=== PATIENT | male | born 1950 | race Caucasian/White ===

== ENCOUNTER 2016-06-26 09:12 | Inpatient (IN) | payer MEDICARE ==
[2016-06-26 09:48] LABS: Basophils % (A) 0 %; CH 29.3; CHCM 34.2; Eosinophils # (A) 0.1 k/uL (0-0.7); Eosinophils % (A) 2 %; HCT 36.6 % (39.0-53.0); HDW 2.64; HGB 12.4 gm/dL (13.0-17.5); Luc # (Auto) 0.25; Luc % (Auto) 3; Lymphocytes # (A) 2.1 k/uL (1.0-4.8); Lymphocytes % (A) 29 %; MCHC 33.8 g/dL (31.0-37.0); MCV 85.9 fL (80.0-100.0); Mean Platelet Volume 6.2; Monocytes # (A) 0.8 k/uL (0-1.0); Monocytes % (A) 11 %; Neutrophils # (A) 3.9 k/uL (1.3-7.7); Neutrophils % (A) 54 %; RBC 4.26 m/uL (4.30-5.90); WBC 7.2 k/uL (3.8-10.6); WBC (Perox) 7.52
[2016-06-26 09:52] LABS: Partial Thromboplastin Time 26.2 sec (22.0-30.0); Prothrombin Time 10.2 sec (9.0-12.0)
--- NOTE | 2016-06-26 09:56 | XR ---
EXAMINATION TYPE: XR chest 2V DATE OF EXAM: 06/26/2016 9:47 AM COMPARISON: 02/21/2016 INDICATION: TECHNIQUE: 2 view chest FINDINGS: The heart size is normal. The pulmonary vasculature is normal. The lungs are clear. IMPRESSION: 1. No acute pulmonary process.
[2016-06-26 10:00] LABS: ALT 17 U/L (21-72); AST 15 U/L (17-59); Alkaline Phosphatase 65 U/L (38-126); Anion Gap 12 mmol/L; Blood Urea Nitrogen 6 mg/dL (9-20); Calcium 9.2 mg/dL (8.4-10.2); Carbon Dioxide 20 mmol/L (22-30); Chloride 90 mmol/L (98-107); Glucose 126 mg/dL (74-99); Magnesium 1.7 mg/dL (1.6-2.3); Non-African American GFR(MDRD) >60 (>60 ml/min/1.73 sqM); Sodium 122 mmol/L (137-145); Total Bilirubin 0.5 mg/dL (0.2-1.3); Total Protein 7.1 g/dL (6.3-8.2)
--- NOTE | 2016-06-26 10:06 | ED ---
General Adult HPI - General Chief complaint: Chest Pain Stated complaint: Chest Pain Time Seen by Provider: 06/26/16 09:15 Source: patient, RN notes reviewed, old records reviewed Mode of arrival: wheelchair Limitations: no limitations - History of Present Illness Initial comments: This is a 65-year-old male here for evaluation. Patient presents here for evaluation of not feeling well. Weakness, nausea vomiting diarrhea. Occasional fevers. Chest pain and abdominal pain. Nausea. Patient states he has history of hiatal hernia and history of heart attack. Patient states he has not been feeling well for about a week and getting progressively worse. Patient at this time denies specific chest pain or shortness of breath. He states he may or may not have on and off fever at home. No modifying factors for symptoms - Related Data Home Medications Medication Instructions Recorded Confirmed ALPRAZolam [Xanax] 0.25 mg PO TID PRN 07/12/13 06/26/16 Carisoprodol [Soma] 350 mg PO TID PRN 07/12/13 06/26/16 Metoprolol Tartrate [Lopressor] 25 mg PO BID 07/12/13 06/26/16 Simvastatin [Zocor] 40 mg PO HS 07/12/13 06/26/16 Temazepam [Restoril] 30 mg PO HS PRN 07/12/13 06/26/16 Amitriptyline HCl 10 mg PO HS 01/26/16 06/26/16 Nitroglycerin Sl Tabs [Nitrostat] 0.4 mg SUBLINGUAL Q5M PRN 01/28/16 06/26/16 Brimonidine Tartrate [Alphagan P 1 drops BOTH EYES BID 02/20/16 06/26/16 0.2% Ophth Soln] Buta/APAP/Caf/Cod [id number] 1 cap PO Q8H PRN 02/20/16 06/26/16 [Fioricet w/Cod 87-069-90-30MG] Latanoprost [Xalatan 0.005%] 1 drop BOTH EYES HS 02/20/16 06/26/16 Aspirin [Adult Low Dose Aspirin EC] 81 mg PO BID 06/26/16 06/26/16 Losartan Potassium [Cozaar] 50 mg PO DAILY 06/26/16 06/26/16 Pantoprazole Sodium 40 mg PO BID 06/26/16 06/26/16 Sucralfate [Carafate] 1 gm PO BID 06/26/16 06/26/16 Previous Rx's Medication Instructions Recorded Ondansetron Odt [Zofran ODT] 4 mg PO Q8HR PRN #5 tab 02/21/16 Allergies Allergy/AdvReac Type Severity Reaction Status Date / Time No Known Allergies Allergy Verified 06/26/16 09:38 Review of Systems ROS Statement: Those systems with pertinent positive or pertinent negative responses have been documented in the HPI. ROS Other: All systems not noted in ROS Statement are negative. Past Medical History Past Medical History: Coronary Artery Disease (CAD), Chest Pain / Angina, Eye Disorder, GERD/Reflux, Hyperlipidemia, Hypertension, Myocardial Infarction ([place]) Additional Past Medical History / Comment(s): SVT with ablation, gastric ulcers , bilateral glaucoma, sinusitis, migraines, anemia, hiatal hernia chronic back pain, past fx ribs/sternum Last Myocardial Infarction Date:: 1999 History of Any Multi-Drug Resistant Organisms: None Reported Past Surgical History: Cardiac Ablation, Heart Catheterization With Stent Additional Past Surgical History / Comment(s): sinus surgery, cataracts bilaterally with lens implants, EGDs/colonoscopies, sinus surgery due to accident. Past Anesthesia/Blood Transfusion Reactions: No Reported Reaction Additional Past Anesthesia/Blood Transfusion Reaction / Comment(s): Pt has had past multiple transfusions without reaction. Date of Last Stent Placement:: 1999 Past Psychological History: No Psychological Hx Reported Additional Psychological History / Comment(s): Pt resides with his spouse. 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 He is independent. Smoking Status: Former smoker Past Alcohol Use History: None Reported Additional Past Alcohol Use History / Comment(s): Pt states he started smoking in 1993 and quit in 1999 Past Drug Use History: None Reported - Past Family History Father Additional Family Medical History / Comment(s): Father at the age of 68yrs from a ruptured aortic aneurysm. Mother Family Medical History: Hyperlipidemia, Hypertension Additional Family Medical History / Comment(s): Mother lived into her 80's. General Exam Limitations: no limitations General appearance: alert, in no apparent distress Head exam: Present: atraumatic, normocephalic, normal inspection Eye exam: Present: normal appearance, PERRL, EOMI. Absent: scleral icterus, conjunctival injection, periorbital swelling ENT exam: Present: normal exam, mucous membranes moist Neck exam: Present: normal inspection. Absent: tenderness, meningismus, lymphadenopathy Respiratory exam: Present: normal lung sounds bilaterally. Absent: respiratory distress, wheezes, rales, rhonchi, stridor Cardiovascular Exam: Present: regular rate, normal rhythm, normal heart sounds. Absent: systolic murmur, diastolic murmur, rubs, gallop, clicks GI/Abdominal exam: Present: soft, normal bowel sounds. Absent: distended, tenderness, guarding, rebound, rigid Extremities exam: Present: normal inspection, full ROM, normal capillary refill. Absent: tenderness, pedal edema, joint swelling, calf tenderness Back exam: Present: normal inspection Neurological exam: Present: alert, oriented X3, CN II-XII intact Psychiatric exam: Present: normal affect, normal mood Skin exam: Present: warm, dry, intact, normal color. Absent: rash Course Vital Signs 06/26/16 06/26/16 09:21 10:14 Temperature 97.8 F Pulse Rate 69 63 Respiratory 16 16 Rate Blood Pressure 168/83 150/79 O2 Sat by Pulse 99 97 Oximetry - Reevaluation(s) Reevaluation #1: 06/26/16 10:41 patient still weak, fatigued, lethargic EKG Findings - EKG Comments: EKG Findings:: EKG shows normal sinus rhythm rate of 66, MN 184, QRS 86, QTC 417 Medical Decision Making - Medical Decision Making 65 male to the ED for weakness, intractable NV, and dehydration, patient has hyponatemia and will keep for IV resuscitation - Lab Data Result diagrams: 06/26/16 09:25 06/26/16 09:25 Lab Results 06/26/16 06/26/16 06/26/16 Range/Units 09:25 09:25 09:25 WBC 7.2 (3.8-10.6) k/uL RBC 4.26 L (4.30-5.90) m/uL Hgb 12.4 L (13.0-17.5) gm/dL Hct 36.6 L (39.0-53.0) % MCV 85.9 (80.0-100.0) fL MCH 29.0 (25.0-35.0) pg MCHC 33.8 (31.0-37.0) g/dL RDW 14.0 (11.5-15.5) % Plt Count 437 (150-450) k/uL Neutrophils % 54 % Lymphocytes % 29 % Monocytes % 11 % Eosinophils % 2 % Basophils % 0 % Neutrophils # 3.9 (1.3-7.7) k/uL Lymphocytes # 2.1 (1.0-4.8) k/uL Monocytes # 0.8 (0-1.0) k/uL Eosinophils # 0.1 (0-0.7) k/uL Basophils # 0.0 (0-0.2) k/uL PT (9.0-12.0) sec INR (<1.1) APTT (22.0-30.0) sec Sodium 122 L (137-145) mmol/L Potassium 4.0 (3.5-5.1) mmol/L Chloride 90 L (98-107) mmol/L Carbon Dioxide 20 L (22-30) mmol/L Anion Gap 12 mmol/L BUN 6 L (9-20) mg/dL Creatinine 0.55 L (0.66-1.25) mg/dL Est GFR (MDRD) Af Amer >60 (>60 ml/min/1.73 sqM) Est GFR (MDRD) Non-Af >60 (>60 ml/min/1.73 sqM) Glucose 126 H (74-99) mg/dL Calcium 9.2 (8.4-10.2) mg/dL Magnesium 1.7 (1.6-2.3) mg/dL Total Bilirubin 0.5 (0.2-1.3) mg/dL AST 15 L (17-59) U/L ALT 17 L (21-72) U/L Alkaline Phosphatase 65 (38-126) U/L NT-Pro-B Natriuret Pep 74 pg/mL Total Protein 7.1 (6.3-8.2) g/dL Albumin 4.3 (3.5-5.0) g/dL Lipase 137 (23-300) U/L 06/26/16 Range/Units 09:25 WBC (3.8-10.6) k/uL RBC (4.30-5.90) m/uL Hgb (13.0-17.5) gm/dL Hct (39.0-53.0) % MCV (80.0-100.0) fL MCH (25.0-35.0) pg MCHC (31.0-37.0) g/dL RDW (11.5-15.5) % Plt Count (150-450) k/uL Neutrophils % % Lymphocytes % % Monocytes % % Eosinophils % % Basophils % % Neutrophils # (1.3-7.7) k/uL Lymphocytes # (1.0-4.8) k/uL Monocytes # (0-1.0) k/uL Eosinophils # (0-0.7) k/uL Basophils # (0-0.2) k/uL PT 10.2 (9.0-12.0) sec INR 1.0 (<1.1) APTT 26.2 (22.0-30.0) sec Sodium (137-145) mmol/L Potassium (3.5-5.1) mmol/L Chloride (98-107) mmol/L Carbon Dioxide (22-30) mmol/L Anion Gap mmol/L BUN (9-20) mg/dL Creatinine (0.66-1.25) mg/dL Est GFR (MDRD) Af Amer (>60 ml/min/1.73 sqM) Est GFR (MDRD) Non-Af (>60 ml/min/1.73 sqM) Glucose (74-99) mg/dL Calcium (8.4-10.2) mg/dL Magnesium (1.6-2.3) mg/dL Total Bilirubin (0.2-1.3) mg/dL AST (17-59) U/L ALT (21-72) U/L Alkaline Phosphatase (38-126) U/L NT-Pro-B Natriuret Pep pg/mL Total Protein (6.3-8.2) g/dL Albumin (3.5-5.0) g/dL Lipase (23-300) U/L - Radiology Data Radiology results: report reviewed (CXR is negative for acute disease), image reviewed Disposition Clinical Impression: Abdominal pain, Hyponatremia, Dehydration, Atypical chest pain, Intractable nausea and vomiting Disposition: ADMITTED IP TO THIS [facility] Condition: Fair Referrals: Garrison Yuen MD [Primary Care Provider] - 1-2 days
[2016-06-26 10:30] LABS: Creatine Kinase 54 U/L (55-170)
[2016-06-26] MEDS ORDERED: ONDANSETRON 4 MG/2 ML VIAL IVP STA (10:38)
[2016-06-26] MEDS ORDERED: SODIUM CHLORIDE 0.9% 1,000 ML IV STA ×2 (10:38)
[2016-06-26] MEDS ORDERED: PANTOPRAZOLE 40 MG/10 ML VIAL IVP STA (10:38)
[2016-06-26] MEDS ORDERED: MORPHINE SULFATE 4 MG/ML SYRINGE IVP STA (10:38)
[2016-06-26] MEDS ORDERED: SODIUM CHLORIDE 0.9% 500 ML IV STA (10:38)
[2016-06-26 10:42] LABS: Creatine Kinase MB 1.2 ng/mL (0.0-2.4); Troponin I <0.012 ng/mL (0.000-0.034)
[2016-06-26] MEDS ORDERED: NITROGLYCERIN SL TABS 0.4 MG TAB SUBLINGUAL PRN (14:43)
[2016-06-26] MEDS ORDERED: BUTA/APAP/CAF/COD 50-325-40-30 CAP PO PRN (14:43)
[2016-06-26] MEDS ORDERED: CARISOPRODOL 350 MG TAB PO PRN (14:43)
[2016-06-26 14:48] VITALS: BMI 24.4
[2016-06-26] MEDS: MORPHINE SULFATE 4 MG/ML SYRINGE IVP PRN ×3 (15:12→23:28)
[2016-06-26] MEDS: ONDANSETRON 4 MG/2 ML VIAL IVP PRN (17:57)
[2016-06-26] MEDS: METOPROLOL TARTRATE 25 MG TAB PO SCH (20:18)
[2016-06-26] MEDS: ASPIRIN 81 MG CHEW PO SCH (20:18)
[2016-06-26] MEDS: ALPRAZolam 0.25 MG TAB PO PRN (20:23)
[2016-06-26] MEDS ORDERED: LATANOPROST 0.005% OPHTH DROPS 2.5 ML BTL BOTH EYES SCH (21:00)
[2016-06-26] MEDS ORDERED: AMITRIPTYLINE HCL 10 MG TAB PO SCH (21:00)
[2016-06-26] MEDS ORDERED: ATORVASTATIN 20 MG TAB PO SCH (21:00)
[2016-06-26] MEDS: BRIMONIDINE TARTRATE 0.2% DROPS 5 ML BTL BOTH EYES SCH (22:26)
[2016-06-27] MEDS: ONDANSETRON 4 MG/2 ML VIAL IVP PRN ×3 (00:49→12:33)
[2016-06-27 01:44] VITALS: RESP 16
[2016-06-27] MEDS: SODIUM CHLORIDE TAB 1 GM TAB PO SCH ×2 (04:03→07:48)
[2016-06-27] MEDS: MORPHINE SULFATE 4 MG/ML SYRINGE IVP PRN ×3 (04:05→12:28)
[2016-06-27] MEDS: METOPROLOL TARTRATE 25 MG TAB PO SCH (07:48)
[2016-06-27] MEDS: BRIMONIDINE TARTRATE 0.2% DROPS 5 ML BTL BOTH EYES SCH (07:49)
[2016-06-27] MEDS: ASPIRIN 81 MG CHEW PO SCH (07:49)
[2016-06-27] MEDS: ALPRAZolam 0.25 MG TAB PO PRN ×2 (08:03→16:24)
[2016-06-27] MEDS ORDERED: LOSARTAN 50 MG TAB PO SCH (09:00)
[2016-06-27] MEDS ORDERED: PANTOPRAZOLE 40 MG/10 ML VIAL IVP SCH (09:00)
--- NOTE | 2016-06-27 10:36 | HP ---
DATE OF ADMISSION: 06/26/2016 PRESENTING COMPLAINT: Epigastric pain. HISTORY OF PRESENTING COMPLAINT: This is a pleasant 65-year-old patient known to me from a prior visit. Patient follows with Dr. Yuen. Patient's chronic stable medical conditions include coronary artery disease with stent, GERD, hypercholesterolemia, hypertension, hiatal hernia. Patient in January had an EGD with Dr. Francia Subramanian, was found to have a duodenal stricture, likely from prior peptic ulcer disease. The patient has been following with Dr. Subramanian, was considering dilatation, but a few months have elapsed. Patient noted that he was having increasing abdominal pain, especially after eating. He said he is afraid to eat and has to wait for quite some time, localized to the epigastrium. REVIEW OF SYSTEMS: CONSTITUTIONAL: Tired. HEENT: None. RESPIRATORY: None. CARDIOVASCULAR: None. GASTROINTESTINAL: As above. GENITOURINARY: None. MUSCULOSKELETAL: None. DERMATOLOGICAL: Some chronic white patches. HEMATOLOGICAL: None. LYMPHATICS: None. PSYCHIATRY: None. NEUROLOGICAL: None. Past medical history of coronary artery disease with stent, GERD, hypercholesterolemia, hypertension, SVT ablation, gastric ulcer, duodenal stricture, hiatal hernia, chronic low back pain. PAST SURGICAL HISTORY: Cardiac ablation. Cardiac cath with stent, cataracts bilaterally, EGD, colonoscopy. 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 Smoked for about 6 years. Family history of hyperlipidemia. Father had ruptured aortic aneurysm. ALLERGIES: None. HOME MEDICATIONS: 1. Restoril 30 mg p.o. q.h.s. p.r.n. 2. Carafate 1 g p.o. b.i.d. 3. Zocor 40 mg p.o. q.h.s. 4. Protonix 40 mg p.o. b.i.d. 5. Zofran 4 mg p.o. q.8 p.r.n. 6. Nitrostat 0.4 sublingual q.5 p.r.n. 7. Lopressor 25 p.o. b.i.d. 8. Cozaar 50 mg p.o. daily. 9. Xalatan 0.5% 1 drop to both eyes at bedtime. 10. Soma 300 mg p.o. t.i.d. p.r.n. 11. Fioricet 1 capsule p.o. q.8 p.r.n. 12. Alphagan 0.2% 1 drop to both eyes b.i.d. 13. Aspirin 81 mg p.o. b.i.d. 14. Amitriptyline 10 mg p.o. q.h.s. 15. Xanax 0.25 p.o. t.i.d. p.r.n. On examination, temperature 97.3, pulse 83, respirations 17, blood pressure 156/93, pulse ox 98% on room air. GENERAL APPEARANCE: Elderly male, lying in bed, not in distress. EYES: pupils equal. Conjunctivae normal. HEENT: Oral cavity normal. NECK: JVD not raised. Mass not palpable. RESPIRATORY: Effort normal. Lungs are clear. CARDIOVASCULAR: First and second sounds normal. No edema. ABDOMEN: Soft, nontender. Liver and spleen not palpable. Mild epigastric tenderness. LYMPHATIC: No lymph node palpable in neck or axillae. PSYCHIATRY: Alert and oriented x3. Mood and affect normal. NEUROLOGICAL: Pupils equal. Cranial nerves grossly intact. Power and sensation grossly intact. INVESTIGATIONS: White count 7.2, hemoglobin 12.4. Sodium 122. Potassium 4. BUN 6, creatinine 0.55. ASSESSMENT: 1. Severe hyponatremia, likely hypoosmolar from poor solid intake and excessive fluid intake. 2. Coronary artery disease with prior history of coronary stent. 3. Gastroesophageal reflux disease, chronic. 4. Chronic hypercholesterolemia. 5. Essential hypertension. 6. Duodenal stricture, probably causing gastric outlet obstruction, causing one more pain. 7. Chronic low back pain, probably from osteoarthritis. PLAN: At this point, will start the patient on salt tablets, restrict the patient's fluid, check the patient's serum osmolality. We will consult GI with a view to possible dilatation. Care was discussed with the patient. Follow electrolytes closely.
[2016-06-27 12:17] LABS: ALT 22 U/L (21-72); AST 12 U/L (17-59); Alkaline Phosphatase 64 U/L (38-126); Anion Gap 6 mmol/L; Blood Urea Nitrogen 6 mg/dL (9-20); Carbon Dioxide 24 mmol/L (22-30); Chloride 102 mmol/L (98-107); Glucose 92 mg/dL (74-99); Non-African American GFR(MDRD) >60 (>60 ml/min/1.73 sqM); Potassium 4.7 mmol/L (3.5-5.1); Sodium 132 mmol/L (137-145); Total Bilirubin 0.3 mg/dL (0.2-1.3)
[2016-06-27 15:00] VITALS: BP 155/87; PULSE 75; TEMP 98.7
--- NOTE | 2016-06-29 09:43 | DS ---
DATE OF ADMISSION: 06/26/2016 DATE OF DISCHARGE: 06/27/2016 FINAL DIAGNOSIS(ES): 1. Severe hyponatremia, likely hypoosmolar from poor salt intake and aggressive fluid intake. 2. Coronary artery disease with prior history of coronary stent. 3. Gastroesophageal reflux disease chronic. 4. Chronic hypercholesterolemia. 5. Essential hypertension. 6. Duodenal stricture, probably causing some amount of gastric outlet obstruction causing increased pain and low back pain, probably from osteoarthritis. HOSPITAL COURSE: This is a patient who has known duodenal stricture, being followed by Dr. Subramanian as an outpatient. Any surgical intervention is being delayed as he was relatively doing okay. Patient presented with increasing epigastric pain. Coming on gradually when he eats, eventually settled down. Found to have severe found to have significant hyponatremia. Sodium was down to 122. With strict fluid restriction and salt tablets, patient did come up to 132. A detailed discussion was held with the patient and . This will have to see Dr. Subramanian as an outpatient and dilatation can be done. In the meantime, patient was told to stay on a full liquid diet. Abdominal pain is actually better. Patient's serum osmolality was low at 251. The patient was told about the balancing fluid and salt. Patient is doing better at the time of discharge. On examination: No epigastric tenderness. LUNGS: Slightly decreased breath sounds. PSYCH: Alert and oriented x3. Discharge planning more than 35 minutes. DISCHARGE MEDICATIONS: 1. Xanax 0.25 p.o. t.i.d. 2. Soma 350 mg p.o. t.i.d. p.r.n. 3. Lopressor 25 mg p.o. b.i.d. 4. Zocor 40 mg q.h.s. 5. Restoril 30 mg p.o. q.h.s. 6. Amitriptyline 10 mg q.h.s. 7. Nitrostat 0.4 sublingual q.5 p.r.n. 8. Alphagan 0.2% one drop to both eyes b.i.d. 9. Fioricet with codeine 1 capsule p.o. q.8 p.r.n. 10. Xalatan 0.005% one drop to both eyes at bedtime. 11. Zofran 4 mg p.o. q.8 p.r.n. 12. Aspirin 81 mg p.o. b.i.d. 13. Cozaar 50 mg p.o. daily. 14. Protonix 40 mg p.o. b.i.d. 15. Carafate 1 gram p.o. b.i.d. Follow up with Dr. Yuen on 07/11/2016. Follow up with Dr. Francia Subramanian in one week. DIET: Pureed. DC planning more than 35 minutes.
== END 2016-06-27 17:12 | disposition home or self-care (01) | DRG 641 ==
LOC: EC 09:12 → 3SUR 11:22
PROVIDERS: ADMIT Hospitalist; ATTEND Hospitalist
DX: E87.1 Hypo-osmolality and hyponatremia (principal); E86.0 Dehydration; K31.1 Adult hypertrophic pyloric stenosis; K31.5 Obstruction of duodenum; I10 Essential (primary) hypertension; I25.10 Atherosclerotic heart disease of native coronary artery without angina pectoris; E78.00 Pure hypercholesterolemia, unspecified; K21.9 Gastro-esophageal reflux disease without esophagitis; G89.29 Other chronic pain; K44.9 Diaphragmatic hernia without obstruction or gangrene; R19.7 Diarrhea, unspecified; R50.9 Fever, unspecified; D64.9 Anemia, unspecified; R11.2 Nausea with vomiting, unspecified; R53.1 Weakness; M47.816 Spondylosis without myelopathy or radiculopathy, lumbar region; I25.2 Old myocardial infarction; H40.9 Unspecified glaucoma; G43.909 Migraine, unspecified, not intractable, without status migrainosus; E78.5 Hyperlipidemia, unspecified; Z87.11 Personal history of peptic ulcer disease; Z79.82 Long term (current) use of aspirin; Z82.49 Family history of ischemic heart disease and other diseases of the circulatory system; Z96.1 Presence of intraocular lens; Z79.899 Other long term (current) drug therapy; Z95.5 Presence of coronary angioplasty implant and graft; Z79.891 Long term (current) use of opiate analgesic; Z71.3 Dietary counseling and surveillance; Z98.42 Cataract extraction status, left eye; Z98.41 Cataract extraction status, right eye; Z87.891 Personal history of nicotine dependence; Z86.79 Personal history of other diseases of the circulatory system; Z87.828 Personal history of other (healed) physical injury and trauma; Z87.81 Personal history of (healed) traumatic fracture; Z86.19 Personal history of other infectious and parasitic diseases
CPT/HCPCS: 36415; 43239; 71020; 74000; 74160; 78226; 80048; 80053; 81003; 82150; 82550; 82553; 82570; 83690; 83735; 83880; 83930; 83935; 84300; 84443; 84484; 85025; 85610; 85730; 88305; 93005; 96361; 96374; 96375; 96376; 99285

== ENCOUNTER 2016-07-01 09:23 | Inpatient (IN) | payer MEDICARE ==
[2016-07-01] MEDS ORDERED: MORPHINE SULFATE 4 MG/ML SYRINGE IVP STA (09:46)
[2016-07-01] MEDS ORDERED: ONDANSETRON 4 MG/2 ML VIAL IVP STA (09:46)
[2016-07-01] MEDS ORDERED: SODIUM CHLORIDE 0.9% 1,000 ML IV ONE (09:47)
--- NOTE | 2016-07-01 10:04 | ED ---
Abdominal Pain HPI - General Source: patient, RN notes reviewed Mode of arrival: wheelchair Limitations: no limitations <Neville Roldan - Last Filed: 07/01/16 11:07> <Ziyad Gatica - Last Filed: 07/01/16 11:41> - General Chief Complaint: Abdominal Pain Stated Complaint: Abdominal pain vomiting Time Seen by Provider: 07/01/16 09:42 - History of Present Illness Initial Comments: 65-year-old male presents emergency Department chief complaint nausea vomiting diarrhea. Patient states he was discharged last Thursday and he has been sick ever since. Patient states that he cannot keep anything down having increased abdominal pain. Patient has chronic abdominal issues including gastritis, ulcers. Patient had multiple scopes performed of the past. Patient takes 3 medications for his stomach currently. Patient's GI doctor is Dr. Hickman. Patient called for a follow-up appointment but could not get in until and I told him come emergency department because he was getting worse. Patient had hyponatremia on his last ER admission. (Neville Roldan) - Related Data Home Medications Medication Instructions Recorded Confirmed ALPRAZolam [Xanax] 0.25 mg PO TID PRN 07/12/13 07/01/16 Carisoprodol [Soma] 350 mg PO TID PRN 07/12/13 07/01/16 Metoprolol Tartrate [Lopressor] 25 mg PO BID 07/12/13 07/01/16 Simvastatin [Zocor] 40 mg PO HS 07/12/13 07/01/16 Temazepam [Restoril] 30 mg PO HS PRN 07/12/13 07/01/16 Amitriptyline HCl 10 mg PO HS 01/26/16 07/01/16 Nitroglycerin Sl Tabs [Nitrostat] 0.4 mg SUBLINGUAL Q5M PRN 01/28/16 07/01/16 Brimonidine Tartrate [Alphagan P 1 drops BOTH EYES BID 02/20/16 07/01/16 0.2% Ophth Soln] Buta/APAP/Caf/Cod [id number] 1 cap PO Q8H PRN 02/20/16 07/01/16 [Fioricet w/Cod 31-393-45-30MG] Latanoprost [Xalatan 0.005%] 1 drop BOTH EYES HS 02/20/16 07/01/16 Aspirin [Adult Low Dose Aspirin EC] 81 mg PO BID 06/26/16 07/01/16 Losartan Potassium [Cozaar] 50 mg PO DAILY 06/26/16 07/01/16 Pantoprazole Sodium 40 mg PO BID 06/26/16 07/01/16 Sucralfate [Carafate] 1 gm PO BID 06/26/16 07/01/16 Previous Rx's Medication Instructions Recorded Ondansetron Odt [Zofran ODT] 4 mg PO Q8HR PRN #5 tab 02/21/16 Allergies Allergy/AdvReac Type Severity Reaction Status Date / Time No Known Allergies Allergy Verified 07/01/16 09:48 Review of Systems ROS Other: All systems not noted in ROS Statement are negative. <Neville Roldan - Last Filed: 07/01/16 11:07> ROS Other: All systems not noted in ROS Statement are negative. <Ziyad Gatica - Last Filed: 07/01/16 11:41> ROS Statement: Those systems with pertinent positive or pertinent negative responses have been documented in the HPI. Past Medical History Past Medical History: Coronary Artery Disease (CAD), Chest Pain / Angina, Eye Disorder, GERD/Reflux, Hyperlipidemia, Hypertension, Myocardial Infarction ([place]) , Osteoarthritis ([place]) Additional Past Medical History / Comment(s): SVT with ablation, gastric ulcers , chronic duodenal stricture, bilateral glaucoma, sinusitis, migraines, anemia, hiatal hernia, chronic back pain, past fx ribs/sternum Last Myocardial Infarction Date:: 1999 History of Any Multi-Drug Resistant Organisms: None Reported Past Surgical History: Cardiac Ablation, Heart Catheterization With Stent Additional Past Surgical History / Comment(s): sinus surgery, cataracts bilaterally with lens implants, EGDs/colonoscopies, sinus surgery due to accident. Past Anesthesia/Blood Transfusion Reactions: No Reported Reaction Additional Past Anesthesia/Blood Transfusion Reaction / Comment(s): Pt has had past multiple transfusions without reaction. Date of Last Stent Placement:: 1999 Past Psychological History: No Psychological Hx Reported Additional Psychological History / Comment(s): Pt resides with his spouse. 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 He is independent. Smoking Status: Former smoker Past Alcohol Use History: None Reported Additional Past Alcohol Use History / Comment(s): Pt states he started smoking in 1993 and quit in 1999 Past Drug Use History: None Reported - Past Family History Father Additional Family Medical History / Comment(s): Father at the age of 68yrs from a ruptured aortic aneurysm. Mother Family Medical History: Hyperlipidemia, Hypertension Additional Family Medical History / Comment(s): Mother lived into her 80's. <Neville Roldan - Last Filed: 07/01/16 11:07> General Exam Limitations: no limitations General appearance: alert, in no apparent distress Head exam: Present: atraumatic, normocephalic, normal inspection Neck exam: Present: normal inspection, full ROM. Absent: tenderness, meningismus, lymphadenopathy Respiratory exam: Present: normal lung sounds bilaterally. Absent: respiratory distress, wheezes, rales, rhonchi, stridor Cardiovascular Exam: Present: regular rate, normal rhythm, normal heart sounds. Absent: systolic murmur, diastolic murmur, rubs, gallop, clicks GI/Abdominal exam: Present: soft, tenderness (Moderate epigastric tenderness with mild diffuse tenderness), normal bowel sounds. Absent: distended, guarding , rebound, rigid Back exam: Absent: CVA tenderness (R), CVA tenderness (L) Neurological exam: Present: alert, oriented X3, CN II-XII intact Skin exam: Present: warm, dry, intact, normal color. Absent: rash <Neville Roldan - Last Filed: 07/01/16 11:07> Medical Decision Making - Lab Data Result diagrams: 07/01/16 10:02 07/01/16 10:02 <Neville Roldan - Last Filed: 07/01/16 11:07> - Lab Data Result diagrams: 07/01/16 10:02 07/01/16 10:02 <Ziyad Gatica - Last Filed: 07/01/16 11:41> - Medical Decision Making Patient reevaluated by myself, Dr. Gatica. Patient resting comfortably in bed. Abdomen is soft with mild tenderness in the epigastric region. Patient was seen by GI who does recommend admission and scope tomorrow. IV fluids have been provided for hyponatremia. Patient and family were updated on results and plan. Case was discussed in detail with Dr. Tijerina, who will admit for Dr. muro, who admits for Dr. brizuela (Ziyad Gatica) - Lab Data Lab Results 07/01/16 07/01/16 07/01/16 Range/Units 10:02 10:02 10:20 WBC 8.2 (3.8-10.6) k/uL RBC 4.45 (4.30-5.90) m/uL Hgb 12.7 L (13.0-17.5) gm/dL Hct 36.7 L (39.0-53.0) % MCV 82.5 (80.0-100.0) fL MCH 28.6 (25.0-35.0) pg MCHC 34.6 (31.0-37.0) g/dL RDW 13.7 (11.5-15.5) % Plt Count 491 H (150-450) k/uL Neutrophils % 56 % Lymphocytes % 26 % Monocytes % 11 % Eosinophils % 4 % Basophils % 0 % Neutrophils # 4.6 (1.3-7.7) k/uL Lymphocytes # 2.1 (1.0-4.8) k/uL Monocytes # 0.9 (0-1.0) k/uL Eosinophils # 0.3 (0-0.7) k/uL Basophils # 0.0 (0-0.2) k/uL Sodium 115 L* (137-145) mmol/L Potassium 3.8 (3.5-5.1) mmol/L Chloride 82 L (98-107) mmol/L Carbon Dioxide 20 L (22-30) mmol/L Anion Gap 13 mmol/L BUN 5 L (9-20) mg/dL Creatinine 0.52 L (0.66-1.25) mg/dL Est GFR (MDRD) Af Amer >60 (>60 ml/min/1.73 sqM) Est GFR (MDRD) Non-Af >60 (>60 ml/min/1.73 sqM) Glucose 115 H (74-99) mg/dL Calcium 9.2 (8.4-10.2) mg/dL Total Bilirubin 0.6 (0.2-1.3) mg/dL AST 16 L (17-59) U/L ALT 22 (21-72) U/L Alkaline Phosphatase 86 (38-126) U/L Total Protein 7.9 (6.3-8.2) g/dL Albumin 4.8 (3.5-5.0) g/dL Amylase 56 (30-110) U/L Lipase 162 (23-300) U/L Urine Color Yellow Urine Appearance Clear (Clear) Urine pH 6.0 (5.0-8.0) Ur Specific [place] 1.016 (1.001-1.035) Urine Protein Negative (Negative) Urine Glucose (UA) Negative (Negative) Urine Ketones Negative (Negative) Urine Blood Negative (Negative) Urine Nitrite Negative (Negative) Urine Bilirubin Negative (Negative) Urine Urobilinogen <2.0 (<2.0) mg/dL Ur Leukocyte Esterase Negative (Negative) Disposition <Neville Roldan - Last Filed: 07/01/16 11:07> <Ziyad Gatica - Last Filed: 07/01/16 11:41> Clinical Impression: Intractable nausea and vomiting, Hyponatremia, Epigastric pain, Dehydration Disposition: ADMITTED IP TO THIS [facility] Condition: Fair Referrals: Garrison Brizuela MD [Primary Care Provider] - 1-2 days
[2016-07-01 10:18] LABS: Basophils % (A) 0 %; CH 29.5; CHCM 35.8; Eosinophils # (A) 0.3 k/uL (0-0.7); Eosinophils % (A) 4 %; HCT 36.7 % (39.0-53.0); HDW 2.78; HGB 12.7 gm/dL (13.0-17.5); Luc # (Auto) 0.25; Luc % (Auto) 3; Lymphocytes # (A) 2.1 k/uL (1.0-4.8); Lymphocytes % (A) 26 %; MCH 28.6 pg (25.0-35.0); MCHC 34.6 g/dL (31.0-37.0); MCV 82.5 fL (80.0-100.0); Mean Platelet Volume 5.7; Monocytes # (A) 0.9 k/uL (0-1.0); Monocytes % (A) 11 %; Neutrophils # (A) 4.6 k/uL (1.3-7.7); Neutrophils % (A) 56 %; RBC 4.45 m/uL (4.30-5.90); RDW 13.7 % (11.5-15.5); WBC 8.2 k/uL (3.8-10.6); WBC (Perox) 7.72
[2016-07-01 10:28] LABS: ALT 22 U/L (21-72); AST 16 U/L (17-59); Alkaline Phosphatase 86 U/L (38-126); Amylase 56 U/L (30-110); Anion Gap 13 mmol/L; Blood Urea Nitrogen 5 mg/dL (9-20); Calcium 9.2 mg/dL (8.4-10.2); Carbon Dioxide 20 mmol/L (22-30); Chloride 82 mmol/L (98-107); Glucose 115 mg/dL (74-99); Non-African American GFR(MDRD) >60 (>60 ml/min/1.73 sqM); Potassium 3.8 mmol/L (3.5-5.1); Total Bilirubin 0.6 mg/dL (0.2-1.3); Total Protein 7.9 g/dL (6.3-8.2)
[2016-07-01 10:32] LABS: Sodium 115 mmol/L (137-145)
[2016-07-01 10:37] LABS: Appearance,Urine Clear (Clear); Bilirubin,Urine Negative (Negative); Glucose,Urine (UA) Negative (Negative); Ketones,Urine Negative (Negative); Leukocyte Esterase,Urine Negative (Negative); Nitrite,Urine Negative (Negative); Protein,Urine Negative (Negative); Specific Gravity,Urine 1.016 (1.001-1.035); UA Billing (MACRO vs. MICRO) CHEM; Urobilinogen,Urine <2.0 mg/dL (<2.0)
--- NOTE | 2016-07-01 11:00 | XR ---
EXAMINATION TYPE: XR KUB DATE OF EXAM: 07/01/2016 10:38 AM CLINICAL HISTORY: Abdominal pain with nausea and vomiting today. TECHNIQUE: 2 supine KUB images of the abdomen are obtained. COMPARISON: CT abdomen and pelvis as well as abdominal x-ray February 21, 2016. FINDINGS: Scattered gas is seen in non-distended small bowel loops. Gas and fecal material is seen in non-distended colon. There is disc space narrowing with sclerosis and spurring right L4-L5 level r edemonstrated. Visualized lung bases are clear. Moderate joint space loss in both hips is redemonstra tiff. IMPRESSION: Overall nonobstructive bowel gas pattern.
[2016-07-01] MEDS ORDERED: NALOXONE 0.4 MG/ML 1 ML VIAL IV PRN (11:08)
[2016-07-01] MEDS ORDERED: ONDANSETRON 4 MG/2 ML VIAL IVP PRN (11:08)
--- NOTE | 2016-07-01 12:35 | P.CONS ---
History of Present Illness - Reason for Consult Consult date: 07/01/16 nausea abdominal pain unable to meet nutritional need Requesting physician: Simone Walters - History of Present Illness 65 year old male with history of peptic ulcer disease, CAD, IL, arrhythmia, reticulosis, chronic back pain, GERD, chronic epigastric pain more than 3 years with exacerbation over the last several months, persistent nausea and intermittent nonbloody emesis. He underwent EGD evaluation January 2016 with findings of mild narrowing of the duodenal sweep suggestive of early duodenal stricture with advancement of scope easily into the second portion of the duodenum which appeared normal. No ulcers were seen. Previous EGD exam in [address] Marcus reported evidence of nonbleeding duodenal and pyloric channel ulcer. Presents with persistent chronic midepigastric pain with nausea times emesis unable to meet nutritional needs. Denies fever chills hematemesis, hematochezia, or melena. Recently discharged secondary to profound hyponatremia. Current sodium 115. Upon review of medical records weight has fluctuated 2-3 kg without significant loss. Hemoglobin 12.7. WBC 8.2. Review of Systems Constitutional: Denies fever, chills, sweats, weight gain, or loss. HEENT: History of migraines, blurred vision or loss, earaches, drainage, tinnitus, oral mucosal lesions, dysphagia, or odynophagia. Cardiac: CAD. Hyperlipidemia. IL. Hypertension. Arrhythmia. Negative for chest pain, arrhythmias, or palpitation. Respiratory: Negative for shortness of breath, hemoptysis, cough, or sputum production. Gastrointestinal: See HPI for pertinent findings. Genitourinary: Negative for hematuria, urgency, frequency, polyuria, dysuria, or penile discharge. Musculoskeletal: Chronic back pain.. Neurologic: Negative for stroke or TIA. Endocrine: Negative for thyroid problems. Skin: Negative for rash or itching. Psychiatric: Negative history for depression and anxiety All systems: negative (see HPI) Past Medical History Past Medical History: Coronary Artery Disease (CAD), Chest Pain / Angina, Eye Disorder, GERD/Reflux, Hyperlipidemia, Hypertension, Myocardial Infarction (IL) , Osteoarthritis (OA) Additional Past Medical History / Comment(s): SVT with ablation, gastric ulcers , chronic duodenal stricture, bilateral glaucoma, sinusitis, migraines, anemia, hiatal hernia, chronic back pain, past fx ribs/sternum Last Myocardial Infarction Date:: 1999 History of Any Multi-Drug Resistant Organisms: None Reported Past Surgical History: Cardiac Ablation, Heart Catheterization With Stent Additional Past Surgical History / Comment(s): sinus surgery, cataracts bilaterally with lens implants, EGDs/colonoscopies, sinus surgery due to accident. Past Anesthesia/Blood Transfusion Reactions: No Reported Reaction Additional Past Anesthesia/Blood Transfusion Reaction / Comm: Pt has had past multiple transfusions without reaction. Date of Last Stent Placement:: 1999 Past Psychological History: No Psychological Hx Reported Additional Psychological History / Comment(s): Pt resides with his spouse. 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 He is independent. Smoking Status: Former smoker Past Alcohol Use History: None Reported Additional Past Alcohol Use History / Comment(s): Pt states he started smoking in 1993 and quit in 1999 Past Drug Use History: None Reported - Past Family History Father Additional Family Medical History / Comment(s): Father at the age of 68yrs from a ruptured aortic aneurysm. Mother Family Medical History: Hyperlipidemia, Hypertension Additional Family Medical History / Comment(s): Mother lived into her 80's. Medications and Allergies Home Medications Medication Instructions Recorded Confirmed Type ALPRAZolam [Xanax] 0.25 mg PO TID PRN 07/12/13 07/01/16 History Carisoprodol [Soma] 350 mg PO TID PRN 07/12/13 07/01/16 History Metoprolol Tartrate [Lopressor] 25 mg PO BID 07/12/13 07/01/16 History Simvastatin [Zocor] 40 mg PO HS 07/12/13 07/01/16 History Temazepam [Restoril] 30 mg PO HS PRN 07/12/13 07/01/16 History Amitriptyline HCl 10 mg PO HS 01/26/16 07/01/16 History Nitroglycerin Sl Tabs [Nitrostat] 0.4 mg SUBLINGUAL Q5M PRN 01/28/16 07/01/16 History Brimonidine Tartrate [Alphagan P 1 drops BOTH EYES BID 02/20/16 07/01/16 History 0.2% Ophth Soln] Buta/APAP/Caf/Cod 56-321-40-30 1 cap PO Q8H PRN 02/20/16 07/01/16 History [Fioricet w/Cod 38-048-84-30MG] Latanoprost [Xalatan 0.005%] 1 drop BOTH EYES HS 02/20/16 07/01/16 History Aspirin [Adult Low Dose Aspirin EC] 81 mg PO BID 06/26/16 07/01/16 History Losartan Potassium [Cozaar] 50 mg PO DAILY 06/26/16 07/01/16 History Pantoprazole Sodium 40 mg PO BID 06/26/16 07/01/16 History Sucralfate [Carafate] 1 gm PO BID 06/26/16 07/01/16 History Allergies Allergy/AdvReac Type Severity Reaction Status Date / Time atorvastatin [From Lipitor] AdvReac Unknown Verified 07/02/16 00:52 Physical Exam - Constitutional General appearance: no acute distress - EENT Eyes: normal appearance - Respiratory Respiratory: bilateral: CTA - Cardiovascular Rhythm: regular Heart sounds: normal: S1, S2 - Gastrointestinal midepigastric tenderness without rebound or guarding General gastrointestinal: soft Results CBC & Chem 7: 07/01/16 10:02 07/02/16 05:58 Abdominal x-ray: report reviewed (reviewed by Dr. Subramanian) Assessment and Plan (1) Epigastric pain Status: Acute (2) Duodenal stricture Status: Acute (3) Hyponatremia Status: Acute Plan: 1. Protonix [address] abd/pelvis with IV/oral contrast rule out bowel/ pancreatic pathology. 2. Tentative EGD tomorrow with serum sodium improvement. Thank you for this consultation . Consultation discussed and directed by Dr. Subramanian.
[2016-07-01] MEDS ORDERED: RX INFO: IV CONTRAST WAS GIVEN 1 EACH MISC MISCELLANE PRN (12:46)
[2016-07-01] MEDS ORDERED: IOHEXOL 350 MG/ML 25 ML BOTTLE (ORAL USE) PO PRN (12:46)
[2016-07-01] MEDS: MORPHINE SULFATE 4 MG/ML SYRINGE IV PRN ×3 (13:54→22:16)
[2016-07-01] MEDS: SODIUM CHLORIDE 0.9% 1,000 ML IV SCH ×2 (13:56→18:06)
--- NOTE | 2016-07-01 14:10 | CT ---
EXAMINATION TYPE: CT abdomen w con DATE OF EXAM: 07/01/2016 1:56 PM COMPARISON: CT abdomen January HISTORY: Epigastric pain and duodenal stricture CT DLP: 894.1 mGycm Automated exposure control for dose reduction was used. TECHNIQUE: Helical acquisition of images was performed from the lung bases through the top of iliac crest to include entire abdomen. CONTRAST: Performed with Oral Contrast and with IV Contrast, patient injected with 100 mL of Omnipaque 300. FINDINGS: LUNG BASES: Calcified granuloma is stable of the right lower lobe medially in the subpleural location , no pleural or pericardial effusion, small hiatal hernia may be present. LIVER/GB: The liver shows low attenuation. Gallbladder shows no evident stone. PANCREAS: No significant abnormality is seen. SPLEEN: No significant abnormality is seen. ADRENALS: No significant abnormality is seen. KIDNEYS: Cystic foci are stable. There is no hydronephrosis. No evident ureteral calculus. BOWEL: The appearance of the gastroduodenal junction and proximal duodenum is stable, there may be a diverticulum or possibly ulcer, findings may be due to patient's known stricture at the gastric antr um or gastroduodenal junction. Appendix is normal in its visualized portion. LYMPH NODES: No significant abnormality is appreciated. OSSEOUS STRUCTURES: Degenerative disc changes, spinal curvature again noted. FREE AIR: No Free Air visible ASCITES: None visible. RETROPERITONEAL ADENOPATHY: No Retroperitoneal Adenopathy visible. OTHER: No significant abnormality evident IMPRESSION: THERE IS SIMILAR FINDINGS TO PRIOR EXAM. DISTORTION AT THE GASTRODUODENAL JUNCTION, PROXIMAL DUODENUM IS AGAIN NOTED DESCRIBED. CONSIDER ENDOSCOPIC EVALUATION. THERE MAY BE UNDERLYING HEPATOCELLULAR DISEASE, FATTY INFILTRATION OF THE LIVER. POSSIBLE GRANULOMATOUS DISEASE. ADDITIONAL FINDINGS ABOVE.
[2016-07-01] MEDS ORDERED: CARISOPRODOL 350 MG TAB PO PRN (15:33)
[2016-07-01] MEDS ORDERED: NITROGLYCERIN SL TABS 0.4 MG TAB SUBLINGUAL PRN (15:33)
[2016-07-01] MEDS ORDERED: BUTA/APAP/CAF/COD 50-325-40-30 CAP PO PRN (15:33)
[2016-07-01 17:54] LABS: Creatinine,Urine Random 13.9 mg/dL
[2016-07-01] MEDS: ONDANSETRON ODT 4 MG TAB PO PRN (18:02)
[2016-07-01] MEDS: PANTOPRAZOLE 40 MG TABLET PO SCH (20:15)
[2016-07-01] MEDS: ALPRAZolam 0.25 MG TAB PO PRN (20:16)
[2016-07-01] MEDS: ASPIRIN 81 MG CHEW PO SCH (20:16)
[2016-07-01] MEDS: METOPROLOL TARTRATE 25 MG TAB PO SCH (20:16)
[2016-07-01] MEDS: BRIMONIDINE TARTRATE 0.2% DROPS 5 ML BTL BOTH EYES SCH (20:43)
[2016-07-01] MEDS: LATANOPROST 0.005% OPHTH DROPS 2.5 ML BTL BOTH EYES SCH (20:44)
[2016-07-01] MEDS: SUCRALFATE 1 GM TAB PO SCH (20:45)
[2016-07-01] MEDS: AMITRIPTYLINE HCL 10 MG TAB PO SCH (20:45)
[2016-07-01 20:58] VITALS: RESP 16
[2016-07-01] MEDS ORDERED: ATORVASTATIN 20 MG TAB PO SCH (21:00)
[2016-07-02] MEDS: MORPHINE SULFATE 4 MG/ML SYRINGE IV PRN ×5 (02:15→21:34)
[2016-07-02] MEDS: ONDANSETRON ODT 4 MG TAB PO PRN ×2 (02:47→21:27)
[2016-07-02] MEDS: SODIUM CHLORIDE 0.9% 1,000 ML IV SCH ×3 (04:28→22:18)
[2016-07-02] MEDS: ALPRAZolam 0.25 MG TAB PO PRN ×3 (05:15→21:34)
[2016-07-02] MEDS: SUCRALFATE 1 GM TAB PO SCH ×2 (06:24→16:16)
[2016-07-02] MEDS: PANTOPRAZOLE 40 MG TABLET PO SCH ×2 (06:25→16:16)
[2016-07-02 07:15] LABS: Anion Gap 9 mmol/L; Blood Urea Nitrogen 4 mg/dL (9-20); Carbon Dioxide 23 mmol/L (22-30); Chloride 95 mmol/L (98-107); Glucose 95 mg/dL (74-99); Non-African American GFR(MDRD) >60 (>60 ml/min/1.73 sqM); Potassium 4.7 mmol/L (3.5-5.1); Sodium 127 mmol/L (137-145)
--- NOTE | 2016-07-02 08:15 | HP ---
DATE OF ADMISSION: 07/01/2016 The patient is a 65 -year-old came in with chronic epigastric abdominal pain and a stricture ( ) duodenal stricture possibly from his peptic ulcer disease came in with complaints of severe nausea and vomiting. The patient was recently discharged from the hospital. The patient unable to maintain nutritional needs. Patient denied any fever or chills. The patient denied any diarrhea. Patient has multiple episodes of nonbloody diarrhea. Denied any hematemesis, ( ) patient found to have profound hypernatremia with sodium of 150. Patient was started on IV fluids. Patient is admitted. Patient probably will need upper GI endoscopy with dilatation of the stricture. The patient had a CT scan of the abdomen which showed a suspicious lesion in that area. REVIEW OF SYSTEMS: CONSTITUTIONAL: No fever, no malaise, no fatigue. HEENT: No recent visual problems or hearing problems. Denied any sore throat. CARDIOVASCULAR: No chest pain, orthopnea, PND, no palpitations, no syncope. PULMONARY: No shortness of breath, no cough, no hemoptysis. GASTROINTESTINAL: As described in history of present illness. NEUROLOGICAL: No headaches, no weakness, no numbness. HEMATOLOGICAL: Denies any bleeding or petechiae. GENITOURINARY: Denies any burning micturition, frequency, or urgency. MUSCULOSKELETAL/RHEUMATOLOGICAL: Denies any joint pain, swelling, or any muscle pain. ENDOCRINE: Denies any polyuria or polydipsia. The rest of the 14 point review of systems is negative. PAST MEDICAL HISTORY: Coronary artery disease, gastroesophageal reflux disease, hyperlipidemia, hypertension, myocardial infarction, ( ) osteoarthritis, ( ) with ablation, peptic ulcer disease leading to duodenal stricture, migraines, anemia, hiatal hernia and chronic low back pain. PAST MEDICAL HISTORY: Cardiac ablation surgery, cardiac catheterization and stent placement in the past. SOCIAL HISTORY: Former smoker. Quit smoking years ago. Denies any alcohol abuse or drug abuse. Quit in 1999. Quit smoking in 1999. FAMILY HISTORY: Father at age 68 of rupture ( ), mother had hyperlipidemia, hypertension. Home medications: 1. ( ). 2. ( ). 3. Simvastatin. 4. Metoprolol. 5. Temazepam. 6. Amitriptyline. 7. Nitroglycerine. 8. Brimonidine. 9. Fioricet. 10. Latanoprost. 11. Aspirin. 12. Losartan. 13. Pantoprazole. 14. Sucralfate. PHYSICAL EXAMINATION: VITAL SIGNS: Temperature 98.0, pulse 71. Respiratory rate 18. Blood pressure is 162/83, saturating at 96% on room air. GENERAL: The patient is alert and oriented x3, not in any acute distress. Well developed, well nourished. HEENT: Pupils are round and equally reacting to light. EOMI. No scleral icterus. No conjunctival pallor. Normocephalic, atraumatic. No pharyngeal erythema. No thyromegaly. CARDIOVASCULAR: S1 and S2 present. No murmurs, rubs, or gallops. PULMONARY: Chest is clear to auscultation, no wheezing or crackles. ABDOMEN: Soft, nontender, nondistended, normoactive bowel sounds. No palpable organomegaly. MUSCULOSKELETAL: No joint swelling or deformity. EXTREMITIES: No cyanosis, clubbing, or pedal edema. NEUROLOGICAL: Gross neurological examination did not reveal any focal deficits. SKIN: No rashes. LABORATORY DATA: CBC, CMP are abnormal for mildly low hemoglobin 12.7 and a sodium of 115, chloride of 82, anion gap of 13 and I do not have any lactic acid but I am pretty sure patient has lactic acidosis secondary to profound dehydration. Urinary sodium is 96 though but this is probably after IV fluid resuscitation because of which this is unreliable lab. Urinary creatinine is 13.9, urine serum osmolarity 238. ASSESSMENT AND PLAN: 1. Hyponatremia in spite of urinary sodium being 96. I still believe it is severely hypovolemic hyponatremia because of persistent nausea and vomiting from stricture. The patient will be aggressively hydrated ( ) normal saline. Repeat electrolytes tomorrow. Patient probably will need upper endoscopy tomorrow and dilatation of the stricture. 2. Nausea, vomiting, secondary to suspicious lesion. 3. Severe peptic ulcer disease, the patient is on proton pump inhibitors as well as Simethicone. 4. Coronary artery disease. 5. Hyperlipidemia. 6. Hypertension. 7. Osteoarthritis. 8. Supraventricular tachycardia in the past status post ablation. For the above mentioned chronic medical problems, I will go ahead and continue his home medications. Patient is being continued on aspirin, but patient is on two acid reducers as mentioned earlier. Lopressor will be continued, I will hold off on losartan because of concerns of intravascular volume depletion in spite of elevated blood pressure.
[2016-07-02] MEDS: ASPIRIN 81 MG CHEW PO SCH ×2 (08:54→21:24)
[2016-07-02] MEDS: BRIMONIDINE TARTRATE 0.2% DROPS 5 ML BTL BOTH EYES SCH ×2 (08:54→21:26)
[2016-07-02] MEDS: METOPROLOL TARTRATE 25 MG TAB PO SCH ×2 (08:54→21:26)
[2016-07-02] MEDS ORDERED: PANTOPRAZOLE 40 MG/10 ML VIAL IV SCH (09:00)
[2016-07-02 11:45] VITALS: BMI 23.3
[2016-07-02] MEDS ORDERED: LACTATED RINGERS 1,000 ML IV ONE (14:24)
[2016-07-02] MEDS ORDERED: PROPOFOL 10 MG/ML 20 ML VIAL IV ONE (15:05)
--- NOTE | 2016-07-02 15:16 | P.PCN ---
Date of Procedure: 07/02/16 Procedure(s) Performed: BRIEF HISTORY: Patient is a 65-year-old, pleasant, white male, scheduled for an upper endoscopy as a part of evaluation of epigastric pain as well as intermittent nausea vomiting for the last several months duration. His last upper endoscopy was in January 2016 and he was noted to have benign the duodenal stricture. In view of was in symptoms he scheduled for an upper endoscopy with possible dilation today. PROCEDURE PERFORMED: Esophagogastroduodenoscopy and biopsy. PREOPERATIVE DIAGNOSIS: Intermittent nausea vomiting and weight loss. IV sedation per anesthesia. PROCEDURE: After informed consent was obtained, the patient was brought into the endoscopy unit. IV sedation was administered by Anesthesia under continuous monitoring. Initially the Olympus GIF-140 video endoscope was inserted into the mouth. Esophagus intubated without any difficulty. It was gradually advanced into the stomach and duodenum and carefully examined. Along the duodenal sweep there was a benign-appearing duodenal stricture identified but the scope could be advanced to this area without any difficulty. second part of the duodenum appeared normal. The scope at this time was withdrawn to the stomach, adequately insufflated with air, and upon careful examination, mucosa of the antrum, body, cardia and the fundus appeared normal. The scope was then withdrawn into the esophagus. Small hiatal hernia noted. The GE junction was located at 39 cm from the incisors. There were linear erosions noted in the distal esophagus consistent with LA grade B reflux esophagitis. The rest of the esophagus appeared normal and the patient tolerated the procedure well. IMPRESSION: 1. Benign-appearing duodenal stricture along the duodenal sweep with no impedance to the passage of the scope. 2. Linear erosions in the distal esophagus consistent with LA grade B reflux esophagitis. 3. No esophageal stricture.. RECOMMENDATIONS: The findings of this examination were discussed with the patient well as his family. At this time he will be continued on Protonix 40 mg twice daily and diet will be advanced as tolerated..
--- NOTE | 2016-07-02 16:05 | P.PN ---
Subjective Date of service 07/02/2016. Progress note being dictated for Dr. Tijerina. Interval history: This is a 65-year-old gentleman admitted with severe hypovolemic hyponatremia, nausea ,vomiting, abdominal pain in a patient with history of peptic ulcer disease, stricture and multiple other medical issues. Maintained on aggressive IV fluid hydration with normal saline, PPI. NPO, Scheduled for EGD today. Continues to have mid epigastric pain, nausea with no vomiting. Sodium improving, 127. Denies chest pain, palpitations or increasing shortness of breath. Objective - Vital Signs Vital signs: Vital Signs Temp 97.2 F L 07/02/16 08:00 Pulse 78 07/02/16 10:46 Resp 16 07/02/16 10:46 BP 117/71 07/02/16 10:46 Pulse Ox 96 07/02/16 10:46 Intake & Output 07/01/16 07/02/16 07/02/16 18:59 06:59 18:59 Intake Total 1125 Output Total 2900 Balance -1775 Weight 78.2 kg Intake: IV 1125 Sodium Chloride 0.9% 1, 1125 000 ml @ 125 mls/hr IV . Q8H DANIEL Rx#:[id number] Output: Urine 2900 Other: Voiding Method Urinal # Voids 2 - Exam PHYSICAL EXAM: VITAL SIGNS: As above GENERAL: [Sitting up in bed, no acute distress] HEENT: [Pupils equal conjunctiva normal.] NECK: [Supple, no JVD] RESPIRATORY EFFORT:[Normal] LUNGS: clear to auscultation, no wheezes rhonchi or crackles CARDIOVASCULAR[ regular S1 and S2, no murmurs rubs or gallops, no edema] GI: [Abdomen soft, nondistended, mid epigastric tenderness, positive bowel sounds. No guarding, no rigidity] PSYCH: [Alert and oriented -3, mood and affect normal.] NEURO: No focal deficits - Labs CBC & Chem 7: 07/01/16 10:02 07/02/16 05:58 Labs: Abnormal Lab Results - Last 24 Hours (Table) 07/01/16 07/02/16 Range/Units 17:30 05:58 Sodium 127 L (137-145) mmol/L Chloride 95 L (98-107) mmol/L BUN 4 L (9-20) mg/dL Creatinine 0.64 L (0.66-1.25) mg/dL Ur Random Sodium 96 H (30-90) mmol/L Assessment and Plan Plan: 1. Severe hypovolemic hyponatremia secondary to persistent nausea vomiting from structure,in spite of a urinary sodium of 96, 2. nausea, vomiting secondary to suspicious lesion] 3. acute abdominal pain in a patient with history of severe peptic ulcer disease ]. 4. [ CAD]. 5. [ hyperlipidemia]. 6. [ osteoarthritis]. 7. [ history of SVT with ablation Plan: continue on current medication regime ,monitoring and symptomatic treatment. Maintain aggressive IV fluid hydration, PPI. Cozaar remains on hold secondary to intravascular volume depletion]. awaiting EGD. Patient may be transferred to [facility] unit. The impression and plan of care has been dictated as directed. : I performed a H&P examination of this patient and discussed the same with the dictator. I agree with the dictator's note. Any additional findings/opinions/ etc. will be noted.
[2016-07-02] MEDS: AMITRIPTYLINE HCL 10 MG TAB PO SCH (21:24)
[2016-07-02] MEDS: LATANOPROST 0.005% OPHTH DROPS 2.5 ML BTL BOTH EYES SCH (21:26)
[2016-07-03] MEDS: MORPHINE SULFATE 4 MG/ML SYRINGE IV PRN ×3 (02:39→14:35)
[2016-07-03] MEDS: SODIUM CHLORIDE 0.9% 1,000 ML IV SCH ×2 (03:56→10:48)
[2016-07-03 07:30] VITALS: PULSE 75; TEMP 97.4
[2016-07-03] MEDS: METOPROLOL TARTRATE 25 MG TAB PO SCH (08:03)
[2016-07-03] MEDS: PANTOPRAZOLE 40 MG TABLET PO SCH (08:03)
[2016-07-03] MEDS: SUCRALFATE 1 GM TAB PO SCH (08:03)
[2016-07-03] MEDS: ASPIRIN 81 MG CHEW PO SCH (08:03)
[2016-07-03] MEDS: BRIMONIDINE TARTRATE 0.2% DROPS 5 ML BTL BOTH EYES SCH (08:04)
[2016-07-03 09:01] LABS: Basophils % (A) 1 %; CHCM 34.2; Eosinophils # (A) 0.3 k/uL (0-0.7); Eosinophils % (A) 4 %; HCT 37.4 % (39.0-53.0); HDW 2.76; HGB 12.7 gm/dL (13.0-17.5); Luc # (Auto) 0.22; Luc % (Auto) 3; Lymphocytes # (A) 1.7 k/uL (1.0-4.8); Lymphocytes % (A) 24 %; MCH 28.9 pg (25.0-35.0); MCV 84.9 fL (80.0-100.0); Mean Platelet Volume 5.7; Monocytes # (A) 0.9 k/uL (0-1.0); Monocytes % (A) 12 %; Neutrophils # (A) 4.1 k/uL (1.3-7.7); Neutrophils % (A) 58 %; RDW 13.8 % (11.5-15.5); WBC 7.1 k/uL (3.8-10.6); WBC (Perox) 7.17
[2016-07-03 09:16] LABS: Anion Gap 11 mmol/L; Blood Urea Nitrogen 6 mg/dL (9-20); Calcium 9.4 mg/dL (8.4-10.2); Carbon Dioxide 24 mmol/L (22-30); Chloride 101 mmol/L (98-107); Glucose 113 mg/dL (74-99); Non-African American GFR(MDRD) >60 (>60 ml/min/1.73 sqM); Potassium 4.3 mmol/L (3.5-5.1); Sodium 136 mmol/L (137-145)
[2016-07-03] MEDS: ONDANSETRON ODT 4 MG TAB PO PRN (10:51)
--- NOTE | 2016-07-03 11:41 | P.PN ---
Subjective Principal diagnosis: Acute on chronic epigastric pain nausea vomiting 75-year-old gentleman well-known to the GI service with chronic epigastric pain nausea vomiting. EGD 6 months ago reported a mild duodenal sweep stricture without impedance. Repeat EGD yesterday reported no changes in stricture from previous exam ,LA grade B reflux esophagitis; biopsies performed. Still reports discomfort with meals. Objective - Vital Signs Vital signs: Vital Signs Temp 97.4 F L 07/03/16 07:00 Pulse 75 07/03/16 07:00 Resp 16 07/03/16 07:00 BP 143/70 07/03/16 07:00 Pulse Ox 100 07/03/16 07:00 Intake & Output 07/02/16 07/03/16 07/03/16 18:59 06:59 18:59 Intake Total 300 Output Total 350 650 Balance -50 -650 Weight 78.2 kg Intake: IV 300 Output: Urine 350 650 Other: Voiding Method Urinal # Voids 2 1 - Exam OGeneral appearance: The patient is alert, oriented, in no acute distress. HET: Head is normocephalic and atraumatic. Pupils are equal and reactive. Oropharynx is clear without lesions. Neck: Supple without lymphadenopathy. Trachea midline. Heart: S1 S2. Regular rate and rhythm. Lungs: No crackles or wheezes are heard. Abdomen: Soft, mild midepigastric tenderness, nondistended with bowel sounds. No peritoneal signs. No palpable organomegaly or masses. Extremities: Normal skin color and turgor. No cyanosis, rash, ulceration, clubbing, or edema. Radial and pedal pulses are 2/4 bilaterally. Neurological: No focal deficits. Strength and sensation are grossly intact. - Labs CBC & Chem 7: 07/03/16 08:26 07/03/16 08:26 Labs: Abnormal Lab Results - Last 24 Hours (Table) 07/03/16 07/03/16 Range/Units 08:26 08:26 Hgb 12.7 L (13.0-17.5) gm/dL Hct 37.4 L (39.0-53.0) % Plt Count 487 H (150-450) k/uL Sodium 136 L (137-145) mmol/L BUN 6 L (9-20) mg/dL Creatinine 0.61 L (0.66-1.25) mg/dL Glucose 113 H (74-99) mg/dL Assessment and Plan (1) Epigastric pain Narrative/Plan: Post EGD with findings of mild smooth duodenal sweep stricture no evidence of mechanical obstruction. LA grade B reflux esophagitis biopsies taken. Status: Acute (2) Duodenal stricture Status: Acute (3) Hyponatremia Status: Acute Plan: 1. Continue PPI therapy twice daily. 2. HIDA scan with CCK to evaluate for biliary dyskinesia. 3. We'll continue to follow with you. 4. If HIDA scan is abnormal patient is requesting Dr. Marcus general surgeon for evaluation. Assessment and plan a care discussed with Dr. Subramanian.
--- NOTE | 2016-07-03 14:24 | NM ---
EXAMINATION TYPE: NM hepatobiliary w EF DATE OF EXAM: 07/03/2016 2:14 PM COMPARISON: CT abdomen second of June 2016 HISTORY: Pain, epigastric pain TECHNIQUE: After the intravenous administration of 5.5 mCi Tc 99m Mebrofenin hepatobiliary scintigrap hy is performed. Immediate images post injection. FINDINGS: There is satisfactory initial accumulation of tracer by the liver. The gallbladder is visualized wit hin 8 minutes. The small bowel activity is noted within 34 minutes. At one hour 8 ounces of oral en sure plus is given to mimic CCK and gallbladder ejection fraction is calculated at 82 %. Therefore t here is no scintigraphic evidence of cystic or common bile duct obstruction to suggest acute cholecys titis or gallbladder dyskinesia. IMPRESSION: Gallbladder ejection fraction is 82%
[2016-07-03 15:19] VITALS: BP 147/73
--- NOTE | 2016-07-03 17:13 | P.DS ---
Providers Date of admission: 07/01/16 12:05 Expected date of discharge: 07/03/16 Attending physician: Gustavo Tijerina Consults: Dr. Leyla Subramanian, GI Primary care physician: [facility] [place] Hospital Course: Final Diagnoses: 1. Severe acute hypovolemic hyponatremia secondary to persistent nausea vomiting from structure,in spite of a urinary sodium of 96, resolved. 2. nausea, vomiting secondary to suspicious lesion. Status post EGD reporting mild smooth duodenal sweep stricture, without impedance,LA grade B reflux esophagitis. Biopsies pending. 3. acute abdominal pain in a patient with history of severe peptic ulcer disease ]. 4. [ CAD]. 5. [ hyperlipidemia]. 6. [ osteoarthritis]. 7. [ history of SVT with ablation Hospital course:This is a 65-year-old gentleman admitted with severe hypovolemic hyponatremia, nausea ,vomiting, abdominal pain in a patient with history of peptic ulcer disease, stricture and multiple other medical issues. Maintained on aggressive IV fluid hydration with normal saline, PPI. Underwent EGD reporting mild smooth duodenal sweep stricture, no evidence of mechanical obstruction,LA grade B reflux esophagitis. Biopsies pending. Continued to have mid epigastric pain, nausea with meals. HIDA scan performed, verbal report negative. Cleared by GI for discharge .Sodium normalized. Patient is being discharged home in a stable condition with guarded prognosis. The impression and plan of care has been dictated as directed. : I performed a H&P examination of this patient and discussed the same with the dictator. I agree with the dictator's note. Any additional findings/opinions/ etc. will be noted. Patient Condition at Discharge: Stable Plan - Discharge Summary Discharge Medication List ALPRAZolam [Xanax] 0.25 mg PO TID PRN 07/12/13 [History] Carisoprodol [Soma] 350 mg PO TID PRN 07/12/13 [History] Metoprolol Tartrate [Lopressor] 25 mg PO BID 07/12/13 [History] Simvastatin [Zocor] 40 mg PO HS 07/12/13 [History] Temazepam [Restoril] 30 mg PO HS PRN 07/12/13 [History] Amitriptyline HCl 10 mg PO HS 01/26/16 [History] Nitroglycerin Sl Tabs [Nitrostat] 0.4 mg SUBLINGUAL Q5M PRN 01/28/16 [History] Brimonidine Tartrate [Alphagan P 0.2% Ophth Soln] 1 drops BOTH EYES BID [History] Buta/APAP/Caf/Cod 91-096-38-30 [Fioricet w/Cod 32-504-13-30MG] 1 cap PO Q8H PRN 02/20/16 [History] Latanoprost [Xalatan 0.005%] 1 drop BOTH EYES HS 02/20/16 [History] Ondansetron Odt [Zofran ODT] 4 mg PO Q8HR PRN #5 tab 02/21/16 [Rx] Aspirin [Adult Low Dose Aspirin EC] 81 mg PO BID 06/26/16 [History] Pantoprazole Sodium 40 mg PO BID 06/26/16 [History] Sucralfate [Carafate] 1 gm PO BID 06/26/16 [History] Follow up Appointment(s)/Referral(s): Garrison Yuen MD [Primary Care Provider] - 3 Days Leyla Subramanian MD [STAFF PHYSICIAN] - 2 Weeks Ambulatory/Diagnostic Orders: Complete Blood Count w/diff [LAB.AMB] Time Frame: 3 Days, Location: Determined By Patient Activity/Diet/Wound Care/Special Instructions: Latosha piña ensure between meals and hs snack
== END 2016-07-03 17:40 | disposition home or self-care (01) | DRG 381 ==
LOC: EC 09:23 → 6SEL 12:05 → 4MS4W 07-02 19:17
PROVIDERS: ADMIT Hospitalist; ATTEND Hospitalist
PROC: 0DB98ZX Excision of Duodenum, Via Natural or Artificial Opening Endoscopic, Diagnostic (ICD-10-PCS; principal; 2016-07-02 13:00)
DX: K31.5 Obstruction of duodenum (principal); E87.1 Hypo-osmolality and hyponatremia; K25.9 Gastric ulcer, unspecified as acute or chronic, without hemorrhage or perforation; E86.1 Hypovolemia; K27.9 Peptic ulcer, site unspecified, unspecified as acute or chronic, without hemorrhage or perforation; I25.10 Atherosclerotic heart disease of native coronary artery without angina pectoris; E78.5 Hyperlipidemia, unspecified; I10 Essential (primary) hypertension; M19.91 Primary osteoarthritis, unspecified site; K21.0 Gastro-esophageal reflux disease with esophagitis; I25.2 Old myocardial infarction; G43.909 Migraine, unspecified, not intractable, without status migrainosus; G89.29 Other chronic pain; M54.9 Dorsalgia, unspecified; D64.9 Anemia, unspecified; H40.9 Unspecified glaucoma; K44.9 Diaphragmatic hernia without obstruction or gangrene; Z98.42 Cataract extraction status, left eye; Z95.5 Presence of coronary angioplasty implant and graft; Z98.41 Cataract extraction status, right eye; Z96.1 Presence of intraocular lens; Z87.891 Personal history of nicotine dependence; Z79.82 Long term (current) use of aspirin; Z79.899 Other long term (current) drug therapy
CPT/HCPCS: 36415; 43239; 74000; 74160; 78226; 80048; 80053; 81003; 82150; 82570; 83690; 83930; 83935; 84300; 84443; 85025; 88305; 96361; 96374; 96375; 96376; 99285

== ENCOUNTER 2016-07-23 06:57 | Inpatient (IN) | payer MEDICARE ==
[2016-07-23] MEDS ORDERED: MORPHINE SULFATE 4 MG/ML SYRINGE IV STA (07:50)
[2016-07-23] MEDS ORDERED: RX INFO: IV CONTRAST WAS GIVEN 1 EACH MISC MISCELLANE PRN (07:50)
[2016-07-23] MEDS ORDERED: ONDANSETRON 4 MG/2 ML VIAL IVP STA ×2 (07:50→11:05)
[2016-07-23] MEDS ORDERED: SODIUM CHLORIDE 0.9% 1,000 ML IV STA ×2 (07:50)
[2016-07-23 08:14] LABS: Basophils % (A) 1 %; CHCM 34.6; Eosinophils # (A) 0.3 k/uL (0-0.7); Eosinophils % (A) 3 %; HCT 38.5 % (39.0-53.0); HDW 2.74; HGB 13.2 gm/dL (13.0-17.5); Luc # (Auto) 0.17; Luc % (Auto) 2; Lymphocytes # (A) 1.6 k/uL (1.0-4.8); Lymphocytes % (A) 19 %; MCH 28.8 pg (25.0-35.0); MCHC 34.3 g/dL (31.0-37.0); Mean Platelet Volume 7.6; Monocytes # (A) 0.9 k/uL (0-1.0); Monocytes % (A) 11 %; Neutrophils # (A) 5.5 k/uL (1.3-7.7); Neutrophils % (A) 65 %; RBC 4.58 m/uL (4.30-5.90); RDW 13.5 % (11.5-15.5); WBC 8.4 k/uL (3.8-10.6); WBC (Perox) 8.65
[2016-07-23 08:37] LABS: ALT 19 U/L (21-72); AST 20 U/L (17-59); Alkaline Phosphatase 77 U/L (38-126); Amylase 80 U/L (30-110); Anion Gap 14 mmol/L; Blood Urea Nitrogen 5 mg/dL (9-20); Carbon Dioxide 19 mmol/L (22-30); Chloride 89 mmol/L (98-107); Glucose 114 mg/dL (74-99); Non-African American GFR(MDRD) >60 (>60 ml/min/1.73 sqM); Sodium 122 mmol/L (137-145); Total Bilirubin 0.7 mg/dL (0.2-1.3)
[2016-07-23 08:42] LABS: Potassium 3.5 mmol/L (3.5-5.1)
[2016-07-23 08:45] LABS: INR 1.1 (<1.1); Prothrombin Time 10.6 sec (9.0-12.0)
[2016-07-23 08:53] LABS: Partial Thromboplastin Time 20.2 sec (22.0-30.0)
--- NOTE | 2016-07-23 09:10 | ED ---
Abdominal Pain HPI - General Chief Complaint: Abdominal Pain Stated Complaint: Vomiting Time Seen by Provider: 07/23/16 07:15 Source: patient, family, RN notes reviewed Mode of arrival: wheelchair Limitations: no limitations - History of Present Illness Initial Comments: This is a 65-year-old male who presents with complaints of lower abdominal pain this started yesterday. He points to the right lower quadrant area he states the pain is sharp and sometimes dull he had nausea and vomiting with it was 8/ 10 in severity no dysuria no hematuria no radiation he did has some intermittent sweats with it. He's had no prior abdominal surgeries. No history kidney stones. He states that the pain does occasionally radiate down toward his groin. MD Complaint: abdominal pain - Related Data Home Medications Medication Instructions Recorded Confirmed ALPRAZolam [Xanax] 0.25 mg PO TID PRN 07/12/13 07/23/16 Carisoprodol [Soma] 350 mg PO TID PRN 07/12/13 07/23/16 Metoprolol Tartrate [Lopressor] 25 mg PO BID 07/12/13 07/23/16 Simvastatin [Zocor] 40 mg PO HS 07/12/13 07/23/16 Temazepam [Restoril] 30 mg PO HS PRN 07/12/13 07/23/16 Amitriptyline HCl 10 mg PO HS 01/26/16 07/23/16 Nitroglycerin Sl Tabs [Nitrostat] 0.4 mg SUBLINGUAL Q5M PRN 01/28/16 07/23/16 Brimonidine Tartrate [Alphagan P 1 drops BOTH EYES BID 02/20/16 07/23/16 0.2% Ophth Soln] Buta/APAP/Caf/Cod 73-267-73-30 1 cap PO Q8H PRN 02/20/16 07/23/16 [Fioricet w/Cod 43-703-92-30MG] Latanoprost [Xalatan 0.005%] 1 drop BOTH EYES HS 02/20/16 07/23/16 Aspirin [Adult Low Dose Aspirin EC] 81 mg PO BID 06/26/16 07/23/16 Pantoprazole Sodium 40 mg PO BID 06/26/16 07/23/16 Sucralfate [Carafate] 1 gm PO BID 06/26/16 07/23/16 Previous Rx's Medication Instructions Recorded Ondansetron Odt [Zofran ODT] 4 mg PO Q8HR PRN #5 tab 02/21/16 Allergies Allergy/AdvReac Type Severity Reaction Status Date / Time atorvastatin [From Lipitor] AdvReac Unknown Verified 07/23/16 07:56 Review of Systems ROS Statement: Those systems with pertinent positive or pertinent negative responses have been documented in the HPI. ROS Other: All systems not noted in ROS Statement are negative. Past Medical History Past Medical History: Coronary Artery Disease (CAD), Chest Pain / Angina, Eye Disorder, GERD/Reflux, Hyperlipidemia, Hypertension, Myocardial Infarction (SD) , Osteoarthritis (OA) Additional Past Medical History / Comment(s): SVT with ablation, gastric ulcers , chronic duodenal stricture, bilateral glaucoma, sinusitis, migraines, anemia, hiatal hernia, chronic back pain, past fx ribs/sternum Last Myocardial Infarction Date:: 1999 History of Any Multi-Drug Resistant Organisms: None Reported Past Surgical History: Cardiac Ablation, Heart Catheterization With Stent Additional Past Surgical History / Comment(s): sinus surgery, cataracts bilaterally with lens implants, EGDs/colonoscopies, sinus surgery due to accident. Past Anesthesia/Blood Transfusion Reactions: No Reported Reaction Additional Past Anesthesia/Blood Transfusion Reaction / Comment(s): Pt has had past multiple transfusions without reaction. Date of Last Stent Placement:: 1999 Past Psychological History: No Psychological Hx Reported Additional Psychological History / Comment(s): Pt resides with his spouse. 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 He is independent. Smoking Status: Former smoker Past Alcohol Use History: None Reported Additional Past Alcohol Use History / Comment(s): Pt states he started smoking in 1993 and quit in 1999 Past Drug Use History: None Reported - Past Family History Father Additional Family Medical History / Comment(s): Father at the age of 68yrs from a ruptured aortic aneurysm. Mother Family Medical History: Hyperlipidemia, Hypertension Additional Family Medical History / Comment(s): Mother lived into her 80's. General Exam - General Exam Comments Initial Comments: This is a well-developed well-nourished awake alert male Limitations: no limitations General appearance: alert, anxious, in distress Head exam: Present: atraumatic, normocephalic, normal inspection Eye exam: Present: normal appearance, PERRL, EOMI. Absent: scleral icterus, conjunctival injection, periorbital swelling ENT exam: Present: normal exam, mucous membranes moist Neck exam: Present: normal inspection. Absent: tenderness, meningismus, lymphadenopathy Respiratory exam: Present: normal lung sounds bilaterally. Absent: respiratory distress, wheezes, rales, rhonchi, stridor Cardiovascular Exam: Present: regular rate, normal rhythm, normal heart sounds. Absent: systolic murmur, diastolic murmur, rubs, gallop, clicks GI/Abdominal exam: Present: soft, tenderness (Right lower quadrant tenderness palpation no definite guarding or rebound), normal bowel sounds. Absent: distended, guarding, rebound, rigid, pulsatile mass, hernia Rectal exam: Present: deferred exam: Present: other (No tenderness palpation) Extremities exam: Present: normal inspection, full ROM, normal capillary refill. Absent: tenderness, pedal edema, joint swelling, calf tenderness Back exam: Present: normal inspection Neurological exam: Present: alert, oriented X3, CN II-XII intact Psychiatric exam: Present: normal affect, normal mood Skin exam: Present: warm, dry, intact, normal color. Absent: rash Course Vital Signs 07/23/16 07/23/16 07:10 09:15 Temperature 98.1 F Pulse Rate 83 62 Respiratory 18 18 Rate Blood Pressure 161/84 166/85 O2 Sat by Pulse 99 99 Oximetry - Reevaluation(s) Reevaluation #1: 07/23/16 10:59 I did discuss lab findings the patient has patient does not drink alcohol he apparently Megan get liquids and however. Patient will be admitted Medical Decision Making - Medical Decision Making I did discuss findings with the patient has patient be admitted for evaluation by GI. - Lab Data Result diagrams: 07/23/16 08:00 07/23/16 08:00 Lab Results 07/23/16 07/23/16 07/23/16 Range/Units 08:00 08:00 08:00 WBC 8.4 (3.8-10.6) k/uL RBC 4.58 (4.30-5.90) m/uL Hgb 13.2 (13.0-17.5) gm/dL Hct 38.5 L (39.0-53.0) % MCV 84.0 (80.0-100.0) fL MCH 28.8 (25.0-35.0) pg MCHC 34.3 (31.0-37.0) g/dL RDW 13.5 (11.5-15.5) % Plt Count 395 (150-450) k/uL Neutrophils % 65 % Lymphocytes % 19 % Monocytes % 11 % Eosinophils % 3 % Basophils % 1 % Neutrophils # 5.5 (1.3-7.7) k/uL Lymphocytes # 1.6 (1.0-4.8) k/uL Monocytes # 0.9 (0-1.0) k/uL Eosinophils # 0.3 (0-0.7) k/uL Basophils # 0.0 (0-0.2) k/uL PT 10.6 (9.0-12.0) sec INR 1.1 (<1.1) APTT 20.2 L (22.0-30.0) sec Sodium 122 L (137-145) mmol/L Potassium 3.5 (3.5-5.1) mmol/L Chloride 89 L (98-107) mmol/L Carbon Dioxide 19 L (22-30) mmol/L Anion Gap 14 mmol/L BUN 5 L (9-20) mg/dL Creatinine 0.53 L (0.66-1.25) mg/dL Est GFR (MDRD) Af Amer >60 (>60 ml/min/1.73 sqM) Est GFR (MDRD) Non-Af >60 (>60 ml/min/1.73 sqM) Glucose 114 H (74-99) mg/dL Plasma Lactic Acid Ney (0.7-2.0) mmol/L Calcium 9.0 (8.4-10.2) mg/dL Total Bilirubin 0.7 (0.2-1.3) mg/dL AST 20 (17-59) U/L ALT 19 L (21-72) U/L Alkaline Phosphatase 77 (38-126) U/L Total Protein 8.0 (6.3-8.2) g/dL Albumin 4.8 (3.5-5.0) g/dL Amylase 80 (30-110) U/L Lipase 160 (23-300) U/L Urine Color Urine Appearance (Clear) Urine pH (5.0-8.0) Ur Specific [place] (1.001-1.035) Urine Protein (Negative) Urine Glucose (UA) (Negative) Urine Ketones (Negative) Urine Blood (Negative) Urine Nitrite (Negative) Urine Bilirubin (Negative) Urine Urobilinogen (<2.0) mg/dL Ur Leukocyte Esterase (Negative) 07/23/16 07/23/16 Range/Units 08:00 09:05 WBC (3.8-10.6) k/uL RBC (4.30-5.90) m/uL Hgb (13.0-17.5) gm/dL Hct (39.0-53.0) % MCV (80.0-100.0) fL MCH (25.0-35.0) pg MCHC (31.0-37.0) g/dL RDW (11.5-15.5) % Plt Count (150-450) k/uL Neutrophils % % Lymphocytes % % Monocytes % % Eosinophils % % Basophils % % Neutrophils # (1.3-7.7) k/uL Lymphocytes # (1.0-4.8) k/uL Monocytes # (0-1.0) k/uL Eosinophils # (0-0.7) k/uL Basophils # (0-0.2) k/uL PT (9.0-12.0) sec INR (<1.1) APTT (22.0-30.0) sec Sodium (137-145) mmol/L Potassium (3.5-5.1) mmol/L Chloride (98-107) mmol/L Carbon Dioxide (22-30) mmol/L Anion Gap mmol/L BUN (9-20) mg/dL Creatinine (0.66-1.25) mg/dL Est GFR (MDRD) Af Amer (>60 ml/min/1.73 sqM) Est GFR (MDRD) Non-Af (>60 ml/min/1.73 sqM) Glucose (74-99) mg/dL Plasma Lactic Acid Ney 1.4 (0.7-2.0) mmol/L Calcium (8.4-10.2) mg/dL Total Bilirubin (0.2-1.3) mg/dL AST (17-59) U/L ALT (21-72) U/L Alkaline Phosphatase (38-126) U/L Total Protein (6.3-8.2) g/dL Albumin (3.5-5.0) g/dL Amylase (30-110) U/L Lipase (23-300) U/L Urine Color Yellow Urine Appearance Clear (Clear) Urine pH 7.0 (5.0-8.0) Ur Specific [place] 1.018 (1.001-1.035) Urine Protein Negative (Negative) Urine Glucose (UA) Negative (Negative) Urine Ketones Negative (Negative) Urine Blood Negative (Negative) Urine Nitrite Negative (Negative) Urine Bilirubin Negative (Negative) Urine Urobilinogen <2.0 (<2.0) mg/dL Ur Leukocyte Esterase Negative (Negative) - Radiology Data Radiology results: report reviewed (I did review the imaging and reports there is evidence of inflammatory changes within the bowel. The appendix is unremarkable ulcer as not ruled out please see the complete report), image reviewed Disposition Clinical Impression: Duodenal stricture, Dehydration, Abdominal pain, Hyponatremia, Enteritis Disposition: ADMITTED IP TO THIS [facility] Condition: Stable Referrals: Garrison Yuen MD [Primary Care Provider] - 1-2 days Decision Time: 10:00
[2016-07-23] MEDS ORDERED: MORPHINE SULFATE 4 MG/ML SYRINGE IVP STA (09:11)
[2016-07-23 09:37] LABS: Appearance,Urine Clear (Clear); Bilirubin,Urine Negative (Negative); Glucose,Urine (UA) Negative (Negative); Ketones,Urine Negative (Negative); Leukocyte Esterase,Urine Negative (Negative); Nitrite,Urine Negative (Negative); Protein,Urine Negative (Negative); Specific Gravity,Urine 1.018 (1.001-1.035); UA Billing (MACRO vs. MICRO) CHEM; Urobilinogen,Urine <2.0 mg/dL (<2.0)
--- NOTE | 2016-07-23 10:13 | CT ---
EXAMINATION TYPE: CT abdomen pelvis w con DATE OF EXAM: 07/23/2016 9:57 AM COMPARISON: Prior CT abdomen second of June 2016, CT abdomen pelvis January HISTORY: Patient complains of RUQ pain, nausea, and vomiting. CT DLP: 1473 mGycm Automated exposure control for dose reduction was used. TECHNIQUE: Helical acquisition of images from the lung bases through the pelvis have been completed. CONTRAST: Performed without Oral Contrast and with IV Contrast, patient injected with 100 mL of Omnipaque 300. FINDINGS: Heart size may be borderline increased. There is a small hiatal hernia. LUNG BASES: Minimal dependent atelectatic changes. Calcified nodule of the right lung base is stable. AORTA: No significant abnormality is appreciated. LIVER/GB: Stable PANCREAS: No significant abnormality is seen. SPLEEN: No significant abnormality is seen. ADRENALS: No significant abnormality is seen. KIDNEYS: Stable compared to prior, bilateral cortical cysts are present. REPRODUCTIVE ORGANS: The prostate is enlarged. BOWEL: Proximal duodenum again shows an unusual configuration, difficult to exclude an ulcer near th e gastroduodenal junction, previous report suggests known stricture, consider follow-up endoscopic ev aluation. Question small bowel wall thickening, possible enteritis. The appendix is normal. There is no bowel obstruction. Scattered diverticula present in the sigmoid colon. Question some colonic wall thickening. Consider colitis. FREE AIR: No Free Air visible. ASCITES: None visible. PELVIC ADENOPATHY: None visualized. RETROPERITONEAL ADENOPATHY: No Retroperitoneal Adenopathy visible. URINARY BLADDER: No significant abnormality is seen. OSSEOUS STRUCTURES: Stable, degenerative disc changes are present in the visualized spine, there is a spinal curvature. Posterior thoracic change suspected within the hips. IMPRESSION: CORRELATE FOR ENTERITIS, COLITIS, FINDINGS AT THE GASTRODUODENAL JUNCTION DESCRIBED, DIFFICULT TO EXCLUDE PEPTIC ULCER DISEASE. DIVERTICULOSIS. HIATAL HERNIA. PROSTATIC ENLARGEMENT.
[2016-07-23] MEDS ORDERED: NALOXONE 0.4 MG/ML 1 ML VIAL IV PRN (11:01)
[2016-07-23] MEDS ORDERED: NITROGLYCERIN SL TABS 0.4 MG TAB SUBLINGUAL PRN (11:05)
[2016-07-23] MEDS ORDERED: BUTA/APAP/CAF/COD 50-325-40-30 CAP PO PRN (11:05)
[2016-07-23] MEDS ORDERED: CARISOPRODOL 350 MG TAB PO PRN (11:05)
[2016-07-23] MEDS: MORPHINE SULFATE 4 MG/ML SYRINGE IV PRN ×3 (12:36→21:18)
[2016-07-23] MEDS: ALPRAZolam 0.25 MG TAB PO PRN ×2 (12:37→21:53)
[2016-07-23] MEDS: SODIUM CHLORIDE 0.9% 1,000 ML IV SCH ×2 (12:40→23:58)
[2016-07-23] MEDS: PANTOPRAZOLE 40 MG TABLET PO SCH (16:59)
[2016-07-23] MEDS: ONDANSETRON 4 MG/2 ML VIAL IVP PRN (19:58)
[2016-07-23] MEDS ORDERED: NON-FORMULARY DRUG (Simvastatin 40 MG) PO SCH (21:00)
[2016-07-23] MEDS: METOPROLOL TARTRATE 25 MG TAB PO SCH (21:43)
[2016-07-23] MEDS: SUCRALFATE 1 GM TAB PO SCH (21:43)
[2016-07-23] MEDS: AMITRIPTYLINE HCL 10 MG TAB PO SCH (21:43)
[2016-07-23] MEDS: BRIMONIDINE TARTRATE 0.2% DROPS 5 ML BTL BOTH EYES SCH (21:44)
[2016-07-23] MEDS: LATANOPROST 0.005% OPHTH DROPS 2.5 ML BTL BOTH EYES SCH (21:44)
[2016-07-23] MEDS: SIMVASTATIN 40 MG PO SCH (22:33)
[2016-07-24] MEDS: MORPHINE SULFATE 4 MG/ML SYRINGE IV PRN ×6 (01:25→22:12)
[2016-07-24] MEDS: ONDANSETRON 4 MG/2 ML VIAL IVP PRN (03:12)
[2016-07-24] MEDS: SUCRALFATE 1 GM TAB PO SCH (09:26)
[2016-07-24] MEDS: BRIMONIDINE TARTRATE 0.2% DROPS 5 ML BTL BOTH EYES SCH ×2 (09:26→20:02)
[2016-07-24] MEDS: METOPROLOL TARTRATE 25 MG TAB PO SCH ×2 (09:27→20:03)
[2016-07-24] MEDS: PANTOPRAZOLE 40 MG TABLET PO SCH ×2 (09:27→17:45)
[2016-07-24 10:22] VITALS: BMI 24.4
[2016-07-24 10:26] LABS: Basophils % (A) 0 %; CH 29.2; CHCM 34.5; Eosinophils # (A) 0.3 k/uL (0-0.7); Eosinophils % (A) 3 %; HCT 33.8 % (39.0-53.0); HDW 2.74; HGB 11.9 gm/dL (13.0-17.5); Luc # (Auto) 0.19; Luc % (Auto) 2; Lymphocytes # (A) 1.1 k/uL (1.0-4.8); Lymphocytes % (A) 13 %; MCHC 35.3 g/dL (31.0-37.0); MCV 84.9 fL (80.0-100.0); Mean Platelet Volume 6.1; Monocytes # (A) 0.8 k/uL (0-1.0); Monocytes % (A) 10 %; Neutrophils # (A) 6.1 k/uL (1.3-7.7); Neutrophils % (A) 71 %; RBC 3.98 m/uL (4.30-5.90); RDW 13.6 % (11.5-15.5); WBC 8.5 k/uL (3.8-10.6); WBC (Perox) 8.76
[2016-07-24 10:32] LABS: Anion Gap 10 mmol/L; Blood Urea Nitrogen 5 mg/dL (9-20); Calcium 8.3 mg/dL (8.4-10.2); Carbon Dioxide 20 mmol/L (22-30); Chloride 89 mmol/L (98-107); Glucose 107 mg/dL (74-99); Non-African American GFR(MDRD) >60 (>60 ml/min/1.73 sqM); Potassium 3.9 mmol/L (3.5-5.1)
[2016-07-24 10:45] LABS: Sodium 119 mmol/L (137-145)
[2016-07-24] MEDS: SCOPOLAMINE 1.5MG/72HR PATCH TRANSDERM SCH (10:47)
[2016-07-24] MEDS: METOCLOPRAMIDE 5 MG/ML 2 ML VIAL IVP SCH ×3 (10:47→23:19)
--- NOTE | 2016-07-24 11:25 | P.CONS ---
History of Present Illness - Reason for Consult Consult date: 07/24/16 abdominal pain Requesting physician: Simone Walters - History of Present Illness 65-year-old gentleman with a past medical history of hyponatremia, peptic ulcer disease/duodenal stricture, CAD, [place], arrhythmia, diverticulosis, chronic back pain, GERD and chronic epigastric pain more than 3 years with exacerbation of the last several months with persistent nausea vomiting and right-sided abdominal pain as well as hyponatremia. He underwent EGD evaluation in January 2016 and earlier this month 07/03/2016 with findings of a benign- appearing duodenal stricture along the sweep with no impedance of passage of scope, linear erosions in the distal esophagus consistent with LA grade B reflux esophagitis without stricture. Biopsies negative for malignancy. CT abdomen and pelvis reported no evidence of obstruction. HIDA scan 07/03/16 was advised secondary to symptoms of right upper quadrant pain nausea vomiting reports of an ejection fraction 82%. He presents with the same symptoms not improved over the last 3 weeks. Denies hematemesis hematochezia or melena. Pain is almost instant upon drinking or consuming foods. Weight has fluctuated between 2 and 3 kg over the last several months. He feels that his nutritional intake is not adequate despite protein shake supplementation. Admission sodium 122 currently 119. Potassium 3.5. BUN 5. Crit 0.5. Lactic acid 1.4. LFTs within normal limits. Lipase 160. Repeat computed tomography scan with IV contrast only reported changes in the duodenum consistent with recent EGD findings of a benign smooth nonobstructive duodenal stricture. Possible enteritis with questionable small bowel wall thickening. Appendix normal. Uncomplicated sigmoid diverticular disease. Patient denies diarrhea or constipation. No fevers. Patient is requesting a surgical opinion. Review of Systems Constitutional: Denies fever, chills, sweats, weight gain, or loss. HEENT: History of migraines, blurred vision or loss, earaches, drainage, tinnitus, oral mucosal lesions, dysphagia, or odynophagia. Cardiac: CAD. Hyperlipidemia. [place]. Hypertension. Arrhythmia. Negative for chest pain, arrhythmias, or palpitation. Respiratory: Negative for shortness of breath, hemoptysis, cough, or sputum production. Gastrointestinal: See HPI for pertinent findings. Genitourinary: Negative for hematuria, urgency, frequency, polyuria, dysuria, or penile discharge. Musculoskeletal: Chronic back pain.. Neurologic: Negative for stroke or TIA. Endocrine: Negative for thyroid problems. Skin: Negative for rash or itching. Psychiatric: Negative history for depression and anxiety All systems: negative (See HPI) Past Medical History Past Medical History: Coronary Artery Disease (CAD), Chest Pain / Angina, Eye Disorder, GERD/Reflux, Hyperlipidemia, Hypertension, Myocardial Infarction (KS) , Osteoarthritis (OA) Additional Past Medical History / Comment(s): SVT with ablation, gastric ulcers , chronic duodenal stricture, bilateral glaucoma, sinusitis, migraines, anemia, esophagitis,hiatal hernia, chronic back pain, past fx ribs/sternum Last Myocardial Infarction Date:: 1999 History of Any Multi-Drug Resistant Organisms: None Reported Past Surgical History: Cardiac Ablation, Heart Catheterization With Stent Additional Past Surgical History / Comment(s): sinus surgery, cataracts bilaterally with lens implants, EGDs/colonoscopies, sinus surgery due to accident. Past Anesthesia/Blood Transfusion Reactions: No Reported Reaction Additional Past Anesthesia/Blood Transfusion Reaction / Comm: Pt has had past multiple transfusions without reaction. Date of Last Stent Placement:: 1999 Past Psychological History: No Psychological Hx Reported Additional Psychological History / Comment(s): Pt resides with his spouse. 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 He is independent. Smoking Status: Former smoker Past Alcohol Use History: None Reported Additional Past Alcohol Use History / Comment(s): Pt states he started smoking in 1993 and quit in 1999 Past Drug Use History: None Reported - Past Family History Father Additional Family Medical History / Comment(s): Father at the age of 68yrs from a ruptured aortic aneurysm. Mother Family Medical History: Hyperlipidemia, Hypertension Additional Family Medical History / Comment(s): Mother lived into her 80's. Medications and Allergies Home Medications Medication Instructions Recorded Confirmed Type ALPRAZolam [Xanax] 0.25 mg PO TID PRN 07/12/13 07/23/16 History Carisoprodol [Soma] 350 mg PO TID PRN 07/12/13 07/23/16 History Metoprolol Tartrate [Lopressor] 25 mg PO BID 07/12/13 07/23/16 History Simvastatin [Zocor] 40 mg PO HS 07/12/13 07/23/16 History Temazepam [Restoril] 30 mg PO HS PRN 07/12/13 07/23/16 History Amitriptyline HCl 10 mg PO HS 01/26/16 07/23/16 History Nitroglycerin Sl Tabs [Nitrostat] 0.4 mg SUBLINGUAL Q5M PRN 01/28/16 07/23/16 History Brimonidine Tartrate [Alphagan P 1 drops BOTH EYES BID 02/20/16 07/23/16 History 0.2% Ophth Soln] Buta/APAP/Caf/Cod 55-325-12-30 1 cap PO Q8H PRN 02/20/16 07/23/16 History [Fioricet w/Cod 27-400-03-30MG] Latanoprost [Xalatan 0.005%] 1 drop BOTH EYES HS 02/20/16 07/23/16 History Aspirin [Adult Low Dose Aspirin EC] 81 mg PO BID 06/26/16 07/23/16 History Pantoprazole Sodium 40 mg PO BID 06/26/16 07/23/16 History Sucralfate [Carafate] 1 gm PO BID 06/26/16 07/23/16 History Allergies Allergy/AdvReac Type Severity Reaction Status Date / Time atorvastatin [From Lipitor] AdvReac Unknown Verified 07/23/16 07:56 Physical Exam Vitals: Vital Signs Temp Pulse Pulse Resp BP BP Pulse Ox 07/24/16 07:00 98.0 F 69 16 157/86 98 07/23/16 23:00 98.3 F 65 18 144/90 97 07/23/16 16:00 16 07/23/16 15:00 97.8 F 75 16 152/88 98 07/23/16 11:51 98.1 F 67 16 153/82 100 07/23/16 11:11 97.7 F 62 16 164/87 99 Intake and Output 07/23/16 07/24/16 07/24/16 22:59 06:59 14:59 Intake Total 850 100 Output Total 1200 600 500 Balance -350 -500 -500 Intake: Oral 850 100 Output: Urine 1200 500 500 Emesis 100 Other: Voiding Method Urinal # Voids 2 2 # Emeses 1 Weight 81.647 kg Patient Weight 07/25/16 06:59 Weight 81.647 kg General appearance: The patient is alert, oriented, in no acute distress. HET: Head is normocephalic and atraumatic. Pupils are equal and reactive. Oropharynx is clear without lesions. Neck: Supple without lymphadenopathy. Trachea midline. Heart: S1 S2. Regular rate and rhythm. Lungs: No crackles or wheezes are heard. Abdomen: Soft, mild tenderness to the mid abdomen/RUQ/RMQ, nondistended with bowel sounds. No peritoneal signs. No palpable organomegaly or masses. Extremities: Normal skin color and turgor. No cyanosis, rash, ulceration, clubbing, or edema. Radial and pedal pulses are 2/4 bilaterally. Neurological: No focal deficits. Strength and sensation are grossly intact. Results CBC & Chem 7: 07/24/16 09:50 07/24/16 09:50 Labs: Abnormal Lab Results - Last 24 Hours (Table) 07/24/16 07/24/16 Range/Units 09:50 09:50 RBC 3.98 L (4.30-5.90) m/uL Hgb 11.9 L (13.0-17.5) gm/dL Hct 33.8 L (39.0-53.0) % Sodium 119 L* (137-145) mmol/L Chloride 89 L (98-107) mmol/L Carbon Dioxide 20 L (22-30) mmol/L BUN 5 L (9-20) mg/dL Creatinine 0.52 L (0.66-1.25) mg/dL Glucose 107 H (74-99) mg/dL Calcium 8.3 L (8.4-10.2) mg/dL CT scan - abdomen: report reviewed (Reviewed by Dr. Connolly) Assessment and Plan (1) Abdominal pain Narrative/Plan: Unclear etiology recent HIDA scan reported ejection fraction 82% unsure if patient's GI symptoms are gallbladder related. Status post EGD earlier this month with findings of a consistent nonobstructive smooth duodenal stricture with negative biopsies unchanged from previous exam in January 2016. Doubt enteritis findings GI complaints are consistent with previous hospitalizations CT Limited performed without oral contrast no reports of fever or diarrhea. Status: Acute (2) Duodenal stricture Status: Acute (3) Hyponatremia Status: Acute Plan: 1. Recommend surgical consult for evaluation of abdominal pain and recent HIDA scan results. May consider outpatient gastric emptying study if surgical intervention is not planned at this time. 2. Continue with antinausea medications and supportive measures. Will provide Reglan and scopolamine patch for nausea. 3. Repeat EGD is not planned at this time. Obtain prealbumin. 4. Will follow with you. Thank you for this kind referral and the opportunity to participate in the care of your patient. This consultation was discussed with Dr. Subramanian. The impression and plan of care have been directed as dictated.
[2016-07-24] MEDS: ALPRAZolam 0.25 MG TAB PO PRN ×2 (11:51→20:02)
[2016-07-24] MEDS: SODIUM CHLORIDE 0.9% 1,000 ML IV SCH (12:09)
--- NOTE | 2016-07-24 15:53 | CDI ---
In responding to this query, please exercise your independent professional judgment. The [facility] Coding Staff and Clinical Documentation Specialists appreciate your assistance in clarifying documentation, maintaining compliance with coding guidelines, accurately documenting patients condition and capturing severity of illness. The fact that a question is asked does not imply that any particular answer is desired or expected. Communication forms are a method of clarifying documentation and are not made part of the Legal Health Record. Thank you in advance for your clarification. Last Revision, December 2014 Quynh Reynolds [address] [address] Documentation Clarification Form Date: 07/24/2016 3:37:00 PM From: Alexandria Macedo RN, CDS Admit Date: 07/23/2016 11:01:00 AM Patient Name: Clyde Pascual Visit Number: [id number] Jyotsna Theodore CNP and Dr. Simone Walters, 65 y/o patient admitted for Nausea/vomiting with Duodenal Stricture, poor appetite, 2.45 KG unintentional weight loss, Treated with Dietitian consult, Ensure Clear TID while on Clear liquids History/Risk Factors: Duodenal stricture, Clinical Indicators: Weight Loss: 2.45 KG lost unintentional, consuming 0-25% meals/clear liquids, Current BMI: 24.4, Treatment: Dietitian consult, Ensure Clear TID while on Clear liquids, will advance to Ensure Enlive when taking po food In your professional opinion, can you please clarify if these findings signify one of the following conditions? Mild Protein-Calorie Malnutrition Moderate Protein Malnutrition Moderate Protein-Calorie Malnutrition Other condition, please specify Unable to determine Please document in your progress notes and discharge summary in order to capture severity of illness and risk of mortality. Include clinical findings that support your diagnosis. FYI: Press F11 to launch patient chart. Place X here if this finding has no clinical significance, is not applicable or if you are not able to provide any additional documentation. MTDD
--- NOTE | 2016-07-24 15:59 | P.GSCN ---
History of Present Illness Consult date: 07/24/16 Reason for Consult: Abdominal pain History of present illness: Patient hospitalized with abdominal pain. He points to the right mid abdomen. He had a CAT scan performed showing no definite abnormalities in that location to explain his pain. Some residual inflammatory changes around the gastroduodenal junction are appreciated. He has a history of a known stricture there. He has had intermittent episodes of vomiting. He had one of those episodes recently was bilious in nature. He says he was vomiting up to 10 times a day. He had a recent HIDA scan was normal. Gallbladder appears normal on the recent CAT scan. No change in bowel habits. Review of Systems The patient denies any acute changes in his vision or hearing, no dysphagia or odynophagia, no chest pain or shortness of breath, no dysuria or hematuria, no headache, no runny nose, no rectal bleeding or melena, no unexplained weight loss Past Medical History Past Medical History: Coronary Artery Disease (CAD), Chest Pain / Angina, Eye Disorder, GERD/Reflux, Hyperlipidemia, Hypertension, Myocardial Infarction ([place]) , Osteoarthritis (OA) Additional Past Medical History / Comment(s): SVT with ablation, gastric ulcers , chronic duodenal stricture, bilateral glaucoma, sinusitis, migraines, anemia, esophagitis,hiatal hernia, chronic back pain, past fx ribs/sternum Last Myocardial Infarction Date:: 1999 History of Any Multi-Drug Resistant Organisms: None Reported Past Surgical History: Cardiac Ablation, Heart Catheterization With Stent Additional Past Surgical History / Comment(s): sinus surgery, cataracts bilaterally with lens implants, EGDs/colonoscopies, sinus surgery due to accident. Past Anesthesia/Blood Transfusion Reactions: No Reported Reaction Additional Past Anesthesia/Blood Transfusion Reaction / Comm: Pt has had past multiple transfusions without reaction. Date of Last Stent Placement:: 1999 Past Psychological History: No Psychological Hx Reported Additional Psychological History / Comment(s): Pt resides with his spouse. 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 He is independent. Smoking Status: Former smoker Past Alcohol Use History: None Reported Additional Past Alcohol Use History / Comment(s): Pt states he started smoking in 1993 and quit in 1999 Past Drug Use History: None Reported - Past Family History Father Additional Family Medical History / Comment(s): Father at the age of 68yrs from a ruptured aortic aneurysm. Mother Family Medical History: Hyperlipidemia, Hypertension Additional Family Medical History / Comment(s): Mother lived into her 80's. Medications and Allergies Home Medications Medication Instructions Recorded Confirmed Type ALPRAZolam [Xanax] 0.25 mg PO TID PRN 07/12/13 07/23/16 History Carisoprodol [Soma] 350 mg PO TID PRN 07/12/13 07/23/16 History Metoprolol Tartrate [Lopressor] 25 mg PO BID 07/12/13 07/23/16 History Simvastatin [Zocor] 40 mg PO HS 07/12/13 07/23/16 History Temazepam [Restoril] 30 mg PO HS PRN 07/12/13 07/23/16 History Amitriptyline HCl 10 mg PO HS 01/26/16 07/23/16 History Nitroglycerin Sl Tabs [Nitrostat] 0.4 mg SUBLINGUAL Q5M PRN 01/28/16 07/23/16 History Brimonidine Tartrate [Alphagan P 1 drops BOTH EYES BID 02/20/16 07/23/16 History 0.2% Ophth Soln] Buta/APAP/Caf/Cod 24-510-08-30 1 cap PO Q8H PRN 02/20/16 07/23/16 History [Fioricet w/Cod 08-715-78-30MG] Latanoprost [Xalatan 0.005%] 1 drop BOTH EYES HS 02/20/16 07/23/16 History Aspirin [Adult Low Dose Aspirin EC] 81 mg PO BID 06/26/16 07/23/16 History Pantoprazole Sodium 40 mg PO BID 06/26/16 07/23/16 History Sucralfate [Carafate] 1 gm PO BID 06/26/16 07/23/16 History Allergies Allergy/AdvReac Type Severity Reaction Status Date / Time atorvastatin [From Lipitor] AdvReac Unknown Verified 07/23/16 07:56 Surgical - Exam Vital Signs Temp Pulse Resp BP Pulse Ox 98.1 F 83 18 161/84 99 07/23/16 07:10 07/23/16 07:10 07/23/16 07:10 07/23/16 07:10 07/23/16 07:10 Physical exam: General: Well-developed, well-nourished HEENT: Normocephalic, sclerae nonicteric Abdomen: Mild right mid abdominal tenderness, nondistended Extremities: No edema Neuro: Alert and oriented Results - Labs 07/24/16 09:50 07/24/16 09:50 Abnormal Lab Results - Last 24 Hours (Table) 07/24/16 07/24/16 Range/Units 09:50 09:50 RBC 3.98 L (4.30-5.90) m/uL Hgb 11.9 L (13.0-17.5) gm/dL Hct 33.8 L (39.0-53.0) % Sodium 119 L* (137-145) mmol/L Chloride 89 L (98-107) mmol/L Carbon Dioxide 20 L (22-30) mmol/L BUN 5 L (9-20) mg/dL Creatinine 0.52 L (0.66-1.25) mg/dL Glucose 107 H (74-99) mg/dL Calcium 8.3 L (8.4-10.2) mg/dL Diabetes panel 07/24/16 Range/Units 09:50 Sodium 119 L* (137-145) mmol/L Potassium 3.9 (3.5-5.1) mmol/L Chloride 89 L (98-107) mmol/L Carbon Dioxide 20 L (22-30) mmol/L BUN 5 L (9-20) mg/dL Creatinine 0.52 L (0.66-1.25) mg/dL Glucose 107 H (74-99) mg/dL Calcium 8.3 L (8.4-10.2) mg/dL Calcium panel 07/24/16 Range/Units 09:50 Calcium 8.3 L (8.4-10.2) mg/dL Pituitary panel 07/24/16 Range/Units 09:50 Sodium 119 L* (137-145) mmol/L Potassium 3.9 (3.5-5.1) mmol/L Chloride 89 L (98-107) mmol/L Carbon Dioxide 20 L (22-30) mmol/L BUN 5 L (9-20) mg/dL Creatinine 0.52 L (0.66-1.25) mg/dL Glucose 107 H (74-99) mg/dL Calcium 8.3 L (8.4-10.2) mg/dL Adrenal panel 05/25/17 Range/Units 09:50 Sodium 119 L* (137-145) mmol/L Potassium 3.9 (3.5-5.1) mmol/L Chloride 89 L (98-107) mmol/L Carbon Dioxide 20 L (22-30) mmol/L BUN 5 L (9-20) mg/dL Creatinine 0.52 L (0.66-1.25) mg/dL Glucose 107 H (74-99) mg/dL Calcium 8.3 L (8.4-10.2) mg/dL Assessment and Plan (1) Abdominal pain Narrative/Plan: Continue antiacid therapy. No plans for cholecystectomy at this time. Continue GI workup of the patient's pain which may include gastric emptying study as mentioned and their consult. Status: Acute
[2016-07-24] MEDS: SODIUM CHLORIDE TAB 1 GM TAB PO SCH ×3 (17:46→21:45)
[2016-07-24] MEDS: AMITRIPTYLINE HCL 10 MG TAB PO SCH (20:02)
[2016-07-24] MEDS: LATANOPROST 0.005% OPHTH DROPS 2.5 ML BTL BOTH EYES SCH (20:02)
[2016-07-24] MEDS: SIMVASTATIN 40 MG PO SCH (20:03)
--- NOTE | 2016-07-24 22:00 | HP ---
DATE OF ADMISSION: 07/23/2016 PRESENTING COMPLAINT: Abdominal pain, nausea, vomiting. HISTORY OF PRESENTING COMPLAINT: This is a pleasant 65-year-old patient well known to me from multiple prior admissions. The patient follows with Dr. Yuen. Patient's chronic stable medical conditions include coronary artery disease with stent, gastroesophageal reflux disease, hypercholesterolemia, hypertension, hiatal hernia. The patient has a known duodenal stricture per EGD in January 31 per Francia Subramanian. The possibly dilatation being there. Patient presents with 2 days increasing abdominal pain, nausea, vomiting, no fever and presented here. No diarrhea. Tired, rundown. REVIEW OF SYSTEMS: CONSTITUTIONAL: Tired. HEENT: None. RESPIRATORY: None. CARDIOVASCULAR: None. GASTROINTESTINAL: As above. GENITOURINARY: None. MUSCULOSKELETAL: None. DERMATOLOGICAL: Chronic white patches. HEMATOLOGICAL: None. LYMPHATIC: None. PSYCHIATRY: None. NEUROLOGICAL: None. Past medical history of coronary artery disease with stent, GERD, hypercholesterolemia, hypertension, SVT ablation, gastric ulcer, duodenal stricture, hiatal hernia, chronic low back pain. PAST SURGICAL HISTORY: Cardiac ablation, cardiac cath with stent, ( ) bilaterally, EGD, colonoscopy. 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 Stopped smoking in 2005, smoked about 60 years. Family history of hyperlipidemia. Father had ruptured aortic aneurysm. ALLERGIES: None. HOME MEDICATIONS: 1. Restoril 30 mg q.h.s. p.r.n. 2. Carafate 1 gram p.o. b.i.d. 3. Zocor 40 mg q.h.s. 4. Protonix 40 mg b.i.d. 5. Zofran 4 mg q.8 p.r.n. 6. Nitrostat 0.4 sublingual q.5 p.r.n. 7. Lopressor 25 mg p.o. b.i.d. 8. Dilantin 0.005% one drop to both eyes at bedtime. 9. Soma 350 mg p.o. t.i.d. p.r.n. 10. Fioricet 1 capsule p.o. q.8 p.r.n. 11. Alphagan 0.2% one drop to both eyes b.i.d. 12. Aspirin 81 mg p.o. b.i.d. 13. Amitriptyline 10 mg q.h.s. 14. Xanax 0.25 p.o. t.i.d. p.r.n. ALLERGIES: LIPITOR. PHYSICAL EXAMINATION: Vital signs on presentation: Temperature 97.7, pulse 82, respirations 16, blood pressure 164/87, pulse ox 99% on room air. GENERAL APPEARANCE: Average build, lying in bed, tired appearing. EYES: Pupils equal. Conjunctivae normal. HEENT: External appearance of nose and ears normal. Oral cavity normal. NECK: JVD not raised. Mass not palpable. RESPIRATORY: Effort normal. Lungs are clear. CARDIOVASCULAR: First and second sounds normal. No edema. ABDOMEN: Soft, diffuse tenderness mostly on the right side. Mostly in the right lower quadrant and some in the mid to upper abdomen. No guarding or rigidity. LYMPHATIC: No lymph node palpable in neck or axillae. PSYCHIATRY: Alert and oriented x3. Mood slightly anxious -appearing. NEUROLOGICAL: Pupils equal. Cranial nerves grossly intact. Power and sensation grossly intact. INVESTIGATIONS: White count 8.5, hemoglobin 11.9, sodium 122, potassium 3.5. BUN 5, creatinine 0.53. UA negative. CT scan of the abdomen and pelvis shows possible enteritis/colitis. Findings at the gastric junction as described, some prostate enlargement. ASSESSMENT: 1. This is a patient who presented with diffuse abdominal pain mostly in the right mid to lower abdomen. No obvious Pedraza's sign. No fever. This well could be underlying enteritis. 2. Hyponatremia, probably hypoosmolar from poor oral intake. 3. Coronary artery disease with prior history of stent. 4. Gastroesophageal reflux disease. 5. Chronic hypercholesterolemia. 6. Essential hypertension. 7. Duodenal stricture, chronic. 8. Chronic low back pain from osteoarthritis. PLAN: GI Dr. Connolly consulted. Patient was reviewed by Patti, nurse practitioner, who thought this could be a surgical abdomen based on the CT scan findings. I did talk to Dr. Marcus. At this point, does not appear to be anything surgical. Will let them make a final determination. Will check the patient's serum osmolality. Patient will be put on a sodium restriction. Will get the patient salt tablets. DVT prophylaxis.
[2016-07-25] MEDS: SODIUM CHLORIDE 0.9% 1,000 ML IV SCH ×2 (01:03→11:44)
[2016-07-25] MEDS: MORPHINE SULFATE 4 MG/ML SYRINGE IV PRN ×4 (02:14→21:02)
[2016-07-25] MEDS: ALPRAZolam 0.25 MG TAB PO PRN ×3 (04:18→21:16)
[2016-07-25] MEDS: METOCLOPRAMIDE 5 MG/ML 2 ML VIAL IVP SCH ×4 (05:36→17:06)
[2016-07-25 07:46] VITALS: RESP 16
[2016-07-25] MEDS: SODIUM CHLORIDE TAB 1 GM TAB PO SCH ×4 (08:13→21:05)
[2016-07-25] MEDS: BRIMONIDINE TARTRATE 0.2% DROPS 5 ML BTL BOTH EYES SCH ×2 (08:14→21:04)
[2016-07-25] MEDS: METOPROLOL TARTRATE 25 MG TAB PO SCH ×2 (08:14→21:05)
[2016-07-25] MEDS: PANTOPRAZOLE 40 MG TABLET PO SCH ×2 (08:14→16:43)
[2016-07-25 08:39] LABS: ALT 23 U/L (21-72); AST 14 U/L (17-59); Alkaline Phosphatase 79 U/L (38-126); Anion Gap 12 mmol/L; Blood Urea Nitrogen 5 mg/dL (9-20); Calcium 8.7 mg/dL (8.4-10.2); Carbon Dioxide 21 mmol/L (22-30); Chloride 97 mmol/L (98-107); Glucose 107 mg/dL (74-99); Non-African American GFR(MDRD) >60 (>60 ml/min/1.73 sqM); Potassium 3.9 mmol/L (3.5-5.1); Sodium 130 mmol/L (137-145); Total Bilirubin 0.6 mg/dL (0.2-1.3); Total Protein 6.6 g/dL (6.3-8.2)
--- NOTE | 2016-07-25 10:55 | P.PN ---
Subjective Principal diagnosis: Abdominal pain 65-year-old male with a history of nonobstructing smooth duodenal stricture status post EGD 3 weeks ago. Presents with acute on chronic abdominal pain nausea vomiting mostly toward the right side abdomen. Evaluated by general surgery yesterday in regards to HIDA scan greater than 80% no surgical intervention planned at this time. Patient feels better today but still has some mild abdominal discomfort. No emesis. Afebrile. Objective - Vital Signs Vital signs: Vital Signs Temp 96.8 F L 07/25/16 07:00 Pulse 90 07/25/16 08:00 Resp 16 07/25/16 08:00 BP 132/66 07/25/16 07:00 Pulse Ox 97 07/25/16 07:00 Intake & Output 07/24/16 07/25/16 07/25/16 18:59 06:59 18:59 Intake Total 300 200 Output Total 900 1100 1000 Balance -600 -900 -1000 Weight 81.647 kg Intake: Oral 300 200 Output: Urine 900 1100 1000 Other: Voiding Method Urinal Urinal Urinal # Voids 1 2 - Exam General appearance: The patient is alert, oriented, in no acute distress. HET: Head is normocephalic and atraumatic. Pupils are equal and reactive. Oropharynx is clear without lesions. Neck: Supple without lymphadenopathy. Trachea midline. Heart: S1 S2. Regular rate and rhythm. Lungs: No crackles or wheezes are heard. Abdomen: Soft, very mild mid to right lower quadrant abdominal discomfort, nondistended with bowel sounds. No peritoneal signs. No palpable organomegaly or masses. Extremities: Normal skin color and turgor. No cyanosis, rash, ulceration, clubbing, or edema. Radial and pedal pulses are 2/4 bilaterally. Neurological: No focal deficits. Strength and sensation are grossly intact. - Labs CBC & Chem 7: 07/24/16 09:50 07/25/16 07:32 Labs: Abnormal Lab Results - Last 24 Hours (Table) 07/24/16 07/25/16 Range/Units 09:35 07:32 Sodium 130 L (137-145) mmol/L Chloride 97 L (98-107) mmol/L Carbon Dioxide 21 L (22-30) mmol/L BUN 5 L (9-20) mg/dL Creatinine 0.56 L (0.66-1.25) mg/dL Glucose 107 H (74-99) mg/dL Osmolality 241 L* (280-301) mosm/kg AST 14 L (17-59) U/L Assessment and Plan (1) Abdominal pain Narrative/Plan: Acute on chronic abdominal pain right mid to lower lower quadrant with nausea vomiting unclear etiology. EGD earlier this month with findings of a consistent nonobstructive smooth duodenal stricture with negative biopsies unchanged from previous exam in January 2016. Status: Acute (2) Duodenal stricture Status: Acute (3) Hyponatremia Status: Acute Plan: 1. General surgery evaluation recommendations appreciated. 2. We'll proceed with a small bowel follow-through today evaluate right-sided abdominal pain. 3. Outpatient gastric emptying study was discussed at this time hold for now await SBFT report. 4. Bentyl 10 mg 3 times a day for abdominal discomfort spasms. 5. Continue supportive measures GI prophylaxis. Assessment and plan a care discussed with Dr. Subramanian.
--- NOTE | 2016-07-25 13:58 | FL ---
Small bowel follow-through HISTORY: Abdominal pain Correlation CT abdomen pelvis 23 Jul 2016 Patient was given 16 ounces of Visipaque orally. Sequential films were obtained over the abdomen. Spo t films obtained of the right lower quadrant. Hydraulics Teacher film shows some scoliosis, degenerative disc change present at the lower lumbar spine. Lung bas es are clear. There is no bowel obstruction or pneumoperitoneum. Small bowel fold pattern is normal. There is no fixation of bowel, fistula formation or extravasation. At the level of the gastroduodenal junction there is a focal outpouching as correlated on prior CT. Terminal ileum not well seen due to superimposition of bowel loops. IMPRESSION: Focal dilation at the gastroesophageal junction is possibly related to patient's prior pr ocedure. Otherwise unremarkable small bowel follow-through.
[2016-07-25] MEDS: DICYCLOMINE 10 MG CAP PO SCH ×2 (16:43→21:05)
[2016-07-25] MEDS: SIMVASTATIN 40 MG PO SCH (21:03)
[2016-07-25] MEDS: LATANOPROST 0.005% OPHTH DROPS 2.5 ML BTL BOTH EYES SCH (21:04)
[2016-07-25] MEDS: AMITRIPTYLINE HCL 10 MG TAB PO SCH (21:05)
--- NOTE | 2016-07-25 22:05 | PN ---
DATE OF SERVICE: 07/25/2016 PRESENTING COMPLAINT: Abdominal pain, nausea, vomiting. INTERVAL HISTORY: This is a patient who presented with diffuse abdominal pain. Today the patient continues to complain of right lower quadrant pain closer to the midline. Patient has been advanced to a clear liquid diet and says he is able to tolerate that well. Patient has been up and around, using the bathroom and walking around in the room. Review of systems was done for constitutional, cardiovascular, pulmonary, with relevant findings as above. CURRENT MEDICATIONS: 1. Fioricet with codeine 1 tablet p.o. q.8 hours. 2. Xanax 0.25 mg p.o. t.i.d. 3. Elavil 10 mg p.o. at bedtime. 4. Bentyl 10 mg p.o. t.i.d. 5. Reglan 5 mg IV push q.6 hours. 6. Lopressor 25 mg p.o. b.i.d. 7. Protonix 40 mg p.o. before meals b.i.d. 8. Scopolamine 1 patch q.72 hours. PHYSICAL EXAMINATION: VITAL SIGNS: Temperature 96.8, pulse 90, respiratory rate 16, blood pressure 132/66, oxygen saturation 97% on room air. GENERAL APPEARANCE: Patient is lying in bed. No acute distress noted or voiced. Patient does not appear to be having any acute pain. EYES: Pupils equal. Conjunctivae normal. NECK: JVD not raised. Mass not palpable. LUNGS: Sounds diminished bilaterally. RESPIRATORY: Effort normal. CARDIOVASCULAR: First and second sounds normal. Trace edema. ABDOMEN: Soft, nontender. Liver and spleen not palpable. PSYCHIATRY: Alert and oriented x3. Mood and affect are normal. INVESTIGATIONS: Hemoglobin 11.9, platelet count 347. Sodium 130, potassium 3.9. BUN 5, creatinine 0.56. Small-bowel follow-through showed focal dilatation at the gastroesophageal junction, possibly related to patient's prior procedures; otherwise unremarkable. ASSESSMENT: 1. Diffuse abdominal pain; could likely be enteritis. 2. Hyponatremia, likely hyperosmolar from poor oral intake. 3. Coronary artery disease with prior history of stents. 4. Gastroesophageal reflux disease. 5. Chronic hypercholesterolemia. 6. Essential hypertension. 7. Duodenal stricture, chronic. 8. Chronic low back pain from osteoarthritis. PLAN: Small-bowel follow-through was completed per GI's recommendations in addition to adding Bentyl 10 mg 3 times daily for abdominal discomfort and spasms. Will continue to follow closely. Patient was seen and examined by nurse practitioner, Jyotsna Theodore, and all elements of the case were discussed with attending, Dr. Walters.
[2016-07-26] MEDS: METOCLOPRAMIDE 5 MG/ML 2 ML VIAL IVP SCH ×5 (00:29→23:25)
[2016-07-26] MEDS: SODIUM CHLORIDE 0.9% 1,000 ML IV SCH ×2 (00:33→10:41)
[2016-07-26] MEDS: TEMAZEPAM 30 MG CAP PO PRN (00:36)
[2016-07-26] MEDS: MORPHINE SULFATE 4 MG/ML SYRINGE IV PRN ×5 (03:13→20:40)
[2016-07-26] MEDS: BRIMONIDINE TARTRATE 0.2% DROPS 5 ML BTL BOTH EYES SCH ×2 (08:10→20:41)
[2016-07-26] MEDS: PANTOPRAZOLE 40 MG TABLET PO SCH ×2 (08:10→16:48)
[2016-07-26] MEDS: METOPROLOL TARTRATE 25 MG TAB PO SCH ×2 (08:11→20:41)
[2016-07-26] MEDS: DICYCLOMINE 10 MG CAP PO SCH ×3 (08:11→20:42)
[2016-07-26] MEDS: SODIUM CHLORIDE TAB 1 GM TAB PO SCH ×4 (08:11→20:42)
[2016-07-26] MEDS: ALPRAZolam 0.25 MG TAB PO PRN ×2 (08:20→20:50)
[2016-07-26 10:12] LABS: ALT 23 U/L (21-72); AST 13 U/L (17-59); Alkaline Phosphatase 59 U/L (38-126); Anion Gap 8 mmol/L; Blood Urea Nitrogen 4 mg/dL (9-20); Calcium 8.4 mg/dL (8.4-10.2); Carbon Dioxide 20 mmol/L (22-30); Chloride 106 mmol/L (98-107); Glucose 141 mg/dL (74-99); Non-African American GFR(MDRD) >60 (>60 ml/min/1.73 sqM); Potassium 3.3 mmol/L (3.5-5.1); Sodium 134 mmol/L (137-145); Total Bilirubin 0.4 mg/dL (0.2-1.3); Total Protein 5.7 g/dL (6.3-8.2)
[2016-07-26] MEDS ORDERED: Potassium Replacement Protocol 1 EACH MISC MISCELLANE PRN (10:45)
[2016-07-26] MEDS: POTASSIUM CHLORIDE 10 MEQ, LIDOCAINE 2% INJ 10 MG in SODIUM CHLORIDE 0.9% 100 ML IV SCH ×2 (12:13→14:26)
--- NOTE | 2016-07-26 12:18 | PN ---
DATE OF SERVICE: 07/25/2016 ATTENDING NOTE: This patient was seen and examined by me. I reviewed the note of my nurse practitioner, Ms. Theodore and discussed and agreed with the same. This a patient admitted with acute abdominal pain, felt to be more of enteritis. I discussed with Dr. Marcus, did not feel this to be cholecystitis. The patient also has got a duodenal stricture, that is being followed by Dr. Subramanian as an outpatient. Patient's nausea, vomiting is better, tolerating some liquids, more restful in bed. On examination, decreased abdominal tenderness. Bowel sounds are present. Patient more comfortable. CARDIOVASCULAR: First and second sounds normal. INVESTIGATIONS: Sodium 130, potassium 3.9. ASSESSMENT: 1. Acute abdominal pain, likely enteritis with clinical improvement. 2. Severe hypoosmolar hyponatremia with clinical improvement. 3. Chronic duodenal stricture. PLAN: Some Bentyl was added for abdominal spasm. This could be used on a p.r.n. basis. Diet will be advanced. Patient also put on fluid restriction, salt tablet because of the sodium, which seems to be coming up. Patient is encouraged to be out of bed.
--- NOTE | 2016-07-26 13:02 | PN ---
DATE OF SERVICE: 07/26/2016 The patient is a 65-year-old pleasant white male admitted to the hospital 3 days ago with abdominal pain, nausea, vomiting. He did have CT of the abdomen and pelvis that was unremarkable. He had recent hospitalizations about a month ago for similar reasons, had an upper endoscopy done that showed duodenal narrowing, but no obstruction. Colonoscopy by Dr. Marcus 2 years ago was unremarkable. During this hospitalization, he did have a small bowel series yesterday that was unremarkable. In the meantime, the patient says that the pain is more in the right lower quadrant area. Denies any significant change in his bowel habits. Still has some nausea, but no emesis. Presently on a clear liquid diet, tolerating well. On physical examination, appears comfortable in no apparent distress. Vital signs are stable. Blood pressure is 164/77, pulse rate 90, temperature afebrile. HEENT EXAMINATION: Unremarkable. Conjunctivae pink. Sclerae anicteric. Oral cavity, no lesions. NECK: No JVD or lymph node enlargement. HEART: Regular rate and rhythm. ABDOMEN: Soft. Bowel sounds are positive. No organomegaly. There is mild tenderness in the right lower quadrant area. EXTREMITIES: No pedal edema. SKIN: No rashes. NEURO: Alert and oriented x3. No focal deficits. Labs done from yesterday CBC with differential count is within normal limits. Sodium is 130, potassium is 3.9, BUN and creatinine are within normal limits. IMPRESSION: This is patient is a chronic intermittent abdominal pain associated with nausea, vomiting, some change in bowel habits who underwent extensive investigations over the last few months as mentioned above. Small bowel series done yesterday was also unremarkable. Most likely his symptoms could be related to irritable bowel syndrome. He was evaluated by Dr. Marcus who does not think it is gallbladder related wither. RECOMMENDATIONS: 1. Trial of Bentyl 10 mg 3 times daily as needed. 2. High fiber diet. 3. Advance diet as tolerated and if he is able to tolerate food he can be discharged home with outpatient followup in 2 weeks.
[2016-07-26] MEDS: LATANOPROST 0.005% OPHTH DROPS 2.5 ML BTL BOTH EYES SCH (20:41)
[2016-07-26] MEDS: AMITRIPTYLINE HCL 10 MG TAB PO SCH (20:41)
[2016-07-26] MEDS: SIMVASTATIN 40 MG PO SCH (20:41)
[2016-07-27] MEDS: MORPHINE SULFATE 4 MG/ML SYRINGE IV PRN ×3 (01:19→09:48)
[2016-07-27] MEDS: TEMAZEPAM 30 MG CAP PO PRN (01:31)
[2016-07-27] MEDS: METOCLOPRAMIDE 5 MG/ML 2 ML VIAL IVP SCH ×2 (05:26→12:27)
[2016-07-27 08:19] VITALS: BP 138/77; PULSE 73; TEMP 98.1
[2016-07-27 08:22] LABS: Basophils # (A) 0.1 k/uL (0-0.2); Basophils % (A) 1 %; CH 28.9; CHCM 33.2; Eosinophils # (A) 0.2 k/uL (0-0.7); Eosinophils % (A) 4 %; HGB 11.2 gm/dL (13.0-17.5); Luc # (Auto) 0.19; Luc % (Auto) 3; Lymphocytes # (A) 1.5 k/uL (1.0-4.8); Lymphocytes % (A) 26 %; MCV 87.5 fL (80.0-100.0); Mean Platelet Volume 6.1; Monocytes # (A) 0.5 k/uL (0-1.0); Monocytes % (A) 8 %; Neutrophils # (A) 3.4 k/uL (1.3-7.7); Neutrophils % (A) 58 %; RDW 14.3 % (11.5-15.5); WBC 5.8 k/uL (3.8-10.6); WBC (Perox) 5.81
[2016-07-27 08:41] LABS: ALT 25 U/L (21-72); AST 18 U/L (17-59); Alkaline Phosphatase 66 U/L (38-126); Anion Gap 9 mmol/L; Blood Urea Nitrogen 3 mg/dL (9-20); Calcium 9.1 mg/dL (8.4-10.2); Carbon Dioxide 24 mmol/L (22-30); Chloride 104 mmol/L (98-107); Glucose 108 mg/dL (74-99); Non-African American GFR(MDRD) >60 (>60 ml/min/1.73 sqM); Potassium 3.5 mmol/L (3.5-5.1); Sodium 137 mmol/L (137-145); Total Bilirubin 0.6 mg/dL (0.2-1.3); Total Protein 6.5 g/dL (6.3-8.2)
[2016-07-27] MEDS: SODIUM CHLORIDE TAB 1 GM TAB PO SCH ×2 (09:47→12:27)
[2016-07-27] MEDS: BRIMONIDINE TARTRATE 0.2% DROPS 5 ML BTL BOTH EYES SCH (09:47)
[2016-07-27] MEDS: DICYCLOMINE 10 MG CAP PO SCH (09:47)
[2016-07-27] MEDS: METOPROLOL TARTRATE 25 MG TAB PO SCH (09:47)
[2016-07-27] MEDS: ALPRAZolam 0.25 MG TAB PO PRN (09:55)
--- NOTE | 2016-07-27 09:57 | PN ---
DATE OF SERVICE: 07/26/2016 This 65-year-old gentleman who was admitted with abdominal pain, nausea, vomiting, is being closely monitored. The patient had possible enteritis. The patient also had hyponatremia, possibly hypoosmolar from diminished p.o. intake also. The patient being closely monitored at this time. Gastroenterology is following the patient as well. Dr. Subramanian has seen the patient and recommended Bentyl and high fiber diet as well. PAST MEDICAL HISTORY: Reviewed. REVIEW OF SYSTEMS: CARDIOVASCULAR SYSTEM: No angina or palpitations. RESPIRATORY: As mentioned earlier. GI: As mentioned earlier. : No dysuria. Nervous system: No numbness or weakness. Current medications are: 1. Fioricet codeine. 2. Xanax 0.25 t.i.d. 3. Elavil 10 mg q.h.s. 6. Xalatan. 7. Reglan. 8. Lopressor. 9. Narcan. 10. Nitrostat. 11. Simvastatin. 12. Zofran. 13. Protonix. 14. Scopolamine patch. 15. Restoril. PHYSICAL EXAMINATION: Patient is alert and oriented times three. Pulse 80. Blood pressure 151/73. Respiratory rate 16. Temperature 97.7, pulse ox 100% on room air. HEENT: Conjunctivae normal. NECK: No jugular venous distention. CARDIOVASCULAR: S1, S2 muffled. RESPIRATORY: Breath sounds diminished at the bases. A few scattered rhonchi, no crackles. ABDOMEN: Soft. Mild diffuse discomfort. LEGS: No edema. No swelling. CENTRAL NERVOUS SYSTEM: No focal deficits. LABS: Sodium 132, potassium 3.3. Otherwise, albumin 3.2. ASSESSMENT: 1. Diffuse abdominal pain, possible enteritis. 2. Hyponatremia possibly hypoosmolar from poor p.o. intake. 3. Hypokalemia. 4. Coronary artery disease history of stents. 5. Gastroesophageal reflux disease. 6. Chronic hypercholesterolemia. 7. Essential hypertension. 8. Duodenal stricture, chronic. 9. Chronic back pain from degenerative joint disease. RECOMMENDATIONS AND DISCUSSION: Recommend to continue current medications. Continue with monitoring. Symptomatic treatment. See orders for further details. Repeat labs will be ordered. Guarded prognosis because of the multiple complex medical issues. Further recommendations to follow. Continue with the potassium replacement protocol. See orders for further details. Increase ambulation. Further recommendations to follow. MTDD
[2016-07-27] MEDS: PANTOPRAZOLE 40 MG TABLET PO SCH (09:58)
[2016-07-27] MEDS: SCOPOLAMINE 1.5MG/72HR PATCH TRANSDERM SCH (11:15)
--- NOTE | 2016-07-27 15:08 | PN ---
DATE OF SERVICE: 07/27/2016 BRIEF HISTORY: Patient is a 65-year-old pleasant white male admitted to the hospital with abdominal pain, nausea, vomiting, diarrhea. He is doing much better. Still has some pain in the right lower quadrant area, but overall feeling much better. He was started on Bentyl 2 days ago and he feels the abdominal pain is gradually improving. He was started on Reglan for the nausea also. On physical examination, he appears comfortable in no apparent distress. Vitals as are stable. Blood pressure 144/89, pulse is 75, temperature 98.3. HEENT: Unremarkable. Conjunctivae are pink. Sclerae anicteric. Oral cavity, no lesions. NECK: No JVD or lymph node enlargement. Chest was clear to auscultation. HEART: Regular rate and rhythm. ABDOMEN: Soft. Bowel sounds are positive. No organomegaly. Mild pain in the right lower quadrant area. EXTREMITIES: No pedal edema. SKIN: No rashes. NEURO: Alert and oriented x3. No focal deficits. LABS: CBC showed a hemoglobin of 11.2 and otherwise it was normal. Basic metabolic panel is normal. Sodium is 137. IMPRESSION: 1. Chronic intermittent abdominal pain with nausea, vomiting, diarrhea for the last several months' duration. Most likely we are dealing with irritable bowel syndrome, on Bentyl 10 mg 3 times daily and gradually improving. 2. Hyponatremia, resolved. 3. Nausea, vomiting, improving. RECOMMENDATIONS: 1. Continue with Bentyl 10 mg 3 times daily as needed. 2. Continue with antiemetics as needed. 3. He can be discharged home with outpatient follow up in 2 weeks.
--- NOTE | 2016-07-28 15:09 | DS ---
DATE OF ADMISSION: 07/23/2016 DATE OF DISCHARGE: 07/27/2016 FINAL DIAGNOSES: 1. Diffuse abdominal pain, possible enteritis. 2. Hyponatremia possibly hypoosmolar from poor p.o. intake. 3. Hypokalemia. 4. History of coronary artery disease. 5. Gastroesophageal reflux disease. 6. Chronic hypercholesterolemia. 7. Essential hypertension. 8. Duodenal stricture, chronic. 9. Chronic low back pain from degenerative joint disease. DISCHARGE DISPOSITION: The patient will be discharged in a stable condition with guarded prognosis. This 65-year-old gentleman with a past medical history of multiple medical problems admitted with features of enteritis and abdominal and as well as hyponatremia treated symptomatically. Sodium improved to 137. On exam, vitals are stable. CARDIOVASCULAR SYSTEM: S1, S2 muffled. ABDOMEN: Soft. Nervous system: No focal deficits. Dr. Subramanian saw the patient and recommended outpatient follow-up. Also recommend outpatient evaluation for continued recurrent hyponatremia as well. DISCHARGE INSTRUCTIONS: 1. Diet is cardiac, soft, bland. 2. Activity limited until follow-up. 3. Follow-up with Dr. Yuen in 1 to 2 days. Medications are: 1. Xanax 0.25 t.i.d. p.r.n. 2. Amitriptyline 10 mg q.h.s. 3. Ecotrin 81 mg p.o. b.i.d. 4. Alphagan 0.2 1 drop both eyes. 5. Fioricet one p.o. 8 p.r.n. 6. Soma 350 mg p.o. t.i.d. 7. Bentyl 10 mg p.o. t.i.d. p.r.n. 8. [place] 5 mg q.6 p.r.n. 9. Xalatan 0.012 drops both eyes daily. 10. Lopressor 20 mg p.o. b.i.d. 11. Nitrostat 0.4 sublingual p.r.n. 12. Zofran 4 mg q.i.d. p.r.n. 13. Protonix 40 mg p.o. b.i.d. 14. Scopolamine patch 1.5 mg q.72h. 15. Zocor 40 mg q6h p.r.n. 16. Carafate 1 gram p.o. b.i.d. 17. Restoril 30 mg at bedtime p.r.n. Once again, the patient will be discharged in a stable condition with guarded prognosis. MTDD
== END 2016-07-27 13:37 | disposition home or self-care (01) | DRG 392 ==
LOC: EC 06:57 → 4MS4W 11:01
PROVIDERS: ADMIT Hospitalist; ATTEND Hospitalist
DX: K52.9 Noninfective gastroenteritis and colitis, unspecified (principal); K31.5 Obstruction of duodenum; I10 Essential (primary) hypertension; E87.1 Hypo-osmolality and hyponatremia; E78.00 Pure hypercholesterolemia, unspecified; E78.5 Hyperlipidemia, unspecified; E87.6 Hypokalemia; G89.29 Other chronic pain; H40.9 Unspecified glaucoma; I25.10 Atherosclerotic heart disease of native coronary artery without angina pectoris; I25.2 Old myocardial infarction; K21.9 Gastro-esophageal reflux disease without esophagitis; K44.9 Diaphragmatic hernia without obstruction or gangrene; K57.90 Diverticulosis of intestine, part unspecified, without perforation or abscess without bleeding; K58.9 Irritable bowel syndrome, unspecified; M47.9 Spondylosis, unspecified; Z79.82 Long term (current) use of aspirin; Z79.899 Other long term (current) drug therapy; Z82.49 Family history of ischemic heart disease and other diseases of the circulatory system; Z87.11 Personal history of peptic ulcer disease; Z87.891 Personal history of nicotine dependence; Z95.5 Presence of coronary angioplasty implant and graft; Z96.1 Presence of intraocular lens; M54.5 Low back pain
CPT/HCPCS: 36415; 74177; 74250; 80048; 80053; 81003; 82150; 83605; 83690; 83735; 83930; 84134; 85025; 85610; 85730; 93005; 96361; 96374; 96375; 96376; 99285

== ENCOUNTER 2016-08-23 22:06 | Inpatient (IN) | payer MEDICARE ==
[2016-08-23] MEDS ORDERED: SODIUM CHLORIDE 0.9% 1,000 ML IV STA ×2 (22:30)
[2016-08-23] MEDS ORDERED: ONDANSETRON 4 MG/2 ML VIAL IVP STA (22:30)
[2016-08-23] MEDS ORDERED: HYDROmorphone 1 MG/ML 1 ML SYRINGE IVP STA (22:38)
--- NOTE | 2016-08-23 22:45 | ED ---
Nausea/Vomiting/Diarrhea HPI <Ziyad Gatica - Last Filed: 08/24/16 00:56> - General Source: patient, RN notes reviewed, old records reviewed Mode of arrival: wheelchair Limitations: no limitations <FazalRachna - Last Filed: 08/24/16 01:35> - General Chief complaint: Nausea/Vomiting/Diarrhea Stated complaint: abdominal pain/vomiting/diarrhea Time Seen by Provider: 08/23/16 22:27 - History of Present Illness Initial comments: This is a 65-year-old male presenting to emergency Department chief complaint of right lower quadrant pain for the past 3 days, multiple episodes of vomiting and now diarrhea. Patient reports he has been seen and evaluated multiple times , he reports that he sees Dr. Hickman. Patient states that he's had no blood in his vomit or stools. Patient reports that the pain is off and on in the right lower quadrant. Patient reports that he was started on medication and was doing well for 3 weeks however on Thursday started to recur. Patient reports he normally has constipation but he's had this severe diarrhea over the past day.Patient denies any recent fever, chills, shortness of breath, chest pain, back pain, numbness or tingling, dysuria or hematuria, headaches or visual changes, or any other current symptoms (Rachna Diehl) - Related Data Home Medications Medication Instructions Recorded Confirmed ALPRAZolam [Xanax] 0.25 mg PO TID PRN 07/12/13 07/23/16 Carisoprodol [Soma] 350 mg PO TID PRN 07/12/13 07/23/16 Metoprolol Tartrate [Lopressor] 25 mg PO BID 07/12/13 07/23/16 Simvastatin [Zocor] 40 mg PO HS 07/12/13 07/23/16 Temazepam [Restoril] 30 mg PO HS PRN 07/12/13 07/23/16 Amitriptyline HCl 10 mg PO HS 01/26/16 07/23/16 Nitroglycerin Sl Tabs [Nitrostat] 0.4 mg SUBLINGUAL Q5M PRN 01/28/16 07/23/16 Brimonidine Tartrate [Alphagan P 1 drops BOTH EYES BID 02/20/16 07/23/16 0.2% Ophth Soln] Buta/APAP/Caf/Cod 25-889-40-30 1 cap PO Q8H PRN 02/20/16 07/23/16 [Fioricet w/Cod 13-998-32-30MG] Latanoprost [Xalatan 0.005%] 1 drop BOTH EYES HS 02/20/16 07/23/16 Aspirin [Adult Low Dose Aspirin EC] 81 mg PO BID 06/26/16 07/23/16 Pantoprazole Sodium 40 mg PO BID 06/26/16 07/23/16 Sucralfate [Carafate] 1 gm PO BID 06/26/16 07/23/16 Previous Rx's Medication Instructions Recorded Ondansetron Odt [Zofran ODT] 4 mg PO Q8HR PRN #5 tab 02/21/16 Dicyclomine [Bentyl] 10 mg PO TID #90 cap 07/27/16 HYDROcodone/APAP 5-325MG [[place] 5] 1 each PO Q6HR PRN #15 tab 07/27/16 Scopolamine 1.5MG/72Hr Patch 1 patch TRANSDERM Q72H #3 patch 07/27/16 [TransDerm [place]] Allergies Allergy/AdvReac Type Severity Reaction Status Date / Time atorvastatin [From Lipitor] AdvReac Unknown Verified 08/23/16 22:20 Review of Systems ROS Other: All systems not noted in ROS Statement are negative. <Ziyad Gatica - Last Filed: 08/24/16 00:56> ROS Other: All systems not noted in ROS Statement are negative. <Rachna Diehl - Last Filed: 08/24/16 01:35> ROS Statement: Those systems with pertinent positive or pertinent negative responses have been documented in the HPI. Past Medical History Past Medical History: Coronary Artery Disease (CAD), Chest Pain / Angina, Eye Disorder, GERD/Reflux, Hyperlipidemia, Hypertension, Myocardial Infarction ([place]) , Osteoarthritis (OA) Additional Past Medical History / Comment(s): SVT with ablation, gastric ulcers , chronic duodenal stricture, bilateral glaucoma, sinusitis, migraines, anemia, esophagitis,hiatal hernia, chronic back pain, past fx ribs/sternum Last Myocardial Infarction Date:: 1999 History of Any Multi-Drug Resistant Organisms: None Reported Past Surgical History: Cardiac Ablation, Heart Catheterization With Stent Additional Past Surgical History / Comment(s): sinus surgery, cataracts bilaterally with lens implants, EGDs/colonoscopies, sinus surgery due to accident. Past Anesthesia/Blood Transfusion Reactions: No Reported Reaction Additional Past Anesthesia/Blood Transfusion Reaction / Comment(s): Pt has had past multiple transfusions without reaction. Date of Last Stent Placement:: 1999 Past Psychological History: No Psychological Hx Reported Smoking Status: Former smoker Past Alcohol Use History: None Reported Past Drug Use History: None Reported - Past Family History Father Additional Family Medical History / Comment(s): Father at the age of 68yrs from a ruptured aortic aneurysm. Mother Family Medical History: Hyperlipidemia, Hypertension Additional Family Medical History / Comment(s): Mother lived into her 80's. <Rachna Diehl - Last Filed: 08/24/16 01:35> General Exam <Ziyad Gatica - Last Filed: 08/24/16 00:56> Limitations: no limitations General appearance: alert, in no apparent distress Head exam: Present: atraumatic, normocephalic, normal inspection Eye exam: Present: normal appearance, PERRL, EOMI. Absent: scleral icterus, conjunctival injection, periorbital swelling ENT exam: Present: normal exam, mucous membranes moist Neck exam: Present: normal inspection. Absent: tenderness, meningismus, lymphadenopathy Respiratory exam: Present: normal lung sounds bilaterally. Absent: respiratory distress, wheezes, rales, rhonchi, stridor Cardiovascular Exam: Present: regular rate, normal rhythm, normal heart sounds. Absent: systolic murmur, diastolic murmur, rubs, gallop, clicks GI/Abdominal exam: Present: soft, tenderness (Right lower quadrant tenderness near her umbilicus.), normal bowel sounds. Absent: distended, guarding, rebound , rigid Extremities exam: Present: normal inspection, full ROM, normal capillary refill. Absent: tenderness, pedal edema, joint swelling, calf tenderness Back exam: Present: normal inspection Neurological exam: Present: alert, oriented X3, CN II-XII intact Psychiatric exam: Present: normal affect, normal mood Skin exam: Present: warm, dry, intact, normal color. Absent: rash <Rachna Diehl - Last Filed: 08/24/16 01:35> - General Exam Comments Initial Comments: Physical 65-year-old male. Patient does not appear to be in any acute distress. (Rachna Diehl) Medical Decision Making - Lab Data Result diagrams: 08/23/16 22:55 08/23/16 22:55 <Ziyad Gatica - Last Filed: 08/24/16 00:56> - Lab Data Result diagrams: 08/23/16 22:55 08/23/16 22:55 - Radiology Data Radiology results: report reviewed <Rachna Diehl - Last Filed: 08/24/16 01:35> - Medical Decision Making Patient reexamined and resting comfortably in bed. Abdomen soft and nontender. Patient and family updated on results and plan. Case discussed with practitioner Kim, who will admit for Dr. Dey, covering for Dr. muro, who admits for Dr. Weems. (Ziyad Gatica) This is a 65-year-old male presenting to emergency Department chief complaint of right lower quadrant pain for the past 3 days, multiple episodes of vomiting and now diarrhea. Patient's temperature was rechecked and was 99.2. Patient reports he has been seen and evaluated multiple times, he reports that he sees Dr. Hickman. Patient states that he's had no blood in his vomit or stools. Patient reports that the pain is off and on in the right lower quadrant. Patient reports that he was started on medication and was doing well for 3 weeks however on Thursday started to recur. Patient has had no episodes of vomiting or diarrhea while in the [facility]. Patient's labwork was reviewed. Patient does have severe hyponatremia with a sodium of 123. Patient also will be given Potassium replacement. Patient was reevaluated and is nontender. Discussed with recent CAT scan with Dr. Gatica. Patient is nontender at this time, no signs of acute peritonitis. Patient will be admitted for dehydration and intractable nausea and vomiting. Patient will be given gentle IV hydration. Patient will also be managed with nausea medication, and pain management. (Rachna Diehl) - Lab Data Lab Results 08/23/16 08/23/16 08/23/16 Range/Units 22:55 22:55 23:43 WBC 7.7 (3.8-10.6) k/uL RBC 4.04 L (4.30-5.90) m/uL Hgb 12.1 L (13.0-17.5) gm/dL Hct 33.8 L (39.0-53.0) % MCV 83.6 (80.0-100.0) fL MCH 30.0 (25.0-35.0) pg MCHC 35.8 (31.0-37.0) g/dL RDW 13.3 (11.5-15.5) % Plt Count 392 (150-450) k/uL Neutrophils % 64 % Lymphocytes % 18 % Monocytes % 11 % Eosinophils % 4 % Basophils % 1 % Neutrophils # 4.9 (1.3-7.7) k/uL Lymphocytes # 1.4 (1.0-4.8) k/uL Monocytes # 0.8 (0-1.0) k/uL Eosinophils # 0.3 (0-0.7) k/uL Basophils # 0.0 (0-0.2) k/uL Sodium 123 L (137-145) mmol/L Potassium 3.3 L (3.5-5.1) mmol/L Chloride 91 L (98-107) mmol/L Carbon Dioxide 20 L (22-30) mmol/L Anion Gap 12 mmol/L BUN 5 L (9-20) mg/dL Creatinine 0.50 L (0.66-1.25) mg/dL Est GFR (MDRD) Af Amer >60 (>60 ml/min/1.73 sqM) Est GFR (MDRD) Non-Af >60 (>60 ml/min/1.73 sqM) Glucose 124 H (74-99) mg/dL Calcium 8.6 (8.4-10.2) mg/dL Total Bilirubin 0.3 (0.2-1.3) mg/dL AST 15 L (17-59) U/L ALT 29 (21-72) U/L Alkaline Phosphatase 72 (38-126) U/L Total Protein 6.4 (6.3-8.2) g/dL Albumin 3.9 (3.5-5.0) g/dL Amylase 32 (30-110) U/L Lipase 119 (23-300) U/L Urine Color Yellow Urine Appearance Clear (Clear) Urine pH 6.5 (5.0-8.0) Ur Specific [place] 1.007 (1.001-1.035) Urine Protein Negative (Negative) Urine Glucose (UA) Negative (Negative) Urine Ketones Negative (Negative) Urine Blood Negative (Negative) Urine Nitrite Negative (Negative) Urine Bilirubin Negative (Negative) Urine Urobilinogen <2.0 (<2.0) mg/dL Ur Leukocyte Esterase Negative (Negative) Urine Mucus Rare H (None) /hpf - Radiology Data Patient's chest x-ray and abdominal x-ray negative for any acute process. ( Rachna Diehl) Disposition <Ziyad Gatica - Last Filed: 08/24/16 00:56> Time of Disposition: 01:11 <Rachna Diehl - Last Filed: 08/24/16 01:35> Clinical Impression: Hyponatremia, Dehydration, Abdominal pain, Intractable nausea and vomiting Disposition: ADMITTED IP TO THIS [facility] Condition: Good Referrals: Garrison Yuen MD [Primary Care Provider] - 1-2 days
[2016-08-23 23:13] LABS: Basophils % (A) 1 %; CH 29.6; CHCM 35.5; Eosinophils # (A) 0.3 k/uL (0-0.7); Eosinophils % (A) 4 %; HCT 33.8 % (39.0-53.0); HDW 2.83; HGB 12.1 gm/dL (13.0-17.5); Luc # (Auto) 0.27; Luc % (Auto) 4; Lymphocytes # (A) 1.4 k/uL (1.0-4.8); Lymphocytes % (A) 18 %; MCHC 35.8 g/dL (31.0-37.0); MCV 83.6 fL (80.0-100.0); Mean Platelet Volume 5.9; Monocytes # (A) 0.8 k/uL (0-1.0); Monocytes % (A) 11 %; Neutrophils # (A) 4.9 k/uL (1.3-7.7); Neutrophils % (A) 64 %; RBC 4.04 m/uL (4.30-5.90); RDW 13.3 % (11.5-15.5); WBC 7.7 k/uL (3.8-10.6); WBC (Perox) 7.83
[2016-08-23 23:25] LABS: ALT 29 U/L (21-72); AST 15 U/L (17-59); Alkaline Phosphatase 72 U/L (38-126); Amylase 32 U/L (30-110); Anion Gap 12 mmol/L; Blood Urea Nitrogen 5 mg/dL (9-20); Calcium 8.6 mg/dL (8.4-10.2); Carbon Dioxide 20 mmol/L (22-30); Chloride 91 mmol/L (98-107); Glucose 124 mg/dL (74-99); Non-African American GFR(MDRD) >60 (>60 ml/min/1.73 sqM); Potassium 3.3 mmol/L (3.5-5.1); Sodium 123 mmol/L (137-145); Total Bilirubin 0.3 mg/dL (0.2-1.3); Total Protein 6.4 g/dL (6.3-8.2)
--- NOTE | 2016-08-24 | XR ---
Exam: XR CXR 2 VIEWS History: Pain. Comparison: 06/26/16. Findings: No focal consolidation or significant effusion. Cardiomediastinal silhouette is unremarkable. Questionable subtle contour irregularity of the lateral right eighth and ninth ribs, unchanged. Could be due to remote injury. Impression: No focal consolidation.
--- NOTE | 2016-08-24 | XR ---
Exam: XR KUB History: Pain. Comparison: 07/01/16. Technique: 2 views. Findings: No dilated loops of bowel to suggest obstruction. Moderate amount of stool and gas in the proximal colon. Redemonstration of degenerative changes of the lumbar spine. Impression Nonobstructive bowel gas pattern.
[2016-08-24 00:14] LABS: Appearance,Urine Clear (Clear); Bilirubin,Urine Negative (Negative); Glucose,Urine (UA) Negative (Negative); Ketones,Urine Negative (Negative); Leukocyte Esterase,Urine Negative (Negative); Mucus,Urine Rare /hpf; Nitrite,Urine Negative (Negative); PH, Urine 6.5 (5.0-8.0); Particle Count 739; Protein,Urine Negative (Negative); Specific Gravity,Urine 1.007 (1.001-1.035); UA Billing (MACRO vs. MICRO) CHEM; Urobilinogen,Urine <2.0 mg/dL (<2.0)
[2016-08-24] MEDS ORDERED: NALOXONE 0.4 MG/ML 1 ML VIAL IV PRN (01:12)
[2016-08-24] MEDS ORDERED: diphenhydrAMINE 50 MG/ML 1 ML VIAL IVP STA (01:16)
[2016-08-24] MEDS ORDERED: METOCLOPRAMIDE 5 MG/ML 2 ML VIAL IVP STA (01:16)
[2016-08-24] MEDS: HYDROmorphone 1 MG/ML 1 ML SYRINGE IV PRN ×6 (01:30→23:37)
[2016-08-24] MEDS: SODIUM CHLORIDE 0.9% 1,000 ML IV SCH ×2 (01:30→18:04)
[2016-08-24] MEDS ORDERED: NITROGLYCERIN SL TABS 0.4 MG TAB SUBLINGUAL PRN (01:38)
[2016-08-24 02:20] VITALS: BMI 25.1
[2016-08-24] MEDS: ACETAMINOPHEN TAB 325 MG TAB PO PRN (02:32)
[2016-08-24] MEDS: ALPRAZolam 0.25 MG TAB PO PRN ×3 (02:33→23:37)
[2016-08-24] MEDS: POTASSIUM CHLORIDE 10 MEQ, LIDOCAINE 2% INJ 10 MG in SODIUM CHLORIDE 0.9% 100 ML IVPB SCH ×2 (04:38→08:35)
[2016-08-24] MEDS: BRIMONIDINE TARTRATE 0.2% DROPS 5 ML BTL BOTH EYES SCH ×2 (08:36→20:28)
[2016-08-24] MEDS: METOPROLOL TARTRATE 25 MG TAB PO SCH ×2 (08:36→20:28)
[2016-08-24] MEDS: DICYCLOMINE 10 MG CAP PO SCH ×3 (08:36→18:05)
[2016-08-24] MEDS: SUCRALFATE 1 GM TAB PO SCH ×2 (08:36→20:29)
[2016-08-24] MEDS ORDERED: ASPIRIN 81 MG CHEW PO SCH (09:00)
[2016-08-24] MEDS ORDERED: PANTOPRAZOLE 40 MG/10 ML VIAL IV SCH (09:00)
[2016-08-24] MEDS: ONDANSETRON 4 MG/2 ML VIAL IVP PRN ×2 (15:45→23:32)
[2016-08-24] MEDS: HEPARIN SODIUM,PORCINE 5,000 UNIT/ML 1 ML VIAL SQ SCH (20:27)
[2016-08-24] MEDS: PANTOPRAZOLE 40 MG/10 ML VIAL IV SCH (20:28)
[2016-08-24] MEDS: LATANOPROST 0.005% OPHTH DROPS 2.5 ML BTL BOTH EYES SCH (20:28)
[2016-08-24] MEDS: AMITRIPTYLINE HCL 10 MG TAB PO SCH (20:28)
[2016-08-24] MEDS: CARISOPRODOL 350 MG TAB PO PRN (21:40)
[2016-08-24] MEDS: BUTA/APAP/CAF/COD 50-325-40-30 CAP PO PRN (21:40)
[2016-08-25] MEDS: HYDROmorphone 1 MG/ML 1 ML SYRINGE IV PRN ×7 (03:09→23:46)
[2016-08-25] MEDS: SODIUM CHLORIDE 0.9% 1,000 ML IV SCH ×3 (05:31→21:24)
--- NOTE | 2016-08-25 06:22 | HP ---
DATE OF ADMISSION: DATE OF SERVICE: 08/24/2016 CHIEF COMPLAINT: Abdominal pain, nausea and vomiting. HISTORY OF PRESENT ILLNESS: This 65-year-old gentleman with the past medical history of multiple medical problems, CAD, history of chest pain, angina, history of previous enteritis and as well as hyponatremia being followed Dr. Yuen in the outpatient setting, also had history of GERD, hypertension, myocardial infarction, SVT with ablation, gastric ulcer and CAD and stent. The patient is admitted currently with the complaints of abdominal pain, nausea. The patient complains of weak and dehydrated. The patient came to [facility] and admitted further evaluation. The patient was noted to have sodium 123, creatinine was 0.50 and hemoglobin was 12.1. There is no history of fever, rigors. No history of headache, loss of consciousness or seizures. The patient had a chest x-ray after admission which showed no focal consolidation. EKG is not available. No history of any fever, rigors or chills. No history of headache, loss of consciousness or seizures at this time. The abdominal pain is situated in the right upper quadrant with some radiation and sometimes the patient is also complaining of pain in the lower quadrants also. The patient has seen Dr. Marcus and Dr. Subramanian for that. PAST MEDICAL HISTORY: History of CAD, history of GERD, hypertension, hyperlipidemia, hyponatremia, history of SVT, history of diffuse abdominal pain pain, history of DJD, CAD and stent. Medications prior to admission include home medications are: 1. Restoril 30 mg q.h.s. p.r.n. 2. Carafate 1 gram b.i.d. 3. Zocor 40 mg q.h.s. 4. Accupril 10 mg b.i.d. 5. Protonix 40 mg b.i.d. 6. Zofran 4 mg q.8. 7. Nitrostat 0.4 sublingual. 8. Lopressor 25 mg b.i.d. 9. Reglan 5 mg q.6 p.r.n. 10. Xalatan 0.05 one drop both eyes q.h.s. 11. Bentyl 10 mg t.i.d. 12. Soma 350 mg p.o. t.i.d. p.r.n. 13. Fioricet 1 cap q.8 p.r.n. 14. Alphagan 0.2 one drop both eyes b.i.d. 15. Ecotrin 81 mg p.o. b.i.d. 16. Amitriptyline 10 mg p.o. q.h.s. 17. Xanax 0.25 t.i.d. p.r.n. ALLERGIES: LIPITOR. FAMILY HISTORY: History of hyperlipidemia, hypertension. Father at age 68 from ruptured aortic aneurysm. SOCIAL HISTORY: Previous history of smoking. No history of current smoking or alcohol intake. REVIEW OF SYSTEMS: ENT: No diminishing hearing. No diminished vision. CARDIOVASCULAR: No angina. RESPIRATORY: As mentioned earlier. GI: As mentioned earlier. : No dysuria. NERVOUS SYSTEM: No numbness or weakness. ALLERGY/IMMUNOLOGY: No history of asthma or hayfever. MUSCULOSKELETAL: As mentioned earlier. HEMATOLOGY/ONCOLOGY: No history of anemia. ENDOCRINE: No history of diabetes mellitus or hypothyroidism. CONSTITUTIONAL: as mentioned earlier. DERMATOLOGY: Negative. RHEUMATOLOGY: As mentioned earlier. PSYCHIATRY: As mentioned earlier. PHYSICAL EXAMINATION: The patient is alert and oriented x3. Pulse 73, blood pressure 154/83, respirations 16, temperature 98.1, pulse xo 99% on room air. HEENT: Conjunctivae normal. Oral mucosa moist. NECK: No jugular venous distention. No carotid bruit. No lymph node enlargement. CARDIOVASCULAR: S1 and S2, muffled. No S3, no S4. RESPIRATORY: Breath sounds diminished at the bases. A few rhonchi, no crackles. ABDOMEN: Soft. Mild diffuse discomfort on palpation,, otherwise, no guarding or rigidity. No mass palpable. LEGS: No edema, no swelling. NERVOUS SYSTEM: Higher function as mentioned earlier. Moves all 4 limbs. No focal deficits. LYMPHATICS: No lymphadenopathy of neck, axillae or groin. SKIN: No ulcer, rash or bleeding. LABS: WBC 7.7, hemoglobin 12.1. Sodium 123, potassium 3.3. ASSESSMENT: 1. Upper abdominal pain, nausea, vomiting, rule out acute cholelithiasis or cholecystitis. 2. Possible acute gastritis. 3. Hyponatremia. 4. Dehydration with weakness. 5. Hypokalemia. 6. Secondary from vomiting. 7. Anemia, normocytic anemia of chronic disease. 8. History of coronary artery disease and stent. 9. History of gastroesophageal reflux disease. 10. Hypertension. 11. Hyperlipidemia. 12. History of myocardial infarction. 13. History of supraventricular tachycardia with ablation. 14. History of gastric ulcer. 15. Chronic duodenal stricture. 16. Bilateral glaucoma. 17. History of migraines. 18. History esophagitis. 19. History of hiatal hernia. 20. Chronic back pain. 21. History of hyponatremia. 22. History of cardiac ablation. 23. History of sinus surgery. 24. Remote history of nicotine dependence. RECOMMENDATIONS AND DISCUSSION: Recommend to continue current medications, continue with monitoring and symptomatic treatment. Otherwise, at this time i recommend consult with Dr. Marcus for surgical evaluation. Otherwise, continue the current medications. Monitor sodium closely. IV hydration. Guarded prognosis because of multiple complex medical issues. Further recommendations to follow. MTDD
[2016-08-25 06:57] LABS: Aty Lym Flag Slight; CH 29.1; CHCM 34.1; HCT 34.6 % (39.0-53.0); HGB 12.2 gm/dL (13.0-17.5); MCH 30.3 pg (25.0-35.0); MCHC 35.4 g/dL (31.0-37.0); MCV 85.7 fL (80.0-100.0); Mean Platelet Volume 5.9; RBC 4.03 m/uL (4.30-5.90); RDW 13.7 % (11.5-15.5); WBC 5.9 k/uL (3.8-10.6); WBC (Perox) 6.08
[2016-08-25] MEDS: PANTOPRAZOLE 40 MG/10 ML VIAL IV SCH ×2 (07:09→21:30)
[2016-08-25 07:10] LABS: Anion Gap 9 mmol/L; Blood Urea Nitrogen 4 mg/dL (9-20); Calcium 9.1 mg/dL (8.4-10.2); Carbon Dioxide 22 mmol/L (22-30); Chloride 106 mmol/L (98-107); Glucose 99 mg/dL (74-99); Non-African American GFR(MDRD) >60 (>60 ml/min/1.73 sqM); Potassium 4.2 mmol/L (3.5-5.1); Sodium 137 mmol/L (137-145)
[2016-08-25] MEDS: SUCRALFATE 1 GM TAB PO SCH ×2 (07:11→21:29)
[2016-08-25] MEDS: DICYCLOMINE 10 MG CAP PO SCH ×3 (07:12→21:23)
[2016-08-25] MEDS: HEPARIN SODIUM,PORCINE 5,000 UNIT/ML 1 ML VIAL SQ SCH ×2 (07:12→21:30)
[2016-08-25] MEDS: METOPROLOL TARTRATE 25 MG TAB PO SCH ×2 (07:12→21:31)
[2016-08-25] MEDS: BRIMONIDINE TARTRATE 0.2% DROPS 5 ML BTL BOTH EYES SCH ×2 (07:13→21:30)
[2016-08-25 11:05] LABS: Add Differential Manual Differential
[2016-08-25 11:09] LABS: Nucleated Red Blood Cells 0 /100 WBC (0-0); Total Cells Counted 100
[2016-08-25] MEDS: ALPRAZolam 0.25 MG TAB PO PRN ×2 (11:15→22:00)
[2016-08-25] MEDS ORDERED: LISINOPRIL 10 MG TAB PO SCH (14:00)
--- NOTE | 2016-08-25 15:08 | US ---
EXAMINATION TYPE: US gallbladder DATE OF EXAM: 08/25/2016 COMPARISON: Prior CT abdomen pelvis 07/23/2016, prior ultrasound 01/26/2016 CLINICAL HISTORY: cholecystitis. EXAM MEASUREMENTS: Liver Length: 14.3 cm Gallbladder Wall: 0.7 cm CBD: 0.3 cm Right Kidney:10.3 x 5.3 x 4.7 Extensive midline bowel gas Pancreas: Obscured by bowel gas Liver: slightly heterogeneous, there may be fatty infiltration of the liver Gallbladder: Suggestion of some possible wall thickening. No definite stones. Difficult to exclude a small amount of tumefactive sludge. Evidence for sonographic Pedraza's sign: No CBD: wnl Right Kidney: probable cyst measuring 1.1 x 1.1 x 0.8cm cm, inferior pole obscured by bowel gas. Ther e is no hydronephrosis or pathologic calcification, cortical medullary differentiation are maintained . There is no ascites. IMPRESSION: Suggestion of some gallbladder wall thickening, correlate for possible cholecystitis. Pos sible fatty infiltration of the liver. Exam is limited. Probable cortical cyst lower pole right kidne y.
[2016-08-25] MEDS: METOCLOPRAMIDE 5 MG TAB PO SCH ×3 (18:15→21:29)
[2016-08-25] MEDS ORDERED: QUINAPRIL 10 MG PO SCH (18:26)
--- NOTE | 2016-08-25 19:02 | PN ---
DATE OF SERVICE: 08/25/2016 This 65-year-old gentleman admitted with abdominal pain, nausea, has been closely monitored. The patient had hyponatremia, improving at this time. No chest pain, no palpitations. No fever. Ultrasound of the gallbladder has been ordered. Surgical evaluation is in progress. On exam, alert and oriented x3. Pulse is 86, blood pressure 179/85, respirations 16, temperature 98.4, pulse ox 97% on room air. HEENT: Conjunctivae normal. NECK: No jugular venous distention. CARDIOVASCULAR: S1 and S2. RESPIRATORY: Breath sounds diminished at the bases. No rhonchi, no crackles. ABDOMEN: Soft, Mild diffuse discomfort in epigastrium and right upper quadrant. NERVOUS SYSTEM: No focal deficits. LABS: WBC 5, hemoglobin 12, sodium 130, potassium 4.2. UA noted. ASSESSMENT: 1. Upper abdominal pain, nausea, vomiting, possible acute cholelithiasis, cholecystitis and possible acute gastritis. 2. Hyponatremia. 3. Hypertension, essential. 4. Dehydration with weakness. 5. Hypokalemia from vomiting. 6. Anemia, normocytic anemia of chronic disease. 7. History of coronary artery disease and stent. 8. History of gastroesophageal reflux disease. 9. Hypertension, essential. 10. Hyperlipidemia. 11. History of myocardial infarction. 12. Supraventricular tachycardia with ablation. 13. History of gastric ulcer. 14. History of chronic duodenal stricture. 15. Bilateral glaucoma. 16. History of migraine. 17. History esophagitis. 18. History of hiatal hernia. 19. Chronic back pain. 20. History of hyponatremia. 21. History of cardiac ablation. 22. History of anxiety. 23. Remote history of nicotine dependence. RECOMMENDATIONS AND DISCUSSION: I recommend to continue the current medications, continue monitoring and symptomatic treatment. Otherwise at this time, I recommend ultrasound of the abdomen. Closely follow with Dr. Marcus. Guarded prognosis. Further recommendations to follow. I will also recommend a upper GI series also if ultrasound is negative. CHRIS
[2016-08-25] MEDS: BUTA/APAP/CAF/COD 50-325-40-30 CAP PO PRN (21:21)
[2016-08-25] MEDS: CARISOPRODOL 350 MG TAB PO PRN (21:21)
[2016-08-25] MEDS: AMITRIPTYLINE HCL 10 MG TAB PO SCH (21:29)
[2016-08-25] MEDS: LATANOPROST 0.005% OPHTH DROPS 2.5 ML BTL BOTH EYES SCH (21:30)
[2016-08-25] MEDS: SIMVASTIN PO SCH (22:01)
[2016-08-25] MEDS: QUINAPRIL 10 MG PO SCH (22:01)
--- NOTE | 2016-08-25 22:56 | P.GSCN ---
History of Present Illness Consult date: 08/25/16 Reason for Consult: Abdominal pain History of present illness: Patient is well-known to our service. The patient is a history of previous ulcer disease and chronic duodenal stricture formation. He was recently hospitalized in June. He has been having some pain more recently localized to the right upper quadrant. He had a HIDA scan and a CAT scan performed last months that was reportedly normal. He comes back to the hospital with complaints of nausea and vomiting that started last Thursday. Initially there was no pain but now over the last few days he has had right upper quadrant pain once again. An ultrasound showed possible sludge in possibly a thickened wall. Liver enzymes are normal. Denies any change in the color of his skin urine or stool. Review of Systems The patient denies any acute changes in his vision or hearing, no dysphagia or odynophagia, no chest pain or shortness of breath, no dysuria or hematuria, no headache, no runny nose, no rectal bleeding or melena, no unexplained weight loss Past Medical History Past Medical History: Coronary Artery Disease (CAD), Chest Pain / Angina, Eye Disorder, GERD/Reflux, Hyperlipidemia, Hypertension, Myocardial Infarction ([place]) , Osteoarthritis (OA) Additional Past Medical History / Comment(s): SVT with ablation, gastric ulcers , chronic duodenal stricture, bilateral glaucoma, sinusitis, migraines, anemia, esophagitis,hiatal hernia, chronic back pain, past fx ribs/sternum Last Myocardial Infarction Date:: 1999 History of Any Multi-Drug Resistant Organisms: None Reported Past Surgical History: Cardiac Ablation, Heart Catheterization With Stent Additional Past Surgical History / Comment(s): sinus surgery, cataracts bilaterally with lens implants, EGDs/colonoscopies, sinus surgery due to accident. Past Anesthesia/Blood Transfusion Reactions: No Reported Reaction Additional Past Anesthesia/Blood Transfusion Reaction / Comm: Pt has had past multiple transfusions without reaction. Date of Last Stent Placement:: 1999 Past Psychological History: No Psychological Hx Reported Additional Psychological History / Comment(s): Pt resides with his spouse. 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 He is independent. Smoking Status: Former smoker - Past Family History Father Additional Family Medical History / Comment(s): Father at the age of 68yrs from a ruptured aortic aneurysm. Mother Family Medical History: Hyperlipidemia, Hypertension Additional Family Medical History / Comment(s): Mother lived into her 80's. Medications and Allergies Home Medications Medication Instructions Recorded Confirmed Type ALPRAZolam [Xanax] 0.25 mg PO TID PRN 07/12/13 08/24/16 History Carisoprodol [Soma] 350 mg PO TID PRN 07/12/13 08/24/16 History Metoprolol Tartrate [Lopressor] 25 mg PO BID 07/12/13 08/24/16 History Simvastatin [Zocor] 40 mg PO HS 07/12/13 08/24/16 History Temazepam [Restoril] 30 mg PO HS PRN 07/12/13 08/24/16 History Amitriptyline HCl 10 mg PO HS 01/26/16 08/24/16 History Nitroglycerin Sl Tabs [Nitrostat] 0.4 mg SUBLINGUAL Q5M PRN 01/28/16 08/24/16 History Brimonidine Tartrate [Alphagan P 1 drops BOTH EYES BID 02/20/16 08/24/16 History 0.2% Ophth Soln] Buta/APAP/Caf/Cod 84-708-73-30 1 cap PO Q8H PRN 02/20/16 08/24/16 History [Fioricet w/Cod 05-665-51-30MG] Latanoprost [Xalatan 0.005%] 1 drop BOTH EYES HS 02/20/16 08/24/16 History Aspirin [Adult Low Dose Aspirin EC] 81 mg PO BID 06/26/16 08/24/16 History Pantoprazole Sodium 40 mg PO BID 06/26/16 08/24/16 History Sucralfate [Carafate] 1 gm PO BID 06/26/16 08/24/16 History Metoclopramide [Reglan] 5 mg PO Q6H PRN 08/24/16 08/24/16 History Quinapril HCl [Accupril] 10 mg PO BID 08/24/16 08/24/16 History Allergies Allergy/AdvReac Type Severity Reaction Status Date / Time atorvastatin [From Lipitor] AdvReac Unknown Verified 08/24/16 10:02 Surgical - Exam Vital Signs Temp Pulse Resp BP Pulse Ox 100.1 F H 85 20 136/74 98 08/23/16 22:17 08/23/16 22:17 08/23/16 22:17 08/23/16 22:17 08/23/16 22:17 Physical exam: General: Well-developed, well-nourished HEENT: Normocephalic, sclerae nonicteric Abdomen: Mild right upperQuadrant tenderness, nondistended Extremities: No edema Neuro: Alert and oriented Results - Labs 08/25/16 06:28 08/25/16 06:28 Abnormal Lab Results - Last 24 Hours (Table) 08/25/16 08/25/16 Range/Units 06:28 06:28 RBC 4.03 L (4.30-5.90) m/uL Hgb 12.2 L (13.0-17.5) gm/dL Hct 34.6 L (39.0-53.0) % BUN 4 L (9-20) mg/dL Creatinine 0.62 L (0.66-1.25) mg/dL Diabetes panel 08/25/16 Range/Units 06:28 Sodium 137 (137-145) mmol/L Potassium 4.2 (3.5-5.1) mmol/L Chloride 106 (98-107) mmol/L Carbon Dioxide 22 (22-30) mmol/L BUN 4 L (9-20) mg/dL Creatinine 0.62 L (0.66-1.25) mg/dL Glucose 99 (74-99) mg/dL Calcium 9.1 (8.4-10.2) mg/dL Calcium panel 08/25/16 Range/Units 06:28 Calcium 9.1 (8.4-10.2) mg/dL Pituitary panel 08/25/16 Range/Units 06:28 Sodium 137 (137-145) mmol/L Potassium 4.2 (3.5-5.1) mmol/L Chloride 106 (98-107) mmol/L Carbon Dioxide 22 (22-30) mmol/L BUN 4 L (9-20) mg/dL Creatinine 0.62 L (0.66-1.25) mg/dL Glucose 99 (74-99) mg/dL Calcium 9.1 (8.4-10.2) mg/dL Adrenal panel 08/25/16 Range/Units 06:28 Sodium 137 (137-145) mmol/L Potassium 4.2 (3.5-5.1) mmol/L Chloride 106 (98-107) mmol/L Carbon Dioxide 22 (22-30) mmol/L BUN 4 L (9-20) mg/dL Creatinine 0.62 L (0.66-1.25) mg/dL Glucose 99 (74-99) mg/dL Calcium 9.1 (8.4-10.2) mg/dL Assessment and Plan (1) Abdominal pain Narrative/Plan: We'll review the patient's abdominal ultrasound report. Consider GI evaluation. Given the patient's recurrent complaints of Right upper quadrant pain will consider cholecystectomy although I suspect the patient's symptoms are primarily related to his underlying duodenal stricture and ulcer disease. Status: Acute
[2016-08-25] MEDS: TEMAZEPAM 30 MG CAP PO PRN (23:46)
[2016-08-26] MEDS: HYDROmorphone 1 MG/ML 1 ML SYRINGE IV PRN ×7 (02:52→23:04)
[2016-08-26] MEDS: SIMVASTIN PO SCH ×2 (06:15→21:21)
[2016-08-26 07:28] LABS: Basophils % (A) 1 %; CH 29.3; CHCM 33.7; Eosinophils # (A) 0.2 k/uL (0-0.7); Eosinophils % (A) 4 %; HCT 33.2 % (39.0-53.0); HDW 2.63; Luc # (Auto) 0.26; Luc % (Auto) 4; Lymphocytes # (A) 1.5 k/uL (1.0-4.8); Lymphocytes % (A) 25 %; MCH 28.9 pg (25.0-35.0); MCHC 33.1 g/dL (31.0-37.0); MCV 87.3 fL (80.0-100.0); Mean Platelet Volume 6.1; Monocytes # (A) 0.8 k/uL (0-1.0); Monocytes % (A) 12 %; Neutrophils # (A) 3.2 k/uL (1.3-7.7); Neutrophils % (A) 54 %; RBC 3.81 m/uL (4.30-5.90); RDW 13.8 % (11.5-15.5); WBC (Perox) 6.28
[2016-08-26 07:50] LABS: Anion Gap 10 mmol/L; Blood Urea Nitrogen 4 mg/dL (9-20); Calcium 8.6 mg/dL (8.4-10.2); Carbon Dioxide 23 mmol/L (22-30); Chloride 104 mmol/L (98-107); Glucose 102 mg/dL (74-99); Non-African American GFR(MDRD) >60 (>60 ml/min/1.73 sqM); Potassium 3.6 mmol/L (3.5-5.1); Sodium 137 mmol/L (137-145)
[2016-08-26] MEDS: SODIUM CHLORIDE 0.9% 1,000 ML IV SCH ×2 (08:09→13:36)
[2016-08-26] MEDS: DICYCLOMINE 10 MG CAP PO SCH ×3 (08:13→17:54)
[2016-08-26] MEDS: SUCRALFATE 1 GM TAB PO SCH ×2 (08:13→21:22)
[2016-08-26] MEDS: HEPARIN SODIUM,PORCINE 5,000 UNIT/ML 1 ML VIAL SQ SCH ×2 (08:14→21:22)
[2016-08-26] MEDS: METOPROLOL TARTRATE 25 MG TAB PO SCH ×2 (08:14→21:22)
[2016-08-26] MEDS: METOCLOPRAMIDE 5 MG TAB PO SCH ×4 (08:14→21:22)
[2016-08-26] MEDS: PANTOPRAZOLE 40 MG/10 ML VIAL IV SCH ×2 (08:14→21:21)
[2016-08-26] MEDS: BRIMONIDINE TARTRATE 0.2% DROPS 5 ML BTL BOTH EYES SCH ×2 (08:14→21:21)
[2016-08-26] MEDS: QUINAPRIL 10 MG PO SCH ×2 (08:15→21:21)
[2016-08-26] MEDS: BUTA/APAP/CAF/COD 50-325-40-30 CAP PO PRN ×2 (11:57→21:22)
[2016-08-26] MEDS: CARISOPRODOL 350 MG TAB PO PRN ×2 (11:58→21:22)
[2016-08-26] MEDS: ALPRAZolam 0.25 MG TAB PO PRN ×2 (12:26→21:22)
--- NOTE | 2016-08-26 19:13 | P.PN ---
Subjective Principal diagnosis: Abdominal pain Patient still having some degree of right upper quadrant pain. Some nausea as well. Labs from today were reviewed. Objective - Vital Signs Vital signs: Vital Signs Temp 98.2 F 08/26/16 15:00 Pulse 76 08/26/16 15:09 Resp 16 08/26/16 15:09 BP 142/71 08/26/16 15:00 Pulse Ox 99 08/26/16 15:00 Intake & Output 08/26/16 08/26/16 08/27/16 06:59 18:59 06:59 Intake Total 1770 1230 Output Total 600 Balance 1770 630 Weight 84 kg Intake: IV 750 Sodium Chloride 0.9% 1, 750 000 ml @ 100 mls/hr IV . Q10H DANIEL Rx#:[id number] Intake, IV Titration 1150 Amount Sodium Chloride 0.9% 1, 1150 000 ml @ 100 mls/hr IV . Q10H DANIEL Rx#:[id number] Oral 620 480 Output: Urine 600 Other: Voiding Method Toilet Toilet # Voids 1 4 - Exam Abdomen: Soft, mild right upper quadrant tenderness, no rebound or guarding - Labs CBC & Chem 7: 08/26/16 06:54 08/26/16 06:54 Labs: Abnormal Lab Results - Last 24 Hours (Table) 08/26/16 08/26/16 Range/Units 06:54 06:54 RBC 3.81 L (4.30-5.90) m/uL Hgb 11.0 L (13.0-17.5) gm/dL Hct 33.2 L (39.0-53.0) % BUN 4 L (9-20) mg/dL Creatinine 0.59 L (0.66-1.25) mg/dL Glucose 102 H (74-99) mg/dL Assessment and Plan (1) Abdominal pain Narrative/Plan: The patient I discussed the clinical scenario in detail. I also discussed the case with Dr. Etienne earlier today. He has had 2 admissions now with complaints of right upper quadrant pain and the recent ultrasound shows some wall thickening and sludge. I'm not 100% convinced the gallbladder is the source of all of the patient's symptoms it appears that it is contributing to a certain degree. The possibility that the gallbladder wall thickening is related to the patient's previous ulcer disease and scarring was discussed. The potential risks of converting to an open procedure were discussed. The additional risks of persistent pain, bleeding, infection, hernia, diarrhea, bile leaks, bile duct injury were discussed. He understands and wishes for us to proceed with cholecystectomy. This will be scheduled for tomorrow. Status: Acute
[2016-08-26] MEDS: LATANOPROST 0.005% OPHTH DROPS 2.5 ML BTL BOTH EYES SCH (21:21)
[2016-08-26] MEDS: AMITRIPTYLINE HCL 10 MG TAB PO SCH (21:22)
[2016-08-26] MEDS: TEMAZEPAM 30 MG CAP PO PRN (23:04)
[2016-08-27] MEDS: HYDROmorphone 1 MG/ML 1 ML SYRINGE IV PRN ×7 (01:59→23:23)
[2016-08-27 07:15] LABS: Basophils % (A) 1 %; CH 29.1; CHCM 33.3; Eosinophils # (A) 0.3 k/uL (0-0.7); Eosinophils % (A) 6 %; HCT 32.8 % (39.0-53.0); HDW 2.68; HGB 10.7 gm/dL (13.0-17.5); Luc # (Auto) 0.19; Luc % (Auto) 3; Lymphocytes # (A) 1.9 k/uL (1.0-4.8); Lymphocytes % (A) 34 %; MCH 28.7 pg (25.0-35.0); MCHC 32.7 g/dL (31.0-37.0); MCV 87.7 fL (80.0-100.0); Mean Platelet Volume 6.2; Monocytes # (A) 0.6 k/uL (0-1.0); Monocytes % (A) 10 %; Neutrophils # (A) 2.7 k/uL (1.3-7.7); Neutrophils % (A) 47 %; RBC 3.74 m/uL (4.30-5.90); RDW 13.8 % (11.5-15.5); WBC 5.7 k/uL (3.8-10.6); WBC (Perox) 5.85
[2016-08-27] MEDS: SODIUM CHLORIDE 0.9% 1,000 ML IV SCH ×3 (07:36→23:28)
[2016-08-27] MEDS: METOPROLOL TARTRATE 25 MG TAB PO SCH ×2 (07:38→20:28)
[2016-08-27] MEDS: BRIMONIDINE TARTRATE 0.2% DROPS 5 ML BTL BOTH EYES SCH ×2 (07:38→21:00)
[2016-08-27] MEDS: QUINAPRIL 10 MG PO SCH ×2 (07:39→20:25)
[2016-08-27 07:44] LABS: Anion Gap 9 mmol/L; Blood Urea Nitrogen 4 mg/dL (9-20); Calcium 8.6 mg/dL (8.4-10.2); Carbon Dioxide 25 mmol/L (22-30); Chloride 107 mmol/L (98-107); Glucose 88 mg/dL (74-99); Non-African American GFR(MDRD) >60 (>60 ml/min/1.73 sqM); Potassium 4.1 mmol/L (3.5-5.1); Sodium 141 mmol/L (137-145)
[2016-08-27] MEDS ORDERED: IV FLUID CONTINUATION 350 ML IV ONE (09:39)
[2016-08-27] MEDS ORDERED: DEXAMETHASONE SOD PHOSPHATE 10 MG/ML 1 ML VIAL IV ONE (10:18)
[2016-08-27] MEDS ORDERED: ONDANSETRON 4 MG/2 ML VIAL IVP ONE (10:19)
[2016-08-27] MEDS ORDERED: LIDOCAINE 1% INJ 10MG/ML (20 ML MDV) ONE (12:11)
[2016-08-27] MEDS ORDERED: NEOSTIGMINE 1 MG/ML 10 ML VIAL ONE (12:11)
[2016-08-27] MEDS ORDERED: BUPIVACAIN-EPI 0.5%-1:200,000 30 ML VIAL SQ ONE (12:11)
[2016-08-27] MEDS ORDERED: PROPOFOL 10 MG/ML 20 ML VIAL IV ONE (12:11)
[2016-08-27] MEDS ORDERED: SUCCINYLCHOLINE CHLORIDE 100 MG/5 ML SYR IV ONE (12:11)
[2016-08-27] MEDS ORDERED: ROCURONIUM BROMIDE 10 MG/ML 10 ML VIAL IV ONE (12:11)
[2016-08-27] MEDS ORDERED: GLYCOPYRROLATE 0.2 MG/ML 2 ML VIAL ONE (12:11)
[2016-08-27] MEDS ORDERED: MIDAZOLAM 2 MG/2 ML VIAL ONE (12:11)
[2016-08-27] MEDS ORDERED: fentaNYL (PF) 50 MCG/ML 2 ML AMP ONE (12:11)
[2016-08-27] MEDS ORDERED: LACTATED RINGERS 1,000 ML IV ONE ×3 (12:13→13:38)
[2016-08-27] MEDS ORDERED: SODIUM CHLORIDE 0.9% 100 ML with ceFAZolin 2,000 MG IV ONE ×2 (12:30)
--- NOTE | 2016-08-27 13:01 | P.OP ---
Preoperative Diagnosis: PREOPERATIVE DIAGNOSIS: Chronic cholecystitis POSTOPERATIVE DIAGNOSIS: Same PROCEDURE: Laparoscopic cholecystectomy SURGEON: Angeline EBL: Minimal see anesthesia record ANESTHESIA: Gen. COMPLICATIONS: None OPERATIVE PROCEDURE: The patient was brought and placed on the operating room table in the supine position. The patient was placed under general anesthesia at that time. The abdomen was prepped and draped in the usual sterile fashion. A small vertical infraumbilical incision was made. The fascia was grasped with the Rommel forceps. The fascia was retracted anteriorly. The Veress needle was advanced into the peritoneal cavity. The saline drop test was normal. Insufflation took place up to 15 mmHg. A 5 mm optical trocar was advanced and the peritoneal cavity. 2 additional 5 mm trochars were placed in the right upper quadrant under direct visualization. A 10 mm trocar was advanced into the epigastric incision site. The gallbladder was retracted superiorly and laterally. The peritoneum overlying the infundibulum was bluntly dissected. The patient's cystic duct was visualized. The junction between the cystic duct common and hepatic duct was identified. The cystic duct was then divided after placement of 3 10 mm clips on the patient's side and one on the specimen side. The cystic artery was identified and clipped as well. A small vessel was seen along the gallbladder fossa and clipped as well. The gallbladder was then removed from the liver bed using electrocautery. The gallbladder was then removed from the epigastric trocar site with an Endo Catch bag. The gallbladder fossa was irrigated with saline. There was no evidence of any bleeding or biliary drainage seen. The trochars were then removed. The fascia at the 10 millimeter site was closed using a figure-of- eight 0 Vicryl stitch. The skin at all 4 sites was closed using a 4-0 Monocryl stitch. At the end of this procedure the sponge and needle counts were correct. DISPOSITION: Stable to the recovery room Postoperative Diagnosis: Procedure(s) Performed: Implants: Indications for Procedure: Operative Findings: Description of Procedure:
[2016-08-27] MEDS: HYDROmorphone 1 MG/ML 1 ML SYRINGE IVP ONE ×5 (13:20→13:44)
[2016-08-27] MEDS: MEPERIDINE 50 MG/ML SYRINGE IVP ONE ×2 (13:45→13:51)
[2016-08-27] MEDS: HEPARIN SODIUM,PORCINE 5,000 UNIT/ML 1 ML VIAL SQ SCH ×2 (14:43→20:28)
[2016-08-27] MEDS: DICYCLOMINE 10 MG CAP PO SCH ×3 (14:45→17:05)
[2016-08-27] MEDS: METOCLOPRAMIDE 5 MG TAB PO SCH ×4 (14:45→20:23)
[2016-08-27] MEDS: PANTOPRAZOLE 40 MG/10 ML VIAL IV SCH ×2 (14:45→20:23)
[2016-08-27] MEDS: SUCRALFATE 1 GM TAB PO SCH ×2 (14:45→20:24)
[2016-08-27] MEDS: ALPRAZolam 0.25 MG TAB PO PRN ×2 (14:52→20:43)
[2016-08-27] MEDS: ACETAMINOPHEN TAB 325 MG TAB PO PRN (17:04)
[2016-08-27 17:55] VITALS: RESP 16
[2016-08-27] MEDS: LATANOPROST 0.005% OPHTH DROPS 2.5 ML BTL BOTH EYES SCH (20:22)
[2016-08-27] MEDS: SIMVASTIN PO SCH (20:25)
[2016-08-27] MEDS: AMITRIPTYLINE HCL 10 MG TAB PO SCH (20:38)
[2016-08-27] MEDS: BUTA/APAP/CAF/COD 50-325-40-30 CAP PO PRN (20:43)
[2016-08-27] MEDS: CARISOPRODOL 350 MG TAB PO PRN (20:44)
[2016-08-27] MEDS: TEMAZEPAM 30 MG CAP PO PRN (23:23)
[2016-08-28] MEDS: BRIMONIDINE TARTRATE 0.2% DROPS 5 ML BTL BOTH EYES SCH ×2 (01:10→08:17)
[2016-08-28] MEDS: HYDROmorphone 1 MG/ML 1 ML SYRINGE IV PRN ×3 (02:27→09:38)
[2016-08-28] MEDS: CARISOPRODOL 350 MG TAB PO PRN ×2 (06:07→13:20)
[2016-08-28] MEDS: BUTA/APAP/CAF/COD 50-325-40-30 CAP PO PRN ×2 (06:07→13:18)
[2016-08-28 07:31] LABS: Basophils % (A) 0 %; CH 28.7; CHCM 33.5; Eosinophils # (A) 0.1 k/uL (0-0.7); Eosinophils % (A) 1 %; HCT 32.8 % (39.0-53.0); HDW 2.81; HGB 11.3 gm/dL (13.0-17.5); Luc # (Auto) 0.21; Luc % (Auto) 3; Lymphocytes # (A) 1.7 k/uL (1.0-4.8); Lymphocytes % (A) 23 %; MCH 29.7 pg (25.0-35.0); MCHC 34.5 g/dL (31.0-37.0); MCV 86.2 fL (80.0-100.0); Mean Platelet Volume 5.8; Monocytes # (A) 0.7 k/uL (0-1.0); Monocytes % (A) 10 %; Neutrophils # (A) 4.5 k/uL (1.3-7.7); Neutrophils % (A) 63 %; RBC 3.81 m/uL (4.30-5.90); RDW 13.5 % (11.5-15.5); WBC 7.2 k/uL (3.8-10.6); WBC (Perox) 7.37
[2016-08-28 07:59] LABS: Anion Gap 11 mmol/L; Blood Urea Nitrogen 4 mg/dL (9-20); Calcium 9.2 mg/dL (8.4-10.2); Carbon Dioxide 26 mmol/L (22-30); Chloride 101 mmol/L (98-107); Glucose 105 mg/dL (74-99); Non-African American GFR(MDRD) >60 (>60 ml/min/1.73 sqM); Potassium 3.6 mmol/L (3.5-5.1); Sodium 138 mmol/L (137-145)
[2016-08-28 08:01] VITALS: BP 157/77; TEMP 98.1
[2016-08-28] MEDS: SUCRALFATE 1 GM TAB PO SCH (08:17)
[2016-08-28] MEDS: DICYCLOMINE 10 MG CAP PO SCH ×2 (08:17→11:41)
[2016-08-28] MEDS: METOPROLOL TARTRATE 25 MG TAB PO SCH (08:18)
[2016-08-28] MEDS: QUINAPRIL 10 MG PO SCH (08:18)
[2016-08-28] MEDS: SODIUM CHLORIDE 0.9% 1,000 ML IV SCH (08:19)
[2016-08-28] MEDS: PANTOPRAZOLE 40 MG/10 ML VIAL IV SCH (08:19)
[2016-08-28] MEDS: METOCLOPRAMIDE 5 MG TAB PO SCH ×2 (08:19→11:42)
[2016-08-28] MEDS: HEPARIN SODIUM,PORCINE 5,000 UNIT/ML 1 ML VIAL SQ SCH (08:45)
[2016-08-28 09:07] VITALS: PULSE 70
--- NOTE | 2016-08-28 12:29 | PN ---
DATE OF SERVICE: 08/26/2016 This is a 65-year-old gentleman who was admitted with upper abdominal pain, nausea and possibly acute cholecystitis also. Patient also has history of and Dr. Marcus is following the patient closely for possibly laparoscopic cholecystectomy. No chest pain or palpitation, no fever. On exam, alert and oriented x3. Pulse 73, blood pressure 147/76, respiration 16 , temperature is 98.5, pulse ox is 98% on room air. HEENT: Conjunctivae normal. NECK: No jugular venous distension. CARDIOVASCULAR SYSTEM: S1, S2, muffled. RESPIRATORY: Breath sounds diminished at the bases, no rhonchi, no crackles. ABDOMEN: Soft, mild diffuse discomfort in the right upper quadrant. No guarding or no rigidity. No mass palpable. Bowel sounds present, no ascites. LEGS: No edema, no swelling. NERVOUS SYSTEM: No focal deficits. LABS: WBC is 6, hemoglobin is 11, sodium 131, potassium 3.6. ASSESSMENT: 1. Upper abdominal pain with nausea, vomiting with possibly acute cholecystitis , possible acute gastritis. 2. Hyponatremia. 3. History of duodenal stricture. 4. Hypertension, essential. 5. Dehydration with weakness present on admission. 6. Hypokalemia from vomiting. 7. Anemia, normocytic anemia of chronic disease. 8. History of coronary artery disease, stent. 9. History of gastroesophageal reflux disease. 10. Hyperlipidemia. 11. History of myocardial infarction. 12. History of supraventricular tachycardia and ablation. 13. History of gastric ulcer. 14. History of bilateral glaucoma. 15. History of migraine. 16. History of esophagitis. 17. History of hiatal hernia. 18. History of chronic back pain. 19. History of hyponatremia. 20. History of cardiac ablations. 21. History of anxiety. 22. Remote history of nicotine dependence. 23. FULL CODE. RECOMMENDATION: Recommend to continue with the current medication and symptomatic treatment. Discussed with Dr. Marcus. Discussed with the family. Possible lap kenyetta. Continue to monitor. Guarded prognosis. Further recommendations to follow. MTDD
--- NOTE | 2016-08-30 07:19 | PN ---
DATE OF SERVICE: 08/27/2016 This 65-year-old gentleman admitted with multiple medical problems underwent laparoscopic cholecystectomy by Dr. Marucs. No chest pain, no palpitations, no fever. On exam, alert and oriented x3. Pulse 64, blood pressure 160/80, respirations 22 , temperature 96.9, pulse ox 97% on room air. HEENT: Conjunctivae normal. NECK: No JVD. CARDIOVASCULAR: S1, S2. RESPIRATORY: Breath sounds diminished in the bases. A few rhonchi, no crackles. ABDOMEN: Soft, status post laparoscopic cholecystectomy. NERVOUS SYSTEM: No focal deficits. LABS: WBC 5.6, hemoglobin 10.7. ASSESSMENT: 1. Upper abdominal pain, nausea, vomiting, possible chronic cholecystitis, status post laparoscopic cholecystectomy. 2. Hyponatremia, hypovolemic. 3. Hypertension, essential. 4. Dehydration with weakness. 5. Hypokalemia from vomiting. 6. Anemia, normocytic anemia of chronic disease. 7. History of coronary artery disease with stent. 8. History of gastroesophageal reflux disease. 9. Hyperlipidemia. 10. History of myocardial infarction. 11. Supraventricular tachycardia with ablation. 12. History of gastric ulcer. 13. History of chronic duodenal stricture. 14. Bilateral glaucoma. 15. History of migraines. 16. History of esophagitis. 17. History of hiatal hernia. 18. Chronic back pain. 19. History of hyponatremia. 20. History of chronic ablation. 21. History of anxiety. 22. Remote history of nicotine dependence. 23. FULL CODE. RECOMMENDATIONS AND DISCUSSION: I recommend to continue the current medications , continue monitoring, symptomatic treatment. Otherwise monitor electrolytes closely. Closely follow with Dr. Marcus. Guarded prognosis because of multiple complex medical issues. Further recommendations to follow. MTDD
== END 2016-08-28 16:15 | disposition home or self-care (01) | DRG 418 ==
LOC: EC 22:06 → 5MS5E 08-24 00:57
PROVIDERS: ADMIT Internal Medicine; ATTEND Internal Medicine
PROC: 0FT44ZZ Resection of Gallbladder, Percutaneous Endoscopic Approach (ICD-10-PCS; principal; 2016-08-27 10:20)
DX: K81.1 Chronic cholecystitis (principal); E87.1 Hypo-osmolality and hyponatremia; K31.5 Obstruction of duodenum; I10 Essential (primary) hypertension; E78.5 Hyperlipidemia, unspecified; D63.8 Anemia in other chronic diseases classified elsewhere; E86.0 Dehydration; E86.1 Hypovolemia; E87.6 Hypokalemia; G89.29 Other chronic pain; H40.9 Unspecified glaucoma; I25.10 Atherosclerotic heart disease of native coronary artery without angina pectoris; I25.2 Old myocardial infarction; K21.9 Gastro-esophageal reflux disease without esophagitis; F41.9 Anxiety disorder, unspecified; G43.909 Migraine, unspecified, not intractable, without status migrainosus; K44.9 Diaphragmatic hernia without obstruction or gangrene; M19.90 Unspecified osteoarthritis, unspecified site; M54.9 Dorsalgia, unspecified; Z79.82 Long term (current) use of aspirin; Z79.899 Other long term (current) drug therapy; Z87.891 Personal history of nicotine dependence; Z95.5 Presence of coronary angioplasty implant and graft; Z88.8 Allergy status to other drugs, medicaments and biological substances; Z82.49 Family history of ischemic heart disease and other diseases of the circulatory system
CPT/HCPCS: 36415; 71020; 74000; 76705; 80048; 80053; 81003; 82150; 83690; 85025; 88304; 93005

== ENCOUNTER 2016-09-24 10:58 | Inpatient (IN) | payer MEDICARE ==
--- NOTE | 2016-09-24 11:55 | ED ---
Abdominal Pain HPI - General Chief Complaint: Abdominal Pain Stated Complaint: abdominal pain, nausea, diarrhea post op gall Time Seen by Provider: 09/24/16 11:30 Source: patient, family, RN notes reviewed, old records reviewed Mode of arrival: ambulatory Limitations: no limitations - History of Present Illness Initial Comments: This is a 65-year-old male with a history of a cholecystectomy approximately 1 month ago who presents with 2 days of abdominal pain mostly right upper quadrant 7/10 severity at its worse crampy in nature been going on for the past 2 days he's also had nausea vomiting with this. He's also had diarrhea with this. He reports no blood in the emesis or with bowel movements. He also states she's had a cough with clear phlegm he is a former smoker he denies any overt fevers chills or sweats. He does relate the 2 nights ago he had some reflux type discomfort. The patient had been doing well after the cholecystectomy he had gained about 12 pounds but then 2 days ago the symptoms started. He did contact a surgeon and was instructed to come to the hospital for evaluation. MD Complaint: abdominal pain, other - Related Data Home Medications Medication Instructions Recorded Confirmed ALPRAZolam [Xanax] 0.25 mg PO TID PRN 07/12/13 09/24/16 Carisoprodol [Soma] 350 mg PO TID PRN 07/12/13 09/24/16 Metoprolol Tartrate [Lopressor] 25 mg PO BID 07/12/13 09/24/16 Simvastatin [Zocor] 40 mg PO HS 07/12/13 09/24/16 Temazepam [Restoril] 30 mg PO HS PRN 07/12/13 09/24/16 Amitriptyline HCl 10 mg PO HS 01/26/16 09/24/16 Nitroglycerin Sl Tabs [Nitrostat] 0.4 mg SUBLINGUAL Q5M PRN 01/28/16 09/24/16 Brimonidine Tartrate [Alphagan P 1 drops BOTH EYES BID 02/20/16 09/24/16 0.2% Ophth Soln] Buta/APAP/Caf/Cod [id number] 1 cap PO Q8H PRN 02/20/16 09/24/16 [Fioricet w/Cod 66-697-70-30MG] Latanoprost [Xalatan 0.005%] 1 drop BOTH EYES HS 02/20/16 09/24/16 Pantoprazole Sodium 40 mg PO BID 06/26/16 09/24/16 Sucralfate [Carafate] 1 gm PO BID 06/26/16 09/24/16 Metoclopramide [Reglan] 5 mg PO Q6H PRN 08/24/16 09/24/16 Quinapril HCl [Accupril] 10 mg PO BID 08/24/16 09/24/16 Previous Rx's Medication Instructions Recorded Ondansetron Odt [Zofran ODT] 4 mg PO Q8HR PRN #5 tab 02/21/16 Allergies Allergy/AdvReac Type Severity Reaction Status Date / Time atorvastatin [From Lipitor] AdvReac Unknown Verified 09/24/16 11:34 Review of Systems ROS Statement: Those systems with pertinent positive or pertinent negative responses have been documented in the HPI. ROS Other: All systems not noted in ROS Statement are negative. Past Medical History Past Medical History: Coronary Artery Disease (CAD), Chest Pain / Angina, Eye Disorder, GERD/Reflux, Hyperlipidemia, Hypertension, Myocardial Infarction ([place]) , Osteoarthritis (OA) Additional Past Medical History / Comment(s): SVT with ablation, gastric ulcers , chronic duodenal stricture, bilateral glaucoma, sinusitis, migraines, anemia, esophagitis,hiatal hernia, chronic back pain, past fx ribs/sternum Last Myocardial Infarction Date:: 1999 History of Any Multi-Drug Resistant Organisms: None Reported Past Surgical History: Cardiac Ablation, Cholecystectomy, Heart Catheterization With Stent Additional Past Surgical History / Comment(s): sinus surgery, cataracts bilaterally with lens implants, EGDs/colonoscopies, Past Anesthesia/Blood Transfusion Reactions: No Reported Reaction Additional Past Anesthesia/Blood Transfusion Reaction / Comment(s): Pt has had past multiple transfusions without reaction. Date of Last Stent Placement:: 1999 Past Psychological History: No Psychological Hx Reported Smoking Status: Former smoker Past Alcohol Use History: None Reported Past Drug Use History: None Reported - Past Family History Father Additional Family Medical History / Comment(s): Father at the age of 68yrs from a ruptured aortic aneurysm. Mother Family Medical History: Hyperlipidemia, Hypertension Additional Family Medical History / Comment(s): Mother lived into her 80's. General Exam - General Exam Comments Initial Comments: This a well-developed well-nourished awake alert oriented times 3 male Limitations: no limitations General appearance: alert, in no apparent distress Head exam: Present: atraumatic, normocephalic, normal inspection Eye exam: Present: normal appearance, PERRL, EOMI. Absent: scleral icterus, conjunctival injection, periorbital swelling ENT exam: Present: mucous membranes dry Neck exam: Present: normal inspection. Absent: tenderness, meningismus, lymphadenopathy Respiratory exam: Present: normal lung sounds bilaterally. Absent: respiratory distress, wheezes, rales, rhonchi, stridor Cardiovascular Exam: Present: regular rate, normal rhythm, normal heart sounds. Absent: systolic murmur, diastolic murmur, rubs, gallop, clicks GI/Abdominal exam: Present: soft, tenderness (Nonspecific tenderness most in the right upper quadrant.), normal bowel sounds. Absent: distended, guarding, rebound, rigid Rectal exam: Present: deferred Extremities exam: Present: normal inspection, full ROM, normal capillary refill. Absent: tenderness, pedal edema, joint swelling, calf tenderness Back exam: Present: normal inspection Neurological exam: Present: alert, oriented X3, CN II-XII intact Psychiatric exam: Present: normal affect, normal mood Skin exam: Present: warm, dry, intact, normal color. Absent: rash Course Vital Signs 09/24/16 09/24/16 09/24/16 11:12 13:03 14:32 Temperature 98.6 F 97.3 F L Pulse Rate 73 78 65 Respiratory 18 18 18 Rate Blood Pressure 124/71 136/79 150/86 O2 Sat by Pulse 97 98 100 Oximetry Medical Decision Making - Medical Decision Making I did discuss findings with the patient family patient be admitted for symptomatic hyponatremia and intractable gastroenteritis with abdominal pain - Lab Data Result diagrams: 09/24/16 12:04 09/24/16 12:04 Lab Results 09/24/16 09/24/16 Range/Units 12:04 12:04 WBC 6.5 (3.8-10.6) k/uL RBC 4.16 L (4.30-5.90) m/uL Hgb 12.0 L (13.0-17.5) gm/dL Hct 34.3 L (39.0-53.0) % MCV 82.3 (80.0-100.0) fL MCH 28.8 (25.0-35.0) pg MCHC 35.0 (31.0-37.0) g/dL RDW 12.9 (11.5-15.5) % Plt Count 337 (150-450) k/uL Neutrophils % 58 % Lymphocytes % 22 % Monocytes % 11 % Eosinophils % 5 % Basophils % 1 % Neutrophils # 3.8 (1.3-7.7) k/uL Lymphocytes # 1.4 (1.0-4.8) k/uL Monocytes # 0.7 (0-1.0) k/uL Eosinophils # 0.3 (0-0.7) k/uL Basophils # 0.0 (0-0.2) k/uL Sodium 124 L (137-145) mmol/L Potassium 3.8 (3.5-5.1) mmol/L Chloride 94 L (98-107) mmol/L Carbon Dioxide 21 L (22-30) mmol/L Anion Gap 9 mmol/L BUN 5 L (9-20) mg/dL Creatinine 0.60 L (0.66-1.25) mg/dL Est GFR (MDRD) Af Amer >60 (>60 ml/min/1.73 sqM) Est GFR (MDRD) Non-Af >60 (>60 ml/min/1.73 sqM) Glucose 103 H (74-99) mg/dL Calcium 8.8 (8.4-10.2) mg/dL Total Bilirubin 0.3 (0.2-1.3) mg/dL AST 15 L (17-59) U/L ALT 27 (21-72) U/L Alkaline Phosphatase 81 (38-126) U/L Total Protein 6.5 (6.3-8.2) g/dL Albumin 4.0 (3.5-5.0) g/dL Amylase 33 (30-110) U/L Lipase 127 (23-300) U/L - Radiology Data Radiology results: report reviewed (Review the imaging shows no acute findings.) , image reviewed Disposition Clinical Impression: Hyponatremia syndrome, Gastroenteritis, Abdominal pain Disposition: ADMITTED IP TO THIS [facility] Condition: Stable Referrals: Garrison Yuen MD [Primary Care Provider] - 1-2 days
[2016-09-24 12:20] LABS: Basophils % (A) 1 %; CH 28.9; CHCM 35.2; Eosinophils # (A) 0.3 k/uL (0-0.7); Eosinophils % (A) 5 %; HCT 34.3 % (39.0-53.0); Luc # (Auto) 0.22; Luc % (Auto) 3; Lymphocytes # (A) 1.4 k/uL (1.0-4.8); Lymphocytes % (A) 22 %; MCH 28.8 pg (25.0-35.0); MCV 82.3 fL (80.0-100.0); Mean Platelet Volume 6.3; Monocytes # (A) 0.7 k/uL (0-1.0); Monocytes % (A) 11 %; Neutrophils # (A) 3.8 k/uL (1.3-7.7); Neutrophils % (A) 58 %; RBC 4.16 m/uL (4.30-5.90); RDW 12.9 % (11.5-15.5); WBC 6.5 k/uL (3.8-10.6); WBC (Perox) 6.68
--- NOTE | 2016-09-24 12:25 | XR ---
EXAMINATION TYPE: XR abdomen acute w cxr DATE OF EXAM: 09/24/2016 COMPARISON: NONE HISTORY: Pain TECHNIQUE: Single view of the chest and 2 views of the abdomen are submitted. FINDINGS: Single view of the chest fails demonstrate evidence for acute pulmonary disease. There is no evidence for pneumoperitoneum. The bowel gas pattern is unremarkable as there is air throughout nondilated small and large bowel. No sizeable air fluid levels.No mass effects are seen. No unusual calcifications. IMPRESSION: 1. Unremarkable study.
[2016-09-24 12:35] LABS: ALT 27 U/L (21-72); AST 15 U/L (17-59); Alkaline Phosphatase 81 U/L (38-126); Amylase 33 U/L (30-110); Anion Gap 9 mmol/L; Blood Urea Nitrogen 5 mg/dL (9-20); Calcium 8.8 mg/dL (8.4-10.2); Carbon Dioxide 21 mmol/L (22-30); Chloride 94 mmol/L (98-107); Glucose 103 mg/dL (74-99); Non-African American GFR(MDRD) >60 (>60 ml/min/1.73 sqM); Potassium 3.8 mmol/L (3.5-5.1); Sodium 124 mmol/L (137-145); Total Bilirubin 0.3 mg/dL (0.2-1.3); Total Protein 6.5 g/dL (6.3-8.2)
[2016-09-24] MEDS ORDERED: HYDROmorphone 1 MG/ML 1 ML SYRINGE IVP STA (13:22)
[2016-09-24] MEDS ORDERED: NALOXONE 0.4 MG/ML 1 ML VIAL IV PRN (14:44)
[2016-09-24] MEDS ORDERED: ONDANSETRON 4 MG/2 ML VIAL IVP PRN (14:44)
[2016-09-24] MEDS ORDERED: METOCLOPRAMIDE 5 MG TAB PO PRN (14:49)
[2016-09-24] MEDS ORDERED: NITROGLYCERIN SL TABS 0.4 MG TAB SUBLINGUAL PRN (14:49)
[2016-09-24] MEDS: SODIUM CHLORIDE 0.9% 1,000 ML IV SCH (15:04)
[2016-09-24 15:24] LABS: Appearance,Urine Clear (Clear); Bilirubin,Urine Negative (Negative); Glucose,Urine (UA) Negative (Negative); Ketones,Urine Negative (Negative); Leukocyte Esterase,Urine Negative (Negative); Nitrite,Urine Negative (Negative); Protein,Urine Negative (Negative); Specific Gravity,Urine 1.008 (1.001-1.035); UA Billing (MACRO vs. MICRO) CHEM; Urobilinogen,Urine <2.0 mg/dL (<2.0)
[2016-09-24] MEDS: HYDROmorphone 1 MG/ML 1 ML SYRINGE IV PRN ×3 (16:31→22:52)
[2016-09-24 16:42] VITALS: BMI 25.0
[2016-09-24 17:03] VITALS: RESP 16
[2016-09-24] MEDS: ALPRAZolam 0.25 MG TAB PO PRN (18:30)
[2016-09-24] MEDS: SUCRALFATE 1 GM TAB PO SCH (20:10)
[2016-09-24] MEDS: LATANOPROST 0.005% OPHTH DROPS 2.5 ML BTL BOTH EYES SCH (20:10)
[2016-09-24] MEDS: METOPROLOL TARTRATE 25 MG TAB PO SCH (20:10)
[2016-09-24] MEDS: LISINOPRIL 10 MG TAB PO SCH (20:10)
[2016-09-24] MEDS: BRIMONIDINE TARTRATE 0.2% DROPS 5 ML BTL BOTH EYES SCH (20:10)
[2016-09-24] MEDS: AMITRIPTYLINE HCL 10 MG TAB PO SCH (20:10)
[2016-09-24] MEDS: SIMVASTIN PO SCH (20:11)
[2016-09-24] MEDS: PANTOPRAZOLE 40 MG TABLET PO SCH (20:11)
[2016-09-24] MEDS: BUTA/APAP/CAF/COD 50-325-40-30 CAP PO PRN (20:20)
[2016-09-24] MEDS: CARISOPRODOL 350 MG TAB PO PRN (20:20)
[2016-09-24] MEDS: TEMAZEPAM 30 MG CAP PO PRN (22:52)
[2016-09-25] MEDS: SODIUM CHLORIDE 0.9% 1,000 ML IV SCH ×2 (00:39→14:01)
[2016-09-25] MEDS: HYDROmorphone 1 MG/ML 1 ML SYRINGE IV PRN ×7 (01:57→21:03)
[2016-09-25] MEDS: ALPRAZolam 0.25 MG TAB PO PRN ×2 (01:57→23:16)
[2016-09-25 07:39] LABS: Basophils % (A) 1 %; CHCM 32.8; Eosinophils # (A) 0.2 k/uL (0-0.7); Eosinophils % (A) 4 %; HCT 37.1 % (39.0-53.0); HDW 2.56; HGB 12.5 gm/dL (13.0-17.5); Luc # (Auto) 0.18; Luc % (Auto) 3; Lymphocytes # (A) 1.3 k/uL (1.0-4.8); Lymphocytes % (A) 23 %; MCHC 33.8 g/dL (31.0-37.0); Mean Platelet Volume 6.5; Monocytes # (A) 0.8 k/uL (0-1.0); Monocytes % (A) 14 %; Neutrophils # (A) 3.1 k/uL (1.3-7.7); Neutrophils % (A) 56 %; RBC 4.17 m/uL (4.30-5.90); WBC 5.5 k/uL (3.8-10.6); WBC (Perox) 5.65
[2016-09-25 07:40] LABS: Anion Gap 9 mmol/L; Blood Urea Nitrogen 5 mg/dL (9-20); Calcium 9.1 mg/dL (8.4-10.2); Carbon Dioxide 23 mmol/L (22-30); Chloride 107 mmol/L (98-107); Glucose 98 mg/dL (74-99); Non-African American GFR(MDRD) >60 (>60 ml/min/1.73 sqM); Potassium 4.6 mmol/L (3.5-5.1); Sodium 139 mmol/L (137-145)
[2016-09-25 07:42] LABS: MCV 88.8 fL (80.0-100.0)
--- NOTE | 2016-09-25 08:34 | HP ---
DATE OF SERVICE: 09/24/2016 CHIEF COMPLAINT: Abdominal pain, nausea, diarrhea. HISTORY OF PRESENT ILLNESS: This 65-year-old gentleman was admitted with significant upper abdominal pain, pericholecystitis, laparoscopic cholecystectomy by Dr. Marcus. The patient was complaining of cough and subsequently followed by vomiting, diarrhea and abdominal discomfort. The patient came to [facility] for further evaluation. Sodium was found to be low. Otherwise, there was no history of fever or rigors. No history of headache, loss of consciousness or seizures. PAST MEDICAL HISTORY: Recent laparoscopic cholecystectomy as well as CAD, history of GERD, hyperlipidemia, ( ) with ablation, history of cardiac catheterization. MEDICATIONS PRIOR TO ADMISSION: 1. Restoril 30 mg q.h.s., p.r.n. 2. Carafate 1 gm p.o. b.i.d. 3. Zocor 40 mg q.h.s. 4. Accupril 10 mg b.i.d. 5. Protonix 20 mg p.o. b.i.d. 6. Zofran 4 mg p.r.n. 7. Nitrostat 0.4 q4h p.r.n. 8. Lopressor 25 mg b.i.d. 9. Reglan 25 mg 10. Xalatan 0.01 drop both eyes q.h.s. 11. Soma 50 mg t.i.d. p.r.n. 12. Fioricet. 13. Alphagan 1 drop both eyes b.i.d. 14. Amitriptyline 10 mg. 15. Xanax 0.5 t.i.d. p.r.n. ALLERGIES: LIPITOR: FAMILY HISTORY: Hypertension, hyperlipidemia in the family and ruptured abdominal aortic aneurysm. SOCIAL HISTORY: Previous history of smoking. No alcohol abuse. REVIEW OF SYSTEMS: ENT: Diminished hearing, diminished vision. CARDIOVASCULAR: No angina. RESPIRATORY: As mentioned earlier. GI: As mentioned earlier. : No dysuria. NERVOUS SYSTEM: No numbness, no weakness. MUSCULOSKELETAL: As mentioned earlier. HEMATOLOGY: neg. ENDOCRINE: No history of diabetes or hypothyroidism. CONSTITUTIONAL: As mentioned earlier. PSYCHIATRIC: As mentioned earlier. PHYSICAL EXAMINATION: The patient is alert and oriented x3. Pulse is 69, blood pressure 117/80, respirations 18, temperature 96.8, pulse ox 99% on room air. HEENT: Conjunctivae normal. Oral mucosa moist. NECK: No jugular venous distention, no thyroid enlargement. CARDIOVASCULAR: S1/S2 heard, muffled. RESPIRATIONS: Diminished breath sounds, especially at the bases. A few scattered rhonchi, no crackles. ABDOMEN: Soft. Mild diffuse discomfort to palpation. No masses felt. LEGS: No edema.. NERVOUS SYSTEM: Nonfocal. LABS: WBC ntd, hemoglobin 12. Sodium 124. ASSESSMENT: 1. Abdominal pain and nausea, vomiting and diarrhea. Possible acute gastroenteritis versus acute gastritis. 2. Hyponatremia. 3. History of recent laparoscopic cholecystectomy. 4. Hypertension. 5. History of coronary artery disease. 6. History of gastroesophageal reflux disease. 7. History of gastroesophageal reflux disease. 8. Hyperlipidemia. 9. Multiple other medical issues. RECOMMENDATIONS AND DISCUSSION: This 65-year-old gentleman presented with multiple complex medical issues. Monitor the patient closely, continue current medication, continue symptomatic treatment. Will check a stool for C. diff. Otherwise, Dr. Marcus will be consulted and continue to monitor. Symptomatic treatment will be provided. Further recommendations to follow. See orders for further details. Follow closely with gastroenterology as well as surgery. CHRIS
[2016-09-25] MEDS: LISINOPRIL 10 MG TAB PO SCH ×2 (09:04→21:04)
[2016-09-25] MEDS: BRIMONIDINE TARTRATE 0.2% DROPS 5 ML BTL BOTH EYES SCH ×2 (09:04→21:04)
[2016-09-25] MEDS: SUCRALFATE 1 GM TAB PO SCH ×2 (09:05→21:04)
[2016-09-25] MEDS: METOPROLOL TARTRATE 25 MG TAB PO SCH ×2 (09:05→21:04)
[2016-09-25] MEDS: PANTOPRAZOLE 40 MG TABLET PO SCH ×2 (09:05→21:04)
--- NOTE | 2016-09-25 10:57 | P.CONS ---
History of Present Illness - Reason for Consult Consult date: 09/25/16 abdominal pain Requesting physician: Gustavo Etienne - History of Present Illness 65-year-old gentleman well-known to the GI service with a past medical history of GERD, chronic abdominal pain, laparoscopic cholecystectomy 08/27/2016, and nonobstructing benign appearing duodenal stricture. Patient was feeling very well after gallbladder surgery had gained 12 pounds symptoms of nausea vomiting abdominal pain were improved. He presented with acute nausea vomiting abdominal pain that started Thursday after eating prime rib dinner with salad blue cheese dressing and 1 alcoholic drink at a local restaurant. Patient had multiple episodes of nonbloody emesis, large amount of flatus and nonbloody diarrhea. Nausea vomiting improved last emesis 2 days ago. No diarrhea 24 hours. 2 days prior to the onset of the symptoms he was having some GERD-like symptoms. EGD 07/02/2016 for evaluation of nausea vomiting abdominal pain reporting smooth duodenal stricture not impeding advancement of scope. Linear erosions distal esophagus LA grade B reflux esophagitis without stricture. Clostridium difficile testing has been requested however on collected secondary absence of diarrhea. He has been afebrile. White count 5.5-6.5. Hemoglobin 12.0-12.5. LFTs unremarkable. Sodium 124 presently 139. Review of Systems Constitutional: Denies fever, chills, sweats, weight gain, or loss. HEENT: Negative for migraines, blurred vision or loss, earaches, drainage, tinnitus, oral mucosal lesions, dysphagia, or odynophagia. Cardiac: CAD. GERD. Hyperlipidemia. Hypertension. IN. Cardiac ablation. Negative for chest pain, arrhythmias, or palpitation. Respiratory: Negative for shortness of breath, hemoptysis, cough, or sputum production. Gastrointestinal: See HPI for pertinent findings. Genitourinary: Negative for hematuria, urgency, frequency, polyuria, dysuria, or penile discharge. Musculoskeletal: Chronic back pain. Negative for muscle aches, swelling, arthritis, and arthralgias. Neurologic: Negative for stroke or TIA. Endocrine: Negative for thyroid problems. Skin: Negative for rash or itching. Psychiatric: Negative history for depression and anxiety All systems: negative (See HPI) Past Medical History Past Medical History: Coronary Artery Disease (CAD), Chest Pain / Angina, Eye Disorder, GERD/Reflux, Hyperlipidemia, Hypertension, Myocardial Infarction ([place]) , Osteoarthritis (OA) Additional Past Medical History / Comment(s): SVT with ablation, gastric ulcers , chronic duodenal stricture, bilateral glaucoma, sinusitis, migraines, anemia, esophagitis,hiatal hernia, chronic back pain, past fx ribs/sternum Last Myocardial Infarction Date:: 1999 History of Any Multi-Drug Resistant Organisms: None Reported Past Surgical History: Cardiac Ablation, Cholecystectomy, Heart Catheterization With Stent Additional Past Surgical History / Comment(s): sinus surgery, cataracts bilaterally with lens implants, EGDs/colonoscopies, Past Anesthesia/Blood Transfusion Reactions: No Reported Reaction Additional Past Anesthesia/Blood Transfusion Reaction / Comm: Pt has had past multiple transfusions without reaction. Date of Last Stent Placement:: 1999 Past Psychological History: No Psychological Hx Reported Additional Psychological History / Comment(s): Pt resides with his spouse. 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 He is independent. Smoking Status: Former smoker Past Alcohol Use History: None Reported Additional Past Alcohol Use History / Comment(s): Pt states he started smoking in 1993 and quit in 1999 Past Drug Use History: None Reported - Past Family History Father Additional Family Medical History / Comment(s): Father at the age of 68yrs from a ruptured aortic aneurysm. Mother Family Medical History: Hyperlipidemia, Hypertension Additional Family Medical History / Comment(s): Mother lived into her 80's. Medications and Allergies Home Medications Medication Instructions Recorded Confirmed Type ALPRAZolam [Xanax] 0.25 mg PO TID PRN 07/12/13 09/24/16 History Carisoprodol [Soma] 350 mg PO TID PRN 07/12/13 09/24/16 History Metoprolol Tartrate [Lopressor] 25 mg PO BID 07/12/13 09/24/16 History Simvastatin [Zocor] 40 mg PO HS 07/12/13 09/24/16 History Temazepam [Restoril] 30 mg PO HS PRN 07/12/13 09/24/16 History Amitriptyline HCl 10 mg PO HS 01/26/16 09/24/16 History Nitroglycerin Sl Tabs [Nitrostat] 0.4 mg SUBLINGUAL Q5M PRN 01/28/16 09/24/16 History Brimonidine Tartrate [Alphagan P 1 drops BOTH EYES BID 02/20/16 09/24/16 History 0.2% Ophth Soln] Buta/APAP/Caf/Cod 32-967-70-30 1 cap PO Q8H PRN 02/20/16 09/24/16 History [Fioricet w/Cod 36-565-64-30MG] Latanoprost [Xalatan 0.005%] 1 drop BOTH EYES HS 02/20/16 09/24/16 History Pantoprazole Sodium 40 mg PO BID 06/26/16 09/24/16 History Sucralfate [Carafate] 1 gm PO BID 06/26/16 09/24/16 History Metoclopramide [Reglan] 5 mg PO Q6H PRN 08/24/16 09/24/16 History Quinapril HCl [Accupril] 10 mg PO BID 08/24/16 09/24/16 History Allergies Allergy/AdvReac Type Severity Reaction Status Date / Time atorvastatin [From Lipitor] AdvReac Unknown Verified 09/24/16 11:34 Physical Exam Vitals: Vital Signs Temp Pulse Pulse Pulse Resp BP BP 09/25/16 07:15 97 F L 62 16 155/70 09/25/16 01:04 96.5 F L 63 16 106/59 09/24/16 19:26 97.6 F 71 16 146/72 09/24/16 17:02 96.9 F L 63 16 158/85 09/24/16 16:01 97.8 F 09/24/16 15:56 64 18 168/80 09/24/16 15:07 69 18 170/89 09/24/16 14:32 65 18 150/86 09/24/16 13:03 97.3 F L 78 18 136/79 09/24/16 11:12 98.6 F 73 18 124/71 Pulse Ox 09/25/16 07:15 100 09/25/16 01:04 99 09/24/16 19:26 98 09/24/16 17:02 97 09/24/16 16:01 09/24/16 15:56 98 09/24/16 15:07 98 09/24/16 14:32 100 09/24/16 13:03 98 09/24/16 11:12 97 Intake and Output 09/24/16 09/25/16 09/25/16 22:59 06:59 14:59 Intake Total 590 800 Balance 590 800 Intake: Oral 590 800 Other: # Voids 3 3 Weight 83.915 kg General appearance: The patient is alert, oriented, in no acute distress. HET: Head is normocephalic and atraumatic. Pupils are equal and reactive. Oropharynx is clear without lesions. Neck: Supple without lymphadenopathy. Trachea midline. Heart: S1 S2. Regular rate and rhythm. Lungs: No crackles or wheezes are heard. Abdomen: Soft, mild right-sided mid quadrant tenderness, nondistended with bowel sounds. No peritoneal signs. No palpable organomegaly or masses. Extremities: Normal skin color and turgor. No cyanosis, rash, ulceration, clubbing, or edema. Radial and pedal pulses are 2/4 bilaterally. Neurological: No focal deficits. Strength and sensation are grossly intact. Results CBC & Chem 7: 09/25/16 07:04 09/25/16 07:04 Labs: Abnormal Lab Results - Last 24 Hours (Table) 09/24/16 09/24/16 09/25/16 Range/Units 12:04 12:04 01:50 RBC 4.16 L (4.30-5.90) m/uL Hgb 12.0 L (13.0-17.5) gm/dL Hct 34.3 L (39.0-53.0) % Sodium 124 L (137-145) mmol/L Chloride 94 L (98-107) mmol/L Carbon Dioxide 21 L (22-30) mmol/L BUN 5 L (9-20) mg/dL Creatinine 0.60 L (0.66-1.25) mg/dL Glucose 103 H (74-99) mg/dL AST 15 L (17-59) U/L Urine Opiates Screen Detected H (NotDetected) Ur Barbiturates Screen Detected H (NotDetected) U Benzodiazepines Scrn Detected H (NotDetected) 09/25/16 09/25/16 Range/Units 07:04 07:04 RBC 4.17 L (4.30-5.90) m/uL Hgb 12.5 L (13.0-17.5) gm/dL Hct 37.1 L (39.0-53.0) % Sodium (137-145) mmol/L Chloride (98-107) mmol/L Carbon Dioxide (22-30) mmol/L BUN 5 L (9-20) mg/dL Creatinine (0.66-1.25) mg/dL Glucose (74-99) mg/dL AST (17-59) U/L Urine Opiates Screen (NotDetected) Ur Barbiturates Screen (NotDetected) U Benzodiazepines Scrn (NotDetected) Assessment and Plan (1) Gastroenteritis Status: Acute Plan: 1. Symptoms are improving therefore advance diet as tolerated. Supportive measures. Thank you for this kind referral and the opportunity to participate in the care of your patient. This consultation was discussed with Dr. Subramanian. The impression and plan of care have been directed as dictated.
[2016-09-25] MEDS: BUTA/APAP/CAF/COD 50-325-40-30 CAP PO PRN (14:06)
--- NOTE | 2016-09-25 17:02 | PN ---
DATE OF SERVICE: 09/25/16 This 65-year-old gentleman who was admitted with abdominal pain, nausea, is improving significantly. The patient also has Hyponatremia yesterday. No chest pain. No palpitations. No fever. PHYSICAL EXAMINATION: The patient is alert and oriented times three. Pulse 62. Blood pressure 155/70. Respiratory rate 16. Temperature 97 degrees. Pulse ox 100% on room air. HEENT: Conjunctivae normal. NECK: No JVD. Cardiovascular: S1, S2 muffled. Respiratory: Breath sounds diminished at the bases. A few scattered rhonchi and no crackles. Abdomen soft. Obese. Nontender. Legs no edema. No swelling. Nervous system: No focal deficits. Labs: Sodium 139. ASSESSMENT: 1. Abdominal pain, nausea and vomiting, diarrhea, possible acute gastroenteritis. 2. Hyponatremia, improving. 3. History of recent laparoscopic cholecystectomy. 4. History of hypertension. 5. History of coronary artery disease. RECOMMENDATIONS AND DISCUSSION: Continue the current medications. Continue symptomatic treatment. Otherwise, at this time, I would also recommend continue IV fluids. Increase ambulation. Advance diet. Further recommendations to follow. MTDD
[2016-09-25] MEDS: AMITRIPTYLINE HCL 10 MG TAB PO SCH (21:04)
[2016-09-25] MEDS: LATANOPROST 0.005% OPHTH DROPS 2.5 ML BTL BOTH EYES SCH (21:04)
[2016-09-25] MEDS: SIMVASTIN PO SCH (21:04)
[2016-09-25] MEDS: TEMAZEPAM 30 MG CAP PO PRN (23:16)
[2016-09-26] MEDS: HYDROmorphone 1 MG/ML 1 ML SYRINGE IV PRN (07:01)
[2016-09-26 07:19] VITALS: TEMP 97.1
[2016-09-26 07:25] VITALS: PULSE 63
[2016-09-26 07:39] LABS: Basophils % (A) 0 %; CH 29.4; CHCM 33.9; Eosinophils # (A) 0.3 k/uL (0-0.7); Eosinophils % (A) 4 %; HCT 35.3 % (39.0-53.0); HDW 2.56; HGB 11.6 gm/dL (13.0-17.5); Luc # (Auto) 0.25; Luc % (Auto) 4; Lymphocytes # (A) 1.8 k/uL (1.0-4.8); Lymphocytes % (A) 25 %; MCH 28.6 pg (25.0-35.0); MCHC 32.8 g/dL (31.0-37.0); Mean Platelet Volume 6.7; Monocytes # (A) 0.7 k/uL (0-1.0); Monocytes % (A) 10 %; Neutrophils % (A) 57 %; RBC 4.06 m/uL (4.30-5.90); WBC (Perox) 6.87
[2016-09-26 07:56] LABS: Anion Gap 9 mmol/L; Blood Urea Nitrogen 6 mg/dL (9-20); Carbon Dioxide 23 mmol/L (22-30); Chloride 106 mmol/L (98-107); Glucose 95 mg/dL (74-99); Non-African American GFR(MDRD) >60 (>60 ml/min/1.73 sqM); Sodium 138 mmol/L (137-145)
--- NOTE | 2016-09-26 08:25 | P.PN ---
Subjective Principal diagnosis: abdominal pain diarrhea. No diarrhea. Anticipating DC. Tolerating diet. Afevbrile. Feels better. Objective - Vital Signs Vital signs: Vital Signs Temp 97.1 F L 09/26/16 07:00 Pulse 63 09/26/16 07:23 Resp 16 09/26/16 07:23 BP 194/86 09/26/16 07:00 Pulse Ox 97 09/26/16 07:00 Intake & Output 09/25/16 09/26/16 09/26/16 18:59 06:59 18:59 Intake Total 800 2300 Output Total 1560 Balance 800 740 Intake: Intake, IV Titration 1600 Amount Sodium Chloride 0.9% 1, 1600 000 ml @ 100 mls/hr IV . Q10H DANIEL Rx#:[id number] Oral 800 700 Output: Urine 1560 Other: # Voids 2 - Exam General appearance: The patient is alert, oriented, in no acute distress. HET: Head is normocephalic and atraumatic. Pupils are equal and reactive. Oropharynx is clear without lesions. Neck: Supple without lymphadenopathy. Trachea midline. Heart: S1 S2. Regular rate and rhythm. Lungs: No crackles or wheezes are heard. Abdomen: Soft, mild right-sided mid quadrant tenderness, nondistended with bowel sounds. No peritoneal signs. No palpable organomegaly or masses. Extremities: Normal skin color and turgor. No cyanosis, rash, ulceration, clubbing, or edema. Radial and pedal pulses are 2/4 bilaterally. Neurological: No focal deficits. Strength and sensation are grossly intact. - Labs CBC & Chem 7: 09/26/16 07:05 09/26/16 07:05 Labs: Abnormal Lab Results - Last 24 Hours (Table) 09/26/16 09/26/16 Range/Units 07:05 07:05 RBC 4.06 L (4.30-5.90) m/uL Hgb 11.6 L (13.0-17.5) gm/dL Hct 35.3 L (39.0-53.0) % BUN 6 L (9-20) mg/dL Creatinine 0.64 L (0.66-1.25) mg/dL Assessment and Plan (1) Gastroenteritis Status: Acute Plan: 1. Symptoms are improving DC per medicine. Supportive measures. Assessment and plan of care discussed with Dr. Subramanian.
[2016-09-26] MEDS: SODIUM CHLORIDE 0.9% 1,000 ML IV SCH ×2 (08:38→08:39)
[2016-09-26] MEDS: BRIMONIDINE TARTRATE 0.2% DROPS 5 ML BTL BOTH EYES SCH (08:41)
[2016-09-26] MEDS: SUCRALFATE 1 GM TAB PO SCH (08:42)
[2016-09-26] MEDS: METOPROLOL TARTRATE 25 MG TAB PO SCH (08:42)
[2016-09-26] MEDS: PANTOPRAZOLE 40 MG TABLET PO SCH (08:42)
[2016-09-26] MEDS: LISINOPRIL 10 MG TAB PO SCH (08:42)
[2016-09-26] MEDS: BUTA/APAP/CAF/COD 50-325-40-30 CAP PO PRN (08:45)
[2016-09-26] MEDS: CARISOPRODOL 350 MG TAB PO PRN (08:46)
--- NOTE | 2016-09-26 09:34 | P.GSCN ---
History of Present Illness History of present illness: The surgical consult was not relayed. The chart was reviewed today and appears the patient's going home. I talked to him and he is currently asymptomatic. Past Medical History Past Medical History: Coronary Artery Disease (CAD), Chest Pain / Angina, Eye Disorder, GERD/Reflux, Hyperlipidemia, Hypertension, Myocardial Infarction ([place]) , Osteoarthritis (OA) Additional Past Medical History / Comment(s): SVT with ablation, gastric ulcers , chronic duodenal stricture, bilateral glaucoma, sinusitis, migraines, anemia, esophagitis,hiatal hernia, chronic back pain, past fx ribs/sternum Last Myocardial Infarction Date:: 1999 History of Any Multi-Drug Resistant Organisms: None Reported Past Surgical History: Cardiac Ablation, Cholecystectomy, Heart Catheterization With Stent Additional Past Surgical History / Comment(s): sinus surgery, cataracts bilaterally with lens implants, EGDs/colonoscopies, Past Anesthesia/Blood Transfusion Reactions: No Reported Reaction Additional Past Anesthesia/Blood Transfusion Reaction / Comm: Pt has had past multiple transfusions without reaction. Date of Last Stent Placement:: 1999 Past Psychological History: No Psychological Hx Reported Additional Psychological History / Comment(s): Pt resides with his spouse. 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 Smoking Status: Former smoker Past Alcohol Use History: None Reported Additional Past Alcohol Use History / Comment(s): Pt states he started smoking in 1993 and quit in 1999 Past Drug Use History: None Reported - Past Family History Father Additional Family Medical History / Comment(s): Father at the age of 68yrs from a ruptured aortic aneurysm. Mother Family Medical History: Hyperlipidemia, Hypertension Additional Family Medical History / Comment(s): Mother lived into her 80's. Medications and Allergies Home Medications Medication Instructions Recorded Confirmed Type ALPRAZolam [Xanax] 0.25 mg PO TID PRN 07/12/13 09/24/16 History Carisoprodol [Soma] 350 mg PO TID PRN 07/12/13 09/24/16 History Metoprolol Tartrate [Lopressor] 25 mg PO BID 07/12/13 09/24/16 History Simvastatin [Zocor] 40 mg PO HS 07/12/13 09/24/16 History Temazepam [Restoril] 30 mg PO HS PRN 07/12/13 09/24/16 History Amitriptyline HCl 10 mg PO HS 01/26/16 09/24/16 History Nitroglycerin Sl Tabs [Nitrostat] 0.4 mg SUBLINGUAL Q5M PRN 01/28/16 09/24/16 History Brimonidine Tartrate [Alphagan P 1 drops BOTH EYES BID 02/20/16 09/24/16 History 0.2% Ophth Soln] Buta/APAP/Caf/Cod 07-844-26-30 1 cap PO Q8H PRN 02/20/16 09/24/16 History [Fioricet w/Cod 91-324-59-30MG] Latanoprost [Xalatan 0.005%] 1 drop BOTH EYES HS 02/20/16 09/24/16 History Pantoprazole Sodium 40 mg PO BID 06/26/16 09/24/16 History Sucralfate [Carafate] 1 gm PO BID 06/26/16 09/24/16 History Metoclopramide [Reglan] 5 mg PO Q6H PRN 08/24/16 09/24/16 History Quinapril HCl [Accupril] 10 mg PO BID 08/24/16 09/24/16 History Allergies Allergy/AdvReac Type Severity Reaction Status Date / Time atorvastatin [From Lipitor] AdvReac Unknown Verified 09/24/16 11:34 Surgical - Exam Osteopathic Statement: *. No significant issues noted on an osteopathic structural exam other than those noted in the History and Physical/Consult. Vital Signs Temp Pulse Resp BP Pulse Ox 98.6 F 73 18 124/71 97 09/24/16 11:12 09/24/16 11:12 09/24/16 11:12 09/24/16 11:12 09/24/16 11:12 Results - Labs 09/26/16 07:05 09/26/16 07:05 Abnormal Lab Results - Last 24 Hours (Table) 09/26/16 09/26/16 Range/Units 07:05 07:05 RBC 4.06 L (4.30-5.90) m/uL Hgb 11.6 L (13.0-17.5) gm/dL Hct 35.3 L (39.0-53.0) % BUN 6 L (9-20) mg/dL Creatinine 0.64 L (0.66-1.25) mg/dL Diabetes panel 09/26/16 Range/Units 07:05 Sodium 138 (137-145) mmol/L Potassium 4.0 (3.5-5.1) mmol/L Chloride 106 (98-107) mmol/L Carbon Dioxide 23 (22-30) mmol/L BUN 6 L (9-20) mg/dL Creatinine 0.64 L (0.66-1.25) mg/dL Glucose 95 (74-99) mg/dL Calcium 9.0 (8.4-10.2) mg/dL Calcium panel 09/26/16 Range/Units 07:05 Calcium 9.0 (8.4-10.2) mg/dL Pituitary panel 09/26/16 Range/Units 07:05 Sodium 138 (137-145) mmol/L Potassium 4.0 (3.5-5.1) mmol/L Chloride 106 (98-107) mmol/L Carbon Dioxide 23 (22-30) mmol/L BUN 6 L (9-20) mg/dL Creatinine 0.64 L (0.66-1.25) mg/dL Glucose 95 (74-99) mg/dL Calcium 9.0 (8.4-10.2) mg/dL Adrenal panel 09/26/16 Range/Units 07:05 Sodium 138 (137-145) mmol/L Potassium 4.0 (3.5-5.1) mmol/L Chloride 106 (98-107) mmol/L Carbon Dioxide 23 (22-30) mmol/L BUN 6 L (9-20) mg/dL Creatinine 0.64 L (0.66-1.25) mg/dL Glucose 95 (74-99) mg/dL Calcium 9.0 (8.4-10.2) mg/dL Assessment and Plan Plan: Please notify us if he like the patient evaluated
[2016-09-26 11:54] VITALS: BP 136/72
--- NOTE | 2016-09-28 12:13 | DS ---
FINAL DIAGNOSES: 1. Abdominal pain, nausea and vomiting, possible acute gastroenteritis. 2. Hyponatremia, improved. 3. History of recent laparoscopic cholecystectomy. 4. History of hypertension. 5. History of coronary artery disease. DISCHARGE DISPOSITION: The patient is being discharged in stable condition with guarded prognosis. HISTORY OF PRESENT ILLNESS: This 65-year-old gentleman with past medical history of multiple medical problems admitted with Hyponatremia and features of acute gastroenteritis, treated with IV fluids, improved significantly. On exam, vital signs are stable. Cardiovascular: S1, S2. Abdomen soft. Nontender. Nervous system: No focal deficits. The patient is being discharged in stable condition with guarded prognosis. DISCHARGE ADVICE AND MEDICATIONS: 1. Diet is cardiac. 2. Activity limited until follow up. 3. Follow-up with Dr. Yuen in two to three days. 4. CBC and BMP. 5. Follow-up with Dr. Subramanian as recommended. Medications are: 1. Xanax 0.5 t.i.d. prn. 2. Amitriptyline 10 mg q.h.s. 3. Alphagan 0.2% both eyes. 4. Fioricet one q8 prn 5. Soma 350 mg t.i.d. 6. Xalatan one drop both eyes. 7. Reglan 5 mg q6h prn. 8. Lopressor 25 mg po b.i.d. 9. Nitrostat 0.4 sublingual prn. 10. Zofran 4 mg po q8h prn. 11. Protonix 40 mg po b.i.d. 12. Accupril 10 mg po b.i.d. 13. Zocor 40 mg q.h.s. 14. Carafate 1 gm po b.i.d. 15. Restoril 30 mg q.h.s. prn. MTDD
== END 2016-09-26 12:45 | disposition home or self-care (01) | DRG 392 ==
LOC: EC 10:58 → 3SUR 14:45
PROVIDERS: ADMIT Hospitalist; ATTEND Hospitalist
DX: K52.9 Noninfective gastroenteritis and colitis, unspecified (principal); K31.5 Obstruction of duodenum; E87.1 Hypo-osmolality and hyponatremia; I10 Essential (primary) hypertension; E78.5 Hyperlipidemia, unspecified; H40.9 Unspecified glaucoma; I25.10 Atherosclerotic heart disease of native coronary artery without angina pectoris; I25.2 Old myocardial infarction; K21.0 Gastro-esophageal reflux disease with esophagitis; G43.909 Migraine, unspecified, not intractable, without status migrainosus; D64.9 Anemia, unspecified; G89.29 Other chronic pain; K44.9 Diaphragmatic hernia without obstruction or gangrene; M19.90 Unspecified osteoarthritis, unspecified site; M54.9 Dorsalgia, unspecified; Z79.899 Other long term (current) drug therapy; Z87.891 Personal history of nicotine dependence; Z88.8 Allergy status to other drugs, medicaments and biological substances; Z95.5 Presence of coronary angioplasty implant and graft; Z82.49 Family history of ischemic heart disease and other diseases of the circulatory system
CPT/HCPCS: 36415; 74022; 80048; 80053; 80306; 81003; 82150; 83690; 85025; 96361; 96374; 99285

== ENCOUNTER 2017-04-13 17:57 | Emergency (ER) | payer MEDICARE ==
[2017-04-13 18:41] VITALS: BP 143/88; PULSE 108; RESP 20; TEMP 98.3
[2017-04-13] MEDS ORDERED: DEXAMETHASONE SOD PHOSPHATE 10 MG/ML 1 ML VIAL IM STA (19:00)
[2017-04-13] MEDS ORDERED: ONDANSETRON ODT 4 MG TAB PO STA (19:00)
[2017-04-13] MEDS ORDERED: HYDROmorphone 2 MG/ML 1 ML SYRINGE IM STA (19:00)
[2017-04-13] MEDS ORDERED: LIDOCAINE 5% PATCH TOPICAL STA (19:03)
--- NOTE | 2017-04-13 19:16 | ED ---
General Adult HPI - General Chief complaint: Back Pain/Injury Stated complaint: BACK PAIN Time Seen by Provider: 04/13/17 18:52 Source: patient, RN notes reviewed Mode of arrival: wheelchair Limitations: no limitations - History of Present Illness Initial comments: Patient 66-year-old male with a significant past medical history for sciatica, who presents emergency room today with a chief complaint of increased pain in his lower back. He does admit that he was lifting a heavy or prolonged 3 days ago. He states tetanus feel any specific injury at the time but shortly thereafter began having increased pain in his lower back greater than the left lower side also has some radiation into the right leg. He states had this radiation down the right leg in the past with his sciatica. Denies bowel or bladder incontinence retention. Denies any saddle anesthesia. Denies any other complaints or associated symptoms currently. Patient does not that he's been using Fioricet at home along with Soma with little relief of symptoms. Patient denies any recent fever, chills, shortness of breath, chest pain, abdominal pain, nausea or vomiting, dysuria or hematuria, constipation or diarrhea, headaches or visual changes, or any other complaints. - Related Data Home Medications Medication Instructions Recorded Confirmed ALPRAZolam [Xanax] 0.25 mg PO TID PRN 07/12/13 09/24/16 Carisoprodol [Soma] 350 mg PO TID PRN 07/12/13 09/24/16 Metoprolol Tartrate [Lopressor] 25 mg PO BID 07/12/13 09/24/16 Simvastatin [Zocor] 40 mg PO HS 07/12/13 09/24/16 Temazepam [Restoril] 30 mg PO HS PRN 07/12/13 09/24/16 Amitriptyline HCl 10 mg PO HS 01/26/16 09/24/16 Nitroglycerin Sl Tabs [Nitrostat] 0.4 mg SUBLINGUAL Q5M PRN 01/28/16 09/24/16 Brimonidine Tartrate [Alphagan P 1 drops BOTH EYES BID 02/20/16 09/24/16 0.2% Ophth Soln] Buta/APAP/Caf/Cod 34-487-98-30 1 cap PO Q8H PRN 02/20/16 09/24/16 [Fioricet w/Cod 18-642-82-30MG] Latanoprost [Xalatan 0.005%] 1 drop BOTH EYES HS 02/20/16 09/24/16 Pantoprazole Sodium 40 mg PO BID 06/26/16 09/24/16 Sucralfate [Carafate] 1 gm PO BID 06/26/16 09/24/16 Metoclopramide [Reglan] 5 mg PO Q6H PRN 08/24/16 09/24/16 Quinapril HCl [Accupril] 10 mg PO BID 08/24/16 09/24/16 Previous Rx's Medication Instructions Recorded Ondansetron Odt [Zofran ODT] 4 mg PO Q8HR PRN #5 tab 02/21/16 Hydrocodone/Acetaminophen [[place] 1 each PO Q6HR PRN #12 tab 04/13/17 5-325] Allergies Allergy/AdvReac Type Severity Reaction Status Date / Time atorvastatin [From Lipitor] AdvReac Unknown Verified 04/13/17 18:41 Review of Systems ROS Statement: Those systems with pertinent positive or pertinent negative responses have been documented in the HPI. ROS Other: All systems not noted in ROS Statement are negative. Past Medical History Past Medical History: Coronary Artery Disease (CAD), Chest Pain / Angina, Eye Disorder, GERD/Reflux, Hyperlipidemia, Hypertension, Myocardial Infarction ([place]) , Osteoarthritis (OA) Additional Past Medical History / Comment(s): SVT with ablation, gastric ulcers , chronic duodenal stricture, bilateral glaucoma, sinusitis, migraines, anemia, esophagitis,hiatal hernia, chronic back pain, past fx ribs/sternum Last Myocardial Infarction Date:: 1999 History of Any Multi-Drug Resistant Organisms: None Reported Past Surgical History: Cardiac Ablation, Cholecystectomy, Heart Catheterization With Stent Additional Past Surgical History / Comment(s): sinus surgery, cataracts bilaterally with lens implants, EGDs/colonoscopies, Past Anesthesia/Blood Transfusion Reactions: No Reported Reaction Additional Past Anesthesia/Blood Transfusion Reaction / Comment(s): Pt has had past multiple transfusions without reaction. Date of Last Stent Placement:: 1999 Past Psychological History: No Psychological Hx Reported Smoking Status: Former smoker Past Alcohol Use History: None Reported Past Drug Use History: None Reported - Past Family History Father Additional Family Medical History / Comment(s): Father at the age of 68yrs from a ruptured aortic aneurysm. Mother Family Medical History: Hyperlipidemia, Hypertension Additional Family Medical History / Comment(s): Mother lived into her 80's. General Exam - General Exam Comments Initial Comments: General: The patient is awake and alert, in no distress, and does not appear acutely ill. Eye: Pupils are equal, round and reactive to light, extra-ocular movements are intact. No nystagmus. There is normal conjunctiva bilaterally. No signs of icterus. Ears, nose, mouth and throat: There are moist mucous membranes and no oral lesions. Neck: The neck is supple, there is no tenderness or JVD. Cardiovascular: There is a regular rate and rhythm. No murmur, rub or gallop is appreciated. Respiratory: Lungs are clear to auscultation, respirations are non-labored, breath sounds are equal. No wheezes, stridor, rales, or rhonchi. Musculoskeletal: Normal ROM. No tenderness midline through the thoracic or lumbar spine. Increased tenderness paravertebrally both to the lower lumbar of the left and right sides. Strength 5/5. Sensation intact. Pulses equal bilaterally 2+. Neurological: A&O x 3. CN II-XII intact, There are no obvious motor or sensory deficits. Coordination appears grossly intact. Speech is normal. Skin: Skin is warm and dry and no rashes or lesions are noted. Psychiatric: Cooperative, appropriate mood & affect, normal judgment. Limitations: no limitations Course Vital Signs 04/13/17 18:38 Temperature 98.3 F Pulse Rate 108 H Respiratory 20 Rate Blood Pressure 143/88 O2 Sat by Pulse 97 Oximetry Medical Decision Making - Medical Decision Making Patient given dose pain medication here in the emergency room will be discharged home with pain medication. Advised follow-up with orthopedic doctor for further evaluation. Disposition Clinical Impression: Acute exacerbation of chronic low back pain Disposition: HOME SELF-CARE Condition: Good Instructions: Acute Low Back Pain (ED) Additional Instructions: Please use medication as discussed. Please follow-up with orthopedics tomorrow as discussed. Please return to emergency room if the symptoms increase or worsen or for any other concerns. Prescriptions: Hydrocodone/Acetaminophen [[place] 5-325] 1 each PO Q6HR PRN #12 tab PRN Reason: Pain Referrals: Garrison Yuen MD [Primary Care Provider] - 1-2 days Silvestre Tompkins DO [Doctor of Osteopathic Medicine] - 1-2 days Time of Disposition: 19:23
== END 2017-04-13 19:40 | disposition home or self-care (01) ==
LOC: EC 17:57
DX: G89.29 Other chronic pain (principal); M54.5 Low back pain; M79.604 Pain in right leg; E78.5 Hyperlipidemia, unspecified; I10 Essential (primary) hypertension; I25.10 Atherosclerotic heart disease of native coronary artery without angina pectoris; K21.9 Gastro-esophageal reflux disease without esophagitis; H40.9 Unspecified glaucoma; I25.2 Old myocardial infarction; Z87.891 Personal history of nicotine dependence; Z79.899 Other long term (current) drug therapy; Z88.8 Allergy status to other drugs, medicaments and biological substances; Z86.79 Personal history of other diseases of the circulatory system; Z87.19 Personal history of other diseases of the digestive system
CPT/HCPCS: 99283; 96372 ×2; J1170; J1100

== ENCOUNTER 2017-06-04 20:40 | Inpatient (IN) | payer MEDICARE ==
[2017-06-04] MEDS ORDERED: NITROGLYCERIN SL TABS 0.4 MG TAB SUBLINGUAL STA (21:04)
[2017-06-04] MEDS ORDERED: MORPHINE SULFATE 4MG/4ML SYRG IVP STA (21:04)
--- NOTE | 2017-06-04 21:23 | CT ---
EXAMINATION TYPE: CT brain wo con DATE OF EXAM: 06/04/2017 COMPARISON: 02/20/2016 INDICATION: Onset confusion DLP: 730.2 mGycm, Automated exposure control for dose reduction was used. CONTRAST: None CT of the brain is performed utilizing 3 mm thick sections through the posterior fossa and 3 mm thick sections through the remaining calvarium. Study is performed within 24 hours of arrival to the hosp ital. No abnormal hyperdensity is present to suggest an acute intracranial hemorrhage. No mass lesion is evident. No acute infarcts are evident. Ventricles and sulci are appropriate for the patient age. Paranasal sinuses and mastoid air cells within the [id number] are clear. IMPRESSIONS: 1. No acute intracranial process.
[2017-06-04 21:27] LABS: Basophils % (A) 0 %; Eosinophils # (A) 0.3 k/uL (0-0.7); Eosinophils % (A) 3 %; HCT 35.1 % (39.0-53.0); HGB 12.7 gm/dL (13.0-17.5); Lymphocytes # (A) 2.4 k/uL (1.0-4.8); Lymphocytes % (A) 23 %; MCH 30.4 pg (25.0-35.0); MCHC 36.2 g/dL (31.0-37.0); Mean Platelet Volume 6.4; Monocytes # (A) 1.1 k/uL (0-1.0); Monocytes % (A) 10 %; Neutrophils # (A) 6.4 k/uL (1.3-7.7); Neutrophils % (A) 62 %; Platelet Count 315 k/uL (150-450); RBC 4.18 m/uL (4.30-5.90); RDW 12.1 % (11.5-15.5); WBC 10.3 k/uL (3.8-10.6)
[2017-06-04 21:30] LABS: Glucose,Whole Blood 127 mg/dL (75-99)
[2017-06-04 21:33] LABS: ALT 27 U/L (21-72); AST 16 U/L (17-59); Alkaline Phosphatase 90 U/L (38-126); Anion Gap 12 mmol/L; Blood Urea Nitrogen 4 mg/dL (9-20); Calcium 8.7 mg/dL (8.4-10.2); Carbon Dioxide 19 mmol/L (22-30); Chloride 81 mmol/L (98-107); Glucose 124 mg/dL (74-99); Magnesium 1.4 mg/dL (1.6-2.3); Potassium 3.6 mmol/L (3.5-5.1); Total Bilirubin 0.5 mg/dL (0.2-1.3); Total Protein 6.7 g/dL (6.3-8.2)
[2017-06-04 21:36] LABS: Sodium 112 mmol/L (137-145)
[2017-06-04 21:40] LABS: D-Dimer 0.43 mg/L FEU (<0.60); INR 1.1 (<1.2); Partial Thromboplastin Time 25.2 sec (22.0-30.0); Prothrombin Time 10.4 sec (9.0-12.0)
[2017-06-04 21:57] LABS: Creatine Kinase 134 U/L (55-170)
--- NOTE | 2017-06-04 22:05 | XR ---
EXAMINATION TYPE: XR chest 2V DATE OF EXAM: 06/04/2017 COMPARISON: 08/23/2016 INDICATION: Coronary artery disease angina previous heart attack TECHNIQUE: Frontal and lateral views of the chest are obtained. FINDINGS: The heart size is normal. The pulmonary vasculature is normal. The lungs are clear. IMPRESSION: 1. No acute pulmonary process.
[2017-06-04 22:09] LABS: Troponin I <0.012 ng/mL (0.000-0.034)
[2017-06-04 22:11] LABS: Creatine Kinase MB 2.8 ng/mL (0.0-2.4)
[2017-06-04] MEDS ORDERED: SODIUM CHLORIDE 0.9% 500 ML IV STA (22:22)
[2017-06-04] MEDS ORDERED: SODIUM CHLORIDE 0.9% 1,000 ML IV STA ×2 (22:22)
[2017-06-04] MEDS: ONDANSETRON 4 MG/2 ML VIAL IVP STA ×2 (22:32→22:40)
[2017-06-04] MEDS ORDERED: ASPIRIN 81 MG PO STA (22:57)
[2017-06-04] MEDS ORDERED: NITROGLYCERIN SL TABS 0.4 MG TAB SUBLINGUAL PRN (22:57)
--- NOTE | 2017-06-04 23:01 | ED ---
General Adult HPI - General Chief complaint: Chest Pain Stated complaint: Ches pain Time Seen by Provider: 06/04/17 21:21 Source: patient, RN notes reviewed, old records reviewed Mode of arrival: wheelchair Limitations: no limitations - History of Present Illness Initial comments: This is a 58-year-old male the ER for evaluation. Patient presents with altered mental status. Patient's states this earlier today, patient does complain of chest pain. Mother is a patient's states he does have history of low sodium, She admits to decreased oral intake decreased mental state starting this afternoon - Related Data Home Medications Medication Instructions Recorded Confirmed ALPRAZolam [Xanax] 0.25 mg PO TID PRN 07/12/13 06/04/17 Carisoprodol [Soma] 350 mg PO TID PRN 07/12/13 06/04/17 Metoprolol Tartrate [Lopressor] 25 mg PO BID 07/12/13 06/04/17 Simvastatin [Zocor] 40 mg PO HS 07/12/13 06/04/17 Temazepam [Restoril] 30 mg PO HS PRN 07/12/13 06/04/17 Amitriptyline HCl 10 mg PO HS 01/26/16 06/04/17 Nitroglycerin Sl Tabs [Nitrostat] 0.4 mg SUBLINGUAL Q5M PRN 01/28/16 06/04/17 Brimonidine Tartrate [Alphagan P 1 drops BOTH EYES BID 02/20/16 06/04/17 0.2% Ophth Soln] Buta/APAP/Caf/Cod [id number] 1 cap PO Q8H PRN 02/20/16 06/04/17 [Fioricet w/Cod 20-102-53-30MG] Latanoprost [Xalatan 0.005%] 1 drop BOTH EYES HS 02/20/16 06/04/17 Pantoprazole Sodium 40 mg PO BID 06/26/16 06/04/17 Metoclopramide [Reglan] 5 mg PO Q6H PRN 08/24/16 06/04/17 Quinapril HCl [Accupril] 10 mg PO BID 08/24/16 06/04/17 Aspirin EC [Ecotrin Low Dose] 81 mg PO DAILY 06/04/17 06/04/17 Dicyclomine [Bentyl] 10 mg PO TID PRN 06/04/17 06/04/17 Previous Rx's Medication Instructions Recorded Ondansetron Odt [Zofran ODT] 4 mg PO Q8HR PRN #5 tab 02/21/16 Allergies Allergy/AdvReac Type Severity Reaction Status Date / Time atorvastatin [From Lipitor] AdvReac Unknown Verified 06/04/17 21:13 Review of Systems ROS Statement: Those systems with pertinent positive or pertinent negative responses have been documented in the HPI. ROS Other: All systems not noted in ROS Statement are negative. Past Medical History Past Medical History: Coronary Artery Disease (CAD), Chest Pain / Angina, Eye Disorder, GERD/Reflux, Hyperlipidemia, Hypertension, Myocardial Infarction ([place]) , Osteoarthritis (OA) Additional Past Medical History / Comment(s): SVT with ablation, gastric ulcers , chronic duodenal stricture, bilateral glaucoma, sinusitis, migraines, anemia, esophagitis,hiatal hernia, chronic back pain, past fx ribs/sternum Last Myocardial Infarction Date:: 1999 History of Any Multi-Drug Resistant Organisms: None Reported Past Surgical History: Cardiac Ablation, Cholecystectomy, Heart Catheterization With Stent Additional Past Surgical History / Comment(s): sinus surgery, cataracts bilaterally with lens implants, EGDs/colonoscopies, Past Anesthesia/Blood Transfusion Reactions: No Reported Reaction Additional Past Anesthesia/Blood Transfusion Reaction / Comment(s): Pt has had past multiple transfusions without reaction. Date of Last Stent Placement:: 1999 Past Psychological History: No Psychological Hx Reported Smoking Status: Former smoker Past Alcohol Use History: None Reported Past Drug Use History: None Reported - Past Family History Father Additional Family Medical History / Comment(s): Father at the age of 68yrs from a ruptured aortic aneurysm. Mother Family Medical History: Hyperlipidemia, Hypertension Additional Family Medical History / Comment(s): Mother lived into her 80's. General Exam Limitations: altered mental status General appearance: alert, in no apparent distress Head exam: Present: atraumatic, normocephalic, normal inspection Eye exam: Present: normal appearance, PERRL, EOMI. Absent: scleral icterus, conjunctival injection, periorbital swelling ENT exam: Present: normal exam, mucous membranes moist Neck exam: Present: normal inspection. Absent: tenderness, meningismus, lymphadenopathy Respiratory exam: Present: normal lung sounds bilaterally. Absent: respiratory distress, wheezes, rales, rhonchi, stridor Cardiovascular Exam: Present: regular rate, normal rhythm, normal heart sounds. Absent: systolic murmur, diastolic murmur, rubs, gallop, clicks GI/Abdominal exam: Present: soft, normal bowel sounds. Absent: distended, tenderness, guarding, rebound, rigid Extremities exam: Present: normal inspection, full ROM, normal capillary refill. Absent: tenderness, pedal edema, joint swelling, calf tenderness Back exam: Present: normal inspection Neurological exam: Present: alert, oriented X3, CN II-XII intact Psychiatric exam: Present: normal affect, normal mood Skin exam: Present: warm, dry, intact, normal color. Absent: rash Course Vital Signs 06/04/17 20:44 Temperature 97.8 F Pulse Rate 69 Respiratory 18 Rate Blood Pressure 105/60 O2 Sat by Pulse 91 L Oximetry - Reevaluation(s) Reevaluation #1: 06/04/17 23:00 Patient with no real significant including improvement in mental state Medical Decision Making - Medical Decision Making 58 male the ER for evaluation of chest pain altered mental state, severe hyponatremia. Patient be admitted for continued management and resuscitation of low sodium. Patient be admitted ICU secondary low sodium - Lab Data Result diagrams: 06/04/17 21:00 06/04/17 21:00 Lab Results 06/04/17 06/04/17 06/04/17 Range/Units 21:00 21:00 21:00 WBC 10.3 (3.8-10.6) k/uL RBC 4.18 L (4.30-5.90) m/uL Hgb 12.7 L (13.0-17.5) gm/dL Hct 35.1 L (39.0-53.0) % MCV 84.0 (80.0-100.0) fL MCH 30.4 (25.0-35.0) pg MCHC 36.2 (31.0-37.0) g/dL RDW 12.1 (11.5-15.5) % Plt Count 315 (150-450) k/uL Neutrophils % 62 % Lymphocytes % 23 % Monocytes % 10 % Eosinophils % 3 % Basophils % 0 % Neutrophils # 6.4 (1.3-7.7) k/uL Lymphocytes # 2.4 (1.0-4.8) k/uL Monocytes # 1.1 H (0-1.0) k/uL Eosinophils # 0.3 (0-0.7) k/uL Basophils # 0.0 (0-0.2) k/uL PT (9.0-12.0) sec INR (<1.2) APTT (22.0-30.0) sec D-Dimer (<0.60) mg/L FEU Sodium 112 L* (137-145) mmol/L Potassium 3.6 (3.5-5.1) mmol/L Chloride 81 L (98-107) mmol/L Carbon Dioxide 19 L (22-30) mmol/L Anion Gap 12 mmol/L BUN 4 L (9-20) mg/dL Creatinine 0.56 L (0.66-1.25) mg/dL Est GFR (CKD-EPI)AfAm >90 (>60 ml/min/1.73 sqM) Est GFR (CKD-EPI)NonAf >90 (>60 ml/min/1.73 sqM) Glucose 124 H (74-99) mg/dL POC Glucose (mg/dL) (75-99) mg/dL POC Glu Packing Room Supervisor ID Calcium 8.7 (8.4-10.2) mg/dL Magnesium 1.4 L (1.6-2.3) mg/dL Total Bilirubin 0.5 (0.2-1.3) mg/dL AST 16 L (17-59) U/L ALT 27 (21-72) U/L Alkaline Phosphatase 90 (38-126) U/L Total Creatine Kinase 134 (55-170) U/L CK-MB (CK-2) 2.8 H* (0.0-2.4) ng/mL CK-MB (CK-2) Rel Index 2.1 Troponin I <0.012 (0.000-0.034) ng/mL Total Protein 6.7 (6.3-8.2) g/dL Albumin 4.0 (3.5-5.0) g/dL 06/04/17 06/04/17 Range/Units 21:00 21:28 WBC (3.8-10.6) k/uL RBC (4.30-5.90) m/uL Hgb (13.0-17.5) gm/dL Hct (39.0-53.0) % MCV (80.0-100.0) fL MCH (25.0-35.0) pg MCHC (31.0-37.0) g/dL RDW (11.5-15.5) % Plt Count (150-450) k/uL Neutrophils % % Lymphocytes % % Monocytes % % Eosinophils % % Basophils % % Neutrophils # (1.3-7.7) k/uL Lymphocytes # (1.0-4.8) k/uL Monocytes # (0-1.0) k/uL Eosinophils # (0-0.7) k/uL Basophils # (0-0.2) k/uL PT 10.4 (9.0-12.0) sec INR 1.1 (<1.2) APTT 25.2 (22.0-30.0) sec D-Dimer 0.43 (<0.60) mg/L FEU Sodium (137-145) mmol/L Potassium (3.5-5.1) mmol/L Chloride (98-107) mmol/L Carbon Dioxide (22-30) mmol/L Anion Gap mmol/L BUN (9-20) mg/dL Creatinine (0.66-1.25) mg/dL Est GFR (CKD-EPI)AfAm (>60 ml/min/1.73 sqM) Est GFR (CKD-EPI)NonAf (>60 ml/min/1.73 sqM) Glucose (74-99) mg/dL POC Glucose (mg/dL) 127 H (75-99) mg/dL POC Glu Packing Room Supervisor ID [place], Walter Calcium (8.4-10.2) mg/dL Magnesium (1.6-2.3) mg/dL Total Bilirubin (0.2-1.3) mg/dL AST (17-59) U/L ALT (21-72) U/L Alkaline Phosphatase (38-126) U/L Total Creatine Kinase (55-170) U/L CK-MB (CK-2) (0.0-2.4) ng/mL CK-MB (CK-2) Rel Index Troponin I (0.000-0.034) ng/mL Total Protein (6.3-8.2) g/dL Albumin (3.5-5.0) g/dL - Radiology Data Radiology results: report reviewed (CT brain is negative chest x-ray is negative ), image reviewed Disposition Clinical Impression: Hyponatremia, CAD (coronary artery disease), Chest pain, Altered mental state Disposition: ADMITTED IP TO THIS [facility] Condition: Serious Referrals: Garrison Yuen MD [Primary Care Provider] - 1-2 days
[2017-06-04 23:57] LABS: Glucose,Whole Blood 110 mg/dL (75-99)
[2017-06-05] MEDS ORDERED: hydrALAZINE HCL 20 MG/ML 1 ML VIAL IVP PRN (00:30)
[2017-06-05] MEDS ORDERED: ACETAMINOPHEN TAB 325 MG TAB PO PRN (00:30)
[2017-06-05] MEDS ORDERED: ONDANSETRON 4 MG/2 ML VIAL IVP STA (00:54)
[2017-06-05] MEDS: HYDROcodone/APAP 5-325MG 1 EACH TAB PO PRN ×2 (01:14→06:47)
[2017-06-05 02:03] LABS: Creatine Kinase 138 U/L (55-170)
[2017-06-05 02:07] LABS: Sodium 115 mmol/L (137-145)
[2017-06-05 02:17] LABS: Troponin I <0.012 ng/mL (0.000-0.034)
[2017-06-05 02:33] LABS: Creatine Kinase MB 2.6 ng/mL (0.0-2.4)
[2017-06-05 02:41] LABS: Cholesterol 139 mg/dL (<200); HDL Cholesterol 55 mg/dL (40-60); LDL Cholesterol,Calculated 67 mg/dL (0-99); Triglycerides 83 mg/dL (<150)
[2017-06-05] MEDS: METOPROLOL TARTRATE 25 MG TAB PO SCH ×3 (02:43→20:27)
[2017-06-05] MEDS ORDERED: METOCLOPRAMIDE 5 MG/ML 2 ML VIAL IVP PRN (02:54)
[2017-06-05] MEDS ORDERED: ONDANSETRON 4 MG/2 ML VIAL IVP PRN (02:54)
[2017-06-05] MEDS: BUTALB/APAP/CAFF 50-325-40MG TAB PO PRN (03:06)
[2017-06-05 05:36] LABS: HCT 33.9 % (39.0-53.0); HGB 12.7 gm/dL (13.0-17.5); Hyperchromasia Slight; MCHC 37.3 g/dL (31.0-37.0); MCV 83.2 fL (80.0-100.0); Mean Platelet Volume 6.2; Platelet Count 285 k/uL (150-450); RBC 4.08 m/uL (4.30-5.90); RDW 12.2 % (11.5-15.5); WBC 13.2 k/uL (3.8-10.6)
[2017-06-05 05:52] LABS: Anion Gap 13 mmol/L; Blood Urea Nitrogen 4 mg/dL (9-20); Calcium 8.4 mg/dL (8.4-10.2); Carbon Dioxide 17 mmol/L (22-30); Chloride 85 mmol/L (98-107); Glucose 107 mg/dL (74-99); Potassium 3.8 mmol/L (3.5-5.1)
[2017-06-05 06:04] LABS: Sodium 115 mmol/L (137-145)
[2017-06-05] MEDS ORDERED: POTASSIUM CHLORIDE 20 MEQ in WATER FOR INJECTION 1 100ML.BAG IVPB ONE (07:00)
[2017-06-05] MEDS ORDERED: ASPIRIN 325 MG TAB PO SCH (09:00)
[2017-06-05] MEDS ORDERED: PANTOPRAZOLE 40 MG/10 ML VIAL IVP SCH (09:15)
[2017-06-05] MEDS: CARISOPRODOL 350 MG TAB PO PRN ×2 (09:30→17:28)
--- NOTE | 2017-06-05 10:08 | P.NPCON ---
History of Present Illness - Reason for Consult hyponatremia - History of Present Illness Reason for consultation: Hyponatremia History of present illness: Patient is a 66-year-old male seen in renal consultation for hyponatremia. Sodium level was 112 on admission last night at 9 PM. He did receive a normal saline bolus and is currently maintained on normal saline at 100 mL an hour. Sodium level this morning at 5 AM was 115. Patient presented to the hospital with altered mental status. He's been having headaches as well. His brain CT revealed no acute process. He does admit to episodes of vomiting the last few days along with loose bowel movements. He is also having right upper quadrant pain. He had cholecystectomy in August 2016. His oral intake has been poor. He admits to drinking juices and water and hasn't really been eating much. I don' t see any diuretics and his home medications. He was also having chest pain on admission which is improved. No evidence of hypotension. Vital signs are stable. General: The patient appeared well nourished and normally developed. HEENT: Head exam is unremarkable. Neck is without jugular venous distension. LUNGS: Lungs are clear to auscultation and percussion. Breath sounds decreased. HEART: Rate and Rhythm are regular. First and second heart sounds normal. No murmurs, rubs or gallops. ABDOMEN: Abdominal exam reveals normal bowel sounds. Non-tender and non- distended. No evidence of peritonitis. EXTREMITITES: No clubbing, cyanosis, or edema. Past Medical History Past Medical History: Coronary Artery Disease (CAD), Chest Pain / Angina, Eye Disorder, GERD/Reflux, Hyperlipidemia, Hypertension, Myocardial Infarction ([place]) , Osteoarthritis (OA) Additional Past Medical History / Comment(s): SVT with ablation, gastric ulcers , chronic duodenal stricture, bilateral glaucoma, sinusitis, migraines, anemia, esophagitis,hiatal hernia, chronic back pain, past fx ribs/sternum Last Myocardial Infarction Date:: 1999 History of Any Multi-Drug Resistant Organisms: None Reported Past Surgical History: Cardiac Ablation, Cholecystectomy, Heart Catheterization With Stent Additional Past Surgical History / Comment(s): sinus surgery, cataracts bilaterally with lens implants, EGDs/colonoscopies, Past Anesthesia/Blood Transfusion Reactions: No Reported Reaction Additional Past Anesthesia/Blood Transfusion Reaction / Comment(s): Pt has had past multiple transfusions without reaction. Date of Last Stent Placement:: 1999 Past Psychological History: No Psychological Hx Reported Additional Psychological History / Comment(s): Pt resides with his spouse. 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 He is independent. Smoking Status: Former smoker Past Alcohol Use History: None Reported Additional Past Alcohol Use History / Comment(s): Pt states he started smoking in 1993 and quit in 1999 Past Drug Use History: None Reported - Past Family History Father Additional Family Medical History / Comment(s): Father at the age of 68yrs from a ruptured aortic aneurysm. Mother Family Medical History: Hyperlipidemia, Hypertension Additional Family Medical History / Comment(s): Mother lived into her 80's. Medications and Allergies Home Medications Medication Instructions Recorded Confirmed Type ALPRAZolam [Xanax] 0.25 mg PO TID PRN 07/12/13 06/04/17 History Carisoprodol [Soma] 350 mg PO TID PRN 07/12/13 06/04/17 History Metoprolol Tartrate [Lopressor] 25 mg PO BID 07/12/13 06/04/17 History Simvastatin [Zocor] 40 mg PO HS 07/12/13 06/04/17 History Temazepam [Restoril] 30 mg PO HS PRN 07/12/13 06/04/17 History Amitriptyline HCl 10 mg PO HS 01/26/16 06/04/17 History Nitroglycerin Sl Tabs [Nitrostat] 0.4 mg SUBLINGUAL Q5M PRN 01/28/16 06/04/17 History Brimonidine Tartrate [Alphagan P 1 drops BOTH EYES BID 02/20/16 06/04/17 History 0.2% Ophth Soln] Buta/APAP/Caf/Cod 24-322-36-30 1 cap PO Q8H PRN 02/20/16 06/04/17 History [Fioricet w/Cod 63-836-40-30MG] Latanoprost [Xalatan 0.005%] 1 drop BOTH EYES HS 02/20/16 06/04/17 History Ondansetron Odt [Zofran ODT] 4 mg PO Q8HR PRN #5 tab 02/21/16 06/04/17 Rx Pantoprazole Sodium 40 mg PO BID 06/26/16 06/04/17 History Metoclopramide [Reglan] 5 mg PO Q6H PRN 08/24/16 06/04/17 History Quinapril HCl [Accupril] 10 mg PO BID 08/24/16 06/04/17 History Aspirin EC [Ecotrin Low Dose] 81 mg PO DAILY 06/04/17 06/04/17 History Dicyclomine [Bentyl] 10 mg PO TID PRN 06/04/17 06/04/17 History Allergies Allergy/AdvReac Type Severity Reaction Status Date / Time atorvastatin [From Lipitor] AdvReac Unknown Verified 06/04/17 21:13 Physical Exam Vitals: Vital Signs Temp Pulse Resp BP BP Pulse Ox 06/05/17 09:30 67 16 142/73 99 06/05/17 09:00 69 15 155/80 98 06/05/17 08:30 70 11 L 168/78 98 06/05/17 08:00 97.8 F 75 16 145/74 96 06/05/17 07:30 68 20 139/75 97 06/05/17 07:00 72 15 125/68 99 06/05/17 06:30 79 23 153/71 98 06/05/17 06:00 81 19 139/79 96 06/05/17 05:30 63 19 149/72 98 06/05/17 05:00 98 24 153/79 97 06/05/17 04:30 71 24 146/78 98 06/05/17 04:00 68 18 138/73 99 06/05/17 03:30 68 15 159/75 97 06/05/17 03:00 64 19 141/90 97 06/05/17 02:30 83 21 147/83 98 06/05/17 02:00 66 15 154/89 100 06/05/17 01:30 70 12 152/75 99 06/05/17 01:00 63 16 148/78 98 06/05/17 00:30 63 20 156/85 99 06/05/17 00:00 63 20 156/85 98 06/04/17 23:55 98.1 F 67 20 156/85 98 06/04/17 23:20 98.9 F 62 18 150/84 100 06/04/17 23:14 98.1 F 16 156/85 99 06/04/17 22:00 60 18 147/79 100 06/04/17 21:46 60 18 147/82 100 06/04/17 20:46 64 18 139/82 99 06/04/17 20:44 97.8 F 69 18 105/60 91 L Intake and Output 06/04/17 06/05/17 06/05/17 22:59 06:59 14:59 Intake Total 700 400 Output Total 580 450 Balance 120 -50 Intake: IV 400 0.9 NACL 400 Intake, IV Titration 700 Amount Sodium Chloride 0.9% 1, 700 000 ml @ 100 mls/hr IV . Q10H STA Rx#:[id number] Output: Urine 580 450 Other: Voiding Method Urinal Urinal # Voids 0 Weight 83.915 kg 88.4 kg Results - Lab Results Most recent lab results Calcium 8.4 mg/dL (8.4-10.2) 06/05/17 05:14 Magnesium 1.4 mg/dL (1.6-2.3) L 06/04/17 21:00 06/05/17 05:14 06/05/17 05:14 Assessment and Plan Plan: Assessment: #1. Hypovolemic hyponatremia which did improve with normal saline. Sodium level was 112 and up to 1:15 this morning. Urine sodium noted to be 137 but was drawn while the patient was on normal saline. Urine osmolality 438. There is also component of SIADH from the severe pain. #2. Benign hypertension. Controlled. #3. History of cholecystectomy. #4. History of migraine headaches. #5. Non-anion gap metabolic acidosis related to GI losses. Plan: Continue with normal saline at 100 mL an hour for now. Repeat sodium level is pending. If no improvement, I will start 3% saline. Goal rate of correction 6-8 mEq per 24 hours. Check TSH and uric acid level. Pain control. Add oral sodium bicarbonate. Thank you for the consultation. I will continue to follow the patient with you during his hospital stay.
[2017-06-05 10:29] LABS: Creatine Kinase 191 U/L (55-170)
[2017-06-05 10:39] LABS: Uric Acid 2.3 mg/dL (3.5-8.5)
[2017-06-05 10:41] LABS: Troponin I <0.012 ng/mL (0.000-0.034)
[2017-06-05 10:51] LABS: Creatine Kinase MB 3.7 ng/mL (0.0-2.4)
[2017-06-05] MEDS ORDERED: ALPRAZolam 0.25 MG TAB PO PRN (11:10)
[2017-06-05] MEDS ORDERED: ONDANSETRON ODT 4 MG TAB PO PRN (11:10)
[2017-06-05] MEDS ORDERED: CARISOPRODOL 350 MG TAB PO PRN (11:10)
[2017-06-05] MEDS ORDERED: NITROGLYCERIN SL TABS 0.4 MG TAB SUBLINGUAL PRN (11:10)
[2017-06-05] MEDS ORDERED: TEMAZEPAM 30 MG CAP PO PRN (11:10)
[2017-06-05] MEDS ORDERED: METOPROLOL TARTRATE 25 MG TAB PO SCH (11:15)
[2017-06-05] MEDS: BUTA/APAP/CAF/COD 50-325-40-30 CAP PO PRN ×2 (11:20→19:21)
[2017-06-05] MEDS: SODIUM BICARBONATE TAB 650 MG TAB PO SCH ×2 (11:22→20:27)
--- NOTE | 2017-06-05 12:01 | P.CNPUL ---
History of Present Illness Consult date: 06/05/17 Requesting physician: Simone Walters Reason for consult: other (Profound hyponatremia) Chief complaint: Altered mental status History of present illness: This is a 66-year-old white male with history of multiple medical problems including duodenal stricture, previous biopsies have been negative for malignancy. History of chronic migraine cephalgia, history of chronic and recurrent episodes of nausea and vomiting. Patient also had recurrent episodes of hyponatremia and over the last 2 years he must have had at least half dozen admissions with hyponatremia treated as SIADH related and at times hypovolemia related. This time, the patient was admitted with altered mental status, and upon evaluation in the ER his sodium was as low as 112. Again the patient has been complaining of intermittent episodes of nausea and vomiting for the last few days, and intermittent episodes of migraine cephalgia. In addition to this the patient has history of chronic right upper quadrant pain previous cholecystectomy in August of 2016, this was done by Dr. bird. Patient is not on any diuretics, he is not on any medications that can potentially cause hyponatremia. Admitted to the ICU last night, seen by nephrology on consultation, given 0.9 normal saline, his sodium corrected over the last 12 hours about 4 mEq with 0.9 normal saline only. Sodium this morning is 116. Presently the patient denies any shortness of breath, no cough no wheezing, his main complaints seem to be related to severe right upper quadrant pain, and recurrent episodes of migraine cephalgia. Intermittent episodes of nausea and vomiting, but he is not nauseated this morning. He had occasional episodes of diarrhea in the past few days. Considering this history, it is not clear whether his hyponatremia is SIADH related or hypovolemia related. The clinical history is more suggestive of hypovolemia. Patient did improve a bit with 0.9 normal saline overnight. Review of Systems 14 point review of systems were obtained, please refer to pertinent positives in HPI otherwise remaining systems are negative. Past Medical History Past Medical History: Coronary Artery Disease (CAD), Chest Pain / Angina, Eye Disorder, GERD/Reflux, Hyperlipidemia, Hypertension, Myocardial Infarction ([place]) , Osteoarthritis (OA) Additional Past Medical History / Comment(s): SVT with ablation, gastric ulcers , chronic duodenal stricture, bilateral glaucoma, sinusitis, migraines, anemia, esophagitis,hiatal hernia, chronic back pain, past fx ribs/sternum Last Myocardial Infarction Date:: 1999 History of Any Multi-Drug Resistant Organisms: None Reported Past Surgical History: Cardiac Ablation, Cholecystectomy, Heart Catheterization With Stent Additional Past Surgical History / Comment(s): sinus surgery, cataracts bilaterally with lens implants, EGDs/colonoscopies, Past Anesthesia/Blood Transfusion Reactions: No Reported Reaction Additional Past Anesthesia/Blood Transfusion Reaction / Comment(s): Pt has had past multiple transfusions without reaction. Date of Last Stent Placement:: 1999 Past Psychological History: No Psychological Hx Reported Additional Psychological History / Comment(s): Pt resides with his spouse. 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 He is independent. Smoking Status: Former smoker Past Alcohol Use History: None Reported Additional Past Alcohol Use History / Comment(s): Pt states he started smoking in 1993 and quit in 1999 Past Drug Use History: None Reported - Past Family History Father Additional Family Medical History / Comment(s): Father at the age of 68yrs from a ruptured aortic aneurysm. Mother Family Medical History: Hyperlipidemia, Hypertension Additional Family Medical History / Comment(s): Mother lived into her 80's. Medications and Allergies Home Medications Medication Instructions Recorded Confirmed Type ALPRAZolam [Xanax] 0.25 mg PO TID PRN 07/12/13 06/04/17 History Carisoprodol [Soma] 350 mg PO TID PRN 07/12/13 06/04/17 History Metoprolol Tartrate [Lopressor] 25 mg PO BID 07/12/13 06/04/17 History Simvastatin [Zocor] 40 mg PO HS 07/12/13 06/04/17 History Temazepam [Restoril] 30 mg PO HS PRN 07/12/13 06/04/17 History Amitriptyline HCl 10 mg PO HS 01/26/16 06/04/17 History Nitroglycerin Sl Tabs [Nitrostat] 0.4 mg SUBLINGUAL Q5M PRN 01/28/16 06/04/17 History Brimonidine Tartrate [Alphagan P 1 drops BOTH EYES BID 02/20/16 06/04/17 History 0.2% Ophth Soln] Buta/APAP/Caf/Cod 27-836-25-30 1 cap PO Q8H PRN 02/20/16 06/04/17 History [Fioricet w/Cod 01-608-57-30MG] Latanoprost [Xalatan 0.005%] 1 drop BOTH EYES HS 02/20/16 06/04/17 History Ondansetron Odt [Zofran ODT] 4 mg PO Q8HR PRN #5 tab 02/21/16 06/04/17 Rx Pantoprazole Sodium 40 mg PO BID 06/26/16 06/04/17 History Metoclopramide [Reglan] 5 mg PO Q6H PRN 08/24/16 06/04/17 History Quinapril HCl [Accupril] 10 mg PO BID 08/24/16 06/04/17 History Aspirin EC [Ecotrin Low Dose] 81 mg PO DAILY 06/04/17 06/04/17 History Dicyclomine [Bentyl] 10 mg PO TID PRN 06/04/17 06/04/17 History Allergies Allergy/AdvReac Type Severity Reaction Status Date / Time atorvastatin [From Lipitor] AdvReac Unknown Verified 06/04/17 21:13 Physical Exam Vitals: Vital Signs Temp Pulse Resp BP BP Pulse Ox 06/05/17 11:30 67 13 180/99 98 06/05/17 11:00 61 20 118/51 96 06/05/17 10:30 64 17 140/69 97 06/05/17 10:00 77 12 134/74 98 06/05/17 09:30 67 16 142/73 99 06/05/17 09:00 69 15 155/80 98 06/05/17 08:30 70 11 L 168/78 98 06/05/17 08:00 97.8 F 75 16 145/74 96 06/05/17 07:30 68 20 139/75 97 06/05/17 07:00 72 15 125/68 99 06/05/17 06:30 79 23 153/71 98 06/05/17 06:00 81 19 139/79 96 06/05/17 05:30 63 19 149/72 98 06/05/17 05:00 98 24 153/79 97 06/05/17 04:30 71 24 146/78 98 06/05/17 04:00 68 18 138/73 99 06/05/17 03:30 68 15 159/75 97 06/05/17 03:00 64 19 141/90 97 06/05/17 02:30 83 21 147/83 98 06/05/17 02:00 66 15 154/89 100 06/05/17 01:30 70 12 152/75 99 06/05/17 01:00 63 16 148/78 98 06/05/17 00:30 63 20 156/85 99 06/05/17 00:00 63 20 156/85 98 06/04/17 23:55 98.1 F 67 20 156/85 98 06/04/17 23:20 98.9 F 62 18 150/84 100 06/04/17 23:14 98.1 F 16 156/85 99 06/04/17 22:00 60 18 147/79 100 06/04/17 21:46 60 18 147/82 100 06/04/17 20:46 64 18 139/82 99 06/04/17 20:44 97.8 F 69 18 105/60 91 L Intake and Output 06/04/17 06/05/17 06/05/17 22:59 06:59 14:59 Intake Total 700 500 Output Total 580 700 Balance 120 -200 Intake: IV 500 0.9 NACL 500 Intake, IV Titration 700 Amount Sodium Chloride 0.9% 1, 700 000 ml @ 100 mls/hr IV . Q10H STA Rx#:[id number] Output: Urine 580 700 Other: Voiding Method Urinal Urinal # Voids 0 Weight 83.915 kg 88.4 kg Physical Exam: Revealed a 66-year-old white male in no distress. Head: Atraumatic, normocephalic. Eyes: PERRLA, EOMI, no icterus. HEENT: Moist mucous membranes are noted. [Neck is supple.] [No neck masses.] [ No thyromegaly.] [No JVD.] Chest: [Clear throughout, no crackles, no rhonchi, no wheezes.] Cardiac Exam: [Normal S1 and S2, no S3 gallop, no murmur.] Abdomen: [Soft, nontender, no megaly, no rebound, no guarding, normal bowel sounds.] Extremities: [No clubbing, no edema, no cyanosis.] Neurological Exam: [No focal neurologic deficit. Lymphatics: No lymphadenopathy. Psychiatric: Blunted affect, slightly depressed mood, normal mental status examination. Skin: Normal skin turgor. No cyanosis. And no rashes. Results - Laboratory Findings CBC and BMP: 06/05/17 05:14 06/05/17 09:26 PT/INR, D-dimer PT 10.4 sec (9.0-12.0) 06/04/17 21:00 INR 1.1 (<1.2) 06/04/17 21:00 D-Dimer 0.43 mg/L FEU (<0.60) 06/04/17 21:00 Abnormal lab findings: Abnormal Labs 06/04/17 06/04/17 06/04/17 21:00 21:00 21:00 WBC RBC 4.18 L Hgb 12.7 L Hct 35.1 L MCHC Monocytes # 1.1 H Sodium 112 L* Chloride 81 L Carbon Dioxide 19 L BUN 4 L Creatinine 0.56 L Glucose 124 H POC Glucose (mg/dL) Osmolality Uric Acid Magnesium 1.4 L AST 16 L Total Creatine Kinase CK-MB (CK-2) 2.8 H* Ur Random Sodium 06/04/17 06/04/17 06/05/17 21:28 23:55 01:23 WBC RBC Hgb Hct MCHC Monocytes # Sodium Chloride Carbon Dioxide BUN Creatinine Glucose POC Glucose (mg/dL) 127 H 110 H Osmolality Uric Acid Magnesium AST Total Creatine Kinase CK-MB (CK-2) 2.6 H* Ur Random Sodium 06/05/17 06/05/17 06/05/17 01:23 01:30 05:14 WBC 13.2 H RBC 4.08 L Hgb 12.7 L Hct 33.9 L MCHC 37.3 H Monocytes # Sodium 115 L* Chloride Carbon Dioxide BUN Creatinine Glucose POC Glucose (mg/dL) Osmolality 232 L* Uric Acid Magnesium AST Total Creatine Kinase CK-MB (CK-2) Ur Random Sodium 137 H 06/05/17 06/05/17 06/05/17 05:14 09:26 09:26 WBC RBC Hgb Hct MCHC Monocytes # Sodium 115 L* 116 L* Chloride 85 L Carbon Dioxide 17 L BUN 4 L Creatinine 0.50 L Glucose 107 H POC Glucose (mg/dL) Osmolality Uric Acid Magnesium AST Total Creatine Kinase 191 H CK-MB (CK-2) 3.7 H* Ur Random Sodium 06/05/17 09:26 WBC RBC Hgb Hct MCHC Monocytes # Sodium Chloride Carbon Dioxide BUN Creatinine Glucose POC Glucose (mg/dL) Osmolality Uric Acid 2.3 L Magnesium AST Total Creatine Kinase CK-MB (CK-2) Ur Random Sodium - Diagnostic Findings Chest x-ray: image reviewed (No active pulmonary process was appreciated on the chest x-ray.) Assessment and Plan Assessment: Impression: 1 acute, recurrent hyperosmolar hyponatremia with history of chronic recurrent episodes of nausea and vomiting and intermittent diarrhea. Considering the patient has low serum osmolality, elevated urine sodium and elevated urine osmolality, possibility of SIADH is not entirely ruled out. I feel is probably a combination of both. 2 history of chronic nausea and vomiting secondary to duodenal strictures patient may require to be evaluated again by Dr. bird or Dr. Hickman for EGD 3 history of chronic migraine cephalgia. 4 history of benign essential hypertension 5 acute non-anion gap metabolic acidosis. Recommendation: Continue present treatment plan, sodium is slowly correcting with 0.9 normal saline, consider stopping amitriptyline since it is well-known that amitriptyline could be causing hyponatremia/SIADH. We'll continue to follow. Time with Patient: Greater than 30
[2017-06-05] MEDS: BRIMONIDINE TARTRATE 0.2% DROPS 5 ML BTL BOTH EYES SCH ×2 (12:44→20:26)
[2017-06-05] MEDS: METOCLOPRAMIDE 5 MG TAB PO PRN ×2 (12:45→19:50)
[2017-06-05] MEDS: LISINOPRIL 10 MG TAB PO SCH ×2 (12:45→20:26)
[2017-06-05] MEDS ORDERED: SODIUM CHLORIDE 3%(HYPERTONIC) 500 ML IV SCH (15:30)
[2017-06-05] MEDS: PANTOPRAZOLE 40 MG TABLET PO SCH (17:28)
[2017-06-05] MEDS: SODIUM CHLORIDE TAB 1 GM TAB PO SCH ×2 (17:53→21:22)
[2017-06-05] MEDS: ENOXAPARIN 40 MG/0.4 ML SYRINGE SQ SCH (17:53)
--- NOTE | 2017-06-05 17:55 | P.CNNES ---
History of Present Illness Consult date: 06/05/17 Reason for Consult: Patient admitted with severe hyponatremia and migrane headaches. History of Present Illness: This patient is a 66-year-old right-handed white male who was brought into the emergency room with symptoms of altered mental status and generalized weakness. He was seen in the ER by Dr. Alonso. He was sent for a computed tomography scan of the brain which was reported negative for any acute process. He was found to have evidence of severe hyponatremia in the emergency room with the initial serum sodium of 112. He was started on normal saline and admitted to the intensive care unit. His repeat serum sodium level this afternoon is 114. Neurology was consulted as he has a history of migraine headaches. Apparently on admission according to his he was also very confused and disoriented. This is felt to be secondary to his severe hyponatremia. The patient is now been placed on 3% normal saline for further management of the severity of the hyponatremia. We've recommended that this reduction be done very slowly to avoid any secondary complications. The patient is stating that his headaches are mostly in the bifrontal area. He has a history of sinus surgery in the past which did help his headaches previously. He is currently using a combination of Fioricet and Soma for treatment of his more typical migraine headaches. Apparently he has received 1 or 2 doses here which has not been of much help. The patient does have some degree of neck pain and discomfort. 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 He has had multiple rib fractures over the years. He denies any recent neck injury or motor vehicle accident causing head injury. He does experience some neck discomfort and on examination does have evidence of bilateral occipital tenderness to palpation. He rates the intensity of pain is 8/10 in intensity which would be consistent with an acute occipital neuritis. The patient's remaining neurological examination today and ice he was nonfocal. He is being treated for combination of hyponatremia and possibility of SIADH. Due to his headache symptoms neurology is now been consulted for further evaluation and recommendations. Review of Systems Constitutional: Denies chills, Denies fever Eyes: denies blurred vision, denies pain Ears, nose, mouth and throat: Denies headache, Denies sore throat Cardiovascular: Denies chest pain, Denies shortness of breath Respiratory: Denies cough Gastrointestinal: Denies abdominal pain, Denies diarrhea, Denies nausea, Denies vomiting Musculoskeletal: Denies myalgias Integumentary: Denies pruritus, Denies rash Neurological: Reports headaches, Reports paresthesias, Denies numbness, Denies weakness Psychiatric: Denies anxiety, Denies depression Endocrine: Denies fatigue, Denies weight change Past Medical History Past Medical History: Coronary Artery Disease (CAD), Chest Pain / Angina, Eye Disorder, GERD/Reflux, Hyperlipidemia, Hypertension, Myocardial Infarction ([place]) , Osteoarthritis (OA) Additional Past Medical History / Comment(s): SVT with ablation, gastric ulcers , chronic duodenal stricture, bilateral glaucoma, sinusitis, migraines, anemia, esophagitis,hiatal hernia, chronic back pain, past fx ribs/sternum Last Myocardial Infarction Date:: 1999 History of Any Multi-Drug Resistant Organisms: None Reported Past Surgical History: Cardiac Ablation, Cholecystectomy, Heart Catheterization With Stent Additional Past Surgical History / Comment(s): sinus surgery, cataracts bilaterally with lens implants, EGDs/colonoscopies, Past Anesthesia/Blood Transfusion Reactions: No Reported Reaction Additional Past Anesthesia/Blood Transfusion Reaction / Comment(s): Pt has had past multiple transfusions without reaction. Date of Last Stent Placement:: 1999 Past Psychological History: No Psychological Hx Reported Additional Psychological History / Comment(s): Pt resides with his spouse. 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 He is independent. Smoking Status: Former smoker Past Alcohol Use History: None Reported Additional Past Alcohol Use History / Comment(s): Pt states he started smoking in 1993 and quit in 1999 Past Drug Use History: None Reported - Past Family History Father Additional Family Medical History / Comment(s): Father at the age of 68yrs from a ruptured aortic aneurysm. Mother Family Medical History: Hyperlipidemia, Hypertension Additional Family Medical History / Comment(s): Mother lived into her 80's. Medications and Allergies Home Medications Medication Instructions Recorded Confirmed Type ALPRAZolam [Xanax] 0.25 mg PO TID PRN 07/12/13 06/04/17 History Carisoprodol [Soma] 350 mg PO TID PRN 07/12/13 06/04/17 History Metoprolol Tartrate [Lopressor] 25 mg PO BID 07/12/13 06/04/17 History Simvastatin [Zocor] 40 mg PO HS 07/12/13 06/04/17 History Temazepam [Restoril] 30 mg PO HS PRN 07/12/13 06/04/17 History Amitriptyline HCl 10 mg PO HS 01/26/16 06/04/17 History Nitroglycerin Sl Tabs [Nitrostat] 0.4 mg SUBLINGUAL Q5M PRN 01/28/16 06/04/17 History Brimonidine Tartrate [Alphagan P 1 drops BOTH EYES BID 02/20/16 06/04/17 History 0.2% Ophth Soln] Buta/APAP/Caf/Cod 95-261-47-30 1 cap PO Q8H PRN 02/20/16 06/04/17 History [Fioricet w/Cod 18-684-70-30MG] Latanoprost [Xalatan 0.005%] 1 drop BOTH EYES HS 02/20/16 06/04/17 History Ondansetron Odt [Zofran ODT] 4 mg PO Q8HR PRN #5 tab 02/21/16 06/04/17 Rx Pantoprazole Sodium 40 mg PO BID 06/26/16 06/04/17 History Metoclopramide [Reglan] 5 mg PO Q6H PRN 08/24/16 06/04/17 History Quinapril HCl [Accupril] 10 mg PO BID 08/24/16 06/04/17 History Aspirin EC [Ecotrin Low Dose] 81 mg PO DAILY 06/04/17 06/04/17 History Dicyclomine [Bentyl] 10 mg PO TID PRN 06/04/17 06/04/17 History Allergies Allergy/AdvReac Type Severity Reaction Status Date / Time atorvastatin [From Lipitor] AdvReac Unknown Verified 06/04/17 21:13 Physical Examination - Vital Signs Vital Signs: Vital Signs Temp Pulse Resp BP BP Pulse Ox 06/05/17 17:00 76 13 118/64 98 06/05/17 16:30 67 16 124/59 98 06/05/17 16:00 98.0 F 63 23 126/59 97 06/05/17 15:30 61 11 L 120/63 96 06/05/17 15:00 58 L 22 116/62 98 06/05/17 14:30 59 L 19 109/63 97 04/06/18 14:00 97 20 104/58 98 0618 13:30 57 L 16 133/71 98 18 13:00 66 20 146/77 99 0618 12:30 67 16 123/67 99 18 12:00 98.7 F 62 22 125/71 97 18 11:30 67 13 180/99 98 0618 11:00 61 20 118/51 96 0618 10:30 64 17 140/69 97 0618 10:00 77 12 134/74 98 0618 09:30 67 16 142/73 99 06 09:00 69 15 155/80 98 06 08:30 70 11 L 168/78 98 06/05/17 08:00 97.8 F 75 16 145/74 96 18 07:30 68 20 139/75 97 0618 07:00 72 15 125/68 99 06/05/17 06:30 79 23 153/71 98 06/05/17 06:00 81 19 139/79 96 0618 05:30 63 19 149/72 98 0618 05:00 98 24 153/79 97 18 04:30 71 24 146/78 98 06 04:00 68 18 138/73 99 0618 03:30 68 15 159/75 97 18 03:00 64 19 141/90 97 0618 02:30 83 21 147/83 98 0618 02:00 66 15 154/89 100 0618 01:30 70 12 152/75 99 0618 01:00 63 16 148/78 98 0618 00:30 63 20 156/85 99 0618 00:00 63 20 156/85 98 05/18 23:55 98.1 F 67 20 156/85 98 04/05/18 23:20 98.9 F 62 18 150/84 100 04/05/18 23:14 98.1 F 16 156/85 99 04/05/18 22:00 60 18 147/79 100 04/05/18 21:46 60 18 147/82 100 05/18 20:46 64 18 139/82 99 06/04/17 20:44 97.8 F 69 18 105/60 91 L Intake and Output 06/05/17 06/05/17 06/05/17 06:59 14:59 22:59 Intake Total 700 900 100 Output Total 580 850 350 Balance 120 50 -250 Intake: IV 900 100 0.9 NACL 800 3% sodium infusion 100 potassium chloride 100 Intake, IV Titration 700 Amount Sodium Chloride 0.9% 1, 700 000 ml @ 100 mls/hr IV . Q10H STA Rx#:[id number] Output: Urine 580 850 350 Other: Voiding Method Urinal Urinal Urinal # Voids 0 Weight 88.4 kg - Constitutional General appearance: average body habitus, cooperative - EENT EENT: PERRL, mucous membranes moist - Respiratory Respiratory: lungs clear, normal breath sounds - Cardiovascular Cardiovascular: regular rate, normal S1, normal S2 Extremities: no peripheral edema bilaterally - Gastrointestinal Gastrointestinal: normoactive bowel sounds - Integumentary Integumentary: normal - Neurologic Cranial nerve examination: PERRL, EOMI, VFF, V1/V2/V3 grossly intact, face symmetric, tongue midline, intact gag reflex, intact corneal reflex, normal palatal elevation Speech examination: intact Sensorimotor examination: intact Motor examination - right side: 4/5: biceps, triceps, wrist flexion, wrist extension, superintendent storage area, hip flexors, knee extensors, dorsiflexion, toe extension (EHL) , plantarflexion Motor examination - left side: 4/5: biceps, triceps, wrist flexion, wrist extension, superintendent storage area, hip flexors, knee extensors, dorsiflexion, toe extension (EHL) , plantarflexion Detailed sensory examination: intact Reflex and gait examination: intact Reflexes: 1+: ankle, bicep, knee, tricep - Musculoskeletal Musculoskeletal: no pain - Psychiatric Psychiatric: mood/affect appropriate, cooperative Results - Laboratory Findings CBC and BMP: 06/05/17 05:14 06/05/17 13:28 Abnormal Lab Findings: Abnormal Labs 06/04/17 06/04/17 06/04/17 21:00 21:00 21:00 WBC RBC 4.18 L Hgb 12.7 L Hct 35.1 L MCHC Monocytes # 1.1 H Sodium 112 L* Chloride 81 L Carbon Dioxide 19 L BUN 4 L Creatinine 0.56 L Glucose 124 H POC Glucose (mg/dL) Osmolality Uric Acid Magnesium 1.4 L AST 16 L Total Creatine Kinase CK-MB (CK-2) 2.8 H* Ur Random Sodium 06/04/17 06/04/17 06/05/17 21:28 23:55 01:23 WBC RBC Hgb Hct MCHC Monocytes # Sodium Chloride Carbon Dioxide BUN Creatinine Glucose POC Glucose (mg/dL) 127 H 110 H Osmolality Uric Acid Magnesium AST Total Creatine Kinase CK-MB (CK-2) 2.6 H* Ur Random Sodium 06/05/17 06/05/17 06/05/17 01:23 01:30 05:14 WBC 13.2 H RBC 4.08 L Hgb 12.7 L Hct 33.9 L MCHC 37.3 H Monocytes # Sodium 115 L* Chloride Carbon Dioxide BUN Creatinine Glucose POC Glucose (mg/dL) Osmolality 232 L* Uric Acid Magnesium AST Total Creatine Kinase CK-MB (CK-2) Ur Random Sodium 137 H 06/05/17 06/05/17 06/05/17 05:14 09:26 09:26 WBC RBC Hgb Hct MCHC Monocytes # Sodium 115 L* 116 L* Chloride 85 L Carbon Dioxide 17 L BUN 4 L Creatinine 0.50 L Glucose 107 H POC Glucose (mg/dL) Osmolality Uric Acid Magnesium AST Total Creatine Kinase 191 H CK-MB (CK-2) 3.7 H* Ur Random Sodium 06/05/17 06/05/17 09:26 13:28 WBC RBC Hgb Hct MCHC Monocytes # Sodium 114 L* Chloride Carbon Dioxide BUN Creatinine Glucose POC Glucose (mg/dL) Osmolality Uric Acid 2.3 L Magnesium AST Total Creatine Kinase CK-MB (CK-2) Ur Random Sodium Assessment and Plan (1) Hyponatremia Current Visit: No Status: Acute Code(s): E87.1 - HYPO-OSMOLALITY AND HYPONATREMIA SNOMED Code(s): 52772717 (2) Migraine headache Current Visit: Yes Status: Acute Code(s): G43.909 - MIGRAINE, UNSP, NOT INTRACTABLE, WITHOUT STATUS MIGRAINOSUS SNOMED Code(s): 58442566 (3) Occipital neuritis Current Visit: Yes Status: Acute Code(s): M54.81 - OCCIPITAL NEURALGIA SNOMED Code(s): 97616237 (4) Acute encephalopathy Current Visit: Yes Status: Acute Code(s): G93.40 - ENCEPHALOPATHY, UNSPECIFIED SNOMED Code(s): 36402529 Plan: This patient is a 66-year-old male who was admitted hospital with symptoms of altered mental status and generalized weakness. He was brought into the emergency room yesterday and was found to have evidence of severe hyponatremia. His serum sodium level was 112. He has a history of hypovolemic hyponatremia in the past and was recently admitted in April with similar symptoms. The patient was started on normal saline but his serum sodium level this afternoon still is low at 114. He is now been switched over to 3% normal saline. Patient apparently has a history of migraine headaches which she averages 4 to 5 episodes in a year. Since admission he has been complaining of recurrent headache symptoms. His neurological examination was nonfocal however he does show evidence of bilateral occipital neuritis. We have recommended patient undergo an occipital nerve block procedure for treatment of this condition. His intensity of pain on examination is 8/10 bilaterally. We have recommended he have an occipital nerve block procedure performed by anesthesia. He may apply moist heat to the head and neck region which may also be beneficial while he is awaiting this procedure to be done. His remaining neurological examination is nonfocal. We have discussed these findings in detail with the patient and he is in full agreement with our treatment plan. We will continue close neurological follow-up with the patient during this admission. Time with Patient: Greater than 30
--- NOTE | 2017-06-05 18:14 | HP ---
HISTORY AND PHYSICAL DATE OF ADMISSION: 06/04/2017 PRESENTING COMPLAINT: Not feeling well. HISTORY OF PRESENTING COMPLAINT: This is a very pleasant 66-year-old patient who follows with Dr. Yuen. Chronic stable medical conditions include coronary artery disease with stent, GERD, hypercholesteremia, essential hypertension, hiatal hernia and duodenal stricture per EGD. The duodenal stricture is being followed by Dr. Marla Subramanian. Patient presents with not feeling well, tired, rundown, decreased appetite, some nonspecific abdominal pain localized to the upper abdomen. No fever. No chills. Does have bowel movements. When patient presented to the ER, patient was found to have sodium down to 112 and patient was then admitted to the ICU. Patient has not been eating much at home, has been drinking quite a bit of water. REVIEW OF SYSTEMS: CONSTITUTIONAL: Weak and tired. HEENT: None. RESPIRATORY: None. CARDIOVASCULAR: None. GASTROINTESTINAL: As above. GENITOURINARY: None. MUSCULOSKELETAL: None. DERMATOLOGICAL: Chronic white patches. HEMATOLOGICAL: None. LYMPHATICS: None. PSYCHIATRY: Anxious. NEUROLOGICAL: None. PAST MEDICAL HISTORY: 1. Coronary artery disease with stent. 2. GERD. 3. Hypercholesteremia. 4. Hypertension. 5. SVT ablation. 6. Gastric ulcer. 7. Duodenal stricture. 8. Hiatal hernia. 9. Chronic low back pain. 10.Migraines. 11.Esophagitis. PAST SURGICAL HISTORY: 1. Cardiac ablation. 2. Cholecystectomy. 3. Cardiac cath with stent. 4. Sinus surgery. 5. Cataract surgery. 6. EGD. 7. Colonoscopies. SOCIAL HISTORY: . 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 Does not drink. Smoked for a very short time. FAMILY HISTORY: Father from ruptured aortic aneurysm at the age of 68. Also with history of hypertension, hyperlipidemia. HOME MEDICATIONS: 1. Restoril 30 mg at bedtime p.r.n. 2. Zocor 40 mg at bedtime. 3. Accupril 10 mg b.i.d. 4. Protonix 40 mg b.i.d. 5. Zofran 4 mg q.8 p.r.n. 6. Nitrostat 0.4 sublingually q.5 p.r.n. 7. Lopressor 25 p.o. b.i.d. 8. Reglan 5 mg q.6 p.r.n. 9. Xalatan 0.005% one drop to both eyes at bedtime. 10.Bentyl 10 mg p.o. t.i.d. p.r.n. 11.Soma 350 mg p.o. t.i.d. p.r.n. 12.Fioricet with codeine 1 capsule p.o. q.8 p.r.n. 13.Alphagan 0.2% one drop to both eyes b.i.d. 14.Aspirin 81 mg p.o. daily. 15.Amitriptyline 10 mg at bedtime. 16.Xanax 0.25 p.o. t.i.d. p.r.n. ALLERGIES: LIPITOR. PHYSICAL EXAMINATION: VITAL SIGNS ON PRESENTATION: Temperature 97.8, pulse 69, respiration 18, blood pressure 105/60, pulse ox 91% on room air. GENERAL APPEARANCE: Average build. Lying in bed, tired-appearing. EYES: Pupils equal. Conjunctivae normal. HEENT: External appearance of nose and ears normal. Oral cavity normal. NECK: JVD not raised. Mass not palpable. RESPIRATORY: Effort normal. Lungs are clear. CARDIOVASCULAR: First and second sounds normal. No edema. ABDOMEN: Soft. Minimal upper abdominal tenderness. No guarding or rigidity. Liver and spleen not palpable. LYMPHATIC: No lymph node palpable in neck or axillae. PSYCHIATRY: Alert and oriented x3. Mood and affect slightly anxious-appearing. NEUROLOGICAL: Pupils equal. Cranial nerves grossly intact. Power and sensation grossly intact. DERMATOLOGICAL: Macular patches which are white. INVESTIGATIONS: White count 10.3, hemoglobin 12.7, sodium 112, potassium 3.6, BUN 4, creatinine 0.56, magnesium 1.4. EKG normal sinus rhythm. ASSESSMENT: 1. Severe hyponatremia; expect hypo-osmolar from excessive fluid intake in addition to decreased solute intake. 2. Coronary artery disease with prior history of stent. 3. Gastroesophageal reflux disease. 4. Chronic hypercholesteremia. 5. Essential hypertension. 6. Chronic duodenal stricture, being followed by Dr. Francia Subramanian. 7. Chronic low back pain from osteoarthritis. 8. [id number] metabolic acidosis. PLAN: Patient admitted to the ICU. Patient did get a normal saline bolus, then getting normal saline at 100 mL/hour. Sodium bicarbonate was added for the non-anion gap metabolic acidosis. I did talk to the patient and his to restrict free fluid. The patient may have things like chicken broth or thin tomato soup, etc. with higher salt content. We will also add salt tablets. Lovenox for DVT prophylaxis. MMJOSE / MORENAN: [id number] /
[2017-06-05] MEDS ORDERED: DEXAMETHASONE SOD PHOSPHATE 10 MG/ML 1 ML VIAL IV STA (18:15)
--- NOTE | 2017-06-05 18:19 | P.PN ---
Progress Note - Text Progress Note Date: 06/05/17 Patient seen and evaluated. Family at bedside. Patient reports nausea and vomiting. At time of my evaluation, emesis consistent with saliva. Patient reports past history of cholecystectomy last year done by Dr. Marcus. This is his second episode of acute hyponatremia with delirium. He is passing flatus. Last bowel movement a day ago. Hyponatremia puts him at risk for ileus as well. Exam benign. No acute abdomen or surgical abdomen. Will get abdominal Xray. Decadron for nausea. Correct hyponatremia. May benefit from nephrology consultation for sodium imbalance.
--- NOTE | 2017-06-05 20:02 | XR ---
EXAMINATION TYPE: XR abdomen acute w cxr, 4 views DATE OF EXAM: 06/05/2017 COMPARISON: 09/24/2016 HISTORY: Pain TECHNIQUE: Supine, upright, and left side down lateral decubitus views of the abdomen are obtained. FINDINGS: Chest radiograph is negative for acute findings. There is no pneumoperitoneum. The bowel gas pattern is unremarkable as there is air throughout nondilated small and large bowel. No sizeable air fluid levels. No mass effects are seen. No unusual calcifications. IMPRESSION: NO ACUTE RADIOGRAPHIC PROCESS.
[2017-06-05] MEDS: LATANOPROST 0.005% OPHTH DROPS 2.5 ML BTL BOTH EYES SCH (20:26)
[2017-06-05] MEDS ORDERED: NON-FORMULARY DRUG (Simvastatin 40 MG) PO SCH (21:00)
[2017-06-05] MEDS ORDERED: AMITRIPTYLINE HCL 10 MG TAB PO SCH (21:00)
[2017-06-05 23:58] LABS: Appearance,Urine Clear (Clear); Bacteria,Urine Rare /hpf; Bilirubin,Urine Negative (Negative); Blood,Urine Moderate (Negative); Color,Urine Colorless; Glucose,Urine (UA) Negative (Negative); Ketones,Urine Negative (Negative); Leukocyte Esterase,Urine Negative (Negative); Nitrite,Urine Negative (Negative); PH, Urine 6.5 (5.0-8.0); Protein,Urine Negative (Negative); Specific Gravity,Urine 1.001 (1.001-1.035); Urobilinogen,Urine <2.0 mg/dL (<2.0)
[2017-06-06] MEDS ORDERED: HALOPERIDOL LACTATE 5 MG/ML 1 ML VIAL IVP STA (00:02)
[2017-06-06] MEDS: CARISOPRODOL 350 MG TAB PO PRN (01:43)
[2017-06-06] MEDS ORDERED: LORazepam 2 MG/ML INJ IV PRN (03:45)
[2017-06-06 04:55] LABS: HCT 38.9 % (39.0-53.0); HGB 14.2 gm/dL (13.0-17.5); MCH 31.1 pg (25.0-35.0); MCHC 36.7 g/dL (31.0-37.0); MCV 84.8 fL (80.0-100.0); Mean Platelet Volume 6.2; Platelet Count 323 k/uL (150-450); RBC 4.58 m/uL (4.30-5.90); RDW 12.5 % (11.5-15.5)
[2017-06-06] MEDS ORDERED: DEXMEDETOMIDINE 400 MCG in SODIUM CHLORIDE 0.9% 100 ML IV SCH (05:00)
[2017-06-06 05:10] LABS: Anion Gap 19 mmol/L; Blood Urea Nitrogen 6 mg/dL (9-20); Calcium 10.5 mg/dL (8.4-10.2); Carbon Dioxide 18 mmol/L (22-30); Chloride 101 mmol/L (98-107); Glucose 154 mg/dL (74-99); Potassium 4.3 mmol/L (3.5-5.1); Sodium 138 mmol/L (137-145)
[2017-06-06] MEDS ORDERED: DESMOPRESSIN ACETATE 4 MCG/ML VIAL (MDV) IVPB ONE (06:00)
[2017-06-06] MEDS ORDERED: DEXTROSE 5%-0.9% NACL 1,000 ML IV SCH (06:00)
[2017-06-06] MEDS ORDERED: DEXTROSE 5% IN WATER 1,000 ML IV SCH (06:30)
[2017-06-06] MEDS: BUTA/APAP/CAF/COD 50-325-40-30 CAP PO PRN ×2 (08:01→19:05)
[2017-06-06] MEDS: PANTOPRAZOLE 40 MG TABLET PO SCH ×2 (08:02→17:39)
[2017-06-06] MEDS: BRIMONIDINE TARTRATE 0.2% DROPS 5 ML BTL BOTH EYES SCH ×2 (08:02→20:27)
[2017-06-06] MEDS: ASPIRIN 81 MG PO SCH (08:02)
[2017-06-06] MEDS: METOPROLOL TARTRATE 25 MG TAB PO SCH ×2 (08:20→20:27)
[2017-06-06] MEDS: ENOXAPARIN 40 MG/0.4 ML SYRINGE SQ SCH (08:20)
[2017-06-06] MEDS: DEXTROSE 5% IN WATER 1,000 ML IV SCH (09:29)
[2017-06-06] MEDS: LISINOPRIL 10 MG TAB PO SCH (09:50)
[2017-06-06] MEDS: SODIUM BICARBONATE TAB 650 MG TAB PO SCH ×2 (09:50→20:24)
--- NOTE | 2017-06-06 11:22 | P.PN ---
Subjective Progress Note Date: 06/06/17 Principal diagnosis: Acute hypo osmolar hyponatremia This is a 66-year-old white male with history of multiple medical problems including duodenal stricture, previous biopsies have been negative for malignancy. History of chronic migraine cephalgia, history of chronic and recurrent episodes of nausea and vomiting. Patient also had recurrent episodes of hyponatremia and over the last 2 years he must have had at least half dozen admissions with hyponatremia treated as SIADH related and at times hypovolemia related. This time, the patient was admitted with altered mental status, and upon evaluation in the ER his sodium was as low as 112. Again the patient has been complaining of intermittent episodes of nausea and vomiting for the last few days, and intermittent episodes of migraine cephalgia. In addition to this the patient has history of chronic right upper quadrant pain previous cholecystectomy in August of 2016, this was done by Dr. bird. Patient is not on any diuretics, he is not on any medications that can potentially cause hyponatremia. Admitted to the ICU last night, seen by nephrology on consultation, given 0.9 normal saline, his sodium corrected over the last 12 hours about 4 mEq with 0.9 normal saline only. Sodium this morning is 116. Presently the patient denies any shortness of breath, no cough no wheezing, his main complaints seem to be related to severe right upper quadrant pain, and recurrent episodes of migraine cephalgia. Intermittent episodes of nausea and vomiting, but he is not nauseated this morning. He had occasional episodes of diarrhea in the past few days. Considering this history, it is not clear whether his hyponatremia is SIADH related or hypovolemia related. The clinical history is more suggestive of hypovolemia. Patient did improve a bit with 0.9 normal saline overnight. Patient was reevaluated today on 06/06/2017, feels much better, he feels he is basically back to normal. However early this morning around 4 AM, patient had an episode of profound confusion and IC psychosis/delirium. Did not improve with Haldol, did not improve with Ativan, hence the patient was placed on Precedex drip. Responded well to the treatment, and he remains on Precedex at present. Labs were reviewed, his sodium took a dramatic jump early this morning around 4 AM, it is up to 138, hence the patient was placed on D5W and today is 133. Apparently the patient was given 3% saline and at the same time he was given sodium tablets. No evidence of clinical symptoms to suggest CPM. Patient is doing well today, again he is quite asymptomatic. All his labs were reviewed continues to have a bit of a low bicarb with anion gap metabolic acidosis noted this morning. Patient was placed on bicarb orally by nephrology. Chest x-ray was unremarkable admission, acute abdominal series was also unremarkable. His GI symptoms have significantly improved. Objective - Vital Signs Vital signs: Vital Signs Temp 98.6 F 06/06/17 08:00 Pulse 75 06/06/17 11:00 Resp 20 06/06/17 11:00 BP 85/55 06/06/17 11:00 Pulse Ox 97 06/06/17 11:00 Intake & Output 06/05/17 06/06/17 06/06/17 18:59 06:59 18:59 Intake Total 7140 181 1733.208 Output Total 1450 4215 155 Balance -400 -3965 984.208 Weight 86.6 kg 86.6 kg Intake: IV 1050 250 250 0.9 NACL 800 3% sodium infusion 150 250 Dextrose 5% in Water 1, 100 000 ml @ 50 mls/hr IV . Q20H [facility] Rx#:[id number] Dextrose 5% in Water 1, 150 000 ml @ 75 mls/hr IV . [id number] [facility] Rx#:[id number] potassium chloride 100 Intake, IV Titration 139.208 Amount Dexmedetomidine 400 mcg 64.208 In Sodium Chloride 0.9% 100 ml @ Titrate IV .Q0M [facility] Rx#:[id number] Dextrose 5% in Water 1, 75 000 ml @ 75 mls/hr IV . [id number] [facility] Rx#:[id number] Oral 750 Output: Urine 1450 4215 155 Other: Voiding Method Urinal Indwelling Catheter Indwelling Catheter # Voids 550 - Exam Physical Exam: Revealed a 66-year-old white male in no distress. Head: Atraumatic, normocephalic. Eyes: PERRLA, EOMI, no icterus. HEENT: Moist mucous membranes are noted. [Neck is supple.] [No neck masses.] [ No thyromegaly.] [No JVD.] Chest: [Clear throughout, no crackles, no rhonchi, no wheezes.] Cardiac Exam: [Normal S1 and S2, no S3 gallop, no murmur.] Abdomen: [Soft, nontender, no megaly, no rebound, no guarding, normal bowel sounds.] Extremities: [No clubbing, no edema, no cyanosis.] Neurological Exam: [No focal neurologic deficit. Lymphatics: No lymphadenopathy. Psychiatric: Blunted affect, normal mood, and normal mental status examination today. Skin: Normal skin turgor. No cyanosis. And no rashes. - Labs CBC & Chem 7: 06/06/17 04:21 06/06/17 08:05 Labs: Abnormal Lab Results - Last 24 Hours (Table) 06/05/17 06/05/17 06/05/17 Range/Units 13:28 18:04 23:20 WBC (3.8-10.6) k/uL Hct (39.0-53.0) % Sodium 114 L* 118 L* (137-145) mmol/L Carbon Dioxide (22-30) mmol/L BUN (9-20) mg/dL Creatinine (0.66-1.25) mg/dL Glucose (74-99) mg/dL Calcium (8.4-10.2) mg/dL Urine Blood Moderate H (Negative) Urine Bacteria Rare H (None) /hpf 06/05/17 06/06/17 06/06/17 Range/Units 23:24 04:21 04:21 WBC 19.0 H (3.8-10.6) k/uL Hct 38.9 L (39.0-53.0) % Sodium 129 L (137-145) mmol/L Carbon Dioxide 18 L (22-30) mmol/L BUN 6 L (9-20) mg/dL Creatinine 0.50 L (0.66-1.25) mg/dL Glucose 154 H (74-99) mg/dL Calcium 10.5 H (8.4-10.2) mg/dL Urine Blood (Negative) Urine Bacteria (None) /hpf 06/06/17 Range/Units 08:05 WBC (3.8-10.6) k/uL Hct (39.0-53.0) % Sodium 133 L (137-145) mmol/L Carbon Dioxide (22-30) mmol/L BUN (9-20) mg/dL Creatinine (0.66-1.25) mg/dL Glucose (74-99) mg/dL Calcium (8.4-10.2) mg/dL Urine Blood (Negative) Urine Bacteria (None) /hpf Microbiology - Last 24 Hours (Table) 06/05/17 23:20 Urine Culture - Preliminary Urine,Catheterized Assessment and Plan Assessment: Impression: 1 acute, recurrent hypo-osmolar hyponatremia with history of chronic recurrent episodes of nausea and vomiting and intermittent diarrhea. Considering the patient has low serum osmolality, elevated urine sodium and elevated urine osmolality, possibility of SIADH is not entirely ruled out. I feel is probably a combination of both. But considering the history and considering the patient' s response to hydration, I believe it is related to sodium losses rather than SIADH. 2 history of chronic nausea and vomiting secondary to duodenal strictures patient may require to be evaluated again by Dr. bird or Dr. Hickman for EGD 3 history of chronic migraine cephalgia. 4 history of benign essential hypertension 5 acute non-anion gap metabolic acidosis. 6 acute ICU psychosis and delirium improved with Precedex. Recommendation: Continue present treatment plan, monitor in the ICU for the next 24 hours, taper and discontinue Precedex. Placed on Seroquel and will continue his Xanax. Time with Patient: Less than 30
[2017-06-06] MEDS ORDERED: MIDODRINE 5 MG TAB PO STA (11:34)
--- NOTE | 2017-06-06 12:33 | P.CRDCN ---
History of Present Illness Consult date: 06/06/17 Chief complaint: Chest pain History of present illness: This is a pleasant 66-year-old gentleman who sees Dr. SELENA Goode in the office on regular basis with a past medical history significant for coronary artery disease and prior stenting with unknown details at this point, in the setting of acute myocardial infarction, in 1999, as well as hypertension and dyslipidemia was admitted to the intensive care unit with severe hyponatremia. Apparently the patient had some change in mental status at home. He was brought to the emergency room and was found to be in severe hyponatremia and he was admitted to the intensive care unit. He was treated and the sodium seems to be within normal limits right now. We get involved in the care of the patient because of chest discomfort when he presented to the hospital. The patient developed the discomfort in the epigastric area without any associated symptoms of shortness of breath, sweating, dizziness or tiredness or syncope. The EKG showed sinus rhythm with nonspecific changes only. 3 sets of cardiac enzymes were checked and came in to be unremarkable. He underwent a stress test and echocardiogram back in 2015 and both came in to be unremarkable. Past Medical History Past Medical History: Coronary Artery Disease (CAD), Chest Pain / Angina, Eye Disorder, GERD/Reflux, Hyperlipidemia, Hypertension, Myocardial Infarction (CA) , Osteoarthritis (OA) Additional Past Medical History / Comment(s): SVT with ablation, gastric ulcers , chronic duodenal stricture, bilateral glaucoma, sinusitis, migraines, anemia, esophagitis,hiatal hernia, chronic back pain, past fx ribs/sternum Last Myocardial Infarction Date:: 1999 History of Any Multi-Drug Resistant Organisms: None Reported Past Surgical History: Cardiac Ablation, Cholecystectomy, Heart Catheterization With Stent Additional Past Surgical History / Comment(s): sinus surgery, cataracts bilaterally with lens implants, EGDs/colonoscopies, Past Anesthesia/Blood Transfusion Reactions: No Reported Reaction Additional Past Anesthesia/Blood Transfusion Reaction / Comment(s): Pt has had past multiple transfusions without reaction. Date of Last Stent Placement:: 1999 Past Psychological History: No Psychological Hx Reported Additional Psychological History / Comment(s): Pt resides with his spouse. 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 He is independent. Smoking Status: Former smoker Past Alcohol Use History: None Reported Additional Past Alcohol Use History / Comment(s): Pt states he started smoking in 1993 and quit in 1999 Past Drug Use History: None Reported - Past Family History Father Additional Family Medical History / Comment(s): Father at the age of 68yrs from a ruptured aortic aneurysm. Mother Family Medical History: Hyperlipidemia, Hypertension Additional Family Medical History / Comment(s): Mother lived into her 80's. Medications and Allergies Home Medications Medication Instructions Recorded Confirmed Type ALPRAZolam [Xanax] 0.25 mg PO TID PRN 07/12/13 06/04/17 History Carisoprodol [Soma] 350 mg PO TID PRN 07/12/13 06/04/17 History Metoprolol Tartrate [Lopressor] 25 mg PO BID 07/12/13 06/04/17 History Simvastatin [Zocor] 40 mg PO HS 07/12/13 06/04/17 History Temazepam [Restoril] 30 mg PO HS PRN 07/12/13 06/04/17 History Amitriptyline HCl 10 mg PO HS 01/26/16 06/04/17 History Nitroglycerin Sl Tabs [Nitrostat] 0.4 mg SUBLINGUAL Q5M PRN 01/28/16 06/04/17 History Brimonidine Tartrate [Alphagan P 1 drops BOTH EYES BID 02/20/16 06/04/17 History 0.2% Ophth Soln] [place]/APAP/Caf/Cod 22-748-64-30 1 cap PO Q8H PRN 02/20/16 06/04/17 History [Fioricet w/Cod 35-597-41-30MG] Latanoprost [Xalatan 0.005%] 1 drop BOTH EYES HS 02/20/16 06/04/17 History Ondansetron Odt [Zofran ODT] 4 mg PO Q8HR PRN #5 tab 02/21/16 06/04/17 Rx Pantoprazole Sodium 40 mg PO BID 06/26/16 06/04/17 History Metoclopramide [Reglan] 5 mg PO Q6H PRN 08/24/16 06/04/17 History Quinapril HCl [Accupril] 10 mg PO BID 08/24/16 06/04/17 History Aspirin EC [Ecotrin Low Dose] 81 mg PO DAILY 06/04/17 06/04/17 History Dicyclomine [Bentyl] 10 mg PO TID PRN 06/04/17 06/04/17 History Allergies Allergy/AdvReac Type Severity Reaction Status Date / Time atorvastatin [From Lipitor] AdvReac Unknown Verified 06/04/17 21:13 Physical Exam Vitals: Vital Signs Temp Pulse Pulse Resp BP BP Pulse Ox 06/06/17 11:00 75 20 85/55 97 06/06/17 10:30 71 22 83/41 95 06/06/17 10:00 96 22 98/66 98 06/06/17 09:30 89 20 85/62 99 06/06/17 09:00 109 H 20 85/52 96 06/06/17 08:30 99 20 153/74 99 06/06/17 08:00 98.6 F 103 H 22 114/60 99 06/06/17 07:00 101 H 20 101/52 97 06/06/17 06:30 119 H 20 90/50 97 06/06/17 06:00 123 H 20 113/56 95 06/06/17 05:30 108 H 20 79/46 96 06/06/17 05:00 150 H 24 178/77 06/06/17 04:30 140 H 24 158/85 06/06/17 04:00 115 H 25 H 158/85 06/06/17 03:30 129 H 20 143/70 97 06/06/17 03:00 98 20 143/70 97 06/06/17 02:30 126 H 23 97 06/06/17 02:00 117 H 24 146/73 96 06/06/17 01:30 114 H 24 146/73 97 06/06/17 01:00 93 23 146/73 97 06/06/17 00:30 82 24 102/53 06/06/17 00:10 89 18 102/53 06/06/17 00:00 81 24 102/53 06/05/17 23:44 77 24 102/53 06/05/17 23:30 83 24 102/53 06/05/17 23:00 63 13 102/53 06/05/17 22:30 65 13 117/64 06/05/17 22:00 68 24 117/64 94 L 06/05/17 21:30 66 20 150/65 96 06/05/17 21:00 87 24 150/65 98 06/05/17 20:30 97 24 145/73 06/05/17 20:00 85 24 145/73 06/05/17 19:30 74 24 143/81 06/05/17 19:00 77 18 143/81 98 06/05/17 18:30 70 17 143/81 99 06/05/17 18:00 68 22 140/74 98 06/05/17 17:30 78 24 140/78 98 06/05/17 17:00 76 13 118/64 98 06/05/17 16:30 67 16 124/59 98 06/05/17 16:00 98.0 F 63 23 126/59 97 06/05/17 15:30 61 11 L 120/63 96 06/05/17 15:00 58 L 22 116/62 98 06/05/17 14:30 59 L 19 109/63 97 06/05/17 14:00 97 20 104/58 98 06/05/17 13:30 57 L 16 133/71 98 06/05/17 13:00 66 20 146/77 99 06/05/17 12:30 67 16 123/67 99 Intake and Output 06/05/17 06/06/17 06/06/17 22:59 06:59 14:59 Intake Total 567 29 1397.208 Output Total 1750 3065 155 Balance -1400 -3015 1034.208 Intake: IV 350 50 300 3% sodium infusion 350 50 Dextrose 5% in Water 1, 150 000 ml @ 50 mls/hr IV . Q20H [facility] Rx#:[id number] Dextrose 5% in Water 1, 150 000 ml @ 75 mls/hr IV . [id number] [facility] Rx#:[id number] Intake, IV Titration 139.208 Amount Dexmedetomidine 400 mcg 64.208 In Sodium Chloride 0.9% 100 ml @ Titrate IV .Q0M [facility] Rx#:[id number] Dextrose 5% in Water 1, 75 000 ml @ 75 mls/hr IV . [id number] [facility] Rx#:[id number] Oral 750 Output: Urine 1750 3065 155 Other: Voiding Method Urinal Indwelling Catheter Indwelling Catheter # Voids 0 550 Weight 86.6 kg 86.6 kg - Constitutional General appearance: no acute distress - Respiratory Respiratory: bilateral: CTA - Cardiovascular Rhythm: regular Heart sounds: normal: S1, S2 Results 06/06/17 04:21 0407/18 08:05 CBC 06/06/17 Range/Units 04:21 WBC 19.0 H (3.8-10.6) k/uL RBC 4.58 (4.30-5.90) m/uL Hgb 14.2 (13.0-17.5) gm/dL Hct 38.9 L (39.0-53.0) % Plt Count 323 (150-450) k/uL Comprehensive Metabolic Panel 06/05/17 06/05/17 06/05/17 Range/Units 13:28 18:04 23:24 Sodium 114 L* 118 L* 129 L (137-145) mmol/L Potassium (3.5-5.1) mmol/L Chloride (98-107) mmol/L Carbon Dioxide (22-30) mmol/L BUN (9-20) mg/dL Creatinine (0.66-1.25) mg/dL Glucose (74-99) mg/dL Calcium (8.4-10.2) mg/dL 06/06/17 06/06/17 Range/Units 04:21 08:05 Sodium 138 133 L (137-145) mmol/L Potassium 4.3 (3.5-5.1) mmol/L Chloride 101 (98-107) mmol/L Carbon Dioxide 18 L (22-30) mmol/L BUN 6 L (9-20) mg/dL Creatinine 0.50 L (0.66-1.25) mg/dL Glucose 154 H (74-99) mg/dL Calcium 10.5 H (8.4-10.2) mg/dL Current Medications Generic Name Dose Route Start Last Admin Trade Name Freq PRN Reason Stop Dose Admin Acetam/Butalbital/Caffeine/Codeine 1 each 06/05/17 11:10 06/06/17 08:01 Fioricet W/Codeine PO 1 each Q8H PRN Administration Headache Acetaminophen 650 mg 06/05/17 00:30 Tylenol Tab PO Q4HR PRN for pain <6 Acetaminophen/Butalbital/Caffeine 1 each 06/05/17 02:54 06/05/17 03:06 Fioricet 50-325-40 PO 1 each Q8HR PRN Administration Headache Hydrocodone Bitart/Acetaminophen 1 each 06/05/17 00:30 06/05/17 06:47 [place] 5-325 PO 1 each Q6HR PRN Administration for pain >6 Alprazolam 0.25 mg 06/06/17 10:00 Xanax PO TID PRN Anxiety Aspirin 81 mg 06/06/17 09:00 06/06/17 08:02 Aspirin PO 81 mg DAILY DANIEL Administration Brimonidine Tartrate 1 drops 06/05/17 11:15 06/06/17 08:02 Alphagan P 0.2% Ophth Soln BOTH EYES 1 drops BID DANIEL Administration Carisoprodol 350 mg 06/05/17 08:57 06/06/17 01:43 Soma PO 350 mg TID PRN Administration Muscle Spasm Carisoprodol 350 mg 06/05/17 11:10 Soma PO TID PRN Pain Enoxaparin Sodium 40 mg 06/05/17 17:15 06/06/17 08:20 Lovenox SQ 40 mg DAILY DANIEL Administration Dexmedetomidine HCl 400 mcg/ 104 mls @ 0 mls/hr 06/06/17 05:00 06/06/17 10:39 Sodium Chloride IV 06/07/17 04:51 0.19 mcg/kg/hr .Q0M [facility]EL 4.4 mls/hr Protocol Titration Titrate Dextrose/Water 1,000 mls @ 50 mls/hr 06/06/17 09:00 06/06/17 09:29 Dextrose 5%-Water Iv Soln IV Not Given .Q20H DANIEL Latanoprost 1 drops 06/05/17 21:00 06/05/17 20:26 Xalatan 0.005% BOTH EYES 1 drops HS DANIEL Administration Metoclopramide HCl 5 mg 06/05/17 02:54 06/05/17 06:46 Reglan IVP 5 mg Q6HR PRN Administration severe Nausea and Vomiting Metoclopramide HCl 5 mg 06/05/17 11:10 06/05/17 19:50 Reglan PO 5 mg Q6H PRN Administration Nausea Metoprolol Tartrate 25 mg 06/05/17 00:30 06/06/17 08:20 Lopressor PO 25 mg BID DANIEL Administration Nitroglycerin 0.4 mg 06/04/17 22:57 Nitrostat SUBLINGUAL Q5M PRN Chest Pain Patient's Own Med ( 40 mg 04/07/18 21:00 Simvastatin 40 Mg) PO HS [facility] Ondansetron HCl 4 mg 06/05/17 11:10 06/05/17 17:53 Zofran Odt PO 4 mg Q8HR PRN Administration Nausea Pantoprazole Sodium 40 mg 06/05/17 17:30 06/06/17 08:02 Protonix PO 40 mg BID-W/MEALS DANIEL Administration Quetiapine Fumarate 25 mg 06/06/17 09:45 Seroquel PO DAILY [facility] Sodium Bicarbonate 650 mg 06/05/17 10:15 06/06/17 09:50 Sodium Bicarbonate Tab PO 650 mg BID DANIEL Administration Intake and Output 06/05/17 06/06/17 06/06/17 22:59 06:59 14:59 Intake Total 183 34 7193.208 Output Total 1750 3065 155 Balance -1400 -3015 1034.208 Intake: IV 350 50 300 3% sodium infusion 350 50 Dextrose 5% in Water 1, 150 000 ml @ 50 mls/hr IV . Q20H [facility] Rx#:[id number] Dextrose 5% in Water 1, 150 000 ml @ 75 mls/hr IV . [id number] [facility] Rx#:[id number] Intake, IV Titration 139.208 Amount Dexmedetomidine 400 mcg 64.208 In Sodium Chloride 0.9% 100 ml @ Titrate IV .Q0M [facility] Rx#:[id number] Dextrose 5% in Water 1, 75 000 ml @ 75 mls/hr IV . [id number] [facility] Rx#:[id number] Oral 750 Output: Urine 1750 3065 155 Other: Voiding Method Urinal Indwelling Catheter Indwelling Catheter # Voids 0 550 Weight 86.6 kg 86.6 kg Patient Weight 06/07/17 06:59 Weight 86.6 kg 06/06/17 04:21 06/06/17 08:05 Assessment and Plan Assessment: Assessment #1 severe hyponatremia which has resolved #2 atypical chest discomfort which has resolved #3 known CAD with prior stenting #4 hypotension Plan #1 the patient was ruled out for acute coronary event #2 he definitely need to have a stress test done either as an outpatient or as an inpatient. #3 I will obtain an echocardiogram was Doppler #4 continue the aspirin and metoprolol #5 DC the lisinopril in view of the low blood pressure #6 continue monitor the blood pressure very closely #7 follow-up with the patient.
--- NOTE | 2017-06-06 12:33 | PN ---
PROGRESS NOTE Patient is seen for followup for hyponatremia. Yesterday patient was started on 3% saline as his serum sodium level had gone down from 116 to 114. After initiation of 3% saline, serum sodium was at 118 after about 6 hours. Serum 3% saline was continued and about 6 hours later, serum sodium was up to 129. At that time, the 3% saline was discontinued. This morning his sodium was up to 138. It looks like the patient received sodium chloride tabs which I was not aware of. This is now discontinued. This morning patient was given DDAVP and started on D5 water secondary to rapid increase in his serum sodium level. All night patient has been confused and has been verbally aggressive. EXAMINATION: Blood pressure was 153/74, heart rate 99 per minute. He is afebrile. Examination of the heart S1, S2. Examination of the lungs bilateral breath sounds are heard. Decreased breath sounds at bases. Abdomen is soft, nontender. Examination lower extremities shows no evidence of edema. RAG GRADER exam shows patient moving all 4 extremities. LAB: Show serum sodium 138 this morning, serum creatinine 0.5, hemoglobin was 14.2. ASSESSMENT: 1. 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 The patient was started on 3% saline following which his serum sodium improved slowly. However, he had a rapid increase in sodium levels last night. I believe that was secondary to large sodium load with the sodium chloride tabs as well which I was not aware of. This has all been discontinued and currently patient is maintained on D5W to try and decrease the serum sodium level. The patient also received 1 dose of DDAVP to help with the rapid increase in serum sodium level. We will continue to monitor electrolytes closely. 2. Hypertension. Blood pressure currently on the lower side. 3. History of cholecystectomy. 4. Non anion gap metabolic acidosis, maintained on oral sodium bicarb. PLAN: Continue with oral sodium bicarb. DC sodium chloride tabs. Continue off of 3% saline. Continue D5W and repeat serum sodium in 3 hours. MMODL / IJN: [id number] /
[2017-06-06] MEDS: QUEtiapine 25 MG TAB PO SCH (13:50)
--- NOTE | 2017-06-06 15:46 | P.PN ---
Subjective Patient seen and evaluated. Discussion with nurse reviewed quick correction of sodium levels. Patient had acute delirium last night. Today, he is more awake alert and oriented to person place and time. Family is at bedside. He is tolerating fast food. No reports of abdominal pain. Objective - Vital Signs Vital signs: Vital Signs Temp 98.1 F 06/06/17 12:00 Pulse 67 06/06/17 15:00 Resp 14 06/06/17 15:00 BP 128/62 06/06/17 15:00 Pulse Ox 99 06/06/17 15:00 Intake & Output 06/05/17 06/06/17 06/06/17 18:59 06:59 18:59 Intake Total 3843 633 5442.675 Output Total 1450 4215 155 Balance -400 -3965 1696.675 Weight 86.6 kg 86.6 kg Intake: IV 1050 250 450 0.9 NACL 800 3% sodium infusion 150 250 Dextrose 5% in Water 1, 300 000 ml @ 50 mls/hr IV . Q20H DANIEL Rx#:[id number] Dextrose 5% in Water 1, 150 000 ml @ 75 mls/hr IV . [id number] DANIEL Rx#:[id number] potassium chloride 100 Intake, IV Titration 151.675 Amount Dexmedetomidine 400 mcg 76.675 In Sodium Chloride 0.9% 100 ml @ Titrate IV .Q0M DANIEL Rx#:[id number] Dextrose 5% in Water 1, 75 000 ml @ 75 mls/hr IV . [id number] DANIEL Rx#:[id number] Oral 1250 Output: Urine 1450 4215 155 Other: Voiding Method Urinal Indwelling Catheter Indwelling Catheter # Voids 550 - Exam GENERAL: Well developed and in no acute distress. Pleasant. HEENT: No sclera icterus. Extraocular movements grossly intact. Moist buccal mucosa. Head is atraumatic, normocephalic. Hears conversational speech. No nasal drainage. NECK: Supple without lymphadenopathy. No JV distention. CHEST: Non-labored respirations and equal bilateral excursions. CARDIOVASCULAR: Regular rate and rhythm. Palpable 2+ radial pulses. ABDOMEN: Soft, nontender. Nondistended. MUSCULOSKELETAL: No clubbing, cyanosis or edema. NEUROLOGIC: No focal or lateralizing signs. PSYCH: Appropriate affect. Alert and oriented to person, place and time. SKIN: Good skin turgor. Well perfused. - Labs CBC & Chem 7: 06/06/17 04:21 06/06/17 13:36 Labs: Abnormal Lab Results - Last 24 Hours (Table) 06/05/17 06/05/17 06/05/17 Range/Units 18:04 23:20 23:24 WBC (3.8-10.6) k/uL Hct (39.0-53.0) % Sodium 118 L* 129 L (137-145) mmol/L Carbon Dioxide (22-30) mmol/L BUN (9-20) mg/dL Creatinine (0.66-1.25) mg/dL Glucose (74-99) mg/dL Calcium (8.4-10.2) mg/dL Urine Blood Moderate H (Negative) Urine Bacteria Rare H (None) /hpf 06/06/17 06/06/17 06/06/17 Range/Units 04:21 04:21 08:05 WBC 19.0 H (3.8-10.6) k/uL Hct 38.9 L (39.0-53.0) % Sodium 133 L (137-145) mmol/L Carbon Dioxide 18 L (22-30) mmol/L BUN 6 L (9-20) mg/dL Creatinine 0.50 L (0.66-1.25) mg/dL Glucose 154 H (74-99) mg/dL Calcium 10.5 H (8.4-10.2) mg/dL Urine Blood (Negative) Urine Bacteria (None) /hpf 06/06/17 Range/Units 13:36 WBC (3.8-10.6) k/uL Hct (39.0-53.0) % Sodium 132 L (137-145) mmol/L Carbon Dioxide (22-30) mmol/L BUN (9-20) mg/dL Creatinine (0.66-1.25) mg/dL Glucose (74-99) mg/dL Calcium (8.4-10.2) mg/dL Urine Blood (Negative) Urine Bacteria (None) /hpf Microbiology - Last 24 Hours (Table) 06/05/17 23:20 Urine Culture - Preliminary Urine,Catheterized - Imaging and Cardiology Abdominal x-ray: report reviewed, image reviewed (No acute pathology) Assessment and Plan (1) Delirium Current Visit: Yes Status: Acute Code(s): R41.0 - DISORIENTATION, UNSPECIFIED SNOMED Code(s): 5396085 (2) Altered mental state Current Visit: Yes Status: Acute Code(s): R41.82 - ALTERED MENTAL STATUS, UNSPECIFIED SNOMED Code(s): 682006267 (3) Hyponatremia Current Visit: Yes Status: Acute Code(s): E87.1 - HYPO-OSMOLALITY AND HYPONATREMIA SNOMED Code(s): 74681027 (4) Abdominal pain Current Visit: No Status: Acute Code(s): R10.9 - UNSPECIFIED ABDOMINAL PAIN SNOMED Code(s): 56164577 Plan: 1. Clinically, his abdominal pain is resolved. 2. Abdominal x-rays were negative for acute pathology. 3. No surgical intervention needed. 4. Will follow as needed.
--- NOTE | 2017-06-06 16:10 | P.GSCN ---
History of Present Illness Consult date: 06/05/17 History of present illness: CHIEF COMPLAINT: Generalized abdominal pain HISTORY OF PRESENT ILLNESS: The patient is a 66-year-old gentleman who presents with mental status changes and hyponatremia. Family at bedside. Patient reports nausea and vomiting. At time of my evaluation, emesis consistent with saliva. Patient reports past history of cholecystectomy last year done by Dr. Marcus. This is his second episode of acute hyponatremia with delirium. He is passing flatus. Last bowel movement was a day ago. PAST MEDICAL HISTORY: See list. PAST SURGICAL HISTORY: See list. MEDICATIONS: See list. ALLERGIES: See list. SOCIAL HISTORY: Family is at bedside. No illicit drug use FAMILY HISTORY: Heart disease REVIEW OF ORGAN SYSTEMS: CONSTITUTIONAL: No fevers or chills HEENT: No troubles with vision or hearing. No reports of dysphagia. ENDOCRINE: No reports of thyroid disorders. No diabetes. CARDIOVASCULAR: History of hypertension. No recent heart attack. RESPIRATORY: No pneumonia. No asthma. GASTROINTESTINAL: No reports of recent blood in stools. Has gastroesophageal reflux disease NEURO: No reports of stroke or seizure disorders. History of chronic pain. PSYCH: No suicidal ideation. Has anxiety. Previous history of acute mental status change. HEMATOLOGIC: No easy bruising or bleeding LYMPHATIC: The patient denies any lumps and bumps around the neck. GENITOURINARY: Denies any blood in urine or increased urinary frequency. MUSCULOSKELETAL: Has back pain, stiffness or joint arthritis. PHYSICAL EXAM: VITAL SIGNS: Currently stable. GENERAL: Well-developed male in mild distress with vomiting HEENT: No sclera icterus. Extraocular movements grossly intact. Dry bucca mucosa. Head is atraumatic, normocephalic. Hears conversational speech. No nasal drainage. NECK: Supple without lymphadenopathy. CHEST: Non-labored respirations and equal bilateral excursions. CARDIOVASCULAR: Regular rate with regular rhythm. Palpable 2+ radial pulses. ABDOMEN: Soft. Nondistended. Minimal bilateral lower abdominal pain. No peritonitis. MUSCULOSKELETAL: No clubbing, cyanosis or edema. NEUROLOGIC: No focal or lateralizing signs. Cranial nerves II through XII grossly intact. PSYCH: Appropriate affect. Alert and oriented to person, place and time. SKIN: Flushed. Poor skin turgor. LABS: Reviewed ASSESSMENT: 1. Generalized abdominal pain. 2. Acute hyponatremia 3. Nausea and vomiting 4. Ileus PLAN: 1. Hyponatremia puts him at risk for ileus as well. Exam benign. 2. No acute abdomen or surgical abdomen. 3. Will get abdominal Xray. 4. Decadron for nausea. 5. Correct hyponatremia. 6. May benefit from nephrology consultation for sodium imbalance. Thank you for this kind consultation. Past Medical History Past Medical History: Coronary Artery Disease (CAD), Chest Pain / Angina, Eye Disorder, GERD/Reflux, Hyperlipidemia, Hypertension, Myocardial Infarction ([place]) , Osteoarthritis (OA) Additional Past Medical History / Comment(s): SVT with ablation, gastric ulcers , chronic duodenal stricture, bilateral glaucoma, sinusitis, migraines, anemia, esophagitis,hiatal hernia, chronic back pain, past fx ribs/sternum Last Myocardial Infarction Date:: 1999 History of Any Multi-Drug Resistant Organisms: None Reported Past Surgical History: Cardiac Ablation, Cholecystectomy, Heart Catheterization With Stent Additional Past Surgical History / Comment(s): sinus surgery, cataracts bilaterally with lens implants, EGDs/colonoscopies, Past Anesthesia/Blood Transfusion Reactions: No Reported Reaction Additional Past Anesthesia/Blood Transfusion Reaction / Comm: Pt has had past multiple transfusions without reaction. Date of Last Stent Placement:: 1999 Past Psychological History: No Psychological Hx Reported Additional Psychological History / Comment(s): Pt resides with his spouse. 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 He is independent. Smoking Status: Former smoker Past Alcohol Use History: None Reported Additional Past Alcohol Use History / Comment(s): Pt states he started smoking in 1993 and quit in 1999 Past Drug Use History: None Reported - Past Family History Father Additional Family Medical History / Comment(s): Father at the age of 68yrs from a ruptured aortic aneurysm. Mother Family Medical History: Hyperlipidemia, Hypertension Additional Family Medical History / Comment(s): Mother lived into her 80's. Medications and Allergies Home Medications Medication Instructions Recorded Confirmed Type ALPRAZolam [Xanax] 0.25 mg PO TID PRN 07/12/13 06/04/17 History Carisoprodol [Soma] 350 mg PO TID PRN 07/12/13 06/04/17 History Metoprolol Tartrate [Lopressor] 25 mg PO BID 07/12/13 06/04/17 History Simvastatin [Zocor] 40 mg PO HS 07/12/13 06/04/17 History Temazepam [Restoril] 30 mg PO HS PRN 07/12/13 06/04/17 History Amitriptyline HCl 10 mg PO HS 01/26/16 06/04/17 History Nitroglycerin Sl Tabs [Nitrostat] 0.4 mg SUBLINGUAL Q5M PRN 01/28/16 06/04/17 History Brimonidine Tartrate [Alphagan P 1 drops BOTH EYES BID 02/20/16 06/04/17 History 0.2% Ophth Soln] Buta/APAP/Caf/Cod 17-889-31-30 1 cap PO Q8H PRN 02/20/16 06/04/17 History [Fioricet w/Cod 73-370-63-30MG] Latanoprost [Xalatan 0.005%] 1 drop BOTH EYES HS 02/20/16 06/04/17 History Ondansetron Odt [Zofran ODT] 4 mg PO Q8HR PRN #5 tab 02/21/16 06/04/17 Rx Pantoprazole Sodium 40 mg PO BID 06/26/16 06/04/17 History Metoclopramide [Reglan] 5 mg PO Q6H PRN 08/24/16 06/04/17 History Quinapril HCl [Accupril] 10 mg PO BID 08/24/16 06/04/17 History Aspirin EC [Ecotrin Low Dose] 81 mg PO DAILY 06/04/17 06/04/17 History Dicyclomine [Bentyl] 10 mg PO TID PRN 06/04/17 06/04/17 History Allergies Allergy/AdvReac Type Severity Reaction Status Date / Time atorvastatin [From Lipitor] AdvReac Unknown Verified 06/04/17 21:13 Surgical - Exam Vital Signs Temp Pulse Resp BP Pulse Ox 97.8 F 69 18 105/60 91 L 06/04/17 20:44 06/04/17 20:44 06/04/17 20:44 06/04/17 20:44 06/04/17 20:44 Results - Labs 06/06/17 04:21 06/06/17 13:36 Abnormal Lab Results - Last 24 Hours (Table) 06/04/17 06/04/17 06/04/17 Range/Units 21:00 21:00 21:00 WBC (3.8-10.6) k/uL RBC 4.18 L (4.30-5.90) m/uL Hgb 12.7 L (13.0-17.5) gm/dL Hct 35.1 L (39.0-53.0) % MCHC (31.0-37.0) g/dL Monocytes # 1.1 H (0-1.0) k/uL Sodium 112 L* (137-145) mmol/L Chloride 81 L (98-107) mmol/L Carbon Dioxide 19 L (22-30) mmol/L BUN 4 L (9-20) mg/dL Creatinine 0.56 L (0.66-1.25) mg/dL Glucose 124 H (74-99) mg/dL POC Glucose (mg/dL) (75-99) mg/dL Osmolality (280-301) mosm/kg Uric Acid (3.5-8.5) mg/dL Magnesium 1.4 L (1.6-2.3) mg/dL AST 16 L (17-59) U/L Total Creatine Kinase (55-170) U/L CK-MB (CK-2) 2.8 H* (0.0-2.4) ng/mL Ur Random Sodium (30-90) mmol/L 06/04/17 06/04/17 06/05/17 Range/Units 21:28 23:55 01:23 WBC (3.8-10.6) k/uL RBC (4.30-5.90) m/uL Hgb (13.0-17.5) gm/dL Hct (39.0-53.0) % MCHC (31.0-37.0) g/dL Monocytes # (0-1.0) k/uL Sodium (137-145) mmol/L Chloride (98-107) mmol/L Carbon Dioxide (22-30) mmol/L BUN (9-20) mg/dL Creatinine (0.66-1.25) mg/dL Glucose (74-99) mg/dL POC Glucose (mg/dL) 127 H 110 H (75-99) mg/dL Osmolality (280-301) mosm/kg Uric Acid (3.5-8.5) mg/dL Magnesium (1.6-2.3) mg/dL AST (17-59) U/L Total Creatine Kinase (55-170) U/L CK-MB (CK-2) 2.6 H* (0.0-2.4) ng/mL Ur Random Sodium (30-90) mmol/L 06/05/17 06/05/17 06/05/17 Range/Units 01:23 01:30 05:14 WBC 13.2 H (3.8-10.6) k/uL RBC 4.08 L (4.30-5.90) m/uL Hgb 12.7 L (13.0-17.5) gm/dL Hct 33.9 L (39.0-53.0) % MCHC 37.3 H (31.0-37.0) g/dL Monocytes # (0-1.0) k/uL Sodium 115 L* (137-145) mmol/L Chloride (98-107) mmol/L Carbon Dioxide (22-30) mmol/L BUN (9-20) mg/dL Creatinine (0.66-1.25) mg/dL Glucose (74-99) mg/dL POC Glucose (mg/dL) (75-99) mg/dL Osmolality 232 L* (280-301) mosm/kg Uric Acid (3.5-8.5) mg/dL Magnesium (1.6-2.3) mg/dL AST (17-59) U/L Total Creatine Kinase (55-170) U/L CK-MB (CK-2) (0.0-2.4) ng/mL Ur Random Sodium 137 H (30-90) mmol/L 06/05/17 06/05/17 06/05/17 Range/Units 05:14 09:26 09:26 WBC (3.8-10.6) k/uL RBC (4.30-5.90) m/uL Hgb (13.0-17.5) gm/dL Hct (39.0-53.0) % MCHC (31.0-37.0) g/dL Monocytes # (0-1.0) k/uL Sodium 115 L* 116 L* (137-145) mmol/L Chloride 85 L (98-107) mmol/L Carbon Dioxide 17 L (22-30) mmol/L BUN 4 L (9-20) mg/dL Creatinine 0.50 L (0.66-1.25) mg/dL Glucose 107 H (74-99) mg/dL POC Glucose (mg/dL) (75-99) mg/dL Osmolality (280-301) mosm/kg Uric Acid (3.5-8.5) mg/dL Magnesium (1.6-2.3) mg/dL AST (17-59) U/L Total Creatine Kinase 191 H (55-170) U/L CK-MB (CK-2) 3.7 H* (0.0-2.4) ng/mL Ur Random Sodium (30-90) mmol/L 06/05/17 06/05/17 Range/Units 09:26 13:28 WBC (3.8-10.6) k/uL RBC (4.30-5.90) m/uL Hgb (13.0-17.5) gm/dL Hct (39.0-53.0) % MCHC (31.0-37.0) g/dL Monocytes # (0-1.0) k/uL Sodium 114 L* (137-145) mmol/L Chloride (98-107) mmol/L Carbon Dioxide (22-30) mmol/L BUN (9-20) mg/dL Creatinine (0.66-1.25) mg/dL Glucose (74-99) mg/dL POC Glucose (mg/dL) (75-99) mg/dL Osmolality (280-301) mosm/kg Uric Acid 2.3 L (3.5-8.5) mg/dL Magnesium (1.6-2.3) mg/dL AST (17-59) U/L Total Creatine Kinase (55-170) U/L CK-MB (CK-2) (0.0-2.4) ng/mL Ur Random Sodium (30-90) mmol/L Diabetes panel 06/04/17 06/05/17 06/05/17 Range/Units 21:00 01:23 01:23 Sodium 112 L* 115 L* (137-145) mmol/L Potassium 3.6 (3.5-5.1) mmol/L Chloride 81 L (98-107) mmol/L Carbon Dioxide 19 L (22-30) mmol/L BUN 4 L (9-20) mg/dL Creatinine 0.56 L (0.66-1.25) mg/dL Glucose 124 H (74-99) mg/dL Calcium 8.7 (8.4-10.2) mg/dL AST 16 L (17-59) U/L ALT 27 (21-72) U/L Alkaline Phosphatase 90 (38-126) U/L Total Protein 6.7 (6.3-8.2) g/dL Albumin 4.0 (3.5-5.0) g/dL Triglycerides 83 (<150) mg/dL HDL Cholesterol 55 (40-60) mg/dL 06/05/17 06/05/17 06/05/17 Range/Units 05:14 09:26 13:28 Sodium 115 L* 116 L* 114 L* (137-145) mmol/L Potassium 3.8 (3.5-5.1) mmol/L Chloride 85 L (98-107) mmol/L Carbon Dioxide 17 L (22-30) mmol/L BUN 4 L (9-20) mg/dL Creatinine 0.50 L (0.66-1.25) mg/dL Glucose 107 H (74-99) mg/dL Calcium 8.4 (8.4-10.2) mg/dL AST (17-59) U/L ALT (21-72) U/L Alkaline Phosphatase (38-126) U/L Total Protein (6.3-8.2) g/dL Albumin (3.5-5.0) g/dL Triglycerides (<150) mg/dL HDL Cholesterol (40-60) mg/dL Thyroid panel 06/05/17 Range/Units 09:26 TSH 2.010 (0.465-4.680) mIU/L Calcium panel 06/04/17 06/05/17 Range/Units 21:00 05:14 Calcium 8.7 8.4 (8.4-10.2) mg/dL Albumin 4.0 (3.5-5.0) g/dL Pituitary panel 06/04/17 06/05/17 06/05/17 Range/Units 21:00 01:23 05:14 Sodium 112 L* 115 L* 115 L* (137-145) mmol/L Potassium 3.6 3.8 (3.5-5.1) mmol/L Chloride 81 L 85 L (98-107) mmol/L Carbon Dioxide 19 L 17 L (22-30) mmol/L BUN 4 L 4 L (9-20) mg/dL Creatinine 0.56 L 0.50 L (0.66-1.25) mg/dL Glucose 124 H 107 H (74-99) mg/dL Calcium 8.7 8.4 (8.4-10.2) mg/dL TSH (0.465-4.680) mIU/L 06/05/17 06/05/17 06/05/17 Range/Units 09:26 09:26 13:28 Sodium 116 L* 114 L* (137-145) mmol/L Potassium (3.5-5.1) mmol/L Chloride (98-107) mmol/L Carbon Dioxide (22-30) mmol/L BUN (9-20) mg/dL Creatinine (0.66-1.25) mg/dL Glucose (74-99) mg/dL Calcium (8.4-10.2) mg/dL TSH 2.010 (0.465-4.680) mIU/L Adrenal panel 06/04/17 06/05/17 06/05/17 Range/Units 21:00 01:23 05:14 Sodium 112 L* 115 L* 115 L* (137-145) mmol/L Potassium 3.6 3.8 (3.5-5.1) mmol/L Chloride 81 L 85 L (98-107) mmol/L Carbon Dioxide 19 L 17 L (22-30) mmol/L BUN 4 L 4 L (9-20) mg/dL Creatinine 0.56 L 0.50 L (0.66-1.25) mg/dL Glucose 124 H 107 H (74-99) mg/dL Calcium 8.7 8.4 (8.4-10.2) mg/dL Total Bilirubin 0.5 (0.2-1.3) mg/dL AST 16 L (17-59) U/L ALT 27 (21-72) U/L Alkaline Phosphatase 90 (38-126) U/L Total Protein 6.7 (6.3-8.2) g/dL Albumin 4.0 (3.5-5.0) g/dL 06/05/17 06/05/17 Range/Units 09:26 13:28 Sodium 116 L* 114 L* (137-145) mmol/L Potassium (3.5-5.1) mmol/L Chloride (98-107) mmol/L Carbon Dioxide (22-30) mmol/L BUN (9-20) mg/dL Creatinine (0.66-1.25) mg/dL Glucose (74-99) mg/dL Calcium (8.4-10.2) mg/dL Total Bilirubin (0.2-1.3) mg/dL AST (17-59) U/L ALT (21-72) U/L Alkaline Phosphatase (38-126) U/L Total Protein (6.3-8.2) g/dL Albumin (3.5-5.0) g/dL Assessment and Plan (1) Ileus Current Visit: Yes Status: Acute Code(s): K56.7 - ILEUS, UNSPECIFIED SNOMED Code(s): 020009936 (2) Acute encephalopathy Current Visit: Yes Status: Acute Code(s): G93.40 - ENCEPHALOPATHY, UNSPECIFIED SNOMED Code(s): 77576379 (3) Delirium Current Visit: Yes Status: Acute Code(s): R41.0 - DISORIENTATION, UNSPECIFIED SNOMED Code(s): 9905862 (4) Hyponatremia Current Visit: Yes Status: Acute Code(s): E87.1 - HYPO-OSMOLALITY AND HYPONATREMIA SNOMED Code(s): 26681468 (5) Abdominal pain Current Visit: No Status: Acute Code(s): R10.9 - UNSPECIFIED ABDOMINAL PAIN SNOMED Code(s): 09461466 (6) Dehydration Current Visit: No Status: Acute Code(s): E86.0 - DEHYDRATION SNOMED Code(s ): 73790964 (7) Hyponatremia Current Visit: No Status: Acute Code(s): E87.1 - HYPO-OSMOLALITY AND HYPONATREMIA SNOMED Code(s): 86213053 (8) Intractable nausea and vomiting Current Visit: No Status: Acute Code(s): R11.2 - NAUSEA WITH VOMITING, UNSPECIFIED SNOMED Code(s): 431961204
--- NOTE | 2017-06-06 18:09 | P.PN ---
Subjective Progress Note Date: 06/06/17 This patient is a 66-year-old right-handed white male who was admitted to Hospital with symptoms of severe hyponatremia. Neurology was consulted yesterday as he also has history of migraine headaches. His neurological examination yesterday revealed evidence of bilateral occipital neuritis. We have recommended that he may undergo occipital nerve block procedure performed by anesthesia and apparently can only be done on Thursday. Patient had an episode of increased confusion yesterday evening. His serum sodium today is noted to be 133. Nephrology is following the patient closely for this condition. The patient is resting comfortably today in the intensive care unit. He seems to be doing much better as yesterday evening he was quite confused and disoriented. He was seen today by cardiology for evaluation of atypical chest discomfort. His symptoms have subsequently resolved. Dr. Aquino is following the patient for this condition as well. The ICU nursing staff did inform us of correction of his serum sodium last night. Apparently this was a quick correction of the sodium levels that was done by Dr. Walters and nephrology. According to the ICU nurse Dr. Collado had ordered some immediate treatment for this including D5W and DDVAP administration. We will await further recommendations from Dr. Collado. The patient did have mild headache earlier today which was treated with 1. Set which worked very well for him. He is currently without any major headache. We did once again review his findings suggesting occipital neuritis as a contributing factor for his chronic headaches. He is aware that anesthesia has been consulted for possible occipital nerve block procedure on Thursday. We will continue close neurological follow-up this patient in the intensive care unit. Objective - Vital Signs Vital signs: Vital Signs Temp 98.2 F 06/06/17 16:00 Pulse 97 06/06/17 16:00 Resp 19 06/06/17 16:00 BP 116/52 06/06/17 16:00 Pulse Ox 99 06/06/17 16:00 Intake & Output 06/05/17 06/06/17 06/06/17 18:59 06:59 18:59 Intake Total 2102 951 7303.675 Output Total 1450 4215 155 Balance -400 -3965 67 Weight 86.6 kg 86.6 kg Intake: IV 1050 250 500 0.9 NACL 800 3% sodium infusion 150 250 Dextrose 5% in Water 1, 350 000 ml @ 50 mls/hr IV . Q20H [facility] Rx#:[id number] Dextrose 5% in Water 1, 150 000 ml @ 75 mls/hr IV . [id number] [facility] Rx#:[id number] potassium chloride 100 Intake, IV Titration 151.675 Amount Dexmedetomidine 400 mcg 76.675 In Sodium Chloride 0.9% 100 ml @ Titrate IV .Q0M [facility] Rx#:[id number] Dextrose 5% in Water 1, 75 000 ml @ 75 mls/hr IV . [id number] [facility] Rx#:[id number] Oral 1500 Output: Urine 1450 4215 155 Other: Voiding Method Urinal Indwelling Catheter Indwelling Catheter # Voids 550 - Exam Physical examination: PHYSICAL EXAMINATION: Patient is resting comfortably in bed. VITAL SIGNS: Blood pressure is [116/52]. Heart rate is [97]. Respiration is [19] . Temperature is [98.2]. HEENT: Head is atraumatic, neck is supple, there were no carotid bruits. CHEST: Lungs are clear to auscultation and percussion. CARDIAC: S1, S2 normal rate and rhythm. There is no murmur. ABDOMEN: Soft and nontender. Bowel sounds are present. EXTREMITIES: There is no pedal edema. Peripheral pulses are present. Neurological examination: Patient has a nonfocal neurological examination today in the ICU. - Labs CBC & Chem 7: 06/06/17 04:21 06/06/17 13:36 Labs: Abnormal Lab Results - Last 24 Hours (Table) 06/05/17 06/05/17 06/05/17 Range/Units 18:04 23:20 23:24 WBC (3.8-10.6) k/uL Hct (39.0-53.0) % Sodium 118 L* 129 L (137-145) mmol/L Carbon Dioxide (22-30) mmol/L BUN (9-20) mg/dL Creatinine (0.66-1.25) mg/dL Glucose (74-99) mg/dL Calcium (8.4-10.2) mg/dL Urine Blood Moderate H (Negative) Urine Bacteria Rare H (None) /hpf 06/06/17 06/06/17 06/06/17 Range/Units 04:21 04:21 08:05 WBC 19.0 H (3.8-10.6) k/uL Hct 38.9 L (39.0-53.0) % Sodium 133 L (137-145) mmol/L Carbon Dioxide 18 L (22-30) mmol/L BUN 6 L (9-20) mg/dL Creatinine 0.50 L (0.66-1.25) mg/dL Glucose 154 H (74-99) mg/dL Calcium 10.5 H (8.4-10.2) mg/dL Urine Blood (Negative) Urine Bacteria (None) /hpf 06/06/17 Range/Units 13:36 WBC (3.8-10.6) k/uL Hct (39.0-53.0) % Sodium 132 L (137-145) mmol/L Carbon Dioxide (22-30) mmol/L BUN (9-20) mg/dL Creatinine (0.66-1.25) mg/dL Glucose (74-99) mg/dL Calcium (8.4-10.2) mg/dL Urine Blood (Negative) Urine Bacteria (None) /hpf Microbiology - Last 24 Hours (Table) 06/05/17 23:20 Urine Culture - Preliminary Urine,Catheterized Assessment and Plan (1) Hyponatremia Current Visit: No Status: Acute Code(s): E87.1 - HYPO-OSMOLALITY AND HYPONATREMIA SNOMED Code(s): 30851136 (2) Migraine headache Current Visit: Yes Status: Acute Code(s): G43.909 - MIGRAINE, UNSP, NOT INTRACTABLE, WITHOUT STATUS MIGRAINOSUS SNOMED Code(s): 74433051 (3) Occipital neuritis Current Visit: Yes Status: Acute Code(s): M54.81 - OCCIPITAL NEURALGIA SNOMED Code(s): 72814915 (4) Acute encephalopathy Current Visit: Yes Status: Acute Code(s): G93.40 - ENCEPHALOPATHY, UNSPECIFIED SNOMED Code(s): 01370112 Plan: This patient is a 66-year-old male who is seen today in the intensive care unit for ongoing treatment of migraine headaches. Patient has evidence of bilateral occipital neuritis which has been treated with mild heat to the head and neck region. For more definitive therapy we have recommended the patient undergo a bilateral occipital nerve block procedure on Thursday by anesthesia. Hopefully this will alleviate a lot of his chronic headache symptoms. He has been using Fioricet for breakthrough headaches. He required 1 dose today and it did seem to work very well for him. His neurological examination today is nonfocal. We will continue to monitor his progress closely during this admission. We have recommended for him to use the K pad to the back of the head and neck region as it may be helpful to relieve muscle tension in the cervical region. We will continue to follow his progress closely. Dr. Collaod and Dr. Walters are monitoring his hyponatremia. As noted his serum sodium today is 133. We will await further recommendations from Dr. Collado and further management of this condition. We will continue to follow his progress closely in the intensive care unit.
--- NOTE | 2017-06-06 20:09 | PN ---
PROGRESS NOTE DATE OF SERVICE: June 06, 2017. PRESENTING COMPLAINT: Hyponatremia. INTERVAL HISTORY: This patient presented with severe hyponatremia from decreased salt intake and excessive fluid intake. Yesterday evening was put on hypertonic saline by Nephrology. Last night the patient became delirious, had to be given some sedatives. Doing much better today. Communicating. Also had a headache, diagnosed to have occipital neuritis per Dr. Deutsch. Lower blood pressure BRITTA inhibitor was discontinued by Dr. Aquino. He will do a stress test later in admission. The patient tolerating a diet. at the bedside. Patient is still in the ICU. Blood pressure is running on the lower side. REVIEW OF SYSTEMS: Done for constitutional, cardiovascular, GI, pulmonary; relevant findings as above. CURRENT MEDICATIONS: Reviewed. PHYSICAL EXAMINATION: Temperature 98.1, pulse 73, respiratory 18, blood pressure 83/52, pulse ox 98% on room. General appearance: Lying in bed awake. Eyes pupils are equal. Conjunctivae normal. HEENT external appearance of nose and ears normal. Neck JVD not raised. Respiratory effort normal. Lungs decreased breath sounds. Cardiovascular: 1st and 2nd sounds normal. No edema. ABDOMEN: Soft, nontender. Liver and spleen not palpable. Psychiatry: Alert and oriented x3. Mood and affect anxious-appearing. INVESTIGATIONS: White count 19, potassium 4.3, sodium 138, serum osmolality 281. ASSESSMENT: 1. Hyponatremia, hypoosmolar, now corrected. 2. Coronary artery prior history of stent with more chest pain for stress test and patient stabilized. 3. Gastroesophageal reflux disease. 4. Chronic hypercholesteremia. 5. Essential hypertension history of. 6. Hypotension currently. 7. Chronic duodenal stricture, being followed by Dr. Francia Subramanian. 8. Chronic low back pain from osteoarthritis. 9. Non-anion gap metabolic acidosis. 10.Occipital neuritis. 11.Acute delirium, metabolic, now resolved. PLAN: Continue IV fluids. Encourage oral intake. Care was discussed with the patient and . Acute delirium has resolved. MMODL / IJN: [id number] /
[2017-06-06] MEDS: SIMVASTATIN 40 MG PO SCH (20:27)
[2017-06-06] MEDS: LATANOPROST 0.005% OPHTH DROPS 2.5 ML BTL BOTH EYES SCH (20:27)
[2017-06-07] MEDS: ALPRAZolam 0.25 MG TAB PO PRN ×2 (00:13→23:31)
[2017-06-07] MEDS: CARISOPRODOL 350 MG TAB PO PRN ×2 (00:14→23:31)
[2017-06-07 05:07] LABS: HCT 34.1 % (39.0-53.0); HGB 11.8 gm/dL (13.0-17.5); MCH 30.2 pg (25.0-35.0); MCHC 34.7 g/dL (31.0-37.0); MCV 87.1 fL (80.0-100.0); Mean Platelet Volume 6.4; Platelet Count 295 k/uL (150-450); RBC 3.92 m/uL (4.30-5.90); WBC 8.9 k/uL (3.8-10.6)
[2017-06-07 05:37] LABS: Anion Gap 11 mmol/L; Blood Urea Nitrogen 7 mg/dL (9-20); Calcium 8.8 mg/dL (8.4-10.2); Carbon Dioxide 23 mmol/L (22-30); Chloride 99 mmol/L (98-107); Glucose 111 mg/dL (74-99); Magnesium 1.9 mg/dL (1.6-2.3); Potassium 3.8 mmol/L (3.5-5.1); Sodium 133 mmol/L (137-145)
[2017-06-07] MEDS ORDERED: POTASSIUM CHLORIDE ER 20 MEQ TAB.ER PO ONE (07:00)
[2017-06-07] MEDS ORDERED: MAGNESIUM SULFATE-D5W PMX 1 GM in DEXTROSE/WATER 1 100ML.BAG IVPB ONE (07:00)
[2017-06-07] MEDS: PANTOPRAZOLE 40 MG TABLET PO SCH ×2 (07:41→16:48)
[2017-06-07] MEDS: DEXTROSE 5% IN WATER 1,000 ML IV SCH ×3 (07:42→17:31)
[2017-06-07] MEDS: BUTA/APAP/CAF/COD 50-325-40-30 CAP PO PRN (07:48)
[2017-06-07] MEDS: BRIMONIDINE TARTRATE 0.2% DROPS 5 ML BTL BOTH EYES SCH ×2 (08:54→22:05)
[2017-06-07] MEDS: METOPROLOL TARTRATE 25 MG TAB PO SCH ×2 (08:55→22:05)
[2017-06-07] MEDS: ASPIRIN 81 MG PO SCH (08:55)
[2017-06-07] MEDS: ENOXAPARIN 40 MG/0.4 ML SYRINGE SQ SCH (08:55)
[2017-06-07] MEDS: QUEtiapine 25 MG TAB PO SCH (08:55)
--- NOTE | 2017-06-07 12:37 | PN ---
PROGRESS NOTE DATE OF SERVICE: 06/07/17. PRESENTING COMPLAINT: Hyponatremia. INTERVAL HISTORY: Patient presents with severe hyponatremia from decreased salt intake and excessive fluid intake. Also had a bout of delirium in the ICU, which corrected. Also diagnosed to have occipital neuritis by Dr. Deutsch. The patient will have a stress test this admission when more stable per Dr. Aquino. The patient doing much better, tolerating a diet. Has been out of bed. REVIEW OF SYSTEMS: Done for constitutional, cardiovascular, GI, pulmonary; relevant findings as above. CURRENT MEDICATIONS: Reviewed. EXAMINATION: Temperature 98.1, pulse 91, respirations 16, blood pressure 109/62, pulse ox 97% on room air. GENERAL APPEARANCE: Lying in bed, awake. EYES: Pupils equal. Conjunctivae normal. HEENT: External nose and ears normal. Oral cavity normal. NECK: JVD not raised. Mass not palpable. RESPIRATORY: Effort, lungs slightly decreased breath sounds. CARDIOVASCULAR: First and second sounds, no edema. ABDOMEN: Soft, nontender. Liver and spleen not palpable. PSYCHIATRY: Alert and oriented x3. Mood and affect normal. INVESTIGATIONS: White count 8.9, sodium 133, potassium 3.8. ASSESSMENT: 1. Hyponatremia hypoosmolar, much improved. 2. Coronary artery disease with prior history of stent with more chest pain for a stress test probably tomorrow as per Dr. Aquino. 3. Gastroesophageal reflux disease. 4. Chronic hypercholesteremia. 5. Essential hypertension history of. 6. Hypotension, improving. 7. Chronic duodenal stricture, being followed by Dr. Francia Subramanian. 8. Chronic low back pain from osteoarthritis. 9. Non-anion gap metabolic acidosis. 10.Occipital neuritis. 11.Acute delirium from metabolic causes, now resolved. PLAN: Patient doing much better. Will be transferred out of the ICU. Stress test to be scheduled as per Dr. Aquino. MMODL / IJN: [id number] /
--- NOTE | 2017-06-07 13:11 | P.PN ---
Subjective Progress Note Date: 06/07/17 Principal diagnosis: Coronary artery disease This is a pleasant 66-year-old gentleman who sees Dr. SELENA Goode in the office on regular basis with a past medical history significant for coronary artery disease and prior stenting with unknown details at this point, in the setting of acute myocardial infarction, in 1999, as well as hypertension and dyslipidemia was admitted to the intensive care unit with severe hyponatremia. Apparently the patient had some change in mental status at home. He was brought to the emergency room and was found to be in severe hyponatremia and he was admitted to the intensive care unit. He was treated and the sodium seems to be within normal limits right now. We get involved in the care of the patient because of chest discomfort when he presented to the hospital. The patient developed the discomfort in the epigastric area without any associated symptoms of shortness of breath, sweating, dizziness or tiredness or syncope. On follow-up with the patient today, he denies having any chest pain or discomfort or shortness of breath. He is going to be transferred to non- telemetry unit downstairs. Objective - Vital Signs Vital signs: Vital Signs Temp 98.1 F 06/07/17 08:00 Pulse 76 06/07/17 11:00 Resp 21 06/07/17 11:00 BP 102/54 06/07/17 11:00 Pulse Ox 94 L 06/07/17 11:00 Intake & Output 06/06/17 06/07/17 06/07/17 18:59 06:59 18:59 Intake Total 2651.675 850 400 Output Total 255 1700 525 Balance 2396.675 -850 -125 Weight 86.6 kg 88.2 kg Intake: IV 600 650 350 Dextrose 5% in Water 1, 450 650 100 000 ml @ 50 mls/hr IV . Q20H [facility] Rx#:[id number] Dextrose 5% in Water 1, 150 000 ml @ 75 mls/hr IV . [id number] [facility] Rx#:[id number] Dextrose 5% in Water 1, 150 000 ml @ 75 mls/hr IV . [id number] [facility] Rx#:[id number] Magnesium Sulfate-D5w Pmx 100 1 gm In Dextrose/Water 1 100ml.bag @ 100 mls/hr IVPB ONCE ONE Rx#: [id number] Intake, IV Titration 151.675 Amount Dexmedetomidine 400 mcg 76.675 In Sodium Chloride 0.9% 100 ml @ Titrate IV .Q0M [facility] Rx#:[id number] Dextrose 5% in Water 1, 75 000 ml @ 75 mls/hr IV . [id number] [facility] Rx#:[id number] Oral 1900 200 50 Output: Urine 255 1700 525 Other: Voiding Method Indwelling Catheter Urinal Urinal - Constitutional General appearance: Present: no acute distress - Respiratory Respiratory: bilateral: CTA - Cardiovascular Rhythm: regular Heart sounds: normal: S1, S2 - Labs CBC & Chem 7: 06/07/17 04:17 06/07/17 09:10 Labs: Abnormal Lab Results - Last 24 Hours (Table) 06/06/17 06/06/17 06/06/17 Range/Units 13:36 18:28 23:59 RBC (4.30-5.90) m/uL Hgb (13.0-17.5) gm/dL Hct (39.0-53.0) % Sodium 132 L 132 L 127 L (137-145) mmol/L BUN (9-20) mg/dL Creatinine (0.66-1.25) mg/dL Glucose (74-99) mg/dL 06/07/17 06/07/17 06/07/17 Range/Units 04:17 04: 09:10 RBC 3.92 L (4.30-5.90) m/uL Hgb 11.8 L (13.0-17.5) gm/dL Hct 34.1 L (39.0-53.0) % Sodium 133 L 136 L (137-145) mmol/L BUN 7 L (9-20) mg/dL Creatinine 0.59 L (0.66-1.25) mg/dL Glucose 111 H (74-99) mg/dL Microbiology - Last 24 Hours (Table) 06/05/17 23:20 Urine Culture - Preliminary Urine,Catheterized Assessment and Plan Assessment: Assessment #1 severe hyponatremia which has resolved #2 atypical chest discomfort which has resolved #3 known CAD with prior stenting #4 hypotension Plan #1 the patient was ruled out for acute coronary event #2 he definitely need to have a stress test done either as an outpatient or as an inpatient. #3 we'll follow-up with the patient on when necessary case. Thank you for allowing us participate in his care
--- NOTE | 2017-06-07 13:22 | P.PN ---
Subjective Progress Note Date: 06/07/17 Principal diagnosis: Acute hypo osmolar hyponatremia This is a 66-year-old white male with history of multiple medical problems including duodenal stricture, previous biopsies have been negative for malignancy. History of chronic migraine cephalgia, history of chronic and recurrent episodes of nausea and vomiting. Patient also had recurrent episodes of hyponatremia and over the last 2 years he must have had at least half dozen admissions with hyponatremia treated as SIADH related and at times hypovolemia related. This time, the patient was admitted with altered mental status, and upon evaluation in the ER his sodium was as low as 112. Again the patient has been complaining of intermittent episodes of nausea and vomiting for the last few days, and intermittent episodes of migraine cephalgia. In addition to this the patient has history of chronic right upper quadrant pain previous cholecystectomy in August of 2016, this was done by Dr. bird. Patient is not on any diuretics, he is not on any medications that can potentially cause hyponatremia. Admitted to the ICU last night, seen by nephrology on consultation, given 0.9 normal saline, his sodium corrected over the last 12 hours about 4 mEq with 0.9 normal saline only. Sodium this morning is 116. Presently the patient denies any shortness of breath, no cough no wheezing, his main complaints seem to be related to severe right upper quadrant pain, and recurrent episodes of migraine cephalgia. Intermittent episodes of nausea and vomiting, but he is not nauseated this morning. He had occasional episodes of diarrhea in the past few days. Considering this history, it is not clear whether his hyponatremia is SIADH related or hypovolemia related. The clinical history is more suggestive of hypovolemia. Patient did improve a bit with 0.9 normal saline overnight. Patient was reevaluated today on 06/06/2017, feels much better, he feels he is basically back to normal. However early this morning around 4 AM, patient had an episode of profound confusion and IC psychosis/delirium. Did not improve with Haldol, did not improve with Ativan, hence the patient was placed on Precedex drip. Responded well to the treatment, and he remains on Precedex at present. Labs were reviewed, his sodium took a dramatic jump early this morning around 4 AM, it is up to 138, hence the patient was placed on D5W and today is 133. Apparently the patient was given 3% saline and at the same time he was given sodium tablets. No evidence of clinical symptoms to suggest CPM. Patient is doing well today, again he is quite asymptomatic. All his labs were reviewed continues to have a bit of a low bicarb with anion gap metabolic acidosis noted this morning. Patient was placed on bicarb orally by nephrology. Chest x-ray was unremarkable admission, acute abdominal series was also unremarkable. His GI symptoms have significantly improved. Patient was reevaluated today on 06/07/2017, continues to do well, relatively asymptomatic. No headaches, no nausea, no vomiting,sodium is 133, renal profile is normal, CBC is relatively normal. Hence I plan to transfer the patient out of the ICU to a regular medical floor. Objective - Vital Signs Vital signs: Vital Signs Temp 98.1 F 06/07/17 08:00 Pulse 76 06/07/17 11:00 Resp 21 06/07/17 11:00 BP 102/54 06/07/17 11:00 Pulse Ox 94 L 06/07/17 11:00 Intake & Output 06/06/17 06/07/17 06/07/17 18:59 06:59 18:59 Intake Total 2651.675 850 400 Output Total 255 1700 525 Balance 2396.675 -850 -125 Weight 86.6 kg 88.2 kg Intake: IV 600 650 350 Dextrose 5% in Water 1, 450 650 100 000 ml @ 50 mls/hr IV . Q20H [facility] Rx#:[id number] Dextrose 5% in Water 1, 150 000 ml @ 75 mls/hr IV . [id number] [facility] Rx#:[id number] Dextrose 5% in Water 1, 150 000 ml @ 75 mls/hr IV . [id number] [facility] Rx#:[id number] Magnesium Sulfate-D5w Pmx 100 1 gm In Dextrose/Water 1 100ml.bag @ 100 mls/hr IVPB ONCE ONE Rx#: [id number] Intake, IV Titration 151.675 Amount Dexmedetomidine 400 mcg 76.675 In Sodium Chloride 0.9% 100 ml @ Titrate IV .Q0M [facility] Rx#:[id number] Dextrose 5% in Water 1, 75 000 ml @ 75 mls/hr IV . [id number] [facility] Rx#:[id number] Oral 1900 200 50 Output: Urine 255 1700 525 Other: Voiding Method Indwelling Catheter Urinal Urinal - Exam Physical Exam: Revealed a 66-year-old white male in no distress. Head: Atraumatic, normocephalic. Eyes: PERRLA, EOMI, no icterus. HEENT: Moist mucous membranes are noted. [Neck is supple.] [No neck masses.] [ No thyromegaly.] [No JVD.] Chest: [Clear throughout, no crackles, no rhonchi, no wheezes.] Cardiac Exam: [Normal S1 and S2, no S3 gallop, no murmur.] Abdomen: [Soft, nontender, no megaly, no rebound, no guarding, normal bowel sounds.] Extremities: [No clubbing, no edema, no cyanosis.] Neurological Exam: [No focal neurologic deficit. Lymphatics: No lymphadenopathy. Psychiatric: Blunted affect, normal mood, and normal mental status examination today. Skin: Normal skin turgor. No cyanosis. And no rashes. - Labs CBC & Chem 7: 06/07/17 04:06/07/17 09:10 Labs: Abnormal Lab Results - Last 24 Hours (Table) 06/06/17 06/06/17 06/06/17 Range/Units 13:36 18:28 23:59 RBC (4.30-5.90) m/uL Hgb (13.0-17.5) gm/dL Hct (39.0-53.0) % Sodium 132 L 132 L 127 L (137-145) mmol/L BUN (9-20) mg/dL Creatinine (0.66-1.25) mg/dL Glucose (74-99) mg/dL 06/07/17 06/07/17 06/07/17 Range/Units :16 06: 09:10 RBC 3.92 L (4.30-5.90) m/uL Hgb 11.8 L (13.0-17.5) gm/dL Hct 34.1 L (39.0-53.0) % Sodium 133 L 136 L (137-145) mmol/L BUN 7 L (9-20) mg/dL Creatinine 0.59 L (0.66-1.25) mg/dL Glucose 111 H (74-99) mg/dL Microbiology - Last 24 Hours (Table) 06/05/17 23:20 Urine Culture - Preliminary Urine,Catheterized Assessment and Plan Assessment: Impression: 1 acute, recurrent hypo-osmolar hyponatremia with history of chronic recurrent episodes of nausea and vomiting and intermittent diarrhea. Considering the patient has low serum osmolality, elevated urine sodium and elevated urine osmolality, possibility of SIADH is not entirely ruled out. I feel is probably a combination of both. But considering the history and considering the patient' s response to hydration, I believe it is related to sodium losses rather than SIADH. 2 history of chronic nausea and vomiting secondary to duodenal strictures patient may require to be evaluated again by Dr. bird or Dr. Hickman for EGD 3 history of chronic migraine cephalgia. 4 history of benign essential hypertension 5 acute non-anion gap metabolic acidosis. 6 acute ICU psychosis and delirium improved with Precedex. Recommendation: Continue present treatment plan, transfer patient out of the ICU today, monitor electrolytes for one more day, consider discharge planning in the next 24 hours. Time with Patient: Less than 30
--- NOTE | 2017-06-07 14:25 | ECHOF ---
Referral Reason:cp MEASUREMENTS -------- HEIGHT: 177.8 cm WEIGHT: 72.6 kg BP: RVIDd: 3.7 cm (< 3.3) IVSd: 0.9 cm (0.6 - 1.1) LVIDd: 5.2 cm (3.9 - 5.3) LVPWd: 1.1 cm (0.6 - 1.1) IVSs: 1.6 cm LVIDs: 2.8 cm LVPWs: 1.7 cm Ao Diam: 4.0 cm (2.0 - 3.7) AV Cusp: 2.4 cm (1.5 - 2.6) LA Diam: 3.6 cm (2.7 - 3.8) MV EXCURSION: 13.189 mm (> 18.000) MV EF SLOPE: 71 mm/s (70 - 150) EPSS: 0.3 cm MV E Tab: 0.76 m/s MV DecT: 182 ms MV A Tab: 0.73 m/s MV E/A Ratio: 1.04 RAP: 5.00 mmHg RVSP: 28.25 mmHg FINDINGS -------- Sinus rhythm. This was a technically difficult study with suboptimal views. The left ventricular size is normal. Left ventricular wall thickness is normal. Overall left vent ricular systolic function is normal with, an EF between 55 - 60 %. The right ventricle is mild to moderately enlarged. The left atrium is normal in size. The right atrium was not well visualized. Lumason used The aortic valve is trileaflet and appears structurally normal. Mild mitral regurgitation is present. Mild tricuspid regurgitation present. The right ventricular systolic pressure, as measured by Doppl er, is 28.25mmHg. Pulmonic valve appears structurally normal. The aortic root is mild to moderately dilated measuring 4.0 cm. The pericardium is normal. CONCLUSIONS -------- 1. Sinus rhythm. 2. This was a technically difficult study with suboptimal views. 3. The left ventricular size is normal. 4. Left ventricular wall thickness is normal. 5. Overall left ventricular systolic function is normal with, an EF between 55 - 60 %. 6. The right ventricle is mild to moderately enlarged. 7. The left atrium is normal in size. 8. The right atrium was not well visualized. 9. Lumason used 10. The aortic valve is trileaflet and appears structurally normal. 11. Mild mitral regurgitation is present. 12. Mild tricuspid regurgitation present. 13. The right ventricular systolic pressure, as measured by Doppler, is 28.25mmHg. 14. Pulmonic valve appears structurally normal. 15. The aortic root is mild to moderately dilated measuring 4.0 cm 16. The pericardium is normal. PUBLIC HEALTH NURSE: Vanessa Bloom RDCS
--- NOTE | 2017-06-07 14:49 | P.PN ---
Subjective Progress Note Date: 06/07/17 This patient is a 66-year-old right-handed white male who was admitted to Hospital with symptoms of severe hyponatremia. Neurology was consulted yesterday as he also has history of migraine headaches. His neurological examination yesterday revealed evidence of bilateral occipital neuritis. We have recommended that he may undergo occipital nerve block procedure performed by anesthesia and apparently can only be done on Thursday. Patient had an episode of increased confusion yesterday evening. His serum sodium today is noted to be 133 and 136. Nephrology is following the patient closely for this condition. The patient is resting comfortably today in the intensive care unit. He seems to be doing much better as yesterday evening he was quite confused and disoriented. He was seen today by cardiology for evaluation of atypical chest discomfort. His symptoms have subsequently resolved. Dr. Aquino is following the patient for this condition as well. The ICU nursing staff did inform us of correction of his serum sodium last night. Apparently this was a quick correction of the sodium levels that was done by Dr. Walters and nephrology. According to the ICU nurse Dr. Collado had ordered some immediate treatment for this including D5W and DDVAP administration. We will await further recommendations from Dr. Collado. The patient did have mild headache earlier today which was treated with Fioricet, which worked very well for him. He is currently without any major headache. We did once again review his findings suggesting occipital neuritis as a contributing factor for his chronic headaches. He is aware that anesthesia has been consulted for possible occipital nerve block procedure on Thursday. Patient was transferred out of the ICU to the medical floor today. He seems to be doing quite well on the medical floor and states he only had 1 mild headache for which she was given medication. We've explained that tomorrow morning and hopefully anesthesia we' ll come by and take care of the bilateral occipital nerve block procedure for him. We will follow along with Dr. Collado and further management of his hyponatremia. We will continue close neurological follow-up this patient in the intensive care unit. Objective - Vital Signs Vital signs: Vital Signs Temp 98.1 F 06/07/17 08:00 Pulse 76 06/07/17 11:00 Resp 21 06/07/17 11:00 BP 102/54 06/07/17 11:00 Pulse Ox 94 L 06/07/17 11:00 Intake & Output 06/06/17 06/07/17 06/07/17 18:59 06:59 18:59 Intake Total 2651.675 850 475 Output Total 255 1700 875 Balance 2396.675 -850 -400 Weight 86.6 kg 88.2 kg Intake: IV 600 650 425 Dextrose 5% in Water 1, 450 650 100 000 ml @ 50 mls/hr IV . Q20H [facility] Rx#:[id number] Dextrose 5% in Water 1, 150 000 ml @ 75 mls/hr IV . [id number] [facility] Rx#:[id number] Dextrose 5% in Water 1, 225 000 ml @ 75 mls/hr IV . [id number] [facility] Rx#:[id number] Magnesium Sulfate-D5w Pmx 100 1 gm In Dextrose/Water 1 100ml.bag @ 100 mls/hr IVPB ONCE ONE Rx#: [id number] Intake, IV Titration 151.675 Amount Dexmedetomidine 400 mcg 76.675 In Sodium Chloride 0.9% 100 ml @ Titrate IV .Q0M [facility] Rx#:[id number] Dextrose 5% in Water 1, 75 000 ml @ 75 mls/hr IV . [id number] [facility] Rx#:[id number] Oral 1900 200 50 Output: Urine 255 1700 875 Other: Voiding Method Indwelling Catheter Urinal Urinal - Exam Physical examination: PHYSICAL EXAMINATION: Patient is resting comfortably in bed. VITAL SIGNS: Blood pressure is [102/54]. Heart rate is [76]. Respiration is [21] . Temperature is [98.1]. HEENT: Head is atraumatic, neck is supple, there were no carotid bruits. CHEST: Lungs are clear to auscultation and percussion. CARDIAC: S1, S2 normal rate and rhythm. There is no murmur. ABDOMEN: Soft and nontender. Bowel sounds are present. EXTREMITIES: There is no pedal edema. Peripheral pulses are present. Neurological examination: Patient has a nonfocal neurological examination today on the medical floor. He was transferred out of ICU earlier today. His neurological examination is nonfocal. - Labs CBC & Chem 7: 06/07/17 04:17 06/07/17 14:05 Labs: Abnormal Lab Results - Last 24 Hours (Table) 06/06/17 06/06/17 06/07/17 Range/Units 18:28 23:59 04:17 RBC 3.92 L (4.30-5.90) m/uL Hgb 11.8 L (13.0-17.5) gm/dL Hct 34.1 L (39.0-53.0) % Sodium 132 L 127 L (137-145) mmol/L BUN (9-20) mg/dL Creatinine (0.66-1.25) mg/dL Glucose (74-99) mg/dL 06/07/17 06/07/17 06/07/17 Range/Units 04:17 09:10 14:05 RBC (4.30-5.90) m/uL Hgb (13.0-17.5) gm/dL Hct (39.0-53.0) % Sodium 133 L 136 L 136 L (137-145) mmol/L BUN 7 L (9-20) mg/dL Creatinine 0.59 L (0.66-1.25) mg/dL Glucose 111 H (74-99) mg/dL Microbiology - Last 24 Hours (Table) 06/05/17 23:20 Urine Culture - Final Urine,Catheterized Assessment and Plan (1) Hyponatremia Current Visit: No Status: Acute Code(s): E87.1 - HYPO-OSMOLALITY AND HYPONATREMIA SNOMED Code(s): 90292050 (2) Migraine headache Current Visit: Yes Status: Acute Code(s): G43.909 - MIGRAINE, UNSP, NOT INTRACTABLE, WITHOUT STATUS MIGRAINOSUS SNOMED Code(s): 47481999 (3) Occipital neuritis Current Visit: Yes Status: Acute Code(s): M54.81 - OCCIPITAL NEURALGIA SNOMED Code(s): 55208186 (4) Acute encephalopathy Current Visit: Yes Status: Acute Code(s): G93.40 - ENCEPHALOPATHY, UNSPECIFIED SNOMED Code(s): 61391032 Plan: This patient is a 66-year-old male who is seen today for ongoing treatment of migraine headaches. Patient has evidence of bilateral occipital neuritis which has been treated with mild heat to the head and neck region. For more definitive therapy we have recommended the patient undergo a bilateral occipital nerve block procedure on Thursday by anesthesia. Patient was transferred out of the intensive care unit today. He is on the medical floor and seems to be doing quite well. We reminded the nursing staff that he does require a consultation with anesthesia tomorrow morning for bilateral occipital nerve block. They will remind him tomorrow morning as well. Hopefully this will alleviate a lot of his chronic headache symptoms. He has been using Fioricet for breakthrough headaches. He required 1 dose today and it did seem to work very well for him. His neurological examination today is nonfocal. We will continue to monitor his progress closely during this admission. We have recommended for him to use the K pad to the back of the head and neck region as it may be helpful to relieve muscle tension in the cervical region. We will continue to follow his progress closely. Dr. Collado and Dr. Walters are monitoring his hyponatremia. As noted his serum sodium today is 133. We will await further recommendations from Dr. Collado and further management of this condition. We will continue to follow his progress closely in the intensive care unit.
[2017-06-07] MEDS: BUTALB/APAP/CAFF 50-325-40MG TAB PO PRN ×2 (15:16→22:04)
--- NOTE | 2017-06-07 15:25 | PN ---
PROGRESS NOTE The patient is seen for followup for hyponatremia. He is currently awake, comfortable. He has not had any further mental status changes. He is not in any acute distress. Patient remains on D5W as serum sodium tends to continue to rise. Currently, fluid restriction has been discontinued and along with sodium chloride tabs. The patient did receive 1 dose of DDAVP yesterday. PHYSICAL EXAMINATION: Blood pressure this morning 160/85, heart rate 103 per minute. He is afebrile. Examination of the heart S1, S2. Examination of the lungs bilateral breath sounds are heard. Abdomen is soft, nontender. Examination of lower extremities shows no evidence of edema. ASSESSMENT ANALYST exam is grossly intact. LABS: Sodium of 133 this morning, BUN 7, serum creatinine 0.59, hemoglobin is 11.8 g/dL. ASSESSMENT: 1. Hyponatremia possibly secondary to Syndrome of inappropriate antidiuretic hormone. Serum sodium was had worsened while on normal saline and therefore he was started on 3% saline. Currently, he is improved, although he did have a fairly rapid increase yesterday. To avoid further increase, patient is maintained on D5W, which I will increase to 75 mL an hour. We will also DC all fluid restriction. Continue off of sodium chloride tabs. 2. Encephalopathy, currently improved. 3. Coronary artery disease with previous history of coronary stent. 4. Chronic back pain. PLAN: Continue D5W increased to 75 mL an hour and repeat serum sodium this afternoon. MMODL / IJN: [id number] /
[2017-06-07] MEDS: SODIUM BICARBONATE TAB 650 MG TAB PO SCH (16:05)
[2017-06-07] MEDS: LATANOPROST 0.005% OPHTH DROPS 2.5 ML BTL BOTH EYES SCH (22:04)
[2017-06-07] MEDS: SIMVASTATIN 40 MG PO SCH (22:06)
[2017-06-08 08:47] LABS: HCT 35.6 % (39.0-53.0); HGB 12.3 gm/dL (13.0-17.5); MCH 30.6 pg (25.0-35.0); MCHC 34.5 g/dL (31.0-37.0); MCV 88.6 fL (80.0-100.0); Mean Platelet Volume 6.6; Platelet Count 322 k/uL (150-450); RBC 4.02 m/uL (4.30-5.90); RDW 13.1 % (11.5-15.5); WBC 7.9 k/uL (3.8-10.6)
[2017-06-08] MEDS: PANTOPRAZOLE 40 MG TABLET PO SCH ×2 (08:58→17:58)
[2017-06-08] MEDS: BRIMONIDINE TARTRATE 0.2% DROPS 5 ML BTL BOTH EYES SCH ×2 (08:58→21:13)
[2017-06-08] MEDS: ENOXAPARIN 40 MG/0.4 ML SYRINGE SQ SCH (08:58)
[2017-06-08] MEDS: QUEtiapine 25 MG TAB PO SCH (08:58)
[2017-06-08] MEDS: ASPIRIN 81 MG PO SCH (08:58)
[2017-06-08] MEDS: METOPROLOL TARTRATE 25 MG TAB PO SCH ×2 (08:58→21:14)
[2017-06-08 09:00] LABS: Anion Gap 12 mmol/L; Blood Urea Nitrogen 8 mg/dL (9-20); Calcium 9.2 mg/dL (8.4-10.2); Carbon Dioxide 24 mmol/L (22-30); Chloride 98 mmol/L (98-107); Glucose 102 mg/dL (74-99); Potassium 4.1 mmol/L (3.5-5.1); Sodium 134 mmol/L (137-145)
--- NOTE | 2017-06-08 12:54 | PN ---
PROGRESS NOTE Patient is seen for followup for hyponatremia. He remains on D5W at 75 mL an hour. The patient has been eating well. His mentation is normal. He has also been walking with no problems. Serum sodium level is at 134 today, it was 137 yesterday. PHYSICAL EXAMINATION: On examination, patient is comfortable. Blood pressure is 148/78, heart rate is 72 per minute. Patient is afebrile. EXAMINATION OF THE HEART: S1 and S2. EXAMINATION OF THE LUNGS: Bilateral breath sounds are heard. Abdomen is soft, nontender. Examination of lower extremities shows no evidence of edema. 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 LABS: Labs show sodium 134, potassium 4.1, BUN 8, serum creatinine 0.51. ASSESSMENT: 1. Hyponatremia initially hypovolemic, however, serum sodium worsened with saline administration. 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 Serum sodium had increased rapidly and currently he is maintained on D5W to prevent further increase. The sodium level was 137 yesterday, it is at 134 today. Patient has been eating and drinking well. I will discontinue the D5W later on tonight. 2. Mental status changes secondary to encephalopathy, mainly metabolic, currently improved, possibly related to medications as well. PLAN: DC D5W later on this evening. Repeat labs in a.m. and patient can be discharged tomorrow. VIRA / IJN: [id number] /
--- NOTE | 2017-06-08 13:04 | P.PN ---
Subjective Progress Note Date: 06/08/17 Principal diagnosis: Acute recurrent hypoosmolar hyponatremia This is a 66-year-old white male with history of multiple medical problems including duodenal stricture, previous biopsies have been negative for malignancy. History of chronic migraine cephalgia, history of chronic and recurrent episodes of nausea and vomiting. Patient also had recurrent episodes of hyponatremia and over the last 2 years he must have had at least half dozen admissions with hyponatremia treated as SIADH related and at times hypovolemia related. This time, the patient was admitted with altered mental status, and upon evaluation in the ER his sodium was as low as 112. Again the patient has been complaining of intermittent episodes of nausea and vomiting for the last few days, and intermittent episodes of migraine cephalgia. In addition to this the patient has history of chronic right upper quadrant pain previous cholecystectomy in August of 2016, this was done by Dr. bird. Patient is not on any diuretics, he is not on any medications that can potentially cause hyponatremia. Admitted to the ICU last night, seen by nephrology on consultation, given 0.9 normal saline, his sodium corrected over the last 12 hours about 4 mEq with 0.9 normal saline only. Sodium this morning is 116. Presently the patient denies any shortness of breath, no cough no wheezing, his main complaints seem to be related to severe right upper quadrant pain, and recurrent episodes of migraine cephalgia. Intermittent episodes of nausea and vomiting, but he is not nauseated this morning. He had occasional episodes of diarrhea in the past few days. Considering this history, it is not clear whether his hyponatremia is SIADH related or hypovolemia related. The clinical history is more suggestive of hypovolemia. Patient did improve a bit with 0.9 normal saline overnight. Patient was reevaluated today on 06/06/2017, feels much better, he feels he is basically back to normal. However early this morning around 4 AM, patient had an episode of profound confusion and IC psychosis/delirium. Did not improve with Haldol, did not improve with Ativan, hence the patient was placed on Precedex drip. Responded well to the treatment, and he remains on Precedex at present. Labs were reviewed, his sodium took a dramatic jump early this morning around 4 AM, it is up to 138, hence the patient was placed on D5W and today is 133. Apparently the patient was given 3% saline and at the same time he was given sodium tablets. No evidence of clinical symptoms to suggest CPM. Patient is doing well today, again he is quite asymptomatic. All his labs were reviewed continues to have a bit of a low bicarb with anion gap metabolic acidosis noted this morning. Patient was placed on bicarb orally by nephrology. Chest x-ray was unremarkable admission, acute abdominal series was also unremarkable. His GI symptoms have significantly improved. Patient was reevaluated today on 06/07/2017, continues to do well, relatively asymptomatic. No headaches, no nausea, no vomiting,sodium is 133, renal profile is normal, CBC is relatively normal. Hence I plan to transfer the patient out of the ICU to a regular medical floor. On 06/08/2017 patient seen in follow-up on medical surgical floor. He is resting in bed, in no acute distress. Denies any specific complaints, denies any dyspnea, chest pain, weakness, he is awake, alert, responding appropriately. Currently on room air with O2 sat 98%. Vital signs are stable, afebrile. Lung sounds are clear to auscultation. Today's labs were reviewed, WBC 7.9, hemoglobin is 12.3, serum sodium is 134, BUN is 8, creatinine 0.51. Patient is tolerating oral intake. Nephrology is following. Objective - Vital Signs Vital signs: Vital Signs Temp 98.3 F 06/08/17 07:00 Pulse 70 06/08/17 07:00 Resp 18 06/08/17 07:00 BP 148/78 06/08/17 07:00 Pulse Ox 98 06/08/17 07:00 Intake & Output 06/07/17 06/08/17 06/08/17 18:59 06:59 18:59 Intake Total 475 Output Total 1075 950 Balance -600 -950 Intake: IV 425 Dextrose 5% in Water 1, 100 000 ml @ 50 mls/hr IV . Q20H [facility] Rx#:[id number] Dextrose 5% in Water 1, 225 000 ml @ 75 mls/hr IV . [id number] [facility] Rx#:[id number] Magnesium Sulfate-D5w Pmx 100 1 gm In Dextrose/Water 1 100ml.bag @ 100 mls/hr IVPB ONCE ONE Rx#: [id number] Oral 50 Output: Urine 1075 950 Other: Voiding Method Urinal Urinal # Voids 1 5 - Exam Physical Exam: Revealed a 66-year-old white male in no distress. Head: Atraumatic, normocephalic. Eyes: PERRLA, EOMI, no icterus. HEENT: Moist mucous membranes are noted. [Neck is supple.] [No neck masses.] [ No thyromegaly.] [No JVD.] Chest: [Clear throughout, no crackles, no rhonchi, no wheezes.] Cardiac Exam: [Normal S1 and S2, no S3 gallop, no murmur.] Abdomen: [Soft, nontender, no megaly, no rebound, no guarding, normal bowel sounds.] Extremities: [No clubbing, no edema, no cyanosis.] Neurological Exam: [No focal neurologic deficit. Lymphatics: No lymphadenopathy. Psychiatric: Blunted affect, normal mood, and normal mental status examination today. Skin: Normal skin turgor. No cyanosis. And no rashes. - Labs CBC & Chem 7: 06/08/17 07:59 06/08/17 07:59 Labs: Abnormal Lab Results - Last 24 Hours (Table) 06/07/17 06/08/17 06/08/17 Range/Units 14:05 07:59 07:59 RBC 4.02 L (4.30-5.90) m/uL Hgb 12.3 L (13.0-17.5) gm/dL Hct 35.6 L (39.0-53.0) % Sodium 136 L 134 L (137-145) mmol/L BUN 8 L (9-20) mg/dL Creatinine 0.51 L (0.66-1.25) mg/dL Glucose 102 H (74-99) mg/dL Microbiology - Last 24 Hours (Table) 06/05/17 23:20 Urine Culture - Final Urine,Catheterized Assessment and Plan Plan: Assessment: 1 acute, recurrent hypo-osmolar hyponatremia with history of chronic recurrent episodes of nausea and vomiting and intermittent diarrhea. Considering the patient has low serum osmolality, elevated urine sodium and elevated urine osmolality, possibility of SIADH is not entirely ruled out. I feel is probably a combination of both. But considering the history and considering the patient' s response to hydration, I believe it is related to sodium losses rather than SIADH. 2 history of chronic nausea and vomiting secondary to duodenal strictures patient may require to be evaluated again by Dr. bird or Dr. Hickman for EGD 3 history of chronic migraine cephalgia. 4 history of benign essential hypertension 5 acute non-anion gap metabolic acidosis. 6 acute ICU psychosis and delirium improved with Precedex. Plan: Patient is without any specific complaints, no neurologic deficits, serum sodium is 134 on today's labs, no further nausea, vomiting or diarrhea. Vital signs are stable, no acute events overnight. No neurologic deficits no seizures. From pulmonary/critical care standpoint patient remains stable, nephrology is following. We will sign off at this time, and follow on a as needed basis. Thank you for this consultation. I performed a history & physical examination of the patient and discussed their management with my nurse practitioner, Mariana Barnard. I reviewed the nurse practitioner's note and agree with the documented findings and plan of care. Lung sounds are clear. The findings and the impression was discussed with the patient. I attest to the documentation by the nurse practitioner. Time with Patient: Less than 30
[2017-06-08] MEDS: HYDROcodone/APAP 5-325MG 1 EACH TAB PO PRN (14:04)
[2017-06-08] MEDS: DEXTROSE 5% IN WATER 1,000 ML IV SCH (14:05)
[2017-06-08 15:24] VITALS: BMI 25.6
--- NOTE | 2017-06-08 17:27 | P.PN ---
Subjective Progress Note Date: 06/08/17 Progress note being dictated for Dr. Tijerina. Interval history: This a 66-year-old gentleman initially admitted with hypovolemic hyponatremia, now euvolemic possibly from SIADH. Remains on fluid restrictions. Diet intake improving. No further nausea ,vomiting or diarrhea. Sodium level 134. Sensorium significantly improved. Ambulating in room, denies focal deficits, no lightheadedness, no dizziness. Tolerating exertion well, denies chest pain, palpitations, shortness of breath. Afebrile. Creatinine 0.51. Objective - Vital Signs Vital signs: Vital Signs Temp 98.8 F 06/08/17 14:34 Pulse 68 06/08/17 14:34 Resp 18 06/08/17 14:34 BP 155/77 06/08/17 14:34 Pulse Ox 98 06/08/17 14:34 Intake & Output 06/07/17 06/08/17 06/08/17 18:59 06:59 18:59 Intake Total 475 600 Output Total 1075 950 650 Balance -600 -950 -50 Weight 88.2 kg Intake: IV 425 600 Dextrose 5% in Water 1, 100 000 ml @ 50 mls/hr IV . Q20H [facility] Rx#:[id number] Dextrose 5% in Water 1, 225 600 000 ml @ 75 mls/hr IV . [id number] [facility] Rx#:[id number] Magnesium Sulfate-D5w Pmx 100 1 gm In Dextrose/Water 1 100ml.bag @ 100 mls/hr IVPB ONCE ONE Rx#: [id number] Oral 50 Output: Urine 1075 950 650 Other: Voiding Method Urinal Urinal # Voids 1 5 5 - Exam PHYSICAL EXAM: VITAL SIGNS: As above GENERAL: Sitting up in bed, no acute distress HEENT: Conjunctivae normal. eyes normal. Oral mucosa moist NECK: No JVD. No thyroid enlargement. No LNs CARDIOVASCULAR: S1, S2 muffled. No murmur RESPIRATION: Breath sounds diminished in the bases. No rhonchi or crackles. No bronchial breathing. ABDOMEN: Soft, nontender . No guarding. no masses palpable.Bowel sounds heard. LEGS: No edema. no swelling PSYCHIATRY: Alert and oriented -3, mood and affect normal. NERVOUS SYSTEM: Cranial N 2-12 grossly normal. Moves all 4 limbs. Diffuse weakness No focal deficits. Skin: no ulcer no rash Joints: No active swelling. No inflammation. Lymphatic system. No LN neck axilla or groin. - Labs CBC & Chem 7: 06/08/17 07:59 06/08/17 07:59 Labs: Abnormal Lab Results - Last 24 Hours (Table) 06/08/17 06/08/17 Range/Units 07:59 07:59 RBC 4.02 L (4.30-5.90) m/uL Hgb 12.3 L (13.0-17.5) gm/dL Hct 35.6 L (39.0-53.0) % Sodium 134 L (137-145) mmol/L BUN 8 L (9-20) mg/dL Creatinine 0.51 L (0.66-1.25) mg/dL Glucose 102 H (74-99) mg/dL Microbiology - Last 24 Hours (Table) 06/05/17 23:20 Urine Culture - Final Urine,Catheterized Assessment and Plan Assessment: 1. Hypovolemic hyponatremia, initially. 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 Acute metabolic encephalopathy, sensorium improved 3. Chronic nausea and vomiting secondary to duodenal strictures 4. Chronic migraine cephalgia, occipital neuritis 5. Atypical chest discomfort, resolved in a patient with CAD, history of stent. Outpatient stress test as per cardiology. Plan: Continue on current medication regime ,monitoring and symptomatic treatment. IV fluids of D5W being discontinued tonight. Oxygen can be tapered off, maintaining O2 sats of high 90s on 2 L nasal cannula. Pain management/ anesthesia has been consulted for occipital nerve block. Discharge planning in progress for tomorrow. The impression and plan of care has been dictated as directed. : I performed a history and examination of this patient, discussed the same with the dictator. I agree with the dictator's note ,documented as a scribe. Any additional findings or plans will be noted.
[2017-06-08] MEDS: LATANOPROST 0.005% OPHTH DROPS 2.5 ML BTL BOTH EYES SCH (21:13)
[2017-06-08] MEDS: SIMVASTATIN 40 MG PO SCH (21:15)
[2017-06-08] MEDS: BUTA/APAP/CAF/COD 50-325-40-30 CAP PO PRN (22:30)
--- NOTE | 2017-06-08 22:45 | P.PN ---
Subjective Progress Note Date: 06/08/17 This patient is a 66-year-old right-handed white male who was admitted to Hospital with symptoms of severe hyponatremia. Neurology was consulted yesterday as he also has history of migraine headaches. His neurological examination yesterday revealed evidence of bilateral occipital neuritis. We have recommended that he may undergo occipital nerve block procedure performed by anesthesia and apparently can only be done on Thursday. Patient had an episode of increased confusion yesterday evening. His serum sodium today is noted to be 134. Nephrology is following the patient closely for this condition. The patient is resting comfortably today in the intensive care unit. He seems to be doing much better as yesterday evening he was quite confused and disoriented. He was seen today by cardiology for evaluation of atypical chest discomfort. His symptoms have subsequently resolved. Dr. Aquino is following the patient for this condition as well. The ICU nursing staff did inform us of correction of his serum sodium last night. Apparently this was a quick correction of the sodium levels that was done by Dr. Walters and nephrology. According to the ICU nurse Dr. Collado had ordered some immediate treatment for this including D5W and DDVAP administration. We will await further recommendations from Dr. Collado. The patient did have mild headache earlier today which was treated with Fioricet, which worked very well for him. He is currently without any major headache. We did once again review his findings suggesting occipital neuritis as a contributing factor for his chronic headaches. He is aware that anesthesia has been consulted for possible occipital nerve block procedure on Thursday. Patient was transferred out of the ICU to the medical floor yesterday. He seems to be doing quite well on the medical floor and states he only had 1 mild headache for which she was given medication. Apparently the patient was seen by anesthesia this morning. Still unclear whether nerve block is being planned for treatment for his condition. We will follow along with Dr. Collado and further management of his hyponatremia. We will continue close neurological follow-up this patient in the intensive care unit. Objective - Vital Signs Vital signs: Vital Signs Temp 98.8 F 06/08/17 14:34 Pulse 68 06/08/17 14:34 Resp 18 06/08/17 14:34 BP 155/77 06/08/17 14:34 Pulse Ox 98 06/08/17 14:34 Intake & Output 06/08/17 06/08/17 06/09/17 06:59 18:59 06:59 Intake Total 600 Output Total 950 1400 Balance -950 -800 Weight 88.2 kg Intake: IV 600 Dextrose 5% in Water 1, 600 000 ml @ 75 mls/hr IV . [id number] [facility] Rx#:[id number] Output: Urine 950 1400 Other: Voiding Method Urinal # Voids 5 5 - Exam Physical examination: PHYSICAL EXAMINATION: Patient is resting comfortably in bed. VITAL SIGNS: Blood pressure is [155/77]. Heart rate is [68]. Respiration is [18] . Temperature is [98.8]. HEENT: Head is atraumatic, neck is supple, there were no carotid bruits. CHEST: Lungs are clear to auscultation and percussion. CARDIAC: S1, S2 normal rate and rhythm. There is no murmur. ABDOMEN: Soft and nontender. Bowel sounds are present. EXTREMITIES: There is no pedal edema. Peripheral pulses are present. Neurological examination: Patient has a nonfocal neurological examination today on the medical floor. He was transferred out of ICU earlier today. His neurological examination is nonfocal. - Labs CBC & Chem 7: 06/08/17 07:59 06/08/17 07:59 Labs: Abnormal Lab Results - Last 24 Hours (Table) 06/08/17 06/08/17 Range/Units 07:59 07:59 RBC 4.02 L (4.30-5.90) m/uL Hgb 12.3 L (13.0-17.5) gm/dL Hct 35.6 L (39.0-53.0) % Sodium 134 L (137-145) mmol/L BUN 8 L (9-20) mg/dL Creatinine 0.51 L (0.66-1.25) mg/dL Glucose 102 H (74-99) mg/dL Assessment and Plan (1) Hyponatremia Current Visit: No Status: Acute Code(s): E87.1 - HYPO-OSMOLALITY AND HYPONATREMIA SNOMED Code(s): 01266295 (2) Migraine headache Current Visit: Yes Status: Acute Code(s): G43.909 - MIGRAINE, UNSP, NOT INTRACTABLE, WITHOUT STATUS MIGRAINOSUS SNOMED Code(s): 34677457 (3) Occipital neuritis Current Visit: Yes Status: Acute Code(s): M54.81 - OCCIPITAL NEURALGIA SNOMED Code(s): 22824509 (4) Acute encephalopathy Current Visit: Yes Status: Acute Code(s): G93.40 - ENCEPHALOPATHY, UNSPECIFIED SNOMED Code(s): 94999065 Plan: This patient is a 66-year-old male who is being treated for acute hyponatremia. His serum sodium today is 134. He is showing continuing improvement in terms of management of his hyponatremia. Dr. Collado is monitoring his condition very closely. He had been recommended to undergo occipital nerve block procedure with anesthesia and it is unclear whether they're planning to move forward with this procedure for him. At this time we would recommend he continue to use moist heat to the back of that and neck region daily. He may schedule for the nerve block to be done as outpatient if he is discharged home. We have discussed these findings today with the patient in detail. He does continue to show improvement in his overall condition. We will continue to monitor his progress closely during this admission.
[2017-06-08] MEDS: CARISOPRODOL 350 MG TAB PO PRN (22:56)
[2017-06-08] MEDS: ALPRAZolam 0.25 MG TAB PO PRN (22:56)
[2017-06-09 01:41] VITALS: RESP 16
[2017-06-09 07:55] VITALS: BP 162/81; PULSE 74; TEMP 98.2
[2017-06-09] MEDS: BUTA/APAP/CAF/COD 50-325-40-30 CAP PO PRN (08:19)
[2017-06-09] MEDS: QUEtiapine 25 MG TAB PO SCH (08:19)
[2017-06-09] MEDS: METOPROLOL TARTRATE 25 MG TAB PO SCH (08:19)
[2017-06-09] MEDS: ASPIRIN 81 MG PO SCH (08:19)
[2017-06-09] MEDS: ENOXAPARIN 40 MG/0.4 ML SYRINGE SQ SCH (08:19)
[2017-06-09] MEDS: PANTOPRAZOLE 40 MG TABLET PO SCH (08:19)
[2017-06-09] MEDS: BRIMONIDINE TARTRATE 0.2% DROPS 5 ML BTL BOTH EYES SCH (08:19)
[2017-06-09 09:28] LABS: HCT 36.9 % (39.0-53.0); HGB 12.7 gm/dL (13.0-17.5); MCH 30.9 pg (25.0-35.0); MCHC 34.3 g/dL (31.0-37.0); MCV 90.1 fL (80.0-100.0); Mean Platelet Volume 6.3; Platelet Count 345 k/uL (150-450); RDW 12.9 % (11.5-15.5); WBC 7.1 k/uL (3.8-10.6)
[2017-06-09 09:41] LABS: Blood Urea Nitrogen 8 mg/dL (9-20); Calcium 9.2 mg/dL (8.4-10.2); Carbon Dioxide 28 mmol/L (22-30); Glucose 127 mg/dL (74-99); Potassium 4.2 mmol/L (3.5-5.1); Sodium 137 mmol/L (137-145)
[2017-06-09 09:53] LABS: Anion Gap 12 mmol/L; Chloride 97 mmol/L (98-107)
--- NOTE | 2017-06-09 14:46 | P.PAINCN ---
History of Present Illness - Reason for Consult Consult date: 06/08/17 Chronic Migrane, possible Occipital Neuralgia - Chief Complaint Chronic headaches - History of Present Illness This is a 66-year-old male being seen as an initial inpatient consultation at the request of the neurology service. Patient was admitted for severe hyponatremia which has now resolved. We are asked to see the patient with regards to chronic migraine headaches and possible occipital neuralgia. Consulting service was requesting that we did occipital nerve block. Patient's chief complaint is chronic migraine headaches, he states he's had these headaches for decades, and that he is not seen a headache specialist regarding them. In discussion with the patient, he states his pain currently is about a 4 out of 10 in severity and located mostly in the frontal lobe along the eyes. At the time he denies any occipital-type pain or any radiating type pain originating from his neck or into the temporal lobes. Typical headaches occur 3 -5 times a month, in the past were more debilitating than they currently are, and usually resolves with rest and [id number] medication. Patient's PCP prescribes and Fioricet which he takes at the onset of the headaches, and he states that it helps to some degree. Patient has never complained of visual disturbances, photophobia, ringing in his ear, or altered mental status associated with his headaches. I advised him to follow-up with a neurologist who specializes in headaches as an outpatient in order to be fully evaluated in order to ascertain diagnosis and appropriate therapies as well as potential prophylactic medications that can be started. Past Medical History Past Medical History: Coronary Artery Disease (CAD), Chest Pain / Angina, Eye Disorder, GERD/Reflux, Hyperlipidemia, Hypertension, Myocardial Infarction (HI) , Osteoarthritis (OA) Additional Past Medical History / Comment(s): SVT with ablation, gastric ulcers , chronic duodenal stricture, bilateral glaucoma, sinusitis, migraines, anemia, esophagitis,hiatal hernia, chronic back pain, past fx ribs/sternum Last Myocardial Infarction Date:: 1999 History of Any Multi-Drug Resistant Organisms: None Reported Past Surgical History: Cardiac Ablation, Cholecystectomy, Heart Catheterization With Stent Additional Past Surgical History / Comment(s): sinus surgery, cataracts bilaterally with lens implants, EGDs/colonoscopies, Past Anesthesia/Blood Transfusion Reactions: No Reported Reaction Additional Past Anesthesia/Blood Transfusion Reaction / Comm: Pt has had past multiple transfusions without reaction. Date of Last Stent Placement:: 1999 Past Psychological History: No Psychological Hx Reported Additional Psychological History / Comment(s): Pt resides with his spouse. 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 He is independent. Smoking Status: Former smoker Past Alcohol Use History: None Reported Additional Past Alcohol Use History / Comment(s): Pt states he started smoking in 1993 and quit in 1999 Past Drug Use History: None Reported - Past Family History Father Additional Family Medical History / Comment(s): Father at the age of 68yrs from a ruptured aortic aneurysm. Mother Family Medical History: Hyperlipidemia, Hypertension Additional Family Medical History / Comment(s): Mother lived into her 80's. Medications and Allergies Home Medications Medication Instructions Recorded Confirmed Type ALPRAZolam [Xanax] 0.25 mg PO TID PRN 07/12/13 06/04/17 History Carisoprodol [Soma] 350 mg PO TID PRN 07/12/13 06/04/17 History Metoprolol Tartrate [Lopressor] 25 mg PO BID 07/12/13 06/04/17 History Simvastatin [Zocor] 40 mg PO HS 07/12/13 06/04/17 History Amitriptyline HCl 10 mg PO HS 01/26/16 06/04/17 History Nitroglycerin Sl Tabs [Nitrostat] 0.4 mg SUBLINGUAL Q5M PRN 01/28/16 06/04/17 History Brimonidine Tartrate [Alphagan P 1 drops BOTH EYES BID 02/20/16 06/04/17 History 0.2% Ophth Soln] Buta/APAP/Caf/Cod 80-928-21-30 1 cap PO Q8H PRN 02/20/16 06/04/17 History [Fioricet w/Cod 28-807-28-30MG] Latanoprost [Xalatan 0.005%] 1 drop BOTH EYES HS 02/20/16 06/04/17 History Ondansetron Odt [Zofran ODT] 4 mg PO Q8HR PRN #5 tab 02/21/16 06/04/17 Rx Pantoprazole Sodium 40 mg PO BID 06/26/16 06/04/17 History Metoclopramide [Reglan] 5 mg PO Q6H PRN 08/24/16 06/04/17 History Aspirin EC [Ecotrin Low Dose] 81 mg PO DAILY 06/04/17 06/04/17 History Dicyclomine [Bentyl] 10 mg PO TID PRN 06/04/17 06/04/17 History Allergies Allergy/AdvReac Type Severity Reaction Status Date / Time atorvastatin [From Lipitor] AdvReac Unknown Verified 06/04/17 21:13 Physical Exam Vitals: Vital Signs Temp Pulse Resp BP Pulse Ox 06/09/17 07:00 98.2 F 74 16 162/81 98 06/08/17 23:00 98.6 F 61 16 127/73 97 06/08/17 14:34 98.8 F 68 18 155/77 98 Intake and Output 06/08/17 06/09/17 06/09/17 22:59 06:59 14:59 Output Total 1400 550 550 Balance -1400 -550 -550 Output: Urine 1400 550 550 Other: Voiding Method Urinal # Voids 2 Weight 88.2 kg Results CBC & Chem 7: 06/09/17 08:50 06/09/17 08:50 Labs: Abnormal Lab Results - Last 24 Hours (Table) 06/09/17 06/09/17 Range/Units 08:50 08:50 RBC 4.10 L (4.30-5.90) m/uL Hgb 12.7 L (13.0-17.5) gm/dL Hct 36.9 L (39.0-53.0) % Chloride 97 L (98-107) mmol/L BUN 8 L (9-20) mg/dL Creatinine 0.57 L (0.66-1.25) mg/dL Glucose 127 H (74-99) mg/dL Assessment and Plan Assessment: #1 chronic frontal lobe headaches #2 potential occipital neuralgia #3 migraine headache without aura Plan: Currently, I don't feel that occipital nerve blocks provide any benefit this patient is currently not complaining of any occipital neuralgic type pain. Patient states that if he were to get occipital-type pain that is rare and does not occur and in the frequency as a frontal lobe headaches. I had a lengthy discussion with the patient regarding management of chronic migraines. I discussed with him the need to follow up with a headache specialist, to pursue other therapies such as prophylactic therapies, and potential acupuncture or Botox injections Time with Patient: Greater than 30 (55) PQRS Measure Charge Sheet PQRS Narrative: Smoking Status Former smoker Do You Want the Pneumonia Vaccine Up to Date Vaccine AT THIS TIME? Blood Pressure [Right Arm] 162/81 Blood Pressure [Left Arm] 148/78 Blood Pressure 102/54 Pain Intensity [Head] 8 Pain Intensity 0 Pain Scale Used Non Verbal Pain Indicator Scale Used asleep Home Medications: Ambulatory Orders ALPRAZolam [Xanax] 0.25 mg PO TID PRN 07/12/13 Carisoprodol [Soma] 350 mg PO TID PRN 07/12/13 Metoprolol Tartrate [Lopressor] 25 mg PO BID 07/12/13 Simvastatin [Zocor] 40 mg PO HS 07/12/13 Amitriptyline HCl 10 mg PO HS 01/26/16 Nitroglycerin Sl Tabs [Nitrostat] 0.4 mg SUBLINGUAL Q5M PRN 01/28/16 Brimonidine Tartrate [Alphagan P 0.2% Ophth Soln] 1 drops BOTH EYES BID Buta/APAP/Caf/Cod 14-508-62-30 [Fioricet w/Cod 32-545-01-30MG] 1 cap PO Q8H PRN 02/20/16 Latanoprost [Xalatan 0.005%] 1 drop BOTH EYES HS 02/20/16 Ondansetron Odt [Zofran ODT] 4 mg PO Q8HR PRN #5 tab 02/21/16 Pantoprazole Sodium 40 mg PO BID 06/26/16 Metoclopramide [Reglan] 5 mg PO Q6H PRN 08/24/16 Aspirin EC [Ecotrin Low Dose] 81 mg PO DAILY 06/04/17 Dicyclomine [Bentyl] 10 mg PO TID PRN 06/04/17
--- NOTE | 2017-06-10 18:19 | P.DS ---
Providers Date of admission: 06/04/17 22:57 Expected date of discharge: 06/09/17 Attending physician: Simone Tijerina Consults: 06/04/17 23:01 Consult Physician Routine Consulting Provider: Krupa Richards Consult Reason/Comments: icu Do you want consulting provider notified?: Yes 06/04/17 23:05 Consult Physician Routine Consulting Provider: Nayely Collado Consult Reason/Comments: hypoNa Do you want consulting provider notified?: Yes 06/05/17 10:49 Consult Physician Routine Consulting Provider: Isiah Marcus Consult Reason/Comments: abd pain and vomiting Do you want consulting provider notified?: Yes Consult Physician Routine Consulting Provider: Ana Deutsch Consult Reason/Comments: severe migraine symptoms Do you want consulting provider notified?: Yes 06/05/17 17:07 Consult Physician Routine Consulting Provider: Dallin Aquino Consult Reason/Comments: chest pain Do you want consulting provider notified?: Yes 06/08/17 07:00 Consult to Anesthesia Urgent Consulting Provider: Anesthesia,Services Consult Reason/Comments: Bilateral occipital nerve block procedure. Primary care physician: [facility] Course: Final Diagnoses: 1. Hypovolemic hyponatremia, initially. 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 Acute metabolic encephalopathy, sensorium improved 3. Chronic nausea and vomiting secondary to duodenal strictures 4. Chronic migraine cephalgia, occipital neuritis 5. Atypical chest discomfort, resolved in a patient with CAD, history of stent. Outpatient stress test as per cardiology. Hospital course: This is a 66-year-old gentleman with history of duodenal stricture, initially admitted with hypovolemic hyponatremia, now euvolemic possibly from SIADH, chronic migraine cephalgia and multiple other medical issues. Multiple admissions with hyponatremia, treated as SIADH as well as hypovolemia related. On admission sodium 112 .initially received IV fluid hydration of 0.9 normal saline, followed by 3% saline.Sodium continued to improve, increasing up to 138-IV fluids changed to D5W. Sodium continued to improve, placed on fluid restrictions. No further nausea ,vomiting or diarrhea. Evaluated by sap director, nephrology, surgery, neurology , cardiology, pain management services . Sensorium significantly improved. Significant clinical improvement. Evaluated by pain management for potential occipital block, no block recommended at this time. Patient has been cleared by all consults for discharge. Patient is being discharged home in a stable condition with guarded prognosis. Physical Exam:VSS, alert and oriented 3, no acute distress. CV: Regular S1 and S2.LUNGS: Bilateral bases diminished, no rhonchi, no crackles, no wheezing.ABD: Soft nontender positive bowel sounds.NERVOUS: No focal deficits. The impression and plan of care has been dictated as directed. : I performed a history and examination of this patient, discussed the same with the dictator. I agree with the dictator's note ,documented as a scribe. Any additional findings or plans will be noted. Time taken: 35 minutes Patient Condition at Discharge: Stable Plan - Discharge Summary Discharge Rx Participant: Yes New Discharge Prescriptions: Continue Simvastatin [Zocor] 40 mg PO HS Carisoprodol [Soma] 350 mg PO TID PRN PRN Reason: Pain ALPRAZolam [Xanax] 0.25 mg PO TID PRN PRN Reason: Anxiety Metoprolol Tartrate [Lopressor] 25 mg PO BID Amitriptyline HCl 10 mg PO HS Nitroglycerin Sl Tabs [Nitrostat] 0.4 mg SUBLINGUAL Q5M PRN PRN Reason: Chest Pain Latanoprost [Xalatan 0.005%] 1 drop BOTH EYES HS Buta/APAP/Caf/Cod 29-907-24-30 [Fioricet w/Cod 60-428-75-30MG] 1 cap PO Q8H PRN PRN Reason: Headache Brimonidine Tartrate [Alphagan P 0.2% Ophth Soln] 1 drops BOTH EYES BID Ondansetron Odt [Zofran ODT] 4 mg PO Q8HR PRN #5 tab PRN Reason: Nausea Pantoprazole Sodium 40 mg PO BID Metoclopramide [Reglan] 5 mg PO Q6H PRN PRN Reason: Nausea Dicyclomine [Bentyl] 10 mg PO TID PRN PRN Reason: Gi Upset Aspirin EC [Ecotrin Low Dose] 81 mg PO DAILY Discontinued Quinapril HCl [Accupril] 10 mg PO BID Discharge Medication List ALPRAZolam [Xanax] 0.25 mg PO TID PRN 07/12/13 [History] Carisoprodol [Soma] 350 mg PO TID PRN 07/12/13 [History] Metoprolol Tartrate [Lopressor] 25 mg PO BID 07/12/13 [History] Simvastatin [Zocor] 40 mg PO HS 07/12/13 [History] Amitriptyline HCl 10 mg PO HS 01/26/16 [History] Nitroglycerin Sl Tabs [Nitrostat] 0.4 mg SUBLINGUAL Q5M PRN 01/28/16 [History] Brimonidine Tartrate [Alphagan P 0.2% Ophth Soln] 1 drops BOTH EYES BID [History] Buta/APAP/Caf/Cod 61-270-08-30 [Fioricet w/Cod 87-330-84-30MG] 1 cap PO Q8H PRN 02/20/16 [History] Latanoprost [Xalatan 0.005%] 1 drop BOTH EYES HS 02/20/16 [History] Ondansetron Odt [Zofran ODT] 4 mg PO Q8HR PRN #5 tab 02/21/16 [Rx] Pantoprazole Sodium 40 mg PO BID 06/26/16 [History] Metoclopramide [Reglan] 5 mg PO Q6H PRN 08/24/16 [History] Aspirin EC [Ecotrin Low Dose] 81 mg PO DAILY 06/04/17 [History] Dicyclomine [Bentyl] 10 mg PO TID PRN 06/04/17 [History] Follow up Appointment(s)/Referral(s): pain clinic, Dr. Healy [Other] - As Needed (After appointment with Dr Christianson , if nerve block planned, get referral and MRI prior to appointment with Dr. Benny larson. ) Nayely Collado MD [STAFF PHYSICIAN] - 1 Week (Pt to schedule appointment. ) Terence Deutsch MD [STAFF PHYSICIAN] - As Needed (No need for follow up at this time per Dr Deutsch.) Napoleon Tracey MD [STAFF PHYSICIAN] - 3 Days (Per office, you need to call and schedule appointment. Also need to discuss options for headache with primary Dr and possibility for occipital nerve block. If it is planned to have block, you must get referral from Dr Tracey and have and MRI prior to appointment. ) Ambulatory/Diagnostic Orders: Complete Blood Count w/diff [LAB.AMB] Time Frame: 3 Days, Location: Determined By Patient Patient Instructions/Handouts: High Protein Diet (GEN), Hyponatremia (GEN) Activity/Diet/Wound Care/Special Instructions: Diet: high Protein. Activity: limited until follow up. Discharge Disposition: HOME SELF-CARE
== END 2017-06-09 14:50 | disposition home or self-care (01) | DRG 643 ==
LOC: EC 20:40 → 6ICU 22:57 → 4MS4W 06-07 13:53
PROVIDERS: ADMIT Hospitalist; ATTEND Hospitalist
DX: E22.2 Syndrome of inappropriate secretion of antidiuretic hormone (principal); G93.41 Metabolic encephalopathy; E87.2 Acidosis; K31.5 Obstruction of duodenum; K56.7 Ileus, unspecified; E78.00 Pure hypercholesterolemia, unspecified; E78.5 Hyperlipidemia, unspecified; E86.0 Dehydration; E86.1 Hypovolemia; F28 Other psychotic disorder not due to a substance or known physiological condition; G43.909 Migraine, unspecified, not intractable, without status migrainosus; G89.29 Other chronic pain; H40.9 Unspecified glaucoma; I10 Essential (primary) hypertension; I25.10 Atherosclerotic heart disease of native coronary artery without angina pectoris; I25.2 Old myocardial infarction; K21.9 Gastro-esophageal reflux disease without esophagitis; K44.9 Diaphragmatic hernia without obstruction or gangrene; M47.9 Spondylosis, unspecified; M54.81 Occipital neuralgia; Z79.82 Long term (current) use of aspirin; Z79.899 Other long term (current) drug therapy; Z82.49 Family history of ischemic heart disease and other diseases of the circulatory system; Z87.11 Personal history of peptic ulcer disease; Z87.891 Personal history of nicotine dependence; Z90.49 Acquired absence of other specified parts of digestive tract; Z95.5 Presence of coronary angioplasty implant and graft; Z96.1 Presence of intraocular lens; Z88.8 Allergy status to other drugs, medicaments and biological substances; Z98.42 Cataract extraction status, left eye; Z98.41 Cataract extraction status, right eye; T50.905A Adverse effect of unspecified drugs, medicaments and biological substances, initial encounter
CPT/HCPCS: 36415; 70450; 71046; 74022; 80048; 80053; 80061; 81001; 82550; 82553; 83735; 83930; 83935; 84295; 84300; 84443; 84484; 84550; 85025; 85027; 85379; 85610; 85730; 87086; 93005; 93306; 96361; 96374; 96375; 99285

== ENCOUNTER → 2017-06-15 | Outpatient (CLI) | payer MEDICARE ==
[2017-06-15 14:25] LABS: Basophils % (A) 1 %; Eosinophils # (A) 0.2 k/uL (0-0.7); Eosinophils % (A) 2 %; HCT 37.6 % (39.0-53.0); HGB 13.1 gm/dL (13.0-17.5); Lymphocytes % (A) 22 %; MCH 30.1 pg (25.0-35.0); MCHC 34.8 g/dL (31.0-37.0); MCV 86.6 fL (80.0-100.0); Monocytes # (A) 0.8 k/uL (0-1.0); Monocytes % (A) 9 %; Neutrophils % (A) 66 %; Platelet Count 392 k/uL (150-450); RBC 4.34 m/uL (4.30-5.90); RDW 12.3 % (11.5-15.5); WBC 9.1 k/uL (3.8-10.6)
[2017-06-15 14:37] LABS: Anion Gap 15 mmol/L; Blood Urea Nitrogen 9 mg/dL (9-20); Calcium 9.2 mg/dL (8.4-10.2); Carbon Dioxide 20 mmol/L (22-30); Chloride 89 mmol/L (98-107); Glucose 112 mg/dL (74-99); Potassium 4.4 mmol/L (3.5-5.1); Sodium 124 mmol/L (137-145)
== END | disposition home or self-care (01) ==
LOC: LABWHC1 13:56
PROVIDERS: ATTEND Nurse Practitioner
DX: E87.1 Hypo-osmolality and hyponatremia (principal)
CPT/HCPCS: 36415; 80048; 85025

== ENCOUNTER → 2017-06-19 | Outpatient (CLI) | payer MEDICARE ==
[2017-06-19 12:24] LABS: Anion Gap 16 mmol/L; Blood Urea Nitrogen 12 mg/dL (9-20); Calcium 9.4 mg/dL (8.4-10.2); Carbon Dioxide 21 mmol/L (22-30); Chloride 96 mmol/L (98-107); Glucose 115 mg/dL (74-99); Potassium 4.4 mmol/L (3.5-5.1); Sodium 133 mmol/L (137-145)
== END | disposition home or self-care (01) ==
LOC: LABWHC1 11:22
PROVIDERS: ATTEND Nurse Practitioner Family
DX: E87.1 Hypo-osmolality and hyponatremia (principal)
CPT/HCPCS: 36415; 80048

== ENCOUNTER → 2017-06-23 | Outpatient (CLI) | payer MEDICARE ==
[2017-06-23 13:39] LABS: Potassium 4.1 mmol/L (3.5-5.1)
== END | disposition home or self-care (01) ==
LOC: LABWHC1 12:52
PROVIDERS: ATTEND Nurse Practitioner Family
DX: E87.1 Hypo-osmolality and hyponatremia (principal)
CPT/HCPCS: 36415; 80051

== ENCOUNTER 2018-01-27 07:47 | Inpatient (IN) | payer MEDICARE ==
[2018-01-27] MEDS ORDERED: SODIUM CHLORIDE 0.9% 1,000 ML IV STA (08:16)
[2018-01-27] MEDS ORDERED: ONDANSETRON 4 MG/2 ML VIAL IVP STA (08:21)
--- NOTE | 2018-01-27 08:52 | ED ---
Nausea/Vomiting/Diarrhea HPI - General Chief complaint: Nausea/Vomiting/Diarrhea Stated complaint: nausea, vomiting Time Seen by Provider: 01/27/18 08:10 Source: patient, EMS, RN notes reviewed Mode of arrival: EMS Limitations: no limitations - History of Present Illness Initial comments: This a 67-year-old male presents emergency Department chief complaint of epigastric pain. Patient states that he started with pain and nausea vomiting on Thursday. Patient states symptoms have been persistent. Patient denies fever , chills, dizziness, diarrhea or constipation. Patient states he has a headache feels, dehydrated. Patient states that the pain did radiate into his chest and made her feel short of breath. He has no shortness of breath no current chest pain. Patient denies any melena, hematochezia, hematemesis or coffee-ground emesis. Patient does have a known hiatal hernia and gastritis. Patient had EGDs in the past. - Related Data Home Medications Medication Instructions Recorded Confirmed Metoprolol Tartrate [Lopressor] 25 mg PO BID 07/12/13 01/27/18 Simvastatin [Zocor] 40 mg PO HS 07/12/13 01/27/18 Amitriptyline HCl 10 mg PO HS 01/26/16 01/27/18 Brimonidine Tartrate [Alphagan P 1 drops BOTH EYES BID 02/20/16 01/27/18 0.2% Ophth Soln] Pantoprazole Sodium 40 mg PO DAILY 06/26/16 01/27/18 Metoclopramide [Reglan] 5 mg PO QID 08/24/16 01/27/18 Dicyclomine [Bentyl] 10 mg PO TID 06/04/17 01/27/18 Bimatoprost [Lumigan .01% Ophth 1 drop BOTH EYES DAILY 01/27/18 01/27/18 Soln] Butalb/Acetaminophen/Caffeine 1 cap PO Q4H PRN 01/27/18 01/27/18 [Fioricet 50-300-40 mg Capsule] Dorzolamide-Timol 2.23%/0.68% 1 drop BOTH EYES BID 01/27/18 01/27/18 [Cosopt] Ondansetron HCl [Zofran] 4 mg PO BID PRN 01/27/18 01/27/18 Sodium Chloride Tab 1 gm PO DAILY 01/27/18 01/27/18 Allergies Allergy/AdvReac Type Severity Reaction Status Date / Time atorvastatin [From Lipitor] AdvReac MUSCLE Verified 01/27/18 08:21 CRAMPS Review of Systems ROS Statement: Those systems with pertinent positive or pertinent negative responses have been documented in the HPI. ROS Other: All systems not noted in ROS Statement are negative. Past Medical History Past Medical History: Coronary Artery Disease (CAD), Chest Pain / Angina, Eye Disorder, GERD/Reflux, Hyperlipidemia, Hypertension, Myocardial Infarction ([place]) , Osteoarthritis (OA) Additional Past Medical History / Comment(s): SVT with ablation, gastric ulcers , chronic duodenal stricture, bilateral glaucoma, sinusitis, migraines, anemia, esophagitis,hiatal hernia, chronic back pain, past fx ribs/sternum Last Myocardial Infarction Date:: 1999 History of Any Multi-Drug Resistant Organisms: None Reported Past Surgical History: Cardiac Ablation, Cholecystectomy, Heart Catheterization With Stent Additional Past Surgical History / Comment(s): sinus surgery, cataracts bilaterally with lens implants, EGDs/colonoscopies, Past Anesthesia/Blood Transfusion Reactions: No Reported Reaction Additional Past Anesthesia/Blood Transfusion Reaction / Comment(s): Pt has had past multiple transfusions without reaction. Date of Last Stent Placement:: 1999 Past Psychological History: No Psychological Hx Reported Smoking Status: Former smoker Past Alcohol Use History: None Reported Past Drug Use History: None Reported - Past Family History Father Additional Family Medical History / Comment(s): Father at the age of 68yrs from a ruptured aortic aneurysm. Mother Family Medical History: Hyperlipidemia, Hypertension Additional Family Medical History / Comment(s): Mother lived into her 80's. General Exam Limitations: no limitations General appearance: alert, in no apparent distress Head exam: Present: atraumatic, normocephalic, normal inspection Eye exam: Present: normal appearance, PERRL, EOMI. Absent: scleral icterus, conjunctival injection, periorbital swelling ENT exam: Present: normal exam, normal oropharynx, mucous membranes moist Neck exam: Present: normal inspection, full ROM. Absent: tenderness, meningismus, lymphadenopathy Respiratory exam: Present: normal lung sounds bilaterally. Absent: respiratory distress, wheezes, rales, rhonchi, stridor Cardiovascular Exam: Present: regular rate, normal rhythm, normal heart sounds. Absent: systolic murmur, diastolic murmur, rubs, gallop, clicks GI/Abdominal exam: Present: soft, tenderness (Moderate epigastric tenderness), normal bowel sounds. Absent: distended, guarding, rebound, rigid Back exam: Absent: CVA tenderness (R), CVA tenderness (L) Neurological exam: Present: alert, oriented X3, CN II-XII intact Skin exam: Present: warm, dry, intact, normal color. Absent: rash Course Vital Signs 01/27/18 01/27/18 01/27/18 07:50 07:53 08:00 Temperature 98.0 F Pulse Rate 61 Respiratory 20 18 18 Rate Blood Pressure 180/95 180/95 O2 Sat by Pulse 98 98 Oximetry 01/27/18 01/27/18 01/27/18 08:30 09:00 09:30 Temperature Pulse Rate Respiratory 18 18 18 Rate Blood Pressure 172/95 159/93 150/93 O2 Sat by Pulse 94 L 99 Oximetry 01/27/18 01/27/18 01/27/18 10:00 10:30 11:00 Temperature Pulse Rate Respiratory 18 18 18 Rate Blood Pressure 173/90 164/92 167/97 O2 Sat by Pulse 98 96 Oximetry 01/27/18 11:30 Temperature Pulse Rate Respiratory Rate Blood Pressure 159/91 O2 Sat by Pulse Oximetry Medical Decision Making - Medical Decision Making 67-year-old male present emergency from for epigastric discomfort. Patient has had known gastritis and prior esophageal stricture. Patient had CT labwork EKG which shows gastritis and CT. Patient will be admitted for dehydration, severe gastritis, repeat troponin. - Lab Data Result diagrams: 01/27/18 09:17 01/27/18 09:17 Lab Results 01/27/18 01/27/18 01/27/18 Range/Units 09:17 09:17 09:17 WBC 7.0 (3.8-10.6) k/uL RBC 4.37 (4.30-5.90) m/uL Hgb 13.4 (13.0-17.5) gm/dL Hct 38.8 L (39.0-53.0) % MCV 88.9 (80.0-100.0) fL MCH 30.6 (25.0-35.0) pg MCHC 34.4 (31.0-37.0) g/dL RDW 12.5 (11.5-15.5) % Plt Count 331 (150-450) k/uL Neutrophils % 61 % Lymphocytes % 22 % Monocytes % 11 % Eosinophils % 3 % Basophils % 0 % Neutrophils # 4.3 (1.3-7.7) k/uL Lymphocytes # 1.6 (1.0-4.8) k/uL Monocytes # 0.8 (0-1.0) k/uL Eosinophils # 0.2 (0-0.7) k/uL Basophils # 0.0 (0-0.2) k/uL PT (9.0-12.0) sec INR (<1.2) APTT (22.0-30.0) sec Sodium 125 L (137-145) mmol/L Potassium 3.9 (3.5-5.1) mmol/L Chloride 91 L (98-107) mmol/L Carbon Dioxide 23 (22-30) mmol/L Anion Gap 11 mmol/L BUN 6 L (9-20) mg/dL Creatinine 0.61 L (0.66-1.25) mg/dL Est GFR (CKD-EPI)AfAm >90 (>60 ml/min/1.73 sqM) Est GFR (CKD-EPI)NonAf >90 (>60 ml/min/1.73 sqM) Glucose 116 H (74-99) mg/dL Plasma Lactic Acid Ney 1.0 (0.7-2.0) mmol/L Calcium 8.7 (8.4-10.2) mg/dL Total Bilirubin 0.4 (0.2-1.3) mg/dL AST 18 (17-59) U/L ALT 27 (21-72) U/L Alkaline Phosphatase 69 (38-126) U/L Troponin I (0.000-0.034) ng/mL Total Protein 6.7 (6.3-8.2) g/dL Albumin 3.9 (3.5-5.0) g/dL Amylase 40 (30-110) U/L Lipase 92 (23-300) U/L Urine Color Urine Appearance (Clear) Urine pH (5.0-8.0) Ur Specific Colver (1.001-1.035) Urine Protein (Negative) Urine Glucose (UA) (Negative) Urine Ketones (Negative) Urine Blood (Negative) Urine Nitrite (Negative) Urine Bilirubin (Negative) Urine Urobilinogen (<2.0) mg/dL Ur Leukocyte Esterase (Negative) 01/27/18 01/27/18 01/27/18 Range/Units 09:17 09:17 09:17 WBC (3.8-10.6) k/uL RBC (4.30-5.90) m/uL Hgb (13.0-17.5) gm/dL Hct (39.0-53.0) % MCV (80.0-100.0) fL MCH (25.0-35.0) pg MCHC (31.0-37.0) g/dL RDW (11.5-15.5) % Plt Count (150-450) k/uL Neutrophils % % Lymphocytes % % Monocytes % % Eosinophils % % Basophils % % Neutrophils # (1.3-7.7) k/uL Lymphocytes # (1.0-4.8) k/uL Monocytes # (0-1.0) k/uL Eosinophils # (0-0.7) k/uL Basophils # (0-0.2) k/uL PT 10.1 (9.0-12.0) sec INR 1.0 (<1.2) APTT 28.2 (22.0-30.0) sec Sodium (137-145) mmol/L Potassium (3.5-5.1) mmol/L Chloride (98-107) mmol/L Carbon Dioxide (22-30) mmol/L Anion Gap mmol/L BUN (9-20) mg/dL Creatinine (0.66-1.25) mg/dL Est GFR (CKD-EPI)AfAm (>60 ml/min/1.73 sqM) Est GFR (CKD-EPI)NonAf (>60 ml/min/1.73 sqM) Glucose (74-99) mg/dL Plasma Lactic Acid Ney (0.7-2.0) mmol/L Calcium (8.4-10.2) mg/dL Total Bilirubin (0.2-1.3) mg/dL AST (17-59) U/L ALT (21-72) U/L Alkaline Phosphatase (38-126) U/L Troponin I <0.012 (0.000-0.034) ng/mL Total Protein (6.3-8.2) g/dL Albumin (3.5-5.0) g/dL Amylase (30-110) U/L Lipase (23-300) U/L Urine Color Light Yellow Urine Appearance Clear (Clear) Urine pH 7.0 (5.0-8.0) Ur Specific Colver 1.009 (1.001-1.035) Urine Protein Negative (Negative) Urine Glucose (UA) Negative (Negative) Urine Ketones Negative (Negative) Urine Blood Negative (Negative) Urine Nitrite Negative (Negative) Urine Bilirubin Negative (Negative) Urine Urobilinogen <2.0 (<2.0) mg/dL Ur Leukocyte Esterase Negative (Negative) 01/27/18 11:15 EKG performed at 19:12 normal sinus rhythm with rate of 60 OR interval 204 QRS 88 QT/QTC 438/438 Disposition Clinical Impression: Hyponatremia, Dehydration, Gastritis, Nausea & vomiting, Abdominal pain, Atypical chest pain Disposition: ADMITTED IP TO THIS HOSP
[2018-01-27 09:42] LABS: Basophils % (A) 0 %; Eosinophils # (A) 0.2 k/uL (0-0.7); Eosinophils % (A) 3 %; HCT 38.8 % (39.0-53.0); HGB 13.4 gm/dL (13.0-17.5); Lymphocytes # (A) 1.6 k/uL (1.0-4.8); Lymphocytes % (A) 22 %; MCH 30.6 pg (25.0-35.0); MCHC 34.4 g/dL (31.0-37.0); MCV 88.9 fL (80.0-100.0); Mean Platelet Volume 5.8; Monocytes # (A) 0.8 k/uL (0-1.0); Monocytes % (A) 11 %; Neutrophils # (A) 4.3 k/uL (1.3-7.7); Neutrophils % (A) 61 %; Platelet Count 331 k/uL (150-450); RBC 4.37 m/uL (4.30-5.90); RDW 12.5 % (11.5-15.5)
[2018-01-27 09:52] LABS: Prothrombin Time 10.1 sec (9.0-12.0)
[2018-01-27 09:53] LABS: Partial Thromboplastin Time 28.2 sec (22.0-30.0)
[2018-01-27 09:57] LABS: ALT 27 U/L (21-72); AST 18 U/L (17-59); Albumin 3.9 g/dL (3.5-5.0); Alkaline Phosphatase 69 U/L (38-126); Amylase 40 U/L (30-110); Anion Gap 11 mmol/L; Blood Urea Nitrogen 6 mg/dL (9-20); Calcium 8.7 mg/dL (8.4-10.2); Carbon Dioxide 23 mmol/L (22-30); Chloride 91 mmol/L (98-107); Glucose 116 mg/dL (74-99); Lipase 92 U/L (23-300); Potassium 3.9 mmol/L (3.5-5.1); Sodium 125 mmol/L (137-145); Total Bilirubin 0.4 mg/dL (0.2-1.3); Total Protein 6.7 g/dL (6.3-8.2)
[2018-01-27] MEDS ORDERED: MORPHINE SULFATE 2 MG/ML SYRINGE IVP ONE (10:08)
[2018-01-27] MEDS ORDERED: MAG HYDROX/AL HYDROX/SIMETH 30 ML, HYOSCYAMINE ELIXIR 10 ML, CIMETIDINE HCL 300 MG, LID... PO STA ×4 (10:08)
--- NOTE | 2018-01-27 10:33 | CT ---
EXAMINATION TYPE: CT abdomen pelvis w con DATE OF EXAM: 01/27/2018 COMPARISON: 07/23/2016 HISTORY: 67-year-old male Stomach pains since Thursday TECHNIQUE: Contiguous axial scanning of the abdomen and pelvis following administration of 100 ml Iso mohsen 300 IV contrast. Delayed images through the kidneys and coronal/sagittal reconstructions perform ed. CT DLP: 828.9 mGycm Automated exposure control for dose reduction was used. FINDINGS: Heart normal size without pericardial effusion. Ectatic, mildly aneurysmal aortic root at 4 .1 cm. Tiny hiatal hernia. Strandy atelectasis at the left lung base. No pleural effusion. Liver borderline to mildly enlarged at 18.0 cm. Somewhat early phase of postcontrast imaging for opti mal assessment as to if there is underlying fatty infiltration. Portal venous system is patent. No bi liary ductal dilatation. Gallbladder surgically absent. Adrenal glands, spleen, and pancreas appear within normal limits. There is a 1.3 cm cyst lower pole right kidney and 3.5 cm cyst central left kidney. Symmetric uptake and excretion of contrast from both kidneys. Difficult to exclude diffuse gastric fold thickening. No dilated small bowel, free fluid, or free air. Normal appendix. Mild scattered stool. Mild colonic diverticulosis in the transverse and mid sigmoid colon. Circumferential wall thickening and a long segment involving the mid to distal sigmoid may rel ate to incomplete distention. This was also seen on 07/23/2016. Bladder urine distended. Prostate gland is enlarged measuring 5.7 cm wide. No abnormal fluid collecti on in the pelvis or pelvic lymphadenopathy Bones: Degenerative changes at the hips and lower lumbar spine. No osseous destructive process. IMPRESSION: 1. CORRELATE FOR POSSIBLE GASTRITIS GIVEN THE APPEARANCE OF DIFFUSE GASTRIC FOLD THICKENING. 2. BORDERLINE TO MILDLY ENLARGED LIVER (18.0 CM). 3. LONG SEGMENT MILD CIRCUMFERENTIAL WALL THICKENING OF THE MID TO DISTAL SIGMOID COULD REPRESENT INC OMPLETE DISTENTION OR NONSPECIFIC MILD COLITIS. 4. PROSTATOMEGALY (5.7 CM WIDE). 5. TINY HIATAL HERNIA. A FEW SCATTERED COLONIC DIVERTICULA IN THE TRANSVERSE COLON AND MID SIGMOID. 6 . INCIDENTALLY, THE AORTIC ROOT MEASURES MILDLY ANEURYSMAL AT 4.1 CM ON THE FIRST AXIAL IMAGE.
[2018-01-27] MEDS ORDERED: ONDANSETRON 4 MG/2 ML VIAL IVP PRN (11:13)
[2018-01-27] MEDS ORDERED: ACETAMINOPHEN TAB 325 MG TAB PO PRN (11:13)
[2018-01-27] MEDS ORDERED: NALOXONE 0.4 MG/ML 1 ML VIAL IV PRN (11:13)
[2018-01-27] MEDS: SODIUM CHLORIDE 0.9% 1,000 ML IV SCH (11:20)
[2018-01-27 11:33] LABS: Appearance,Urine Clear (Clear); Bilirubin,Urine Negative (Negative); Blood,Urine Negative (Negative); Color,Urine Light Yellow; Glucose,Urine (UA) Negative (Negative); Ketones,Urine Negative (Negative); Leukocyte Esterase,Urine Negative (Negative); Nitrite,Urine Negative (Negative); Protein,Urine Negative (Negative); Specific Gravity,Urine 1.009 (1.001-1.035); Urobilinogen,Urine <2.0 mg/dL (<2.0)
[2018-01-27] MEDS ORDERED: BUTALB/APAP/CAFF 50-325-40MG TAB PO PRN (16:10)
[2018-01-27] MEDS: ONDANSETRON 4 MG/2 ML VIAL IVP PRN (16:23)
[2018-01-27] MEDS: MORPHINE SULFATE 2 MG/ML SYRINGE IVP PRN ×2 (16:23→20:50)
[2018-01-27] MEDS: METOCLOPRAMIDE 5 MG TAB PO SCH ×2 (18:08→21:51)
[2018-01-27] MEDS: DICYCLOMINE 10 MG CAP PO SCH (20:50)
[2018-01-27] MEDS: METOPROLOL TARTRATE 25 MG TAB PO SCH (20:51)
[2018-01-27] MEDS: AMITRIPTYLINE HCL 10 MG TAB PO SCH (20:51)
[2018-01-27] MEDS: ATORVASTATIN 20 MG TAB PO SCH (20:51)
[2018-01-27] MEDS: PANTOPRAZOLE 40 MG/10 ML VIAL IV SCH (20:51)
[2018-01-27] MEDS: DORZOLAMIDE-TIMOLOL 2.23%/0.68 10ML BTL BOTH EYES SCH (20:52)
[2018-01-27] MEDS: BRIMONIDINE TARTRATE 0.2% DROPS 5 ML BTL BOTH EYES SCH (20:52)
[2018-01-27 21:36] LABS: Anion Gap 10 mmol/L; Blood Urea Nitrogen 6 mg/dL (9-20); Calcium 9.5 mg/dL (8.4-10.2); Carbon Dioxide 24 mmol/L (22-30); Chloride 99 mmol/L (98-107); Glucose 99 mg/dL (74-99); Potassium 4.3 mmol/L (3.5-5.1); Sodium 133 mmol/L (137-145)
[2018-01-28] MEDS: MORPHINE SULFATE 2 MG/ML SYRINGE IVP PRN ×4 (02:56→23:18)
[2018-01-28] MEDS: ONDANSETRON 4 MG/2 ML VIAL IVP PRN ×4 (02:58→23:17)
[2018-01-28 04:49] LABS: Basophils % (A) 1 %; Eosinophils # (A) 0.1 k/uL (0-0.7); Eosinophils % (A) 2 %; HCT 40.3 % (39.0-53.0); HGB 13.4 gm/dL (13.0-17.5); Lymphocytes # (A) 1.4 k/uL (1.0-4.8); Lymphocytes % (A) 21 %; MCH 30.2 pg (25.0-35.0); MCHC 33.3 g/dL (31.0-37.0); MCV 90.8 fL (80.0-100.0); Monocytes # (A) 0.8 k/uL (0-1.0); Monocytes % (A) 11 %; Neutrophils # (A) 4.4 k/uL (1.3-7.7); Neutrophils % (A) 64 %; Platelet Count 331 k/uL (150-450); RBC 4.44 m/uL (4.30-5.90); RDW 12.8 % (11.5-15.5); WBC 6.9 k/uL (3.8-10.6)
[2018-01-28 05:03] LABS: Anion Gap 8 mmol/L; Blood Urea Nitrogen 6 mg/dL (9-20); Calcium 9.3 mg/dL (8.4-10.2); Carbon Dioxide 23 mmol/L (22-30); Chloride 105 mmol/L (98-107); Glucose 110 mg/dL (74-99); Potassium 4.5 mmol/L (3.5-5.1); Sodium 136 mmol/L (137-145)
[2018-01-28] MEDS: SODIUM CHLORIDE 0.9% 1,000 ML IV SCH ×2 (05:14→13:56)
[2018-01-28] MEDS: PANTOPRAZOLE 40 MG/10 ML VIAL IV SCH ×2 (07:31→21:19)
[2018-01-28] MEDS: DICYCLOMINE 10 MG CAP PO SCH ×3 (07:32→21:20)
[2018-01-28] MEDS: LATANOPROST 0.005% OPHTH DROPS 2.5 ML BTL BOTH EYES SCH (07:32)
[2018-01-28] MEDS: DORZOLAMIDE-TIMOLOL 2.23%/0.68 10ML BTL BOTH EYES SCH ×2 (07:32→21:21)
[2018-01-28] MEDS: SODIUM CHLORIDE TAB 1 GM TAB PO SCH (07:32)
[2018-01-28] MEDS: BRIMONIDINE TARTRATE 0.2% DROPS 5 ML BTL BOTH EYES SCH ×2 (07:32→21:21)
[2018-01-28] MEDS: METOPROLOL TARTRATE 25 MG TAB PO SCH ×2 (07:32→21:20)
[2018-01-28] MEDS: METOCLOPRAMIDE 5 MG TAB PO SCH ×4 (07:33→21:20)
--- NOTE | 2018-01-28 10:51 | FL ---
EXAMINATION TYPE: FL barium swallow w SBFT DATE OF EXAM: 01/28/2018 CLINICAL HISTORY: History of esophageal stricture, hiatal hernia, ulcer, cholecystectomy with complai nt of nausea, vomiting and distal esophageal pain. TECHNIQUE: A double contrast esophagram is performed utilizing air and barium. Subsequently a small bowel follow-through was performed with further administration of barium. A total of 2.41 minutes of fluoroscopic time was utilized during procedure. 64 fluoroscopic images were saved. COMPARISON: None FINDINGS: Wrapper Leaf Inspector image demonstrates cholecystectomy clips in the right upper quadrant and a nonobstruc tive bowel gas pattern. There is an incomplete stricture of the distal esophagus just proximal to the gastroesophageal juncti on that is mild with dilatation after administration of large bolus contrast. The esophagus shows abn ormal motility in the supine position with tertiary contractions seen and delayed emptying into the s tomach. Small hiatal hernia is present. Mild gastroesophageal reflux was seen during real time perfor rodolfo of this study as well as moderate intraesophageal reflux. Wrapper Leaf Inspector image of the abdomen shows no gross abnormality. The small bowel study shows normal transit to the colon in less than 70 minutes. There is a normal mucosal fold pattern throughout the small bowel . There is no evidence of any stricture or filling defect noted. The terminal ileum is spotted and appears unremarkable. IMPRESSION: 1. Mild incomplete stricture of the distal esophagus just proximal to the gastroesophageal junction. No esophageal dilatation or obstruction. 2. Small hiatal hernia. 3. Moderate intraesophageal reflux and mild gastroesophageal reflux. 4. Abnormal esophageal motility. Tertiary contractions in the gravity independent portion of the exam likely relate to presbyesophagus rather than neuromuscular disorder. 5. Unremarkable small bowel follow-through with normal transit time.
[2018-01-28 13:10] LABS: Anion Gap 8 mmol/L; Blood Urea Nitrogen 7 mg/dL (9-20); Calcium 8.9 mg/dL (8.4-10.2); Carbon Dioxide 26 mmol/L (22-30); Chloride 104 mmol/L (98-107); Glucose 117 mg/dL (74-99); Potassium 4.2 mmol/L (3.5-5.1); Sodium 138 mmol/L (137-145)
--- NOTE | 2018-01-28 13:37 | P.HPIM ---
History of Present Illness H&P Date: 01/27/18 Chief Complaint: nausea , vomiting Mr. Barbosa is a 67 years old male known to me as a clinic patient ( seen in the clinic once) with past medical history of coronary artery disease status post stenting, SVT status post ablation, history of gastric ulcers, chronic duodenal stricture EGD in 2016 suggested stable duodenal stricture, patient sees Dr. Hickman for the same last seen 6 months ago, last admitted in May 2017 for hypovolemic hyponatremia from nausea and vomiting with the complaint of SIADH. Patient does have severe cervicalgia and occipital neuralgia which might have been the reason for SIADH. Patient takes sodium tablets twice a day but is unable to take it for the past few days due to significant nausea and vomiting. Symptoms started on Thursday when patient had his grandkids over does document history of headache, sinus drainage and general weakness. Patient endorses nausea and gagging for the past 3 days. He has significant epigastric abdominal pain associated with vomiting with a tinge of blood in it. According to the bedside, patient has significant phlegm production but no cough or vomiting and has a constant gagging sensation at the back of the throat. On evaluation in the ER patient had a temperature 98.3, pulse rate 72, blood pressure 161/92 saturating well on room air labs suggest a sodium of 125,Otherwise labs unremarkable glucose [address] abdomen suggested severe gastritis with concern for mild colitis with small hiatal hernia. No sign of obstruction seen. Patient has history of chronic duodenal stricture with current concern for worsening. We will consult Dr. Hickman for possible GERD on medium follow-through depending upon the course. Continue Protonix 40 mg by mouth twice a day. Patient appears dehydrated on exam and will continue normal saline at 75 mL per hour. Will obtain sodium urine and urine osmolality and serum osmolarity. Patient will be admitted for IV fluids as patient is intolerable to oral intake of fluids due to persistent intractable nausea and vomiting Review of Systems Constitutional: Denies chills, Denies fever, Denies lethargy, Denies malaise, Denies poor appetite, Denies weakness, Denies weight loss Eyes: denies decreased vision, denies diplopia, denies discharge, denies pain Ears: deny: decreased hearing Ears, nose, mouth and throat: Denies dental pain, Denies headache, Denies nasal discharge, Denies nose pain Cardiovascular: Denies chest pain, Denies decreased exercise tolerance, Denies edema, Denies high blood pressure, Denies irregular heart beat, Denies palpitations, Denies paroxysmal nocturnal dyspnea, Denies rapid heart beat, Denies shortness of breath Respiratory: Denies congestion, Denies cough, Denies cough with sputum, Denies dyspnea, Denies home oxygen, Denies wheezing Gastrointestinal: Endorses epigastric abdominal pain, Denies change in bowel habits, Denies coffee ground emesis, Denies early satiety, Denies excessive gas , Denies heartburn, endorses endorses hematemesis, Denies hematochezia, endorses loss of appetite, endorses nausea, Denies vomiting Genitourinary: Denies dysuria, Denies flank pain, Denies kidney stones, Denies menorrhagia, Denies urgency, Denies urinary frequency Musculoskeletal: Denies gait dysfunction, Denies limitation of motion, Denies morning stiffness, Denies muscle cramps Integumentary: Denies rash, Denies wounds, Denies brittle nails, Denies change in hair/nails, Denies darkening of skin Neurological: Denies balance difficulties, Denies change in speech, Denies double vision, Denies gait dysfunction, Denies loss of vision, Denies motor disturbance, Denies numbness, Denies paralysis, Denies paresthesias, Denies seizures Psychiatric: Denies anxiety, Denies depression Endocrine: Denies excessive sweating, Denies excessive thirst, Denies high blood sugars, Denies palpitations Hematologic/Lymphatic: Denies easy bruising, Denies lymphadenopathy Past Medical History Past Medical History: Coronary Artery Disease (CAD), Chest Pain / Angina, Eye Disorder, GERD/Reflux, Hyperlipidemia, Hypertension, Myocardial Infarction ([place]) , Osteoarthritis (OA) Additional Past Medical History / Comment(s): SVT with ablation, gastric ulcers , chronic duodenal stricture, bilateral glaucoma, sinusitis, migraines, anemia, esophagitis,hiatal hernia, chronic back pain, past fx ribs/sternum Last Myocardial Infarction Date:: 1999 History of Any Multi-Drug Resistant Organisms: None Reported Past Surgical History: Cardiac Ablation, Cholecystectomy, Heart Catheterization With Stent Additional Past Surgical History / Comment(s): sinus surgery, cataracts bilaterally with lens implants, EGDs/colonoscopies, Past Anesthesia/Blood Transfusion Reactions: No Reported Reaction Additional Past Anesthesia/Blood Transfusion Reaction / Comment(s): Pt has had past multiple transfusions without reaction. Date of Last Stent Placement:: 1999 Past Psychological History: No Psychological Hx Reported Smoking Status: Former smoker Past Alcohol Use History: None Reported Past Drug Use History: None Reported - Past Family History Father Additional Family Medical History / Comment(s): Father at the age of 68yrs from a ruptured aortic aneurysm. Mother Family Medical History: Hyperlipidemia, Hypertension Additional Family Medical History / Comment(s): Mother lived into her 80's. Medications and Allergies Home Medications Medication Instructions Recorded Confirmed Type Metoprolol Tartrate [Lopressor] 25 mg PO BID 07/12/13 01/27/18 History Simvastatin [Zocor] 40 mg PO HS 07/12/13 01/27/18 History Amitriptyline HCl 10 mg PO HS 01/26/16 01/27/18 History Brimonidine Tartrate [Alphagan P 1 drops BOTH EYES BID 02/20/16 01/27/18 History 0.2% Ophth Soln] Pantoprazole Sodium 40 mg PO DAILY 06/26/16 01/27/18 History Metoclopramide [Reglan] 5 mg PO QID 08/24/16 01/27/18 History Dicyclomine [Bentyl] 10 mg PO TID 06/04/17 01/27/18 History Bimatoprost [Lumigan .01% Ophth 1 drop BOTH EYES DAILY 01/27/18 01/27/18 History Soln] Butalb/Acetaminophen/Caffeine 1 cap PO Q4H PRN 01/27/18 01/27/18 History [Fioricet 50-300-40 mg Capsule] Dorzolamide-Timol 2.23%/0.68% 1 drop BOTH EYES BID 01/27/18 01/27/18 History [Cosopt] Ondansetron HCl [Zofran] 4 mg PO BID PRN 01/27/18 01/27/18 History Sodium Chloride Tab 1 gm PO DAILY 01/27/18 01/27/18 History Allergies Allergy/AdvReac Type Severity Reaction Status Date / Time atorvastatin [From Lipitor] AdvReac MUSCLE Verified 01/27/18 08:21 CRAMPS Physical Exam Vitals: Vital Signs Temp Pulse Resp BP Pulse Ox 01/27/18 12:00 98.3 F 72 18 161/92 97 01/27/18 11:30 159/91 01/27/18 11:00 18 167/97 96 01/27/18 10:30 18 164/92 98 01/27/18 10:00 18 173/90 01/27/18 09:30 18 150/93 99 01/27/18 09:00 18 159/93 94 L 01/27/18 08:30 18 172/95 01/27/18 08:00 18 180/95 01/27/18 07:53 18 98 01/27/18 07:50 98.0 F 61 20 180/95 98 Intake and Output 01/26/18 01/27/18 01/27/18 22:59 06:59 14:59 Other: Weight 83.915 kg - Constitutional General appearance: cooperative, dis heveled mild distress - EENT Eyes: anicteric sclerae, PERRLA, normal appearance ENT: hearing grossly normal - Neck Neck: no lymphadenopathy, normal ROM, no other, no rigidity, no stridor, no thyromegaly - Respiratory Respiratory: bilateral: CTA, negative: diminished, dullness, rales, rhonchi - Cardiovascular Rhythm: Tachycardic Heart sounds: normal: S1, S2 Abnormal Heart Sounds: no systolic murmur, no diastolic murmur, no rub, no S3 Gallop, no S4 Gallop, no click, no other - Gastrointestinal General gastrointestinal: normal bowel sounds, soft tender in the epigastric region - Integumentary Integumentary: no rash - Neurologic Neurologic: CNII-XII intact - Musculoskeletal Musculoskeletal: gait normal, strength equal bilaterally - Psychiatric Psychiatric: A&O x's 3, appropriate affect Results CBC & Chem 7: 01/27/18 09:17 01/27/18 09:17 Labs: Abnormal Lab Results - Last 24 Hours (Table) 01/27/18 01/27/18 Range/Units 09:17 09:17 Hct 38.8 L (39.0-53.0) % Sodium 125 L (137-145) mmol/L Chloride 91 L (98-107) mmol/L BUN 6 L (9-20) mg/dL Creatinine 0.61 L (0.66-1.25) mg/dL Glucose 116 H (74-99) mg/dL Thrombosis Risk Factor Assmnt - DVT/VTE Prophylaxis DVT/VTE Prophylaxis: Pharmacologic Prophylaxis ordered Assessment and Plan Plan: #1 intractable nausea and vomiting likely secondary to severe gastritis with concern of possible duodenal stricture worsening. He'll continue Protonix 40 mg IV twice a day normal saline at 75 mL per hour and keep patient nothing by mouth. On Dr. Hickman consulted for possible EGD Immediately Swallow Follow- Through to Evaluate Duodenal Stricture. #2 Hyponatremia Likely a mixture of Dehydration and SIADH. Continue Normal Saline at 75 ML Per Hour. Sodium to be repeated 8 hr. urine sodium, urine osmolality and serum osmolality ordered #3 chronic migraine cephalgia, occipital neuritis. Continue amitriptyline 10 mg by mouth daily. Furosemide as needed #4 chronic nausea and vomiting. Continue Bentyl 10 mg daily with Reglan 10 mg 4 times a day #5 hypertension continue metoprolol 25 mg twice a day #6 hyperlipidemia continue Zocor 40 mg daily at bedtime #7 history of SIADH, will hydrate patient for now as appears hypovolemic #8 DVT prophylaxis with heparin every 12 full code
[2018-01-28] MEDS ORDERED: ALPRAZolam 0.25 MG TAB PO PRN (13:38)
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
--- NOTE | 2018-01-28 14:32 | P.PN ---
Subjective Progress Note Date: 01/28/18 Mr. Barbosa is a 67 years old male known to me as a clinic patient ( seen in the clinic once) with past medical history of coronary artery disease status post stenting, SVT status post ablation, history of gastric ulcers, chronic duodenal stricture EGD in 2016 suggested stable duodenal stricture, patient sees Dr. Hickman for the same last seen 6 months ago, last admitted in May 2017 for hypovolemic hyponatremia from nausea and vomiting with the complaint of SIADH. Patient does have severe cervicalgia and occipital neuralgia which might have been the reason for SIADH. Patient takes sodium tablets twice a day but is unable to take it for the past few days due to significant nausea and vomiting. Symptoms started on Thursday when patient had his grandkids over does document history of headache, sinus drainage and general weakness. Patient endorses nausea and gagging for the past 3 days. He has significant epigastric abdominal pain associated with vomiting with a tinge of blood in it. According to the bedside, patient has significant phlegm production but no cough or vomiting and has a constant gagging sensation at the back of the throat. On evaluation in the ER patient had a temperature 98.3, pulse rate 72, blood pressure 161/92 saturating well on room air labs suggest a sodium of 125,Otherwise labs unremarkable glucose [address] abdomen suggested severe gastritis with concern for mild colitis with small hiatal hernia. No sign of obstruction seen. Patient has history of chronic duodenal stricture with current concern for worsening. We will consult Dr. Hickman for possible GERD on medium follow-through depending upon the course. Continue Protonix 40 mg by mouth twice a day. Patient appears dehydrated on exam and will continue normal saline at 75 mL per hour. Will obtain sodium urine and urine osmolality and serum osmolarity. Patient will be admitted for IV fluids as patient is intolerable to oral intake of fluids due to persistent intractable nausea and vomiting 01/28: Upper GI was done this morning that showed mild incomplete stricture of the distal esophagus proximal to the gastroesophageal junction. No esophageal dilation or obstruction. Small hiatal hernia. Moderate intraesophageal reflux and mild gastroesophageal reflux. Abnormal esophageal motility likely related to presbyesophagus rather than neuromuscular disorder. Unremarkable small bowel follow-through with normal transit time. GI is planning for EGD tomorrow. Clear liquids as tolerated today, Protonix 40 mg IV daily. Patient is requesting Xanax for bedtime for sleep. He denies having any emesis. No chest pain or shortness of breath. Review of Systems Constitutional: Denies chills, Denies fever, Denies lethargy, Denies malaise, Denies poor appetite, Denies weakness Eyes: denies decreased vision, denies diplopia, denies discharge, denies pain Ears: deny: decreased hearing Ears, nose, mouth and throat: Denies dental pain, Denies headache, Denies nasal discharge, Denies nose pain Cardiovascular: Denies chest pain, Denies decreased exercise tolerance, Denies edema, Denies high blood pressure, Denies irregular heart beat, Denies palpitations, Denies paroxysmal nocturnal dyspnea, Denies rapid heart beat, Denies shortness of breath Respiratory: Denies congestion, Denies cough, Denies cough with sputum, Denies dyspnea, Denies home oxygen, Denies wheezing Gastrointestinal: Endorses epigastric abdominal pain, Denies change in bowel habits, Denies coffee ground emesis, Denies early satiety, Denies excessive gas , Denies heartburn, endorses endorses hematemesis, Denies hematochezia, endorses loss of appetite, endorses nausea, Denies vomiting Genitourinary: Denies dysuria, Denies flank pain, Denies kidney stones, Denies menorrhagia, Denies urgency, Denies urinary frequency Musculoskeletal: Denies gait dysfunction, Denies limitation of motion, Denies morning stiffness, Denies muscle cramps Integumentary: Denies rash, Denies wounds, Denies brittle nails, Denies change in hair/nails, Denies darkening of skin Neurological: Denies balance difficulties, Denies change in speech, Denies double vision, Denies gait dysfunction, Denies loss of vision, Denies motor disturbance, Denies numbness, Denies paralysis, Denies paresthesias, Denies seizures Psychiatric: Denies anxiety, Denies depression Endocrine: Denies excessive sweating, Denies excessive thirst, Denies high blood sugars, Denies palpitations Hematologic/Lymphatic: Denies easy bruising, Denies lymphadenopathy Objective - Vital Signs Vital signs: Vital Signs Temp 97.5 F L 01/28/18 12:13 Pulse 66 01/28/18 12:13 Resp 16 01/28/18 12:13 BP 129/75 01/28/18 12:13 Pulse Ox 98 01/28/18 12:13 Intake & Output 01/27/18 01/28/18 01/28/18 18:59 06:59 18:59 Intake Total 75 Balance 75 Weight 83.915 kg Intake: Intake, IV Titration 75 Amount Sodium Chloride 0.9% 1, 75 000 ml @ 75 mls/hr IV . [id number] DANIEL Rx#:[id number] Other: Voiding Method Toilet Toilet # Voids 2 - Exam General appearance: cooperative, no distress - EENT Eyes: anicteric sclerae, PERRLA, normal appearance ENT: hearing grossly normal - Neck Neck: no lymphadenopathy, normal ROM, no other, no rigidity, no stridor, no thyromegaly - Respiratory Respiratory: bilateral: CTA, negative: diminished, dullness, rales, rhonchi - Cardiovascular Rhythm: Tachycardic Heart sounds: normal: S1, S2 Abnormal Heart Sounds: no systolic murmur, no diastolic murmur, no rub, no S3 Gallop, no S4 Gallop, no click, no other - Gastrointestinal General gastrointestinal: normal bowel sounds, soft tender in the epigastric region - Integumentary Integumentary: no rash - Neurologic Neurologic: CNII-XII intact - Musculoskeletal Musculoskeletal: gait normal, strength equal bilaterally - Psychiatric Psychiatric: A&O x's 3, appropriate affect - Labs CBC & Chem 7: 01/28/18 04:22 01/28/18 12:36 Labs: Abnormal Lab Results - Last 24 Hours (Table) 01/27/18 01/27/18 01/28/18 Range/Units 09:17 20:57 04:22 Sodium 133 L 136 L (137-145) mmol/L BUN 6 L 6 L (9-20) mg/dL Glucose 110 H (74-99) mg/dL Osmolality 250 L (280-301) mosm/kg 01/28/18 Range/Units 12:36 Sodium (137-145) mmol/L BUN 7 L (9-20) mg/dL Glucose 117 H (74-99) mg/dL Osmolality (280-301) mosm/kg Assessment and Plan Plan: #1 intractable nausea and vomiting likely secondary to severe gastritis with concern of possible duodenal stricture worsening. Continue Protonix 40 mg IV twice a day normal saline at 75 mL per hour and GI has advanced to clear liquids. On Dr. Hickman consulted for possible EGD tomorrow. #2 Hyponatremia Likely a mixture of Dehydration and SIADH. Continue Normal Saline at 75 ML Per Hour. Sodium to be repeated 8 hr. urine sodium, urine osmolality and serum osmolality ordered. Patient resumed on sodium tablets #3 chronic migraine cephalgia, occipital neuritis. Continue amitriptyline 10 mg by mouth daily. Furosemide as needed #4 chronic nausea and vomiting. Continue Bentyl 10 mg daily with Reglan 10 mg 4 times a day #5 hypertension continue metoprolol 25 mg twice a day #6 hyperlipidemia continue Zocor 40 mg daily at bedtime #7 history of SIADH, will hydrate patient for now as appears hypovolemic #8 DVT prophylaxis with heparin every 12 full code Plan: Return home Impression and plan of care have been directed as dictated by the signing physician. Zahra Lainez nurse practitioner acting as scribe for signing physician.
[2018-01-28] MEDS: GABAPENTIN 100 MG CAP PO SCH (15:04)
[2018-01-28] MEDS ORDERED: LACTATED RINGERS 1,000 ML IV SCH (18:30)
[2018-01-28] MEDS ORDERED: GABAPENTIN 100 MG CAP PO SCH (21:00)
[2018-01-28] MEDS: ATORVASTATIN 20 MG TAB PO SCH (21:20)
[2018-01-28] MEDS: AMITRIPTYLINE HCL 10 MG TAB PO SCH (21:20)
[2018-01-28 22:14] LABS: Anion Gap 9 mmol/L; Blood Urea Nitrogen 7 mg/dL (9-20); Carbon Dioxide 23 mmol/L (22-30); Chloride 103 mmol/L (98-107); Glucose 103 mg/dL (74-99); Potassium 3.9 mmol/L (3.5-5.1); Sodium 135 mmol/L (137-145)
[2018-01-29] MEDS: METOPROLOL TARTRATE 25 MG TAB PO SCH (05:35)
[2018-01-29] MEDS: MORPHINE SULFATE 2 MG/ML SYRINGE IVP PRN ×2 (05:35→12:09)
[2018-01-29] MEDS: ONDANSETRON 4 MG/2 ML VIAL IVP PRN ×2 (05:35→12:10)
[2018-01-29] MEDS: SODIUM CHLORIDE 0.9% 1,000 ML IV SCH ×2 (05:41→14:24)
[2018-01-29] MEDS: BRIMONIDINE TARTRATE 0.2% DROPS 5 ML BTL BOTH EYES SCH (08:27)
[2018-01-29] MEDS: DORZOLAMIDE-TIMOLOL 2.23%/0.68 10ML BTL BOTH EYES SCH (08:28)
[2018-01-29] MEDS: LATANOPROST 0.005% OPHTH DROPS 2.5 ML BTL BOTH EYES SCH (08:29)
[2018-01-29] MEDS: PANTOPRAZOLE 40 MG/10 ML VIAL IV SCH (08:30)
[2018-01-29 08:31] LABS: Basophils % (A) 0 %; Eosinophils # (A) 0.2 k/uL (0-0.7); Eosinophils % (A) 3 %; HCT 38.2 % (39.0-53.0); HGB 12.7 gm/dL (13.0-17.5); Lymphocytes # (A) 1.4 k/uL (1.0-4.8); Lymphocytes % (A) 20 %; MCH 30.8 pg (25.0-35.0); MCHC 33.2 g/dL (31.0-37.0); MCV 92.7 fL (80.0-100.0); Mean Platelet Volume 5.9; Monocytes # (A) 0.8 k/uL (0-1.0); Monocytes % (A) 12 %; Neutrophils # (A) 4.3 k/uL (1.3-7.7); Neutrophils % (A) 62 %; Platelet Count 321 k/uL (150-450); RBC 4.12 m/uL (4.30-5.90); RDW 12.9 % (11.5-15.5); WBC 6.8 k/uL (3.8-10.6)
[2018-01-29] MEDS: DICYCLOMINE 10 MG CAP PO SCH (08:38)
[2018-01-29] MEDS: METOCLOPRAMIDE 5 MG TAB PO SCH ×2 (08:38→14:24)
[2018-01-29 11:42] VITALS: BP 150/86; PULSE 70; RESP 18; TEMP 97.8
[2018-01-29] MEDS ORDERED: PROPOFOL 10 MG/ML 20 ML VIAL IV ONE (13:45)
[2018-01-29] MEDS ORDERED: SODIUM CHLORIDE 0.9% 1,000 ML IV ONE (13:49)
--- NOTE | 2018-01-29 13:56 | P.PCN ---
Date of Procedure: 01/29/18 Procedure(s) Performed: BRIEF HISTORY: Patient is a 67-year-old, pleasant, white male, admitted to the hospital with 5 days of intractable abdominal pain associated with nausea vomiting. Has history of GERD and has been on Protonix, Reglan and Zofran on an outpatient basis. He has been having these intermittent episodes once or twice a requiring hospitalization. Last upper endoscopy june of 2016 showed small hiatal hernia, mild gastritis and early duodenal stricture. Abdomen gallbladder surgery in July of this year and felt better. Has recurrent symptoms. His and scheduled for an upper endoscopy to evaluate further. PROCEDURE PERFORMED: Esophagogastroduodenoscopy with biopsy PREOPERATIVE DIAGNOSIS: Intermittent episodes of abdominal pain, nausea vomiting for 5 days duration. IV sedation per anesthesia. PROCEDURE: After informed consent was obtained, the patient was brought into the endoscopy unit. IV sedation was administered by Anesthesia under continuous monitoring. Initially the Olympus GIF-140 video endoscope was inserted into the mouth. Esophagus intubated without any difficulty. It was gradually advanced into the stomach and duodenum and carefully examined. There was nonobstructive duodenal stricture along the duodenal sweep and the scope couldn't be advanced without any difficulty. The scope at this time was withdrawn to the stomach, adequately insufflated with air, and upon careful examination, mucosa of the antrum appeared normal. In the proximal body of the stomach revealed linear erosions severe gastritis and biopsies were done from this area. The rest of the body, cardia and the fundus appeared normal. The scope was then withdrawn into the esophagus. Small sliding Hiatal hernia noted. The GE junction was located at 39 cm from the incisors. There were patchy areas of erythema in the mid esophagus and a couple of erosions in the distal esophagus consistent with LA grade B reflux esophagitis. The rest of the esophagus appeared normal and the patient tolerated the procedure well. IMPRESSION: 1. Mild gastritis involving the proximal body the stomach status post biopsy. 2. Not obstructive duodenal stricture along the duodenal sweep 3. Patchy areas of erythema with a couple of linear erosions in the distal esophagus consistent with LA grade B reflux esophagitis. RECOMMENDATIONS: The findings of this examination were discussed with the patient as well as his family. He was advised to follow with the biopsy results. He will continue Protonix 40 mg daily. Advance diet as tolerated..
[2018-01-29] MEDS ORDERED: LACTATED RINGERS 1,000 ML IV ONE (13:57)
[2018-01-29] MEDS: SODIUM CHLORIDE TAB 1 GM TAB PO SCH (14:24)
[2018-01-29] MEDS: GABAPENTIN 100 MG CAP PO SCH (14:24)
== END 2018-01-29 15:37 | disposition home or self-care (01) | DRG 392 ==
LOC: EC 07:47 → 3NMEDONC 11:10
PROVIDERS: ADMIT Internal Medicine; ATTEND Internal Medicine
PROC: 0DB78ZX Excision of Stomach, Pylorus, Via Natural or Artificial Opening Endoscopic, Diagnostic (ICD-10-PCS; principal; 2018-01-29 07:30)
DX: K29.70 Gastritis, unspecified, without bleeding (principal); E22.2 Syndrome of inappropriate secretion of antidiuretic hormone; K21.0 Gastro-esophageal reflux disease with esophagitis; E78.5 Hyperlipidemia, unspecified; E86.0 Dehydration; E86.1 Hypovolemia; G43.909 Migraine, unspecified, not intractable, without status migrainosus; H40.9 Unspecified glaucoma; I10 Essential (primary) hypertension; I25.10 Atherosclerotic heart disease of native coronary artery without angina pectoris; I25.2 Old myocardial infarction; K44.9 Diaphragmatic hernia without obstruction or gangrene; M54.81 Occipital neuralgia; Z79.899 Other long term (current) drug therapy; Z82.49 Family history of ischemic heart disease and other diseases of the circulatory system; Z87.11 Personal history of peptic ulcer disease; Z87.891 Personal history of nicotine dependence; Z95.5 Presence of coronary angioplasty implant and graft; Z98.42 Cataract extraction status, left eye; Z98.41 Cataract extraction status, right eye; Z96.1 Presence of intraocular lens; Z88.8 Allergy status to other drugs, medicaments and biological substances; M54.9 Dorsalgia, unspecified; G89.29 Other chronic pain
CPT/HCPCS: 36415; 43239; 74177; 74245; 80048; 80053; 81003; 82150; 83605; 83690; 83930; 83935; 84300; 84484; 85025; 85610; 85730; 88305; 88312; 93005; 96361; 96374; 96375; 99285

== ENCOUNTER → 2018-04-17 | Outpatient (CLI) | payer MEDICARE ==
--- NOTE | 2018-04-17 20:11 | MR ---
EXAMINATION TYPE: MR cervical spine wo con DATE OF EXAM: 04/17/2018 COMPARISON: None HISTORY: Cervico-occipital neuralgia, headaches TECHNIQUE: Multiplanar, multisequence images of the cervical spine were acquired. Cervical vertebra have normal alignment. There is some degenerative disc space narrowing at C3-4 C4-5 C5-6. There is mild posterior disc bulging at C3-4 C4-5 and C6-7. There is no significant narrowing of the spinal canal. There is developmentally adequate canal. The canal measures 8.5 mm at the narrow est point at C3-4. I see no focal bone destruction. The brainstem is intact. Cervical spinal cord madhav ws no evidence of edema. There is no evidence of a cervical spine fracture. There is mild hypertrophi c facet arthropathy in the cervical spine. IMPRESSION: Multilevel spondylotic changes with posterior disc bulging and spur formation. No significant spinal stenosis. No fracture.
== END | disposition home or self-care (01) ==
LOC: RADMRIMAIN 07:58
PROVIDERS: ATTEND Internal Medicine
DX: M50.21 Other cervical disc displacement, high cervical region (principal); M47.812 Spondylosis without myelopathy or radiculopathy, cervical region; M54.81 Occipital neuralgia
CPT/HCPCS: 72141

== ENCOUNTER → 2018-05-03 | Outpatient (CLI) | payer MEDICARE ==
[2018-04-26 15:14] VITALS: BMI 23.7
[2018-05-03 13:55] VITALS: BP 172/93; PULSE 93; RESP 16
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
== END ==
LOC: PNWHC3 13:13
PROVIDERS: ATTEND Specialist
DX: G89.29 Other chronic pain (principal); M47.812 Spondylosis without myelopathy or radiculopathy, cervical region; M54.81 Occipital neuralgia; I25.10 Atherosclerotic heart disease of native coronary artery without angina pectoris; K21.9 Gastro-esophageal reflux disease without esophagitis; E78.5 Hyperlipidemia, unspecified; I10 Essential (primary) hypertension; I25.2 Old myocardial infarction; M19.90 Unspecified osteoarthritis, unspecified site; K26.9 Duodenal ulcer, unspecified as acute or chronic, without hemorrhage or perforation; H40.9 Unspecified glaucoma; G43.909 Migraine, unspecified, not intractable, without status migrainosus; H26.9 Unspecified cataract; Z98.890 Other specified postprocedural states; Z90.49 Acquired absence of other specified parts of digestive tract; Z95.5 Presence of coronary angioplasty implant and graft; Z87.891 Personal history of nicotine dependence; Z79.891 Long term (current) use of opiate analgesic; Z88.8 Allergy status to other drugs, medicaments and biological substances
CPT/HCPCS: 99211

== ENCOUNTER → 2018-05-07 | Outpatient (CLI) | payer MEDICARE ==
--- NOTE | 2018-05-07 10:54 | US ---
EXAMINATION TYPE: US carotid duplex BILAT DATE OF EXAM: 05/07/2018 COMPARISON: NONE CLINICAL HISTORY: G45.9 TIA. 1 episode of dizziness, light headedness and left arm numbness EXAM MEASUREMENTS: RIGHT: Peak Systolic Velocity (PSV) cm/sec ----- Right CCA: 63.3 ----- Right ICA: 82.0 ----- Right ECA: 104.1 ICA/CCA ratio: 1.3 RIGHT: End Diastole cm/sec ----- Right CCA: 26.7 ----- Right ICA: 34.7 ----- Right ECA: 21.6 LEFT: Peak Systolic Velocity (PSV) cm/sec ----- Left CCA: 63.2 ----- Left ICA: 72.4 ----- Left ECA: 83.1 ICA/CCA ratio: 1.1 LEFT: End Diastole cm/sec ----- Left CCA: 19.3 ----- Left ICA: 27.4 ----- Left ECA: 18.2 VERTEBRALS (direction of flow): Right Vertebral: Antegrade Left Vertebral: Antegrade Rhythm: Normal Bilateral intimal thickening, plaque bilateral proximal ICA, no elevated velocities, no significant. IMPRESSION: 1. Bilateral atherosclerotic changes with no significant hemodynamic stenosis. Criteria for Assigning % of Stenosis / Diameter reduction (Estimation based on the indirect measurements of the internal carotid artery velocities (ICA PSV). 1. Normal (no stenosis)=ICA PSV < 125 cm/s: ratio < 2.0: ICA EDV<40 cm/s. 2. Less than 50% stenosis=ICA PSV < 125 cm/s: ratio < 2.0: ICA EDV<40 cm/s. 3. 50 to 69% stenosis=ICA PSV of 125 to 230 cm/s: ration 2.0 ? 4.0: ICA EDV 40-100 cm/s. 4. Greater than 70% stenosis to near occlusion= ICA PSV > 230 cm/s: ratio > 4.0: ICA EDV > 100 cm/s. 5. Near occlusion= ICA PSV velocities may be low or undetectable: variable ratio and ICA EDV. 6. Total occlusion=unable to detect flow.
== END | disposition home or self-care (01) ==
LOC: RADUSWWP 10:01
PROVIDERS: ATTEND Internal Medicine Geriatric Medicine
DX: I65.23 Occlusion and stenosis of bilateral carotid arteries (principal)
CPT/HCPCS: 93880

== ENCOUNTER 2018-05-18 07:20 | Day surgery (SDC) | payer MEDICARE ==
[2018-05-17 11:58] VITALS: BMI 23.7
[~2018-05-18 07:20] MED LIST: SODIUM CHLORIDE 0.9% 500 ML 500 ML IV SCH
[2018-05-18 07:49] VITALS: RESP 16; TEMP 98.1
[2018-05-18] MEDS ORDERED: LACTATED RINGERS 1,000 ML IV ONE (07:56)
[2018-05-18] MEDS ORDERED: LIDOCAINE 1% 20 ML VIAL (10MG/ML) FOR IV START INTRADERMA ONE (07:57)
[2018-05-18] MEDS ORDERED: IV FLUID CONTINUATION 1,000 ML IV ONE (08:48)
[2018-05-18 09:07] VITALS: BP 130/75; PULSE 59
--- NOTE | 2018-05-18 09:47 | FL ---
EXAMINATION TYPE: FL guided pain mgmt statistic DATE OF EXAM: 05/18/2018 FLUOROSCOPY Fluoroscopy time of 5 seconds was used during bilateral cervical facet injections. 1 image/s documen t/s the procedure.
--- NOTE | 2018-05-18 13:04 | P.PCN ---
Date of Procedure: 05/18/18 Surgeon: Richie Estrella Description of Procedure: PREOPERATIVE DIAGNOSIS: Cervical Spondylosis with Facet Arthropathy.without myelopathy POSTOPERATIVE DIAGNOSIS: Cervical Spondylosis Facet Arthropathy. Without myelopathy PROCEDURES: Diagnostic , bilateral C2, C3, C4 medial branch blocks, with fluoroscopic guidance ANESTHESIA: Local with 1% lidocaine; IV sedation with Versed. EBL: Minimal PROCEDURE INDICATION: The patient with neck pain secondary to cervical arthropathy unresponsive to more conservative treatments. He presents today for his second cervical medial branch nerve blocks. He reports good relief from his first injections. PROCEDURE DESCRIPTION / TECHNIQUE: The patient was seen and identified in the preoperative area. Risks, benefits, complications, and alternatives were discussed with the patient, the patient agreed to proceed with the procedure and signed the consent. IV was started. Vital signs remained stable throughout the procedure. Patient was taken to the OR and time out was completed. The patient was placed in the prone position on the procedure table. A pillow was placed under the patients chest to increase the cervical interlaminar space. The cervical area was prepped and draped in the usual sterile fashion. Critical pause was taken. Vital signs were closely monitored during the procedure. Conscious sedation was used during the procedure to decrease patients anxiety. Using cross-table lateral fluoroscopy, the centroid of the trapezoid of the right side of the first level was identified, marked, and localized with 1% lidocaine 1 ml at each level for skin and subcutaneous infiltrations . Subsequently, a 25 G spinal needle was advanced guided by fluoroscopy to the centroid of the trapezoid . [place]ham tip position was confirmed at the centroid of the trapezoids anteroposterior fluoroscopy. Subsequently, 1 mL of 0.25% bupivacaine with 10 mg of Depo-Medrol was injected at each level. COMPLICATIONS: No acute complications. COMMENTS: DISPOSITION / PLANS: The patient was placed in a supine position and transferred to the recovery area in a stable condition for observation and was discharged from the recovery room after meeting discharge criteria. Home discharge instructions given to the patient by the staff. The patient was reexamined prior to discharge.
== END 2018-05-18 09:19 | disposition home or self-care (01) ==
LOC: ORPAIN 07:20
PROVIDERS: ATTEND Pain Medicine Pain Medicine
DX: M47.812 Spondylosis without myelopathy or radiculopathy, cervical region (principal); Z88.8 Allergy status to other drugs, medicaments and biological substances
CPT/HCPCS: 64490; 64491; J2250; J1030; J3010; 99152

== ENCOUNTER 2018-06-01 07:24 | Day surgery (SDC) | payer MEDICARE ==
[2018-05-27 17:21] VITALS: BMI 24.1
[2018-06-01 07:38] VITALS: RESP 16; TEMP 97.5
[2018-06-01] MEDS ORDERED: LACTATED RINGERS 1,000 ML IV ONE (08:15)
[2018-06-01] MEDS ORDERED: LIDOCAINE 1% 20 ML VIAL (10MG/ML) FOR IV START INTRADERMA ONE (08:16)
--- NOTE | 2018-06-01 08:33 | P.PCN ---
Date of Procedure: 06/01/18 Operative Findings: Procedure: Bilateral Cervical Medial Branch Block at C 2, 3, 4 #2 Indications: Cervical spondylosis without myelopathy Surgeon: Krupa Espino IV sedation with: versed 2mg Anesthesia: Conscious Sedation Given for Anxiety and fear of needles The patient was seen and examined in the [facility]. Procedure risks and benefits were fully reviewed with patient. The patient understands this is a diagnostic as well as a therapeutic procedure and that the goal of the procedure is to inject medication on to the medial branch or small nerves that go into the facet joints. In this way, we can hopefully identify which of these joints, if any, may be contributing to their pain. Informed consent for the procedure was obtained. The patient was taken into the office fluoroscopy procedure room and placed supine on the table. Vital signs were closely monitored during the procedure. The skin over the area was prepped with Betadine X 3 and draped in usual sterile manner. Sterile technique was observed throughout procedure. Under fluoroscopic guidance, the target injection areas of the C 2, 3, 4 medial branch nerve locations were visualized in AP, oblique and lateral views. Using biplanar fluoroscopy, a 25 gauge 1.5 inch spinal needle was inserted into proper position where the tip of the needle was located at the midpoint of the quadrangle at each level. After negative aspiration for blood and CSF, 0.5cc of 0.25 % Ropivacaine was injected into each of the targeted areas. The same procedure was performed on the right side. The needles were withdrawn intact. No complications were noted during the procedure. 3 cc of Ropivacaine used in total. The patient tolerated procedure well. The patient was placed in supine position and transferred to the recovery area for observation and remained stable until discharged home. Home discharge instructions given to the patient by the staff. The patient was reexamined prior to discharge. The patient will schedule a follow up in the clinic to discuss results and potential RFA.
[2018-06-01] MEDS ORDERED: IV FLUID CONTINUATION 1,000 ML IV ONE (08:37)
[2018-06-01 08:54] VITALS: BP 145/79; PULSE 58
--- NOTE | 2018-06-01 09:00 | FL ---
Fluoroscopy HISTORY: Pain 6 seconds fluoroscopy time supplied to the referring clinician. 1 intraoperative C-arm images docume nt the procedure. See dictated report from anesthesia.
== END 2018-06-01 09:13 | disposition home or self-care (01) ==
LOC: ORPAIN 07:24
PROVIDERS: ATTEND Hospitalist
DX: G89.29 Other chronic pain (principal); M47.812 Spondylosis without myelopathy or radiculopathy, cervical region; I25.119 Atherosclerotic heart disease of native coronary artery with unspecified angina pectoris; I10 Essential (primary) hypertension; Z87.891 Personal history of nicotine dependence; K21.9 Gastro-esophageal reflux disease without esophagitis; E78.5 Hyperlipidemia, unspecified; I25.2 Old myocardial infarction; M19.90 Unspecified osteoarthritis, unspecified site; H40.9 Unspecified glaucoma; Z79.899 Other long term (current) drug therapy; Z88.8 Allergy status to other drugs, medicaments and biological substances
CPT/HCPCS: 64490; 64491; J2250; J2001

== ENCOUNTER → 2018-06-23 | Outpatient (CLI) | payer MEDICARE ==
--- NOTE | 2018-06-23 14:48 | P.PAINPG ---
Subjective Progress Note Date: 06/23/18 Principal diagnosis: Cervical spondylosis This is a very pleasant 57-year-old gentleman with a history of bilateral neck pain. He is undergone 2 previous cervical medial branch nerve blocks at C3, C4 and C5. He reports significant reduction in his head and neck pain from these procedures. He does report that there are still some days where he has substantial pain and has to take medications. He is interested in pursuing a radiofrequency ablation to hopefully help alleviate the symptoms further. He denies any cervical radicular symptomatology. Objective - Vital Signs Vital signs: Intake & Output 06/22/18 06/23/18 06/23/18 18:59 06:59 18:59 Weight 88.451 kg - Exam General: The patient is alert and oriented. Patient is not sedated Patient answers all question appropriately. Cardiac: Heart is regular in rate and rhythm Respiratory: Clear to auscultation. No audible wheezes. Abdomen: Soft nontender nondistended. Musculoskeletal: No muscular deficits in the upper extremities. He is tender to palpation of the cervical facets bilaterally. Cervical facet loading maneuvers are positive bilaterally but worse on the left. Neurological: Reflexes are preserved and symmetric bilaterally. Assessment and Plan (1) Cervical spondylosis without myelopathy Narrative/Plan: Plan of Care 1. Medications: I've advised him to continue utilizing his pain medications on a conservative basis. 2. Interventions: We will schedule the patient for a left C3, C4 and C5 radio frequency ablation. This will be followed by the same procedure on the right side a couple of weeks later. 3. Referrals: None 4. Testing: None 5. Follow-up: Left cervical radio frequency ablation Current Visit: Yes Status: Acute Code(s): M47.812 - SPONDYLOSIS W/O MYELOPATHY OR RADICULOPATHY, CERVICAL REGION SNOMED Code(s): 949124495 PQRS Measure Charge Sheet Measure #130: Documentation of Current Meds in Medical Chart: Patient's medications documented in chart Measure #226: Tobacco Use: Screen & Cessation Intervention: Pt not a tobacco user Measure #111: Pneumonia Vaccination: Pneumococcal vaccine administered or previously received Measure #47: Advance Care Plan: Advance care planning discussed & documented, plan or surrogate given Measure #412: Opioid Treatment Agreement: No documentation of signed opioid treatment agreement Measure #408: Opioid Therapy Follow-up Evaluation: Patient had NO f/u eval minimum every 3 months during opioid therapy Measure #317: Preventitive Care & Scrn High Bld Press & F/U: Normal blood pressure, f/u not required Measure #128: Body Mass Index (BMI) Screening & Follow-up: BMI documented within normal parameters Measure #131: Pain Assessment & Follow-up: Pain positive & plan documented Measure #431: Unhealthy Alcohol Use Preventative Care & Scrn: Patient not identified as an unhealthy alcohol user PQRS Narrative: Smoking Status Former smoker Do You Want the Pneumonia Yes Vaccine AT THIS TIME? Pain Intensity [Neck] 1 Scale Used Numeric (1 - 10) Hx Alcohol Use ([facility]) No Home Medications: Ambulatory Orders Simvastatin [Zocor] 40 mg PO HS 07/12/13 Amitriptyline HCl 10 mg PO HS 01/26/16 Brimonidine Tartrate [Alphagan P 0.2% Ophth Soln] 1 drop LEFT EYE BID 02/20/16 Pantoprazole Sodium 40 mg PO DAILY 06/26/16 Metoclopramide [Reglan] 5 mg PO QID 08/24/16 Dicyclomine [Bentyl] 10 mg PO TID 06/04/17 Bimatoprost [Lumigan .01% Ophth Soln] 1 drop LEFT EYE DAILY 01/27/18 Butalb/Acetaminophen/Caffeine [Fioricet 50-300-40 mg Capsule] 1 cap PO Q4H PRN 01/27/18 Dorzolamide-Timol 2.23%/0.68% [Cosopt] 1 drop LEFT EYE BID 01/27/18 Ondansetron HCl [Zofran] 4 mg PO BID PRN 01/27/18 Sodium Chloride Tab 1 gm PO DAILY 01/27/18 Metoprolol Tartrate [Lopressor] 50 mg PO BID #60 tab 01/29/18 Gabapentin [Neurontin] 300 mg PO QAM 04/26/18 Gabapentin [Neurontin] 600 mg PO HS 04/26/18 prednisoLONE ACETATE 1% OPHTH [Pred Forte 1%] 1 drops LEFT EYE DAILY 04/26/18 Aspirin 81 mg PO DAILY 05/27/18 Controlled Substance Measures - Controlled Substance Measures Is patient prescribed a controlled substance at discharge?: No
== END | disposition home or self-care (01) ==
LOC: PNWHC3 14:09
PROVIDERS: ATTEND Pain Medicine Pain Medicine
DX: M47.812 Spondylosis without myelopathy or radiculopathy, cervical region (principal); Z87.891 Personal history of nicotine dependence; Z79.899 Other long term (current) drug therapy; Z79.82 Long term (current) use of aspirin
CPT/HCPCS: 99211

== ENCOUNTER 2018-07-07 06:21 | Day surgery (SDC) | payer MEDICARE ==
[2018-07-05 14:51] VITALS: BMI 23.7
[~2018-07-07 06:21] MED LIST changes: +LACTATED RINGERS 1,000 ML IV SCH; -SODIUM CHLORIDE 0.9% 500 ML 500 ML IV SCH
[2018-07-07] MEDS ORDERED: LIDOCAINE 1% 20 ML VIAL (10MG/ML) FOR IV START INTRADERMA ONE (07:05)
[2018-07-07 07:07] VITALS: RESP 16; TEMP 98.1
--- NOTE | 2018-07-07 07:43 | P.PCN ---
Date of Procedure: 07/07/18 Procedure(s) Performed: PREOPERATIVE DIAGNOSIS: Cervical spondylosis with Facet Arthropathy without myelopathy. POSTOPERATIVE DIAGNOSIS: Cervical spondylosis with Facet Arthropathy without myelopathy. PROCEDURES: Radiofrequency thermocoagulation Left C2 , C3, C4, medial branch with Fluroscopy [place] ANESTHESIA: moderate sedation with fentanyl 100 micrograms and Versed.2 mg EBL: Minimal PROCEDURE INDICATION: The patient with neck pain secondary to cervical arthropa thy who had more than 50% relief of her pain with previous diagnostic cervical medial branch block. PROCEDURE DESCRIPTION / TECHNIQUE: The patient was seen and identified in the preoperative area. Risks, benefits, complications, and alternatives were discussed with the patient, the patient agreed to proceed with the procedure and signed the consent. IV was started. Vital signs remained stable throughout the procedure. Patient was taken to the OR and time out was completed. The patient was placed in the prone position on the procedure table. A pillow was placed under the patients chest to increase the cervical interlaminar space. The cervical area was prepped and draped in the usual sterile fashion. Critical pause was taken. Vital signs were closely monitored during the procedure. Conscious sedation was used during the procedure to decrease patient s anxiety. Using cross-table lateral fluoroscopy, the centroid of the trapezoid of Left C2 , C3, C4, were identified, marked, and localized with 1% lidocaine. Subsequently, a [id number] radiofrequency cannula with a 10-mm active tip was advanced guided by fluoroscopy to the centroid of the trapezoid of Left C2 ,C3, C4, . Needle tip position was confirmed at the centroid of the trapezoids of the left C2 ,C3, C4, with anteroposterior fluoroscopy. Each site then underwent sensory testing at 50 Hz and 0 to 1 volt and motor testing at 2 Hz and 0 to 3 volt with local stimulation, but no radicular symptoms down the arm. Thereafter the left C2 ,C3, C4, sites underwent radiofrequency thermocoagulation at 80 degrees celsius for 90 seconds after injecting 0.5 ml of PF Ropivacaine 0.5 %. After thermocoagulation, 1 ml of the block solution containing Depo-Medrol 40 mg and 3 mL of preservative-free normal saline was injected at the left C2 , C3, C4, levels after negative aspiration of CSF and blood and with no paresthesias. Cannulas were retracted while injecting lidocaine 1% until the needle is out. Skin was cleansed and bandages were applied. COMPLICATIONS: No acute complications. DISPOSITION / PLANS: The patient was placed in a supine position and transferred to the recovery area in a stable condition for observation and was discharged from the recovery room after meeting discharge criteria. Home discharge instructions given to the patient by the staff. The patient was reexamined prior to discharge. The patient will schedule a follow up in the clinic in 2-4 weeks.
[2018-07-07] MEDS ORDERED: IV FLUID CONTINUATION 1,000 ML IV ONE ×2 (07:44)
[2018-07-07 08:00] VITALS: BP 120/65; PULSE 60
--- NOTE | 2018-07-07 08:15 | FL ---
EXAMINATION TYPE: FL guided pain mgmt statistic DATE OF EXAM: 07/07/2018 HISTORY: Pain 7 sec fluoro
== END 2018-07-07 08:14 | disposition home or self-care (01) ==
LOC: ORPAIN 06:21
PROVIDERS: ATTEND Specialist
DX: M47.812 Spondylosis without myelopathy or radiculopathy, cervical region (principal); I10 Essential (primary) hypertension; Z88.8 Allergy status to other drugs, medicaments and biological substances
CPT/HCPCS: 64633; 64634; J2250; J1030; J3010; 99152

== ENCOUNTER 2018-08-09 07:18 | Day surgery (SDC) | payer MEDICARE ==
[2018-08-04 15:47] VITALS: BMI 23.7
[2018-08-09 07:40] VITALS: TEMP 98.5
[2018-08-09] MEDS ORDERED: LIDOCAINE 1% 20 ML VIAL (10MG/ML) FOR IV START INTRADERMA ONE (07:50)
[2018-08-09] MEDS ORDERED: LACTATED RINGERS 1,000 ML IV ONE (07:50)
[2018-08-09] MEDS ORDERED: LACTATED RINGERS 1,000 ML IV SCH (08:15)
--- NOTE | 2018-08-09 08:45 | P.PCN ---
Date of Procedure: 08/09/18 Surgeon: Thelma Morales Pathology: none sent Condition: stable Disposition: PACU Description of Procedure: PREOPERATIVE DIAGNOSIS: Cervical spondylosis with Facet Arthropathy without myelopathy. POSTOPERATIVE DIAGNOSIS: Cervical spondylosis with Facet Arthropathy without myelopathy. PROCEDURES: Radiofrequency thermocoagulation right C2 , C3, C4, medial branch with Fluroscopy [place] ANESTHESIA: moderate sedation with fentanyl 100 micrograms and Versed.2 mg EBL: Minimal PROCEDURE INDICATION: The patient with neck pain secondary to cervical arthropathy who had more than 50% relief of her pain with previous diagnostic cervical medial branch block. PROCEDURE DESCRIPTION / TECHNIQUE: The patient was seen and identified in the preoperative area. Risks, benefits, complications, and alternatives were discussed with the patient, the patient agreed to proceed with the procedure and signed the consent. IV was started. Vital signs remained stable throughout the procedure. Patient was taken to the OR and time out was completed. The patient was placed in the prone position on the procedure table. A pillow was placed under the patients chest to increase the cervical interlaminar space. The cervical area was prepped and draped in the usual sterile fashion. Critical pause was taken. Vital signs were closely monitored during the procedure. Conscious sedation was used during the procedure to decrease patient s anxiety. Using cross-table lateral fluoroscopy, the centroid of the trapezoid of right C2 , C3, C4, were identified, marked, and localized with 1% lidocaine. Subsequently, a [id number] radiofrequency cannula with a 10-mm active tip was advanced guided by fluoroscopy to the centroid of the trapezoid of right C2 ,C3, C4, . Needle tip position was confirmed at the centroid of the trapezoids of the right C2 ,C3, C4, with anteroposterior fluoroscopy. Each site then underwent sensory testing at 50 Hz and 0 to 1 volt and motor testing at 2 Hz and 0 to 3 volt with local stimulation, but no radicular symptoms down the arm. Thereafter the right C2 ,C3, C4, sites underwent radiofrequency thermocoagulation at 80 degrees celsius for 90 seconds after injecting 0.5 ml of PF Ropivacaine 0.5 %. After thermocoagulation, 1 ml of the block solution containing Kenalog 40 mg and 3 mL of preservative-free normal saline was injected at the right C2 , C3, C4, levels after negative aspiration of CSF and blood and with no paresthesias. Cannulas were retracted while injecting lidocaine 1% until the needle is out. Skin was cleansed and bandages were applied. COMPLICATIONS: No acute complications. DISPOSITION / PLANS: The patient was placed in a supine position and transferred to the recovery area in a stable condition for observation and was discharged from the recovery room after meeting discharge criteria. Home discharge instructions given to the patient by the staff. The patient was reexamined prior to discharge. The patient will schedule a follow up in the clinic in 2-4 weeks.
--- NOTE | 2018-08-09 08:55 | FL ---
EXAMINATION TYPE: FL guided pain mgmt statistic DATE OF EXAM: 08/09/2018 FLUOROSCOPY Fluoroscopy time of 14 seconds was used during right-sided cervical radiofrequency ablation. 2 image /s document/s the procedure.
[2018-08-09] MEDS ORDERED: IV FLUID CONTINUATION 700 ML IV ONE ×2 (08:58)
[2018-08-09] MEDS ORDERED: fentaNYL (PF) 50 MCG/ML 2 ML AMP IV ONE (08:59)
[2018-08-09 09:02] VITALS: RESP 18
[2018-08-09 09:16] VITALS: BP 126/75; PULSE 60
== END 2018-08-09 09:24 | disposition home or self-care (01) ==
LOC: ORPAIN 07:18
PROVIDERS: ATTEND Anesthesiology
DX: M47.812 Spondylosis without myelopathy or radiculopathy, cervical region (principal); I25.10 Atherosclerotic heart disease of native coronary artery without angina pectoris; I10 Essential (primary) hypertension; K21.9 Gastro-esophageal reflux disease without esophagitis; Z95.5 Presence of coronary angioplasty implant and graft; Z88.8 Allergy status to other drugs, medicaments and biological substances
CPT/HCPCS: 64633; 64634; J2250; J3301; J3010; 99152; 99153

== ENCOUNTER → 2018-08-30 | Outpatient (CLI) | payer MEDICARE | LOC: PNWHC3 14:06 | PROVIDERS: ATTEND Specialist | DX: Z53.9 Procedure and treatment not carried out, unspecified reason (principal) ==

== ENCOUNTER → 2018-08-30 | Outpatient (CLI) | payer MEDICARE ==
[2018-08-30 14:37] VITALS: BP 135/76; PULSE 76; RESP 16
--- NOTE | 2018-08-30 15:12 | P.PN ---
Subjective Progress Note Date: 08/30/18 This is a follow-up visit for this 67 years old male with a chronic history of severe neck pain patient diagnosed with cervical spondylosis, a few weeks ago we have done radiofrequency ablation of the cervical medial branch, patient reports that after the radiofrequency his neck pain improved completely had no more neck pain, he had no focal neurological deficit, he had no motor or sensory deficit, he is very satisfied with the result of the treatment, but patient reported that he had occasional low back pain, he denies any weakness in his lower extremity Objective - Vital Signs Vital signs: Vital Signs Temp Pulse 76 08/30/18 14:34 Resp 16 08/30/18 14:34 BP 135/76 08/30/18 14:34 Pulse Ox Intake & Output 08/29/18 08/30/18 08/30/18 18:59 06:59 18:59 Weight 86.183 kg - Exam Physical Examinations : -Constitutiona : Cooperative , not in acute distress . -HEENT : nech : supple , no Lymphadenopathy , normal thyroid size . eyes : no ptosis , no icterus, no photophobia . ENT : normal of hearing , normal oropharynx , no Thrush . - Respiratory : Chest clear to auscultations Bilaterally , no wheezing , no Rhonchi . - Cardiovascula : regular rate and rhythem , S1 , S2 , no S3 , no S4. - Gastrointestina : abdomen soft no tenderness , bowel sounds , no organomegally . - Genitourinary : Defferred . - neurologic : Cranial nerve II to XII intact , no focal neurological deffecit . -psychatric : alert , oriented X 3 , appropriate affect , intact judgment and insight . -Lymphatic : no Lymphadenopathy . - musculoskeltal : Cervical Spine motor stregnth in the deltoid and biceps, normal right side , normal Left side motor stregnth biceps and the wrist extensors normal right side ,normal left side . motor stregnth in the triceps muscle . normal Right side , normal Left side Lumber spine moter stegnth lower extremities ,thigh and legs 5/5 Right side , 5/5 Left side Assessment and Plan Plan: Assessment and plan= chronic neck pain secondary to cervical spondylosis, neck pain improved after the radiofrequency Patient will follow up with the pain clinic when necessary. - PQRS measures = - Patient's medications are documented in the chart. -Tobacco use is negative and counseling.Given. -Patient's has not received pneumococcal vaccine. -Advanced care planning discussed, patient not eligible. -Opiate contract signed. -Pain negative and follow-up when necessary -Patient's blood pressure measured [135/76 ] , and documented in the record ,and patient will follow up with the primary care. -Patient's weight was measured and body mass index [25.8 ] above the normal limits and counseling was done. and patient instructed to follow-up with the primary care physician. -Patient was not identified as an unhealthy alcohol user Time with Patient: Less than 30
== END ==
LOC: PNWHC3 14:11
PROVIDERS: ATTEND Specialist
DX: G89.29 Other chronic pain (principal); M47.812 Spondylosis without myelopathy or radiculopathy, cervical region
CPT/HCPCS: 99211

== ENCOUNTER 2018-09-20 17:33 | Inpatient (IN) | payer MEDICARE ==
[2018-09-20] MEDS ORDERED: diphenhydrAMINE 50 MG/ML 1 ML VIAL IVP STA (18:43)
[2018-09-20] MEDS ORDERED: METOCLOPRAMIDE 5 MG/ML 2 ML VIAL IVP STA (18:43)
[2018-09-20] MEDS ORDERED: SODIUM CHLORIDE 0.9% 1,000 ML IV STA (18:43)
[2018-09-20] MEDS ORDERED: PANTOPRAZOLE 40 MG/10 ML VIAL IVP STA (18:43)
[2018-09-20 19:06] LABS: Appearance,Urine Clear (Clear); Bilirubin,Urine Negative (Negative); Blood,Urine Negative (Negative); Color,Urine Yellow; Glucose,Urine (UA) Negative (Negative); Ketones,Urine Trace (Negative); Leukocyte Esterase,Urine Negative (Negative); Nitrite,Urine Negative (Negative); PH, Urine 7.5 (5.0-8.0); Protein,Urine Negative (Negative); Specific Gravity,Urine 1.013 (1.001-1.035); Urobilinogen,Urine <2.0 mg/dL (<2.0)
[2018-09-20 19:10] LABS: Prothrombin Time 10.4 sec (9.0-12.0)
[2018-09-20 19:13] LABS: Basophils % (A) 0 %; Eosinophils # (A) 0.2 k/uL (0-0.7); Eosinophils % (A) 2 %; HCT 40.5 % (39.0-53.0); HGB 13.8 gm/dL (13.0-17.5); Lymphocytes % (A) 20 %; MCH 29.6 pg (25.0-35.0); MCV 86.9 fL (80.0-100.0); Mean Platelet Volume 5.8; Monocytes % (A) 10 %; Neutrophils # (A) 6.5 k/uL (1.3-7.7); Neutrophils % (A) 65 %; Platelet Count 411 k/uL (150-450); RBC 4.66 m/uL (4.30-5.90); RDW 12.2 % (11.5-15.5)
[2018-09-20 19:15] LABS: ALT 15 U/L (21-72); AST 21 U/L (17-59); African American GFR (CKD) >90 (>60 ml/min/1.73 sqM); Albumin 4.7 g/dL (3.5-5.0); Alkaline Phosphatase 100 U/L (38-126); Anion Gap 17 mmol/L; Blood Urea Nitrogen 6 mg/dL (9-20); Calcium 8.9 mg/dL (8.4-10.2); Carbon Dioxide 20 mmol/L (22-30); Chloride 82 mmol/L (98-107); Creatine Kinase 62 U/L (55-170); Glucose 116 mg/dL (74-99); Potassium 3.7 mmol/L (3.5-5.1); Total Bilirubin 0.7 mg/dL (0.2-1.3); Total Protein 7.5 g/dL (6.3-8.2)
[2018-09-20 19:22] LABS: Sodium 119 mmol/L (137-145)
--- NOTE | 2018-09-20 20:39 | CT ---
EXAMINATION TYPE: CT brain wo con DATE OF EXAM: 09/20/2018 HISTORY: LEO and dizziness CT DLP: 1099.4 mGycm. Automated Exposure Control for Dose Reduction was Utilized. TECHNIQUE: CT scan of the head is performed without contrast. COMPARISON: CT brain June 04, 2017 FINDINGS: There is no acute intracranial hemorrhage or midline shift identified. There is diffuse v entricular and sulcal prominence consistent with diffuse age-related cerebral atrophy. There is low- attenuation in the periventricular white matter consistent with chronic small vessel ischemic change. The globes are intact and the visualized sinuses are clear. IMPRESSION: No acute intracranial hemorrhage or midline shift. There is mild diffuse age-related ce rebral atrophy and chronic small vessel ischemic change redemonstrated. No significant change from p rior.
--- NOTE | 2018-09-20 20:54 | XR ---
EXAMINATION TYPE: XR abdomen acute w cxr DATE OF EXAM: 09/20/2018 CLINICAL HISTORY: Nausea vomiting and diarrhea for 3 days. TECHNIQUE: Single frontal view of chest is obtained. Supine and upright views of the abdomen are acq uired. COMPARISON: Chest x-ray with acute abdominal series June 05, 2017. CT abdomen and pelvis January 25, 2018.. FINDINGS: The lungs are grossly clear without pleural effusion or pneumothorax. Cardiac silhouette size appears within normal limits. Osseous structures are intact. Gas is noted in nondistended small bowel loops. Gas and fecal material is seen in nondistended colon . Cholecystectomy clips are redemonstrated. No pneumoperitoneum or suspicious calcification. Levoconv ex scoliosis centered at L4 level redemonstrated. Moderate disc space narrowing and spurring right L4 -L5 level again seen. Moderate narrowing both hip joints redemonstrated. IMPRESSION: 1. No acute pulmonary process. 2. Overall nonobstructive bowel gas pattern remains present.
[2018-09-20] MEDS ORDERED: KETOROLAC 30 MG/ML 1 ML VIAL IVP STA (21:02)
[2018-09-20] MEDS ORDERED: DEXAMETHASONE SOD PHOSPHATE 10 MG/ML 1 ML VIAL IV STA (21:03)
--- NOTE | 2018-09-20 21:08 | ED ---
Abdominal Pain HPI - General Chief Complaint: Abdominal Pain Stated Complaint: digestive problems Source: patient, family Mode of arrival: wheelchair Limitations: no limitations - History of Present Illness Initial Comments: The patient is a 67-year-old male who presents to the emergency department with reported intractable nausea and vomiting since Thursday. The is at bedside and provides majority of the history. She states that the patient does have history of similar episodes in the past. He does have a reported hiatal hernia which causes him and epigastric discomfort. On Thursday the patient started having multiple episodes of non-bloody, nonbilious vomiting. He has been unable to tolerate any solid foods. She did get him to drink half of the Pedialyte today. The patient reports epigastric abdominal pain. Denies any chest pain or shortness of breath. Fevers or chills. Denies eating any tainted foods. No recent travel or antibiotic use. The did note today that the patient became relatively confused. This did happen previously when the patient had an episode of hyponatremia. She was concerned for this she did transport the patient to the emergency department. He denies ripping or tearing sensation to his back. No pain into his lower extremities no blunt head trauma. Denies any visual changes, unilateral numbness or weakness. No neck pain or stiffness. There are no alleviating, precipitating or modifying factors - Related Data Home Medications Medication Instructions Recorded Confirmed Simvastatin [Zocor] 40 mg PO HS 07/12/13 09/20/18 Amitriptyline HCl 10 mg PO HS 01/26/16 09/20/18 Brimonidine Tartrate [Alphagan P 1 drop LEFT EYE BID 02/20/16 09/20/18 0.2% Ophth Soln] Pantoprazole Sodium 40 mg PO BID 06/26/16 09/20/18 Dicyclomine [Bentyl] 10 mg PO TID 06/04/17 09/20/18 Dorzolamide-Timol 2.23%/0.68% 1 drop LEFT EYE BID 01/27/18 09/20/18 [Cosopt] Sodium Chloride Tab 1 gm PO DAILY 01/27/18 09/20/18 Gabapentin [Neurontin] 300 mg PO TID 04/26/18 09/20/18 prednisoLONE ACETATE 1% OPHTH 1 drops RIGHT EYE BID 04/26/18 09/20/18 [Pred Forte 1%] Aspirin 81 mg PO DAILY 05/27/18 09/20/18 Hydrochlorothiazide [Hydrodiuril] 25 mg PO DAILY 09/20/18 09/20/18 Latanoprost [Xalatan 0.005%] 1 drop LEFT EYE HS 09/20/18 09/20/18 Losartan Potassium 100 mg PO DAILY 09/20/18 09/20/18 Metoprolol Tartrate [Lopressor] 25 mg PO BID 09/20/18 09/20/18 Ondansetron [Zofran ODT] 4 mg PO BID PRN 09/20/18 09/20/18 Sucralfate [Carafate] 1 gm PO ACHS 09/20/18 09/20/18 Allergies Allergy/AdvReac Type Severity Reaction Status Date / Time atorvastatin [From Lipitor] AdvReac MUSCLE Verified 09/20/18 19:05 CRAMPS Review of Systems ROS Statement: Those systems with pertinent positive or pertinent negative responses have been documented in the HPI. ROS Other: All systems not noted in ROS Statement are negative. Past Medical History Past Medical History: Coronary Artery Disease (CAD), Chest Pain / Angina, Eye Disorder, GERD/Reflux, Hyperlipidemia, Hypertension, Myocardial Infarction ([place]), Osteoarthritis (OA) Additional Past Medical History / Comment(s): Neck pain, SVT with ablation, duodenal ulcers, chronic duodenal stricture, bilateral glaucoma, sinusitis, migraines, anemia,esophagitis,hiatal hernia, chronic back pain, past fx ribs/sternum Last Myocardial Infarction Date:: 1999 History of Any Multi-Drug Resistant Organisms: None Reported Past Surgical History: Cardiac Ablation, Cholecystectomy, Heart Catheterization With Stent Additional Past Surgical History / Comment(s): stent right eye 03/2018, PCI with 3 stents, sinus surgery, cataracts bilaterally with lens implants, EGDs/colon oscopies, Past Anesthesia/Blood Transfusion Reactions: No Reported Reaction Additional Past Anesthesia/Blood Transfusion Reaction / Comment(s): Pt has had past multiple transfusions without reaction. Date of Last Stent Placement:: 1999 Past Psychological History: Anxiety Smoking Status: Former smoker Past Alcohol Use History: None Reported Past Drug Use History: None Reported - Past Family History Father Additional Family Medical History / Comment(s): Father at the age of 68yrs from a ruptured aortic aneurysm. Mother Additional Family Medical History / Comment(s): Mother lived into her 80's. Brother(s) Family Medical History: Cancer General Exam Limitations: no limitations Course Vital Signs 09/20/18 09/20/18 09/20/18 18:27 21:31 22:02 Temperature 98.5 F 98.1 F Pulse Rate 84 Pulse Rate [ 81 Pulse Oximetery ] Respiratory 18 17 17 Rate Blood Pressure 144/91 Blood Pressure 139/75 [Right Arm] O2 Sat by Pulse 97 98 Oximetry Medical Decision Making - Medical Decision Making Upon arrival the patient is placed into room 3. He is hooked up to continuous pulse ox and cardiac monitoring. A thorough history and physical exam was performed. The patient does have a 12-lead EKG performed which uncertain normal sinus rhythm. Peripheral IV was established. The patient was given a liter bolus of 0.0% normal saline. He is also given 10 mg of Reglan and 25 mg of Benadryl for his nausea and headache. Laboratory studies were conducted. The patient was sent for a CT of his brain and acute abdominal series. The patient refuses a CT of his abdomen and pelvis at this time as he has had multiple the past. Upon return results there discuss with the patient is awake at bedside. The patient is a the sodium of 119 at this time. Because his I did call discuss case with Dr. Vallejo. He does recommend fluid hydration at 75 mL of 0.9% normal saline per hour. He would like lytes performed every 4 hours. The next lytes will be at midnight. A communication order is placed call to Dr. Vallejo with those results. I will admit the patient to Dr. Vahid jean. I did call discuss the case with him and he did accept admission of the patient. He is requesting that the patient go to the cardiac floor. The patient did agree to the treatment plan. He is requesting something further for his headache. I did provide him with 15 mg of Toradol IV. I also provided him with 10 mg of Decadron. Bridging orders were placed in the patient was transported to floor in stable condition - Lab Data Result diagrams: 09/20/18 18:50 09/21/18 02:08 Lab Results 09/20/18 09/20/18 09/20/18 Range/Units 18:50 18:50 18:50 WBC 10.0 (3.8-10.6) k/uL RBC 4.66 (4.30-5.90) m/uL Hgb 13.8 (13.0-17.5) gm/dL Hct 40.5 (39.0-53.0) % MCV 86.9 (80.0-100.0) fL MCH 29.6 (25.0-35.0) pg MCHC 34.0 (31.0-37.0) g/dL RDW 12.2 (11.5-15.5) % Plt Count 411 (150-450) k/uL Neutrophils % 65 % Lymphocytes % 20 % Monocytes % 10 % Eosinophils % 2 % Basophils % 0 % Neutrophils # 6.5 (1.3-7.7) k/uL Lymphocytes # 2.0 (1.0-4.8) k/uL Monocytes # 1.0 (0-1.0) k/uL Eosinophils # 0.2 (0-0.7) k/uL Basophils # 0.0 (0-0.2) k/uL PT (9.0-12.0) sec INR (<1.2) Sodium 119 L* (137-145) mmol/L Potassium 3.7 (3.5-5.1) mmol/L Chloride 82 L (98-107) mmol/L Carbon Dioxide 20 L (22-30) mmol/L Anion Gap 17 mmol/L BUN 6 L (9-20) mg/dL Creatinine 0.58 L (0.66-1.25) mg/dL Est GFR (CKD-EPI)AfAm >90 (>60 ml/min/1.73 sqM) Est GFR (CKD-EPI)NonAf >90 (>60 ml/min/1.73 sqM) Glucose 116 H (74-99) mg/dL Plasma Lactic Acid Ney 1.1 (0.7-2.0) mmol/L Calcium 8.9 (8.4-10.2) mg/dL Total Bilirubin 0.7 (0.2-1.3) mg/dL AST 21 (17-59) U/L ALT 15 L (21-72) U/L Alkaline Phosphatase 100 (38-126) U/L Creatine Kinase 62 (55-170) U/L Troponin I (0.000-0.034) ng/mL Total Protein 7.5 (6.3-8.2) g/dL Albumin 4.7 (3.5-5.0) g/dL Lipase 85 (23-300) U/L Urine Color Urine Appearance (Clear) Urine pH (5.0-8.0) Ur Specific [place] (1.001-1.035) Urine Protein (Negative) Urine Glucose (UA) (Negative) Urine Ketones (Negative) Urine Blood (Negative) Urine Nitrite (Negative) Urine Bilirubin (Negative) Urine Urobilinogen (<2.0) mg/dL Ur Leukocyte Esterase (Negative) 09/20/18 09/20/18 09/20/18 Range/Units 18:50 18:50 18:50 WBC (3.8-10.6) k/uL RBC (4.30-5.90) m/uL Hgb (13.0-17.5) gm/dL Hct (39.0-53.0) % MCV (80.0-100.0) fL MCH (25.0-35.0) pg MCHC (31.0-37.0) g/dL RDW (11.5-15.5) % Plt Count (150-450) k/uL Neutrophils % % Lymphocytes % % Monocytes % % Eosinophils % % Basophils % % Neutrophils # (1.3-7.7) k/uL Lymphocytes # (1.0-4.8) k/uL Monocytes # (0-1.0) k/uL Eosinophils # (0-0.7) k/uL Basophils # (0-0.2) k/uL PT 10.4 (9.0-12.0) sec INR 1.0 (<1.2) Sodium (137-145) mmol/L Potassium (3.5-5.1) mmol/L Chloride (98-107) mmol/L Carbon Dioxide (22-30) mmol/L Anion Gap mmol/L BUN (9-20) mg/dL Creatinine (0.66-1.25) mg/dL Est GFR (CKD-EPI)AfAm (>60 ml/min/1.73 sqM) Est GFR (CKD-EPI)NonAf (>60 ml/min/1.73 sqM) Glucose (74-99) mg/dL Plasma Lactic Acid Ney (0.7-2.0) mmol/L Calcium (8.4-10.2) mg/dL Total Bilirubin (0.2-1.3) mg/dL AST (17-59) U/L ALT (21-72) U/L Alkaline Phosphatase (38-126) U/L Creatine Kinase (55-170) U/L Troponin I <0.012 (0.000-0.034) ng/mL Total Protein (6.3-8.2) g/dL Albumin (3.5-5.0) g/dL Lipase (23-300) U/L Urine Color Yellow Urine Appearance Clear (Clear) Urine pH 7.5 (5.0-8.0) Ur Specific [place] 1.013 (1.001-1.035) Urine Protein Negative (Negative) Urine Glucose (UA) Negative (Negative) Urine Ketones Trace H (Negative) Urine Blood Negative (Negative) Urine Nitrite Negative (Negative) Urine Bilirubin Negative (Negative) Urine Urobilinogen <2.0 (<2.0) mg/dL Ur Leukocyte Esterase Negative (Negative) - EKG Data EKG Comments: EKG demonstrates normal sinus rhythm with ventricular rate of 80. [place] interval 200. QRS 90. QTC 452. The Q wave in lead 3. No acute ST segment elevations or depressions. Disposition Clinical Impression: Nausea and vomiting, Migraine headache, Acute encephalopathy, Hyponatremia, D ehydration Disposition: ADMITTED IP TO THIS [facility] Condition: Serious Is patient prescribed a controlled substance at d/c from ED?: No Decision to Admit Reason: Admit from EC Decision Date: 09/20/18 Decision Time: 21:10
[2018-09-20] MEDS ORDERED: NALOXONE 0.4 MG/ML 1 ML VIAL IV PRN (21:11)
[2018-09-20] MEDS: SODIUM CHLORIDE 0.9% 1,000 ML IV SCH (21:25)
[2018-09-20] MEDS: ONDANSETRON 4 MG/2 ML VIAL IVP PRN (21:26)
[2018-09-20 22:16] VITALS: BMI 25.0
[2018-09-21] MEDS: KETOROLAC 30 MG/ML 1 ML VIAL IVP PRN ×2 (01:39→06:39)
[2018-09-21 03:20] LABS: Potassium 3.5 mmol/L (3.5-5.1)
[2018-09-21] MEDS: ONDANSETRON 4 MG/2 ML VIAL IVP PRN ×2 (06:17→19:41)
[2018-09-21] MEDS: PANTOPRAZOLE 40 MG TABLET PO SCH ×2 (06:38→17:17)
[2018-09-21 06:41] LABS: Basophils % (A) 0 %; Eosinophils % (A) 0 %; HGB 12.9 gm/dL (13.0-17.5); Lymphocytes # (A) 0.7 k/uL (1.0-4.8); Lymphocytes % (A) 11 %; MCH 30.1 pg (25.0-35.0); MCHC 33.9 g/dL (31.0-37.0); MCV 88.7 fL (80.0-100.0); Mean Platelet Volume 5.7; Monocytes # (A) 0.1 k/uL (0-1.0); Monocytes % (A) 2 %; Neutrophils # (A) 5.4 k/uL (1.3-7.7); Neutrophils % (A) 86 %; Platelet Count 376 k/uL (150-450); RBC 4.29 m/uL (4.30-5.90); RDW 12.4 % (11.5-15.5); WBC 6.2 k/uL (3.8-10.6)
[2018-09-21 06:51] LABS: African American GFR (CKD) >90 (>60 ml/min/1.73 sqM); Anion Gap 13 mmol/L; Blood Urea Nitrogen 9 mg/dL (9-20); Calcium 8.6 mg/dL (8.4-10.2); Carbon Dioxide 19 mmol/L (22-30); Chloride 91 mmol/L (98-107); Glucose 152 mg/dL (74-99); Sodium 123 mmol/L (137-145)
[2018-09-21] MEDS: METOPROLOL TARTRATE 25 MG TAB PO SCH ×2 (10:23→21:52)
[2018-09-21] MEDS: ASPIRIN 81 MG PO SCH (10:23)
[2018-09-21] MEDS: BRIMONIDINE TARTRATE 0.2% DROPS 5 ML BTL LEFT EYE SCH ×2 (10:24→21:51)
[2018-09-21] MEDS: DORZOLAMIDE-TIMOLOL 2.23%/0.68 10ML BTL LEFT EYE SCH ×2 (10:24→21:52)
[2018-09-21] MEDS: prednisoLONE ACETATE 1% OPHTH DROPS 5 ML BTL RIGHT EYE SCH ×2 (10:25→21:52)
[2018-09-21] MEDS: BUTALB/APAP/CAFF 50-325-40MG TAB PO PRN ×3 (11:44→22:28)
[2018-09-21] MEDS: SODIUM CHLORIDE TAB 1 GM TAB PO SCH (11:45)
[2018-09-21] MEDS: GABAPENTIN 300 MG CAP PO SCH ×3 (11:45→21:53)
[2018-09-21] MEDS: DICYCLOMINE 10 MG CAP PO SCH ×3 (11:45→21:53)
[2018-09-21] MEDS: LOSARTAN 50 MG TAB PO SCH (11:45)
[2018-09-21] MEDS: SODIUM CHLORIDE 0.9% 1,000 ML IV SCH (11:45)
[2018-09-21] MEDS: SUCRALFATE 1 GM TAB PO SCH ×3 (11:51→21:53)
--- NOTE | 2018-09-21 12:06 | P.NPCON ---
History of Present Illness - Reason for Consult hyponatremia - History of Present Illness Reason for consultation: Hyponatremia History of present illness: Patient is a 67-year-old male seen in consultation for hyponatremia. Patient's sodium level was 119 on admission. Patient received 1 L of normal saline bolus and was started on normal saline at 75 mL an hour for maintenance fluids. Sodium level was 123 this morning. Patient has history of hyponatremia and is maintained on sodium chloride tablet at home. He is also taking hydrochlorothiazide 25 mg daily. He admits to good urine output. No hematuria or dysuria. Patient states the last 3 days he is having episodes of nausea and vomiting. Oral intake has not been good. He's been drinking liquids to keep himself hydrated. However he hasn't been drinking excessive amounts of fluid. Hemodynamically he is stable. He is awake and alert. No vomiting today . Denies use of nonsteroidals. GFR at baseline. No history of malignancy. Vital signs are stable. General: The patient appeared well nourished and normally developed. HEENT: Head exam is unremarkable. Neck is without jugular venous distension. LUNGS: Lungs are clear to auscultation and percussion. Breath sounds decreased. HEART: Rate and Rhythm are regular. First and second heart sounds normal. No murmurs, rubs or gallops. ABDOMEN: Abdominal exam reveals normal bowel sounds. Non-tender and non- distended. No evidence of peritonitis. EXTREMITITES: No clubbing, cyanosis, or edema. Past Medical History Past Medical History: Coronary Artery Disease (CAD), Chest Pain / Angina, Eye Disorder, GERD/Reflux, Hyperlipidemia, Hypertension, Myocardial Infarction ([place]), Osteoarthritis (OA) Additional Past Medical History / Comment(s): Neck pain, SVT with ablation, duodenal ulcers, chronic duodenal stricture, bilateral glaucoma, sinusitis, migraines, anemia,esophagitis,hiatal hernia, chronic back pain, past fx r ibs/sternum Last Myocardial Infarction Date:: 1999 History of Any Multi-Drug Resistant Organisms: None Reported Past Surgical History: Cardiac Ablation, Cholecystectomy, Heart Catheterization With Stent Additional Past Surgical History / Comment(s): stent right eye 03/2018, PCI with 3 stents, sinus surgery, cataracts bilaterally with lens implants, EGDs/colonoscopies, Past Anesthesia/Blood Transfusion Reactions: No Reported Reaction Additional Past Anesthesia/Blood Transfusion Reaction / Comment(s): Pt has had past multiple transfusions without reaction. Date of Last Stent Placement:: 1999 Past Psychological History: Anxiety Smoking Status: Former smoker Past Alcohol Use History: None Reported Past Drug Use History: None Reported - Past Family History Father Additional Family Medical History / Comment(s): Father at the age of 68yrs from a ruptured aortic aneurysm. Mother Additional Family Medical History / Comment(s): Mother lived into her 80's. Brother(s) Family Medical History: Cancer Medications and Allergies Home Medications Medication Instructions Recorded Confirmed Type Simvastatin [Zocor] 40 mg PO HS 07/12/13 09/20/18 History Amitriptyline HCl 10 mg PO HS 01/26/16 09/20/18 History Brimonidine Tartrate [Alphagan P 1 drop LEFT EYE BID 02/20/16 09/20/18 History 0.2% Ophth Soln] Pantoprazole Sodium 40 mg PO BID 06/26/16 09/20/18 History Dicyclomine [Bentyl] 10 mg PO TID 06/04/17 09/20/18 History Dorzolamide-Timol 2.23%/0.68% 1 drop LEFT EYE BID 01/27/18 09/20/18 History [Cosopt] Sodium Chloride Tab 1 gm PO DAILY 01/27/18 09/20/18 History Gabapentin [Neurontin] 300 mg PO TID 04/26/18 09/20/18 History prednisoLONE ACETATE 1% OPHTH 1 drops RIGHT EYE BID 04/26/18 09/20/18 History [Pred Forte 1%] Aspirin 81 mg PO DAILY 05/27/18 09/20/18 History Hydrochlorothiazide [Hydrodiuril] 25 mg PO DAILY 09/20/18 09/20/18 History Latanoprost [Xalatan 0.005%] 1 drop LEFT EYE HS 09/20/18 09/20/18 History Losartan Potassium 100 mg PO DAILY 09/20/18 09/20/18 History Metoprolol Tartrate [Lopressor] 25 mg PO BID 09/20/18 09/20/18 History Ondansetron [Zofran ODT] 4 mg PO BID PRN 09/20/18 09/20/18 History Sucralfate [Carafate] 1 gm PO ACHS 09/20/18 09/20/18 History Allergies Allergy/AdvReac Type Severity Reaction Status Date / Time atorvastatin [From Lipitor] AdvReac MUSCLE Verified 09/20/18 19:05 CRAMPS Physical Exam Vitals: Vital Signs Temp Pulse Pulse Resp BP BP Pulse Ox 09/21/18 07:30 86 16 140/83 98 09/21/18 04:00 67 17 09/21/18 00:00 98.2 F 74 16 130/77 96 09/20/18 22:02 17 09/20/18 21:31 98.1 F 81 17 139/75 98 09/20/18 18:27 98.5 F 84 18 144/91 97 Intake and Output 09/20/18 09/21/18 09/21/18 22:59 06:59 14:59 Intake Total 240 Balance 240 Intake: Oral 240 Other: # Voids 1 1 Weight 83.915 kg 81.1 kg Results - Lab Results Most recent lab results Calcium 8.6 mg/dL (8.4-10.2) 09/21/18 06:07 09/21/18 06:07 09/21/18 06:07 Assessment and Plan Plan: Assessment: 1. Hypovolemic hyponatremia secondary to vomiting further worsened with the use of hydrochlorothiazide. Sodium level 119 on admission and is up to 123 with IV fluids. 2. Benign hypertension. Controlled. 3. Metabolic acidosis secondary to IV fluids. Plan: Maintain normal saline at 75 mL an hour. 1200 mL fluid restriction. Encourage oral solute intake, especially protein. Resume sodium chloride tablet 1 g daily. Check TSH, PTHrp and uric acid level. Follow up urine studies. Repeat sodium level this evening. Thank you for the consultation. I will continue to follow the patient with you during his hospital stay.
--- NOTE | 2018-09-21 13:50 | P.HPIM ---
History of Present Illness H&P Date: 09/21/18 Chief Complaint: Abdominal pain This is a 67-year-old male patient of Dr. Castaneda with past medical history of coronary artery disease status post stenting, SVT status post ablation, steroid injections of the cervical spine along with radiofrequency ablation, history of gastric ulcers, chronic duodenal stricture EGD in 2016 suggested stable duodenal stricture, patient sees Dr. Subramanian last seen in December 2017 during hospitalization in which patient underwent EGD with biopsy findings mild gastritis involving the proximal body of the stomach status post biopsy, nonobstructive duodenal stricture along the duodenal sweep, patchy areas of erythema with couple of linear erosions in the distal esophagus consistent with L8 grade B reflux esophagitis. Biopsy report showed gastric body biopsy with chronic gastritis, H. pylori negative. Esophagus biopsy showed acute and chronic esophagitis consistent with reflux esophagitis. This was negative for fungal organisms. Patient has a history of seizure activity in 2018 admission secondary to hyponatremia at 112. Patient was recently started on hydrochlorothiazide by Dr. Castaneda. Patient presents to [facility] emergency center due to nausea and vomiting since Thursday. Patient had multiple episodes of nonbloody nonbilious vomiting starting on Thursday. He was unable to keep any solid food down. He was able to drink half of a Pedialyte yesterday. Patient complains of epigastric abdominal pain. No fever or chills. He complains of lightheadedness and dizziness. No diarrhea. was confirmed surgery regarding confusion and concern for hyponatremia as he has had this in the past. He is also complaining of headache. CBC was within normal limits, sodium 119, potassium 3.7, chloride 82, CO2 20. BUN 6 and creatinine 0.58 urea lactic acid 1.1. Liver function tests within normal limits, lipase 85. Troponin negative. Urinalysis showed trace ketones. EKG was a sinus rhythm with no acute ST-T segment changes. CAT scan of the brain showed no acute intracranial hemorrhage or midline shift. There is mild diffuse age-related cerebral atrophy and chronic small vessel ischemic changes redemonstrated. No significant change from prior. Chest x-ray reveals no acute pulmonary process. Abdominal x-ray reveals Overall nonobstructive PATTERN remains present patient was started on IV fluids, IV Protonix, Reglan, Toradol and Decadron. This morning, patient is most concerned with headache that is an 8 out of 10 at its in the frontal area and occipital region. Toradol is not helping and he usually takes Fioricet which we will order. Review of Systems Constitutional: Reports fatigue, Reports poor appetite, Reports weakness, Denies anorexia, Denies fever Ears, nose, mouth and throat: Reports vertigo, Denies dental pain, Denies dysphagia, Denies nasal congestion, Denies nasal discharge Cardiovascular: Reports lightheadedness, Denies chest pain, Denies decreased exercise tolerance, Denies dyspnea on exertion, Denies edema, Denies irregular heart beat, Denies leg edema, Denies syncope Respiratory: Denies cough, Denies cough with sputum, Denies dyspnea, Denies excessive sputum, Denies hemoptysis, Denies home oxygen, Denies wheezing Gastrointestinal: Reports abdominal pain, Reports loss of appetite, Reports nausea, Reports vomiting Genitourinary: Denies dysuria, Denies urinary retention Musculoskeletal: Denies frequent falls, Denies gait dysfunction Integumentary: Denies pruritus, Denies rash, Denies wounds Neurological: Denies aphasia, Denies change in speech, Denies seizures, Denies syncope, Denies vertigo Psychiatric: Denies anxiety, Denies depression Endocrine: Denies fatigue, Denies weight change Past Medical History Past Medical History: Coronary Artery Disease (CAD), Chest Pain / Angina, Eye Disorder, GERD/Reflux, Hyperlipidemia, Hypertension, Myocardial Infarction (CA), Osteoarthritis (OA) Additional Past Medical History / Comment(s): Neck pain, SVT with ablation, duodenal ulcers, chronic duodenal stricture, bilateral glaucoma, sinusitis, migraines, anemia,esophagitis,hiatal hernia, chronic back pain, past fx ribs/sternum Last Myocardial Infarction Date:: 1999 History of Any Multi-Drug Resistant Organisms: None Reported Past Surgical History: Cardiac Ablation, Cholecystectomy, Heart Catheterization With Stent Additional Past Surgical History / Comment(s): stent right eye 03/2018, PCI with 3 stents, sinus surgery, cataracts bilaterally with lens implants, EGDs/colonoscopies, Past Anesthesia/Blood Transfusion Reactions: No Reported Reaction Additional Past Anesthesia/Blood Transfusion Reaction / Comment(s): Pt has had past multiple transfusions without reaction. Date of Last Stent Placement:: 1999 Past Psychological History: Anxiety Smoking Status: Former smoker Past Alcohol Use History: None Reported Additional Past Alcohol Use History / Comment(s): Patient was a smoker for only a few years in his 40s. No illicit drug use, no alcohol use. He lives at home with his . Past Drug Use History: None Reported - Past Family History Father Additional Family Medical History / Comment(s): Father at the age of 69 f rom a ruptured abdominal aortic aneurysm. Mother Additional Family Medical History / Comment(s): Mother lived into her 80's. Brother(s) Family Medical History: Cancer Additional Family Medical History / Comment(s): The patient had 3 brothers. One from colon cancer with metastatic disease to the brain. One brother at age 79 from a myocardial infarction. He has 1 brother that is alive with history of skin cancer and diabetes. Sister(s) Additional Family Medical History / Comment(s): The patient is a total of 3 sisters. One in her 80s from myocardial infarction. One sister at age 58 from coronary artery disease and also had a valvular disorder. Patient has one sister alive with diabetes and multiple other medical conditions. Patient has 2 sons and 1 daughter with no major medical problems. Medications and Allergies Home Medications Medication Instructions Recorded Confirmed Type Simvastatin [Zocor] 40 mg PO HS 07/12/13 09/20/18 History Amitriptyline HCl 10 mg PO HS 01/26/16 09/20/18 History Brimonidine Tartrate [Alphagan P 1 drop LEFT EYE BID 02/20/16 09/20/18 History 0.2% Ophth Soln] Pantoprazole Sodium 40 mg PO BID 06/26/16 09/20/18 History Dicyclomine [Bentyl] 10 mg PO TID 06/04/17 09/20/18 History Dorzolamide-Timol 2.23%/0.68% 1 drop LEFT EYE BID 01/27/18 09/20/18 History [Cosopt] Sodium Chloride Tab 1 gm PO DAILY 01/27/18 09/20/18 History Gabapentin [Neurontin] 300 mg PO TID 04/26/18 09/20/18 History prednisoLONE ACETATE 1% OPHTH 1 drops RIGHT EYE BID 04/26/18 09/20/18 History [Pred Forte 1%] Aspirin 81 mg PO DAILY 05/27/18 09/20/18 History Hydrochlorothiazide [Hydrodiuril] 25 mg PO DAILY 09/20/18 09/20/18 History Latanoprost [Xalatan 0.005%] 1 drop LEFT EYE HS 09/20/18 09/20/18 History Losartan Potassium 100 mg PO DAILY 09/20/18 09/20/18 History Metoprolol Tartrate [Lopressor] 25 mg PO BID 09/20/18 09/20/18 History Ondansetron [Zofran ODT] 4 mg PO BID PRN 09/20/18 09/20/18 History Sucralfate [Carafate] 1 gm PO ACHS 09/20/18 09/20/18 History Allergies Allergy/AdvReac Type Severity Reaction Status Date / Time atorvastatin [From Lipitor] AdvReac MUSCLE Verified 09/20/18 19:05 CRAMPS Physical Exam Vitals: Vital Signs Temp Pulse Pulse Resp BP BP Pulse Ox 09/21/18 07:30 86 16 140/83 98 09/21/18 04:00 67 17 09/21/18 00:00 98.2 F 74 16 130/77 96 09/20/18 22:02 17 09/20/18 21:31 98.1 F 81 17 139/75 98 09/20/18 18:27 98.5 F 84 18 144/91 97 Intake and Output 09/20/18 09/21/18 09/21/18 22:59 06:59 14:59 Intake Total 240 Balance 240 Intake: Oral 240 Other: # Voids 1 1 Weight 83.915 kg 81.1 kg - Constitutional General appearance: cooperative, no distress - EENT Eyes: anicteric sclerae, PERRLA, normal appearance ENT: hearing grossly normal - Neck Neck: no lymphadenopathy, normal ROM, no other, no rigidity, no stridor, no thyromegaly - Respiratory Respiratory: bilateral: CTA, negative: diminished, dullness, rales, rhonchi - Cardiovascular Rhythm: Tachycardic Heart sounds: normal: S1, S2 Abnormal Heart Sounds: no systolic murmur, no diastolic murmur, no rub, no S3 Gallop, no S4 Gallop, no click, no other - Gastrointestinal General gastrointestinal: normal bowel sounds, soft tender in the epigastric region - Integumentary Integumentary: no rash - Neurologic Neurologic: CNII-XII intact - Musculoskeletal Musculoskeletal: gait normal, strength equal bilaterally - Psychiatric Psychiatric: A&O x's 3, appropriate affect Results CBC & Chem 7: 09/21/18 06:07 09/21/18 06:07 Labs: Abnormal Lab Results - Last 24 Hours (Table) 09/20/18 09/20/18 09/21/18 Range/Units 18:50 18:50 02:08 RBC (4.30-5.90) m/uL Hgb (13.0-17.5) gm/dL Hct (39.0-53.0) % Lymphocytes # (1.0-4.8) k/uL Sodium 119 L* 123 L (137-145) mmol/L Chloride 82 L 90 L (98-107) mmol/L Carbon Dioxide 20 L 19 L (22-30) mmol/L BUN 6 L (9-20) mg/dL Creatinine 0.58 L (0.66-1.25) mg/dL Glucose 116 H (74-99) mg/dL ALT 15 L (21-72) U/L Urine Ketones Trace H (Negative) 09/21/18 09/21/18 Range/Units 06:07 06:07 RBC 4.29 L (4.30-5.90) m/uL Hgb 12.9 L (13.0-17.5) gm/dL Hct 38.0 L (39.0-53.0) % Lymphocytes # 0.7 L (1.0-4.8) k/uL Sodium 123 L (137-145) mmol/L Chloride 91 L (98-107) mmol/L Carbon Dioxide 19 L (22-30) mmol/L BUN (9-20) mg/dL Creatinine 0.65 L (0.66-1.25) mg/dL Glucose 152 H (74-99) mg/dL ALT (21-72) U/L Urine Ketones (Negative) Thrombosis Risk Factor Assmnt - DVT/VTE Prophylaxis DVT/VTE Prophylaxis: Pharmacologic Prophylaxis ordered - Choose All That Apply Each Risk Factor Represents 2 Points: Age 61-74 years Thrombosis Risk Factor Assessment Total Risk Factor Score: 2 Thrombosis Risk Factor Assessment Level: Low Risk Assessment and Plan Plan: 1. Intractable nausea and vomiting likely secondary to severe gastritis with possible duodenal stricture worsening. Continue IV fluids of 0.9 normal saline at 75 mL per hour. Patient is currently on a clear liquid diet. Zofran as needed for nausea. Continue Protonix 40 mg twice daily. 2. Hyponatremia most likely secondary to a combination of dehydration and SIADH. Urine sodium, urine osmolality, serum osmolality ordered. Hydrochlorothiazide discontinued. Cortisol level, TSH ordered. Consult with Dr. Vallejo. 3. Metabolic encephalopathy secondary to hyponatremia. 4. Chronic migraine headaches, occipital neuritis. Continue amitriptyline 10 mg at bedtime, Toradol IV as needed 5. Chronic nausea and vomiting. 6. Hypertension. Continue losartan 100 mg daily, Lopressor 25 mg twice daily. 7. Hyperlipidemia. 8. History of hyponatremia with SIADH. 9. DVT prophylaxis. 10. GI prophylaxis. 11. Hyperlipidemia. Continue simvastatin 40 mg at bedtime. Patient will be admitted to the hospital for a minimum of 2 night stay. Discharge plan: Most likely return home. Impression and plan of care have been directed as dictated by the signing physician. Zahra Lainez nurse practitioner acting as scribe for signing physician.
[2018-09-21] MEDS ORDERED: GABAPENTIN 300 MG CAP PO SCH (16:00)
[2018-09-21] MEDS ORDERED: DICYCLOMINE 10 MG CAP PO SCH (16:00)
[2018-09-21] MEDS ORDERED: LOPERAMIDE 2 MG CAP PO PRN (18:40)
[2018-09-21] MEDS ORDERED: LOPERAMIDE 2 MG CAP PO STA (18:40)
[2018-09-21 19:37] LABS: Hemoglobin A1C 5.9 % (4.0-6.0)
[2018-09-21] MEDS ORDERED: DEXTROSE 5% IN WATER 1,000 ML IV SCH (21:45)
[2018-09-21] MEDS ORDERED: DESMOPRESSIN ACETATE 4 MCG/ML VIAL (MDV) IV STA ×2 (21:46→23:50)
[2018-09-21] MEDS: LATANOPROST 0.005% OPHTH DROPS 2.5 ML BTL LEFT EYE SCH (21:52)
[2018-09-21] MEDS: AMITRIPTYLINE HCL 10 MG TAB PO SCH (21:52)
[2018-09-21] MEDS: NON-FORMULARY DRUG (Simvastatin 40 MG) PO SCH (21:57)
[2018-09-22] MEDS ORDERED: DESMOPRESSIN ACETATE 4 MCG/ML VIAL (MDV) IV STA (00:05)
[2018-09-22 03:29] LABS: African American GFR (CKD) >90 (>60 ml/min/1.73 sqM); Anion Gap 8 mmol/L; Blood Urea Nitrogen 9 mg/dL (9-20); Carbon Dioxide 23 mmol/L (22-30); Chloride 100 mmol/L (98-107); Glucose 118 mg/dL (74-99); Magnesium 2.2 mg/dL (1.6-2.3); Potassium 3.9 mmol/L (3.5-5.1); Sodium 131 mmol/L (137-145)
[2018-09-22] MEDS: BUTALB/APAP/CAFF 50-325-40MG TAB PO PRN ×5 (05:18→23:04)
[2018-09-22] MEDS: PANTOPRAZOLE 40 MG TABLET PO SCH ×2 (06:31→17:00)
[2018-09-22] MEDS: SUCRALFATE 1 GM TAB PO SCH ×4 (06:31→21:42)
[2018-09-22] MEDS: SODIUM CHLORIDE TAB 1 GM TAB PO SCH (09:05)
[2018-09-22] MEDS: ASPIRIN 81 MG PO SCH (09:05)
[2018-09-22] MEDS: METOPROLOL TARTRATE 25 MG TAB PO SCH ×2 (09:05→21:42)
[2018-09-22] MEDS: GABAPENTIN 300 MG CAP PO SCH ×3 (09:05→21:42)
[2018-09-22] MEDS: DICYCLOMINE 10 MG CAP PO SCH ×3 (09:05→21:42)
[2018-09-22] MEDS: prednisoLONE ACETATE 1% OPHTH DROPS 5 ML BTL RIGHT EYE SCH ×2 (09:09→21:42)
[2018-09-22] MEDS: DORZOLAMIDE-TIMOLOL 2.23%/0.68 10ML BTL LEFT EYE SCH ×2 (09:10→21:41)
[2018-09-22] MEDS: BRIMONIDINE TARTRATE 0.2% DROPS 5 ML BTL LEFT EYE SCH ×2 (09:10→21:41)
--- NOTE | 2018-09-22 11:00 | P.PN ---
Subjective Patient is seen in follow-up for hyponatremia. Patient's sodium did improve to normal saline and was up to 135 last night. Subsequently the patient was given 1 g of IV DDAVP and the fluids were changed from normal saline to D5W at 70 mL an hour. Sodium level checked at 3 in the morning was 131. Patient is awake and alert. Oral intake is good. No vomiting or diarrhea. Vital signs are stable. General: The patient appeared well nourished and normally developed. HEENT: Head exam is unremarkable. Neck is without jugular venous distension. LUNGS: Lungs are clear to auscultation and percussion. Breath sounds decreased. HEART: Rate and Rhythm are regular. First and second heart sounds normal. No murmurs, rubs or gallops. ABDOMEN: Abdominal exam reveals normal bowel sounds. Non-tender and non- distended. No evidence of peritonitis. EXTREMITITES: No clubbing, cyanosis, or edema. Objective - Vital Signs Vital signs: Vital Signs Temp 98.6 F 09/21/18 20:00 Pulse 74 09/22/18 04:00 Resp 17 09/22/18 04:00 BP 133/65 09/22/18 04:00 Pulse Ox 98 09/22/18 04:00 Intake & Output 09/21/18 09/22/18 09/22/18 18:59 06:59 18:59 Intake Total 960 120 222 Output Total 3000 Balance -2040 120 222 Weight 79.9 kg Intake: Oral 960 120 222 Output: Urine 3000 Other: # Voids 2 2 2 - Labs CBC & Chem 7: 09/21/18 06:07 09/22/18 02:56 Labs: Abnormal Lab Results - Last 24 Hours (Table) 09/21/18 09/21/18 09/21/18 Range/Units 06:07 06:07 18:38 Sodium 135 L (137-145) mmol/L Creatinine (0.66-1.25) mg/dL Glucose (74-99) mg/dL Osmolality 249 L* (280-301) mosm/kg Uric Acid 2.4 L (3.5-8.5) mg/dL 09/22/18 09/22/18 Range/Units 02:56 02:56 Sodium 131 L (137-145) mmol/L Creatinine 0.62 L (0.66-1.25) mg/dL Glucose 118 H (74-99) mg/dL Osmolality 269 L (280-301) mosm/kg Uric Acid (3.5-8.5) mg/dL Assessment and Plan Plan: Assessment: 1. Hypovolemic hyponatremia secondary to vomiting further worsened with the use of hydrochlorothiazide. Sodium level 119 on admission and was up to 135 as of last night with normal saline. He was then given a dose of IV DDAVP and the fluids were changed to D5W. Repeat sodium level was 131 as of 3 in the morning. He was also noted to have a cortisol level of 1. 2. Benign hypertension. Controlled. 3. Metabolic acidosis secondary to IV fluids. Better. Plan: Hep-Lock IV fluids. Check sodium level and cortisol level now. If cortisol level still low, he will need cosyntropin stimulation admission test to further workup for adrenal insufficiency as well as endocrinology consu ltation outpatient. Avoid thiazide diuretics. Case discussed with the primary team.
[2018-09-22] MEDS ORDERED: COSYNTROPIN 0.25 MG VIAL IVP ONE (11:06)
[2018-09-22] MEDS: LOSARTAN 50 MG TAB PO SCH (11:52)
[2018-09-22 12:58] LABS: African American GFR (CKD) >90 (>60 ml/min/1.73 sqM); Anion Gap 11 mmol/L; Blood Urea Nitrogen 7 mg/dL (9-20); Calcium 8.3 mg/dL (8.4-10.2); Carbon Dioxide 22 mmol/L (22-30); Chloride 97 mmol/L (98-107); Glucose 139 mg/dL (74-99); Potassium 3.2 mmol/L (3.5-5.1); Sodium 130 mmol/L (137-145)
[2018-09-22] MEDS ORDERED: POTASSIUM CHLORIDE ER 20 MEQ TAB.ER PO STA (13:29)
--- NOTE | 2018-09-22 14:40 | P.PN ---
Subjective Progress Note Date: 09/22/18 This is a 67-year-old male patient of Dr. Castaneda with past medical history of coronary artery disease status post stenting, SVT status post ablation, steroid injections of the cervical spine along with radiofrequency ablation, history of gastric ulcers, chronic duodenal stricture EGD in 2017 sug gested stable duodenal stricture, patient sees Dr. Subramanian last seen in December 2017 during hospitalization in which patient underwent EGD with biopsy findings mild gastritis involving the proximal body of the stomach status post biopsy, nonobstructive duodenal stricture along the duodenal sweep, patchy areas of erythema with couple of linear erosions in the distal esophagus consistent with L8 grade B reflux esophagitis. Biopsy report showed gastric body biopsy with chronic gastritis, H. pylori negative. Esophagus biopsy showed acute and chronic esophagitis consistent with reflux esophagitis. This was negative for fungal organisms. Patient has a history of seizure activity in 2018 admission secondary to hyponatremia at 112. Patient was recently started on hydrochlorothiazide by Dr. Castaneda. Patient presents to [facility] emergency center due to nausea and vomiting since Thursday. Patient had multiple episodes of nonbloody nonbilious vomiting starting on Thursday. He was unable to keep any solid food down. He was able to drink half of a Pedialyte yesterday. Patient complains of epigastric abdominal pain. No fever or chills. He complains of lightheadedness and dizziness. No diarrhea. was confirmed surgery regarding confusion and concern for hyponatremia as he has had this in the past. He is also complaining of headache. CBC was within normal limits, sodium 119, potassium 3.7, chloride 82, CO2 20. BUN 6 and creatinine 0.58 urea lactic acid 1.1. Liver function tests within normal limits, lipase 85. Troponin negative. Urinalysis showed trace ketones. EKG was a sinus rhythm with no acute ST-T segment changes. CAT scan of the brain showed no acute intracranial hemorrhage or midline shift. There is mild diffuse age-related cerebral atrophy and chronic small vessel ischemic changes redemonstrated. No significant change from prior. Chest x-ray reveals no acute pulmonary process. Abdominal x-ray reveals Overall nonobstructive PATTERN remains present patient was started on IV fluids, IV Protonix, Reglan, Toradol and Decadron. This morning, patient is most concerned with headache that is an 8 out of 10 at its in the frontal area and occipital region. Toradol is not helping and he usually takes Fioricet which we will order. 09/22: Patient has been seen by Dr. Vallejo with recommendations to saline lock, 1200 mL fluid restriction, increase protein intake, continue sodium chloride tablet 1 g daily. Yesterday, patient was given DDAVP. Uric acid 2.4, osmolality 269, cortisol level 1, TSH 0.604. Hemoglobin A1c 5.9. Sodium this morning is 131. PTH related peptide is pending. Patient has undergone cosyntropin stimulation test and at 30 minutes cortisol level was 11 and 1 hour 13. Repeat lab work at noon showed a sodium of 1:30, potassium 3.2 which has been replaced, chloride 97, CO2 22, BUN 7, creatinine 0.52. Objective - Vital Signs Vital signs: Vital Signs Temp 97.9 F 09/22/18 08:00 Pulse 78 09/22/18 08:00 Resp 18 09/22/18 08:00 BP 139/66 09/22/18 08:00 Pulse Ox 100 09/22/18 08:00 Intake & Output 09/21/18 09/22/18 09/22/18 18:59 06:59 18:59 Intake Total 960 120 462 Output Total 3000 Balance -2039 120 462 Weight 79.9 kg Intake: Oral 960 120 462 Output: Urine 3000 Other: # Voids 2 2 2 - Exam Review of Systems Constitutional: Reports fatigue, Reports poor appetite, Reports weakness, Denies anorexia, Denies fever Ears, nose, mouth and throat: Reports vertigo, Denies dental pain, Denies dysphagia, Denies nasal congestion, Denies nasal discharge Cardiovascular: Reports lightheadedness, Denies chest pain, Denies decreased exercise tolerance, Denies dyspnea on exertion, Denies edema, Denies irregular heart beat, Denies leg edema, Denies syncope Respiratory: Denies cough, Denies cough with sputum, Denies dyspnea, Denies excessive sputum, Denies hemoptysis, Denies home oxygen, Denies wheezing Gastrointestinal: Reports abdominal pain, Reports loss of appetite, Reports nausea, Reports vomiting Genitourinary: Denies dysuria, Denies urinary retention Musculoskeletal: Denies frequent falls, Denies gait dysfunction Integumentary: Denies pruritus, Denies rash, Denies wounds Neurological: Denies aphasia, Denies change in speech, Denies seizures, Denies syncope, Denies vertigo Psychiatric: Denies anxiety, Denies depression Endocrine: Denies fatigue, Denies weight change - Constitutional General appearance: cooperative, no distress - EENT Eyes: anicteric sclerae, PERRLA, normal appearance ENT: hearing grossly normal - Neck Neck: no lymphadenopathy, normal ROM, no other, no rigidity, no stridor, no thyromegaly - Respiratory Respiratory: bilateral: CTA, negative: diminished, dullness, rales, rhonchi - Cardiovascular Rhythm: Tachycardic Heart sounds: normal: S1, S2 Abnormal Heart Sounds: no systolic murmur, no diastolic murmur, no rub, no S3 Gallop, no S4 Gallop, no click, no other - Gastrointestinal General gastrointestinal: normal bowel sounds, soft tender in the epigastric region - Integumentary Integumentary: no rash - Neurologic Neurologic: CNII-XII intact - Musculoskeletal Musculoskeletal: gait normal, strength equal bilaterally - Psychiatric Psychiatric: A&O x's 3, appropriate affect - Labs CBC & Chem 7: 09/21/18 06:07 09/22/18 12:27 Labs: Abnormal Lab Results - Last 24 Hours (Table) 09/21/18 09/22/18 09/22/18 Range/Units 18:38 02:56 02:56 Sodium 135 L 131 L (137-145) mmol/L Potassium (3.5-5.1) mmol/L Chloride (98-107) mmol/L BUN (9-20) mg/dL Creatinine 0.62 L (0.66-1.25) mg/dL Glucose 118 H (74-99) mg/dL Osmolality 269 L (280-301) mosm/kg Calcium (8.4-10.2) mg/dL 09/22/18 Range/Units 12:27 Sodium 130 L (137-145) mmol/L Potassium 3.2 L (3.5-5.1) mmol/L Chloride 97 L (98-107) mmol/L BUN 7 L (9-20) mg/dL Creatinine 0.52 L (0.66-1.25) mg/dL Glucose 139 H (74-99) mg/dL Osmolality (280-301) mosm/kg Calcium 8.3 L (8.4-10.2) mg/dL Assessment and Plan Plan: 1. Intractable nausea and vomiting likely secondary to severe gastritis with possible duodenal stricture worsening. IV fluids have been discontinued. Diet advanced to regular with 1800 ML fluid restriction. Zofran as needed for nausea. Continue Protonix 40 mg twice daily. 2. Hyponatremia most likely secondary to a combination of dehydration and SIADH. Urine sodium, urine osmolality, serum osmolality ordered. H ydrochlorothiazide discontinued. Cortisol level, TSH ordered. Consult with Dr. Vallejo. Patient is status post DDAVP, cosyntropin stimulation test 3. Metabolic encephalopathy secondary to hyponatremia. 4. Chronic migraine headaches, occipital neuritis. Continue amitriptyline 10 mg at bedtime, Toradol IV as needed 5. Chronic nausea and vomiting. 6. Hypertension. Continue losartan 100 mg daily, Lopressor 25 mg twice daily. 7. Hyperlipidemia. 8. History of hyponatremia with SIADH. 9. DVT prophylaxis. 10. GI prophylaxis. 11. Hyperlipidemia. Continue simvastatin 40 mg at bedtime. Discharge plan: Most likely return home tomorrow. Impression and plan of care have been directed as dictated by the signing physician. Zahra Lainez nurse practitioner acting as scribe for signing physician.
[2018-09-22] MEDS: LATANOPROST 0.005% OPHTH DROPS 2.5 ML BTL LEFT EYE SCH (21:42)
[2018-09-22] MEDS: AMITRIPTYLINE HCL 10 MG TAB PO SCH (21:43)
[2018-09-22] MEDS: NON-FORMULARY DRUG (Simvastatin 40 MG) PO SCH (21:46)
[2018-09-23] MEDS: BUTALB/APAP/CAFF 50-325-40MG TAB PO PRN ×2 (04:29→09:30)
[2018-09-23] MEDS: PANTOPRAZOLE 40 MG TABLET PO SCH (06:37)
[2018-09-23] MEDS: SUCRALFATE 1 GM TAB PO SCH ×2 (06:37→12:28)
[2018-09-23 07:28] LABS: African American GFR (CKD) >90 (>60 ml/min/1.73 sqM); Anion Gap 8 mmol/L; Blood Urea Nitrogen 5 mg/dL (9-20); Calcium 8.9 mg/dL (8.4-10.2); Carbon Dioxide 23 mmol/L (22-30); Chloride 103 mmol/L (98-107); Glucose 96 mg/dL (74-99); Magnesium 2.2 mg/dL (1.6-2.3); Sodium 134 mmol/L (137-145)
[2018-09-23 09:26] VITALS: BP 148/69; PULSE 78; RESP 16; TEMP 97.7
[2018-09-23] MEDS: METOPROLOL TARTRATE 25 MG TAB PO SCH (09:29)
[2018-09-23] MEDS: ASPIRIN 81 MG PO SCH (09:29)
[2018-09-23] MEDS: DICYCLOMINE 10 MG CAP PO SCH (09:29)
[2018-09-23] MEDS: LOSARTAN 50 MG TAB PO SCH ×2 (09:30→12:28)
[2018-09-23] MEDS: GABAPENTIN 300 MG CAP PO SCH (09:30)
[2018-09-23] MEDS: SODIUM CHLORIDE TAB 1 GM TAB PO SCH (09:30)
[2018-09-23] MEDS: DORZOLAMIDE-TIMOLOL 2.23%/0.68 10ML BTL LEFT EYE SCH (09:33)
[2018-09-23] MEDS: BRIMONIDINE TARTRATE 0.2% DROPS 5 ML BTL LEFT EYE SCH (09:33)
[2018-09-23] MEDS: prednisoLONE ACETATE 1% OPHTH DROPS 5 ML BTL RIGHT EYE SCH (09:33)
--- NOTE | 2018-09-23 11:10 | P.PN ---
Subjective Patient is seen in follow-up for hyponatremia. Sodium level 134 today. Oral intake is good. No active complaints. Vital signs are stable. General: The patient appeared well nourished and normally developed. HEENT: Head exam is unremarkable. Neck is without jugular venous distension. LUNGS: Lungs are clear to auscultation and percussion. Breath sounds decreased. HEART: Rate and Rhythm are regular. First and second heart sounds normal. No mu rmurs, rubs or gallops. ABDOMEN: Abdominal exam reveals normal bowel sounds. Non-tender and non-dis tended. No evidence of peritonitis. EXTREMITITES: No clubbing, cyanosis, or edema. Objective - Vital Signs Vital signs: Vital Signs Temp 97.7 F 09/23/18 09:15 Pulse 78 09/23/18 09:15 Resp 16 09/23/18 09:15 BP 148/69 09/23/18 09:15 Pulse Ox 97 09/23/18 09:15 Intake & Output 09/22/18 09/23/18 09/23/18 18:59 06:59 18:59 Intake Total 702 222 Balance 702 222 Weight 80.2 kg Intake: Oral 702 222 Other: Voiding Method Toilet # Voids 1 2 - Labs CBC & Chem 7: 09/21/18 06:07 09/23/18 06:28 Labs: Abnormal Lab Results - Last 24 Hours (Table) 09/22/18 09/23/18 Range/Units 12:27 06:28 Sodium 130 L 134 L (137-145) mmol/L Potassium 3.2 L (3.5-5.1) mmol/L Chloride 97 L (98-107) mmol/L BUN 7 L 5 L (9-20) mg/dL Creatinine 0.52 L 0.55 L (0.66-1.25) mg/dL Glucose 139 H (74-99) mg/dL Calcium 8.3 L (8.4-10.2) mg/dL Assessment and Plan Plan: Assessment: 1. Hypovolemic hyponatremia secondary to vomiting further worsened with the use of hydrochlorothiazide. There is also concern for adrenal insufficiency. Response to cosyntropin was suboptimal. 2. Benign hypertension. Controlled. 3. Metabolic acidosis secondary to IV fluids. Better. Plan: Added 2.5 mg hydrocortisone twice a day. Patient will follow-up with endocrinology outpatient for further workup for adrenal insufficiency. Avoid thiazide diuretics. Follow up outpatient in the next 1-2 weeks. Repeat BMP in 2-3 days postdischarge.
[2018-09-23] MEDS ORDERED: HYDROCORTISONE 10 MG TAB PO SCH (21:00)
[2018-09-23] MEDS ORDERED: HYDROCORTISONE 5 MG TABLET PO SCH (21:00)
--- NOTE | 2018-09-24 09:36 | P.DS ---
Providers Date of admission: 09/20/18 21:17 Expected date of discharge: 09/23/18 Attending physician: Kimberli Alanis Consults: 09/20/18 21:12 Consult Physician Urgent Consulting Provider: Garret Vallejo Consult Reason/Comments: acute hyponatremia, acute dehydration, n/v Do you want consulting provider notified?: Yes Primary care physician: Pop Castaneda MD Hospital Course: This is a 67-year-old male patient of Dr. Castaneda with past medical history of coronary artery disease status post stenting, SVT status post ablation, steroid injections of the cervical spine along with radiofrequency ablation, history of gastric ulcers, chronic duodenal stricture EGD in 2017 suggested stable duodenal stricture, patient sees Dr. Subramanian last seen in December 2017 during hospitalization in which patient underwent EGD with biopsy findings mild gastritis involving the proximal body of the stomach status post biopsy, nonobstructive duodenal stricture along the duodenal sweep, patchy areas of erythema with couple of linear erosions in the distal esophagus consistent with L8 grade B reflux esophagitis. Biopsy report showed gastric body biopsy with chronic gastritis, H. pylori negative. Esophagus biopsy showed acute and chronic esophagitis consistent with reflux esophagitis. This was negative for fungal organisms. Patient has a history of seizure activity in 2018 admission secondary to hyponatremia at 112. Patient was recently started on hydrochlorothiazide by Dr. Castaneda. Patient presents to [facility] emergency center due to nausea and vomiting since Thursday. Patient had multiple episodes of nonbloody nonbilious vomiting starting on Thursday. He was unable to keep any solid food down. He was able to drink half of a Pedialyte yesterday. Patient complains of epigastric abdominal pain. No fever or chills. He complains of lightheadedness and dizziness. No diarrhea. was confirmed surgery regarding confusion and concern for hyponatremia as he has had this in the past. He is also complaining of headache. CBC was within normal limits, sodium 119, potassium 3.7, chloride 82, CO2 20. BUN 6 and creatinine 0.58 urea lactic acid 1.1. Liver function tests within normal limits, lipase 85. Troponin negative. Urinalysis showed trace ketones. EKG was a sinus rhythm with no acute ST-T segment changes. CAT scan of the brain showed no acute intracranial hemorrhage or midline shift. There is mild diffuse age-related cerebral atrophy and chronic small vessel ischemic changes redemonstrated. No significant change from prior. Chest x-ray reveals no acute pulmonary process. Abdominal x-ray reveals Overall nonobstructive PATTERN remains present patient was started on IV fluids, IV Protonix, Reglan, Toradol and Decadron. This morning, patient is most concerned with headache that is an 8 out of 10 at its in the frontal area and occipital region. Toradol is not helping and he usually takes Fioricet which we will order. 09/22: Patient has been seen by Dr. Vallejo with recommendations to saline lock, 1200 mL fluid restriction, increase protein intake, continue sodium chloride tablet 1 g daily. Yesterday, patient was given DDAVP. Uric acid 2.4, osmolality 269, cortisol level 1, TSH 0.604. Hemoglobin A1c 5.9. Sodium this morning is 131. PTH related peptide is pending. Patient has undergone cosyntropin stimulation test and at 30 minutes cortisol level was 11 and 1 hour 13. Repeat lab work at noon showed a sodium of 1:30, potassium 3.2 which has been replaced, chloride 97, CO2 22, BUN 7, creatinine 0.52. Diarrhea has resolved. C. difficile toxin negative. Diet advanced. 09/23: Repeat sodium 134, potassium 4.0, chloride 103, CO2 23, BUN 5 and creatinine 0.55. as an outpatient. Patient had minimal response to the cosyntropin testing and will follow up with endocrinology as an outpatient. Patient will be discharged home today in stable condition. Discharge diagnoses: 1. Intractable nausea and vomiting likely secondary to severe gastritis with possible duodenal stricture worsening. 2. Hyponatremia most likely secondary to a combination of dehydration from nausea and vomiting, use of hydrochlorothiazide. 3. Metabolic encephalopathy secondary to hyponatremia. 4. Chronic migraine headaches, occipital neuritis. 5. Chronic nausea and vomiting. 6. Hypertension. 7. Hyperlipidemia. 8. History of hyponatremia with SIADH. 9. Metabolic acidosis secondary to IV fluids. 10. Hyperlipidemia. Discharge plan: home. Impression and plan of care have been directed as dictated by the signing physician. Zahra Lainez nurse practitioner acting as scribe for signing physician. Patient Condition at Discharge: Good Plan - Discharge Summary Discharge Rx Participant: No New Discharge Prescriptions: New Butalb/APAP/Caff 50-325-40Mg [Fioricet 50-325-40] 1 each PO Q4HR PRN tab PRN Reason: Headache Continue Simvastatin [Zocor] 40 mg PO HS Amitriptyline HCl 10 mg PO HS Brimonidine Tartrate [Alphagan P 0.2% Ophth Soln] 1 drop LEFT EYE BID Pantoprazole Sodium 40 mg PO BID Dicyclomine [Bentyl] 10 mg PO TID Sodium Chloride Tab 1 gm PO DAILY Dorzolamide-Timol 2.23%/0.68% [Cosopt] 1 drop LEFT EYE BID Gabapentin [Neurontin] 300 mg PO TID prednisoLONE ACETATE 1% OPHTH [Pred Forte 1%] 1 drops RIGHT EYE BID Aspirin 81 mg PO DAILY Metoprolol Tartrate [Lopressor] 25 mg PO BID Sucralfate [Carafate] 1 gm PO ACHS Ondansetron [Zofran ODT] 4 mg PO BID PRN PRN Reason: Nausea Losartan Potassium 100 mg PO DAILY Latanoprost [Xalatan 0.005%] 1 drop LEFT EYE HS Discontinued Hydrochlorothiazide [Hydrodiuril] 25 mg PO DAILY Discharge Medication List Simvastatin [Zocor] 40 mg PO HS 07/12/13 [History] Amitriptyline HCl 10 mg PO HS 01/26/16 [History] Brimonidine Tartrate [Alphagan P 0.2% Ophth Soln] 1 drop LEFT EYE BID 02/20/16 [History] Pantoprazole Sodium 40 mg PO BID 06/26/16 [History] Dicyclomine [Bentyl] 10 mg PO TID 06/04/17 [History] Dorzolamide-Timol 2.23%/0.68% [Cosopt] 1 drop LEFT EYE BID 01/27/18 [History] Sodium Chloride Tab 1 gm PO DAILY 01/27/18 [History] Gabapentin [Neurontin] 300 mg PO TID 04/26/18 [History] prednisoLONE ACETATE 1% OPHTH [Pred Forte 1%] 1 drops RIGHT EYE BID 04/26/18 [History] Aspirin 81 mg PO DAILY 05/27/18 [History] Latanoprost [Xalatan 0.005%] 1 drop LEFT EYE HS 09/20/18 [History] Losartan Potassium 100 mg PO DAILY 09/20/18 [History] Metoprolol Tartrate [Lopressor] 25 mg PO BID 09/20/18 [History] Ondansetron [Zofran ODT] 4 mg PO BID PRN 09/20/18 [History] Sucralfate [Carafate] 1 gm PO ACHS 09/20/18 [History] Butalb/APAP/Caff 50-325-40Mg [Fioricet 50-325-40] 1 each PO Q4HR PRN tab 09/23/18 [Rx] Follow up Appointment(s)/Referral(s): Pop Castaneda MD [Primary Care Provider] - 1 Week (Dr Castaneda's office took patient info and will call patient to set up follow-up appointment.) Theodore Castaneda MD [REFERRING] - 10/11/18 8:45 am Garret Vallejo DO [STAFF PHYSICIAN] - 10/27/18 11:40 am Patient Instructions/Handouts: Hyponatremia (DC), Fluid Restriction (DC) Activity/Diet/Wound Care/Special Instructions: DO NOT TAKE HYDROCHLOROTHIAZIDE AT ANYTIME IN THE FUTURE. Discharge Disposition: HOME SELF-CARE
== END 2018-09-23 14:10 | disposition home or self-care (01) | DRG 380 ==
LOC: EC 17:33 → 3SCARD 21:17
PROVIDERS: ADMIT Internal Medicine; ATTEND Internal Medicine
DX: K31.5 Obstruction of duodenum (principal); G93.41 Metabolic encephalopathy; E22.2 Syndrome of inappropriate secretion of antidiuretic hormone; E87.2 Acidosis; K29.70 Gastritis, unspecified, without bleeding; E86.0 Dehydration; E86.1 Hypovolemia; T50.2X5A Adverse effect of carbonic-anhydrase inhibitors, benzothiadiazides and other diuretics, initial encounter; K44.9 Diaphragmatic hernia without obstruction or gangrene; I25.10 Atherosclerotic heart disease of native coronary artery without angina pectoris; K21.0 Gastro-esophageal reflux disease with esophagitis; E78.5 Hyperlipidemia, unspecified; I10 Essential (primary) hypertension; G43.909 Migraine, unspecified, not intractable, without status migrainosus; M54.81 Occipital neuralgia; D64.9 Anemia, unspecified; G89.29 Other chronic pain; M54.9 Dorsalgia, unspecified; R19.7 Diarrhea, unspecified; M54.2 Cervicalgia; M19.90 Unspecified osteoarthritis, unspecified site; H40.9 Unspecified glaucoma; I25.2 Old myocardial infarction; Z79.82 Long term (current) use of aspirin; Z79.899 Other long term (current) drug therapy; Z87.11 Personal history of peptic ulcer disease; Z90.49 Acquired absence of other specified parts of digestive tract; Z95.5 Presence of coronary angioplasty implant and graft; Z87.891 Personal history of nicotine dependence; Z86.79 Personal history of other diseases of the circulatory system; Z86.59 Personal history of other mental and behavioral disorders; Z86.69 Personal history of other diseases of the nervous system and sense organs; Z98.42 Cataract extraction status, left eye; Z98.41 Cataract extraction status, right eye; Z96.1 Presence of intraocular lens; Z88.8 Allergy status to other drugs, medicaments and biological substances; Z82.49 Family history of ischemic heart disease and other diseases of the circulatory system; Z80.0 Family history of malignant neoplasm of digestive organs; Z80.8 Family history of malignant neoplasm of other organs or systems; Z83.3 Family history of diabetes mellitus
CPT/HCPCS: 36415; 70450; 74022; 80048; 80051; 80053; 81003; 82533; 82550; 83036; 83605; 83690; 83735; 83930; 84133; 84295; 84300; 84443; 84484; 84550; 85025; 85610; 87324; 93005; 96361; 96374; 96375; 99285

== ENCOUNTER 2018-10-06 12:03 | Inpatient (IN) | payer MEDICARE ==
[2018-10-06] MEDS ORDERED: ONDANSETRON 4 MG/2 ML VIAL IVP STA (12:34)
[2018-10-06] MEDS ORDERED: PANTOPRAZOLE 40 MG/10 ML VIAL IVP STA (12:34)
[2018-10-06] MEDS ORDERED: HYDROmorphone 1 MG/ML 1 ML SYRINGE IVP STA (12:34)
[2018-10-06] MEDS ORDERED: SODIUM CHLORIDE 0.9% 1,000 ML IV STA (12:34)
--- NOTE | 2018-10-06 12:46 | ED ---
General Adult HPI - General Chief complaint: Chest Pain Stated complaint: chest & abdominal pain/weakness Time Seen by Provider: 10/06/18 12:10 Source: patient, RN notes reviewed Mode of arrival: ambulatory Limitations: no limitations - History of Present Illness Initial comments: This is a 67-year-old male who presents emergency Department with a past history of stomach problems but he does not know specifically what kind. Patient states he has had these episodes multiple times and it usually stops drinking and eating and becomes dehydrated and needs to be admitted to the hospital. Patient states his abdominal pain started last night about 11:00 and he has vomited a couple times since then. Patient states she's had no fever or chills. But the pain is in the epigastric region radiating up into the chest. Patient denies any difficulty breathing or shortness of breath. Patient denies any palpitations. Patient denies any lightheadedness or dizziness. Patient states he in general feels weak. - Related Data Home Medications Medication Instructions Recorded Confirmed Simvastatin [Zocor] 40 mg PO HS 07/12/13 10/06/18 Brimonidine Tartrate [Alphagan P 1 drop LEFT EYE BID 02/20/16 10/06/18 0.2% Ophth Soln] Pantoprazole Sodium 40 mg PO BID 06/26/16 10/06/18 Dicyclomine [Bentyl] 10 mg PO TID 06/04/17 10/06/18 Dorzolamide-Timol 2.23%/0.68% 1 drop LEFT EYE BID 01/27/18 10/06/18 [Cosopt] Sodium Chloride Tab 1 gm PO DAILY 01/27/18 10/06/18 Gabapentin [Neurontin] 300 mg PO TID 04/26/18 10/06/18 prednisoLONE ACETATE 1% OPHTH 1 drops RIGHT EYE BID 04/26/18 10/06/18 [Pred Forte 1%] Aspirin 81 mg PO DAILY 05/27/18 10/06/18 Latanoprost [Xalatan 0.005%] 1 drop LEFT EYE HS 09/20/18 10/06/18 Losartan Potassium 100 mg PO DAILY 09/20/18 10/06/18 Metoprolol Tartrate [Lopressor] 25 mg PO BID 09/20/18 10/06/18 Ondansetron [Zofran ODT] 4 mg PO BID PRN 09/20/18 10/06/18 Sucralfate [Carafate] 1 gm PO ACHS 09/20/18 10/06/18 Butalb/APAP/Caff 50-325-40Mg 1 tab PO Q4HR PRN 10/06/18 10/06/18 [Fioricet 50-325-40] Escitalopram [Lexapro] 10 mg PO DAILY 10/06/18 10/06/18 Allergies Allergy/AdvReac Type Severity Reaction Status Date / Time atorvastatin [From Lipitor] AdvReac MUSCLE Verified 10/06/18 14:11 CRAMPS hydrochlorothiazide AdvReac Nausea & Verified 10/06/18 14:11 Vomiting Review of Systems ROS Statement: Those systems with pertinent positive or pertinent negative responses have been documented in the HPI. ROS Other: All systems not noted in ROS Statement are negative. Past Medical History Past Medical History: Coronary Artery Disease (CAD), Chest Pain / Angina, Eye Disorder, GERD/Reflux, Hyperlipidemia, Hypertension, Myocardial Infarction ([place]), Osteoarthritis (OA) Additional Past Medical History / Comment(s): Neck pain, SVT with ablation, duodenal ulcers, chronic duodenal stricture, bilateral glaucoma, sinusitis, migraines, anemia,esophagitis,hiatal hernia, chronic back pain, past fx ribs/sternum Last Myocardial Infarction Date:: 1999 History of Any Multi-Drug Resistant Organisms: None Reported Past Surgical History: Cardiac Ablation, Cholecystectomy, Heart Catheterization With Stent Additional Past Surgical History / Comment(s): stent right eye 03/2018, PCI with 3 stents, sinus surgery, cataracts bilaterally with lens implants, EGDs/colonoscopies, Past Anesthesia/Blood Transfusion Reactions: No Reported Reaction Additional Past Anesthesia/Blood Transfusion Reaction / Comment(s): Pt has had past multiple transfusions without reaction. Date of Last Stent Placement:: 1999 Past Psychological History: Anxiety Smoking Status: Former smoker Past Alcohol Use History: None Reported Past Drug Use History: None Reported - Past Family History Father Additional Family Medical History / Comment(s): Father at the age of 68yrs from a ruptured aortic aneurysm. Mother Additional Family Medical History / Comment(s): Mother lived into her 80's. Brother(s) Family Medical History: Cancer Additional Family Medical History / Comment(s): The patient had 3 brothers. One from colon cancer with metastatic disease to the brain. One brother at age 79 from a myocardial infarction. He has 1 brother that is alive with history of skin cancer and diabetes. Sister(s) Additional Family Medical History / Comment(s): The patient is a total of 3 sisters. One in her 80s from myocardial infarction. One sister at age 58 from coronary artery disease and also had a valvular disorder. Patient has one sister alive with diabetes and multiple other medical conditions. Patient has 2 sons and 1 daughter with no major medical problems. General Exam - General Exam Comments Initial Comments: GENERAL: Patient is well-developed and well-nourished. Patient is nontoxic and well- hydrated and is in mild distress. ENT: Neck is soft and supple. No significant lymphadenopathy is noted. Oropharynx is clear. Dry mucous membranes. Neck has full range of motion without eliciting any pain. EYES: The sclera were anicteric and conjunctiva were pink and moist. Extraocular movements were intact and pupils were equal round and reactive to light. Eyelids were unremarkable. PULMONARY: Unlabored respirations. Good breath sounds bilaterally. No audible rales rhonchi or wheezing was noted. CARDIOVASCULAR: There is a regular rate and rhythm without any murmurs gallops or rubs. ABDOMEN: Patient has some epigastric abdominal pain with no rebound or guarding SKIN: Skin is clear with no lesions or rashes and otherwise unremarkable. NEUROLOGIC: Patient is alert and oriented x3. Cranial nerves II through XII are grossly intact. Motor and sensory are also intact. Normal speech, volume and content. Symmetrical smile. MUSCULOSKELETAL: Normal extremities with adequate strength and full range of motion. No lower extremity swelling or edema. No calf tenderness. LYMPHATICS: No significant lymphadenopathy is noted PSYCHIATRIC: Normal psychiatric evaluation. Limitations: no limitations Course Vital Signs 10/06/18 10/06/18 10/06/18 12:07 12:30 12:33 Temperature 98.0 F Pulse Rate 69 Respiratory 18 22 22 Rate Blood Pressure 147/83 O2 Sat by Pulse 97 99 Oximetry 10/06/18 13:47 Temperature Pulse Rate 56 L Respiratory 16 Rate Blood Pressure 138/78 O2 Sat by Pulse 100 Oximetry Medical Decision Making - Medical Decision Making EKG shows normal sinus rhythm at 62 bpm TX interval 182 QRS is 82 QT intervals 46 QTC is 412. Patient's EKG shows no ST segment elevation or depression Patient is noted to pain meds nausea medicine patient felt a little bit better but continues to have abdominal pain. I spoke with because she agreed to admit the patient wanted GI to see the patient again. - Lab Data Result diagrams: 10/06/18 12:25 10/06/18 12:25 Lab Results 10/06/18 10/06/18 10/06/18 Range/Units 12:25 12:25 12:25 WBC 6.7 (3.8-10.6) k/uL RBC 4.17 L (4.30-5.90) m/uL Hgb 12.9 L (13.0-17.5) gm/dL Hct 37.9 L (39.0-53.0) % MCV 90.9 (80.0-100.0) fL MCH 31.0 (25.0-35.0) pg MCHC 34.1 (31.0-37.0) g/dL RDW 13.2 (11.5-15.5) % Plt Count 373 (150-450) k/uL Neutrophils % 57 % Lymphocytes % 23 % Monocytes % 9 % Eosinophils % 8 % Basophils % 1 % Neutrophils # 3.9 (1.3-7.7) k/uL Lymphocytes # 1.6 (1.0-4.8) k/uL Monocytes # 0.6 (0-1.0) k/uL Eosinophils # 0.5 (0-0.7) k/uL Basophils # 0.0 (0-0.2) k/uL Sodium 128 L (137-145) mmol/L Potassium 3.9 (3.5-5.1) mmol/L Chloride 95 L (98-107) mmol/L Carbon Dioxide 22 (22-30) mmol/L Anion Gap 11 mmol/L BUN 5 L (9-20) mg/dL Creatinine 0.57 L (0.66-1.25) mg/dL Est GFR (CKD-EPI)AfAm >90 (>60 ml/min/1.73 sqM) Est GFR (CKD-EPI)NonAf >90 (>60 ml/min/1.73 sqM) Glucose 109 H (74-99) mg/dL Plasma Lactic Acid Ney 1.2 (0.7-2.0) mmol/L Calcium 8.8 (8.4-10.2) mg/dL Total Bilirubin 0.4 (0.2-1.3) mg/dL AST 18 (17-59) U/L ALT 18 L (21-72) U/L Alkaline Phosphatase 74 (38-126) U/L Troponin I (0.000-0.034) ng/mL Total Protein 7.0 (6.3-8.2) g/dL Albumin 4.3 (3.5-5.0) g/dL Amylase 43 (30-110) U/L Lipase 85 (23-300) U/L 10/06/18 Range/Units 12:25 WBC (3.8-10.6) k/uL RBC (4.30-5.90) m/uL Hgb (13.0-17.5) gm/dL Hct (39.0-53.0) % MCV (80.0-100.0) fL MCH (25.0-35.0) pg MCHC (31.0-37.0) g/dL RDW (11.5-15.5) % Plt Count (150-450) k/uL Neutrophils % % Lymphocytes % % Monocytes % % Eosinophils % % Basophils % % Neutrophils # (1.3-7.7) k/uL Lymphocytes # (1.0-4.8) k/uL Monocytes # (0-1.0) k/uL Eosinophils # (0-0.7) k/uL Basophils # (0-0.2) k/uL Sodium (137-145) mmol/L Potassium (3.5-5.1) mmol/L Chloride (98-107) mmol/L Carbon Dioxide (22-30) mmol/L Anion Gap mmol/L BUN (9-20) mg/dL Creatinine (0.66-1.25) mg/dL Est GFR (CKD-EPI)AfAm (>60 ml/min/1.73 sqM) Est GFR (CKD-EPI)NonAf (>60 ml/min/1.73 sqM) Glucose (74-99) mg/dL Plasma Lactic Acid Ney (0.7-2.0) mmol/L Calcium (8.4-10.2) mg/dL Total Bilirubin (0.2-1.3) mg/dL AST (17-59) U/L ALT (21-72) U/L Alkaline Phosphatase (38-126) U/L Troponin I <0.012 (0.000-0.034) ng/mL Total Protein (6.3-8.2) g/dL Albumin (3.5-5.0) g/dL Amylase (30-110) U/L Lipase (23-300) U/L Disposition Clinical Impression: Abdominal pain Disposition: ADMITTED IP TO THIS HOSP Referrals: Pop Castaneda MD [Primary Care Provider] - 1-2 days Time of Disposition: 14:40
[2018-10-06 13:10] LABS: Basophils % (A) 1 %; Eosinophils # (A) 0.5 k/uL (0-0.7); Eosinophils % (A) 8 %; HCT 37.9 % (39.0-53.0); HGB 12.9 gm/dL (13.0-17.5); Lymphocytes # (A) 1.6 k/uL (1.0-4.8); Lymphocytes % (A) 23 %; MCHC 34.1 g/dL (31.0-37.0); MCV 90.9 fL (80.0-100.0); Monocytes # (A) 0.6 k/uL (0-1.0); Monocytes % (A) 9 %; Neutrophils # (A) 3.9 k/uL (1.3-7.7); Neutrophils % (A) 57 %; Platelet Count 373 k/uL (150-450); RBC 4.17 m/uL (4.30-5.90); RDW 13.2 % (11.5-15.5); WBC 6.7 k/uL (3.8-10.6)
[2018-10-06 13:20] LABS: ALT 18 U/L (21-72); AST 18 U/L (17-59); African American GFR (CKD) >90 (>60 ml/min/1.73 sqM); Albumin 4.3 g/dL (3.5-5.0); Alkaline Phosphatase 74 U/L (38-126); Amylase 43 U/L (30-110); Anion Gap 11 mmol/L; Blood Urea Nitrogen 5 mg/dL (9-20); Calcium 8.8 mg/dL (8.4-10.2); Carbon Dioxide 22 mmol/L (22-30); Chloride 95 mmol/L (98-107); Glucose 109 mg/dL (74-99); Non-African American GFR(CKD) >90 (>60 ml/min/1.73 sqM); Potassium 3.9 mmol/L (3.5-5.1); Sodium 128 mmol/L (137-145); Total Bilirubin 0.4 mg/dL (0.2-1.3)
--- NOTE | 2018-10-06 13:24 | XR ---
EXAMINATION TYPE: XR KUB DATE OF EXAM: 10/06/2018 COMPARISON: 08/23/2016 INDICATION: Pain, pain TECHNIQUE: Single view abdomen FINDINGS: Nonspecific bowel gas pattern with small bowel loops and colon with air. No suspicious air-fluid leve ls or differential air-fluid levels are present. Psoas margins are normal. No organomegaly is present. IMPRESSION: 1. Nonstenotic abdomen.
[2018-10-06] MEDS ORDERED: SODIUM CHLORIDE 0.9% 1,000 ML IV ONE (14:41)
[2018-10-06] MEDS ORDERED: HYDROmorphone 1 MG/ML 1 ML SYRINGE IVP PRN (14:43)
[2018-10-06 15:32] LABS: Appearance,Urine Clear (Clear); Bilirubin,Urine Negative (Negative); Blood,Urine Negative (Negative); Color,Urine Yellow; Glucose,Urine (UA) Negative (Negative); Ketones,Urine Negative (Negative); Leukocyte Esterase,Urine Negative (Negative); Nitrite,Urine Negative (Negative); Protein,Urine Negative (Negative); Specific Gravity,Urine 1.014 (1.001-1.035); Urobilinogen,Urine <2.0 mg/dL (<2.0)
[2018-10-06] MEDS ORDERED: ONDANSETRON ODT 4 MG TAB PO PRN (15:55)
[2018-10-06] MEDS ORDERED: IOPAMIDOL CONTRAST (ORAL USE) VIAL PO PRN (15:58)
--- NOTE | 2018-10-06 17:05 | P.HPIM ---
History of Present Illness H&P Date: 10/06/18 This is a 67-year-old male patient of [facility] and Dr. Subramanian with past medical history of coronary artery disease status post stenting, SVT status post ablation, steroid injections of the cervical spine along with radiofrequency ablation, history of gastric ulcers, chronic duodenal stricture EGD in 2017 suggested stable duodenal stricture, last EGD with biopsy findings mild gastritis involving the proximal body of the stomach status post biopsy, nonobstructive duodenal stricture along the duodenal sweep, patchy areas of erythema with couple of linear erosions in the distal esophagus consistent with L8 grade B reflux esophagitis. Biopsy report showed gastric body biopsy with chronic gastritis, H. pylori negative. Esophagus biopsy showed acute and chronic esophagitis consistent with reflux esophagitis. This was negative for fungal organisms. Patient has a history of seizure activity in 2018 admission secondary to hyponatremia at 112. Patient last admitted on 09/21 due to hypo natremia and metabolic encephalopathy. Hydrochlorothiazide was considered to be the contributing factor and was discontinued. Patient presents to [facility] emergency center due to sudden onset of nausea and vomiting that started yesterday. Patient also documents to episodes of diarrhea that happened yesterday associated with acute abdominal pain. Abdominal pain is a 8 out of 10 severe in nature generalized in character. Patient saw Dr. Hickman 2 weeks ago who wa shappy with recovery that patient made. She has been avoiding spicy food avoiding coffee or caffeine to prevent headaches and worsening of gastritis. He was initiated on Lexapro for worsening anxiety. Vitals obtain suggested temperature 97.6 pulse of 56 EKG is normal sinus blood pressure 150/88 saturating well on room air. Sodium had improved on discharge currently is 128 chloride 95 creatinine 0.59 glucose 109. Lipase is normal Patient to be started on clear liquid diet with IV fluids running at 100 mL/h. Since patient is having significant abdominal pain will order a computed tomography scan of the abdomen. Review of Systems Constitutional: Denies chills, Denies fever, endorses lethargy, endorses poor appetite, endorses weakness, Denies weight loss Eyes: denies decreased vision, denies diplopia, denies discharge, denies pain Ears: deny: decreased hearing Ears, nose, mouth and throat: Denies dental pain, Denies headache, Denies nasal discharge, Denies nose pain Cardiovascular: Denies chest pain, Denies decreased exercise tolerance, Denies edema, Denies high blood pressure, Denies irregular heart beat, Denies palpitations, Denies paroxysmal nocturnal dyspnea, Denies rapid heart beat, Denies shortness of breath Respiratory: Denies congestion, Denies cough, Denies cough with sputum, Denies dyspnea, Denies home oxygen, Denies wheezing Gastrointestinal: endorses abdominal pain, endorses change in bowel habits, Denies coffee ground emesis, Denies early satiety, Denies excessive gas, Denies heartburn, Denies hematemesis, Denies hematochezia, Denies loss of appetite, endorses nausea, endorses vomiting Genitourinary: Denies dysuria, Denies flank pain, Denies kidney stones, Denies menorrhagia, Denies urgency, Denies urinary frequency Musculoskeletal: Denies gait dysfunction, Denies limitation of motion, Denies morning stiffness, Denies muscle cramps Integumentary: Denies rash, Denies wounds, Denies brittle nails, Denies change in hair/nails, Denies darkening of skin Neurological: Denies balance difficulties, Denies change in speech, Denies double vision, Denies gait dysfunction, Denies loss of vision, Denies motor disturbance, Denies numbness, Denies paralysis, Denies paresthesias, Denies seizures Psychiatric: Endorses anxiety, Denies depression Endocrine: Denies excessive sweating, Denies excessive thirst, Denies high blood sugars, Denies palpitations Hematologic/Lymphatic: Denies easy bruising, Denies lymphadenopathy Past Medical History Past Medical History: Coronary Artery Disease (CAD), Chest Pain / Angina, Eye Disorder, GERD/Reflux, Hyperlipidemia, Hypertension, Myocardial Infarction ([place]), Osteoarthritis (OA) Additional Past Medical History / Comment(s): Neck pain, SVT with ablation, duodenal ulcers, chronic duodenal stricture, bilateral glaucoma, sinusitis, migr aines, anemia,esophagitis,hiatal hernia, chronic back pain, past fx ribs/sternum Last Myocardial Infarction Date:: 1999 History of Any Multi-Drug Resistant Organisms: None Reported Past Surgical History: Cardiac Ablation, Cholecystectomy, Heart Catheterization With Stent Additional Past Surgical History / Comment(s): stent right eye 03/2018, PCI with 3 stents, sinus surgery, cataracts bilaterally with lens implants, EGDs/colonoscopies, Past Anesthesia/Blood Transfusion Reactions: No Reported Reaction Additional Past Anesthesia/Blood Transfusion Reaction / Comment(s): Pt has had past multiple transfusions without reaction. Date of Last Stent Placement:: 1999 Past Psychological History: Anxiety Smoking Status: Former smoker Past Alcohol Use History: None Reported Past Drug Use History: None Reported - Past Family History Father Additional Family Medical History / Comment(s): Father at the age of 68yrs from a ruptured aortic aneurysm. Mother Additional Family Medical History / Comment(s): Mother lived into her 80's. Brother(s) Family Medical History: Cancer Additional Family Medical History / Comment(s): The patient had 3 brothers. One from colon cancer with metastatic disease to the brain. One brother at age 79 from a myocardial infarction. He has 1 brother that is alive with history of skin cancer and diabetes. Sister(s) Additional Family Medical History / Comment(s): The patient is a total of 3 sisters. One in her 80s from myocardial infarction. One sister at age 58 from coronary artery disease and also had a valvular disorder. Patient has one sister alive with diabetes and multiple other medical conditions. Patient has 2 sons and 1 daughter with no major medical problems. Medications and Allergies Home Medications Medication Instructions Recorded Confirmed Type Simvastatin [Zocor] 40 mg PO HS 07/12/13 10/06/18 History Brimonidine Tartrate [Alphagan P 1 drop LEFT EYE BID 02/20/16 10/06/18 History 0.2% Ophth Soln] Pantoprazole Sodium 40 mg PO BID 06/26/16 10/06/18 History Dicyclomine [Bentyl] 10 mg PO TID 06/04/17 10/06/18 History Dorzolamide-Timol 2.23%/0.68% 1 drop LEFT EYE BID 01/27/18 10/06/18 History [Cosopt] Sodium Chloride Tab 1 gm PO DAILY 01/27/18 10/06/18 History Gabapentin [Neurontin] 300 mg PO TID 04/26/18 10/06/18 History prednisoLONE ACETATE 1% OPHTH 1 drops RIGHT EYE BID 04/26/18 10/06/18 History [Pred Forte 1%] Aspirin 81 mg PO DAILY 05/27/18 10/06/18 History Latanoprost [Xalatan 0.005%] 1 drop LEFT EYE HS 09/20/18 10/06/18 History Losartan Potassium 100 mg PO DAILY 09/20/18 10/06/18 History Metoprolol Tartrate [Lopressor] 25 mg PO BID 09/20/18 10/06/18 History Ondansetron [Zofran ODT] 4 mg PO BID PRN 09/20/18 10/06/18 History Sucralfate [Carafate] 1 gm PO ACHS 09/20/18 10/06/18 History Butalb/APAP/Caff 50-325-40Mg 1 tab PO Q4HR PRN 10/06/18 10/06/18 History [Fioricet 50-325-40] Escitalopram [Lexapro] 10 mg PO DAILY 10/06/18 10/06/18 History Allergies Allergy/AdvReac Type Severity Reaction Status Date / Time atorvastatin [From Lipitor] AdvReac MUSCLE Verified 10/06/18 14:11 CRAMPS hydrochlorothiazide AdvReac Nausea & Verified 10/06/18 14:11 Vomiting Physical Exam Vitals: Vital Signs Temp Pulse Resp BP Pulse Ox 10/06/18 16:26 97.6 F 56 L 16 150/88 98 10/06/18 13:47 56 L 16 138/78 100 10/06/18 12:33 22 99 10/06/18 12:30 22 10/06/18 12:07 98.0 F 69 18 147/83 97 Intake and Output 10/06/18 10/06/18 10/06/18 06:59 14:59 22:59 Intake Total 1000 Balance 1000 Intake: Amount of Fluid Infused ( 1000 ml) Other: Weight 83.915 kg - Constitutional General appearance: cooperative, no acute distress, obese - EENT Eyes: anicteric sclerae, PERRLA, normal appearance ENT: hearing grossly normal - Neck Neck: no lymphadenopathy, normal ROM, no other, no rigidity, no stridor, no thyromegaly - Respiratory Respiratory: bilateral: CTA, negative: diminished, dullness, rales, rhonchi - Cardiovascular Rhythm: regular Heart sounds: normal: S1, S2 Abnormal Heart Sounds: no systolic murmur, no diastolic murmur, no rub, no S3 Gallop, no S4 Gallop, no click, no other - Gastrointestinal General gastrointestinal: normal bowel sounds, soft tender diffusely - Integumentary Integumentary: no rash - Neurologic Neurologic: CNII-XII intact - Musculoskeletal Musculoskeletal: gait normal, strength equal bilaterally - Psychiatric Psychiatric: A&O x's 3, appropriate affect Results CBC & Chem 7: 10/06/18 12:25 10/06/18 12:25 Labs: Abnormal Lab Results - Last 24 Hours (Table) 10/06/18 10/06/18 Range/Units 12:25 12:25 RBC 4.17 L (4.30-5.90) m/uL Hgb 12.9 L (13.0-17.5) gm/dL Hct 37.9 L (39.0-53.0) % Sodium 128 L (137-145) mmol/L Chloride 95 L (98-107) mmol/L BUN 5 L (9-20) mg/dL Creatinine 0.57 L (0.66-1.25) mg/dL Glucose 109 H (74-99) mg/dL ALT 18 L (21-72) U/L Thrombosis Risk Factor Assmnt - DVT/VTE Prophylaxis DVT/VTE Prophylaxis: Pharmacologic Prophylaxis ordered Assessment and Plan Plan: 1. Intractable nausea and vomitingwith abd pain likely secondary to severe gastritis with possible duodenal stricture worsening. Continue IV fluids of 0.9 normal saline at100 mL per hour. Patient is currently on a clear liquid diet. Zofran as needed for nausea. Continue Protonix [address] abd ordered 2. Hypovolemic Hyponatremia most likely secondary to a combination of dehydratio n with possible adrenal insufficiency. cortisol was 1 and patient had a poor response to cosyntropin stimulation test Patient was asked to hold off hydrocortisone tills een by endocrinology as it can messup the resutls . Hydrochlorothiazide discontinued last visit. 3. Metabolic encephalopathy resolved 4. Chronic migraine headaches, occipital neuritis. Continue Fioricet as needed 5. Acute abdominal pain with diarrhea CT abdomen ordered. And lipase is normal WBC normal diarrhea has improved since yesterday. Stool studies sent 6. Hypertension. Continue losartan 100 mg daily, Lopressor 25 mg twice daily. 7. Hyperlipidemia. 8. History of hyponatremia with SIADH. On sodium tablet 1 g twice a day 9. DVT prophylaxis. 10. GI prophylaxis. 11. Hyperlipidemia. Continue simvastatin 40 mg at bedtime. Patient will be admitted to the hospital for a minimum of 2 night stay. Discharge plan: Most likely return home.
[2018-10-06] MEDS ORDERED: ONDANSETRON 4 MG/2 ML VIAL IVP PRN (17:06)
[2018-10-06] MEDS: ONDANSETRON 4 MG/2 ML VIAL IVP PRN (17:16)
[2018-10-06] MEDS: HYDROmorphone 0.5 MG/0.5 ML SYRINGE IVP PRN (17:17)
[2018-10-06 17:20] LABS: Uric Acid 3.1 mg/dL (3.5-8.5)
[2018-10-06] MEDS: DICYCLOMINE 10 MG CAP PO SCH ×2 (17:25→21:41)
[2018-10-06] MEDS: GABAPENTIN 300 MG CAP PO SCH ×2 (17:26→21:41)
[2018-10-06] MEDS: PANTOPRAZOLE 40 MG TABLET PO SCH (17:26)
[2018-10-06] MEDS: SUCRALFATE 1 GM TAB PO SCH ×2 (17:26→21:35)
[2018-10-06] MEDS: DORZOLAMIDE-TIMOLOL 2.23%/0.68 10ML BTL LEFT EYE SCH (21:30)
[2018-10-06] MEDS: BRIMONIDINE TARTRATE 0.2% DROPS 5 ML BTL LEFT EYE SCH (21:30)
[2018-10-06] MEDS: LATANOPROST 0.005% OPHTH DROPS 2.5 ML BTL LEFT EYE SCH (21:32)
[2018-10-06] MEDS: SODIUM CHLORIDE TAB 1 GM TAB PO SCH (21:33)
[2018-10-06] MEDS: METOPROLOL TARTRATE 25 MG TAB PO SCH (21:34)
[2018-10-06] MEDS: SIMVASTATIN PO SCH (21:34)
[2018-10-06] MEDS: DIAZEPAM 2 MG TAB PO SCH (21:41)
--- NOTE | 2018-10-06 21:48 | CT ---
EXAMINATION TYPE: CT abdomen pelvis w con DATE OF EXAM: 10/06/2018 COMPARISON: 01/19/2018 HISTORY: abdomen pain r/o colitis CT DLP: 883.30 mGycm Automated exposure control for dose reduction was used. TECHNIQUE: Helical acquisition of images was performed from the lung bases through the pelvis. CONTRAST: Performed with Oral Contrast and with IV Contrast, patient injected with 100 mL of Isovue 300. FINDINGS: LUNG BASES: No acute findings. Coronary calcifications noted. LIVER/GB: No significant abnormality is appreciated. PANCREAS: No significant abnormality is seen. SPLEEN: No significant abnormality is seen. ADRENALS: No significant abnormality is seen. KIDNEYS: No significant abnormality is seen. FREE AIR: No free air is visualized. RETROPERITONEAL ADENOPATHY: None visualized REPRODUCTIVE ORGANS: No significant abnormality is seen URINARY BLADDER: No significant abnormality is seen. PELVIC ADENOPATHY: None visualized. OSSEOUS STRUCTURES: No significant abnormality is seen. BOWEL: No significant abnormality is seen. OTHER: No acute vascular findings. IMPRESSION: NO ACUTE PROCESS.
[2018-10-06] MEDS: prednisoLONE ACETATE 1% OPHTH DROPS 5 ML BTL RIGHT EYE SCH (22:53)
[2018-10-07 04:16] LABS: Basophils % (A) 1 %; Eosinophils # (A) 0.3 k/uL (0-0.7); Eosinophils % (A) 5 %; HCT 35.3 % (39.0-53.0); HGB 11.7 gm/dL (13.0-17.5); Lymphocytes # (A) 1.4 k/uL (1.0-4.8); Lymphocytes % (A) 21 %; MCH 30.9 pg (25.0-35.0); MCHC 33.3 g/dL (31.0-37.0); MCV 92.9 fL (80.0-100.0); Mean Platelet Volume 6.5; Monocytes # (A) 0.7 k/uL (0-1.0); Monocytes % (A) 11 %; Neutrophils # (A) 3.9 k/uL (1.3-7.7); Neutrophils % (A) 60 %; Platelet Count 327 k/uL (150-450); RDW 13.5 % (11.5-15.5); WBC 6.5 k/uL (3.8-10.6)
[2018-10-07 04:30] LABS: Carbon Dioxide 23 mmol/L (22-30); Chloride 105 mmol/L (98-107); Glucose 106 mg/dL (74-99); Potassium 4.3 mmol/L (3.5-5.1); Sodium 136 mmol/L (137-145)
[2018-10-07 04:31] LABS: ALT 18 U/L (21-72); AST 13 U/L (17-59); African American GFR (CKD) >90 (>60 ml/min/1.73 sqM); Albumin 3.6 g/dL (3.5-5.0); Alkaline Phosphatase 66 U/L (38-126); Anion Gap 8 mmol/L; Blood Urea Nitrogen 6 mg/dL (9-20); Calcium 8.7 mg/dL (8.4-10.2); Non-African American GFR(CKD) >90 (>60 ml/min/1.73 sqM); Total Bilirubin 0.3 mg/dL (0.2-1.3); Total Protein 6.1 g/dL (6.3-8.2)
[2018-10-07] MEDS: ONDANSETRON 4 MG/2 ML VIAL IVP PRN ×5 (05:20→20:38)
[2018-10-07] MEDS: HYDROmorphone 0.5 MG/0.5 ML SYRINGE IVP PRN ×5 (05:21→20:36)
[2018-10-07] MEDS: ASPIRIN 81 MG PO SCH (07:10)
[2018-10-07] MEDS: PANTOPRAZOLE 40 MG TABLET PO SCH ×2 (07:10→17:20)
[2018-10-07] MEDS: DICYCLOMINE 10 MG CAP PO SCH (07:10)
[2018-10-07] MEDS: SUCRALFATE 1 GM TAB PO SCH ×4 (07:10→20:39)
[2018-10-07] MEDS: SODIUM CHLORIDE TAB 1 GM TAB PO SCH ×2 (07:11→20:38)
[2018-10-07] MEDS: LOSARTAN 50 MG TAB PO SCH (07:13)
[2018-10-07] MEDS: METOPROLOL TARTRATE 25 MG TAB PO SCH ×2 (07:13→20:39)
[2018-10-07] MEDS: ESCITALOPRAM 10 MG TAB PO SCH (07:13)
[2018-10-07] MEDS: prednisoLONE ACETATE 1% OPHTH DROPS 5 ML BTL RIGHT EYE SCH ×2 (07:14→20:35)
[2018-10-07] MEDS: GABAPENTIN 300 MG CAP PO SCH ×3 (07:14→20:39)
[2018-10-07] MEDS: BRIMONIDINE TARTRATE 0.2% DROPS 5 ML BTL LEFT EYE SCH ×2 (07:14→20:35)
[2018-10-07] MEDS: DORZOLAMIDE-TIMOLOL 2.23%/0.68 10ML BTL LEFT EYE SCH ×2 (07:15→20:35)
--- NOTE | 2018-10-07 11:27 | P.CONS ---
History of Present Illness - Reason for Consult Consult date: 10/07/18 Abdominal pain nausea vomiting Requesting physician: Pop Castaneda - Chief Complaint Abdominal pain nausea vomiting - History of Present Illness 67-year-old gentleman well known to the GI service/Dr. Subramanian recently seen in GI office 7-10 days with a past medical history of CAD, hyponatremia/SIADH, migraines, hypertension, [place], cholecystectomy, benign duodenal stricture, GERD long standing PPI therapy, chronic back pain, gastric ulcers, chronic nausea vomiting epigastric abdominal pain. Patient presented with acute onset of epigastric abdominal pain with nausea vomiting without fever chills hematemesis hematochezia or melena yesterday. He has a history of benign duodenal stricture last EGD was December 2017 redemonstration of benign stricture no impedance of scope. Small bowel follow- through in December 2017 reported no evidence of small bowel obstruction. Started Lexapro last week. White count 6.7. Hemoglobin 12.9. Platelet 373. Sodium 128. Potassium 3.9. BUN 5. Creatinine 0.5. Lipase 85. Sodium improve 136. Troponin less than 0.[address] abdomen and pelvis no acute process. Review of Systems Constitutional: Denies fever, chills, sweats, weight gain, or loss. HEENT: Negative for migraines, blurred vision or loss, earaches, drainage, tinnitus, oral mucosal lesions, dysphagia, or odynophagia. Cardiac: Negative for chest pain, arrhythmias, or palpitation. Respiratory: Negative for shortness of breath, hemoptysis, cough, or sputum production. Gastrointestinal: See HPI for pertinent findings. Genitourinary: Negative for hematuria, urgency, frequency, polyuria, dysuria, or penile discharge. Musculoskeletal: Negative for muscle aches, swelling, arthritis, and arthralgias. Neurologic: Negative for stroke or TIA. Endocrine: Negative for thyroid problems. Skin: Negative for rash or itching. Psychiatric: Negative history for depression and anxiety Past Medical History Past Medical History: Coronary Artery Disease (CAD), Chest Pain / Angina, Eye Di sorder, GERD/Reflux, Hyperlipidemia, Hypertension, Myocardial Infarction ([place]), Osteoarthritis ([place]) Additional Past Medical History / Comment(s): NVD recently, Neck pain, SVT with ablation, duodenal ulcers, chronic duodenal stricture, bilateral glaucoma, sinusitis, migraines, anemia, esophagitis,hiatal hernia, chronic back pain, past fx ribs/sternum Last Myocardial Infarction Date:: 1999 History of Any Multi-Drug Resistant Organisms: None Reported Past Surgical History: Cardiac Ablation, Cholecystectomy, Heart Catheterization With Stent Additional Past Surgical History / Comment(s): stent right eye 03/2018, PCI with 3 stents, sinus surgery, cataracts bilaterally with lens implants, EGDs/colonoscopies, Past Anesthesia/Blood Transfusion Reactions: No Reported Reaction Additional Past Anesthesia/Blood Transfusion Reaction / Comm: Pt has had past multiple transfusions without reaction. Date of Last Stent Placement:: 1999 Past Psychological History: Anxiety Additional Psychological History / Comment(s): . Smoking Status: Former smoker Past Alcohol Use History: None Reported Additional Past Alcohol Use History / Comment(s): Patient was a smoker for only a few years in his 40s. No illicit drug use, no alcohol use. He lives at home with his . Past Drug Use History: None Reported - Past Family History Father Additional Family Medical History / Comment(s): Father at the age of 68yrs from a ruptured aortic aneurysm. Mother Additional Family Medical History / Comment(s): Mother lived into her 80's. Brother(s) Family Medical History: Cancer Additional Family Medical History / Comment(s): The patient had 3 brothers. One from colon cancer with metastatic disease to the brain. One brother at age 79 from a myocardial infarction. He has 1 brother that is alive with history of skin cancer and diabetes. Sister(s) Additional Family Medical History / Comment(s): The patient is a total of 3 sisters. One in her 80s from myocardial infarction. One sister at age 58 from coronary artery disease and also had a valvular disorder. Patient has one sister alive with diabetes and multiple other medical conditions. Patient has 2 sons and 1 daughter with no major medical problems. Medications and Allergies Home Medications Medication Instructions Recorded Confirmed Type Simvastatin [Zocor] 40 mg PO HS 07/12/13 10/06/18 History Brimonidine Tartrate [Alphagan P 1 drop LEFT EYE BID 02/20/16 10/06/18 History 0.2% Ophth Soln] Pantoprazole Sodium 40 mg PO BID 06/26/16 10/06/18 History Dicyclomine [Bentyl] 10 mg PO TID 06/04/17 10/06/18 History Dorzolamide-Timol 2.23%/0.68% 1 drop LEFT EYE BID 01/27/18 10/06/18 History [Cosopt] Sodium Chloride Tab 1 gm PO DAILY 01/27/18 10/06/18 History Gabapentin [Neurontin] 300 mg PO TID 04/26/18 10/06/18 History prednisoLONE ACETATE 1% OPHTH 1 drops RIGHT EYE BID 04/26/18 10/06/18 History [Pred Forte 1%] Aspirin 81 mg PO DAILY 05/27/18 10/06/18 History Latanoprost [Xalatan 0.005%] 1 drop LEFT EYE HS 09/20/18 10/06/18 History Losartan Potassium 100 mg PO DAILY 09/20/18 10/06/18 History Metoprolol Tartrate [Lopressor] 25 mg PO BID 09/20/18 10/06/18 History Ondansetron [Zofran ODT] 4 mg PO BID PRN 09/20/18 10/06/18 History Sucralfate [Carafate] 1 gm PO ACHS 09/20/18 10/06/18 History Butalb/APAP/Caff 50-325-40Mg 1 tab PO Q4HR PRN 10/06/18 10/06/18 History [Fioricet 50-325-40] Escitalopram [Lexapro] 10 mg PO DAILY 10/06/18 10/06/18 History Allergies Allergy/AdvReac Type Severity Reaction Status Date / Time atorvastatin [From Lipitor] AdvReac MUSCLE Verified 10/06/18 14:11 CRAMPS hydrochlorothiazide AdvReac Nausea & Verified 10/06/18 14:11 Vomiting Physical Exam Vitals: Vital Signs Temp Pulse Pulse Resp BP BP BP 10/07/18 04:40 98.0 F 67 16 158/82 10/06/18 21:00 98.4 F 71 14 161/85 10/06/18 16:55 97.6 F 59 L 18 180/82 10/06/18 16:26 97.6 F 56 L 16 150/88 10/06/18 13:47 56 L 16 138/78 10/06/18 12:33 22 10/06/18 12:30 22 10/06/18 12:07 98.0 F 69 18 147/83 Pulse Ox 08/08/19 04:40 99 10/06/18 21:00 98 10/06/18 16:55 97 10/06/18 16:26 98 10/06/18 13:47 100 10/06/18 12:33 99 10/06/18 12:30 10/06/18 12:07 97 Intake and Output 10/06/18 10/07/18 10/07/18 22:59 06:59 14:59 Intake Total 1000 Output Total 500 Balance 1000 -500 Intake: Amount of Fluid Infused ( 1000 ml) Output: Urine 500 Other: Voiding Method Urinal Urinal Urinal # Voids 1 Results CBC & Chem 7: 10/08/18 08:29 10/08/18 08:29 Labs: Abnormal Lab Results - Last 24 Hours (Table) 10/06/18 10/06/18 10/06/18 Range/Units 12:25 12:25 13:00 RBC 4.17 L (4.30-5.90) m/uL Hgb 12.9 L (13.0-17.5) gm/dL Hct 37.9 L (39.0-53.0) % Sodium 128 L (137-145) mmol/L Chloride 95 L (98-107) mmol/L BUN 5 L (9-20) mg/dL Creatinine 0.57 L (0.66-1.25) mg/dL Glucose 109 H (74-99) mg/dL Osmolality 261 L (280-301) mosm/kg Uric Acid 3.1 L (3.5-8.5) mg/dL AST (17-59) U/L ALT 18 L (21-72) U/L Total Protein (6.3-8.2) g/dL 10/07/18 10/07/18 Range/Units 04:02 04:02 RBC 3.80 L (4.30-5.90) m/uL Hgb 11.7 L (13.0-17.5) gm/dL Hct 35.3 L (39.0-53.0) % Sodium 136 L (137-145) mmol/L Chloride (98-107) mmol/L BUN 6 L (9-20) mg/dL Creatinine 0.63 L (0.66-1.25) mg/dL Glucose 106 H (74-99) mg/dL Osmolality (280-301) mosm/kg Uric Acid (3.5-8.5) mg/dL AST 13 L (17-59) U/L ALT 18 L (21-72) U/L Total Protein 6.1 L (6.3-8.2) g/dL CT scan - abdomen: report reviewed (Dr. Subramanian) Assessment and Plan (1) Abdominal pain Narrative/Plan: Acute on chronic abdominal epigastric abdominal pain with non bloody nausea vomiting x 1 day. History of benign duodenal stricture most recent EGD December 2017. Etiology is unclear possible exacerbation of GERD possible anxiety irritable bowel component, sensitivity to hyponatremia to be kept in mind as well. Current Visit: Yes Status: Acute Code(s): R10.9 - UNSPECIFIED ABDOMINAL PAIN SNOMED Code(s): 96456914 (2) Nausea & vomiting Current Visit: Yes Status: Acute Code(s): R11.2 - NAUSEA WITH VOMITING, UNSPECIFIED SNOMED Code(s): 59398650 (3) Duodenal stricture Current Visit: Yes Status: Acute Code(s): K31.5 - OBSTRUCTION OF DUODENUM SNOMED Code(s): 82628082 (4) Hyponatremia Narrative/Plan: with SIADH Current Visit: Yes Status: Acute Code(s): E87.1 - HYPO-OSMOLALITY AND HYPONATREMIA SNOMED Code(s): 52221401 Plan: 1. Dr. Subramanian recommends UGI/SBFT. GI prophylaxis patient has been on long- standing PPI therapy for years will discuss if continuance is necessary possibly changing to an H2 antagonist. Continue Bentyl will increase to 20 mg 3 times a day. BMP monitoring. IV hydration. Antiemetics as needed. We'll follow with you. Inpatient endoscopic exams not planned at this time. Thank you for this kind referral and the opportunity to participate in the care of your patient. This consultation was discussed with Dr. Subramanian. The impression and plan of care have been directed as dictated.
[2018-10-07] MEDS: DICYCLOMINE 20 MG TAB PO SCH ×2 (15:24→20:38)
--- NOTE | 2018-10-07 15:30 | FL ---
EXAMINATION TYPE: FL UGI w small bowel DATE OF EXAM: 10/07/2018 COMPARISON: CT 10/06/2018 HISTORY: Pain TECHNIQUE: A single contrast UGI study is performed with small bowel follow through. 1.3 minutes of fluoroscopy and 22 images submitted. FINDINGS: [employer] image of the abdomen shows no gross abnormality. The esophagus shows normal motility and emptying into the stomach. No evidence of hiatal hernia or s tricture noted. The stomach shows no filling defect. No significant esophageal reflux was seen during real time perf ormance of this study. The duodenal bulb and sweep are unremarkable. Transit time was 95 minutes. Contrast was also seen in the colon.. There is normal mucosal fold gordon aleyda throughout the small bowel. There is no evidence of any stricture or filling defect noted. The terminal ileum is unremarkable. IMPRESSION: 1. No diagnostic evidence of obstruction.
--- NOTE | 2018-10-07 15:38 | P.PN ---
Subjective Progress Note Date: 10/07/18 This is a 67-year-old male patient of khadijah and Dr. Subramanian with past medical history of coronary artery disease status post stenting, SVT status post ablation, steroid injections of the cervical spine along with radiofrequency ablation, history of gastric ulcers, chronic duodenal stricture EGD in 2017 suggested stable duodenal stricture, last EGD with biopsy findings mild gastritis involving the proximal body of the stomach status post biopsy, nonobstructive duodenal stricture along the duodenal sweep, patchy areas of erythema with couple of linear erosions in the distal esophagus consistent with L8 grade B reflux esophagitis. Biopsy report showed gastric body biopsy with chronic gastritis, H. pylori negative. Esophagus biopsy showed acute and chronic esophagitis consistent with reflux esophagitis. This was negative for fungal organisms. Patient has a history of seizure activity in 2018 admission secondary to hyponatremia at 112. Patient last admitted on 09/21 due to hyponatremia and metabolic encephalopathy. Hydrochlorothiazide was considered to be the contributing factor and was discontinued. Patient presents to [facility] emergency center due to sudden onset of nausea and vomiting that started yesterday. Patient also documents to episodes of diarrhea that happened yesterday associated with acute abdominal pain. Abdominal pain is a 8 out of 10 severe in nature generalized in character. Patient saw Dr. Hickman 2 weeks ago who wa shappy with recovery that patient made. She has been avoiding spicy food avoiding coffee or caffeine to prevent headaches and worsening of gastritis. He was initiated on Lexapro for worsening anxiety. Vitals obtain suggested temperature 97.6 pulse of 56 EKG is normal sinus blood pressure 150/88 saturating well on room air. Sodium had improved on discharge currently is 128 chloride 95 creatinine 0.59 glucose 109. Lipase is normal Patient to be started on clear liquid diet with IV fluids running at 100 mL/h. Since patient is having significant abdominal pain will order a computed tomography scan of the abdomen. 10/07 patient examined at bedside. Appears weak and dehydrated. Sodium is improved to 135. Continue sodium tablets 1 g twice a day continue IV fluids at100 mL/h. Nausea and vomiting has improved patient continues to have epigastric tenderness along with right upper quadrant pain. Patient had cholecystectomy by Dr. Marcus and LFTs normal, unclear etiology of the right upper quadrant pain. CT abdomen negative for any biliary dilation or concern for a biliary stone. Small bowel follow through is pending ROS Constitutional: Denies chills, Denies fever, Denies lethargy, Denies malaise, Denies poor appetite, Denies weakness, Denies weight loss Eyes: denies decreased vision, denies diplopia, denies discharge, denies pain Ears: deny: decreased hearing Ears, nose, mouth and throat: Denies dental pain, Denies headache, Denies nasal discharge, Denies nose pain Cardiovascular: Denies chest pain, Denies decreased exercise tolerance, Denies edema, Denies high blood pressure, Denies irregular heart beat, Denies palpitations, Denies paroxysmal nocturnal dyspnea, Denies rapid heart beat, Denies shortness of breath Respiratory: Denies congestion, Denies cough, Denies cough with sputum, Denies dyspnea, Denies home oxygen, Denies wheezing Gastrointestinal: positive abdominal pain, Denies change in bowel habits, Denies coffee ground emesis, Denies early satiety, Denies excessive gas, Denies heartburn, Denies hematemesis, Denies hematochezia, Denies loss of appetite, Denies nausea, Denies vomiting Genitourinary: Denies dysuria, Denies flank pain, Denies kidney stones, Denies menorrhagia, Denies urgency, Denies urinary frequency Musculoskeletal: Denies gait dysfunction, Denies limitation of motion, Denies morning stiffness, Denies muscle cramps Integumentary: Denies rash, Denies wounds, Denies brittle nails, Denies change in hair/nails, Denies darkening of skin Neurological: Denies balance difficulties, Denies change in speech, Denies double vision, Denies gait dysfunction, Denies loss of vision, Denies motor disturbance, Denies numbness, Denies paralysis, Denies paresthesias, Denies seizures Psychiatric: Denies anxiety, Denies depression Endocrine: Denies excessive sweating, Denies excessive thirst, Denies high blood sugars, Denies palpitations Hematologic/Lymphatic: Denies easy bruising, Denies lymphadenopathy Objective - Vital Signs Vital signs: Vital Signs Temp 98.2 F 10/07/18 13:23 Pulse 60 10/07/18 13:23 Resp 16 10/07/18 13:23 BP 167/76 10/07/18 13:23 Pulse Ox 100 10/07/18 13:23 Intake & Output 10/06/18 10/07/18 10/07/18 18:59 06:59 18:59 Intake Total 1000 Output Total 500 500 Balance 1000 -500 -500 Weight 83.915 kg Intake: Amount of Fluid Infused ( 1000 ml) Output: Urine 500 500 Other: Voiding Method Urinal Urinal Urinal # Voids 1 - Exam - Constitutional General appearance: cooperative, no acute distress, obese - EENT Eyes: anicteric sclerae, PERRLA, normal appearance ENT: hearing grossly normal - Neck Neck: no lymphadenopathy, normal ROM, no other, no rigidity, no stridor, no thyromegaly - Respiratory Respiratory: bilateral: CTA, negative: diminished, dullness, rales, rhonchi - Cardiovascular Rhythm: regular Heart sounds: normal: S1, S2 Abnormal Heart Sounds: no systolic murmur, no diastolic murmur, no rub, no S3 Gallop, no S4 Gallop, no click, no other - Gastrointestinal General gastrointestinal: normal bowel sounds, soft right upper quadrant and epigastric tenderness bowel sounds are present - Integumentary Integumentary: no rash - Neurologic Neurologic: CNII-XII intact - Musculoskeletal Musculoskeletal: gait normal, strength equal bilaterally - Psychiatric Psychiatric: A&O x's 3, appropriate affect - Labs CBC & Chem 7: 10/07/18 04:02 10/07/18 04:02 Labs: Abnormal Lab Results - Last 24 Hours (Table) 10/06/18 10/07/18 10/07/18 Range/Units 13:00 04:02 04:02 RBC 3.80 L (4.30-5.90) m/uL Hgb 11.7 L (13.0-17.5) gm/dL Hct 35.3 L (39.0-53.0) % Sodium 136 L (137-145) mmol/L BUN 6 L (9-20) mg/dL Creatinine 0.63 L (0.66-1.25) mg/dL Glucose 106 H (74-99) mg/dL Osmolality 261 L (280-301) mosm/kg Uric Acid 3.1 L (3.5-8.5) mg/dL AST 13 L (17-59) U/L ALT 18 L (21-72) U/L Total Protein 6.1 L (6.3-8.2) g/dL Assessment and Plan Plan: 1. Intractable nausea and vomitingwith abd pain likely secondary to severe gastritis with possible duodenal stricture worsening. Continue IV fluids of 0.9 normal saline at100 mL per hour. Patient is currently on a clear liquid diet. Zofran as needed for nausea. Continue Protonix [address] abd negative for any acute process. Small bowel follow 3 ordered by gastroenterology 2. Hypovolemic Hyponatremia most likely secondary to a combination of dehydra tion with possible adrenal insufficiency. cortisol was 1 and patient had a poor response to cosyntropin stimulation test Patient was asked to hold off hydrocortisone tills een by endocrinology as it can messup the resutls . Hydrochlorothiazide discontinued last visit. In improved to 1:30 5 repeat CMP tomorrow 3. Metabolic encephalopathy resolved 4. Chronic migraine headaches, occipital neuritis. Continue Fioricet as needed 5. Acute abdominal pain with diarrhea CT abdomen negative for any acute process And lipase is normal WBC normal diarrhea has improved since yesterday. Stool studies sent 6. Hypertension. Continue losartan 100 mg daily, Lopressor 25 mg twice daily. 7. Hyperlipidemia. 8. History of hyponatremia with SIADH. On sodium tablet 1 g twice a day 9. DVT prophylaxis. 10. GI prophylaxis. 11. Hyperlipidemia. Continue simvastatin 40 mg at bedtime. Discharge plan: Once stabilized
[2018-10-07] MEDS: LATANOPROST 0.005% OPHTH DROPS 2.5 ML BTL LEFT EYE SCH (20:35)
[2018-10-07] MEDS: SIMVASTATIN PO SCH (20:36)
[2018-10-07] MEDS: DIAZEPAM 2 MG TAB PO SCH (20:39)
[2018-10-08] MEDS: HYDROmorphone 0.5 MG/0.5 ML SYRINGE IVP PRN ×4 (04:26→22:18)
[2018-10-08] MEDS: ONDANSETRON 4 MG/2 ML VIAL IVP PRN ×4 (04:30→22:18)
[2018-10-08] MEDS: LOSARTAN 50 MG TAB PO SCH (07:51)
[2018-10-08] MEDS: ASPIRIN 81 MG PO SCH (07:51)
[2018-10-08] MEDS: SODIUM CHLORIDE TAB 1 GM TAB PO SCH ×2 (07:51→22:14)
[2018-10-08] MEDS: PANTOPRAZOLE 40 MG TABLET PO SCH ×2 (07:51→15:32)
[2018-10-08] MEDS: METOPROLOL TARTRATE 25 MG TAB PO SCH ×2 (07:51→22:09)
[2018-10-08] MEDS: ESCITALOPRAM 10 MG TAB PO SCH (07:52)
[2018-10-08] MEDS: DORZOLAMIDE-TIMOLOL 2.23%/0.68 10ML BTL LEFT EYE SCH ×2 (08:00→22:12)
[2018-10-08] MEDS: prednisoLONE ACETATE 1% OPHTH DROPS 5 ML BTL RIGHT EYE SCH ×2 (08:01→22:12)
[2018-10-08] MEDS: BRIMONIDINE TARTRATE 0.2% DROPS 5 ML BTL LEFT EYE SCH ×2 (08:01→22:11)
[2018-10-08] MEDS: SUCRALFATE 1 GM TAB PO SCH ×4 (08:03→22:09)
[2018-10-08] MEDS: GABAPENTIN 300 MG CAP PO SCH ×3 (08:25→22:09)
[2018-10-08] MEDS: DICYCLOMINE 20 MG TAB PO SCH ×3 (08:42→22:09)
[2018-10-08 08:56] LABS: Basophils % (A) 1 %; Eosinophils # (A) 0.2 k/uL (0-0.7); Eosinophils % (A) 5 %; HCT 36.2 % (39.0-53.0); HGB 11.7 gm/dL (13.0-17.5); Lymphocytes # (A) 1.3 k/uL (1.0-4.8); Lymphocytes % (A) 26 %; MCH 30.5 pg (25.0-35.0); MCHC 32.4 g/dL (31.0-37.0); MCV 94.1 fL (80.0-100.0); Mean Platelet Volume 6.2; Monocytes # (A) 0.5 k/uL (0-1.0); Monocytes % (A) 11 %; Neutrophils # (A) 2.7 k/uL (1.3-7.7); Neutrophils % (A) 55 %; Platelet Count 315 k/uL (150-450); RBC 3.85 m/uL (4.30-5.90); RDW 13.4 % (11.5-15.5); WBC 4.9 k/uL (3.8-10.6)
[2018-10-08 09:13] LABS: ALT 16 U/L (21-72); AST 13 U/L (17-59); African American GFR (CKD) >90 (>60 ml/min/1.73 sqM); Albumin 3.7 g/dL (3.5-5.0); Alkaline Phosphatase 71 U/L (38-126); Anion Gap 7 mmol/L; Blood Urea Nitrogen 5 mg/dL (9-20); Calcium 8.7 mg/dL (8.4-10.2); Carbon Dioxide 25 mmol/L (22-30); Chloride 106 mmol/L (98-107); Glucose 105 mg/dL (74-99); Non-African American GFR(CKD) >90 (>60 ml/min/1.73 sqM); Potassium 4.4 mmol/L (3.5-5.1); Sodium 138 mmol/L (137-145); Total Bilirubin 0.4 mg/dL (0.2-1.3); Total Protein 6.2 g/dL (6.3-8.2)
--- NOTE | 2018-10-08 12:06 | P.PN ---
Subjective Progress Note Date: 10/08/18 Principal diagnosis: Still reports diffuse abdominal pain sometimes radiating to the left upper quadrant flank sometimes down midline. Afebrile. Upper GI small bowel follow-through unremarkable yesterday. White count 4.9. Hemoglobin 11.7. Lipase 86. LFTs stable. Denies hematemesis hematochezia or melena. Objective - Vital Signs Vital signs: Vital Signs Temp 98.1 F 10/08/18 04:35 Pulse 59 L 10/08/18 04:35 Resp 20 10/08/18 04:35 BP 152/82 10/08/18 04:35 Pulse Ox 98 10/08/18 04:35 Intake & Output 10/07/18 10/08/18 10/08/18 18:59 06:59 18:59 Intake Total 200 Output Total 500 Balance -500 200 Intake: Oral 200 Output: Urine 500 Other: Voiding Method Urinal Urinal # Voids 2 - Exam General appearance: The patient is alert, oriented, in no acute distress. HET: Head is normocephalic and atraumatic. Pupils are equal and reactive. Oropharynx is clear without lesions. Neck: Supple without lymphadenopathy. Trachea midline. Heart: S1 S2. Regular rate and rhythm. Lungs: No crackles or wheezes are heard. Abdomen: Soft, diffusely mildly tender across the midabdomen extending to the le ft upper quadrant with bowel sounds. No peritoneal signs. No palpable organomegaly or masses. Extremities: Normal skin color and turgor. No cyanosis, rash, ulceration, clubbing, or edema. Radial and pedal pulses are 2/4 bilaterally. Neurological: No focal deficits. Strength and sensation are grossly intact. - Labs CBC & Chem 7: 10/08/18 08:29 10/08/18 08:29 Labs: Abnormal Lab Results - Last 24 Hours (Table) 10/08/18 10/08/18 Range/Units 08:29 08:29 RBC 3.85 L (4.30-5.90) m/uL Hgb 11.7 L (13.0-17.5) gm/dL Hct 36.2 L (39.0-53.0) % BUN 5 L (9-20) mg/dL Glucose 105 H (74-99) mg/dL AST 13 L (17-59) U/L ALT 16 L (21-72) U/L Total Protein 6.2 L (6.3-8.2) g/dL Microbiology - Last 24 Hours (Table) 10/07/18 23:00 Stool Culture - Preliminary Stool Assessment and Plan (1) Abdominal pain Narrative/Plan: Acute on chronic abdominal epigastric abdominal pain with non bloody nausea vomiting x 1 day. History of benign duodenal stricture most recent EGD December 2017. Etiology is unclear possible exacerbation of GERD possible anxiety irritable bowel component, sensitivity to hyponatremia to be kept in mind as well. Status post upper GI small bowel follow-through with no evidence of obstruction still experiencing persistent abdominal pain with unremarkable LFTs and lipase. Unsure if pain is vascular versus neuropathic etiology is unclear. Current Visit: Yes Status: Acute Code(s): R10.9 - UNSPECIFIED ABDOMINAL PAIN SNOMED Code(s): 96195612 (2) Nausea & vomiting Current Visit: Yes Status: Acute Code(s): R11.2 - NAUSEA WITH VOMITING, UNSPECIFIED SNOMED Code(s): 42419607 (3) Duodenal stricture Current Visit: Yes Status: Acute Code(s): K31.5 - OBSTRUCTION OF DUODENUM SNOMED Code(s): 60558788 (4) Hyponatremia Current Visit: Yes Status: Acute Code(s): E87.1 - HYPO-OSMOLALITY AND HYPONATREMIA SNOMED Code(s): 97866419 Plan: 1. Dr. Subramanian recommend CT angiography abdomen and pelvis to evaluate abdominal vasculature. Continue with present medical therapy and supportive measures. Inpatient EGD is not advised at this time. We'll continue to follow closely with you. Assessment and plan a care discussed with Dr. Subramanian
--- NOTE | 2018-10-08 15:20 | P.PN ---
Subjective Progress Note Date: 10/08/18 This is a 67-year-old male patient of khadijah and Dr. Subramanian with past medical history of coronary artery disease status post stenting, SVT status post ablation, steroid injections of the cervical spine along with radiofrequency ablation, history of gastric ulcers, chronic duodenal stricture EGD in 2017 suggested stable duodenal stricture, last EGD with biopsy findings mild gastritis involving the proximal body of the stomach status post biopsy, nonobstructive duodenal stricture along the duodenal sweep, patchy areas of erythema with couple of linear erosions in the distal esophagus consistent with L8 grade B reflux esophagitis. Biopsy report showed gastric body biopsy with chronic gastritis, H. pylori negative. Esophagus biopsy showed acute and chronic esophagitis consistent with reflux esophagitis. This was negative for fungal organisms. Patient has a history of seizure activity in 2018 admission secondary to hyponatremia at 112. Patient last admitted on 09/21 due to hyponatremia and metabolic encephalopathy. Hydrochlorothiazide was considered to be the contributing factor and was discontinued. Patient presents to [facility] emergency center due to sudden onset of nausea and vomiting that started yesterday. Patient also documents to episodes of diarrhea that happened yesterday associated with acute abdominal pain. Abdominal pain is a 8 out of 10 severe in nature generalized in character. Patient saw Dr. Hickman 2 weeks ago who wa shappy with recovery that patient made. She has been avoiding spicy food avoiding coffee or caffeine to prevent headaches and worsening of gastritis. He was initiated on Lexapro for worsening anxiety. Vitals obtain suggested temperature 97.6 pulse of 56 EKG is normal sinus blood pressure 150/88 saturating well on room air. Sodium had improved on discharge currently is 128 chloride 95 creatinine 0.59 glucose 109. Lipase is normal Patient to be started on clear liquid diet with IV fluids running at 100 mL/h. Since patient is having significant abdominal pain will order a computed tomography scan of the abdomen. 10/07 patient examined at bedside. Appears weak and dehydrated. Sodium is improved to 135. Continue sodium tablets 1 g twice a day continue IV fluids at100 mL/h. Nausea and vomiting has improved patient continues to have epigastric tenderness along with right upper quadrant pain. Patient had cholecystectomy by Dr. Marcus and LFTs normal, unclear etiology of the right upper quadrant pain. CT abdomen negative for any biliary dilation or concern for a biliary stone. Small bowel follow through is pending 8/9 Patient examined bedside. Continues to have nausea that started at 4 AM in the morning with left upper quadrant abdominal pain and epigastric pain associated with chest pain. Patient's small bowel follow-through results were negativeand of obstruction or ED in gastric emptying seen. Is ordered to rule out an eccentric ischemia. ESR and CRP a mildly disease ordered to evaluate for any inflammation process. Patient's nausea vomiting could be related to the adrenal insufficiency. Patient has endocrinology appointment coming up on Thursday. Meanwhile we'll continue patient on Valium 5 mg every night at bedtime to control patient anxiety Patient would need a prescription of Valium on discharge. Vitals otherwise stable patient has a temp of 98 1, heart rate of 56 blood pressure 145/78 saturating well on room air. Sodium is 138 today. Creatinine is 0.73 stool lactoferrin is negative ROS Constitutional: Denies chills, Denies fever, endorses lethargy, Eyes: denies decreased vision, denies diplopia, denies discharge, denies pain Ears: deny: decreased hearing Ears, nose, mouth and throat: Denies dental pain, Denies headache, Denies nasal discharge, Denies nose pain Cardiovascular: Denies chest pain, Denies decreased exercise tolerance, Denies edema, Denies high blood pressure, Denies irregular heart beat, Denies palpitations, Denies paroxysmal nocturnal dyspnea, Denies rapid heart beat, Denies shortness of breath Respiratory: Denies congestion, Denies cough, Denies cough with sputum, Denies dyspnea, Denies home oxygen, Denies wheezing Gastrointestinal: positive abdominal pain, Denies change in bowel habits, Denies coffee ground emesis, Denies early satiety, Denies excessive gas, Denies heartburn, Denies hematemesis, Denies hematochezia, Denies loss of appetite, endorses nausea, Denies vomiting Genitourinary: Denies dysuria, Denies flank pain, Denies kidney stones, Denies menorrhagia, Denies urgency, Denies urinary frequency Musculoskeletal: Denies gait dysfunction, Denies limitation of motion, Denies morning stiffness, Denies muscle cramps Integumentary: Denies rash, Denies wounds, Denies brittle nails, Denies change in hair/nails, Denies darkening of skin Neurological: Denies balance difficulties, Denies change in speech, Denies double vision, Denies gait dysfunction, Denies loss of vision, Denies motor disturbance, Denies numbness, Denies paralysis, Denies paresthesias, Denies seizures Psychiatric: Denies anxiety, Denies depression Endocrine: Denies excessive sweating, Denies excessive thirst, Denies high blood sugars, Denies palpitations Hematologic/Lymphatic: Denies easy bruising, Denies lymphadenopathy Objective - Vital Signs Vital signs: Vital Signs Temp 98.3 F 10/08/18 13:07 Pulse 62 10/08/18 13:07 Resp 16 10/08/18 13:07 BP 147/82 10/08/18 13:07 Pulse Ox 98 10/08/18 13:07 Intake & Output 10/07/18 10/08/18 10/08/18 18:59 06:59 18:59 Intake Total 200 Output Total 500 600 Balance -500 200 -600 Intake: Oral 200 Output: Urine 500 600 Other: Voiding Method Urinal Urinal # Voids 2 - Exam - Constitutional General appearance: cooperative, no acute distress, obese - EENT Eyes: anicteric sclerae, PERRLA, normal appearance ENT: hearing grossly normal - Neck Neck: no lymphadenopathy, normal ROM, no other, no rigidity, no stridor, no thyromegaly - Respiratory Respiratory: bilateral: CTA, negative: diminished, dullness, rales, rhonchi - Cardiovascular Rhythm: regular Heart sounds: normal: S1, S2 Abnormal Heart Sounds: no systolic murmur, no diastolic murmur, no rub, no S3 Gallop, no S4 Gallop, no click, no other - Gastrointestinal General gastrointestinal: normal bowel sounds, soft left upper quadrant and epigastric tenderness bowel sounds are present - Integumentary Integumentary: no rash - Neurologic Neurologic: CNII-XII intact - Musculoskeletal Musculoskeletal: gait normal, strength equal bilaterally - Psychiatric Psychiatric: A&O x's 3, appropriate affect - Labs CBC & Chem 7: 10/08/18 08:29 10/08/18 08:29 Labs: Abnormal Lab Results - Last 24 Hours (Table) 10/08/18 10/08/18 Range/Units 08:29 08:29 RBC 3.85 L (4.30-5.90) m/uL Hgb 11.7 L (13.0-17.5) gm/dL Hct 36.2 L (39.0-53.0) % BUN 5 L (9-20) mg/dL Glucose 105 H (74-99) mg/dL AST 13 L (17-59) U/L ALT 16 L (21-72) U/L Total Protein 6.2 L (6.3-8.2) g/dL Microbiology - Last 24 Hours (Table) 10/07/18 23:00 Stool Culture - Preliminary Stool Assessment and Plan Plan: 1. Intractable nausea and vomitingwith abd pain unclear etiology with history of severe gastritis with and mild duodenal stricture. Small bowel follow- through was negative for any obstruction. Gastric outlet obstruction unlikely as patient had no delay in gastric emptying during the study. Likely etiology either adrenal insufficiency or cardiac. Cardiology consult to rule out cardiac etiology. Patient has a follow-up with endocrinology as outpatient to rule out adrenal insufficiency as he had low cortisol in the previous admission. Continue IV fluids of 0.9 normal saline at100 mL per hour. Patient is currently on a fall liquid diet. Zofran as needed for nausea. Continue Protonix [address] abd negative for any acute process. CTA ordered for tomorrow to rule out mesenteric ischemia 2. Hypovolemic Hyponatremia most likely secondary to a combination of dehydration with possible adrenal insufficiency. cortisol was 1 and patient had a poor response to cosyntropin stimulation test Patient was asked to hold off hydrocortisone tills een by endocrinology as it can messup the resutls . Hydrochlorothiazide discontinued last visit. In improved to 138 today 3. Metabolic encephalopathy resolved 4. Chronic migraine headaches, occipital neuritis. Continue Fioricet as needed 5. Acute abdominal pain with diarrhea CT abdomen negative for any acute process And lipase is normal WBC normal diarrhea has improved since yesterday. Stool studies sent 6. Hypertension. Continue losartan 100 mg daily, Lopressor 25 mg twice daily. 7. Hyperlipidemia. 8. History of hyponatremia with SIADH. On sodium tablet 1 g twice a day 9. DVT prophylaxis. 10. GI prophylaxis. 11. Hyperlipidemia. Continue simvastatin 40 mg at bedtime. Discharge plan: Likely after a CTA
[2018-10-08 15:42] LABS: Amylase <30 U/L (30-110); C Reactive Protein 7.5 mg/L (<10.0)
--- NOTE | 2018-10-08 16:18 | CT ---
EXAMINATION TYPE: CT discontinued procedure DATE OF EXAM: 10/08/2018 HISTORY: Abdominal pain. Unable to scan due to contrast in bowel Large amount of contrast noted within the colon from prior upper GI. Repeat scanning can be performed following passage of the contrast material.
[2018-10-08] MEDS ORDERED: DIAZEPAM 5 MG TAB PO SCH (21:00)
[2018-10-08] MEDS: SIMVASTATIN PO SCH (22:09)
[2018-10-08] MEDS: LATANOPROST 0.005% OPHTH DROPS 2.5 ML BTL LEFT EYE SCH (22:11)
[2018-10-09] MEDS: BUTALB/APAP/CAFF 50-325-40MG TAB PO PRN ×2 (00:14→07:31)
[2018-10-09 01:05] VITALS: RESP 20
[2018-10-09] MEDS: HYDROmorphone 0.5 MG/0.5 ML SYRINGE IVP PRN (04:36)
[2018-10-09] MEDS: ONDANSETRON 4 MG/2 ML VIAL IVP PRN (04:36)
[2018-10-09 06:15] VITALS: BP 158/81; PULSE 65; TEMP 97.8
[2018-10-09] MEDS: SUCRALFATE 1 GM TAB PO SCH (07:29)
[2018-10-09] MEDS: DICYCLOMINE 20 MG TAB PO SCH (07:30)
[2018-10-09] MEDS: METOPROLOL TARTRATE 25 MG TAB PO SCH (07:30)
[2018-10-09] MEDS: LOSARTAN 50 MG TAB PO SCH (07:30)
[2018-10-09] MEDS: ESCITALOPRAM 10 MG TAB PO SCH (07:30)
[2018-10-09] MEDS: PANTOPRAZOLE 40 MG TABLET PO SCH (07:31)
[2018-10-09] MEDS: BRIMONIDINE TARTRATE 0.2% DROPS 5 ML BTL LEFT EYE SCH (07:32)
[2018-10-09] MEDS: GABAPENTIN 300 MG CAP PO SCH (07:32)
[2018-10-09] MEDS: DORZOLAMIDE-TIMOLOL 2.23%/0.68 10ML BTL LEFT EYE SCH (07:33)
[2018-10-09] MEDS: prednisoLONE ACETATE 1% OPHTH DROPS 5 ML BTL RIGHT EYE SCH (07:33)
[2018-10-09] MEDS: SODIUM CHLORIDE TAB 1 GM TAB PO SCH (07:40)
[2018-10-09 08:27] LABS: Basophils % (A) 1 %; Eosinophils # (A) 0.3 k/uL (0-0.7); Eosinophils % (A) 5 %; HCT 37.7 % (39.0-53.0); HGB 11.9 gm/dL (13.0-17.5); Lymphocytes # (A) 1.5 k/uL (1.0-4.8); Lymphocytes % (A) 24 %; MCHC 31.6 g/dL (31.0-37.0); MCV 94.8 fL (80.0-100.0); Monocytes # (A) 0.6 k/uL (0-1.0); Monocytes % (A) 9 %; Neutrophils # (A) 3.7 k/uL (1.3-7.7); Neutrophils % (A) 59 %; Platelet Count 331 k/uL (150-450); RBC 3.98 m/uL (4.30-5.90); RDW 13.2 % (11.5-15.5); WBC 6.3 k/uL (3.8-10.6)
[2018-10-09 08:45] LABS: ALT 16 U/L (21-72); AST 15 U/L (17-59); African American GFR (CKD) >90 (>60 ml/min/1.73 sqM); Albumin 3.8 g/dL (3.5-5.0); Alkaline Phosphatase 72 U/L (38-126); Anion Gap 10 mmol/L; Blood Urea Nitrogen 4 mg/dL (9-20); Calcium 8.8 mg/dL (8.4-10.2); Carbon Dioxide 23 mmol/L (22-30); Chloride 106 mmol/L (98-107); Glucose 112 mg/dL (74-99); Non-African American GFR(CKD) >90 (>60 ml/min/1.73 sqM); Potassium 4.1 mmol/L (3.5-5.1); Sodium 139 mmol/L (137-145); Total Bilirubin 0.4 mg/dL (0.2-1.3); Total Protein 6.4 g/dL (6.3-8.2)
--- NOTE | 2018-10-09 10:35 | PN ---
PROGRESS NOTE DATE OF SERVICE: October 09, 2018 Patient is a 67-year-old pleasant white male admitted to the hospital with acute onset of severe epigastric pain associated with nausea, vomiting for 2 days prior to hospitalization. The patient was recently hospitalized 2 weeks earlier and was treated symptomatically and was discharged home. During this hospitalization, he did have a CT of the abdomen and pelvis done that was unremarkable. Upper GI with small bowel series was unremarkable. He was scheduled for a CT angiogram to rule out chronic mesenteric ischemia, but that was not done because of presence of bleeding from the prior small bowel series. In any event, he is feeling much better today. He still has some vague epigastric discomfort, but the nausea and vomiting has resolved on a full liquid diet, tolerating well. PHYSICAL EXAMINATION: Appears comfortable. Blood pressure is 150/82, pulse 59, temperature 98.3. HEENT examination unremarkable. Conjunctivae pink. Sclerae anicteric. Oral cavity no lesions. Neck no JVD. Chest was clear to auscultation. HEART: Regular rate and rhythm. ABDOMEN: Soft. There is very minimal tenderness in the epigastric area. Rest of the abdomen was benign. Extremities no pedal edema. Skin no rashes. NEUROLOGIC: Alert and oriented x3. No focal deficits. LABS: From today WBC 6.3, hemoglobin 11.9, platelets are normal. BUN and creatinine normal. Basic metabolic panel is within normal limits. ALT, AST, T-bilirubin, alkaline phosphatase are within normal limits. Amylase and lipase normal yesterday. IMPRESSION: Intermittent episodes of abdominal pain associated with nausea, vomiting, on and off for the last 3 years duration. Symptoms are much worse during this hospitalization as mentioned above. CT of the abdomen and pelvis as well as upper GI with small bowel series has been negative. The etiology of his ongoing symptoms still remains unclear. Possibility of chronic mesenteric ischemia cannot be excluded though very unlikely given the nature of his symptoms, CT angiogram of the abdomen could not be performed because of presence of bleeding from the previous small bowel series that was done 2 days ago. RECOMMENDATIONS: 1. Advance diet. 2. Continue with symptomatic treatment. 3. Since the gastrointestinal symptoms have significantly improved, he can be discharged home with an outpatient followup in 1-2 weeks and at that time he will be scheduled for a CT angiogram to investigate further. The plan was discussed with the patient. He is agreeable to it. Thank you for this consultation. MMODL / IJN: [id number] /
--- NOTE | 2018-10-09 13:36 | P.DS ---
Providers Date of admission: 10/06/18 15:39 Attending physician: Pop Castaneda MD Consults: 10/06/18 16:13 Consult Physician Routine Consulting Provider: Leyla Subramanian Consult Reason/Comments: intractable nasuea and vomiting, previous h/o duodenal stricture Do you want consulting provider notified?: Yes Primary care physician: Pop Castaneda MD Hospital Course: Progress Note Date: 10/08/18 This is a 67-year-old male patient of [facility] and Dr. Subramanian with past medical history of coronary artery disease status post stenting, SVT status post ablation, steroid injections of the cervical spine along with radiofrequency ablation, history of gastric ulcers, chronic duodenal stricture EGD in 2017 suggested stable duodenal stricture, last EGD with biopsy findings mild gastritis involving the proximal body of the stomach status post biopsy, nonobstructive duodenal stricture along the duodenal sweep, patchy areas of erythema with couple of linear erosions in the distal esophagus consistent with L8 grade B reflux esophagitis. Biopsy report showed gastric body biopsy with chronic gastritis, H. pylori negative. Esophagus biopsy showed acute and chronic esophagitis consistent with reflux esophagitis. This was negative for fungal organisms. Patient has a history of seizure activity in 2018 admission secondary to hyponatremia at 112. Patient last admitted on 09/21 due to hyponatremia and metabolic encephalopathy. Hydrochlorothiazide was considered to be the contributing factor and was discontinued. Patient presents to [facility] emergency center due to sudden onset of nausea and vomiting that started yesterday. Patient also documents to episodes of diarrhea that happened yesterday associated with acute abdominal pain. Abdominal pain is a 8 out of 10 severe in nature generalized in character. Patient saw Dr. Hickman 2 weeks ago who wa shappy with recovery that patient made. She has been avoiding spicy food avoiding coffee or caffeine to prevent headaches and worsening of gastritis. He was initiated on Lexapro for worsening anxiety. Vitals obtain suggested temperature 97.6 pulse of 56 EKG is normal sinus blood pressure 150/88 saturating well on room air. Sodium had improved on discharge currently is 128 chloride 95 creatinine 0.59 glucose 109. Lipase is normal Patient to be started on clear liquid diet with IV fluids running at 100 mL/h. Since patient is having significant abdominal pain will order a computed tomography scan of the abdomen. 10/07 patient examined at bedside. Appears weak and dehydrated. Sodium is improved to 135. Continue sodium tablets 1 g twice a day continue IV fluids at100 mL/h. Nausea and vomiting has improved patient continues to have epigastric tenderness along with right upper quadrant pain. Patient had cholecystectomy by Dr. Marcus and LFTs normal, unclear etiology of the right upper quadrant pain. CT abdomen negative for any biliary dilation or concern for a biliary stone. Small bowel follow through is pending 10/08 Patient examined bedside. Continues to have nausea that started at 4 AM in the morning with left upper quadrant abdominal pain and epigastric pain associated with chest pain. Patient's small bowel follow-through results were negativeand of obstruction or ED in gastric emptying seen. Is ordered to rule out an eccentric ischemia. ESR and CRP a mildly disease ordered to evaluate for any inflammation process. Patient's nausea vomiting could be related to the adrenal insufficiency. Patient has endocrinology appointment coming up on Thursday. Meanwhile we'll continue patient on Valium 5 mg every night at bedtime to control patient anxiety Patient would need a prescription of Valium on discharge. Vitals otherwise stable patient has a temp of 98 1, heart rate of 56 blood pressure 145/78 saturating well on room air. Sodium is 138 today. Creatinine is 0.73 stool lactoferrin is negative. 10/09: Patient is resting comfortably in bed. Patient states that his nausea and left upper quadrant and epigastric pain has decreased. Patient is anxious to go home. He will follow-up with Dr. Subramanian outpatient setting. Patient states that he has nausea and pain medication that was prescribed by Dr. Subramanian that he will use at home. Discharge diagnosis: 1. Intractable nausea and vomitingwith abd pain unclear etiology with history of severe gastritis with and mild duodenal stricture. 2. Hypovolemic Hyponatremia most likely secondary to a combination of dehydration with possible adrenal insufficiency. 3. Metabolic encephalopathy 4. Chronic migraine headaches, occipital neuritis. 5. Acute abdominal pain with diarrhea 6. Hypertension. 7. Hyperlipidemia. 8. History of hyponatremia with SIADH. 9. Hyperlipidemia. Disposition: Home with self-care. Impression and plan of care have been directed as dictated by the signing physician. Elissa Gregorio nurse practitioner acting as scribe for signing physician. Patient Condition at Discharge: Good Plan - Discharge Summary Discharge Rx Participant: No New Discharge Prescriptions: Continue Simvastatin [Zocor] 40 mg PO HS Brimonidine Tartrate [Alphagan P 0.2% Ophth Soln] 1 drop LEFT EYE BID Pantoprazole Sodium 40 mg PO BID Dicyclomine [Bentyl] 10 mg PO TID Sodium Chloride Tab 1 gm PO DAILY Dorzolamide-Timol 2.23%/0.68% [Cosopt] 1 drop LEFT EYE BID Gabapentin [Neurontin] 300 mg PO TID prednisoLONE ACETATE 1% OPHTH [Pred Forte 1%] 1 drops RIGHT EYE BID Aspirin 81 mg PO DAILY Metoprolol Tartrate [Lopressor] 25 mg PO BID Sucralfate [Carafate] 1 gm PO ACHS Ondansetron [Zofran ODT] 4 mg PO BID PRN PRN Reason: Nausea Losartan Potassium 100 mg PO DAILY Latanoprost [Xalatan 0.005%] 1 drop LEFT EYE HS Escitalopram [Lexapro] 10 mg PO DAILY Butalb/APAP/Caff 50-325-40Mg [Fioricet 50-325-40] 1 tab PO Q4HR PRN PRN Reason: Headache Discharge Medication List Simvastatin [Zocor] 40 mg PO HS 07/12/13 [History] Brimonidine Tartrate [Alphagan P 0.2% Ophth Soln] 1 drop LEFT EYE BID 02/20/16 [History] Pantoprazole Sodium 40 mg PO BID 06/26/16 [History] Dicyclomine [Bentyl] 10 mg PO TID 06/04/17 [History] Dorzolamide-Timol 2.23%/0.68% [Cosopt] 1 drop LEFT EYE BID 01/27/18 [History] Sodium Chloride Tab 1 gm PO DAILY 01/27/18 [History] Gabapentin [Neurontin] 300 mg PO TID 04/26/18 [History] prednisoLONE ACETATE 1% OPHTH [Pred Forte 1%] 1 drops RIGHT EYE BID 04/26/18 [History] Aspirin 81 mg PO DAILY 05/27/18 [History] Latanoprost [Xalatan 0.005%] 1 drop LEFT EYE HS 09/20/18 [History] Losartan Potassium 100 mg PO DAILY 09/20/18 [History] Metoprolol Tartrate [Lopressor] 25 mg PO BID 09/20/18 [History] Ondansetron [Zofran ODT] 4 mg PO BID PRN 09/20/18 [History] Sucralfate [Carafate] 1 gm PO ACHS 09/20/18 [History] Butalb/APAP/Caff 50-325-40Mg [Fioricet 50-325-40] 1 tab PO Q4HR PRN 10/06/18 [History] Escitalopram [Lexapro] 10 mg PO DAILY 10/06/18 [History] Follow up Appointment(s)/Referral(s): Pop Castaneda MD [Primary Care Provider] - 1 Week (Please call to schedule appointment. Office closed) Jeff Goode MD [STAFF PHYSICIAN] - As Needed Leyla Subramanian MD [STAFF PHYSICIAN] - 2 Weeks (Please call to schedule your follow up appointment. Office closed) Activity/Diet/Wound Care/Special Instructions: Endocrinology appointment Thursday please follow up with known Data Con[employer] Developer Dr. SELENA Goode activity as tolerated soft food diet as tolerated Discharge Disposition: HOME SELF-CARE
== END 2018-10-09 11:12 | disposition home or self-care (01) | DRG 391 ==
LOC: EC 12:03 → 4MS4W 14:51 → OBSVTOIN 15:39 → 4MS4W 18:16
PROVIDERS: ADMIT Internal Medicine; ATTEND Internal Medicine
DX: R11.2 Nausea with vomiting, unspecified (principal); G93.41 Metabolic encephalopathy; E87.1 Hypo-osmolality and hyponatremia; E27.40 Unspecified adrenocortical insufficiency; K29.70 Gastritis, unspecified, without bleeding; E86.1 Hypovolemia; R10.9 Unspecified abdominal pain; G43.909 Migraine, unspecified, not intractable, without status migrainosus; E86.0 Dehydration; I10 Essential (primary) hypertension; E78.5 Hyperlipidemia, unspecified; F41.9 Anxiety disorder, unspecified; H40.9 Unspecified glaucoma; R19.7 Diarrhea, unspecified; I25.10 Atherosclerotic heart disease of native coronary artery without angina pectoris; Z96.1 Presence of intraocular lens; M19.90 Unspecified osteoarthritis, unspecified site; K21.0 Gastro-esophageal reflux disease with esophagitis; M79.2 Neuralgia and neuritis, unspecified; Z79.82 Long term (current) use of aspirin; I25.2 Old myocardial infarction; Z79.899 Other long term (current) drug therapy; Z80.0 Family history of malignant neoplasm of digestive organs; Z82.49 Family history of ischemic heart disease and other diseases of the circulatory system; Z83.3 Family history of diabetes mellitus; Z87.11 Personal history of peptic ulcer disease; Z87.891 Personal history of nicotine dependence; Z90.49 Acquired absence of other specified parts of digestive tract; Z95.5 Presence of coronary angioplasty implant and graft; Z88.8 Allergy status to other drugs, medicaments and biological substances; Z90.89 Acquired absence of other organs; Z98.42 Cataract extraction status, left eye; Z98.41 Cataract extraction status, right eye; Z80.8 Family history of malignant neoplasm of other organs or systems
CPT/HCPCS: 36415; 74018; 74177; 74245; 76380; 80053; 81003; 82150; 83605; 83630; 83690; 83930; 83935; 83993; 84484; 84550; 85025; 85652; 86140; 87045; 87046; 93005; 96361; 96374; 96375; 99285

== ENCOUNTER → 2019-09-13 | Outpatient (CLI) | payer MEDICARE ==
[2019-09-13 17:44] LABS: African American GFR (CKD) 104.9 (60.0-200.0); Albumin 4.7 g/dL (3.80-4.90); Albumin/Globulin Ratio 2.24 (1.60-3.17); Anion Gap 8.8 mmol/L (4.00-12.00); Calcium 9.8 mg/dL (8.7-10.3); Carbon Dioxide 28.2 mmol/L (21.6-31.8); Globulin 2.1 g/dL (1.6-3.3); Non-African American GFR(CKD) 90.5 (60.0-200.0); Potassium 4.8 mmol/L (3.5-5.5); Total Bilirubin 0.4 mg/dL (0.3-1.2); Total Protein 6.8 g/dL (6.2-8.2)
[2019-09-13 17:54] LABS: Follicle Stimulating Hormone 23.8 mIU/mL
[2019-09-13 17:56] LABS: Prostate Specific Antigen 2.8 ng/mL (0.0-6.5)
== END | disposition home or self-care (01) ==
LOC: LABWHC1 07:51
PROVIDERS: ATTEND Internal Medicine
DX: E87.1 Hypo-osmolality and hyponatremia (principal); F52.21 Male erectile disorder
CPT/HCPCS: 36415; 80053; 83001; 83002; 84153; 84402; 84403; 84443

== ENCOUNTER → 2019-09-22 | Outpatient (CLI) | payer MEDICARE | END | disposition home or self-care (01) | LOC: LABWHC1 07:09 | PROVIDERS: ATTEND Internal Medicine | DX: F52.21 Male erectile disorder (principal) | CPT/HCPCS: 36415; 84402; 84403 ==

== ENCOUNTER 2019-12-25 13:27 | Observation (INO) | payer MEDICARE ==
[2019-12-25] MEDS ORDERED: ASPIRIN 81 MG PO STA (13:41)
[2019-12-25] MEDS ORDERED: NITROGLYCERIN SL TABS 0.4 MG TAB SUBLINGUAL STA ×3 (13:41)
--- NOTE | 2019-12-25 13:44 | ED ---
General Adult HPI - General Chief complaint: Chest Pain Stated complaint: Chest pain Time Seen by Provider: 12/25/19 13:31 Source: patient, RN notes reviewed Mode of arrival: wheelchair Limitations: no limitations - History of Present Illness Initial comments: patient is a pleasant 69-year-old male presenting to the emergency Department with complaints of chest discomfort. Onset was this morning. Symptoms have been waxing and waning however is becoming severe at this time. Currently rated 8/10. Discomfort feels like an ache. There is some discomfort of the left arm as well however otherwise no radiation. No associated dyspnea. Patient has b een nauseated and still has some nausea. No diaphoresis. Patient did have similar symptomsyears ago associated with eating cardiac stents. - Related Data Home Medications Medication Instructions Recorded Confirmed Simvastatin [Zocor] 40 mg PO HS 07/12/13 10/06/18 Brimonidine Tartrate [Alphagan P 1 drop LEFT EYE BID 02/20/16 10/06/18 0.2% Ophth Soln] Pantoprazole Sodium 40 mg PO BID 06/26/16 10/06/18 Dicyclomine [Bentyl] 10 mg PO TID 06/04/17 10/06/18 Dorzolamide-Timol 2.23%/0.68% 1 drop LEFT EYE BID 01/27/18 10/06/18 [Cosopt] Sodium Chloride Tab 1 gm PO DAILY 01/27/18 10/06/18 Gabapentin [Neurontin] 300 mg PO TID 04/26/18 10/06/18 prednisoLONE ACETATE 1% OPHTH 1 drops RIGHT EYE BID 04/26/18 10/06/18 [Pred Forte 1%] Aspirin 81 mg PO DAILY 05/27/18 10/06/18 Latanoprost [Xalatan 0.005%] 1 drop LEFT EYE HS 09/20/18 10/06/18 Losartan Potassium 100 mg PO DAILY 09/20/18 10/06/18 Metoprolol Tartrate [Lopressor] 25 mg PO BID 09/20/18 10/06/18 Ondansetron [Zofran ODT] 4 mg PO BID PRN 09/20/18 10/06/18 Sucralfate [Carafate] 1 gm PO ACHS 09/20/18 10/06/18 Butalb/APAP/Caff 50-325-40Mg 1 tab PO Q4HR PRN 10/06/18 10/06/18 [Fioricet 50-325-40] Escitalopram [Lexapro] 10 mg PO DAILY 10/06/18 10/06/18 Allergies Allergy/AdvReac Type Severity Reaction Status Date / Time atorvastatin [From Lipitor] AdvReac MUSCLE Verified 12/25/19 13:31 CRAMPS hydrochlorothiazide AdvReac Nausea & Verified 12/25/19 13:31 Vomiting Review of Systems ROS Statement: Those systems with pertinent positive or pertinent negative responses have been documented in the HPI. ROS Other: All systems not noted in ROS Statement are negative. Constitutional: Denies: fever Eyes: Denies: eye pain ENT: Denies: ear pain Respiratory: Denies: cough, dyspnea Cardiovascular: Reports: chest pain Endocrine: Denies: fatigue Gastrointestinal: Reports: nausea. Denies: abdominal pain Genitourinary: Denies: dysuria Musculoskeletal: Denies: back pain Skin: Denies: rash Neurological: Denies: weakness Past Medical History Past Medical History: Coronary Artery Disease (CAD), Chest Pain / Angina, Eye Disorder, GERD/Reflux, Hyperlipidemia, Hypertension, Myocardial Infarction (SC), Osteoarthritis (OA) Additional Past Medical History / Comment(s): NVD recently, Neck pain, SVT with ablation, duodenal ulcers, chronic duodenal stricture, bilateral glaucoma, sinusitis, migraines, anemia, esophagitis,hiatal hernia, chronic back pain, past fx ribs/sternum Last Myocardial Infarction Date:: 1999 History of Any Multi-Drug Resistant Organisms: None Reported Past Surgical History: Cardiac Ablation, Cholecystectomy, Heart Catheterization With Stent Additional Past Surgical History / Comment(s): stent right eye 03/2018, PCI with 3 stents, sinus surgery, cataracts bilaterally with lens implants, EG Ds/colonoscopies, Past Anesthesia/Blood Transfusion Reactions: No Reported Reaction Additional Past Anesthesia/Blood Transfusion Reaction / Comment(s): Pt has had past multiple transfusions without reaction. Date of Last Stent Placement:: 1999 Past Psychological History: Anxiety Smoking Status: Former smoker Past Alcohol Use History: None Reported Past Drug Use History: None Reported - Past Family History Father Additional Family Medical History / Comment(s): Father at the age of 68yrs from a ruptured aortic aneurysm. Mother Additional Family Medical History / Comment(s): Mother lived into her 80's. Brother(s) Family Medical History: Cancer Additional Family Medical History / Comment(s): The patient had 3 brothers. One from colon cancer with metastatic disease to the brain. One brother at age 79 from a myocardial infarction. He has 1 brother that is alive with history of skin cancer and diabetes. Sister(s) Additional Family Medical History / Comment(s): The patient is a total of 3 sisters. One in her 80s from myocardial infarction. One sister at age 58 from coronary artery disease and also had a valvular disorder. Patient has one sister alive with diabetes and multiple other medical conditions. Tabitha marquez has 2 sons and 1 daughter with no major medical problems. General Exam Limitations: no limitations General appearance: alert, in no apparent distress Head exam: Present: normocephalic Eye exam: Present: normal appearance Neck exam: Present: normal inspection Respiratory exam: Present: normal lung sounds bilaterally Cardiovascular Exam: Present: regular rate, normal rhythm Expanded Peripheral pulses: 2+: Radial (R), Radial (L), Dorsalis Pedis (R), Dorsalis Pedis (L) GI/Abdominal exam: Present: soft. Absent: tenderness Extremities exam: Present: normal inspection. Absent: pedal edema, calf tenderness Neurological exam: Present: alert Psychiatric exam: Present: normal affect, normal mood Skin exam: Present: normal color Course Vital Signs 12/25/19 12/25/19 12/25/19 13:28 14:02 14:30 Temperature 98.5 F Pulse Rate 92 92 78 Respiratory 20 16 Rate Blood Pressure 144/79 105/67 114/81 O2 Sat by Pulse 99 94 L Oximetry - Reevaluation(s) Reevaluation #1: 12/25/19 13:41 Patient states he does take tadalafil, last dose was 48 hours ago or more. Patient does confirm that it is been 48 hours and is comfortable with this. Research was done and acceptable timeline for using nitroglycerin is at 48 hours.patient and nurse are made aware. Nitro glycerin will be given slowly and blood pressure will be frequently monitored. EKG Findings - EKG Comments: EKG Findings:: normal sinus rhythm 92. MT 194. QRS 80. QT 348. QTC 4:30. Normal axis. Inferior Q waves. Septal Q waves. No acute ST change. Medical Decision Making - Medical Decision Making Patient reevaluated and feeling much better following morphine. Nitroglycerin did not help much. Patient and family updated on results and plan. Case discussed in detail with Dr. Ortiz, who will admit covering for Dr. Eaton - Lab Data Result diagrams: 12/25/19 13:43 12/25/19 13:43 Lab Results 12/25/19 12/25/19 12/25/19 Range/Units 13:43 13:43 13:43 WBC 6.6 (3.8-10.6) k/uL RBC 4.21 L (4.30-5.90) m/uL Hgb 13.6 (13.0-17.5) gm/dL Hct 40.4 (39.0-53.0) % MCV 96.0 (80.0-100.0) fL MCH 32.2 (25.0-35.0) pg MCHC 33.6 (31.0-37.0) g/dL RDW 11.6 (11.5-15.5) % Plt Count 283 (150-450) k/uL Neutrophils % 69 % Lymphocytes % 19 % Monocytes % 7 % Eosinophils % 2 % Basophils % 1 % Neutrophils # 4.6 (1.3-7.7) k/uL Lymphocytes # 1.3 (1.0-4.8) k/uL Monocytes # 0.5 (0-1.0) k/uL Eosinophils # 0.1 (0-0.7) k/uL Basophils # 0.1 (0-0.2) k/uL PT 9.6 (9.0-12.0) sec INR 0.9 (<1.2) APTT 25.1 (22.0-30.0) sec Sodium 134 L (137-145) mmol/L Potassium 3.7 (3.5-5.1) mmol/L Chloride 101 (98-107) mmol/L Carbon Dioxide 24 (22-30) mmol/L Anion Gap 9 mmol/L BUN 5 L (9-20) mg/dL Creatinine 0.89 (0.66-1.25) mg/dL Est GFR (CKD-EPI)AfAm >90 (>60 ml/min/1.73 sqM) Est GFR (CKD-EPI)NonAf 86 (>60 ml/min/1.73 sqM) Glucose 130 H (74-99) mg/dL Calcium 8.7 (8.4-10.2) mg/dL Magnesium 1.8 (1.6-2.3) mg/dL Total Bilirubin 0.4 (0.2-1.3) mg/dL AST 22 (17-59) U/L ALT 12 (4-49) U/L Alkaline Phosphatase 78 (38-126) U/L Troponin I (0.000-0.034) ng/mL Total Protein 6.8 (6.3-8.2) g/dL Albumin 4.0 (3.5-5.0) g/dL 12/25/19 Range/Units 13:43 WBC (3.8-10.6) k/uL RBC (4.30-5.90) m/uL Hgb (13.0-17.5) gm/dL Hct (39.0-53.0) % MCV (80.0-100.0) fL MCH (25.0-35.0) pg MCHC (31.0-37.0) g/dL RDW (11.5-15.5) % Plt Count (150-450) k/uL Neutrophils % % Lymphocytes % % Monocytes % % Eosinophils % % Basophils % % Neutrophils # (1.3-7.7) k/uL Lymphocytes # (1.0-4.8) k/uL Monocytes # (0-1.0) k/uL Eosinophils # (0-0.7) k/uL Basophils # (0-0.2) k/uL PT (9.0-12.0) sec INR (<1.2) APTT (22.0-30.0) sec Sodium (137-145) mmol/L Potassium (3.5-5.1) mmol/L Chloride (98-107) mmol/L Carbon Dioxide (22-30) mmol/L Anion Gap mmol/L BUN (9-20) mg/dL Creatinine (0.66-1.25) mg/dL Est GFR (CKD-EPI)AfAm (>60 ml/min/1.73 sqM) Est GFR (CKD-EPI)NonAf (>60 ml/min/1.73 sqM) Glucose (74-99) mg/dL Calcium (8.4-10.2) mg/dL Magnesium (1.6-2.3) mg/dL Total Bilirubin (0.2-1.3) mg/dL AST (17-59) U/L ALT (4-49) U/L Alkaline Phosphatase (38-126) U/L Troponin I <0.012 (0.000-0.034) ng/mL Total Protein (6.3-8.2) g/dL Albumin (3.5-5.0) g/dL - Radiology Data Radiology results: image reviewed (Chest x-ray shows no acute process) Disposition Clinical Impression: Chest pain Disposition: ADMITTED IP TO THIS HOSP Is patient prescribed a controlled substance at d/c from ED?: No Referrals: Pop Castaneda MD [Primary Care Provider] - 1-2 days Decision Time: 14:52
[2019-12-25] MEDS ORDERED: METOCLOPRAMIDE 5 MG/ML 2 ML VIAL IVP STA (13:45)
[2019-12-25] MEDS ORDERED: MORPHINE SULFATE 4 MG/ML SYRINGE IVP STA (14:03)
[2019-12-25 14:05] LABS: Basophils # (A) 0.1 k/uL (0-0.2); Basophils % (A) 1 %; Eosinophils # (A) 0.1 k/uL (0-0.7); Eosinophils % (A) 2 %; HCT 40.4 % (39.0-53.0); HGB 13.6 gm/dL (13.0-17.5); Lymphocytes # (A) 1.3 k/uL (1.0-4.8); Lymphocytes % (A) 19 %; MCH 32.2 pg (25.0-35.0); MCHC 33.6 g/dL (31.0-37.0); Mean Platelet Volume 6.3; Monocytes # (A) 0.5 k/uL (0-1.0); Monocytes % (A) 7 %; Neutrophils # (A) 4.6 k/uL (1.3-7.7); Neutrophils % (A) 69 %; Platelet Count 283 k/uL (150-450); RBC 4.21 m/uL (4.30-5.90); RDW 11.6 % (11.5-15.5); WBC 6.6 k/uL (3.8-10.6)
[2019-12-25 14:14] LABS: ALT 12 U/L (4-49); AST 22 U/L (17-59); African American GFR (CKD) >90 (>60 ml/min/1.73 sqM); Alkaline Phosphatase 78 U/L (38-126); Anion Gap 9 mmol/L; Blood Urea Nitrogen 5 mg/dL (9-20); Calcium 8.7 mg/dL (8.4-10.2); Carbon Dioxide 24 mmol/L (22-30); Chloride 101 mmol/L (98-107); Glucose 130 mg/dL (74-99); INR 0.9 (<1.2); Magnesium 1.8 mg/dL (1.6-2.3); Non-African American GFR(CKD) 86 (>60 ml/min/1.73 sqM); Partial Thromboplastin Time 25.1 sec (22.0-30.0); Potassium 3.7 mmol/L (3.5-5.1); Prothrombin Time 9.6 sec (9.0-12.0); Sodium 134 mmol/L (137-145); Total Bilirubin 0.4 mg/dL (0.2-1.3); Total Protein 6.8 g/dL (6.3-8.2)
--- NOTE | 2019-12-25 14:38 | XR ---
EXAMINATION TYPE: XR chest 2V DATE OF EXAM: 12/25/2019 COMPARISON: 09/20/2018 HISTORY: Chest pain TECHNIQUE: FINDINGS: Heart and mediastinum are normal. Lungs are clear. Diaphragm is normal. There are chest ginette ds. There is old healed lateral lower right rib fracture. IMPRESSION: No active cardiopulmonary disease. No change. Normal heart.
[2019-12-25] MEDS ORDERED: NITROGLYCERIN SL TABS 0.4 MG TAB SUBLINGUAL PRN (14:52)
[2019-12-25] MEDS: NITROGLYCERIN OINT 1 INCH/GM PACKET TOPICAL SCH (17:58)
[2019-12-25] MEDS: DORZOLAMIDE-TIMOLOL 2.23%/0.68 10ML BTL LEFT EYE SCH (20:06)
[2019-12-25] MEDS: BRIMONIDINE TARTRATE 0.2% DROPS 5 ML BTL LEFT EYE SCH (20:06)
[2019-12-25] MEDS: BUTALB/APAP/CAFF 50-325-40MG TAB PO PRN (20:08)
[2019-12-25] MEDS: SODIUM CHLORIDE TAB 1 GM TAB PO SCH (20:09)
[2019-12-25] MEDS: METOPROLOL TARTRATE 25 MG TAB PO SCH (20:09)
[2019-12-25] MEDS: PANTOPRAZOLE 40 MG TABLET PO SCH (20:09)
[2019-12-25] MEDS ORDERED: diazePAM 5 MG TAB PO SCH (21:00)
[2019-12-25] MEDS ORDERED: LATANOPROST 0.005% OPHTH DROPS 2.5 ML BTL LEFT EYE SCH (21:00)
[2019-12-25] MEDS: DICYCLOMINE 10 MG CAP PO SCH (21:55)
[2019-12-25] MEDS: GABAPENTIN 300 MG CAP PO SCH (21:55)
[2019-12-25] MEDS: ONDANSETRON ODT 4 MG TAB PO PRN (22:29)
[2019-12-26] MEDS: NITROGLYCERIN OINT 1 INCH/GM PACKET TOPICAL SCH ×3 (01:25→12:23)
[2019-12-26] MEDS: BUTALB/APAP/CAFF 50-325-40MG TAB PO PRN ×2 (01:28→08:37)
[2019-12-26 06:48] LABS: Cholesterol 165 mg/dL (<200); HDL Cholesterol 41 mg/dL (40-60); LDL Cholesterol,Calculated 86 mg/dL (0-99); Triglycerides 191 mg/dL (<150)
[2019-12-26] MEDS: BRIMONIDINE TARTRATE 0.2% DROPS 5 ML BTL LEFT EYE SCH (08:31)
[2019-12-26] MEDS: DICYCLOMINE 10 MG CAP PO SCH (08:32)
[2019-12-26] MEDS: DORZOLAMIDE-TIMOLOL 2.23%/0.68 10ML BTL LEFT EYE SCH (08:32)
[2019-12-26] MEDS: SODIUM CHLORIDE TAB 1 GM TAB PO SCH (08:33)
[2019-12-26] MEDS: PANTOPRAZOLE 40 MG TABLET PO SCH (08:33)
[2019-12-26] MEDS: GABAPENTIN 300 MG CAP PO SCH (08:33)
[2019-12-26 08:51] VITALS: BP 157/79; PULSE 86; RESP 16; TEMP 97.9
[2019-12-26] MEDS: ONDANSETRON ODT 4 MG TAB PO PRN (08:53)
[2019-12-26] MEDS ORDERED: ASPIRIN 325 MG TAB PO SCH (09:00)
[2019-12-26] MEDS ORDERED: CHOLECALCIFEROL 1,000 UNIT TAB PO SCH (09:00)
[2019-12-26] MEDS ORDERED: FUROSEMIDE 20 MG TAB PO SCH (09:00)
[2019-12-26] MEDS ORDERED: LOSARTAN 50 MG TAB PO SCH (09:00)
[2019-12-26] MEDS ORDERED: ESCITALOPRAM 10 MG TAB PO SCH (09:00)
[2019-12-26] MEDS ORDERED: POTASSIUM CHLORIDE ER 20 MEQ TAB.ER PO SCH (09:00)
--- NOTE | 2019-12-26 09:45 | P.CRDCN ---
History of Present Illness Consult date: 12/26/19 History of present illness: CHIEF COMPLAINT: Chest pain HISTORY OF PRESENT ILLNESS: This is a 69-year old male with a past medical history significant for coronary artery disease with previous stent placement, hypertension, hyperlipidemia, SVT with previous ablation, and esophageal stricture. Patient follows in the office with Dr. Goode. We have been asked to see the patient in consultation for chest pain. Patient reports he began feeling "lousy" on thursday with generalized aches, fatigue, and nausea. He reports he began throwing up on Thursday. Following a couple episodes of emesis, he began having left sided chest pain. The patient points to the epigastric region when asked where the pain was located. The pain did radiate down to his left arm. He denies shortness of breath. Patient states he sees Dr. Subramanian for history of esophageal strictures. He also reports he had stents placed over 20 years ago and had some GI symptoms at that time as well. He reports having another cath around [id number] and did not require any further stents at that time. He states shortly after that he underwent an ablation with Dr. Mcdaniel secondary to SVT. The patient currently denies chest pain or pressure. He denies shortness of breath. He denies any further episodes of nausea or vomiting. DIAGNOSTICS: EKG reveals sinus rhythm with no signs of acute ischemia Chest xray no active cardiopulmonary disease Laboratory data: WBC 6.6. Hemoglobin 13.6 platelet count 283. Sodium 134. Potassium 3.7. BUN 5. Creatinine 0.89. Magnesium 1.8. Troponin negative 3 Current home cardiac medications include simvastatin 40 mg daily, metoprolol 25 mg twice a day, losartan 100 mg daily, Lasix 20 mg daily REVIEW OF SYSTEMS: At the time of my exam: CONSTITUTIONAL: Denies fever or chills. HEENT: Denies blurred vision, vision changes, or eye pain. Denies hemoptysis CARDIOVASCULAR: Denies chest pain, orthopnea, PND or palpitations RESPIRATORY: No shortness of breath. GASTROINTESTINAL: Denies abdominal pain. Denies nausea or vomiting. HEMATOLOGIC: Denies bleeding disorders. GENITOURINARY: Denies any blood in urine. SKIN: Denies pruitis. Denies rash. PHYSICAL EXAM: VITAL SIGNS: Reviewed. GENERAL: Well-developed in no acute distress. HEENT: Head is normocephalic. Pupils are equal, round. Sclerae anicteric. Mucous membranes of the mouth are moist. Neck supple. No JVD or thyromegaly LUNGS: Respirations even and unlabored. Lungs essentially clear to auscultation bilaterally. HEART: Regular rate and rhythm. S1 and S2 heard. ABDOMEN: Soft. Nondistended. Nontender. EXTREMITIES: Normal range of motion. No clubbing or cyanosis. Peripheral pulses intact. No lower extremity edema NEUROLOGIC: Awake and alert. Oriented x 3. ASSESSMENT: Nausea and vomiting Chest pain, troponins negative 3 Coronary artery disease with previous PCI, unknown vessel, 20 years ago History of SVT with previous ablation Hypertension Hyperlipidemia History of esophageal stricture PLAN: An acute coronary event has been ruled out Resume home cardiac medications Obtain 2-D echo to assess cardiac structure and function Offered stress testing to patient. However, he declined and would prefer to be discharged and follow up with Dr. Goode outpatient Nurse practitioner note has been reviewed by physician. Signing provider agrees with the documented findings, assessment, and plan of care. Past Medical History Past Medical History: Coronary Artery Disease (CAD), Chest Pain / Angina, Eye Disorder, GERD/Reflux, Hyperlipidemia, Hypertension, Myocardial Infarction ([place]), Osteoarthritis (OA) Additional Past Medical History / Comment(s): NVD recently, Neck pain, SVT with ablation, duodenal ulcers, chronic duodenal stricture, bilateral glaucoma, sinusitis, migraines, anemia, esophagitis,hiatal hernia, chronic back pain, past fx ribs/sternum Last Myocardial Infarction Date:: 1999 History of Any Multi-Drug Resistant Organisms: None Reported Past Surgical History: Cardiac Ablation, Cholecystectomy, Heart Catheterization With Stent Additional Past Surgical History / Comment(s): stent right eye 03/2018, PCI with 3 stents, sinus surgery, cataracts bilaterally with lens implants, EGDs/colonoscopies, Past Anesthesia/Blood Transfusion Reactions: No Reported Reaction Additional Past Anesthesia/Blood Transfusion Reaction / Comment(s): Pt has had past multiple transfusions without reaction. Date of Last Stent Placement:: 1999 Past Psychological History: Anxiety Additional Psychological History / Comment(s): . Smoking Status: Former smoker Past Alcohol Use History: None Reported Additional Past Alcohol Use History / Comment(s): Patient was a smoker for only a few years in his 40s. No illicit drug use, no alcohol use. He lives at home with his . Past Drug Use History: None Reported - Past Family History Father Additional Family Medical History / Comment(s): Father at the age of 68yrs from a ruptured aortic aneurysm. Mother Additional Family Medical History / Comment(s): Mother lived into her 80's. Brother(s) Family Medical History: Cancer Additional Family Medical History / Comment(s): The patient had 3 brothers. One from colon cancer with metastatic disease to the brain. One brother at age 79 from a myocardial infarction. He has 1 brother that is alive with history of skin cancer and diabetes. Sister(s) Additional Family Medical History / Comment(s): The patient is a total of 3 sisters. One in her 80s from myocardial infarction. One sister at age 58 from coronary artery disease and also had a valvular disorder. Patient has one sister alive with diabetes and multiple other medical conditions. Patient has 2 sons and 1 daughter with no major medical problems. Medications and Allergies Home Medications Medication Instructions Recorded Confirmed Type Simvastatin [Zocor] 40 mg PO HS 07/12/13 12/25/19 History Pantoprazole Sodium 40 mg PO BID 06/26/16 12/25/19 History Dicyclomine [Bentyl] 10 mg PO TID 06/04/17 12/25/19 History Dorzolamide-Timol 2.23%/0.68% 1 drop LEFT EYE BID 01/27/18 12/25/19 History [Cosopt] Sodium Chloride Tab 1 gm PO BID 01/27/18 12/25/19 History Gabapentin [Neurontin] 300 mg PO TID 04/26/18 12/25/19 History Latanoprost [Xalatan 0.005%] 1 drop LEFT EYE HS 09/20/18 12/25/19 History Losartan Potassium 100 mg PO DAILY 09/20/18 12/25/19 History Metoprolol Tartrate [Lopressor] 25 mg PO BID 09/20/18 12/25/19 History Ondansetron [Zofran ODT] 4 mg PO BID PRN 09/20/18 12/25/19 History Butalb/APAP/Caff 50-325-40Mg 2 tab PO Q6H PRN 10/06/18 12/25/19 History [Fioricet 50-325-40] Escitalopram [Lexapro] 10 mg PO DAILY 10/06/18 12/25/19 History Brimonidine Tartrate [Alphagan P 1 drop LEFT EYE BID 12/25/19 12/25/19 History 0.2% Ophth Soln] Cholecalciferol [Vitamin D3 (25 2,000 unit PO DAILY 12/25/19 12/25/19 History Mcg = 1000 Iu)] Diazepam [Valium] 5 mg PO HS 12/25/19 12/25/19 History Furosemide [Lasix] 20 mg PO DAILY 12/25/19 12/25/19 History Potassium Chloride ER [K-Dur 20] 20 meq PO DAILY 12/25/19 12/25/19 History Tadalafil [Cialis] 10 mg PO DAILY 12/25/19 12/25/19 History Testosterone Cypionate 100 mg IM Q14D 12/25/19 12/25/19 History [Depo-Testosterone] Allergies Allergy/AdvReac Type Severity Reaction Status Date / Time atorvastatin [From Lipitor] AdvReac MUSCLE Verified 12/25/19 16:16 CRAMPS hydrochlorothiazide AdvReac Nausea & Verified 12/25/19 16:16 Vomiting Physical Exam Vitals: Vital Signs Temp Pulse Pulse Resp BP BP Pulse Ox 12/26/19 08:49 97.9 F 86 16 157/79 97 12/26/19 04:35 98.2 F 68 17 139/75 98 12/25/19 19:45 97.9 F 98 18 118/70 100 12/25/19 15:11 98 F 82 16 115/68 96 12/25/19 15:00 97.8 F 81 16 114/81 96 12/25/19 14:30 78 16 114/81 94 L 12/25/19 14:02 92 105/67 12/25/19 13:28 98.5 F 92 20 144/79 99 Intake and Output 12/25/19 12/26/19 12/26/19 22:59 06:59 14:59 Other: Voiding Method Toilet Toilet Toilet # Voids 1 1 Weight 88.451 kg Results 12/25/19 13:43 12/25/19 13:43 Cardiac Enzymes 12/25/19 12/25/19 12/25/19 Range/Units 13:43 13:43 16:48 AST 22 (17-59) U/L Troponin I <0.012 <0.012 (0.000-0.034) ng/mL 12/25/19 Range/Units 20:06 AST (17-59) U/L Troponin I <0.012 (0.000-0.034) ng/mL Coagulation 12/25/19 Range/Units 13:43 PT 9.6 (9.0-12.0) sec APTT 25.1 (22.0-30.0) sec Lipids 12/26/19 Range/Units 06:22 Triglycerides 191 H (<150) mg/dL Cholesterol 165 (<200) mg/dL HDL Cholesterol 41 (40-60) mg/dL CBC 12/25/19 Range/Units 13:43 WBC 6.6 (3.8-10.6) k/uL RBC 4.21 L (4.30-5.90) m/uL Hgb 13.6 (13.0-17.5) gm/dL Hct 40.4 (39.0-53.0) % Plt Count 283 (150-450) k/uL Comprehensive Metabolic Panel 12/25/19 Range/Units 13:43 Sodium 134 L (137-145) mmol/L Potassium 3.7 (3.5-5.1) mmol/L Chloride 101 (98-107) mmol/L Carbon Dioxide 24 (22-30) mmol/L BUN 5 L (9-20) mg/dL Creatinine 0.89 (0.66-1.25) mg/dL Glucose 130 H (74-99) mg/dL Calcium 8.7 (8.4-10.2) mg/dL AST 22 (17-59) U/L ALT 12 (4-49) U/L Alkaline Phosphatase 78 (38-126) U/L Total Protein 6.8 (6.3-8.2) g/dL Albumin 4.0 (3.5-5.0) g/dL Current Medications Generic Name Dose Route Start Last Admin Trade Name Freq PRN Reason Stop Dose Admin Acetaminophen/Butalbital/Caffeine 2 each 12/25/19 16:57 12/26/19 08:37 Butalb/Apap/Caff 50-325-40mg Tab PO 2 each Q6H PRN Administration Migraine Headache Aspirin 325 mg 12/26/19 09:00 12/26/19 08:31 Aspirin 325 Mg Tab PO 325 mg DAILY DANIEL Administration Brimonidine Tartrate 1 drops 12/25/19 21:00 12/26/19 08:31 Brimonidine Tartrate 0.2% Drops 5 Ml Btl LEFT EYE 1 drops BID DANIEL Administration Cholecalciferol 2,000 unit 12/26/19 09:00 12/26/19 08:31 Cholecalciferol 1,000 Unit Tab PO 2,000 unit DAILY DANIEL Administration Diazepam 5 mg 12/25/19 21:00 12/25/19 21:55 Diazepam 5 Mg Tab PO 5 mg HS DANIEL Administration Dicyclomine HCl 10 mg 12/25/19 22:00 12/26/19 08:32 Dicyclomine 10 Mg Cap PO 10 mg TID DANIEL Administration Dorzolamide/Timolol 1 drops 12/25/19 21:00 12/26/19 08:32 Dorzolamide-Timolol 2.23%/0.68 10ml Btl LEFT EYE 1 drops BID DANIEL Administration Escitalopram Oxalate 10 mg 12/26/19 09:00 12/26/19 08:32 Escitalopram 10 Mg Tab PO 10 mg DAILY DANIEL Administration Furosemide 20 mg 12/26/19 09:00 12/26/19 08:32 Furosemide 20 Mg Tab PO 20 mg DAILY DANIEL Administration Gabapentin 300 mg 12/25/19 22:00 12/26/19 08:33 Gabapentin 300 Mg Cap PO 300 mg TID DANIEL Administration Latanoprost 1 drops 12/25/19 21:00 12/25/19 20:07 Latanoprost 0.005% Ophth Drops 2.5 Ml Btl LEFT EYE 1 drops HS DANIEL Administration Losartan Potassium 100 mg 12/26/19 09:00 12/26/19 08:33 Losartan 50 Mg Tab PO 100 mg DAILY [facility] Administration Metoprolol Tartrate 25 mg 12/25/19 21:00 12/25/19 20:09 Metoprolol Tartrate 25 Mg Tab PO 25 mg BID [facility] Administration Nitroglycerin 0.4 mg 12/25/19 14:52 Nitroglycerin Sl Tabs 0.4 Mg Tab SUBLINGUAL Q5M PRN Chest Pain Nitroglycerin 1 inch 12/25/19 18:00 12/26/19 05:55 Nitroglycerin Oint 1 Inch/Gm Packet TOPICAL Not Given Q6HR [facility] Ondansetron HCl 4 mg 10/25/20 16:57 12/26/19 08:53 Ondansetron Odt 4 Mg Tab PO 4 mg BID PRN Administration Nausea Pantoprazole Sodium 40 mg 12/25/19 21:00 12/26/19 08:33 Pantoprazole 40 Mg Tablet PO 40 mg BID DANIEL Administration Potassium Chloride 20 meq 12/26/19 09:00 12/26/19 08:33 Potassium Chloride Er 20 Meq Tab.Er PO 20 meq DAILY DANIEL Administration Sodium Chloride 10 ml 12/25/19 21:00 12/26/19 08:39 Sodium Chloride 0.9% Flush 10 Ml Syringe IV 10 ml BID DANIEL Administration Sodium Chloride 1 gm 12/25/19 21:00 12/26/19 08:33 Sodium Chloride Tab 1 Gm Tab PO 1 gm BID DANIEL Administration Intake and Output 12/25/19 12/26/19 12/26/19 22:59 06:59 14:59 Other: Voiding Method Toilet Toilet Toilet # Voids 1 1 Weight 88.451 kg 12/25/19 13:43 12/25/19 13:43
[2019-12-26] MEDS: METOPROLOL TARTRATE 25 MG TAB PO SCH (09:48)
--- NOTE | 2019-12-26 11:34 | ECHOF ---
Referral Reason:chest pain MEASUREMENTS -------- HEIGHT: 180.3 cm WEIGHT: 88.5 kg BP: 139/75 RVIDd: 2.8 cm (< 3.3) IVSd: 1.5 cm (0.6 - 1.1) LVIDd: 3.8 cm (3.9 - 5.3) LVPWd: 1.5 cm (0.6 - 1.1) IVSs: 2.3 cm LVIDs: 2.3 cm LVPWs: 2.4 cm Ao Diam: 3.7 cm (2.0 - 3.7) AV Cusp: 2.7 cm (1.5 - 2.6) LA Diam: 3.5 cm (2.7 - 3.8) MV EXCURSION: 18.134 mm (> 18.000) MV EF SLOPE: 45 mm/s (70 - 150) EPSS: 0.5 cm MV E Tab: 0.42 m/s MV DecT: 172 ms MV A Tab: 0.69 m/s MV E/A Ratio: 0.60 AR PHT: 1319 ms RAP: 5.00 mmHg RVSP: 28.13 mmHg FINDINGS -------- This was a technically difficult study with suboptimal views. The left ventricular size is normal. There is mild concentric left ventricular hypertrophy. Overa ll left ventricular systolic function is normal with, an EF between 55 - 60 %. The right ventricle is normal in size. The left atrial size is normal. The right atrial size is normal. Lumason used The aortic valve is trileaflet and appears structurally normal. Trace amount of aortic regurgitatio n. The mitral valve is normal. There is trace mitral regurgitation. The tricuspid valve appears structurally normal. Trace tricuspid regurgitation present. Right daniele tricular systolic pressure is normal at < 35 mmHg. There is no pulmonic regurgitation present. The aortic root size is normal. IVC Not well visulized. There is no pericardial effusion. CONCLUSIONS -------- 1. This was a technically difficult study with suboptimal views. 2. The left ventricular size is normal. 3. There is mild concentric left ventricular hypertrophy. 4. Overall left ventricular systolic function is normal with, an EF between 55 - 60 %. 5. Trace amount of aortic regurgitation. 6. There is trace mitral regurgitation. 7. Trace tricuspid regurgitation present. 8. There is no pericardial effusion. BRAKES INSPECTOR: Vanessa Bloom RDCS
--- NOTE | 2019-12-26 15:26 | P.HPIM ---
History of Present Illness H&P Date: 12/26/19 HISTORY AND PHYSICAL AND DISCHARGE SUMMARY: HISTORY OF PRESENT ILLNESS This is a 67-year-old male patient of Dr. Castaneda and Dr. SELENA Goode with past medical history of coronary artery disease status post stenting, SVT status post ablation, steroid injections of the cervical spine along with radiofrequency ablation, history of gastric ulcers, chronic duodenal stricture EGD in 2017 suggested stable duodenal stricture. Patient has a history of seiz ure activity in 2018 admission secondary to hyponatremia at 112. Patient complains of not feeling well for a day or so and then developed vomiting yesterday didn't eat at all on Thursday. Also developed chest pressure the lower sternal area that was similar to the one he had with previous myocardial infarction approximately 20 years ago. Pain was a pressure type pain came on when he was resting. His nausea and vomiting became worse throughout the day. He did have some lightheadedness. He denies any chills. No sweats. No diarrhea. Patient also follows with Dr. Monik Castaneda for hyponatremia and is on sodium tablets. Patient presents to [facility] emergency center for evaluation. EKG was a sinus rhythm with no acute ST changes. Chest x-ray showed no active cardiopulmonary disease. WBC 6.6. Hemoglobin 13.6 platelet count 283. Sodium 134. Potassium 3.7. BUN 5. Creatinine 0.89. Magnesium 1.8. Troponin negative 3. She was placed in the observation unit and cardiology consult requested. Patient was evaluated by cardiology and acute coronary syndrome was ruled out. Echocardiogram reveals EF of 55-60%, trace aortic regurgitation, trace mitral regurgitation, trace tricuspid regurgitation. Patient was cleared for discharge home. Patient was discharged in stable condition. REVIEW OF SYSTEMS Constitutional: No fever, no chills, no night sweats. No weight change. No weakness, fatigue or lethargy. No daytime sleepiness. EENT: No headache. No blurred vision or double vision, no loss of vision. No loss of Hearing, no ringing in the ears, no dizziness. No nasal drainage or congestion. No epistaxis. No sore throat. Lungs: No shortness of breath, cough, no sputum production. No wheezing. Cardiovascular: Reports chest pain, no lower extremity edema. No palpitations. No paroxysmal nocturnal dyspnea. No orthopnea. No lightheadedness or dizziness. No syncopal episodes. Abdominal: No abdominal pain. Reports nausea, reports vomiting. No diarrhea. No constipation. No bloody or tarry stools.. No loss of appetite. Genitourinary: No dysuria, increased frequency, urgency. No urinary retention. Musculoskeletal: No myalgias. No muscle weakness, no gait dysfunction, no frequent falls. No back pain. No neck pain. Integumentary: No wounds, no lesions. No rash or pruritus. No unusual bruising. No change in hair or nails. Neurologic: No aphasia. No facial droop. No change in mentation. No head injury. No headache. No paralysis. No paresthesia. Psychiatric: No depression. No anxiety. No mood swings. Endocrine: No abnormal blood sugars. No weight change. No excessive sweating or thirst. No cold intolerance. SOCIAL HISTORY Patient was a smoker for only a few years in his 40s. No illicit drug use, no alcohol use. He lives at home with his . He is retired was a [employer] for 33 years. He does not have a CPAP, nebulizer, O2. FAMILY HISTORY Father at the age of 69 from a ruptured abdominal aortic aneurysm. Mother lived into her 80's without any major medical problems. he patient had 3 brothers. One from colon cancer with metastatic disease to the brain. One brother at age 79 from a myocardial infarction. He has 1 brother that is alive with history of skin cancer and diabetes. Patient has a total of 3 sisters. One in her 80s from myocardial infarction. One sister at age 58 from coronary artery disease and also had a valvular disorder. Patient has one sister alive with diabetes and multiple other medical conditions. Patient has 2 sons and 2 daughters. One daughter was murdered. Other children have no major medical problems. PHYSICAL EXAMINATION Gen: This is is a 69-year-old male. Patient is resting in bed and appears comfortable and in no acute distress. HEENT: Head is atraumatic, normocephalic. Pupils equal, round. Sclerae is anicteric. NECK: Supple. No JVD. No lymphadenopathy. No thyromegaly. LUNGS: Clear to auscultation. No wheezes or rhonchi. No intercostal retractions. HEART: Regular rate and rhythm. No murmur. ABDOMEN: Soft. Bowel sounds are present. No masses. No tenderness. EXTREMITIES: No pedal edema. No calf tenderness. NEUROLOGICAL: Patient is awake, alert and oriented x3. Cranial nerves 2 through 12 are grossly intact. ASSESSMENT AND PLAN 1. Intractable nausea and vomiting, subsequently resolved. 2. Chest pain. Cardiology consult appreciated. Echocardiogram as above. No change in medications. 3. Hyponatremia, chronic. 4. Chronic migraine headaches. 5. Chronic nausea and vomiting. 6. Hypertension. 7. Hyperlipidemia. Patient placed as an observation status. Discharge plan: Home. Discharge Medication List Simvastatin [Zocor] 40 mg PO HS 07/12/13 [History] Pantoprazole Sodium 40 mg PO BID 06/26/16 [History] Dicyclomine [Bentyl] 10 mg PO TID 06/04/17 [History] Dorzolamide-Timol 2.23%/0.68% [Cosopt] 1 drop LEFT EYE BID 01/27/18 [History] Sodium Chloride Tab 1 gm PO BID 01/27/18 [History] Gabapentin [Neurontin] 300 mg PO TID 04/26/18 [History] Latanoprost [Xalatan 0.005%] 1 drop LEFT EYE HS 09/20/18 [History] Losartan Potassium 100 mg PO DAILY 09/20/18 [History] Metoprolol Tartrate [Lopressor] 25 mg PO BID 09/20/18 [History] Ondansetron [Zofran ODT] 4 mg PO BID PRN 09/20/18 [History] Butalb/APAP/Caff 50-325-40Mg [Fioricet 50-325-40] 2 tab PO Q6H PRN 10/06/18 [History] Escitalopram [Lexapro] 10 mg PO DAILY 10/06/18 [History] Brimonidine Tartrate [Alphagan P 0.2% Oph Soln] 1 drop LEFT EYE BID 12/25/19 [History] Cholecalciferol [Vitamin D3 (25 Mcg = 1000 Iu)] 2,000 unit PO DAILY 12/25/19 [History] Diazepam [Valium] 5 mg PO HS 12/25/19 [History] Furosemide [Lasix] 20 mg PO DAILY 12/25/19 [History] Potassium Chloride ER [K-Dur 20] 20 meq PO DAILY 12/25/19 [History] Tadalafil [Cialis] 10 mg PO DAILY 12/25/19 [History] Testosterone Cypionate [Depo-Testosterone] 100 mg IM Q14D 12/25/19 [History] Impression and plan of care have been directed as dictated by the signing physician. Zahra Lainez nurse practitioner acting as scribe for signing physician. Past Medical History Past Medical History: Coronary Artery Disease (CAD), Chest Pain / Angina, Eye Disorder, GERD/Reflux, Hyperlipidemia, Hypertension, Myocardial Infarction ([place]), Osteoarthritis (OA) Additional Past Medical History / Comment(s): NVD recently, Neck pain, SVT with ablation, duodenal ulcers, chronic duodenal stricture, bilateral glaucoma, sinusitis, migraines, anemia, esophagitis,hiatal hernia, chronic back pain, past fx ribs/sternum Last Myocardial Infarction Date:: 1999 History of Any Multi-Drug Resistant Organisms: None Reported Past Surgical History: Cardiac Ablation, Cholecystectomy, Heart Catheterization With Stent Additional Past Surgical History / Comment(s): stent right eye 03/2018, PCI with 3 stents, sinus surgery, cataracts bilaterally with lens implants, EGDs/colonoscopies, Past Anesthesia/Blood Transfusion Reactions: No Reported Reaction Additional Past Anesthesia/Blood Transfusion Reaction / Comment(s): Pt has had past multiple transfusions without reaction. Date of Last Stent Placement:: 1999 Past Psychological History: Anxiety Additional Psychological History / Comment(s): . Smoking Status: Former smoker Past Alcohol Use History: None Reported Additional Past Alcohol Use History / Comment(s): Patient was a smoker for only a few years in his 40s. No illicit drug use, no alcohol use. He lives at home with his . Past Drug Use History: None Reported - Past Family History Father Additional Family Medical History / Comment(s): Father at the age of 68yrs from a ruptured aortic aneurysm. Mother Additional Family Medical History / Comment(s): Mother lived into her 80's. Brother(s) Family Medical History: Cancer Additional Family Medical History / Comment(s): The patient had 3 brothers. One from colon cancer with metastatic disease to the brain. One brother at age 79 from a myocardial infarction. He has 1 brother that is alive with history of skin cancer and diabetes. Sister(s) Additional Family Medical History / Comment(s): The patient is a total of 3 sisters. One in her 80s from myocardial infarction. One sister at age 58 from coronary artery disease and also had a valvular disorder. Patient has one sister alive with diabetes and multiple other medical conditions. Patient has 2 sons and 1 daughter with no major medical problems. Medications and Allergies Home Medications Medication Instructions Recorded Confirmed Type Simvastatin [Zocor] 40 mg PO HS 07/12/13 12/25/19 History Pantoprazole Sodium 40 mg PO BID 06/26/16 12/25/19 History Dicyclomine [Bentyl] 10 mg PO TID 06/04/17 12/25/19 History Dorzolamide-Timol 2.23%/0.68% 1 drop LEFT EYE BID 01/27/18 12/25/19 History [Cosopt] Sodium Chloride Tab 1 gm PO BID 01/27/18 12/25/19 History Gabapentin [Neurontin] 300 mg PO TID 04/26/18 12/25/19 History Latanoprost [Xalatan 0.005%] 1 drop LEFT EYE HS 09/20/18 12/25/19 History Losartan Potassium 100 mg PO DAILY 09/20/18 12/25/19 History Metoprolol Tartrate [Lopressor] 25 mg PO BID 09/20/18 12/25/19 History Ondansetron [Zofran ODT] 4 mg PO BID PRN 09/20/18 12/25/19 History Butalb/APAP/Caff 50-325-40Mg 2 tab PO Q6H PRN 10/06/18 12/25/19 History [Fioricet 50-325-40] Escitalopram [Lexapro] 10 mg PO DAILY 10/06/18 12/25/19 History Brimonidine Tartrate [Alphagan P 1 drop LEFT EYE BID 12/25/19 12/25/19 History 0.2% Ophth Soln] Cholecalciferol [Vitamin D3 (25 2,000 unit PO DAILY 12/25/19 12/25/19 History Mcg = 1000 Iu)] Diazepam [Valium] 5 mg PO HS 12/25/19 12/25/19 History Furosemide [Lasix] 20 mg PO DAILY 12/25/19 12/25/19 History Potassium Chloride ER [K-Dur 20] 20 meq PO DAILY 12/25/19 12/25/19 History Tadalafil [Cialis] 10 mg PO DAILY 12/25/19 12/25/19 History Testosterone Cypionate 100 mg IM Q14D 12/25/19 12/25/19 History [Depo-Testosterone] Allergies Allergy/AdvReac Type Severity Reaction Status Date / Time atorvastatin [From Lipitor] AdvReac MUSCLE Verified 12/25/19 16:16 CRAMPS hydrochlorothiazide AdvReac Nausea & Verified 12/25/19 16:16 Vomiting Physical Exam Vitals: Vital Signs Temp Pulse Pulse Resp BP BP Pulse Ox 12/26/19 04:35 98.2 F 68 17 139/75 98 12/25/19 19:45 97.9 F 98 18 118/70 100 12/25/19 15:11 98 F 82 16 115/68 96 12/25/19 15:00 97.8 F 81 16 114/81 96 12/25/19 14:30 78 16 114/81 94 L 12/25/19 14:02 92 105/67 12/25/19 13:28 98.5 F 92 20 144/79 99 Intake and Output 12/25/19 12/26/19 12/26/19 22:59 06:59 14:59 Other: Voiding Method Toilet Toilet # Voids 1 1 Weight 88.451 kg Results CBC & Chem 7: 12/25/19 13:43 12/25/19 13:43 Labs: Abnormal Lab Results - Last 24 Hours (Table) 12/25/19 12/25/19 12/26/19 Range/Units 13:43 13:43 06:22 RBC 4.21 L (4.30-5.90) m/uL Sodium 134 L (137-145) mmol/L BUN 5 L (9-20) mg/dL Glucose 130 H (74-99) mg/dL Triglycerides 191 H (<150) mg/dL Thrombosis Risk Factor Assmnt - Choose All That Apply Each Factor Represents 1 point: Obesity (BMI >25) Each Risk Factor Represents 2 Points: Age 61-74 years Thrombosis Risk Factor Assessment Total Risk Factor Score: 3 Thrombosis Risk Factor Assessment Level: Moderate Risk
== END 2019-12-26 13:50 | disposition home or self-care (01) ==
LOC: EC 13:27 → 3NCARDOBS 14:52
PROVIDERS: ADMIT Internal Medicine; ATTEND Internal Medicine
DX: R07.9 Chest pain, unspecified (principal); I25.10 Atherosclerotic heart disease of native coronary artery without angina pectoris; E78.5 Hyperlipidemia, unspecified; E87.1 Hypo-osmolality and hyponatremia; F41.9 Anxiety disorder, unspecified; G43.909 Migraine, unspecified, not intractable, without status migrainosus; I10 Essential (primary) hypertension; I25.2 Old myocardial infarction; I47.1 Supraventricular tachycardia; Z79.82 Long term (current) use of aspirin; Z79.899 Other long term (current) drug therapy; Z80.0 Family history of malignant neoplasm of digestive organs; Z82.49 Family history of ischemic heart disease and other diseases of the circulatory system; Z83.3 Family history of diabetes mellitus; Z87.11 Personal history of peptic ulcer disease; Z87.891 Personal history of nicotine dependence; Z95.5 Presence of coronary angioplasty implant and graft; Z96.1 Presence of intraocular lens
CPT/HCPCS: 93005 ×2; 96374; 96375; 99285; 36415; 80061; 80053; 83735; 84484; 85025; 85610; 85730; 71046; G0378 ×2; C8929; J2270; J2765; Q9950; 93306

== ENCOUNTER 2019-12-28 10:36 | Observation (INO) | payer MEDICARE ==
[2019-12-28 10:40] VITALS: RESP 18
[2019-12-28] MEDS ORDERED: SODIUM CHLORIDE 0.9% 500 ML 500 ML IV STA (10:57)
--- NOTE | 2019-12-28 11:12 | ED ---
General Adult HPI - General Chief complaint: Recheck/Abnormal Lab/Rx Stated complaint: Facial Numbness Time Seen by Provider: 12/28/19 10:42 Source: patient, RN notes reviewed, old records reviewed Mode of arrival: wheelchair Limitations: no limitations - History of Present Illness Initial comments: 69year-old male presents for evaluation of several complaints including epigastric pain which she believes is related to his known esophageal stricture. Second complaint of numbness and tingling around his mouth and tongue and both hands. Patient states he woke with these symptoms at 8 AM. He denies recent medication changes. He was recently evaluated at this hospital for an episode of chest pain and his workup was found to be normal. He does have some pain with swallowing as well as sore throat. and has been unable to eat or drink secondary to his pain and difficulty swallowing. He has had previous endoscopy. States the numbness is perioral, both sides of his face, both hands. He denies any focal weakness. - Related Data Home Medications Medication Instructions Recorded Confirmed Simvastatin [Zocor] 40 mg PO HS 07/12/13 12/28/19 Pantoprazole Sodium 40 mg PO BID 06/26/16 12/28/19 Dicyclomine [Bentyl] 10 mg PO TID 06/04/17 12/28/19 Dorzolamide-Timol 2.23%/0.68% 1 drop LEFT EYE BID 01/27/18 12/28/19 [Cosopt] Sodium Chloride Tab 1 gm PO BID 01/27/18 12/28/19 Gabapentin [Neurontin] 300 mg PO TID 04/26/18 12/28/19 Latanoprost [Xalatan 0.005%] 1 drop LEFT EYE HS 09/20/18 12/28/19 Losartan Potassium 100 mg PO DAILY 09/20/18 12/28/19 Metoprolol Tartrate [Lopressor] 25 mg PO BID 09/20/18 12/28/19 Ondansetron [Zofran ODT] 4 mg PO BID PRN 09/20/18 12/28/19 Butalb/APAP/Caff 50-325-40Mg 2 tab PO Q6H PRN 10/06/18 12/28/19 [Fioricet 50-325-40] Escitalopram [Lexapro] 10 mg PO DAILY 10/06/18 12/28/19 Brimonidine Tartrate [Alphagan P 1 drop LEFT EYE BID 12/25/19 12/28/19 0.2% Ophth Soln] Cholecalciferol [Vitamin D3 (25 2,000 unit PO DAILY 12/25/19 12/28/19 Mcg = 1000 Iu)] Diazepam [Valium] 5 mg PO HS 12/25/19 12/28/19 Furosemide [Lasix] 20 mg PO DAILY 12/25/19 12/28/19 Potassium Chloride ER [K-Dur 20] 20 meq PO DAILY 12/25/19 12/28/19 Tadalafil [Cialis] 10 mg PO DAILY 12/25/19 12/28/19 Testosterone Cypionate 100 mg IM Q14D 12/25/19 12/28/19 [Depo-Testosterone] Acetaminophen Tab [Tylenol] 650 mg PO Q4H PRN 12/28/19 12/28/19 Allergies Allergy/AdvReac Type Severity Reaction Status Date / Time atorvastatin [From Lipitor] AdvReac MUSCLE Verified 12/28/19 11:31 CRAMPS hydrochlorothiazide AdvReac Nausea & Verified 12/28/19 11:31 Vomiting Review of Systems ROS Statement: Those systems with pertinent positive or pertinent negative responses have been documented in the HPI. ROS Other: All systems not noted in ROS Statement are negative. Past Medical History Past Medical History: Coronary Artery Disease (CAD), Chest Pain / Angina, Eye Disorder, GERD/Reflux, Hyperlipidemia, Hypertension, Myocardial Infarction ([place]), Osteoarthritis (OA) Additional Past Medical History / Comment(s): NVD recently, Neck pain, SVT with ablation, duodenal ulcers, chronic duodenal stricture, bilateral glaucoma, sinusitis, migraines, anemia, esophagitis,hiatal hernia, chronic back pain, past fx ribs/sternum Last Myocardial Infarction Date:: 1999 History of Any Multi-Drug Resistant Organisms: None Reported Past Surgical History: Cardiac Ablation, Cholecystectomy, Heart Catheterization With Stent Additional Past Surgical History / Comment(s): stent right eye 03/2018, PCI with 3 stents, sinus surgery, cataracts bilaterally with lens implants, EGDs/colonoscopies, Past Anesthesia/Blood Transfusion Reactions: No Reported Reaction Additional Past Anesthesia/Blood Transfusion Reaction / Comment(s): Pt has had past multiple transfusions without reaction. Date of Last Stent Placement:: 1999 Past Psychological History: Anxiety Smoking Status: Former smoker Past Alcohol Use History: None Reported Past Drug Use History: None Reported - Past Family History Father Additional Family Medical History / Comment(s): Father at the age of 68yrs from a ruptured aortic aneurysm. Mother Additional Family Medical History / Comment(s): Mother lived into her 80's. Brother(s) Family Medical History: Cancer Additional Family Medical History / Comment(s): The patient had 3 brothers. One from colon cancer with metastatic disease to the brain. One brother at age 79 from a myocardial infarction. He has 1 brother that is alive with history of skin cancer and diabetes. Sister(s) Additional Family Medical History / Comment(s): The patient is a total of 3 sisters. One in her 80s from myocardial infarction. One sister at age 58 from coronary artery disease and also had a valvular disorder. Patient h as one sister alive with diabetes and multiple other medical conditions. Patient has 2 sons and 1 daughter with no major medical problems. General Exam Limitations: no limitations General appearance: alert, in no apparent distress Head exam: Present: atraumatic, normocephalic Eye exam: Present: normal appearance, PERRL ENT exam: Present: normal exam, normal oropharynx, mucous membranes moist Neck exam: Present: normal inspection. Absent: tenderness, meningismus Respiratory exam: Present: normal lung sounds bilaterally. Absent: respiratory distress, wheezes, rales Cardiovascular Exam: Present: regular rate, normal rhythm GI/Abdominal exam: Present: soft. Absent: distended, tenderness, guarding, rebound Extremities exam: Present: normal inspection, normal capillary refill. Absent: pedal edema Neurological exam: Present: alert, oriented X3, CN II-XII intact. Absent: motor sensory deficit Psychiatric exam: Present: normal affect, normal mood Skin exam: Present: warm, dry, intact. Absent: cyanosis, diaphoretic Course Vital Signs 12/28/19 10:37 Temperature 98 F Pulse Rate 80 Respiratory 18 Rate Blood Pressure 148/77 O2 Sat by Pulse 98 Oximetry EKG Findings - EKG Comments: EKG Findings:: EKG: Sinus rhythm with frequent PVC rate of 81, MT interval 192, QRS duration 86, QTC 427, no ST segment elevation. Medical Decision Making - Medical Decision Making 69-year-old male with epigastric pain, difficulty swallowing. Patient was admitted to the hospital for chest pain rule out within the past one week this was found to be normal. He is unable to eat or drink secondary to his pain. He did develop some periorbital numbness as well as bilateral hand numbness. He has no focal motor weakness. His workup includes head CT which is negative for skull hemorrhage, CT of soft tissue neck which is ordered secondary to foreign body sensation and difficulty swallowing. He has a normal CBC, normal CMP, negative troponin. He is given morphine and protonic she will be admitted with GI on consult for his epigastric pain and known esophageal stricture. Case discussed with Dr. Armando who will admit. - Lab Data Result diagrams: 12/28/19 11:04 12/28/19 11:04 Lab Results 12/28/19 12/28/19 12/28/19 Range/Units 11:04 11:04 11:04 WBC 7.6 (3.8-10.6) k/uL RBC 4.38 (4.30-5.90) m/uL Hgb 14.1 (13.0-17.5) gm/dL Hct 42.4 (39.0-53.0) % MCV 96.8 (80.0-100.0) fL MCH 32.3 (25.0-35.0) pg MCHC 33.4 (31.0-37.0) g/dL RDW 11.9 (11.5-15.5) % Plt Count 347 (150-450) k/uL Neutrophils % 61 % Lymphocytes % 25 % Monocytes % 8 % Eosinophils % 3 % Basophils % 1 % Neutrophils # 4.7 (1.3-7.7) k/uL Lymphocytes # 1.9 (1.0-4.8) k/uL Monocytes # 0.6 (0-1.0) k/uL Eosinophils # 0.2 (0-0.7) k/uL Basophils # 0.1 (0-0.2) k/uL PT 9.6 (9.0-12.0) sec INR 0.9 (<1.2) APTT 25.6 (22.0-30.0) sec Sodium 139 (137-145) mmol/L Potassium 3.7 (3.5-5.1) mmol/L Chloride 106 (98-107) mmol/L Carbon Dioxide 24 (22-30) mmol/L Anion Gap 9 mmol/L BUN 3 L (9-20) mg/dL Creatinine 0.90 (0.66-1.25) mg/dL Est GFR (CKD-EPI)AfAm >90 (>60 ml/min/1.73 sqM) Est GFR (CKD-EPI)NonAf 86 (>60 ml/min/1.73 sqM) Glucose 161 H (74-99) mg/dL Calcium 9.0 (8.4-10.2) mg/dL Magnesium 2.0 (1.6-2.3) mg/dL Total Bilirubin 0.3 (0.2-1.3) mg/dL AST 25 (17-59) U/L ALT 12 (4-49) U/L Alkaline Phosphatase 81 (38-126) U/L Troponin I (0.000-0.034) ng/mL Total Protein 7.4 (6.3-8.2) g/dL Albumin 4.3 (3.5-5.0) g/dL 12/28/19 Range/Units 11:04 WBC (3.8-10.6) k/uL RBC (4.30-5.90) m/uL Hgb (13.0-17.5) gm/dL Hct (39.0-53.0) % MCV (80.0-100.0) fL MCH (25.0-35.0) pg MCHC (31.0-37.0) g/dL RDW (11.5-15.5) % Plt Count (150-450) k/uL Neutrophils % % Lymphocytes % % Monocytes % % Eosinophils % % Basophils % % Neutrophils # (1.3-7.7) k/uL Lymphocytes # (1.0-4.8) k/uL Monocytes # (0-1.0) k/uL Eosinophils # (0-0.7) k/uL Basophils # (0-0.2) k/uL PT (9.0-12.0) sec INR (<1.2) APTT (22.0-30.0) sec Sodium (137-145) mmol/L Potassium (3.5-5.1) mmol/L Chloride (98-107) mmol/L Carbon Dioxide (22-30) mmol/L Anion Gap mmol/L BUN (9-20) mg/dL Creatinine (0.66-1.25) mg/dL Est GFR (CKD-EPI)AfAm (>60 ml/min/1.73 sqM) Est GFR (CKD-EPI)NonAf (>60 ml/min/1.73 sqM) Glucose (74-99) mg/dL Calcium (8.4-10.2) mg/dL Magnesium (1.6-2.3) mg/dL Total Bilirubin (0.2-1.3) mg/dL AST (17-59) U/L ALT (4-49) U/L Alkaline Phosphatase (38-126) U/L Troponin I <0.012 (0.000-0.034) ng/mL Total Protein (6.3-8.2) g/dL Albumin (3.5-5.0) g/dL Disposition Clinical Impression: Epigastric pain, Nausea & vomiting Disposition: ADMITTED IP TO THIS [facility] Condition: Stable Is patient prescribed a controlled substance at d/c from ED?: No Referrals: Pop Castaneda MD [Primary Care Provider] - 1-2 days Decision to Admit Reason: Admit from EC Decision Date: 12/28/19 Decision Time: 13:48
[2019-12-28 11:20] LABS: Basophils # (A) 0.1 k/uL (0-0.2); Basophils % (A) 1 %; Eosinophils # (A) 0.2 k/uL (0-0.7); Eosinophils % (A) 3 %; HCT 42.4 % (39.0-53.0); HGB 14.1 gm/dL (13.0-17.5); Lymphocytes # (A) 1.9 k/uL (1.0-4.8); Lymphocytes % (A) 25 %; MCH 32.3 pg (25.0-35.0); MCHC 33.4 g/dL (31.0-37.0); MCV 96.8 fL (80.0-100.0); Mean Platelet Volume 6.5; Monocytes # (A) 0.6 k/uL (0-1.0); Monocytes % (A) 8 %; Neutrophils # (A) 4.7 k/uL (1.3-7.7); Neutrophils % (A) 61 %; Platelet Count 347 k/uL (150-450); RBC 4.38 m/uL (4.30-5.90); RDW 11.9 % (11.5-15.5); WBC 7.6 k/uL (3.8-10.6)
[2019-12-28 11:28] LABS: ALT 12 U/L (4-49); AST 25 U/L (17-59); African American GFR (CKD) >90 (>60 ml/min/1.73 sqM); Albumin 4.3 g/dL (3.5-5.0); Alkaline Phosphatase 81 U/L (38-126); Anion Gap 9 mmol/L; Blood Urea Nitrogen 3 mg/dL (9-20); Carbon Dioxide 24 mmol/L (22-30); Chloride 106 mmol/L (98-107); Glucose 161 mg/dL (74-99); Non-African American GFR(CKD) 86 (>60 ml/min/1.73 sqM); Potassium 3.7 mmol/L (3.5-5.1); Sodium 139 mmol/L (137-145); Total Bilirubin 0.3 mg/dL (0.2-1.3); Total Protein 7.4 g/dL (6.3-8.2)
[2019-12-28 11:38] LABS: INR 0.9 (<1.2); Partial Thromboplastin Time 25.6 sec (22.0-30.0); Prothrombin Time 9.6 sec (9.0-12.0)
--- NOTE | 2019-12-28 11:43 | CT ---
EXAMINATION TYPE: CT brain wo con DATE OF EXAM: 12/28/2019 HISTORY: Facial numbness, stroke suspected. Code stroke. Acute onset neuro deficit. CT DLP: 1188.4 mGycm. Automated Exposure Control for Dose Reduction was Utilized. TECHNIQUE: CT scan of the head is performed without contrast. COMPARISON: CT brain September 20, 2018. FINDINGS: There is no acute intracranial hemorrhage or midline shift identified. There is diffuse v entricular and sulcal prominence consistent with diffuse age-related cerebral atrophy. There is low- attenuation in the periventricular white matter consistent with chronic small vessel ischemic change. Scleral calcification bilateral globes redemonstrated. IMPRESSION: No acute intracranial hemorrhage or midline shift. There is mild diffuse cerebral atrop hy and chronic small vessel ischemic change redemonstrated. No significant change from prior.
--- NOTE | 2019-12-28 13:31 | CT ---
EXAMINATION TYPE: CT soft tissue neck w con DATE OF EXAM: 12/28/2019 HISTORY: Difficulty swallowing. Swelling on Left side for 30+ years. Left sided parotid gland remov al. COMPARISON: NONE CT DLP: 375.6 mGycm. Automated Exposure Control for Dose Reduction was Utilized. TECHNIQUE: CT scan of the neck is performed with IV Contrast, patient injected with 100 mL of Isovue 300, axial images are obtained, coronal and sagittal reformatted images are reviewed. FINDINGS: Airway: No gross abnormality seen. Parotid/submandibular glands: Asymmetric prominent in region of left parotid gland with suspected mil d to moderate generalized fat replaced atrophy of the right parotid gland as there is abnormal low de nse tissue. No concerning cystic mass or fluid collection at level of left parotid bed. Submandibular glands symmetric and felt within normal limits. Carotid/Vascular Structures: Mild to moderate peripheral plaque in the aortic arch. Mild plaque left carotid bulb level. Moderate peripheral calcified plaque proximal right internal carotid artery witho ut significant stenosis. Slightly dominant left vertebral artery. Bovine type arch which is normal va riant. Osseous Structures: Straightening of cervical spine with mild to moderate multilevel disc space narro wing greatest at C4-C5 and C6-C7 levels . Other: Scattered subcentimeter lymph nodes throughout the neck bilaterally. No greater than 1 cm neck adenopathy. IMPRESSION: Asymmetric prominence in region of left parotid gland with predominant fat density and li near soft tissue density likely reflecting posttreatment change given patient's history of prior paro tid gland removal 30 years ago. A slow-growing fat containing soft tissue mass or neoplasm at this le yazan cannot be excluded. Need to follow up with surgical consultation should be based on clinical denis elation and correlation with old outside imaging. No acute findings are evident.
[2019-12-28] MEDS ORDERED: PANTOPRAZOLE 40 MG/10 ML VIAL IVP STA (13:42)
[2019-12-28] MEDS ORDERED: MORPHINE SULFATE 4 MG/ML SYRINGE IVP STA (13:42)
[2019-12-28] MEDS ORDERED: NALOXONE 0.4 MG/ML 1 ML VIAL IV PRN (13:48)
[2019-12-28] MEDS: SODIUM CHLORIDE 0.9% 1,000 ML IV SCH (14:29)
[2019-12-28] MEDS ORDERED: ACETAMINOPHEN TAB 325 MG TAB PO PRN (14:51)
[2019-12-28] MEDS ORDERED: BUTALB/APAP/CAFF 50-325-40MG TAB PO PRN (14:51)
--- NOTE | 2019-12-28 14:51 | P.HPIM ---
History of Present Illness H&P Date: 12/28/19 Chief Complaint: Nausea, vomiting HISTORY OF PRESENT ILLNESS This is a 67-year-old male patient of Dr. Castaneda and Dr. SELENA Goode with past medical history of coronary artery disease status post stenting, SVT status post ablation, steroid injections of the cervical spine along with radiofrequency ablation, history of gastric ulcers, chronic duodenal stricture EGD in 2017 suggested stable duodenal stricture. Patient has a history of seizure activity in 2018 admission secondary to hyponatremia at 112. She was here over the weekend as observation status for same symptoms. Patient complains of not feeling well since late last week. He initially presented to the hospital on 1025 due to chest pressure in the lower sternal area that was similar to the one he had with previous myocardial infarction approximately 20 years ago. At that time, patient was evaluated by cardiology and acute coronary syndrome ruled out. Echocardiogram revealed EF of 55-60%, trace aortic regurgitation, trace mitral regurgitation, trace tricuspid regurgitation. Patient was discharged home and has not been eating well. On the first day he ate scrambled eggs and toast and up having diarrhea that evening. Yesterday he only had fluids and a Popsicle. He states he's had continued nausea and vomiting and not improved with Zofran. He continues to have low sternal chest pain and epigastric pain. He complains of numbness to his teeth lips and tongue as well as bilateral hands. Hand numbness is chronic he states he was seen in the GI office by Patti CUELLAR in the spring of this year and he was doing fine at that time. There is no concern for worsening of the duodenal stricture at that time. Patient presents to [facility] emergency [facility] for evaluation. CBC was unremarkable, electrolytes normal, BUN 3 and creatinine 0.9. Blood sugar 161. Troponin negative. On last admission troponins were negative on 3 draws. Liver function tests normal. EKG was a sinus rhythm with no acute ST changes Occasional PVC. CAT scan soft tissue of the neck revealed asymmetrical prominence in the region of the left parotid gland with predominant fat density and linear soft tissue density likely reflecting posttreatment change given hist ory of parotid gland removal 30 years ago. Slow growing fat containing soft tissue mass or neoplasm cannot be excluded. CAT scan of the brain revealed no acute intracranial hemorrhage or midline shift. Mild diffuse renal atrophy and chronic small vessel ischemic change. Patient was started on Zofran and morphine, placed on the observation unit and consult with GI requested. Patient will be on clear liquid diet until midnight for possible EGD in the tomorrow. REVIEW OF SYSTEMS Constitutional: No fever, no chills, no night sweats. No weight change. No weakness, fatigue or lethargy. No daytime sleepiness. EENT: No headache. No blurred vision or double vision, no loss of vision. No loss of Hearing, no ringing in the ears, no dizziness. No nasal drainage or congestion. No epistaxis. No sore throat. Lungs: No shortness of breath, cough, no sputum production. No wheezing. Cardiovascular: Reports chest pain, no lower extremity edema. No palpitations. No paroxysmal nocturnal dyspnea. No orthopnea. No lightheadedness or dizziness. No syncopal episodes. Abdominal Reports abdominal pain. Reports nausea, reports vomiting. No diarrhea. No constipation. No bloody or tarry stools. Reports loss of appetite. Genitourinary: No dysuria, increased frequency, urgency. No urinary retention. Musculoskeletal: No myalgias. No muscle weakness, no gait dysfunction, no frequent falls. No back pain. No neck pain. Integumentary: No wounds, no lesions. No rash or pruritus. No unusual bruising. No change in hair or nails. Neurologic: No aphasia. No facial droop. No change in mentation. No head injury. No headache. No paralysis. No paresthesia. Psychiatric: No depression. No anxiety. No mood swings. Endocrine: No abnormal blood sugars. No weight change. No excessive sweating or thirst. No cold intolerance. SOCIAL HISTORY Patient was a smoker for only a few years in his 40s. No illicit drug use, no alcohol use. He lives at home with his . He is retired was a [employer] for 33 years. He does not have a CPAP, nebulizer, O2. FAMILY HISTORY Father at the age of 69 from a ruptured abdominal aortic aneurysm. Mother lived into her 80's without any major medical problems. he patient had 3 brothers. One from colon cancer with metastatic disease to the brain. One brother at age 79 from a myocardial infarction. He has 1 brother that is alive with history of skin cancer and diabetes. Patient has a total of 3 sisters. One in her 80s from myocardial infarction. One sister at age 58 from coronary artery disease and also had a valvular disorder. Patient has one sister alive with diabetes and multiple other medical conditions. Patient has 2 sons and 2 daughters. One daughter was murdered. Other children have no major medical problems. PHYSICAL EXAMINATION Gen: This is is a 69-year-old male. Patient is resting in bed and appears comfortable and in no acute distress. HEENT: Head is atraumatic, normocephalic. Pupils equal, round. Sclerae is anicteric. Patchy redness in the face. NECK: Supple. No JVD. No lymphadenopathy. No thyromegaly. LUNGS: Clear to auscultation. No wheezes or rhonchi. No intercostal retractions. HEART: Regular rate and rhythm. No murmur. Low sternal tenderness ABDOMEN: Soft. Bowel sounds are present. No masses Epigastric tenderness. EXTREMITIES: No pedal edema. No calf tenderness.Dorsalis pedis +2 bilaterally. NEUROLOGICAL: Patient is awake, alert and oriented x3. Cranial nerves 2 through 12 are grossly intact. ASSESSMENT AND PLAN 1. Intractable nausea and vomiting, history of duodenal stricture. Clear liquid diet, nothing by mouth at midnight, GI consult and possible EGD tomorrow 2. Chest pain possibly due to esophagitis. Await GI consult. Patient was seen by cardiology over the weekend and acute coronary syndrome was ruled out. 3. Hyponatremia, chronic. 4. Chronic migraine headaches. 5. Chronic nausea and vomiting. 6. Hypertension. 7. Hyperlipidemia. 8. Rosacea. Patient placed as an observation status. Discharge plan: Home. Impression and plan of care have been directed as dictated by the signing physician. Zahra Lainez nurse practitioner acting as scribe for signing physician. Past Medical History Past Medical History: Coronary Artery Disease (CAD), Chest Pain / Angina, Eye Disorder, GERD/Reflux, Hyperlipidemia, Hypertension, Myocardial Infarction ([place]), Osteoarthritis (OA) Additional Past Medical History / Comment(s): NVD recently, Neck pain, SVT with ablation, duodenal ulcers, chronic duodenal stricture, bilateral glaucoma, sinu sitis, migraines, anemia, esophagitis,hiatal hernia, chronic back pain, past fx ribs/sternum Last Myocardial Infarction Date:: 1999 History of Any Multi-Drug Resistant Organisms: None Reported Past Surgical History: Cardiac Ablation, Cholecystectomy, Heart Catheterization With Stent Additional Past Surgical History / Comment(s): stent right eye 03/2018, PCI with 3 stents, sinus surgery, cataracts bilaterally with lens implants, EGDs/colonoscopies, Past Anesthesia/Blood Transfusion Reactions: No Reported Reaction Additional Past Anesthesia/Blood Transfusion Reaction / Comment(s): Pt has had past multiple transfusions without reaction. Date of Last Stent Placement:: 1999 Past Psychological History: Anxiety Smoking Status: Former smoker Past Alcohol Use History: None Reported Past Drug Use History: None Reported - Past Family History Father Additional Family Medical History / Comment(s): Father at the age of 68yrs from a ruptured aortic aneurysm. Mother Additional Family Medical History / Comment(s): Mother lived into her 80's. Brother(s) Family Medical History: Cancer Additional Family Medical History / Comment(s): The patient had 3 brothers. One from colon cancer with metastatic disease to the brain. One brother at age 79 from a myocardial infarction. He has 1 brother that is alive with history of skin cancer and diabetes. Sister(s) Additional Family Medical History / Comment(s): The patient is a total of 3 sis ters. One in her 80s from myocardial infarction. One sister at age 58 from coronary artery disease and also had a valvular disorder. Patient has one sister alive with diabetes and multiple other medical conditions. Patient has 2 sons and 1 daughter with no major medical problems. Medications and Allergies Home Medications Medication Instructions Recorded Confirmed Type Simvastatin [Zocor] 40 mg PO HS 07/12/13 12/28/19 History Pantoprazole Sodium 40 mg PO BID 06/26/16 12/28/19 History Dicyclomine [Bentyl] 10 mg PO TID 06/04/17 12/28/19 History Dorzolamide-Timol 2.23%/0.68% 1 drop LEFT EYE BID 01/27/18 12/28/19 History [Cosopt] Sodium Chloride Tab 1 gm PO BID 01/27/18 12/28/19 History Gabapentin [Neurontin] 300 mg PO TID 04/26/18 12/28/19 History Latanoprost [Xalatan 0.005%] 1 drop LEFT EYE HS 09/20/18 12/28/19 History Losartan Potassium 100 mg PO DAILY 09/20/18 12/28/19 History Metoprolol Tartrate [Lopressor] 25 mg PO BID 09/20/18 12/28/19 History Ondansetron [Zofran ODT] 4 mg PO BID PRN 09/20/18 12/28/19 History Butalb/APAP/Caff 50-325-40Mg 2 tab PO Q6H PRN 10/06/18 12/28/19 History [Fioricet 50-325-40] Escitalopram [Lexapro] 10 mg PO DAILY 10/06/18 12/28/19 History Brimonidine Tartrate [Alphagan P 1 drop LEFT EYE BID 12/25/19 12/28/19 History 0.2% Ophth Soln] Cholecalciferol [Vitamin D3 (25 2,000 unit PO DAILY 12/25/19 12/28/19 History Mcg = 1000 Iu)] Diazepam [Valium] 5 mg PO HS 12/25/19 12/28/19 History Furosemide [Lasix] 20 mg PO DAILY 12/25/19 12/28/19 History Potassium Chloride ER [K-Dur 20] 20 meq PO DAILY 12/25/19 12/28/19 History Tadalafil [Cialis] 10 mg PO DAILY 12/25/19 12/28/19 History Testosterone Cypionate 100 mg IM Q14D 12/25/19 12/28/19 History [Depo-Testosterone] Acetaminophen Tab [Tylenol] 650 mg PO Q4H PRN 12/28/19 12/28/19 History Allergies Allergy/AdvReac Type Severity Reaction Status Date / Time atorvastatin [From Lipitor] AdvReac MUSCLE Verified 12/28/19 11:31 CRAMPS hydrochlorothiazide AdvReac Nausea & Verified 12/28/19 11:31 Vomiting Physical Exam Vitals: Vital Signs Temp Pulse Resp BP Pulse Ox 12/28/19 14:37 98.1 F 86 18 134/87 100 12/28/19 10:37 98 F 80 18 148/77 98 Intake and Output 12/27/19 12/28/19 12/28/19 22:59 06:59 14:59 Other: Weight 86.183 kg Results CBC & Chem 7: 12/28/19 11:04 12/28/19 11:04 Labs: Abnormal Lab Results - Last 24 Hours (Table) 12/28/19 Range/Units 11:04 BUN 3 L (9-20) mg/dL Glucose 161 H (74-99) mg/dL
[2019-12-28] MEDS: ONDANSETRON 4 MG/2 ML VIAL IVP PRN (16:29)
[2019-12-28] MEDS: GABAPENTIN 300 MG CAP PO SCH ×2 (16:29→21:17)
[2019-12-28] MEDS: DICYCLOMINE 10 MG CAP PO SCH ×2 (16:29→21:14)
[2019-12-28] MEDS: METOPROLOL TARTRATE 25 MG TAB PO SCH (20:30)
[2019-12-28] MEDS: diazePAM 5 MG TAB PO SCH (20:30)
[2019-12-28] MEDS: BRIMONIDINE TARTRATE 0.2% DROPS 5 ML BTL LEFT EYE SCH (20:30)
[2019-12-28] MEDS: LATANOPROST 0.005% OPHTH DROPS 2.5 ML BTL LEFT EYE SCH (20:31)
[2019-12-28] MEDS: DORZOLAMIDE-TIMOLOL 2.23%/0.68 10ML BTL LEFT EYE SCH (20:31)
[2019-12-28] MEDS: SODIUM CHLORIDE TAB 1 GM TAB PO SCH (20:32)
[2019-12-28] MEDS: MORPHINE SULFATE 4 MG/ML SYRINGE IV PRN (20:33)
[2019-12-28] MEDS: SIMVASTATIN 40 MG PO SCH (21:15)
[2019-12-29] MEDS: SODIUM CHLORIDE 0.9% 1,000 ML IV SCH ×2 (02:09→15:45)
[2019-12-29] MEDS: ONDANSETRON 4 MG/2 ML VIAL IVP PRN ×3 (02:09→20:14)
[2019-12-29] MEDS: MORPHINE SULFATE 4 MG/ML SYRINGE IV PRN ×6 (02:09→23:34)
[2019-12-29] MEDS: DICYCLOMINE 10 MG CAP PO SCH ×3 (08:14→21:38)
[2019-12-29] MEDS: SODIUM CHLORIDE TAB 1 GM TAB PO SCH ×2 (08:15→20:08)
[2019-12-29] MEDS: GABAPENTIN 300 MG CAP PO SCH ×3 (08:15→21:38)
[2019-12-29] MEDS: LOSARTAN 50 MG TAB PO SCH (08:15)
[2019-12-29] MEDS: METOPROLOL TARTRATE 25 MG TAB PO SCH ×2 (08:15→20:07)
[2019-12-29] MEDS: ESCITALOPRAM 10 MG TAB PO SCH (08:15)
[2019-12-29] MEDS: BRIMONIDINE TARTRATE 0.2% DROPS 5 ML BTL LEFT EYE SCH ×2 (08:16→20:09)
[2019-12-29] MEDS: PANTOPRAZOLE 40 MG/10 ML VIAL IV SCH (08:16)
[2019-12-29] MEDS: DORZOLAMIDE-TIMOLOL 2.23%/0.68 10ML BTL LEFT EYE SCH ×2 (08:16→20:08)
--- NOTE | 2019-12-29 10:50 | P.PN ---
Subjective Progress Note Date: 12/29/19 HISTORY OF PRESENT ILLNESS This is a 67-year-old male patient of Dr. Castaneda and Dr. SELENA Goode with past medical history of coronary artery disease status post stenting, SVT status post ablation, steroid injections of the cervical spine along with radiofrequency ablation, history of gastric ulcers, chronic duodenal stricture EGD in 2017 suggested stable duodenal stricture. Patient has a history of seizure activity in 2018 admission secondary to hyponatremia at 112. She was here over the weekend as observation status for same symptoms. Patient complains of not feeling well since late last week. He initially presented to the hospital on 1025 due to chest pressure in the lower sternal area that was similar to the one he had with previous myocardial infarction approximately 20 years ago. At that time, patient was evaluated by cardiology and acute coronary syndrome ruled out. Echocardiogram revealed EF of 55-60%, trace aortic regurgitation, trace mitral regurgitation, trace tricuspid regurgitation. Patient was discharged home and has not been eating well. On the first day he ate scrambled eggs and toast and up having diarrhea that evening. Yesterday he only had fluids and a Popsicle. He states he's had continued nausea and vomiting and not improved with Zofran. He continues to have low sternal chest pain and epigastric pain. He complains of numbness to his teeth lips and tongue as well as bilateral hands. Hand numbness is chronic he states he was seen in the GI office by Patti CUELLAR in the spring of this year and he was doing fine at that time. There is no concern for worsening of the duodenal stricture at that time. Patient presents to [facility] emergency center for evaluation. CBC was unremarkable, electrolytes normal, BUN 3 and creatinine 0.9. Blood sugar 161. Troponin negative. On last admission troponins were negative on 3 draws. Liver function tests normal. EKG was a sinus rhythm with no acute ST changes Occasional PVC. CAT scan soft tissue of the neck revealed asymmetrical prominence in the region of the left parotid gland with predominant fat density and linear soft tissue density likely reflecting posttreatment change given history of parotid gland removal 30 years ago. Slow growing fat containing soft tissue mass or neoplasm cannot be excluded. CAT scan of the brain revealed no acute intracranial hemorrhage or midline shift. Mild diffuse renal atrophy and chronic small vessel ischemic change. Patient was started on Zofran and morphine, placed on the observation unit and consult with GI requested. Patient will be on clear liquid diet until midnight for possible EGD in the tomorrow. 12/28: Patient has been seen by GI with plan for EGD tomorrow morning. Patient continues to have ongoing symptoms with no relief. He tolerated some clear liquids. We will plan to continue clear liquids for today. He has been afebrile, heart rate 73, blood pressure 143/69, pulse ox 98% on room air. REVIEW OF SYSTEMS Constitutional: No fever, no chills, no night sweats. No weight change. No weakness, fatigue or lethargy. No daytime sleepiness. EENT: No headache. No blurred vision or double vision, no loss of vision. No loss of Hearing, no ringing in the ears, no dizziness. No nasal drainage or congestion. No epistaxis. No sore throat. Lungs: No shortness of breath, cough, no sputum production. No wheezing. Cardiovascular: Reports chest pain, no lower extremity edema. No palpitations. No paroxysmal nocturnal dyspnea. No orthopnea. No lightheadedness or dizziness. No syncopal episodes. Abdominal Reports abdominal pain. Reports nausea, reports vomiting. No diarrhea. No constipation. No bloody or tarry stools. Reports loss of appetite. Genitourinary: No dysuria, increased frequency, urgency. No urinary retention. Musculoskeletal: No myalgias. No muscle weakness, no gait dysfunction, no frequent falls. No back pain. No neck pain. Integumentary: No wounds, no lesions. No rash or pruritus. No unusual bruising. No change in hair or nails. Neurologic: No aphasia. No facial droop. No change in mentation. No head injury. No headache. No paralysis. No paresthesia. Psychiatric: No depression. No anxiety. No mood swings. Endocrine: No abnormal blood sugars. No weight change. No excessive sweating or thirst. No cold intolerance. PHYSICAL EXAMINATION Gen: This is is a 69-year-old male. Patient is resting in bed and appears comfortable and in no acute distress. HEENT: Head is atraumatic, normocephalic. Pupils equal, round. Sclerae is anicteric. Patchy redness in the face. NECK: Supple. No JVD. No lymphadenopathy. No thyromegaly. LUNGS: Clear to auscultation. No wheezes or rhonchi. No intercostal retractions. HEART: Regular rate and rhythm. No murmur. Low sternal tenderness ABDOMEN: Soft. Bowel sounds are present. No masses Epigastric tenderness. EXTREMITIES: No pedal edema. No calf tenderness.Dorsalis pedis +2 bilaterally. NEUROLOGICAL: Patient is awake, alert and oriented x3. Cranial nerves 2 through 12 are grossly intact. ASSESSMENT AND PLAN 1. Intractable nausea and vomiting, history of duodenal stricture. Clear liquid diet, GI consult appreciated with plan for EGD tomorrow morning. 2. Chest pain possibly due to esophagitis. Await GI consult. Patient was seen by cardiology over the weekend and acute coronary syndrome was ruled out. 3. Hyponatremia, chronic. 4. Chronic migraine headaches. 5. Chronic nausea and vomiting. 6. Hypertension. 7. Hyperlipidemia. 8. Rosacea. Discharge plan: Home most likely on Thursday. Impression and plan of care have been directed as dictated by the signing physician. Zahra Lainez nurse practitioner acting as scribe for signing physician. Objective - Vital Signs Vital signs: Vital Signs Temp 98.4 F 12/29/19 08:10 Pulse 73 12/29/19 08:10 Resp 18 12/29/19 08:10 BP 143/69 12/29/19 08:10 Pulse Ox 98 12/29/19 08:10 Intake & Output 12/28/19 12/29/19 12/29/19 18:59 06:59 18:59 Intake Total 150 250 Output Total 400 Balance 150 -150 Weight 86.183 kg Intake: Oral 150 250 Output: Urine 400 Other: Voiding Method Toilet # Voids 1 - Labs CBC & Chem 7: 12/28/19 11:04 12/28/19 11:04 Labs: Abnormal Lab Results - Last 24 Hours (Table) 12/28/19 Range/Units 11:04 BUN 3 L (9-20) mg/dL Glucose 161 H (74-99) mg/dL
[2019-12-29 13:24] VITALS: BMI 25.7
[2019-12-29] MEDS: LOPERAMIDE 2 MG CAP PO PRN ×2 (15:44→23:34)
[2019-12-29] MEDS ORDERED: LOPERAMIDE 2 MG CAP PO SCH ×2 (16:00)
--- NOTE | 2019-12-29 17:38 | CONS ---
CONSULTATION DATE OF DICTATION: 12/29/2019 REASON FOR CONSULTATION: Severe epigastric pain associated with nausea, vomiting and dysphagia. HISTORY OF PRESENT ILLNESS: The patient is a 69-year-old pleasant white male with a history of coronary artery disease, hypertension and history of peptic ulcer disease who presented to the hospital with severe epigastric pain associated with nausea and vomiting for the last 3 days' duration. He has not been feeling well for the last one week. He was just admitted to the hospital 5 days ago with chest pain and underwent cardiac workup. He did have an echocardiogram done during his last hospitalization that showed a normal ejection fraction and trace mitral and aortic regurgitation. After he was discharged home, which was 4 days ago, he started having this epigastric discomfort, decreased appetite, nausea, vomiting and some diarrhea. Yesterday he felt dehydrated and continued to have worsening symptoms. He tried taking Zofran, with no help. Hence he came into the emergency room and was subsequently admitted to the hospital for further evaluation. The patient states that he had about 2 episodes of emesis with a small amount of bloody streaks noted. His last upper endoscopy was done in 2017, and he was noted to have benign duodenal stricture. He has prior history of peptic ulcer disease. PAST MEDICAL HISTORY: Past medical history is significant for coronary artery disease, history of hypertension, hyperlipidemia, degenerative joint disease, peptic ulcer disease, gastroesophageal reflux disease. PAST SURGICAL HISTORY: Cholecystectomy, cardiac ablation, cardiac catheterization with stent placement, EGDs and colonoscopies in the past, right eye surgery, bilateral cataract surgery. MEDICATIONS: Medications at home include Zocor, Bentyl, pantoprazole, Neurontin, Xalatan, Lopressor, Zofran, Lexapro, vitamin D3, Valium, Lasix, potassium chloride, Tylenol, testosterone. ALLERGIES: ATORVASTATIN and HYDROCHLOROTHIAZIDE. FAMILY HISTORY: Brother had colon cancer. One brother of coronary artery disease and status post IN. Father of a ruptured aortic aneurysm. REVIEW OF SYSTEMS: CARDIOPULMONARY: He denies any chest pain but has had some shortness of breath. GENITOURINARY: No dysuria or hematuria. MUSCULOSKELETAL: Some chronic back pain. ENT/VISION: Unremarkable. CONSTITUTIONAL: No recent weight loss. No fever, chills, night sweats. HEMATOLOGY: Unremarkable. PSYCHIATRIC: Unremarkable. NEUROLOGY: Unremarkable. ENDOCRINE: Unremarkable. PHYSICAL EXAMINATION: He appears comfortable. No apparent distress. Vital signs are stable. Blood pressure is 111/65, pulse rate 65, temperature 98. HEENT examination unremarkable. Conjunctivae pink. Sclerae anicteric. Oral cavity no lesions. NECK: No JVD or lymph node enlargement. CHEST: Clear to auscultation. HEART: Regular rate and rhythm. ABDOMEN: Soft. There was mild tenderness in the epigastric area. Bowel sounds are positive. No organomegaly. EXTREMITIES: No pedal edema. NEUROLOGIC: Alert and oriented x3. No focal deficits. LABS/IMAGING: Labs from yesterday showed WBC 7.6, hemoglobin 14.1, platelets normal. Basic metabolic panel is within normal limits. BUN and creatinine at 3 and 0.9, respectively. T- bilirubin and alkaline phosphatase normal. ALT and AST normal. Amylase and lipase are normal. He did have a brain CT done that showed no acute intracranial bleed. Mild diffuse cortical atrophy and chronic small-vessel ischemic changes noted. IMPRESSION: 1. Acute onset of severe epigastric pain associated with nausea and vomiting and some blood streaks in emesis for the last 3 days' duration. The patient is known to have a prior history of peptic ulcer disease, and last upper endoscopy done 2 years ago did show evidence of duodenal stricture. The patient has been having similar episodes on and off for the last 3 or 4 years' duration and he has been maintained on an outpatient basis with Protonix as well as Zofran as needed, and he was doing reasonably well until 3 days ago. Rule out recurrent peptic ulcer disease. 2. History of coronary artery disease, status post myocardial infarction in the past. He has history of stent placements in the past. Recent cardiac workup was negative. 3. History of chronic migraine headaches. 4. Hypertension, hyperlipidemia. RECOMMENDATIONS: 1. Continue with IV Protonix 40 mg q.12 hours. 2. Zofran as needed. 3. Will proceed with an upper endoscopy tomorrow. 4. Discussed with the patient risks, benefits and complications, and he is agreeable to it. Thank you for this consultation. MMODL / IJN: [id number] /
[2019-12-29] MEDS: SIMVASTATIN 40 MG PO SCH (20:07)
[2019-12-29] MEDS: diazePAM 5 MG TAB PO SCH (20:07)
[2019-12-29] MEDS: LATANOPROST 0.005% OPHTH DROPS 2.5 ML BTL LEFT EYE SCH (20:08)
[2019-12-30 03:44] VITALS: TEMP 97.9
[2019-12-30] MEDS: MORPHINE SULFATE 4 MG/ML SYRINGE IV PRN ×2 (03:45→08:02)
[2019-12-30] MEDS: SODIUM CHLORIDE 0.9% 1,000 ML IV SCH (05:59)
[2019-12-30] MEDS: ONDANSETRON 4 MG/2 ML VIAL IVP PRN (06:29)
[2019-12-30] MEDS ORDERED: IV FLUID CONTINUATION 800 ML IV ONE (07:01)
[2019-12-30] MEDS ORDERED: PROPOFOL 10 MG/ML 20 ML VIAL IV ONE (07:01)
--- NOTE | 2019-12-30 07:20 | P.PCN ---
Date of Procedure: 12/30/19 Procedure(s) Performed: BRIEF HISTORY: Patient is a 69-year-old, pleasant, white male scheduled for an upper endoscopy as a part of evaluation of acute onset of severe epigastric pain associated with nausea vomiting for the last 3 days' duration.. PROCEDURE PERFORMED: Esophagogastroduodenoscopy with biopsy. PREOPERATIVE DIAGNOSIS: Epigastric pain associated with nausea vomiting of 3 days' duration. IV sedation per anesthesia. PROCEDURE: After informed consent was obtained, the patient was brought into the endoscopy unit. IV sedation was administered by Anesthesia under continuous monitoring. Initially the Olympus GIF-140 video endoscope was inserted into the mouth. Esophagus intubated without any difficulty. It was gradually advanced into the stomach and duodenum and carefully examined. The bulb and the second part of the duodenum appeared normal. The scope at this time was withdrawn to the stomach, adequately insufflated with air, and upon careful examination, mucosa of the antrum, had mild gastritis and biopsies were done from this area. The body, cardia and the fundus appeared normal. The scope was then withdrawn into the esophagus. The GE junction was located at 40 cm from the incisors. In the distal esophagus extending from 35-38 cm from the incisors there were multiple punctate like ulceration noted suspicious for infectious esophagitis. Multiple biopsies were done from this area. The rest of the esophagus appeared normal. There were no erosions or ulcerations seen and the patient tolerated the procedure well. IMPRESSION: 1. Multiple scattered punctate like ulcerations noted in the distal esophagus extending from 35-38 cm from the incisors suspicious for viral esophagitis. 2. Antral gastritis. RECOMMENDATIONS: The findings of this examination were discussed with the patient as well as his family. At this time will await biopsy results. Diet will be advanced as tolerated. Continue antiemetics and Protonix for now..
[2019-12-30] MEDS: PANTOPRAZOLE 40 MG/10 ML VIAL IV SCH (08:05)
[2019-12-30] MEDS: DICYCLOMINE 10 MG CAP PO SCH (08:06)
[2019-12-30] MEDS: SODIUM CHLORIDE TAB 1 GM TAB PO SCH (08:06)
[2019-12-30] MEDS: BRIMONIDINE TARTRATE 0.2% DROPS 5 ML BTL LEFT EYE SCH (08:06)
[2019-12-30] MEDS: LOSARTAN 50 MG TAB PO SCH (08:06)
[2019-12-30] MEDS: DORZOLAMIDE-TIMOLOL 2.23%/0.68 10ML BTL LEFT EYE SCH (08:06)
[2019-12-30] MEDS: ESCITALOPRAM 10 MG TAB PO SCH (08:07)
[2019-12-30] MEDS: METOPROLOL TARTRATE 25 MG TAB PO SCH (08:07)
[2019-12-30] MEDS: GABAPENTIN 300 MG CAP PO SCH (08:07)
[2019-12-30 08:17] VITALS: BP 121/71; PULSE 66
--- NOTE | 2019-12-30 08:25 | P.DS ---
Providers Date of admission: 12/28/19 13:48 Expected date of discharge: 12/30/19 Attending physician: John Armando Consults: 12/28/19 13:49 Consult Physician Routine Consulting Provider: Leyla Subramanian Consult Reason/Comments: epigastric pain, esophageal stricture Do you want consulting provider notified?: Yes Primary care physician: Pop Castaneda MD Hospital Course: HISTORY OF PRESENT ILLNESS This is a 67-year-old male patient of Dr. Castaneda and Dr. SELENA Goode with past medical history of coronary artery disease status post stenting, SVT status post ablation, steroid injections of the cervical spine along with radiofrequency ablation, history of gastric ulcers, chronic duodenal stricture EGD in 2017 suggested stable duodenal stricture. Patient has a history of seizure activity in 2018 admission secondary to hyponatremia at 112. She was here over the weekend as observation status for same symptoms. Patient complains of not feeling well since late last week. He initially presented to the hospital on 1025 due to chest pressure in the lower sternal area that was similar to the one he had with previous myocardial infarction approximately 20 years ago. At that time, patient was evaluated by cardiology and acute coronary syndrome ruled out. Echocardiogram revealed EF of 55-60%, trace aortic regurgitation, trace mitral regurgitation, trace tricuspid regurgitation. Patient was discharged home and has not been eating well. On the first day he ate scrambled eggs and toast and up having diarrhea that evening. Yesterday he only had fluids and a Popsicle. He states he's had continued nausea and vomiting and not improved with Zofran. He continues to have low sternal chest pain and epigastric pain. He complains of numbness to his teeth lips and tongue as well as bilateral hands. Hand numbness is chronic he states he was seen in the GI office by Patti CUELLAR in the spring of this year and he was doing fine at that time. There is no concern for worsening of the duodenal stricture at that time. Patient presents to [facility] emergency center for evaluation. CBC was unremarkable, electrolytes normal, BUN 3 and creatinine 0.9. Blood sugar 161. Troponin negative. On last admission troponins were negative on 3 draws. Liver function tests normal. EKG was a sinus rhythm with no acute ST changes Occasional PVC. CAT scan soft tissue of the neck revealed asymmetrical prominence in the region of the left parotid gland with predominant fat density and linear soft tissue density likely reflecting posttreatment change given history of parotid gland removal 30 years ago. Slow growing fat containing soft tissue mass or neoplasm cannot be excluded. CAT scan of the brain revealed no acute intracranial hemorrhage or midline shift. Mild diffuse renal atrophy and chronic small vessel ischemic change. Patient was started on Zofran and morphine, placed on the observation unit and consult with GI requested. Patient will be on clear liquid diet until midnight for possible EGD in the tomorrow. 12/28: Patient has been seen by GI with plan for EGD tomorrow morning. Patient continues to have ongoing symptoms with no relief. He tolerated some clear liquids. We will plan to continue clear liquids for today. He has been afebrile, heart rate 73, blood pressure 143/69, pulse ox 98% on room air. 12/29: Patient has been afebrile, heart rate 66, blood pressure 121/71, pulse ox 97% on room air. Patient underwent EGD this morning that revealed multiple scattered punctate-like ulcerations noted in the distal esophagus extending from 35-38 cm from incisors suspicious for viral esophagitis. Antral gastritis. Patient resumed on diet and if tolerates for lunch, patient cleared for dischar ge home. Patient to continue Protonix twice daily, Carafate added as well as viscous lidocaine as patient is complaining of pain with eating. Patient will be discharged home after lunch today. Tolerates this well. ASSESSMENT AND PLAN 1. Intractable nausea and vomiting, history of duodenal stricture. Clear liquid diet, GI consult appreciated with plan for EGD tomorrow morning. 2. Chest pain possibly due to esophagitis. Await GI consult. Patient was seen by cardiology over the weekend and acute coronary syndrome was ruled out. 3. Hyponatremia, chronic. 4. Chronic migraine headaches. 5. Chronic nausea and vomiting. 6. Hypertension. 7. Hyperlipidemia. 8. Rosacea. Discharge plan: Home Impression and plan of care have been directed as dictated by the signing physician. Zahra Lainez nurse practitioner acting as scribe for signing physician. Patient Condition at Discharge: Good Plan - Discharge Summary Discharge Rx Participant: No New Discharge Prescriptions: New lidocaine HCL [Lidocaine HCl Viscous] 5 ml PO AC-TID #150 solution Pantoprazole Sodium [Protonix] 40 mg PO AC-BID #60 tablet. Sucralfate [Carafate] 1 gm PO ACHS #1200 ml Continue Simvastatin [Zocor] 40 mg PO HS Pantoprazole Sodium 40 mg PO BID Dicyclomine [Bentyl] 10 mg PO TID Sodium Chloride Tab 1 gm PO BID Dorzolamide-Timol 2.23%/0.68% [Cosopt] 1 drop LEFT EYE BID Gabapentin [Neurontin] 300 mg PO TID Metoprolol Tartrate [Lopressor] 25 mg PO BID Ondansetron [Zofran ODT] 4 mg PO BID PRN PRN Reason: Nausea Losartan Potassium 100 mg PO DAILY Latanoprost [Xalatan 0.005%] 1 drop LEFT EYE HS Escitalopram [Lexapro] 10 mg PO DAILY Butalb/APAP/Caff 50-325-40Mg [Fioricet 50-325-40] 2 tab PO Q6H PRN PRN Reason: Migraine Headache Cholecalciferol [Vitamin D3 (25 Mcg = 1000 Iu)] 2,000 unit PO DAILY Brimonidine Tartrate [Alphagan P 0.2% [facility] Soln] 1 drop LEFT EYE BID Potassium Chloride ER [K-Dur 20] 20 meq PO DAILY Furosemide [Lasix] 20 mg PO DAILY Tadalafil [Cialis] 10 mg PO DAILY Diazepam [Valium] 5 mg PO HS Testosterone Cypionate [Depo-Testosterone] 100 mg IM Q14D Acetaminophen Tab [Tylenol] 650 mg PO Q4H PRN PRN Reason: Pain Discharge Medication List Simvastatin [Zocor] 40 mg PO HS 07/12/13 [History] Pantoprazole Sodium 40 mg PO BID 06/26/16 [History] Dicyclomine [Bentyl] 10 mg PO TID 06/04/17 [History] Dorzolamide-Timol 2.23%/0.68% [Cosopt] 1 drop LEFT EYE BID 01/27/18 [History] Sodium Chloride Tab 1 gm PO BID 01/27/18 [History] Gabapentin [Neurontin] 300 mg PO TID 04/26/18 [History] Latanoprost [Xalatan 0.005%] 1 drop LEFT EYE HS 09/20/18 [History] Losartan Potassium 100 mg PO DAILY 09/20/18 [History] Metoprolol Tartrate [Lopressor] 25 mg PO BID 09/20/18 [History] Ondansetron [Zofran ODT] 4 mg PO BID PRN 09/20/18 [History] Butalb/APAP/Caff 50-325-40Mg [Fioricet 50-325-40] 2 tab PO Q6H PRN 10/06/18 [History] Escitalopram [Lexapro] 10 mg PO DAILY 10/06/18 [History] Brimonidine Tartrate [Alphagan P 0.2% Ophth Soln] 1 drop LEFT EYE BID 12/25/19 [History] Cholecalciferol [Vitamin D3 (25 Mcg = 1000 Iu)] 2,000 unit PO DAILY 12/25/19 [History] Diazepam [Valium] 5 mg PO HS 12/25/19 [History] Furosemide [Lasix] 20 mg PO DAILY 12/25/19 [History] Potassium Chloride ER [K-Dur 20] 20 meq PO DAILY 12/25/19 [History] Tadalafil [Cialis] 10 mg PO DAILY 12/25/19 [History] Testosterone Cypionate [Depo-Testosterone] 100 mg IM Q14D 12/25/19 [History] Acetaminophen Tab [Tylenol] 650 mg PO Q4H PRN 12/28/19 [History] Pantoprazole Sodium [Protonix] 40 mg PO AC-BID #60 tablet.dr 12/30/19 [Rx] Sucralfate [Carafate] 1 gm PO ACHS #1200 ml 12/30/19 [Rx] lidocaine HCL [Lidocaine HCl Viscous] 5 ml PO AC-TID #150 solution 12/30/19 [Rx] Follow up Appointment(s)/Referral(s): Pop Castaneda MD [Primary Care Provider] - 01/03/20 9:30 am (Will see PUBLIC DEFENDER Megan Soliman) Leyla Subramanian MD [STAFF PHYSICIAN] - 01/18/20 8:30 am Patient Instructions/Handouts: Peptic Ulcer (GEN), Gastritis (DC), Diet for Stomach Ulcers and Gastritis (GEN) Discharge Disposition: HOME SELF-CARE
[2019-12-30] MEDS ORDERED: SUCRALFATE 1 GM TAB PO SCH (12:30)
[2019-12-30] MEDS ORDERED: PANTOPRAZOLE 40 MG TABLET PO SCH (17:30)
== END 2019-12-30 13:19 | disposition home or self-care (01) ==
LOC: EC 10:36 → 1SOBS 13:48 → 3NCARDOBS 14:46
PROVIDERS: ADMIT Internal Medicine Geriatric Medicine; ATTEND Internal Medicine Geriatric Medicine
DX: K29.50 Unspecified chronic gastritis without bleeding (principal); K21.00 Gastro-esophageal reflux disease with esophagitis, without bleeding; K22.2 Esophageal obstruction; K22.10 Ulcer of esophagus without bleeding; L92.9 Granulomatous disorder of the skin and subcutaneous tissue, unspecified; I08.3 Combined rheumatic disorders of mitral, aortic and tricuspid valves; E87.1 Hypo-osmolality and hyponatremia; Z87.11 Personal history of peptic ulcer disease; I25.10 Atherosclerotic heart disease of native coronary artery without angina pectoris; I10 Essential (primary) hypertension; E78.5 Hyperlipidemia, unspecified; L71.9 Rosacea, unspecified; H40.9 Unspecified glaucoma; F41.9 Anxiety disorder, unspecified; I25.2 Old myocardial infarction; G40.909 Epilepsy, unspecified, not intractable, without status epilepticus; M19.90 Unspecified osteoarthritis, unspecified site; K31.5 Obstruction of duodenum; G43.909 Migraine, unspecified, not intractable, without status migrainosus; D64.9 Anemia, unspecified; K44.9 Diaphragmatic hernia without obstruction or gangrene; G89.29 Other chronic pain; M54.9 Dorsalgia, unspecified; Z90.49 Acquired absence of other specified parts of digestive tract; Z95.5 Presence of coronary angioplasty implant and graft; Z98.42 Cataract extraction status, left eye; Z98.41 Cataract extraction status, right eye; Z96.1 Presence of intraocular lens; Z98.890 Other specified postprocedural states; Z87.891 Personal history of nicotine dependence; Z86.79 Personal history of other diseases of the circulatory system; Z80.0 Family history of malignant neoplasm of digestive organs; Z80.8 Family history of malignant neoplasm of other organs or systems; Z82.49 Family history of ischemic heart disease and other diseases of the circulatory system; Z83.3 Family history of diabetes mellitus; Z79.899 Other long term (current) drug therapy; Z79.891 Long term (current) use of opiate analgesic; Z79.890 Hormone replacement therapy; Z88.8 Allergy status to other drugs, medicaments and biological substances
CPT/HCPCS: 96361 ×2; 96375 ×2; 96376 ×3; 96374; 99285; 36415; 93005; 88305; 80053; 82150; 83690; 83735; 84484; 85025; 85610; 85730; 88312; 70491; 70450; 43239; G0378 ×4; J2270 ×3; J2405 ×3; J2704; C9113 ×3; Q9967

== ENCOUNTER 2020-01-04 11:21 | Observation (INO) | payer MEDICARE ==
[2020-01-04] MEDS ORDERED: SODIUM CHLORIDE 0.9% 1,000 ML IV STA (12:00)
[2020-01-04] MEDS ORDERED: FAMOTIDINE 20 MG/2 ML VIAL IV STA (12:00)
[2020-01-04] MEDS ORDERED: MAG HYDROX/AL HYDROX/SIMETH 30 ML, HYOSCYAMINE ELIXIR 10 ML, LIDOCAINE VISCOUS 2% 10 ML PO STA ×3 (12:00)
[2020-01-04] MEDS ORDERED: ONDANSETRON 4 MG/2 ML VIAL IVP STA (12:00)
[2020-01-04 13:10] LABS: Basophils # (A) 0.1 k/uL (0-0.2); Basophils % (A) 1 %; Eosinophils # (A) 0.2 k/uL (0-0.7); Eosinophils % (A) 3 %; HCT 42.8 % (39.0-53.0); HGB 14.4 gm/dL (13.0-17.5); Lymphocytes # (A) 2.1 k/uL (1.0-4.8); Lymphocytes % (A) 24 %; MCH 31.7 pg (25.0-35.0); MCHC 33.5 g/dL (31.0-37.0); MCV 94.5 fL (80.0-100.0); Mean Platelet Volume 6.2; Monocytes # (A) 0.6 k/uL (0-1.0); Monocytes % (A) 6 %; Neutrophils # (A) 5.5 k/uL (1.3-7.7); Neutrophils % (A) 64 %; Platelet Count 381 k/uL (150-450); RBC 4.53 m/uL (4.30-5.90); WBC 8.6 k/uL (3.8-10.6)
--- NOTE | 2020-01-04 13:10 | XR ---
EXAMINATION TYPE: XR KUB DATE OF EXAM: 01/04/2020 1:03 PM CLINICAL HISTORY: Abdominal pain with nausea and vomiting. TECHNIQUE: Two Upright KUB images of the abdomen are obtained. COMPARISON: Abdominal x-ray and CT abdomen and pelvis October 06, 2018. FINDINGS: Scattered gas is seen in non-distended stomach and small bowel loops. Gas and fecal materia l is seen in non-distended colon. Scattered air fluid levels are present particularly in the right ab domen. Cholecystectomy clips are redemonstrated. Underlying levoconvex scoliosis centered at L3-L4 le yazan redemonstrated. Lung bases are clear. No pneumoperitoneum. Fairly moderate narrowing of both hip joints redemonstrated. IMPRESSION: Overall nonobstructive bowel gas pattern remains present.
[2020-01-04] MEDS ORDERED: MORPHINE SULFATE 4 MG/ML SYRINGE IVP STA (13:18)
[2020-01-04 13:22] LABS: ALT 12 U/L (4-49); AST 26 U/L (17-59); African American GFR (CKD) >90 (>60 ml/min/1.73 sqM); Albumin 4.1 g/dL (3.5-5.0); Alkaline Phosphatase 80 U/L (38-126); Amylase 44 U/L (30-110); Anion Gap 10 mmol/L; Blood Urea Nitrogen 5 mg/dL (9-20); Calcium 8.9 mg/dL (8.4-10.2); Carbon Dioxide 23 mmol/L (22-30); Chloride 102 mmol/L (98-107); Glucose 112 mg/dL (74-99); Lipase 124 U/L (23-300); Non-African American GFR(CKD) >90 (>60 ml/min/1.73 sqM); Potassium 3.1 mmol/L (3.5-5.1); Sodium 135 mmol/L (137-145); Total Bilirubin 0.4 mg/dL (0.2-1.3); Total Protein 6.9 g/dL (6.3-8.2)
[2020-01-04] MEDS ORDERED: HYDROmorphone 0.5 MG/0.5 ML SYRINGE IVP STA (13:41)
[2020-01-04] MEDS ORDERED: METOCLOPRAMIDE 5 MG/ML 2 ML VIAL IVP STA (13:41)
[2020-01-04] MEDS ORDERED: POTASSIUM CHLORIDE ER 20 MEQ TAB.ER PO STA (13:41)
[2020-01-04] MEDS ORDERED: diphenhydrAMINE 50 MG/ML 1 ML VIAL IVP STA (13:41)
--- NOTE | 2020-01-04 14:11 | ED ---
General Adult HPI - General Chief complaint: Nausea/Vomiting/Diarrhea Stated complaint: Throat swelling Time Seen by Provider: 01/04/20 11:43 Source: patient, family, RN notes reviewed Mode of arrival: wheelchair Limitations: no limitations - History of Present Illness Initial comments: 69-year-old male with a past medical history of CAD, chest pain, GERD, hyperlipidemia, hypertension, chronic duodenal stricture, duodenal ulcers, esophagitis presents to the emergency room for a chief complaint of epigastric pain. Patient was recently admitted to this hospital and underwent EGD that revealed multiple scattered punctate-like ulcerations noted in the distal esophagus suspicious for viral esophagitis. Antral gastritis noted. Patient has medications and went home. Patient reports that he has had pain over the past several days worsening yesterday. States he is now nauseous and vomiting and has been unable to keep down his medications. Patient has no other complaints at this time including shortness of breath, chest pain, abdominal pain, nausea or vomiting, headache, or visual changes. - Related Data Home Medications Medication Instructions Recorded Confirmed Simvastatin [Zocor] 40 mg PO HS 07/12/13 01/04/20 Pantoprazole Sodium 40 mg PO BID 06/26/16 01/04/20 Dicyclomine [Bentyl] 10 mg PO TID 06/04/17 01/04/20 Dorzolamide-Timol 2.23%/0.68% 1 drop LEFT EYE BID 01/27/18 01/04/20 [Cosopt] Sodium Chloride Tab 1 gm PO BID 01/27/18 01/04/20 Gabapentin [Neurontin] 300 mg PO TID 04/26/18 01/04/20 Latanoprost [Xalatan 0.005%] 1 drop LEFT EYE HS 09/20/18 01/04/20 Losartan Potassium 100 mg PO DAILY 09/20/18 01/04/20 Metoprolol Tartrate [Lopressor] 25 mg PO BID 09/20/18 01/04/20 Ondansetron [Zofran ODT] 4 mg PO BID PRN 09/20/18 01/04/20 Butalb/APAP/Caff 50-325-40Mg 2 tab PO Q6H PRN MDD 3caps/24hr 10/06/18 01/04/20 [Fioricet 50-325-40] Escitalopram [Lexapro] 10 mg PO DAILY 10/06/18 01/04/20 Brimonidine Tartrate [Alphagan P 1 drop LEFT EYE BID 12/25/19 01/04/20 0.2% Ophth Soln] Cholecalciferol [Vitamin D3 (25 2,000 unit PO DAILY 12/25/19 01/04/20 Mcg = 1000 Iu)] Diazepam [Valium] 5 mg PO HS 12/25/19 01/04/20 Furosemide [Lasix] 20 mg PO DAILY 12/25/19 01/04/20 Potassium Chloride ER [K-Dur 20] 20 meq PO DAILY 12/25/19 01/04/20 Tadalafil [Cialis] 10 mg PO DAILY 12/25/19 01/04/20 Testosterone Cypionate 100 mg IM Q14D 12/25/19 01/04/20 [Depo-Testosterone] Acetaminophen Tab [Tylenol] 650 mg PO Q4H PRN 12/28/19 01/04/20 HYDROcodone/APAP 5-325MG [[place] 1 tab PO Q6H PRN 01/04/20 01/04/20 5-325] Previous Rx's Medication Instructions Recorded Pantoprazole Sodium [Protonix] 40 mg PO AC-BID #60 tablet. 12/30/19 Sucralfate [Carafate] 1 gm PO ACHS #1200 ml 12/30/19 lidocaine HCL [Lidocaine HCl 5 ml PO AC-TID #150 solution 12/30/19 Viscous] Allergies Allergy/AdvReac Type Severity Reaction Status Date / Time atorvastatin [From Lipitor] AdvReac MUSCLE Verified 01/04/20 13:32 CRAMPS hydrochlorothiazide AdvReac Nausea & Verified 01/04/20 13:32 Vomiting Review of Systems ROS Statement: Those systems with pertinent positive or pertinent negative responses have been documented in the HPI. ROS Other: All systems not noted in ROS Statement are negative. Past Medical History Past Medical History: Coronary Artery Disease (CAD), Chest Pain / Angina, Eye Disorder, GERD/Reflux, Hyperlipidemia, Hypertension, Myocardial Infarction (PR), Osteoarthritis (OA) Additional Past Medical History / Comment(s): NVD recently, Neck pain, SVT with ablation, duodenal ulcers, chronic duodenal stricture, bilateral glaucoma, sinusitis, migraines, anemia, esophagitis,hiatal hernia, chronic back pain, past fx ribs/sternum Last Myocardial Infarction Date:: 1999 History of Any Multi-Drug Resistant Organisms: None Reported Past Surgical History: Cardiac Ablation, Cholecystectomy, Heart Catheterization With Stent Additional Past Surgical History / Comment(s): stent right eye 03/2018, PCI with 3 stents, sinus surgery, cataracts bilaterally with lens implants, EGDs/colonoscopies, Past Anesthesia/Blood Transfusion Reactions: No Reported Reaction Additional Past Anesthesia/Blood Transfusion Reaction / Comment(s): Pt has had past multiple transfusions without reaction. Date of Last Stent Placement:: 1999 Past Psychological History: Anxiety Smoking Status: Former smoker Past Alcohol Use History: None Reported Past Drug Use History: None Reported - Past Family History Father Additional Family Medical History / Comment(s): Father at the age of 68yrs from a ruptured aortic aneurysm. Mother Additional Family Medical History / Comment(s): Mother lived into her 80's. Brother(s) Family Medical History: Cancer Additional Family Medical History / Comment(s): The patient had 3 brothers. One from colon cancer with metastatic disease to the brain. One brother at age 79 from a myocardial infarction. He has 1 brother that is alive with history of skin cancer and diabetes. Sister(s) Additional Family Medical History / Comment(s): The patient is a total of 3 sisters. One in her 80s from myocardial infarction. One sister at age 58 from coronary artery disease and also had a valvular disorder. Patient has one sister alive with diabetes and multiple other medical conditions. Patient has 2 sons and 1 daughter with no major medical problems. General Exam Limitations: no limitations General appearance: alert, in no apparent distress Head exam: Present: atraumatic, normocephalic, normal inspection Eye exam: Present: normal appearance, PERRL, EOMI. Absent: scleral icterus, conjunctival injection, periorbital swelling ENT exam: Present: normal exam, mucous membranes moist Neck exam: Present: normal inspection, full ROM. Absent: tenderness, meningismus, lymphadenopathy Respiratory exam: Present: normal lung sounds bilaterally. Absent: respiratory distress, wheezes, rales, rhonchi, stridor Cardiovascular Exam: Present: regular rate, normal rhythm, normal heart sounds. Absent: systolic murmur, diastolic murmur, rubs, gallop, clicks GI/Abdominal exam: Present: soft, tenderness (Minimal epigastric tenderness noted.), normal bowel sounds. Absent: distended, guarding, rebound, rigid Course Vital Signs 01/04/20 01/04/20 11:24 13:26 Temperature 98.7 F 98.5 F Pulse Rate 83 73 Respiratory 20 18 Rate Blood Pressure 161/84 152/80 O2 Sat by Pulse 98 95 Oximetry Medical Decision Making - Medical Decision Making Vitals are stable. HPI is documented. Physical exam does reveal minimal epigastric tenderness. CBC unremarkable. CMP shows mild hypokalemia with a potassium of 3.1. Patient has a history of hypokalemia. X-ray KUB was obtained which showed an overall obstructive bowel gas pattern. No pneumoperitoneum. Patient was given several different medications including morphine, Zofran, Pepcid, GI cocktail, Dilaudid, Benadryl to tolerate any oral intake. At this time patient does not feel he is well enough for discharge home. Dr. Swenson will be speaking with Dr. Armando. - Lab Data Result diagrams: 01/05/20 11:31 01/05/20 11:31 Lab Results 01/04/20 01/04/20 Range/Units 12:55 12:55 WBC 8.6 (3.8-10.6) k/uL RBC 4.53 (4.30-5.90) m/uL Hgb 14.4 (13.0-17.5) gm/dL Hct 42.8 (39.0-53.0) % MCV 94.5 (80.0-100.0) fL MCH 31.7 (25.0-35.0) pg MCHC 33.5 (31.0-37.0) g/dL RDW 12.0 (11.5-15.5) % Plt Count 381 (150-450) k/uL Neutrophils % 64 % Lymphocytes % 24 % Monocytes % 6 % Eosinophils % 3 % Basophils % 1 % Neutrophils # 5.5 (1.3-7.7) k/uL Lymphocytes # 2.1 (1.0-4.8) k/uL Monocytes # 0.6 (0-1.0) k/uL Eosinophils # 0.2 (0-0.7) k/uL Basophils # 0.1 (0-0.2) k/uL Sodium 135 L (137-145) mmol/L Potassium 3.1 L (3.5-5.1) mmol/L Chloride 102 (98-107) mmol/L Carbon Dioxide 23 (22-30) mmol/L Anion Gap 10 mmol/L BUN 5 L (9-20) mg/dL Creatinine 0.71 (0.66-1.25) mg/dL Est GFR (CKD-EPI)AfAm >90 (>60 ml/min/1.73 sqM) Est GFR (CKD-EPI)NonAf >90 (>60 ml/min/1.73 sqM) Glucose 112 H (74-99) mg/dL Calcium 8.9 (8.4-10.2) mg/dL Total Bilirubin 0.4 (0.2-1.3) mg/dL AST 26 (17-59) U/L ALT 12 (4-49) U/L Alkaline Phosphatase 80 (38-126) U/L Total Protein 6.9 (6.3-8.2) g/dL Albumin 4.1 (3.5-5.0) g/dL Amylase 44 (30-110) U/L Lipase 124 (23-300) U/L Disposition Clinical Impression: Abdominal pain, Nausea & vomiting, Ulcer Disposition: ADMITTED IP TO THIS [facility] Is patient prescribed a controlled substance at d/c from ED?: No Time of Disposition: 14:57
[2020-01-04] MEDS ORDERED: NALOXONE 0.4 MG/ML 1 ML VIAL IV PRN (14:53)
[2020-01-04] MEDS: SODIUM CHLORIDE 0.9% 1,000 ML IV SCH (15:22)
[2020-01-04] MEDS ORDERED: HYDROcodone/APAP 5-325MG 1 EACH TAB PO PRN (17:30)
[2020-01-04] MEDS ORDERED: ACETAMINOPHEN TAB 325 MG TAB PO PRN (17:30)
[2020-01-04] MEDS ORDERED: BUTALB/APAP/CAFF 50-325-40MG TAB PO PRN (17:30)
[2020-01-04] MEDS ORDERED: ONDANSETRON ODT 4 MG TAB PO PRN (17:30)
[2020-01-04] MEDS: SUCRALFATE 1 GM TAB PO SCH ×2 (18:03→20:48)
[2020-01-04] MEDS: PANTOPRAZOLE 40 MG TABLET PO SCH (18:03)
[2020-01-04] MEDS: LIDOCAINE VISCOUS 300 MG/15 ML CUP MUCOUS MEM SCH (18:04)
[2020-01-04] MEDS: HYDROmorphone 0.5 MG/0.5 ML SYRINGE IVP PRN ×2 (18:18→22:11)
[2020-01-04] MEDS: ONDANSETRON 4 MG/2 ML VIAL IVP PRN (18:19)
[2020-01-04] MEDS: GABAPENTIN 300 MG CAP PO SCH (20:49)
[2020-01-04] MEDS: LATANOPROST 0.005% OPHTH DROPS 2.5 ML BTL LEFT EYE SCH (20:49)
[2020-01-04] MEDS: diazePAM 5 MG TAB PO SCH (20:49)
[2020-01-04] MEDS: DICYCLOMINE 10 MG CAP PO SCH (20:49)
[2020-01-04] MEDS: METOPROLOL TARTRATE 25 MG TAB PO SCH (20:49)
[2020-01-04] MEDS: SODIUM CHLORIDE TAB 1 GM TAB PO SCH (20:49)
[2020-01-04] MEDS: SIMVASTATIN 40 MG PO SCH (20:50)
[2020-01-04] MEDS: DORZOLAMIDE-TIMOLOL 2.23%/0.68 10ML BTL LEFT EYE SCH (20:50)
[2020-01-04] MEDS: BRIMONIDINE TARTRATE 0.2% DROPS 5 ML BTL LEFT EYE SCH (20:50)
--- NOTE | 2020-01-04 21:22 | P.HPIM ---
History of Present Illness H&P Date: 01/04/20 Chief Complaint: Severe epigastric pain, severe dysphagia, odynophagia, weight loss 69-year-old male one of Dr. Harrison's patient with history of CAD, hypertension, hyperlipidemia with history of CAD post PCI and stent placement in the past with history of myocardial infarction as well who is known to have history of severe do dental structure along with severe esophagitis recent history of admission for dysphagia with EGD and biopsy showed multiple ulceration of the lower part of the esophagus biopsy came back negative for Helicobacter pylori also negative for Parham esophagus and cancer. Patient apparently could not swallow 8 or drink not able to tolerate his medication has been having persistent nausea and vomiting with severe dysphagia and odynophagia not been able to tolerate any food. Ended up coming to the emergency department will be hospitalized and will probably need PEG tube to rest his esophagus and stomach for the next few weeks till it heal from severe narrowing and structure abnormality along with esophagitis. Patient will continue PPI along with Carafate will consult gastroenterology continue IV hydration for now and if needed TPN Review of Systems CONSTITUTIONAL: Well-developed no acute respiratory distress. EYES: No icterus sclerae, no conjunctivitis. EARS, NOSE, MOUTH, THROAT, and FACE: No sore throat, lymphadenopathy, carotid bruits or deformity. RESPIRATORY: Mild shortness of breath no cough wheezes. CARDIOVASCULAR: Positive PND or troponin palpitation no angina. GASTROINTESTINAL: Recurrent abdominal pain with epigastric pain nausea and vomiting with odynophagia and severe pain with swallowing. GENITOURINARY: Negative for Hematuria or UTI, no kidney stones. INTEGUMENT/BREAST: Negative for any muscular injury with mild osteoarthritis.. HEMATOLOGIC/LYMPHATIC: Negative for bleed or purpura. MUSCULOSKELTAL: Negative for Myalgia or arthralgia. NEURLOGICAL: No LOC, Sz or syncope, blurred vision dizziness or abnormality.. BEHAVIORAL/PSYCH: Negative. ENDOCRINE: Negative. Past Medical History Past Medical History: Coronary Artery Disease (CAD), Chest Pain / Angina, Eye Disorder, GERD/Reflux, Hyperlipidemia, Hypertension, Myocardial Infarction (PR), Osteoarthritis (OA) Additional Past Medical History / Comment(s): NVD recently, Neck pain, SVT with ablation, duodenal ulcers, chronic duodenal stricture, bilateral glaucoma, sinusitis, migraines, anemia, esophagitis,hiatal hernia, chronic back pain, past fx ribs/sternum Last Myocardial Infarction Date:: 1999 History of Any Multi-Drug Resistant Organisms: None Reported Past Surgical History: Cardiac Ablation, Cholecystectomy, Heart Catheterization With Stent Additional Past Surgical History / Comment(s): stent right eye 03/2018, PCI with 3 stents, sinus surgery, cataracts bilaterally with lens implants, EGDs/colonoscopies, Past Anesthesia/Blood Transfusion Reactions: No Reported Reaction Additional Past Anesthesia/Blood Transfusion Reaction / Comment(s): Pt has had past multiple transfusions without reaction. Date of Last Stent Placement:: 1999 Past Psychological History: Anxiety Smoking Status: Former smoker Past Alcohol Use History: None Reported Past Drug Use History: None Reported - Past Family History Father Additional Family Medical History / Comment(s): Father at the age of 68yrs from a ruptured aortic aneurysm. Mother Additional Family Medical History / Comment(s): Mother lived into her 80's. Brother(s) Family Medical History: Cancer Additional Family Medical History / Comment(s): The patient had 3 brothers. One from colon cancer with metastatic disease to the brain. One brother at age 79 from a myocardial infarction. He has 1 brother that is alive with history of skin cancer and diabetes. Sister(s) Additional Family Medical History / Comment(s): The patient is a total of 3 sisters. One in her 80s from myocardial infarction. One sister at age 58 from coronary artery disease and also had a valvular disorder. Patient has one sister alive with diabetes and multiple other medical conditions. Patient has 2 sons and 1 daughter with no major medical problems. Medications and Allergies Home Medications Medication Instructions Recorded Confirmed Type Simvastatin [Zocor] 40 mg PO HS 07/12/13 01/04/20 History Pantoprazole Sodium 40 mg PO BID 06/26/16 01/04/20 History Dicyclomine [Bentyl] 10 mg PO TID 06/04/17 01/04/20 History Dorzolamide-Timol 2.23%/0.68% 1 drop LEFT EYE BID 01/27/18 01/04/20 History [Cosopt] Sodium Chloride Tab 1 gm PO BID 01/27/18 01/04/20 History Gabapentin [Neurontin] 300 mg PO TID 04/26/18 01/04/20 History Latanoprost [Xalatan 0.005%] 1 drop LEFT EYE HS 09/20/18 01/04/20 History Losartan Potassium 100 mg PO DAILY 09/20/18 01/04/20 History Metoprolol Tartrate [Lopressor] 25 mg PO BID 09/20/18 01/04/20 History Ondansetron [Zofran ODT] 4 mg PO BID PRN 09/20/18 01/04/20 History Butalb/APAP/Caff 50-325-40Mg 2 tab PO Q6H PRN MDD 3caps/24hr 10/06/18 01/04/20 History [Fioricet 50-325-40] Escitalopram [Lexapro] 10 mg PO DAILY 10/06/18 01/04/20 History Brimonidine Tartrate [Alphagan P 1 drop LEFT EYE BID 12/25/19 01/04/20 History 0.2% Ophth Soln] Cholecalciferol [Vitamin D3 (25 2,000 unit PO DAILY 12/25/19 01/04/20 History Mcg = 1000 Iu)] Diazepam [Valium] 5 mg PO HS 12/25/19 01/04/20 History Furosemide [Lasix] 20 mg PO DAILY 12/25/19 01/04/20 History Potassium Chloride ER [K-Dur 20] 20 meq PO DAILY 12/25/19 01/04/20 History Tadalafil [Cialis] 10 mg PO DAILY 12/25/19 01/04/20 History Testosterone Cypionate 100 mg IM Q14D 12/25/19 01/04/20 History [Depo-Testosterone] Acetaminophen Tab [Tylenol] 650 mg PO Q4H PRN 12/28/19 01/04/20 History Pantoprazole Sodium [Protonix] 40 mg PO AC-BID #60 tablet.dr 12/30/19 01/04/20 Rx Sucralfate [Carafate] 1 gm PO ACHS #1200 ml 12/30/19 01/04/20 Rx lidocaine HCL [Lidocaine HCl 5 ml PO AC-TID #150 solution 12/30/19 01/04/20 Rx Viscous] HYDROcodone/APAP 5-325MG [[place] 1 tab PO Q6H PRN 01/04/20 01/04/20 History 5-325] Allergies Allergy/AdvReac Type Severity Reaction Status Date / Time atorvastatin [From Lipitor] AdvReac MUSCLE Verified 01/04/20 13:32 CRAMPS hydrochlorothiazide AdvReac Nausea & Verified 01/04/20 13:32 Vomiting Physical Exam Vitals: Vital Signs Temp Pulse Resp BP Pulse Ox 01/04/20 13:26 98.5 F 73 18 152/80 95 01/04/20 11:24 98.7 F 83 20 161/84 98 Intake and Output 01/04/20 01/04/20 01/04/20 06:59 14:59 22:59 Other: Weight 86.183 kg General Appearance: Alert, cooperative, no distress, appears stated age. Neck HEENT: Supple, no lymphadenopathy, no thyroid enlargement, no carotid bruits. Lungs: Clear to auscultation without crackles or wheezes no rhonchi, no deformity. Chest Wall: Decrease expansion with deep inspiration no tenderness and no deformity was found on exam, no costochondral pain or discomfort. Heart: Regular rate and rhythm, S1, S2 normal, no murmur, rub or gallop. Back: Symmetric, no curvature, ROM normal, no CVA tenderness. Abdomen: Soft, non-tender, bowel sounds active all four quadrants, mild epigastric pain with no masses no organomegaly. Extremities: Extremities normal, atraumatic, no cyanosis or edema. Pulses: 2+ and symmetric. Skin: Skin color, texture, tugor normal, no rashes or lesions. Neurologic: Alert oriented x3 cranial nerves II through XII intact, no motor deficit, no abnormal balance or gait. Results CBC & Chem 7: 01/04/20 12:55 01/04/20 12:55 Labs: Abnormal Lab Results - Last 24 Hours (Table) 01/04/20 Range/Units 12:55 Sodium 135 L (137-145) mmol/L Potassium 3.1 L (3.5-5.1) mmol/L BUN 5 L (9-20) mg/dL Glucose 112 H (74-99) mg/dL Thrombosis Risk Factor Assmnt - DVT/VTE Prophylaxis DVT/VTE Prophylaxis: Pharmacologic Prophylaxis ordered, Mechanical Prophylaxis ordered Assessment and Plan Assessment: 1 severe dysphagia and odynophagia: With severe esophageal and duodenal structure along with severe lower esophageal ulcer with EGD done last week patient is not doing well with medication not been able to tolerate any food or fluid will consult gastroenterology and plan for PEG tube at this point to keep it on for the next few weeks till the problem resolved after medication with PPI and Carafate continue antinausea medication as well. 2 CAD with recurrent chest pain: Patient is doing well lately with current medication was hospitalized recently with chest pain and to clear by cardiology. Continue losartan along with metoprolol and if needed can add isosorbide. 3 hypertension: Remain on losartan and metoprolol. 4 hyperlipidemia: Continue patient on atorvastatin. 5 chronic depression: Continue patient on Lexapro 10 mg a day also continue Valium as needed. 6 hyponatremia: Much better so far with sodiums above 1:30. 7 Chronic tension/migraine headache: Patient is doing well with this Urised. 8 hypokalemia: Continue potassium replacement. 9 chronic neuropathy: Continue patient on gabapentin 300 mg 3 times a day. 10 severe debility: Secondary to his general condition not been able to eat or drink and sometimes not able to take his medication on time, continue current management pick feeding and axis for food and hydration will be good idea for the next few weeks till his esophagus recover. 11 GI prophylaxis: Continue PPI. 12 DVT prophylaxis: Early mobilization along with knee-high VALENTINE hose. CODE STATUS: Full code. Admit patient to observation status for 1-2 nights stay.
[2020-01-05] MEDS: HYDROmorphone 0.5 MG/0.5 ML SYRINGE IVP PRN ×6 (01:23→20:32)
[2020-01-05] MEDS: ONDANSETRON 4 MG/2 ML VIAL IVP PRN ×3 (01:28→17:38)
[2020-01-05] MEDS: SODIUM CHLORIDE 0.9% 1,000 ML IV SCH ×2 (01:32→18:11)
[2020-01-05] MEDS ORDERED: PANTOPRAZOLE 40 MG/10 ML VIAL IV SCH (09:00)
[2020-01-05] MEDS: DORZOLAMIDE-TIMOLOL 2.23%/0.68 10ML BTL LEFT EYE SCH ×2 (09:18→20:34)
[2020-01-05] MEDS: BRIMONIDINE TARTRATE 0.2% DROPS 5 ML BTL LEFT EYE SCH ×2 (09:18→20:34)
[2020-01-05] MEDS: LIDOCAINE VISCOUS 300 MG/15 ML CUP MUCOUS MEM SCH ×3 (09:19→17:38)
[2020-01-05] MEDS: FUROSEMIDE 20 MG TAB PO SCH (09:26)
[2020-01-05] MEDS: CHOLECALCIFEROL 1,000 UNIT TAB PO SCH (09:26)
[2020-01-05] MEDS: SUCRALFATE 1 GM TAB PO SCH ×4 (09:26→20:32)
[2020-01-05] MEDS: DICYCLOMINE 10 MG CAP PO SCH ×3 (09:27→20:32)
[2020-01-05] MEDS: SODIUM CHLORIDE TAB 1 GM TAB PO SCH ×2 (09:27→20:32)
[2020-01-05] MEDS: LOSARTAN 50 MG TAB PO SCH (09:27)
[2020-01-05] MEDS: GABAPENTIN 300 MG CAP PO SCH ×3 (09:27→20:31)
[2020-01-05] MEDS: ESCITALOPRAM 10 MG TAB PO SCH (09:27)
[2020-01-05] MEDS: METOPROLOL TARTRATE 25 MG TAB PO SCH ×2 (09:28→20:32)
[2020-01-05] MEDS: POTASSIUM CHLORIDE ER 20 MEQ TAB.ER PO SCH (09:28)
[2020-01-05] MEDS: PANTOPRAZOLE 40 MG TABLET PO SCH ×2 (09:28→17:38)
[2020-01-05 11:06] VITALS: BMI 25.7
[2020-01-05 11:58] LABS: HCT 40.8 % (39.0-53.0); MCH 30.9 pg (25.0-35.0); MCHC 31.9 g/dL (31.0-37.0); Mean Platelet Volume 6.2; Platelet Count 343 k/uL (150-450); RDW 12.6 % (11.5-15.5); WBC 7.8 k/uL (3.8-10.6)
[2020-01-05 12:00] LABS: ALT 13 U/L (4-49); AST 29 U/L (17-59); African American GFR (CKD) >90 (>60 ml/min/1.73 sqM); Albumin 3.6 g/dL (3.5-5.0); Alkaline Phosphatase 70 U/L (38-126); Anion Gap 6 mmol/L; Blood Urea Nitrogen 4 mg/dL (9-20); Calcium 8.6 mg/dL (8.4-10.2); Carbon Dioxide 26 mmol/L (22-30); Chloride 108 mmol/L (98-107); Glucose 98 mg/dL (74-99); Non-African American GFR(CKD) >90 (>60 ml/min/1.73 sqM); Potassium 3.6 mmol/L (3.5-5.1); Sodium 140 mmol/L (137-145); Total Bilirubin 0.5 mg/dL (0.2-1.3); Total Protein 6.3 g/dL (6.3-8.2)
--- NOTE | 2020-01-05 12:00 | P.PN ---
Subjective Progress Note Date: 01/05/20 HISTORY OF PRESENT ILLNESS 69-year-old male one of Dr. Harrison's patient with history of CAD, hypertension, hyperlipidemia with history of CAD post PCI and stent placement in the past with history of myocardial infarction as well who is known to have history of severe do dental structure along with severe esophagitis recent history of admission for dysphagia with EGD and biopsy showed multiple ulceration of the lower part of the esophagus biopsy came back negative for Helicobacter pylori also negative for Parham esophagus and cancer. Patient apparently could not swallow 8 or drink not able to tolerate his medication has been having persistent nausea and vomiting with severe dysphagia and odynophagia not been able to tolerate any food. Ended up coming to the emergency department will be hospitalized and will probably need PEG tube to rest his esophagus and stomach for the next few weeks till it heal from severe narrowing and structure abnormality along with esophagitis. Patient will continue PPI along with Carafate will consult gastroenterology continue IV hydration for now and if needed TPN. 01/04: The patient is seen today on the observation unit. He denies any new complaints. He is currently nothing by mouth status for possible PEG tube placement. GI is looking for criteria and insurance coverage for PEG tube placement. Do not anticipate PEG placement today. He has been afebrile, heart rate 78, blood pressure 161/81, pulse ox 97% on room air. Repeat CBC is unremarkable. REVIEW OF SYSTEMS CONSTITUTIONAL: Well-developed no acute respiratory distress. Denies fevers. EYES: No icterus sclerae, no conjunctivitis. EARS, NOSE, MOUTH, THROAT, and FACE: No sore throat, lymphadenopathy, carotid bruits or deformity. RESPIRATORY: Mild shortness of breath no cough wheezes. CARDIOVASCULAR: Positive PND or troponin palpitation no angina. GASTROINTESTINAL: Recurrent abdominal pain with epigastric pain nausea and vomiting with odynophagia and severe pain with swallowing. GENITOURINARY: Negative for Hematuria or UTI, no kidney stones. INTEGUMENT/BREAST: Negative for any muscular injury with mild osteoarthritis.. HEMATOLOGIC/LYMPHATIC: Negative for bleed or purpura. MUSCULOSKELTAL: Negative for Myalgia or arthralgia. NEURLOGICAL: No LOC, Sz or syncope, blurred vision dizziness or abnormality.. BEHAVIORAL/PSYCH: Negative. ENDOCRINE: Negative. PHYSICAL EXAMINATION General Appearance: Alert, cooperative, no distress, appears stated age. Neck HEENT: Supple, no lymphadenopathy, no thyroid enlargement, no carotid bruits. Lungs: Clear to auscultation without crackles or wheezes no rhonchi, no deformity. Chest Wall: Decrease expansion with deep inspiration no tenderness and no deformity was found on exam, no costochondral pain or discomfort. Heart: Regular rate and rhythm, S1, S2 normal, no murmur, rub or gallop. Back: Symmetric, no curvature, ROM normal, no CVA tenderness. Abdomen: Soft, non-tender, bowel sounds active all four quadrants, mild epigastric pain with no masses no organomegaly. Extremities: Extremities normal, atraumatic, no cyanosis or edema. Pulses: 2+ and symmetric. Skin: Skin color, texture, tugor normal, no rashes or lesions. Neurologic: Alert oriented x3 cranial nerves II through XII intact, no motor deficit, no abnormal balance or gait. ASSESSMENT AND PLAN 1 severe dysphagia and odynophagia: With severe esophageal and duodenal structure along with severe lower esophageal ulcer with EGD done last week patient is not doing well with medication not been able to tolerate any food or fluid will consult gastroenterology and plan for PEG tube at this point to keep it on for the next few weeks till the problem resolved after medication with PPI and Carafate continue antinausea medication as well. Consult with GI appreciated. 2 CAD with recurrent chest pain: Patient is doing well lately with current medication was hospitalized recently with chest pain and to clear by cardiology. Continue losartan along with metoprolol and if needed can add isosorbide. 3 hypertension: Remain on losartan and metoprolol. 4 hyperlipidemia: Continue patient on atorvastatin. 5 recurrent depression: Continue patient on Lexapro 10 mg a day also continue Valium as needed. 6 hyponatremia: Much better so far with sodiums above 1:30. 7 Chronic tension/migraine headache: Patient is doing well with this Urised. 8 hypokalemia: Continue potassium replacement. 9 chronic neuropathy: Continue patient on gabapentin 300 mg 3 times a day. 10 severe debility: Secondary to his general condition not been able to eat or drink and sometimes not able to take his medication on time, continue current management pick feeding and axis for food and hydration will be good idea for the next few weeks till his esophagus recover. 11 GI prophylaxis: Continue PPI. 12 DVT prophylaxis: Early mobilization along with knee-high VALENTINE hose. CODE STATUS: Full code. Discharge plan: Home Impression and plan of care have been directed as dictated by the signing physician. Zahra Lainez nurse practitioner acting as scribe for signing physician. Objective - Vital Signs Vital signs: Vital Signs Temp 98.3 F 01/05/20 02:00 Pulse 68 01/05/20 02:00 Resp 16 01/05/20 02:00 BP 159/80 01/05/20 02:00 Pulse Ox 97 01/05/20 02:00 Intake & Output 01/04/20 01/05/20 01/05/20 18:59 06:59 18:59 Output Total 400 Balance -400 Weight 86.183 kg Output: Other 400 Other: Voiding Method Toilet # Voids 1 - Labs CBC & Chem 7: 01/04/20 12:55 01/04/20 12:55 Labs: Abnormal Lab Results - Last 24 Hours (Table) 01/04/20 Range/Units 12:55 Sodium 135 L (137-145) mmol/L Potassium 3.1 L (3.5-5.1) mmol/L BUN 5 L (9-20) mg/dL Glucose 112 H (74-99) mg/dL
[2020-01-05] MEDS: diazePAM 5 MG TAB PO SCH (20:32)
[2020-01-05] MEDS: LATANOPROST 0.005% OPHTH DROPS 2.5 ML BTL LEFT EYE SCH (20:35)
[2020-01-05] MEDS: SIMVASTATIN 40 MG PO SCH (20:36)
--- NOTE | 2020-01-06 06:43 | P.CONS ---
History of Present Illness - Reason for Consult Consult date: 01/05/20 esophagitis Requesting physician: John Armando - Chief Complaint nausea, vomiting, dysphagia - History of Present Illness 69-year-old male with multiple medical comorbidities including esophagitis, benign duodenal stricture, hypertension, hyperlipidemia, coronary artery disease with prior stent placement and CA who presented to the hospital due to complaints of nausea, vomiting, difficulty swallowing and decreased oral intake. The patient was recently seen in the hospital for similar complaints and presented back due to nausea and vomiting which began earlier in the morning prior to presentation. The patient reports that he has not been eating and having difficulty swallowing with pain and the sensation of food sticking. During the patient's last hospitalization he underwentupper endoscopy on 12/30/2019 with multiple punctate ulcerations in the distal esophagus as well as antral gastritis with the biopsy showing chronic gastritis with reactive mucosal changes as well as chemical gastropathy and inflamed mucosa with adherent intramucosal granulocytes and adherent eschar on biopsy of the esophagus. The patient has been on a combination of PPI therapy as well as Carafate. The patient reports a long-standing history of abdominal issues. He has been ashley ated with numerous medications for his symptoms in the past including dicyclomine and amitriptyline. Laboratory evaluation on presentation significant for WBC 7.8, hemoglobin 13, platelet count 343,000. Review of Systems REVIEW OF SYSTEMS: CONSTITUTIONAL: Denies any fevers, chills, weight change or fatigue. CARDIOVASCULAR: Denies any chest pain, palpitations high or low blood pressures, history of coronary artery disease. RESPIRATORY: Denies any shortness of breath, hemoptysis or cough. GENITOURINARY: No dysuria or hematuria. MUSCULOSKELETAL: No weakness reported. SKIN: Denies any new rashes or lesions, jaundice or pallor. PSYCHIATRIC: Denies any depression or anxiety. NEUROLOGY: Denies headache, denies any new focal deficits. EARS/NOSE/THROAT: No recent hearing change, congestion, nasal discharge or sore throat. EYES: No pain in eyes, discharge or change in vision. GASTROINTESTINAL: As per HPI. Past Medical History Past Medical History: Coronary Artery Disease (CAD), Chest Pain / Angina, Eye Disorder, GERD/Reflux, Hyperlipidemia, Hypertension, Myocardial Infarction (CA), Osteoarthritis (OA) Additional Past Medical History / Comment(s): NVD recently, Neck pain, SVT with ablation, duodenal ulcers, chronic duodenal stricture, bilateral glaucoma, s inusitis, migraines, anemia, esophagitis,hiatal hernia, chronic back pain, past fx ribs/sternum Last Myocardial Infarction Date:: 1999 History of Any Multi-Drug Resistant Organisms: None Reported Past Surgical History: Cardiac Ablation, Cholecystectomy, Heart Catheterization With Stent Additional Past Surgical History / Comment(s): stent right eye 03/2018, PCI with 3 stents, sinus surgery, cataracts bilaterally with lens implants, EGDs/colonoscopies, Past Anesthesia/Blood Transfusion Reactions: No Reported Reaction Additional Past Anesthesia/Blood Transfusion Reaction / Comm: Pt has had past multiple transfusions without reaction. Date of Last Stent Placement:: 1999 Past Psychological History: Anxiety Smoking Status: Former smoker Past Alcohol Use History: None Reported Past Drug Use History: None Reported - Past Family History Father Additional Family Medical History / Comment(s): Father at the age of 68yrs from a ruptured aortic aneurysm. Mother Additional Family Medical History / Comment(s): Mother lived into her 80's. Brother(s) Family Medical History: Cancer Additional Family Medical History / Comment(s): The patient had 3 brothers. One from colon cancer with metastatic disease to the brain. One brother at age 79 from a myocardial infarction. He has 1 brother that is alive with history of skin cancer and diabetes. Sister(s) Additional Family Medical History / Comment(s): The patient is a total of 3 sisters. One in her 80s from myocardial infarction. One sister at age 58 from coronary artery disease and also had a valvular disorder. Patient has one sister alive with diabetes and multiple other medical conditions. Patient has 2 sons and 1 daughter with no major medical problems. Medications and Allergies Home Medications Medication Instructions Recorded Confirmed Type Simvastatin [Zocor] 40 mg PO HS 07/12/13 01/04/20 History Pantoprazole Sodium 40 mg PO BID 06/26/16 01/04/20 History Dicyclomine [Bentyl] 10 mg PO TID 06/04/17 01/04/20 History Dorzolamide-Timol 2.23%/0.68% 1 drop LEFT EYE BID 01/27/18 01/04/20 History [Cosopt] Sodium Chloride Tab 1 gm PO BID 01/27/18 01/04/20 History Gabapentin [Neurontin] 300 mg PO TID 04/26/18 01/04/20 History Latanoprost [Xalatan 0.005%] 1 drop LEFT EYE HS 09/20/18 01/04/20 History Losartan Potassium 100 mg PO DAILY 09/20/18 01/04/20 History Metoprolol Tartrate [Lopressor] 25 mg PO BID 09/20/18 01/04/20 History Ondansetron [Zofran ODT] 4 mg PO BID PRN 09/20/18 01/04/20 History Butalb/APAP/Caff 50-325-40Mg 2 tab PO Q6H PRN MDD 3caps/24hr 10/06/18 01/04/20 History [Fioricet 50-325-40] Escitalopram [Lexapro] 10 mg PO DAILY 10/06/18 01/04/20 History Brimonidine Tartrate [Alphagan P 1 drop LEFT EYE BID 12/25/19 01/04/20 History 0.2% Ophth Soln] Cholecalciferol [Vitamin D3 (25 2,000 unit PO DAILY 12/25/19 01/04/20 History Mcg = 1000 Iu)] Diazepam [Valium] 5 mg PO HS 12/25/19 01/04/20 History Furosemide [Lasix] 20 mg PO DAILY 12/25/19 01/04/20 History Potassium Chloride ER [K-Dur 20] 20 meq PO DAILY 12/25/19 01/04/20 History Tadalafil [Cialis] 10 mg PO DAILY 12/25/19 01/04/20 History Testosterone Cypionate 100 mg IM Q14D 12/25/19 01/04/20 History [Depo-Testosterone] Acetaminophen Tab [Tylenol] 650 mg PO Q4H PRN 12/28/19 01/04/20 History Pantoprazole Sodium [Protonix] 40 mg PO AC-BID #60 tablet.dr 12/30/19 01/04/20 Rx Sucralfate [Carafate] 1 gm PO ACHS #1200 ml 12/30/19 01/04/20 Rx lidocaine HCL [Lidocaine HCl 5 ml PO AC-TID #150 solution 12/30/19 01/04/20 Rx Viscous] HYDROcodone/APAP 5-325MG [[place] 1 tab PO Q6H PRN 01/04/20 01/04/20 History 5-325] Allergies Allergy/AdvReac Type Severity Reaction Status Date / Time atorvastatin [From Lipitor] AdvReac MUSCLE Verified 01/04/20 13:32 CRAMPS hydrochlorothiazide AdvReac Nausea & Verified 01/04/20 13:32 Vomiting Physical Exam Vitals: Vital Signs Temp Pulse Resp BP Pulse Ox 01/05/20 09:00 98.2 F 78 16 161/81 01/05/20 02:00 98.3 F 68 16 159/80 97 01/04/20 19:41 98.3 F 76 16 159/90 99 Intake and Output 01/04/20 01/05/20 01/05/20 22:59 06:59 14:59 Output Total 400 Balance -400 Output: Other 400 Other: Voiding Method Toilet Toilet Toilet # Voids 1 Weight 86.183 kg 86.183 kg On physical examination, patient appears comfortable in no apparent distress. HEAD: Normocephalic, atraumatic. EYES: No scleral icterus. No conjunctival injection. MOUTH: No lesions, tongue midline. NECK: Trachea midline, no gross abnormalities. CHEST: Clear to auscultation with no wheezing or rhonchi appreciated. HEART: Regular rate and rhythm. ABDOMEN: Soft, nontender to palpation. Bowel sounds are positive. No organomegaly. No guarding or rigidity. EXTREMITIES: No pedal edema. SKIN: No rashes, no jaundice. NEUROLOGIC: Alert and oriented x3. No focal deficits. Results CBC & Chem 7: 01/05/20 11:31 01/05/20 11:31 Labs: Abnormal Lab Results - Last 24 Hours (Table) 01/05/20 01/05/20 Range/Units 11: 11:31 RBC 4.20 L (4.30-5.90) m/uL Chloride 108 H (98-107) mmol/L BUN 4 L (9-20) mg/dL Abdominal x-ray: report reviewed (nonobstructive bowel gas pattern on abdominal x-ray) Assessment and Plan (1) Esophageal ulcer without bleeding Narrative/Plan: 69-year-old male with multiple medical comorbidities presenting to the hospital due to nausea, vomiting, abdominal pain, decreased oral intake and difficulty swallowing. The patient symptoms have been going on for the past few weeks and he was recently seen in the hospital where he underwent EGD on 12/30/2019 with multiple punctate ulcerations in the distal esophagus and antral gastritis with biopsies of the distal esophagus showing inflamed mucosa with abundant intramucosal granulocytes and adherent eschar. Hemoglobin normal on presentation at 13. The patient reports being treated with PPI therapy and Carafate at home. Current Visit: Yes Status: Acute Code(s): K22.10 - ULCER OF ESOPHAGUS WITHOUT BLEEDING SNOMED Code(s): 98679324 (2) Abdominal pain Current Visit: Yes Status: Acute Code(s): R10.9 - UNSPECIFIED ABDOMINAL PAIN SNOMED Code(s): 75715236 (3) Nausea & vomiting Current Visit: Yes Status: Acute Code(s): R11.2 - NAUSEA WITH VOMITING, UNSPECIFIED SNOMED Code(s): 40790487 (4) Duodenal stricture Current Visit: No Status: Acute Code(s): K31.5 - OBSTRUCTION OF DUODENUM SNOMED Code(s): 59843842 (5) GERD (gastroesophageal reflux disease) Current Visit: No Status: Acute Code(s): K21.9 - GASTRO-ESOPHAGEAL REFLUX DISEASE WITHOUT ESOPHAGITIS SNOMED Code(s): 890507142 Plan: supportive care Clear liquid diet, advance diet as tolerated Continue Protonix twice a day Continue Carafate Other medical management per primary team manager long term care asked to investigate coverage for PEG tube placement Further recommendations pending above and clinical course Thank you for allowing us to participate in the care of the patient we will continue to follow
[2020-01-06 07:50] VITALS: RESP 14; TEMP 98.3
[2020-01-06] MEDS: SODIUM CHLORIDE 0.9% 1,000 ML IV SCH (07:51)
[2020-01-06] MEDS: FUROSEMIDE 20 MG TAB PO SCH (07:55)
[2020-01-06] MEDS: METOPROLOL TARTRATE 25 MG TAB PO SCH (07:55)
[2020-01-06] MEDS: GABAPENTIN 300 MG CAP PO SCH (07:55)
[2020-01-06] MEDS: CHOLECALCIFEROL 1,000 UNIT TAB PO SCH (07:55)
[2020-01-06] MEDS: LOSARTAN 50 MG TAB PO SCH (07:55)
[2020-01-06] MEDS: PANTOPRAZOLE 40 MG TABLET PO SCH (07:55)
[2020-01-06] MEDS: POTASSIUM CHLORIDE ER 20 MEQ TAB.ER PO SCH (07:55)
[2020-01-06] MEDS: LIDOCAINE VISCOUS 300 MG/15 ML CUP MUCOUS MEM SCH ×2 (07:56→11:46)
[2020-01-06] MEDS: SODIUM CHLORIDE TAB 1 GM TAB PO SCH (07:56)
[2020-01-06] MEDS: SUCRALFATE 1 GM TAB PO SCH ×2 (07:56→11:47)
[2020-01-06] MEDS: DICYCLOMINE 10 MG CAP PO SCH (07:57)
[2020-01-06] MEDS: BRIMONIDINE TARTRATE 0.2% DROPS 5 ML BTL LEFT EYE SCH (07:57)
[2020-01-06] MEDS: ESCITALOPRAM 10 MG TAB PO SCH (07:57)
[2020-01-06 07:58] VITALS: BP 158/86; PULSE 82
[2020-01-06] MEDS: DORZOLAMIDE-TIMOLOL 2.23%/0.68 10ML BTL LEFT EYE SCH (08:03)
--- NOTE | 2020-01-06 11:12 | P.DS ---
Providers Date of admission: 01/04/20 14:53 Expected date of discharge: 01/06/20 Attending physician: John Armando Consults: 01/04/20 14:54 Consult Physician Routine Consulting Provider: Leyla Subramanian Consult Reason/Comments: intractable pain, esophagitis, ulcers Do you want consulting provider notified?: Yes Primary care physician: Pop Castaneda MD Hospital Course: 69-year-old male one of Dr. Harrison's patient with history of CAD, hypertension, hyperlipidemia with history of CAD post PCI and stent placement in the past with history of myocardial infarction as well who is known to have history of severe do dental structure along with severe esophagitis recent history of admission for dysphagia with EGD and biopsy showed multiple ulceration of the lower part of the esophagus biopsy came back negative for Helicobacter pylori also negative for [place] esophagus and cancer. Patient apparently could not swallow 8 or drink not able to tolerate his medication has been having persistent nausea and vomiting with severe dysphagia and odynophagia not been able to tolerate any food. Ended up coming to the emergency department will be hospitalized and will probably need PEG tube to rest his esophagus and stomach for the next few weeks till it heal from severe narrowing and structure abnormality along with esophagitis. Patient will continue PPI along with Carafate will consult gastroenterology continue IV hydration for now and if needed TPN 01/04: The patient is seen today on the observation unit. He denies any new complaints. He is currently nothing by mouth status for possible PEG tube placement. GI is looking for criteria and insurance coverage for PEG tube placement. Do not anticipate PEG placement today. He has been afebrile, heart rate 78, blood pressure 161/81, pulse ox 97% on room air. Repeat CBC is unremarkable. 01/05: Patient was seen by speech therapy and oral pharyngeal swallow was within functional limit. No origin treatment by speech therapy. GI is not planning for any intervention. Patient is agreeable that he does not want to go through with PEG tube. He does state that he is swallowing better today. He denies having any nausea or vomiting. He would like to go home. Biopsy from December 29 obtained during EGD revealed gastric antrum biopsy with chronic gastritis with reactive mucosal changes including foveolar hyperplasia suggestive of chemical gastropathy. H. pylori not identified. Esophageal ulcer biopsy revealed inflamed squamous esophageal mucosa with abundant intramucosal granulocytes and granulation tissue with adherent eschar. Stains were negative for fungal organisms. Patient will be discharged home today in stable condition. ASSESSMENT AND PLAN 1 severe dysphagia and odynophagia secondary to esophageal ulcerations 2 CAD with recurrent chest pain 3 hypertension 4 hyperlipidemia 5 recurrent depression: 6 hyponatremia 7 Chronic tension/migraine headache 8 hypokalemia 9 chronic neuropathy 10 severe debility Discharge plan: Home Impression and plan of care have been directed as dictated by the signing physician. Zahra Lainez nurse practitioner acting as scribe for signing physician. Patient Condition at Discharge: Good Plan - Discharge Summary New Discharge Prescriptions: Continue Simvastatin [Zocor] 40 mg PO HS Pantoprazole Sodium 40 mg PO BID Dicyclomine [Bentyl] 10 mg PO TID Sodium Chloride Tab 1 gm PO BID Dorzolamide-Timol 2.23%/0.68% [Cosopt] 1 drop LEFT EYE BID Gabapentin [Neurontin] 300 mg PO TID Metoprolol Tartrate [Lopressor] 25 mg PO BID Ondansetron [Zofran ODT] 4 mg PO BID PRN PRN Reason: Nausea Losartan Potassium 100 mg PO DAILY Latanoprost [Xalatan 0.005%] 1 drop LEFT EYE HS Escitalopram [Lexapro] 10 mg PO DAILY Butalb/APAP/Caff 50-325-40Mg [Fioricet 50-325-40] 2 tab PO Q6H PRN MDD 3caps/24hr PRN Reason: Migraine Headache Cholecalciferol [Vitamin D3 (25 Mcg = 1000 Iu)] 2,000 unit PO DAILY Brimonidine Tartrate [Alphagan P 0.2% Ophth Soln] 1 drop LEFT EYE BID Potassium Chloride ER [K-Dur 20] 20 meq PO DAILY Furosemide [Lasix] 20 mg PO DAILY Tadalafil [Cialis] 10 mg PO DAILY Diazepam [Valium] 5 mg PO HS Testosterone Cypionate [Depo-Testosterone] 100 mg IM Q14D Acetaminophen Tab [Tylenol] 650 mg PO Q4H PRN PRN Reason: Pain lidocaine HCL [Lidocaine HCl Viscous] 5 ml PO AC-TID #150 solution Pantoprazole Sodium [Protonix] 40 mg PO AC-BID #60 tablet. Sucralfate [Carafate] 1 gm PO ACHS #1200 ml HYDROcodone/APAP 5-325MG [[place] 5-325] 1 tab PO Q6H PRN PRN Reason: Pain Discharge Medication List Simvastatin [Zocor] 40 mg PO HS 07/12/13 [History] Pantoprazole Sodium 40 mg PO BID 06/26/16 [History] Dicyclomine [Bentyl] 10 mg PO TID 06/04/17 [History] Dorzolamide-Timol 2.23%/0.68% [Cosopt] 1 drop LEFT EYE BID 01/27/18 [History] Sodium Chloride Tab 1 gm PO BID 01/27/18 [History] Gabapentin [Neurontin] 300 mg PO TID 04/26/18 [History] Latanoprost [Xalatan 0.005%] 1 drop LEFT EYE HS 09/20/18 [History] Losartan Potassium 100 mg PO DAILY 09/20/18 [History] Metoprolol Tartrate [Lopressor] 25 mg PO BID 09/20/18 [History] Ondansetron [Zofran ODT] 4 mg PO BID PRN 09/20/18 [History] Butalb/APAP/Caff 50-325-40Mg [Fioricet 50-325-40] 2 tab PO Q6H PRN MDD 3c aps/24hr 10/06/18 [History] Escitalopram [Lexapro] 10 mg PO DAILY 10/06/18 [History] Brimonidine Tartrate [Alphagan P 0.2% Oph Soln] 1 drop LEFT EYE BID 12/25/19 [History] Cholecalciferol [Vitamin D3 (25 Mcg = 1000 Iu)] 2,000 unit PO DAILY 12/25/19 [History] Diazepam [Valium] 5 mg PO HS 12/25/19 [History] Furosemide [Lasix] 20 mg PO DAILY 12/25/19 [History] Potassium Chloride ER [K-Dur 20] 20 meq PO DAILY 12/25/19 [History] Tadalafil [Cialis] 10 mg PO DAILY 12/25/19 [History] Testosterone Cypionate [Depo-Testosterone] 100 mg IM Q14D 12/25/19 [History] Acetaminophen Tab [Tylenol] 650 mg PO Q4H PRN 12/28/19 [History] Pantoprazole Sodium [Protonix] 40 mg PO AC-BID #60 tablet.dr 12/30/19 [Rx] Sucralfate [Carafate] 1 gm PO ACHS #1200 ml 12/30/19 [Rx] lidocaine HCL [Lidocaine HCl Viscous] 5 ml PO AC-TID #150 solution 12/30/19 [Rx] HYDROcodone/APAP 5-325MG [[place] 5-325] 1 tab PO Q6H PRN 01/04/20 [History] Follow up Appointment(s)/Referral(s): Pop Castaneda MD [Primary Care Provider] - 1-2 days Leyla Subramanian MD [STAFF PHYSICIAN] - 1 Week ( reports appointment is already made ) Patient Instructions/Handouts: Esophagitis (DC) Activity/Diet/Wound Care/Special Instructions: activity as tolerated dysphagia chopped diet
--- NOTE | 2020-01-06 12:52 | P.PN ---
Subjective Progress Note Date: 01/06/20 Principal diagnosis: Nausea, vomiting, dysphagia, esophagitis The patient was seen sitting up in bed and did not appear in any acute distress. He states he is feeling better overall. Denies any more vomiting. States the epigastric pain has improved. He is tolerating a clear liquid diet and is being advanced to a soft Diet for lunch. Patient by speech therapy for swallowing evaluation was state no oral pharyngeal swallow was within functional limits. The treatment per speech therapy. The patient states he is not interested in a PEG tube placement at this time and symptoms are improving. Objective - Vital Signs Vital signs: Vital Signs Temp 98.3 F 01/06/20 07:49 Pulse 82 01/06/20 07:58 Resp 14 01/06/20 07:49 BP 158/86 01/06/20 07:58 Pulse Ox 98 01/06/20 07:49 Intake & Output 01/05/20 01/06/20 01/06/20 18:59 06:59 18:59 Weight 86.183 kg Other: Voiding Method Toilet Toilet Toilet # Voids 1 1 1 - Exam General appearance: The patient is alert, oriented, in no acute distress. HET: Head is normocephalic and atraumatic. Conjunctiva pink. Sclera anicteric. Neck: Supple without lymphadenopathy. Abdomen: Soft, mild epigastric tenderness, nondistended with bowel sounds. No guarding or rigidity. Extremities: Normal skin color and turgor. No pedal edema Neurological: No focal deficits. Alert and oriented 3. - Labs CBC & Chem 7: 01/05/20 11:31 01/05/20 11:31 Assessment and Plan (1) Esophageal ulcer without bleeding Narrative/Plan: 69-year-old male with multiple medical comorbidities presenting to the hospital due to nausea, vomiting, abdominal pain, decreased oral intake and difficulty swallowing. The patient symptoms have been going on for the past few weeks and he was recently seen in the hospital where he underwent EGD on 12/30/2019 with multiple punctate ulcerations in the distal esophagus and antral gastritis with biopsies of the distal esophagus showing inflamed mucosa with abundant intramucosal granulocytes and adherent eschar. Hemoglobin normal on presentati on at 13. The patient reports being treated with PPI therapy and Carafate at home. The patient was seen by speech therapy for swallowing evaluation that states was within normal limits. Symptoms are improved. Patient will be discharged home with follow-up. Current Visit: Yes Status: Acute Code(s): K22.10 - ULCER OF ESOPHAGUS WITHOUT BLEEDING SNOMED Code(s): 37663661 (2) Abdominal pain Current Visit: Yes Status: Acute Code(s): R10.9 - UNSPECIFIED ABDOMINAL PAIN SNOMED Code(s): 48956154 (3) Nausea & vomiting Current Visit: Yes Status: Acute Code(s): R11.2 - NAUSEA WITH VOMITING, UNSPECIFIED SNOMED Code(s): 01806015 (4) Duodenal stricture Current Visit: No Status: Acute Code(s): K31.5 - OBSTRUCTION OF DUODENUM SNOMED Code(s): 86439271 (5) GERD (gastroesophageal reflux disease) Current Visit: No Status: Acute Code(s): K21.9 - GASTRO-ESOPHAGEAL REFLUX DISEASE WITHOUT ESOPHAGITIS SNOMED Code(s): 387783760 Plan: supportive care advance diet as tolerated Continue Protonix twice a day Continue Carafate Other medical management per primary team Agree that patient may be discharged home with outpatient follow-up with Dr. Subramanian. Patient has upcoming scheduled appointment. Patient is agreeable with plan of care. Thank you for allowing us to participate in the care of the patient we will continue to follow
== END 2020-01-06 13:38 | disposition home or self-care (01) ==
LOC: EC 11:21 → 1SOBS 14:53
PROVIDERS: ADMIT Internal Medicine Geriatric Medicine; ATTEND Internal Medicine Geriatric Medicine
DX: K22.10 Ulcer of esophagus without bleeding (principal); K31.5 Obstruction of duodenum; K22.2 Esophageal obstruction; K29.50 Unspecified chronic gastritis without bleeding; K31.9 Disease of stomach and duodenum, unspecified; K21.9 Gastro-esophageal reflux disease without esophagitis; I25.10 Atherosclerotic heart disease of native coronary artery without angina pectoris; I10 Essential (primary) hypertension; E78.5 Hyperlipidemia, unspecified; F33.9 Major depressive disorder, recurrent, unspecified; E87.1 Hypo-osmolality and hyponatremia; G43.909 Migraine, unspecified, not intractable, without status migrainosus; G44.209 Tension-type headache, unspecified, not intractable; E87.6 Hypokalemia; G62.89 Other specified polyneuropathies; R53.81 Other malaise; H40.9 Unspecified glaucoma; I25.2 Old myocardial infarction; M19.90 Unspecified osteoarthritis, unspecified site; I47.1 Supraventricular tachycardia; K44.9 Diaphragmatic hernia without obstruction or gangrene; G89.29 Other chronic pain; M54.9 Dorsalgia, unspecified; F41.9 Anxiety disorder, unspecified; Z87.11 Personal history of peptic ulcer disease; Z87.19 Personal history of other diseases of the digestive system; Z79.899 Other long term (current) drug therapy; Z79.890 Hormone replacement therapy; Z79.891 Long term (current) use of opiate analgesic; Z88.8 Allergy status to other drugs, medicaments and biological substances; Z87.09 Personal history of other diseases of the respiratory system; Z86.2 Personal history of diseases of the blood and blood-forming organs and certain disorders involving the immune mechanism; Z87.81 Personal history of (healed) traumatic fracture; Z98.890 Other specified postprocedural states; Z90.49 Acquired absence of other specified parts of digestive tract; Z95.5 Presence of coronary angioplasty implant and graft; Z96.89 Presence of other specified functional implants; Z98.41 Cataract extraction status, right eye; Z98.42 Cataract extraction status, left eye; Z96.1 Presence of intraocular lens; Z87.891 Personal history of nicotine dependence; Z82.49 Family history of ischemic heart disease and other diseases of the circulatory system; Z80.0 Family history of malignant neoplasm of digestive organs; Z80.8 Family history of malignant neoplasm of other organs or systems; Z83.3 Family history of diabetes mellitus
CPT/HCPCS: 96361 ×2; 96376 ×3; 96374; 96375; 99285; 36415; 92610; 80053 ×2; 82150; 83690; 85025; 85027; 74018; G0378 ×3; J2270; J1200; J2765; J2405 ×2; J1170 ×2

== ENCOUNTER 2020-05-17 11:30 | Emergency (ER) | payer MEDICARE ==
[2020-05-17 11:36] VITALS: TEMP 98
[2020-05-17] MEDS ORDERED: SODIUM CHLORIDE 0.9% 1,000 ML IV ONE (12:19)
--- NOTE | 2020-05-17 12:22 | ED ---
General Adult HPI - General Chief complaint: Headache Stated complaint: N/V/D, headache Time Seen by Provider: 05/17/20 11:30 Source: patient, RN notes reviewed, old records reviewed Mode of arrival: ambulatory Limitations: no limitations - History of Present Illness Initial comments: This is a 69-year-old male who presents emergency department with past medical history significant for migraine headaches. Patient states today's headache started a couple days ago and it is been in the occipital region of his head where he said previous headaches. Patient states early difference today is that he has ringing in the ears which he normally hasn't had in the past. Patient also states that he has nausea and vomiting. Patient denies any fever or chills per patient denies lightheadedness dizziness. Patient denies any numbness or weakness. Patient has any visual disturbances. Patient denies any blood thinners. Patient denies chest pain difficulty breathing shortness of breath. Patient denies any cough. Patient denies abdominal pain patient denies nausea vomiting diarrhea. - Related Data Home Medications Medication Instructions Recorded Confirmed Simvastatin [Zocor] 40 mg PO HS 07/12/13 05/17/20 Pantoprazole Sodium 40 mg PO BID 06/26/16 05/17/20 Dicyclomine [Bentyl] 10 mg PO TID 06/04/17 05/17/20 Dorzolamide-Timol 2.23%/0.68% 1 drop LEFT EYE BID 01/27/18 05/17/20 [Cosopt] Gabapentin [Neurontin] 600 mg PO TID 04/26/18 05/17/20 Latanoprost [Xalatan 0.005%] 1 drop LEFT EYE HS 09/20/18 05/17/20 Losartan Potassium 100 mg PO DAILY 09/20/18 05/17/20 Metoprolol Tartrate [Lopressor] 25 mg PO BID 09/20/18 05/17/20 Ondansetron [Zofran ODT] 4 mg PO BID PRN 09/20/18 05/17/20 Butalb/APAP/Caff 50-325-40Mg 2 tab PO Q6H PRN MDD 3caps/24hr 10/06/18 05/17/20 [Fioricet 50-325-40] Escitalopram [Lexapro] 15 mg PO DAILY 10/06/18 05/17/20 Brimonidine Tartrate [Alphagan P 1 drop LEFT EYE BID 12/25/19 05/17/20 0.2% Ophth Soln] Cholecalciferol [Vitamin D3 (25 2,000 unit PO DAILY 12/25/19 05/17/20 Mcg = 1000 Iu)] Diazepam [Valium] 5 mg PO HS PRN 12/25/19 05/17/20 Furosemide [Lasix] 20 mg PO DAILY 12/25/19 05/17/20 Potassium Chloride ER [K-Dur 20] 20 meq PO DAILY 12/25/19 05/17/20 Testosterone Cypionate 100 mg IM Q14D 12/25/19 05/17/20 [Depo-Testosterone] Acetaminophen Tab [Tylenol] 650 mg PO Q4H PRN 12/28/19 05/17/20 Previous Rx's Medication Instructions Recorded Sucralfate [Carafate] 1 gm PO ACHS #1200 ml 12/30/19 Allergies Allergy/AdvReac Type Severity Reaction Status Date / Time atorvastatin [From Lipitor] AdvReac MUSCLE Verified 05/17/20 12:48 CRAMPS hydrochlorothiazide AdvReac Nausea & Verified 05/17/20 12:48 Vomiting Review of Systems ROS Statement: Those systems with pertinent positive or pertinent negative responses have been documented in the HPI. ROS Other: All systems not noted in ROS Statement are negative. Past Medical History Past Medical History: Coronary Artery Disease (CAD), Chest Pain / Angina, Eye Disorder, GERD/Reflux, Hyperlipidemia, Hypertension, Myocardial Infarction ([place]), Osteoarthritis (OA) Additional Past Medical History / Comment(s): NVD recently, Neck pain, SVT with ablation, duodenal ulcers, chronic duodenal stricture, bilateral glaucoma, sinusitis, migraines, anemia, esophagitis,hiatal hernia, chronic back pain, past fx ribs/sternum Last Myocardial Infarction Date:: 1999 History of Any Multi-Drug Resistant Organisms: None Reported Past Surgical History: Cardiac Ablation, Cholecystectomy, Heart Catheterization With Stent Additional Past Surgical History / Comment(s): stent right eye 03/2018, PCI with 3 stents, sinus surgery, cataracts bilaterally with lens implants, EGDs/colono scopies, Past Anesthesia/Blood Transfusion Reactions: No Reported Reaction Additional Past Anesthesia/Blood Transfusion Reaction / Comment(s): Pt has had past multiple transfusions without reaction. Date of Last Stent Placement:: 1999 Past Psychological History: Anxiety Smoking Status: Former smoker Past Alcohol Use History: None Reported Past Drug Use History: None Reported - Past Family History Father Additional Family Medical History / Comment(s): Father at the age of 68yrs from a ruptured aortic aneurysm. Mother Additional Family Medical History / Comment(s): Mother lived into her 80's. Brother(s) Family Medical History: Cancer Additional Family Medical History / Comment(s): The patient had 3 brothers. One from colon cancer with metastatic disease to the brain. One brother at age 79 from a myocardial infarction. He has 1 brother that is alive with history of skin cancer and diabetes. Sister(s) Additional Family Medical History / Comment(s): The patient is a total of 3 sisters. One in her 80s from myocardial infarction. One sister at age 58 from coronary artery disease and also had a valvular disorder. Patient has one sister alive with diabetes and multiple other medical conditions. Patient has 2 sons and 1 daughter with no major medical problems. General Exam - General Exam Comments Initial Comments: GENERAL: Patient is well-developed and well-nourished. Patient is nontoxic and well- hydrated and is in mild distress. ENT: Neck is soft and supple. No significant lymphadenopathy is noted. Oropharynx is clear. Moist mucous membranes. Neck has full range of motion without eliciting any pain. EYES: The sclera were anicteric and conjunctiva were pink and moist. Extraocular movements were intact and pupils were equal round and reactive to light. Eyelids were unremarkable. PULMONARY: Unlabored respirations. Good breath sounds bilaterally. No audible rales rhonchi or wheezing was noted. CARDIOVASCULAR: There is a regular rate and rhythm without any murmurs gallops or rubs. ABDOMEN: Soft and nontender with normal bowel sounds. SKIN: Skin is clear with no lesions or rashes and otherwise unremarkable. NEUROLOGIC: Patient is alert and oriented x3. Cranial nerves II through XII are grossly intact. Motor and sensory are also intact. Normal speech, volume and content. Symmetrical smile. MUSCULOSKELETAL: Normal extremities with adequate strength and full range of motion. LYMPHATICS: No significant lymphadenopathy is noted PSYCHIATRIC: Normal psychiatric evaluation. Limitations: no limitations Course Vital Signs 05/17/20 05/17/20 11:31 12:35 Temperature 98.0 F Pulse Rate 64 60 Respiratory 18 16 Rate Blood Pressure 133/71 130/61 O2 Sat by Pulse 100 95 Oximetry Medical Decision Making - Medical Decision Making EKG shows sinus bradycardia 58 bpm MI interval 226 QRS is 86 QT interval 4:30 QTC is 422. Patient's EKG shows no ST segment elevation or depression. Patient received droperidol and patient's headache was slightly improved and he was improved with nausea. Patient then received Toradol and Benadryl with only slight improvement and family received a 0.5 mg of Dilaudid and patient's headache was resolved. I spoke with Dr. Armando he wanted the patient to follow-up as an outpatient for the low sodium. - Lab Data Result diagrams: 05/17/20 12:34 05/17/20 12:34 Lab Results 05/17/20 05/17/20 Range/Units 12:34 12:34 WBC 7.3 (3.8-10.6) k/uL RBC 4.83 (4.30-5.90) m/uL Hgb 15.1 (13.0-17.5) gm/dL Hct 42.6 (39.0-53.0) % MCV 88.2 (80.0-100.0) fL MCH 31.2 (25.0-35.0) pg MCHC 35.4 (31.0-37.0) g/dL RDW 12.0 (11.5-15.5) % Plt Count 266 (150-450) k/uL MPV 6.0 Neutrophils % 70 % Lymphocytes % 15 % Monocytes % 10 % Eosinophils % 3 % Basophils % 1 % Neutrophils # 5.1 (1.3-7.7) k/uL Lymphocytes # 1.1 (1.0-4.8) k/uL Monocytes # 0.7 (0-1.0) k/uL Eosinophils # 0.3 (0-0.7) k/uL Basophils # 0.0 (0-0.2) k/uL Sodium 125 L (137-145) mmol/L Potassium 4.0 (3.5-5.1) mmol/L Chloride 92 L (98-107) mmol/L Carbon Dioxide 24 (22-30) mmol/L Anion Gap 9 mmol/L BUN 4 L (9-20) mg/dL Creatinine 0.71 (0.66-1.25) mg/dL Est GFR (CKD-EPI)AfAm >90 (>60 ml/min/1.73 sqM) Est GFR (CKD-EPI)NonAf >90 (>60 ml/min/1.73 sqM) Glucose 105 H (74-99) mg/dL Calcium 9.5 (8.4-10.2) mg/dL Total Bilirubin 0.8 (0.2-1.3) mg/dL AST 74 H (17-59) U/L ALT 71 H (4-49) U/L Alkaline Phosphatase 173 H (38-126) U/L Total Protein 7.2 (6.3-8.2) g/dL Albumin 4.5 (3.5-5.0) g/dL Disposition Clinical Impression: Acute headache, Hyponatremia Disposition: HOME SELF-CARE Condition: Good Instructions (If sedation given, give patient instructions): Hyponatremia (ED), Acute Headache (ED) Additional Instructions: Patient is to be on fluid restrictions 1500 mL a day. Patient is to follow-up with Dr. Castaneda in a few days. Is patient prescribed a controlled substance at d/c from ED?: No Referrals: Pop Castaneda MD [Primary Care Provider] - 1-2 days Time of Disposition: 14:46
[2020-05-17 12:42] LABS: Basophils % (A) 1 %; Eosinophils # (A) 0.3 k/uL (0-0.7); Eosinophils % (A) 3 %; HCT 42.6 % (39.0-53.0); HGB 15.1 gm/dL (13.0-17.5); Lymphocytes # (A) 1.1 k/uL (1.0-4.8); Lymphocytes % (A) 15 %; MCH 31.2 pg (25.0-35.0); MCHC 35.4 g/dL (31.0-37.0); MCV 88.2 fL (80.0-100.0); Monocytes # (A) 0.7 k/uL (0-1.0); Monocytes % (A) 10 %; Neutrophils # (A) 5.1 k/uL (1.3-7.7); Neutrophils % (A) 70 %; Platelet Count 266 k/uL (150-450); RBC 4.83 m/uL (4.30-5.90); WBC 7.3 k/uL (3.8-10.6)
[2020-05-17 12:57] LABS: ALT 71 U/L (4-49); AST 74 U/L (17-59); African American GFR (CKD) >90 (>60 ml/min/1.73 sqM); Albumin 4.5 g/dL (3.5-5.0); Alkaline Phosphatase 173 U/L (38-126); Anion Gap 9 mmol/L; Blood Urea Nitrogen 4 mg/dL (9-20); Calcium 9.5 mg/dL (8.4-10.2); Carbon Dioxide 24 mmol/L (22-30); Chloride 92 mmol/L (98-107); Glucose 105 mg/dL (74-99); Non-African American GFR(CKD) >90 (>60 ml/min/1.73 sqM); Sodium 125 mmol/L (137-145); Total Bilirubin 0.8 mg/dL (0.2-1.3); Total Protein 7.2 g/dL (6.3-8.2)
--- NOTE | 2020-05-17 13:06 | CT ---
EXAMINATION TYPE: CT brain leonorine wo con DATE OF EXAM: 05/17/2020 COMPARISON: None HISTORY: 69-year-old male trauma, Headache, neck pain, dizziness, nausea, vomiting and diarrhea. CT DLP: 1362.6 mGycm Automated exposure control for dose reduction was used. Technique: Examination of the head was done in axial plane without intravenous contrast. Coronal and sagittal reconstructions performed. CT of the cervical spine was obtained in axial plane without intravenous injection of contrast mater ial. Coronal and sagittal reformatted images were obtained from the axial views for evaluation of f ractures, spinal alignment and canal. FINDINGS: Head: There is no evidence of acute intracranial hemorrhage, acute ischemic changes, mass, mass-effect, or extra-axial fluid collection. There is no effacement of cerebral sulci or basal subarachnoid cister ns. There is no hydrocephalus. There is no midline shift. Moreland-white matter distinction is preserv ed. Mild patchy white matter hypodensities in the cerebral hemispheres. Atherosclerotic calcifications wi thin the carotid siphons. Slight rightward nasoseptal deviation. There appears to have an prior FESS. Mastoid air cells well pn eumatized. Cervical spine: No craniocervical junction abnormality, predental space widening, or prevertebral soft tissue swellin g. Degenerative changes of the C1 dens articulation. Moderate degenerative disc disease especially C3 -C5 levels and also at C6-C7. Variable mild narrowing of the spinal canal particularly at C3-C4 and C4-C5 due to disc osteophyte co mplex formation. No acute fracture of the cervical spine. Hypertrophic uncovertebral joint arthropathy. Mild to moderate facet arthropathy. No acute fracture of the cervical spine. Either remote fracture versus chronic ununited ossification center of the right C2 transverse process. Variable moderate to severe neuroforaminal stenoses particularly at C4-C5, C3-C4. Sagittal and coronal reformatted images confirm above findings. COMBINED IMPRESSION: 1. Mild patchy burden of chronic small vessel ischemic disease. No acute intracranial abnormality see n. 2. No fracture or malalignment of the cervical spine. Moderate multilevel spondylotic change.
[2020-05-17] MEDS ORDERED: KETOROLAC 15 MG/ML 1 ML VIAL IVP STA (13:31)
[2020-05-17] MEDS ORDERED: diphenhydrAMINE 50 MG/ML 1 ML VIAL IVP STA (13:31)
[2020-05-17] MEDS ORDERED: HYDROmorphone 0.5 MG/0.5 ML SYRINGE IVP STA (14:21)
[2020-05-17 15:04] VITALS: BP 154/77; PULSE 59; RESP 18
== END 2020-05-17 15:04 | disposition home or self-care (01) ==
LOC: EC 11:30
DX: E87.1 Hypo-osmolality and hyponatremia (principal); R00.1 Bradycardia, unspecified; I10 Essential (primary) hypertension; I25.119 Atherosclerotic heart disease of native coronary artery with unspecified angina pectoris; R11.2 Nausea with vomiting, unspecified; E78.5 Hyperlipidemia, unspecified; K21.9 Gastro-esophageal reflux disease without esophagitis; H40.9 Unspecified glaucoma; G43.909 Migraine, unspecified, not intractable, without status migrainosus; G89.29 Other chronic pain; M54.9 Dorsalgia, unspecified; F41.9 Anxiety disorder, unspecified; I25.2 Old myocardial infarction; Z79.899 Other long term (current) drug therapy; Z79.890 Hormone replacement therapy; Z88.8 Allergy status to other drugs, medicaments and biological substances; Z90.49 Acquired absence of other specified parts of digestive tract; Z87.891 Personal history of nicotine dependence
CPT/HCPCS: 36415; 93005; 80053; 85025; 72125; 70450; 99285; 96374; 96375 ×3; 96361; J1200; J1885; J1170; J1790

== ENCOUNTER 2020-05-25 15:22 | Emergency (ER) | payer MEDICARE ==
[2020-05-25] MEDS ORDERED: SODIUM CHLORIDE 0.9% 1,000 ML IV STA (16:00)
--- NOTE | 2020-05-25 16:06 | ED ---
General Adult HPI - General Stated complaint: N/V/D, weakness Time Seen by Provider: 05/25/20 15:33 - History of Present Illness Initial comments: Dictation was produced using [employer] dictation software. please excuse any grammatical, word or spelling errors. This patient was cared for during a federal and state declared state of emergency secondary to Covid 19 Chief Complaint: 69-year-old male presents to the emergency department for diarrhea and malaise History of Present Illness: 76-year-old male he is uncooperative. He is all egedly brought by EMS. Patient states that his sent him here for weakness diarrhea cramping and abdominal pain. Patient is uncooperative and unreliable historian. States that he doesn't want talk to anyone until he urinates and for his to come back. He reports that last week he got his first set of Covid 19 vaccine. He states he was tested twice for Covid 19 and was negative both ti mes. Chart review shows that patient was here in emergency department 8 days ago. He was seen here for migraine headaches. At that time he was given droperidol, Toradol and Benadryl and Dilaudid for headache treatment. He had a sodium of 125 8 days ago in the ER. Unable to obtain ROS given that patient is uncooperative. PHYSICAL EXAM: General Impression: Alert and oriented x3, not in acute distress HEENT: Normocephalic atraumatic, extra-ocular movements intact, pupils equal and reactive to light bilaterally, mucous membranes moist. Cardiovascular: Heart regular rate and rhythm Chest: Able to complete full sentences, no retractions, no tachypnea Abdomen: abdomen soft, non-tender, non-distended, no organomegaly Musculoskeletal: Pulses present and equal in all extremities, no peripheral edema Motor: no focal deficits noted Neurological: CN II-XII grossly intact, no focal motor or sensory deficits noted Skin: Intact with no visualized rashes Psych: Normal affect and mood ED course: 69-year-old male brought in by EMS for diarrhea, abdominal cramping. is now at the bedside. More history was obtained. reports the patient has been having diarrhea for several weeks now. Patient was seen by primary care physician who ordered stool cultures. They have not gotten the results yet. Patient has been having watery diarrhea. Chart review was performed. Patient had a preliminary stool culture results that does not show a salmonella Shigella, E. coli EKG interpretation: Ventricular rate 93, normal sinus rhythm,. Interval 200, QRS 80, QTc 462. No NH prolongation, no QTC prolongation, no ST or T-wave changes noted. EKG compared to 05/17/2020 showing no changes. Overall, this EKG is unremarkable Laboratory evaluation obtained. CBC, coag panel, remote is unremarkable. Sodium is improved with the level 135. coronavirus is negative. Acute abdom inal series is unremarkable.patient felt like he was too sick to be admitted despite looking well having normal vital signs with benign-appearing laboratory values. He did request that I speak with his primary care physician who is on- call. Case is discussed with Dr. Castaneda who agrees with patient being discharged to follow-up in outpatient clinic in the next couple days. I went to tell patient is being discharged at approximately 6:15 PM. He states he wanted another shot of Dilaudid and an x-ray to see is having some back pain. Lumbar spine x-rays shows no acute processes. There are some degenerative changes. Patient reevaluated at bedside at a proximally 7:35 PM. He is well-appearing resting comfortably. Patient is advised to follow-up with his primary care physician as recommended by Dr. Castaneda patient was prescribed Imodium and anti-nausea medications by his primary care physician. he has all the upper medications currently at home. - Related Data Home Medications Medication Instructions Recorded Confirmed Simvastatin [Zocor] 40 mg PO HS 07/12/13 05/25/20 Pantoprazole Sodium 40 mg PO BID 06/26/16 05/25/20 Dicyclomine [Bentyl] 10 mg PO TID 06/04/17 05/25/20 Dorzolamide-Timol 2.23%/0.68% 1 drop LEFT EYE BID 01/27/18 05/25/20 [Cosopt] Gabapentin [Neurontin] 600 mg PO TID 04/26/18 05/25/20 Latanoprost [Xalatan 0.005%] 1 drop LEFT EYE HS 09/20/18 05/25/20 Losartan Potassium 100 mg PO DAILY 09/20/18 05/25/20 Metoprolol Tartrate [Lopressor] 25 mg PO BID 09/20/18 05/25/20 Ondansetron [Zofran ODT] 4 mg PO BID PRN 09/20/18 05/25/20 Butalb/APAP/Caff 50-325-40Mg 2 tab PO Q6H PRN MDD 3caps/24hr 10/06/18 05/25/20 [Fioricet 50-325-40] Escitalopram [Lexapro] 15 mg PO DAILY 10/06/18 05/25/20 Brimonidine Tartrate [Alphagan P 1 drop LEFT EYE BID 12/25/19 05/25/20 0.2% Ophth Soln] Cholecalciferol [Vitamin D3 (25 2,000 unit PO DAILY 12/25/19 05/25/20 Mcg = 1000 Iu)] Diazepam [Valium] 5 mg PO HS PRN 12/25/19 05/25/20 Furosemide [Lasix] 20 mg PO DAILY 12/25/19 05/25/20 Potassium Chloride ER [K-Dur 20] 20 meq PO DAILY 12/25/19 05/25/20 Testosterone Cypionate 100 mg IM Q14D 12/25/19 05/25/20 [Depo-Testosterone] Acetaminophen Tab [Tylenol] 650 mg PO Q4H PRN 12/28/19 05/25/20 Metoclopramide HCl [Reglan] 10 mg PO TID 05/25/20 05/25/20 Ondansetron [Zofran] 4 mg PO Q12HR PRN 05/25/20 05/25/20 Previous Rx's Medication Instructions Recorded Sucralfate [Carafate] 1 gm PO ACHS #1200 ml 12/30/19 Allergies Allergy/AdvReac Type Severity Reaction Status Date / Time atorvastatin [From Lipitor] AdvReac MUSCLE Verified 05/25/20 16:59 CRAMPS hydrochlorothiazide AdvReac Nausea & Verified 05/25/20 16:59 Vomiting Review of Systems ROS Statement: Those systems with pertinent positive or pertinent negative responses have been documented in the HPI. ROS Other: All systems not noted in ROS Statement are negative. Past Medical History Past Medical History: Coronary Artery Disease (CAD), Chest Pain / Angina, Eye Disorder, GERD/Reflux, Hyperlipidemia, Hypertension, Myocardial Infarction ([place]), Osteoarthritis (OA) Additional Past Medical History / Comment(s): NVD recently, Neck pain, SVT with ablation, duodenal ulcers, chronic duodenal stricture, bilateral glaucoma, sinusitis, migraines, anemia, esophagitis,hiatal hernia, chronic back pain, past fx ribs/sternum Last Myocardial Infarction Date:: 1999 History of Any Multi-Drug Resistant Organisms: None Reported Past Surgical History: Cardiac Ablation, Cholecystectomy, Heart Catheterization With Stent Additional Past Surgical History / Comment(s): stent right eye 03/2018, PCI with 3 stents, sinus surgery, cataracts bilaterally with lens implants, EGDs/colonoscopies, Past Anesthesia/Blood Transfusion Reactions: No Reported Reaction Additional Past Anesthesia/Blood Transfusion Reaction / Comment(s): Pt has had past multiple transfusions without reaction. Date of Last Stent Placement:: 1999 Past Psychological History: Anxiety Smoking Status: Former smoker Past Alcohol Use History: None Reported Past Drug Use History: None Reported - Past Family History Father Additional Family Medical History / Comment(s): Father at the age of 68yrs from a ruptured aortic aneurysm. Mother Additional Family Medical History / Comment(s): Mother lived into her 80's. Brother(s) Family Medical History: Cancer Additional Family Medical History / Comment(s): The patient had 3 brothers. One from colon cancer with metastatic disease to the brain. One brother at age 79 from a myocardial infarction. He has 1 brother that is alive with history of skin cancer and diabetes. Sister(s) Additional Family Medical History / Comment(s): The patient is a total of 3 sisters. One in her 80s from myocardial infarction. One sister at age 58 from coronary artery disease and also had a valvular disorder. Patient has one sister alive with diabetes and multiple other medical conditions. Patient has 2 sons and 1 daughter with no major medical problems. Course Vital Signs 05/25/20 05/25/20 05/25/20 16:02 17:39 18:52 Temperature 98.0 F 98.0 F 98.0 F Pulse Rate 97 100 108 H Respiratory 18 18 18 Rate Blood Pressure 154/82 150/78 161/82 O2 Sat by Pulse 97 96 98 Oximetry Medical Decision Making - Lab Data Result diagrams: 05/25/20 16:50 05/25/20 16:50 Lab Results 05/25/20 05/25/20 05/25/20 Range/Units 16:15 16:50 16:50 WBC 7.3 (3.8-10.6) k/uL RBC 4.86 (4.30-5.90) m/uL Hgb 14.6 (13.0-17.5) gm/dL Hct 43.3 (39.0-53.0) % MCV 89.1 (80.0-100.0) fL MCH 30.0 (25.0-35.0) pg MCHC 33.7 (31.0-37.0) g/dL RDW 12.7 (11.5-15.5) % Plt Count 367 (150-450) k/uL MPV 5.9 Neutrophils % 59 % Lymphocytes % 25 % Monocytes % 9 % Eosinophils % 4 % Basophils % 1 % Neutrophils # 4.4 (1.3-7.7) k/uL Lymphocytes # 1.8 (1.0-4.8) k/uL Monocytes # 0.6 (0-1.0) k/uL Eosinophils # 0.3 (0-0.7) k/uL Basophils # 0.0 (0-0.2) k/uL PT 10.5 (9.0-12.0) sec INR 1.0 (<1.2) APTT 25.6 (22.0-30.0) sec Sodium (137-145) mmol/L Potassium (3.5-5.1) mmol/L Chloride (98-107) mmol/L Carbon Dioxide (22-30) mmol/L Anion Gap mmol/L BUN (9-20) mg/dL Creatinine (0.66-1.25) mg/dL Est GFR (CKD-EPI)AfAm (>60 ml/min/1.73 sqM) Est GFR (CKD-EPI)NonAf (>60 ml/min/1.73 sqM) Glucose (74-99) mg/dL Calcium (8.4-10.2) mg/dL Total Bilirubin (0.2-1.3) mg/dL AST (17-59) U/L ALT (4-49) U/L Alkaline Phosphatase (38-126) U/L Total Protein (6.3-8.2) g/dL Albumin (3.5-5.0) g/dL Lipase (23-300) U/L Coronavirus (PCR) Not Detected (Not Detectd) 03/26/21 Range/Units 16:50 WBC (3.8-10.6) k/uL RBC (4.30-5.90) m/uL Hgb (13.0-17.5) gm/dL Hct (39.0-53.0) % MCV (80.0-100.0) fL MCH (25.0-35.0) pg MCHC (31.0-37.0) g/dL RDW (11.5-15.5) % Plt Count (150-450) k/uL MPV Neutrophils % % Lymphocytes % % Monocytes % % Eosinophils % % Basophils % % Neutrophils # (1.3-7.7) k/uL Lymphocytes # (1.0-4.8) k/uL Monocytes # (0-1.0) k/uL Eosinophils # (0-0.7) k/uL Basophils # (0-0.2) k/uL PT (9.0-12.0) sec INR (<1.2) APTT (22.0-30.0) sec Sodium 135 L (137-145) mmol/L Potassium 3.9 (3.5-5.1) mmol/L Chloride 102 (98-107) mmol/L Carbon Dioxide 23 (22-30) mmol/L Anion Gap 10 mmol/L BUN <2 L (9-20) mg/dL Creatinine 0.65 L (0.66-1.25) mg/dL Est GFR (CKD-EPI)AfAm >90 (>60 ml/min/1.73 sqM) Est GFR (CKD-EPI)NonAf >90 (>60 ml/min/1.73 sqM) Glucose 124 H (74-99) mg/dL Calcium 9.7 (8.4-10.2) mg/dL Total Bilirubin 0.3 (0.2-1.3) mg/dL AST 18 (17-59) U/L ALT 14 (4-49) U/L Alkaline Phosphatase 116 (38-126) U/L Total Protein 6.8 (6.3-8.2) g/dL Albumin 4.3 (3.5-5.0) g/dL Lipase 97 (23-300) U/L Coronavirus (PCR) (Not Detectd) Disposition Clinical Impression: Nausea & vomiting, Diarrhea Disposition: HOME SELF-CARE Condition: Fair Instructions (If sedation given, give patient instructions): Acute Nausea and Vomiting (ED), Acute Diarrhea (ED) Is patient prescribed a controlled substance at d/c from ED?: No Referrals: Pop Castaneda MD [Primary Care Provider] - 1-2 days Time of Disposition: 19:37
[2020-05-25 16:10] VITALS: RESP 18; TEMP 98
[2020-05-25] MEDS ORDERED: HYDROmorphone 1 MG/ML 1 ML SYRINGE IVP STA (16:36)
[2020-05-25 17:02] LABS: Basophils % (A) 1 %; Eosinophils # (A) 0.3 k/uL (0-0.7); Eosinophils % (A) 4 %; HCT 43.3 % (39.0-53.0); HGB 14.6 gm/dL (13.0-17.5); Lymphocytes # (A) 1.8 k/uL (1.0-4.8); Lymphocytes % (A) 25 %; MCHC 33.7 g/dL (31.0-37.0); MCV 89.1 fL (80.0-100.0); Mean Platelet Volume 5.9; Monocytes # (A) 0.6 k/uL (0-1.0); Monocytes % (A) 9 %; Neutrophils # (A) 4.4 k/uL (1.3-7.7); Neutrophils % (A) 59 %; Platelet Count 367 k/uL (150-450); RBC 4.86 m/uL (4.30-5.90); RDW 12.7 % (11.5-15.5); WBC 7.3 k/uL (3.8-10.6)
[2020-05-25 17:11] LABS: Partial Thromboplastin Time 25.6 sec (22.0-30.0); Prothrombin Time 10.5 sec (9.0-12.0)
[2020-05-25 17:18] LABS: ALT 14 U/L (4-49); AST 18 U/L (17-59); African American GFR (CKD) >90 (>60 ml/min/1.73 sqM); Albumin 4.3 g/dL (3.5-5.0); Alkaline Phosphatase 116 U/L (38-126); Anion Gap 10 mmol/L; Blood Urea Nitrogen <2 mg/dL (9-20); Calcium 9.7 mg/dL (8.4-10.2); Carbon Dioxide 23 mmol/L (22-30); Chloride 102 mmol/L (98-107); Glucose 124 mg/dL (74-99); Lipase 97 U/L (23-300); Non-African American GFR(CKD) >90 (>60 ml/min/1.73 sqM); Potassium 3.9 mmol/L (3.5-5.1); Sodium 135 mmol/L (137-145); Total Bilirubin 0.3 mg/dL (0.2-1.3); Total Protein 6.8 g/dL (6.3-8.2)
--- NOTE | 2020-05-25 17:39 | XR ---
EXAMINATION TYPE: XR abdomen acute w cxr DATE OF EXAM: 05/25/2020 COMPARISON: 12/25/2019. HISTORY: Pain. TECHNIQUE: Supine, upright, and left side down lateral decubitus views of the abdomen are obtained. FINDINGS: There is no evidence for pneumoperitoneum. The bowel gas pattern is unremarkable as there is air throughout nondilated small and large bowel. No sizeable air fluid levels. No mass effects are seen. The lungs are clear. Normal cardiomediastinal silhouette. No unusual calcif ications. Cholecystectomy clips are seen. IMPRESSION: No acute process.
[2020-05-25] MEDS ORDERED: HYDROmorphone 0.5 MG/0.5 ML SYRINGE IVP STA (18:17)
[2020-05-25] MEDS ORDERED: ONDANSETRON 4 MG/2 ML VIAL IM STA (18:38)
[2020-05-25 18:53] VITALS: BP 161/82; PULSE 108
--- NOTE | 2020-05-25 19:18 | XR ---
Result: History: Pain. Comparison: None available. Technique: Frontal and lateral views of the lumbar spine. Findings: The bone mineralization is normal. Images of the lumbar spine demonstrate 5 lumbar-type vertebrae. There is no acute fracture or sublux ation. The vertebral body heights are preserved throughout the imaged lumbar spine. There is mode rate to severe disc and facet arthropathy at L4-L5 and mild to moderate at L3-L4. There is mild to mo derate levoconvex scoliosis centered at L4-5. There is minimal grade 1 retrolisthesis of L4 on L5. Th e sacroiliac joints are patent. Impression: Degenerative changes of the lumbar spine without acute osseous abnormality.
== END 2020-05-25 19:50 | disposition home or self-care (01) ==
LOC: EC 15:22
DX: R19.7 Diarrhea, unspecified (principal); R11.2 Nausea with vomiting, unspecified; F41.9 Anxiety disorder, unspecified; I25.119 Atherosclerotic heart disease of native coronary artery with unspecified angina pectoris; K21.9 Gastro-esophageal reflux disease without esophagitis; E78.5 Hyperlipidemia, unspecified; I10 Essential (primary) hypertension; I25.2 Old myocardial infarction; M19.90 Unspecified osteoarthritis, unspecified site; Z20.822 Contact with and (suspected) exposure to COVID-19; Z79.899 Other long term (current) drug therapy; Z90.49 Acquired absence of other specified parts of digestive tract; Z95.5 Presence of coronary angioplasty implant and graft; Z98.42 Cataract extraction status, left eye; Z98.41 Cataract extraction status, right eye; Z96.1 Presence of intraocular lens; Z88.8 Allergy status to other drugs, medicaments and biological substances; Z87.891 Personal history of nicotine dependence
CPT/HCPCS: 36415; 93005; 80053; 83690; 85025; 85610; 85730; 87635; 74022; 72100; 99285; 96374; 96376; 96372; 96361 ×3; J2405; J1170 ×2

== ENCOUNTER 2020-05-31 02:00 | Inpatient (IN) | payer MEDICARE ==
[2020-05-31] MEDS ORDERED: ONDANSETRON 4 MG/2 ML VIAL IVP STA (02:14)
[2020-05-31] MEDS ORDERED: SODIUM CHLORIDE 0.9% 1,000 ML IV STA ×3 (02:14→03:55)
--- NOTE | 2020-05-31 02:14 | ED ---
Weakness HPI - General Stated complaint: weakness Time Seen by Provider: 05/31/20 02:06 Source: EMS, RN notes reviewed, old records reviewed Mode of arrival: EMS Limitations: no limitations - History of Present Illness Initial comments: This is a 69-year-old male extensive medical history coming with persistent nausea and vomiting. No fevers occasional abdominal pain. No diarrhea. No travel history sick contacts he does have multiple episodes of similar history in the past. Patient states nothing seems help with her symptoms. He feels weak persistently weak with lethargy MD Complaint: generalized weakness, lack of energy -: days(s) Location: generalized Severity: moderate Severity scale (1-10): 7 Consistency: constant Improves with: none Worsens with: none Context: recent illness Associated Symptoms: confusion, loss of appetite, nausea/vomiting - Related Data Home Medications Medication Instructions Recorded Confirmed Simvastatin [Zocor] 40 mg PO HS 07/12/13 05/31/20 Pantoprazole Sodium 40 mg PO BID 06/26/16 05/31/20 Dicyclomine [Bentyl] 10 mg PO TID 06/04/17 05/31/20 Dorzolamide-Timol 2.23%/0.68% 1 drop LEFT EYE BID 01/27/18 05/31/20 [Cosopt] Gabapentin [Neurontin] 600 mg PO TID 04/26/18 05/31/20 Latanoprost [Xalatan 0.005%] 1 drop LEFT EYE HS 09/20/18 05/31/20 Losartan Potassium 100 mg PO DAILY 09/20/18 05/31/20 Metoprolol Tartrate [Lopressor] 25 mg PO BID 09/20/18 05/31/20 Ondansetron [Zofran ODT] 4 mg PO BID PRN 09/20/18 05/31/20 Butalb/APAP/Caff 50-325-40Mg 2 tab PO Q6H PRN MDD 3caps/24hr 10/06/18 05/31/20 [Fioricet 50-325-40] Escitalopram [Lexapro] 15 mg PO DAILY 10/06/18 05/31/20 Brimonidine Tartrate [Alphagan P 1 drop LEFT EYE BID 12/25/19 05/31/20 0.2% Ophth Soln] Cholecalciferol [Vitamin D3 (25 2,000 unit PO DAILY 10/25/20 04/01/21 Mcg = 1000 Iu)] Diazepam [Valium] 5 mg PO HS PRN 12/25/19 05/31/20 Furosemide [Lasix] 20 mg PO DAILY 12/25/19 05/31/20 Potassium Chloride ER [K-Dur 20] 20 meq PO DAILY 12/25/19 05/31/20 Testosterone Cypionate 100 mg IM Q14D 12/25/19 05/31/20 [Depo-Testosterone] Acetaminophen Tab [Tylenol] 650 mg PO Q4H PRN 12/28/19 05/31/20 Metoclopramide HCl [Reglan] 10 mg PO TID 05/25/20 05/31/20 Ondansetron [Zofran] 4 mg PO Q12HR PRN 05/25/20 05/31/20 Previous Rx's Medication Instructions Recorded Sucralfate [Carafate] 1 gm PO ACHS #1200 ml 12/30/19 Levofloxacin [Levaquin] 500 mg PO DAILY 1 Days #7 tab 06/02/20 metroNIDAZOLE 250 mg PO TID #30 tablet 06/02/20 Allergies Allergy/AdvReac Type Severity Reaction Status Date / Time atorvastatin [From Lipitor] AdvReac MUSCLE Verified 05/31/20 07:12 CRAMPS hydrochlorothiazide AdvReac Nausea & Verified 05/31/20 07:12 Vomiting Review of Systems ROS Statement: Those systems with pertinent positive or pertinent negative responses have been documented in the HPI. ROS Other: All systems not noted in ROS Statement are negative. Past Medical History Past Medical History: Coronary Artery Disease (CAD), Chest Pain / Angina, Eye Disorder, GERD/Reflux, Hyperlipidemia, Hypertension, Myocardial Infarction ([place]), Osteoarthritis (OA) Additional Past Medical History / Comment(s): NVD recently, Neck pain, SVT with ablation, duodenal ulcers, chronic duodenal stricture, bilateral glaucoma, sinusitis, migraines, anemia, esophagitis,hiatal hernia, chronic back pain, past fx ribs/sternum Last Myocardial Infarction Date:: 1999 History of Any Multi-Drug Resistant Organisms: None Reported Past Surgical History: Cardiac Ablation, Cholecystectomy, Heart Catheterization With Stent Additional Past Surgical History / Comment(s): stent right eye 03/2018, PCI with 3 stents, sinus surgery, cataracts bilaterally with lens implants, EGDs/colonoscopies, Past Anesthesia/Blood Transfusion Reactions: No Reported Reaction Additional Past Anesthesia/Blood Transfusion Reaction / Comment(s): Pt has had past multiple transfusions without reaction. Date of Last Stent Placement:: 1999 Past Psychological History: Anxiety Smoking Status: Former smoker Past Alcohol Use History: None Reported Past Drug Use History: None Reported - Past Family History Father Additional Family Medical History / Comment(s): Father at the age of 68yrs from a ruptured aortic aneurysm. Mother Additional Family Medical History / Comment(s): Mother lived into her 80's. Brother(s) Family Medical History: Cancer Additional Family Medical History / Comment(s): The patient had 3 brothers. One from colon cancer with metastatic disease to the brain. One brother at age 79 from a myocardial infarction. He has 1 brother that is alive with history of skin cancer and diabetes. Sister(s) Additional Family Medical History / Comment(s): The patient is a total of 3 sisters. One in her 80s from myocardial infarction. One sister at age 58 from coronary artery disease and also had a valvular disorder. Patient has one sister alive with diabetes and multiple other medical conditions. Patient has 2 sons and 1 daughter with no major medical problems. General Exam Limitations: no limitations General appearance: alert, in no apparent distress Head exam: Present: atraumatic, normocephalic, normal inspection Eye exam: Present: normal appearance, PERRL, EOMI. Absent: scleral icterus, conjunctival injection, periorbital swelling ENT exam: Present: normal exam, mucous membranes moist Neck exam: Present: normal inspection. Absent: tenderness, meningismus, lymphadenopathy Respiratory exam: Present: normal lung sounds bilaterally. Absent: respiratory distress, wheezes, rales, rhonchi, stridor Cardiovascular Exam: Present: regular rate, normal rhythm, normal heart sounds. Absent: systolic murmur, diastolic murmur, rubs, gallop, clicks GI/Abdominal exam: Present: soft, normal bowel sounds. Absent: distended, tenderness, guarding, rebound, rigid Extremities exam: Present: normal inspection, full ROM, normal capillary refill. Absent: tenderness, pedal edema, joint swelling, calf tenderness Back exam: Present: normal inspection Neurological exam: Present: alert, oriented X3, CN II-XII intact Psychiatric exam: Present: normal affect, normal mood Skin exam: Present: warm, dry, intact, normal color. Absent: rash Course Vital Signs 05/31/20 05/31/20 05/31/20 02:07 03:39 06:47 Temperature 98.3 F Pulse Rate 90 98 83 Pulse Rate [ Left Pulse Oximetery] Respiratory 18 18 18 Rate Blood Pressure 143/82 141/81 110/63 Blood Pressure [Left Arm] O2 Sat by Pulse 98 97 98 Oximetry 05/31/20 05/31/20 07:22 14:50 Temperature 98.7 F 98.2 F Pulse Rate Pulse Rate [ 87 82 Left Pulse Oximetery] Respiratory 18 18 Rate Blood Pressure Blood Pressure 139/62 131/66 [Left Arm] O2 Sat by Pulse 96 96 Oximetry - Reevaluation(s) Reevaluation #1: Medical record is reviewed Patient has no improvement in symptoms here in the ER Spoke patient regarding findings and results questions answered EKG Findings - EKG Comments: EKG Findings:: EKG is sinus rhythm 89 ND 196 QRS 86 QTc 476 Medical Decision Making - Medical Decision Making 69 male with severe weakness persistent nausea vomiting and not feeling well. Patient will be admitted for hydration monitoring and symptom management - Lab Data Result diagrams: 06/01/20 05:44 06/02/20 06:24 Lab Results 05/31/20 05/31/20 05/31/20 Range/Units 02:20 02:23 02:23 WBC 10.5 (3.8-10.6) k/uL RBC 4.68 (4.30-5.90) m/uL Hgb 14.5 (13.0-17.5) gm/dL Hct 40.8 (39.0-53.0) % MCV 87.3 (80.0-100.0) fL MCH 31.0 (25.0-35.0) pg MCHC 35.5 (31.0-37.0) g/dL RDW 12.7 (11.5-15.5) % Plt Count 360 (150-450) k/uL MPV 5.9 Neutrophils % 71 % Lymphocytes % 18 % Monocytes % 7 % Eosinophils % 3 % Basophils % 0 % Neutrophils # 7.5 (1.3-7.7) k/uL Lymphocytes # 1.9 (1.0-4.8) k/uL Monocytes # 0.7 (0-1.0) k/uL Eosinophils # 0.3 (0-0.7) k/uL Basophils # 0.0 (0-0.2) k/uL Sodium 128 L (137-145) mmol/L Potassium 3.0 L (3.5-5.1) mmol/L Chloride 90 L (98-107) mmol/L Carbon Dioxide 27 (22-30) mmol/L Anion Gap 11 mmol/L BUN 3 L (9-20) mg/dL Creatinine 0.66 (0.66-1.25) mg/dL Est GFR (CKD-EPI)AfAm >90 (>60 ml/min/1.73 sqM) Est GFR (CKD-EPI)NonAf >90 (>60 ml/min/1.73 sqM) Glucose 114 H (74-99) mg/dL Calcium 9.5 (8.4-10.2) mg/dL Phosphorus 2.3 L (2.5-4.5) mg/dL Magnesium 1.5 L (1.6-2.3) mg/dL Total Bilirubin 0.4 (0.2-1.3) mg/dL AST 24 (17-59) U/L ALT 17 (4-49) U/L Alkaline Phosphatase 109 (38-126) U/L Troponin I <0.012 (0.000-0.034) ng/mL Total Protein 7.2 (6.3-8.2) g/dL Albumin 4.4 (3.5-5.0) g/dL - Radiology Data Radiology results: report reviewed (X-ray abdominal series and chest is negative for acute disease), image reviewed Disposition Clinical Impression: GERD (gastroesophageal reflux disease), Intractable nausea and vomiting, Abdominal pain, Hyponatremia, Dehydration, Gastroenteritis Disposition: ADMITTED IP TO THIS [facility] Condition: Good Is patient prescribed a controlled substance at d/c from ED?: No
[2020-05-31] MEDS ORDERED: HYDROmorphone 1 MG/ML 1 ML SYRINGE IVP STA (02:27)
[2020-05-31 02:31] LABS: Basophils % (A) 0 %; Eosinophils # (A) 0.3 k/uL (0-0.7); Eosinophils % (A) 3 %; HCT 40.8 % (39.0-53.0); HGB 14.5 gm/dL (13.0-17.5); Lymphocytes # (A) 1.9 k/uL (1.0-4.8); Lymphocytes % (A) 18 %; MCHC 35.5 g/dL (31.0-37.0); MCV 87.3 fL (80.0-100.0); Mean Platelet Volume 5.9; Monocytes # (A) 0.7 k/uL (0-1.0); Monocytes % (A) 7 %; Neutrophils # (A) 7.5 k/uL (1.3-7.7); Neutrophils % (A) 71 %; Platelet Count 360 k/uL (150-450); RBC 4.68 m/uL (4.30-5.90); RDW 12.7 % (11.5-15.5); WBC 10.5 k/uL (3.8-10.6)
[2020-05-31 03:04] LABS: ALT 17 U/L (4-49); AST 24 U/L (17-59); African American GFR (CKD) >90 (>60 ml/min/1.73 sqM); Albumin 4.4 g/dL (3.5-5.0); Alkaline Phosphatase 109 U/L (38-126); Anion Gap 11 mmol/L; Blood Urea Nitrogen 3 mg/dL (9-20); Calcium 9.5 mg/dL (8.4-10.2); Carbon Dioxide 27 mmol/L (22-30); Chloride 90 mmol/L (98-107); Glucose 114 mg/dL (74-99); Non-African American GFR(CKD) >90 (>60 ml/min/1.73 sqM); Phosphorus 2.3 mg/dL (2.5-4.5); Sodium 128 mmol/L (137-145); Total Bilirubin 0.4 mg/dL (0.2-1.3); Total Protein 7.2 g/dL (6.3-8.2)
[2020-05-31 03:22] LABS: Magnesium 1.5 mg/dL (1.6-2.3)
[2020-05-31] MEDS: HYDROmorphone 1 MG/ML 1 ML SYRINGE IVP PRN ×5 (03:52→21:20)
[2020-05-31] MEDS ORDERED: POTASSIUM CHLORIDE ER 20 MEQ TAB.ER PO STA (03:55)
[2020-05-31] MEDS ORDERED: POTASSIUM BICARBONATE/CIT AC 20 MEQ TABLET.EFF PO ONE (04:00)
[2020-05-31] MEDS ORDERED: NALOXONE 0.4 MG/ML 1 ML VIAL IV PRN (04:05)
[2020-05-31] MEDS ORDERED: LORazepam 2 MG/ML INJ IV STA ×2 (04:19→07:15)
--- NOTE | 2020-05-31 04:43 | XR ---
EXAM: XR Abdomen, 2 Views and XR Chest, 1 View CLINICAL HISTORY: pain TECHNIQUE: Frontal view of the chest, frontal view of the abdomen/pelvis and upright or decubitus view of the abdomen. COMPARISON: 05/25/2020 FINDINGS: Lungs: Unremarkable. No consolidation. Pleural space: Unremarkable. No pneumothorax. Heart: Unremarkable. No cardiomegaly. Mediastinum: Unremarkable. Intraperitoneal space: No free air. Gastrointestinal tract: Unremarkable. No dilation. Organs: Hepatomegaly, measuring up to 22.9 cm in greatest craniocaudad dimension, as seen on prior study. Bones/joints: Osseous structures are unchanged. Other findings: Postoperative changes involving the right upper quadrant, likely status post cholecystectomy. IMPRESSION: No acute findings in the chest, abdomen or pelvis.
[2020-05-31] MEDS: 0.9% NACL WITH KCL 20 MEQ/L 1,000 ML IV SCH ×3 (05:14→20:12)
[2020-05-31] MEDS: POTASSIUM CHLORIDE 20 MEQ in WATER FOR INJECTION 1 100ML.BAG IVPB SCH ×4 (05:15→14:17)
[2020-05-31] MEDS ORDERED: LORazepam 2 MG/ML INJ IV PRN (07:15)
[2020-05-31] MEDS: CALCIUM ACETATE 667 MG TAB PO SCH ×2 (09:10→17:52)
[2020-05-31] MEDS ORDERED: IOPAMIDOL CONTRAST (ORAL USE) VIAL PO PRN (09:13)
[2020-05-31] MEDS ORDERED: diazePAM 5 MG TAB PO PRN (09:31)
[2020-05-31] MEDS ORDERED: BUTALB/APAP/CAFF 50-325-40MG TAB PO PRN (09:31)
[2020-05-31 09:45] LABS: Chloride 98 mmol/L (98-107)
[2020-05-31 09:49] LABS: ALT 15 U/L (4-49); AST 22 U/L (17-59); African American GFR (CKD) >90 (>60 ml/min/1.73 sqM); Albumin 3.8 g/dL (3.5-5.0); Albumin/Globulin Ratio 1.5; Alkaline Phosphatase 109 U/L (38-126); Anion Gap 12 mmol/L; Blood Urea Nitrogen 2 mg/dL (9-20); C Reactive Protein 5.3 mg/L (<10.0); Calcium 8.4 mg/dL (8.4-10.2); Carbon Dioxide 21 mmol/L (22-30); Globulin 2.5 g/dL; Glucose 127 mg/dL (74-99); Non-African American GFR(CKD) >90 (>60 ml/min/1.73 sqM); Potassium 3.3 mmol/L (3.5-5.1); Sodium 131 mmol/L (137-145); Total Bilirubin 0.4 mg/dL (0.2-1.3); Total Protein 6.3 g/dL (6.3-8.2)
[2020-05-31] MEDS: MAGNESIUM SULFATE-D5W PMX 1 GM in DEXTROSE/WATER 1 100ML.BAG IVPB SCH ×2 (09:53→12:22)
[2020-05-31] MEDS: ONDANSETRON 4 MG/2 ML VIAL IVP PRN ×3 (09:54→21:20)
[2020-05-31] MEDS: PANTOPRAZOLE 40 MG/10 ML VIAL IVP SCH ×2 (09:54→21:21)
[2020-05-31] MEDS: PIPERACILLIN-TAZOBACTAM 3.375 GM in SODIUM CHLORIDE 0.9% 100 ML IVPB SCH ×3 (10:12→23:15)
[2020-05-31] MEDS: LOSARTAN 50 MG TAB PO SCH (10:13)
[2020-05-31] MEDS: METOPROLOL TARTRATE 25 MG TAB PO SCH ×2 (10:13→21:52)
[2020-05-31] MEDS: METOCLOPRAMIDE 5 MG/ML 2 ML VIAL IVP SCH ×3 (11:30→23:15)
[2020-05-31] MEDS ORDERED: SCOPOLAMINE 1.5MG/72HR PATCH TRANSDERM SCH (11:30)
--- NOTE | 2020-05-31 12:03 | CT ---
EXAMINATION TYPE: CT abdomen pelvis w con DATE OF EXAM: 05/31/2020 COMPARISON: 10/06/2018 HISTORY: intractable nausea, vomiting CT DLP: 978.5 mGycm CONTRAST: CT scan of the abdomen and pelvis is performed with Oral Contrast and with IV Contrast, patient injec tiff with 100 mL of Isovue 300. FINDINGS: LUNG BASES-: No visible nodule. No infiltrate. LIVER/GB: The gallbladder is surgically absent. No space occupying hepatic lesion. Biliary tree is of normal caliber. PANCREAS: No inflammation. No distinct mass. SPLEEN: No splenic enlargement. No lesion seen. ADRENALS: No nodule. No thickening. KIDNEYS/BLADDER: No hydronephrosis. No nephrolithiasis. Bilateral renal cysts noted. Urinary bladde r grossly unremarkable. BOWEL: Normal appendix. There is mild small bowel wall thickening which may reflect enteritis. No russel dence of dilated bowel. No free air or abscess. Small hiatal hernia. Sigmoid diverticulosis without d iverticulitis. GENITAL ORGANS: The prostate gland is mildly enlarged. LYMPH NODES: No greater than 1cm abdominal or pelvic lymph nodes are appreciated. AORTA: No significant abnormality. OSSEOUS STRUCTURES: No significant abnormality is seen. OTHER: No significant additional abnormality is seen. IMPRESSION: 1. There is mild small bowel wall thickening which may reflect enteritis. No evidence of dilated stephanie l.
--- NOTE | 2020-05-31 13:58 | P.HPIM ---
History of Present Illness H&P Date: 05/31/20 HISTORY OF PRESENT ILLNESS This is a 67-year-old male patient of Dr. Castaneda and Dr. SELENA Goode with past medical history of coronary artery disease status post stenting, SVT status post ablation, hypertension, hyperlipidemia, gastroesophageal reflux disease, steroid injections of the cervical spine along with radiofrequency ablation, history of gastric ulcers, chronic duodenal stricture EGD in 2016 suggested stable duodenal stricture. Patient had repeat EGD December [address] Subramanian that revealed multiple scattered punctate-like ulcerations in the distal eso phagus suspicious for viral esophagitis and antral gastritis. Patient has a history of seizure activity in 2018 admission secondary to hyponatremia at 112. When patient was last seen in the office he was treated for diarrhea and was placed on Levaquin and Flagyl which patient states he completed a course of antibiotics. Patient states she he was doing well until yesterday and developed nausea and vomiting. He has been taking a bland diet. He also complains of aching all over for the last couple days. Emesis is coffee-colored any complaints of pain in the lower abdomen. He denies any fever or chills. He denies any sick contacts. He does complain of dizziness. His last bowel movement was yesterday and was soft. Patient presents to [facility] emergency center for evaluation. He was afebrile, heart rate 90, blood pressure 143/82, pulse ox 98% on room air. EKG was a sinus rhythm. No acute ST changes. CBC was unremarkable. Sodium 128, potassium 3.0, chloride 90, CO2 27, BUN 3 and creatinine 0.99. Blood sugar 114. Troponin negative. Magnesium 1.5 liver function tests were normal. COVID-19 not detected. Influenza testing negative. Chest x-ray and acute abdominal series revealed no acute findings in the chest and abdomen or pelvis. CAT scan of the abdomen and pelvis showed mild small bowel wall thickening may reflect enteritis. No evidence of dilated bowel. Patient is status post 3 L of IV fluids. REVIEW OF SYSTEMS Constitutional: No fever, no chills, no night sweats. No weight change. No weakness, fatigue or lethargy. No daytime sleepiness. EENT: No headache. No blurred vision or double vision, no loss of vision. No loss of Hearing, no ringing in the ears, no dizziness. No nasal drainage or congestion. No epistaxis. No sore throat. Lungs: No shortness of breath, cough, no sputum production. No wheezing. Cardiovascular: Denies chest pain, no lower extremity edema. No palpitations. No paroxysmal nocturnal dyspnea. No orthopnea. No lightheadedness or dizziness. No syncopal episodes. Abdominal Reports abdominal pain. Reports nausea, reports vomiting. No diarrhea. No constipation. No bloody or tarry stools. Reports loss of appetite. Genitourinary: No dysuria, increased frequency, urgency. No urinary retention. Musculoskeletal: No myalgias. No muscle weakness, no gait dysfunction, no f requent falls. No back pain. No neck pain. Integumentary: No wounds, no lesions. No rash or pruritus. No unusual bruising. Neurologic: No aphasia. No facial droop. No change in mentation. No head injury. No headache. No paralysis. No paresthesia. Psychiatric: No depression. No anxiety. Endocrine: No abnormal blood sugars. No weight change. SOCIAL HISTORY Patient was a smoker for only a few years in his 40s. No illicit drug use, no alcohol use. He lives at home with his . He is retired was a [employer] for 33 years. He does not have a CPAP, nebulizer, O2. FAMILY HISTORY Father at the age of 69 from a ruptured abdominal aortic aneurysm. Mother lived into her 80's without any major medical problems. he patient had 3 brothers. One from colon cancer with metastatic disease to the brain. One brother at age 79 from a myocardial infarction. He has 1 brother that is alive with history of skin cancer and diabetes. Patient has a total of 3 sisters. One in her 80s from myocardial infarction. One sister at age 58 from coronary artery disease and also had a valvular disorder. Patient has one sister alive with diabetes and multiple other medical conditions. Patient has 2 sons and 2 daughters. One daughter was murdered. Other children have no major medical problems. PHYSICAL EXAMINATION Gen: This is is a 69-year-old male. Patient is resting on ER s tretcher and appears comfortable and in no acute distress. HEENT: Head is atraumatic, normocephalic. Pupils equal, round. Sclerae is anicteric. Patchy redness in the face. NECK: Supple. No JVD. No lymphadenopathy. No thyromegaly. LUNGS: Clear to auscultation. No wheezes or rhonchi. No intercostal retractions. HEART: Regular rate and rhythm. No murmur. No tenderness ABDOMEN: Soft. Bowel sounds are present. No masses Lower abd tenderness. EXTREMITIES: No pedal edema. No calf tenderness.Dorsalis pedis +2 bilaterally. NEUROLOGICAL: Patient is awake, alert and oriented x3. Cranial nerves 2 through 12 are grossly intact. ASSESSMENT AND PLAN 1. Intractable nausea and vomiting. Clear liquid diet, GI consult, continue Reglan 5 mg IV push every 6 hours, Zofran 4 mg IV push every 6 hours as needed, scopolamine patch added for intractable nausea and vomiting. Continue Bentyl 10 mg 3 times daily. 2. Abdominal pain, CAT scan positive for enteritis. Patient started on Zosyn 3.375 g IV piggyback every 8 hours area. GI consult. 3. Hyponatremia, chronic. Continue IV fluids of 0.9 normal saline at 130 mL per hour, recheck CMP in the morning. 4. History of coronary artery disease status post stenting. Continue Lopressor 25 mg twice daily, Zocor 40 mg at bedtime. 5. Hypertension. Continue losartan 100 mg daily, Lopressor 25 mg twice daily. Hold Lasix. 6. Gastroesophageal reflux disease. Continue Protonix 40 mg changed to IV twice daily, continue Carafate 1 g before meals and at bedtime. 7. Recurrent depression. Continue Lexapro 50 mg daily, Valium 5 mg at bedtime as needed. 8. Hyperlipidemia. Continue simvastatin 40 mg at bedtime. 9. Degenerative disc disease of the cervical spine. Continue gabapentin 600 mg 3 times daily. 10. DVT prophylaxis. Heparin subcu. Patient admitted to the hospital for a minimum of 2 night stay. DISCHARGE PLAN Home. Impression and plan of care have been directed as dictated by the signing physician. Zahra Lainez nurse practitioner acting as scribe for signing ricardo summers. Past Medical History Past Medical History: Coronary Artery Disease (CAD), Chest Pain / Angina, Eye Disorder, GERD/Reflux, Hyperlipidemia, Hypertension, Myocardial Infarction ([place]), Osteoarthritis (OA) Additional Past Medical History / Comment(s): NVD recently, Neck pain, SVT with ablation, duodenal ulcers, chronic duodenal stricture, bilateral glaucoma, sinusitis, migraines, anemia, esophagitis,hiatal hernia, chronic back pain, past fx ribs/sternum Last Myocardial Infarction Date:: 1999 History of Any Multi-Drug Resistant Organisms: None Reported Past Surgical History: Cardiac Ablation, Cholecystectomy, Heart Catheterization With Stent Additional Past Surgical History / Comment(s): stent right eye 03/2018, PCI with 3 stents, sinus surgery, cataracts bilaterally with lens implants, EGDs/colonoscopies, Past Anesthesia/Blood Transfusion Reactions: No Reported Reaction Additional Past Anesthesia/Blood Transfusion Reaction / Comment(s): Pt has had past multiple transfusions without reaction. Date of Last Stent Placement:: 1999 Past Psychological History: Anxiety Smoking Status: Former smoker Past Alcohol Use History: None Reported Past Drug Use History: None Reported - Past Family History Father Additional Family Medical History / Comment(s): Father at the age of 68yrs from a ruptured aortic aneurysm. Mother Additional Family Medical History / Comment(s): Mother lived into her 80's. Brother(s) Family Medical History: Cancer Additional Family Medical History / Comment(s): The patient had 3 brothers. One from colon cancer with metastatic disease to the brain. One brother at age 79 from a myocardial infarction. He has 1 brother that is alive with history of skin cancer and diabetes. Sister(s) Additional Family Medical History / Comment(s): The patient is a total of 3 sisters. One in her 80s from myocardial infarction. One sister at age 58 from coronary artery disease and also had a valvular disorder. Patient has one sister alive with diabetes and multiple other medical conditions. Patient has 2 sons and 1 daughter with no major medical problems. Medications and Allergies Home Medications Medication Instructions Recorded Confirmed Type Simvastatin [Zocor] 40 mg PO HS 07/12/13 05/31/20 History Pantoprazole Sodium 40 mg PO BID 06/26/16 05/31/20 History Dicyclomine [Bentyl] 10 mg PO TID 06/04/17 05/31/20 History Dorzolamide-Timol 2.23%/0.68% 1 drop LEFT EYE BID 01/27/18 05/31/20 History [Cosopt] Gabapentin [Neurontin] 600 mg PO TID 04/26/18 05/31/20 History Latanoprost [Xalatan 0.005%] 1 drop LEFT EYE HS 09/20/18 05/31/20 History Losartan Potassium 100 mg PO DAILY 09/20/18 05/31/20 History Metoprolol Tartrate [Lopressor] 25 mg PO BID 09/20/18 05/31/20 History Ondansetron [Zofran ODT] 4 mg PO BID PRN 09/20/18 05/31/20 History Butalb/APAP/Caff 50-325-40Mg 2 tab PO Q6H PRN MDD 3caps/24hr 10/06/18 05/31/20 History [Fioricet 50-325-40] Escitalopram [Lexapro] 15 mg PO DAILY 10/06/18 05/31/20 History Brimonidine Tartrate [Alphagan P 1 drop LEFT EYE BID 12/25/19 05/31/20 History 0.2% Ophth Soln] Cholecalciferol [Vitamin D3 (25 2,000 unit PO DAILY 12/25/19 05/31/20 History Mcg = 1000 Iu)] Diazepam [Valium] 5 mg PO HS PRN 12/25/19 05/31/20 History Furosemide [Lasix] 20 mg PO DAILY 12/25/19 05/31/20 History Potassium Chloride ER [K-Dur 20] 20 meq PO DAILY 12/25/19 05/31/20 History Testosterone Cypionate 100 mg IM Q14D 12/25/19 05/31/20 History [Depo-Testosterone] Acetaminophen Tab [Tylenol] 650 mg PO Q4H PRN 12/28/19 05/31/20 History Sucralfate [Carafate] 1 gm PO ACHS #1200 ml 12/30/19 05/31/20 Rx Metoclopramide HCl [Reglan] 10 mg PO TID 05/25/20 05/31/20 History Ondansetron [Zofran] 4 mg PO Q12HR PRN 05/25/20 05/31/20 History Allergies Allergy/AdvReac Type Severity Reaction Status Date / Time atorvastatin [From Lipitor] AdvReac MUSCLE Verified 05/31/20 07:12 CRAMPS hydrochlorothiazide AdvReac Nausea & Verified 05/31/20 07:12 Vomiting Physical Exam Vitals: Vital Signs Temp Pulse Resp BP Pulse Ox 05/31/20 06:47 83 18 110/63 98 05/31/20 03:39 98 18 141/81 97 05/31/20 02:07 98.3 F 90 18 143/82 98 Intake and Output 05/30/20 05/31/20 05/31/20 22:59 06:59 14:59 Other: Weight 88.451 kg Results CBC & Chem 7: 05/31/20 02:20 05/31/20 09:19 Labs: Abnormal Lab Results - Last 24 Hours (Table) 05/31/20 Range/Units 02:23 Sodium 128 L (137-145) mmol/L Potassium 3.0 L (3.5-5.1) mmol/L Chloride 90 L (98-107) mmol/L BUN 3 L (9-20) mg/dL Glucose 114 H (74-99) mg/dL Phosphorus 2.3 L (2.5-4.5) mg/dL Magnesium 1.5 L (1.6-2.3) mg/dL
[2020-05-31] MEDS: DICYCLOMINE 10 MG CAP PO SCH ×2 (15:27→21:53)
--- NOTE | 2020-05-31 16:39 | CONS ---
CONSULTATION DATE OF DICTATION: May 31, 2020 REASON FOR CONSULTATION: Nausea, vomiting. HISTORY OF PRESENT ILLNESS: The patient is a 67-year-old pleasant white male known to me from his previous hospitalizations and office visits. He has history of coronary artery disease, history of hypertension, hyperlipidemia, gastroesophageal reflux disease as well as IBS, admitted to the hospital because of lower extremity pain, numbness, tingling in the upper extremities, pain in the face and some nausea, vomiting going on for the last 10- 12 days duration. The patient took his COVID vaccination about 2 weeks ago and 2 days later he started having these symptoms. He became very concerned and because of severe body aches all over the body he came to the emergency room and subsequently admitted to the hospital for further evaluation. He did have a CT of the abdomen and pelvis done in the emergency room that showed mild thickening of the small bowel wall, suspicious for enteritis, but otherwise no evidence of small-bowel obstruction. He was seen by Dr. Castaneda 3 or 4 days ago because of the ongoing diarrhea. He was having about 3-4 bowel movements daily and apparently according to the patient stool studies were done and was treated empirically with Levaquin and Flagyl on an outpatient basis which he just finished 2 days ago. PAST MEDICAL HISTORY: Significant for hypertension, hyperlipidemia, history of coronary artery disease, gastroesophageal reflux disease, degenerative joint disease, duodenal stricture, glaucoma. PAST SURGICAL HISTORY: Multiple EGDs, cardiac ablation, cholecystectomy, cardiac catheterization with stent placement, bilateral cataract surgery, EGD, colonoscopies in the past. MEDICATIONS AT HOME: Medications at home include Zocor, Bentyl, Neurontin, Cosopt, Xalatan eye drops, Lopressor, Zofran, Fioricet, Lexapro, vitamin D3, Lasix, potassium chloride, Depo- Testosterone, Tylenol, Carafate, Reglan. ALLERGIES: Allergies to LIPITOR and HYDROCHLOROTHIAZIDE. SOCIAL HISTORY: No smoking. No alcohol use. FAMILY HISTORY: Father had ruptured aortic aneurysm. Mother lived up to her 80s. Brother had brain cancer. REVIEW OF SYSTEMS: CARDIOPULMONARY: No chest pain or shortness of breath. GENITOURINARY: No dysuria or hematuria. MUSCULOSKELETAL: Chronic back pain. SKIN: Unremarkable. ENDOCRINE: Unremarkable. PSYCHIATRIC: Unremarkable. NEUROLOGY: Tingling, numbness in the upper extremities. ENT/VISION: Unremarkable. CONSTITUTIONAL: No recent weight loss. No fever, chills, night sweats. GI: As mentioned above with nausea, vomiting and diarrhea. PHYSICAL EXAMINATION: He appears comfortable. No apparent distress. Vital signs are stable. Blood pressure 131/66, pulse rate 82, temperature 98.2. HEENT EXAMINATION: Unremarkable. Conjunctivae pink. Sclerae anicteric. Oral cavity no lesions. NECK: No JVD or lymph node enlargement. CHEST: Was clear to auscultation. HEART: Regular rate and rhythm. ABDOMEN: Soft. Bowel sounds are positive. No organomegaly. EXTREMITIES: No pedal edema. NEURO: He is alert and oriented x3. No focal deficits. LABS: WBC 10.5, hemoglobin 14.5, platelets are normal. Sodium 128, potassium 3, chloride 90, CO2 is 21, BUN is 3, creatinine 0.66. AST, ALT, T-bilirubin and alkaline phosphatase are normal. Magnesium 1.5 and phosphorus is 2.3. Coronavirus PCR is negative. CT of the abdomen and pelvis showed mild small bowel wall thickening suspicious for enteritis. IMPRESSION: 1. This is a patient who presented to the hospital with body aches for the last 1-2 weeks duration with tingling, numbness in the upper extremities, probably related to some paresthesias from electrolyte disturbance. 2. Nausea, vomiting, diarrhea, possibly viral gastroenteritis. The patient recently was treated empirically with Cipro and Flagyl for one week on an outpatient basis. CT of the abdomen showed some thickening of the small bowel loops suspicious for acute enteritis. 3. History of duodenal stricture. 4. History of anxiety and depression. 5. History of irritable bowel syndrome. RECOMMENDATION: 1. Continue to replace electrolytes. 2. Patient was already started on broad-spectrum antibiotics. 3. Continue Bentyl 10 mg 3 times daily for the diarrhea. 4. Start him on a clear liquid diet and advance as tolerated. 5. Monitor electrolytes and labs closely. 6. No need for any endoscopic intervention at the present time. 7. We will follow with you closely. Thank you for this consultation. MMPAULINEL / MORENAN: [id number] /
[2020-05-31] MEDS: GABAPENTIN 300 MG CAP PO SCH ×2 (17:01→21:53)
[2020-05-31] MEDS: HEPARIN SODIUM,PORCINE/PF 5,000 UNIT/0.5 ML SYRINGE SQ SCH ×2 (17:04→23:16)
[2020-05-31] MEDS: SUCRALFATE 1 GM TAB PO SCH ×2 (17:53→21:52)
[2020-05-31] MEDS: LATANOPROST 0.005% OPHTH DROPS 2.5 ML BTL LEFT EYE SCH (21:51)
[2020-05-31] MEDS: BRIMONIDINE TARTRATE 0.2% DROPS 5 ML BTL LEFT EYE SCH (21:51)
[2020-05-31] MEDS: DORZOLAMIDE-TIMOLOL 2.23%/0.68 10ML BTL LEFT EYE SCH (21:51)
[2020-05-31] MEDS: SIMVASTATIN 40 MG PO SCH (21:52)
[2020-06-01] MEDS: HYDROmorphone 1 MG/ML 1 ML SYRINGE IVP PRN ×5 (02:02→21:03)
[2020-06-01] MEDS: ONDANSETRON 4 MG/2 ML VIAL IVP PRN ×4 (03:03→22:05)
[2020-06-01] MEDS: 0.9% NACL WITH KCL 20 MEQ/L 1,000 ML IV SCH (04:41)
[2020-06-01] MEDS: METOCLOPRAMIDE 5 MG/ML 2 ML VIAL IVP SCH ×4 (05:27→17:55)
[2020-06-01] MEDS: PIPERACILLIN-TAZOBACTAM 3.375 GM in SODIUM CHLORIDE 0.9% 100 ML IVPB SCH ×2 (08:13→16:09)
[2020-06-01] MEDS: HEPARIN SODIUM,PORCINE/PF 5,000 UNIT/0.5 ML SYRINGE SQ SCH ×2 (08:13→16:06)
[2020-06-01] MEDS ORDERED: 0.9% NACL WITH KCL 20 MEQ/L 1,000 ML IV ONE (08:51)
[2020-06-01] MEDS: SUCRALFATE 1 GM TAB PO SCH ×4 (09:17→20:49)
[2020-06-01] MEDS: CALCIUM ACETATE 667 MG TAB PO SCH ×2 (09:17→17:04)
[2020-06-01 09:22] LABS: Basophils # (A) 0.07 X 10*3/uL (0.00-0.10); Basophils % (A) 0.7 %; Eosinophils % (A) 3.2 %; HGB 11.8 g/dL (13.0-17.0); Lymphocytes # (A) 1.59 X 10*3/uL (0.90-5.00); Lymphocytes % (A) 16.8 %; MCH 29.9 pg (27.0-32.0); MCHC 33.7 g/dL (32.0-37.0); MCV 88.8 fL (80.0-97.0); Mean Platelet Volume 8.7 fL (9.5-12.2); Monocytes # (A) 1.09 X 10*3/uL (0.20-1.00); Monocytes % (A) 11.5 %; Neutrophils # (A) 6.39 X 10*3/uL (1.80-7.70); Neutrophils % (A) 67.6 %; Platelet Count 344 X 10*3/uL (140-440); RBC 3.94 X 10*6/uL (4.40-5.60); RDW 13.4 % (11.5-14.5); WBC 9.46 X 10*3/uL (4.50-10.00)
[2020-06-01] MEDS: PANTOPRAZOLE 40 MG/10 ML VIAL IVP SCH ×2 (09:26→20:48)
[2020-06-01] MEDS: METOPROLOL TARTRATE 25 MG TAB PO SCH ×2 (09:26→20:48)
[2020-06-01] MEDS: GABAPENTIN 300 MG CAP PO SCH ×3 (09:26→22:04)
[2020-06-01] MEDS: CHOLECALCIFEROL 25 MCG (1000 IU) TABLET PO SCH (09:26)
[2020-06-01] MEDS: LOSARTAN 50 MG TAB PO SCH (09:26)
[2020-06-01] MEDS: DICYCLOMINE 10 MG CAP PO SCH ×3 (09:26→22:04)
[2020-06-01] MEDS: ESCITALOPRAM 5 MG TAB PO SCH (09:26)
[2020-06-01] MEDS: BRIMONIDINE TARTRATE 0.2% DROPS 5 ML BTL LEFT EYE SCH ×2 (09:27→20:48)
[2020-06-01] MEDS: DORZOLAMIDE-TIMOLOL 2.23%/0.68 10ML BTL LEFT EYE SCH ×2 (09:27→20:48)
[2020-06-01] MEDS: NICOTINE 21MG/24HR PATCH TRANSDERM SCH (09:32)
[2020-06-01 10:20] LABS: ALT 15 U/L (10-49); AST 19 U/L (14-35); Albumin/Globulin Ratio 2.29 (1.60-3.17); Alkaline Phosphatase 112 U/L (41-126); Blood Urea Nitrogen <5.0 mg/dL (9.0-27.0); Calcium 8.3 mg/dL (8.7-10.3); Carbon Dioxide 25.8 mmol/L (21.6-31.8); Chloride 101 mmol/L (96-109); Globulin 1.7 g/dL (1.6-3.3); Glucose 122 mg/dL (70-110); Magnesium 2.4 mg/dL (1.5-2.4); Non-African American GFR(CKD) 94.9 (60.0-200.0); Phosphorus 1.8 mg/dL (2.4-5.1); Potassium 3.7 mmol/L (3.5-5.5); Sodium 135 mmol/L (135-145); Total Bilirubin 0.3 mg/dL (0.3-1.2); Total Protein 5.6 g/dL (6.2-8.2)
--- NOTE | 2020-06-01 11:54 | CDI ---
Documentation Clarification Form Date: 06/01/2020 11:41:47 AM From: Olesya Vargas CCS, CCDS Admit Date: 05/31/2020 04:05:00 AM Patient Name: Clyde Pascual Visit Number: [id number] Discharge Date: ATTENTION: The Clinical Documentation Specialists (CDI) and [facility] Coding Staff appreciate your assistance in clarifying documentation. Please respond to the clarification below the line at the bottom and electronically sign. The CDI & [facility] Coding staff will review the response and follow-up if needed. Please note: Queries are made part of the Legal Health Record. If you have any questions, please contact the author of this message via ITS. Dr. Pop Castaneda: Your patient had a hemoglobin/hematocrit level of 14.5/40.8 on admission date of 05/31. On 06/01 hemoglobin/hematocrit level is 11.8/35.0 Please clarify if there is an additional diagnosis and/or clinical significance related to these lab values. History/Risk Factors Per the 05/31 H/P Past Medical History: CAD, Angina, GERD, Hyperlipidemia, Hypertension, Myocardial Infarction, Chronic Hyponatremia, Osteoarthritis, SVT with ablation, Duodenal ulcers, Chronic duodenal stricture, Bilateral glaucoma, Sinusitis, Migraines, Anemia, Esophagitis, Hiatal hernia, Chronic back pain. Cholecystectomy, Heart Catheterization With Stent. Bilateral Cataract Extraction with lens implants, EGDs/colonoscopies. Clinical indicators: Presented to the ED on 05/31 via EMS with Weakness, nausea & vomiting & coffee ground emesis with pain in lower abdomen, complaining of dizziness. Admitted with Intractable nausea & vomiting. Per the CT Abdomen & Pelvis: Enteritis. 05/31 VS: T 98.3, P 90, R 18, BP 143/82, PO 98 RA 05/31 LAB: Na 128, K 3.0, Cl 90, BUN 3, Gluc 114, Phos 2.3, Mag 1.5 Treatment: IV Zofran, IV fluid 1,000 mls @ 130 mls/hr q7H, IV fluid 1,000 mls @ 999 mls/hr q1H x2, IV Dilaudid x2, IV Ativan x3, IV Kcl 1,000 mls @ 120 ls/hr q8H, IV Kcl 100 mls @ 50 mls/hr q2H, po Phoslo, IV MagSulfate/Dextrose 100 mls @ 100 mls/hr q1H, IV Zozyn/Tazobactam Na, IV Protonix, IV Reglan, Heparin sq q8H. Is there an additional diagnosis and/or clinical significance related to the above lab result/information: [ ] Acute blood loss anemia [ ] Acute on chronic blood loss anemia [ ] Chronic blood loss anemia [ ] Anemia of chronic disease [ x ] Unable to determine [ ] Other, please specify (Template Last Revised: April 2020) MTDD
[2020-06-01] MEDS ORDERED: Phosphorus Replacement Protoco 1 EACH MISC MISCELLANE PRN (12:28)
--- NOTE | 2020-06-01 12:32 | P.PN ---
Subjective Progress Note Date: 06/01/20 HISTORY OF PRESENT ILLNESS This is a 67-year-old male patient of Dr. Castaneda and Dr. SELENA Goode with past medical history of coronary artery disease status post stenting, SVT status post ablation, hypertension, hyperlipidemia, gastroesophageal reflux disease, steroid injections of the cervical spine along with radiofrequency ablation, history of gastric ulcers, chronic duodenal stricture EGD in 2016 suggested stable duodenal stricture. Patient had repeat EGD December [address] Subramanian that revealed multiple scattered punctate-like ulcerations in the distal esophagus suspicious for viral esophagitis and antral gastritis. Patient has a history of seizure activity in 2018 admission secondary to hyponatremia at 112. When patient was last seen in the office he was treated for diarrhea and was placed on Levaquin and Flagyl which patient states he completed a course of antibiotics. Patient states she he was doing well until yesterday and developed nausea and vomiting. He has been taking a bland diet. He also complains of aching all over for the last couple days. Emesis is coffee-colored any complaints of pain in the lower abdomen. He denies any fever or chills. He denies any sick contacts. He does complain of dizziness. His last bowel movement was yesterday and was soft. Patient presents to [facility] emergency center for evaluation. He was afebrile, heart rate 90, blood pressure 143/82, pulse ox 98% on room air. EKG was a sinus rhythm. No acute ST changes. CBC was unremarkable. Sodium 128, potassium 3.0, chloride 90, CO2 27, BUN 3 and creatinine 0.99. Blood sugar 114. Troponin negative. Magnesium 1.5 liver function tests were normal. COVID-19 not detected. Influenza testing negative. Chest x-ray and acute abdominal series revealed no acute findings in the chest and abdomen or pelvis. CAT scan of the abdomen and pelvis showed mild small bowel wall thickening may reflect enteritis. No evidence of dilated bowel. Patient is status post 3 L of IV fluids. 06/01: Patient has been afebrile, heart rate running between 87 and 129. Blood pressure 144/74, pulse ox 98% on room air. Repeat blood work reveals normal lactic acid of 1.7. Electrolytes are all within normal limits. BUN less than 5 and creatinine 0.7. Blood sugar 122. Phosphorus 1.8, magnesium 2.4. Liver function tests are normal. Phosphorus will be replaced. Patient is tolerating clear liquid diet and we will advance to full liquids. Patient has been seen by Dr. Subramanian with recommendations to continue to replace electrolytes, antibiotics, Bentyl 10 mg 3 times daily for diarrhea, start clear liquid diet and advance as tolerated. No plan for endoscopy. Anticipate probable discharge home tomorrow. REVIEW OF SYSTEMS Constitutional: No fever, no chills, no night sweats. No weight change. No weakness, fatigue or lethargy. No daytime sleepiness. EENT: No headache. No blurred vision or double vision, no loss of vision. No loss of Hearing, no ringing in the ears, no dizziness. No nasal drainage or con gestion. No epistaxis. No sore throat. Lungs: No shortness of breath, cough, no sputum production. No wheezing. Cardiovascular: Denies chest pain, no lower extremity edema. No palpitations. No paroxysmal nocturnal dyspnea. No orthopnea. No lightheadedness or dizziness. No syncopal episodes. Abdominal Reports abdominal pain. Reports nausea, reports vomiting. No diarrhea. No constipation. No bloody or tarry stools. Reports loss of appetite. Genitourinary: No dysuria, increased frequency, urgency. No urinary retention. Musculoskeletal: No myalgias. No muscle weakness, no gait dysfunction, no frequent falls. No back pain. No neck pain. Integumentary: No wounds, no lesions. No rash or pruritus. No unusual bruising. Neurologic: No aphasia. No facial droop. No change in mentation. No head injury. No headache. No paralysis. No paresthesia. Psychiatric: No depression. No anxiety. Endocrine: No abnormal blood sugars. No weight change. PHYSICAL EXAMINATION Gen: This is is a 69-year-old male. Patient is resting on ER stretcher and appears comfortable and in no acute distress. HEENT: Head is atraumatic, normocephalic. Pupils equal, round. Sclerae is anicteric. Patchy redness in the face. NECK: Supple. No JVD. No lymphadenopathy. No thyromegaly. LUNGS: Clear to auscultation. No wheezes or rhonchi. No intercostal retractions . HEART: Regular rate and rhythm. No murmur. No tenderness ABDOMEN: Soft. Bowel sounds are present. No masses Lower abd tenderness. EXTREMITIES: No pedal edema. No calf tenderness.Dorsalis pedis +2 bilaterally. NEUROLOGICAL: Patient is awake, alert and oriented x3. Cranial nerves 2 through 12 are grossly intact. ASSESSMENT AND PLAN 1. Intractable nausea and vomiting. Advance diet to full liquids, GI consult appreciated, continue Reglan 5 mg IV push every 6 hours, Zofran 4 mg IV push every 6 hours as needed, scopolamine patch added for intractable nausea and vom iting. Continue Bentyl 10 mg 3 times daily. 2. Abdominal pain, CAT scan positive for enteritis. Patient started on Zosyn 3.375 g IV piggyback every 8 hours area. GI consult. 3. Hyponatremia, chronic. Continue IV fluids of 0.9 normal saline at 130 mL per hour, recheck CMP in the morning. 4. History of coronary artery disease status post stenting. Continue Lopressor 25 mg twice daily, Zocor 40 mg at bedtime. 5. Hypertension. Continue losartan 100 mg daily, Lopressor 25 mg twice daily. Hold Lasix. 6. Gastroesophageal reflux disease. Continue Protonix 40 mg changed to IV twice daily, continue Carafate 1 g before meals and at bedtime. 7. Recurrent depression. Continue Lexapro 50 mg daily, Valium 5 mg at bedtime as needed. 8. Hyperlipidemia. Continue simvastatin 40 mg at bedtime. 9. Degenerative disc disease of the cervical spine. Continue gabapentin 600 mg 3 times daily. 10. electrolyte abnormalities with hyponatremia, hypokalemia, hypophosphatemia, hypomagnesemia status post replacements. Recheck in the morning. 11. DVT prophylaxis. Heparin subcu. DISCHARGE PLAN Home on Thursday. Impression and plan of care have been directed as dictated by the signing physician. Zahra Lainez nurse practitioner acting as scribe for signing physician. Objective - Vital Signs Vital signs: Vital Signs Temp 99.3 F 06/01/20 01:51 Pulse 97 06/01/20 01:51 Resp 16 06/01/20 01:51 BP 159/73 06/01/20 01:51 Pulse Ox 97 06/01/20 01:51 Intake & Output 05/31/20 06/01/20 06/01/20 18:59 06:59 18:59 Intake Total 1060 Balance 1060 Weight 88.451 kg Intake: Intake, IV Titration 1060 Amount 0.9% NaCl with KCl 20 Meq 960 /l 1,000 ml @ 120 mls/hr IV .[id number] DANIEL Rx#: [id number] Piperacillin-Tazobactam 3 100 .375 gm In Sodium Chloride 0.9% 100 ml @ 25 mls/hr IVPB Q8HR [facility] Rx# :[id number] Other: Voiding Method Toilet # Voids 2 2 # Bowel Movements 1 - Labs CBC & Chem 7: 06/01/20 05:44 06/01/20 05:44 Labs: Abnormal Lab Results - Last 24 Hours (Table) 05/31/20 05/31/20 Range/Units 09:19 09:19 Sodium 131 L (137-145) mmol/L Potassium 3.3 L (3.5-5.1) mmol/L Carbon Dioxide 21 L (22-30) mmol/L BUN 2 L (9-20) mg/dL Creatinine 0.57 L (0.66-1.25) mg/dL Glucose 127 H (74-99) mg/dL Plasma Lactic Acid Ney 3.5 H* (0.7-2.0) mmol/L
[2020-06-01] MEDS: POTASSIUM PHOSPHATE 10 MMOL in SODIUM CHLORIDE 0.9% 250 ML IV SCH ×2 (13:09→15:33)
[2020-06-01 14:58] VITALS: BMI 26.4
--- NOTE | 2020-06-01 16:26 | PN ---
PROGRESS NOTE DATE OF DICTATION: 06/01/2020 The patient is a 69-year-old pleasant white male admitted to the hospital with nausea, vomiting, diarrhea and body aches for the last 1-2 weeks' duration. He was noted to have electrolyte abnormalities. CT scan showed some thickening of the small bowel. He was started on broad-spectrum antibiotics. He is doing somewhat better. The nausea and vomiting have resolved. He had about 3 loose bowel movements today. He denies any abdominal pain. He remains on a clear liquid diet. PHYSICAL EXAMINATION: He appears comfortable. VITAL SIGNS: Stable. Blood pressure 151/82, pulse rate 77, temperature 98. HEENT examination unremarkable. Conjunctivae pink. Sclerae anicteric. Oral cavity no lesions. NECK: No JVD or lymph node enlargement. CHEST: Clear to auscultation. HEART: Regular rate and rhythm. ABDOMEN: Soft. It was non-tender, non-distended. Bowel sounds are positive. No organomegaly. EXTREMITIES: No pedal edema. NEUROLOGIC: Alert and oriented x3. No focal deficits. LABS: WBC 9, hemoglobin 11.8, platelets are normal. Basic metabolic panel is within normal limits. Phosphorus is 1.81, plasma lactic acid 1.7. IMPRESSION: 1. Nausea, vomiting and diarrhea, probably secondary to acute gastroenteritis; patient on broad-spectrum antibiotics and symptoms are gradually improving. 2. Electrolyte abnormalities, being replaced. 3. History of coronary artery disease. 4. History of hypertension and hyperlipidemia. 5. Anxiety and depression. RECOMMENDATIONS: 1. Continue with symptomatic and supportive care. 2. Continue antibiotics. 3. Advance diet as tolerated. Patient states that he wants to remain on a full liquid diet for today, so tomorrow if he is doing well we will advance to a regular diet. 4. Monitor labs closely. Will follow with you. Thank you for this consultation. MMODL / IJN: [id number] /
[2020-06-01] MEDS: LATANOPROST 0.005% OPHTH DROPS 2.5 ML BTL LEFT EYE SCH (20:48)
[2020-06-01] MEDS: SIMVASTATIN 40 MG PO SCH (20:49)
[2020-06-02] MEDS: METOCLOPRAMIDE 5 MG/ML 2 ML VIAL IVP SCH ×3 (00:37→12:39)
[2020-06-02] MEDS: PIPERACILLIN-TAZOBACTAM 3.375 GM in SODIUM CHLORIDE 0.9% 100 ML IVPB SCH ×3 (00:37→15:42)
[2020-06-02] MEDS: HEPARIN SODIUM,PORCINE/PF 5,000 UNIT/0.5 ML SYRINGE SQ SCH ×3 (00:37→15:42)
[2020-06-02 01:25] LABS: Magnesium 2.2 mg/dL (1.5-2.4)
[2020-06-02] MEDS: HYDROmorphone 1 MG/ML 1 ML SYRINGE IVP PRN ×2 (02:26→08:06)
[2020-06-02 07:58] VITALS: RESP 16
[2020-06-02] MEDS: CALCIUM ACETATE 667 MG TAB PO SCH (08:04)
[2020-06-02] MEDS: PANTOPRAZOLE 40 MG/10 ML VIAL IVP SCH (08:04)
[2020-06-02] MEDS: LOSARTAN 50 MG TAB PO SCH (08:04)
[2020-06-02] MEDS: METOPROLOL TARTRATE 25 MG TAB PO SCH (08:04)
[2020-06-02] MEDS: SUCRALFATE 1 GM TAB PO SCH ×2 (08:04→12:38)
[2020-06-02] MEDS: DICYCLOMINE 10 MG CAP PO SCH ×2 (08:04→15:43)
[2020-06-02] MEDS: GABAPENTIN 300 MG CAP PO SCH ×2 (08:04→15:42)
[2020-06-02] MEDS: CHOLECALCIFEROL 25 MCG (1000 IU) TABLET PO SCH (08:04)
[2020-06-02] MEDS: NICOTINE 21MG/24HR PATCH TRANSDERM SCH (08:04)
[2020-06-02] MEDS: ESCITALOPRAM 5 MG TAB PO SCH (08:05)
[2020-06-02 09:36] LABS: Blood Urea Nitrogen <5.0 mg/dL (9.0-27.0); Calcium 8.5 mg/dL (8.7-10.3); Carbon Dioxide 26.2 mmol/L (21.6-31.8); Chloride 104 mmol/L (96-109); Glucose 102 mg/dL (70-110); Magnesium 2.2 mg/dL (1.5-2.4); Non-African American GFR(CKD) 94.9 (60.0-200.0); Phosphorus 2.9 mg/dL (2.4-5.1); Potassium 3.8 mmol/L (3.5-5.5); Sodium 137 mmol/L (135-145)
[2020-06-02] MEDS: BRIMONIDINE TARTRATE 0.2% DROPS 5 ML BTL LEFT EYE SCH (10:14)
[2020-06-02] MEDS: DORZOLAMIDE-TIMOLOL 2.23%/0.68 10ML BTL LEFT EYE SCH (10:15)
--- NOTE | 2020-06-02 12:40 | PN ---
PROGRESS NOTE DATE OF SERVICE: 06/02/2020 INTERVAL HISTORY: The patient is a 69-year-old pleasant white male admitted to hospital with abdominal pain, body aches, nausea, vomiting, diarrhea for the last few days duration. His CT scan showed some questionable enteritis and he was started on broad-spectrum antibiotics. Overall he is feeling better. The nausea and vomiting has resolved. He did not have any diarrhea today. On a soft diet and tolerating well. PHYSICAL EXAMINATION: GENERAL: Appears comfortable. VITAL SIGNS: Stable. Blood pressure 152/76, pulse rate 81, temperature 97.5. HEENT: Examination unremarkable. Conjunctivae are pink. Sclerae anicteric. Oral cavity no lesions. NECK: No JVD or lymph node enlargement. CHEST: Clear to auscultation. HEART: Regular rate and rhythm. ABDOMEN: Soft. Bowel sounds positive. Nontender, nondistended. EXTREMITIES: No pedal edema. NEURO: He is alert and oriented x3. No focal deficits. LABS: From today, basic metabolic panel is within normal limits with a BUN of 26, creatinine 6. Electrolytes are normal. IMPRESSION: 1. Acute onset of nausea, vomiting, diarrhea for the last one week duration. Possible gastroenteritis. On broad-spectrum antibiotics. Overall clinical condition has significantly improved. 2. Myalgias and arthralgias are resolving. 3. History of anxiety and depression. Remains on Ativan as needed. 4. History of hypertension and hyperlipidemia. 5. Longstanding history of irritable bowel syndrome. RECOMMENDATIONS: 1. Continue current management. 2. Advance diet as tolerated. 3. Increase ambulation. 4. He can be discharged home today or tomorrow with outpatient followup in a couple of weeks. Thank you for this consultation. MMODL / IJN: [id number] /
[2020-06-02 15:47] VITALS: BP 147/78; PULSE 80; TEMP 97.8
--- NOTE | 2020-06-07 13:02 | P.DS ---
Providers Date of admission: 05/31/20 04:05 Expected date of discharge: 06/02/20 Attending physician: Pop Castaneda MD Consults: 05/31/20 08:31 Consult Physician Routine Consulting Provider: Leyla Subramanian Consult Reason/Comments: nausea and vomiting Do you want consulting provider notified?: Yes Primary care physician: Pop Castaneda MD Hospital Course: HISTORY OF PRESENT ILLNESS This is a 67-year-old male patient of Dr. Castaneda and Dr. SELENA Goode with past medical history of coronary artery disease status post stenting, SVT status post ablation, hypertension, hyperlipidemia, gastroesophageal reflux disease, steroid injections of the cervical spine along with radiofrequency ablation, history of gastric ulcers, chronic duodenal stricture EGD in 2016 suggested stable duodenal stricture. Patient had repeat EGD December [address] Subramanian that revealed multiple scattered punctate-like ulcerations in the distal esophagus suspicious for viral esophagitis and antral gastritis. Patient has a history of seizure activity in 2018 admission secondary to hyponatremia at 112. When patient was last seen in the office he was treated for diarrhea and was placed on Levaquin and Flagyl which patient states he completed a course of antibiotics. Patient states she he was doing well until yesterday and developed nausea and vomiting. He has been taking a bland diet. He also complains of aching all over for the last couple days. Emesis is coffee-colored any complaints of pain in the lower abdomen. He denies any fever or chills. He den ies any sick contacts. He does complain of dizziness. His last bowel movement was yesterday and was soft. Patient presents to [facility] for evaluation. He was afebrile, heart rate 90, blood pressure 143/82, pulse ox 98% on room air. EKG was a sinus rhythm. No acute ST changes. CBC was unremarkable. Sodium 128, potassium 3.0, chloride 90, CO2 27, BUN 3 and creatinine 0.99. Blood sugar 114. Troponin negative. Magnesium 1.5 liver function tests were normal. COVID-19 not detected. Influenza testing negative. Chest x-ray and acute abdominal series revealed no acute findings in the chest and abdomen or pelvis. CAT scan of the abdomen and pelvis showed mild small bowel wall thickening may reflect enteritis. No evidence of dilated bowel. Patient is status post 3 L of IV fluids. 4/2: Patient has been afebrile, heart rate running between 87 and 129. Blood pressure 144/74, pulse ox 98% on room air. Repeat blood work reveals normal lactic acid of 1.7. Electrolytes are all within normal limits. BUN less than 5 and creatinine 0.7. Blood sugar 122. Phosphorus 1.8, magnesium 2.4. Liver function tests are normal. Phosphorus will be replaced. Patient is tolerating clear liquid diet and we will advance to full liquids. Patient has been seen by Dr. Subramanian with recommendations to continue to replace electrolytes, antibiotics, Bentyl 10 mg 3 times daily for diarrhea, start clear liquid diet and advance as tolerated. No plan for endoscopy. Anticipate probable discharge home tomorrow. REVIEW OF SYSTEMS Constitutional: No fever, no chills, no night sweats. No weight change. No weakness, fatigue or lethargy. No daytime sleepiness. EENT: No headache. No blurred vision or double vision, no loss of vision. No loss of Hearing, no ringing in the ears, no dizziness. No nasal drainage or congestion. No epistaxis. No sore throat. Lungs: No shortness of breath, cough, no sputum production. No wheezing. Cardiovascular: Denies chest pain, no lower extremity edema. No palpitations. No paroxysmal nocturnal dyspnea. No orthopnea. No lightheadedness or dizziness. No syncopal episodes. Abdominal Reports abdominal pain. Reports nausea, reports vomiting. No diarrhea. No constipation. No bloody or tarry stools. Reports loss of appetite. Genitourinary: No dysuria, increased frequency, urgency. No urinary retention. Musculoskeletal: No myalgias. No muscle weakness, no gait dysfunction, no frequent falls. No back pain. No neck pain. Integumentary: No wounds, no lesions. No rash or pruritus. No unusual bruising. Neurologic: No aphasia. No facial droop. No change in mentation. No head injury. No headache. No paralysis. No paresthesia. Psychiatric: No depression. No anxiety. Endocrine: No abnormal blood sugars. No weight change. PHYSICAL EXAMINATION Gen: This is is a 69-year-old male. Patient is resting on ER stretcher and appears comfortable and in no acute distress. HEENT: Head is atraumatic, normocephalic. Pupils equal, round. Sclerae is anicteric. Patchy redness in the face. NECK: Supple. No JVD. No lymphadenopathy. No thyromegaly. LUNGS: Clear to auscultation. No wheezes or rhonchi. No intercostal retractions. HEART: Regular rate and rhythm. No murmur. No tenderness ABDOMEN: Soft. Bowel sounds are present. No masses Lower abd tenderness. EXTREMITIES: No pedal edema. No calf tenderness.Dorsalis pedis +2 bilaterally. NEUROLOGICAL: Patient is awake, alert and oriented x3. Cranial nerves 2 through 12 are grossly intact. ASSESSMENT AND PLAN 1. Intractable nausea and vomiting. Advance diet to full liquids, GI consult appreciated, continue Reglan 5 mg IV push every 6 hours, Zofran 4 mg IV push every 6 hours as needed, scopolamine patch added for intractable nausea and vomiting. Continue Bentyl 10 mg 3 times daily. 2. Abdominal pain, CAT scan positive for enteritis. Patient started on Zosyn 3.375 g IV piggyback every 8 hours area. GI consult. 3. Hyponatremia, chronic. Continue IV fluids of 0.9 normal saline at 130 mL per hour, recheck CMP in the morning. 4. History of coronary artery disease status post stenting. Continue Lopressor 25 mg twice daily, Zocor 40 mg at bedtime. 5. Hypertension. Continue losartan 100 mg daily, Lopressor 25 mg twice daily. Hold Lasix. 6. Gastroesophageal reflux disease. Continue Protonix 40 mg changed to IV twice daily, continue Carafate 1 g before meals and at bedtime. 7. Recurrent depression. Continue Lexapro 50 mg daily, Valium 5 mg at bedtime as needed. 8. Hyperlipidemia. Continue simvastatin 40 mg at bedtime. 9. Degenerative disc disease of the cervical spine. Continue gabapentin 600 mg 3 times daily. 10. electrolyte abnormalities with hyponatremia, hypokalemia, hypophosphatemia, hypomagnesemia status post replacements. Recheck in the morning. 11. DVT prophylaxis. Heparin subcu. Pt is doing very well and stable will be discharged home today. Patient Condition at Discharge: Good Plan - Discharge Summary Discharge Rx Participant: No New Discharge Prescriptions: New Levofloxacin [Levaquin] 500 mg PO DAILY 1 Days #7 tab metroNIDAZOLE 250 mg PO TID #30 tablet Continue Simvastatin [Zocor] 40 mg PO HS Pantoprazole Sodium 40 mg PO BID Dicyclomine [Bentyl] 10 mg PO TID Dorzolamide-Timol 2.23%/0.68% [Cosopt] 1 drop LEFT EYE BID Gabapentin [Neurontin] 600 mg PO TID Metoprolol Tartrate [Lopressor] 25 mg PO BID Ondansetron [Zofran ODT] 4 mg PO BID PRN PRN Reason: Nausea Losartan Potassium 100 mg PO DAILY Latanoprost [Xalatan 0.005%] 1 drop LEFT EYE HS Escitalopram [Lexapro] 15 mg PO DAILY Butalb/APAP/Caff 50-325-40Mg [Fioricet 50-325-40] 2 tab PO Q6H PRN MDD 3caps/24hr PRN Reason: Migraine Headache Cholecalciferol [Vitamin D3 (25 Mcg = 1000 Iu)] 2,000 unit PO DAILY Brimonidine Tartrate [Alphagan P 0.2% Ophth Soln] 1 drop LEFT EYE BID Potassium Chloride ER [K-Dur 20] 20 meq PO DAILY Furosemide [Lasix] 20 mg PO DAILY Diazepam [Valium] 5 mg PO HS PRN PRN Reason: INSOMNIA/ANXIETY Testosterone Cypionate [Depo-Testosterone] 100 mg IM Q14D Acetaminophen Tab [Tylenol] 650 mg PO Q4H PRN PRN Reason: Pain Sucralfate [Carafate] 1 gm PO ACHS #1200 ml Metoclopramide HCl [Reglan] 10 mg PO TID Ondansetron [Zofran] 4 mg PO Q12HR PRN PRN Reason: Nausea Discharge Medication List Simvastatin [Zocor] 40 mg PO HS 07/12/13 [History] Pantoprazole Sodium 40 mg PO BID 06/26/16 [History] Dicyclomine [Bentyl] 10 mg PO TID 06/04/17 [History] Dorzolamide-Timol 2.23%/0.68% [Cosopt] 1 drop LEFT EYE BID 01/27/18 [History] Gabapentin [Neurontin] 600 mg PO TID 04/26/18 [History] Latanoprost [Xalatan 0.005%] 1 drop LEFT EYE HS 09/20/18 [History] Losartan Potassium 100 mg PO DAILY 09/20/18 [History] Metoprolol Tartrate [Lopressor] 25 mg PO BID 09/20/18 [History] Ondansetron [Zofran ODT] 4 mg PO BID PRN 09/20/18 [History] Butalb/APAP/Caff 50-325-40Mg [Fioricet 50-325-40] 2 tab PO Q6H PRN MDD 3caps/24hr 10/06/18 [History] Escitalopram [Lexapro] 15 mg PO DAILY 10/06/18 [History] Brimonidine Tartrate [Alphagan P 0.2% Ophth Soln] 1 drop LEFT EYE BID 12/25/19 [History] Cholecalciferol [Vitamin D3 (25 Mcg = 1000 Iu)] 2,000 unit PO DAILY 12/25/19 [History] Diazepam [Valium] 5 mg PO HS PRN 12/25/19 [History] Furosemide [Lasix] 20 mg PO DAILY 12/25/19 [History] Potassium Chloride ER [K-Dur 20] 20 meq PO DAILY 12/25/19 [History] Testosterone Cypionate [Depo-Testosterone] 100 mg IM Q14D 12/25/19 [History] Acetaminophen Tab [Tylenol] 650 mg PO Q4H PRN 12/28/19 [History] Sucralfate [Carafate] 1 gm PO ACHS #1200 ml 12/30/19 [Rx] Metoclopramide HCl [Reglan] 10 mg PO TID 05/25/20 [History] Ondansetron [Zofran] 4 mg PO Q12HR PRN 05/25/20 [History] Levofloxacin [Levaquin] 500 mg PO DAILY 1 Days #7 tab 06/02/20 [Rx] metroNIDAZOLE 250 mg PO TID #30 tablet 06/02/20 [Rx] Follow up Appointment(s)/Referral(s): Pop Castaneda MD [Primary Care Provider] - 1-2 days Leyla Subramanian MD [STAFF PHYSICIAN] - 1 Week Patient Instructions/Handouts: Enteritis (DC) Activity/Diet/Wound Care/Special Instructions: Zofran sent to pharm from office. Discharge Disposition: HOME SELF-CARE
== END 2020-06-02 17:28 | disposition home or self-care (01) | DRG 392 ==
LOC: EC 02:00 → 6NMEDSUR 04:05
PROVIDERS: ADMIT Internal Medicine; ATTEND Internal Medicine
DX: K52.9 Noninfective gastroenteritis and colitis, unspecified (principal); E87.1 Hypo-osmolality and hyponatremia; F33.9 Major depressive disorder, recurrent, unspecified; Z20.822 Contact with and (suspected) exposure to COVID-19; E86.0 Dehydration; E78.5 Hyperlipidemia, unspecified; I10 Essential (primary) hypertension; G43.909 Migraine, unspecified, not intractable, without status migrainosus; K21.00 Gastro-esophageal reflux disease with esophagitis, without bleeding; K44.9 Diaphragmatic hernia without obstruction or gangrene; I25.10 Atherosclerotic heart disease of native coronary artery without angina pectoris; M50.30 Other cervical disc degeneration, unspecified cervical region; G89.29 Other chronic pain; M54.9 Dorsalgia, unspecified; F41.9 Anxiety disorder, unspecified; E87.6 Hypokalemia; E83.42 Hypomagnesemia; E83.39 Other disorders of phosphorus metabolism; M79.10 Myalgia, unspecified site; K58.9 Irritable bowel syndrome, unspecified; I25.2 Old myocardial infarction; H40.9 Unspecified glaucoma; M19.90 Unspecified osteoarthritis, unspecified site; Z79.890 Hormone replacement therapy; Z79.899 Other long term (current) drug therapy; Z87.891 Personal history of nicotine dependence; Z86.79 Personal history of other diseases of the circulatory system; Z86.2 Personal history of diseases of the blood and blood-forming organs and certain disorders involving the immune mechanism; Z87.11 Personal history of peptic ulcer disease; Z98.42 Cataract extraction status, left eye; Z98.41 Cataract extraction status, right eye; Z96.1 Presence of intraocular lens; Z87.81 Personal history of (healed) traumatic fracture; Z90.49 Acquired absence of other specified parts of digestive tract; Z98.890 Other specified postprocedural states; Z87.19 Personal history of other diseases of the digestive system; Z95.5 Presence of coronary angioplasty implant and graft; Z88.8 Allergy status to other drugs, medicaments and biological substances; Z82.49 Family history of ischemic heart disease and other diseases of the circulatory system; Z80.0 Family history of malignant neoplasm of digestive organs; Z80.8 Family history of malignant neoplasm of other organs or systems; Z83.3 Family history of diabetes mellitus
CPT/HCPCS: 36415; 74022; 74177; 80048; 80053; 83605; 83735; 84100; 84484; 85025; 85652; 86140; 87502; 87635; 93005; 96361; 96374; 96375; 96376; 99285

== ENCOUNTER 2020-06-11 11:50 | Day surgery (SDC) | payer MEDICARE ==
[2020-06-07 15:01] VITALS: BMI 25.0
[~2020-06-11 11:50] MED LIST changes: +LIDOCAINE 1% (10MG/ML) FOR IV START INTRADERMA PRN
[2020-06-11 12:12] VITALS: TEMP 97.8
[2020-06-11] MEDS ORDERED: LACTATED RINGERS 1,000 ML IV ONE ×2 (12:20)
[2020-06-11] MEDS ORDERED: PROPOFOL 10 MG/ML 20 ML VIAL IV ONE (13:01)
[2020-06-11] MEDS ORDERED: LIDOCAINE 1% INJ 10MG/ML (20 ML MDV) ONE (13:01)
--- NOTE | 2020-06-11 13:19 | P.PCN ---
Date of Procedure: 06/11/20 Procedure(s) Performed: BRIEF HISTORY: Patient is a 69-year-old pleasant male scheduled for an elective colonoscopy as a part of evaluation of chronic diarrhea for the last several months duration. PROCEDURE PERFORMED: Colonoscopy with random biopsies. PREOPERATIVE DIAGNOSIS: Chronic diarrhea. IV sedation per Anesthesia. PROCEDURE: After informed consent was obtained, the patient, was brought into the endoscopy unit. IV sedation was administered by Anesthesia under continuous monitoring. Digital rectal examination was normal. Initially the Olympus CF-160 flexible video colonoscope was then inserted in the rectum, gradually advanced into the cecum without any difficulty. Careful examination was performed as the scope was gradually being withdrawn. Ileocecal valve and the appendiceal orifice were visualized and appeared normal. Prep was excellent. The mid ileum was intubated and 20 cm visualized and appeared normal. Mucosa of the cecum, ascending colon, transverse colon, descending colon, sigmoid colon, and rectum appeared normal. Random biopsies were done from ascending and descending colon to rule out microscopic/collagenous colitis. Retroflexion was performed in the rectum and no lesions were seen. The patient tolerated the procedure well. IMPRESSION: Normal-appearing colon from rectum to cecum with no evidence of colitis or colorectal neoplasia. RECOMMENDATIONS: Findings of this examination were discussed with the patient as well as his family. He was advised to follow with the biopsy results and he'll be seen in office in 2 weeks..
[2020-06-11 13:39] VITALS: BP 128/71; PULSE 55; RESP 18
== END 2020-06-11 13:53 | disposition home or self-care (01) ==
LOC: ORWHC2ENDO 11:50
PROVIDERS: ATTEND Internal Medicine Gastroenterology
DX: K52.9 Noninfective gastroenteritis and colitis, unspecified (principal); K21.9 Gastro-esophageal reflux disease without esophagitis; K44.9 Diaphragmatic hernia without obstruction or gangrene; I25.10 Atherosclerotic heart disease of native coronary artery without angina pectoris; I25.2 Old myocardial infarction; I10 Essential (primary) hypertension; E78.5 Hyperlipidemia, unspecified; Z79.899 Other long term (current) drug therapy; Z88.8 Allergy status to other drugs, medicaments and biological substances; Z95.5 Presence of coronary angioplasty implant and graft
CPT/HCPCS: 45380; J2001; J2704; 88305

== ENCOUNTER → 2020-08-25 | Outpatient (CLI) | payer MEDICARE ==
--- NOTE | 2020-08-25 16:16 | MR ---
EXAMINATION TYPE: MR cervical spine wo con DATE OF EXAM: 08/25/2020 COMPARISON: None HISTORY: Neck pain, headaches, BUE weakness x 10 yrs. The cervical vertebra have normal alignment. There is mild narrowing and decreased signal in the disk s at C to 3 and C4-5 and C5-6. There is no compression fracture. There is posterior mild spurring and disc bulging at C3-4. There is similar change at C6-7. There is developmentally adequate spinal kierra l. The canal measures 9.5 mm at C3-4. Canal measures 11 mm at C6-7. Cervical cord shows normal signal pattern. There is no edema. Brainstem is intact. I see no focal bone destruction. There is uncovertebral spurring and left side neural foraminal narrowing at C4-5. There is similar ch eliza at C6-7. IMPRESSION: Small posterior disc herniations at C3-4 and C6-7. No spinal stenosis. No fracture. Mild left side neural foraminal impingement at C4-5 and C6-7.
== END | disposition home or self-care (01) ==
LOC: RADMRIMAIN 14:36
PROVIDERS: ATTEND Internal Medicine
DX: M50.223 Other cervical disc displacement at C6-C7 level (principal); M99.71 Connective tissue and disc stenosis of intervertebral foramina of cervical region
CPT/HCPCS: 72141

== ENCOUNTER → 2020-08-29 | Outpatient (CLI) | payer MEDICARE ==
[2020-08-29 11:37] LABS: HCT 37.7 % (39.6-50.0); HGB 12.1 g/dL (13.0-17.0); MCH 30.9 pg (27.0-32.0); MCHC 32.1 g/dL (32.0-37.0); MCV 96.2 fL (80.0-97.0); Mean Platelet Volume 9.5 fL (9.5-12.2); Platelet Count 308 X 10*3/uL (140-440); RBC 3.92 X 10*6/uL (4.40-5.60); RDW 12.8 % (11.5-14.5); WBC 5.96 X 10*3/uL (4.50-10.00)
[2020-08-29 13:49] LABS: African American GFR (CKD) 104.2 (60.0-200.0); Albumin 4.2 g/dL (3.80-4.90); Albumin/Globulin Ratio 1.91 (1.60-3.17); Anion Gap 7.6 mmol/L (4.00-12.00); BUN/Creat Ratio 12.5 Ratio (12.00-20.00); Calcium 8.9 mg/dL (8.7-10.3); Carbon Dioxide 24.4 mmol/L (21.6-31.8); Globulin 2.2 g/dL (1.6-3.3); Non-African American GFR(CKD) 89.9 (60.0-200.0); Potassium 4.2 mmol/L (3.5-5.5); Total Bilirubin 0.1 mg/dL (0.2-1.2); Total Protein 6.4 g/dL (6.2-8.2)
[2020-08-29 13:59] LABS: Prostate Specific Antigen 2.9 ng/mL (0.0-6.5)
[2020-08-29 14:08] LABS: Folate, Serum 10.6 ng/mL
== END | disposition home or self-care (01) ==
LOC: LABWHC1 06:52
PROVIDERS: ATTEND Internal Medicine
DX: E87.1 Hypo-osmolality and hyponatremia (principal); R11.2 Nausea with vomiting, unspecified; F52.21 Male erectile disorder; R97.20 Elevated prostate specific antigen [PSA]; M54.12 Radiculopathy, cervical region
CPT/HCPCS: 36415; 80053; 82607; 82746; 84153; 84402; 84403; 84443; 85027

== ENCOUNTER → 2020-11-14 | Outpatient (CLI) | payer MEDICARE ==
--- NOTE | 2020-11-15 09:29 | NM ---
EXAMINATION TYPE: NM DatScan Brain SPECT DATE OF EXAM: 11/14/2020 COMPARISON: NONE HISTORY: Tremor. TECHNIQUE: 10 drops of Lugol's solution was administered 1 hour prior to injection as a thyroid bloc roderick agent. After the administration of 3.84 mCi I-123 Ioflupane DaTscan. Images obtained 3 hours p ost injection. SPECT images of the brain were acquired with axial and coronal reconstructions. FINDINGS: The DaTSCAN demonstrates normal uptake of tracer throughout the striata. Consequently there is no evidence of loss of the pre-synaptic dopaminergic terminals on this investig ation. IMPRESSION: This normal appearance is against a diagnosis of idiopathic Parkinson?s disease (PD) or a Parkinsonia n syndrome (PS) and is seen in healthy individuals and also patients with essential tremor (ET), drug induced parkinsonism, and vascular pseudo-parkinsonism.
== END | disposition home or self-care (01) ==
LOC: RADNMMAIN 10:44
PROVIDERS: ATTEND Nurse Practitioner Acute Care
DX: R25.1 Tremor, unspecified (principal)
CPT/HCPCS: 78803; A9584

== ENCOUNTER 2021-09-21 17:41 | Inpatient (IN) | payer OTHER, MEDICARE ==
[2021-09-21 18:25] LABS: Basophils # (A) 0.1 k/uL (0-0.2); Basophils % (A) 1 %; Eosinophils # (A) 0.2 k/uL (0-0.7); Eosinophils % (A) 2 %; HCT 37.8 % (39.0-53.0); HGB 13.3 gm/dL (13.0-17.5); Lymphocytes # (A) 1.5 k/uL (1.0-4.8); Lymphocytes % (A) 19 %; MCH 30.7 pg (25.0-35.0); MCHC 35.1 g/dL (31.0-37.0); MCV 87.5 fL (80.0-100.0); Mean Platelet Volume 6.2; Monocytes # (A) 0.8 k/uL (0-1.0); Monocytes % (A) 10 %; Neutrophils # (A) 5.5 k/uL (1.3-7.7); Neutrophils % (A) 66 %; Platelet Count 297 k/uL (150-450); RBC 4.32 m/uL (4.30-5.90); RDW 11.5 % (11.5-15.5); WBC 8.2 k/uL (3.8-10.6)
[2021-09-21 18:36] LABS: ALT 10 U/L (4-49); AST 17 U/L (17-59); African American GFR (CKD) >90 (>60 ml/min/1.73 sqM); Albumin 4.3 g/dL (3.5-5.0); Alkaline Phosphatase 72 U/L (38-126); Anion Gap 10 mmol/L; Blood Urea Nitrogen 4 mg/dL (9-20); Calcium 8.8 mg/dL (8.4-10.2); Carbon Dioxide 20 mmol/L (22-30); Chloride 84 mmol/L (98-107); Glucose 139 mg/dL (74-99); Non-African American GFR(CKD) >90 (>60 ml/min/1.73 sqM); Potassium 3.6 mmol/L (3.5-5.1); Total Bilirubin 0.6 mg/dL (0.2-1.3); Total Protein 6.7 g/dL (6.3-8.2)
--- NOTE | 2021-09-21 18:49 | XR ---
EXAMINATION TYPE: XR chest 2V DATE OF EXAM: 09/21/2021 6:41 PM COMPARISON: Chest radiographs from 12/25/2019. TECHNIQUE: XR chest 2V Frontal and lateral views of the chest. CLINICAL INDICATION:Male, 70 years old with history of cough; FINDINGS: Lungs/Pleura: There is no evidence of pleural effusion, focal consolidation, or pneumothorax. Pulmonary vascularity: Unremarkable. Heart/mediastinum: Cardiomediastinal silhouette is unremarkable. Musculoskeletal: No acute osseous pathology. IMPRESSION: No acute cardiopulmonary disease/process.
[2021-09-21 19:03] LABS: Sodium 114 mmol/L (137-145)
[2021-09-21] MEDS ORDERED: ONDANSETRON 4 MG/2 ML VIAL IVP STA (20:04)
[2021-09-21] MEDS ORDERED: SODIUM CHLORIDE 0.9% 1,000 ML IV STA (20:04)
[2021-09-21] MEDS ORDERED: MORPHINE SULFATE 4 MG/ML SYRINGE IVP STA (20:05)
[2021-09-21 20:06] LABS: Prothrombin Time 10.5 sec (9.0-12.0)
--- NOTE | 2021-09-21 20:12 | ED ---
General Adult HPI - General Chief complaint: Dizziness Stated complaint: dizziness, dehydration Time Seen by Provider: 09/21/21 19:16 Source: patient, RN notes reviewed Mode of arrival: wheelchair Limitations: no limitations - History of Present Illness Initial comments: 70-year-old male presents to the emergency department accompanied by his for evaluation of dizziness 4 days. States symptoms are accompanied by headache, productive cough, nausea, vomiting, and diarrhea. Reports loss of appetite and decreased oral intake. Complains of generalized body aches and worsening neuropathy. States he had an episode of hypotension (BP 90/50) on . States he is scheduled to see his PCP on Thursday, however reports the symptoms worsen therefore his spouse brought him to the emergency department. Denies fever, chills, neck pain, chest pain, shortness of breath, abdominal pain, constipation, dysuria, or hematuria. - Related Data Home Medications Medication Instructions Recorded Confirmed Simvastatin [Zocor] 40 mg PO HS 07/12/13 09/21/21 Dicyclomine [Bentyl] 10 mg PO TID 06/04/17 09/21/21 Latanoprost [Xalatan 0.005%] 1 drop BOTH EYES HS 09/20/18 09/21/21 Losartan Potassium 100 mg PO DAILY 09/20/18 09/21/21 Metoprolol Tartrate [Lopressor] 25 mg PO BID 09/20/18 09/21/21 Ondansetron [Zofran ODT] 4 mg PO BID PRN 09/20/18 09/21/21 Butalb/APAP/Caff 50-325-40Mg 2 tab PO Q6H PRN MDD 3caps/24hr 10/06/18 09/21/21 [Fioricet 50-325-40] Escitalopram [Lexapro] 10 mg PO HS 10/06/18 09/21/21 Brimonidine Tartrate [Alphagan P 1 drop BOTH EYES BID 12/25/19 09/21/21 0.2% Oph Soln] Cholecalciferol [Vitamin D3 (25 50 mcg PO DAILY 12/25/19 09/21/21 Mcg = 1000 Iu)] Furosemide [Lasix] 20 mg PO DAILY 12/25/19 09/21/21 Potassium Chloride ER [K-Dur 20] 20 meq PO DAILY 12/25/19 09/21/21 Testosterone Cypionate 100 mg IM Q14D 12/25/19 09/21/21 [Depo-Testosterone] diazePAM [Valium] 5 mg PO HS PRN 12/25/19 09/21/21 Acetaminophen Tab [Tylenol] 650 mg PO Q4H PRN 12/28/19 09/21/21 Metoclopramide HCl [Reglan] 10 mg PO TID 05/25/20 09/21/21 Amitriptyline HCl [Elavil] 12.5 mg PO HS 09/21/21 09/21/21 Clobetasol Propionate/Emoll 1 applic TOPICAL DAILY PRN 09/21/21 09/21/21 [Clobetasol Emulsion 0.05% Foam] Diclofenac Sodium Gel [Voltaren 2 - 4 gm TOPICAL QID PRN 09/21/21 09/21/21 Gel] Gabapentin 800 mg PO TID 09/21/21 09/21/21 Ketoconazole 2% Shampoo [Nizoral] 1 applic TOPICAL Q72H PRN 09/21/21 09/21/21 Ondansetron [Zofran] 4 mg PO TID PRN 09/21/21 09/21/21 Sodium Chloride Tab 1 gm PO BID 09/21/21 09/21/21 tadalafiL 10 mg PO DAILY@1300 09/21/21 09/21/21 Allergies Allergy/AdvReac Type Severity Reaction Status Date / Time atorvastatin [From Lipitor] AdvReac MUSCLE Verified 09/21/21 17:57 CRAMPS hydrochlorothiazide AdvReac Patient Verified 09/21/21 21:53 had episode of severe hyponatremia requiring hospita ropinirole [From Requip] AdvReac Hallucinati Verified 09/21/21 21:53 ons Review of Systems ROS Statement: Those systems with pertinent positive or pertinent negative responses have been documented in the HPI. ROS Other: All systems not noted in ROS Statement are negative. Past Medical History Past Medical History: Coronary Artery Disease (CAD), Chest Pain / Angina, Eye Disorder, GERD/Reflux, Hyperlipidemia, Hypertension, Myocardial Infarction ([place]), Osteoarthritis (OA) Additional Past Medical History / Comment(s): recent admission for nausea/vomiting/diarrhea, Neck pain, SVT with ablation, duodenal ulcers, chronic duodenal stricture, bilateral glaucoma, sinusitis, migraines, anemia, esophagitis,hiatal hernia, chronic back pain, past fx ribs/sternum Last Myocardial Infarction Date:: 1999 History of Any Multi-Drug Resistant Organisms: None Reported Past Surgical History: Cardiac Ablation, Cholecystectomy, Heart Catheterization With Stent Additional Past Surgical History / Comment(s): stent right eye 03/2018, PCI with 3 stents, sinus surgery, cataracts bilaterally with lens implants, EGDs/colon oscopies, Past Anesthesia/Blood Transfusion Reactions: No Reported Reaction Additional Past Anesthesia/Blood Transfusion Reaction / Comment(s): Pt has had past multiple transfusions without reaction. Date of Last Stent Placement:: 1999 Past Psychological History: Anxiety Smoking Status: Former smoker Past Alcohol Use History: None Reported Past Drug Use History: None Reported - Past Family History Father Additional Family Medical History / Comment(s): Father at the age of 68yrs from a ruptured aortic aneurysm. Mother Additional Family Medical History / Comment(s): Mother lived into her 80's. Brother(s) Family Medical History: Cancer Additional Family Medical History / Comment(s): The patient had 3 brothers. One from colon cancer with metastatic disease to the brain. One brother at age 79 from a myocardial infarction. He has 1 brother that is alive with history of skin cancer and diabetes. Sister(s) Additional Family Medical History / Comment(s): The patient is a total of 3 sisters. One in her 80s from myocardial infarction. One sister at age 58 from coronary artery disease and also had a valvular disorder. Patient has one sister alive with diabetes and multiple other medical conditions. Patient has 2 sons and 1 daughter with no major medical problems. General Exam Limitations: no limitations General appearance: alert, in no apparent distress, other (This is a well- developed though ill appearing male, who presents to the emergency department in no acute distress. Initial temperature 98.3, pulse 80, respirations 18, blood pressure 123/73, pulse ox 97% on room air.) Head exam: Absent: normal inspection (left sided jaw/neck asymmetry baseline for patient) Eye exam: Present: normal appearance, PERRL, EOMI. Absent: scleral icterus, conjunctival injection, periorbital swelling ENT exam: Present: mucous membranes dry Neck exam: Absent: lymphadenopathy Respiratory exam: Present: normal lung sounds bilaterally. Absent: respiratory distress, wheezes, rales, rhonchi, stridor, chest wall tenderness Cardiovascular Exam: Present: regular rate, normal rhythm, normal heart sounds. Absent: systolic murmur, diastolic murmur, rubs, gallop, clicks GI/Abdominal exam: Present: soft, normal bowel sounds. Absent: distended, tenderness, guarding, rebound, rigid Extremities exam: Present: normal inspection, full ROM, normal capillary refill, other. Absent: tenderness, pedal edema, joint swelling, calf tenderness Neurological exam: Present: alert, oriented X3 Psychiatric exam: Present: flat affect Skin exam: Present: warm, dry, intact, normal color. Absent: rash Course Vital Signs 09/21/21 09/21/21 09/21/21 17:52 21:00 21:50 Temperature 98.3 F 98.1 F Pulse Rate 88 77 78 Respiratory 18 10 L 17 Rate Blood Pressure 123/73 136/85 O2 Sat by Pulse 97 95 98 Oximetry 09/21/21 09/21/21 09/21/21 22:00 22:30 23:00 Temperature Pulse Rate 78 79 78 Respiratory 13 8 L 9 L Rate Blood Pressure 150/93 155/96 O2 Sat by Pulse 98 98 98 Oximetry 09/21/21 09/21/21 09/22/21 23:18 23:30 00:00 Temperature Pulse Rate 80 82 Respiratory 12 27 H 18 Rate Blood Pressure 155/96 130/76 O2 Sat by Pulse 98 96 97 Oximetry - Reevaluation(s) Reevaluation #1: 09/21/21 20:25 This patient's care was discussed with my attending, Dr. Bermeo. Patient will be admitted to the hospital for IV fluids, Magnesium replacement, and ongoing monitoring. 09/21/21 21:30 Patient remains awake, alert, and answering questions appropriately. Reports headache is improved. Neurologically intact. Pending admission placement. 09/21/21 23:[address] Khan who agrees to accept this patient for inpatient hospit alization. Recommends ICU placement as per protocol. I also spoke with Dr. Eckert who is agreeable with this plan of care. Medical Decision Making - Medical Decision Making This is a pleasant 70-year-old male with a history of hyponatremia who presents to the emergency department for evaluation of nausea and vomiting. Upon exam, patient is ill-appearing but in no acute distress. He is awake and alert, answering questions appropriately; he is neurologically intact. Mucous membranes appear dry and patient endorses loss of appetite. Laboratory studies were obtained showing an initial sodium of 114 and chloride 85, potassium 3.6, magnesium 1.4, and serum osmolality 239. Patient was given a gram of magnesium IV piggyback, gentle IV fluid hydration, Zofran for nausea, and morphine for pain. Chest x-ray was negative. Discussed need for ICU placement based on laboratory studies with patient and family and they are agreeable with this plan of care. I spoke with Drs. Khan and Tomeka who agree to accept this admission. Attending: Phi. - Lab Data Result diagrams: 09/22/21 05:41 09/23/21 20:01 Lab Results 09/21/21 09/21/21 09/21/21 Range/Units 17:59 17:59 17:59 WBC 8.2 (3.8-10.6) k/uL RBC 4.32 (4.30-5.90) m/uL Hgb 13.3 (13.0-17.5) gm/dL Hct 37.8 L (39.0-53.0) % MCV 87.5 (80.0-100.0) fL MCH 30.7 (25.0-35.0) pg MCHC 35.1 (31.0-37.0) g/dL RDW 11.5 (11.5-15.5) % Plt Count 297 (150-450) k/uL MPV 6.2 Neutrophils % 66 % Lymphocytes % 19 % Monocytes % 10 % Eosinophils % 2 % Basophils % 1 % Neutrophils # 5.5 (1.3-7.7) k/uL Lymphocytes # 1.5 (1.0-4.8) k/uL Monocytes # 0.8 (0-1.0) k/uL Eosinophils # 0.2 (0-0.7) k/uL Basophils # 0.1 (0-0.2) k/uL PT (9.0-12.0) sec INR (<1.2) Sodium 114 L* (137-145) mmol/L Potassium 3.6 (3.5-5.1) mmol/L Chloride 84 L (98-107) mmol/L Carbon Dioxide 20 L (22-30) mmol/L Anion Gap 10 mmol/L BUN 4 L (9-20) mg/dL Creatinine 0.61 L (0.66-1.25) mg/dL Est GFR (CKD-EPI)AfAm >90 (>60 ml/min/1.73 sqM) Est GFR (CKD-EPI)NonAf >90 (>60 ml/min/1.73 sqM) Glucose 139 H (74-99) mg/dL Osmolality (280-301) mosm/kg Calcium 8.8 (8.4-10.2) mg/dL Phosphorus (2.5-4.5) mg/dL Magnesium (1.6-2.3) mg/dL Total Bilirubin 0.6 (0.2-1.3) mg/dL AST 17 (17-59) U/L ALT 10 (4-49) U/L Alkaline Phosphatase 72 (38-126) U/L Troponin I (0.000-0.034) ng/mL Total Protein 6.7 (6.3-8.2) g/dL Albumin 4.3 (3.5-5.0) g/dL Urine Color Urine Appearance (Clear) Urine pH (5.0-8.0) Ur Specific [place] (1.001-1.035) Urine Protein (Negative) Urine Glucose (UA) (Negative) Urine Ketones (Negative) Urine Blood (Negative) Urine Nitrite (Negative) Urine Bilirubin (Negative) Urine Urobilinogen (<2.0) mg/dL Ur Leukocyte Esterase (Negative) Urine Osmolality (50-1400) mosm/kg Coronavirus (PCR) Not Detected (Not Detectd) 09/21/21 09/21/21 09/21/21 Range/Units 17:59 18:35 18:35 WBC (3.8-10.6) k/uL RBC (4.30-5.90) m/uL Hgb (13.0-17.5) gm/dL Hct (39.0-53.0) % MCV (80.0-100.0) fL MCH (25.0-35.0) pg MCHC (31.0-37.0) g/dL RDW (11.5-15.5) % Plt Count (150-450) k/uL MPV Neutrophils % % Lymphocytes % % Monocytes % % Eosinophils % % Basophils % % Neutrophils # (1.3-7.7) k/uL Lymphocytes # (1.0-4.8) k/uL Monocytes # (0-1.0) k/uL Eosinophils # (0-0.7) k/uL Basophils # (0-0.2) k/uL PT (9.0-12.0) sec INR (<1.2) Sodium (137-145) mmol/L Potassium (3.5-5.1) mmol/L Chloride (98-107) mmol/L Carbon Dioxide (22-30) mmol/L Anion Gap mmol/L BUN (9-20) mg/dL Creatinine (0.66-1.25) mg/dL Est GFR (CKD-EPI)AfAm (>60 ml/min/1.73 sqM) Est GFR (CKD-EPI)NonAf (>60 ml/min/1.73 sqM) Glucose (74-99) mg/dL Osmolality (280-301) mosm/kg Calcium (8.4-10.2) mg/dL Phosphorus (2.5-4.5) mg/dL Magnesium (1.6-2.3) mg/dL Total Bilirubin (0.2-1.3) mg/dL AST (17-59) U/L ALT (4-49) U/L Alkaline Phosphatase (38-126) U/L Troponin I <0.012 (0.000-0.034) ng/mL Total Protein (6.3-8.2) g/dL Albumin (3.5-5.0) g/dL Urine Color Yellow Urine Appearance Clear (Clear) Urine pH 6.0 (5.0-8.0) Ur Specific [place] 1.013 (1.001-1.035) Urine Protein Negative (Negative) Urine Glucose (UA) Negative (Negative) Urine Ketones Negative (Negative) Urine Blood Negative (Negative) Urine Nitrite Negative (Negative) Urine Bilirubin Negative (Negative) Urine Urobilinogen <2.0 (<2.0) mg/dL Ur Leukocyte Esterase Negative (Negative) Urine Osmolality 408 (50-1400) mosm/kg Coronavirus (PCR) (Not Detectd) 09/21/21 09/21/21 Range/Units 19:28 20:12 WBC (3.8-10.6) k/uL RBC (4.30-5.90) m/uL Hgb (13.0-17.5) gm/dL Hct (39.0-53.0) % MCV (80.0-100.0) fL MCH (25.0-35.0) pg MCHC (31.0-37.0) g/dL RDW (11.5-15.5) % Plt Count (150-450) k/uL MPV Neutrophils % % Lymphocytes % % Monocytes % % Eosinophils % % Basophils % % Neutrophils # (1.3-7.7) k/uL Lymphocytes # (1.0-4.8) k/uL Monocytes # (0-1.0) k/uL Eosinophils # (0-0.7) k/uL Basophils # (0-0.2) k/uL PT 10.5 (9.0-12.0) sec INR 1.0 (<1.2) Sodium (137-145) mmol/L Potassium (3.5-5.1) mmol/L Chloride (98-107) mmol/L Carbon Dioxide (22-30) mmol/L Anion Gap mmol/L BUN (9-20) mg/dL Creatinine (0.66-1.25) mg/dL Est GFR (CKD-EPI)AfAm (>60 ml/min/1.73 sqM) Est GFR (CKD-EPI)NonAf (>60 ml/min/1.73 sqM) Glucose (74-99) mg/dL Osmolality 239 L* (280-301) mosm/kg Calcium (8.4-10.2) mg/dL Phosphorus 3.2 (2.5-4.5) mg/dL Magnesium 1.4 L (1.6-2.3) mg/dL Total Bilirubin (0.2-1.3) mg/dL AST (17-59) U/L ALT (4-49) U/L Alkaline Phosphatase (38-126) U/L Troponin I (0.000-0.034) ng/mL Total Protein (6.3-8.2) g/dL Albumin (3.5-5.0) g/dL Urine Color Urine Appearance (Clear) Urine pH (5.0-8.0) Ur Specific [place] (1.001-1.035) Urine Protein (Negative) Urine Glucose (UA) (Negative) Urine Ketones (Negative) Urine Blood (Negative) Urine Nitrite (Negative) Urine Bilirubin (Negative) Urine Urobilinogen (<2.0) mg/dL Ur Leukocyte Esterase (Negative) Urine Osmolality (50-1400) mosm/kg Coronavirus (PCR) (Not Detectd) - Radiology Data Radiology results: report reviewed, image reviewed Two-view chest x-ray was obtained. Report was reviewed in its entirety. Impression per Dr. Manzano is no acute cardiopulmonary disease/process. Disposition Clinical Impression: Hyponatremia, Nausea & vomiting, Diarrhea Disposition: ADMITTED IP TO THIS HOSP Condition: Serious Decision Date: 09/21/21 Decision Time: 20:27
[2021-09-21 20:20] LABS: Magnesium 1.4 mg/dL (1.6-2.3); Phosphorus 3.2 mg/dL (2.5-4.5)
[2021-09-21] MEDS ORDERED: MAGNESIUM SULFATE-D5W PMX 1 GM in DEXTROSE/WATER 1 100ML.BAG IVPB ONE (20:24)
[2021-09-21 22:01] LABS: Appearance,Urine Clear (Clear); Bilirubin,Urine Negative (Negative); Blood,Urine Negative (Negative); Color,Urine Yellow; Glucose,Urine (UA) Negative (Negative); Ketones,Urine Negative (Negative); Leukocyte Esterase,Urine Negative (Negative); Nitrite,Urine Negative (Negative); Protein,Urine Negative (Negative); Specific Gravity,Urine 1.013 (1.001-1.035); Urobilinogen,Urine <2.0 mg/dL (<2.0)
[2021-09-21] MEDS ORDERED: NALOXONE 0.4 MG/ML 1 ML VIAL IV PRN (23:15)
[2021-09-21] MEDS: HYDROmorphone 0.5 MG/0.5 ML SYRINGE IVP PRN (23:57)
[2021-09-21] MEDS: PANTOPRAZOLE 40 MG/10 ML VIAL IV SCH (23:58)
[2021-09-21] MEDS: ACETAMINOPHEN TAB 325 MG TAB PO PRN (23:58)
[2021-09-22 00:50] LABS: Glucose,Whole Blood 120 mg/dL (70-110)
[2021-09-22 00:57] LABS: African American GFR (CKD) >90 (>60 ml/min/1.73 sqM); Anion Gap 8 mmol/L; Blood Urea Nitrogen 3 mg/dL (9-20); Calcium 8.4 mg/dL (8.4-10.2); Carbon Dioxide 21 mmol/L (22-30); Chloride 85 mmol/L (98-107); Glucose 107 mg/dL (74-99); Non-African American GFR(CKD) >90 (>60 ml/min/1.73 sqM); Potassium 3.6 mmol/L (3.5-5.1)
[2021-09-22] MEDS ORDERED: AMITRIPTYLINE HCL 25 MG TAB PO ONE (01:00)
[2021-09-22] MEDS: METOCLOPRAMIDE 5 MG/ML 2 ML VIAL IVP PRN ×2 (01:32→20:39)
[2021-09-22] MEDS: GABAPENTIN 400 MG CAP PO SCH ×4 (01:33→21:19)
[2021-09-22] MEDS: diazePAM 5 MG TAB PO PRN ×2 (01:33→21:19)
[2021-09-22 01:42] LABS: Sodium 114 mmol/L (137-145)
[2021-09-22] MEDS: SODIUM CHLORIDE 0.9% 1,000 ML IV SCH ×2 (01:45→13:00)
[2021-09-22] MEDS: BUTALB/APAP/CAFF 50-325-40MG TAB PO PRN ×3 (01:47→14:09)
[2021-09-22] MEDS: HYDROmorphone 0.5 MG/0.5 ML SYRINGE IVP PRN ×7 (04:03→18:00)
[2021-09-22 06:19] LABS: Basophils # (A) 0.1 k/uL (0-0.2); Basophils % (A) 1 %; Eosinophils # (A) 0.2 k/uL (0-0.7); Eosinophils % (A) 2 %; HCT 40.2 % (39.0-53.0); HGB 13.8 gm/dL (13.0-17.5); Lymphocytes # (A) 1.8 k/uL (1.0-4.8); Lymphocytes % (A) 18 %; MCHC 34.4 g/dL (31.0-37.0); Mean Platelet Volume 6.4; Monocytes % (A) 9 %; Neutrophils # (A) 6.9 k/uL (1.3-7.7); Neutrophils % (A) 69 %; Platelet Count 312 k/uL (150-450); RBC 4.47 m/uL (4.30-5.90); RDW 11.8 % (11.5-15.5); WBC 10.1 k/uL (3.8-10.6)
[2021-09-22 06:28] LABS: African American GFR (CKD) >90 (>60 ml/min/1.73 sqM); Anion Gap 9 mmol/L; Blood Urea Nitrogen 3 mg/dL (9-20); Calcium 8.8 mg/dL (8.4-10.2); Carbon Dioxide 22 mmol/L (22-30); Chloride 87 mmol/L (98-107); Glucose 102 mg/dL (74-99); Non-African American GFR(CKD) >90 (>60 ml/min/1.73 sqM); Potassium 4.1 mmol/L (3.5-5.1)
[2021-09-22 06:29] LABS: Sodium 118 mmol/L (137-145)
[2021-09-22] MEDS ORDERED: Magnesium Replacement Protocol 1 EACH MISC MISCELLANE PRN (08:25)
[2021-09-22] MEDS ORDERED: ONDANSETRON 4 MG TAB PO PRN (08:51)
[2021-09-22] MEDS ORDERED: GABAPENTIN 400 MG CAP PO SCH (09:00)
[2021-09-22] MEDS ORDERED: FUROSEMIDE 20 MG TAB PO SCH (09:00)
[2021-09-22] MEDS ORDERED: DICLOFENAC SODIUM GEL 100 GM TUBE TOPICAL PRN (09:00)
[2021-09-22] MEDS ORDERED: SODIUM CHLORIDE TAB 1 GM TAB PO SCH (09:00)
[2021-09-22] MEDS: POTASSIUM CHLORIDE ER 20 MEQ TAB.ER PO SCH (09:21)
[2021-09-22] MEDS: METOPROLOL TARTRATE 25 MG TAB PO SCH ×2 (09:21→21:19)
[2021-09-22] MEDS: CHOLECALCIFEROL 25 MCG (1000 IU) TABLET PO SCH (09:21)
[2021-09-22] MEDS: DICYCLOMINE 10 MG CAP PO SCH ×3 (09:21→22:09)
[2021-09-22] MEDS: ONDANSETRON 4 MG/2 ML VIAL IVP PRN ×2 (09:21→17:13)
[2021-09-22] MEDS: LOSARTAN 50 MG TAB PO SCH (09:21)
[2021-09-22] MEDS: PANTOPRAZOLE 40 MG/10 ML VIAL IV SCH (09:21)
--- NOTE | 2021-09-22 09:23 | P.NPCON ---
History of Present Illness - Reason for Consult hyponatremia - History of Present Illness Patient is a 70-year-old male who was admitted to the hospital with complaints of increased weakness nausea vomiting and diarrhea for about 2-3 days prior to admission. Patient has underlying history of hyponatremia and takes sodium chloride tab twice a day. Patient states that he had not been eating much for the last few days. Patient takes Lasix at home as well Blood pressure was not significantly low. Patient is started on saline. His serum sodium level was 114 on admission and it has increased to 118 in about 5 hours. Overall patient states he is feeling better. He has not had any further diarrhea. Review of Systems As per HPI Past Medical History Past Medical History: Coronary Artery Disease (CAD), Chest Pain / Angina, Eye Disorder, GERD/Reflux, Hyperlipidemia, Hypertension, Myocardial Infarction ([place]), Osteoarthritis (OA) Additional Past Medical History / Comment(s): nausea/vomiting/diarrhea, Neck pain, SVT with ablation, duodenal ulcers, chronic duodenal stricture, bilateral glaucoma, sinusitis, migraines, anemia, esophagitis,hiatal hernia, chronic back pain, past fx ribs/sternum; Agent orange exposure Last Myocardial Infarction Date:: 1999 History of Any Multi-Drug Resistant Organisms: None Reported Past Surgical History: Cardiac Ablation, Cholecystectomy, Heart Catheterization With Stent Additional Past Surgical History / Comment(s): stent right eye 03/2018, Left eye stent 2020, PCI with 3 stents, sinus surgery, cataracts bilaterally with lens implants, EGDs/colonoscopies,[place] with Dr. Marcus 2019 Past Anesthesia/Blood Transfusion Reactions: No Reported Reaction Additional Past Anesthesia/Blood Transfusion Reaction / Comment(s): Pt has had past multiple transfusions without reaction. Date of Last Stent Placement:: 1999 Past Psychological History: Anxiety Additional Psychological History / Comment(s): Pt resides with his spouse. He served in the [employer]. He is independent. Smoking Status: Former smoker Past Alcohol Use History: None Reported Additional Past Alcohol Use History / Comment(s): Patient was a smoker for only a few years in his 40s. Past Drug Use History: None Reported - Past Family History Father Additional Family Medical History / Comment(s): Father at the age of 68yrs from a ruptured aortic aneurysm. Mother Additional Family Medical History / Comment(s): Mother lived into her 80's. Brother(s) Family Medical History: Cancer Additional Family Medical History / Comment(s): The patient had 3 brothers. One from colon cancer with metastatic disease to the brain. One brother at age 79 from a myocardial infarction. He has 1 brother that is alive with history of skin cancer and diabetes. Sister(s) Additional Family Medical History / Comment(s): The patient is a total of 3 sisters. One in her 80s from myocardial infarction. One sister at age 58 from coronary artery disease and also had a valvular disorder. Patient has one sister alive with diabetes and multiple other medical conditions. Patient has 2 sons and 1 daughter with no major medical problems. Medications and Allergies Home Medications Medication Instructions Recorded Confirmed Type Simvastatin [Zocor] 40 mg PO HS 07/12/13 09/21/21 History Dicyclomine [Bentyl] 10 mg PO TID 06/04/17 09/21/21 History Latanoprost [Xalatan 0.005%] 1 drop BOTH EYES HS 09/20/18 09/21/21 History Losartan Potassium 100 mg PO DAILY 09/20/18 09/21/21 History Metoprolol Tartrate [Lopressor] 25 mg PO BID 09/20/18 09/21/21 History Ondansetron [Zofran ODT] 4 mg PO BID PRN 09/20/18 09/21/21 History Butalb/APAP/Caff 50-325-40Mg 2 tab PO Q6H PRN MDD 3caps/24hr 10/06/18 09/21/21 History [Fioricet 50-325-40] Escitalopram [Lexapro] 10 mg PO HS 10/06/18 09/21/21 History Brimonidine Tartrate [Alphagan P 1 drop BOTH EYES BID 12/25/19 09/21/21 History 0.2% Ophth Soln] Cholecalciferol [Vitamin D3 (25 50 mcg PO DAILY 12/25/19 09/21/21 History Mcg = 1000 Iu)] Furosemide [Lasix] 20 mg PO DAILY 12/25/19 09/21/21 History Potassium Chloride ER [K-Dur 20] 20 meq PO DAILY 12/25/19 09/21/21 History Testosterone Cypionate 100 mg IM Q14D 12/25/19 09/21/21 History [Depo-Testosterone] diazePAM [Valium] 5 mg PO HS PRN 12/25/19 09/21/21 History Acetaminophen Tab [Tylenol] 650 mg PO Q4H PRN 12/28/19 09/21/21 History Metoclopramide HCl [Reglan] 10 mg PO TID 05/25/20 09/21/21 History Amitriptyline HCl [Elavil] 12.5 mg PO HS 09/21/21 09/21/21 History Clobetasol Propionate/Emoll 1 applic TOPICAL DAILY PRN 09/21/21 09/21/21 History [Clobetasol Emulsion 0.05% Foam] Diclofenac Sodium Gel [Voltaren 2 - 4 gm TOPICAL QID PRN 09/21/21 09/21/21 History Gel] Gabapentin 800 mg PO TID 09/21/21 09/21/21 History Ketoconazole 2% Shampoo [Nizoral] 1 applic TOPICAL Q72H PRN 09/21/21 09/21/21 History Ondansetron [Zofran] 4 mg PO TID PRN 09/21/21 09/21/21 History Sodium Chloride Tab 1 gm PO BID 09/21/21 09/21/21 History tadalafiL 10 mg PO DAILY@1300 09/21/21 09/21/21 History Allergies Allergy/AdvReac Type Severity Reaction Status Date / Time atorvastatin [From Lipitor] AdvReac MUSCLE Verified 09/21/21 17:57 CRAMPS hydrochlorothiazide AdvReac Patient Verified 09/21/21 21:53 had episode of severe hyponatremia requiring hospita ropinirole [From Requip] AdvReac Hallucinati Verified 09/21/21 21:53 ons Physical Exam Vitals: Vital Signs Temp Pulse Resp BP Pulse Ox 09/22/21 07:00 103 H 27 H 129/74 95 09/22/21 06:00 69 16 135/77 95 09/22/21 05:00 68 14 127/73 93 L 09/22/21 04:00 98 F 68 10 L 118/66 97 09/22/21 03:00 70 12 118/69 93 L 09/22/21 02:00 69 15 127/72 94 L 09/22/21 01:00 98.1 F 71 14 127/80 96 09/22/21 00:00 82 18 130/76 97 09/21/21 23:30 27 H 96 09/21/21 23:18 80 12 155/96 98 09/21/21 23:00 78 9 L 98 09/21/21 22:30 79 8 L 155/96 98 09/21/21 22:00 78 13 150/93 98 09/21/21 21:50 78 17 98 09/21/21 21:00 98.1 F 77 10 L 136/85 95 09/21/21 17:52 98.3 F 88 18 123/73 97 Intake and Output 09/21/21 09/22/21 09/22/21 22:59 06:59 14:59 Intake Total 1290 Output Total 1500 Balance -210 Intake: IV 1040 Sodium Chloride 0.9% 1, 390 000 ml @ 130 mls/hr IV . Q7H42M STA Rx#:[id number] Sodium Chloride 0.9% 1, 650 000 ml @ 50 mls/hr IV . Q20H DANIEL Rx#:[id number] Oral 250 Output: Urine 1500 Other: Voiding Method Urinal # Voids 2 Weight 87.09 kg 89.1 kg Patient is awake, comfortable, not in any acute distress. Examination of the heart S1 and S2 Examination of the lungs bilateral breath sounds are heard Abdomen is soft nontender Examination of the lower extremities shows no evidence of edema [employer] exam is grossly intact Results - Lab Results Most recent lab results Calcium 8.8 mg/dL (8.4-10.2) 09/22/21 05:41 Phosphorus 3.2 mg/dL (2.5-4.5) 09/21/21 20:12 Magnesium 1.8 mg/dL (1.6-2.3) 09/22/21 05:41 09/22/21 05:41 09/22/21 05:41 Assessment and Plan Assessment: 1. Hypovolemic hyponatremia with underlying history of chronic hyponatremia. Currently improving with normal saline. Patient is also maintained on sodium chloride 1 g twice a day which I will continue for now. Saline is been decreased to 50 mL an hour. So far serum sodium has increased by about 4 in 5 hours time. We will continue to monitor the serum sodium closely and try to avoid rapid increase. 2. Hypovolemia 3. Nausea, vomiting and diarrhea, currently improved. No fever noted. 4. Coronary artery disease with history of coronary stents Plan: Continue with saline. Rate decreased to 50 mL an hour Continue with sodium chloride Repeat sodium at noon Continue to hold Lasix May continue with Cozaar. Thank you for the consultation. We'll continue to follow the patient with you during his hospitalization
[2021-09-22] MEDS: MAGNESIUM SULFATE-D5W PMX 1 GM in DEXTROSE/WATER 1 100ML.BAG IVPB SCH ×2 (09:31→11:17)
[2021-09-22] MEDS: BRIMONIDINE TARTRATE 0.2% DROPS 5 ML BTL BOTH EYES SCH ×2 (10:02→22:09)
[2021-09-22 10:32] LABS: African American GFR (CKD) >90 (>60 ml/min/1.73 sqM); Anion Gap 7 mmol/L; Blood Urea Nitrogen 3 mg/dL (9-20); Calcium 8.8 mg/dL (8.4-10.2); Carbon Dioxide 23 mmol/L (22-30); Chloride 92 mmol/L (98-107); Glucose 118 mg/dL (74-99); Non-African American GFR(CKD) >90 (>60 ml/min/1.73 sqM); Potassium 3.8 mmol/L (3.5-5.1); Sodium 122 mmol/L (137-145)
--- NOTE | 2021-09-22 11:04 | P.CNPUL ---
History of Present Illness Consult date: 09/22/21 Chief complaint: Generalized weakness and hyponatremia History of present illness: 68-year-old male patient is coming in with generalized weakness and the patient is known to have intractable nausea and emesis and diarrhea that has been worked up extensively in the past without any clear diagnosis. The patient came into the hospital because of generalized weakness and dizziness and the patient was found to be hyponatremic and this was a hypochloremic hyponatremia with a sodium level of 114. This has occurred to the patient the past and this is mainly due to intravascular volume depletion and dietary diminished intake and volume loss. The patient has not been eating much over the past several days. His been taken Lasix. No hypotension. No seizure activity. No altered mentation. He was given normal saline at the rate of 100 an hour and a sodium level is up to 118. No other complaints otherwise for now. Review of Systems Constitutional: No fever, no chills, no night sweats. No weight change. No weakness, fatigue or lethargy. No daytime sleepiness. EENT: No headache. No blurred vision or double vision, no loss of vision. No loss of Hearing, no ringing in the ears, no dizziness. No nasal drainage or congestion. No epistaxis. No sore throat. Lungs: No shortness of breath, cough, no sputum production. No wheezing. Cardiovascular: Denies chest pain, no lower extremity edema. No palpitations. No paroxysmal nocturnal dyspnea. No orthopnea. No lightheadedness or dizziness. No syncopal episodes. Abdominal Reports abdominal pain. Reports nausea, reports vomiting. No diarrhea. No constipation. No bloody or tarry stools. Reports loss of appetite. Genitourinary: No dysuria, increased frequency, urgency. No urinary retention. Musculoskeletal: No myalgias. No muscle weakness, no gait dysfunction, no frequent falls. No back pain. No neck pain. Integumentary: No wounds, no lesions. No rash or pruritus. No unusual bruising. Neurologic: No aphasia. No facial droop. No change in mentation. No head injury. No headache. No paralysis. No paresthesia. Psychiatric: No depression. No anxiety. Endocrine: No abnormal blood sugars. No weight change. Constitutional: Reports fatigue, Reports weakness Eyes: denies as per HPI, denies blurred vision, denies bulging eye, denies decreased vision, denies diplopia, denies discharge, denies dry eye, denies irritation, denies itching, denies pain, denies photophobia, denies loss of peripheral vision, denies loss of vision, denies tunnel vision/blind spots Ears: deny: decreased hearing, ear discharge, earache, tinnitus Ears, nose, mouth and throat: Reports as per HPI Breasts: absent: as per HPI, gynecomastia Cardiovascular: Reports as per HPI Respiratory: Reports as per HPI Gastrointestinal: Reports as per HPI, Reports diarrhea, Reports loss of appetite, Reports nausea, Reports vomiting Genitourinary: Reports as per HPI Musculoskeletal: Reports as per HPI Musculoskeletal: absent: ankle pain, ankle stiffness, ankle swelling Integumentary: Reports as per HPI Neurological: Reports as per HPI Psychiatric: Reports as per HPI Hematologic/Lymphatic: Reports as per HPI Allergic/Immunologic: Reports as per HPI Past Medical History Past Medical History: Coronary Artery Disease (CAD), Chest Pain / Angina, Eye Disorder, GERD/Reflux, Hyperlipidemia, Hypertension, Myocardial Infarction (DC), Osteoarthritis (OA) Additional Past Medical History / Comment(s): nausea/vomiting/diarrhea, Neck pain, SVT with ablation, duodenal ulcers, chronic duodenal stricture, bilateral glaucoma, sinusitis, migraines, anemia, esophagitis,hiatal hernia, chronic back pain, past fx ribs/sternum; Agent orange exposure Last Myocardial Infarction Date:: 1999 History of Any Multi-Drug Resistant Organisms: None Reported Past Surgical History: Cardiac Ablation, Cholecystectomy, Heart Catheterization With Stent Additional Past Surgical History / Comment(s): stent right eye 03/2018, Left eye stent 2020, PCI with 3 stents, sinus surgery, cataracts bilaterally with lens implants, EGDs/colonoscopies,[place] with Dr. Marcus 2019 Past Anesthesia/Blood Transfusion Reactions: No Reported Reaction Additional Past Anesthesia/Blood Transfusion Reaction / Comment(s): Pt has had past multiple transfusions without reaction. Date of Last Stent Placement:: 1999 Past Psychological History: Anxiety Additional Psychological History / Comment(s): Pt resides with his spouse. He served in the [employer]. He is independent. Smoking Status: Former smoker Past Alcohol Use History: None Reported Additional Past Alcohol Use History / Comment(s): Patient was a smoker for only a few years in his 40s. Past Drug Use History: None Reported - Past Family History Father Additional Family Medical History / Comment(s): Father at the age of 68yrs from a ruptured aortic aneurysm. Mother Additional Family Medical History / Comment(s): Mother lived into her 80's. Brother(s) Family Medical History: Cancer Additional Family Medical History / Comment(s): The patient had 3 brothers. One from colon cancer with metastatic disease to the brain. One brother at age 79 from a myocardial infarction. He has 1 brother that is alive with history of skin cancer and diabetes. Sister(s) Additional Family Medical History / Comment(s): The patient is a total of 3 sist ers. One in her 80s from myocardial infarction. One sister at age 58 from coronary artery disease and also had a valvular disorder. Patient has one sister alive with diabetes and multiple other medical conditions. Patient has 2 sons and 1 daughter with no major medical problems. Medications and Allergies Home Medications Medication Instructions Recorded Confirmed Type Simvastatin [Zocor] 40 mg PO HS 07/12/13 09/21/21 History Dicyclomine [Bentyl] 10 mg PO TID 06/04/17 09/21/21 History Latanoprost [Xalatan 0.005%] 1 drop BOTH EYES HS 09/20/18 09/21/21 History Losartan Potassium 100 mg PO DAILY 09/20/18 09/21/21 History Metoprolol Tartrate [Lopressor] 25 mg PO BID 09/20/18 09/21/21 History Ondansetron [Zofran ODT] 4 mg PO BID PRN 09/20/18 09/21/21 History Butalb/APAP/Caff 50-325-40Mg 2 tab PO Q6H PRN MDD 3caps/24hr 10/06/18 09/21/21 History [Fioricet 50-325-40] Escitalopram [Lexapro] 10 mg PO HS 10/06/18 09/21/21 History Brimonidine Tartrate [Alphagan P 1 drop BOTH EYES BID 12/25/19 09/21/21 History 0.2% Ophth Soln] Cholecalciferol [Vitamin D3 (25 50 mcg PO DAILY 12/25/19 09/21/21 History Mcg = 1000 Iu)] Furosemide [Lasix] 20 mg PO DAILY 12/25/19 09/21/21 History Potassium Chloride ER [K-Dur 20] 20 meq PO DAILY 12/25/19 09/21/21 History Testosterone Cypionate 100 mg IM Q14D 12/25/19 09/21/21 History [Depo-Testosterone] diazePAM [Valium] 5 mg PO HS PRN 12/25/19 09/21/21 History Acetaminophen Tab [Tylenol] 650 mg PO Q4H PRN 12/28/19 09/21/21 History Metoclopramide HCl [Reglan] 10 mg PO TID 05/25/20 09/21/21 History Amitriptyline HCl [Elavil] 12.5 mg PO HS 09/21/21 09/21/21 History Clobetasol Propionate/Emoll 1 applic TOPICAL DAILY PRN 09/21/21 09/21/21 History [Clobetasol Emulsion 0.05% Foam] Diclofenac Sodium Gel [Voltaren 2 - 4 gm TOPICAL QID PRN 09/21/21 09/21/21 History Gel] Gabapentin 800 mg PO TID 09/21/21 09/21/21 History Ketoconazole 2% Shampoo [Nizoral] 1 applic TOPICAL Q72H PRN 09/21/21 09/21/21 History Ondansetron [Zofran] 4 mg PO TID PRN 09/21/21 09/21/21 History Sodium Chloride Tab 1 gm PO BID 09/21/21 09/21/21 History tadalafiL 10 mg PO DAILY@1300 09/21/21 09/21/21 History Allergies Allergy/AdvReac Type Severity Reaction Status Date / Time atorvastatin [From Lipitor] AdvReac MUSCLE Verified 09/21/21 17:57 CRAMPS hydrochlorothiazide AdvReac Patient Verified 09/21/21 21:53 had episode of severe hyponatremia requiring hospita ropinirole [From Requip] AdvReac Hallucinati Verified 09/21/21 21:53 ons Physical Exam Vitals: Vital Signs Temp Pulse Resp BP Pulse Ox 09/22/21 07:00 103 H 27 H 129/74 95 09/22/21 06:00 69 16 135/77 95 09/22/21 05:00 68 14 127/73 93 L 09/22/21 04:00 98 F 68 10 L 118/66 97 09/22/21 03:00 70 12 118/69 93 L 09/22/21 02:00 69 15 127/72 94 L 09/22/21 01:00 98.1 F 71 14 127/80 96 09/22/21 00:00 82 18 130/76 97 09/21/21 23:30 27 H 96 09/21/21 23:18 80 12 155/96 98 09/21/21 23:00 78 9 L 98 09/21/21 22:30 79 8 L 155/96 98 09/21/21 22:00 78 13 150/93 98 09/21/21 21:50 78 17 98 09/21/21 21:00 98.1 F 77 10 L 136/85 95 09/21/21 17:52 98.3 F 88 18 123/73 97 Intake and Output 09/21/21 09/22/21 09/22/21 22:59 06:59 14:59 Intake Total 1290 Output Total 1500 Balance -210 Intake: IV 1040 Sodium Chloride 0.9% 1, 390 000 ml @ 130 mls/hr IV . Q7H42M STA Rx#:[id number] Sodium Chloride 0.9% 1, 650 000 ml @ 50 mls/hr IV . Q20H DANIEL Rx#:[id number] Oral 250 Output: Urine 1500 Other: Voiding Method Urinal # Voids 2 Weight 87.09 kg 89.1 kg Gen. appearance the patient is currently on room air oxygen, calm and comfortable no acute distress Head exam was generally normal. There was no scleral icterus or corneal arcus. Mucous membranes were moist. HEENT: Head is atraumatic, normocephalic. Pupils equal, round. Sclerae is anicteric. Patchy redness in the face. NECK: Supple. No JVD. No lymphadenopathy. No thyromegaly. LUNGS: Clear to auscultation. No wheezes or rhonchi. No intercostal retractions. HEART: Regular rate and rhythm. No murmur. No tenderness ABDOMEN: Soft. Bowel sounds are present. No masses Lower abd tenderness. EXTREMITIES: No pedal edema. No calf tenderness.Dorsalis pedis +2 bilaterally. NEUROLOGICAL: Patient is awake, alert and oriented x3. Cranial nerves 2 through 12 are grossly intact. Examination of the skin revealed no evidence of significant rashes, suspicious appearing nevi or other concerning lesions. Results - Laboratory Findings CBC and BMP: 09/22/21 05:41 09/22/21 10:03 PT/INR, D-dimer PT 10.5 sec (9.0-12.0) 09/21/21 19:28 INR 1.0 (<1.2) 09/21/21 19:28 Abnormal lab findings: Abnormal Labs 09/21/21 09/21/21 09/21/21 17:59 17:59 20:12 Hct 37.8 L Sodium 114 L* Chloride 84 L Carbon Dioxide 20 L BUN 4 L Creatinine 0.61 L Glucose 139 H POC Glucose (mg/dL) Osmolality 239 L* Magnesium 1.4 L 09/22/21 09/22/21 09/22/21 00:26 00:46 05:41 Hct Sodium 114 L* 118 L* Chloride 85 L 87 L Carbon Dioxide 21 L BUN 3 L 3 L Creatinine 0.51 L 0.59 L Glucose 107 H 102 H POC Glucose (mg/dL) 120 H Osmolality Magnesium - Diagnostic Findings Chest x-ray: image reviewed Assessment and Plan Plan: Acute hyponatremia , recurrent, symptomatic with generalized weakness. No altered mentation. Sodium level was under and 114 at time of admission, currently at 118 hypomagnesemia Intractable nausea and vomiting. The patient has been taking Reglan and Zofran and Bentyl History of coronary artery disease status post stenting. Hypertension Gastroesophageal reflux disease Recurrent depression. Continue Lexapro 10 mg daily, Valium 5 mg at bedtime as needed. Hyperlipidemia. Degenerative disc disease of the cervical spine. Continue gabapentin 600 mg 3 times daily. history of electrolyte abnormalities with hyponatremia, hypokalemia, hypophosphatemia, hypomagnesemia history of SVT migraines anemia esophagitis/ hiatal hernia chronic back pain, history fx ribs/sternum; Agent orange exposure Plan Continue normal saline infusion at the rate of 50 mL an hour, will proceed with slow correction of the sodium level Outpatient medication will be resumed including the Reglan and the Zofran for nausea Monitor electrolytes Replace magnesium Keep in the ICU as the patient is undergoing correction of the sodium level
[2021-09-22] MEDS: NON FORMULARY DRUG (Tadalafil [Tadalafil] 10 MG Tablet) PO SCH (14:24)
--- NOTE | 2021-09-22 14:31 | P.HPIM ---
History of Present Illness H&P Date: 09/22/21 Chief Complaint: Weakness dizziness, found to have severely low sodium This 70-year-old gentleman, new to my practice, underlying history of CAD, SVT, chronic left jaw mass, benign, being followed by an ENT, since he was young. History of GERD, follows with Dr. Rico,, he has been on sodium tablets 1 g twice a day for several months, and was admitted, secondary to weakness and dizziness lightheadedness, and was found to have severe hyponatremia, with a sodium level of 114. Patient has four-day diarrhea, nausea vomiting, diarrhea is watery, without any blood, at least 4 or more per day. Patient has been taking Lasix, there is no hypotension, no seizures, no chest pain, no palpitations, Emergency room he was bolused 1 L of 0.9, for the sodium of 114, creatinine 0.5, glucose 107, serum osmolality 239 chest x-ray, shows no acute pulmonary processes, patient's admitted to ICU, with IV fluids running at 100 mL an hour 0.9, with consult to nephrology and ICU, for critical hyponatria Assessment and plan 1., Severe critical hyponatremia with hypovolemia, underlying history of chronic hypo natremia, related to decreased oral intake, as well as GI losses currently receiving IV normal saline, 100 mL an hour, decreased her current treatment 50 mL an hour, serial sodium monitoring along with maintenance of sodium chloride 1 g twice a day, scheduled has increased to 118 from an entry sodium of 114, patient is in ICU. Also followed by order editor 2. Hypertension 3. Intractable nausea and vomiting, on maintenance Reglan, 10 mg 3 times a day, followed by Dr. Hickman 4 Diarrhea, for 4 days, this has improved however, we will try to obtain, for C. diff, if the recurrent diarrhea comes back, on bed until 10 mg 3 times a day scheduled 5 Dysthymia, Lexapro 10 mg 6 CAD asymptomatic 7 left parotid mass chronic, patient has trauma on the parotid ducts in the past, per ENT benign 8 Testicular deficiency, on testosterone replacement, 100 mg, every 14 days 9 Hyperlipidemia, on Zocor 40 10 Chronic pain neuralgia, on gabapentin 800 3 times a day Elavil 12.5 at bedtime Valium 5 mg at bedtime when necessary Voltaren gel DVT prophylaxis early ambulation GI prophylaxis on maintenance Protonix for GERD Discharge planning, expected home discharge Review of Systems Constitutional: Reports anorexia, Reports chronic pain, Reports poor appetite, Reports weakness Ears, nose, mouth and throat: Reports as per HPI, Denies ant. neck pain, Denies bleeding gums, Denies dental pain, Denies dysphagia, Denies epistaxis, Denies headache, Denies hoarseness, Denies mouth pain, Denies nasal congestion, Denies nasal discharge, Denies neck fullness/pressure, Denies neck lump, Denies nose pain, Denies odynophagia, Denies post-nasal drip, Denies sinus pain, Denies sinus pressure, Denies swelling in mouth, Denies swelling in throat, Denies sore throat, Denies vertigo, Denies voice changes Cardiovascular: Reports as per HPI, Denies claudication, Denies high blood pressure, Denies irregular heart beat, Denies leg edema, Denies orthopnea, Denie s palpitations, Denies paroxysmal nocturnal dyspnea, Denies rapid heart beat, Denies shortness of breath Respiratory: Reports as per HPI, Denies congestion, Denies cough, Denies cough with sputum, Denies dyspnea, Denies excessive sputum, Denies hemoptysis, Denies home oxygen, Denies pain, Denies pain on inspiration, Denies pleurisy, Denies respiratory infections, Denies sleep apnea, Denies snoring, Denies wheezing Gastrointestinal: Reports as per HPI, Reports indigestion, Denies abdominal pain, Denies change in bowel habits, Denies coffee ground emesis, Denies heartburn, Denies nausea Genitourinary: Reports as per HPI, Denies flank pain, Denies urinary frequency, Denies urinary hesitancy, Denies urinary retention Musculoskeletal: Reports as per HPI, Reports low back pain, Denies gait dysfu nction Integumentary: Reports as per HPI, Denies dryness, Denies lesions, Denies rash Neurological: Denies aphasia, Denies ataxia, Denies burning pain, Denies lack of coordination, Denies loss of vision, Denies syncope, Denies tingling Psychiatric: Reports as per HPI, Denies depression, Denies difficulty concentrating, Denies insomnia Endocrine: Reports as per HPI, Reports cold intolerance, Reports fatigue, Denies heat intolerance, Denies nocturia, Denies palpitations, Denies thyroid mass Hematologic/Lymphatic: Reports as per HPI, Denies easy bruising Allergic/Immunologic: Denies allergic rhinitis, Denies angioedema, Denies gluten intolerance, Denies urticaria, Denies wheezing Past Medical History Past Medical History: Coronary Artery Disease (CAD), Chest Pain / Angina, Eye Disorder, GERD/Reflux, Hyperlipidemia, Hypertension, Myocardial Infarction (NM), Osteoarthritis (OA) Additional Past Medical History / Comment(s): nausea/vomiting/diarrhea, Neck pain, SVT with ablation, duodenal ulcers, chronic duodenal stricture, bilateral glaucoma, sinusitis, migraines, anemia, esophagitis,hiatal hernia, chronic back pain, past fx ribs/sternum; Agent orange exposure Last Myocardial Infarction Date:: 1999 History of Any Multi-Drug Resistant Organisms: None Reported Past Surgical History: Cardiac Ablation, Cholecystectomy, Heart Catheterization With Stent Additional Past Surgical History / Comment(s): stent right eye 03/2018, Left eye stent 2020, PCI with 3 stents, sinus surgery, cataracts bilaterally with lens implants, EGDs/colonoscopies,[place] with Dr. Marcus 2019 Past Anesthesia/Blood Transfusion Reactions: No Reported Reaction Additional Past Anesthesia/Blood Transfusion Reaction / Comment(s): Pt has had past multiple transfusions without reaction. Date of Last Stent Placement:: 1999 Past Psychological History: Anxiety Additional Psychological History / Comment(s): Pt resides with his spouse. He served in the [email or web address]. He is independent. Smoking Status: Former smoker Past Alcohol Use History: None Reported Additional Past Alcohol Use History / Comment(s): Patient was a smoker for only a few years in his 40s. Past Drug Use History: None Reported - Past Family History Father Additional Family Medical History / Comment(s): Father at the age of 68yrs from a ruptured aortic aneurysm. Mother Additional Family Medical History / Comment(s): Mother lived into her 80's. Brother(s) Family Medical History: Cancer Additional Family Medical History / Comment(s): The patient had 3 brothers. One from colon cancer with metastatic disease to the brain. One brother at age 79 from a myocardial infarction. He has 1 brother that is alive with history of skin cancer and diabetes. Sister(s) Additional Family Medical History / Comment(s): The patient is a total of 3 sisters. One in her 80s from myocardial infarction. One sister at age 58 from coronary artery disease and also had a valvular disorder. Patient has one sister alive with diabetes and multiple other medical conditions. Patient has 2 sons and 1 daughter with no major medical problems. Medications and Allergies Home Medications Medication Instructions Recorded Confirmed Type Simvastatin [Zocor] 40 mg PO HS 07/12/13 09/21/21 History Dicyclomine [Bentyl] 10 mg PO TID 06/04/17 09/21/21 History Latanoprost [Xalatan 0.005%] 1 drop BOTH EYES HS 09/20/18 09/21/21 History Losartan Potassium 100 mg PO DAILY 09/20/18 09/21/21 History Metoprolol Tartrate [Lopressor] 25 mg PO BID 09/20/18 09/21/21 History Ondansetron [Zofran ODT] 4 mg PO BID PRN 09/20/18 09/21/21 History Butalb/APAP/Caff 50-325-40Mg 2 tab PO Q6H PRN MDD 3caps/24hr 10/06/18 09/21/21 History [Fioricet 50-325-40] Escitalopram [Lexapro] 10 mg PO HS 10/06/18 09/21/21 History Brimonidine Tartrate [Alphagan P 1 drop BOTH EYES BID 12/25/19 09/21/21 History 0.2% Ophth Soln] Cholecalciferol [Vitamin D3 (25 50 mcg PO DAILY 12/25/19 09/21/21 History Mcg = 1000 Iu)] Furosemide [Lasix] 20 mg PO DAILY 12/25/19 09/21/21 History Potassium Chloride ER [K-Dur 20] 20 meq PO DAILY 12/25/19 09/21/21 History Testosterone Cypionate 100 mg IM Q14D 12/25/19 09/21/21 History [Depo-Testosterone] diazePAM [Valium] 5 mg PO HS PRN 12/25/19 09/21/21 History Acetaminophen Tab [Tylenol] 650 mg PO Q4H PRN 12/28/19 09/21/21 History Metoclopramide HCl [Reglan] 10 mg PO TID 05/25/20 09/21/21 History Amitriptyline HCl [Elavil] 12.5 mg PO HS 09/21/21 09/21/21 History Clobetasol Propionate/Emoll 1 applic TOPICAL DAILY PRN 09/21/21 09/21/21 History [Clobetasol Emulsion 0.05% Foam] Diclofenac Sodium Gel [Voltaren 2 - 4 gm TOPICAL QID PRN 09/21/21 09/21/21 History Gel] Gabapentin 800 mg PO TID 09/21/21 09/21/21 History Ketoconazole 2% Shampoo [Nizoral] 1 applic TOPICAL Q72H PRN 09/21/21 09/21/21 History Ondansetron [Zofran] 4 mg PO TID PRN 09/21/21 09/21/21 History Sodium Chloride Tab 1 gm PO BID 09/21/21 09/21/21 History tadalafiL 10 mg PO DAILY@1300 09/21/21 09/21/21 History Allergies Allergy/AdvReac Type Severity Reaction Status Date / Time atorvastatin [From Lipitor] AdvReac MUSCLE Verified 09/21/21 17:57 CRAMPS hydrochlorothiazide AdvReac Patient Verified 09/21/21 21:53 had episode of severe hyponatremia requiring hospita ropinirole [From Requip] AdvReac Hallucinati Verified 09/21/21 21:53 ons Physical Exam Vitals: Vital Signs Temp Pulse Resp BP Pulse Ox 09/22/21 07:00 103 H 27 H 129/74 95 09/22/21 06:00 69 16 135/77 95 09/22/21 05:00 68 14 127/73 93 L 09/22/21 04:00 98 F 68 10 L 118/66 97 09/22/21 03:00 70 12 118/69 93 L 09/22/21 02:00 69 15 127/72 94 L 09/22/21 01:00 98.1 F 71 14 127/80 96 09/22/21 00:00 82 18 130/76 97 09/21/21 23:30 27 H 96 09/21/21 23:18 80 12 155/96 98 09/21/21 23:00 78 9 L 98 09/21/21 22:30 79 8 L 155/96 98 09/21/21 22:00 78 13 150/93 98 09/21/21 21:50 78 17 98 09/21/21 21:00 98.1 F 77 10 L 136/85 95 09/21/21 17:52 98.3 F 88 18 123/73 97 Intake and Output 09/21/21 09/22/21 09/22/21 22:59 06:59 14:59 Intake Total 1290 Output Total 1500 Balance -210 Intake: IV 1040 Sodium Chloride 0.9% 1, 390 000 ml @ 130 mls/hr IV . Q7H42M STA Rx#:[id number] Sodium Chloride 0.9% 1, 650 000 ml @ 50 mls/hr IV . Q20H DANIEL Rx#:[id number] Oral 250 Output: Urine 1500 Other: Voiding Method Urinal # Voids 2 Weight 87.09 kg 89.1 kg - Constitutional General appearance: cooperative, no acute distress, thin - EENT Eyes: EOMI, PERRLA, photophobia, normal appearance - Neck Neck: normal ROM - Respiratory Respiratory: bilateral: CTA, negative: diminished, dullness, rales - Cardiovascular Rhythm: regular Heart sounds: normal: S1, S2 - Gastrointestinal General gastrointestinal: normal bowel sounds, soft - Integumentary Integumentary: normal - Musculoskeletal Musculoskeletal: gait normal, generalized weakness, strength equal bilaterally - Psychiatric Psychiatric: A&O x's 3, appropriate affect, intact judgment & insight Results CBC & Chem 7: 09/22/21 05:41 09/22/21 10:03 Labs: Abnormal Lab Results - Last 24 Hours (Table) 09/21/21 09/21/21 09/21/21 Range/Units 17:59 17:59 20:12 Hct 37.8 L (39.0-53.0) % Sodium 114 L* (137-145) mmol/L Chloride 84 L (98-107) mmol/L Carbon Dioxide 20 L (22-30) mmol/L BUN 4 L (9-20) mg/dL Creatinine 0.61 L (0.66-1.25) mg/dL Glucose 139 H (74-99) mg/dL POC Glucose (mg/dL) (70-110) mg/dL Osmolality 239 L* (280-301) mosm/kg Magnesium 1.4 L (1.6-2.3) mg/dL 09/22/21 09/22/21 09/22/21 Range/Units 00:26 00:46 05:41 Hct (39.0-53.0) % Sodium 114 L* 118 L* (137-145) mmol/L Chloride 85 L 87 L (98-107) mmol/L Carbon Dioxide 21 L (22-30) mmol/L BUN 3 L 3 L (9-20) mg/dL Creatinine 0.51 L 0.59 L (0.66-1.25) mg/dL Glucose 107 H 102 H (74-99) mg/dL POC Glucose (mg/dL) 120 H (70-110) mg/dL Osmolality (280-301) mosm/kg Magnesium (1.6-2.3) mg/dL Thrombosis Risk Factor Assmnt - DVT/VTE Prophylaxis DVT/VTE Prophylaxis: Low risk, early ambulation encouraged - Choose All That Apply Any of the Below Risk Factors Present?: No Other Risk Factors: Yes Each Risk Factor Represents 2 Points: Age 61-74 years Other congenital or acquired thrombophilia - If yes, enter type in comment: No Thrombosis Risk Factor Assessment Total Risk Factor Score: 2 Thrombosis Risk Factor Assessment Level: Low Risk
[2021-09-22] MEDS ORDERED: LORazepam 2 MG/ML INJ IV STA (20:38)
[2021-09-22] MEDS: NON FORMULARY DRUG (Simvastatin 40 MG Tab) PO SCH (21:19)
[2021-09-22] MEDS: ESCITALOPRAM 10 MG TAB PO SCH (22:09)
[2021-09-22] MEDS: AMITRIPTYLINE HCL 25 MG TAB PO SCH (22:10)
[2021-09-22] MEDS: LORazepam 2 MG/ML INJ IV PRN (23:06)
[2021-09-22] MEDS: LATANOPROST 0.005% OPHTH DROPS 2.5 ML BTL BOTH EYES SCH (23:16)
[2021-09-22] MEDS ORDERED: DEXMEDETOMIDINE/0.9% NACL(PMX) 400 MCG in EMPTY BAG 1 BAG IV SCH (23:30)
[2021-09-23] MEDS: LORazepam 2 MG/ML INJ IV PRN (02:38)
[2021-09-23 06:09] LABS: Calcium 8.7 mg/dL (8.4-10.2); Magnesium 2.2 mg/dL (1.6-2.3); Potassium 4.9 mmol/L (3.5-5.1)
[2021-09-23] MEDS: GABAPENTIN 400 MG CAP PO SCH ×3 (08:27→21:10)
[2021-09-23] MEDS: LOSARTAN 50 MG TAB PO SCH (08:27)
[2021-09-23] MEDS: PANTOPRAZOLE 40 MG/10 ML VIAL IV SCH (08:27)
[2021-09-23] MEDS: CHOLECALCIFEROL 25 MCG (1000 IU) TABLET PO SCH (08:28)
[2021-09-23] MEDS: METOPROLOL TARTRATE 25 MG TAB PO SCH ×2 (08:28→21:10)
[2021-09-23] MEDS: SODIUM CHLORIDE TAB 1 GM TAB PO SCH ×2 (08:28→21:10)
[2021-09-23] MEDS: POTASSIUM CHLORIDE ER 20 MEQ TAB.ER PO SCH (08:28)
[2021-09-23] MEDS: DICYCLOMINE 10 MG CAP PO SCH ×3 (08:28→21:09)
[2021-09-23] MEDS: BRIMONIDINE TARTRATE 0.2% DROPS 5 ML BTL BOTH EYES SCH ×2 (09:33→21:13)
[2021-09-23] MEDS: SODIUM CHLORIDE 0.9% 1,000 ML IV SCH ×2 (09:33→23:16)
--- NOTE | 2021-09-23 09:57 | P.PN ---
Subjective Patient is seen for follow-up for hyponatremia. Serum sodium was 114 at the time of admission and it is up to 126 today. Currently patient is sleeping. Had jerky movements overnight and was treated with Ativan. Possible seizure. Patient has had good urine output Hemodynamically stable Rate of increased in sodium has been appropriate. Currently off of IV fluids. Sodium chloride tabs were also held yesterday after morning dose. Objective - Vital Signs Vital signs: Vital Signs Temp 98.2 F 09/23/21 08:00 Pulse 81 09/23/21 09:00 Resp 21 09/23/21 09:00 BP 112/54 09/23/21 09:00 Pulse Ox 97 09/23/21 09:00 FiO2 Intake & Output 09/22/21 09/23/21 09/23/21 18:59 06:59 18:59 Intake Total 500 31.038 70.196 Output Total 2700 930 90 Balance -2200 -898.962 -19.804 Weight 89.1 kg Intake: Intake, IV Titration 31.038 70.196 Amount Dexmedetomidine/0.9% NaCl 31.038 20.196 (Pmx) 400 mcg In Empty Bag 1 bag @ 0.2 MCG/KG/HR 4.455 mls/hr IV .[id number] [facility] Rx#:[id number] Sodium Chloride 0.9% 1, 50 000 ml @ 50 mls/hr IV . Q20H [facility] Rx#:[id number] Oral 500 0 Output: Urine 2700 930 90 Other: Voiding Method Urinal Indwelling Catheter Indwelling Catheter - Exam Comfortable Sleeping Received Ativan this morning Examination of the heart S1 and S2 Examination lungs bilateral breath sounds are heard Abdomen is soft nontender Examination of the lower extremity shows no evidence of edema - Labs CBC & Chem 7: 09/22/21 05:41 09/23/21 05:31 Labs: Abnormal Lab Results - Last 24 Hours (Table) 09/22/21 09/22/21 09/22/21 Range/Units 10:03 16:57 21:10 Sodium 122 L 124 L 126 L (137-145) mmol/L Chloride 92 L (98-107) mmol/L BUN 3 L (9-20) mg/dL Creatinine 0.64 L (0.66-1.25) mg/dL Glucose 118 H (74-99) mg/dL 09/23/21 09/23/21 Range/Units 01:17 05:31 Sodium 124 L 126 L (137-145) mmol/L Chloride (98-107) mmol/L BUN (9-20) mg/dL Creatinine (0.66-1.25) mg/dL Glucose 103 H (74-99) mg/dL Assessment and Plan Assessment: 1. Hypovolemic hyponatremia with underlying history of chronic hyponatremia. Improved with saline infusion initially. Saline currently on hold along with sodium chloride tabs. Sodium is 126 today which is appropriately increased from 114 on admission.. 2. Hypovolemia, status post IV fluids 3. Nausea, vomiting and diarrhea, currently improved. No fever noted. 4. Coronary artery disease with history of coronary stents Plan: Resume sodium chloride tabs Repeat sodium at about 10 AM Encourage increased oral intake
[2021-09-23] MEDS: NON FORMULARY DRUG (Tadalafil [Tadalafil] 10 MG Tablet) PO SCH (11:33)
--- NOTE | 2021-09-23 11:42 | P.PN ---
Subjective Progress Note Date: 09/23/21 Principal diagnosis: Hypovolemic hyponatremia 68-year-old male patient is coming in with generalized weakness and the patient is known to have intractable nausea and emesis and diarrhea that has been worked up extensively in the past without any clear diagnosis. The patient came into the hospital because of generalized weakness and dizziness and the patient was found to be hyponatremic and this was a hypochloremic hyponatremia with a sodium level of 114. This has occurred to the patient the past and this is mainly due to intravascular volume depletion and dietary diminished intake and volume loss. The patient has not been eating much over the past several days. His been taken Lasix. No hypotension. No seizure activity. No altered mentation. He was given normal saline at the rate of 100 an hour and a sodium level is up to 118. No other complaints otherwise for now. Reevaluated today on 09/23/21, patient remains in the ICU, he had to be placed on Precedex last night because of extreme agitation, his hyponatremia is correcting nicely. His sodium is 126 today. His initial presentation sodium was 114. Patient is relatively asymptomatic, he seems to be very calm, not agitated, hence I discontinued his Precedex. Patient is on room air, does not seem to be in any distress. Patient is known to have history of chronic nausea and vomiting and chronic duodenal strictures. Labs were all reviewed today, and he is on 0.9 normal saline at 50 mL per hour. Objective - Vital Signs Vital signs: Vital Signs Temp 98.2 F 09/23/21 08:00 Pulse 73 09/23/21 11:00 Resp 22 09/23/21 11:00 BP 122/58 09/23/21 11:00 Pulse Ox 97 09/23/21 11:00 FiO2 Intake & Output 09/22/21 09/23/21 09/23/21 18:59 06:59 18:59 Intake Total 500 31.038 170.196 Output Total 2700 930 190 Balance -2200 -898.962 -19.804 Weight 89.1 kg Intake: Intake, IV Titration 31.038 170.196 Amount Dexmedetomidine/0.9% NaCl 31.038 20.196 (Pmx) 400 mcg In Empty Bag 1 bag @ 0.2 MCG/KG/HR 4.455 mls/hr IV .[id number] [facility] Rx#:[id number] Sodium Chloride 0.9% 1, 150 000 ml @ 50 mls/hr IV . Q20H [facility] Rx#:[id number] Oral 500 0 Output: Urine 2700 930 190 Other: Voiding Method Urinal Indwelling Catheter Indwelling Catheter - Exam Physical Exam: Revealed a 70-year-old white male in no distress Head: Atraumatic, normocephalic. HEENT:[Neck is supple.] [No neck masses.] [No thyromegaly.] [No JVD.] Chest: [Clear throughout, no crackles, no rhonchi, no wheezes.] Cardiac Exam: [Normal S1 and S2, no S3 gallop, no murmur.] Abdomen: [Soft, nontender, no megaly, no rebound, no guarding, normal bowel sounds.] Extremities: [No clubbing, no edema, no cyanosis.] Neurological Exam: [No focal neurologic deficit.] Alert oriented 3. Psychiatric: Normal mood affect and normal mental status examination. Skin: No rashes. - Labs CBC & Chem 7: 09/22/21 05:41 09/23/21 05:31 Labs: Abnormal Lab Results - Last 24 Hours (Table) 09/22/21 09/22/21 09/23/21 Range/Units 16:57 21:10 01:17 Sodium 124 L 126 L 124 L (137-145) mmol/L Glucose (74-99) mg/dL 09/23/21 Range/Units 05:31 Sodium 126 L (137-145) mmol/L Glucose 103 H (74-99) mg/dL Assessment and Plan Assessment: Acute hypovolemic hyponatremia Intractable nausea and vomiting, chronic Coronary arteriosclerosis and previous stent placement Benign essential hypertension Recurrent depression Dyslipidemia History of SVT Chronic anemia History of esophagitis and hiatal hernia chronic back pain History of exposure to agent orange. Recommendation: Continue hydration slowly Continue antiemetic medications Continue to monitor electrolytes and correct accordingly Transfer patient out of the ICU to regular medical floor Discontinue Precedex We will continue to follow Time with Patient: Less than 30
[2021-09-23] MEDS: ONDANSETRON 4 MG/2 ML VIAL IVP PRN (11:57)
[2021-09-23] MEDS: METOCLOPRAMIDE 5 MG/ML 2 ML VIAL IVP PRN (11:58)
[2021-09-23] MEDS: ACETAMINOPHEN TAB 325 MG TAB PO PRN (12:33)
--- NOTE | 2021-09-23 16:59 | PN ---
PROGRESS NOTE DATE OF SERVICE: 09/23/2021 This 70-year-old gentleman who was admitted with acute nausea, vomiting and diarrhea also had significant hyponatremia. The sodium was 114 on admission. Patient being closely monitored in ICU. No chest pain. No palpitations. Past medical reviewed. REVIEW OF SYSTEMS: Cardiovascular: No angina. Respiratory as mentioned earlier. as mentioned earlier. Nervous system: Mildly confused. CURRENT MEDICATIONS: Reviewed and include Fioricet. Dose and the rest of medications noted. PHYSICAL EXAMINATION: Pulse is 80. Blood pressure is 112/60, respirations 19. HEENT: Conjunctivae normal. Neck: No JVD. Cardiovascular: S1, S2 muffled. Respirations: Breath sounds diminished in the bases. A few scattered rhonchi. Abdomen: Soft, nontender. Legs: No edema. No swelling. Nervous system: Diffusely weak. LABS: Reviewed: Sodium 124. ASSESSMENT: 1. Intractable nausea, vomiting, diarrhea, possible acute gastroenteritis. 2. Severe hyponatremia hypovolemic. 3. Coronary artery disease/stent. 4. Hypertension. 5. History of SVT. 6. Multiple medical issues. RECOMMENDATIONS AND DISCUSSION: Recommend to continue current medications, management and symptomatic treatment. Continue the hydration. Repeat labs. Repeat lytes. Closely monitored in ICU. Closely follow with Dr. Richards. Guarded prognosis. Further recommendations to follow. MMODL / IJN: [id number] /
[2021-09-23] MEDS: HYDROmorphone 0.5 MG/0.5 ML SYRINGE IVP PRN ×3 (18:24→23:14)
[2021-09-23 20:29] LABS: Potassium 4.3 mmol/L (3.5-5.1)
[2021-09-23] MEDS: AMITRIPTYLINE HCL 25 MG TAB PO SCH (21:09)
[2021-09-23] MEDS: ESCITALOPRAM 10 MG TAB PO SCH (21:10)
[2021-09-23] MEDS: LATANOPROST 0.005% OPHTH DROPS 2.5 ML BTL BOTH EYES SCH (21:13)
[2021-09-23] MEDS: NON FORMULARY DRUG (Simvastatin 40 MG Tab) PO SCH (21:20)
[2021-09-23] MEDS: BUTALB/APAP/CAFF 50-325-40MG TAB PO PRN (22:09)
[2021-09-23] MEDS: diazePAM 5 MG TAB PO PRN (23:14)
[2021-09-24] MEDS: HYDROmorphone 0.5 MG/0.5 ML SYRINGE IVP PRN ×7 (01:50→22:08)
[2021-09-24] MEDS: BUTALB/APAP/CAFF 50-325-40MG TAB PO PRN ×4 (04:03→22:48)
[2021-09-24 06:04] LABS: HCT 33.8 % (39.0-53.0); HGB 11.3 gm/dL (13.0-17.5); MCH 31.7 pg (25.0-35.0); MCHC 33.6 g/dL (31.0-37.0); MCV 94.4 fL (80.0-100.0); Mean Platelet Volume 6.4; Platelet Count 265 k/uL (150-450); RBC 3.58 m/uL (4.30-5.90); RDW 12.8 % (11.5-15.5); WBC 6.5 k/uL (3.8-10.6)
[2021-09-24 06:11] LABS: ALT 8 U/L (4-49); AST 15 U/L (17-59); African American GFR (CKD) >90 (>60 ml/min/1.73 sqM); Albumin 3.3 g/dL (3.5-5.0); Alkaline Phosphatase 77 U/L (38-126); Anion Gap 7 mmol/L; Blood Urea Nitrogen 8 mg/dL (9-20); Calcium 8.1 mg/dL (8.4-10.2); Carbon Dioxide 21 mmol/L (22-30); Chloride 101 mmol/L (98-107); Glucose 122 mg/dL (74-99); Non-African American GFR(CKD) >90 (>60 ml/min/1.73 sqM); Potassium 4.5 mmol/L (3.5-5.1); Sodium 129 mmol/L (137-145); Total Bilirubin 0.3 mg/dL (0.2-1.3); Total Protein 5.7 g/dL (6.3-8.2)
[2021-09-24] MEDS: PANTOPRAZOLE 40 MG TABLET PO SCH (06:57)
[2021-09-24] MEDS: ONDANSETRON 4 MG/2 ML VIAL IVP PRN ×2 (08:49→16:46)
[2021-09-24] MEDS: SODIUM CHLORIDE TAB 1 GM TAB PO SCH ×2 (08:56→22:07)
[2021-09-24] MEDS: CHOLECALCIFEROL 25 MCG (1000 IU) TABLET PO SCH (08:56)
[2021-09-24] MEDS: POTASSIUM CHLORIDE ER 20 MEQ TAB.ER PO SCH (08:56)
[2021-09-24] MEDS: GABAPENTIN 400 MG CAP PO SCH ×3 (08:56→22:06)
[2021-09-24] MEDS: LOSARTAN 50 MG TAB PO SCH (08:57)
[2021-09-24] MEDS: METOPROLOL TARTRATE 25 MG TAB PO SCH ×2 (08:57→22:06)
[2021-09-24] MEDS: DICYCLOMINE 10 MG CAP PO SCH ×3 (08:57→22:07)
[2021-09-24] MEDS: BRIMONIDINE TARTRATE 0.2% DROPS 5 ML BTL BOTH EYES SCH ×2 (10:51→22:49)
--- NOTE | 2021-09-24 11:38 | P.PN ---
Subjective Progress Note Date: 09/24/21 Principal diagnosis: Hypovolemic hyponatremia 68-year-old male patient is coming in with generalized weakness and the patient is known to have intractable nausea and emesis and diarrhea that has been worked up extensively in the past without any clear diagnosis. The patient came into the hospital because of generalized weakness and dizziness and the patient was found to be hyponatremic and this was a hypochloremic hyponatremia with a sodium level of 114. This has occurred to the patient the past and this is mainly due to intravascular volume depletion and dietary diminished intake and volume loss. The patient has not been eating much over the past several days. His been taken Lasix. No hypotension. No seizure activity. No altered mentation. He was given normal saline at the rate of 100 an hour and a sodium level is up to 118. No other complaints otherwise for now. Reevaluated today on 09/23/21, patient remains in the ICU, he had to be placed on Precedex last night because of extreme agitation, his hyponatremia is correcting nicely. His sodium is 126 today. His initial presentation sodium was 114. Patient is relatively asymptomatic, he seems to be very calm, not agitated, hence I discontinued his Precedex. Patient is on room air, does not seem to be in any distress. Patient is known to have history of chronic nausea and vomiting and chronic duodenal strictures. Labs were all reviewed today, and he is on 0.9 normal saline at 50 mL per hour. Reevaluated today on 09/24/21, patient is still in the ICU, basically asymptomatic except for intermittent episodes of nausea but no vomiting. Patient is calm, not in any distress, he is actually on room air. O2 saturations 97%, he is hemodynamically stable, blood pressure is 105/60. CBC is relatively normal electrolytes showed improvement in his sodium up to 129. Renal profile is normal. Remains on IV fluid at 50 mL per hour in the form of 0.9 normal saline Objective - Vital Signs Vital signs: Vital Signs Temp 98.4 F 09/24/21 08:00 Pulse 58 L 09/24/21 11:00 Resp 10 L 09/24/21 11:00 BP 105/60 09/24/21 11:00 Pulse Ox 97 09/24/21 11:00 FiO2 Intake & Output 09/23/21 09/24/21 09/24/21 18:59 06:59 18:59 Intake Total 570.196 800 250 Output Total 540 900 175 Balance 30.196 -100 75 Weight 89.5 kg Intake: Intake, IV Titration 470.196 650 50 Amount Dexmedetomidine/0.9% NaCl 20.196 (Pmx) 400 mcg In Empty Bag 1 bag @ 0.2 MCG/KG/HR 4.455 mls/hr IV .[id number] [facility] Rx#:[id number] Sodium Chloride 0.9% 1, 450 650 50 000 ml @ 50 mls/hr IV . Q20H [facility] Rx#:[id number] Oral 100 150 200 Output: Urine 540 900 175 Other: Voiding Method Indwelling Catheter Urinal Urinal - Exam Physical Exam: Revealed a 70-year-old white male in no distress on room air. Head: Atraumatic, normocephalic. HEENT:[Neck is supple.] [No neck masses.] [No thyromegaly.] [No JVD.] Chest: [Clear throughout, no crackles, no rhonchi, no wheezes.] Cardiac Exam: [Normal S1 and S2, no S3 gallop, no murmur.] Abdomen: [Soft, nontender, no megaly, no rebound, no guarding, normal bowel so unds.] Extremities: [No clubbing, no edema, no cyanosis.] Neurological Exam: [No focal neurologic deficit.] Alert oriented 3. Psychiatric: Normal mood affect and normal mental status examination. Skin: No rashes. - Labs CBC & Chem 7: 09/24/21 05:33 09/24/21 05:33 Labs: Abnormal Lab Results - Last 24 Hours (Table) 09/23/21 09/23/21 09/24/21 Range/Units 10:52 20:01 05:33 RBC (4.30-5.90) m/uL Hgb (13.0-17.5) gm/dL Hct (39.0-53.0) % Sodium 124 L 129 L 129 L (137-145) mmol/L Carbon Dioxide 21 L (22-30) mmol/L BUN 8 L (9-20) mg/dL Creatinine 0.60 L (0.66-1.25) mg/dL Glucose 122 H (74-99) mg/dL Calcium 8.1 L (8.4-10.2) mg/dL AST 15 L (17-59) U/L Total Protein 5.7 L (6.3-8.2) g/dL Albumin 3.3 L (3.5-5.0) g/dL 09/24/ Range/Units 05:33 RBC 3.58 L (4.30-5.90) m/uL Hgb 11.3 L (13.0-17.5) gm/dL Hct 33.8 L (39.0-53.0) % Sodium (137-145) mmol/L Carbon Dioxide (22-30) mmol/L BUN (9-20) mg/dL Creatinine (0.66-1.25) mg/dL Glucose (74-99) mg/dL Calcium (8.4-10.2) mg/dL AST (17-59) U/L Total Protein (6.3-8.2) g/dL Albumin (3.5-5.0) g/dL Assessment and Plan Assessment: Acute hypovolemic hyponatremia Intractable nausea and vomiting, chronic Coronary arteriosclerosis and previous stent placement Benign essential hypertension Recurrent depression Dyslipidemia History of SVT Chronic anemia History of esophagitis and hiatal hernia chronic back pain History of exposure to agent orange. Recommendation: Continue IV fluids Continue antiemetic medications Dr. bird was consulted, no GI service available. Transfer patient out of the ICU to a medical surgical floor. We will continue to follow Time with Patient: Less than 30
[2021-09-24] MEDS: NON FORMULARY DRUG (Tadalafil [Tadalafil] 10 MG Tablet) PO SCH (12:30)
--- NOTE | 2021-09-24 14:16 | PN ---
PROGRESS NOTE DATE OF SERVICE: 09/24/2021 This 70-year-old gentleman who was admitted with severe hyponatremia, nausea, vomiting, diarrhea is being closely monitored. No chest pain. No palpitation. Sodium is 129 at this time. Nephrology is following the patient closely. Patient monitored in ICU. Past medical history reviewed. REVIEW OF SYSTEMS: A 14 point review of systems negative as mentioned earlier. CURRENT MEDICATIONS: Reviewed and include: Elavil, dose and rest of medications noted. PHYSICAL EXAMINATION: Pulse is 58, blood pressure 105/60, Respirations 15. HEENT: Conjunctivae normal. Neck: No JVD. Cardiovascular: S1, S2 muffled. Respirations: Breath sounds diminished in the bases. A few scattered rhonchi. Abdomen: Soft, obese. Legs: No edema. No swelling. Nervous system: No focal deficits. LABS: Hemoglobin 11.3, sodium is 129. ASSESSMENT: 1. Severe hyponatremia possibly hypovolemic and hyponatremia. 2. Intractable nausea, vomiting, diarrhea, possible acute gastroenteritis. 3. Coronary artery disease, stent. 4. Hypertension. 5. History of AICD. 6. Multiple medical issues. RECOMMENDATIONS AND DISCUSSION: Recommend to continue current medications, management and symptomatic treatment. Otherwise COVID is negative. The lab values slightly improved. We will continue to monitor. Prognosis guarded. Further recommendations to follow. MMODL / IJN: [id number] /
--- NOTE | 2021-09-24 15:04 | P.GSCN ---
History of Present Illness Consult date: 09/24/21 Reason for Consult: Duodenal stricture History of present illness: 70-year-old male came to the hospital with weakness and dizziness. Patient was found to have significant hyponatremia. Patient says he has intermittent episodes of vomiting and abdominal discomfort. He had 4 days where he said he felt he had difficult time eating anything. He says he will go many months between these episodes however. Patient with history of duodenal stricture in the past. This was not seen on the December 2019 EGD by GI however was seen 2 years prior to that. This was described as nonobstructive that time. In May of last year patient had a CAT scan performed and there does appear to be some luminal abnormality involving the second portion of the duodenum. Patient denies pain currently. He is in the ICU because of his hyponatremia. He says he is tolerating regular food these last few days without any difficulty. No recent imaging of the GI tract. Review of Systems The patient denies any acute changes in vision or hearing, no dysphagia or odynophagia, no chest pain or shortness of breath, no dysuria or hematuria, no headache, no runny nose, no rectal bleeding or melena, no unexplained weight loss Past Medical History Past Medical History: Coronary Artery Disease (CAD), Chest Pain / Angina, Eye Disorder, GERD/Reflux, Hyperlipidemia, Hypertension, Myocardial Infarction (CO), Osteoarthritis (OA) Additional Past Medical History / Comment(s): recent admission for nausea/vomiting/diarrhea, Neck pain, SVT with ablation, duodenal ulcers, chronic duodenal stricture, bilateral glaucoma, sinusitis, migraines, anemia, esophagitis,hiatal hernia, chronic back pain, past fx ribs/sternum Last Myocardial Infarction Date:: 1999 History of Any Multi-Drug Resistant Organisms: None Reported Past Surgical History: Cardiac Ablation, Cholecystectomy, Heart Catheterization With Stent Additional Past Surgical History / Comment(s): stent right eye 03/2018, PCI with 3 stents, sinus surgery, cataracts bilaterally with lens implants, EGDs/colonoscopies, Past Anesthesia/Blood Transfusion Reactions: No Reported Reaction Additional Past Anesthesia/Blood Transfusion Reaction / Comm: Pt has had past m ultiple transfusions without reaction. Date of Last Stent Placement:: 1999 Past Psychological History: Anxiety Smoking Status: Former smoker Past Alcohol Use History: None Reported Past Drug Use History: None Reported - Past Family History Father Additional Family Medical History / Comment(s): Father at the age of 68yrs from a ruptured aortic aneurysm. Mother Additional Family Medical History / Comment(s): Mother lived into her 80's. Brother(s) Family Medical History: Cancer Additional Family Medical History / Comment(s): The patient had 3 brothers. One from colon cancer with metastatic disease to the brain. One brother at age 79 from a myocardial infarction. He has 1 brother that is alive with history of skin cancer and diabetes. Sister(s) Additional Family Medical History / Comment(s): The patient is a total of 3 sisters. One in her 80s from myocardial infarction. One sister at age 58 from coronary artery disease and also had a valvular disorder. Patient has one sister alive with diabetes and multiple other medical conditions. Patient has 2 sons and 1 daughter with no major medical problems. Medications and Allergies Home Medications Medication Instructions Recorded Confirmed Type Simvastatin [Zocor] 40 mg PO HS 07/12/13 09/21/21 History Dicyclomine [Bentyl] 10 mg PO TID 06/04/17 09/21/21 History Latanoprost [Xalatan 0.005%] 1 drop BOTH EYES HS 09/20/18 09/21/21 History Losartan Potassium 100 mg PO DAILY 09/20/18 09/21/21 History Metoprolol Tartrate [Lopressor] 25 mg PO BID 09/20/18 09/21/21 History Ondansetron [Zofran ODT] 4 mg PO BID PRN 09/20/18 09/21/21 History Butalb/APAP/Caff 50-325-40Mg 2 tab PO Q6H PRN MDD 3caps/24hr 10/06/18 09/21/21 History [Fioricet 50-325-40] Escitalopram [Lexapro] 10 mg PO HS 10/06/18 09/21/21 History Brimonidine Tartrate [Alphagan P 1 drop BOTH EYES BID 12/25/19 09/21/21 History 0.2% Ophth Soln] Cholecalciferol [Vitamin D3 (25 50 mcg PO DAILY 12/25/19 09/21/21 History Mcg = 1000 Iu)] Furosemide [Lasix] 20 mg PO DAILY 12/25/19 09/21/21 History Potassium Chloride ER [K-Dur 20] 20 meq PO DAILY 12/25/19 09/21/21 History Testosterone Cypionate 100 mg IM Q14D 12/25/19 09/21/21 History [Depo-Testosterone] diazePAM [Valium] 5 mg PO HS PRN 12/25/19 09/21/21 History Acetaminophen Tab [Tylenol] 650 mg PO Q4H PRN 12/28/19 09/21/21 History Metoclopramide HCl [Reglan] 10 mg PO TID 05/25/20 09/21/21 History Amitriptyline HCl [Elavil] 12.5 mg PO HS 09/21/21 09/21/21 History Clobetasol Propionate/Emoll 1 applic TOPICAL DAILY PRN 09/21/21 09/21/21 History [Clobetasol Emulsion 0.05% Foam] Diclofenac Sodium Gel [Voltaren 2 - 4 gm TOPICAL QID PRN 09/21/21 09/21/21 History Gel] Gabapentin 800 mg PO TID 09/21/21 09/21/21 History Ketoconazole 2% Shampoo [Nizoral] 1 applic TOPICAL Q72H PRN 09/21/21 09/21/21 History Ondansetron [Zofran] 4 mg PO TID PRN 09/21/21 09/21/21 History Sodium Chloride Tab 1 gm PO BID 09/21/21 09/21/21 History tadalafiL 10 mg PO DAILY@1300 09/21/21 09/21/21 History Allergies Allergy/AdvReac Type Severity Reaction Status Date / Time atorvastatin [From Lipitor] AdvReac MUSCLE Verified 09/21/21 17:57 CRAMPS hydrochlorothiazide AdvReac Patient Verified 09/21/21 21:53 had episode of severe hyponatremia requiring hospita ropinirole [From Requip] AdvReac Hallucinati Verified 09/21/21 21:53 ons Surgical - Exam Vital Signs Temp Pulse Resp BP Pulse Ox 98.3 F 88 18 123/73 97 09/21/21 17:52 09/21/21 17:52 09/21/21 17:52 09/21/21 17:52 09/21/21 17:52 Physical exam: General: Well-developed, well-nourished HEENT: Normocephalic, sclerae nonicteric, left parotid swelling related to previous trauma Abdomen: Nontender, nondistended Extremities: No edema Neuro: Alert and oriented Results - Labs 09/24/21 05:33 09/24/21 05:33 Abnormal Lab Results - Last 24 Hours (Table) 09/23/21 09/24/21 09/24/21 Range/Units 20:01 05:33 05:33 RBC 3.58 L (4.30-5.90) m/uL Hgb 11.3 L (13.0-17.5) gm/dL Hct 33.8 L (39.0-53.0) % Sodium 129 L 129 L (137-145) mmol/L Carbon Dioxide 21 L (22-30) mmol/L BUN 8 L (9-20) mg/dL Creatinine 0.60 L (0.66-1.25) mg/dL Glucose 122 H (74-99) mg/dL Calcium 8.1 L (8.4-10.2) mg/dL AST 15 L (17-59) U/L Total Protein 5.7 L (6.3-8.2) g/dL Albumin 3.3 L (3.5-5.0) g/dL Diabetes panel 09/23/21 09/24/21 Range/Units 20:01 05:33 Sodium 129 L 129 L (137-145) mmol/L Potassium 4.3 4.5 (3.5-5.1) mmol/L Chloride 99 101 (98-107) mmol/L Carbon Dioxide 23 21 L (22-30) mmol/L BUN 8 L (9-20) mg/dL Creatinine 0.60 L (0.66-1.25) mg/dL Glucose 122 H (74-99) mg/dL Calcium 8.1 L (8.4-10.2) mg/dL AST 15 L (17-59) U/L ALT 8 (4-49) U/L Alkaline Phosphatase 77 (38-126) U/L Total Protein 5.7 L (6.3-8.2) g/dL Albumin 3.3 L (3.5-5.0) g/dL Calcium panel 09/24/21 Range/Units 05:33 Calcium 8.1 L (8.4-10.2) mg/dL Albumin 3.3 L (3.5-5.0) g/dL Pituitary panel 09/23/21 09/24/21 Range/Units 20:01 05:33 Sodium 129 L 129 L (137-145) mmol/L Potassium 4.3 4.5 (3.5-5.1) mmol/L Chloride 99 101 (98-107) mmol/L Carbon Dioxide 23 21 L (22-30) mmol/L BUN 8 L (9-20) mg/dL Creatinine 0.60 L (0.66-1.25) mg/dL Glucose 122 H (74-99) mg/dL Calcium 8.1 L (8.4-10.2) mg/dL Adrenal panel 09/23/21 09/24/21 Range/Units 20:01 05:33 Sodium 129 L 129 L (137-145) mmol/L Potassium 4.3 4.5 (3.5-5.1) mmol/L Chloride 99 101 (98-107) mmol/L Carbon Dioxide 23 21 L (22-30) mmol/L BUN 8 L (9-20) mg/dL Creatinine 0.60 L (0.66-1.25) mg/dL Glucose 122 H (74-99) mg/dL Calcium 8.1 L (8.4-10.2) mg/dL Total Bilirubin 0.3 (0.2-1.3) mg/dL AST 15 L (17-59) U/L ALT 8 (4-49) U/L Alkaline Phosphatase 77 (38-126) U/L Total Protein 5.7 L (6.3-8.2) g/dL Albumin 3.3 L (3.5-5.0) g/dL Assessment and Plan (1) Duodenal stricture Narrative/Plan: 70-year-old male with intermittent vomiting and epigastric pain. Will order upper GI to be performed tomorrow to evaluate for duodenal abnormalities. Continue diet as tolerated for now. Continue antiacid therapy. Will follow. Current Visit: No Status: Acute Code(s): K31.5 - OBSTRUCTION OF DUODENUM SNOMED Code(s): 05359385
--- NOTE | 2021-09-24 17:31 | PN ---
PROGRESS NOTE Patient is seen for followup for hyponatremia. Serum sodium is up to 129. Patient is maintained on saline at 50 mL/hour. He is also maintained on sodium chloride tabs. This morning patient is awake, comfortable. He is not in any acute distress. On examination, blood pressure is 105/60, heart rate 58 per minute. He is afebrile. Examination of the heart: S1 and S2. Examination of the lungs: Bilateral breath sounds are heard. Abdomen is soft, nontender. Examination of the lower extremities shows no evidence of edema. [employer] exam grossly intact. Labs show sodium 129, potassium 4.5, serum creatinine 0.6. ASSESSMENT: 1. Hyponatremia, hypovolemic, currently improved. Patient has received a few doses of sodium chloride tabs. Serum sodium is up to 129. May continue with the saline. 2. Hypokalemia, status post IV fluids, and currently maintained on saline at 50 mL/hour. 3. Nausea, vomiting and diarrhea, now improved. 4. Coronary artery disease with history of coronary stents. 5. Mental status changes; seems to have improved today. PLAN: Encourage increased oral intake. Repeat sodium this evening. Continue with the sodium chloride tabs. MMODL / IJN: [id number] /
[2021-09-24] MEDS: ESCITALOPRAM 10 MG TAB PO SCH (22:07)
[2021-09-24] MEDS: AMITRIPTYLINE HCL 25 MG TAB PO SCH (22:08)
[2021-09-24] MEDS: NON FORMULARY DRUG (Simvastatin 40 MG Tab) PO SCH (22:19)
[2021-09-24] MEDS: LATANOPROST 0.005% OPHTH DROPS 2.5 ML BTL BOTH EYES SCH (22:50)
[2021-09-24] MEDS: diazePAM 5 MG TAB PO PRN (22:55)
[2021-09-25] MEDS: HYDROmorphone 0.5 MG/0.5 ML SYRINGE IVP PRN ×6 (02:35→22:55)
[2021-09-25] MEDS: ONDANSETRON 4 MG/2 ML VIAL IVP PRN (02:43)
[2021-09-25] MEDS: PANTOPRAZOLE 40 MG TABLET PO SCH (06:17)
[2021-09-25] MEDS: METOCLOPRAMIDE 5 MG/ML 2 ML VIAL IVP PRN (06:18)
[2021-09-25] MEDS: SODIUM CHLORIDE 0.9% 1,000 ML IV SCH ×3 (06:18→20:15)
[2021-09-25] MEDS: METOPROLOL TARTRATE 25 MG TAB PO SCH ×2 (08:21→20:12)
[2021-09-25] MEDS: CHOLECALCIFEROL 25 MCG (1000 IU) TABLET PO SCH (08:21)
[2021-09-25] MEDS: SODIUM CHLORIDE TAB 1 GM TAB PO SCH ×2 (08:21→20:12)
[2021-09-25] MEDS: POTASSIUM CHLORIDE ER 20 MEQ TAB.ER PO SCH (08:21)
[2021-09-25] MEDS: GABAPENTIN 400 MG CAP PO SCH ×3 (08:21→20:11)
[2021-09-25] MEDS: LOSARTAN 50 MG TAB PO SCH (08:21)
[2021-09-25] MEDS: DICYCLOMINE 10 MG CAP PO SCH ×3 (08:21→20:11)
[2021-09-25] MEDS: BRIMONIDINE TARTRATE 0.2% DROPS 5 ML BTL BOTH EYES SCH ×2 (08:22→20:13)
[2021-09-25] MEDS ORDERED: TOLVAPTAN 15 MG 1/2 TABLET PO ONE (10:15)
[2021-09-25] MEDS: NON FORMULARY DRUG (Tadalafil [Tadalafil] 10 MG Tablet) PO SCH (10:19)
--- NOTE | 2021-09-25 10:37 | P.PN ---
Subjective Patient is seen for follow-up for hyponatremia. Serum sodium was 1 14 mg/L on admission and it has slowly increased up to 129 now. Patient was maintained on IV saline and sodium chloride tabs. Last night serum sodium had dropped to 127 from 129 and saline was increased to 100 mL an hour. Sodium today is 129. No significant complaints today. Patient is scheduled for EGD and colonoscopy today. Objective - Vital Signs Vital signs: Vital Signs Temp 98.5 F 09/25/21 01:35 Pulse 54 L 09/25/21 01:35 Resp 19 09/25/21 01:35 BP 95/53 09/25/21 01:35 Pulse Ox 96 09/25/21 01:35 FiO2 Intake & Output 09/24/21 09/25/21 09/25/21 18:59 06:59 18:59 Intake Total 800 950 Output Total 775 850 Balance 25 100 Intake: Intake, IV Titration 300 700 Amount Sodium Chloride 0.9% 1, 300 700 000 ml @ 100 mls/hr IV . Q10H [facility] Rx#:[id number] Oral 500 250 Output: Urine 775 850 Other: Voiding Method Urinal Urinal Urinal - Exam Comfortable Sleeping Received Ativan this morning Examination of the heart S1 and S2 Examination lungs bilateral breath sounds are heard Abdomen is soft nontender Examination of the lower extremity shows no evidence of edema - Labs CBC & Chem 7: 09/24/21 05:33 09/24/21 22:53 Labs: Abnormal Lab Results - Last 24 Hours (Table) 09/24/21 09/24/21 Range/Units 17:44 22:53 Sodium 127 L 129 L (137-145) mmol/L Assessment and Plan Assessment: 1. Hypovolemic hyponatremia with underlying history of chronic hyponatremia. Improved with saline infusion. Sodium had dropped to 127 yesterday and saline was increased to 100 mL an hour. There might be an underlying component of SIADH as serum sodium remains on the lower side even with IV hydration. It might worsen once the hypovolemic component is corrected. 2. Hypovolemia, status post IV fluids 3. Nausea, vomiting and diarrhea, currently improved. No fever noted. 4. Coronary artery disease with history of coronary stents Plan: Continue with saline Samsca 7.5 mg by mouth 1
--- NOTE | 2021-09-25 11:46 | P.PN ---
Subjective Progress Note Date: 09/25/21 Principal diagnosis: Intractable nausea Patient doing well today. Denies abdominal pain. Tolerating regular diet up until midnight. Ordered upper GI for this morning. That study is pending. Objective - Vital Signs Vital signs: Vital Signs Temp 98.5 F 09/25/21 01:35 Pulse 54 L 09/25/21 01:35 Resp 19 09/25/21 01:35 BP 95/53 09/25/21 01:35 Pulse Ox 96 09/25/21 01:35 FiO2 Intake & Output 09/24/21 09/25/21 09/25/21 18:59 06:59 18:59 Intake Total 800 950 Output Total 775 850 Balance 25 100 Intake: Intake, IV Titration 300 700 Amount Sodium Chloride 0.9% 1, 300 700 000 ml @ 100 mls/hr IV . Q10H [facility] Rx#:[id number] Oral 500 250 Output: Urine 775 850 Other: Voiding Method Urinal Urinal Urinal - Exam Abdomen: Soft, nontender, nondistended - Labs CBC & Chem 7: 09/24/21 05:33 09/24/21 22:53 Labs: Abnormal Lab Results - Last 24 Hours (Table) 09/24/21 09/24/21 Range/Units 17:44 22:53 Sodium 127 L 129 L (137-145) mmol/L Assessment and Plan (1) Duodenal stricture Narrative/Plan: Patient seems to be doing well at this time. Being transferred out of the ICU. Await today's upper GI. Continue antiacids. Current Visit: No Status: Acute Code(s): K31.5 - OBSTRUCTION OF DUODENUM SNOMED Code(s): 82395118
--- NOTE | 2021-09-25 12:33 | P.PN ---
Subjective Progress Note Date: 09/25/21 Principal diagnosis: Hypovolemic hyponatremia 68-year-old male patient is coming in with generalized weakness and the patient is known to have intractable nausea and emesis and diarrhea that has been worked up extensively in the past without any clear diagnosis. The patient came into the hospital because of generalized weakness and dizziness and the patient was found to be hyponatremic and this was a hypochloremic hyponatremia with a sodium level of 114. This has occurred to the patient the past and this is mainly due to intravascular volume depletion and dietary diminished intake and volume loss. The patient has not been eating much over the past several days. His been taken Lasix. No hypotension. No seizure activity. No altered mentation. He was given normal saline at the rate of 100 an hour and a sodium level is up to 118. No other complaints otherwise for now. Reevaluated today on 09/23/21, patient remains in the ICU, he had to be placed on Precedex last night because of extreme agitation, his hyponatremia is correcting nicely. His sodium is 126 today. His initial presentation sodium was 114. Patient is relatively asymptomatic, he seems to be very calm, not agitated, hence I discontinued his Precedex. Patient is on room air, does not seem to be in any distress. Patient is known to have history of chronic nausea and vomiting and chronic duodenal strictures. Labs were all reviewed today, and he is on 0.9 normal saline at 50 mL per hour. Reevaluated today on 09/24/21, patient is still in the ICU, basically asymptomatic except for intermittent episodes of nausea but no vomiting. Patient is calm, not in any distress, he is actually on room air. O2 saturations 97%, he is hemodynamically stable, blood pressure is 105/60. CBC is relatively normal electrolytes showed improvement in his sodium up to 129. Renal profile is normal. Remains on IV fluid at 50 mL per hour in the form of 0.9 normal saline Reevaluated today on 09/25/21, patient is doing well, he is an overflow in the ICU. Remains on IV fluid 0.9 normal saline at 100 mL per hour. Sodium is 129 today. No further episodes of vomiting. No further episodes of nausea, patient was seen by Dr. bird and he is arranging for the patient to have an upper GI study concerned about his previous duodenal findings. At this point the patient is hemodynamically stable, he is doing great, and I plan to transfer him to a regular medical floor once a bed is available. Patient does not need to be in the ICU at present Objective - Vital Signs Vital signs: Vital Signs Temp 98.5 F 09/25/21 01:35 Pulse 54 L 09/25/21 01:35 Resp 19 09/25/21 01:35 BP 95/53 09/25/21 01:35 Pulse Ox 96 09/25/21 01:35 FiO2 Intake & Output 09/24/21 09/25/21 09/25/21 18:59 06:59 18:59 Intake Total 800 950 Output Total 775 850 Balance 25 100 Intake: Intake, IV Titration 300 700 Amount Sodium Chloride 0.9% 1, 300 700 000 ml @ 100 mls/hr IV . Q10H [facility] Rx#:[id number] Oral 500 250 Output: Urine 775 850 Other: Voiding Method Urinal Urinal Urinal - Exam Physical Exam: Revealed a 70-year-old white male in no distress on room air. Head: Atraumatic, normocephalic. HEENT:[Neck is supple.] [No neck masses.] [No thyromegaly.] [No JVD.] Chest: [Clear throughout, no crackles, no rhonchi, no wheezes.] Cardiac Exam: [Normal S1 and S2, no S3 gallop, no murmur.] Abdomen: [Soft, nontender, no megaly, no rebound, no guarding, normal bowel sounds.] Extremities: [No clubbing, no edema, no cyanosis.] Neurological Exam: [No focal neurologic deficit.] Alert oriented 3. Psychiatric: Normal mood affect and normal mental status examination. Skin: No rashes. - Labs CBC & Chem 7: 09/24/21 05:33 09/24/21 22:53 Labs: Abnormal Lab Results - Last 24 Hours (Table) 09/24/21 09/24/21 Range/Units 17:44 22:53 Sodium 127 L 129 L (137-145) mmol/L Assessment and Plan Assessment: Acute hypovolemic hyponatremia Intractable nausea and vomiting, chronic Coronary arteriosclerosis and previous stent placement Benign essential hypertension Recurrent depression Dyslipidemia History of SVT Chronic anemia History of esophagitis and hiatal hernia chronic back pain History of exposure to agent orange. Recommendation: Continue IV fluids Continue antiemetic medications Agree with upper GI. Transferred to regular medical floor. We will follow as needed Time with Patient: Less than 30
[2021-09-25] MEDS: BUTALB/APAP/CAFF 50-325-40MG TAB PO PRN ×2 (13:54→19:09)
--- NOTE | 2021-09-25 15:10 | FL ---
EXAMINATION TYPE: FL UGI w KUB DATE OF EXAM: 09/25/2021 COMPARISON: None HISTORY: Intermittent vomiting history of duodenal stricture TECHNIQUE: Air contrast technique is utilized to evaluate the upper GI system. FINDINGS: Fluoroscopy time: 1 minute 33 seconds. Images: [employer] view was obtained and felt to be noncontributory. Scoliosis is noted in the lumbar spine presen t previously. Esophagus dilates to normal caliber has a normal contour to the gastroesophageal junction. Gastroesop hageal junction opens to normal caliber. There is incomplete stripping of the esophageal bolus horizo ntal drinking position. Multiple tertiary contractions are evident within the distal esophagus. Note is made of reflux extending to the lateral ventricles during this exam. Fundus body and antrum of the stomach visualized are normal. No intraluminal or extramural defects ar e evident. Barium readily empties into the normally positioned duodenal cap and sweep. Focal area of stenosis is not identified. Some mild narrowing within the proximal second portion the duodenum may be present. IMPRESSION: 1. No significant stenosis proximal duodenum is visualized. 2. Presbyesophagus. 3. Gastroesophageal Reflux
--- NOTE | 2021-09-25 19:37 | P.PN ---
Subjective From records: This 70-year-old gentleman, new to my practice, underlying history of CAD, SVT, chronic left jaw mass, benign, being followed by an ENT, since he was young. History of GERD, follows with Dr. Rico,, he has been on sodium tablets 1 g twice a day for several months, and was admitted, secondary to weakness and dizziness lightheadedness, and was found to have severe hyponatremia, with a sodium level of 114. Patient has four-day diarrhea, nausea vomiting, diarrhea is watery, without any blood, at least 4 or more per day. Patient has been taking Lasix, there is no hypotension, no seizures, no chest pain, no palpitations, Emergency room he was bolused 1 L of 0.9, for the sodium of 114, creatinine 0.5, glucose 107, serum osmolality 239 chest x-ray, shows no acute pulmonary processes, patient's admitted to ICU, with IV fluids running at 100 mL an hour 0.9, with consult to nephrology and ICU, for critical hyponatria Subjective: This is first day taking care of the patient 09/25/2021 This is a pleasant 70 years old male with multiple medical problems presents with hyponatremia significantly low at 114 suspected secondary to hypovolemia responded to IV fluids up to 129 went to 127 despite being on IV fluids and accompaniment of SIADH is suspected and patient and he received a dose samsca, under nephrology team recommendation and we will keep monitoring sodium. He remains on normal saline 100 mL/h. Patient clinically looks improving gradually and slowly. He is hemodynamically stable. MAPS was checked today and he is on gabapentin and Valium. DC lorazepam. Objective - Vital Signs Vital signs: Vital Signs Temp 98.5 F 09/25/21 01:35 Pulse 54 L 09/25/21 01:35 Resp 19 09/25/21 01:35 BP 95/53 09/25/21 01:35 Pulse Ox 96 09/25/21 01:35 FiO2 Intake & Output 09/24/21 09/25/21 09/25/21 18:59 06:59 18:59 Intake Total 800 950 Output Total 775 850 Balance 25 100 Intake: Intake, IV Titration 300 700 Amount Sodium Chloride 0.9% 1, 300 700 000 ml @ 100 mls/hr IV . Q10H [facility] Rx#:[id number] Oral 500 250 Output: Urine 775 850 Other: Voiding Method Urinal Urinal Urinal - Exam GENERAL: The patient is alert and oriented x3, not in any acute distress. Well developed, well nourished. HEENT: Pupils are round and equally reacting to light. EOMI. No scleral icterus. No conjunctival pallor. Normocephalic, atraumatic. No pharyngeal erythema. No thyromegaly. CARDIOVASCULAR: S1 and S2 present. No murmurs, rubs, or gallops. PULMONARY: Chest is clear to auscultation, no wheezing or crackles. ABDOMEN: Soft, nontender, nondistended, normoactive bowel sounds. No palpable organomegaly. MUSCULOSKELETAL: No joint swelling or deformity. EXTREMITIES: No cyanosis, clubbing, or pedal edema. NEUROLOGICAL: Gross neurological examination did not reveal any focal deficits. SKIN: No rashes. no petechiae. - Labs CBC & Chem 7: 09/24/21 05:33 09/24/21 22:53 Labs: Abnormal Lab Results - Last 24 Hours (Table) 09/24/21 09/24/21 Range/Units 17:44 22:53 Sodium 127 L 129 L (137-145) mmol/L Assessment and Plan Assessment: Hyponatremia, hypovolemic, with complaints of SIADH Recurrent nausea and vomiting with history of duodenal stricture Hypertension Hyperlipidemia History of coronary artery disease Plan: This is a pleasant 68 years old male with hyponatremia Continue with normal saline at 100 mL per hour Status post [facility] Follow-up sodium level Nephrology team following the case. Pulmonary and surgery team Labs and medication were reviewed.. Continue same treatment. Continue with symptomatic treatment. Resume home medication. Monitor lytes and vitals. DVT and GI prophylaxis. Further recommendations as per clinical course of the patient DVT prophylaxis: Subcutaneous heparin GI Prophylaxis: Pepcid PT/OT: Pending Prognosis is guarded
[2021-09-25] MEDS: ESCITALOPRAM 10 MG TAB PO SCH (20:11)
[2021-09-25] MEDS: AMITRIPTYLINE HCL 25 MG TAB PO SCH (20:12)
[2021-09-25] MEDS: LATANOPROST 0.005% OPHTH DROPS 2.5 ML BTL BOTH EYES SCH (20:14)
[2021-09-25] MEDS: diazePAM 5 MG TAB PO PRN (22:55)
[2021-09-25] MEDS: NON FORMULARY DRUG (Simvastatin 40 MG Tab) PO SCH (22:59)
[2021-09-26] MEDS: BUTALB/APAP/CAFF 50-325-40MG TAB PO PRN ×3 (04:48→20:45)
[2021-09-26] MEDS: HYDROmorphone 0.5 MG/0.5 ML SYRINGE IVP PRN (04:50)
[2021-09-26] MEDS: SODIUM CHLORIDE 0.9% 1,000 ML IV SCH (05:25)
[2021-09-26 06:26] LABS: African American GFR (CKD) >90 (>60 ml/min/1.73 sqM); Anion Gap 6 mmol/L; Blood Urea Nitrogen 5 mg/dL (9-20); Calcium 8.4 mg/dL (8.4-10.2); Carbon Dioxide 25 mmol/L (22-30); Chloride 105 mmol/L (98-107); Glucose 101 mg/dL (74-99); Non-African American GFR(CKD) >90 (>60 ml/min/1.73 sqM); Sodium 136 mmol/L (137-145)
[2021-09-26 06:29] LABS: Potassium 4.8 mmol/L (3.5-5.1)
[2021-09-26 06:49] LABS: HCT 36.4 % (39.0-53.0); HGB 11.8 gm/dL (13.0-17.5); MCH 31.1 pg (25.0-35.0); MCHC 32.3 g/dL (31.0-37.0); MCV 96.3 fL (80.0-100.0); Mean Platelet Volume 6.4; Platelet Count 248 k/uL (150-450); RBC 3.78 m/uL (4.30-5.90); RDW 12.4 % (11.5-15.5); WBC 3.6 k/uL (3.8-10.6)
[2021-09-26 08:25] LABS: Eosinophils # (M) 0.18 k/uL (0-0.7); Lymphocytes # (M) 1.84 k/uL (1.0-4.8); Monocytes # (M) 0.65 k/uL (0-1.0); Myelocytes # (M) 0.04 k/uL (0); Myelocytes % 1 %; Neutrophils # (M) 0.94 k/uL (1.3-7.7); Neutrophils % (M) 26 %; Nucleated Red Blood Cells 0 /100 WBC (0-0); Total Cells Counted 200
[2021-09-26] MEDS: GABAPENTIN 400 MG CAP PO SCH ×3 (08:53→20:45)
[2021-09-26] MEDS: CHOLECALCIFEROL 25 MCG (1000 IU) TABLET PO SCH (08:53)
[2021-09-26] MEDS: PANTOPRAZOLE 40 MG TABLET PO SCH (08:53)
[2021-09-26] MEDS: POTASSIUM CHLORIDE ER 20 MEQ TAB.ER PO SCH (08:53)
[2021-09-26] MEDS: METOPROLOL TARTRATE 25 MG TAB PO SCH ×2 (08:54→20:45)
[2021-09-26] MEDS: LOSARTAN 50 MG TAB PO SCH (08:54)
[2021-09-26] MEDS: DICYCLOMINE 10 MG CAP PO SCH ×3 (08:54→20:45)
[2021-09-26] MEDS: ENOXAPARIN 40 MG/0.4 ML SYRINGE SQ SCH (08:55)
[2021-09-26] MEDS: BRIMONIDINE TARTRATE 0.2% DROPS 5 ML BTL BOTH EYES SCH ×2 (08:57→20:48)
[2021-09-26] MEDS: SODIUM CHLORIDE TAB 1 GM TAB PO SCH (09:55)
--- NOTE | 2021-09-26 10:24 | P.PN ---
Subjective Patient is seen in follow-up for hyponatremia. Sodium level 136 today. He is tolerating oral diet. No vomiting or diarrhea. GFR at baseline. Vital signs are stable. General: Awake. No acute distress. HEENT: Head exam is unremarkable. LUNGS: Breath sounds decreased. HEART: Rate and Rhythm are regular. ABDOMEN: Soft, no distention. EXTREMITITES: No edema. Objective - Vital Signs Vital signs: Vital Signs Temp 97.8 F 09/26/21 05:49 Pulse 64 09/26/21 05:49 Resp 16 09/26/21 05:49 BP 148/76 09/26/21 05:49 Pulse Ox 97 09/26/21 05:49 FiO2 Intake & Output 09/25/21 09/26/21 09/26/21 18:59 06:59 18:59 Intake Total 590 Output Total 300 Balance 290 Intake: Oral 590 Output: Urine 300 Other: Voiding Method Urinal Urinal # Voids 2 - Labs CBC & Chem 7: 09/26/21 05:47 09/26/21 05:47 Labs: Abnormal Lab Results - Last 24 Hours (Table) 09/25/21 09/26/21 09/26/21 Range/Units 22:34 05:47 05:47 WBC 3.6 L (3.8-10.6) k/uL RBC 3.78 L (4.30-5.90) m/uL Hgb 11.8 L (13.0-17.5) gm/dL Hct 36.4 L (39.0-53.0) % Neutrophils # (Manual) 0.94 L (1.3-7.7) k/uL Myelocytes # (Manual) 0.04 H (0) k/uL Sodium 134 L 136 L (137-145) mmol/L BUN 5 L (9-20) mg/dL Creatinine 0.59 L (0.66-1.25) mg/dL Glucose 101 H (74-99) mg/dL Assessment and Plan Plan: Assessment: 1. Hypovolemic hyponatremia improved with IV hydration. Sodium level 136 today. Status post [facility] this admission. 2. Nausea vomiting and diarrhea with history of duodenal stricture. Surgery following. Upper GI showed presbyesophagus with no stenosis and duodenum. Tolerating oral intake. 3. History of coronary artery disease. Plan: Hep-Lock IV fluids. Maintain fluid restriction. Encourage oral intake. Decrease sodium chloride tabs to once daily. Stop potassium supplementation. Repeat labs in the morning.
[2021-09-26] MEDS: NON FORMULARY DRUG (Tadalafil [Tadalafil] 10 MG Tablet) PO SCH (13:09)
--- NOTE | 2021-09-26 16:52 | P.PN ---
Subjective Progress Note Date: 09/26/21 CHIEF COMPLAINT: Nausea vomiting HISTORY OF PRESENT ILLNESS: The patient is a 70-year-old male who presented to the hospital nausea and vomiting. Patient has history of duodenal stricture. Family is at bedside. Patient tolerated lunch. ROS: No reports of nausea and vomiting. No fevers or chills. No new chest pain. No productive sputum PHYSICAL EXAM: VITAL SIGNS: Reviewed CONSTITUTIONAL: Well developed and in no acute distress. EYES: Conjuctivae without sclera icterus. Extraocular movements grossly intact. HEAD, EARS, NOSE, THROAT: Moist buccal mucosa. Head is atraumatic, normocephalic. Hears conversational speech. No nasal drainage. RESPIRATORY: Non-labored respirations and equal bilateral excursions. CARDIOVASCULAR: Palpable 2+ radial pulses. ABDOMEN: No peritonitis. MUSCULOSKELETAL: No gross deformity of the lower extremities noted. No clubbing. No cyanosis. SKIN: Good skin turgor. Well perfused. NEUROLOGIC: Cranial nerves II through XII grossly intact. No focal or l ateralizing signs. PSYCH: Appropriate affect. Alert and oriented to person, place and time. CLINICAL LABS: Reviewed. Hemoglobin of 11.3-11.8. WBC normal 3.6. STUDIES: Upper GI independently reviewed demonstrating no obstruction. REPORT: Upper GI report also confirms no obstruction. ASSESSMENT: 1. Nausea vomiting with duodenal stricture PLAN: 1. Clinically he stable from surgical standpoint for discharge. 2. Diet as tolerated. Objective - Vital Signs Vital signs: Vital Signs Temp 97.4 F L 09/26/21 11:31 Pulse 55 L 09/26/21 11:31 Resp 16 09/26/21 11:31 BP 134/74 09/26/21 11:31 Pulse Ox 96 09/26/21 11:31 FiO2 Intake & Output 09/25/21 09/26/21 09/26/21 18:59 06:59 18:59 Intake Total 590 500 Output Total 300 Balance 290 500 Intake: Oral 590 500 Output: Urine 300 Other: Voiding Method Urinal Urinal Urinal # Voids 2 - Labs CBC & Chem 7: 09/26/21 05:47 09/26/21 05:47 Labs: Abnormal Lab Results - Last 24 Hours (Table) 09/25/21 09/26/21 09/26/21 Range/Units 22:34 05:47 05:47 WBC 3.6 L (3.8-10.6) k/uL RBC 3.78 L (4.30-5.90) m/uL Hgb 11.8 L (13.0-17.5) gm/dL Hct 36.4 L (39.0-53.0) % Neutrophils # (Manual) 0.94 L (1.3-7.7) k/uL Myelocytes # (Manual) 0.04 H (0) k/uL Sodium 134 L 136 L (137-145) mmol/L BUN 5 L (9-20) mg/dL Creatinine 0.59 L (0.66-1.25) mg/dL Glucose 101 H (74-99) mg/dL
[2021-09-26] MEDS: diazePAM 5 MG TAB PO PRN (20:45)
[2021-09-26] MEDS: LATANOPROST 0.005% OPHTH DROPS 2.5 ML BTL BOTH EYES SCH (20:48)
[2021-09-26] MEDS: NON FORMULARY DRUG (Simvastatin 40 MG Tab) PO SCH (20:51)
[2021-09-26] MEDS: AMITRIPTYLINE HCL 25 MG TAB PO SCH (21:18)
[2021-09-26] MEDS: ESCITALOPRAM 10 MG TAB PO SCH (21:18)
[2021-09-27] MEDS: BUTALB/APAP/CAFF 50-325-40MG TAB PO PRN (07:14)
[2021-09-27 07:26] VITALS: BP 168/90; TEMP 98.8
[2021-09-27] MEDS: METOPROLOL TARTRATE 25 MG TAB PO SCH (08:18)
[2021-09-27] MEDS: CHOLECALCIFEROL 25 MCG (1000 IU) TABLET PO SCH (08:18)
[2021-09-27] MEDS: GABAPENTIN 400 MG CAP PO SCH (08:18)
[2021-09-27] MEDS: PANTOPRAZOLE 40 MG TABLET PO SCH (08:18)
[2021-09-27] MEDS: LOSARTAN 50 MG TAB PO SCH (08:18)
[2021-09-27] MEDS: DICYCLOMINE 10 MG CAP PO SCH (08:18)
[2021-09-27] MEDS: ENOXAPARIN 40 MG/0.4 ML SYRINGE SQ SCH (08:18)
[2021-09-27] MEDS: BRIMONIDINE TARTRATE 0.2% DROPS 5 ML BTL BOTH EYES SCH (08:19)
[2021-09-27] MEDS ORDERED: SODIUM CHLORIDE TAB 1 GM TAB PO SCH (09:00)
[2021-09-27 09:12] VITALS: PULSE 67; RESP 17
[2021-09-27 10:18] LABS: African American GFR (CKD) 109.3 (60.0-200.0); Anion Gap 8.3 mmol/L (10.00-18.00); Blood Urea Nitrogen 8.4 mg/dL (9.0-27.0); Calcium 8.7 mg/dL (8.7-10.3); Carbon Dioxide 26.7 mmol/L (20.0-27.5); Magnesium 1.9 mg/dL (1.5-2.4); Non-African American GFR(CKD) 94.3 (60.0-200.0); Potassium 4.1 mmol/L (3.5-5.5)
--- NOTE | 2021-09-27 11:01 | P.PN ---
Subjective Patient is seen for follow-up for hyponatremia. Status post IV fluids initially. Currently off of IV fluids and status post 1 dose of Samsca. Sodium today is 138 No significant complaints today. Objective - Vital Signs Vital signs: Vital Signs Temp 98.8 F 09/27/21 07:25 Pulse 67 09/27/21 08:00 Resp 17 09/27/21 08:00 BP 168/90 09/27/21 07:25 Pulse Ox 96 09/27/21 07:25 FiO2 Intake & Output 09/26/21 09/27/21 09/27/21 18:59 06:59 18:59 Intake Total 720 60 Balance 720 60 Intake: Oral 720 60 Other: Voiding Method Urinal Toilet Toilet Urinal Urinal # Voids 2 # Bowel Movements 1 - Exam Comfortable, no acute distress Answering questions appropriately Examination of the heart S1 and S2 Examination lungs bilateral breath sounds are heard Abdomen is soft nontender Examination of the lower extremity shows no evidence of edema - Labs CBC & Chem 7: 09/26/21 05:47 09/27/21 05:55 Labs: Abnormal Lab Results - Last 24 Hours (Table) 09/27/21 Range/Units 05:55 Anion Gap 8.30 L (10.00-18.00) mmol/L BUN 8.4 L (9.0-27.0) mg/dL Assessment and Plan Assessment: 1. Hypovolemic hyponatremia with underlying history of chronic hyponatremia. Improved with saline infusion initially. Currently off of IV fluids and status post 1 dose of Samsca. Serum sodium up to 138 today 2. Hypovolemia, status post IV fluids 3. Nausea, vomiting and diarrhea, currently improved. No fever noted. 4. Coronary artery disease with history of coronary stents Plan: Okay for discharge Hold sodium chloride tablet for 2 days and then resume on Thursday as 1 g daily Follow-up in 1-2 weeks Check sodium in 2-3 days post discharge
--- NOTE | 2021-09-27 11:01 | P.PN ---
Subjective From records: This 70-year-old gentleman, new to my practice, underlying history of CAD, SVT, chronic left jaw mass, benign, being followed by an ENT, since he was young. History of GERD, follows with Dr. Rico,, he has been on sodium tablets 1 g twice a day for several months, and was admitted, secondary to weakness and dizziness lightheadedness, and was found to have severe hyponatremia, with a sodium level of 114. Patient has four-day diarrhea, nausea vomiting, diarrhea is watery, without any blood, at least 4 or more per day. Patient has been taking Lasix, there is no hypotension, no seizures, no chest pain, no palpitations, Emergency room he was bolused 1 L of 0.9, for the sodium of 114, creatinine 0.5, glucose 107, serum osmolality 239 chest x-ray, shows no acute pulmonary processes, patient's admitted to ICU, with IV fluids running at 100 mL an hour 0.9, with consult to nephrology and ICU, for critical hyponatria Subjective: This is first day taking care of the patient 09/25/2021 This is a pleasant 70 years old male with multiple medical problems presents with hyponatremia significantly low at 114 suspected secondary to hypovolemia responded to IV fluids up to 129 went to 127 despite being on IV fluids and accompaniment of SIADH is suspected and patient and he received a dose samsca, under nephrology team recommendation and we will keep monitoring sodium. He remains on normal saline 100 mL/h. Patient clinically looks improving gradually and slowly. He is hemodynamically stable. MAPS was checked today and he is on gabapentin and Valium. DC lorazepam. 09/26/2021 pt is improving clinically he has no vomiting and tolerated diet well, has 2-3 regular bowel movement pt remains hemodynamically stable labs are reviewed we will need to keep monitor sodium tomorrow surgery team already is going to clear pt for discharge Objective - Vital Signs Vital signs: Vital Signs Temp 97.8 F 09/26/21 05:49 Pulse 64 09/26/21 05:49 Resp 16 09/26/21 05:49 BP 148/76 09/26/21 05:49 Pulse Ox 97 09/26/21 05:49 FiO2 Intake & Output 09/25/21 09/26/21 09/26/21 18:59 06:59 18:59 Intake Total 590 Output Total 300 Balance 290 Intake: Oral 590 Output: Urine 300 Other: Voiding Method Urinal Urinal # Voids 2 - Exam GENERAL: The patient is alert and oriented x3, not in any acute distress. Well developed, well nourished. HEENT: Pupils are round and equally reacting to light. EOMI. No scleral icterus. No conjunctival pallor. Normocephalic, atraumatic. No pharyngeal erythema. No thyromegaly. CARDIOVASCULAR: S1 and S2 present. No murmurs, rubs, or gallops. PULMONARY: Chest is clear to auscultation, no wheezing or crackles. ABDOMEN: Soft, nontender, nondistended, normoactive bowel sounds. No palpable organomegaly. MUSCULOSKELETAL: No joint swelling or deformity. EXTREMITIES: No cyanosis, clubbing, or pedal edema. NEUROLOGICAL: Gross neurological examination did not reveal any focal deficits. SKIN: No rashes. no petechiae. - Labs CBC & Chem 7: 09/26/21 05:47 09/26/21 05:47 Labs: Abnormal Lab Results - Last 24 Hours (Table) 09/25/21 09/26/21 09/26/21 Range/Units 22:34 05:47 05:47 WBC 3.6 L (3.8-10.6) k/uL RBC 3.78 L (4.30-5.90) m/uL Hgb 11.8 L (13.0-17.5) gm/dL Hct 36.4 L (39.0-53.0) % Neutrophils # (Manual) 0.94 L (1.3-7.7) k/uL Myelocytes # (Manual) 0.04 H (0) k/uL Sodium 134 L 136 L (137-145) mmol/L BUN 5 L (9-20) mg/dL Creatinine 0.59 L (0.66-1.25) mg/dL Glucose 101 H (74-99) mg/dL Assessment and Plan Assessment: Hyponatremia, hypovolemic, with complaints of SIADH Recurrent nausea and vomiting with history of duodenal stricture Hypertension Hyperlipidemia History of coronary artery disease Plan: This is a pleasant 68 years old male with hyponatremia Continue with normal saline at 100 mL per hour Status post [facility] Follow-up sodium level Nephrology team following the case. Pulmonary and surgery team Labs and medication were reviewed.. Continue same treatment. Continue with symptomatic treatment. Resume home medication. Monitor lytes and vitals. DVT and GI prophylaxis. Further recommendations as per clinical course of the patient DVT prophylaxis: Subcutaneous heparin GI Prophylaxis: Pepcid PT/OT: Pending Prognosis is guarded
--- NOTE | 2021-09-27 22:54 | P.DS ---
Providers Date of admission: 09/21/21 20:20 Attending physician: Jocelin Khan Consults: 09/21/21 23:15 Consult Physician Urgent Consulting Provider: Nayely Collado Consult Reason/Comments: Hyponatremia, acute on chronic Do you want consulting provider notified?: Yes, Notify in am 09/21/21 23:16 Consult Physician Routine Consulting Provider: Gage Eckert Consult Reason/Comments: ICU, Hyponatremia (sodium 114) Do you want consulting provider notified?: Yes 09/24/21 12:42 Consult Physician Stat Consulting Provider: Isiah Marcus Consult Reason/Comments: N/V, hyponatremia Do you want consulting provider notified?: Already Contacted Primary care physician: Jocelin Khan [facility] Course: Diagnoses: Hyponatremia, hypovolemic, with components of SIADH, sodium back to normal slowly upon discharge Recurrent nausea and vomiting with history of duodenal stricture . Resolved and cleared by surgeon for discharge. Patient tolerating diet well Hypertension Hyperlipidemia History of coronary artery disease Hospital course: This 70-year-old gentleman, new to my practice, underlying history of CAD, SVT, chronic left jaw mass, benign, being followed by an ENT, since he was young. History of GERD, follows with Dr. Rico,, he has been on sodium tablets 1 g twice a day for several months, and was admitted, secondary to weakness and dizziness lightheadedness, and was found to have severe hyponatremia, with a sodium level of 114. Patient has four-day diarrhea, nausea vomiting, diarrhea is watery, without any blood, at least 4 or more per day. Patient has been seen and evaluated by setter molding and coremaking machines, intensivists were hemostatic closely in ICU before he was stabilized transferred to the general medical floor. Also surgeon evaluated the patient for possible duodenal stricture, patient already follows with Dr. Subramanian from GI and Dr. Marcus from surgery for his duodenal lesion as an outpatient. His sodium improved yesterday was 136 and today 138, patient is asymptomatic on the day of discharge. He denies chest pain or dyspnea. No abdominal pain or vomiting or diarrhea. No fever. No urinary complaints. Patient was eager to go home today, was at bedside. Patient was cleared for discharge by all consultants including surgery, and nephrology. Problems and management plan were discussed with the patient and he verbalized understanding and acceptance Patient was found stable and can be discharged home however he needs follow-up as an outpatient. Patient was instructed to follow up with PCP Dr. Khan within one week and patient agrees Patient was instructed to follow up with setter molding and coremaking machines Dr. Collado in [address] Subramanian in [address] andino in 1-2 weeks and patient agrees to call and make his own appointment Physical exam Gen: patient is a AAOx3, no distress CVS: S1-S2, RRR, no murmur Lungs: B/L CTA, no wheezing Abdomen: soft, no distention, no tenderness, positive bowel sounds Extremity: no leg edema or induration Time spent more than 35 minutes Patient Condition at Discharge: Serious Plan - Discharge Summary Discharge Rx Participant: No New Discharge Prescriptions: New Pantoprazole [Protonix] 40 mg PO AC-BRKFST #30 tab Continue Simvastatin [Zocor] 40 mg PO HS Dicyclomine [Bentyl] 10 mg PO TID Metoprolol Tartrate [Lopressor] 25 mg PO BID Ondansetron [Zofran ODT] 4 mg PO BID PRN PRN Reason: Nausea Losartan Potassium 100 mg PO DAILY Latanoprost [Xalatan 0.005%] 1 drop BOTH EYES HS Escitalopram [Lexapro] 10 mg PO HS Butalb/APAP/Caff 50-325-40Mg [Fioricet 50-325-40] 2 tab PO Q6H PRN MDD 3caps/24hr PRN Reason: Migraine Headache Cholecalciferol [Vitamin D3 (25 Mcg = 1000 Iu)] 50 mcg PO DAILY Brimonidine Tartrate [Alphagan P 0.2% Ophth Soln] 1 drop BOTH EYES BID Testosterone Cypionate [Depo-Testosterone] 100 mg IM Q14D Acetaminophen Tab [Tylenol] 650 mg PO Q4H PRN PRN Reason: Pain Clobetasol Propionate/Emoll [Clobetasol Emulsion 0.05% Foam] 1 applic TOPICAL DAILY PRN PRN Reason: Skin Irritation Ondansetron [Zofran] 4 mg PO TID PRN PRN Reason: Nausea And Vomiting Metoclopramide HCl [Reglan] 10 mg PO TID Ketoconazole 2% Shampoo [Nizoral] 1 applic TOPICAL Q72H PRN PRN Reason: Skin Irritation Diclofenac Sodium Gel [Voltaren Gel] 2 - 4 gm TOPICAL QID PRN PRN Reason: Pain Amitriptyline HCl [Elavil] 12.5 mg PO HS Gabapentin 800 mg PO TID Changed Sodium Chloride Tab 1 gm PO DAILY #30 tab Discontinued Potassium Chloride ER [K-Dur 20] 20 meq PO DAILY Furosemide [Lasix] 20 mg PO DAILY No Action diazePAM [Valium] 5 mg PO HS PRN PRN Reason: INSOMNIA/ANXIETY tadalafiL 10 mg PO DAILY@1300 Discharge Medication List Simvastatin [Zocor] 40 mg PO HS 07/12/13 [History] Dicyclomine [Bentyl] 10 mg PO TID 06/04/17 [History] Latanoprost [Xalatan 0.005%] 1 drop BOTH EYES HS 09/20/18 [History] Losartan Potassium 100 mg PO DAILY 09/20/18 [History] Metoprolol Tartrate [Lopressor] 25 mg PO BID 09/20/18 [History] Ondansetron [Zofran ODT] 4 mg PO BID PRN 09/20/18 [History] Butalb/APAP/Caff 50-325-40Mg [Fioricet 50-325-40] 2 tab PO Q6H PRN MDD 3caps/24hr 10/06/18 [History] Escitalopram [Lexapro] 10 mg PO HS 10/06/18 [History] Brimonidine Tartrate [Alphagan P 0.2% Ophth Soln] 1 drop BOTH EYES BID 12/25/19 [History] Cholecalciferol [Vitamin D3 (25 Mcg = 1000 Iu)] 50 mcg PO DAILY 12/25/19 [History] Testosterone Cypionate [Depo-Testosterone] 100 mg IM Q14D 12/25/19 [History] diazePAM [Valium] 5 mg PO HS PRN 12/25/19 [History] Acetaminophen Tab [Tylenol] 650 mg PO Q4H PRN 12/28/19 [History] Metoclopramide HCl [Reglan] 10 mg PO TID 05/25/20 [History] Amitriptyline HCl [Elavil] 12.5 mg PO HS 09/21/21 [History] Clobetasol Propionate/Emoll [Clobetasol Emulsion 0.05% Foam] 1 applic TOPICAL DAILY PRN 09/21/21 [History] Diclofenac Sodium Gel [Voltaren Gel] 2 - 4 gm TOPICAL QID PRN 09/21/21 [History] Gabapentin 800 mg PO TID 09/21/21 [History] Ketoconazole 2% Shampoo [Nizoral] 1 applic TOPICAL Q72H PRN 09/21/21 [History] Ondansetron [Zofran] 4 mg PO TID PRN 09/21/21 [History] tadalafiL 10 mg PO DAILY@1300 09/21/21 [History] Pantoprazole [Protonix] 40 mg PO AC-BRKFST #30 tab 09/27/21 [Rx] Sodium Chloride Tab 1 gm PO DAILY #30 tab 09/27/21 [Rx] Follow up Appointment(s)/Referral(s): Isiah Marcus MD [Medical Doctor] - 10/02/21 3:00 pm Nayely Collado MD [STAFF PHYSICIAN] - 10/18/21 9:40 am Jocelin Khan MD [Primary Care Provider] - 10/01/21 8:45 am Leyla Subramanian MD [STAFF PHYSICIAN] - 2 Weeks (The office is closed please call and make follow up appointment.) Ambulatory/Diagnostic Orders: Complete Blood Count w/diff [LAB.AMB] Time Frame: 3 Days, Location: None Selected Patient Instructions/Handouts: Pantoprazole (By mouth), Sodium Chloride (By mouth), Heart Healthy Diet (ED) Activity/Diet/Wound Care/Special Instructions: heart healthy diet activity is restricted till you see your doctor on discharge home, we recommend to hold your sodium chloride tablet for 2 days and then resume on Thursday as 1 g daily Discharge Disposition: HOME SELF-CARE
== END 2021-09-27 12:18 | disposition home or self-care (01) | DRG 644 ==
LOC: EC 17:41 → 2SICU 20:20 → 5NMEDONC 09-25 16:57
PROVIDERS: ADMIT Family Medicine; ATTEND Family Medicine
DX: E22.2 Syndrome of inappropriate secretion of antidiuretic hormone (principal); F33.9 Major depressive disorder, recurrent, unspecified; E86.0 Dehydration; E78.5 Hyperlipidemia, unspecified; E86.1 Hypovolemia; E87.6 Hypokalemia; E87.8 Other disorders of electrolyte and fluid balance, not elsewhere classified; F34.1 Dysthymic disorder; F41.9 Anxiety disorder, unspecified; I25.10 Atherosclerotic heart disease of native coronary artery without angina pectoris; I25.2 Old myocardial infarction; K21.9 Gastro-esophageal reflux disease without esophagitis; K22.89 Other specified disease of esophagus; D64.9 Anemia, unspecified; M54.9 Dorsalgia, unspecified; Z57.4 Occupational exposure to toxic agents in agriculture; M50.30 Other cervical disc degeneration, unspecified cervical region; H40.9 Unspecified glaucoma; G62.9 Polyneuropathy, unspecified; G89.29 Other chronic pain; K52.9 Noninfective gastroenteritis and colitis, unspecified; I10 Essential (primary) hypertension; Z87.11 Personal history of peptic ulcer disease; Z87.19 Personal history of other diseases of the digestive system; Z79.899 Other long term (current) drug therapy; Z80.0 Family history of malignant neoplasm of digestive organs; Z80.8 Family history of malignant neoplasm of other organs or systems; Z82.49 Family history of ischemic heart disease and other diseases of the circulatory system; Z83.3 Family history of diabetes mellitus; Z87.891 Personal history of nicotine dependence; Z95.5 Presence of coronary angioplasty implant and graft; Z95.810 Presence of automatic (implantable) cardiac defibrillator
CPT/HCPCS: 36415; 71046; 74240; 80048; 80051; 80053; 81003; 83735; 83930; 83935; 84100; 84295; 84484; 85025; 85027; 85610; 87635; 93005; 96365; 96366; 96375; 99285

== ENCOUNTER → 2022-06-25 | Outpatient (CLI) | payer MEDICARE ==
--- NOTE | 2022-06-25 20:18 | CT ---
EXAMINATION TYPE: CT sinus w con CT DLP: 665 mGycm, Automated exposure control for dose reduction was used. DATE OF EXAM: 06/25/2022 4:00 PM COMPARISON: 06/07/2012 CT. CLINICAL INDICATION:Male, 71 years old with history of J01.01;, sinusitis TECHNIQUE: Multiple thin axial images were obtained through the paranasal sinuses with the use of IV contrast. Additional coronal and sagittal reformatted images were submitted for evaluation. Contrast used:100 mL of Isovue 300 with IV Contrast Oral contrast used: none FINDINGS: Frontal sinuses: Normally developed and aerated. Frontal Recess: Clear Modified Klaus-Celso Score: Right 0 = 0% Opacified, Left 0 = 0% Opacified Maxillary Sinuses: Normally developed and aerated. Sestamibi changes bilaterally. Modified [place]-Celso Score: Right 0 = 0% Opacified, Left 0 = 0% Opacified Maxillary Infundibula(OMC): Clear, No Zahira cells identified. Modified Whiteford-Celso Score: Right 0 = Completely patent, Left 0 = Completely patent Ethmoid sinuses: Normally developed and aerated. Ethmoidal notch: Modified Whiteford-Celso Score: Anterior Right 0 = 0% Opacified, Left 0 = 0% Opacified Posterior Right 0 = 0% Opacified, Left 0 = 0% Opacified Sphenoid sinuses: Normally developed and aerated. There is sellar sphenoid sinus pneumatization witho ut evidence of dehiscence. No dehiscence of carotid canal. No evidence of optic nerve dehiscence wit hin the sphenoid sinus. No evidence of Onodi cells. Sphenoethmoidal recesses: Clear. Modified Klaus-[place] Score: Right 1 = 1-25% Opacified, Left 0 = 0% Opacified. Nasal septum: Mild anterior rightward deviation. Nasal Turbinates: Within normal limits. A malini bullosa defect is seen involving the left middle tur binate. Mastoid air cells & middle ears: The air cells are clear. The middle ears are grossly unremarkable. Modified Soft tissues & Brain: Partially seen without gross abnormality. Globes are intact. 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 No evidence of bony dehiscence of skull base. Lamina papyracea is intact without evidence of remote orbital fracture or orbital prolapse into the e thmoid sinus. Bilaterally aphakia. Atherosclerosis of the intracranial arterial vasculature. IMPRESSION: 1. No significant mucosal sinus disease. 2. Antrostomy changes to the ostiomeatal units, frontonasal and sphenoethmoidal recesses are clear. 3. Opacification burden of on the Modified Klaus-[place] scoring system.
== END | disposition home or self-care (01) ==
LOC: RADCTMAIN 14:34
PROVIDERS: ATTEND Family Medicine
DX: J01.01 Acute recurrent maxillary sinusitis (principal); J34.89 Other specified disorders of nose and nasal sinuses
CPT/HCPCS: 82565; 84520; 36415; 70487; Q9967

== ENCOUNTER 2022-11-04 22:18 | Emergency (ER) | payer MEDICARE ==
[2022-11-04] MEDS ORDERED: ACETAMINOPHEN TAB 325 MG TAB PO STA (22:45)
[2022-11-04] MEDS ORDERED: IBUPROFEN 600 MG TAB PO STA (22:45)
[2022-11-04] MEDS ORDERED: SODIUM CHLORIDE 0.9% 1,000 ML IV ONE (22:45)
--- NOTE | 2022-11-04 23:37 | ED ---
General Adult HPI - General Source: patient, RN notes reviewed Mode of arrival: ambulatory Limitations: no limitations <Lary Moore - Last Filed: 11/05/22 03:40> - History of Present Illness -: days(s) Location: abdomen Radiation: abdomen Quality: aching Consistency: constant Improves with: none Worsens with: none Associated Symptoms: loss of appetite, nausea/vomiting, weakness <Garrison Alonso - Last Filed: 11/05/22 05:34> - General Chief complaint: Nausea/Vomiting/Diarrhea Stated complaint: Nausea/vomiting Time Seen by Provider: 11/04/22 22:23 - History of Present Illness Initial comments: 71-year-old male with past medical history significant for peptic ulcer disease, hypertension, GERD, duodenal stricture, presents to the emergency department via EMS with a chief complaint of acute abdominal pain. Patient reports worsening abdominal pain that he localizes in his lower quadrant since this afternoon. He is also complaining of a headache. He has not taken anything for his symptoms. He is complaining of accompanying symptoms of nausea , vomiting, diarrhea. He is unaware that he is febrile. He reports that he has had a colonoscopy in the past which was unremarkable. Denies recent alcohol or tobacco use (Lary Moore) This is a 71-year-old male to the emergency department for evaluation. Patient has persistent abdominal pain with nausea vomiting and diarrhea history of GI illness and GI disease following up with GI. (Garrison Alonso) - Related Data Home Medications Medication Instructions Recorded Confirmed Simvastatin [Zocor] 40 mg PO HS 07/12/13 09/21/21 Dicyclomine [Bentyl] 10 mg PO TID 06/04/17 09/21/21 Latanoprost [Xalatan 0.005%] 1 drop BOTH EYES HS 09/20/18 09/21/21 Losartan Potassium 100 mg PO DAILY 09/20/18 09/21/21 Metoprolol Tartrate [Lopressor] 25 mg PO BID 09/20/18 09/21/21 Ondansetron [Zofran ODT] 4 mg PO BID PRN 09/20/18 09/21/21 Butalb/APAP/Caff 50-325-40Mg 2 tab PO Q6H PRN MDD 3caps/24hr 10/06/18 09/21/21 [Fioricet 50-325-40] Escitalopram [Lexapro] 10 mg PO HS 10/06/18 09/21/21 Brimonidine Tartrate [Alphagan P 1 drop BOTH EYES BID 12/25/19 09/21/21 0.2% Ophth Soln] Cholecalciferol [Vitamin D3 (25 50 mcg PO DAILY 12/25/19 09/21/21 Mcg = 1000 Iu)] Testosterone Cypionate 100 mg IM Q14D 12/25/19 09/21/21 [Depo-Testosterone] diazePAM [Valium] 5 mg PO HS PRN 12/25/19 09/21/21 Acetaminophen Tab [Tylenol] 650 mg PO Q4H PRN 12/28/19 09/21/21 Metoclopramide HCl [Reglan] 10 mg PO TID 05/25/20 09/21/21 Amitriptyline HCl [Elavil] 12.5 mg PO HS 09/21/21 09/21/21 Clobetasol Propionate/Emoll 1 applic TOPICAL DAILY PRN 09/21/21 09/21/21 [Clobetasol Emulsion 0.05% Foam] Diclofenac Sodium Gel [Voltaren 2 - 4 gm TOPICAL QID PRN 09/21/21 09/21/21 Gel] Gabapentin 800 mg PO TID 09/21/21 09/21/21 Ketoconazole 2% Shampoo [Nizoral] 1 applic TOPICAL Q72H PRN 09/21/21 09/21/21 Ondansetron [Zofran] 4 mg PO TID PRN 09/21/21 09/21/21 tadalafiL 10 mg PO DAILY@1300 09/21/21 09/21/21 Previous Rx's Medication Instructions Recorded Pantoprazole [Protonix] 40 mg PO AC-BRKFST #30 tab 09/27/21 Sodium Chloride Tab 1 gm PO DAILY #30 tab 09/27/21 Allergies Allergy/AdvReac Type Severity Reaction Status Date / Time atorvastatin [From Lipitor] AdvReac MUSCLE Verified 11/04/22 22:34 CRAMPS hydrochlorothiazide AdvReac Patient Verified 11/04/22 22:34 had episode of severe hyponatremia requiring hospita ropinirole [From Requip] AdvReac Hallucinati Verified 11/04/22 22:34 ons Review of Systems ROS Other: All systems not noted in ROS Statement are negative. <Lary Moore - Last Filed: 11/05/22 03:40> ROS Other: All systems not noted in ROS Statement are negative. <CelesteGarrison Benito - Last Filed: 11/05/22 05:34> ROS Statement: Those systems with pertinent positive or pertinent negative responses have been documented in the HPI. Past Medical History Past Medical History: Coronary Artery Disease (CAD), Chest Pain / Angina, Eye Disorder, GERD/Reflux, Hyperlipidemia, Hypertension, Myocardial Infarction (IL), Osteoarthritis (OA) Additional Past Medical History / Comment(s): recent admission for nausea/vomiting/diarrhea, Neck pain, SVT with ablation, duodenal ulcers, chronic duodenal stricture, bilateral glaucoma, sinusitis, migraines, anemia, esophagitis,hiatal hernia, chronic back pain, past fx ribs/sternum Last Myocardial Infarction Date:: 1999 History of Any Multi-Drug Resistant Organisms: None Reported Past Surgical History: Cardiac Ablation, Cholecystectomy, Heart Catheterization With Stent Additional Past Surgical History / Comment(s): stent right eye 03/2018, PCI with 3 stents, sinus surgery, cataracts bilaterally with lens implants, EGDs/colonoscopies, Past Anesthesia/Blood Transfusion Reactions: No Reported Reaction Additional Past Anesthesia/Blood Transfusion Reaction / Comment(s): Pt has had past multiple transfusions without reaction. Date of Last Stent Placement:: 1999 Past Psychological History: Anxiety Smoking Status: Former smoker Past Alcohol Use History: None Reported Past Drug Use History: None Reported - Past Family History Father Additional Family Medical History / Comment(s): Father at the age of 68yrs from a ruptured aortic aneurysm. Mother Additional Family Medical History / Comment(s): Mother lived into her 80's. Brother(s) Family Medical History: Cancer Additional Family Medical History / Comment(s): The patient had 3 brothers. One from colon cancer with metastatic disease to the brain. One brother at age 79 from a myocardial infarction. He has 1 brother that is alive with history of skin cancer and diabetes. Sister(s) Additional Family Medical History / Comment(s): The patient is a total of 3 sisters. One in her 80s from myocardial infarction. One sister at age 58 from coronary artery disease and also had a valvular disorder. Patient has one sister alive with diabetes and multiple other medical conditions. Patient has 2 sons and 1 daughter with no major medical problems. <Lary Moore - Last Filed: 11/05/22 03:40> General Exam Limitations: no limitations <Lary Moore - Last Filed: 11/05/22 03:40> General appearance: alert, in no apparent distress Head exam: Present: atraumatic, normocephalic, normal inspection Eye exam: Present: normal appearance, PERRL, EOMI. Absent: scleral icterus, conjunctival injection, periorbital swelling ENT exam: Present: normal exam, mucous membranes moist Neck exam: Present: normal inspection. Absent: tenderness, meningismus, lymp hadenopathy Respiratory exam: Present: normal lung sounds bilaterally. Absent: respiratory distress, wheezes, rales, rhonchi, stridor Cardiovascular Exam: Present: regular rate, normal rhythm, normal heart sounds. Absent: systolic murmur, diastolic murmur, rubs, gallop, clicks GI/Abdominal exam: Present: soft, normal bowel sounds. Absent: distended, tenderness, guarding, rebound, rigid Extremities exam: Present: normal inspection, full ROM, normal capillary refill. Absent: tenderness, pedal edema, joint swelling, calf tenderness Back exam: Present: normal inspection Neurological exam: Present: alert, oriented X3, CN II-XII intact Psychiatric exam: Present: normal affect, normal mood Skin exam: Present: warm, dry, intact, normal color. Absent: rash <Garrison Alonso - Last Filed: 11/05/22 05:34> - General Exam Comments Initial Comments: General: Alert, in no acute distress, febrile Head: atraumatic normocephalic. Eyes PERRL, EOMI intact, mucous membranes moist Respiratory: Lungs clear to auscultation bilaterally Cardiovascular: tachycardic Abdominal: mildly rigid, without guarding or rebound, generalized tenderness Extremities: Normal inspection with full range of motion and normal capillary refill Neuroogic: alert and oriented 3, CN II-XII intact, able to ambulate with steady gait Skin: warm dry and intact with normal color (Lary Moore) Course <Lary Moore - Last Filed: 11/05/22 03:40> <Garrison Alonso - Last Filed: 11/05/22 05:34> Vital Signs 11/04/22 11/05/22 22:30 01:08 Temperature 101.9 F H 98.7 F Pulse Rate 106 H 98 Respiratory 20 17 Rate Blood Pressure 118/63 99/65 O2 Sat by Pulse 95 96 Oximetry - Reevaluation(s) Reevaluation #1: 11/05/22 02:56 He shouldn't reevaluated. Patient aware awaiting CT results. Patient resting comfortably. (Lary Moore) Reevaluation #2: 11/05/22 03:40 Patient signed out to Dr. Luu who assumes care of the patient pending abdominal CT results. (Lary Moore) Reevaluation #3: 11/05/22 05:31 Symptoms are improved here in the ER Patient informed results questions answered (Garrison Alonso) Reevaluation #4: 11/05/22 05:31 Was pt. sent in by a medical professional or institution (, PA, ZONE MANAGER, urgent care, hospital, or retirement...) When possible be specific @ -no Did you speak to anyone other than the patient for history (EMS, parent, family, police, friend...)? What history was obtained from this source @ -no Did you review nursing and triage notes (agree or disagree)? Why? @ -agree Are old charts reviewed (outside hosp., previous admission, EMS record, old EKG, old radiological studies, urgent care reports/EKG's, retirement records)? Report findings @ -yes Differential Diagnosis (chest pain, altered mental status, abdominal pain women, abdominal pain men, vaginal bleeding, weakness, fever, dyspnea, syncope, headache, dizziness, GI bleed, back pain, seizure, CVA, palpatations, mental health, musculoskeletal)? @ -prior EKG interpreted by me (3pts min.). @ -yes X-rays interpreted by me (1pt min.). @ -yes CT interpreted by me (1pt min.). @ -no U/S interpreted by me (1pt. min.). @ -no What testing was considered but not performed or refused? (CT, X-rays, U/S, labs)? Why? @ -none What meds were considered but not given or refused? Why? @ -none Did you discuss the management of the patient with other professionals (professionals i.e. , PA, ZONE MANAGER, lab, RT, psych nurse, social media job titles, professor of communication, teacher, staff nuclear weapons officer, supportive employment case manager)? Give summary @ -no Was smoking cessation discussed for >3mins.? @ -no Was critical care preformed (if so, how long)? @ -no Were there social determinants of health that impacted care today? How? (Homelessness, low income, unemployed, alcoholism, drug addiction, transportation, low edu. Level, literacy, decrease access to med. care, prison, rehab)? @ -none Was there de-escalation of care discussed even if they declined (Discuss DNR or withdrawal of care, Hospice)? DNR status @ -no What co-morbidities impacted this encounter? (DM, HTN, Smoking, COPD, CAD, Cancer, CVA, ARF, Chemo, Hep., AIDS, mental health diagnosis, sleep apnea, morbid obesity)? @ -none Was patient admitted / discharged? Hospital course, mention meds given and route, prescriptions, significant lab abnormalities, going to OR and other pertinent info. @ - Undiagnosed new problem with uncertain prognosis? @ -no Drug Therapy requiring intensive monitoring for toxicity (Heparin, Nitro, Insulin, Cardizem)? @ -no Were any procedures done? @ -no Diagnosis/symptom? @ - Acute, or Chronic, or Acute on Chronic? @ -Acute Uncomplicated (without systemic symptoms) or Complicated (systemic symptoms)? @ -Complicated Side effects of treatment? @ -no Exacerbation, Progression, or Severe Exacerbation? @ -exacerbation Poses a threat to life or bodily function? How? (Chest pain, [place], [place], pneumonia, PE, COPD, DKA, ARF, appy, cholecystitis, CVA, Diverticulitis, Homicidal, Suicidal, threat to staff... and all critical care pts) @ -yes (Garrison Alonso) Reevaluation #5: 11/05/22 05:31 Differential Abdominal Pain Men: Appendicitis, cholecystitis, diverticulosis, ischemic bowel, pancreatitis, hepatitis, UTI, gastroenteritis, AAA, incarcerated hernia, bowel obstruction, constipation, inflammatory bowel, hepatitis, peptic ulcer disease, splenic infarction, perforated viscus, testicular torsion, this is not meant to be an all-inclusive list (Garrison Alonso) Medical Decision Making - Lab Data Result diagrams: 11/04/22 23:18 11/04/22 23:18 <Lary Moore - Last Filed: 11/05/22 03:40> - Lab Data Result diagrams: 11/04/22 23:18 11/04/22 23:18 - Radiology Data Radiology results: report reviewed (CT abdomen and pelvis is positive for colitis), image reviewed <Garrison Alonso - Last Filed: 11/05/22 05:34> - Medical Decision Making Was pt. sent in by a medical professional or institution (, RADHA, ZONE MANAGER, urgent care, hospital, or retirement...) When possible be specific @ -[No] Did you speak to anyone other than the patient for history (EMS, parent, family, police, friend...)? What history was obtained from this source @ -EMS, Did you review nursing and triage notes (agree or disagree)? Why? @ -[I reviewed and agree with nursing and triage notes] Were old charts reviewed (outside hosp., previous admission, EMS record, old EKG, old radiological studies, urgent care reports/EKG's, retirement records)? Report findings @ -[No old charts were reviewed] Differential Diagnosis (chest pain, altered mental status, abdominal pain women, abdominal pain men, vaginal bleeding, weakness, fever, dyspnea, syncope, headache, dizziness, GI bleed, back pain, seizure, CVA, palpatations, mental health, musculoskeletal)? @ -[not applicable] EKG interpreted by me (3pts min.). @ -[As above] X-rays interpreted by me (1pt min.). @ -[None done] CT interpreted by me (1pt min.). @ -[None done] U/S interpreted by me (1pt. min.). @ -[None done] What testing was considered but not performed or refused? (CT, X-rays, U/S, labs)? Why? @ -[None] What meds were considered but not given or refused? Why? @ -[None] Did you discuss the management of the patient with other professionals (professionals i.e. , RADHA, ZONE MANAGER, lab, RT, psych nurse, social media job titles, professor of communication, teacher, staff nuclear weapons officer, supportive employment case manager)? Give summary @ -[No] Was smoking cessation discussed for >3mins.? @ -[No] Was critical care preformed (if so, how long)? @ -[No] Were there social determinants of health that impacted care today? How? (Homelessness, low income, unemployed, alcoholism, drug addiction, transportation, low edu. Level, literacy, decrease access to med. care, prison, rehab)? @ -[No] Was there de-escalation of care discussed even if they declined (Discuss DNR or withdrawal of care, Hospice)? DNR status @ -[No] What co-morbidities impacted this encounter? (DM, HTN, Smoking, COPD, CAD, Cancer, CVA, ARF, Chemo, Hep., AIDS, mental health diagnosis, sleep apnea, morbid obesity)? @ -[None] Was patient admitted / discharged? Hospital course, mention meds given and route, prescriptions, significant lab abnormalities, going to OR and other pertinent info. @ -Disposition pending. This is a pleasant 71-year-old male with an extensive abdominal history who presents the emergency department via EMS the chief complaint of nausea, vomiting, abdominal pain. Patient had a thorough history and physical performed on the ED. Physical exam initially reveals a feb rile, tachycardic patient with generalized abdominal tenderness. Abdomen is mildly distended. Patient had labs obtained which revealed: WBC 12.9, hemoglobin 13.0 sodium 136, potassium 4.0 BUN 18, creatinine 0.95 initial lactic acid was 2.6 COVID, INfluenza, RSV results are negative. Blood cultures pending. Patient was given Tylenol, and Motrin for symptomatic relief. He was provided 1 L of IV fluids and route to the hospital via EMS. He is provided 1 L IV fluids during the course in the ED. Patient given morphine and Zofran with symptomatic relief. Patient will be signed out to Dr. Alonso, ED attending [place] care of the patient pending CT results. (Lary Moore) 68 female to the emergency department for evaluation, patient with nausea vomiting diarrhea abdominal pain with fever. Patient has CT scanning here in the ER positive for colitis. Patient was placed home on nothing by mouth status nausea medication pain control can be discharged. (Garrison Alonso) - Lab Data Lab Results 11/04/22 11/04/22 11/04/22 Range/Units 23:18 23:18 23:18 WBC 12.9 H (3.8-10.6) k/uL RBC 4.23 L (4.30-5.90) m/uL Hgb 13.0 (13.0-17.5) gm/dL Hct 38.7 L (39.0-53.0) % MCV 91.5 (80.0-100.0) fL MCH 30.8 (25.0-35.0) pg MCHC 33.7 (31.0-37.0) g/dL RDW 12.4 (11.5-15.5) % Plt Count 235 (150-450) k/uL MPV 7.0 Neutrophils % 82 % Lymphocytes % 9 % Monocytes % 7 % Eosinophils % 1 % Basophils % 0 % Neutrophils # 10.6 H (1.3-7.7) k/uL Lymphocytes # 1.2 (1.0-4.8) k/uL Monocytes # 0.9 (0-1.0) k/uL Eosinophils # 0.2 (0-0.7) k/uL Basophils # 0.0 (0-0.2) k/uL Sodium 136 L (137-145) mmol/L Potassium 4.0 (3.5-5.1) mmol/L Chloride 102 (98-107) mmol/L Carbon Dioxide 21 L (22-30) mmol/L Anion Gap 13 mmol/L BUN 18 (9-20) mg/dL Creatinine 0.95 (0.66-1.25) mg/dL Est GFR (CKD-EPI)AfAm >90 (>60 ml/min/1.73 sqM) Est GFR (CKD-EPI)NonAf 80 (>60 ml/min/1.73 sqM) Glucose 113 H (74-99) mg/dL Lactic Ac Sepsis Rflx Plasma Lactic Acid Ney 2.6 H* (0.7-2.0) mmol/L Calcium 9.4 (8.4-10.2) mg/dL Total Bilirubin 0.4 (0.2-1.3) mg/dL AST 22 (17-59) U/L ALT 17 (4-49) U/L Alkaline Phosphatase 94 (38-126) U/L Total Protein 6.6 (6.3-8.2) g/dL Albumin 3.9 (3.5-5.0) g/dL Influenza Type A (PCR) (Not Detectd) Influenza Type B (PCR) (Not Detectd) RSV (PCR) (Not Detectd) SARS-CoV-2 (PCR) (Not Detectd) 11/04/22 11/05/22 Range/Units 23:18 02:41 WBC (3.8-10.6) k/uL RBC (4.30-5.90) m/uL Hgb (13.0-17.5) gm/dL Hct (39.0-53.0) % MCV (80.0-100.0) fL MCH (25.0-35.0) pg MCHC (31.0-37.0) g/dL RDW (11.5-15.5) % Plt Count (150-450) k/uL MPV Neutrophils % % Lymphocytes % % Monocytes % % Eosinophils % % Basophils % % Neutrophils # (1.3-7.7) k/uL Lymphocytes # (1.0-4.8) k/uL Monocytes # (0-1.0) k/uL Eosinophils # (0-0.7) k/uL Basophils # (0-0.2) k/uL Sodium (137-145) mmol/L Potassium (3.5-5.1) mmol/L Chloride (98-107) mmol/L Carbon Dioxide (22-30) mmol/L Anion Gap mmol/L BUN (9-20) mg/dL Creatinine (0.66-1.25) mg/dL Est GFR (CKD-EPI)AfAm (>60 ml/min/1.73 sqM) Est GFR (CKD-EPI)NonAf (>60 ml/min/1.73 sqM) Glucose (74-99) mg/dL Lactic Ac Sepsis Rflx Y Plasma Lactic Acid Ney (0.7-2.0) mmol/L Calcium (8.4-10.2) mg/dL Total Bilirubin (0.2-1.3) mg/dL AST (17-59) U/L ALT (4-49) U/L Alkaline Phosphatase (38-126) U/L Total Protein (6.3-8.2) g/dL Albumin (3.5-5.0) g/dL Influenza Type A (PCR) Not Detected (Not Detectd) Influenza Type B (PCR) Not Detected (Not Detectd) RSV (PCR) Not Detected (Not Detectd) SARS-CoV-2 (PCR) Not Detected (Not Detectd) Disposition <Lary Moore - Last Filed: 11/05/22 03:40> Is patient prescribed a controlled substance at d/c from ED?: No <Garrison Alonso - Last Filed: 11/05/22 05:34> Clinical Impression: Dehydration, Abdominal pain, Nausea & vomiting, Diarrhea, Intractable nausea and vomiting, Enteritis, Fever Disposition: HOME SELF-CARE Condition: Good Instructions (If sedation given, give patient instructions): Abdominal Pain (ED) Referrals: Jocelin Khan MD [Primary Care Provider] - 1-2 days
[2022-11-04 23:59] LABS: Basophils % (A) 0 %; Eosinophils # (A) 0.2 k/uL (0-0.7); Eosinophils % (A) 1 %; HCT 38.7 % (39.0-53.0); Lymphocytes # (A) 1.2 k/uL (1.0-4.8); Lymphocytes % (A) 9 %; MCH 30.8 pg (25.0-35.0); MCHC 33.7 g/dL (31.0-37.0); MCV 91.5 fL (80.0-100.0); Monocytes # (A) 0.9 k/uL (0-1.0); Monocytes % (A) 7 %; Neutrophils # (A) 10.6 k/uL (1.3-7.7); Neutrophils % (A) 82 %; Platelet Count 235 k/uL (150-450); RBC 4.23 m/uL (4.30-5.90); RDW 12.4 % (11.5-15.5); WBC 12.9 k/uL (3.8-10.6)
[2022-11-05 00:03] LABS: ALT 17 U/L (4-49); AST 22 U/L (17-59); African American GFR (CKD) >90 (>60 ml/min/1.73 sqM); Albumin 3.9 g/dL (3.5-5.0); Alkaline Phosphatase 94 U/L (38-126); Anion Gap 13 mmol/L; Blood Urea Nitrogen 18 mg/dL (9-20); Calcium 9.4 mg/dL (8.4-10.2); Carbon Dioxide 21 mmol/L (22-30); Chloride 102 mmol/L (98-107); Glucose 113 mg/dL (74-99); Non-African American GFR(CKD) 80 (>60 ml/min/1.73 sqM); Sodium 136 mmol/L (137-145); Total Bilirubin 0.4 mg/dL (0.2-1.3); Total Protein 6.6 g/dL (6.3-8.2)
[2022-11-05] MEDS ORDERED: MORPHINE SULFATE 2 MG/ML SYRINGE IVP ONE (00:22)
[2022-11-05] MEDS ORDERED: ONDANSETRON 4 MG/2 ML VIAL IVP STA (00:22)
[2022-11-05] MEDS ORDERED: MORPHINE SULFATE 4 MG/ML SYRINGE IVP STA (01:06)
--- NOTE | 2022-11-05 04:31 | CT ---
EXAM: CT Abdomen and Pelvis With Intravenous Contrast CLINICAL HISTORY: ITS.REASON CT Reason: abdominal pain TECHNIQUE: Axial computed tomography images of the abdomen and pelvis with intravenous contrast. CTDI is 27.4 mGy and DLP is 1776.4 mGy-cm. This CT exam was performed using one or more of the following dose reduction techniques: automated exposure control, adjustment of the mA and/or kV according to patient size, and/or use of iterative reconstruction technique. COMPARISON: 05/31/2020 FINDINGS: ABDOMEN: Liver: Unremarkable. Gallbladder and bile ducts: Status post cholecystectomy. Pancreas: Unremarkable. Spleen: Unremarkable. Adrenals: Unremarkable. Kidneys and ureters: Parapelvic cyst in the left kidney measuring 4 cm. Cortical cyst in the inferior pole of the right kidney measuring 2 cm. No hydronephrosis. Stomach and bowel: Mucosal thickening and inflammation from the transverse colon through the sigmoid colon consistent with nonspecific infectious or inflammatory colitis. No perforation or abscess. PELVIS: Appendix: No findings to suggest acute appendicitis. Bladder: Unremarkable. Reproductive: Prostate enlarged measuring 5.5 cm. ABDOMEN and PELVIS: Intraperitoneal space: Unremarkable. No free air. No significant fluid collection. Bones/joints: Moderate degenerative changes within the lumbar spine. Soft tissues: Unremarkable. Vasculature: Unremarkable. Lymph nodes: Unremarkable. IMPRESSION: 1. Mucosal thickening and inflammation from the transverse colon through the sigmoid colon consistent with nonspecific infectious or inflammatory colitis. No perforation or abscess. 2. Prostatomegaly.
[2022-11-05] MEDS ORDERED: KETOROLAC 15 MG/ML 1 ML VIAL IVP STA (05:28)
[2022-11-05] MEDS ORDERED: PROCHLORPERAZINE INJ 10 MG/2 ML VIAL IVP STA (05:28)
[2022-11-05] MEDS ORDERED: HYDROmorphone 1 MG/ML 1 ML SYRINGE IVP STA (05:29)
[2022-11-05] MEDS ORDERED: ONDANSETRON 4 MG ODT STARTER PACK 2 TAB BTL PO STA (05:34)
[2022-11-05] MEDS ORDERED: DICYCLOMINE 10 MG/ML 2 ML AMP IM STA (05:34)
[2022-11-05] MEDS ORDERED: ACET/COD 300 MG/30 MG STARTER PACK 6 TAB BTL PO STA (05:34)
[2022-11-05] MEDS ORDERED: traMADol 50 MG STARTER PACK 3 TAB BTL PO STA (05:34)
[2022-11-05 05:38] VITALS: BP 97/55; PULSE 87; RESP 18; TEMP 98.2
== END 2022-11-05 06:23 | disposition home or self-care (01) ==
LOC: EC 22:18
DX: E86.0 Dehydration (principal); R10.9 Unspecified abdominal pain; R11.2 Nausea with vomiting, unspecified; K52.9 Noninfective gastroenteritis and colitis, unspecified; I25.10 Atherosclerotic heart disease of native coronary artery without angina pectoris; E78.5 Hyperlipidemia, unspecified; I10 Essential (primary) hypertension; I25.2 Old myocardial infarction; M19.90 Unspecified osteoarthritis, unspecified site; F41.9 Anxiety disorder, unspecified; Z87.891 Personal history of nicotine dependence; Z79.1 Long term (current) use of non-steroidal anti-inflammatories (NSAID); Z79.899 Other long term (current) drug therapy; Z88.8 Allergy status to other drugs, medicaments and biological substances; Z88.6 Allergy status to analgesic agent; Z20.822 Contact with and (suspected) exposure to COVID-19; Z90.49 Acquired absence of other specified parts of digestive tract
CPT/HCPCS: 36415 ×2; 80053; 83605; 85025; 87040; 87636; 74177; 99285; 96374; 96375 ×4; 96361 ×2; 96372; J0500; J0780; J2405; J2270; J1170; J1885; S0119; Q9967

== ENCOUNTER 2022-11-13 21:10 | Inpatient (IN) | payer MEDICARE ==
[2022-11-13] MEDS ORDERED: MORPHINE SULFATE 4 MG/ML SYRINGE IVP STA (22:32)
[2022-11-13] MEDS ORDERED: ACETAMINOPHEN TAB 325 MG TAB PO STA (22:32)
[2022-11-13] MEDS: SODIUM CHLORIDE 0.9% 500 ML 500 ML IV SCH ×2 (22:48→23:22)
[2022-11-13 23:10] LABS: Basophils % (A) 0 %; Eosinophils # (A) 0.2 k/uL (0-0.7); Eosinophils % (A) 2 %; HCT 36.2 % (39.0-53.0); HGB 12.1 gm/dL (13.0-17.5); Lymphocytes # (A) 0.6 k/uL (1.0-4.8); Lymphocytes % (A) 7 %; MCHC 33.4 g/dL (31.0-37.0); MCV 92.7 fL (80.0-100.0); Mean Platelet Volume 7.6; Monocytes # (A) 0.4 k/uL (0-1.0); Monocytes % (A) 4 %; Neutrophils # (A) 7.7 k/uL (1.3-7.7); Neutrophils % (A) 87 %; Platelet Count 339 k/uL (150-450); RDW 12.5 % (11.5-15.5); WBC 8.8 k/uL (3.8-10.6)
[2022-11-13] MEDS ORDERED: ONDANSETRON 4 MG/2 ML VIAL IVP STA (23:16)
[2022-11-13 23:29] LABS: Partial Thromboplastin Time 24.5 sec (22.0-30.0); Prothrombin Time 10.2 sec (9.0-12.0)
[2022-11-13 23:31] LABS: ALT 18 U/L (4-49); AST 28 U/L (17-59); African American GFR (CKD) >90 (>60 ml/min/1.73 sqM); Albumin 3.7 g/dL (3.5-5.0); Alkaline Phosphatase 79 U/L (38-126); Anion Gap 12 mmol/L; Blood Urea Nitrogen 10 mg/dL (9-20); Calcium 8.7 mg/dL (8.4-10.2); Carbon Dioxide 21 mmol/L (22-30); Chloride 103 mmol/L (98-107); Glucose 166 mg/dL (74-99); Non-African American GFR(CKD) 87 (>60 ml/min/1.73 sqM); Sodium 136 mmol/L (137-145); Total Bilirubin 0.3 mg/dL (0.2-1.3); Total Protein 6.5 g/dL (6.3-8.2)
[2022-11-14] MEDS: SODIUM CHLORIDE 0.9% 500 ML 500 ML IV SCH ×3 (00:21→01:45)
[2022-11-14] MEDS ORDERED: MORPHINE SULFATE 4 MG/ML SYRINGE IVP STA (00:46)
--- NOTE | 2022-11-14 00:52 | CT ---
EXAM: CT Abdomen and Pelvis With Intravenous Contrast CLINICAL HISTORY: ITS.REASON CT Reason: Acute abdominal pain TECHNIQUE: Axial computed tomography images of the abdomen and pelvis with intravenous contrast. CTDI is 26.4 mGy and DLP is 1224.1 mGy-cm. This CT exam was performed using one or more of the following dose reduction techniques: automated exposure control, adjustment of the mA and/or kV according to patient size, and/or use of iterative reconstruction technique. COMPARISON: Comparison made to prior head CT from November 05, 2022. FINDINGS: Lung bases: Unremarkable. No mass. No consolidation. ABDOMEN: Liver: Unremarkable. No mass. Gallbladder and bile ducts: Status post cholecystectomy.. No ductal dilation. Pancreas: Unremarkable. No mass. No ductal dilation. Spleen: Unremarkable. No splenomegaly. Adrenals: Unremarkable. No mass. Kidneys and ureters: Left parapelvic cyst. Small right renal cyst. No solid mass. No hydronephrosis. Stomach and bowel: There is thickening and edema of the distal transverse, descending and sigmoid colon. PELVIS: Appendix: No findings to suggest acute appendicitis. Bladder: Unremarkable. No mass. Reproductive: Prostatomegaly with mild mass-effect on the urinary trigone. ABDOMEN and PELVIS: Intraperitoneal space: Unremarkable. No free air. No significant fluid collection. Bones/joints: Advanced disc degeneration at L3-4 and L4-5. Remote fracture deformity of the T12 vertebral body. No acute fracture. No dislocation. Soft tissues: Unremarkable. Vasculature: Unremarkable. No abdominal aortic aneurysm. Lymph nodes: Prominent lymph nodes scattered throughout the mesenteric fat. Prominent inguinal lymph nodes. IMPRESSION: Findings concerning for colitis of the transverse, descending and sigmoid colon, which may be infectious or inflammatory illness. Secondary mesenteric adenitis.
[2022-11-14 00:58] LABS: Appearance,Urine Clear (Clear); Bilirubin,Urine Negative (Negative); Blood,Urine Negative (Negative); Color,Urine Colorless; Glucose,Urine (UA) Negative (Negative); Ketones,Urine Negative (Negative); Leukocyte Esterase,Urine Negative (Negative); Nitrite,Urine Negative (Negative); Protein,Urine Negative (Negative); Urobilinogen,Urine <2.0 mg/dL (<2.0)
[2022-11-14] MEDS ORDERED: LEVOFLOXACIN 500MG-D5W PMX 500 MG in DEXTROSE/WATER 1 100ML.BAG IVPB STA (01:31)
[2022-11-14] MEDS ORDERED: metroNIDAZOLE-NS PMX 500 MG in SALINE 1 100ML.BAG IVPB STA (01:31)
[2022-11-14] MEDS ORDERED: NALOXONE 0.4 MG/ML 1 ML VIAL IV PRN (01:38)
--- NOTE | 2022-11-14 01:38 | ED ---
General Adult HPI - General Chief complaint: Abdominal Pain Stated complaint: fever,abdominal pain Time Seen by Provider: 11/13/22 21:29 Source: family Mode of arrival: wheelchair Limitations: no limitations - History of Present Illness Initial comments: This is a 71-year-old male with a past medical history including hypertension, hyperlipidemia, coronary artery disease and cardiac stents presents the emergency department for abdominal pain and fevers. The patient reported that he was seen in the emergency department one and a half weeks ago and was diagnosed with a "intestines infection" and was given antibiotics. The patient saw his primary care physician who put him on ciprofloxacin and told him to continue to monitor symptoms. He reported that throughout the day he had increasing fevers with increasing abdominal pain. The patient reported a normal bowel movement but then diarrhea throughout the day. The patient on arrival stated that he was dehydrated and had continued pain. Denied any other acute pain or complaints including any nausea or vomiting currently however the patient did take Zofran prior to arrival. - Related Data Home Medications Medication Instructions Recorded Confirmed Simvastatin [Zocor] 40 mg PO HS 07/12/13 09/21/21 Dicyclomine [Bentyl] 10 mg PO TID 06/04/17 09/21/21 Latanoprost [Xalatan 0.005%] 1 drop BOTH EYES HS 09/20/18 09/21/21 Losartan Potassium 100 mg PO DAILY 09/20/18 09/21/21 Metoprolol Tartrate [Lopressor] 25 mg PO BID 09/20/18 09/21/21 Ondansetron [Zofran ODT] 4 mg PO BID PRN 09/20/18 09/21/21 Butalb/APAP/Caff 50-325-40Mg 2 tab PO Q6H PRN MDD 3caps/24hr 10/06/18 09/21/21 [Fioricet 50-325-40] Escitalopram [Lexapro] 10 mg PO HS 10/06/18 09/21/21 Brimonidine Tartrate [Alphagan P 1 drop BOTH EYES BID 12/25/19 09/21/21 0.2% Ophth Soln] Cholecalciferol [Vitamin D3 (25 50 mcg PO DAILY 12/25/19 09/21/21 Mcg = 1000 Iu)] Testosterone Cypionate 100 mg IM Q14D 12/25/19 09/21/21 [Depo-Testosterone] diazePAM [Valium] 5 mg PO HS PRN 12/25/19 09/21/21 Acetaminophen Tab [Tylenol] 650 mg PO Q4H PRN 12/28/19 09/21/21 Metoclopramide HCl [Reglan] 10 mg PO TID 05/25/20 09/21/21 Amitriptyline HCl [Elavil] 12.5 mg PO HS 09/21/21 09/21/21 Clobetasol Propionate/Emoll 1 applic TOPICAL DAILY PRN 09/21/21 09/21/21 [Clobetasol Emulsion 0.05% Foam] Diclofenac Sodium Gel [Voltaren 2 - 4 gm TOPICAL QID PRN 09/21/21 09/21/21 Gel] Gabapentin 800 mg PO TID 09/21/21 09/21/21 Ketoconazole 2% Shampoo [Nizoral] 1 applic TOPICAL Q72H PRN 09/21/21 09/21/21 Ondansetron [Zofran] 4 mg PO TID PRN 09/21/21 09/21/21 tadalafiL 10 mg PO DAILY@1300 09/21/21 09/21/21 Previous Rx's Medication Instructions Recorded Pantoprazole [Protonix] 40 mg PO AC-BRKFST #30 tab 09/27/21 Sodium Chloride Tab 1 gm PO DAILY #30 tab 09/27/21 Allergies Allergy/AdvReac Type Severity Reaction Status Date / Time atorvastatin [From Lipitor] AdvReac MUSCLE Verified 11/13/22 21:15 CRAMPS hydrochlorothiazide AdvReac Patient Verified 11/13/22 21:15 had episode of severe hyponatremia requiring hospita ropinirole [From Requip] AdvReac Hallucinati Verified 11/13/22 21:15 ons scopolamine AdvReac Hallucinati Verified 11/13/22 21:15 ons Review of Systems ROS Statement: Those systems with pertinent positive or pertinent negative responses have been documented in the HPI. ROS Other: All systems not noted in ROS Statement are negative. Past Medical History Past Medical History: Coronary Artery Disease (CAD), Chest Pain / Angina, Eye Disorder, GERD/Reflux, Hyperlipidemia, Hypertension, Myocardial Infarction (ID), Osteoarthritis (OA) Additional Past Medical History / Comment(s): recent admission for nausea/vomiting/diarrhea, Neck pain, SVT with ablation, duodenal ulcers, chronic duodenal stricture, bilateral glaucoma, sinusitis, migraines, anemia, esophagi tis,hiatal hernia, chronic back pain, past fx ribs/sternum Last Myocardial Infarction Date:: 1999 History of Any Multi-Drug Resistant Organisms: None Reported Past Surgical History: Cardiac Ablation, Cholecystectomy, Heart Catheterization With Stent Additional Past Surgical History / Comment(s): stent right eye 03/2018, PCI with 3 stents, sinus surgery, cataracts bilaterally with lens implants, EG Ds/colonoscopies, Past Anesthesia/Blood Transfusion Reactions: No Reported Reaction Additional Past Anesthesia/Blood Transfusion Reaction / Comment(s): Pt has had past multiple transfusions without reaction. Date of Last Stent Placement:: 1999 Past Psychological History: Anxiety Smoking Status: Former smoker Past Alcohol Use History: None Reported Past Drug Use History: None Reported - Past Family History Father Additional Family Medical History / Comment(s): Father at the age of 68yrs from a ruptured aortic aneurysm. Mother Additional Family Medical History / Comment(s): Mother lived into her 80's. Brother(s) Family Medical History: Cancer Additional Family Medical History / Comment(s): The patient had 3 brothers. One from colon cancer with metastatic disease to the brain. One brother at age 79 from a myocardial infarction. He has 1 brother that is alive with history of skin cancer and diabetes. Sister(s) Additional Family Medical History / Comment(s): The patient is a total of 3 sisters. One in her 80s from myocardial infarction. One sister at age 58 from coronary artery disease and also had a valvular disorder. Patient has one sister alive with diabetes and multiple other medical conditions. Tabitha marquez has 2 sons and 1 daughter with no major medical problems. General Exam Limitations: no limitations General appearance: alert, in no apparent distress Head exam: Present: atraumatic, normocephalic, normal inspection Eye exam: Present: normal appearance, PERRL Pupils: Present: normal accommodation ENT exam: Present: normal exam, normal oropharynx, mucous membranes moist Neck exam: Present: normal inspection, full ROM Respiratory exam: Present: normal lung sounds bilaterally Cardiovascular Exam: Present: regular rate, normal rhythm, normal heart sounds GI/Abdominal exam: Present: soft, tenderness (Tenderness to palpation in the bilateral lower abdominal quadrants as well as suprapubic region) Extremities exam: Present: normal inspection, full ROM Back exam: Present: normal inspection, full ROM Neurological exam: Present: alert, oriented X3, CN II-XII intact Psychiatric exam: Present: normal affect, normal mood Skin exam: Present: warm, dry Course Vital Signs 11/13/22 11/14/22 21:12 00:25 Temperature 102.9 F H 98.2 F Pulse Rate 105 H 77 Respiratory 20 17 Rate Blood Pressure 130/73 O2 Sat by Pulse 95 98 Oximetry EKG Findings - EKG Comments: EKG Findings:: An EKG was obtained and was interpreted by myself showing a rate of 82, DE interval 206, QR voodoo of 88 and QTC of 417. This EKG showed a normal sinus rhythm with no ST segment elevation or depression noted. Medical Decision Making - Medical Decision Making Was pt. sent in by a medical professional or institution (, PA, BRICKLAYER SEWER, urgent care, hospital, or intermediate...) When possible be specific @ -No Did you speak to anyone other than the patient for history (EMS, parent, family, police, friend...)? What history was obtained from this source @ -No Did you review nursing and triage notes (agree or disagree)? Why? @ -I reviewed and agree with nursing and triage notes Were old charts reviewed (outside hosp., previous admission, EMS record, old EKG, old radiological studies, urgent care reports/EKG's, intermediate records)? Report findings @ -No old charts were reviewed Differential Diagnosis (chest pain, altered mental status, abdominal pain women, abdominal pain men, vaginal bleeding, weakness, fever, dyspnea, syncope, headache, dizziness, GI bleed, back pain, seizure, CVA, palpatations, mental health)? @ -Diverticulitis, abscess, colitis EKG interpreted by me (3pts min.). @ -As above X-rays interpreted by me (1pt min.). @ -None done CT interpreted by me (1pt min.). @ -CT of the abdomen and pelvis with IV contrast was obtained and was interpreted by myself showing findings concerning for colitis of the transverse, descending and sigmoid colon which may be infectious or inflammatory. There was secondary mesenteric adenitis. U/S interpreted by me (1pt. min.). @ -None done What testing was considered but not performed or refused? (CT, X-rays, U/S, labs)? Why? @ -None What meds were considered but not given or refused? Why? @ -None Did you discuss the management of the patient with other professionals (professionals i.e. , PA, BRICKLAYER SEWER, lab, RT, psych nurse, social work nurse, patient accounts clerk, teacher, public service officer, bottle caser)? Give summary @ -Yes, Dr. Marquez was contacted regarding patient admission and accepted the patient for admission Was smoking cessation discussed for >3mins.? @ -No Was critical care preformed (if so, how long)? @ -No Were there social determinants of health that impacted care today? How? (Homelessness, low income, unemployed, alcoholism, drug addiction, transportation, low edu. Level, literacy, decrease access to med. care, longterm, rehab)? @ -No Was there de-escalation of care discussed even if they declined (Discuss DNR or withdrawal of care, Hospice)? DNR status @ -No What co-morbidities impacted this encounter? (DM, HTN, Smoking, COPD, CAD, Cancer, CVA, ARF, Chemo, Hep., AIDS, mental health diagnosis, sleep apnea, morbid obesity)? @ -Hypertension, hyperlipidemia, coronary artery disease Was patient admitted / discharged? Hospital course, mention meds given and route, prescriptions, significant lab abnormalities, going to OR and other pertinent info. @ -The patient was seen and evaluated emergency department. Physical exam, the patient was resting in bed without any acute distress. Vital signs admission did show tachycardia and an increased temperature. Due to the nature the patient's complaints and vital sign abnormalities, sepsis workup was obtained. Laboratory work up was largely within normal limits however computed tomography scan should continued colitis of the transverse, descending and sigmoid colon. The patient did require 2 doses of pain medications in the emergency department as well as Zofran. The patient did receive 30 mL per KG of normal saline fluid per sepsis protocol. The patient did receive IV ciprofloxacin and Flagyl. Dr. Marquez was contacted regarding the patient and did ultimately accept the patient for admission here with infectious disease on consult. We agreed that there was no need for GI at this time. The patient was agreeable to this plan and was admitted in stable condition. Undiagnosed new problem with uncertain prognosis? @ -No Drug Therapy requiring intensive monitoring for toxicity (Heparin, Nitro, Insulin, Cardizem)? @ -No Were any procedures done? @ -No Diagnosis/symptom? @ -Colitis, failed outpatient management Acute, or Chronic, or Acute on Chronic? @ -Acute Uncomplicated (without systemic symptoms) or Complicated (systemic symptoms)? @ -Complicated Side effects of treatment? @ -No Exacerbation, Progression, or Severe Exacerbation? @ -No Poses a threat to life or bodily function? How? (Chest pain, USA, ID, pneumonia, PE, COPD, DKA, ARF, appy, cholecystitis, CVA, Diverticulitis, Homicidal, Suicidal, threat to staff... and all critical care pts) @ -Yes, continued colitis and infection can lead to sepsis, endorgan damage and possible . - Lab Data Result diagrams: 11/13/22 22:45 11/13/22 22:45 Lab Results 11/13/22 11/13/22 11/13/22 Range/Units 22:45 22:45 22:45 WBC 8.8 (3.8-10.6) k/uL RBC 3.90 L (4.30-5.90) m/uL Hgb 12.1 L (13.0-17.5) gm/dL Hct 36.2 L (39.0-53.0) % MCV 92.7 (80.0-100.0) fL MCH 31.0 (25.0-35.0) pg MCHC 33.4 (31.0-37.0) g/dL RDW 12.5 (11.5-15.5) % Plt Count 339 (150-450) k/uL MPV 7.6 Neutrophils % 87 % Lymphocytes % 7 % Monocytes % 4 % Eosinophils % 2 % Basophils % 0 % Neutrophils # 7.7 (1.3-7.7) k/uL Lymphocytes # 0.6 L (1.0-4.8) k/uL Monocytes # 0.4 (0-1.0) k/uL Eosinophils # 0.2 (0-0.7) k/uL Basophils # 0.0 (0-0.2) k/uL PT 10.2 (9.0-12.0) sec INR 1.0 (<1.2) APTT 24.5 (22.0-30.0) sec Sodium 136 L (137-145) mmol/L Potassium 4.0 (3.5-5.1) mmol/L Chloride 103 (98-107) mmol/L Carbon Dioxide 21 L (22-30) mmol/L Anion Gap 12 mmol/L BUN 10 (9-20) mg/dL Creatinine 0.84 (0.66-1.25) mg/dL Est GFR (CKD-EPI)AfAm >90 (>60 ml/min/1.73 sqM) Est GFR (CKD-EPI)NonAf 87 (>60 ml/min/1.73 sqM) Glucose 166 H (74-99) mg/dL Plasma Lactic Acid Ney (0.7-2.0) mmol/L Calcium 8.7 (8.4-10.2) mg/dL Total Bilirubin 0.3 (0.2-1.3) mg/dL AST 28 (17-59) U/L ALT 18 (4-49) U/L Alkaline Phosphatase 79 (38-126) U/L Total Protein 6.5 (6.3-8.2) g/dL Albumin 3.7 (3.5-5.0) g/dL Urine Color Urine Appearance (Clear) Urine pH (5.0-8.0) Ur Specific [place] (1.001-1.035) Urine Protein (Negative) Urine Glucose (UA) (Negative) Urine Ketones (Negative) Urine Blood (Negative) Urine Nitrite (Negative) Urine Bilirubin (Negative) Urine Urobilinogen (<2.0) mg/dL Ur Leukocyte Esterase (Negative) 11/13/22 11/13/22 Range/Units 23:55 23:57 WBC (3.8-10.6) k/uL RBC (4.30-5.90) m/uL Hgb (13.0-17.5) gm/dL Hct (39.0-53.0) % MCV (80.0-100.0) fL MCH (25.0-35.0) pg MCHC (31.0-37.0) g/dL RDW (11.5-15.5) % Plt Count (150-450) k/uL MPV Neutrophils % % Lymphocytes % % Monocytes % % Eosinophils % % Basophils % % Neutrophils # (1.3-7.7) k/uL Lymphocytes # (1.0-4.8) k/uL Monocytes # (0-1.0) k/uL Eosinophils # (0-0.7) k/uL Basophils # (0-0.2) k/uL PT (9.0-12.0) sec INR (<1.2) APTT (22.0-30.0) sec Sodium (137-145) mmol/L Potassium (3.5-5.1) mmol/L Chloride (98-107) mmol/L Carbon Dioxide (22-30) mmol/L Anion Gap mmol/L BUN (9-20) mg/dL Creatinine (0.66-1.25) mg/dL Est GFR (CKD-EPI)AfAm (>60 ml/min/1.73 sqM) Est GFR (CKD-EPI)NonAf (>60 ml/min/1.73 sqM) Glucose (74-99) mg/dL Plasma Lactic Acid Ney 1.5 (0.7-2.0) mmol/L Calcium (8.4-10.2) mg/dL Total Bilirubin (0.2-1.3) mg/dL AST (17-59) U/L ALT (4-49) U/L Alkaline Phosphatase (38-126) U/L Total Protein (6.3-8.2) g/dL Albumin (3.5-5.0) g/dL Urine Color Colorless Urine Appearance Clear (Clear) Urine pH 5.0 (5.0-8.0) Ur Specific [place] 1.010 (1.001-1.035) Urine Protein Negative (Negative) Urine Glucose (UA) Negative (Negative) Urine Ketones Negative (Negative) Urine Blood Negative (Negative) Urine Nitrite Negative (Negative) Urine Bilirubin Negative (Negative) Urine Urobilinogen <2.0 (<2.0) mg/dL Ur Leukocyte Esterase Negative (Negative) Disposition Clinical Impression: Colitis, Failure of outpatient treatment Disposition[facility] Condition: Stable Is patient prescribed a controlled substance at d/c from ED?: No Referrals: Jocelin Khan MD [Primary Care Provider] - 1-2 days Time of Disposition: 00:30 Decision to Admit Reason: Admit from EC Decision Date: 11/14/22 Decision Time: 00:30
[2022-11-14] MEDS: MORPHINE SULFATE 4 MG/ML SYRINGE IVP PRN ×4 (04:57→21:55)
[2022-11-14] MEDS: SODIUM CHLORIDE 0.9% 1,000 ML IV SCH ×2 (11:00→22:37)
[2022-11-14] MEDS: FAMOTIDINE 20 MG/2 ML VIAL IV SCH ×2 (13:06→21:18)
[2022-11-14] MEDS: KETOROLAC 15 MG/ML 1 ML VIAL IVP PRN (13:06)
[2022-11-14] MEDS ORDERED: KETOCONAZOLE 2% SHAMPOO 1 APPLIC/ML TOPICAL PRN (13:27)
[2022-11-14] MEDS: TIMOLOL 0.5% OPHTH DROPS 5 ML BTL BOTH EYES SCH ×2 (14:09→21:18)
[2022-11-14] MEDS: BRIMONIDINE TARTRATE 0.2% DROPS 5 ML BTL BOTH EYES SCH ×2 (14:09→21:18)
[2022-11-14] MEDS: VANCOMYCIN 125 MG CAPSULE PO SCH ×3 (14:10→21:16)
--- NOTE | 2022-11-14 15:08 | P.HPIM ---
History of Present Illness H&P Date: 11/14/22 This is a pleasant 71-year-old male who presented to the emergency department with significant abdominal pain along with fevers. Patient was seen and evaluated in the emergency department given antibiotics and sent home and was told it was some form of intestine times infection. Patient followed up with his primary care provider Dr. Khan and was prescribed Cipro and was told if symptoms continued or persisted to come to the emergency department. Patient started having increased abdominal pains with increasing fevers and multiple episodes of diarrhea and presented to the emergency department. Patient has a past medical history of coronary artery disease, angina, GERD, hyperlipidemia, h ypertension, previous myocardial infarctions, osteoarthritis, history of SVT with ablation, duodenal ulcers, chronic duodenal stricture with esophagitis and hiatal hernia along with anxiety. Patient referred he follows with Dr. Moris GRIFFIN in the outpatient setting for his continued abdominal issues. Patient also has history of anxiety and is a former smoker, denies any illicit drug use other than prescribed and denies alcohol use. Patient reports to nausea although reports has not vomited but continues with abdominal pain. Patient underwent CT abdomen and pelvis in the ER which showed findings concerning for colitis of the transverse, descending, and sigmoid colon that may be infectious or inflammatory illness with secondary mesenteric adenitis. Patient was given a dose of antibiotics in the ER and admitted with infectious disease on consult for failure of outpatient treatment for colitis. Patient reports to me this morning on exam that he has had multiple loose stools and will obtain C. diff as patient has been on a few rounds of antibiotics outpatient. Labs revealed a normal white count of 8.8, hemoglobin 12.1, sodium was 136 with a potassium of 4.0, BUN is 10 and creatinine 0.84, lactic acid is 1.5 and urinalysis was negative. EKG showed sinus rhythm with a heart rate of 82 bpm. Review Of Systems: Constitution: reports fever prior to ED arrival, no chills, no night sweats. No weight change. No weakness, fatigue or lethargy. No daytime sleepiness. EENT: No headache. No blurred vision or double vision, no loss of vision. No loss of Hearing, no ringing in the ears, no dizziness. No nasal drainage or congestion. No epistaxis. No sore throat. Lungs: No shortness of breath, cough, no sputum production. No wheezing. Cardiovascular: No chest pain, no lower extremity edema. No palpitations. No paroxysmal nocturnal dyspnea. No orthopnea. No lightheadedness or dizziness. No syncopal episodes. Abdominal: reports severeinal pain. Reports of nausea, no vomiting. Reports multiple episodes of diarrhea. No constipation. No bloody or tarry stoolrepo rts loss of appetite. Genitourinary: No dysuria, increased frequency, urgency. No urinary retention. Musculoskeletal: No myalgias. No muscle weakness, no gait dysfunction, no frequent falls. No back pain. No neck pain. reports generalized weakness Integumentary: No wounds, no lesions. No rash or pruritus. No unusual bruising. No change in hair or nails. Neurologic: No aphasia. No facial droop. No change in mentation. No head injury. No headache. No paralysis. No paresthesia. Psychiatric: No depression. No anxiety. No mood swings. Endocrine: No abnormal blood sugars. No weight change. No excessive sweating or thirst. No cold intolerance. PHYSICAL EXAMINATION: GENERAL: The patient is alert and oriented x4, Well developed, well nourished. ill-appearing, elderly appearing HEENT: Pupils are round and equally reacting to light. EOMI. no scleral icterus. No conjunctival pallor. Normocephalic, atraumatic. No pharyngeal erythema. No thyromegaly. CARDIOVASCULAR: S1 and S2 muffled PULMONARY: diminished breath sounds bilaterally with no wheezing or rhonchi noted. ABDOMEN: soft. tender on exam of the left lower and mid quadrant regions . non- distended, normoactive bowel sounds. No palpable organomegaly. MUSCULOSKELETAL: No joint swelling or deformity. EXTREMITIES: No cyanosis, clubbing, or pedal edema. NEUROLOGICAL: Gross neurological examination did not reveal any focal deficits. Diffuse weakness SKIN: No rashes. Assessment: abdominal pain secondary to colitis involving the transverse, descending, and sigmoid colon with failure of outpatient treatment Diarrhea, multiple episodes and was recently on antibiotics over the last few weeks with failure of outpatient treatment, rule out C. diff Acute dehydration secondary to diarrhea and loss of appetite Gastroesophageal reflux disease Hyperlipidemia Hypertension History of chronic duodenal stricture History of anxiety Patient reports history of agent orange exposure History of coronary artery disease GI prophylaxis DVT prophylaxis Full code Plan: Will initiate IV hydration as patient is not eating very well continues with nausea and will also start clear liquids Patient was given a dose of Levaquin and Flagyl in the ER with infectious disease on consult and will initiate Flagyl and oral Vanco has been ordered by infectious disease Patient is reporting multiple episodes of loose stools that started last night and will obtain C. diff sample as patient has been on a couple of rounds of antibiotics outpatient Continue clear liquids for now and will follow-up on repeat labs and slowly advance as tolerated once patient is feeling better Home medications reviewed and resumed Encouraged to increase activity as tolerated. The impression and plan of care has been dictated by Ayaka Lu, nurse practitioner as directed. Dr. Lilliana MD I have performed a history and examination and MDM of this patient, discussed the same with the dictator, and agree with the dictator's assessment and plan as written ,documented as a scribe. Based on total visit time, I have performed more than 50% of the visit. Any additional findings or plans will be noted. Past Medical History Past Medical History: Coronary Artery Disease (CAD), Chest Pain / Angina, Eye Disorder, GERD/Reflux, Hyperlipidemia, Hypertension, Myocardial Infarction ([place]), Osteoarthritis (OA) Additional Past Medical History / Comment(s): recent admission for nausea/vomiting/diarrhea, Neck pain, SVT with ablation, duodenal ulcers, chronic duodenal stricture, bilateral glaucoma, sinusitis, migraines, anemia, esophagitis,hiatal hernia, chronic back pain, past fx ribs/sternum Last Myocardial Infarction Date:: 1999 History of Any Multi-Drug Resistant Organisms: None Reported Past Surgical History: Cardiac Ablation, Cholecystectomy, Heart Catheterization With Stent Additional Past Surgical History / Comment(s): stent bilateral eyes 03/2018, PCI with 3 stents, sinus surgery, cataracts bilaterally with lens implants, EGDs/colonoscopies, Past Anesthesia/Blood Transfusion Reactions: No Reported Reaction Additional Past Anesthesia/Blood Transfusion Reaction / Comment(s): Pt has had past multiple transfusions without reaction. Date of Last Stent Placement:: 1999 Past Psychological History: Anxiety Additional Psychological History / Comment(s): Pt resides with his spouse. He served in the [employer]. He is independent. Smoking Status: Never smoker Past Alcohol Use History: None Reported Additional Past Alcohol Use History / Comment(s): Patient was a smoker for only a few years in his 40s. Past Drug Use History: None Reported - Past Family History Father Additional Family Medical History / Comment(s): Father at the age of 68yrs from a ruptured aortic aneurysm. Mother Additional Family Medical History / Comment(s): Mother lived into her 80's. Brother(s) Family Medical History: Cancer Additional Family Medical History / Comment(s): The patient had 3 brothers. One from colon cancer with metastatic disease to the brain. One brother at age 79 from a myocardial infarction. He has 1 brother that is alive with history of skin cancer and diabetes. Sister(s) Additional Family Medical History / Comment(s): The patient is a total of 3 sisters. One in her 80s from myocardial infarction. One sister at age 58 from coronary artery disease and also had a valvular disorder. Patient has one sister alive with diabetes and multiple other medical conditions. Patient has 2 sons and 1 daughter with no major medical problems. Medications and Allergies Home Medications Medication Instructions Recorded Confirmed Type RX: Simvastatin [Zocor] 40 mg PO HS 07/12/13 11/14/22 History RX: Dicyclomine [Bentyl] 10 mg PO TID 06/04/17 11/14/22 History RX: Losartan Potassium 50 mg PO DAILY 09/20/18 11/14/22 History RX: Metoprolol Tartrate [Lopressor] 25 mg PO BID 09/20/18 11/14/22 History RX: Ondansetron [Zofran ODT] 4 mg PO BID PRN 09/20/18 11/14/22 History RX: Escitalopram [Lexapro] 10 mg PO HS 10/06/18 11/14/22 History RX: diazePAM [Valium] 5 mg PO HS PRN 12/25/19 11/14/22 History RX: Amitriptyline HCl [Elavil] 12.5 mg PO HS 09/21/21 11/14/22 History RX: Gabapentin 800 mg PO TID 09/21/21 11/14/22 History RX: Ketoconazole 2% Shampoo 1 applic TOPICAL Q72H PRN 09/21/21 11/14/22 History [Nizoral] Brimonidine Tartrate/Timolol 1 drop BOTH EYES BID 11/14/22 11/14/22 History [Brimonidine-Timolol 0.2%-0.5%] Butalb/Acetaminophen/Caffeine 1 cap PO Q4HR PRN 11/14/22 11/14/22 History [Fioricet 50-300-40 mg Capsule] Clindamycin Phosphate [Clindagel 1 applic TOPICAL BID 11/14/22 11/14/22 History 1%] Furosemide [Lasix] 20 mg PO DAILY 11/14/22 11/14/22 History Montelukast [Singulair] 10 mg PO HS 11/14/22 11/14/22 History metroNIDAZOLE [Flagyl] 500 mg PO TID 11/14/22 11/14/22 History Allergies Allergy/AdvReac Type Severity Reaction Status Date / Time atorvastatin [From Lipitor] AdvReac MUSCLE Verified 11/14/22 09:34 CRAMPS hydrochlorothiazide AdvReac Patient Verified 11/14/22 09:34 had episode of severe hyponatremia requiring hospita ropinirole [From Requip] AdvReac Hallucinati Verified 11/14/22 09:34 ons scopolamine AdvReac Hallucinati Verified 11/14/22 09:34 ons Physical Exam Vitals: Vital Signs Temp Pulse Pulse Resp BP BP Pulse Ox 11/14/22 08:52 98.7 F 11/14/22 08:23 98.5 F 11/14/22 07:32 98.4 F 75 20 145/85 98 11/14/22 03:42 65 18 124/74 100 11/14/22 03:04 98.8 F 64 19 106/57 98 11/14/22 02:00 67 18 105/58 96 11/14/22 01:00 73 17 105/54 98 11/14/22 00:25 98.2 F 77 17 98 11/13/22 21:12 102.9 F H 105 H 20 130/73 95 Intake and Output 11/13/22 11/14/22 11/14/22 22:59 06:59 14:59 Other: Voiding Method Urinal Weight 90.718 kg 90.718 kg Results CBC & Chem 7: 11/13/22 22:45 11/13/22 22:45 Labs: Abnormal Lab Results - Last 24 Hours (Table) 11/13/22 11/13/22 Range/Units 22:45 22:45 RBC 3.90 L (4.30-5.90) m/uL Hgb 12.1 L (13.0-17.5) gm/dL Hct 36.2 L (39.0-53.0) % Lymphocytes # 0.6 L (1.0-4.8) k/uL Sodium 136 L (137-145) mmol/L Carbon Dioxide 21 L (22-30) mmol/L Glucose 166 H (74-99) mg/dL Thrombosis Risk Factor Assmnt - DVT/VTE Prophylaxis DVT/VTE Prophylaxis: Pharmacologic Prophylaxis ordered - Choose All That Apply Any of the Below Risk Factors Present?: Yes Each Factor Represents 1 point: Obesity (BMI >25) Each Risk Factor Represents 2 Points: Age 61-74 years Thrombosis Risk Factor Assessment Total Risk Factor Score: 3 Thrombosis Risk Factor Assessment Level: Moderate Risk Assessment and Plan Time with Patient: Greater than 30
[2022-11-14 15:30] VITALS: BMI 26.4
[2022-11-14] MEDS: metroNIDAZOLE-NS PMX 500 MG in SALINE 1 100ML.BAG IVPB SCH ×2 (16:49→23:46)
[2022-11-14] MEDS: GABAPENTIN 300 MG CAP PO SCH ×2 (16:49→21:16)
[2022-11-14] MEDS: DICYCLOMINE 10 MG CAP PO SCH ×2 (16:50→21:16)
[2022-11-14] MEDS: ONDANSETRON 4 MG/2 ML VIAL IVP PRN (17:44)
[2022-11-14] MEDS: MONTELUKAST 10 MG TAB PO SCH (21:16)
[2022-11-14] MEDS: PANTOPRAZOLE 40 MG/10 ML VIAL IVP SCH (21:17)
[2022-11-14] MEDS: HEPARIN SODIUM,PORCINE 5,000 UNIT/ML 1 ML VIAL SQ SCH (21:17)
[2022-11-14] MEDS: METOPROLOL TARTRATE 25 MG TAB PO SCH ×2 (21:17→22:19)
[2022-11-14] MEDS: ESCITALOPRAM 10 MG TAB PO SCH (21:17)
[2022-11-14] MEDS: NON FORMULARY DRUG (Simvastatin 40 MG Tab) PO SCH (21:19)
--- NOTE | 2022-11-14 22:06 | P.CONS ---
History of Present Illness - Reason for Consult Consult date: 11/14/22 Colitis, failed outpatient Requesting physician: Chong Lopez - Chief Complaint Diarrhea and abdominal pain x 1 week - History of Present Illness Patient is a 71-year-old male with a past medical history significant for hypertension hyperlipidemia [place] osteoarthritis reflux coronary disease has been dealing with diarrhea that has been going on for more than a week patient was evaluated for the same problem at [facility] on 11/04/2022 however the patient not very clear if was given any treatment or not patient was not admitted he did have a CT at that point we did shows evidence of colitis patient mention subsequently he was evaluated by his primary care physician and he was started on oral Cipro and mention he did have some improvement and did have almost normal stool however the diarrhea came back with multiple loose stools patient denies having any blood or mucus in the stool patient complaining of nausea but no vomiting has been complaining of abdominal pain which is mostly colicky to sharp intensity 7-8 out of 10 with no radiation patient did have a fever of 102.9 F on presentation to the hospital on arrival to the ER the patient did have a normal white count kidney function was normal liver enzymes are normal urine was negative patient did receive a dose of Levaquin and Flagyl in the ER subsequently was admitted to the hospital patient also have a CT of abdominal pelvis finding concerning for colitis of the transverse descending and sigmoid colon which may be infectious or inflammatory in this secondary mesenteric adenitis infectious disease was consulted for further management Review of Systems Positive point and negatives has been mentioned in the HPI, complete review of systems was performed and all other systems are negative Past Medical History Past Medical History: Coronary Artery Disease (CAD), Chest Pain / Angina, Eye Disorder, GERD/Reflux, Hyperlipidemia, Hypertension, Myocardial Infarction ([place]), Osteoarthritis (OA) Additional Past Medical History / Comment(s): recent admission for nausea/vomiting/diarrhea, Neck pain, SVT with ablation, duodenal ulcers, chronic duodenal stricture, bilateral glaucoma, sinusitis, migraines, anemia, esophagitis,hiatal hernia, chronic back pain, past fx ribs/sternum Last Myocardial Infarction Date:: 1999 History of Any Multi-Drug Resistant Organisms: None Reported Past Surgical History: Cardiac Ablation, Cholecystectomy, Heart Catheterization With Stent Additional Past Surgical History / Comment(s): stent bilateral eyes 03/2018, PCI with 3 stents, sinus surgery, cataracts bilaterally with lens implants, EGDs/colonoscopies, Past Anesthesia/Blood Transfusion Reactions: No Reported Reaction Additional Past Anesthesia/Blood Transfusion Reaction / Comm: Pt has had past multiple transfusions without reaction. Date of Last Stent Placement:: 1999 Past Psychological History: Anxiety Additional Psychological History / Comment(s): Pt resides with his spouse. He served in the [employer]. He is independent. Smoking Status: Never smoker Past Alcohol Use History: None Reported Additional Past Alcohol Use History / Comment(s): Patient was a smoker for only a few years in his 40s. Past Drug Use History: None Reported - Past Family History Father Additional Family Medical History / Comment(s): Father at the age of 68yrs from a ruptured aortic aneurysm. Mother Additional Family Medical History / Comment(s): Mother lived into her 80's. Brother(s) Family Medical History: Cancer Additional Family Medical History / Comment(s): The patient had 3 brothers. One from colon cancer with metastatic disease to the brain. One brother at age 79 from a myocardial infarction. He has 1 brother that is alive with history of skin cancer and diabetes. Sister(s) Additional Family Medical History / Comment(s): The patient is a total of 3 sisters. One in her 80s from myocardial infarction. One sister at age 58 from coronary artery disease and also had a valvular disorder. Patient has one sister alive with diabetes and multiple other medical conditions. Heber pittman has 2 sons and 1 daughter with no major medical problems. Medications and Allergies Home Medications Medication Instructions Recorded Confirmed Type Simvastatin [Zocor] 40 mg PO HS 07/12/13 11/14/22 History Dicyclomine [Bentyl] 10 mg PO TID 06/04/17 11/14/22 History Losartan Potassium 50 mg PO DAILY 09/20/18 11/14/22 History Metoprolol Tartrate [Lopressor] 25 mg PO BID 09/20/18 11/14/22 History Ondansetron [Zofran ODT] 4 mg PO BID PRN 09/20/18 11/14/22 History Escitalopram [Lexapro] 10 mg PO HS 10/06/18 11/14/22 History diazePAM [Valium] 5 mg PO HS PRN 12/25/19 11/14/22 History Amitriptyline HCl [Elavil] 12.5 mg PO HS 09/21/21 11/14/22 History Gabapentin 800 mg PO TID 09/21/21 11/14/22 History Ketoconazole 2% Shampoo [Nizoral] 1 applic TOPICAL Q72H PRN 09/21/21 11/14/22 History Brimonidine Tartrate/Timolol 1 drop BOTH EYES BID 11/14/22 11/14/22 History [Brimonidine-Timolol 0.2%-0.5%] Butalb/Acetaminophen/Caffeine 1 cap PO Q4HR PRN 11/14/22 11/14/22 History [Fioricet 50-300-40 mg Capsule] Clindamycin Phosphate [Clindagel 1 applic TOPICAL BID 11/14/22 11/14/22 History 1%] Furosemide [Lasix] 20 mg PO DAILY 11/14/22 11/14/22 History Montelukast [Singulair] 10 mg PO HS 11/14/22 11/14/22 History Sodium Chloride Tab 1 gm PO TID 11/14/22 11/14/22 History Acetaminophen Tab [Tylenol] 650 mg PO Q6HR PRN tab 11/21/22 Rx Amoxic-Pot Clav 875-125Mg 1 tab PO Q12HR 10 Days #20 tab 11/21/22 Rx [Augmentin 875-125] HYDROcodone/APAP 5-325MG [[place] 1 tab PO Q6HR PRN 3 Days #12 tab 11/21/22 Rx 5-325] Allergies Allergy/AdvReac Type Severity Reaction Status Date / Time atorvastatin [From Lipitor] AdvReac MUSCLE Verified 11/14/22 09:34 CRAMPS hydrochlorothiazide AdvReac Patient Verified 11/14/22 09:34 had episode of severe hyponatremia requiring hospita ropinirole [From Requip] AdvReac Hallucinati Verified 11/14/22 09:34 ons scopolamine AdvReac Hallucinati Verified 11/14/22 09:34 ons Physical Exam Vitals: Vital Signs Temp Pulse Pulse Resp BP BP Pulse Ox 11/14/22 11:07 95 11/14/22 10:08 75 11/14/22 08:52 98.7 F 11/14/22 08:23 98.5 F 11/14/22 07:32 98.4 F 75 20 145/85 98 11/14/22 03:42 65 18 124/74 100 11/14/22 03:04 98.8 F 64 19 106/57 98 11/14/22 02:00 67 18 105/58 96 11/14/22 01:00 73 17 105/54 98 11/14/22 00:25 98.2 F 77 17 98 11/13/22 21:12 102.9 F H 105 H 20 130/73 95 Intake and Output 11/13/22 11/14/22 11/14/22 22:59 06:59 14:59 Intake Total 480 Balance 480 Intake: Oral 480 Other: Voiding Method Urinal Toilet Urinal Weight 90.718 kg 90.718 kg GENERAL DESCRIPTION: Elderly male lying in bed, no distress. No tachypnea or acc essory muscle of respiration use. HEENT: Shows Pallor , no scleral icterus. Oral mucous membrane is dry. No pharyngeal erythema or thrush NECK: Trachea central, no thyromegaly. LUNGS: Unlabored breathing. Clear to auscultation anteriorly. No wheeze or crackle. HEART: S1, S2, regular rate and rhythm. No loud murmur ABDOMEN: Soft, mild tenderness , no guarding or rigidity, no organomegaly EXTREMITIES: No edema of feet. SKIN: No rash, no masses palpable. NEUROLOGICAL: The patient is awake, alert, oriented x3, mood and affect normal. Results CBC & Chem 7: 11/20/22 05:35 11/21/22 05:27 Labs: Abnormal Lab Results - Last 24 Hours (Table) 11/13/22 11/13/22 Range/Units 22:45 22:45 RBC 3.90 L (4.30-5.90) m/uL Hgb 12.1 L (13.0-17.5) gm/dL Hct 36.2 L (39.0-53.0) % Lymphocytes # 0.6 L (1.0-4.8) k/uL Sodium 136 L (137-145) mmol/L Carbon Dioxide 21 L (22-30) mmol/L Glucose 166 H (74-99) mg/dL Assessment and Plan (1) Colitis Status: Acute Code(s): K52.9 - NONINFECTIVE GASTROENTERITIS AND COLITIS, UNSPECIFIED SNOMED Code(s): 33291524 Plan: 1patient presented hospital with diarrhea abdominal pain this patient who did have evidence of fever with abnormal CT showing colitis involving the transverse descending and sigmoid colon concerning for infectious versus noninfectious colitis interestingly the patient did have a normal white count despite this extensive colitis which we will continue for go against C. difficile colitis as the patient denies any history of recent antibiotic exposure before his symptoms started and do give a history of some improvement in his symptoms with oral Cipro however keeping in mind his extensive colitis underlying infectious source such as C. difficile versus other enteric pathogen not entirely excluded. 2we will obtain stool for C. difficile and stool culture. 3we will add oral vancomycin 500 mg p.o. every 6 hours in view of the extensive colitis. Avoid antimotility agents We will follow on clinical condition and cultures to further adjust medication if needed Thank you for this consultation we will follow the patient along with you Dictation was produced using [employer] dictation software. please excuse any grammatical, word or spelling errors. Time with Patient: Greater than 30
[2022-11-15] MEDS: MORPHINE SULFATE 4 MG/ML SYRINGE IVP PRN ×2 (05:25→19:54)
[2022-11-15] MEDS: DICYCLOMINE 10 MG CAP PO SCH ×3 (09:22→21:42)
[2022-11-15] MEDS: METOPROLOL TARTRATE 25 MG TAB PO SCH ×2 (09:22→19:57)
[2022-11-15] MEDS: GABAPENTIN 300 MG CAP PO SCH ×3 (09:22→21:43)
[2022-11-15] MEDS: VANCOMYCIN 125 MG CAPSULE PO SCH ×4 (09:22→21:42)
[2022-11-15] MEDS: metroNIDAZOLE-NS PMX 500 MG in SALINE 1 100ML.BAG IVPB SCH ×3 (09:22→23:58)
[2022-11-15] MEDS: HEPARIN SODIUM,PORCINE 5,000 UNIT/ML 1 ML VIAL SQ SCH ×2 (09:22→19:53)
[2022-11-15] MEDS: PANTOPRAZOLE 40 MG/10 ML VIAL IVP SCH ×2 (09:22→19:54)
[2022-11-15] MEDS: TIMOLOL 0.5% OPHTH DROPS 5 ML BTL BOTH EYES SCH ×2 (09:23→19:56)
[2022-11-15] MEDS: BRIMONIDINE TARTRATE 0.2% DROPS 5 ML BTL BOTH EYES SCH ×2 (09:23→19:56)
[2022-11-15] MEDS: BUTALB/APAP/CAFF 50-325-40MG TAB PO PRN (09:30)
[2022-11-15 11:22] LABS: Basophils # (A) 0.05 X 10*3/uL (0.00-0.10); Basophils % (A) 0.9 %; Eosinophils # (A) 0.24 X 10*3/uL (0.04-0.35); Eosinophils % (A) 4.2 %; HCT 32.6 % (39.6-50.0); HGB 10.5 d/dL (13.0-17.0); Lymphocytes # (A) 1.69 X 10*3/uL (0.90-5.00); Lymphocytes % (A) 29.9 %; MCH 30.8 pg (27.0-32.0); MCHC 32.2 d/dL (32.0-37.0); MCV 95.6 FL (80.0-97.0); Mean Platelet Volume 9.1 FL (9.5-12.2); Monocytes # (A) 0.71 X 10*3/uL (0.20-1.00); Monocytes % (A) 12.6 %; NRBC Per 100 WBC 0 X 10*3/uL (0.00-0.01); Neutrophils # (A) 2.94 X 10*3/uL (1.80-7.70); Platelet Count 305 X 10*3/uL (140-440); RBC 3.41 X 10*6/uL (4.40-5.60); RDW 13.1 % (11.5-14.5); WBC 5.65 X 10*3/uL (4.50-10.00)
[2022-11-15 11:29] LABS: BUN/Creat Ratio 3.89 Ratio (12.00-20.00); Blood Urea Nitrogen 3.5 mg/dL (9.0-27.0); Calcium 8.4 mg/dL (8.7-10.3); Carbon Dioxide 23.6 mmol/L (21.6-31.8); Chloride 109 mmol/L (96-109); Glucose 97 mg/dL (70-110); Magnesium 1.8 mg/dL (1.5-2.4); Potassium 3.8 mmol/L (3.5-5.5); Sodium 144 mmol/L (135-145)
--- NOTE | 2022-11-15 12:58 | P.PN ---
Subjective Progress Note Date: 11/15/22 Principal diagnosis: Colitis Patient is a 71-year-old male with a past medical history significant for hypertension hyperlipidemia [place] osteoarthritis reflux coronary disease has been dealing with diarrhea that has been going on for more than a week , patient did have CT of abdominal pelvis with evidence of colitis from transverse colon to descending and sigmoid colon concerning for infectious versus inflammatory process. On today's evaluation that is11/15/2022, the patient denies any fever or any chills, the patient is breathing comfortably , the patient denies chest pain and no significant cough, the patient denies nausea and vomiting abdominal pain has decreased in intensity and diarrhea has slowed down. Patient did have a white count of 5.65 creatinine 0.9 stool for C. diff negative Objective - Vital Signs Vital signs: Vital Signs Temp 98.5 F 11/15/22 07:27 Pulse 73 11/15/22 07:27 Resp 16 11/15/22 07:27 BP 161/73 11/15/22 07:27 Pulse Ox 97 11/15/22 07:27 FiO2 Intake & Output 11/14/22 11/15/22 11/15/22 18:59 06:59 18:59 Intake Total 480 Output Total 150 Balance 330 Weight 90.718 kg Intake: Oral 480 Output: Urine 150 Other: Voiding Method Toilet Urinal Urinal # Voids 1 1 # Bowel Movements 1 - Exam GENERAL DESCRIPTION: An elderly male lying in bed in no distress RESPIRATORY SYSTEM: Unlabored breathing , decreased breath sounds at bases HEART: S1 S2 regular rate and rhythm , ABDOMEN: Soft , no tenderness EXTREMITIES: No edema feet - Labs CBC & Chem 7: 11/15/22 05:51 11/15/22 05:51 Labs: Microbiology - Last 24 Hours (Table) 11/13/22 22:45 Blood Culture - Preliminary Blood 11/13/22 22:30 Blood Culture - Preliminary Blood Assessment and Plan (1) Colitis Current Visit: Yes Status: Acute Code(s): K52.9 - NONINFECTIVE GASTROENTERITIS AND COLITIS, UNSPECIFIED SNOMED Code(s): 89686592 (2) Failure of outpatient treatment Current Visit: Yes Status: Acute Code(s): Z78.9 - OTHER SPECIFIED HEALTH STATUS SNOMED Code(s): 084141086 Plan: 1patient presented hospital with diarrhea abdominal pain this patient who did have evidence of fever with abnormal CT showing colitis involving the transverse descending and sigmoid colon concerning for infectious versus noninfectious colitis interestingly the patient did have a normal white count despite this extensive colitis which we will continue for go against C. difficile colitis as the patient denies any history of recent antibiotic exposure before his symptoms started and do give a history of some improvement in his symptoms with oral Cipro however keeping in mind his extensive colitis underlying infectious source such as C. difficile versus other enteric pathogen not entirely excluded. 2we're currently waiting for stool for C. diff PCR as well as stool culture specimen to be collected and sent to the lab 3patient to continue with vancomycin 500 mg p.o. every 6 hours along with Rocephin and Flagyl evaluated further workup to be completed, will benefit from GI evaluation for colonoscopy and biopsy Dictation was produced using [employer] dictation software. please excuse any grammatical, word or spelling errors. Time with Patient: Less than 30
[2022-11-15] MEDS ORDERED: LOPERAMIDE 2 MG CAP PO SCH (14:00)
[2022-11-15] MEDS: SODIUM CHLORIDE 0.9% 1,000 ML IV SCH (17:46)
[2022-11-15] MEDS ORDERED: MAGNESIUM SULFATE-D5W PMX 1 GM in DEXTROSE/WATER 1 100ML.BAG IVPB ONE (19:29)
[2022-11-15] MEDS ORDERED: Magnesium Replacement Protocol 1 EACH MISC MISCELLANE PRN (19:29)
--- NOTE | 2022-11-15 19:32 | P.PN ---
Subjective Progress Note Date: 11/15/22 This is a pleasant 71-year-old male who presented to the emergency department with significant abdominal pain along with fevers. Patient was seen and evaluated in the emergency department given antibiotics and sent home and was told it was some form of intestine times infection. Patient followed up with his primary care provider Dr. Khan and was prescribed Cipro and was told if symptoms continued or persisted to come to the emergency department. Patient started having increased abdominal pains with increasing fevers and multiple episodes of diarrhea and presented to the emergency department. Patient has a past medical history of coronary artery disease, angina, GERD, hyperlipidemia, hypertension, previous myocardial infarctions, osteoarthritis, history of SVT with ablation, duodenal ulcers, chronic duodenal stricture with esophagitis and hiatal hernia along with anxiety. Patient referred he follows with Dr. Moris GRIFFIN in the outpatient setting for his continued abdominal issues. Patient also has history of anxiety and is a former smoker, denies any illicit drug use other than prescribed and denies alcohol use. Patient reports to nausea although reports has not vomited but continues with abdominal pain. Patient underwent CT abdomen and pelvis in the ER which showed findings concerning for colitis of the transverse, descending, and sigmoid colon that may be infectious or inflammatory illness with secondary mesenteric adenitis. Patient was given a dose of antibiotics in the ER and admitted with infectious disease on consult for failure of outpatient treatment for colitis. Patient reports to me this morning on exam that he has had multiple loose stools and will obtain C. diff as patient has been on a few rounds of antibiotics outpatient. Labs revealed a normal white count of 8.8, hemoglobin 12.1, sodium was 136 with a potassium of 4.0, BUN is 10 and creatinine 0.84, lactic acid is 1.5 and urinalysis was negative. EKG showed sinus rhythm with a heart rate of 82 bpm. 11/15/2022 Patient is evaluated today resting in bed. He reports diarrhea has improved 2 episodes today so far and would like his diet advanced to full liquid/soft diet. He remains on IV metronidazole and IV ceftriaxone for the diarrhea. Immodium will be added. C.Dif was negative. Blood culture negative so far. Magnesium 1.8. Hemodynmically stable. Review of Systems Constitutional: Denied any fatigue denied any fever. Cardio vascular: denied any chest pain, palpitations Gastrointestinal: denied any nausea, vomiting, Reports diarrhea. Pulmonary: Denied any shortness of breath cough Neurologic denied any new focal deficits All inpatient medications were reviewed and appropriate changes in these medications as dictated in the interval history and assessment and plan. PHYSICAL EXAMINATION: GENERAL: The patient is alert and oriented x4, Well developed, well nourished. ill-appearing, elderly appearing HEENT: Pupils are round and equally reacting to light. EOMI. no scleral icterus. No conjunctival pallor. Normocephalic, atraumatic. No pharyngeal erythema. No thyromegaly. CARDIOVASCULAR: S1 and S2 muffled PULMONARY: diminished breath sounds bilaterally with no wheezing or rhonchi noted. ABDOMEN: soft. tender on exam of the left lower and mid quadrant regions . non-distended, normoactive bowel sounds. No palpable organomegaly. MUSCULOSKELETAL: No joint swelling or deformity. EXTREMITIES: No cyanosis, clubbing, or pedal edema. NEUROLOGICAL: Gross neurological examination did not reveal any focal deficits. Diffuse weakness SKIN: No rashes. Assessment: Abdominal pain secondary to colitis involving the transverse, descending, and sigmoid colon with failure of outpatient treatment Diarrhea, multiple episodes and was recently on antibiotics over the last few weeks with failure of outpatient treatment, C. Dif negative. Acute dehydration secondary to diarrhea and loss of appetite Gastroesophageal reflux disease Hyperlipidemia Hypertension History of chronic duodenal stricture History of anxiety Patient reports history of agent orange exposure History of coronary artery disease GI prophylaxis DVT prophylaxis Full code Plan: Continue on IV hydration and advanced diet as tolerated. Continue PO vancomycin, Ceftriaxone and metronidazole for the diarrhea. ID following closely. Encouraged to increase activity as tolerated. Replace magnesium and repeat labs in AM The impression and plan of care has been dictated by Lali Boateng, Nurse Practitioner as directed. Dr. Lilliana MD I have performed a history and physical examination and medical decision making of this patient, discussed the same with the dictator, and agree with the dictators assessment and plan as written, documented as a scribe. Based on total visit time, I have performed more than 50% of this visit. Objective - Vital Signs Vital signs: Vital Signs Temp 98.5 F 11/15/22 07:27 Pulse 73 11/15/22 07:27 Resp 16 11/15/22 07:27 BP 161/73 11/15/22 07:27 Pulse Ox 97 11/15/22 07:27 FiO2 Intake & Output 11/14/22 11/15/22 11/15/22 18:59 06:59 18:59 Intake Total 480 Output Total 150 Balance 330 Weight 90.718 kg Intake: Oral 480 Output: Urine 150 Other: Voiding Method Toilet Urinal Urinal # Voids 1 1 # Bowel Movements 1 - Labs CBC & Chem 7: 11/15/22 05:51 11/15/22 05:51 Labs: Microbiology - Last 24 Hours (Table) 11/13/22 22:45 Blood Culture - Preliminary Blood 11/13/22 22:30 Blood Culture - Preliminary Blood Assessment and Plan Time with Patient: Less than 30
[2022-11-15] MEDS: ESCITALOPRAM 10 MG TAB PO SCH (19:53)
[2022-11-15] MEDS: MONTELUKAST 10 MG TAB PO SCH (19:53)
[2022-11-15] MEDS: ONDANSETRON 4 MG/2 ML VIAL IVP PRN (19:54)
[2022-11-15] MEDS: NON FORMULARY DRUG (Simvastatin 40 MG Tab) PO SCH (19:57)
[2022-11-16] MEDS: diazePAM 5 MG TAB PO PRN (00:08)
[2022-11-16] MEDS: MORPHINE SULFATE 4 MG/ML SYRINGE IVP PRN ×3 (01:39→21:54)
[2022-11-16] MEDS: DICYCLOMINE 10 MG CAP PO SCH ×3 (09:42→21:02)
[2022-11-16] MEDS: PANTOPRAZOLE 40 MG/10 ML VIAL IVP SCH ×2 (09:43→21:04)
[2022-11-16] MEDS: VANCOMYCIN 125 MG CAPSULE PO SCH (09:43)
[2022-11-16] MEDS: HEPARIN SODIUM,PORCINE 5,000 UNIT/ML 1 ML VIAL SQ SCH ×2 (09:43→21:04)
[2022-11-16] MEDS: SODIUM CHLORIDE 0.9% 1,000 ML IV SCH (09:43)
[2022-11-16] MEDS: METOPROLOL TARTRATE 25 MG TAB PO SCH ×2 (09:43→21:02)
[2022-11-16] MEDS: GABAPENTIN 300 MG CAP PO SCH ×5 (09:43→21:02)
[2022-11-16] MEDS: metroNIDAZOLE-NS PMX 500 MG in SALINE 1 100ML.BAG IVPB SCH ×2 (09:43→15:47)
[2022-11-16] MEDS: BRIMONIDINE TARTRATE 0.2% DROPS 5 ML BTL BOTH EYES SCH ×2 (09:44→21:05)
[2022-11-16] MEDS: TIMOLOL 0.5% OPHTH DROPS 5 ML BTL BOTH EYES SCH ×2 (09:44→21:05)
[2022-11-16] MEDS: BUTALB/APAP/CAFF 50-325-40MG TAB PO PRN ×3 (09:59→21:20)
[2022-11-16] MEDS: ACETAMINOPHEN TAB 325 MG TAB PO PRN (09:59)
[2022-11-16 10:36] LABS: BUN/Creat Ratio <4.38 Ratio (12.00-20.00); Blood Urea Nitrogen <3.5 mg/dL (9.0-27.0); Calcium 8.3 mg/dL (8.7-10.3); Carbon Dioxide 24.1 mmol/L (21.6-31.8); Chloride 107 mmol/L (96-109); Glucose 99 mg/dL (70-110); Magnesium 2.2 mg/dL (1.5-2.4); Potassium 3.6 mmol/L (3.5-5.5); Sodium 141 mmol/L (135-145)
[2022-11-16] MEDS: SODIUM CHLORIDE TAB 1 GM TAB PO SCH ×3 (11:15→21:02)
[2022-11-16] MEDS: FUROSEMIDE 20 MG TAB PO SCH (11:15)
[2022-11-16] MEDS: LOSARTAN 50 MG TAB PO SCH (11:16)
--- NOTE | 2022-11-16 11:34 | P.PN ---
Subjective Progress Note Date: 11/16/22 Principal diagnosis: Colitis Patient is a 71-year-old male with a past medical history significant for hypertension hyperlipidemia [place] osteoarthritis reflux coronary disease has been dealing with diarrhea that has been going on for more than a week , patient did have CT of abdominal pelvis with evidence of colitis from transverse colon to descending and sigmoid colon concerning for infectious versus inflammatory process. On today's evaluation that is 11/16/2022, the patient remains to be afebrile, the patient is breathing comfortably on room air , the patient denies chest pain or cough , the patient denies nausea or vomiting , patient abdominal pain has decreased in intensity and diarrhea has slowed down. Patient did have a white count of 5.65 as of 11/15/2022 creatinine 0.8 stool for C. diff EIA negative, stool for C. diff PCR was canceled by the lab, stool cultures pending Objective - Vital Signs Vital signs: Vital Signs Temp 98.8 F 11/16/22 06:55 Pulse 64 11/16/22 06:55 Resp 16 11/16/22 06:55 BP 148/75 11/16/22 06:55 Pulse Ox 95 11/16/22 06:55 FiO2 Intake & Output 11/15/22 11/16/22 11/16/22 18:59 06:59 18:59 Output Total 300 Balance -300 Output: Urine 300 Other: Voiding Method Urinal # Voids 2 - Exam GENERAL DESCRIPTION: An elderly male lying in bed in no distress RESPIRATORY SYSTEM: Unlabored breathing , decreased breath sounds at bases HEART: S1 S2 regular rate and rhythm , ABDOMEN: Soft , no tenderness EXTREMITIES: No edema feet - Labs CBC & Chem 7: 11/15/22 05:51 11/16/22 05:21 Labs: Abnormal Lab Results - Last 24 Hours (Table) 11/15/22 11/15/22 Range/Units 05:51 05:51 RBC 3.41 L (4.40-5.60) X 10*6/uL Hgb 10.5 L (13.0-17.0) d/dL Hct 32.6 L (39.6-50.0) % MPV 9.1 L (9.5-12.2) FL BUN 3.5 L (9.0-27.0) mg/dL BUN/Creatinine Ratio 3.89 L (12.00-20.00) Ratio Calcium 8.4 L (8.7-10.3) mg/dL Microbiology - Last 24 Hours (Table) 11/13/22 22:45 Blood Culture - Preliminary Blood 11/13/22 22:30 Blood Culture - Preliminary Blood Assessment and Plan (1) Colitis Current Visit: Yes Status: Acute Code(s): K52.9 - NONINFECTIVE GASTROENTERITIS AND COLITIS, UNSPECIFIED SNOMED Code(s): 60226416 (2) Failure of outpatient treatment Current Visit: Yes Status: Acute Code(s): Z78.9 - OTHER SPECIFIED HEALTH STATUS SNOMED Code(s): 270326949 Plan: 1patient presented hospital with diarrhea abdominal pain this patient who did have evidence of fever with abnormal CT showing colitis involving the transverse descending and sigmoid colon concerning for infectious versus noninfectious colitis interestingly the patient did have a normal white count despite this extensive colitis which we will continue for go against C. difficile colitis as the patient denies any history of recent antibiotic exposure before his symptoms started and do give a history of some improvement in his symptoms with oral Cipro however keeping in mind his extensive colitis underlying infectious source such as C. difficile versus other enteric pathogen not entirely excluded. 2 stool for C. diff PCR was canceled by the lab as well as stool culture specimen to be collected and sent to the lab 3we will discontinue vancomycin 500 mg p.o. every 6 hours as stool for C. diff EIA was negative and PCR was canceled by the lab, however continue with Rocephin and Flagyl and monitor clinical course closely will benefit from GI evaluation for colonoscopy and biopsy Dictation was produced using [employer] dictation software. please excuse any gramma tical, word or spelling errors. Time with Patient: Less than 30
--- NOTE | 2022-11-16 14:32 | P.PN ---
Subjective Progress Note Date: 11/16/22 This is a pleasant 71-year-old male who presented to the emergency department with significant abdominal pain along with fevers. Patient was seen and evaluated in the emergency department given antibiotics and sent home and was told it was some form of intestine times infection. Patient followed up with his primary care provider Dr. Khan and was prescribed Cipro and was told if symptoms continued or persisted to come to the emergency department. Patient started having increased abdominal pains with increasing fevers and multiple episodes of diarrhea and presented to the emergency department. Patient has a past medical history of coronary artery disease, angina, GERD, hyperlipidemia, hypertension, previous myocardial infarctions, osteoarthritis, history of SVT with ablation, duodenal ulcers, chronic duodenal stricture with esophagitis and hiatal hernia along with anxiety. Patient referred he follows with Dr. Moris GRIFFIN in the outpatient setting for his continued abdominal issues. Patient also has history of anxiety and is a former smoker, denies any illicit drug use other than prescribed and denies alcohol use. Patient reports to nausea although reports has not vomited but continues with abdominal pain. Patient underwent CT abdomen and pelvis in the ER which showed findings concerning for colitis of the transverse, descending, and sigmoid colon that may be infectious or inflammatory illness with secondary mesenteric adenitis. Patient was given a dose of antibiotics in the ER and admitted with infectious disease on consult for failure of outpatient treatment for colitis. Patient reports to me this morning on exam that he has had multiple loose stools and will obtain C. diff as patient has been on a few rounds of antibiotics outpatient. Labs revealed a normal white count of 8.8, hemoglobin 12.1, sodium was 136 with a potassium of 4.0, BUN is 10 and creatinine 0.84, lactic acid is 1.5 and urinalysis was negative. EKG showed sinus rhythm with a heart rate of 82 bpm. 11/15/2022 Patient is evaluated today resting in bed. He reports diarrhea has improved 2 episodes today so far and would like his diet advanced to full liquid/soft diet. He remains on IV metronidazole and IV ceftriaxone for the diarrhea. Immodium will be added. C.Dif was negative. Blood culture negative so far. Magnesium 1.8. Hemodynmically stable. 11/16/2022 Patient is evaluated today on the medical floor. He is continuing to have loose stools multiple episodes. Pending C.diff PCR. Remains on IV ceftriaxone and IV flagyl. Labs are stable today. Diet was increased to low fiber, patient is tolerating. The rest of his home medications have been resumed he is taken off the iv fluids and given oral lasix. His lower extremities having increasing edema. Review of Systems Constitutional: Denied any fatigue denied any fever. Cardio vascular: denied any chest pain, palpitations Gastrointestinal: denied any nausea, vomiting, Reports diarrhea. Pulmonary: Denied any shortness of breath cough Neurologic denied any new focal deficits All inpatient medications were reviewed and appropriate changes in these medications as dictated in the interval history and assessment and plan. PHYSICAL EXAMINATION: GENERAL: The patient is alert and oriented x4, Well developed, well nourished. ill-appearing, elderly appearing HEENT: Pupils are round and equally reacting to light. EOMI. no scleral icterus. No conjunctival pallor. Normocephalic, atraumatic. No pharyngeal erythema. No thyromegaly. CARDIOVASCULAR: S1 and S2 muffled PULMONARY: diminished breath sounds bilaterally with no wheezing or rhonchi noted. ABDOMEN: soft. tender on exam of the left lower and mid quadrant regions . non- distended, normoactive bowel sounds. No palpable organomegaly. MUSCULOSKELETAL: No joint swelling or deformity. EXTREMITIES: No cyanosis, clubbing, or pedal edema. NEUROLOGICAL: Gross neurological examination did not reveal any focal deficits. Diffuse weakness SKIN: No rashes. Assessment: Abdominal pain secondary to colitis involving the transverse, descending, and sigmoid colon with failure of outpatient treatment Diarrhea, multiple episodes and was recently on antibiotics over the last few weeks with failure of outpatient treatment, C. Dif negative. Acute dehydration secondary to diarrhea and loss of appetite Gastroesophageal reflux disease Hyperlipidemia Hypertension History of chronic duodenal stricture History of anxiety Patient reports history of agent orange exposure History of coronary artery disease GI prophylaxis DVT prophylaxis Full code Plan: Continue on low fiber diet and stop IV fluids Resumed on oral lasix Continue PO vancomycin, Ceftriaxone and Metronidazole for the diarrhea. ID following closely. Check C.Dif for PCR. Encouraged to increase activity as tolerated. The impression and plan of care has been dictated by Lali Boateng, Nurse Practitioner as directed. Dr. Lilliana MD I have performed a history and physical examination and medical decision making of this patient, discussed the same with the dictator, and agree with the dictators assessment and plan as written, documented as a scribe. Based on total visit time, I have performed more than 50% of this visit. Objective - Vital Signs Vital signs: Vital Signs Temp 98.0 F 11/16/22 11:13 Pulse 60 11/16/22 11:13 Resp 16 11/16/22 11:13 BP 118/67 11/16/22 11:13 Pulse Ox 93 L 11/16/22 11:13 FiO2 Intake & Output 11/15/22 11/16/22 11/16/22 18:59 06:59 18:59 Output Total 300 Balance -300 Output: Urine 300 Other: Voiding Method Urinal # Voids 2 - Labs CBC & Chem 7: 11/15/22 05:51 11/16/22 05:21 Labs: Abnormal Lab Results - Last 24 Hours (Table) 11/16/22 Range/Units 05:21 BUN <3.5 L (9.0-27.0) mg/dL BUN/Creatinine Ratio <4.38 L (12.00-20.00) Ratio Calcium 8.3 L (8.7-10.3) mg/dL Microbiology - Last 24 Hours (Table) 11/13/22 22:45 Blood Culture - Preliminary Blood 11/13/22 22:30 Blood Culture - Preliminary Blood Assessment and Plan Time with Patient: Less than 30
[2022-11-16] MEDS ORDERED: BENZOCAINE/MENTHOL LOZENG 1 EACH LOZENGE MUCOUS MEM PRN (14:52)
[2022-11-16] MEDS: guaiFENesin SYRUP 100MG/5ML 200 MG/10 ML CUP PO PRN (15:45)
[2022-11-16] MEDS: ONDANSETRON 4 MG/2 ML VIAL IVP PRN (18:39)
[2022-11-16] MEDS: NON FORMULARY DRUG (Simvastatin 40 MG Tab) PO SCH (21:01)
[2022-11-16] MEDS: MONTELUKAST 10 MG TAB PO SCH (21:02)
[2022-11-16] MEDS: AMITRIPTYLINE HCL 25 MG TAB PO SCH (21:02)
[2022-11-16] MEDS: ESCITALOPRAM 10 MG TAB PO SCH (21:02)
[2022-11-17] MEDS: metroNIDAZOLE-NS PMX 500 MG in SALINE 1 100ML.BAG IVPB SCH ×3 (00:16→15:28)
[2022-11-17] MEDS: ACETAMINOPHEN TAB 325 MG TAB PO PRN ×2 (01:45→08:19)
[2022-11-17] MEDS: MORPHINE SULFATE 4 MG/ML SYRINGE IVP PRN (03:10)
[2022-11-17] MEDS: HEPARIN SODIUM,PORCINE 5,000 UNIT/ML 1 ML VIAL SQ SCH ×2 (08:13→20:09)
[2022-11-17] MEDS: PANTOPRAZOLE 40 MG/10 ML VIAL IVP SCH ×2 (08:13→20:10)
[2022-11-17] MEDS: FUROSEMIDE 20 MG TAB PO SCH (08:14)
[2022-11-17] MEDS: METOPROLOL TARTRATE 25 MG TAB PO SCH ×2 (08:14→21:28)
[2022-11-17] MEDS: SODIUM CHLORIDE TAB 1 GM TAB PO SCH ×3 (08:14→20:08)
[2022-11-17] MEDS: GABAPENTIN 300 MG CAP PO SCH ×3 (08:14→20:08)
[2022-11-17] MEDS: LOSARTAN 50 MG TAB PO SCH (08:14)
[2022-11-17] MEDS: DICYCLOMINE 10 MG CAP PO SCH ×3 (08:14→20:08)
[2022-11-17] MEDS: KETOROLAC 15 MG/ML 1 ML VIAL IVP PRN ×2 (08:57→15:28)
--- NOTE | 2022-11-17 09:41 | XR ---
EXAMINATION TYPE: XR chest 1V portable DATE OF EXAM: 11/17/2022 9:36 AM CLINICAL INDICATION:Male, 71 years old with history of short of breath; COMPARISON: Chest radiographs from is adjacent 09/21/2021 TECHNIQUE: XR chest 1V portable Frontal view of the chest. FINDINGS: Lungs/Pleura: There is no evidence of pleural effusion, focal consolidation, or pneumothorax. Pulmonary vascularity: Unremarkable. Heart/mediastinum: Cardiomediastinal silhouette is unremarkable. Musculoskeletal: No acute osseous pathology. IMPRESSION: Low lung volumes with a generalized hazy appearance which could represent atelectasis versus pulmonar y edema correlate with serum BNP.
[2022-11-17 10:52] LABS: Basophils # (A) 0.05 X 10*3/uL (0.00-0.10); Basophils % (A) 0.5 %; Eosinophils # (A) 0.11 X 10*3/uL (0.04-0.35); HCT 32.2 % (39.6-50.0); HGB 10.6 d/dL (13.0-17.0); Lymphocytes # (A) 1.68 X 10*3/uL (0.90-5.00); Lymphocytes % (A) 15.3 %; MCH 30.5 pg (27.0-32.0); MCHC 32.9 d/dL (32.0-37.0); MCV 92.8 FL (80.0-97.0); Mean Platelet Volume 9.4 FL (9.5-12.2); Monocytes # (A) 1.05 X 10*3/uL (0.20-1.00); Monocytes % (A) 9.6 %; NRBC Per 100 WBC 0 X 10*3/uL (0.00-0.01); Neutrophils # (A) 8.06 X 10*3/uL (1.80-7.70); Neutrophils % (A) 73.2 %; Platelet Count 293 X 10*3/uL (140-440); RBC 3.47 X 10*6/uL (4.40-5.60); RDW 12.8 % (11.5-14.5); WBC 10.99 X 10*3/uL (4.50-10.00)
[2022-11-17] MEDS: BRIMONIDINE TARTRATE 0.2% DROPS 5 ML BTL BOTH EYES SCH ×2 (11:09→20:09)
[2022-11-17] MEDS: TIMOLOL 0.5% OPHTH DROPS 5 ML BTL BOTH EYES SCH ×2 (11:09→20:09)
[2022-11-17 11:10] LABS: ALT 16 U/L (10-49); AST 19 U/L (14-35); Albumin 3.7 d/dL (3.8-4.9); Albumin/Globulin Ratio 1.76 Ratio (1.60-3.17); Alkaline Phosphatase 86 U/L (41-126); BUN/Creat Ratio <3.89 Ratio (12.00-20.00); Blood Urea Nitrogen <3.5 mg/dL (9.0-27.0); Calcium 8.7 mg/dL (8.7-10.3); Carbon Dioxide 23.9 mmol/L (21.6-31.8); Chloride 105 mmol/L (96-109); Globulin 2.1 d/dL (1.6-3.3); Glucose 112 mg/dL (70-110); Potassium 3.3 mmol/L (3.5-5.5); Sodium 141 mmol/L (135-145); Total Bilirubin 0.3 mg/dL (0.3-1.2); Total Protein 5.8 d/dL (6.2-8.2)
[2022-11-17] MEDS: IOPAMIDOL CONTRAST (ORAL USE) VIAL PO PRN ×2 (12:37→13:33)
--- NOTE | 2022-11-17 12:45 | P.PN ---
Subjective Progress Note Date: 11/17/22 Principal diagnosis: Colitis Patient is a 71-year-old male with a past medical history significant for hypertension hyperlipidemia CT osteoarthritis reflux coronary disease has been dealing with diarrhea that has been going on for more than a week , patient did have CT of abdominal pelvis with evidence of colitis from transverse colon to descending and sigmoid colon concerning for infectious versus inflammatory process. On today's evaluation that is 11/17/2022, the patient did spike a fever last night and this morning, I was not notified patient fever down to 99.7 this morning, patient is lethargic but arousable and is breathing comfortably on room air. Denies having any chest pain shortness of breath or cough patient denies any further nausea or vomiting no abdominal pain and no diarrhea has been reported last night or this morning per the nursing staff Patient white count is slightly up at 10.99, creatinine 0.9 stool for C. diff PCR negative influenza RSV and covid test negative, patient chest x-ray with low lung volumes generalized hazy appearance Objective - Vital Signs Vital signs: Vital Signs Temp 100.6 F H 11/17/22 09:42 Pulse 102 H 11/17/22 06:55 Resp 18 11/17/22 06:55 BP 166/79 11/17/22 06:55 Pulse Ox 90 L 11/17/22 06:55 FiO2 Intake & Output 11/16/22 11/17/22 11/17/22 18:59 06:59 18:59 Other: Voiding Method Urinal # Voids 2 3 - Exam GENERAL DESCRIPTION: An elderly male lying in bed in no distress RESPIRATORY SYSTEM: Unlabored breathing , decreased breath sounds at bases HEART: S1 S2 regular rate and rhythm , ABDOMEN: Soft , no tenderness EXTREMITIES: No edema feet - Labs CBC & Chem 7: 11/17/22 06:13 11/17/22 06:13 Labs: Abnormal Lab Results - Last 24 Hours (Table) 11/17/22 Range/Units 06:13 WBC 10.99 H (4.50-10.00) X 10*3/uL RBC 3.47 L (4.40-5.60) X 10*6/uL Hgb 10.6 L (13.0-17.0) d/dL Hct 32.2 L (39.6-50.0) % MPV 9.4 L (9.5-12.2) FL Neutrophils # 8.06 H (1.80-7.70) X 10*3/uL Monocytes # 1.05 H (0.20-1.00) X 10*3/uL Microbiology - Last 24 Hours (Table) 11/13/22 22:45 Blood Culture - Preliminary Blood 11/13/22 22:30 Blood Culture - Preliminary Blood Assessment and Plan (1) Colitis Current Visit: Yes Status: Acute Code(s): K52.9 - NONINFECTIVE GASTROENTERITIS AND COLITIS, UNSPECIFIED SNOMED Code(s): 99117221 (2) Failure of outpatient treatment Current Visit: Yes Status: Acute Code(s): Z78.9 - OTHER SPECIFIED HEALTH STATUS SNOMED Code(s): 326629541 Plan: 1patient presented hospital with diarrhea abdominal pain this patient who did have evidence of fever with abnormal CT showing colitis involving the transverse descending and sigmoid colon concerning for infectious versus noninfectious colitis interestingly the patient did have a normal white count despite this extensive colitis which we will continue for go against C. difficile colitis as the patient denies any history of recent antibiotic exposure before his symptoms started and do give a history of some improvement in his symptoms with oral Cipro however keeping in mind his extensive colitis underlying infectious source such as C. difficile versus other enteric pathogen not entirely excluded. 2 stool for C. diff PCR came back negative 3patient did have a new fever with a question of possible pneumonia versus worsening of his colitis blood culture has been obtained we will obtain a CT of abdominal pelvis to follow-up on the colitis and will better evaluate bilateral lower lung field and monitor his clinical course closely, continue with Josie and Nestor Dictation was produced using [employer] dictation software. please excuse any grammatical, word or spelling errors. Time with Patient: Greater than 30
[2022-11-17 13:09] LABS: Appearance,Urine Clear (Clear); Bilirubin,Urine Negative (Negative); Blood,Urine Negative (Negative); Color,Urine Colorless; Glucose,Urine (UA) Negative (Negative); Ketones,Urine Negative (Negative); Leukocyte Esterase,Urine Negative (Negative); Nitrite,Urine Negative (Negative); Protein,Urine Negative (Negative); Specific Gravity,Urine 1.006 (1.001-1.035); Urobilinogen,Urine <2.0 mg/dL (<2.0)
[2022-11-17] MEDS ORDERED: POTASSIUM CHLORIDE ER 20 MEQ TAB.ER PO STA (13:32)
--- NOTE | 2022-11-17 14:27 | CT ---
EXAMINATION TYPE: CT abdomen pelvis w con DATE OF EXAM: 11/17/2022 COMPARISON: 11/13/2022 HISTORY: abdominal pain, fever CT DLP: 1508 mGycm CONTRAST: CT scan of the abdomen and pelvis is performed with Oral Contrast and with IV Contrast, patient injec tiff with 100 mL of Isovue 370. FINDINGS: LUNG BASES-: No visible nodule. No infiltrate. Small basilar pleural effusions and mild compressive atelectasis. LIVER/GB: Gallbladder surgically absent. No space occupying hepatic lesion. Biliary tree is of nor mal caliber. PANCREAS: No inflammation. No distinct mass. SPLEEN: No splenic enlargement. No lesion seen. ADRENALS: No nodule. No thickening. KIDNEYS/BLADDER: No hydronephrosis. No nephrolithiasis. No distinct solid renal mass. Left parape lvic renal cyst measuring 4.1 cm. Right renal cortical cyst measures 2.0 cm. Urinary bladder grossly unremarkable. BOWEL: There is borderline thickening of the appendix at 6.2 mm however there is mild surrounding str anabel attenuation. Very mild acute appendicitis is difficult to exclude. Normal bowel caliber. Previ ously noted colonic wall thickening has improved. GENITAL ORGANS: Prostate gland enlargement noted. LYMPH NODES: No greater than 1cm abdominal or pelvic lymph nodes are appreciated. AORTA: No significant abnormality. OSSEOUS STRUCTURES: No significant abnormality is seen. OTHER: No significant additional abnormality is seen. IMPRESSION: 1. There is borderline thickening of the appendix at 6.2 mm however there is mild surrounding strandy attenuation. Very mild acute appendicitis is difficult to exclude.
[2022-11-17] MEDS: ONDANSETRON 4 MG/2 ML VIAL IVP PRN ×2 (15:28→22:54)
[2022-11-17] MEDS ORDERED: LACTATED RINGERS 1,000 ML IV ONE (17:05)
[2022-11-17] MEDS ORDERED: SUCCINYLCHOLINE CHLORIDE 200 MG/10 ML VIAL IV ONE (17:18)
[2022-11-17] MEDS ORDERED: fentaNYL (PF) 50 MCG/ML 2 ML AMP ONE (17:18)
[2022-11-17] MEDS ORDERED: WATER FOR INJECTION, STERILE 10 ML VIAL IV ONE (17:18)
[2022-11-17] MEDS ORDERED: GLYCOPYRROLATE 0.2 MG/ML 2 ML VIAL ONE (17:18)
[2022-11-17] MEDS ORDERED: ePHEDrine 50 MG/ML 1 ML VIAL ONE (17:18)
[2022-11-17] MEDS ORDERED: ROCURONIUM 10 MG/ML (5 ML VIAL) IV ONE (17:18)
[2022-11-17] MEDS ORDERED: NEOSTIGMINE 1 MG/ML 10 ML VIAL ONE (17:18)
[2022-11-17] MEDS ORDERED: PROPOFOL 10 MG/ML 20 ML VIAL IV ONE (17:18)
[2022-11-17] MEDS ORDERED: BUPIVACAINE (PF) 0.25% 30 ML VIAL SQ ONE (17:44)
--- NOTE | 2022-11-17 18:16 | P.OP ---
Date of Procedure: 11/17/22 Procedure(s) Performed: PREOPERATIVE DIAGNOSIS: Acute appendicitis POSTOPERATIVE DIAGNOSIS: Same PROCEDURE: Laparoscopic appendectomy SURGEON: Angeline EBL: 5 mL ANESTHESIA: General COMPLICATIONS: None OPERATIVE PROCEDURE: The patient was brought and placed on the operating table in the supine position. The patient was placed under general anesthesia. The abdomen was prepped and draped in the usual sterile fashion. A small vertical infraumbilical incision was made. The fascia was retracted anteriorly with Felipa forceps. The Veress needle was advanced into the peritoneal cavity. The saline drop test was normal. Insufflation took place to 15 mmHg. A 5 mm trocar was then placed. An additional 5 mm suprapubic trocar was placed under direct visualization as well as a 12 mm left lower quadrant trocar under direct visualization. The visualized small bowel and colon appeared normal. The appendix was inspected. It was mildly inflamed. The mesoappendix was dissected. The base of the appendix was divided using a linear 45 mm intestinal stapler. The mesentery itself was divided using LigaSure. The area was then irrigated. No further purulence or bleeding was seen. The appendix was brought out of the peritoneal cavity through the left lower quadrant trocar site within the trocar itself. The fascia at the 12 mm site was closed using a Cyrus- Meera 0 Vicryl stitch. The skin at all 3 sites was closed using 4-0 Monocryl sutures. Skin glue was then applied. DISPOSITION: Stable to recovery room
[2022-11-17] MEDS: ESCITALOPRAM 10 MG TAB PO SCH (20:08)
[2022-11-17] MEDS: MONTELUKAST 10 MG TAB PO SCH (20:08)
[2022-11-17] MEDS: HYDROmorphone 1 MG/ML 1 ML SYRINGE IVP PRN (21:01)
[2022-11-17] MEDS: NON FORMULARY DRUG (Simvastatin 40 MG Tab) PO SCH (22:44)
[2022-11-17] MEDS: diazePAM 5 MG TAB PO PRN (22:50)
[2022-11-17] MEDS: AMITRIPTYLINE HCL 25 MG TAB PO SCH (22:51)
--- NOTE | 2022-11-17 23:33 | P.PN ---
Subjective Progress Note Date: 11/17/22 This is a pleasant 71-year-old male who presented to the emergency department with significant abdominal pain along with fevers. Patient was seen and evaluated in the emergency department given antibiotics and sent home and was told it was some form of intestine times infection. Patient followed up with his primary care provider Dr. Khan and was prescribed Cipro and was told if symptoms continued or persisted to come to the emergency department. Patient started having increased abdominal pains with increasing fevers and multiple episodes of diarrhea and presented to the emergency department. Patient has a past medical history of coronary artery disease, angina, GERD, hyperlipidemia, hypertension, previous myocardial infarctions, osteoarthritis, history of SVT with ablation, duodenal ulcers, chronic duodenal stricture with esophagitis and hiatal hernia along with anxiety. Patient referred he follows with Dr. Moris GRIFFIN in the outpatient setting for his continued abdominal issues. Patient also has history of anxiety and is a former smoker, denies any illicit drug use other than prescribed and denies alcohol use. Patient reports to nausea although reports has not vomited but continues with abdominal pain. Patient underwent CT abdomen and pelvis in the ER which showed findings concerning for colitis of the transverse, descending, and sigmoid colon that may be infectious or inflammatory illness with secondary mesenteric adenitis. Patient was given a dose of antibiotics in the ER and admitted with infectious disease on consult for failure of outpatient treatment for colitis. Patient reports to me this morning on exam that he has had multiple loose stools and will obtain C. diff as patient has been on a few rounds of antibiotics outpatient. Labs revealed a normal white count of 8.8, hemoglobin 12.1, sodium was 136 with a potassium of 4.0, BUN is 10 and creatinine 0.84, lactic acid is 1.5 and urinalysis was negative. EKG showed sinus rhythm with a heart rate of 82 bpm. 11/15/2022 Patient is evaluated today resting in bed. He reports diarrhea has improved 2 episodes today so far and would like his diet advanced to full liquid/soft diet. He remains on IV metronidazole and IV ceftriaxone for the diarrhea. Immodium will be added. C.Dif was negative. Blood culture negative so far. Magnesium 1.8. Hemodynmically stable. 11/16/2022 Patient is evaluated today on the medical floor. He is continuing to have loose stools multiple episodes. Pending C.diff PCR. Remains on IV ceftriaxone and IV flagyl. Labs are stable today. Diet was increased to low fiber, patient is tolerating. The rest of his home medications have been resumed he is taken off the iv fluids and given oral lasix. His lower extremities having increasing edema. 11/17/2022 Patient is seen in follow-up today continues to have loose stools with abdominal pain. Patient is reporting pain in the lower abdomen along with right lower quadrant. Infectious disease following an ordering CT abdomen which is pending at this time. Patient continues on antibiotics and maintained on oral antibiotics for C. diff. Patient continues to have fevers and not feeling well. Patient reports diarrhea is improving but abdominal pain persists. [place] chest pain or shortness of breath. Patient's lung sounds congested on exam will add chest x-ray. Patient continues to have nausea with no vomiting and not tolerating much oral intake. Review of Systems Constitutional: Reports of fatigue and having continued fevers throughout the night Cardio vascular: denied any chest pain, palpitations Gastrointestinal: Reports nausea, no vomiting, Reports diarrhea that has slightly improved. Pulmonary: Denied any shortness of breath, cough Neurologic denied any new focal deficits, reports feeling generalized weakness All inpatient medications were reviewed and appropriate changes in these medications as dictated in the interval history and assessment and plan. PHYSICAL EXAMINATION: GENERAL: The patient is alert and oriented x4, Well developed, well nourished. ill-appearing, elderly appearing HEENT: Pupils are round and equally reacting to light. EOMI. no scleral icterus. No conjunctival pallor. Normocephalic, atraumatic. No pharyngeal erythema. No thyromegaly. CARDIOVASCULAR: S1 and S2 muffled PULMONARY: diminished breath sounds bilaterally with no wheezing , faint crackles at the bases noted. ABDOMEN: soft. tender on exam of the right lower and mid quadrant regions . non-distended, normoactive bowel sounds. No palpable organomegaly. MUSCULOSKELETAL: No joint swelling or deformity. EXTREMITIES: No cyanosis, clubbing, or pedal edema. NEUROLOGICAL: Gross neurological examination did not reveal any focal deficits. Diffuse weakness SKIN: No rashes. Assessment: Abdominal pain secondary to colitis involving the transverse, descending, and sigmoid colon with failure of outpatient treatment Diarrhea, multiple episodes and was recently on antibiotics over the last few we eks with failure of outpatient treatment, C. Dif negative. Acute dehydration secondary to diarrhea and loss of appetite Fevers with right lower quadrant tenderness, acute appendicitis Gastroesophageal reflux disease Hyperlipidemia Hypertension History of chronic duodenal stricture History of anxiety Patient reports history of agent orange exposure History of coronary artery disease GI prophylaxis DVT prophylaxis Full code Plan: Patient is continued on antibiotics with infectious disease following including oral Vanco. Patient continues to have right lower quadrant tenderness along with abdominal pain and is having fevers. CT abdomen was ordered showing concerns for acute appendicitis and general surgery consulted for input recommendations Patient having some congested cough, BNP ordered along with chest x-ray Continue on low fiber diet , will make nothing by mouth Resumed on oral lasix C. diff was negative Patient is going for surgery and will await surgical report The impression and plan of care has been dictated by Ayaka Lu, Nurse Practitioner as directed. Dr. Lilliana MD I have performed a history and examination and MDM of this patient, discussed the same with the dictator, and agree with the dictator's assessment and plan as written ,documented as a scribe. Based on total visit time, I have performed more than 50% of the visit. Objective - Vital Signs Vital signs: Vital Signs Temp 99.7 F H 11/17/22 11:39 Pulse 72 11/17/22 11:39 Resp 16 11/17/22 11:39 BP 122/64 11/17/22 11:39 Pulse Ox 90 L 11/17/22 11:39 FiO2 Intake & Output 11/16/22 11/17/22 11/17/22 18:59 06:59 18:59 Other: Voiding Method Urinal # Voids 2 1 - Labs CBC & Chem 7: 11/17/22 06:13 11/17/22 06:13 Labs: Abnormal Lab Results - Last 24 Hours (Table) 11/17/22 11/17/22 11/17/22 Range/Units 06:13 06:13 11:09 WBC 10.99 H (4.50-10.00) X 10*3/uL RBC 3.47 L (4.40-5.60) X 10*6/uL Hgb 10.6 L (13.0-17.0) d/dL Hct 32.2 L (39.6-50.0) % MPV 9.4 L (9.5-12.2) FL Neutrophils # 8.06 H (1.80-7.70) X 10*3/uL Monocytes # 1.05 H (0.20-1.00) X 10*3/uL Potassium 3.3 L (3.5-5.5) mmol/L Anion Gap 12.10 H (4.00-12.00) mmol/L BUN <3.5 L (9.0-27.0) mg/dL BUN/Creatinine Ratio <3.89 L (12.00-20.00) Ratio Glucose 112 H (70-110) mg/dL C-Reactive Protein 5.70 H 8.6 H (0.00-0.80) mg/dL Total Protein 5.8 L (6.2-8.2) d/dL Albumin 3.7 L (3.8-4.9) d/dL Microbiology - Last 24 Hours (Table) 11/13/22 22:45 Blood Culture - Preliminary Blood 11/13/22 22:30 Blood Culture - Preliminary Blood
[2022-11-17] MEDS: PIPERACILLIN-TAZOBACTAM 3.375 GM in SODIUM CHLORIDE 0.9% 100 ML IVPB SCH ×2 (23:45→23:46)
[2022-11-18] MEDS: HYDROmorphone 1 MG/ML 1 ML SYRINGE IVP PRN ×6 (00:34→22:28)
[2022-11-18] MEDS: PIPERACILLIN-TAZOBACTAM 3.375 GM in SODIUM CHLORIDE 0.9% 100 ML IVPB SCH ×2 (08:44→16:38)
[2022-11-18] MEDS: ONDANSETRON 4 MG/2 ML VIAL IVP PRN ×2 (08:44→22:23)
[2022-11-18] MEDS: DICYCLOMINE 10 MG CAP PO SCH ×3 (08:45→21:33)
[2022-11-18] MEDS: LOSARTAN 50 MG TAB PO SCH (08:45)
[2022-11-18] MEDS: HEPARIN SODIUM,PORCINE 5,000 UNIT/ML 1 ML VIAL SQ SCH ×2 (08:45→21:34)
[2022-11-18] MEDS: METOPROLOL TARTRATE 25 MG TAB PO SCH ×2 (08:45→21:33)
[2022-11-18] MEDS: PANTOPRAZOLE 40 MG/10 ML VIAL IVP SCH ×2 (08:45→21:35)
[2022-11-18] MEDS: FUROSEMIDE 20 MG TAB PO SCH (08:45)
[2022-11-18] MEDS: GABAPENTIN 300 MG CAP PO SCH ×3 (08:45→21:33)
[2022-11-18] MEDS: TIMOLOL 0.5% OPHTH DROPS 5 ML BTL BOTH EYES SCH ×2 (08:46→21:32)
[2022-11-18] MEDS: BRIMONIDINE TARTRATE 0.2% DROPS 5 ML BTL BOTH EYES SCH ×2 (08:46→21:31)
[2022-11-18] MEDS: SODIUM CHLORIDE TAB 1 GM TAB PO SCH ×3 (08:53→21:32)
[2022-11-18 11:12] LABS: Basophils # (A) 0.03 X 10*3/uL (0.00-0.10); Basophils % (A) 0.4 %; Eosinophils # (A) 0.38 X 10*3/uL (0.04-0.35); Eosinophils % (A) 5.5 %; HCT 32.3 % (39.6-50.0); HGB 10.6 d/dL (13.0-17.0); Lymphocytes # (A) 1.02 X 10*3/uL (0.90-5.00); Lymphocytes % (A) 14.8 %; MCH 30.6 pg (27.0-32.0); MCHC 32.8 d/dL (32.0-37.0); MCV 93.4 FL (80.0-97.0); Mean Platelet Volume 9.2 FL (9.5-12.2); Monocytes % (A) 11.6 %; NRBC Per 100 WBC 0 X 10*3/uL (0.00-0.01); Neutrophils # (A) 4.64 X 10*3/uL (1.80-7.70); Neutrophils % (A) 67.4 %; Platelet Count 258 X 10*3/uL (140-440); RBC 3.46 X 10*6/uL (4.40-5.60); RDW 12.9 % (11.5-14.5); WBC 6.89 X 10*3/uL (4.50-10.00)
[2022-11-18 11:24] LABS: ALT 15 U/L (10-49); AST 25 U/L (14-35); Albumin 3.4 d/dL (3.8-4.9); Alkaline Phosphatase 73 U/L (41-126); BUN/Creat Ratio 4.62 Ratio (12.00-20.00); Blood Urea Nitrogen 3.7 mg/dL (9.0-27.0); Calcium 8.4 mg/dL (8.7-10.3); Carbon Dioxide 25.5 mmol/L (21.6-31.8); Chloride 104 mmol/L (96-109); Glucose 89 mg/dL (70-110); Magnesium 1.9 mg/dL (1.5-2.4); Potassium 3.4 mmol/L (3.5-5.5); Sodium 139 mmol/L (135-145); Total Bilirubin 0.2 mg/dL (0.3-1.2); Total Protein 5.4 d/dL (6.2-8.2)
[2022-11-18] MEDS ORDERED: POTASSIUM CHLORIDE ER 20 MEQ TAB.ER PO STA (13:26)
--- NOTE | 2022-11-18 13:32 | P.PN ---
Subjective Progress Note Date: 11/18/22 CHIEF COMPLAINT: Appendicitis HISTORY OF PRESENT ILLNESS: Patient is postop day #1 status post laparoscopic appendectomy. Patient's pain is controlled. He is tolerating diet. Patient having low-grade temps. WBC is down to 6.89. Hgb 10.6 potassium is 3.4 PHYSICAL EXAM: VITAL SIGNS: Reviewed. GENERAL: Well-developed in no acute distress. ABDOMEN: Soft. Nondistended. NEUROLOGIC: Alert and oriented. Cranial nerves II through XII grossly intact. ASSESSMENT: 1. Early appendicitis status post laparoscopic appendectomy PLAN: -Diet advanced to regular -Continue antibiotics per ID service -Patient with early appendicitis doubt source of recent fever -replace potassium Physician Genetic Counsellor note has been reviewed by physician. Signing provider agrees with the documented findings, assessment, and plan of care. Objective - Vital Signs Vital signs: Vital Signs Temp 99.4 F 11/18/22 07:13 Pulse 83 11/18/22 07:13 Resp 21 11/18/22 07:13 BP 162/80 11/18/22 07:13 Pulse Ox 96 11/18/22 07:13 FiO2 Intake & Output 11/17/22 11/18/22 11/18/22 18:59 06:59 18:59 Intake Total 400 Output Total 5 400 Balance 395 -400 Weight 90.718 kg Intake: IV 400 Output: Urine 0 400 Straight 400 Estimated Blood Loss 5 Other: Voiding Method Urinal # Voids 1 0 - Labs CBC & Chem 7: 11/18/22 06:24 11/18/22 06:24 Labs: Abnormal Lab Results - Last 24 Hours (Table) 11/18/22 11/18/22 Range/Units 06:24 06:24 RBC 3.46 L (4.40-5.60) X 10*6/uL Hgb 10.6 L (13.0-17.0) d/dL Hct 32.3 L (39.6-50.0) % MPV 9.2 L (9.5-12.2) FL Eosinophils # 0.38 H (0.04-0.35) X 10*3/uL Potassium 3.4 L (3.5-5.5) mmol/L BUN 3.7 L (9.0-27.0) mg/dL BUN/Creatinine Ratio 4.62 L (12.00-20.00) Ratio Calcium 8.4 L (8.7-10.3) mg/dL Total Bilirubin 0.2 L (0.3-1.2) mg/dL Total Protein 5.4 L (6.2-8.2) d/dL Albumin 3.4 L (3.8-4.9) d/dL Microbiology - Last 24 Hours (Table) 11/15/22 18:37 Stool Culture - Preliminary Stool
[2022-11-18] MEDS: KETOROLAC 15 MG/ML 1 ML VIAL IVP PRN (13:49)
--- NOTE | 2022-11-18 15:10 | XR ---
EXAMINATION TYPE: XR chest 1V portable DATE OF EXAM: 11/18/2022 COMPARISON: 11/17/2022 INDICATION: Short of breath TECHNIQUE: Single frontal view of the chest is obtained. FINDINGS: The heart size is normal. The pulmonary vasculature is normal. Infiltrate is in the retrocardiac region. There is silhouetting of the diaphragm. IMPRESSION: 1. Correlate for atelectasis or pneumonia the left lung base.
[2022-11-18] MEDS: NON FORMULARY DRUG (Simvastatin 40 MG Tab) PO SCH (21:30)
[2022-11-18] MEDS: MONTELUKAST 10 MG TAB PO SCH (21:32)
[2022-11-18] MEDS: AMITRIPTYLINE HCL 25 MG TAB PO SCH (21:33)
[2022-11-18] MEDS: ESCITALOPRAM 10 MG TAB PO SCH (21:33)
[2022-11-18] MEDS: diazePAM 5 MG TAB PO PRN (22:01)
--- NOTE | 2022-11-18 22:32 | P.PN ---
Subjective Progress Note Date: 11/18/22 Principal diagnosis: Colitis Patient is a 71-year-old male with a past medical history significant for hypertension hyperlipidemia CO osteoarthritis reflux coronary disease has been dealing with diarrhea that has been going on for more than a week , patient did have CT of abdominal pelvis with evidence of colitis from transverse colon to descending and sigmoid colon concerning for infectious versus inflammatory process.Patient is status post laparoscopic appendectomy completed on 11/17/2022. On today's evaluation that is 11/18/2022 patient overall feels better and has improved last temperature of 29.9 around 2 this morning the patient is afebrile since then patient is feeling slightly better is breathing comfortably however requiring a 2 L nasal oxygen but denies any chest pain or cough abdominal pain has decreased in intensity from vomiting and diarrhea has resolved. Patient white normalized to 6.89 creatinine 0.8 UA was negative repeat cultures so far negative Objective - Vital Signs Vital signs: Vital Signs Temp 99.4 F 11/18/22 07:13 Pulse 83 11/18/22 07:13 Resp 21 11/18/22 07:13 BP 162/80 11/18/22 07:13 Pulse Ox 96 11/18/22 07:13 FiO2 Intake & Output 11/17/22 11/18/22 11/18/22 18:59 06:59 18:59 Intake Total 400 Output Total 5 400 Balance 395 -400 Weight 90.718 kg Intake: IV 400 Output: Urine 0 400 Straight 400 Estimated Blood Loss 5 Other: Voiding Method Urinal # Voids 1 0 - Exam GENERAL DESCRIPTION: An elderly male lying in bed in no distress RESPIRATORY SYSTEM: Unlabored breathing , decreased breath sounds at bases HEART: S1 S2 regular rate and rhythm , ABDOMEN: Soft , no tenderness EXTREMITIES: No edema feet - Labs CBC & Chem 7: 11/18/22 06:24 11/18/22 06:24 Labs: Abnormal Lab Results - Last 24 Hours (Table) 11/17/22 11/17/22 11/17/22 Range/Units 06:13 06:13 11:09 WBC 10.99 H (4.50-10.00) X 10*3/uL RBC 3.47 L (4.40-5.60) X 10*6/uL Hgb 10.6 L (13.0-17.0) d/dL Hct 32.2 L (39.6-50.0) % MPV 9.4 L (9.5-12.2) FL Neutrophils # 8.06 H (1.80-7.70) X 10*3/uL Monocytes # 1.05 H (0.20-1.00) X 10*3/uL Potassium 3.3 L (3.5-5.5) mmol/L Anion Gap 12.10 H (4.00-12.00) mmol/L BUN <3.5 L (9.0-27.0) mg/dL BUN/Creatinine Ratio <3.89 L (12.00-20.00) Ratio Glucose 112 H (70-110) mg/dL C-Reactive Protein 5.70 H 8.6 H (0.00-0.80) mg/dL Total Protein 5.8 L (6.2-8.2) d/dL Albumin 3.7 L (3.8-4.9) d/dL Microbiology - Last 24 Hours (Table) 11/15/22 18:37 Stool Culture - Preliminary Stool Assessment and Plan (1) Colitis Current Visit: Yes Status: Acute Code(s): K52.9 - NONINFECTIVE GASTROENTERITIS AND COLITIS, UNSPECIFIED SNOMED Code(s): 62348795 (2) Failure of outpatient treatment Current Visit: Yes Status: Acute Code(s): Z78.9 - OTHER SPECIFIED HEALTH STATUS SNOMED Code(s): 309817212 Plan: 1patient presented hospital with diarrhea abdominal pain this patient who did have evidence of fever with abnormal CT showing colitis involving the transverse descending and sigmoid colon concerning for infectious versus noninfectious colitis interestingly the patient did have a normal white count despite this extensive colitis which we will continue for go against C. difficile colitis as the patient denies any history of recent antibiotic exposure before his symptoms started and do give a history of some improvement in his symptoms with oral Cipro however keeping in mind his extensive colitis underlying infectious source such as C. difficile versus other enteric pathogen not entirely excluded. 2 stool for C. diff PCR came back negative 3patient did have a new fever with a question of possible possible appendicitis in this patient who is status post laparoscopic appendectomy CT did shows improvement in his colitis and the patient fever pattern has improved we will continue patient on Zosyn and monitor his clinical course closely Dictation was produced using [employer] dictation software. please excuse any gra mmatical, word or spelling errors.
[2022-11-19] MEDS: PIPERACILLIN-TAZOBACTAM 3.375 GM in SODIUM CHLORIDE 0.9% 100 ML IVPB SCH ×4 (00:56→23:40)
[2022-11-19] MEDS: HYDROmorphone 1 MG/ML 1 ML SYRINGE IVP PRN ×6 (03:29→23:40)
--- NOTE | 2022-11-19 05:13 | P.PN ---
Subjective Progress Note Date: 11/18/22 This is a pleasant 71-year-old male who presented to the emergency department with significant abdominal pain along with fevers. Patient was seen and evaluated in the emergency department given antibiotics and sent home and was told it was some form of intestine times infection. Patient followed up with his primary care provider Dr. Khan and was prescribed Cipro and was told if symptoms continued or persisted to come to the emergency department. Patient started having increased abdominal pains with increasing fevers and multiple episodes of diarrhea and presented to the emergency department. Patient has a past medical history of coronary artery disease, angina, GERD, hyperlipidemia, hypertension, previous myocardial infarctions, osteoarthritis, history of SVT with ablation, duodenal ulcers, chronic duodenal stricture with esophagitis and hiatal hernia along with anxiety. Patient referred he follows with Dr. Moris GRIFFIN in the outpatient setting for his continued abdominal issues. Patient also has history of anxiety and is a former smoker, denies any illicit drug use other than prescribed and denies alcohol use. Patient reports to nausea although reports has not vomited but continues with abdominal pain. Patient underwent CT abdomen and pelvis in the ER which showed findings concerning for colitis of the transverse, descending, and sigmoid colon that may be infectious or inflammatory illness with secondary mesenteric adenitis. Patient was given a dose of antibiotics in the ER and admitted with infectious disease on consult for failure of outpatient treatment for colitis. Patient reports to me this morning on exam that he has had multiple loose stools and will obtain C. diff as patient has been on a few rounds of antibiotics outpatient. Labs revealed a normal white count of 8.8, hemoglobin 12.1, sodium was 136 with a potassium of 4.0, BUN is 10 and creatinine 0.84, lactic acid is 1.5 and urinalysis was negative. EKG showed sinus rhythm with a heart rate of 82 bpm. 11/15/2022 Patient is evaluated today resting in bed. He reports diarrhea has improved 2 episodes today so far and would like his diet advanced to full liquid/soft diet. He remains on IV metronidazole and IV ceftriaxone for the diarrhea. Immodium will be added. C.Dif was negative. Blood culture negative so far. Magnesium 1.8. Hemodynmically stable. 11/16/2022 Patient is evaluated today on the medical floor. He is continuing to have loose stools multiple episodes. Pending C.diff PCR. Remains on IV ceftriaxone and IV flagyl. Labs are stable today. Diet was increased to low fiber, patient is tolerating. The rest of his home medications have been resumed he is taken off the iv fluids and given oral lasix. His lower extremities having increasing edema. 11/17/2022 Patient is seen in follow-up today continues to have loose stools with abdominal pain. Patient is reporting pain in the lower abdomen along with right lower quadrant. Infectious disease following an ordering CT abdomen which is pending at this time. Patient continues on antibiotics and maintained on oral antibiotics for C. diff. Patient continues to have fevers and not feeling well. Patient reports diarrhea is improving but abdominal pain persists. [place] chest pain or shortness of breath. Patient's lung sounds congested on exam will add chest x-ray. Patient continues to have nausea with no vomiting and not tolerating much oral intake. 11/18/2022 Patient is seen in follow-up this morning status post appendectomy with Dr. Marcus. Patient continues to have low-grade temperatures overnight and is ma intained on IV antibiotics with infectious disease following. Cultures have been negative and C. diff. Patient continues to have some abdominal discomfort and also reporting some mild shortness of breath. Will obtain a chest x-ray. Patient was resumed on home dose of Lasix and will await chest x-ray as patient does have some fine crackles at the bases. Patient's diet has been advanced per surgery although not tolerating much. Patient continues with occasional nausea with no vomiting at this time. Will follow up on repeat labs. Review of Systems Constitutional: Reports of fatigue and having continued fevers throughout the night Cardio vascular: denied any chest pain, palpitations Gastrointestinal: Reports nausea, no vomiting, Reports diarrhea that has slightly improved. Pulmonary: Denied any shortness of breath, reports cough Neurologic denied any new focal deficits, reports feeling generalized weakness All inpatient medications were reviewed and appropriate changes in these medications as dictated in the interval history and assessment and plan. PHYSICAL EXAMINATION: GENERAL: The patient is lethargic, easily arousable, alert and oriented x4, Well developed, well nourished. ill-appearing, elderly appearing HEENT: Pupils are round and equally reacting to light. EOMI. no scleral icterus. No conjunctival pallor. Normocephalic, atraumatic. No pharyngeal erythema. No thyromegaly. CARDIOVASCULAR: S1 and S2 muffled PULMONARY: diminished breath sounds bilaterally with no wheezing , faint crackles at the bases noted. ABDOMEN: soft. tender on exam of the right lower and mid quadrant regions . non- distended, normoactive bowel sounds. No palpable organomegaly. MUSCULOSKELETAL: No joint swelling or deformity. EXTREMITIES: No cyanosis, clubbing, or pedal edema. NEUROLOGICAL: Gross neurological examination did not reveal any focal deficits. Diffuse weakness SKIN: No rashes. Assessment: Abdominal pain secondary to colitis involving the transverse, descending, and sigmoid colon with failure of outpatient treatment Diarrhea, multiple episodes and was recently on antibiotics over the last few weeks with failure of outpatient treatment, C. Dif negative. Acute dehydration secondary to diarrhea and loss of appetite Fevers with right lower quadrant tenderness, acute appendicitis status post appendectomy on 11/17/2022 Gastroesophageal reflux disease Hyperlipidemia Hypertension History of chronic duodenal stricture History of anxiety Patient reports history of agent orange exposure History of coronary artery disease GI prophylaxis DVT prophylaxis Full code Plan: Patient is continued on antibiotics with infectious disease following including general surgery as patient had acute appendicitis on CT status post appendectomy Patient continues to have fevers although slightly improved and reporting some congestion with cough will obtain chest x-ray. Encouraged increased activity as tolerated Diet has been advanced per surgery although patient is not tolerating much. Encouraged oral intake with small frequent meals Incentive spirometer provided and encouraged to continue using at least 10 times every hour while awake Follow-up on repeat labs. Replace electrolytes per protocol Resumed on oral lasix will await chest x-ray. Patient may benefit from a dose of IV Lasix C. diff was negative The impression and plan of care has been dictated by Ayaka Lu, Nurse Practitioner as directed. Dr. Lilliana MD I have performed a history and examination and MDM of this patient, discussed the same with the dictator, and agree with the dictator's assessment and plan as written ,documented as a scribe. Based on total visit time, I have performed more than 50% of the visit. Objective - Vital Signs Vital signs: Vital Signs Temp 98.7 F 11/18/22 13:15 Pulse 69 11/18/22 13:15 Resp 16 11/18/22 13:15 BP 156/71 11/18/22 13:15 Pulse Ox 94 L 11/18/22 13:15 FiO2 Intake & Output 11/17/22 11/18/22 11/18/22 18:59 06:59 18:59 Intake Total 400 Output Total 5 400 Balance 395 -400 Weight 90.718 kg Intake: IV 400 Output: Urine 0 400 Straight 400 Estimated Blood Loss 5 Other: Voiding Method Urinal # Voids 1 0 - Labs CBC & Chem 7: 11/18/22 06:24 11/18/22 06:24 Labs: Abnormal Lab Results - Last 24 Hours (Table) 11/18/22 11/18/22 Range/Units 06:24 06:24 RBC 3.46 L (4.40-5.60) X 10*6/uL Hgb 10.6 L (13.0-17.0) d/dL Hct 32.3 L (39.6-50.0) % MPV 9.2 L (9.5-12.2) FL Eosinophils # 0.38 H (0.04-0.35) X 10*3/uL Potassium 3.4 L (3.5-5.5) mmol/L BUN 3.7 L (9.0-27.0) mg/dL BUN/Creatinine Ratio 4.62 L (12.00-20.00) Ratio Calcium 8.4 L (8.7-10.3) mg/dL Total Bilirubin 0.2 L (0.3-1.2) mg/dL Total Protein 5.4 L (6.2-8.2) d/dL Albumin 3.4 L (3.8-4.9) d/dL Microbiology - Last 24 Hours (Table) 11/15/22 18:37 Stool Culture - Preliminary Stool
[2022-11-19] MEDS: ACETAMINOPHEN TAB 325 MG TAB PO PRN (06:24)
[2022-11-19] MEDS: guaiFENesin SYRUP 100MG/5ML 200 MG/10 ML CUP PO PRN (06:24)
[2022-11-19] MEDS: SODIUM CHLORIDE TAB 1 GM TAB PO SCH ×3 (08:23→21:40)
[2022-11-19] MEDS: FUROSEMIDE 20 MG TAB PO SCH (08:24)
[2022-11-19] MEDS: DICYCLOMINE 10 MG CAP PO SCH ×3 (08:24→21:39)
[2022-11-19] MEDS: PANTOPRAZOLE 40 MG/10 ML VIAL IVP SCH ×2 (08:24→21:40)
[2022-11-19] MEDS: HEPARIN SODIUM,PORCINE 5,000 UNIT/ML 1 ML VIAL SQ SCH ×2 (08:24→21:40)
[2022-11-19] MEDS: GABAPENTIN 300 MG CAP PO SCH ×3 (08:24→21:39)
[2022-11-19] MEDS: METOPROLOL TARTRATE 25 MG TAB PO SCH ×2 (08:24→21:40)
[2022-11-19] MEDS: LOSARTAN 50 MG TAB PO SCH (08:24)
[2022-11-19] MEDS: BRIMONIDINE TARTRATE 0.2% DROPS 5 ML BTL BOTH EYES SCH ×2 (08:24→21:41)
[2022-11-19] MEDS: TIMOLOL 0.5% OPHTH DROPS 5 ML BTL BOTH EYES SCH ×2 (08:25→21:41)
[2022-11-19 08:52] LABS: Basophils # (A) 0.02 X 10*3/uL (0.00-0.10); Basophils % (A) 0.3 %; Eosinophils # (A) 0.48 X 10*3/uL (0.04-0.35); Eosinophils % (A) 6.8 %; HCT 30.8 % (39.6-50.0); HGB 10.4 d/dL (13.0-17.0); Lymphocytes # (A) 1.29 X 10*3/uL (0.90-5.00); Lymphocytes % (A) 18.3 %; MCHC 33.8 d/dL (32.0-37.0); MCV 91.7 FL (80.0-97.0); Mean Platelet Volume 9.2 FL (9.5-12.2); Monocytes # (A) 0.93 X 10*3/uL (0.20-1.00); Monocytes % (A) 13.2 %; NRBC Per 100 WBC 0 X 10*3/uL (0.00-0.01); Neutrophils # (A) 4.29 X 10*3/uL (1.80-7.70); Neutrophils % (A) 61.1 %; Platelet Count 254 X 10*3/uL (140-440); RBC 3.36 X 10*6/uL (4.40-5.60); RDW 12.7 % (11.5-14.5); WBC 7.03 X 10*3/uL (4.50-10.00)
[2022-11-19 09:27] LABS: BUN/Creat Ratio 8.57 Ratio (12.00-20.00); Calcium 8.5 mg/dL (8.7-10.3); Carbon Dioxide 27.1 mmol/L (21.6-31.8); Chloride 102 mmol/L (96-109); Glucose 108 mg/dL (70-110); Potassium 3.6 mmol/L (3.5-5.5); Sodium 140 mmol/L (135-145)
[2022-11-19] MEDS ORDERED: IPRATROPIUM-ALBUTEROL 3 ML NEB INHALATION PRN (11:44)
--- NOTE | 2022-11-19 12:52 | P.PN ---
Subjective Progress Note Date: 11/19/22 CHIEF COMPLAINT: Appendicitis HISTORY OF PRESENT ILLNESS: Patient is postop day #2 status post laparoscopic appendectomy. Patient reports his pain is controlled. He did have a bowel movement. He did have nausea earlier no vomiting. He does complain of a cough. Chest x-ray report states to correlate for atelectasis or pneumonia in the left lung base. Patient did have a low-grade temperature 100.1 this morning. WBC 7.03 potassium normal at 3.6 PHYSICAL EXAM: VITAL SIGNS: Reviewed. GENERAL: Well-developed in no acute distress. ABDOMEN: Soft. Nondistended. Incision sites clean dry and intact NEUROLOGIC: Alert and oriented. Cranial nerves II through XII grossly intact. ASSESSMENT: 1. Early appendicitis status post laparoscopic appendectomy 2. Possible pneumonia versus atelectasis PLAN: -Diet advanced to regular -Continue antibiotics per ID service -Encouraged patient to use incentive spirometer -Encouraged patient to ambulate -Magee added for oral pain management -DVT prophylaxis subcu heparin Physician Unpaid Intern note has been reviewed by physician. Signing provider agrees with the documented findings, assessment, and plan of care. I have personally seen and examined the patient, reviewed the COURTESY DRIVER /PAs history, exam and MDM and agree with the assessment and plan as written. Based on total visit time, I have performed more than 50% of the visit. As above: Patient says he feels better. T-max 100.1. Some cough and sputum production. Chest x-ray noted. Final pathology pending. Continue diet. Ambulate. Continue antibiotics per infectious disease. Objective - Vital Signs Vital signs: Vital Signs Temp 98.4 F 11/19/22 07:59 Pulse 90 11/19/22 07:59 Resp 16 11/19/22 07:59 BP 112/65 11/19/22 07:59 Pulse Ox 92 L 11/19/22 07:59 FiO2 Intake & Output 11/18/22 11/19/22 11/19/22 18:59 06:59 18:59 Output Total 400 250 Balance -400 -250 Output: Urine 400 250 Straight 400 Other: Voiding Method Urinal # Voids 0 - Labs CBC & Chem 7: 11/19/22 05:41 11/19/22 05:41 Labs: Abnormal Lab Results - Last 24 Hours (Table) 11/19/22 11/19/22 11/19/22 Range/Units 05:41 05:41 05:41 RBC 3.36 L (4.40-5.60) X 10*6/uL Hgb 10.4 L (13.0-17.0) d/dL Hct 30.8 L (39.6-50.0) % MPV 9.2 L (9.5-12.2) FL Eosinophils # 0.48 H (0.04-0.35) X 10*3/uL BUN 6.0 L (9.0-27.0) mg/dL BUN/Creatinine Ratio 8.57 L (12.00-20.00) Ratio Calcium 8.5 L (8.7-10.3) mg/dL C-Reactive Protein 12.50 H (0.00-0.80) mg/dL Procalcitonin 0.23 H (0.02-0.09) ng/mL Microbiology - Last 24 Hours (Table) 11/13/22 22:45 Blood Culture - Final Blood 11/13/22 22:30 Blood Culture - Final Blood 11/15/22 18:37 Stool Culture - Final Stool 11/17/22 11:09 Blood Culture - Preliminary Blood 11/17/22 11:01 Blood Culture - Preliminary Blood
[2022-11-19] MEDS: IPRATROPIUM-ALBUTEROL 3 ML NEB INHALATION SCH ×2 (15:17→19:49)
[2022-11-19] MEDS: HYDROcodone/APAP 5-325MG 1 EACH TAB PO PRN (15:24)
[2022-11-19 17:21] LABS: Glucose,Whole Blood 114 mg/dL (70-110)
[2022-11-19] MEDS: ONDANSETRON 4 MG/2 ML VIAL IVP PRN (20:25)
--- NOTE | 2022-11-19 21:04 | P.PN ---
Subjective Progress Note Date: 11/19/22 This is a pleasant 71-year-old male who presented to the emergency department with significant abdominal pain along with fevers. Patient was seen and evaluated in the emergency department given antibiotics and sent home and was told it was some form of intestine times infection. Patient followed up with his primary care provider Dr. Khan and was prescribed Cipro and was told if symptoms continued or persisted to come to the emergency department. Patient started having increased abdominal pains with increasing fevers and multiple episodes of diarrhea and presented to the emergency department. Patient has a past medical history of coronary artery disease, angina, GERD, hyperlipidemia, hypertension, previous myocardial infarctions, osteoarthritis, history of SVT with ablation, duodenal ulcers, chronic duodenal stricture with esophagitis and hiatal hernia along with anxiety. Patient referred he follows with Dr. Moris GRIFFIN in the outpatient setting for his continued abdominal issues. Patient also has history of anxiety and is a former smoker, denies any illicit drug use other than prescribed and denies alcohol use. Patient reports to nausea although reports has not vomited but continues with abdominal pain. Patient underwent CT abdomen and pelvis in the ER which showed findings concerning for colitis of the transverse, descending, and sigmoid colon that may be infectious or inflammatory illness with secondary mesenteric adenitis. Patient was given a dose of antibiotics in the ER and admitted with infectious disease on consult for failure of outpatient treatment for colitis. Patient reports to me this morning on exam that he has had multiple loose stools and will obtain C. diff as patient has been on a few rounds of antibiotics outpatient. Labs revealed a normal white count of 8.8, hemoglobin 12.1, sodium was 136 with a potassium of 4.0, BUN is 10 and creatinine 0.84, lactic acid is 1.5 and urinalysis was negative. EKG showed sinus rhythm with a heart rate of 82 bpm. 11/15/2022 Patient is evaluated today resting in bed. He reports diarrhea has improved 2 episodes today so far and would like his diet advanced to full liquid/soft diet. He remains on IV metronidazole and IV ceftriaxone for the diarrhea. Immodium will be added. C.Dif was negative. Blood culture negative so far. Magnesium 1.8. Hemodynmically stable. 11/16/2022 Patient is evaluated today on the medical floor. He is continuing to have loose stools multiple episodes. Pending C.diff PCR. Remains on IV ceftriaxone and IV flagyl. Labs are stable today. Diet was increased to low fiber, patient is tolerating. The rest of his home medications have been resumed he is taken off the iv fluids and given oral lasix. His lower extremities having increasing edema. 11/17/2022 Patient is seen in follow-up today continues to have loose stools with abdominal pain. Patient is reporting pain in the lower abdomen along with right lower quadrant. Infectious disease following an ordering CT abdomen which is pending at this time. Patient continues on antibiotics and maintained on oral antibiotics for C. diff. Patient continues to have fevers and not feeling well. Patient reports diarrhea is improving but abdominal pain persists. [place] chest pain or shortness of breath. Patient's lung sounds congested on exam will add chest x-ray. Patient continues to have nausea with no vomiting and not tolerating much oral intake. 11/18/2022 Patient is seen in follow-up this morning status post appendectomy with Dr. Marcus. Patient continues to have low-grade temperatures overnight and is ma intained on IV antibiotics with infectious disease following. Cultures have been negative and C. diff. Patient continues to have some abdominal discomfort and also reporting some mild shortness of breath. Will obtain a chest x-ray. Patient was resumed on home dose of Lasix and will await chest x-ray as patient does have some fine crackles at the bases. Patient's diet has been advanced per surgery although not tolerating much. Patient continues with occasional nausea with no vomiting at this time. Will follow up on repeat labs. 11/19/2022 Patient is seen and evaluated in follow-up today currently just walking back from the bathroom with assistance from his . Patient is weak and will have physical therapy evaluate the patient. General surgery and infectious disease following an patient is status post appendectomy. Patient is continued on antibiotics and did have a low-grade temp of 100.1 this morning. White count has normalized. Patient is reporting a cough and encouraged incentive spirometer and to continue using these 10 times every hour while awake. Encouraged increased activity as tolerated. Tolerating diet with some nausea although no vomiting. Patient continues to have diffuse abdominal pain. Review of Systems Constitutional: Reports of fatigue and had a low-grade temp of 100.1 this morning Cardio vascular: denied any chest pain, palpitations Gastrointestinal: Reports nausea, no vomiting, Reports had a bowel movement this morning that was loose Pulmonary: Denied any shortness of breath, reports cough Neurologic denied any new focal deficits, reports feeling generalized weakness All inpatient medications were reviewed and appropriate changes in these medications as dictated in the interval history and assessment and plan. PHYSICAL EXAMINATION: GENERAL: The patient is awake, alert and oriented x4, Well developed, well nourished. ill-appearing, elderly appearing HEENT: Pupils are round and equally reacting to light. EOMI. no scleral icterus. No conjunctival pallor. Normocephalic, atraumatic. No pharyngeal erythema. No thyromegaly. CARDIOVASCULAR: S1 and S2 muffled PULMONARY: diminished breath sounds bilaterally with no wheezing , faint crackles at the bases noted. ABDOMEN: soft. tender on exam of the right lower and mid quadrant regions . non- distended, normoactive bowel sounds. No palpable organomegaly. MUSCULOSKELETAL: No joint swelling or deformity. EXTREMITIES: No cyanosis, clubbing, or pedal edema. NEUROLOGICAL: Gross neurological examination did not reveal any focal deficits. Diffuse weakness SKIN: No rashes. Assessment: Abdominal pain secondary to colitis involving the transverse, descending, and sigmoid colon with failure of outpatient treatment Diarrhea, multiple episodes and was recently on antibiotics over the last few weeks with failure of outpatient treatment, C. Dif negative. Acute dehydration secondary to diarrhea and loss of appetite Fevers with right lower quadrant tenderness, acute appendicitis status post appendectomy on 11/17/2022 Gastroesophageal reflux disease Hyperlipidemia Hypertension History of chronic duodenal stricture History of anxiety Patient reports history of agent orange exposure History of coronary artery disease GI prophylaxis DVT prophylaxis Full code Plan: Patient is continued on antibiotics with infectious disease following including general surgery as patient had acute appendicitis on CT and is status post appendectomy Patient did have a low-grade temp of 100.1 this morning Encouraged increased activity as tolerated as patient is extremely weak. Will have physical therapy evaluate the patient Diet has been advanced per surgery although patient is not eating much. Patient reports not much of an appetite with continued mild abdominal pain. Encouraged oral intake with small frequent meals Incentive spirometer provided and encouraged to continue using at least 10 times every hour while awake Follow-up on repeat labs. Replace electrolytes per protocol C. diff was negative Patient is continued on antibiotics and awaiting finalized cultures. Due to multiple complex medical issues, prognosis is guarded The impression and plan of care has been dictated by Ayaka Lu, Nurse Practitioner as directed. Dr. Lowell MD I have performed a history and examination and MDM of this patient, discussed the same with the dictator, and agree with the dictator's assessment and plan as written ,documented as a scribe. Based on total visit time, I have performed more than 50% of the visit. Objective - Vital Signs Vital signs: Vital Signs Temp 98.4 F 11/19/22 07:59 Pulse 90 11/19/22 07:59 Resp 16 11/19/22 07:59 BP 112/65 11/19/22 07:59 Pulse Ox 92 L 11/19/22 07:59 FiO2 Intake & Output 11/18/22 11/19/22 11/19/22 18:59 06:59 18:59 Output Total 400 250 Balance -400 -250 Output: Urine 400 250 Straight 400 Other: Voiding Method Urinal # Voids 0 - Labs CBC & Chem 7: 11/19/22 05:41 11/19/22 05:41 Labs: Abnormal Lab Results - Last 24 Hours (Table) 11/18/22 11/18/22 11/19/22 Range/Units 06:24 06:24 05:41 RBC 3.46 L (4.40-5.60) X 10*6/uL Hgb 10.6 L (13.0-17.0) d/dL Hct 32.3 L (39.6-50.0) % MPV 9.2 L (9.5-12.2) FL Eosinophils # 0.38 H (0.04-0.35) X 10*3/uL Potassium 3.4 L (3.5-5.5) mmol/L BUN 3.7 L 6.0 L (9.0-27.0) mg/dL BUN/Creatinine Ratio 4.62 L 8.57 L (12.00-20.00) Ratio Calcium 8.4 L 8.5 L (8.7-10.3) mg/dL Total Bilirubin 0.2 L (0.3-1.2) mg/dL C-Reactive Protein 12.50 H (0.00-0.80) mg/dL Total Protein 5.4 L (6.2-8.2) d/dL Albumin 3.4 L (3.8-4.9) d/dL Procalcitonin (0.02-0.09) ng/mL 11/19/22 11/19/22 Range/Units 05:41 05:41 RBC 3.36 L (4.40-5.60) X 10*6/uL Hgb 10.4 L (13.0-17.0) d/dL Hct 30.8 L (39.6-50.0) % MPV 9.2 L (9.5-12.2) FL Eosinophils # 0.48 H (0.04-0.35) X 10*3/uL Potassium (3.5-5.5) mmol/L BUN (9.0-27.0) mg/dL BUN/Creatinine Ratio (12.00-20.00) Ratio Calcium (8.7-10.3) mg/dL Total Bilirubin (0.3-1.2) mg/dL C-Reactive Protein (0.00-0.80) mg/dL Total Protein (6.2-8.2) d/dL Albumin (3.8-4.9) d/dL Procalcitonin 0.23 H (0.02-0.09) ng/mL Microbiology - Last 24 Hours (Table) 11/13/22 22:45 Blood Culture - Final Blood 11/13/22 22:30 Blood Culture - Final Blood 11/15/22 18:37 Stool Culture - Final Stool 11/17/22 11:09 Blood Culture - Preliminary Blood 11/17/22 11:01 Blood Culture - Preliminary Blood
[2022-11-19] MEDS: ESCITALOPRAM 10 MG TAB PO SCH (21:39)
[2022-11-19] MEDS: MONTELUKAST 10 MG TAB PO SCH (21:40)
[2022-11-19] MEDS: diazePAM 5 MG TAB PO PRN (21:40)
[2022-11-19] MEDS: NON FORMULARY DRUG (Simvastatin 40 MG Tab) PO SCH (21:40)
[2022-11-19] MEDS: AMITRIPTYLINE HCL 25 MG TAB PO SCH (21:40)
[2022-11-20] MEDS: HYDROmorphone 1 MG/ML 1 ML SYRINGE IVP PRN ×5 (03:19→22:00)
[2022-11-20] MEDS: ONDANSETRON 4 MG/2 ML VIAL IVP PRN ×3 (03:31→22:10)
[2022-11-20] MEDS: IPRATROPIUM-ALBUTEROL 3 ML NEB INHALATION SCH ×3 (07:40→20:07)
[2022-11-20] MEDS: DICYCLOMINE 10 MG CAP PO SCH ×3 (08:27→21:03)
[2022-11-20] MEDS: METOPROLOL TARTRATE 25 MG TAB PO SCH ×2 (08:27→21:03)
[2022-11-20] MEDS: SODIUM CHLORIDE TAB 1 GM TAB PO SCH ×3 (08:27→21:02)
[2022-11-20] MEDS: GABAPENTIN 300 MG CAP PO SCH ×3 (08:27→21:03)
[2022-11-20] MEDS: BRIMONIDINE TARTRATE 0.2% DROPS 5 ML BTL BOTH EYES SCH ×2 (08:28→21:04)
[2022-11-20] MEDS: FUROSEMIDE 20 MG TAB PO SCH (08:28)
[2022-11-20] MEDS: HEPARIN SODIUM,PORCINE 5,000 UNIT/ML 1 ML VIAL SQ SCH ×2 (08:28→21:03)
[2022-11-20] MEDS: LOSARTAN 50 MG TAB PO SCH (08:28)
[2022-11-20] MEDS: TIMOLOL 0.5% OPHTH DROPS 5 ML BTL BOTH EYES SCH ×2 (08:29→21:05)
[2022-11-20 09:11] LABS: Basophils # (A) 0.05 X 10*3/uL (0.00-0.10); Basophils % (A) 0.8 %; Eosinophils # (A) 0.43 X 10*3/uL (0.04-0.35); Eosinophils % (A) 6.9 %; HCT 29.5 % (39.6-50.0); HGB 10.2 d/dL (13.0-17.0); Lymphocytes # (A) 1.71 X 10*3/uL (0.90-5.00); Lymphocytes % (A) 27.5 %; MCH 31.3 pg (27.0-32.0); MCHC 34.6 d/dL (32.0-37.0); MCV 90.5 FL (80.0-97.0); Mean Platelet Volume 9.2 FL (9.5-12.2); Monocytes # (A) 0.96 X 10*3/uL (0.20-1.00); Monocytes % (A) 15.4 %; NRBC Per 100 WBC 0 X 10*3/uL (0.00-0.01); Neutrophils # (A) 3.05 X 10*3/uL (1.80-7.70); Neutrophils % (A) 49.1 %; Platelet Count 285 X 10*3/uL (140-440); RBC 3.26 X 10*6/uL (4.40-5.60); RDW 12.6 % (11.5-14.5); WBC 6.22 X 10*3/uL (4.50-10.00)
[2022-11-20 10:22] LABS: ALT 14 U/L (10-49); AST 16 U/L (14-35); Albumin 3.4 d/dL (3.8-4.9); Alkaline Phosphatase 65 U/L (41-126); BUN/Creat Ratio 6.12 Ratio (12.00-20.00); Blood Urea Nitrogen 4.9 mg/dL (9.0-27.0); Calcium 8.3 mg/dL (8.7-10.3); Carbon Dioxide 29.8 mmol/L (21.6-31.8); Chloride 101 mmol/L (96-109); Glucose 105 mg/dL (70-110); Magnesium 1.8 mg/dL (1.5-2.4); Potassium 3.1 mmol/L (3.5-5.5); Sodium 141 mmol/L (135-145); Total Bilirubin <0.2 mg/dL (0.3-1.2); Total Protein 5.4 d/dL (6.2-8.2)
[2022-11-20] MEDS: PIPERACILLIN-TAZOBACTAM 3.375 GM in SODIUM CHLORIDE 0.9% 100 ML IVPB SCH ×2 (10:39→16:05)
[2022-11-20] MEDS: PANTOPRAZOLE 40 MG/10 ML VIAL IVP SCH ×2 (10:40→21:03)
[2022-11-20] MEDS ORDERED: POTASSIUM CHLORIDE ER 20 MEQ TAB.ER PO STA (11:14)
--- NOTE | 2022-11-20 11:16 | P.PN ---
Subjective Progress Note Date: 11/20/22 CHIEF COMPLAINT: Appendicitis HISTORY OF PRESENT ILLNESS: Patient is postop day #3 status post laparoscopic appendectomy. Patient reports his pain is controlled. He reports having bowel movements. Denies any nausea or vomiting. Afebrile. WBC 6.22H to be 10.2 platelets 285 sodium 141 potassium is 3.1 cr 0.8 PHYSICAL EXAM: VITAL SIGNS: Reviewed. GENERAL: Well-developed in no acute distress. ABDOMEN: Soft. Nondistended. Incision sites clean dry and intact NEUROLOGIC: Alert and oriented. Cranial nerves II through XII grossly intact. ASSESSMENT: 1. Early appendicitis status post laparoscopic appendectomy 2. Possible pneumonia versus atelectasis PLAN: -Continue regular diet -replace potassium -Continue antibiotics per ID service -Encouraged patient to use incentive spirometer -Encouraged patient to ambulate -Continue pain meds as needed -Awaiting final path report -DVT prophylaxis subcu heparin Physician Kosher Inspector note has been reviewed by physician. Signing provider agrees with the documented findings, assessment, and plan of care. I have personally seen and examined the patient, reviewed the CNC MILL OPERATOR /PAs history, exam and MDM and agree with the assessment and plan as written. Based on total visit time, I have performed more than 50% of the visit. As above: Patient doing well today. Tolerating diet. Minimal abdominal pain. Continue antibiotics. May discharge from our review. Objective - Vital Signs Vital signs: Vital Signs Temp 97.9 F 11/20/22 08:00 Pulse 67 11/20/22 08:00 Resp 16 11/20/22 08:00 BP 135/76 11/20/22 08:00 Pulse Ox 94 L 11/20/22 08:00 FiO2 21 11/19/22 19:50 Intake & Output 11/19/22 11/20/22 11/20/22 18:59 06:59 18:59 Intake Total 400 Output Total 250 Balance 150 Intake: Oral 400 Output: Urine 250 Other: Voiding Method Urinal # Voids 1 5 - Labs CBC & Chem 7: 11/20/22 05:35 11/20/22 05:35 Labs: Abnormal Lab Results - Last 24 Hours (Table) 11/19/22 11/20/22 11/20/22 Range/Units 17:19 05:35 05:35 RBC 3.26 L (4.40-5.60) X 10*6/uL Hgb 10.2 L (13.0-17.0) d/dL Hct 29.5 L (39.6-50.0) % MPV 9.2 L (9.5-12.2) FL Eosinophils # 0.43 H (0.04-0.35) X 10*3/uL Potassium 3.1 L (3.5-5.5) mmol/L BUN 4.9 L (9.0-27.0) mg/dL BUN/Creatinine Ratio 6.12 L (12.00-20.00) Ratio POC Glucose (mg/dL) 114 H (70-110) mg/dL Calcium 8.3 L (8.7-10.3) mg/dL Total Bilirubin <0.2 L (0.3-1.2) mg/dL Total Protein 5.4 L (6.2-8.2) d/dL Albumin 3.4 L (3.8-4.9) d/dL Microbiology - Last 24 Hours (Table) 11/15/22 18:37 Stool Culture - Final Stool 11/19/22 15:29 Gram Stain - Preliminary Sputum 11/17/22 11:09 Blood Culture - Preliminary Blood 11/17/22 11:01 Blood Culture - Preliminary Blood
--- NOTE | 2022-11-20 11:51 | P.PN ---
Subjective Progress Note Date: 11/19/22 Principal diagnosis: Colitis Patient is a 71-year-old male with a past medical history significant for hypertension hyperlipidemia MD osteoarthritis reflux coronary disease has been dealing with diarrhea that has been going on for more than a week , patient did have CT of abdominal pelvis with evidence of colitis from transverse colon to descending and sigmoid colon concerning for infectious versus inflammatory process.Patient is status post laparoscopic appendectomy completed on 11/17/2022. On today's evaluation that is 11/19/2022, the patient did have a low-grade fever 100.1 this morning the patient is afebrile since then, the patient is breathing comfortably on 2 L , the patient denies chest pain patient did have a cough and is being of some sputum, the patient denies nausea vomiting, no abdominal pain and stools are forming up Patient white 7.03, creatinine 0.7, procalcitonin 0.23 Objective - Vital Signs Vital signs: Vital Signs Temp 98.4 F 11/19/22 07:59 Pulse 90 11/19/22 07:59 Resp 16 11/19/22 07:59 BP 112/65 11/19/22 07:59 Pulse Ox 92 L 11/19/22 07:59 FiO2 Intake & Output 11/18/22 11/19/22 11/19/22 18:59 06:59 18:59 Output Total 400 250 Balance -400 -250 Output: Urine 400 250 Straight 400 Other: Voiding Method Urinal # Voids 0 - Exam GENERAL DESCRIPTION: An elderly male lying in bed in no distress RESPIRATORY SYSTEM: Unlabored breathing , decreased breath sounds at bases HEART: S1 S2 regular rate and rhythm , ABDOMEN: Soft , no tenderness EXTREMITIES: No edema feet - Labs CBC & Chem 7: 11/20/22 05:35 11/20/22 05:35 Labs: Abnormal Lab Results - Last 24 Hours (Table) 11/18/22 11/18/22 11/19/22 Range/Units 06:24 06:24 05:41 RBC 3.46 L (4.40-5.60) X 10*6/uL Hgb 10.6 L (13.0-17.0) d/dL Hct 32.3 L (39.6-50.0) % MPV 9.2 L (9.5-12.2) FL Eosinophils # 0.38 H (0.04-0.35) X 10*3/uL Potassium 3.4 L (3.5-5.5) mmol/L BUN 3.7 L 6.0 L (9.0-27.0) mg/dL BUN/Creatinine Ratio 4.62 L 8.57 L (12.00-20.00) Ratio Calcium 8.4 L 8.5 L (8.7-10.3) mg/dL Total Bilirubin 0.2 L (0.3-1.2) mg/dL C-Reactive Protein 12.50 H (0.00-0.80) mg/dL Total Protein 5.4 L (6.2-8.2) d/dL Albumin 3.4 L (3.8-4.9) d/dL Procalcitonin (0.02-0.09) ng/mL 11/19/22 11/19/22 Range/Units 05:41 05:41 RBC 3.36 L (4.40-5.60) X 10*6/uL Hgb 10.4 L (13.0-17.0) d/dL Hct 30.8 L (39.6-50.0) % MPV 9.2 L (9.5-12.2) FL Eosinophils # 0.48 H (0.04-0.35) X 10*3/uL Potassium (3.5-5.5) mmol/L BUN (9.0-27.0) mg/dL BUN/Creatinine Ratio (12.00-20.00) Ratio Calcium (8.7-10.3) mg/dL Total Bilirubin (0.3-1.2) mg/dL C-Reactive Protein (0.00-0.80) mg/dL Total Protein (6.2-8.2) d/dL Albumin (3.8-4.9) d/dL Procalcitonin 0.23 H (0.02-0.09) ng/mL Microbiology - Last 24 Hours (Table) 11/13/22 22:45 Blood Culture - Final Blood 11/13/22 22:30 Blood Culture - Final Blood 11/15/22 18:37 Stool Culture - Final Stool 11/17/22 11:09 Blood Culture - Preliminary Blood 11/17/22 11:01 Blood Culture - Preliminary Blood Assessment and Plan (1) Colitis Current Visit: Yes Status: Acute Code(s): K52.9 - NONINFECTIVE GASTROENTERITIS AND COLITIS, UNSPECIFIED SNOMED Code(s): 48284567 (2) Failure of outpatient treatment Current Visit: Yes Status: Acute Code(s): Z78.9 - OTHER SPECIFIED HEALTH STATUS SNOMED Code(s): 236802862 (3) Pneumonia Current Visit: Yes Status: Acute Code(s): J18.9 - PNEUMONIA, UNSPECIFIED ORGANISM SNOMED Code(s): 894738906 Plan: 1patient presented hospital with diarrhea abdominal pain this patient who did have evidence of fever with abnormal CT showing colitis involving the transverse descending and sigmoid colon concerning for infectious versus noninfectious colitis interestingly the patient did have a normal white count despite this extensive colitis which we will continue for go against C. difficile colitis as the patient denies any history of recent antibiotic exposure before his symptoms started and do give a history of some improvement in his symptoms with oral Cipro however keeping in mind his extensive colitis underlying infectious source such as C. difficile versus other enteric pathogen not entirely excluded. 2 stool for C. diff PCR came back negative 3patient did have a new fever with a question of possible possible appendicitis in this patient who is status post laparoscopic appendectomy CT did shows improvement in his colitis 4also concerning for left lower lobe pneumonia, sputum for Gram stain and culture has been requested we will continue the patient on Zosyn and monitor clinical course closely Dictation was produced using [employer] dictation software. please excuse any grammatical, word or spelling errors. Time with Patient: Less than 30
[2022-11-20] MEDS: HYDROcodone/APAP 5-325MG 1 EACH TAB PO PRN (12:16)
--- NOTE | 2022-11-20 12:24 | P.PN ---
Subjective Progress Note Date: 11/20/22 Principal diagnosis: Colitis Patient is a 71-year-old male with a past medical history significant for hypertension hyperlipidemia [place] osteoarthritis reflux coronary disease has been dealing with diarrhea that has been going on for more than a week , patient did have CT of abdominal pelvis with evidence of colitis from transverse colon to descending and sigmoid colon concerning for infectious versus inflammatory process.Patient is status post laparoscopic appendectomy completed on 11/17/2022. On today's evaluation that is 11/20/2022, the patient continues to be afebrile , the patient is breathing comfortably on room air, the patient denies nausea vomiting, no abdominal pain stools are forming up, denies any chest pain or cough, feeling better Patient white count is 6.22, creatinine is 0.8, sputum and repeat blood cultures pending Objective - Vital Signs Vital signs: Vital Signs Temp 97.9 F 11/20/22 08:00 Pulse 67 11/20/22 08:00 Resp 16 11/20/22 08:00 BP 135/76 11/20/22 08:00 Pulse Ox 94 L 11/20/22 08:00 FiO2 21 11/19/22 19:50 Intake & Output 11/19/22 11/20/22 11/20/22 18:59 06:59 18:59 Intake Total 400 Output Total 250 Balance 150 Intake: Oral 400 Output: Urine 250 Other: Voiding Method Urinal # Voids 1 5 - Exam GENERAL DESCRIPTION: An elderly male lying in bed in no distress RESPIRATORY SYSTEM: Unlabored breathing , decreased breath sounds at bases HEART: S1 S2 regular rate and rhythm , ABDOMEN: Soft , no tenderness EXTREMITIES: No edema feet - Labs CBC & Chem 7: 11/20/22 05:35 11/20/22 05:35 Labs: Abnormal Lab Results - Last 24 Hours (Table) 11/19/22 11/20/22 11/20/22 Range/Units 17:19 05:35 05:35 RBC 3.26 L (4.40-5.60) X 10*6/uL Hgb 10.2 L (13.0-17.0) d/dL Hct 29.5 L (39.6-50.0) % MPV 9.2 L (9.5-12.2) FL Eosinophils # 0.43 H (0.04-0.35) X 10*3/uL Potassium 3.1 L (3.5-5.5) mmol/L BUN 4.9 L (9.0-27.0) mg/dL BUN/Creatinine Ratio 6.12 L (12.00-20.00) Ratio POC Glucose (mg/dL) 114 H (70-110) mg/dL Calcium 8.3 L (8.7-10.3) mg/dL Total Bilirubin <0.2 L (0.3-1.2) mg/dL Total Protein 5.4 L (6.2-8.2) d/dL Albumin 3.4 L (3.8-4.9) d/dL Microbiology - Last 24 Hours (Table) 11/15/22 18:37 Stool Culture - Final Stool 11/19/22 15:29 Gram Stain - Preliminary Sputum 11/17/22 11:09 Blood Culture - Preliminary Blood 11/17/22 11:01 Blood Culture - Preliminary Blood Assessment and Plan (1) Colitis Current Visit: Yes Status: Acute Code(s): K52.9 - NONINFECTIVE GASTROENTERITIS AND COLITIS, UNSPECIFIED SNOMED Code(s): 26617489 (2) Failure of outpatient treatment Current Visit: Yes Status: Acute Code(s): Z78.9 - OTHER SPECIFIED HEALTH STATUS SNOMED Code(s): 656265266 (3) Pneumonia Current Visit: Yes Status: Acute Code(s): J18.9 - PNEUMONIA, UNSPECIFIED ORGANISM SNOMED Code(s): 245933773 Plan: 1patient presented hospital with diarrhea abdominal pain this patient who did have evidence of fever with abnormal CT showing colitis involving the transverse descending and sigmoid colon concerning for infectious versus noninfectious colitis interestingly the patient did have a normal white count despite this extensive colitis which we will continue for go against C. difficile colitis as the patient denies any history of recent antibiotic exposure before his symptoms started and do give a history of some improvement in his symptoms with oral Cipro however keeping in mind his extensive colitis underlying infectious source such as C. difficile versus other enteric pathogen not entirely excluded. 2 stool for C. diff PCR came back negative 3patient did have a new fever with a question of possible possible appendicitis in this patient who is status post laparoscopic appendectomy CT did shows improvement in his colitis, also concern for left lower pneumonia 4 sputum for Gram stain and culture has been collected and is currently pending 5- we will continue the patient on Zosyn while waiting for the culture finalized to determine his discharge antibiotics Dictation was produced using [employer] dictation software. please excuse any grammatical, word or spelling errors. Time with Patient: Less than 30
[2022-11-20] MEDS ORDERED: Magnesium Replacement Protocol 1 EACH MISC MISCELLANE PRN (14:54)
[2022-11-20] MEDS ORDERED: MAGNESIUM SULFATE-D5W PMX 1 GM in DEXTROSE/WATER 1 100ML.BAG IVPB ONE (14:54)
--- NOTE | 2022-11-20 16:50 | XR ---
EXAMINATION TYPE: XR chest 1V portable DATE OF EXAM: 11/20/2022 4:10 PM CLINICAL INDICATION:Male, 71 years old with history of shortness of breath; H COMPARISON: Chest radiographs from 11/18/2022 TECHNIQUE: XR chest 1V portable Frontal view of the chest. FINDINGS: Lungs/Pleura: Improved aeration compared to prior with persistent right medial airspace opacities. Th ere is no evidence of pleural effusion, focal consolidation, or pneumothorax. Pulmonary vascularity: Unremarkable. Heart/mediastinum: Cardiomediastinal silhouette is unremarkable. Musculoskeletal: No acute osseous pathology. IMPRESSION: Improved aeration of the lungs with persistent multifocal airspace opacities.
[2022-11-20] MEDS: NON FORMULARY DRUG (Simvastatin 40 MG Tab) PO SCH (21:01)
[2022-11-20] MEDS: ESCITALOPRAM 10 MG TAB PO SCH (21:01)
[2022-11-20] MEDS: AMITRIPTYLINE HCL 25 MG TAB PO SCH (21:02)
[2022-11-20] MEDS: MONTELUKAST 10 MG TAB PO SCH (21:03)
[2022-11-20] MEDS: diazePAM 5 MG TAB PO PRN (22:00)
--- NOTE | 2022-11-20 22:14 | P.PN ---
Subjective Progress Note Date: 11/20/22 This is a pleasant 71-year-old male who presented to the emergency department with significant abdominal pain along with fevers. Patient was seen and evaluated in the emergency department given antibiotics and sent home and was told it was some form of intestine times infection. Patient followed up with his primary care provider Dr. Khan and was prescribed Cipro and was told if symptoms continued or persisted to come to the emergency department. Patient started having increased abdominal pains with increasing fevers and multiple episodes of diarrhea and presented to the emergency department. Patient has a past medical history of coronary artery disease, angina, GERD, hyperlipidemia, hypertension, previous myocardial infarctions, osteoarthritis, history of SVT with ablation, duodenal ulcers, chronic duodenal stricture with esophagitis and hiatal hernia along with anxiety. Patient referred he follows with Dr. Moris GRIFFIN in the outpatient setting for his continued abdominal issues. Patient also has history of anxiety and is a former smoker, denies any illicit drug use other than prescribed and denies alcohol use. Patient reports to nausea although reports has not vomited but continues with abdominal pain. Patient underwent CT abdomen and pelvis in the ER which showed findings concerning for colitis of the transverse, descending, and sigmoid colon that may be infectious or inflammatory illness with secondary mesenteric adenitis. Patient was given a dose of antibiotics in the ER and admitted with infectious disease on consult for failure of outpatient treatment for colitis. Patient reports to me this morning on exam that he has had multiple loose stools and will obtain C. diff as patient has been on a few rounds of antibiotics outpatient. Labs revealed a normal white count of 8.8, hemoglobin 12.1, sodium was 136 with a potassium of 4.0, BUN is 10 and creatinine 0.84, lactic acid is 1.5 and urinalysis was negative. EKG showed sinus rhythm with a heart rate of 82 bpm. 11/15/2022 Patient is evaluated today resting in bed. He reports diarrhea has improved 2 episodes today so far and would like his diet advanced to full liquid/soft diet. He remains on IV metronidazole and IV ceftriaxone for the diarrhea. Immodium will be added. C.Dif was negative. Blood culture negative so far. Magnesium 1.8. Hemodynmically stable. 11/16/2022 Patient is evaluated today on the medical floor. He is continuing to have loose stools multiple episodes. Pending C.diff PCR. Remains on IV ceftriaxone and IV flagyl. Labs are stable today. Diet was increased to low fiber, patient is tolerating. The rest of his home medications have been resumed he is taken off the iv fluids and given oral lasix. His lower extremities having increasing edema. 11/17/2022 Patient is seen in follow-up today continues to have loose stools with abdominal pain. Patient is reporting pain in the lower abdomen along with right lower quadrant. Infectious disease following an ordering CT abdomen which is pending at this time. Patient continues on antibiotics and maintained on oral antibiotics for C. diff. Patient continues to have fevers and not feeling well. Patient reports diarrhea is improving but abdominal pain persists. [place] chest pain or shortness of breath. Patient's lung sounds congested on exam will add chest x-ray. Patient continues to have nausea with no vomiting and not tolerating much oral intake. 11/18/2022 Patient is seen in follow-up this morning status post appendectomy with Dr. Marcus. Patient continues to have low-grade temperatures overnight and is ma intained on IV antibiotics with infectious disease following. Cultures have been negative and C. diff. Patient continues to have some abdominal discomfort and also reporting some mild shortness of breath. Will obtain a chest x-ray. Patient was resumed on home dose of Lasix and will await chest x-ray as patient does have some fine crackles at the bases. Patient's diet has been advanced per surgery although not tolerating much. Patient continues with occasional nausea with no vomiting at this time. Will follow up on repeat labs. 11/19/2022 Patient is seen and evaluated in follow-up today currently just walking back from the bathroom with assistance from his . Patient is weak and will have physical therapy evaluate the patient. General surgery and infectious disease following an patient is status post appendectomy. Patient is continued on antibiotics and did have a low-grade temp of 100.1 this morning. White count has normalized. Patient is reporting a cough and encouraged incentive spirometer and to continue using these 10 times every hour while awake. Encouraged increased activity as tolerated. Tolerating diet with some nausea although no vomiting. Patient continues to have diffuse abdominal pain. 11/20/2022 Patient seen and evaluated in follow-up today with no acute overnight issues noted. Patient is afebrile and maintained on antibiotics with infectious disease following. Gen. surgery following as well is patient is status post appendectomy. White count remains normal and awaiting sputum culture. Patient continues to report some cough with congestion and have encouraged incentive spirometer at least 10 times every hour while awake. Patient reports some continued abdominal tenderness although somewhat improved. Patient reports tolerating diet with some nausea and no vomiting although not eating much and not much of an appetite. Encouraged increased activity as tolerating and awaiting physical therapy evaluation. Will obtain chest x-ray. Review of Systems Constitutional: Reports of fatigue and is afebrile for 24 hours Cardio vascular: denied any chest pain, palpitations Gastrointestinal: Reports nausea, no vomiting, reports some abdominal discomfort mild and not much of an appetite Pulmonary: Denied any shortness of breath, reports continued cough with some congestion Neurologic denied any new focal deficits, reports feeling generalized weakness All inpatient medications were reviewed and appropriate changes in these medica tions as dictated in the interval history and assessment and plan. PHYSICAL EXAMINATION: GENERAL: The patient is awake, alert and oriented x4, Well developed, well nourished. ill-appearing, elderly appearing HEENT: Pupils are round and equally reacting to light. EOMI. no scleral icterus. No conjunctival pallor. Normocephalic, atraumatic. No pharyngeal erythema. No thyromegaly. CARDIOVASCULAR: S1 and S2 muffled PULMONARY: diminished breath sounds bilaterally with no wheezing , faint aircraft stress analyst ckles at the bases noted. ABDOMEN: soft. tender on exam of the right lower and mid quadrant regions . non- distended, normoactive bowel sounds. No palpable organomegaly. MUSCULOSKELETAL: No joint swelling or deformity. EXTREMITIES: No cyanosis, clubbing, or pedal edema. NEUROLOGICAL: Gross neurological examination did not reveal any focal deficits. Diffuse weakness SKIN: No rashes. Assessment: Abdominal pain secondary to colitis involving the transverse, descending, and sigmoid colon with failure of outpatient treatment Diarrhea, multiple episodes and was recently on antibiotics over the last few weeks with failure of outpatient treatment, C. Dif negative. Acute dehydration secondary to diarrhea and loss of appetite Fevers with right lower quadrant tenderness, acute appendicitis status post appendectomy on 11/17/2022 Gastroesophageal reflux disease Hyperlipidemia Hypertension History of chronic duodenal stricture History of anxiety Patient reports history of agent orange exposure History of coronary artery disease GI prophylaxis DVT prophylaxis Full code Plan: Patient is continued on antibiotics with infectious disease following including general surgery as patient had acute appendicitis on CT and is status post appendectomy Patient is afebrile for 24 hours and awaiting sputum culture. Other cultures remain negative Encouraged increased activity as tolerated as patient is extremely weak. Awaiting physical therapy to evaluate the patient Diet has been advanced per surgery although patient is not eating much. Patient reports not much of an appetite with continued mild abdominal pain. Encouraged oral intake with small frequent meals Follow-up chest x-ray today shows some improvement in aeration Incentive spirometer provided and encouraged to continue using at least 10 times every hour while awake Follow-up on repeat labs. Replace potassium and magnesium Patient is continued on antibiotics and awaiting finalized sputum cultures. Due to multiple complex medical issues, prognosis is guarded Possible discharge planning in the next 24-48 hours The impression and plan of care has been dictated by Ayaka Lu, Nurse Practitioner as directed. Dr. Lowell MD I have performed a history and examination and MDM of this patient, discussed the same with the dictator, and agree with the dictator's assessment and plan as written ,documented as a scribe. Based on total visit time, I have performed more than 50% of the visit. Objective - Vital Signs Vital signs: Vital Signs Temp 97.9 F 11/20/22 08:00 Pulse 67 11/20/22 08:00 Resp 16 11/20/22 08:00 BP 135/76 11/20/22 08:00 Pulse Ox 94 L 11/20/22 08:00 FiO2 21 11/19/22 19:50 Intake & Output 11/19/22 11/20/22 11/20/22 18:59 06:59 18:59 Intake Total 400 Output Total 250 Balance 150 Intake: Oral 400 Output: Urine 250 Other: Voiding Method Urinal # Voids 1 5 - Labs CBC & Chem 7: 11/20/22 05:35 11/20/22 05:35 Labs: Abnormal Lab Results - Last 24 Hours (Table) 11/19/22 11/20/22 Range/Units 17:19 05:35 RBC 3.26 L (4.40-5.60) X 10*6/uL Hgb 10.2 L (13.0-17.0) d/dL Hct 29.5 L (39.6-50.0) % MPV 9.2 L (9.5-12.2) FL Eosinophils # 0.43 H (0.04-0.35) X 10*3/uL POC Glucose (mg/dL) 114 H (70-110) mg/dL Microbiology - Last 24 Hours (Table) 11/15/22 18:37 Stool Culture - Final Stool 11/19/22 15:29 Gram Stain - Preliminary Sputum 11/17/22 11:09 Blood Culture - Preliminary Blood 11/17/22 11:01 Blood Culture - Preliminary Blood
[2022-11-21] MEDS: PIPERACILLIN-TAZOBACTAM 3.375 GM in SODIUM CHLORIDE 0.9% 100 ML IVPB SCH ×2 (00:12→10:13)
[2022-11-21] MEDS: HYDROmorphone 1 MG/ML 1 ML SYRINGE IVP PRN (06:20)
[2022-11-21] MEDS: IPRATROPIUM-ALBUTEROL 3 ML NEB INHALATION SCH ×2 (07:47→11:39)
[2022-11-21 08:15] VITALS: RESP 16
[2022-11-21 08:56] LABS: BUN/Creat Ratio 5.12 Ratio (12.00-20.00); Blood Urea Nitrogen 4.1 mg/dL (9.0-27.0); Calcium 8.6 mg/dL (8.7-10.3); Carbon Dioxide 29.6 mmol/L (21.6-31.8); Chloride 102 mmol/L (96-109); Glucose 106 mg/dL (70-110); Magnesium 2.1 mg/dL (1.5-2.4); Potassium 3.3 mmol/L (3.5-5.5); Sodium 142 mmol/L (135-145)
[2022-11-21] MEDS: HEPARIN SODIUM,PORCINE 5,000 UNIT/ML 1 ML VIAL SQ SCH (09:08)
[2022-11-21] MEDS: GABAPENTIN 300 MG CAP PO SCH (09:08)
[2022-11-21] MEDS: SODIUM CHLORIDE TAB 1 GM TAB PO SCH (09:08)
[2022-11-21] MEDS: DICYCLOMINE 10 MG CAP PO SCH (09:09)
[2022-11-21] MEDS: METOPROLOL TARTRATE 25 MG TAB PO SCH (09:09)
[2022-11-21] MEDS: FUROSEMIDE 20 MG TAB PO SCH (09:09)
[2022-11-21] MEDS: LOSARTAN 50 MG TAB PO SCH (09:09)
[2022-11-21] MEDS: BRIMONIDINE TARTRATE 0.2% DROPS 5 ML BTL BOTH EYES SCH (09:10)
[2022-11-21] MEDS: TIMOLOL 0.5% OPHTH DROPS 5 ML BTL BOTH EYES SCH (09:10)
[2022-11-21] MEDS ORDERED: Potassium Replacement Protocol 1 EACH MISC MISCELLANE PRN (10:01)
[2022-11-21] MEDS: PANTOPRAZOLE 40 MG/10 ML VIAL IVP SCH (10:10)
[2022-11-21] MEDS: POTASSIUM CHLORIDE ER 20 MEQ TAB.ER PO SCH ×4 (11:20→15:20)
[2022-11-21] MEDS: HYDROcodone/APAP 5-325MG 1 EACH TAB PO PRN (11:24)
--- NOTE | 2022-11-21 12:01 | P.PN ---
Subjective Progress Note Date: 11/21/22 CHIEF COMPLAINT: Appendicitis HISTORY OF PRESENT ILLNESS: Patient is postop day #4 status post laparoscopic appendectomy. Patient reports his pain is controlled. He reports having bowel movements. Denies any nausea or vomiting. He is tolerating diet. Patient reports that he thinks she is going home today. Afebrile. WBC 6.2 to potassium is 3.3 and being replaced. Mg 2.1 PHYSICAL EXAM: VITAL SIGNS: Reviewed. GENERAL: Well-developed in no acute distress. ABDOMEN: Soft. Nondistended. Incision sites clean dry and intact NEUROLOGIC: Alert and oriented. Cranial nerves II through XII grossly intact. ASSESSMENT: 1. Early appendicitis status post laparoscopic appendectomy 2. Possible pneumonia PLAN: -Patient can be discharged from surgical standpoint when medically cleared -Continue regular diet -Antibiotics per ID service -Encouraged patient to use incentive spirometer -Encouraged patient to ambulate -Continue pain meds as needed -DVT prophylaxis subcu heparin Physician Support Associate note has been reviewed by physician. Signing provider agrees with the documented findings, assessment, and plan of care. I have personally seen and examined the patient, reviewed the MUSEUM HOST/HOSTESS /PAs history, exam and MDM and agree with the assessment and plan as written. Based on total visit time, I have performed more than 50% of the visit. As above: Patient doing well. No abdominal pain. May discharge. Follow-up as outpatient. Objective - Vital Signs Vital signs: Vital Signs Temp 98.3 F 11/21/22 08:10 Pulse 83 11/21/22 09:15 Resp 16 11/21/22 09:15 BP 147/73 11/21/22 08:10 Pulse Ox 94 L 11/21/22 08:10 FiO2 21 11/19/22 19:50 Intake & Output 11/20/22 11/21/22 11/21/22 18:59 06:59 18:59 Weight 90.718 kg Other: Voiding Method Toilet Urinal Toilet # Voids 4 1 - Labs CBC & Chem 7: 11/20/22 05:35 11/21/22 05:27 Labs: Abnormal Lab Results - Last 24 Hours (Table) 11/21/22 Range/Units 05:27 Potassium 3.3 L (3.5-5.5) mmol/L BUN 4.1 L (9.0-27.0) mg/dL BUN/Creatinine Ratio 5.12 L (12.00-20.00) Ratio Calcium 8.6 L (8.7-10.3) mg/dL Microbiology - Last 24 Hours (Table) 11/19/22 15:29 Gram Stain - Final Sputum Sputum Culture - Final 11/17/22 11:09 Blood Culture - Preliminary Blood 11/17/22 11:01 Blood Culture - Preliminary Blood 11/15/22 18:37 Stool Culture - Final Stool
[2022-11-21 13:12] VITALS: BP 146/83; PULSE 71; TEMP 98.5
--- NOTE | 2022-11-21 13:16 | P.PN ---
Subjective Progress Note Date: 11/21/22 Principal diagnosis: Colitis Patient is a 71-year-old male with a past medical history significant for hypertension hyperlipidemia [place] osteoarthritis reflux coronary disease has been dealing with diarrhea that has been going on for more than a week , patient did have CT of abdominal pelvis with evidence of colitis from transverse colon to descending and sigmoid colon concerning for infectious versus inflammatory process.Patient is status post laparoscopic appendectomy completed on 11/17/2022. On today's evaluation that is 11/21/2022, the patient denies any fever or any chills , the patient is breathing comfortably on room air , the patient denies chest pain shortness of breath the patient cough is decreased intensity mostly dry in nature, no nausea or vomiting, no abdominal pain or diarrhea Patient white count is 6.22 as of yesterday, creatinine is 0.8, blood cultures negative sputum culture negative Objective - Vital Signs Vital signs: Vital Signs Temp 98.3 F 11/21/22 08:10 Pulse 83 11/21/22 09:15 Resp 16 11/21/22 09:15 BP 147/73 11/21/22 08:10 Pulse Ox 94 L 11/21/22 08:10 FiO2 21 11/19/22 19:50 Intake & Output 11/20/22 11/21/22 11/21/22 18:59 06:59 18:59 Weight 90.718 kg Other: Voiding Method Toilet Urinal Toilet # Voids 4 1 - Exam GENERAL DESCRIPTION: An elderly male lying in bed in no distress RESPIRATORY SYSTEM: Unlabored breathing , decreased breath sounds at bases HEART: S1 S2 regular rate and rhythm , ABDOMEN: Soft , no tenderness EXTREMITIES: No edema feet - Labs CBC & Chem 7: 11/20/22 05:35 11/21/22 05:27 Labs: Abnormal Lab Results - Last 24 Hours (Table) 11/21/22 Range/Units 05:27 Potassium 3.3 L (3.5-5.5) mmol/L BUN 4.1 L (9.0-27.0) mg/dL BUN/Creatinine Ratio 5.12 L (12.00-20.00) Ratio Calcium 8.6 L (8.7-10.3) mg/dL Microbiology - Last 24 Hours (Table) 11/19/22 15:29 Gram Stain - Final Sputum Sputum Culture - Final 11/17/22 11:09 Blood Culture - Preliminary Blood 11/17/22 11:01 Blood Culture - Preliminary Blood 11/15/22 18:37 Stool Culture - Final Stool Assessment and Plan (1) Colitis Current Visit: Yes Status: Acute Code(s): K52.9 - NONINFECTIVE GASTROENTERITIS AND COLITIS, UNSPECIFIED SNOMED Code(s): 18575622 (2) Failure of outpatient treatment Current Visit: Yes Status: Acute Code(s): Z78.9 - OTHER SPECIFIED HEALTH STATUS SNOMED Code(s): 797312243 (3) Pneumonia Current Visit: Yes Status: Acute Code(s): J18.9 - PNEUMONIA, UNSPECIFIED ORGANISM SNOMED Code(s): 846642819 Plan: 1patient presented hospital with diarrhea abdominal pain this patient who did have evidence of fever with abnormal CT showing colitis involving the transverse descending and sigmoid colon concerning for infectious versus noninfectious colitis interestingly the patient did have a normal white count despite this e xtensive colitis which we will continue for go against C. difficile colitis as the patient denies any history of recent antibiotic exposure before his symptoms started and do give a history of some improvement in his symptoms with oral Cipro however keeping in mind his extensive colitis underlying infectious source such as C. difficile versus other enteric pathogen not entirely excluded. 2 stool for C. diff PCR came back negative 3patient did have a new fever with a question of possible possible appendicitis in this patient who is status post laparoscopic appendectomy CT did shows improvement in his colitis, also concern for left lower pneumonia 4 sputum for Gram stain and culture has been negative for any resistant pathogen and blood culture have been negative 5- patient has showed overall clinical improvement he'll be able to finish therapy with oral Augmentin also advised to increase his probiotic/yogurt intake and close outpatient follow-up discussed with the nurse practitioner for admitting team Dictation was produced using [employer] dictation software. please excuse any gramm atical, word or spelling errors. Time with Patient: Less than 30
--- NOTE | 2022-11-25 14:37 | P.GSCN ---
History of Present Illness Consult date: 11/25/22 Reason for Consult: Acute appendicitis History of present illness: 71-year-old male during his last hospital stay he underwent acute appendicitis on 11/17. I discussed including number dictating a consult note on this patient however I was just notified that there is no consult note in the computer. Unsure why that is the case. Patient was seen for right lower quadrant pain and fevers. Patient had right lower quadrant tenderness on exam. CAT scan showed progressive inflammation at the appendix which was mild. The colitis that was present on the first CAT scan had improved. Patient described nausea. Some bloating. Review of Systems The patient denies any acute changes in vision or hearing, no dysphagia or odynophagia, no chest pain or shortness of breath, no dysuria or hematuria, no headache, no runny nose, no rectal bleeding or melena, no unexplained weight loss Past Medical History Past Medical History: Coronary Artery Disease (CAD), Chest Pain / Angina, Eye Disorder, GERD/Reflux, Hyperlipidemia, Hypertension, Myocardial Infarction (DC), Osteoarthritis (OA) Additional Past Medical History / Comment(s): recent admission for nausea/vomiting/diarrhea, Neck pain, SVT with ablation, duodenal ulcers, chronic duodenal stricture, bilateral glaucoma, sinusitis, migraines, anemia, esophagitis,hiatal hernia, chronic back pain, past fx ribs/sternum Last Myocardial Infarction Date:: 1999 History of Any Multi-Drug Resistant Organisms: None Reported Past Surgical History: Cardiac Ablation, Cholecystectomy, Heart Catheterization With Stent Additional Past Surgical History / Comment(s): stent bilateral eyes 03/2018, PCI with 3 stents, sinus surgery, cataracts bilaterally with lens implants, EGDs/colonoscopies, Past Anesthesia/Blood Transfusion Reactions: No Reported Reaction Additional Past Anesthesia/Blood Transfusion Reaction / Comm: Pt has had past multiple transfusions without reaction. Date of Last Stent Placement:: 1999 Past Psychological History: Anxiety Additional Psychological History / Comment(s): Pt resides with his spouse. He served in the [employer]. He is independent. Smoking Status: Never smoker Past Alcohol Use History: None Reported Additional Past Alcohol Use History / Comment(s): Patient was a smoker for only a few years in his 40s. Past Drug Use History: None Reported - Past Family History Father Additional Family Medical History / Comment(s): Father at the age of 68yrs from a ruptured aortic aneurysm. Mother Additional Family Medical History / Comment(s): Mother lived into her 80's. Brother(s) Family Medical History: Cancer Additional Family Medical History / Comment(s): The patient had 3 brothers. One from colon cancer with metastatic disease to the brain. One brother at age 79 from a myocardial infarction. He has 1 brother that is alive with history of skin cancer and diabetes. Sister(s) Additional Family Medical History / Comment(s): The patient is a total of 3 sisters. One in her 80s from myocardial infarction. One sister at age 58 from coronary artery disease and also had a valvular disorder. Patient has one sister alive with diabetes and multiple other medical conditions. Patient has 2 sons and 1 daughter with no major medical problems. Medications and Allergies Home Medications Medication Instructions Recorded Confirmed Type Simvastatin [Zocor] 40 mg PO HS 07/12/13 11/14/22 History Dicyclomine [Bentyl] 10 mg PO TID 06/04/17 11/14/22 History Losartan Potassium 50 mg PO DAILY 09/20/18 11/14/22 History Metoprolol Tartrate [Lopressor] 25 mg PO BID 09/20/18 11/14/22 History Ondansetron [Zofran ODT] 4 mg PO BID PRN 09/20/18 11/14/22 History Escitalopram [Lexapro] 10 mg PO HS 10/06/18 11/14/22 History diazePAM [Valium] 5 mg PO HS PRN 12/25/19 11/14/22 History Amitriptyline HCl [Elavil] 12.5 mg PO HS 09/21/21 11/14/22 History Gabapentin 800 mg PO TID 09/21/21 11/14/22 History Ketoconazole 2% Shampoo [Nizoral] 1 applic TOPICAL Q72H PRN 09/21/21 11/14/22 History Brimonidine Tartrate/Timolol 1 drop BOTH EYES BID 11/14/22 11/14/22 History [Brimonidine-Timolol 0.2%-0.5%] Butalb/Acetaminophen/Caffeine 1 cap PO Q4HR PRN 11/14/22 11/14/22 History [Fioricet 50-300-40 mg Capsule] Clindamycin Phosphate [Clindagel 1 applic TOPICAL BID 11/14/22 11/14/22 History 1%] Furosemide [Lasix] 20 mg PO DAILY 11/14/22 11/14/22 History Montelukast [Singulair] 10 mg PO HS 11/14/22 11/14/22 History Sodium Chloride Tab 1 gm PO TID 11/14/22 11/14/22 History Acetaminophen Tab [Tylenol] 650 mg PO Q6HR PRN tab 11/21/22 Rx Amoxic-Pot Clav 875-125Mg 1 tab PO Q12HR 10 Days #20 tab 11/21/22 Rx [Augmentin 875-125] HYDROcodone/APAP 5-325MG [[place] 1 tab PO Q6HR PRN 3 Days #12 tab 11/21/22 Rx 5-325] Allergies Allergy/AdvReac Type Severity Reaction Status Date / Time atorvastatin [From Lipitor] AdvReac MUSCLE Verified 11/14/22 09:34 CRAMPS hydrochlorothiazide AdvReac Patient Verified 11/14/22 09:34 had episode of severe hyponatremia requiring hospita ropinirole [From Requip] AdvReac Hallucinati Verified 11/14/22 09:34 ons scopolamine AdvReac Hallucinati Verified 11/14/22 09:34 ons Surgical - Exam Vital Signs Temp Pulse Resp BP Pulse Ox 102.9 F H 105 H 20 130/73 95 11/13/22 21:12 11/13/22 21:12 11/13/22 21:12 11/13/22 21:12 11/13/22 21:12 Physical exam: General: Well-developed, well-nourished HEENT: Normocephalic, sclerae nonicteric Abdomen: Mild distention, mild right lower quadrant tenderness Extremities: No edema Neuro: Alert and oriented Results - Labs 11/20/22 05:35 11/21/22 05:27 Assessment and Plan (1) Acute appendicitis Narrative/Plan: 71-year-old male with febrile illness. Patient with CAT scan showing increased inflammation of the appendix. Options reviewed with patient. He and I decided to proceed with laparoscopic, possible open appendectomy. We had discussed the risks of bleeding, infection, findings of normal appendix, bladder and bowel injury, hernia, conversion to an open procedure. He understood and wished to proceed. Status: Acute Code(s): K35.80 - UNSPECIFIED ACUTE APPENDICITIS SNOMED Code(s): 94102440
--- NOTE | 2022-11-26 12:05 | CDI ---
Documentation Clarification Form Date: 11/26/2022 11:26:36 AM From: Patti Valdes RN, CCDS Email: [email or web address] Admit Date: 11/14/2022 01:40:00 AM Patient Name: Clyde Pascual Visit Number: [id number] Discharge Date: 11/21/2022 05:38:00 PM ATTENTION: The Clinical Documentation Specialists (CDI) and [facility] Coding Staff appreciate your assistance in clarifying documentation. Please respond to the clarification below the line at the bottom and electronically sign. The CDI & [facility] Coding staff will review the response and follow-up if needed. Please note: Queries are made part of the Legal Health Record. If you have any questions, please contact the author of this message via ITS. Dr. Brayan Tijerina The patient had abdominal pain and fevers. Based on this information and the findings below, is there an additional diagnosis that is clinically appropriate for this patient? History/Risk Factors: GERD, HTN, CAD, HLD, duodenal ulcers and hiatal hernia. Patient with recent ED visit, found to have an intestinal infection and sent home on po antibiotics. This admission, presented to the ED with increased abdominal pain, fevers and diarrhea. Admitted with failure of outpatient treatment for colitis. Clinical Indicators: ED: "Vital signs on admission did show tachycardia and an increased temperature." H&P: "reports fever prior to ED arrival." 11/14 CT A/P: Findings concerning for colitis of the transverse, descending and sigmoid colon, which may be infectious or inflammatory illness. Secondary mesenteric adenitis. 11/13-11/20 WBC: 8.8-5.6-10.9-6.89-6.22 11/13 Lactic acid: 1.5 11/17-11/19 CRP level: 5.70-8.6-12.50 11/19 Procalcitonin: 0.23 11/13 Temp 102.9; 11/17 Temp 102.6-103.1-98.8 11/13 HR 105 Treatment: 11/14 ID Consult: "patient presented to hospital with diarrhea and abdominal pain. Evidence of fever with abnormal CT showing colitis involving the transverse descending and sigmoid colon concerning for infectious versus noninfectious colitis. Interestingly the patient did have a normal white count despite this extensive colitis." Antibiotics: IV Rocephin 2gm Q24H 11/14-11/16; IV Levaquin 500mg x1 on 11/14; IV Flagyl 500mg x1 on 11/14 then Q8H 11/14-11/17; IV Zosyn 3.375gm Q8H 11/17-11/21; Vancomycin 500mg po QID 11/14-11/16 IV Bolus: 0.9 NS IV bolus x5L total 11/13-11/14 Is there an additional diagnosis that is clinically appropriate for this patient? [ x ] Sepsis, present on admission [ ] No additional diagnosis [ ] Other, please specify [ ] Unable to determine SIRS Criteria: 2 or more of the following may indicate SIRS Temperature < 96.8F (36C) or > 101.0F (38.3C) Heart Rate > 90 bpm Respiratory Rate > 20 breaths/min or PaCO2 < 32 mmHg White Blood Cell Count > 12,000 or < 4,000 cells/mm3 or > 10% bands MTDD
--- NOTE | 2022-11-27 06:26 | P.DS ---
Providers Date of admission: 11/14/22 01:40 Expected date of discharge: 11/21/22 Attending physician: Kanika Marquez MD Consults: 11/14/22 01:38 Consult Physician Routine Consulting Provider: Padmini Womack Consult Reason/Comments: Colitis, failed op Do you want consulting provider notified?: Yes, Notify in am 11/17/22 14:31 Consult Physician Urgent Consulting Provider: Isiah Marcus Consult Reason/Comments: appendicitis/ previous surgeries with [facility]outt Do you want consulting provider notified?: Yes Primary care physician: Jocelin Khan Hospital Course: Final diagnosis Abdominal pain secondary to colitis involving the transverse, descending, and sigmoid colon with failure of outpatient treatment Sepsis, present on admission secondary to colitis Diarrhea, multiple episodes and was recently on antibiotics over the last few weeks with failure of outpatient treatment, C. Dif negative. Acute dehydration secondary to diarrhea and loss of appetite Fevers with right lower quadrant tenderness, acute appendicitis status post appendectomy on 11/17/2022 Gastroesophageal reflux disease Hyperlipidemia Hypertension History of chronic duodenal stricture History of anxiety Patient reports history of agent orange exposure History of coronary artery disease GI prophylaxis DVT prophylaxis Full code Discharge disposition Patient is being discharged in a stable condition with guarded prognosis to home. Patient will follow-up with Dr. Khan in the outpatient setting upon discharge. Patient is to continue with oral antibiotics in the form of Augmentin twice daily for the next 10 days and close outpatient follow-up with general surgery as scheduled. Total time taken is greater than 35 minutes. Hospital course This is a 71-year-old male who was recently admitted with abdominal pain. Fevers, features of sepsis with failure of outpatient treatment was found to have colitis. Multiple medical consultations following including infectious disease and general surgery patient also had an acute appendicitis status post appendectomy. Patient continued to have fevers and abdominal pain that was slowly improving. C. diff testing was negative and cultures were negative. Patient will continue on oral Augmentin twice daily for 10 day course and close outpatient follow-up with infectious disease as well as general surgery. Patient has been cleared by consultations for discharge. Please refer to other consultation notes for further HPI. Currently no reports of chest pain, shortness of breath, or palpitations. Patient is afebrile. No reports of shiva sea or vomiting and patient is tolerating diet. Patient will be discharged home today. Physical exam: Gen: This is a 71-year-old male who is awake, alert and oriented 3, well- developed, well-nourished, elderly-appearing HEENT: Head is atraumatic, normocephalic. Pupils equal, round. Sclerae is anicteric. NECK: Supple. No JVD. No lymphadenopathy. No thyromegaly. LUNGS: Clear to auscultation. No wheezes or rhonchi. No intercostal retractions. HEART: Regular rate and rhythm. No murmur. ABDOMEN: Soft. Bowel sounds are present. No masses. No tenderness. EXTREMITIES: No pedal edema. No calf tenderness. NEUROLOGICAL: Patient is awake, alert and oriented x3. Cranial nerves 2 through 12 are grossly intact. Diffusely weak Please refer to medication reconciliation sheet for a list of medications. The impression and plan of care has been dictated by Ayaka Lu, Nurse Practitioner as directed. Dr. Lowell MD I have performed a history and examination and MDM of this patient, discussed the same with the dictator, and agree with the dictator's assessment and plan as written ,documented as a scribe. Based on total visit time, I have performed more than 50% of the visit. Patient Condition at Discharge: Stable Plan - Discharge Summary Discharge Rx Participant: No New Discharge Prescriptions: New HYDROcodone/APAP 5-325MG [[place] 5-325] 1 tab PO Q6HR PRN 3 Days #12 tab PRN Reason: Pain Amoxic-Pot Clav 875-125Mg [Augmentin 875-125] 1 tab PO Q12HR 10 Days #20 tab Acetaminophen Tab [Tylenol] 650 mg PO Q6HR PRN tab PRN Reason: Fever And/ Or Pain Continue Simvastatin [Zocor] 40 mg PO HS Dicyclomine [Bentyl] 10 mg PO TID Metoprolol Tartrate [Lopressor] 25 mg PO BID Ondansetron [Zofran ODT] 4 mg PO BID PRN PRN Reason: Nausea Losartan Potassium 50 mg PO DAILY Escitalopram [Lexapro] 10 mg PO HS diazePAM [Valium] 5 mg PO HS PRN PRN Reason: INSOMNIA/ANXIETY Butalb/Acetaminophen/Caffeine [Fioricet 50-300-40 mg Capsule] 1 cap PO Q4HR PRN PRN Reason: Headache Ketoconazole 2% Shampoo [Nizoral] 1 applic TOPICAL Q72H PRN PRN Reason: Skin Irritation Amitriptyline HCl [Elavil] 12.5 mg PO HS Gabapentin 800 mg PO TID Clindamycin Phosphate [Clindagel 1%] 1 applic TOPICAL BID Furosemide [Lasix] 20 mg PO DAILY Montelukast [Singulair] 10 mg PO HS Brimonidine Tartrate/Timolol [Brimonidine-Timolol 0.2%-0.5%] 1 drop BOTH EYES BID Sodium Chloride Tab 1 gm PO TID Discontinued metroNIDAZOLE [Flagyl] 500 mg PO TID Discharge Medication List Simvastatin [Zocor] 40 mg PO HS 07/12/13 [History] Dicyclomine [Bentyl] 10 mg PO TID 06/04/17 [History] Losartan Potassium 50 mg PO DAILY 09/20/18 [History] Metoprolol Tartrate [Lopressor] 25 mg PO BID 09/20/18 [History] Ondansetron [Zofran ODT] 4 mg PO BID PRN 09/20/18 [History] Escitalopram [Lexapro] 10 mg PO HS 10/06/18 [History] diazePAM [Valium] 5 mg PO HS PRN 12/25/19 [History] Amitriptyline HCl [Elavil] 12.5 mg PO HS 09/21/21 [History] Gabapentin 800 mg PO TID 09/21/21 [History] Ketoconazole 2% Shampoo [Nizoral] 1 applic TOPICAL Q72H PRN 09/21/21 [History] Brimonidine Tartrate/Timolol [Brimonidine-Timolol 0.2%-0.5%] 1 drop BOTH EYES BID 11/14/22 [History] Butalb/Acetaminophen/Caffeine [Fioricet 50-300-40 mg Capsule] 1 cap PO Q4HR PRN 11/14/22 [History] Clindamycin Phosphate [Clindagel 1%] 1 applic TOPICAL BID 11/14/22 [History] Furosemide [Lasix] 20 mg PO DAILY 11/14/22 [History] Montelukast [Singulair] 10 mg PO HS 11/14/22 [History] Sodium Chloride Tab 1 gm PO TID 11/14/22 [History] Acetaminophen Tab [Tylenol] 650 mg PO Q6HR PRN tab 11/21/22 [Rx] Amoxic-Pot Clav 875-125Mg [Augmentin 875-125] 1 tab PO Q12HR 10 Days #20 tab 11/21/22 [Rx] HYDROcodone/APAP 5-325MG [[place] 5-325] 1 tab PO Q6HR PRN 3 Days #12 tab 11/21/22 [Rx] Follow up Appointment(s)/Referral(s): Isiah Marcus MD [Medical Doctor] - 1 Week (call office for follow up appt) Jocelin Khan MD [Primary Care Provider] - 1-2 days (call office for follow up appt) Padmini Womack MD [STAFF PHYSICIAN] - 1 Week (call office for follow up appt) Patient Instructions/Handouts: Hydrocodone/Acetaminophen (By mouth), Amoxicillin/Clavulanate Potassium (By mouth), Laparoscopic Appendectomy (DC) Activity/Diet/Wound Care/Special Instructions: Activity Limited until follow-up Follow-up with primary care provider on discharge Continue taking medications as prescribed Follow-up with general surgery in 1 week Follow-up with infectious disease outpatient Continue with antibiotics until finished Continue using incentive spirometer at least 10 times every hour while awake Continue current diet and slowly advance as tolerated Repeat labs in the next few days Discharge Disposition: HOME SELF-CARE
== END 2022-11-21 17:38 | disposition home or self-care (01) | DRG 853 ==
LOC: EC 21:10 → 5NMEDONC 11-14 01:40
PROVIDERS: ADMIT Internal Medicine; ATTEND Internal Medicine
PROC: 0DTJ4ZZ Resection of Appendix, Percutaneous Endoscopic Approach (ICD-10-PCS; principal; 2022-11-17 11:10)
DX: A41.9 Sepsis, unspecified organism (principal); J18.9 Pneumonia, unspecified organism; K35.80 Unspecified acute appendicitis; K52.9 Noninfective gastroenteritis and colitis, unspecified; I10 Essential (primary) hypertension; I25.10 Atherosclerotic heart disease of native coronary artery without angina pectoris; E78.5 Hyperlipidemia, unspecified; G89.29 Other chronic pain; M54.9 Dorsalgia, unspecified; I88.0 Nonspecific mesenteric lymphadenitis; E86.0 Dehydration; F41.9 Anxiety disorder, unspecified; M19.90 Unspecified osteoarthritis, unspecified site; R60.0 Localized edema; K21.00 Gastro-esophageal reflux disease with esophagitis, without bleeding; K44.9 Diaphragmatic hernia without obstruction or gangrene; Z77.098 Contact with and (suspected) exposure to other hazardous, chiefly nonmedicinal, chemicals; Z95.5 Presence of coronary angioplasty implant and graft; Z87.11 Personal history of peptic ulcer disease; Z79.890 Hormone replacement therapy; Z88.8 Allergy status to other drugs, medicaments and biological substances; I25.2 Old myocardial infarction; Z87.891 Personal history of nicotine dependence; Z86.79 Personal history of other diseases of the circulatory system; Z79.899 Other long term (current) drug therapy; Z80.0 Family history of malignant neoplasm of digestive organs; Z80.8 Family history of malignant neoplasm of other organs or systems; Z68.26 Body mass index [BMI] 26.0-26.9, adult; Z87.19 Personal history of other diseases of the digestive system
CPT/HCPCS: 36415; 71045; 74177; 80048; 80053; 81003; 83605; 83735; 83880; 84145; 85025; 85610; 85730; 86140; 87040; 87045; 87046; 87070; 87205; 87324; 87493; 87636; 87651; 88304; 93005; 94640; 94760; 96361; 96365; 96375; 96376; 99285

== ENCOUNTER 2023-08-03 14:30 | Emergency (ER) | payer MEDICARE ==
--- NOTE | 2023-08-03 16:46 | ED ---
Dizziness HPI - General Chief Complaint: Dizziness Time Seen by Provider: 08/03/23 14:48 Source: patient, family, RN notes reviewed Mode of arrival: wheelchair Limitations: no limitations - History of Present Illness Initial Comments: This is a 72-year-old male presents emergency department chief complaint of dizziness and hypotension. Patient states that he was going for a follow-up appointment with his event lighting specialist this afternoon was reported that he had a low blood pressure 89/49. Patient states that before his blood pressure was read he is endorsing feelings of dizziness, lightheadedness and fatigue. States that his sec reporting consultant recently changed his blood pressure medications about 2 weeks ago where they discontinued his Lasix and increase the dose of los brice. Patient is additionally on potassium and sodium resupplementation. Like, patient is denying chest pain, chest pressure, palpitations, dizziness, lightheadedness, fatigue, nausea, vomiting, diaphoresis. - Related Data Home Medications Medication Instructions Recorded Confirmed Simvastatin [Zocor] 40 mg PO HS 07/12/13 11/14/22 Dicyclomine [Bentyl] 10 mg PO TID 06/04/17 11/14/22 Losartan Potassium 50 mg PO DAILY 09/20/18 11/14/22 Metoprolol Tartrate [Lopressor] 25 mg PO BID 09/20/18 11/14/22 Ondansetron [Zofran ODT] 4 mg PO BID PRN 09/20/18 11/14/22 Escitalopram [Lexapro] 10 mg PO HS 10/06/18 11/14/22 diazePAM [Valium] 5 mg PO HS PRN 12/25/19 11/14/22 Amitriptyline HCl [Elavil] 12.5 mg PO HS 09/21/21 11/14/22 Gabapentin 800 mg PO TID 09/21/21 11/14/22 Ketoconazole 2% Shampoo [Nizoral] 1 applic TOPICAL Q72H PRN 09/21/21 11/14/22 Brimonidine Tartrate/Timolol 1 drop BOTH EYES BID 11/14/22 11/14/22 [Brimonidine-Timolol 0.2%-0.5%] Butalb/Acetaminophen/Caffeine 1 cap PO Q4HR PRN 11/14/22 11/14/22 [Fioricet 50-300-40 mg Capsule] Clindamycin Phosphate [Clindagel 1 applic TOPICAL BID 11/14/22 11/14/22 1%] Furosemide [Lasix] 20 mg PO DAILY 11/14/22 11/14/22 Montelukast [Singulair] 10 mg PO HS 11/14/22 11/14/22 Sodium Chloride Tab 1 gm PO TID 11/14/22 11/14/22 Previous Rx's Medication Instructions Recorded Acetaminophen Tab [Tylenol] 650 mg PO Q6HR PRN tab 11/21/22 Amoxic-Pot Clav 875-125Mg 1 tab PO Q12HR 10 Days #20 tab 11/21/22 [Augmentin 875-125] HYDROcodone/APAP 5-325MG [[place] 1 tab PO Q6HR PRN 3 Days #12 tab 11/21/22 5-325] Allergies Allergy/AdvReac Type Severity Reaction Status Date / Time atorvastatin [From Lipitor] AdvReac MUSCLE Verified 08/03/23 16:37 CRAMPS hydrochlorothiazide AdvReac Patient Verified 08/03/23 16:37 had episode of severe hyponatremia requiring hospita ropinirole [From Requip] AdvReac Hallucinati Verified 08/03/23 16:37 ons scopolamine AdvReac Hallucinati Verified 08/03/23 16:37 ons Review of Systems ROS Statement: Those systems with pertinent positive or pertinent negative responses have been documented in the HPI. ROS Other: All systems not noted in ROS Statement are negative. Past Medical History Past Medical History: Coronary Artery Disease (CAD), Chest Pain / Angina, Eye Disorder, GERD/Reflux, Hyperlipidemia, Hypertension, Myocardial Infarction ([place]), Osteoarthritis (OA) Additional Past Medical History / Comment(s): recent admission for nausea/vomiting/diarrhea, Neck pain, SVT with ablation, duodenal ulcers, chronic duodenal stricture, bilateral glaucoma, sinusitis, migraines, anemia, esophagitis,hiatal hernia, chronic back pain, past fx ribs/sternum Last Myocardial Infarction Date:: 1999 History of Any Multi-Drug Resistant Organisms: None Reported Past Surgical History: Cardiac Ablation, Cholecystectomy, Heart Catheterization With Stent Additional Past Surgical History / Comment(s): stent bilateral eyes 03/2018, PCI with 3 stents, sinus surgery, cataracts bilaterally with lens implants, EGDs/colonoscopies, Past Anesthesia/Blood Transfusion Reactions: No Reported Reaction Additional Past Anesthesia/Blood Transfusion Reaction / Comment(s): Pt has had past multiple transfusions without reaction. Date of Last Stent Placement:: 1999 Past Psychological History: Anxiety Smoking Status: Never smoker Past Alcohol Use History: None Reported Past Drug Use History: None Reported - Past Family History Father Additional Family Medical History / Comment(s): Father at the age of 68yrs from a ruptured aortic aneurysm. Mother Additional Family Medical History / Comment(s): Mother lived into her 80's. Brother(s) Family Medical History: Cancer Additional Family Medical History / Comment(s): The patient had 3 brothers. One from colon cancer with metastatic disease to the brain. One brother at age 79 from a myocardial infarction. He has 1 brother that is alive with history of skin cancer and diabetes. Sister(s) Additional Family Medical History / Comment(s): The patient is a total of 3 sisters. One in her 80s from myocardial infarction. One sister at age 58 from coronary artery disease and also had a valvular disorder. Patient has one sister alive with diabetes and multiple other medical conditions. Patient has 2 sons and 1 daughter with no major medical problems. General Exam Limitations: no limitations General appearance: alert, in no apparent distress Head exam: Present: atraumatic, normocephalic, normal inspection Eye exam: Present: normal appearance, PERRL, EOMI. Absent: scleral icterus, conjunctival injection, periorbital swelling ENT exam: Present: normal exam, mucous membranes moist Neck exam: Present: normal inspection. Absent: tenderness, meningismus, lymphadenopathy Respiratory exam: Present: normal lung sounds bilaterally. Absent: respiratory distress, wheezes, rales, rhonchi, stridor Cardiovascular Exam: Present: regular rate, normal rhythm, normal heart sounds. Absent: systolic murmur, diastolic murmur, rubs, gallop, clicks GI/Abdominal exam: Present: soft, normal bowel sounds. Absent: distended, tenderness, guarding, rebound, rigid Extremities exam: Present: normal inspection, full ROM, normal capillary refill. Absent: tenderness, pedal edema, joint swelling, calf tenderness Back exam: Present: normal inspection Neurological exam: Present: alert, oriented X3, CN II-XII intact Psychiatric exam: Present: normal affect, normal mood Skin exam: Present: warm, dry, intact, normal color. Absent: rash Course Vital Signs 08/03/23 08/03/23 14:30 18:27 Temperature 97.8 F 98.0 F Pulse Rate 65 62 Respiratory 16 18 Rate Blood Pressure 110/67 126/59 O2 Sat by Pulse 98 97 Oximetry Medical Decision Making - Medical Decision Making Was pt. sent in by a medical professional or institution (, [place], [facility], urgent care, hospital, or shelter...) When possible be specific @ -No Did you speak to anyone other than the patient for history (EMS, parent, family, police, friend...)? What history was obtained from this source @ -No Did you review nursing and triage notes (agree or disagree)? Why? @ -I reviewed and disagree with nursing and triage notes. On my evaluation of the patient he is currently denying symptoms of chest pain, chest pressure, dizziness, lightheadedness, palpitations or fatigue. Were old charts reviewed (outside hosp., previous admission, EMS record, old EKG, old radiological studies, urgent care reports/EKG's, shelter records)? Report findings @ -No old charts were reviewed Differential Diagnosis (chest pain, altered mental status, abdominal pain women, abdominal pain men, vaginal bleeding, weakness, fever, dyspnea, syncope, headache, dizziness, GI bleed, back pain, seizure, CVA, palpatations, mental health, musculoskeletal)? @ -Differential Dizziness: Benign paroxysmal positional Vertigo, Menieres disease, otitis media, acoustic neuroma, vertebrobasilar insufficiency, cerebellar stroke, encephalitis, hypovolemic, arrhythmia, coronary artery syndrome, anemia, this is not meant to be an all-inclusive list EKG interpreted by me (3pts min.). @ -Completed at 1446, sinus rhythm with first-degree AV block, ventricular rate 61, parable 211, QTc 382. No acute signs of ischemia. X-rays interpreted by me (1pt min.). @ -None done CT interpreted by me (1pt min.). @ -None done U/S interpreted by me (1pt. min.). @ -None done What testing was considered but not performed or refused? (CT, X-rays, U/S, labs)? Why? @ -None What meds were considered but not given or refused? Why? @ -None Did you discuss the management of the patient with other professionals (professionals i.e. DrJorge L, PA, [facility], lab, RT, psych nurse, group social worker, interventionist, teacher, protection officer, mental health case manager)? Give summary @ -No Was smoking cessation discussed for >3mins.? @ -No Was critical care preformed (if so, how long)? @ -No Were there social determinants of health that impacted care today? How? (Homelessness, low income, unemployed, alcoholism, drug addiction, transportation, low edu. Level, literacy, decrease access to med. care, prison, r ehab)? @ -No Was there de-escalation of care discussed even if they declined (Discuss DNR or withdrawal of care, Hospice)? DNR status @ -No What co-morbidities impacted this encounter? (DM, HTN, Smoking, COPD, CAD, Cancer, CVA, ARF, Chemo, Hep., AIDS, mental health diagnosis, sleep apnea, morbid obesity)? @ -hypertesion Was patient admitted / discharged? Hospital course, mention meds given and rou te, prescriptions, significant lab abnormalities, going to OR and other pertinent info. @ -Discharged. 72-year-old male with dizziness and hypotension. On my examination of the patient he is not expressing symptoms of dizziness, lightheadedness, chest pain or pressure. Cardiopulmonary exam benign. At this time patient will be evaluated for basic labs including CBC, CMP, better with a 1 L fluid bolus. Patient is in agreement with this. Additionally EKG nonconcerning for acute signs of ischemia. Laboratory evaluation unremarkable. Patient has an appointment scheduled with his sec reporting consultant tomorrow morning for further evaluation. All questions answered at bedside. Patient stable for d ischarge. Strict return prior discussed with the patient. Case discussed with my attending Dr. Jones Undiagnosed new problem with uncertain prognosis? @ -No Drug Therapy requiring intensive monitoring for toxicity (Heparin, Nitro, Insulin, Cardizem)? @ -No Were any procedures done? @ -No Diagnosis/symptom? @ -hypotension, dizziness, hyponatremia Acute, or Chronic, or Acute on Chronic? @ -Acute Uncomplicated (without systemic symptoms) or Complicated (systemic symptoms)? @ -Uncomplicated Side effects of treatment? @ -No Exacerbation, Progression, or Severe Exacerbation? @ -No Poses a threat to life or bodily function? How? (Chest pain, [place], [place], pneumonia, PE, COPD, DKA, ARF, appy, cholecystitis, CVA, Diverticulitis, Homicidal, Suicidal, threat to staff... and all critical care pts) @ -No - Lab Data Result diagrams: 08/03/23 17:22 08/03/23 17:22 Lab Results 08/03/23 08/03/23 Range/Units 17:22 17:22 WBC 6.9 (3.8-10.6) k/uL RBC 4.18 L (4.30-5.90) m/uL Hgb 12.6 L (13.0-17.5) gm/dL Hct 38.5 L (39.0-53.0) % MCV 91.9 (80.0-100.0) fL MCH 30.1 (25.0-35.0) pg MCHC 32.8 (31.0-37.0) g/dL RDW 13.0 (11.5-15.5) % Plt Count 272 (150-450) k/uL MPV 7.1 Neutrophils % (Manual) 45 % Lymphocytes % (Manual) 39 % Monocytes % (Manual) 14 % Eosinophils % (Manual) 2 % Neutrophils # (Manual) 3.11 (1.3-7.7) k/uL Lymphocytes # (Manual) 2.69 (1.0-4.8) k/uL Monocytes # (Manual) 0.97 (0-1.0) k/uL Eosinophils # (Manual) 0.14 (0-0.7) k/uL Nucleated RBCs 0 (0-0) /100 WBC Manual Slide Review Performed RBC Morphology Normal Sodium 134 L (137-145) mmol/L Potassium 4.9 (3.5-5.1) mmol/L Chloride 105 (98-107) mmol/L Carbon Dioxide 25 (22-30) mmol/L Anion Gap 4 mmol/L BUN 16 (9-20) mg/dL Creatinine 0.97 (0.66-1.25) mg/dL Est GFR (CKD-EPI)AfAm 89 (>60 ml/min/1.73 sqM) Est GFR (CKD-EPI)NonAf 77 (>60 ml/min/1.73 sqM) Glucose 81 (74-99) mg/dL Calcium 9.0 (8.4-10.2) mg/dL Total Bilirubin 0.5 (0.2-1.3) mg/dL AST 18 (17-59) U/L ALT 13 (4-49) U/L Alkaline Phosphatase 77 (38-126) U/L Total Protein 6.4 (6.3-8.2) g/dL Albumin 4.0 (3.5-5.0) g/dL Disposition Clinical Impression: Hypotension, Hyponatremia Disposition: HOME SELF-CARE Condition: Good Instructions (If sedation given, give patient instructions): Dizziness (ED) Additional Instructions: Return to the emergency department if your symptoms worsen or improve. Follow- up as scheduled tomorrow with your sec reporting consultant for further evaluation. Is patient prescribed a controlled substance at d/c from ED?: No Referrals: Jocelin Khan MD [Primary Care Provider] - 1-2 days Time of Disposition: 18:10
[2023-08-03] MEDS: SODIUM CHLORIDE 0.9% 1,000 ML IV STA (17:28)
[2023-08-03 17:48] LABS: ALT 13 U/L (4-49); AST 18 U/L (17-59); African American GFR (CKD) 89 (>60 ml/min/1.73 sqM); Alkaline Phosphatase 77 U/L (38-126); Anion Gap 4 mmol/L; Blood Urea Nitrogen 16 mg/dL (9-20); Carbon Dioxide 25 mmol/L (22-30); Chloride 105 mmol/L (98-107); Glucose 81 mg/dL (74-99); Non-African American GFR(CKD) 77 (>60 ml/min/1.73 sqM); Potassium 4.9 mmol/L (3.5-5.1); Sodium 134 mmol/L (137-145); Total Bilirubin 0.5 mg/dL (0.2-1.3); Total Protein 6.4 g/dL (6.3-8.2)
[2023-08-03 17:57] LABS: HCT 38.5 % (39.0-53.0); HGB 12.6 gm/dL (13.0-17.5); MCH 30.1 pg (25.0-35.0); MCHC 32.8 g/dL (31.0-37.0); MCV 91.9 fL (80.0-100.0); Mean Platelet Volume 7.1; Platelet Count 272 k/uL (150-450); RBC 4.18 m/uL (4.30-5.90); WBC 6.9 k/uL (3.8-10.6)
[2023-08-03 18:34] VITALS: BP 126/59; PULSE 62; RESP 18; TEMP 98
[2023-08-03 18:46] LABS: Eosinophils # (M) 0.14 k/uL (0-0.7); Lymphocytes # (M) 2.69 k/uL (1.0-4.8); Monocytes # (M) 0.97 k/uL (0-1.0); Neutrophils # (M) 3.11 k/uL (1.3-7.7); Neutrophils % (M) 45 %; Nucleated Red Blood Cells 0 /100 WBC (0-0); RBC Morphology Normal; Total Cells Counted 100
== END 2023-08-03 18:32 | disposition home or self-care (01) ==
LOC: EC 14:30
DX: E87.1 Hypo-osmolality and hyponatremia (principal); I95.9 Hypotension, unspecified; R42 Dizziness and giddiness; I44.0 Atrioventricular block, first degree; I10 Essential (primary) hypertension; Z88.5 Allergy status to narcotic agent; Z88.8 Allergy status to other drugs, medicaments and biological substances
CPT/HCPCS: 36415; 80053; 85025; 93005; 96360; 99284

== ENCOUNTER → 2023-09-18 | Outpatient (CLI) | payer MEDICARE ==
--- NOTE | 2023-09-18 15:53 | US ---
EXAMINATION TYPE: US arterial LE multi level DATE OF EXAM: 09/18/2023 3:17 PM CLINICAL INDICATION: Male, 72 years old with history of I73.9 Pad; History of: Smoker: Former Hypertension: Y Diabetic: N Hyperlipidemia: Y TIA/CVA: N Previous Vascular Surgery: Heart stents and ablation CAD: Y PR: N Vascular Ulcers: N Claudication: N Gangrene: N Doppler Waveforms: Right: Multiphasic Left: Multiphasic Pulse Volume Recording: NA Pressure Gradients: NA Right Brachial Pressure: 107 Left Brachial Pressure: 114 Ankle-Brachial Indices: Right: 1.19 Left: 1.11 (Vessel hardening > 1.4; Normal 0.9 - 1.4, Moderate 0.7 - 0.9, Severe 0.5-0.7) Toe Brachial Indices: Right: NA Left: NA IMPRESSION: Ankle-brachial indices within normal limits.
== END | disposition home or self-care (01) ==
LOC: RADUSWWP 13:27
PROVIDERS: ATTEND Family Medicine
DX: I73.9 Peripheral vascular disease, unspecified (principal)
CPT/HCPCS: 93922

== ENCOUNTER 2024-01-25 09:25 | Observation (INO) | payer OTHER, MEDICARE ==
[2024-01-25 10:18] LABS: Basophils % (A) 1 %; Eosinophils # (A) 0.3 k/uL (0-0.7); Eosinophils % (A) 3 %; HCT 41.4 % (39.0-53.0); HGB 14.1 gm/dL (13.0-17.5); Lymphocytes # (A) 1.8 k/uL (1.0-4.8); Lymphocytes % (A) 21 %; MCH 30.6 pg (25.0-35.0); Mean Platelet Volume 6.1; Monocytes # (A) 0.6 k/uL (0-1.0); Monocytes % (A) 7 %; Neutrophils # (A) 5.6 k/uL (1.3-7.7); Neutrophils % (A) 67 %; Platelet Count 424 k/uL (150-450); RDW 12.6 % (11.5-15.5); WBC 8.3 k/uL (3.8-10.6)
[2024-01-25] MEDS: PANTOPRAZOLE 40 MG/10 ML VIAL IVP STA (10:25)
[2024-01-25] MEDS: MORPHINE SULFATE 4 MG/ML SYRINGE IVP STA (10:25)
[2024-01-25] MEDS: ONDANSETRON 4 MG/2 ML VIAL IVP STA (10:25)
[2024-01-25] MEDS: SODIUM CHLORIDE 0.9% 1,000 ML IV STA ×2 (10:25→11:26)
[2024-01-25] MEDS: ASPIRIN 81 MG PO STA (10:25)
[2024-01-25 10:26] LABS: INR 0.9 (<1.2); Partial Thromboplastin Time 28.6 sec (22.0-30.0); Prothrombin Time 10.4 sec (10.0-12.5)
[2024-01-25 10:33] LABS: ALT 17 U/L (4-49); AST 19 U/L (17-59); African American GFR (CKD) >90 (>60 ml/min/1.73 sqM); Albumin 3.9 g/dL (3.5-5.0); Alkaline Phosphatase 134 U/L (38-126); Amylase 33 U/L (30-110); Anion Gap 10 mmol/L; Blood Urea Nitrogen <2 mg/dL (9-20); Calcium 8.3 mg/dL (8.4-10.2); Carbon Dioxide 23 mmol/L (22-30); Chloride 99 mmol/L (98-107); Glucose 172 mg/dL (74-99); Lipase 64 U/L (23-300); Non-African American GFR(CKD) >90 (>60 ml/min/1.73 sqM); Sodium 132 mmol/L (137-145); Total Bilirubin 0.3 mg/dL (0.2-1.3); Total Protein 6.4 g/dL (6.3-8.2)
--- NOTE | 2024-01-25 10:34 | XR ---
EXAMINATION TYPE: XR chest 2V DATE OF EXAM: 01/25/2024 10:31 AM COMPARISON: Chest radiographs from 11/20/2022 TECHNIQUE: XR chest 2V Frontal and lateral views of the chest. CLINICAL INDICATION:Male, 73 years old with history of abdominal pain; FINDINGS: Lungs/Pleura: There is no evidence of pleural effusion, focal consolidation, or pneumothorax. Pulmonary vascularity: Unremarkable. Heart/mediastinum: Cardiomediastinal silhouette is unremarkable. Musculoskeletal: No acute osseous pathology. IMPRESSION: No acute cardiopulmonary disease/process. [facility], , 01/25/2024 10:32 AM
[2024-01-25] MEDS: POTASSIUM CHLORIDE ER 20 MEQ TAB.ER PO STA (11:27)
[2024-01-25] MEDS: KETOROLAC 15 MG/ML 1 ML VIAL IVP STA (12:26)
--- NOTE | 2024-01-25 12:28 | CT ---
EXAMINATION TYPE: CT abdomen pelvis w con CT DLP: 1145.5 mGycm, Automated exposure control for dose reduction was used. DATE OF EXAM: 01/25/2024 12:15 PM COMPARISON: CT abdomen pelvis 11/17/2022 CLINICAL INDICATION:Male, 73 years old with history of abd pain, n/v/d; Abdominal pain with NVD TECHNIQUE: Standard CT of the abdomen and pelvis following the administration of 100 cc of Isovue 3 00 IV contrast material. Coronal and sagittal reformats were performed. FINDINGS: LOWER CHEST: Unremarkable ABDOMEN LIVER: Unremarkable GALLBLADDER AND BILE DUCTS: Gallbladder is surgically absent with mild intrahepatic and extra hepatic biliary dilatation likely physiologic and a postcholecystectomy change. No evidence of choledocholit hiasis. PANCREAS: Unremarkable. SPLEEN: Unremarkable. ADRENAL GLANDS: Unremarkable. KIDNEYS AND URETERS: No evidence of hydronephrosis or renal calculus. The kidneys enhance symmetrical ly. Stable bilateral renal cysts the largest within the right kidney measuring up to 2.[address] within the left renal sinus measuring up to 4.6 cm. Contrast is demonstrated within both collectin g systems on the delayed phase. PELVIS BLADDER: Unremarkable REPRODUCTIVE: Prostate is enlarged in size measuring 6.1 cm in transverse dimension. ABDOMEN & PELVIS STOMACH AND BOWEL: Stomach and duodenum are unremarkable. Scattered hyperdense material is identified within the distal esophagus and stomach without change on delayed phase. Likely oral ingestion of hy perdense material. Scattered distal colonic diverticula without evidence for acute diverticulitis. Th e appendix is surgically absent. No focal bowel wall thickening or surrounding inflammatory changes i dentified. No evidence of bowel obstruction. PERITONEUM: No evidence of pneumoperitoneum or free fluid. VASCULATURE: Moderate atherosclerotic calcifications are present throughout the abdominal aorta and i ts branches. No evidence of aortic aneurysm. MUSCULOSKELETAL: No acute osseous abnormalities. Moderate degenerative disc disease of the lumbar spi ne. Mild retrolisthesis of L3 on L4 and L4-L5. Levocurvature of the lumbar spine with apex at L4. Rohan morl's node involving the T12 vertebral body superior endplate. LYMPH NODES: No evidence for lymphadenopathy. SOFT TISSUE/ABDOMINAL WALL: Unremarkable IMPRESSION: 1. No acute abdominal/pelvic process. 2. Colonic diverticulosis without evidence for acute diverticulitis. 3. Prostatomegaly. Correlate with PSA values. [facility], , 01/25/2024 12:26 PM
[2024-01-25 12:51] LABS: Appearance,Urine Clear (Clear); Bilirubin,Urine Negative (Negative); Blood,Urine Negative (Negative); Color,Urine Colorless; Glucose,Urine (UA) Negative (Negative); Ketones,Urine 1+ (Negative); Leukocyte Esterase,Urine Negative (Negative); Nitrite,Urine Negative (Negative); Protein,Urine Negative (Negative); Specific Gravity,Urine 1.018 (1.001-1.035); Urobilinogen,Urine <2.0 mg/dL (<2.0)
[2024-01-25] MEDS ORDERED: NALOXONE 0.4 MG/ML 1 ML VIAL IV PRN (13:06)
[2024-01-25] MEDS ORDERED: MORPHINE SULFATE 4 MG/ML SYRINGE IV PRN (13:06)
[2024-01-25] MEDS ORDERED: ACETAMINOPHEN TAB 325 MG TAB PO PRN (13:06)
--- NOTE | 2024-01-25 13:06 | ED ---
General Adult HPI - General Chief complaint: Chest Pain Stated complaint: Chest pain, BINA Time Seen by Provider: 01/25/24 09:37 Source: patient, family, RN notes reviewed, old records reviewed Mode of arrival: wheelchair Limitations: no limitations - History of Present Illness Initial comments: Patient is a 73-year-old male who presents emergency department complaining of chest pain starting this morning approximately 4 to 5 AM. He has been sick with nausea, vomiting, diarrhea for the last 5 to 6 days. States the pain was substernal. Sharp and pressure-like sensation. It is since resolved. No other acute complaints. Denies fevers or chills. Denies sick contacts. Does have a history of CAD. History of angina. Presents for further evaluation at this time. Symptoms started at rest. Resolved on their own. Denies any radiation of the pain, diaphoresis with it. Mild shortness of breath when it was present. All is since resolved. - Related Data Allergies Allergy/AdvReac Type Severity Reaction Status Date / Time atorvastatin [From Lipitor] AdvReac MUSCLE Verified 01/25/24 09:34 CRAMPS hydrochlorothiazide AdvReac Patient Verified 01/25/24 09:34 had episode of severe hyponatremia requiring hospita ropinirole [From Requip] AdvReac Hallucinati Verified 01/25/24 09:34 ons scopolamine AdvReac Hallucinati Verified 01/25/24 09:34 ons Review of Systems ROS Statement: Those systems with pertinent positive or pertinent negative responses have been documented in the HPI. Review of Systems: CONST: Denies fever EYES: Denies blurry vision ENT: Denies nasal congestion C/V: Denies Chest pain RESP: Denies shortness of breath GI: Denies abdominal pain : Denies dysuria SKIN: Denies rash. MSK: Denies joint pain. NEURO: Denies headache ROS Other: All systems not noted in ROS Statement are negative. Past Medical History Past Medical History: Coronary Artery Disease (CAD), Chest Pain / Angina, Eye Disorder, GERD/Reflux, Hyperlipidemia, Hypertension, Myocardial Infarction (VT), Osteoarthritis (OA) Additional Past Medical History / Comment(s): recent admission for nausea/vomiting/diarrhea, Neck pain, SVT with ablation, duodenal ulcers, chronic duodenal stricture, bilateral glaucoma, sinusitis, migraines, anemia, esophagitis,hiatal hernia, chronic back pain, past fx ribs/sternum Last Myocardial Infarction Date:: 1999 History of Any Multi-Drug Resistant Organisms: None Reported Past Surgical History: Cardiac Ablation, Cholecystectomy, Heart Catheterization With Stent Additional Past Surgical History / Comment(s): stent bilateral eyes 03/2018, PCI with 3 stents, sinus surgery, cataracts bilaterally with lens implants, EGDs/colonoscopies, Past Anesthesia/Blood Transfusion Reactions: No Reported Reaction Additional Past Anesthesia/Blood Transfusion Reaction / Comment(s): Pt has had past multiple transfusions without reaction. Date of Last Stent Placement:: 1999 Past Psychological History: Anxiety Smoking Status: Never smoker Past Alcohol Use History: None Reported Past Drug Use History: None Reported - Past Family History Father Additional Family Medical History / Comment(s): Father at the age of 68yrs from a ruptured aortic aneurysm. Mother Additional Family Medical History / Comment(s): Mother lived into her 80's. Brother(s) Family Medical History: Cancer Additional Family Medical History / Comment(s): The patient had 3 brothers. One from colon cancer with metastatic disease to the brain. One brother at age 79 from a myocardial infarction. He has 1 brother that is alive with history of skin cancer and diabetes. Sister(s) Additional Family Medical History / Comment(s): The patient is a total of 3 sisters. One in her 80s from myocardial infarction. One sister at age 58 from coronary artery disease and also had a valvular disorder. Patient has one sister alive with diabetes and multiple other medical conditions. Patient has 2 sons and 1 daughter with no major medical problems. General Exam - General Exam Comments Initial Comments: General: Appears in no acute distress. HEAD: Normal with no signs of head trauma. EYES: EOMI ENT: Hearing grossly intact, normal oropharynx. Dry mucous membranes. RESPIRATORY: Clear breath sounds bilaterally. No wheezes, rales, or rhonchi. C/V: Regular rate and rhythm. S1 and S2 auscultated, no edema, peripheral pulses 2+ and intact throughout ABD: Abd is soft, nontender, nondistended EXT: Normal range of motion, no obvious deformity SKIN: No rashes or lesions observed on exposed skin. NEURO: Alert and oriented x 4. Limitations: no limitations Course Vital Signs 01/25/24 01/25/24 09:30 14:41 Temperature 98.4 F Pulse Rate 91 68 Respiratory 18 16 Rate Blood Pressure 144/89 148/81 O2 Sat by Pulse 98 97 Oximetry Medical Decision Making - Medical Decision Making Was pt. sent in by a medical professional or institution (, RADHA, SECURITY ATTENDANT, urgent care, hospital, or usp...) When possible be specific @ -No Did you speak to anyone other than the patient for history (EMS, parent, family, police, friend...)? What history was obtained from this source @ -No Did you review nursing and triage notes (agree or disagree)? Why? @ -I reviewed and agree with nursing and triage notes Were old charts reviewed (outside hosp., previous admission, EMS record, old EKG, old radiological studies, urgent care reports/EKG's, usp records)? Report findings @ -Old charts reviewed including prior EKG from August 2023. No significant dynamic changes. Differential Diagnosis (chest pain, altered mental status, abdominal pain women, abdominal pain men, vaginal bleeding, weakness, fever, dyspnea, syncope, headache, dizziness, GI bleed, back pain, seizure, CVA, palpatations, mental health, musculoskeletal)? @ -Differential Abdominal Pain Men: Appendicitis, cholecystitis, diverticulosis, ischemic bowel, pancreatitis, hepatitis, UTI, gastroenteritis, AAA, incarcerated hernia, bowel obstruction, constipation, inflammatory bowel, hepatitis, peptic ulcer disease, splenic infarction, perforated viscus, testicular torsion, this is not meant to be an all-inclusive list Differential Chest Pain: Stable Angina, Unstable Angina, STEMI, NSTEMI Aortic Dissection, Pneumothorax, Musculoskeletal, Esophageal Spasm GERD, Cholecystitis, Pancreatitis, Zoster, this is not meant to be an all-inclusive list. EKG interpreted by me (3pts min.). @ -As above X-rays interpreted by me (1pt min.). @ -Chest x-ray reveals no obvious acute cardiopulmonary process. CT interpreted by me (1pt min.). @ -CT abdomen pelvis reveals no obvious acute intra-abdominal process. U/S interpreted by me (1pt. min.). @ -None done What testing was considered but not performed or refused? (CT, X-rays, U/S, labs)? Why? @ -None What meds were considered but not given or refused? Why? @ -None Did you discuss the management of the patient with other professionals (pro fessionals i.e. , PA, SECURITY ATTENDANT, lab, RT, psych nurse, clinical social work aide, garden machinery mechanic, teacher, retirement officer, field case manager)? Give summary @ - Discussed the case with the admitting provider, Dr. Reid who covers for Dr. Armando who normally admits for Dr. Khan who accepted the admission. Was smoking cessation discussed for >3mins.? @ -No Was critical care preformed (if so, how long)? @ -No Were there social determinants of health that impacted care today? How? (Homelessness, low income, unemployed, alcoholism, drug addiction, transportation, low edu. Level, literacy, decrease access to med. care, senior care, rehab)? @ -No Was there de-escalation of care discussed even if they declined (Discuss DNR or withdrawal of care, Hospice)? DNR status @ -No What co-morbidities impacted this encounter? (DM, HTN, Smoking, COPD, CAD, Cancer, CVA, ARF, Chemo, Hep., AIDS, mental health diagnosis, sleep apnea, morbid obesity)? @ -CAD Was patient admitted / discharged? Hospital course, mention meds given and route, prescriptions, significant lab abnormalities, going to OR and other pertinent info. @ -Patient presents with plus chest pain, as well as abdominal pain nausea and vomiting and diarrhea. Chest pain is resolved. Other symptoms been ongoing for multiple days. We will obtain generalized workup. He was in agreement this plan. He will be given IV fluids, Zofran, Protonix. Vital signs are within a cceptable limits. Laboratory studies remarkable for negative viral swabs, undetectable troponin. Mildly hypokalemic to 3.0. Remainder the labs unremarkable. EKG shows no signs of acute ischemia. Imaging returned unremarkable. On reevaluation, patient appears clinically dehydrated, we will admit for hydration as well as monitoring the troponin. He was in agreement this plan. Cardiology will be consulted. Patient already received 324 mg of aspirin. Will continue with fluid hydration at this time. Discussed the case with the admitting provider, Dr. Reid who covers for Dr. Armando who normally admits for Dr. Khan who accepted the admission. Undiagnosed new problem with uncertain prognosis? @ -No Drug Therapy requiring intensive monitoring for toxicity (Heparin, Nitro, Insulin, Cardizem)? @ -No Were any procedures done? @ -No Diagnosis/symptom? @ -Dehydration, abdominal pain of unknown etiology, hypokalemia, nausea and vomiting and diarrhea, chest pain Acute, or Chronic, or Acute on Chronic? @ -Acute Uncomplicated (without systemic symptoms) or Complicated (systemic symptoms)? @ -Complicated Side effects of treatment? @ -No Exacerbation, Progression, or Severe Exacerbation? @ -No Poses a threat to life or bodily function? How? (Chest pain, USA, VT, pneumonia, PE, COPD, DKA, ARF, appy, cholecystitis, CVA, Diverticulitis, Homicidal, Suicidal, threat to staff... and all critical care pts) @ -Possibly, yes - Lab Data Result diagrams: 01/25/24 09:57 01/25/24 09:57 Lab Results 01/25/24 01/25/24 01/25/24 Range/Units 09:57 09:57 09:57 WBC 8.3 (3.8-10.6) k/uL RBC 4.60 (4.30-5.90) m/uL Hgb 14.1 (13.0-17.5) gm/dL Hct 41.4 (39.0-53.0) % MCV 90.0 (80.0-100.0) fL MCH 30.6 (25.0-35.0) pg MCHC 34.0 (31.0-37.0) g/dL RDW 12.6 (11.5-15.5) % Plt Count 424 (150-450) k/uL MPV 6.1 Neutrophils % 67 % Lymphocytes % 21 % Monocytes % 7 % Eosinophils % 3 % Basophils % 1 % Neutrophils # 5.6 (1.3-7.7) k/uL Lymphocytes # 1.8 (1.0-4.8) k/uL Monocytes # 0.6 (0-1.0) k/uL Eosinophils # 0.3 (0-0.7) k/uL Basophils # 0.0 (0-0.2) k/uL PT 10.4 (10.0-12.5) sec INR 0.9 (<1.2) APTT 28.6 (22.0-30.0) sec Sodium (137-145) mmol/L Potassium (3.5-5.1) mmol/L Chloride (98-107) mmol/L Carbon Dioxide (22-30) mmol/L Anion Gap mmol/L BUN (9-20) mg/dL Creatinine (0.66-1.25) mg/dL Est GFR (CKD-EPI)AfAm (>60 ml/min/1.73 sqM) Est GFR (CKD-EPI)NonAf (>60 ml/min/1.73 sqM) Glucose (74-99) mg/dL Plasma Lactic Acid Ney (0.7-2.0) mmol/L Calcium (8.4-10.2) mg/dL Total Bilirubin (0.2-1.3) mg/dL AST (17-59) U/L ALT (4-49) U/L Alkaline Phosphatase (38-126) U/L Troponin I (0.000-0.034) ng/mL Total Protein (6.3-8.2) g/dL Albumin (3.5-5.0) g/dL Amylase (30-110) U/L Lipase (23-300) U/L Urine Color Colorless Urine Appearance Clear (Clear) Urine pH 6.0 (5.0-8.0) Ur Specific [place] 1.018 (1.001-1.035) Urine Protein Negative (Negative) Urine Glucose (UA) Negative (Negative) Urine Ketones 1+ H (Negative) Urine Blood Negative (Negative) Urine Nitrite Negative (Negative) Urine Bilirubin Negative (Negative) Urine Urobilinogen <2.0 (<2.0) mg/dL Ur Leukocyte Esterase Negative (Negative) Influenza Type A (PCR) (Not Detectd) Influenza Type B (PCR) (Not Detectd) RSV (PCR) (Not Detectd) SARS-CoV-2 (PCR) (Not Detectd) Group A Strep (PCR) (Not Detectd) 01/25/24 01/25/24 01/25/24 Range/Units 09:57 09:57 09:57 WBC (3.8-10.6) k/uL RBC (4.30-5.90) m/uL Hgb (13.0-17.5) gm/dL Hct (39.0-53.0) % MCV (80.0-100.0) fL MCH (25.0-35.0) pg MCHC (31.0-37.0) g/dL RDW (11.5-15.5) % Plt Count (150-450) k/uL MPV Neutrophils % % Lymphocytes % % Monocytes % % Eosinophils % % Basophils % % Neutrophils # (1.3-7.7) k/uL Lymphocytes # (1.0-4.8) k/uL Monocytes # (0-1.0) k/uL Eosinophils # (0-0.7) k/uL Basophils # (0-0.2) k/uL PT (10.0-12.5) sec INR (<1.2) APTT (22.0-30.0) sec Sodium 132 L (137-145) mmol/L Potassium 3.0 L (3.5-5.1) mmol/L Chloride 99 (98-107) mmol/L Carbon Dioxide 23 (22-30) mmol/L Anion Gap 10 mmol/L BUN <2 L (9-20) mg/dL Creatinine 0.70 (0.66-1.25) mg/dL Est GFR (CKD-EPI)AfAm >90 (>60 ml/min/1.73 sqM) Est GFR (CKD-EPI)NonAf >90 (>60 ml/min/1.73 sqM) Glucose 172 H (74-99) mg/dL Plasma Lactic Acid Ney (0.7-2.0) mmol/L Calcium 8.3 L (8.4-10.2) mg/dL Total Bilirubin 0.3 (0.2-1.3) mg/dL AST 19 (17-59) U/L ALT 17 (4-49) U/L Alkaline Phosphatase 134 H (38-126) U/L Troponin I <0.012 (0.000-0.034) ng/mL Total Protein 6.4 (6.3-8.2) g/dL Albumin 3.9 (3.5-5.0) g/dL Amylase 33 (30-110) U/L Lipase 64 (23-300) U/L Urine Color Urine Appearance (Clear) Urine pH (5.0-8.0) Ur Specific [place] (1.001-1.035) Urine Protein (Negative) Urine Glucose (UA) (Negative) Urine Ketones (Negative) Urine Blood (Negative) Urine Nitrite (Negative) Urine Bilirubin (Negative) Urine Urobilinogen (<2.0) mg/dL Ur Leukocyte Esterase (Negative) Influenza Type A (PCR) (Not Detectd) Influenza Type B (PCR) (Not Detectd) RSV (PCR) (Not Detectd) SARS-CoV-2 (PCR) (Not Detectd) Group A Strep (PCR) NOT DETECTED (Not Detectd) 01/25/24 01/25/24 Range/Units 09:57 09:58 WBC (3.8-10.6) k/uL RBC (4.30-5.90) m/uL Hgb (13.0-17.5) gm/dL Hct (39.0-53.0) % MCV (80.0-100.0) fL MCH (25.0-35.0) pg MCHC (31.0-37.0) g/dL RDW (11.5-15.5) % Plt Count (150-450) k/uL MPV Neutrophils % % Lymphocytes % % Monocytes % % Eosinophils % % Basophils % % Neutrophils # (1.3-7.7) k/uL Lymphocytes # (1.0-4.8) k/uL Monocytes # (0-1.0) k/uL Eosinophils # (0-0.7) k/uL Basophils # (0-0.2) k/uL PT (10.0-12.5) sec INR (<1.2) APTT (22.0-30.0) sec Sodium (137-145) mmol/L Potassium (3.5-5.1) mmol/L Chloride (98-107) mmol/L Carbon Dioxide (22-30) mmol/L Anion Gap mmol/L BUN (9-20) mg/dL Creatinine (0.66-1.25) mg/dL Est GFR (CKD-EPI)AfAm (>60 ml/min/1.73 sqM) Est GFR (CKD-EPI)NonAf (>60 ml/min/1.73 sqM) Glucose (74-99) mg/dL Plasma Lactic Acid Ney 1.7 (0.7-2.0) mmol/L Calcium (8.4-10.2) mg/dL Total Bilirubin (0.2-1.3) mg/dL AST (17-59) U/L ALT (4-49) U/L Alkaline Phosphatase (38-126) U/L Troponin I (0.000-0.034) ng/mL Total Protein (6.3-8.2) g/dL Albumin (3.5-5.0) g/dL Amylase (30-110) U/L Lipase (23-300) U/L Urine Color Urine Appearance (Clear) Urine pH (5.0-8.0) Ur Specific Hancock (1.001-1.035) Urine Protein (Negative) Urine Glucose (UA) (Negative) Urine Ketones (Negative) Urine Blood (Negative) Urine Nitrite (Negative) Urine Bilirubin (Negative) Urine Urobilinogen (<2.0) mg/dL Ur Leukocyte Esterase (Negative) Influenza Type A (PCR) Not Detected (Not Detectd) Influenza Type B (PCR) Not Detected (Not Detectd) RSV (PCR) Not Detected (Not Detectd) SARS-CoV-2 (PCR) Not Detected (Not Detectd) Group A Strep (PCR) (Not Detectd) - EKG Data -: EKG Interpreted by Me EKG Comments: 12-lead Electrocardiogram Interpretation Note EKG was reviewed and interpreted by myself. 12-lead ECG performed at 0940 is in terpreted by me as revealing normal sinus rhythm at a rate of 87 beats per minute. [place] is normal. [place] interval is 199 ms, QRS duration is 91 ms, QTc is 409 ms.. There were no ST or T wave abnormalities to suggest myocardial ischemia or injury. R wave progression across the precordium was satisfactory. By my interpretation this EKG is non-diagnostic for acute ischemia. Disposition Clinical Impression: Chest pain, Dehydration, Abdominal pain of unknown etiology, Nausea vomiting and diarrhea, Hypokalemia Disposition: ADMITTED IP TO THIS HOSP Condition: Stable Time of Disposition: 13:00
--- NOTE | 2024-01-25 13:36 | P.HPIM ---
History of Present Illness This is a pleasant 73 years old male with past medical history of multiple medical problems including history of multiple cardiac stents with Dr. Goode about 24 years ago Presents because of chest pain started today Patient has been complaining from nausea vomiting and diarrhea for about 1 week about 3-4 times per day for each, diarrhea may be less but there was no blood in either No abdominal pain but he has mild suprapubic tenderness. Patient denies dysuria or urgency or other urinary symptoms He states that he has chronic eso gastroesophageal sphincter narrowing and he follows up with Dr. Boyd in outpatient for his dysphagia or swallowing problem This morning he woke up about 4 AM with central chest pain radiating down, felt like tightness with no specific relieving or precipitating factors associated with some dyspnea. Has some dry cough which is mild He denies dizziness, he has mild headache, no weakness or numbness No smoking alcohol or illicit drugs He is on gabapentin for his bilateral lower extremity neuropathy, he is disabled because of this He is afebrile and vital stable Sodium 132, potassium 3.0. Rest of liver enzymes, amylase lipase were unremarkable Troponin is negative CT of the abdomen and pelvis is negative for acute process showing diverticulosis without diverticulitis and a large prostate Review of Systems Review of systems CONSTITUTIONAL: No fever, no malaise, no fatigue. HEENT: No recent visual problems or hearing problems. Denied any sore throat. CARDIOVASCULAR: No orthopnea, PND, no palpitations, no syncope. PULMONARY: No shortness of breath, no cough, no hemoptysis. GASTROINTESTINAL: No diarrhea, no nausea, no vomiting, no abdominal pain. Normoactive bowel sounds. NEUROLOGICAL: No headaches, no weakness, no numbness. HEMATOLOGICAL: Denies any bleeding or petechiae. GENITOURINARY: As above MUSCULOSKELETAL/RHEUMATOLOGICAL: Denies any joint pain, swelling, or any muscle pain. ENDOCRINE: Denies any polyuria or polydipsia. Past Medical History Past Medical History: Coronary Artery Disease (CAD), Chest Pain / Angina, Eye Disorder, GERD/Reflux, Hyperlipidemia, Hypertension, Myocardial Infarction ([place]), Osteoarthritis (OA) Additional Past Medical History / Comment(s): recent admission for nausea/vomiting/diarrhea, Neck pain, SVT with ablation, duodenal ulcers, chronic duodenal stricture, bilateral glaucoma, sinusitis, migraines, anemia, esophagitis,hiatal hernia, chronic back pain, past fx ribs/sternum Last Myocardial Infarction Date:: 1999 History of Any Multi-Drug Resistant Organisms: None Reported Past Surgical History: Cardiac Ablation, Cholecystectomy, Heart Catheterization With Stent Additional Past Surgical History / Comment(s): stent bilateral eyes 03/2018, PCI with 3 stents, sinus surgery, cataracts bilaterally with lens implants, EGDs/colonoscopies, Past Anesthesia/Blood Transfusion Reactions: No Reported Reaction Additional Past Anesthesia/Blood Transfusion Reaction / Comment(s): Pt has had past multiple transfusions without reaction. Date of Last Stent Placement:: 1999 Past Psychological History: Anxiety Smoking Status: Never smoker Past Alcohol Use History: None Reported Past Drug Use History: None Reported - Past Family History Father Additional Family Medical History / Comment(s): Father at the age of 68yrs from a ruptured aortic aneurysm. Mother Additional Family Medical History / Comment(s): Mother lived into her 80's. Brother(s) Family Medical History: Cancer Additional Family Medical History / Comment(s): The patient had 3 brothers. One from colon cancer with metastatic disease to the brain. One brother at age 79 from a myocardial infarction. He has 1 brother that is alive with history of skin cancer and diabetes. Sister(s) Additional Family Medical History / Comment(s): The patient is a total of 3 sisters. One in her 80s from myocardial infarction. One sister at age 58 from coronary artery disease and also had a valvular disorder. Patient has one sister alive with diabetes and multiple other medical conditions. Patient has 2 sons and 1 daughter with no major medical problems. Medications and Allergies Allergies Allergy/AdvReac Type Severity Reaction Status Date / Time atorvastatin [From Lipitor] AdvReac MUSCLE Verified 01/25/24 09:34 CRAMPS hydrochlorothiazide AdvReac Patient Verified 01/25/24 09:34 had episode of severe hyponatremia requiring hospita ropinirole [From Requip] AdvReac Hallucinati Verified 01/25/24 09:34 ons scopolamine AdvReac Hallucinati Verified 01/25/24 09:34 ons Physical Exam Vitals: Vital Signs Temp Pulse Resp BP Pulse Ox 01/25/24 09:30 98.4 F 91 18 144/89 98 Intake and Output 01/24/24 01/25/24 01/25/24 22:59 06:59 14:59 Other: Weight 95.254 kg -GENERAL: The patient is alert and oriented x3, not in any acute distress. Well developed, well nourished. Looks weak HEENT: Pupils are round and equally reacting to light. EOMI. No scleral icterus. No conjunctival pallor. Normocephalic, atraumatic. No pharyngeal erythema. No thyromegaly. CARDIOVASCULAR: S1 and S2 present. No murmurs, rubs, or gallops. PULMONARY: Chest is clear to auscultation, no wheezing , no crackles. ABDOMEN: Soft, nontender, nondistended, normoactive bowel sounds. No palpable organomegaly. MUSCULOSKELETAL: No joint swelling or deformity. EXTREMITIES: No cyanosis, clubbing, or pedal edema. NEUROLOGICAL: Gross neurological examination did not reveal any focal deficits. SKIN: No rashes. no petechiae. Results CBC & Chem 7: 01/25/24 09:57 01/25/24 09:57 Labs: Abnormal Lab Results - Last 24 Hours (Table) 01/25/24 01/25/24 Range/Units 09:57 09:57 Sodium 132 L (137-145) mmol/L Potassium 3.0 L (3.5-5.1) mmol/L BUN <2 L (9-20) mg/dL Glucose 172 H (74-99) mg/dL Calcium 8.3 L (8.4-10.2) mg/dL Alkaline Phosphatase 134 H (38-126) U/L Urine Ketones 1+ H (Negative) Assessment and Plan Assessment: Chest pain, rule out cardiac causes. Patient has history of coronary artery disease and stent Possible acute gastroenteritis with nausea vomiting and diarrhea. Rule out C. difficile colitis. However CT of the abdomen is negative Gastroesophageal reflux disease Hypertension Hyperlipidemia Osteoarthritis Chronic gastroesophageal stenosis as per patient Bilateral lower extremity neuropathy Plan: Will do serial troponin Telemetry monitoring On aspirin Pain management Cardiology consult IV fluid Put the patient on clear diet and advance later as tolerated Rule out C. difficile the stool Resume home medication once verified Labs and medication were reviewed.. Continue same treatment. Continue with s ymptomatic treatment. Resume home medication. Monitor labs and vitals. DVT and GI prophylaxis. Further recommendations as per clinical course of the patient DVT prophylaxis: Subcutaneous heparin GI Prophylaxis: P Protonix Prognosis is guarded
[2024-01-25] MEDS: KETOROLAC 15 MG/ML 1 ML VIAL IVP PRN (18:03)
[2024-01-25] MEDS ORDERED: NON FORMULARY DRUG (Acetaminophen [Tylenol 8 Hour] 650 MG Tablet) PO PRN (19:07)
[2024-01-25] MEDS ORDERED: POTASSIUM CHLORIDE ER 20 MEQ TAB.ER PO PRN (19:07)
[2024-01-25] MEDS ORDERED: ONDANSETRON ODT 4 MG TAB PO PRN (19:07)
[2024-01-25] MEDS ORDERED: PANTOPRAZOLE 40 MG TABLET PO SCH (21:00)
[2024-01-25] MEDS: METOPROLOL TARTRATE 25 MG TAB PO SCH (21:31)
[2024-01-25] MEDS: GABAPENTIN 400 MG CAP PO SCH (21:31)
[2024-01-25] MEDS: DICYCLOMINE 10 MG CAP PO SCH (21:31)
[2024-01-25] MEDS: SODIUM CHLORIDE TAB 1 GM TAB PO SCH (21:31)
[2024-01-25] MEDS: MONTELUKAST 10 MG TAB PO SCH (21:31)
[2024-01-25] MEDS: BRIMONIDINE TARTRATE 0.2% DROPS 5 ML BTL BOTH EYES SCH (21:32)
[2024-01-25] MEDS: SUCRALFATE 1 GM TAB PO SCH (21:32)
[2024-01-25] MEDS: AMITRIPTYLINE HCL 25 MG TAB PO SCH (21:32)
[2024-01-25] MEDS: TIMOLOL 0.5% OPHTH DROPS 5 ML BTL BOTH EYES SCH (21:32)
[2024-01-25] MEDS: HEPARIN SODIUM,PORCINE 5,000 UNIT/ML 1 ML VIAL SQ SCH (21:32)
[2024-01-25] MEDS: NON FORMULARY DRUG (Simvastatin 40 MG Tab) PO SCH (21:33)
[2024-01-25] MEDS: BUTALB/APAP/CAFF 50-325-40MG TAB PO PRN (21:40)
[2024-01-25] MEDS: diazePAM 5 MG TAB PO PRN (21:40)
[2024-01-25] MEDS: ONDANSETRON 4 MG/2 ML VIAL IVP PRN (21:41)
[2024-01-26] MEDS: FUROSEMIDE 20 MG TAB PO SCH (08:43)
[2024-01-26] MEDS: LOSARTAN 50 MG TAB PO SCH (08:43)
[2024-01-26] MEDS: ESCITALOPRAM 10 MG TAB PO SCH (08:43)
[2024-01-26] MEDS: CHOLECALCIFEROL 25 MCG (1000 IU) TABLET PO SCH (08:43)
[2024-01-26 08:45] LABS: Basophils # (A) 0.06 X 10*3/uL (0.00-0.10); Basophils % (A) 0.8 %; Eosinophils # (A) 0.31 X 10*3/uL (0.04-0.35); Eosinophils % (A) 4.4 %; HCT 39.3 % (39.6-50.0); HGB 13.6 g/dL (13.0-17.0); Lymphocytes # (A) 1.99 X 10*3/uL (0.90-5.00); Lymphocytes % (A) 28.1 %; MCH 30.3 pg (27.0-32.0); MCHC 34.6 g/dL (32.0-37.0); MCV 87.5 FL (80.0-97.0); Monocytes # (A) 0.87 X 10*3/uL (0.20-1.00); Monocytes % (A) 12.3 %; NRBC Per 100 WBC 0 X 10*3/uL (0.00-0.01); Neutrophils % (A) 53.7 %; Platelet Count 354 X 10*3/uL (140-440); RBC 4.49 X 10*6/uL (4.40-5.60); RDW 13.2 % (11.5-14.5); WBC 7.08 X 10*3/uL (4.50-10.00)
[2024-01-26 09:03] LABS: BUN/Creat Ratio <5.00 Ratio (12.00-20.00); Blood Urea Nitrogen <3.5 mg/dL (9.0-27.0); Chloride 99 mmol/L (96-109); Glucose 127 mg/dL (70-110); Magnesium 1.9 mg/dL (1.5-2.4); Potassium 3.7 mmol/L (3.5-5.5); Sodium 138 mmol/L (135-145)
[2024-01-26 09:04] LABS: ALT 14 U/L (10-49); AST 19 U/L (14-35); Albumin 3.8 g/dL (3.8-4.9); Albumin/Globulin Ratio 1.65 Ratio (1.60-3.17); Alkaline Phosphatase 125 U/L (41-126); Calcium 8.1 mg/dL (8.7-10.3); Globulin 2.3 g/dL (1.6-3.3); Total Bilirubin 0.3 mg/dL (0.3-1.2); Total Protein 6.1 g/dL (6.2-8.2)
[2024-01-26] MEDS: PANTOPRAZOLE 40 MG/10 ML VIAL IV SCH (09:14)
--- NOTE | 2024-01-26 10:09 | P.CRDCN ---
History of Present Illness Consult date: 01/26/24 Consult reason: chest pain History of present illness: This is a 73-year-old male patient of Dr. SELENA Goode with past medical history of coronary artery disease with previous PCI of the LAD and diagonal, hypertension, SVT status post radiofrequency ablation in 2011, history of hiatal hernia and ulcer, history of hyponatremia. We have been asked to evaluate the patient for chest pain. He states he has been sick for about a week with stomach issues, vomiting and diarrhea as well as a low-grade fever. He suddenly had chest pain with some shortness of breath when he woke up. He states the chest pain is not related to activity. This pain is also not similar to that when he required stenting in the past. He states he has not had any diarrhea further few days now. He has no chest pain at the time of this evaluation. He also denies hav ing any palpitations, lower extremity edema, cough or fever. He denies any blood in his stools. Patient is a non-smoker. Blood pressure 149/79, heart rate 74, pulse ox 100% on room air. -EKG: Sinus rhythm with no acute ST changes -Chest x-ray: No acute process. -CT abdomen and pelvis revealed no acute process. Colonic diverticulosis. Prostatomegaly. -Laboratory studies: Troponin negative x 3. CBC within normal limits. Sodium 132, potassium 3, creatinine 0.7, alkaline phosphatase 134. -Home cardiac medications: Lasix 20 mg daily, losartan 50 mg daily, Lopressor 25 mg twice daily, potassium chloride 20 mill colons daily as needed, simvastatin 40 mg at bedtime. -Lexiscan Cardiolite stress test performed in the office on 07/26/2021: By EKG criteria, inconclusive Lexiscan stress test because of resting EKG changes. Normal MPI with normal ejection fraction without stress-induced ischemia. EF is more than 60% and there is no ischemia. -Echocardiogram performed in the office on 07/26/2021: EF 55 to 60%, moderate concentric left ventricular hypertrophy. Mild to moderate aortic regurgitation. Aortic valve is calcified. Ascending aorta is enlarged and is aneurysmal. Mild to moderate mitral regurgitation. Mitral valve is calcified. Mild tricuspid regurgitation. PASP 29 mmHg. Mild pulmonic regurgitation. -C 10/29/2011 revealed normal LV size and systolic function. Dominant RCA free of significant disease. Circumflex is free of significant disease. Previously stented LAD and diagonal are widely patent with no more than 40% narrowing. Review Of Systems: At the time of my exam: CONSTITUTIONAL: Denies fever or chills. HEENT: Denies blurred vision, vision changes, or eye pain. Denies hemoptysis CARDIOVASCULAR: Denies chest pain. Denies orthopnea. Denies PND. Denies palpitations RESPIRATORY: Denies shortness of breath. GASTROINTESTINAL: Denies abdominal pain. Denies nausea or vomiting. HEMATOLOGIC: Denies bleeding disorders. GENITOURINARY: Denies any blood in urine. SKIN: Denies puritis. Denies rash. Physical examination: Gen: This is a 73-year-old male in no acute distress VS: reviewed HEENT: Head is atraumatic, normocephalic. Pupils equal, round. Sclerae is anicteric. NECK: Supple. No JVD. LUNGS: Clear to auscultation. No wheezes or rhonchi. No intercostal retractions. HEART: Regular rate and rhythm. No murmur. ABDOMEN: Soft No tenderness. EXTREMITIES: No pedal edema. No calf tenderness. NEUROLOGICAL: Patient is awake, alert and oriented x3. Assessment: Atypical chest pain, acute coronary syndrome ruled out Chest pain most likely related to vomiting and diarrhea History of coronary artery disease with previous PCI of the LAD and diagonal Hypertension SVT status post radiofrequency ablation in 2011 History of hiatal hernia and ulcer Plan: Resume patient's home cardiac medications Obtain 2-D echocardiogram and Doppler study to assess cardiac structure and function If echocardiogram is unremarkable, no additional workup will be performed at this time. Patient would then be cleared for discharge and to follow-up with Dr. SELENA Goode in 1 to 2 weeks. Thank you kindly for this consultation. Nurse practitioner note has been reviewed, I agree with documented findings and plan of care. Patient was seen and examined. Past Medical History Past Medical History: Coronary Artery Disease (CAD), Chest Pain / Angina, Eye Disorder, GERD/Reflux, Hyperlipidemia, Hypertension, Myocardial Infarction ([place]), Osteoarthritis (OA) Additional Past Medical History / Comment(s): recent admission for nausea/vomiting/diarrhea, Neck pain, SVT with ablation, duodenal ulcers, chronic duodenal stricture, bilateral glaucoma, sinusitis, migraines, anemia, esophagitis,hiatal hernia, chronic back pain, past fx ribs/sternum Last Myocardial Infarction Date:: 1999 History of Any Multi-Drug Resistant Organisms: None Reported Past Surgical History: Cardiac Ablation, Cholecystectomy, Heart Catheterization With Stent Additional Past Surgical History / Comment(s): stent bilateral eyes 03/2018, PCI with 3 stents, sinus surgery, cataracts bilaterally with lens implants, EGDs/colonoscopies, Past Anesthesia/Blood Transfusion Reactions: No Reported Reaction Additional Past Anesthesia/Blood Transfusion Reaction / Comment(s): Pt has had past multiple transfusions without reaction. Date of Last Stent Placement:: 1999 Past Psychological History: Anxiety Additional Psychological History / Comment(s): Pt resides with his spouse. He served in the [employer]. He is independent. Smoking Status: Never smoker Past Alcohol Use History: None Reported Additional Past Alcohol Use History / Comment(s): Patient was a smoker for only a few years in his 40s. Past Drug Use History: None Reported - Past Family History Father Additional Family Medical History / Comment(s): Father at the age of 68yrs from a ruptured aortic aneurysm. Mother Additional Family Medical History / Comment(s): Mother lived into her 80's. Brother(s) Family Medical History: Cancer Additional Family Medical History / Comment(s): The patient had 3 brothers. One from colon cancer with metastatic disease to the brain. One brother at age 79 from a myocardial infarction. He has 1 brother that is alive with history of skin cancer and diabetes. Sister(s) Additional Family Medical History / Comment(s): The patient is a total of 3 sisters. One in her 80s from myocardial infarction. One sister at age 58 from coronary artery disease and also had a valvular disorder. Patient has one sister alive with diabetes and multiple other medical conditions. Patient has 2 sons and 1 daughter with no major medical problems. Medications and Allergies Home Medications Medication Instructions Recorded Confirmed Type Acetaminophen [Tylenol 8 Hour] 650 mg PO Q4H PRN 01/25/24 01/25/24 History Amitriptyline HCl [Elavil] 12.5 mg PO HS 01/25/24 01/25/24 History Betamethasone Dipropionate 1 applic TOPICAL DAILY PRN 01/25/24 01/25/24 History [Diprolene 0.05% Ointment] Brimonidine Tartrate/Timolol 1 drop BOTH EYES BID 01/25/24 01/25/24 History [Brimonidine-Timolol 0.2%-0.5%] Butalb/Acetaminophen/Caffeine 1 cap PO Q4HR PRN 01/25/24 01/25/24 History [Fioricet 50-300-40 mg Capsule] Cholecalciferol [Vitamin D3 (25 25 mcg PO DAILY 01/25/24 01/25/24 History Mcg = 1000 Iu)] Clindamycin Gel [Cleocin T 1% Gel] 1 applic TOPICAL BID PRN 01/25/24 01/25/24 History Clobetasol Propionate/Emoll 1 applic TOPICAL BID PRN 01/25/24 01/25/24 History [Clobetasol Emulsion 0.05% Foam] Diclofenac Sodium Gel [Voltaren 1% 2 gm TOPICAL QID PRN 01/25/24 01/25/24 History Gel] Dicyclomine [Bentyl] 10 mg PO TID 01/25/24 01/25/24 History Escitalopram [Lexapro] 10 mg PO DAILY 01/25/24 01/25/24 History Furosemide [Lasix] 20 mg PO DAILY 01/25/24 01/25/24 History Gabapentin [Neurontin] 800 mg PO TID 01/25/24 01/25/24 History Ketoconazole 2% Shampoo [Nizoral] 1 applic TOPICAL DAILY PRN 01/25/24 01/25/24 History Lidocaine 5% Patch [Lidoderm] 1 patch TOPICAL DAILY PRN 01/25/24 01/25/24 History Losartan [Cozaar] 50 mg PO DAILY 01/25/24 01/25/24 History Metoprolol Tartrate [Lopressor] 25 mg PO BID 01/25/24 01/25/24 History Montelukast [Singulair] 10 mg PO HS 01/25/24 01/25/24 History Nystatin/Triamcin 1 applic TOPICAL BID PRN 01/25/24 01/25/24 History [Nystatin-Triamcinolone Cream] Ondansetron Odt [Zofran Odt] 4 mg PO Q4H PRN 01/25/24 01/25/24 History Pantoprazole [Protonix] 40 mg PO BID 01/25/24 01/25/24 History Potassium Chloride 20 meq PO DAILY PRN 01/25/24 01/25/24 History Simvastatin [Zocor] 40 mg PO HS 01/25/24 01/25/24 History Sodium Chloride Tab 1 gm PO BID 01/25/24 01/25/24 History Sucralfate [Carafate] 1 gm PO ACHS 01/25/24 01/25/24 History Testosterone Cypionate 50 mg IM Q14D 01/25/24 01/25/24 History [Depo-Testosterone] diazePAM [Valium] 5 mg PO HS PRN 01/25/24 01/25/24 History tadalafiL 10 mg PO DAILY 01/25/24 01/25/24 History Allergies Allergy/AdvReac Type Severity Reaction Status Date / Time atorvastatin [From Lipitor] AdvReac MUSCLE Verified 01/25/24 09:34 CRAMPS hydrochlorothiazide AdvReac Patient Verified 01/25/24 09:34 had episode of severe hyponatremia requiring hospita ropinirole [From Requip] AdvReac Hallucinati Verified 01/25/24 09:34 ons scopolamine AdvReac Hallucinati Verified 01/25/24 09:34 ons Physical Exam Vitals: Vital Signs Temp Pulse Pulse Resp BP BP Pulse Ox 01/26/24 02:00 98.6 F 72 17 149/79 100 01/25/24 18:04 98.2 F 66 17 165/77 97 01/25/24 17:19 71 18 162/90 97 01/25/24 14:41 68 16 148/81 97 01/25/24 09:30 98.4 F 91 18 144/89 98 Intake and Output 01/25/24 01/26/24 01/26/24 22:59 06:59 14:59 Output Total 400 Balance -400 Output: Urine 400 Other: Voiding Method Urinal Urinal # Voids 1 Weight 95.254 kg Results 01/26/24 05:10 01/26/24 05:10 Cardiac Enzymes 01/25/24 01/25/24 01/25/24 Range/Units 09:57 09:57 14:29 AST 19 (17-59) U/L Troponin I <0.012 <0.012 (0.000-0.034) ng/mL 01/25/24 Range/Units 18:02 AST (17-59) U/L Troponin I <0.012 (0.000-0.034) ng/mL Coagulation 01/25/24 Range/Units 09:57 PT 10.4 (10.0-12.5) sec APTT 28.6 (22.0-30.0) sec CBC 01/25/24 Range/Units 09:57 WBC 8.3 (3.8-10.6) k/uL RBC 4.60 (4.30-5.90) m/uL Hgb 14.1 (13.0-17.5) gm/dL Hct 41.4 (39.0-53.0) % Plt Count 424 (150-450) k/uL Comprehensive Metabolic Panel 01/25/24 Range/Units 09:57 Sodium 132 L (137-145) mmol/L Potassium 3.0 L (3.5-5.1) mmol/L Chloride 99 (98-107) mmol/L Carbon Dioxide 23 (22-30) mmol/L BUN <2 L (9-20) mg/dL Creatinine 0.70 (0.66-1.25) mg/dL Glucose 172 H (74-99) mg/dL Calcium 8.3 L (8.4-10.2) mg/dL AST 19 (17-59) U/L ALT 17 (4-49) U/L Alkaline Phosphatase 134 H (38-126) U/L Total Protein 6.4 (6.3-8.2) g/dL Albumin 3.9 (3.5-5.0) g/dL Current Medications Generic Name Dose Route Start Last Admin Trade Name Freq PRN Reason Stop Dose Admin Acetaminophen 650 mg 01/25/24 13:06 Acetaminophen Tab 325 Mg Tab PO Q6HR PRN Mild Pain or Fever > 100.5 Acetaminophen/Butalbital/Caffeine 1 each 01/25/24 19:07 01/25/24 21:40 Butalb/Apap/Caff 50-325-40mg Tab PO 1 each Q4HR PRN Administration Migraine Headache Amitriptyline HCl 12.5 mg 01/25/24 21:00 01/25/24 21:32 Amitriptyline Hcl 25 Mg Tab PO 12.5 mg HS DANIEL Administration Brimonidine Tartrate 1 drops 01/25/24 21:00 01/25/24 21:32 Brimonidine Tartrate 0.2% Drops 5 Ml Btl BOTH EYES 1 drops BID [facility] Administration Cholecalciferol 25 mcg 01/26/24 09:00 Cholecalciferol 25 Mcg (1000 Iu) Tablet PO DAILY [facility] Diazepam 5 mg 01/25/24 19:07 01/25/24 21:40 Diazepam 5 Mg Tab PO 5 mg HS PRN Administration Anxiety/Insomnia Dicyclomine HCl 10 mg 01/25/24 22:00 01/25/24 21:31 Dicyclomine 10 Mg Cap PO 10 mg TID [facility] Administration Escitalopram Oxalate 10 mg 01/26/24 09:00 Escitalopram 10 Mg Tab PO DAILY [facility] Furosemide 20 mg 01/26/24 09:00 Furosemide 20 Mg Tab PO DAILY [facility] Gabapentin 800 mg 01/25/24 22:00 01/25/24 21:31 Gabapentin 400 Mg Cap PO 800 mg TID [facility] Administration Heparin Sodium (Porcine) 5,000 unit 01/25/24 21:00 01/25/24 21:32 Heparin Sodium,Porcine 5,000 Unit/Ml 1 Ml Vial SQ 5,000 unit Q12HR [facility] Administration Ketorolac Tromethamine 15 mg 01/25/24 13:06 01/25/24 18:03 Ketorolac 15 Mg/Ml 1 Ml Vial IVP 01/28/24 13:07 15 mg Q6HR PRN Administration Moderate Pain (Scale 4 to 6) Losartan Potassium 50 mg 01/26/24 09:00 Losartan 50 Mg Tab PO DAILY [facility] Metoprolol Tartrate 25 mg 01/25/24 21:00 01/25/24 21:31 Metoprolol Tartrate 25 Mg Tab PO 25 mg BID [facility] Administration Montelukast Sodium 10 mg 01/25/24 21:00 01/25/24 21:31 Montelukast 10 Mg Tab PO 10 mg HS [facility] Administration Morphine Sulfate 4 mg 01/25/24 13:06 Morphine Sulfate 4 Mg/Ml Syringe IV Q4HR PRN Severe Pain (Scale 7 to 10) Naloxone HCl 0.2 mg 01/25/24 13:06 Naloxone 0.4 Mg/Ml 1 Ml Vial IV Q2M PRN Opioid Reversal Non-Formulary Medication 40 mg 01/25/24 21:00 01/25/24 21:33 Simvastatin PO Not Given HS [facility] Ondansetron HCl 4 mg 01/25/24 13:06 01/25/24 21:41 Ondansetron 4 Mg/2 Ml Vial IVP 4 mg Q8HR PRN Administration Nausea And Vomiting Ondansetron HCl 4 mg 01/25/24 19:07 Ondansetron Odt 4 Mg Tab PO Q4H PRN Nausea And Vomiting Pantoprazole Sodium 40 mg 01/26/24 09:00 Pantoprazole 40 Mg/10 Ml Vial IV DAILY DANIEL Potassium Chloride 20 meq 01/25/24 19:07 Potassium Chloride Er 20 Meq Tab.Er PO DAILY PRN Diarrhea Sodium Chloride 1 gm 01/25/24 21:00 01/25/24 21:31 Sodium Chloride Tab 1 Gm Tab PO 1 gm BID DANIEL Administration Sucralfate 1 gm 01/25/24 21:00 01/25/24 21:32 Sucralfate 1 Gm Tab PO 1 gm ACHS DANIEL Administration Timolol Maleate 1 drops 01/25/24 21:00 01/25/24 21:32 Timolol 0.5% Ophth Drops 5 Ml Btl BOTH EYES 1 drops BID DANIEL Administration Intake and Output 01/25/24 01/26/24 01/26/24 22:59 06:59 14:59 Output Total 400 Balance -400 Output: Urine 400 Other: Voiding Method Urinal Urinal # Voids 1 Weight 95.254 kg 01/25/24 09:57 01/25/24 09:57
[2024-01-27 04:10] VITALS: RESP 17
--- NOTE | 2024-01-27 06:52 | CA ---
Transthoracic Echo Report Name: Clyde Pascual Age: 73 Gender: M : 1950 Exam Date: 01/26/2024 13:30 Exam Location: [facility] Ht (in): 73 Wt (lb): 210 Ordering Physician: Zahra Lainez Attending/Referring Phys: [id number], Fatou Development Geologist Maliha Genao RDCS Procedure CPT: Indications: LVF Cardiac Hx: Technical Quality: Technically difficult study Contrast 1: Definity Total Dose (mL): 2 Contrast 2: Total Dose (mL): MEASUREMENTS (Male / Female) Normal Values 2D ECHO LV Diastolic Diameter PLAX 5.6 cm 4.2 - 5.9 / 3.9 - 5.3 cm LV Systolic Diameter PLAX 3.4 cm IVS Diastolic Thickness 1.4 cm 0.6 - 1.0 / 0.6 - 0.9 cm LVPW Diastolic Thickness 1.4 cm 0.6 - 1.0 / 0.6 - 0.9 cm LV Relative Wall Thickness 0.5 RV Internal Dim ED PLAX 3.6 cm LA Systolic Diameter LX 3.9 cm 3.0 - 4.0 / 2.7 - 3.8 cm LV Diastolic Volume MOD BP 72.8 cm??? 67 - 155 / 56 - 104 cm??? LV Systolic Volume MOD BP 29.2 cm??? 22 - 58 / 19 - 49 cm??? LV Ejection Fraction MOD BP 59.9 % >= 55 % LV Cardiac Index MOD BP 1465.4 cm???/min???m??? LV Diastolic Volume MOD 4C 91.6 cm??? LV Systolic Volume MOD 4C 31.1 cm??? LV Ejection Fraction MOD 4C 66.1 % LV Cardiac Index MOD 4C 2035.6 cm???/min???m??? LV Diastolic Length 4C 7.4 cm LV Systolic Length 4C 6.4 cm LV Diastolic Volume MOD 2C 52.1 cm??? LV Systolic Volume MOD 2C 25.9 cm??? LV Ejection Fraction MOD 2C 50.3 % LV Cardiac Index MOD 2C 881.7 cm???/min???m??? LV Diastolic Length 2C 8.4 cm LV Systolic Length 2C 7.2 cm LA Volume 84.3 cm??? 18 - 58 / 22 - 52 cm??? LA Volume Index 37.8 cm???/m??? 16 - 28 cm???/m??? M-MODE Aortic Root Diameter MM 4.2 cm DOPPLER AV Peak Velocity 134.4 cm/s AV Peak Gradient 7.2 mmHg AI Peak Velocity 405.8 cm/s AI Peak Gradient 65.9 mmHg AI Pressure Half Time 1098.1 ms MV Area PHT 3.0 cm??? Mitral E Point Velocity 83.8 cm/s Mitral A Point Velocity 96.3 cm/s Mitral E to A Ratio 0.9 MV Deceleration Time 252.5 ms TR Peak Velocity 257.6 cm/s TR Peak Gradient 26.5 mmHg Right Ventricular Systolic Press 31.2 mmHg FINDINGS Left Ventricle Left ventricular ejection fraction is estimated at 55-60 %. Left ventricular cavity size normal.Normal left ventricular systolic function with no obvious regional wall motion abnormalities. Mildly increased left ventricular wall thickness. Right Ventricle Mild right ventricular dilatation. Right ventricular systolic pressure within normal limits. Right Atrium Normal right atrial size. No right atrial thrombus or mass seen. Left Atrium Moderately increased left atrial volume. Mildly increased left atrial area. No left atrial thrombus or mass present. Mitral Valve Structurally normal mitral valve. Mild mitral regurgitation. Aortic Valve Trileaflet aortic valve. Mild aortic regurgitation. Tricuspid Valve Structurally normal tricuspid valve. Mild tricuspid regurgitation. Pulmonic Valve Structurally normal pulmonic valve. Trace pulmonic regurgitation. Pericardium No pericardial or pleural effusion.echo free space anterior to the right ventricle likely represents a fat pad. Aorta Mild aortic dilatation at the level of the sinuses of valsalva 42 mm CONCLUSIONS 1. Normal left ventricular size and systolic function 2. Mild mitral, aortic and tricuspid regurgitation with no evidence of pulmonary hypertension Previewed by: Dr. Lorri Carrero MD (Electronically Signed) Final Date: 27 January 2024 06:51
[2024-01-27 07:57] VITALS: BP 166/80; PULSE 77; TEMP 98.6
--- NOTE | 2024-01-27 10:32 | P.PN ---
Subjective Progress Note Date: 01/27/24 This is a 73-year-old male patient of Dr. SELENA Goode with past medical history of coronary artery disease with previous PCI of the LAD and diagonal, hypertension, SVT status post radiofrequency ablation in 2011, history of hiatal hernia and ulcer, history of hyponatremia. We have been asked to evaluate the patient for chest pain. He states he has been sick for about a week with stomach issues, vomiting and diarrhea as well as a low-grade fever. He suddenly had chest pain with some shortness of breath when he woke up. He states the chest pain is not related to activity. This pain is also not similar to that when he required stenting in the past. He states he has not had any diarrhea further few days now. He has no chest pain at the time of this evaluation. He also denies having any palpitations, lower extremity edema, cough or fever. He denies any blood in his stools. Patient is a non-smoker. Blood pressure 149/79, heart rate 74, pulse ox 100% on room air. -EKG: Sinus rhythm with no acute ST changes -Chest x-ray: No acute process. -CT abdomen and pelvis revealed no acute process. Colonic diverticulosis. Prostatomegaly. -Laboratory studies: Troponin negative x 3. CBC within normal limits. Sodium 132, potassium 3, creatinine 0.7, alkaline phosphatase 134. -Home cardiac medications: Lasix 20 mg daily, losartan 50 mg daily, Lopressor 25 mg twice daily, potassium chloride 20 mill colons daily as needed, simvastatin 40 mg at bedtime. -Lexiscan Cardiolite stress test performed in the office on 07/26/2021: By EKG criteria, inconclusive Lexiscan stress test because of resting EKG changes. Normal MPI with normal ejection fraction without stress-induced ischemia. EF is more than 60% and there is no ischemia. -Echocardiogram performed in the office on 07/26/2021: EF 55 to 60%, moderate concentric left ventricular hypertrophy. Mild to moderate aortic regurgitation. Aortic valve is calcified. Ascending aorta is enlarged and is aneurysmal. Mild to moderate mitral regurgitation. Mitral valve is calcified. Mild tricuspid regurgitation. PASP 29 mmHg. Mild pulmonic regurgitation. -C 10/29/2011 revealed normal LV size and systolic function. Dominant RCA free of significant disease. Circumflex is free of significant disease. Previously stented LAD and diagonal are widely patent with no more than 40% narrowing. 01/27/2024 Patient was seen and examined resting comfortably in bed. Overall he is feeling better he denies further nausea, vomiting and has had no diarrhea. He has had no further chest discomfort. His breathing has been stable. Echocardiogram wi Doppler study showed a normal LV systolic function with mild MR, mild AI, and mild TR. Physical examination: Gen: This is a 73-year-old male in no acute distress VS: reviewed HEENT: Head is atraumatic, normocephalic. Pupils equal, round. Sclerae is anicteric. NECK: Supple. No JVD. LUNGS: Clear to auscultation. No wheezes or rhonchi. No intercostal retractions. HEART: Regular rate and rhythm. No murmur. ABDOMEN: Soft No tenderness. EXTREMITIES: No pedal edema. No calf tenderness. NEUROLOGICAL: Patient is awake, alert and oriented x3. Assessment: Atypical chest pain, acute coronary syndrome ruled out Chest pain most likely related to vomiting and diarrhea History of coronary artery disease with previous PCI of the LAD and diagonal Hypertension SVT status post radiofrequency ablation in 2011 History of hiatal hernia and ulcer Plan: From cardiology's perspective no need for further cardiac workup at this time. Patient is stable for discharge home from our perspective. He will follow-up in the office with Dr. Goode in 1 to 2 weeks. [employer] note has been reviewed, I agree with a documented findings and plan of care. Patient was seen and examined. Objective - Vital Signs Vital signs: Vital Signs Temp 98.6 F 01/27/24 07:00 Pulse 77 01/27/24 07:00 Resp 17 01/27/24 07:00 BP 166/80 01/27/24 07:00 Pulse Ox 96 01/27/24 07:00 FiO2 Intake & Output 01/26/24 01/27/24 01/27/24 18:59 06:59 18:59 Intake Total 519 236 Balance 519 236 Intake: Oral 519 236 Other: Voiding Method Urinal # Voids 1 1 - Labs CBC & Chem 7: 01/26/24 05:10 01/26/24 05:10
--- NOTE | 2024-01-27 10:48 | P.DS ---
Providers Date of admission: 01/25/24 13:06 Attending physician: Gustavo Etienne Consults: 01/25/24 13:06 Consult Physician Routine Consulting Provider: [facility] Consult Reason/Comments: chest pain Do you want consulting provider notified?: Yes Primary care physician: Jocelin Khan Hospital Course: Final Diagnosis Vomiting diarrhea likely related to a viral gastro enteritis Hypovolemic hyponatremia secondary to above and poor oral intake improved with IV hydration Chest pain atypical likely related to the vomiting ACS ruled out Gastroesophageal reflux disease Hypertension Hyperlipidemia Osteoarthritis Chronic gastroesophageal stenosis as per patient Bilateral lower extremity neuropathy Full Code Discharge Disposition Stable for discharge home. He will continue all same home medications. Follow- up with his PCP Dr. Khan 1 to 2 days. Repeat blood work to monitor the sodium level although it has resolved with hydration. Follow-up with cardiology in the office. Hospital Course This is a pleasant 73 years old male with past medical history of multiple medical problems including history of multiple cardiac stents with Dr. Goode about 24 years ago. Ptatient came in for chest pain, and also has been complaining from nausea vomiting and diarrhea for about 1 week about 3-4 times per day for each, diarrhea may be less but there was no blood in either. No abdominal pain but he has mild suprapubic tenderness. Patient denies dysuria or urgency or other urinary symptoms. He woke up about 4 AM with central chest pain radiating down, felt like tightness with no specific relieving or precipitating factors associated with some dyspnea. Has some dry cough which is mild. He denies dizziness, he has mild headache, no weakness or numbness. No smoking alcohol or illicit drugs. He is afebrile and vital stable. Sodium 132, potassium 3.0. Rest of liver enzymes, amylase lipase were unremarkable. Troponin is negative. CT of the abdomen and pelvis is negative for acute process showing diverticulosis without diverticulitis and a large prostate. He was the hospital a consult placed to cardiology services for the workup for the chest pain. Pain is essentially gone at this time for slightly was a gastro viral illness. At this time nausea vomiting diarrhea have also resolved and he is tolerating some diet. Cardiology recommending echocardiogram if this is normal patient can be discharged home today he is not having any abdominal pain no nausea vomiting or diarrhea no chest pain no shortness of breath. Continue on all same home medications. His sodium level improved with hydration. Please see medication reconciliation for a list of current medications. Thank you for allowing us to participate in the care of this patient. The impression and plan of care has been dictated by Lali Boateng, Nurse Practitioner as directed. Dr. Lilliana MD I have performed a history and physical examination and medical decision making of this patient, discussed the same with the dictator, and agree with the dictators assessment and plan as written, documented as a scribe. Based on total visit time, I have performed more than 50% of this visit. Patient Condition at Discharge: Stable Plan - Discharge Summary Discharge Rx Participant: No New Discharge Prescriptions: Continue diazePAM [Valium] 5 mg PO HS PRN PRN Reason: Anxiety/Insomnia Testosterone Cypionate [Depo-Testosterone] 50 mg IM Q14D tadalafiL 10 mg PO DAILY Sodium Chloride Tab 1 gm PO BID Simvastatin [Zocor] 40 mg PO HS Potassium Chloride 20 meq PO DAILY PRN PRN Reason: Diarrhea Losartan [Cozaar] 50 mg PO DAILY Lidocaine 5% Patch [Lidoderm 5% Patch] 1 patch TOPICAL DAILY PRN PRN Reason: Pain Ketoconazole 2% Shampoo [Nizoral] 1 applic TOPICAL DAILY PRN PRN Reason: Skin Irritation Gabapentin [Neurontin] 800 mg PO TID Clobetasol Propionate/Emoll [Clobetasol Emulsion 0.05% Foam] 1 applic TOPICAL BID PRN PRN Reason: Skin Irritation Clindamycin Gel [Cleocin T 1% Gel] 1 applic TOPICAL BID PRN PRN Reason: Skin Irritation Butalb/Acetaminophen/Caffeine [Fioricet 50-300-40 mg Capsule] 1 cap PO Q4HR PRN PRN Reason: Migraine Headache Amitriptyline HCl [Elavil] 12.5 mg PO HS Acetaminophen [Tylenol 8 Hour] 650 mg PO Q4H PRN PRN Reason: Fever And/ Or Pain Brimonidine Tartrate/Timolol [Brimonidine-Timolol 0.2%-0.5%] 1 drop BOTH EYES BID Furosemide [Lasix] 20 mg PO DAILY Cholecalciferol [Vitamin D3 (25 Mcg = 1000 Iu)] 25 mcg PO DAILY Sucralfate [Carafate] 1 gm PO ACHS Pantoprazole [Protonix] 40 mg PO BID Ondansetron Odt [Zofran ODT] 4 mg PO Q4H PRN PRN Reason: Nausea And Vomiting Nystatin/Triamcin [Nystatin-Triamcinolone Cream] 1 applic TOPICAL BID PRN PRN Reason: Skin Irritation Montelukast [Singulair] 10 mg PO HS Metoprolol Tartrate [Lopressor] 25 mg PO BID Escitalopram [Lexapro] 10 mg PO DAILY Dicyclomine [Bentyl] 10 mg PO TID Diclofenac Sodium Gel [Voltaren 1% Gel] 2 gm TOPICAL QID PRN PRN Reason: Pain Betamethasone Dipropionate [Diprolene 0.05% Ointment] 1 applic TOPICAL DAILY PRN PRN Reason: Skin Irritation Discharge Medication List Acetaminophen [Tylenol 8 Hour] 650 mg PO Q4H PRN 01/25/24 [History] Amitriptyline HCl [Elavil] 12.5 mg PO HS 01/25/24 [History] Betamethasone Dipropionate [Diprolene 0.05% Ointment] 1 applic TOPICAL DAILY PRN 01/25/24 [History] Brimonidine Tartrate/Timolol [Brimonidine-Timolol 0.2%-0.5%] 1 drop BOTH EYES BID 01/25/24 [History] Butalb/Acetaminophen/Caffeine [Fioricet 50-300-40 mg Capsule] 1 cap PO Q4HR PRN 01/25/24 [History] Cholecalciferol [Vitamin D3 (25 Mcg = 1000 Iu)] 25 mcg PO DAILY 01/25/24 [History] Clindamycin Gel [Cleocin T 1% Gel] 1 applic TOPICAL BID PRN 01/25/24 [History] Clobetasol Propionate/Emoll [Clobetasol Emulsion 0.05% Foam] 1 applic TOPICAL BID PRN 01/25/24 [History] Diclofenac Sodium Gel [Voltaren 1% Gel] 2 gm TOPICAL QID PRN 01/25/24 [History] Dicyclomine [Bentyl] 10 mg PO TID 01/25/24 [History] Escitalopram [Lexapro] 10 mg PO DAILY 01/25/24 [History] Furosemide [Lasix] 20 mg PO DAILY 01/25/24 [History] Gabapentin [Neurontin] 800 mg PO TID 01/25/24 [History] Ketoconazole 2% Shampoo [Nizoral] 1 applic TOPICAL DAILY PRN 01/25/24 [History] Lidocaine 5% Patch [Lidoderm 5% Patch] 1 patch TOPICAL DAILY PRN 01/25/24 [History] Losartan [Cozaar] 50 mg PO DAILY 01/25/24 [History] Metoprolol Tartrate [Lopressor] 25 mg PO BID 01/25/24 [History] Montelukast [Singulair] 10 mg PO HS 01/25/24 [History] Nystatin/Triamcin [Nystatin-Triamcinolone Cream] 1 applic TOPICAL BID PRN 01/25/24 [History] Ondansetron Odt [Zofran ODT] 4 mg PO Q4H PRN 01/25/24 [History] Pantoprazole [Protonix] 40 mg PO BID 01/25/24 [History] Potassium Chloride 20 meq PO DAILY PRN 01/25/24 [History] Simvastatin [Zocor] 40 mg PO HS 01/25/24 [History] Sodium Chloride Tab 1 gm PO BID 01/25/24 [History] Sucralfate [Carafate] 1 gm PO ACHS 01/25/24 [History] Testosterone Cypionate [Depo-Testosterone] 50 mg IM Q14D 01/25/24 [History] diazePAM [Valium] 5 mg PO HS PRN 01/25/24 [History] tadalafiL 10 mg PO DAILY 01/25/24 [History] Follow up Appointment(s)/Referral(s): Jeff Goode MD [STAFF PHYSICIAN] - 02/03/24 10:30 am Jocelin Khan MD [Primary Care Provider] - 1-2 days Jourdan Sanchez MD [STAFF PHYSICIAN] - 1 Week (urologist for enlarged prostate; office will call patient with follow up appointment date and time ) Ambulatory/Diagnostic Orders: Basic Metabolic Panel [LAB.AMB] Time Frame: 3 Days, Location: None Selected Discharge Disposition: HOME SELF-CARE
== END 2024-01-27 10:45 | disposition home or self-care (01) ==
LOC: EC 09:25 → 6NMEDSUR 13:06
PROVIDERS: ADMIT Hospitalist; ATTEND Hospitalist
DX: E87.1 Hypo-osmolality and hyponatremia (principal); E86.0 Dehydration; E87.6 Hypokalemia; I25.119 Atherosclerotic heart disease of native coronary artery with unspecified angina pectoris; R10.9 Unspecified abdominal pain; K57.30 Diverticulosis of large intestine without perforation or abscess without bleeding; E86.1 Hypovolemia; R19.7 Diarrhea, unspecified; I08.3 Combined rheumatic disorders of mitral, aortic and tricuspid valves; I11.9 Hypertensive heart disease without heart failure; I71.21 Aneurysm of the ascending aorta, without rupture; K21.9 Gastro-esophageal reflux disease without esophagitis; E78.5 Hyperlipidemia, unspecified; N40.0 Benign prostatic hyperplasia without lower urinary tract symptoms; K31.89 Other diseases of stomach and duodenum; Z88.8 Allergy status to other drugs, medicaments and biological substances; G57.93 Unspecified mononeuropathy of bilateral lower limbs; M19.90 Unspecified osteoarthritis, unspecified site; Z79.899 Other long term (current) drug therapy; Z11.52 Encounter for screening for COVID-19; Z11.59 Encounter for screening for other viral diseases; Z86.79 Personal history of other diseases of the circulatory system; Z95.5 Presence of coronary angioplasty implant and graft; Z87.11 Personal history of peptic ulcer disease; Z87.19 Personal history of other diseases of the digestive system
CPT/HCPCS: 96376 ×3; 96372 ×3; 96361; 96374; 96375; 99285; 36415; 93005; 93306; 87651; 80053 ×2; 82150; 83605; 83690; 83735; 84484; 85025 ×2; 85610; 85730; 81003; 87636; 71046; 74177; G0378 ×3; J2270; J1644 ×3; J2405 ×3; Q9957; J1885 ×3; Q9967; J2470 ×3

== ENCOUNTER 2024-02-01 10:48 | Inpatient (IN) | payer OTHER, MEDICARE ==
--- NOTE | 2024-02-01 11:18 | ED ---
General Adult HPI - General Chief complaint: Nausea/Vomiting/Diarrhea Stated complaint: Nausea,Vomiting Time Seen by Provider: 02/01/24 11:00 Source: patient, EMS, RN notes reviewed, old records reviewed Mode of arrival: EMS Limitations: no limitations - History of Present Illness Initial comments: This is a 73-year-old male who presents to the emergency department complaining of nausea vomiting diarrhea. Patient states that started on Thursday however last week he had a similar episode and he came to the hospital and was discharged on Thursday. Patient states for the next 2 days he felt fine but on Thursday he started having nausea vomiting diarrhea again. Patient states he also was complaining of headache which she gets typically every day but is a little worse today than normal. Patient states has not been able to eat or drink over the last couple of days because of the nausea vomiting. Patient states he took Zofran prior to arrival and it did not help - Related Data Home Medications Medication Instructions Recorded Confirmed Acetaminophen [Tylenol 8 Hour] 650 mg PO Q4H PRN 01/25/24 02/01/24 Amitriptyline HCl [Elavil] 12.5 mg PO HS 01/25/24 02/01/24 Betamethasone Dipropionate 1 applic TOPICAL DAILY PRN 01/25/24 02/01/24 [Diprolene 0.05% Ointment] Brimonidine Tartrate/Timolol 1 drop BOTH EYES BID 01/25/24 02/01/24 [Brimonidine-Timolol 0.2%-0.5%] Butalb/Acetaminophen/Caffeine 1 cap PO Q4HR PRN 01/25/24 02/01/24 [Fioricet 50-300-40 mg Capsule] Cholecalciferol [Vitamin D3 (25 25 mcg PO DAILY 01/25/24 02/01/24 Mcg = 1000 Iu)] Clindamycin Gel [Cleocin T 1% Gel] 1 applic TOPICAL BID PRN 01/25/24 02/01/24 Clobetasol Propionate/Emoll 1 applic TOPICAL BID PRN 01/25/24 02/01/24 [Clobetasol Emulsion 0.05% Foam] Diclofenac Sodium Gel [Voltaren 1% 2 gm TOPICAL QID PRN 01/25/24 02/01/24 Gel] Dicyclomine [Bentyl] 10 mg PO TID 01/25/24 02/01/24 Escitalopram [Lexapro] 10 mg PO DAILY 01/25/24 02/01/24 Furosemide [Lasix] 20 mg PO DAILY 01/25/24 02/01/24 Gabapentin [Neurontin] 800 mg PO TID 01/25/24 02/01/24 Ketoconazole 2% Shampoo [Nizoral] 1 applic TOPICAL DAILY PRN 01/25/24 02/01/24 Lidocaine 5% Patch [Lidoderm 5% 1 patch TOPICAL DAILY PRN 01/25/24 02/01/24 Patch] Losartan [Cozaar] 50 mg PO DAILY 01/25/24 02/01/24 Metoprolol Tartrate [Lopressor] 25 mg PO BID 01/25/24 02/01/24 Montelukast [Singulair] 10 mg PO HS 01/25/24 02/01/24 Nystatin/Triamcin 1 applic TOPICAL BID PRN 01/25/24 02/01/24 [Nystatin-Triamcinolone Cream] Ondansetron Odt [Zofran ODT] 4 mg PO Q4H PRN 01/25/24 02/01/24 Pantoprazole [Protonix] 40 mg PO BID 01/25/24 02/01/24 Potassium Chloride 20 meq PO DAILY PRN 01/25/24 02/01/24 Simvastatin [Zocor] 40 mg PO HS 01/25/24 02/01/24 Sodium Chloride Tab 1 gm PO BID 01/25/24 02/01/24 Sucralfate [Carafate] 1 gm PO ACHS 01/25/24 02/01/24 Testosterone Cypionate 50 mg IM Q14D 01/25/24 02/01/24 [Depo-Testosterone] diazePAM [Valium] 5 mg PO HS PRN 01/25/24 02/01/24 tadalafiL 10 mg PO DAILY 01/25/24 02/01/24 Allergies Allergy/AdvReac Type Severity Reaction Status Date / Time atorvastatin [From Lipitor] AdvReac MUSCLE Verified 02/01/24 13:20 CRAMPS hydrochlorothiazide AdvReac Patient Verified 02/01/24 13:20 had episode of severe hyponatremia requiring hospita ropinirole [From Requip] AdvReac Hallucinati Verified 02/01/24 13:20 ons scopolamine AdvReac Hallucinati Verified 02/01/24 13:20 ons Review of Systems ROS Statement: Those systems with pertinent positive or pertinent negative responses have been documented in the HPI. ROS Other: All systems not noted in ROS Statement are negative. Past Medical History Past Medical History: Coronary Artery Disease (CAD), Chest Pain / Angina, Eye Disorder, GERD/Reflux, Hyperlipidemia, Hypertension, Myocardial Infarction ([place]), Osteoarthritis (OA) Additional Past Medical History / Comment(s): recent admission for nausea/vomiting/diarrhea, Neck pain, SVT with ablation, duodenal ulcers, chronic duodenal stricture, bilateral glaucoma, sinusitis, migraines, anemia, esophagitis,hiatal hernia, chronic back pain, past fx ribs/sternum Last Myocardial Infarction Date:: 1999 History of Any Multi-Drug Resistant Organisms: None Reported Past Surgical History: Cardiac Ablation, Cholecystectomy, Heart Catheterization With Stent Additional Past Surgical History / Comment(s): stent bilateral eyes 03/2018, PCI with 3 stents, sinus surgery, cataracts bilaterally with lens implants, EGDs/colonoscopies, Past Anesthesia/Blood Transfusion Reactions: No Reported Reaction Additional Past Anesthesia/Blood Transfusion Reaction / Comment(s): Pt has had past multiple transfusions without reaction. Date of Last Stent Placement:: 1999 Past Psychological History: Anxiety Smoking Status: Never smoker Past Alcohol Use History: None Reported Past Drug Use History: None Reported - Past Family History Father Additional Family Medical History / Comment(s): Father at the age of 68yrs from a ruptured aortic aneurysm. Mother Additional Family Medical History / Comment(s): Mother lived into her 80's. Brother(s) Family Medical History: Cancer Additional Family Medical History / Comment(s): The patient had 3 brothers. One from colon cancer with metastatic disease to the brain. One brother at age 79 from a myocardial infarction. He has 1 brother that is alive with history of skin cancer and diabetes. Sister(s) Additional Family Medical History / Comment(s): The patient is a total of 3 sisters. One in her 80s from myocardial infarction. One sister at age 58 from coronary artery disease and also had a valvular disorder. Patient has one sister alive with diabetes and multiple other medical conditions. Patient has 2 sons and 1 daughter with no major medical problems. General Exam - General Exam Comments Initial Comments: GENERAL: Patient is well-developed and well-nourished. Patient is nontoxic and well- hydrated and is in mild distress. ENT: Neck is soft and supple. No significant lymphadenopathy is noted. Oropharynx is clear. Moist mucous membranes. Neck has full range of motion without eliciting any pain. EYES: The sclera were anicteric and conjunctiva were pink and moist. Extraocular movements were intact and pupils were equal round and reactive to light. Eyelids were unremarkable. PULMONARY: Unlabored respirations. Good breath sounds bilaterally. No audible rales rhonchi or wheezing was noted. CARDIOVASCULAR: There is a regular rate and rhythm without any murmurs gallops or rubs. ABDOMEN: Soft and nontender with normal bowel sounds. SKIN: Skin is clear with no lesions or rashes and otherwise unremarkable. NEUROLOGIC: Patient is alert and oriented x3. Cranial nerves II through XII are grossly intact. Motor and sensory are also intact. Normal speech, volume and content. Symmetrical smile. MUSCULOSKELETAL: Normal extremities with adequate strength and full range of motion. No lower extremity swelling or edema. No calf tenderness. LYMPHATICS: No significant lymphadenopathy is noted PSYCHIATRIC: Normal psychiatric evaluation. Limitations: no limitations Course Vital Signs 02/01/24 02/01/24 10:51 12:34 Temperature 98.4 F 97.6 F Pulse Rate 74 68 Respiratory 18 18 Rate Blood Pressure 156/99 153/89 O2 Sat by Pulse 97 98 Oximetry Medical Decision Making - Medical Decision Making EKG is interpreted by myself. EKG shows a sinus rhythm at 70 bpm ND was 230 QRS 96 QT interval 390 QTc is 423. Patient's EKG shows no ST segment elevation or depression Was pt. sent in by a medical professional or institution (, PA, SECRET CODE EXPERT, urgent care, hospital, or [facility]...) When possible be specific @ -No Did you speak to anyone other than the patient for history (EMS, parent, family, police, friend...)? What history was obtained from this source @ -No Did you review nursing and triage notes (agree or disagree)? Why? @ -I reviewed and agree with nursing and triage notes Were old charts reviewed (outside hosp., previous admission, EMS record, old EKG, old radiological studies, urgent care reports/EKG's, [facility] records)? Report findings @ -No old charts were reviewed Differential Diagnosis? @ -Differential Dyspnea: Acute vomiting, viral syndrome, gastroenteritis, gastritis, hyponatremia, this is not an all-inclusive list EKG interpreted by me (3pts min.). @ -As above X-rays interpreted by me (1pt min.). @ -None CT interpreted by me (1pt min.). @ -None done U/S interpreted by me (1pt. min.). @ -None done What testing was considered but not performed or refused? (CT, X-rays, U/S, labs)? Why? @ -None What meds were considered but not given or refused? Why? @ -None Did you discuss the management of the patient with other professionals (professionals i.e. , PA, SECRET CODE EXPERT, lab, RT, psych nurse, social sciences department chair, coke oven mason, teacher, commissioned security officer, disease case manager rn)? Give summary @ -[facility] patient with admitting orders Was smoking cessation discussed for >3mins.? @ -No Was critical care preformed (if so, how long)? @ -No Were there social determinants of health that impacted care today? How? (Homelessness, low income, unemployed, alcoholism, drug addiction, transportation, low edu. Level, literacy, decrease access to med. care, long term, rehab)? @ -No Was there de-escalation of care discussed even if they declined (Discuss DNR or withdrawal of care, Hospice)? DNR status @ -No What co-morbidities impacted this encounter? (DM, HTN, Smoking, COPD, CAD, Cancer, CVA, ARF, Chemo, Hep., AIDS, mental health diagnosis, sleep apnea, morbid obesity)? @ -None Was patient admitted / discharged? Hospital course, mention meds given and route, prescriptions, significant lab abnormalities, going to OR and other pertinent info. @ -Patient was given Zofran and Lomotil for the vomiting diarrhea. Patient's sodium is low did get a bolus of normal saline. [facility] the patient admit the patient wrote admitting orders Undiagnosed new problem with uncertain prognosis? @ -No Drug Therapy requiring intensive monitoring for toxicity (Heparin, Nitro, Insulin, Cardizem)? @ -No Were any procedures done? @ -No Diagnosis/symptom? @ -Gastroenteritis Acute, or Chronic, or Acute on Chronic? @ -Acute Uncomplicated (without systemic symptoms) or Complicated (systemic symptoms)? @ -Complicated Side effects of treatment? @ -No Exacerbation, Progression, or Severe Exacerbation? @ -No Poses a threat to life or bodily function? How? (Chest pain, [place], [place], pneumonia, PE, COPD, DKA, ARF, appy, cholecystitis, CVA, Diverticulitis, Homicidal, Suicidal, threat to staff... and all critical care pts) @ -Yes this can lead to electrolyte abnormalities and further morbidity Diagnosis/symptom? @ -Hyponatremia Acute, or Chronic, or Acute on Chronic? @ -Acute Uncomplicated (without systemic symptoms) or Complicated (systemic symptoms)? @ -Complicated Side effects of treatment? @ -None Exacerbation, Progression, or Severe Exacerbation] @ -No Poses a threat to life or bodily function? @ -No - Lab Data Result diagrams: 02/01/24 11:17 02/01/24 11:17 Lab Results 02/01/24 02/01/24 Range/Units 11:17 11:17 WBC 10.7 H (3.8-10.6) k/uL RBC 4.86 (4.30-5.90) m/uL Hgb 14.9 (13.0-17.5) gm/dL Hct 43.2 (39.0-53.0) % MCV 89.0 (80.0-100.0) fL MCH 30.8 (25.0-35.0) pg MCHC 34.5 (31.0-37.0) g/dL RDW 12.5 (11.5-15.5) % Plt Count 356 (150-450) k/uL MPV 6.2 Neutrophils % 65 % Lymphocytes % 21 % Monocytes % 8 % Eosinophils % 5 % Basophils % 0 % Neutrophils # 6.9 (1.3-7.7) k/uL Lymphocytes # 2.3 (1.0-4.8) k/uL Monocytes # 0.8 (0-1.0) k/uL Eosinophils # 0.5 (0-0.7) k/uL Basophils # 0.0 (0-0.2) k/uL Sodium 126 L (137-145) mmol/L Potassium 3.3 L (3.5-5.1) mmol/L Chloride 98 (98-107) mmol/L Carbon Dioxide 22 (22-30) mmol/L Anion Gap 6 mmol/L BUN 5 L (9-20) mg/dL Creatinine 0.70 (0.66-1.25) mg/dL Est GFR (CKD-EPI)AfAm >90 (>60 ml/min/1.73 sqM) Est GFR (CKD-EPI)NonAf >90 (>60 ml/min/1.73 sqM) Glucose 120 H (74-99) mg/dL Calcium 8.4 (8.4-10.2) mg/dL Magnesium 1.8 (1.6-2.3) mg/dL Total Bilirubin 0.6 (0.2-1.3) mg/dL AST 20 (17-59) U/L ALT 12 (4-49) U/L Alkaline Phosphatase 89 (38-126) U/L Total Protein 6.3 (6.3-8.2) g/dL Albumin 3.6 (3.5-5.0) g/dL Amylase 41 (30-110) U/L Lipase 96 (23-300) U/L Disposition Clinical Impression: Hyponatremia, Gastroenteritis Disposition: ADMITTED IP TO THIS HOSP Referrals: Jocelin Khan MD [Primary Care Provider] - 1-2 days Time of Disposition: 13:44
[2024-02-01] MEDS: SODIUM CHLORIDE 0.9% 1,000 ML IV STA (11:19)
[2024-02-01] MEDS: SODIUM CHLORIDE 0.9% 500 ML 500 ML IV STA (11:20)
[2024-02-01] MEDS: ONDANSETRON 4 MG/2 ML VIAL IVP STA (11:21)
[2024-02-01] MEDS: DIPHENOX-ATROP 2.5-0.025 MG 1 EACH TAB PO STA ×2 (11:24→17:02)
[2024-02-01 11:31] LABS: Basophils % (A) 0 %; Eosinophils # (A) 0.5 k/uL (0-0.7); Eosinophils % (A) 5 %; HCT 43.2 % (39.0-53.0); HGB 14.9 gm/dL (13.0-17.5); Lymphocytes # (A) 2.3 k/uL (1.0-4.8); Lymphocytes % (A) 21 %; MCH 30.8 pg (25.0-35.0); MCHC 34.5 g/dL (31.0-37.0); Mean Platelet Volume 6.2; Monocytes # (A) 0.8 k/uL (0-1.0); Monocytes % (A) 8 %; Neutrophils # (A) 6.9 k/uL (1.3-7.7); Neutrophils % (A) 65 %; Platelet Count 356 k/uL (150-450); RBC 4.86 m/uL (4.30-5.90); RDW 12.5 % (11.5-15.5); WBC 10.7 k/uL (3.8-10.6)
[2024-02-01 11:57] LABS: ALT 12 U/L (4-49); AST 20 U/L (17-59); African American GFR (CKD) >90 (>60 ml/min/1.73 sqM); Albumin 3.6 g/dL (3.5-5.0); Alkaline Phosphatase 89 U/L (38-126); Amylase 41 U/L (30-110); Anion Gap 6 mmol/L; Blood Urea Nitrogen 5 mg/dL (9-20); Calcium 8.4 mg/dL (8.4-10.2); Carbon Dioxide 22 mmol/L (22-30); Chloride 98 mmol/L (98-107); Glucose 120 mg/dL (74-99); Lipase 96 U/L (23-300); Magnesium 1.8 mg/dL (1.6-2.3); Non-African American GFR(CKD) >90 (>60 ml/min/1.73 sqM); Potassium 3.3 mmol/L (3.5-5.1); Sodium 126 mmol/L (137-145); Total Bilirubin 0.6 mg/dL (0.2-1.3); Total Protein 6.3 g/dL (6.3-8.2)
[2024-02-01] MEDS: HYDROmorphone 0.5 MG/0.5 ML SYRINGE IVP STA ×2 (12:20→18:52)
[2024-02-01] MEDS: SODIUM CHLORIDE 0.9% 1,000 ML IV ONE (13:55)
[2024-02-01] MEDS: ONDANSETRON 4 MG/2 ML VIAL IVP PRN (17:03)
[2024-02-01] MEDS ORDERED: BUTALB/APAP/CAFF 50-325-40MG TAB PO PRN (18:45)
[2024-02-01] MEDS: POTASSIUM CHLORIDE ER 20 MEQ TAB.ER PO STA (18:51)
[2024-02-01] MEDS: GABAPENTIN 400 MG CAP PO SCH (19:00)
[2024-02-01 19:23] LABS: Creatinine,Urine Random 16.4 mg/dL; Protein/Creatinine Ratio,Urine 0.854
--- NOTE | 2024-02-01 22:33 | P.HPIM ---
History of Present Illness H&P Date: 02/01/24 Chief Complaint: Nausea vomiting and diarrhea Patient is a 72-year-old male with a past medical history of coronary artery disease with stent to LAD and diagonal, hypertension, IBS, SVT status post ablation in 2011, hiatal hernia, history of ulcer presents to ER with the com plaints of nausea vomiting and diarrhea for the past 2 days. Mainly watery diarrhea. No complaints of fever or chills. No complaints of abdominal pain. Denied any unusual food intake. No recent antibiotic use. Patient was recently admitted to the hospital and was discharged home on 01/26/2024. Patient was admitted to the hospital due to complaints of chest pain. Patient has been having issues with nausea and vomiting for a long time. Patient also had multiple EGDs and colonoscopies done. Patient had colonoscopy in 2020 showed normal-appearing colon from rectum to cecum with no evidence of colitis or colorectal neoplasia. Patient also has history of duodenal stricture. Also has a history of irritable bowel syndrome. CT of the abdomen pelvis on 01/25/2024 showed no acute abdominal/pelvic process. Colonic diverticulosis without evidence for acute diverticulitis. Prostatomegaly. Correlate with PSA values. Laboratory data showed WBC 10.7, hemoglobin 14.9, platelets 356 Sodium 126 potassium 3.3 chloride 98 bicarb is 22 BUN 5 and creatinine 0.70 and blood sugar 120 liver enzymes are not elevated. Lipase 96. Review of Systems Constitutional: Patient denies any fever or chills . Generalized weakness and fatigue. s. Abdomen: Nausea vomiting and diarrhea. Mild abdominal pain diffusely. Cardiovascular: Patient denies any chest pain or short of breath no palpitations. Respiratory: patient denied any cough or sputum production. No shortness of breath Neurologic: Patient denied any numbness or tingling. Patient does have headache. Musculoskeletal: Patient denies any complaints of joint swelling or deformity. Skin: Negative Psychiatric: Negative Endocrine: No heat or cold intolerance. No recent weight gain. Genitourinary: No dysuria or hematuria. All other 14 point ROS negative except the above Past Medical History Past Medical History: Coronary Artery Disease (CAD), Chest Pain / Angina, Eye D isorder, GERD/Reflux, Hyperlipidemia, Hypertension, Myocardial Infarction (AR), Osteoarthritis (OA) Additional Past Medical History / Comment(s): recent admission for nausea/v omiting/diarrhea, Neck pain, SVT with ablation, duodenal ulcers, chronic duodenal stricture, bilateral glaucoma, sinusitis, migraines, anemia, esophagitis,hiatal hernia, chronic back pain, past fx ribs/sternum Last Myocardial Infarction Date:: 1999 History of Any Multi-Drug Resistant Organisms: None Reported Past Surgical History: Cardiac Ablation, Cholecystectomy, Heart Catheterization With Stent Additional Past Surgical History / Comment(s): stent bilateral eyes 03/2018, PCI with 3 stents, sinus surgery, cataracts bilaterally with lens implants, EGDs/colonoscopies, Past Anesthesia/Blood Transfusion Reactions: No Reported Reaction Additional Past Anesthesia/Blood Transfusion Reaction / Comment(s): Pt has had past multiple transfusions without reaction. Date of Last Stent Placement:: 1999 Past Psychological History: Anxiety Smoking Status: Never smoker Past Alcohol Use History: None Reported Past Drug Use History: None Reported - Past Family History Father Additional Family Medical History / Comment(s): Father at the age of 68yrs from a ruptured aortic aneurysm. Mother Additional Family Medical History / Comment(s): Mother lived into her 80's. Brother(s) Family Medical History: Cancer Additional Family Medical History / Comment(s): The patient had 3 brothers. One from colon cancer with metastatic disease to the brain. One brother at age 79 from a myocardial infarction. He has 1 brother that is alive with history of skin cancer and diabetes. Sister(s) Additional Family Medical History / Comment(s): The patient is a total of 3 sisters. One in her 80s from myocardial infarction. One sister at age 58 from coronary artery disease and also had a valvular disorder. Patient has one sister alive with diabetes and multiple other medical conditions. Patient has 2 sons and 1 daughter with no major medical problems. Medications and Allergies Home Medications Medication Instructions Recorded Confirmed Type Acetaminophen [Tylenol 8 Hour] 650 mg PO Q4H PRN 01/25/24 02/01/24 History Amitriptyline HCl [Elavil] 12.5 mg PO HS 01/25/24 02/01/24 History Betamethasone Dipropionate 1 applic TOPICAL DAILY PRN 01/25/24 02/01/24 History [Diprolene 0.05% Ointment] Brimonidine Tartrate/Timolol 1 drop BOTH EYES BID 01/25/24 02/01/24 History [Brimonidine-Timolol 0.2%-0.5%] Butalb/Acetaminophen/Caffeine 1 cap PO Q4HR PRN 01/25/24 02/01/24 History [Fioricet 50-300-40 mg Capsule] Cholecalciferol [Vitamin D3 (25 25 mcg PO DAILY 01/25/24 02/01/24 History Mcg = 1000 Iu)] Clindamycin Gel [Cleocin T 1% Gel] 1 applic TOPICAL BID PRN 01/25/24 02/01/24 History Clobetasol Propionate/Emoll 1 applic TOPICAL BID PRN 01/25/24 02/01/24 History [Clobetasol Emulsion 0.05% Foam] Diclofenac Sodium Gel [Voltaren 1% 2 gm TOPICAL QID PRN 01/25/24 02/01/24 History Gel] Dicyclomine [Bentyl] 10 mg PO TID 01/25/24 02/01/24 History Escitalopram [Lexapro] 10 mg PO DAILY 01/25/24 02/01/24 History Furosemide [Lasix] 20 mg PO DAILY 01/25/24 02/01/24 History Gabapentin [Neurontin] 800 mg PO TID 01/25/24 02/01/24 History Ketoconazole 2% Shampoo [Nizoral] 1 applic TOPICAL DAILY PRN 01/25/24 02/01/24 History Lidocaine 5% Patch [Lidoderm 5% 1 patch TOPICAL DAILY PRN 01/25/24 02/01/24 History Patch] Losartan [Cozaar] 50 mg PO DAILY 01/25/24 02/01/24 History Metoprolol Tartrate [Lopressor] 25 mg PO BID 01/25/24 02/01/24 History Montelukast [Singulair] 10 mg PO HS 01/25/24 02/01/24 History Nystatin/Triamcin 1 applic TOPICAL BID PRN 01/25/24 02/01/24 History [Nystatin-Triamcinolone Cream] Ondansetron Odt [Zofran ODT] 4 mg PO Q4H PRN 01/25/24 02/01/24 History Pantoprazole [Protonix] 40 mg PO BID 01/25/24 02/01/24 History Potassium Chloride 20 meq PO DAILY PRN 01/25/24 02/01/24 History Simvastatin [Zocor] 40 mg PO HS 01/25/24 02/01/24 History Sodium Chloride Tab 1 gm PO BID 01/25/24 02/01/24 History Sucralfate [Carafate] 1 gm PO ACHS 01/25/24 02/01/24 History Testosterone Cypionate 50 mg IM Q14D 01/25/24 02/01/24 History [Depo-Testosterone] diazePAM [Valium] 5 mg PO HS PRN 01/25/24 02/01/24 History tadalafiL 10 mg PO DAILY 01/25/24 02/01/24 History Allergies Allergy/AdvReac Type Severity Reaction Status Date / Time atorvastatin [From Lipitor] AdvReac MUSCLE Verified 02/01/24 13:20 CRAMPS hydrochlorothiazide AdvReac Patient Verified 02/01/24 13:20 had episode of severe hyponatremia requiring hospita ropinirole [From Requip] AdvReac Hallucinati Verified 02/01/24 13:20 ons scopolamine AdvReac Hallucinati Verified 02/01/24 13:20 ons Physical Exam Vitals: Vital Signs Temp Pulse Resp BP Pulse Ox 02/01/24 18:40 71 18 138/74 96 02/01/24 12:34 97.6 F 68 18 153/89 98 02/01/24 10:51 98.4 F 74 18 156/99 97 Intake and Output 02/01/24 02/01/24 02/01/24 06:59 14:59 22:59 Output Total 1500 Balance -1500 Output: Urine 1500 Other: Weight 92.986 kg PHYSICAL EXAMINATION: Patient is lying in the bed, mild distress due to headache., awake alert and oriented.. HEENT: Normocephalic. Neck is supple. Pupils reactive. Nostrils clear. Oral cavity is moist. Neck reveals no JVD, carotid bruits, or thyromegaly. CHEST EXAMINATION: Trachea is central. Symmetrical expansion. Lung menjivar clear to auscultation and percussion. CARDIAC: Normal S1, S2 with no gallops. No murmurs ABDOMEN: Soft. Bowel sounds present. Mild diffuse tenderness. No organomegaly. No abdominal bruits. Extremities: reveal no edema. No clubbing or cyanosis Neurologically awake, alert, oriented x3 with well-coordinated movements. No focal deficits noted Skin: No rash or skin lesions. Psychiatric: Coperative. Nonsuicidal Musculoskeletal: No joint swelling or deformity. Normal range of motion. Results CBC & Chem 7: 02/01/24 11:17 02/01/24 11:17 Labs: Abnormal Lab Results - Last 24 Hours (Table) 02/01/24 02/01/24 Range/Units 11:17 11:17 WBC 10.7 H (3.8-10.6) k/uL Sodium 126 L (137-145) mmol/L Potassium 3.3 L (3.5-5.1) mmol/L BUN 5 L (9-20) mg/dL Glucose 120 H (74-99) mg/dL Thrombosis Risk Factor Assmnt - DVT/VTE Prophylaxis DVT/VTE Prophylaxis: Pharmacologic Prophylaxis ordered Assessment and Plan Assessment: Hypovolemic hyponatremia with sodium level 126 on admission Nausea vomiting and diarrhea likely acute gastroenteritis Hypokalemia Coronary arteries history of stent placement SVT with history of radiofrequency ablation Hypertension Hyperlipidemia GERD History of duodenal ulcer/chronic duodenal stricture. Chronic back pain Chronic headache IBS Anxiety GI and DVT prophylaxis with PPI and heparin subcu Plan: Patient will be continued on IV hydration with normal saline. Symptomatic management for nausea and vomiting. Replace electrolytes. Repeat sodium levels was ordered. Urine and serum osmolality, urine sodium, protein creatinine levels were ordered. Stool stool for C. difficile, culture and lactoferrin was ordered. Continue with PPI and advance as tolerated. Started back on home medications. Follow-up closely. Prognosis guarded. Time with Patient: Greater than 30
[2024-02-01] MEDS: MONTELUKAST 10 MG TAB PO SCH (22:47)
[2024-02-01] MEDS: DICYCLOMINE 10 MG CAP PO SCH (23:01)
[2024-02-01] MEDS: PANTOPRAZOLE 40 MG TABLET PO SCH (23:01)
[2024-02-01] MEDS: ESCITALOPRAM 10 MG TAB PO SCH (23:01)
[2024-02-01] MEDS: LOSARTAN 50 MG TAB PO SCH (23:02)
[2024-02-01] MEDS: HYDROmorphone 0.5 MG/0.5 ML SYRINGE IVP PRN (23:12)
[2024-02-01] MEDS: AMITRIPTYLINE HCL 25 MG TAB PO SCH (23:13)
[2024-02-01] MEDS: TIMOLOL 0.5% OPHTH DROPS 5 ML BTL BOTH EYES SCH (23:15)
[2024-02-01] MEDS: Simvastatin 40 MG Tab PO SCH (23:16)
[2024-02-01] MEDS: BRIMONIDINE TARTRATE 0.2% DROPS 5 ML BTL BOTH EYES SCH (23:16)
[2024-02-01] MEDS: METOPROLOL TARTRATE 25 MG TAB PO SCH (23:16)
[2024-02-01] MEDS: SODIUM CHLORIDE TAB 1 GM TAB PO SCH (23:17)
[2024-02-02] MEDS: HEPARIN SODIUM,PORCINE 5,000 UNIT/ML 1 ML VIAL SQ SCH (00:17)
[2024-02-02 08:23] LABS: Basophils # (A) 0.09 X 10*3/uL (0.00-0.10); Basophils % (A) 0.9 %; Eosinophils # (A) 0.29 X 10*3/uL (0.04-0.35); HCT 41.3 % (39.6-50.0); HGB 13.9 g/dL (13.0-17.0); Lymphocytes % (A) 19.6 %; MCH 30.3 pg (27.0-32.0); MCHC 33.7 g/dL (32.0-37.0); Mean Platelet Volume 8.2 FL (9.5-12.2); Monocytes # (A) 1.13 X 10*3/uL (0.20-1.00); Monocytes % (A) 11.7 %; NRBC Per 100 WBC 0 X 10*3/uL (0.00-0.01); Neutrophils # (A) 6.21 X 10*3/uL (1.80-7.70); Neutrophils % (A) 64.3 %; Platelet Count 326 X 10*3/uL (140-440); RBC 4.59 X 10*6/uL (4.40-5.60); RDW 13.5 % (11.5-14.5); WBC 9.67 X 10*3/uL (4.50-10.00)
[2024-02-02] MEDS ORDERED: LOSARTAN 50 MG TAB PO SCH (09:00)
[2024-02-02] MEDS ORDERED: ESCITALOPRAM 10 MG TAB PO SCH (09:00)
[2024-02-02 09:09] LABS: BUN/Creat Ratio 4.89 Ratio (12.00-20.00); Blood Urea Nitrogen 4.4 mg/dL (9.0-27.0); Calcium 8.7 mg/dL (8.7-10.3); Carbon Dioxide 20.3 mmol/L (21.6-31.8); Chloride 105 mmol/L (96-109); Glucose 107 mg/dL (70-110); Potassium 4.2 mmol/L (3.5-5.5); Sodium 138 mmol/L (135-145)
[2024-02-02] MEDS ORDERED: CLOBETASOL PROP 0.05% CR 15GM TOPICAL PRN (13:32)
[2024-02-02] MEDS ORDERED: diazePAM 5 MG TAB PO PRN (13:32)
[2024-02-02] MEDS ORDERED: NON FORMULARY DRUG (Clindamycin Gel 1 APPLIC Gel) TOPICAL PRN (13:32)
[2024-02-02] MEDS ORDERED: BETAMETHASONE DIPROPIONATE 0.05% OINTMENT 45 GM TUBE TOPICAL PRN (13:32)
[2024-02-02] MEDS ORDERED: DICLOFENAC SODIUM GEL 50 GM TUBE TOPICAL PRN (13:32)
[2024-02-02] MEDS ORDERED: LIDOCAINE 4% PATCH TOPICAL PRN (13:32)
[2024-02-02] MEDS ORDERED: NYSTAT-TRIAMCIN 100,000-0.1 UNIT/GM-% CREAM 30 GM TUBE TOPICAL PRN (13:32)
[2024-02-02] MEDS: BUTALB/APAP/CAFF 50-325-40MG TAB PO PRN (13:38)
[2024-02-02] MEDS ORDERED: TRIAMCINOLONE 0.1% CREAM 80 GM TUBE TOPICAL PRN (13:59)
[2024-02-02] MEDS ORDERED: NYSTATIN 100,000UNIT/GM CREAM 30 GM TUBE TOPICAL PRN (13:59)
[2024-02-02 16:21] VITALS: BMI 27.0
[2024-02-02] MEDS: SUCRALFATE 1 GM TAB PO SCH (18:02)
[2024-02-02] MEDS ORDERED: LOPERAMIDE 2 MG CAP PO PRN (18:33)
[2024-02-02] MEDS ORDERED: DIPHENOX-ATROP 2.5-0.025 MG 1 EACH TAB PO PRN (18:33)
--- NOTE | 2024-02-02 18:50 | P.PN ---
Subjective Progress Note Date: 02/02/24 Patient is a 72-year-old male with a past medical history of coronary artery disease with stent to LAD and diagonal, hypertension, IBS, SVT status post ablation in 2011, hiatal hernia, history of ulcer presents to ER with the complaints of nausea vomiting and diarrhea for the past 2 days. Mainly watery diarrhea. No complaints of fever or chills. No complaints of abdominal pain. Denied any unusual food intake. No recent antibiotic use. Patient was recently admitted to the hospital and was discharged home on 01/26/2024. Patient was admitted to the hospital due to complaints of chest pain. Patient has been having issues with nausea and vomiting for a long time. Patient also had multiple EGDs and colonoscopies done. Patient had colonoscopy in 2020 showed normal-appearing colon from rectum to cecum with no evidence of colitis or colorectal neoplasia. Patient also has history of duodenal stricture. Also has a history of irritable bowel syndrome. CT of the abdomen pelvis on 01/25/2024 showed no acute abdominal/pelvic process. Colonic diverticulosis without evidence for acute diverticulitis. Prostatomegaly. Correlate with PSA values. Laboratory data showed WBC 10.7, hemoglobin 14.9, platelets 356 Sodium 126 potassium 3.3 chloride 98 bicarb is 22 BUN 5 and creatinine 0.70 and blood sugar 120 liver enzymes are not elevated. Lipase 96. 02/02/2024 Patient is seen in follow-up today continues to report some abdominal cramping and not feeling well with nausea. Patient denies any vomiting although not eating much. Patient is attempting to slowly eat a little more and recommend to continue with slowly advancing diet as tolerated. Patient continues to report multiple episodes of diarrhea and did send a sample which was negative for C. difficile. Will add Lomotil along with as needed Imodium and will add Questran. encouraged increase activity as tolerated. Will continue with supportive care and discussed possible discharge planning in the next 24 to 48 hours. Patient will need to tolerate more diet. Patient with weakness has been instructed to sit up in the chair more often and get up and walk more frequently. Review of systems: Constitutional: No reports of reports of fatigue, fever, or chills Cardiovascular: No reports of chest pain or palpitations Respiratory: No reports of shortness of breath or cough GI: reports of nausea, no vomiting, reports multiple episodes of diarrhea : No reports of dysuria or retention Neurovascular: reports of generalized weakness All medications have been reviewed Physical exam: Gen: This is a 73-year-old male who is awake, alert and oriented x 3, well- developed, elderly appearing, ill-appearing HEENT: Head is atraumatic, normocephalic. Pupils equal, round. Sclerae is anicteric. NECK: Supple. No JVD. No lymphadenopathy. No thyromegaly. LUNGS: diminished breath sounds bilaterally otherwise Clear to auscultation. No wheezes or rhonchi. No intercostal retractions. HEART: S1, S2 are muffled ABDOMEN: Soft. Bowel sounds are present. No masses. No tenderness. EXTREMITIES: No pedal edema. No calf tenderness. NEUROLOGICAL: Patient is awake, alert and oriented x3. Cranial nerves 2 through 12 are grossly intact. Assessment: Hypovolemic hyponatremia with sodium level 126 on admission, improving after g entle hydration and resumption of sodium chloride tabs Nausea vomiting and diarrhea likely acute gastroenteritis, C. difficile testing was negative Hypokalemia, improved after replacement Coronary arteries history of stent placement SVT with history of radiofrequency ablation Hypertension Hyperlipidemia GERD History of duodenal ulcer/chronic duodenal stricture. Chronic back pain Chronic headache IBS Anxiety GI and DVT prophylaxis with PPI and heparin subcu Plan: Patient was continued on gentle hydration and has been maintained on sodium chloride tabs and sodium is improved today at 138. Patient continues to report diarrhea and multiple loose stools, C. difficile testing was negative and will add Imodium along with Lomotil and Questran Encourage slowly advancing diet as tolerated and small frequent meals Continue with antinausea medications and will add Reglan Other home medications including Carafate have been resumed Electrolytes replaced and improved Encouraged increase activity as tolerated Patient will need outpatient follow-up with GI and he does report he follows with Dr. Subramanian outpatient Patient reports he has been following outpatient as well with Dr. Castaneda for the hyponatremia. Due to multiple complex medical issues, overall prognosis is guarded Possible discharge planning in the next 24 to 48 hours if patient is tolerating more diet and diarrhea has improved The impression and plan of care has been dictated by Ayaka Lu, Nurse Practitioner as directed. Dr. Marcelo MD I have performed a history and examination and MDM of this patient, discussed the same with the dictator, and agree with the dictator's assessment and plan as written ,documented as a scribe. Based on total visit time, I have performed more than 50% of the visit. Objective - Vital Signs Vital signs: Vital Signs Temp 98.4 F 02/02/24 12:51 Pulse 69 02/02/24 12:51 Resp 15 02/02/24 12:51 BP 159/80 02/02/24 12:51 Pulse Ox 96 02/02/24 12:51 FiO2 Intake & Output 02/01/24 02/02/24 02/02/24 18:59 06:59 18:59 Intake Total 590 Output Total 1500 520 Balance -1500 70 Weight 92.986 kg 92.986 kg Intake: Oral 590 Output: Urine 1500 520 Other: # Voids 3 - Labs CBC & Chem 7: 02/02/24 03:56 02/02/24 03:56 Labs: Abnormal Lab Results - Last 24 Hours (Table) 02/01/24 02/01/24 02/02/24 Range/Units 18:30 20:02 03:56 MPV 8.2 L (9.5-12.2) FL Immature Gran # 0.05 H (0.00-0.04) X 10*3/uL Monocytes # 1.13 H (0.20-1.00) X 10*3/uL Carbon Dioxide (21.6-31.8) mmol/L Anion Gap (4.00-12.00) mmol/L BUN (9.0-27.0) mg/dL BUN/Creatinine Ratio (12.00-20.00) Ratio Urine Osmolality 66 L (400-1100) mOsm/kg Ur Random Sodium <20 L (40-220) mmol/L 02/02/24 Range/Units 03:56 MPV (9.5-12.2) FL Immature Gran # (0.00-0.04) X 10*3/uL Monocytes # (0.20-1.00) X 10*3/uL Carbon Dioxide 20.3 L (21.6-31.8) mmol/L Anion Gap 12.70 H (4.00-12.00) mmol/L BUN 4.4 L (9.0-27.0) mg/dL BUN/Creatinine Ratio 4.89 L (12.00-20.00) Ratio Urine Osmolality (400-1100) mOsm/kg Ur Random Sodium (40-220) mmol/L
[2024-02-02] MEDS: CHOLESTYRAMINE (WITH SUGAR) 4 GM PACKET PO SCH (19:25)
[2024-02-03] MEDS: METOCLOPRAMIDE 5 MG/ML 2 ML VIAL IVP PRN (01:08)
[2024-02-03 07:56] VITALS: BP 173/86; PULSE 81; RESP 16; TEMP 97.8
[2024-02-03 08:55] LABS: ALT 11 U/L (10-49); AST 27 U/L (14-35); Albumin 3.5 g/dL (3.8-4.9); Albumin/Globulin Ratio 1.59 Ratio (1.60-3.17); Alkaline Phosphatase 99 U/L (41-126); BUN/Creat Ratio 5.67 Ratio (12.00-20.00); Blood Urea Nitrogen 5.1 mg/dL (9.0-27.0); Calcium 8.5 mg/dL (8.7-10.3); Carbon Dioxide 19.2 mmol/L (21.6-31.8); Chloride 104 mmol/L (96-109); Globulin 2.2 g/dL (1.6-3.3); Glucose 99 mg/dL (70-110); Magnesium 1.8 mg/dL (1.5-2.4); Potassium 3.7 mmol/L (3.5-5.5); Sodium 136 mmol/L (135-145); Total Bilirubin 0.3 mg/dL (0.3-1.2); Total Protein 5.7 g/dL (6.2-8.2)
[2024-02-03] MEDS: CHOLECALCIFEROL 25 MCG (1000 IU) TABLET PO SCH (09:45)
[2024-02-03] MEDS: NON FORMULARY DRUG (Tadalafil [Tadalafil] 10 MG Tablet) PO SCH (09:47)
== END 2024-02-03 14:35 | disposition home or self-care (01) | DRG 392 ==
LOC: EC 10:48 → 4SSUR 13:45 → 5NMEDONC 19:37
PROVIDERS: ADMIT Internal Medicine; ATTEND Internal Medicine
DX: K52.9 Noninfective gastroenteritis and colitis, unspecified (principal); E87.1 Hypo-osmolality and hyponatremia; I47.10 Supraventricular tachycardia, unspecified; E86.1 Hypovolemia; E87.6 Hypokalemia; I10 Essential (primary) hypertension; E78.5 Hyperlipidemia, unspecified; K21.9 Gastro-esophageal reflux disease without esophagitis; F41.9 Anxiety disorder, unspecified; G89.29 Other chronic pain; I25.10 Atherosclerotic heart disease of native coronary artery without angina pectoris; K57.30 Diverticulosis of large intestine without perforation or abscess without bleeding; K58.9 Irritable bowel syndrome, unspecified; N40.0 Benign prostatic hyperplasia without lower urinary tract symptoms; I25.2 Old myocardial infarction; Z95.5 Presence of coronary angioplasty implant and graft; Z79.899 Other long term (current) drug therapy; Z87.11 Personal history of peptic ulcer disease; Z96.1 Presence of intraocular lens; Z88.8 Allergy status to other drugs, medicaments and biological substances; Z83.3 Family history of diabetes mellitus; Z82.49 Family history of ischemic heart disease and other diseases of the circulatory system; Z80.0 Family history of malignant neoplasm of digestive organs
CPT/HCPCS: 36415; 80048; 80053; 82150; 82570; 83630; 83690; 83735; 83930; 83935; 84156; 84300; 85025; 87045; 87046; 87324; 96361; 96374; 96375; 96376; 99285

== ENCOUNTER 2024-02-15 01:23 | Observation (INO) | payer OTHER, MEDICARE ==
[2024-02-15 02:03] LABS: Basophils # (A) 0.1 k/uL (0-0.2); Basophils % (A) 1 %; Eosinophils # (A) 0.4 k/uL (0-0.7); Eosinophils % (A) 4 %; HCT 43.3 % (39.0-53.0); HGB 14.5 gm/dL (13.0-17.5); Lymphocytes # (A) 2.2 k/uL (1.0-4.8); Lymphocytes % (A) 20 %; MCH 30.3 pg (25.0-35.0); MCHC 33.5 g/dL (31.0-37.0); MCV 90.4 fL (80.0-100.0); Mean Platelet Volume 6.1; Monocytes # (A) 1.1 k/uL (0-1.0); Monocytes % (A) 10 %; Neutrophils # (A) 6.9 k/uL (1.3-7.7); Neutrophils % (A) 64 %; Platelet Count 397 k/uL (150-450); RBC 4.79 m/uL (4.30-5.90); RDW 12.6 % (11.5-15.5); WBC 10.8 k/uL (3.8-10.6)
--- NOTE | 2024-02-15 02:10 | ED ---
General Adult HPI - General Chief complaint: Nausea/Vomiting/Diarrhea Stated complaint: NVD Time Seen by Provider: 02/15/24 01:38 Source: patient, EMS Mode of arrival: wheelchair Limitations: no limitations - History of Present Illness Initial comments: Patient is a 73-year-old male past medical history hiatal hernia, CAD, prior cholecystectomy and appendectomy presenting today for abdominal pain nausea vomiting. Patient states symptoms began approximately noon yesterday afternoon. Has had multiple episodes of nonbilious emesis, patient's does know earlier did seem to have brownish color to it that she thought might be blood. Emesis now clear. Describes sharp epigastric abdominal pain that is nonradiating. Denies any alcohol or NSAID use. w/ exception of baby ASA daily.No blood thinners. States that he has had " a worsening hiatal hernia" over the last few months. Notes chills at home, no measured fevers, temp 99 at home. Attempted to take zofran however unable to keep it down long enough to improve his nausea. Movement was earlier today was small and soft in nature. No black or tarry or bloody stools. No diarrhea. Patient's granddaughter was sick with flulike symptoms recently and patient's wonders if patient also h as the flu. No antipyretics prior to arrival. Patient is up-to-date on his flu vaccine. He does endorse associated mild shortness of breath but no cough. No additional chest pain aside from epigastric pain noted above. Endorses headache without vision changes, numbness or weakness. Notes nasal congestion. No hematuria or urinary frequency. - Related Data Home Medications Medication Instructions Recorded Confirmed Acetaminophen [Tylenol 8 Hour] 650 mg PO Q4H PRN 01/25/24 02/15/24 Amitriptyline HCl [Elavil] 12.5 mg PO HS 01/25/24 02/15/24 Betamethasone Dipropionate 1 applic TOPICAL DAILY PRN 01/25/24 02/15/24 [Diprolene 0.05% Ointment] Brimonidine Tartrate/Timolol 1 drop BOTH EYES BID 01/25/24 02/15/24 [Brimonidine-Timolol 0.2%-0.5%] Butalb/Acetaminophen/Caffeine 1 cap PO Q4HR PRN 01/25/24 02/15/24 [Fioricet 50-300-40 mg Capsule] Cholecalciferol [Vitamin D3 (25 25 mcg PO DAILY 01/25/24 02/15/24 Mcg = 1000 Iu)] Clindamycin Gel [Cleocin T 1% Gel] 1 applic TOPICAL BID PRN 01/25/24 02/15/24 Clobetasol Propionate/Emoll 1 applic TOPICAL BID PRN 01/25/24 02/15/24 [Clobetasol Emulsion 0.05% Foam] Diclofenac Sodium Gel [Voltaren 1% 2 gm TOPICAL QID PRN 01/25/24 02/15/24 Gel] Dicyclomine [Bentyl] 10 mg PO TID 01/25/24 02/15/24 Escitalopram [Lexapro] 10 mg PO DAILY 01/25/24 02/15/24 Furosemide [Lasix] 20 mg PO DAILY 01/25/24 02/15/24 Gabapentin [Neurontin] 800 mg PO TID 01/25/24 02/15/24 Ketoconazole 2% Shampoo [Nizoral] 1 applic TOPICAL DAILY PRN 01/25/24 02/15/24 Lidocaine 5% Patch [Lidoderm 5% 1 patch TOPICAL DAILY PRN 01/25/24 02/15/24 Patch] Losartan [Cozaar] 50 mg PO DAILY 01/25/24 02/15/24 Metoprolol Tartrate [Lopressor] 25 mg PO BID 01/25/24 02/15/24 Montelukast [Singulair] 10 mg PO HS 01/25/24 02/15/24 Nystatin/Triamcin 1 applic TOPICAL BID PRN 01/25/24 02/15/24 [Nystatin-Triamcinolone Cream] Ondansetron Odt [Zofran ODT] 4 mg PO Q4H PRN 01/25/24 02/15/24 Pantoprazole [Protonix] 40 mg PO BID 01/25/24 02/15/24 Potassium Chloride 20 meq PO DAILY PRN 01/25/24 02/15/24 Simvastatin [Zocor] 40 mg PO HS 01/25/24 02/15/24 Sodium Chloride Tab 1 gm PO BID 01/25/24 02/15/24 Sucralfate [Carafate] 1 gm PO ACHS 01/25/24 02/15/24 Testosterone Cypionate 50 mg IM Q14D 01/25/24 02/15/24 [Depo-Testosterone] diazePAM [Valium] 5 mg PO HS PRN 01/25/24 02/15/24 tadalafiL 10 mg PO DAILY 01/25/24 02/15/24 Previous Rx's Medication Instructions Recorded Cholestyramine (with Sugar) 4 gm PO BID@1000,1800 PRN #30 02/03/24 [Questran Packet] packet Loperamide [Imodium] 2 mg PO QID PRN #30 cap 02/03/24 Metoclopramide [Reglan] 5 mg PO TID PRN #20 tab 02/03/24 Calcium Carbonate [Tums] 1,000 mg PO Q4HR PRN #0 tab 02/16/24 Nystatin 100,000 Unit/ml Susp 500,000 unit PO QID #156 ml 02/16/24 [Mycostatin Oral Susp] Allergies Allergy/AdvReac Type Severity Reaction Status Date / Time atorvastatin [From Lipitor] AdvReac MUSCLE Verified 02/15/24 07:49 CRAMPS hydrochlorothiazide AdvReac SEE COMMENT Verified 02/15/24 07:49 ropinirole [From Requip] AdvReac Hallucinati Verified 02/15/24 07:49 ons scopolamine AdvReac Hallucinati Verified 02/15/24 07:49 ons Review of Systems ROS Statement: Those systems with pertinent positive or pertinent negative responses have been documented in the HPI. ROS Other: All systems not noted in ROS Statement are negative. Constitutional: Denies: fever Past Medical History Past Medical History: Coronary Artery Disease (CAD), Chest Pain / Angina, Eye Disorder, GERD/Reflux, Hyperlipidemia, Hypertension, Myocardial Infarction (PR), Osteoarthritis (OA) Additional Past Medical History / Comment(s): recent admission for nausea/vomiting/diarrhea, Neck pain, SVT with ablation, duodenal ulcers, chronic duodenal stricture, bilateral glaucoma, sinusitis, migraines, anemia, esophagitis,hiatal hernia, chronic back pain, past fx ribs/sternum Last Myocardial Infarction Date:: 1999 History of Any Multi-Drug Resistant Organisms: None Reported Past Surgical History: Cardiac Ablation, Cholecystectomy, Heart Catheterization With Stent Additional Past Surgical History / Comment(s): stent bilateral eyes 03/2018, PCI with 3 stents, sinus surgery, cataracts bilaterally with lens implants, EGDs/colonoscopies, Past Anesthesia/Blood Transfusion Reactions: No Reported Reaction Additional Past Anesthesia/Blood Transfusion Reaction / Comment(s): Pt has had past multiple transfusions without reaction. Date of Last Stent Placement:: 1999 Past Psychological History: Anxiety Smoking Status: Never smoker Past Alcohol Use History: None Reported Past Drug Use History: None Reported - Past Family History Father Additional Family Medical History / Comment(s): Father at the age of 68yrs from a ruptured aortic aneurysm. Mother Additional Family Medical History / Comment(s): Mother lived into her 80's. Brother(s) Family Medical History: Cancer Additional Family Medical History / Comment(s): The patient had 3 brothers. One from colon cancer with metastatic disease to the brain. One brother at age 79 from a myocardial infarction. He has 1 brother that is alive with history of skin cancer and diabetes. Sister(s) Additional Family Medical History / Comment(s): The patient is a total of 3 sisters. One in her 80s from myocardial infarction. One sister at age 58 from coronary artery disease and also had a valvular disorder. Patient has one sister alive with diabetes and multiple other medical conditions. Patient has 2 sons and 1 daughter with no major medical problems. General Exam - General Exam Comments Initial Comments: PE: CONSTITUTIONAL: Mild distress secondary to nausea, vomiting and pain, ill- appearing nontoxic awake and alert SKIN: Warm, dry, no jaundice, hives or petechiae EYES: Pupils are equally round, extraocular movements intact without nystagmus, clear conjunctiva, non-icteric sclera HENT: Normocephalic, atraumatic, dry mucus membranes, oropharynx clear without exudates NECK: , Full range of motion, normal appearance PULMONARY: Clear to auscultation without wheezes, rhonchi, or rales, normal excu rsion, no accessory muscle use and no stridor CARDIOVASCULAR: Tachycardia, regular rhythm normal S1 and S2. No appreciated murmurs, rubs or gallops. Strong radial pulses with intact distal perfusion. No lower extremity edema GASTROINTESTINAL: Soft, active bowel sounds throughout, Mild TTP RLQ, negative mcgregor's sign, non-distended, no palpable masses, no rebound No hepatosplenomegaly, no CVA TTP GENITOURINARY: MUSCULOSKELETAL: Extremities have no gross deformity, no edema, redness, or swelling. NEUROLOGIC:_a/o x 3, GCS 15, normal mentation and speech. Moves all extremities x 4 without motor or sensory deficit PSYCHIATRIC:_normal mood and affect, thought process is clear and linear Limitations: no limitations Course Vital Signs 02/15/24 02/15/24 02/15/24 01:24 03:33 04:57 Temperature 100.1 F H 98.2 F Pulse Rate 118 H 105 H 98 Pulse Rate [ Pulse Oximetery ] Respiratory 18 20 18 Rate Blood Pressure 155/86 174/85 159/78 Blood Pressure [Left Arm] O2 Sat by Pulse 95 96 95 Oximetry 02/15/24 02/15/24 02/15/24 12:32 21:02 22:03 Temperature 98.3 F 98.1 F Pulse Rate 87 73 75 Pulse Rate [ Pulse Oximetery ] Respiratory 18 18 18 Rate Blood Pressure 161/77 96/57 161/83 Blood Pressure [Left Arm] O2 Sat by Pulse 92 L 97 96 Oximetry 02/15/24 22:33 Temperature 98.2 F Pulse Rate Pulse Rate [ 71 Pulse Oximetery ] Respiratory 18 Rate Blood Pressure Blood Pressure 164/83 [Left Arm] O2 Sat by Pulse 96 Oximetry EKG Findings - EKG Comments: EKG Findings:: Sinus tachycardia, rate 105 bpm, [place] interval 148 ms, QRS duration 74 ms, QT/QTc 318/379 ms, axis deviation, no ST elevations or depressions, no arrhythmia, Compared to EKG performed on 01/26/2024, no significant changes from prior, no new ST elevations or depressions Medical Decision Making - Medical Decision Making Was pt. sent in by a medical professional or institution (, PA, FARM EQUIPMENT SERVICE TECHNICIAN, urgent care, hospital, or usp...) When possible be specific @ -No Did you speak to anyone other than the patient for history (EMS, parent, family, police, friend...)? What history was obtained from this source @ -No Did you review nursing and triage notes (agree or disagree)? Why? @ -I reviewed and agree with nursing and triage notes Were old charts reviewed (outside hosp., previous admission, EMS record, old EKG, old radiological studies, urgent care reports/EKG's, usp records)? Report findings Medical records reviewed- Patient admitted on 01/31/2022 for after presenting for nausea vomiting and diarrhea with resultant hyponatremia. Was negative. CT abdomen pelvis performed on 01/25/2024 for nausea and vomiting showed no acute intra-abdominal process Differential Diagnosis (chest pain, altered mental status, abdominal pain women, abdominal pain men, vaginal bleeding, weakness, fever, dyspnea, syncope, headache, dizziness, GI bleed, back pain, seizure, CVA, palpatations, mental health, musculoskeletal)? Differential Abdominal Pain Men: Appendicitis, cholecystitis, diverticulosis, ischemic bowel, pancreatitis, hepatitis, UTI, gastroenteritis, AAA, incarcerated hernia, bowel obstruction, constipation, inflammatory bowel, hepatitis, peptic ulcer disease, splenic infarction, perforated viscus, testicular torsion, this is not meant to be an all-inclusive list EKG interpreted by me (3pts min.). @ -As above X-rays interpreted by me (1pt min.). @ -None done CT interpreted by me (1pt min.). @No evidence of appendicitis, free air or obstruction, left renal cyst noted U/S interpreted by me (1pt. min.). @ -None done What testing was considered but not performed or refused? (CT, X-rays, U/S, l abs)? Why? @ -None What meds were considered but not given or refused? Why? @ -None Did you discuss the management of the patient with other professionals (professionals i.e. , PA, FARM EQUIPMENT SERVICE TECHNICIAN, lab, RT, psych nurse, social studies department chair, change manager, teacher, low altitude air defense officer, bilingual patient support caseworker)? Give summary @ -No Was smoking cessation discussed for >3mins.? @ -No Was critical care preformed (if so, how long)? @ -No Were there social determinants of health that impacted care today? How? (Homelessness, low income, unemployed, alcoholism, drug addiction, transportation, low edu. Level, literacy, decrease access to med. care, retirement, rehab)? @ -No Was there de-escalation of care discussed even if they declined (Discuss DNR or withdrawal of care, Hospice)? @ -No What co-morbidities impacted this encounter? (DM, HTN, Smoking, COPD, CAD, Cancer, CVA, ARF, Chemo, Hep., AIDS, mental health diagnosis, sleep apnea, morbid obesity)? CAD, hiatal hernia, Was patient admitted / discharged? Hospital course, mention meds given and route, prescriptions, significant lab abnormalities, going to OR and other pertinent info. @ Admission- This is a 73-year-old gentleman past medical hx CAD, hiatal hernia, GERD presenting today for epigastric pain, nausea and vomiting, x 1 day. Temperature 100.1 degrees here, heart rate 118 arrival, blood pressure within acceptable limits. Pt initally seen and examined in waiting room 2/2 bed shortage throughout the ED. He was agreeable w/ initial assessment taking place in the waiting room. Will obtain lipase, amylase, CMP, CBC, lactic, single blood culture due to blood culture shortage, urinalysis, troponin, PT, PTT, CT chest abdomen pelvis with contrast due to history of hiatal hernia to assess for obstruction, additionally pain control with morphine, Pepcid, Protonix, due to t achycardia and borderline fever, though patient does not yet meet SIRS criteria, since temperature not above 38 C, will give dose of cefepime and Flagyl ordered to cover for intra-abdominal infectious process. CT chest abdomen pelvis showed esophagitis. Lactic slightly elevated at 2.1. A full 30 cc/kg bolus was not given as patient has been normotensive and not in septic shock. On reassessment patient continued to endorse nausea and pain with only slight improvement from morphine. Administered additional Zofran and Dilaudid. On repeat assessment patient is in pain and pain is improving though he does still remain nauseous. Plan for admission for esophagitis. Additional Dilaudid, Reglan and Benadryl ordered. Rectal exam performed with Federico, PCT, as straw hat brim cutter operator, did not show on any active bleeding or melena. Hemoccult testing negative. Case discussed with Dr. Robertson, kindly accepts for admission. Consult to Dr. Moris king. Undiagnosed new problem with uncertain prognosis? @ -No Drug Therapy requiring intensive monitoring for toxicity (Heparin, Nitro, Insulin, Cardizem)? @ -No Were any procedures done? @ -No Diagnosis/symptom? @ -Esophagitis Acute, or Chronic, or Acute on Chronic? @acute Uncomplicated (without systemic symptoms) or Complicated (systemic symptoms)? @ complicated Side effects of treatment? @ -No Exacerbation, Progression, or Severe Exacerbation? @ -No Poses a threat to life or bodily function? How? (Chest pain, USA, PR, pneumonia, PE, COPD, DKA, ARF, appy, cholecystitis, CVA, Diverticulitis, Homicidal, Suicidal, threat to staff... and all critical care pts) @ Yes, if left unaddressed could progress to dehydration and hypovolemia - Lab Data Result diagrams: 02/15/24 01:30 02/17/24 06:07 Lab Results 02/15/24 02/15/24 02/15/24 Range/Units 01:30 01:30 01:30 WBC 10.8 H (3.8-10.6) k/uL RBC 4.79 (4.30-5.90) m/uL Hgb 14.5 (13.0-17.5) gm/dL Hct 43.3 (39.0-53.0) % MCV 90.4 (80.0-100.0) fL MCH 30.3 (25.0-35.0) pg MCHC 33.5 (31.0-37.0) g/dL RDW 12.6 (11.5-15.5) % Plt Count 397 (150-450) k/uL MPV 6.1 Neutrophils % 64 % Lymphocytes % 20 % Monocytes % 10 % Eosinophils % 4 % Basophils % 1 % Neutrophils # 6.9 (1.3-7.7) k/uL Lymphocytes # 2.2 (1.0-4.8) k/uL Monocytes # 1.1 H (0-1.0) k/uL Eosinophils # 0.4 (0-0.7) k/uL Basophils # 0.1 (0-0.2) k/uL PT (10.0-12.5) sec INR (<1.2) APTT (22.0-30.0) sec Sodium 132 L (137-145) mmol/L Potassium 3.5 (3.5-5.1) mmol/L Chloride 100 (98-107) mmol/L Carbon Dioxide 20 L (22-30) mmol/L Anion Gap 12 mmol/L BUN 4 L (9-20) mg/dL Creatinine 0.75 (0.66-1.25) mg/dL Est GFR (CKD-EPI)AfAm >90 (>60 ml/min/1.73 sqM) Est GFR (CKD-EPI)NonAf 90 (>60 ml/min/1.73 sqM) Glucose 143 H (74-99) mg/dL Lactic Ac Sepsis Rflx Plasma Lactic Acid Ney 2.1 H* (0.7-2.0) mmol/L Calcium 9.4 (8.4-10.2) mg/dL Total Bilirubin 0.6 (0.2-1.3) mg/dL AST 20 (17-59) U/L ALT 12 (4-49) U/L Alkaline Phosphatase 106 (38-126) U/L Troponin I (0.000-0.034) ng/mL Total Protein 7.1 (6.3-8.2) g/dL Albumin 4.4 (3.5-5.0) g/dL Amylase 57 (30-110) U/L Lipase 130 (23-300) U/L Urine Color Urine Appearance (Clear) Urine pH (5.0-8.0) Ur Specific [place] (1.001-1.035) Urine Protein (Negative) Urine Glucose (UA) (Negative) Urine Ketones (Negative) Urine Blood (Negative) Urine Nitrite (Negative) Urine Bilirubin (Negative) Urine Urobilinogen (<2.0) mg/dL Ur Leukocyte Esterase (Negative) Stool Occult Blood (Negative) Blood Type Blood Type Confirm Blood Type Recheck Bld Type Recheck Status Antibody Screen Spec Expiration Date 02/15/24 02/15/24 02/15/24 Range/Units 02:06 02:06 02:16 WBC (3.8-10.6) k/uL RBC (4.30-5.90) m/uL Hgb (13.0-17.5) gm/dL Hct (39.0-53.0) % MCV (80.0-100.0) fL MCH (25.0-35.0) pg MCHC (31.0-37.0) g/dL RDW (11.5-15.5) % Plt Count (150-450) k/uL MPV Neutrophils % % Lymphocytes % % Monocytes % % Eosinophils % % Basophils % % Neutrophils # (1.3-7.7) k/uL Lymphocytes # (1.0-4.8) k/uL Monocytes # (0-1.0) k/uL Eosinophils # (0-0.7) k/uL Basophils # (0-0.2) k/uL PT 10.7 (10.0-12.5) sec INR 1.0 (<1.2) APTT 21.4 L (22.0-30.0) sec Sodium (137-145) mmol/L Potassium (3.5-5.1) mmol/L Chloride (98-107) mmol/L Carbon Dioxide (22-30) mmol/L Anion Gap mmol/L BUN (9-20) mg/dL Creatinine (0.66-1.25) mg/dL Est GFR (CKD-EPI)AfAm (>60 ml/min/1.73 sqM) Est GFR (CKD-EPI)NonAf (>60 ml/min/1.73 sqM) Glucose (74-99) mg/dL Lactic Ac Sepsis Rflx Plasma Lactic Acid Ney (0.7-2.0) mmol/L Calcium (8.4-10.2) mg/dL Total Bilirubin (0.2-1.3) mg/dL AST (17-59) U/L ALT (4-49) U/L Alkaline Phosphatase (38-126) U/L Troponin I 0.016 (0.000-0.034) ng/mL Total Protein (6.3-8.2) g/dL Albumin (3.5-5.0) g/dL Amylase (30-110) U/L Lipase (23-300) U/L Urine Color Urine Appearance (Clear) Urine pH (5.0-8.0) Ur Specific [place] (1.001-1.035) Urine Protein (Negative) Urine Glucose (UA) (Negative) Urine Ketones (Negative) Urine Blood (Negative) Urine Nitrite (Negative) Urine Bilirubin (Negative) Urine Urobilinogen (<2.0) mg/dL Ur Leukocyte Esterase (Negative) Stool Occult Blood (Negative) Blood Type B Positive Blood Type Confirm Blood Type Recheck No Previous Record Bld Type Recheck Status CABO Indicated Antibody Screen NEGATIVE Spec Expiration Date 02/18/2024 - 231502/15/24 02/15/24 02/15/24 Range/Units 02:19 03:12 03:31 WBC (3.8-10.6) k/uL RBC (4.30-5.90) m/uL Hgb (13.0-17.5) gm/dL Hct (39.0-53.0) % MCV (80.0-100.0) fL MCH (25.0-35.0) pg MCHC (31.0-37.0) g/dL RDW (11.5-15.5) % Plt Count (150-450) k/uL MPV Neutrophils % % Lymphocytes % % Monocytes % % Eosinophils % % Basophils % % Neutrophils # (1.3-7.7) k/uL Lymphocytes # (1.0-4.8) k/uL Monocytes # (0-1.0) k/uL Eosinophils # (0-0.7) k/uL Basophils # (0-0.2) k/uL PT (10.0-12.5) sec INR (<1.2) APTT (22.0-30.0) sec Sodium (137-145) mmol/L Potassium (3.5-5.1) mmol/L Chloride (98-107) mmol/L Carbon Dioxide (22-30) mmol/L Anion Gap mmol/L BUN (9-20) mg/dL Creatinine (0.66-1.25) mg/dL Est GFR (CKD-EPI)AfAm (>60 ml/min/1.73 sqM) Est GFR (CKD-EPI)NonAf (>60 ml/min/1.73 sqM) Glucose (74-99) mg/dL Lactic Ac Sepsis Rflx Y Plasma Lactic Acid Ney (0.7-2.0) mmol/L Calcium (8.4-10.2) mg/dL Total Bilirubin (0.2-1.3) mg/dL AST (17-59) U/L ALT (4-49) U/L Alkaline Phosphatase (38-126) U/L Troponin I (0.000-0.034) ng/mL Total Protein (6.3-8.2) g/dL Albumin (3.5-5.0) g/dL Amylase (30-110) U/L Lipase (23-300) U/L Urine Color Dark Yellow Urine Appearance Clear (Clear) Urine pH 7.5 (5.0-8.0) Ur Specific [place] 1.021 (1.001-1.035) Urine Protein Trace H (Negative) Urine Glucose (UA) Negative (Negative) Urine Ketones 2+ H (Negative) Urine Blood Negative (Negative) Urine Nitrite Negative (Negative) Urine Bilirubin Negative (Negative) Urine Urobilinogen <2.0 (<2.0) mg/dL Ur Leukocyte Esterase Negative (Negative) Stool Occult Blood (Negative) Blood Type Blood Type Confirm B Positive Blood Type Recheck Bld Type Recheck Status Antibody Screen Spec Expiration Date 02/15/24 02/15/24 02/15/24 Range/Units 05:03 06:11 06:22 WBC (3.8-10.6) k/uL RBC (4.30-5.90) m/uL Hgb (13.0-17.5) gm/dL Hct (39.0-53.0) % MCV (80.0-100.0) fL MCH (25.0-35.0) pg MCHC (31.0-37.0) g/dL RDW (11.5-15.5) % Plt Count (150-450) k/uL MPV Neutrophils % % Lymphocytes % % Monocytes % % Eosinophils % % Basophils % % Neutrophils # (1.3-7.7) k/uL Lymphocytes # (1.0-4.8) k/uL Monocytes # (0-1.0) k/uL Eosinophils # (0-0.7) k/uL Basophils # (0-0.2) k/uL PT (10.0-12.5) sec INR (<1.2) APTT (22.0-30.0) sec Sodium (137-145) mmol/L Potassium (3.5-5.1) mmol/L Chloride (98-107) mmol/L Carbon Dioxide (22-30) mmol/L Anion Gap mmol/L BUN (9-20) mg/dL Creatinine (0.66-1.25) mg/dL Est GFR (CKD-EPI)AfAm (>60 ml/min/1.73 sqM) Est GFR (CKD-EPI)NonAf (>60 ml/min/1.73 sqM) Glucose (74-99) mg/dL Lactic Ac Sepsis Rflx Plasma Lactic Acid Ney 1.5 (0.7-2.0) mmol/L Calcium (8.4-10.2) mg/dL Total Bilirubin (0.2-1.3) mg/dL AST (17-59) U/L ALT (4-49) U/L Alkaline Phosphatase (38-126) U/L Troponin I 0.023 (0.000-0.034) ng/mL Total Protein (6.3-8.2) g/dL Albumin (3.5-5.0) g/dL Amylase (30-110) U/L Lipase (23-300) U/L Urine Color Urine Appearance (Clear) Urine pH (5.0-8.0) Ur Specific [place] (1.001-1.035) Urine Protein (Negative) Urine Glucose (UA) (Negative) Urine Ketones (Negative) Urine Blood (Negative) Urine Nitrite (Negative) Urine Bilirubin (Negative) Urine Urobilinogen (<2.0) mg/dL Ur Leukocyte Esterase (Negative) Stool Occult Blood Negative (Negative) Blood Type Blood Type Confirm Blood Type Recheck Bld Type Recheck Status Antibody Screen Spec Expiration Date Disposition Clinical Impression: Esophagitis Disposition: ADMITTED IP TO THIS [facility] Condition: Good
[2024-02-15 02:13] LABS: ALT 12 U/L (4-49); AST 20 U/L (17-59); African American GFR (CKD) >90 (>60 ml/min/1.73 sqM); Albumin 4.4 g/dL (3.5-5.0); Alkaline Phosphatase 106 U/L (38-126); Amylase 57 U/L (30-110); Anion Gap 12 mmol/L; Blood Urea Nitrogen 4 mg/dL (9-20); Calcium 9.4 mg/dL (8.4-10.2); Carbon Dioxide 20 mmol/L (22-30); Chloride 100 mmol/L (98-107); Glucose 143 mg/dL (74-99); Lipase 130 U/L (23-300); Non-African American GFR(CKD) 90 (>60 ml/min/1.73 sqM); Potassium 3.5 mmol/L (3.5-5.1); Sodium 132 mmol/L (137-145); Total Bilirubin 0.6 mg/dL (0.2-1.3); Total Protein 7.1 g/dL (6.3-8.2)
[2024-02-15] MEDS: ONDANSETRON 4 MG/2 ML VIAL IVP STA ×2 (02:32→03:51)
[2024-02-15] MEDS: MORPHINE SULFATE 4 MG/ML SYRINGE IVP STA (02:33)
[2024-02-15] MEDS: FAMOTIDINE 20 MG/2 ML VIAL IV STA (02:35)
[2024-02-15] MEDS: PANTOPRAZOLE 40 MG/10 ML VIAL IVP STA (02:36)
[2024-02-15] MEDS: ACETAMINOPHEN IV (For NPO) 1,000 MG in EMPTY BAG 1 BAG IVPB STA (02:40)
[2024-02-15] MEDS: CEFEPIME 2 GM in SODIUM CHLORIDE 0.9% 100 ML IVPB STA (02:41)
[2024-02-15] MEDS: SODIUM CHLORIDE 0.9% 1,000 ML IV STA (02:43)
[2024-02-15] MEDS: metroNIDAZOLE-NS PMX 500 MG in SALINE 1 100ML.BAG IVPB STA (02:46)
[2024-02-15 03:03] LABS: Partial Thromboplastin Time 21.4 sec (22.0-30.0); Prothrombin Time 10.7 sec (10.0-12.5)
--- NOTE | 2024-02-15 03:28 | CT ---
EXAMINATION TYPE: CT ChestAbdPelvis w con DATE OF EXAM: 02/15/2024 COMPARISON: Prior CT abdomen and pelvis January 25, 2024 HISTORY: N/V epigastric pain, hx hiatal hernia CT DLP: 1152 mGycm. Automated Exposure Control for Dose Reduction was Utilized. CONTRAST: CT scan of the thorax, abdomen and pelvis is performed with IV Contrast, patient injected with 100 mL of Isovue 300. FINDINGS: LUNGS: The lungs are grossly clear, there is no concerning parenchymal mass or focal consolidation is identified. There is no pleural effusion or pneumothorax seen. The tracheobronchial tree is paten t. MEDIASTINUM: There are no greater than 1 cm hilar or mediastinal lymph nodes. No cardiomegaly or pe ricardial effusion is seen. Coronary artery calcification and/or stents in the LAD distribution is n oted. Moderate wall thickening in the distal esophagus with small size hiatal hernia. Adjacent subcen timeter lymph node image 47 is redemonstrated. OTHER: Bilateral subareolar gynecomastia. LIVER/GB: Cholecystectomy clips are redemonstrated. PANCREAS: No significant abnormality is seen. SPLEEN: No significant abnormality is seen. ADRENALS: No significant abnormality is seen. KIDNEYS: A few simple cortical cysts scattered throughout both kidneys are redemonstrated. BOWEL: No abnormal small or large bowel dilatation. GENITAL ORGANS: Enlarged prostate consistent with BPH. LYMPH NODES: No greater than 1cm abdominal or pelvic lymph nodes are appreciated. OSSEOUS STRUCTURES: Slight scoliotic curvature. Multilevel spondylolisthesis and disc space narrowing with endplate sclerosis at L3-L4 and L4-L5 levels. OTHER: No significant additional abnormality is seen. IMPRESSION: Small sized hiatal hernia. There is new wall thickening of the distal esophagus suspiciou s for inflammation or esophagitis. Correlate clinically. If symptoms do not resolve consider further investigation with direct visualization to exclude malignancy. No bowel obstruction. [facility], , 02/15/2024 3:26 AM
[2024-02-15 03:47] LABS: Appearance,Urine Clear (Clear); Bilirubin,Urine Negative (Negative); Blood,Urine Negative (Negative); Color,Urine Dark Yellow; Glucose,Urine (UA) Negative (Negative); Ketones,Urine 2+ (Negative); Leukocyte Esterase,Urine Negative (Negative); Nitrite,Urine Negative (Negative); PH, Urine 7.5 (5.0-8.0); Protein,Urine Trace (Negative); Specific Gravity,Urine 1.021 (1.001-1.035); Urobilinogen,Urine <2.0 mg/dL (<2.0)
[2024-02-15] MEDS: HYDROmorphone 1 MG/ML 1 ML SYRINGE IVP STA (03:51)
[2024-02-15] MEDS ORDERED: NALOXONE 0.4 MG/ML 1 ML VIAL IV PRN (08:16)
[2024-02-15] MEDS ORDERED: CALCIUM CARBONATE 500 MG CHEWABLE PO PRN (08:16)
[2024-02-15] MEDS ORDERED: HYDROmorphone 0.5 MG/0.5 ML SYRINGE IVP PRN (08:16)
[2024-02-15] MEDS ORDERED: ACETAMINOPHEN TAB 325 MG TAB PO PRN (08:16)
[2024-02-15] MEDS: MAG HYDROX/AL HYDROX/SIMETH 30 ML CUP PO PRN (08:43)
[2024-02-15] MEDS: FAMOTIDINE 20 MG TAB PO SCH (08:43)
[2024-02-15] MEDS: diphenhydrAMINE 50 MG/ML 1 ML VIAL IVP STA (08:44)
[2024-02-15] MEDS: HYDROmorphone 1 MG/ML 1 ML SYRINGE IVP PRN (08:44)
[2024-02-15] MEDS: METOCLOPRAMIDE 5 MG/ML 2 ML VIAL IVP STA (08:45)
[2024-02-15] MEDS: DEXTROSE 5%-0.45% NACL 1,000 ML IV SCH (08:47)
[2024-02-15] MEDS ORDERED: NON FORMULARY DRUG (Clindamycin Gel 1 APPLIC Gel) TOPICAL PRN (12:20)
[2024-02-15] MEDS ORDERED: LIDOCAINE 4% PATCH TOPICAL PRN (12:20)
[2024-02-15] MEDS ORDERED: BETAMETHASONE DIPROPIONATE 0.05% OINTMENT 45 GM TUBE TOPICAL PRN (12:20)
[2024-02-15] MEDS ORDERED: DICLOFENAC SODIUM GEL 50 GM TUBE TOPICAL PRN (12:20)
[2024-02-15] MEDS ORDERED: CLOBETASOL PROP 0.05% CR 15GM TOPICAL PRN (12:20)
[2024-02-15] MEDS ORDERED: diazePAM 5 MG TAB PO PRN (12:20)
[2024-02-15] MEDS: SODIUM CHLORIDE 0.9% 1,000 ML IV SCH (12:28)
--- NOTE | 2024-02-15 12:30 | P.HPIM ---
History of Present Illness 72-year-old pleasant male came in because of gastric burning sensation patient does have history of hiatal hernia patient was having nausea vomiting multiple episodes of nonbloody nonbilious vomiting. Patient also has oral thrush. Patient does complain of some dysphagia and odynophagia as well. Patient denied any hematemesis melena or hematochezia. REVIEW OF SYSTEMS: All other systems are negative except those mentioned in the HPI PHYSICAL EXAMINATION: GENERAL: The patient is alert and oriented x3, not in any acute distress. Well developed, well nourished. HEENT: Pupils are round and equally reacting to light. EOMI. No scleral icterus. No conjunctival pallor. Normocephalic, atraumatic. No pharyngeal erythema. No thyromegaly. CARDIOVASCULAR: S1 and S2 present. No murmurs, rubs, or gallops. PULMONARY: Chest is clear to auscultation, no wheezing or crackles. ABDOMEN: Soft, nontender, nondistended, normoactive bowel sounds. No palpable organomegaly. MUSCULOSKELETAL: No joint swelling or deformity. EXTREMITIES: No cyanosis, clubbing, or pedal edema. NEUROLOGICAL: Gross neurological examination did not reveal any focal deficits. SKIN: No rashes. Assessment and plan Esophagitis although I cannot rule out fungal esophagitis patient does have oral thrush patient will be on Protonix, ordered nystatin swish and swallow will also order Maalox. Gastroenterology was consulted from ER gastroenterology already evaluated the patient -Coronary artery disease-depression -Hyperlipidemia -Hypertension with stents in the past -Depression: Resumed on his SSRI Problem mentioned chronic medical problems patient appropriate home medications patient will be monitored overnight will advance her diet as tolerated endoscopy as per gastroenterology DVT prophylaxis:-Ambulation Past Medical History Past Medical History: Coronary Artery Disease (CAD), Chest Pain / Angina, Eye Disorder, GERD/Reflux, Hyperlipidemia, Hypertension, Myocardial Infarction ([place]), Osteoarthritis (OA) Additional Past Medical History / Comment(s): recent admission for nausea/vomiting/diarrhea, Neck pain, SVT with ablation, duodenal ulcers, chronic duodenal stricture, bilateral glaucoma, sinusitis, migraines, anemia, esophagitis,hiatal hernia, chronic back pain, past fx ribs/sternum Last Myocardial Infarction Date:: 1999 History of Any Multi-Drug Resistant Organisms: None Reported Past Surgical History: Cardiac Ablation, Cholecystectomy, Heart Catheterization With Stent Additional Past Surgical History / Comment(s): stent bilateral eyes 03/2018, PCI with 3 stents, sinus surgery, cataracts bilaterally with lens implants, EGDs/colonoscopies, Past Anesthesia/Blood Transfusion Reactions: No Reported Reaction Additional Past Anesthesia/Blood Transfusion Reaction / Comment(s): Pt has had past multiple transfusions without reaction. Date of Last Stent Placement:: 1999 Past Psychological History: Anxiety Smoking Status: Never smoker Past Alcohol Use History: None Reported Past Drug Use History: None Reported - Past Family History Father Additional Family Medical History / Comment(s): Father at the age of 68yrs from a ruptured aortic aneurysm. Mother Additional Family Medical History / Comment(s): Mother lived into her 80's. Brother(s) Family Medical History: Cancer Additional Family Medical History / Comment(s): The patient had 3 brothers. One from colon cancer with metastatic disease to the brain. One brother at age 79 from a myocardial infarction. He has 1 brother that is alive with history of skin cancer and diabetes. Sister(s) Additional Family Medical History / Comment(s): The patient is a total of 3 sisters. One in her 80s from myocardial infarction. One sister at age 58 from coronary artery disease and also had a valvular disorder. Patient has one sister alive with diabetes and multiple other medical conditions. Patient has 2 sons and 1 daughter with no major medical problems. Medications and Allergies Home Medications Medication Instructions Recorded Confirmed Type Acetaminophen [Tylenol 8 Hour] 650 mg PO Q4H PRN 01/25/24 02/15/24 History Amitriptyline HCl [Elavil] 12.5 mg PO HS 01/25/24 02/15/24 History Betamethasone Dipropionate 1 applic TOPICAL DAILY PRN 01/25/24 02/15/24 History [Diprolene 0.05% Ointment] Brimonidine Tartrate/Timolol 1 drop BOTH EYES BID 01/25/24 02/15/24 History [Brimonidine-Timolol 0.2%-0.5%] Butalb/Acetaminophen/Caffeine 1 cap PO Q4HR PRN 01/25/24 02/15/24 History [Fioricet 50-300-40 mg Capsule] Cholecalciferol [Vitamin D3 (25 25 mcg PO DAILY 01/25/24 02/15/24 History Mcg = 1000 Iu)] Clindamycin Gel [Cleocin T 1% Gel] 1 applic TOPICAL BID PRN 01/25/24 02/15/24 History Clobetasol Propionate/Emoll 1 applic TOPICAL BID PRN 01/25/24 02/15/24 History [Clobetasol Emulsion 0.05% Foam] Diclofenac Sodium Gel [Voltaren 1% 2 gm TOPICAL QID PRN 01/25/24 02/15/24 History Gel] Dicyclomine [Bentyl] 10 mg PO TID 01/25/24 02/15/24 History Escitalopram [Lexapro] 10 mg PO DAILY 01/25/24 02/15/24 History Furosemide [Lasix] 20 mg PO DAILY 01/25/24 02/15/24 History Gabapentin [Neurontin] 800 mg PO TID 01/25/24 02/15/24 History Ketoconazole 2% Shampoo [Nizoral] 1 applic TOPICAL DAILY PRN 01/25/24 02/15/24 History Lidocaine 5% Patch [Lidoderm 5% 1 patch TOPICAL DAILY PRN 01/25/24 02/15/24 History Patch] Losartan [Cozaar] 50 mg PO DAILY 01/25/24 02/15/24 History Metoprolol Tartrate [Lopressor] 25 mg PO BID 01/25/24 02/15/24 History Montelukast [Singulair] 10 mg PO HS 01/25/24 02/15/24 History Nystatin/Triamcin 1 applic TOPICAL BID PRN 01/25/24 02/15/24 History [Nystatin-Triamcinolone Cream] Ondansetron Odt [Zofran ODT] 4 mg PO Q4H PRN 01/25/24 02/15/24 History Pantoprazole [Protonix] 40 mg PO BID 01/25/24 02/15/24 History Potassium Chloride 20 meq PO DAILY PRN 01/25/24 02/15/24 History Simvastatin [Zocor] 40 mg PO HS 01/25/24 02/15/24 History Sodium Chloride Tab 1 gm PO BID 01/25/24 02/15/24 History Sucralfate [Carafate] 1 gm PO ACHS 01/25/24 02/15/24 History Testosterone Cypionate 50 mg IM Q14D 01/25/24 02/15/24 History [Depo-Testosterone] diazePAM [Valium] 5 mg PO HS PRN 01/25/24 02/15/24 History tadalafiL 10 mg PO DAILY 01/25/24 02/15/24 History Cholestyramine (with Sugar) 4 gm PO BID@1000,1800 PRN #30 02/03/24 02/15/24 Rx [Questran Packet] packet Loperamide [Imodium] 2 mg PO QID PRN #30 cap 02/03/24 02/15/24 Rx Metoclopramide [Reglan] 5 mg PO TID PRN #20 tab 02/03/24 02/15/24 Rx Allergies Allergy/AdvReac Type Severity Reaction Status Date / Time atorvastatin [From Lipitor] AdvReac MUSCLE Verified 02/15/24 07:49 CRAMPS hydrochlorothiazide AdvReac SEE COMMENT Verified 02/15/24 07:49 ropinirole [From Requip] AdvReac Hallucinati Verified 02/15/24 07:49 ons scopolamine AdvReac Hallucinati Verified 02/15/24 07:49 ons Physical Exam Vitals: Vital Signs Temp Pulse Resp BP Pulse Ox 02/15/24 04:57 98 18 159/78 95 02/15/24 03:33 98.2 F 105 H 20 174/85 96 02/15/24 01:24 100.1 F H 118 H 18 155/86 95 Intake and Output 02/14/24 02/15/24 02/15/24 22:59 06:59 14:59 Other: Voiding Method Toilet Weight 90.718 kg Results CBC & Chem 7: 02/15/24 01:30 02/15/24 01:30 Labs: Abnormal Lab Results - Last 24 Hours (Table) 02/15/24 02/15/24 02/15/24 Range/Units 01:30 01:30 01:30 WBC 10.8 H (3.8-10.6) k/uL Monocytes # 1.1 H (0-1.0) k/uL APTT (22.0-30.0) sec Sodium 132 L (137-145) mmol/L Carbon Dioxide 20 L (22-30) mmol/L BUN 4 L (9-20) mg/dL Glucose 143 H (74-99) mg/dL Plasma Lactic Acid Ney 2.1 H* (0.7-2.0) mmol/L Urine Protein (Negative) Urine Ketones (Negative) 02/15/24 02/15/24 Range/Units 02:06 03:31 WBC (3.8-10.6) k/uL Monocytes # (0-1.0) k/uL APTT 21.4 L (22.0-30.0) sec Sodium (137-145) mmol/L Carbon Dioxide (22-30) mmol/L BUN (9-20) mg/dL Glucose (74-99) mg/dL Plasma Lactic Acid Ney (0.7-2.0) mmol/L Urine Protein Trace H (Negative) Urine Ketones 2+ H (Negative)
--- NOTE | 2024-02-15 12:41 | P.CONS ---
History of Present Illness - Reason for Consult Consult date: 02/15/24 Esophagitis Requesting physician: Ruth Ann Dexter - Chief Complaint Nausea and vomiting - History of Present Illness This a pleasant 73-year-old male who presented to the emergency department with nausea and vomiting and concerns for dehydration. States his nausea and vom iting started yesterday afternoon around noon and he began to feel weak so he came in for further evaluation. He denies any blood in his emesis. He is known to gastroenterology for history of chronic diarrhea. Has last seen Dr. Subramanian a few months ago. He states he had some epigastric discomfort that has resolved. He still had some emesis this morning that was mostly bile. Denies any further abdominal pain. He had a CT of the abdomen pelvis that showed some wall thickening of the distal esophagus and gastroenterology was consulted for esophagitis. Patient states he has chronic inflammation in the esophagus, takes Protonix at home. Last EGD for longstanding history of GERD and intermittent dysphagia was done on 06/18/2023 with findings of linear ulcerations in the distal esophagus consistent with severe LA grade C reflux esophagitis, no evidence of Malka esophagitis and a benign-appearing duodenal stricture along the duodenal sweep. Last colonoscopy was 06/11/2020 that was normal colon. Patient has a history of GERD, takes Carafate at home as well as Protonix 40 mg twice daily Labs WBC 10.8 hemoglobin 14.5 platelet count 397,000 INR 1.0 sodium 132 potassium 3.5 BUN 4 creatinine 0.7 total bilirubin 0.6 AST 20 ALT 12 alkaline phosphatase 106 amylase 57 lipase 130 and stool for occult blood was negative. Patient's now at bedside stating that patient has had the symptoms off and on for the last 1 month duration. This is chronic for patient with who has history of IBS with diarrhea nausea and vomiting. He has had multiple endoscopic evaluations in the past as well as CAT scans. Review of Systems REVIEW OF SYSTEMS: CARDIOPULMONARY: No chest pain or shortness of breath. Gastrointestinal: No abdominal pain. No nausea or vomiting. No hematemesis, coffee-ground emesis. No rectal bleeding, or melena. GENITOURINARY: No dysuria or hematuria. MUSCULOSKELETAL: Reports normal range of motion., Joint pain. SKIN: No rashes. No jaundice. ENDOCRINE: No chills, fevers. No excessive weight gain or loss. No polydipsia or polyuria. PSYCHIATRIC: Unremarkable. NEUROLOGY: No change in mental status. Denies dizziness, headache. ENT: Vision unremarkable. CONSTITUTIONAL: No recent weight loss. No fever, chills, night sweats. Past Medical History Past Medical History: Coronary Artery Disease (CAD), Chest Pain / Angina, Eye Disorder, GERD/Reflux, Hyperlipidemia, Hypertension, Myocardial Infarction ([place]), Osteoarthritis (OA) Additional Past Medical History / Comment(s): recent admission for nausea/vomiting/diarrhea, Neck pain, SVT with ablation, duodenal ulcers, chronic duodenal stricture, bilateral glaucoma, sinusitis, migraines, anemia, esophagitis,hiatal hernia, chronic back pain, past fx ribs/sternum Last Myocardial Infarction Date:: 1999 History of Any Multi-Drug Resistant Organisms: None Reported Past Surgical History: Cardiac Ablation, Cholecystectomy, Heart Catheterization With Stent Additional Past Surgical History / Comment(s): stent bilateral eyes 03/2018, PCI with 3 stents, sinus surgery, cataracts bilaterally with lens implants, EGDs/colonoscopies, Past Anesthesia/Blood Transfusion Reactions: No Reported Reaction Additional Past Anesthesia/Blood Transfusion Reaction / Comm: Pt has had past multiple transfusions without reaction. Date of Last Stent Placement:: 1999 Past Psychological History: Anxiety Smoking Status: Never smoker Past Alcohol Use History: None Reported Past Drug Use History: None Reported - Past Family History Father Additional Family Medical History / Comment(s): Father at the age of 68yrs from a ruptured aortic aneurysm. Mother Additional Family Medical History / Comment(s): Mother lived into her 80's. Brother(s) Family Medical History: Cancer Additional Family Medical History / Comment(s): The patient had 3 brothers. One from colon cancer with metastatic disease to the brain. One brother at age 79 from a myocardial infarction. He has 1 brother that is alive with history of skin cancer and diabetes. Sister(s) Additional Family Medical History / Comment(s): The patient is a total of 3 sisters. One in her 80s from myocardial infarction. One sister at age 58 from coronary artery disease and also had a valvular disorder. Patient has one sister alive with diabetes and multiple other medical conditions. Patient has 2 sons and 1 daughter with no major medical problems. Medications and Allergies Home Medications Medication Instructions Recorded Confirmed Type Acetaminophen [Tylenol 8 Hour] 650 mg PO Q4H PRN 01/25/24 02/15/24 History Amitriptyline HCl [Elavil] 12.5 mg PO HS 01/25/24 02/15/24 History Betamethasone Dipropionate 1 applic TOPICAL DAILY PRN 01/25/24 02/15/24 History [Diprolene 0.05% Ointment] Brimonidine Tartrate/Timolol 1 drop BOTH EYES BID 01/25/24 02/15/24 History [Brimonidine-Timolol 0.2%-0.5%] Butalb/Acetaminophen/Caffeine 1 cap PO Q4HR PRN 01/25/24 02/15/24 History [Fioricet 50-300-40 mg Capsule] Cholecalciferol [Vitamin D3 (25 25 mcg PO DAILY 01/25/24 02/15/24 History Mcg = 1000 Iu)] Clindamycin Gel [Cleocin T 1% Gel] 1 applic TOPICAL BID PRN 01/25/24 02/15/24 History Clobetasol Propionate/Emoll 1 applic TOPICAL BID PRN 01/25/24 02/15/24 History [Clobetasol Emulsion 0.05% Foam] Diclofenac Sodium Gel [Voltaren 1% 2 gm TOPICAL QID PRN 01/25/24 02/15/24 History Gel] Dicyclomine [Bentyl] 10 mg PO TID 01/25/24 02/15/24 History Escitalopram [Lexapro] 10 mg PO DAILY 01/25/24 02/15/24 History Furosemide [Lasix] 20 mg PO DAILY 01/25/24 02/15/24 History Gabapentin [Neurontin] 800 mg PO TID 01/25/24 02/15/24 History Ketoconazole 2% Shampoo [Nizoral] 1 applic TOPICAL DAILY PRN 01/25/24 02/15/24 History Lidocaine 5% Patch [Lidoderm 5% 1 patch TOPICAL DAILY PRN 01/25/24 02/15/24 History Patch] Losartan [Cozaar] 50 mg PO DAILY 01/25/24 02/15/24 History Metoprolol Tartrate [Lopressor] 25 mg PO BID 01/25/24 02/15/24 History Montelukast [Singulair] 10 mg PO HS 01/25/24 02/15/24 History Nystatin/Triamcin 1 applic TOPICAL BID PRN 01/25/24 02/15/24 History [Nystatin-Triamcinolone Cream] Ondansetron Odt [Zofran ODT] 4 mg PO Q4H PRN 01/25/24 02/15/24 History Pantoprazole [Protonix] 40 mg PO BID 01/25/24 02/15/24 History Potassium Chloride 20 meq PO DAILY PRN 01/25/24 02/15/24 History Simvastatin [Zocor] 40 mg PO HS 01/25/24 02/15/24 History Sodium Chloride Tab 1 gm PO BID 01/25/24 02/15/24 History Sucralfate [Carafate] 1 gm PO ACHS 01/25/24 02/15/24 History Testosterone Cypionate 50 mg IM Q14D 01/25/24 02/15/24 History [Depo-Testosterone] diazePAM [Valium] 5 mg PO HS PRN 01/25/24 02/15/24 History tadalafiL 10 mg PO DAILY 01/25/24 02/15/24 History Cholestyramine (with Sugar) 4 gm PO BID@1000,1800 PRN #30 02/03/24 02/15/24 Rx [Questran Packet] packet Loperamide [Imodium] 2 mg PO QID PRN #30 cap 02/03/24 02/15/24 Rx Metoclopramide [Reglan] 5 mg PO TID PRN #20 tab 02/03/24 02/15/24 Rx Allergies Allergy/AdvReac Type Severity Reaction Status Date / Time atorvastatin [From Lipitor] AdvReac MUSCLE Verified 02/15/24 07:49 CRAMPS hydrochlorothiazide AdvReac SEE COMMENT Verified 02/15/24 07:49 ropinirole [From Requip] AdvReac Hallucinati Verified 02/15/24 07:49 ons scopolamine AdvReac Hallucinati Verified 02/15/24 07:49 ons Physical Exam Vitals: Vital Signs Temp Pulse Resp BP Pulse Ox 02/15/24 04:57 98 18 159/78 95 02/15/24 03:33 98.2 F 105 H 20 174/85 96 02/15/24 01:24 100.1 F H 118 H 18 155/86 95 Intake and Output 02/14/24 02/15/2424 22:59 06:59 14:59 Other: Voiding Method Toilet Weight 90.718 kg General appearance: The patient is alert, oriented, appears in no acute distress. HET: Head is normocephalic and atraumatic. Conjunctiva pink. Sclera anicteric. Neck: Supple without lymphadenopathy. Trachea midline. Heart: Regular. Lungs: Equal expansion, normal respiratory effort. Abdomen: Soft, nontender, nondistended. Skin: No rashes. No jaundice. Extremities: Normal skin color and turgor. No pedal edema. Neurological: No focal deficits. Alert and oriented x3. Results CBC & Chem 7: 02/15/24 01:30 02/15/24 01:30 Labs: Abnormal Lab Results - Last 24 Hours (Table) 02/15/24 02/15/24 02/15/24 Range/Units 01:30 01:30 01:30 WBC 10.8 H (3.8-10.6) k/uL Monocytes # 1.1 H (0-1.0) k/uL APTT (22.0-30.0) sec Sodium 132 L (137-145) mmol/L Carbon Dioxide 20 L (22-30) mmol/L BUN 4 L (9-20) mg/dL Glucose 143 H (74-99) mg/dL Plasma Lactic Acid Ney 2.1 H* (0.7-2.0) mmol/L Urine Protein (Negative) Urine Ketones (Negative) 02/15/24 02/15/24 Range/Units 02:06 03:31 WBC (3.8-10.6) k/uL Monocytes # (0-1.0) k/uL APTT 21.4 L (22.0-30.0) sec Sodium (137-145) mmol/L Carbon Dioxide (22-30) mmol/L BUN (9-20) mg/dL Glucose (74-99) mg/dL Plasma Lactic Acid Ney (0.7-2.0) mmol/L Urine Protein Trace H (Negative) Urine Ketones 2+ H (Negative) Comments: CT abdomen and pelvis with contrast reports small sized hiatal hernia. New wall thickening of the distal esophagus suspicious for inflammation or esophagitis. Correlate clinically. If symptoms do not resolve consider further investigation with direct visualization to exclude malignancy. No bowel obstruction. Assessment and Plan (1) Nausea & vomiting Narrative/Plan: 73-year-old who presented with nausea and vomiting x 1 day duration with some epigastric pain that has now resolved had CT of the abdomen pelvis showing some wall thickening in the esophagus possible esophagitis. Likely dealing with an acute gastroenteritis versus his chronic intermittent nausea and vomiting secondary to IBS. Last EGD in May of this year reported findings of LA grade C reflux esophagitis Patient has no coffee-ground emesis. Will treat symptomatically for now. Current Visit: No Status: Acute Code(s): R11.2 - NAUSEA WITH VOMITING, UNSPECIFIED SNOMED Code(s): 28715934 (2) IBS (irritable bowel syndrome) Current Visit: Yes Status: Acute Code(s): K58.9 - IRRITABLE BOWEL SYNDROME, UNSPECIFIED SNOMED Code(s): 40836793 (3) Chronic diarrhea Current Visit: Yes Status: Acute Code(s): K52.9 - NONINFECTIVE GASTROENTERITIS AND COLITIS, UNSPECIFIED SNOMED Code(s): 964326708 Plan: 1. Continue symptomatic and supportive care 2. Recommend Protonix 40 mg twice daily 3. Continue Carafate 4. Antiemetics as needed 5. Patient may have clear liquid diet 6. No plans on endoscopic evaluation at this time Thank you for this consultation, we will continue to follow. Anticipate discharge in the next [address] Marla Subramanian I agree with the dictator's note, documented as a scribe by Devorah Garner.
[2024-02-15] MEDS: SUCRALFATE 1 GM TAB PO SCH (12:58)
[2024-02-15] MEDS: NYSTATIN 100,000 UNIT/ML SUSP 500,000 UNIT/5 ML CUP PO SCH (14:02)
[2024-02-15] MEDS: GABAPENTIN 400 MG CAP PO SCH (15:12)
[2024-02-15] MEDS: HYDROmorphone 0.5 MG/0.5 ML SYRINGE IVP PRN (15:13)
[2024-02-15] MEDS: ONDANSETRON 4 MG/2 ML VIAL IVP PRN (15:13)
[2024-02-15] MEDS: BUTALB/APAP/CAFF 50-325-40MG TAB PO PRN (18:48)
[2024-02-15] MEDS: NON FORMULARY DRUG (Simvastatin 40 MG Tab) PO SCH (20:57)
[2024-02-15] MEDS: AMITRIPTYLINE HCL 25 MG TAB PO SCH (21:04)
[2024-02-15] MEDS: PANTOPRAZOLE 40 MG/10 ML VIAL IVP SCH (21:04)
[2024-02-15] MEDS: MONTELUKAST 10 MG TAB PO SCH (21:05)
[2024-02-15] MEDS: METOPROLOL TARTRATE 25 MG TAB PO SCH (21:05)
[2024-02-15] MEDS: TIMOLOL 0.5% OPHTH DROPS 5 ML BTL BOTH EYES SCH (21:14)
[2024-02-15] MEDS: BRIMONIDINE TARTRATE 0.2% DROPS 5 ML BTL BOTH EYES SCH (21:56)
[2024-02-15] MEDS: SODIUM CHLORIDE TAB 1 GM TAB PO SCH (23:02)
[2024-02-16] MEDS ORDERED: METOCLOPRAMIDE 5 MG/ML 2 ML VIAL IM PRN (09:39)
[2024-02-16] MEDS: LOSARTAN 50 MG TAB PO SCH (10:51)
[2024-02-16] MEDS: ONDANSETRON 4 MG/2 ML VIAL IVP SCH (10:51)
[2024-02-16] MEDS: ESCITALOPRAM 10 MG TAB PO SCH (10:51)
--- NOTE | 2024-02-16 11:41 | P.PN ---
Subjective Progress Note Date: 02/16/24 Principal diagnosis: Nausea and vomiting This a pleasant 73-year-old male who presented to the emergency department with nausea and vomiting and concerns for dehydration. States his nausea and vomiting started yesterday afternoon around noon and he began to feel weak so he came in for further evaluation. He denies any blood in his emesis. He is known to gastroenterology for history of chronic diarrhea. Has last seen Dr. Subramanian a few months ago. He states he had some epigastric discomfort that has resolved. He still had some emesis this morning that was mostly bile. Denies any further abdominal pain. He had a CT of the abdomen pelvis that showed some wall thickening of the distal esophagus and gastroenterology was consulted for esophagitis. Patient states he has chronic inflammation in the esophagus, takes Protonix at home. Last EGD for longstanding history of GERD and intermittent dysphagia was done on 06/18/2023 with findings of linear ulcerations in the d istal esophagus consistent with severe LA grade C reflux esophagitis, no evidence of Malka esophagitis and a benign-appearing duodenal stricture along the duodenal sweep. Last colonoscopy was 06/11/2020 that was normal colon. Patient has a history of GERD, takes Carafate at home as well as Protonix 40 mg twice daily Labs WBC 10.8 hemoglobin 14.5 platelet count 397,000 INR 1.0 sodium 132 potassi um 3.5 BUN 4 creatinine 0.7 total bilirubin 0.6 AST 20 ALT 12 alkaline phosphatase 106 amylase 57 lipase 130 and stool for occult blood was negative. Patient's now at bedside stating that patient has had the symptoms off and on for the last 1 month duration. This is chronic for patient with who has history of IBS with diarrhea nausea and vomiting. He has had multiple endoscopic evaluations in the past as well as CAT scans. 02/16/2024 Patient is seen and examined today as a follow-up. States he had some emesis again this morning with bile. States he was not given his pain medication or antinausea medication through the night. Complains of pain all over secondary to his neuropathy. Stool sample was checked and patient had negative C. difficile. Patient has chronic diarrhea and IBS. Objective - Vital Signs Vital signs: Vital Signs Temp 98.1 F 02/16/24 07:00 Pulse 96 02/16/24 07:00 Resp 16 02/16/24 07:00 BP 171/91 02/16/24 07:00 Pulse Ox 95 02/16/24 07:00 FiO2 Intake & Output 02/15/24 02/16/24 02/16/24 18:59 06:59 18:59 Weight 90.718 kg Other: Voiding Method Toilet # Voids 1 - Exam General appearance: The patient is alert, oriented, appears in no acute distress. HET: Head is normocephalic and atraumatic. Conjunctiva pink. Sclera anicteric. Neck: Supple without lymphadenopathy. Abdomen: Soft, nontender, nondistended. Extremities: Normal skin color and turgor. No pedal edema Skin: No rashes, no jaundice Neurological: No focal deficits. Alert and oriented. - Labs CBC & Chem 7: 02/15/24 01:30 02/17/24 06:07 Assessment and Plan (1) Nausea & vomiting Narrative/Plan: 73-year-old who presented with nausea and vomiting x 1 day duration with some epigastric pain that has now resolved had CT of the abdomen pelvis showing some wall thickening in the esophagus possible esophagitis. Likely dealing with an acute gastroenteritis versus his chronic intermittent nausea and vomiting secondary to IBS. Last EGD in May of this year reported findings of LA grade C reflux esophagitis Patient has no coffee-ground emesis. Will treat symptomatically for now. Current Visit: No Status: Acute Code(s): R11.2 - NAUSEA WITH VOMITING, UNSPECIFIED SNOMED Code(s): 53030025 (2) IBS (irritable bowel syndrome) Current Visit: Yes Status: Acute Code(s): K58.9 - IRRITABLE BOWEL SYNDROME, UNSPECIFIED SNOMED Code(s): 86082945 (3) Chronic diarrhea Current Visit: Yes Status: Acute Code(s): K52.9 - NONINFECTIVE GASTROENTERITIS AND COLITIS, UNSPECIFIED SNOMED Code(s): 472646665 Plan: 1. Continue symptomatic and supportive care 2. Recommend Protonix 40 mg twice daily 3. Continue Carafate 4. Antiemetics as needed. Will change Zofran to [id number] 5. Advance to low-fat diet 6. No plans on endoscopic evaluation at this time 7. Plan on discharge likely tomorrow Thank you for this consultation, we will continue to follow. Dr. Marla Subramanian I agree with the dictator's note, documented as a scribe by Devorah Garner.
--- NOTE | 2024-02-16 17:30 | P.PN ---
Subjective Progress Note Date: 02/16/24 72-year-old pleasant male came in because of gastric burning sensation patient does have history of hiatal hernia patient was having nausea vomiting multiple episodes of nonbloody nonbilious vomiting. Patient also has oral thrush. Patient does complain of some dysphagia and odynophagia as well. Patient denied any hematemesis melena or hematochezia. 02/16/2024 Patient evaluated in follow up on the medical floor. Patient continues to complain of epigastric and RLQ abdominal pain. GI following with no plans for endoscopic evaluation this admission. Patient remains on protonix and carafate. Zofran PRN. Did have en episode nonbloody emesis this morning has not tolerated clear liquids although he is requesting toast. Review of Systems Constitutional: Denied any fatigue denied any fever. Cardio vascular: denied any chest pain, palpitations Gastrointestinal: denied any nausea, vomiting, diarrhea Pulmonary: Denied any shortness of breath cough Neurologic denied any new focal deficits All inpatient medications were reviewed and appropriate changes in these medications as dictated in the interval history and assessment and plan. PHYSICAL EXAMINATION: GENERAL: The patient is alert and oriented x3, not in any acute distress. Well developed, well nourished. HEENT: Pupils are round and equally reacting to light. EOMI. No scleral icterus. No conjunctival pallor. Normocephalic, atraumatic. No pharyngeal erythema. No thyromegaly. CARDIOVASCULAR: S1 and S2 present. No murmurs, rubs, or gallops. PULMONARY: Chest is clear to auscultation, no wheezing or crackles. ABDOMEN: Soft, nontender, nondistended, normoactive bowel sounds. No palpable organomegaly. MUSCULOSKELETAL: No joint swelling or deformity. EXTREMITIES: No cyanosis, clubbing, or pedal edema. NEUROLOGICAL: Gross neurological examination did not reveal any focal deficits. SKIN: No rashes. Assessment and plan -Esophagitis and oral thrusth ordered nystatin swish and swallow will also order Maalox, carafate. No plans for endoscopic evaluation. -Nausea and vomiting secondary to above continue symptomatic care and as tolerated. -Coronary artery disease with stants in the past -Hyperlipidemia -Hypertension -Depression: Resumed on his SSRI DVT prophylaxis:-Ambulation Patient will be monitored overnight on increased diet. Continue supportive are, antiemetics and pain management. Continue nystatin swish and swallow. Possible DC home in the next 24 hours. The impression and plan of care has been dictated by Lali Boateng, Nurse Practitioner as directed. Dr. Lilliana MD I have performed a history and physical examination and medical decision making of this patient, discussed the same with the dictator, and agree with the dictators assessment and plan as written, documented as a scribe. Based on total visit time, I have performed more than 50% of this visit. Objective - Vital Signs Vital signs: Vital Signs Temp 98 F 02/16/24 13:32 Pulse 67 02/16/24 13:32 Resp 16 02/16/24 13:32 BP 138/74 02/16/24 13:32 Pulse Ox 96 02/16/24 13:32 FiO2 Intake & Output 02/15/24 02/16/24 02/16/24 18:59 06:59 18:59 Weight 90.718 kg Other: Voiding Method Toilet Toilet # Voids 1 - Labs CBC & Chem 7: 02/15/24 01:30 02/15/24 01:30 Labs: Microbiology - Last 24 Hours (Table) 02/15/24 02:16 Blood Culture - Preliminary Blood Assessment and Plan Time with Patient: Less than 30
[2024-02-17 02:23] VITALS: RESP 16
[2024-02-17 06:56] LABS: African American GFR (CKD) >90 (>60 ml/min/1.73 sqM); Anion Gap 7 mmol/L; Blood Urea Nitrogen 2 mg/dL (9-20); Calcium 8.7 mg/dL (8.4-10.2); Carbon Dioxide 24 mmol/L (22-30); Chloride 104 mmol/L (98-107); Glucose 107 mg/dL (74-99); Non-African American GFR(CKD) >90 (>60 ml/min/1.73 sqM); Potassium 3.1 mmol/L (3.5-5.1); Sodium 135 mmol/L (137-145)
[2024-02-17 08:22] VITALS: BP 188/84; PULSE 94; TEMP 98
[2024-02-17] MEDS: ACETAMINOPHEN TAB 325 MG TAB PO PRN (08:27)
[2024-02-17] MEDS ORDERED: Potassium Replacement Protocol 1 EACH MISC MISCELLANE PRN (08:46)
--- NOTE | 2024-02-17 08:53 | P.PN ---
Subjective Progress Note Date: 02/17/24 Principal diagnosis: Nausea and vomiting This a pleasant 73-year-old male who presented to the emergency department with nausea and vomiting and concerns for dehydration. States his nausea and vomiting started yesterday afternoon around noon and he began to feel weak so he came in for further evaluation. He denies any blood in his emesis. He is known to gastroenterology for history of chronic diarrhea. Has last seen Dr. Subramanian a few months ago. He states he had some epigastric discomfort that has resolved. He still had some emesis this morning that was mostly bile. Denies any further abdominal pain. He had a CT of the abdomen pelvis that showed some wall thickening of the distal esophagus and gastroenterology was consulted for esophagitis. Patient states he has chronic inflammation in the esophagus, takes Protonix at home. Last EGD for longstanding history of GERD and intermittent dysphagia was done on 06/18/2023 with findings of linear ulcerations in the d istal esophagus consistent with severe LA grade C reflux esophagitis, no evidence of M[place]a esophagitis and a benign-appearing duodenal stricture along the duodenal sweep. Last colonoscopy was 06/11/2020 that was normal colon. Patient has a history of GERD, takes Carafate at home as well as Protonix 40 mg twice daily Labs WBC 10.8 hemoglobin 14.5 platelet count 397,000 INR 1.0 sodium 132 potassi um 3.5 BUN 4 creatinine 0.7 total bilirubin 0.6 AST 20 ALT 12 alkaline phosphatase 106 amylase 57 lipase 130 and stool for occult blood was negative. Patient's now at bedside stating that patient has had the symptoms off and on for the last 1 month duration. This is chronic for patient with who has history of IBS with diarrhea nausea and vomiting. He has had multiple endoscopic evaluations in the past as well as CAT scans. 02/16/2024 Patient is seen and examined today as a follow-up. States he had some emesis again this morning with bile. States he was not given his pain medication or antinausea medication through the night. Complains of pain all over secondary to his neuropathy. Stool sample was checked and patient had negative C. difficile. Patient has chronic diarrhea and IBS. 1024 Patient seen and examined today as a follow-up. States his nausea and vomiting has resolved. He was tolerating a full liquid diet. He denies any abdominal pain and no diarrhea. Patient's potassium this morning was 3.1. He does have a history of hypokalemia and does take potassium at home. Denies any fevers or chills. Objective - Vital Signs Vital signs: Vital Signs Temp 98.0 F 02/17/24 07:00 Pulse 94 02/17/24 07:00 Resp 16 02/17/24 07:00 BP 188/84 02/17/24 07:00 Pulse Ox 97 02/17/24 07:00 FiO2 Intake & Output 02/16/24 02/17/24 02/17/24 18:59 06:59 18:59 Other: Voiding Method Toilet Toilet # Voids 1 - Exam General appearance: The patient is alert, oriented, appears in no acute distress. HET: Head is normocephalic and atraumatic. Conjunctiva pink. Sclera anicteric. Neck: Supple without lymphadenopathy. Abdomen: Soft, nontender, nondistended. Extremities: Normal skin color and turgor. No pedal edema Skin: No rashes, no jaundice Neurological: No focal deficits. Alert and oriented. - Labs CBC & Chem 7: 02/15/24 01:30 02/17/24 06:07 Labs: Abnormal Lab Results - Last 24 Hours (Table) 02/17/24 Range/Units 06:07 Sodium 135 L (137-145) mmol/L Potassium 3.1 L (3.5-5.1) mmol/L BUN 2 L (9-20) mg/dL Glucose 107 H (74-99) mg/dL Microbiology - Last 24 Hours (Table) 02/15/24 02:16 Blood Culture - Preliminary Blood Assessment and Plan (1) Nausea & vomiting Narrative/Plan: 73-year-old who presented with nausea and vomiting x 1 day duration with some epigastric pain that has now resolved had CT of the abdomen pelvis showing some wall thickening in the esophagus possible esophagitis. Likely dealing with an acute gastroenteritis versus his chronic intermittent nausea and vomiting secondary to IBS. Last EGD in May of this year reported findings of LA grade C reflux esophagitis Patient has no coffee-ground emesis. Will treat symptomatically for now. Nausea and vomiting resolved. Current Visit: No Status: Acute Code(s): R11.2 - NAUSEA WITH VOMITING, UNSPECIFIED SNOMED Code(s): 31943973 (2) IBS (irritable bowel syndrome) Current Visit: Yes Status: Acute Code(s): K58.9 - IRRITABLE BOWEL SYNDROME, UNSPECIFIED SNOMED Code(s): 11328046 (3) Chronic diarrhea Current Visit: Yes Status: Acute Code(s): K52.9 - NONINFECTIVE GASTROENTERITIS AND COLITIS, UNSPECIFIED SNOMED Code(s): 108425574 Plan: 1. Continue symptomatic and supportive care 2. Recommend Protonix 40 mg twice daily 3. Continue Carafate 4. Antiemetics as needed. Will change Zofran to [id number] 5. Advance to low-fat diet 6. No plans on endoscopic evaluation at this time 7. Replace potassium per protocol Thank you for this consultation, patient is cleared from gastroenterology for discharge after potassium replaced. Follow-up as scheduled Dr. Marla Subramanian I agree with the dictator's note, documented as a scribe by Devorah Garner.
[2024-02-17] MEDS: POTASSIUM CHLORIDE ER 20 MEQ TAB.ER PO SCH (10:24)
[2024-02-17] MEDS ORDERED: hydrALAZINE HCL 20 MG/ML 1 ML VIAL IVP PRN (12:09)
--- NOTE | 2024-02-18 08:58 | DS ---
DISCHARGE SUMMARY FINAL DIAGNOSES: 1. Esophagitis. 2. Nausea, vomiting, possible acute gastritis. 3. Coronary artery disease stent. 4. Multiple medical issues. DISCHARGE DISPOSITION: The patient will be discharged in stable condition and guarded prognosis. HISTORY OF PRESENT ILLNESS: This is a 73-year-old gentleman admitted with nausea, vomiting, esophagitis, treated symptomatically, improved significantly. PHYSICAL EXAMINATION: VITAL SIGNS: Stable. CARDIOVASCULAR: S1, S2. ABDOMEN: Soft. The patient will be discharged. Continue with Protonix and follow with Dr. Khan and Gastroenterology as well. The CT scan of the chest, abdomen, pelvis showed small size hiatal hernia. MMODL / IJN: [id number] /
== END 2024-02-17 14:10 | disposition home or self-care (01) ==
LOC: EC 01:23 → 6NMEDSUR 08:16 → 1SOBS 19:38
PROVIDERS: ADMIT Internal Medicine; ATTEND Internal Medicine
DX: K21.00 Gastro-esophageal reflux disease with esophagitis, without bleeding (principal); K58.9 Irritable bowel syndrome, unspecified; I25.10 Atherosclerotic heart disease of native coronary artery without angina pectoris; E78.5 Hyperlipidemia, unspecified; I10 Essential (primary) hypertension; F41.9 Anxiety disorder, unspecified; F32.A Depression, unspecified; I25.2 Old myocardial infarction; Z87.11 Personal history of peptic ulcer disease; Z90.49 Acquired absence of other specified parts of digestive tract; Z95.5 Presence of coronary angioplasty implant and graft; Z79.899 Other long term (current) drug therapy
CPT/HCPCS: 96376 ×4; 96368; 96365; 96367; 96375; 99285; 36415; 93005; 86900; 86901; 80053; 80048; 82150; 83605; 83690; 84484; 85025; 85610; 85730; 86850; 82272; 81003; 87040; 71260; 74177; G0378 ×3; J2270; J1200; J2765; J2405 ×3; J0692; J3490; J1171 ×3; J0131; Q9967; J1836; J2470 ×3

== ENCOUNTER 2024-03-01 15:08 | Observation (INO) | payer OTHER, MEDICARE ==
--- NOTE | 2024-03-01 15:13 | ED ---
General Adult HPI <Bradly Salazar - Last Filed: 03/01/24 15:12> - General Source: patient, family, RN notes reviewed Limitations: no limitations <Ziyad Gatica - Last Filed: 03/01/24 19:08> - General Stated complaint: abd pain - History of Present Illness Initial comments: Quick note: 73-year-old male presents via EMS for abdominal pain. EMS states that patient had low blood pressure with systolics in the 80s. They did do blood pressure with him standing and he said his systolic dropped to the 50s. They checked another blood pressure with him laying and he lifted his leg and his blood pressure was normal. They have been monitoring his blood pressure since coming to the ER and his blood pressure remained normal. Patient states that he had some epigastric pain and right groin pain. He has history of hiatal hernia states he was recently admitted for the same issues. (Bradly Salazar) Patient is a 73-year-old male presenting to the emergency department with concerns for abdominal problems. Patient has had several episodes over the past couple months. Symptoms started again yesterday. Patient has having nausea vomiting and diarrhea. Patient is having abdominal cramping, more on the right side. No fevers. Family is concerned that patient is unable to tolerate his oral medications at home. (Ziyad Gatica) - Related Data Home Medications Medication Instructions Recorded Confirmed Acetaminophen [Tylenol 8 Hour] 650 mg PO Q4H PRN 01/25/24 02/15/24 Amitriptyline HCl [Elavil] 12.5 mg PO HS 01/25/24 02/15/24 Betamethasone Dipropionate 1 applic TOPICAL DAILY PRN 01/25/24 02/15/24 [Diprolene 0.05% Ointment] Brimonidine Tartrate/Timolol 1 drop BOTH EYES BID 01/25/24 02/15/24 [Brimonidine-Timolol 0.2%-0.5%] Butalb/Acetaminophen/Caffeine 1 cap PO Q4HR PRN 01/25/24 02/15/24 [Fioricet 50-300-40 mg Capsule] Cholecalciferol [Vitamin D3 (25 25 mcg PO DAILY 01/25/24 02/15/24 Mcg = 1000 Iu)] Clindamycin Gel [Cleocin T 1% Gel] 1 applic TOPICAL BID PRN 01/25/24 02/15/24 Clobetasol Propionate/Emoll 1 applic TOPICAL BID PRN 01/25/24 02/15/24 [Clobetasol Emulsion 0.05% Foam] Diclofenac Sodium Gel [Voltaren 1% 2 gm TOPICAL QID PRN 01/25/24 02/15/24 Gel] Dicyclomine [Bentyl] 10 mg PO TID 01/25/24 02/15/24 Escitalopram [Lexapro] 10 mg PO DAILY 01/25/24 02/15/24 Furosemide [Lasix] 20 mg PO DAILY 01/25/24 02/15/24 Gabapentin [Neurontin] 800 mg PO TID 01/25/24 02/15/24 Ketoconazole 2% Shampoo [Nizoral] 1 applic TOPICAL DAILY PRN 01/25/24 02/15/24 Lidocaine 5% Patch [Lidoderm 5% 1 patch TOPICAL DAILY PRN 01/25/24 02/15/24 Patch] Losartan [Cozaar] 50 mg PO DAILY 01/25/24 02/15/24 Metoprolol Tartrate [Lopressor] 25 mg PO BID 01/25/24 02/15/24 Montelukast [Singulair] 10 mg PO HS 01/25/24 02/15/24 Nystatin/Triamcin 1 applic TOPICAL BID PRN 01/25/24 02/15/24 [Nystatin-Triamcinolone Cream] Ondansetron Odt [Zofran ODT] 4 mg PO Q4H PRN 01/25/24 02/15/24 Pantoprazole [Protonix] 40 mg PO BID 01/25/24 02/15/24 Potassium Chloride 20 meq PO DAILY PRN 01/25/24 02/15/24 Simvastatin [Zocor] 40 mg PO HS 01/25/24 02/15/24 Sodium Chloride Tab 1 gm PO BID 01/25/24 02/15/24 Sucralfate [Carafate] 1 gm PO ACHS 01/25/24 02/15/24 Testosterone Cypionate 50 mg IM Q14D 01/25/24 02/15/24 [Depo-Testosterone] diazePAM [Valium] 5 mg PO HS PRN 01/25/24 02/15/24 tadalafiL 10 mg PO DAILY 01/25/24 02/15/24 Previous Rx's Medication Instructions Recorded Cholestyramine (with Sugar) 4 gm PO BID@1000,1800 PRN #30 02/03/24 [Questran Packet] packet Loperamide [Imodium] 2 mg PO QID PRN #30 cap 02/03/24 Metoclopramide [Reglan] 5 mg PO TID PRN #20 tab 02/03/24 Calcium Carbonate [Tums] 1,000 mg PO Q4HR PRN #0 tab 02/16/24 Nystatin 100,000 Unit/ml Susp 500,000 unit PO QID #156 ml 02/16/24 [Mycostatin Oral Susp] Allergies Allergy/AdvReac Type Severity Reaction Status Date / Time atorvastatin [From Lipitor] AdvReac MUSCLE Verified 02/15/24 07:49 CRAMPS hydrochlorothiazide AdvReac SEE COMMENT Verified 02/15/24 07:49 ropinirole [From Requip] AdvReac Hallucinati Verified 02/15/24 07:49 ons scopolamine AdvReac Hallucinati Verified 02/15/24 07:49 ons Review of Systems ROS Other: All systems not noted in ROS Statement are negative. <Bradly Salazar - Last Filed: 03/01/24 15:12> ROS Other: All systems not noted in ROS Statement are negative. Constitutional: Denies: fever Eyes: Denies: eye pain ENT: Denies: ear pain Respiratory: Denies: cough Cardiovascular: Denies: chest pain Gastrointestinal: Reports: as per HPI, abdominal pain, nausea, vomiting, diarrhea <Ziyad Gatica - Last Filed: 03/01/24 19:08> ROS Statement: Those systems with pertinent positive or pertinent negative responses have been documented in the HPI. Past Medical History Past Medical History: Coronary Artery Disease (CAD), Chest Pain / Angina, Eye Disorder, GERD/Reflux, Hyperlipidemia, Hypertension, Myocardial Infarction ([place]), Osteoarthritis (OA) Additional Past Medical History / Comment(s): recent admission for nausea/vomiting/diarrhea, Neck pain, SVT with ablation, duodenal ulcers, chronic duodenal stricture, bilateral glaucoma, sinusitis, migraines, anemia, esophagitis,hiatal hernia, chronic back pain, past fx ribs/sternum Last Myocardial Infarction Date:: 1999 History of Any Multi-Drug Resistant Organisms: None Reported Past Surgical History: Cardiac Ablation, Cholecystectomy, Heart Catheterization With Stent Additional Past Surgical History / Comment(s): stent bilateral eyes 03/2018, PCI with 3 stents, sinus surgery, cataracts bilaterally with lens implants, EGDs/colonoscopies, Past Anesthesia/Blood Transfusion Reactions: No Reported Reaction Additional Past Anesthesia/Blood Transfusion Reaction / Comment(s): Pt has had past multiple transfusions without reaction. Date of Last Stent Placement:: 1999 Past Psychological History: Anxiety Smoking Status: Never smoker Past Alcohol Use History: None Reported Past Drug Use History: None Reported - Past Family History Father Additional Family Medical History / Comment(s): Father at the age of 68yrs from a ruptured aortic aneurysm. Mother Additional Family Medical History / Comment(s): Mother lived into her 80's. Brother(s) Family Medical History: Cancer Additional Family Medical History / Comment(s): The patient had 3 brothers. One from colon cancer with metastatic disease to the brain. One brother at age 79 from a myocardial infarction. He has 1 brother that is alive with h istory of skin cancer and diabetes. Sister(s) Additional Family Medical History / Comment(s): The patient is a total of 3 sisters. One in her 80s from myocardial infarction. One sister at age 58 from coronary artery disease and also had a valvular disorder. Patient has one sister alive with diabetes and multiple other medical conditions. Patient has 2 sons and 1 daughter with no major medical problems. <Bradly Salazar - Last Filed: 03/01/24 15:12> General Exam <Bradly Salazar - Last Filed: 03/01/24 15:12> Limitations: no limitations General appearance: alert Head exam: Present: normocephalic Eye exam: Present: normal appearance Neck exam: Present: normal inspection Respiratory exam: Present: normal lung sounds bilaterally Cardiovascular Exam: Present: regular rate, normal rhythm GI/Abdominal exam: Present: soft, tenderness (Mild to moderate tenderness right abdomen), normal bowel sounds. Absent: distended, guarding, rebound, rigid, pulsatile mass Extremities exam: Present: normal inspection Neurological exam: Present: alert Psychiatric exam: Present: normal affect, normal mood Skin exam: Present: normal color <Ziyad Gatica - Last Filed: 03/01/24 19:08> - General Exam Comments Initial Comments: Visual Physical Exam Vital signs reviewed General: Well-appearing, nontoxic, no acute distress. Head: Normocephalic, atraumatic Eyes: PERRLA, EOMI ENT: Airway patent Chest: Nonlabored breathing Skin: No visual rash, normal skin tone Neuro: Alert and oriented 3 Musculoskeletal: No gross abnormalities (Bradly Salazar) Course Vital Signs 03/01/24 15:10 Temperature 98 F Pulse Rate 76 Respiratory 18 Rate Blood Pressure 114/75 O2 Sat by Pulse 97 Oximetry Medical Decision Making - Lab Data Result diagrams: 03/01/24 17:12 03/01/24 17:12 <Ziyad Gatica - Last Filed: 03/01/24 19:08> - Medical Decision Making Was pt. sent in by a medical professional or institution (Dr. PA, MORTAR MIXER OPERATOR, urgent care, hospital, or fci...) When possible be specific @ -No Did you speak to anyone other than the patient for history (EMS, parent, family, police, friend...)? What history was obtained from this source @ -Family is present helps right history including that patient is unable to keep his medications down Did you review nursing and triage notes (agree or disagree)? Why? @ -I reviewed and agree with nursing and triage notes Were old charts reviewed (outside hosp., previous admission, EMS record, old EK G, old radiological studies, urgent care reports/EKG's, fci records)? Report findings @ -Previous admission reviewed Differential Diagnosis (chest pain, altered mental status, abdominal pain women, abdominal pain men, vaginal bleeding, weakness, fever, dyspnea, syncope, headache, dizziness, GI bleed, back pain, seizure, CVA, palpatations, mental health, musculoskeletal)? @ -Differential Abdominal Pain Men: Appendicitis, cholecystitis, diverticulosis, ischemic bowel, pancreatitis, he patitis, UTI, gastroenteritis, AAA, incarcerated hernia, bowel obstruction, constipation, inflammatory bowel, hepatitis, peptic ulcer disease, splenic infarction, perforated viscus, testicular torsion, this is not meant to be an all-inclusive list EKG interpreted by me (3pts min.). @ -As above X-rays interpreted by me (1pt min.). @ -Abdominal series shows small air-fluid levels right side of the abdomen CT interpreted by me (1pt min.). @ -None done U/S interpreted by me (1pt. min.). @ -None done What testing was considered but not performed or refused? (CT, X-rays, U/S, labs)? Why? @ -Considered CT scan however patient has had [address] scans What meds were considered but not given or refused? Why? @ -None Did you discuss the management of the patient with other professionals (pro fessionals i.e. DrJorge L, PA, MORTAR MIXER OPERATOR, lab, RT, psych nurse, social service coordinator, branch lending officer, teacher, chief credit officer, case finisher)? Give summary @ -Case discussed with practitioner Marisa Kelley who will admit covering EM covering for Dr. Khan Was smoking cessation discussed for >3mins.? @ -No Was critical care preformed (if so, how long)? @ -No Were there social determinants of health that impacted care today? How? (Homelessness, low income, unemployed, alcoholism, drug addiction, transportation, low edu. Level, literacy, decrease access to med. care, care home, rehab)? @ -No Was there de-escalation of care discussed even if they declined (Discuss DNR or withdrawal of care, Hospice)? DNR status @ -No What co-morbidities impacted this encounter? (DM, HTN, Smoking, COPD, CAD, Cancer, CVA, ARF, Chemo, Hep., AIDS, mental health diagnosis, sleep apnea, morbid obesity)? @ -History of previous abdominal problems Was patient admitted / discharged? Hospital course, mention meds given and route, prescriptions, significant lab abnormalities, going to OR and other pertinent info. @ -Patient presents with recurrent abdominal pain, nausea vomiting and diarrhea. Patient is still uncomfortable on reevaluation. Patient and family updated. Patient will be admitted. [place] orders written Undiagnosed new problem with uncertain prognosis? @ -No Drug Therapy requiring intensive monitoring for toxicity (Heparin, Nitro, Insulin, Cardizem)? @ -No Were any procedures done? @ -No Diagnosis/symptom? @ -Intractable vomiting, diarrhea Acute, or Chronic, or Acute on Chronic? @ -Acute, acute Uncomplicated (without systemic symptoms) or Complicated (systemic symptoms)? @ -Default Side effects of treatment? @ -No Exacerbation, Progression, or Severe Exacerbation? @ -No Poses a threat to life or bodily function? How? (Chest pain, [place], [place], pneumonia, PE, COPD, DKA, ARF, appy, cholecystitis, CVA, Diverticulitis, Homicidal, Suicidal, threat to staff... and all critical care pts) @ -No (Ziyad Gatica) - Lab Data Lab Results 03/01/24 03/01/24 03/01/24 Range/Units 17:12 17:12 17:12 WBC 9.6 (3.8-10.6) k/uL RBC 5.28 (4.30-5.90) m/uL Hgb 16.0 (13.0-17.5) gm/dL Hct 48.0 (39.0-53.0) % MCV 91.0 (80.0-100.0) fL MCH 30.3 (25.0-35.0) pg MCHC 33.3 (31.0-37.0) g/dL RDW 12.9 (11.5-15.5) % Plt Count 445 (150-450) k/uL MPV 6.6 Neutrophils % 57 % Lymphocytes % 29 % Monocytes % 9 % Eosinophils % 4 % Basophils % 1 % Neutrophils # 5.4 (1.3-7.7) k/uL Lymphocytes # 2.7 (1.0-4.8) k/uL Monocytes # 0.8 (0-1.0) k/uL Eosinophils # 0.4 (0-0.7) k/uL Basophils # 0.1 (0-0.2) k/uL PT 11.1 (10.0-12.5) sec INR 1.0 (<1.2) APTT 27.8 (22.0-30.0) sec Sodium 137 (137-145) mmol/L Potassium 3.3 L (3.5-5.1) mmol/L Chloride 97 L (98-107) mmol/L Carbon Dioxide 26 (22-30) mmol/L Anion Gap 14 mmol/L BUN 5 L (9-20) mg/dL Creatinine 0.87 (0.66-1.25) mg/dL Est GFR (CKD-EPI)AfAm >90 (>60 ml/min/1.73 sqM) Est GFR (CKD-EPI)NonAf 85 (>60 ml/min/1.73 sqM) Glucose 119 H (74-99) mg/dL Calcium 10.0 (8.4-10.2) mg/dL Magnesium 2.0 (1.6-2.3) mg/dL Total Bilirubin 0.9 (0.2-1.3) mg/dL AST 23 (17-59) U/L ALT 13 (4-49) U/L Alkaline Phosphatase 124 (38-126) U/L Troponin I (0.000-0.034) ng/mL Total Protein 8.0 (6.3-8.2) g/dL Albumin 4.9 (3.5-5.0) g/dL Lipase 142 (23-300) U/L 03/01/24 Range/Units 17:12 WBC (3.8-10.6) k/uL RBC (4.30-5.90) m/uL Hgb (13.0-17.5) gm/dL Hct (39.0-53.0) % MCV (80.0-100.0) fL MCH (25.0-35.0) pg MCHC (31.0-37.0) g/dL RDW (11.5-15.5) % Plt Count (150-450) k/uL MPV Neutrophils % % Lymphocytes % % Monocytes % % Eosinophils % % Basophils % % Neutrophils # (1.3-7.7) k/uL Lymphocytes # (1.0-4.8) k/uL Monocytes # (0-1.0) k/uL Eosinophils # (0-0.7) k/uL Basophils # (0-0.2) k/uL PT (10.0-12.5) sec INR (<1.2) APTT (22.0-30.0) sec Sodium (137-145) mmol/L Potassium (3.5-5.1) mmol/L Chloride (98-107) mmol/L Carbon Dioxide (22-30) mmol/L Anion Gap mmol/L BUN (9-20) mg/dL Creatinine (0.66-1.25) mg/dL Est GFR (CKD-EPI)AfAm (>60 ml/min/1.73 sqM) Est GFR (CKD-EPI)NonAf (>60 ml/min/1.73 sqM) Glucose (74-99) mg/dL Calcium (8.4-10.2) mg/dL Magnesium (1.6-2.3) mg/dL Total Bilirubin (0.2-1.3) mg/dL AST (17-59) U/L ALT (4-49) U/L Alkaline Phosphatase (38-126) U/L Troponin I <0.012 (0.000-0.034) ng/mL Total Protein (6.3-8.2) g/dL Albumin (3.5-5.0) g/dL Lipase (23-300) U/L Disposition <Bradly Salazar - Last Filed: 03/01/24 15:12> Is patient prescribed a controlled substance at d/c from ED?: No Time of Disposition: 19:05 <Ziyad Gatica - Last Filed: 03/01/24 19:08> Clinical Impression: Nausea vomiting and diarrhea Disposition: ADMITTED IP TO THIS HOSP Referrals: Jocelin Khan MD [Primary Care Provider] - 1-2 days
[2024-03-01 17:29] LABS: Basophils # (A) 0.1 k/uL (0-0.2); Basophils % (A) 1 %; Eosinophils # (A) 0.4 k/uL (0-0.7); Eosinophils % (A) 4 %; Lymphocytes # (A) 2.7 k/uL (1.0-4.8); Lymphocytes % (A) 29 %; MCH 30.3 pg (25.0-35.0); MCHC 33.3 g/dL (31.0-37.0); Mean Platelet Volume 6.6; Monocytes # (A) 0.8 k/uL (0-1.0); Monocytes % (A) 9 %; Neutrophils # (A) 5.4 k/uL (1.3-7.7); Neutrophils % (A) 57 %; Platelet Count 445 k/uL (150-450); RBC 5.28 m/uL (4.30-5.90); RDW 12.9 % (11.5-15.5); WBC 9.6 k/uL (3.8-10.6)
[2024-03-01 17:44] LABS: ALT 13 U/L (4-49); AST 23 U/L (17-59); African American GFR (CKD) >90 (>60 ml/min/1.73 sqM); Albumin 4.9 g/dL (3.5-5.0); Alkaline Phosphatase 124 U/L (38-126); Anion Gap 14 mmol/L; Blood Urea Nitrogen 5 mg/dL (9-20); Carbon Dioxide 26 mmol/L (22-30); Chloride 97 mmol/L (98-107); Glucose 119 mg/dL (74-99); Lipase 142 U/L (23-300); Non-African American GFR(CKD) 85 (>60 ml/min/1.73 sqM); Potassium 3.3 mmol/L (3.5-5.1); Sodium 137 mmol/L (137-145); Total Bilirubin 0.9 mg/dL (0.2-1.3)
[2024-03-01 17:52] LABS: Partial Thromboplastin Time 27.8 sec (22.0-30.0); Prothrombin Time 11.1 sec (10.0-12.5)
--- NOTE | 2024-03-01 18:05 | XR ---
EXAMINATION TYPE: XR abdomen acute w cxr DATE OF EXAM: 03/01/2024 COMPARISON: 02/15/2024 and 01/25/2024 CLINICAL INDICATION: Male, 73 years old with history of chest and abdominal pain; TECHNIQUE: Acute abdominal series FINDINGS: Heart normal size. Aorta and pulmonary vasculature are within normal limits. No consolidati on or pleural effusion. Bilateral nipple shadows noted. No evidence for free intraperitoneal air. A few scattered small air-fluid levels within the right side of the colon. No significant stool burde n. Air extends distally to the rectum. No dilated small bowel or differential air-fluid levels are seen. Cholecystectomy clips. Degenerative changes mid to lower lumbar spine. Mild degenerative change both hips. IMPRESSION: 1. No acute cardiopulmonary process. 2. Small air-fluid levels within the right side of the colon suggesting liquid stool/diarrheal state. Consider enteritis. 3. No evidence for free air or bowel obstruction. [facility], , 03/01/2024 6:03 PM
[2024-03-01] MEDS ORDERED: NALOXONE 0.4 MG/ML 1 ML VIAL IV PRN (19:08)
[2024-03-01] MEDS: SODIUM CHLORIDE 0.9% 1,000 ML IV STA (20:08)
[2024-03-01] MEDS: FAMOTIDINE 20 MG/2 ML VIAL IV STA (20:09)
[2024-03-01] MEDS: HYDROmorphone 1 MG/ML 1 ML SYRINGE IVP STA (20:09)
[2024-03-01] MEDS: SODIUM CHLORIDE 0.9% 1,000 ML IV SCH (20:09)
[2024-03-01] MEDS: ONDANSETRON 4 MG/2 ML VIAL IVP STA (20:09)
[2024-03-01] MEDS ORDERED: NON FORMULARY DRUG (Acetaminophen [Tylenol 8 Hour] 650 MG Tablet) PO PRN (20:42)
[2024-03-01] MEDS ORDERED: KETOCONAZOLE 2% SHAMPOO 1 APPLIC/ML TOPICAL PRN (20:42)
[2024-03-01] MEDS ORDERED: POTASSIUM CHLORIDE ER 20 MEQ TAB.ER PO PRN (20:42)
[2024-03-01] MEDS ORDERED: LIDOCAINE 4% PATCH TOPICAL PRN (20:42)
[2024-03-01] MEDS ORDERED: CALCIUM CARBONATE 500 MG CHEWABLE PO PRN (20:42)
[2024-03-01] MEDS: MONTELUKAST 10 MG TAB PO SCH (22:27)
[2024-03-01] MEDS: AMITRIPTYLINE HCL 25 MG TAB PO SCH (22:36)
[2024-03-01] MEDS: GABAPENTIN 400 MG CAP PO SCH (22:36)
[2024-03-01] MEDS: BALSALAZIDE DISODIUM 750 MG CAPSULE PO SCH (22:37)
[2024-03-01] MEDS: SODIUM CHLORIDE TAB 1 GM TAB PO SCH (22:37)
[2024-03-01] MEDS: DICYCLOMINE 10 MG CAP PO SCH (22:37)
[2024-03-01] MEDS: BRIMONIDINE TARTRATE 0.2% DROPS 5 ML BTL BOTH EYES SCH (22:37)
[2024-03-01] MEDS: METOPROLOL TARTRATE 25 MG TAB PO SCH (22:37)
[2024-03-01] MEDS: SUCRALFATE 1 GM TAB PO SCH (22:37)
[2024-03-01] MEDS: NON FORMULARY DRUG (Simvastatin 40 MG Tab) PO SCH (22:38)
[2024-03-01] MEDS: TIMOLOL 0.5% OPHTH DROPS 5 ML BTL BOTH EYES SCH (22:38)
[2024-03-02] MEDS: diazePAM 5 MG TAB PO PRN (00:11)
[2024-03-02] MEDS: ONDANSETRON 4 MG/2 ML VIAL IVP PRN (02:48)
[2024-03-02] MEDS: ACETAMINOPHEN TAB 325 MG TAB PO PRN (02:48)
[2024-03-02] MEDS: ACETAMINOPHEN IV (For NPO) 1,000 MG in EMPTY BAG 1 BAG IVPB SCH (05:15)
--- NOTE | 2024-03-02 09:57 | P.HPIM ---
History of Present Illness H&P Date: 03/02/24 History of present illness; patient 73-year-old gentleman with past medical history significant for coronary artery disease with stent to LAD and diagonal, hypertension, IBS, SVT status post ablation in 2011, hiatal hernia, history of ulcer who presented to the ER because of nausea, vomiting abdominal pain , diarrhea. Patient has been admitted couple of times in the last month with similar complaints. Patient has seen GI in the history of chronic diarrhea and triple bowel syndrome and normally takes Protonix at home. Patient did that he was all right yesterday morning when he started having again nausea vomiting and diarrhea. Patient was also having generalized abdominal pain, cramping in nature, mostly on the right side, nonradiating, no aggravating or relieving factors of his abdominal pain. Patient also complained of nausea and vomiting. There was no complaint of fever or chills. There was no complaint of orthopnea or PND. Patient denies any chest pain or shortness of breath. Patient stated that he did see his PCP and GI in the last week and patient was some given some antibiotics but patient abdominal pain persisted.. Because of this abdominal pain, EMS was called and patient was found to be hypotensive so patient was brought to the ER. Initial lab work done in the ER showed WBC 9.6, hemoglobin 16, platelet count 445, sodium 137 potassium 3.3, BUN 5, creatinine 0.87, glucose 119, calcium 10, magnesium 2, AST 23, ALT 13, troponin 0.012 X-ray acute normal series done showed small air-fluid level within the right side of the colon suggesting diarrheal state Patient admitted to internal medicine service REVIEW OF SYSTEMS: CONSTITUTIONAL: No fever, no malaise, no fatigue. HEENT: No recent visual problems or hearing problems. Denied any sore throat. CARDIOVASCULAR: As mentioned above PULMONARY: No shortness of breath, no cough, no hemoptysis. GASTROINTESTINAL: As mentioned above NEUROLOGICAL: No headaches, no weakness, no numbness. HEMATOLOGICAL: Denies any bleeding or petechiae. GENITOURINARY: Denies any burning micturition, frequency, or urgency. MUSCULOSKELETAL/RHEUMATOLOGICAL: Denies any joint pain, swelling, or any muscle pain. ENDOCRINE: Denies any polyuria or polydipsia. The rest of the 14-point review of systems is negative. PHYSICAL EXAMINATION: GENERAL: The patient is alert and oriented x3, not in any acute distress. Well developed, well nourished. HEENT: Pupils are round and equally reacting to light. EOMI. No scleral icterus. No conjunctival pallor. Normocephalic, atraumatic. No pharyngeal erythema. No thyromegaly. CARDIOVASCULAR: S1 and S2 present. No murmurs, rubs, or gallops. PULMONARY: Chest is clear to auscultation, no wheezing or crackles. ABDOMEN: Soft, nontender, nondistended, normoactive bowel sounds. No palpable organomegaly. MUSCULOSKELETAL: No joint swelling or deformity. EXTREMITIES: No cyanosis, clubbing, or pedal edema. NEUROLOGICAL: Gross neurological examination did not reveal any focal deficits. SKIN: No rashes. Assessment and plan Abdominal pain Nausea and vomiting Coronary arteries history of stent placement SVT with history of radiofrequency ablation Hypertension Hyperlipidemia GERD History of duodenal ulcer/chronic duodenal stricture. Chronic back pain Chronic headache IBS Anxiety Monitor vital signs Monitor CBC Monitor CMP Ordered antiemetics Ordered IV fluids Ordered stool culture and stool for C. difficile Ordered electrolyte monitoring Ordered Protonix and Carafate Ordered pain management Ordered CT abdominal pelvis with contrast Hold blood pressure medications for now Resume home meds Labs and medication were reviewed.. Continue same treatment. Continue with symptomatic treatment. Resume home medication. Monitor labs and vitals. DVT and GI prophylaxis. Further recommendations as per clinical course of the patient Dictation was produced using [employer] dictation software. please excuse any grammatical, word or spelling errors. Past Medical History Past Medical History: Coronary Artery Disease (CAD), Chest Pain / Angina, Eye Disorder, GERD/Reflux, Hyperlipidemia, Hypertension, Myocardial Infarction ([place]), Osteoarthritis (OA) Additional Past Medical History / Comment(s): recent admission for nausea/vomiting/diarrhea, Neck pain, SVT with ablation, duodenal ulcers, chronic duodenal stricture, bilateral glaucoma, sinusitis, migraines, anemia, esophagitis,hiatal hernia, chronic back pain, past fx ribs/sternum Last Myocardial Infarction Date:: 1999 History of Any Multi-Drug Resistant Organisms: None Reported Past Surgical History: Cardiac Ablation, Cholecystectomy, Heart Catheterization With Stent Additional Past Surgical History / Comment(s): stent bilateral eyes 03/2018, PCI with 3 stents, sinus surgery, cataracts bilaterally with lens implants, EGDs/colonoscopies, Past Anesthesia/Blood Transfusion Reactions: No Reported Reaction Additional Past Anesthesia/Blood Transfusion Reaction / Comment(s): Pt has had past multiple transfusions without reaction. Date of Last Stent Placement:: 1999 Past Psychological History: Anxiety Additional Psychological History / Comment(s): Pt resides with his spouse. He served in the [employer]. He is independent. Smoking Status: Never smoker Past Alcohol Use History: None Reported Additional Past Alcohol Use History / Comment(s): Patient was a smoker for only a few years in his 40s. Past Drug Use History: None Reported - Past Family History Father Additional Family Medical History / Comment(s): Father at the age of 68yrs from a ruptured aortic aneurysm. Mother Additional Family Medical History / Comment(s): Mother lived into her 80's. Brother(s) Family Medical History: Cancer Additional Family Medical History / Comment(s): The patient had 3 brothers. One from colon cancer with metastatic disease to the brain. One brother at age 79 from a myocardial infarction. He has 1 brother that is alive with history of skin cancer and diabetes. Sister(s) Additional Family Medical History / Comment(s): The patient is a total of 3 sisters. One in her 80s from myocardial infarction. One sister at age 58 from coronary artery disease and also had a valvular disorder. Patient has one sister alive with diabetes and multiple other medical conditions. Patient has 2 sons and 1 daughter with no major medical problems. Medications and Allergies Home Medications Medication Instructions Recorded Confirmed Type Acetaminophen [Tylenol 8 Hour] 650 mg PO Q4H PRN 01/25/24 03/01/24 History Amitriptyline HCl [Elavil] 12.5 mg PO HS 01/25/24 03/01/24 History Betamethasone Dipropionate 1 applic TOPICAL DAILY PRN 01/25/24 03/01/24 History [Diprolene 0.05% Ointment] Brimonidine Tartrate/Timolol 1 drop BOTH EYES BID 01/25/24 03/01/24 History [Brimonidine-Timolol 0.2%-0.5%] Butalb/Acetaminophen/Caffeine 1 cap PO Q4HR PRN 01/25/24 03/01/24 History [Fioricet 50-300-40 mg Capsule] Cholecalciferol [Vitamin D3 (25 25 mcg PO DAILY 01/25/24 03/01/24 History Mcg = 1000 Iu)] Clindamycin Gel [Cleocin T 1% Gel] 1 applic TOPICAL BID PRN 01/25/24 03/01/24 History Clobetasol Propionate/Emoll 1 applic TOPICAL BID PRN 01/25/24 03/01/24 History [Clobetasol Emulsion 0.05% Foam] Diclofenac Sodium Gel [Voltaren 1% 2 gm TOPICAL QID PRN 01/25/24 03/01/24 History Gel] Dicyclomine [Bentyl] 10 mg PO TID 01/25/24 03/01/24 History Escitalopram [Lexapro] 10 mg PO DAILY 01/25/24 03/01/24 History Furosemide [Lasix] 20 mg PO DAILY 01/25/24 03/01/24 History Gabapentin [Neurontin] 800 mg PO TID 01/25/24 03/01/24 History Ketoconazole 2% Shampoo [Nizoral] 1 applic TOPICAL DAILY PRN 01/25/24 03/01/24 History Lidocaine 5% Patch [Lidoderm 5% 1 patch TOPICAL DAILY PRN 01/25/24 03/01/24 History Patch] Losartan [Cozaar] 50 mg PO DAILY 01/25/24 03/01/24 History Metoprolol Tartrate [Lopressor] 25 mg PO BID 01/25/24 03/01/24 History Montelukast [Singulair] 10 mg PO HS 01/25/24 03/01/24 History Nystatin/Triamcin 1 applic TOPICAL BID PRN 01/25/24 03/01/24 History [Nystatin-Triamcinolone Cream] Ondansetron Odt [Zofran ODT] 4 mg PO Q4H PRN 01/25/24 03/01/24 History Pantoprazole [Protonix] 40 mg PO BID 01/25/24 03/01/24 History Potassium Chloride 20 meq PO DAILY PRN 01/25/24 03/01/24 History Simvastatin [Zocor] 40 mg PO HS 01/25/24 03/01/24 History Sodium Chloride Tab 1 gm PO BID 01/25/24 03/01/24 History Sucralfate [Carafate] 1 gm PO ACHS 01/25/24 03/01/24 History Testosterone Cypionate 50 mg IM Q14D 01/25/24 03/01/24 History [Depo-Testosterone] diazePAM [Valium] 5 mg PO HS PRN 01/25/24 03/01/24 History tadalafiL 10 mg PO DAILY 01/25/24 03/01/24 History Cholestyramine (with Sugar) 4 gm PO BID@1000,1800 PRN #30 02/03/24 03/01/24 Rx [Questran Packet] packet Loperamide [Imodium] 2 mg PO QID PRN #30 cap 02/03/24 03/01/24 Rx Metoclopramide [Reglan] 5 mg PO TID PRN #20 tab 02/03/24 03/01/24 Rx Calcium Carbonate [Tums] 1,000 mg PO Q4HR PRN #0 tab 02/16/24 03/01/24 Rx Ciprofloxacin HCl [Cipro] 500 mg PO DIRECTED 03/01/24 03/01/24 History Mesalamine [Asacol Hd] 800 mg PO TID 03/01/24 03/01/24 History metroNIDAZOLE [Flagyl] 500 mg PO DIRECTED 03/01/24 03/01/24 History Allergies Allergy/AdvReac Type Severity Reaction Status Date / Time atorvastatin [From Lipitor] AdvReac MUSCLE Verified 03/01/24 19:22 CRAMPS hydrochlorothiazide AdvReac SEE COMMENT Verified 03/01/24 19:22 ropinirole [From Requip] AdvReac Hallucinati Verified 03/01/24 19:22 ons scopolamine AdvReac Hallucinati Verified 03/01/24 19:22 ons Physical Exam Vitals: Vital Signs Temp Pulse Pulse Resp BP BP Pulse Ox 03/02/24 02:00 98.5 F 80 23 119/69 98 03/02/24 01:51 16 03/01/24 21:49 91 19 158/82 98 03/01/24 20:57 82 18 98 03/01/24 20:03 97.7 F 98 18 125/86 98 03/01/24 15:10 98 F 76 18 114/75 97 Intake and Output 03/01/24 03/02/24 03/02/24 22:59 06:59 14:59 Intake Total 1100 675 Output Total 350 Balance 1100 325 Intake: Intake, IV Titration 1000 675 Amount Sodium Chloride 0.9% 1, 675 000 ml @ 75 mls/hr IV . [id number] [facility] Rx#:[id number] Sodium Chloride 0.9% 1, 1000 000 ml @ 999 mls/hr IV . Q1H1M [facility] Rx#:[id number] Oral 100 Output: Urine 350 Other: Voiding Method Urinal # Voids 2 2 Weight 87.543 kg Results CBC & Chem 7: 03/01/24 17:12 03/01/24 17:12 Labs: Abnormal Lab Results - Last 24 Hours (Table) 03/01/24 Range/Units 17:12 Potassium 3.3 L (3.5-5.1) mmol/L Chloride 97 L (98-107) mmol/L BUN 5 L (9-20) mg/dL Glucose 119 H (74-99) mg/dL Thrombosis Risk Factor Assmnt - Choose All That Apply Any of the Below Risk Factors Present?: Yes Each Factor Represents 1 point: Obesity (BMI >25) Other Risk Factors: Yes Each Risk Factor Represents 3 Points: Age 75 years or older Thrombosis Risk Factor Assessment Total Risk Factor Score: 4 Thrombosis Risk Factor Assessment Level: Moderate Risk
[2024-03-02] MEDS ORDERED: CHOLESTYRAMINE (WITH SUGAR) 4 GM PACKET PO PRN (10:00)
[2024-03-02] MEDS: HYDROmorphone 0.5 MG/0.5 ML SYRINGE IVP PRN (10:41)
[2024-03-02] MEDS: ESCITALOPRAM 10 MG TAB PO SCH (10:47)
[2024-03-02] MEDS: CHOLECALCIFEROL 25 MCG (1000 IU) TABLET PO SCH (10:47)
[2024-03-02] MEDS: CHOLESTYRAMINE (WITH SUGAR) 4 GM PACKET PO SCH (10:55)
[2024-03-02] MEDS: PANTOPRAZOLE 40 MG/10 ML VIAL IV SCH ×2 (10:58→21:09)
[2024-03-02] MEDS: LOSARTAN 50 MG TAB PO SCH (10:58)
[2024-03-02] MEDS: FUROSEMIDE 20 MG TAB PO SCH (10:59)
--- NOTE | 2024-03-02 11:10 | CT ---
EXAMINATION TYPE: CT abdomen pelvis w con DATE OF EXAM: 03/02/2024 10:16 AM COMPARISON: None. CLINICAL INDICATION: Male, 73 years old with history of Abdominal pain, ABD PAIN TECHNIQUE: Axial images were obtained from above the diaphragm to the pubic rami in the axial plane a t 5 mm thick sections. Reconstructed images are reviewed on the computer in the coronal plane. CONTRAST: 100 mL of Isovue 300. Study performed without Oral Contrast DLP: 1028.1 mGycm, Automated exposure control for dose reduction was used. FINDINGS: Limited CT sections are obtained the lung bases. The lung bases are clear. CT ABDOMEN: Liver: Normal Spleen: Normal Pancreas: Normal Adrenal glands: The adrenal glands are normal. Gallbladder: Surgically absent Kidneys: No masses are evident. No hydronephrosis is present. Peripelvic cyst is within the mid lef t kidney measuring 4.0 cm, present previously. There is a 1.8 cm cyst in the medial inferior pole rig ht kidney Delayed images were obtained through the kidneys, which remain unremarkable. Aorta: Vascular calcification is within the aorta. Inferior vena cava: Normal. CT PELVIS: Loops of bowel within the abdomen and pelvis are normal. There are loops of bowel which are incom pletely distended or lack oral contrast limiting their evaluation. Appendix: Surgically absent. Urinary bladder: Normal. Genitourinary structures: enlarged Osseous structures: No suspicious lytic or sclerotic lesions. Scoliosis degenerative disc changes low er lumbar spine small Schmorl's node is in the region T12. IMPRESSION: 1. Peripelvic cysts 2. No suspicious radiographic changes to account for pain [facility], Workstation: [facility], 03/02/2024 11:08 AM
[2024-03-02 11:42] LABS: Basophils % (A) 1 %; Eosinophils # (A) 0.2 k/uL (0-0.7); Eosinophils % (A) 4 %; HCT 39.9 % (39.0-53.0); HGB 13.1 gm/dL (13.0-17.5); Lymphocytes # (A) 2.1 k/uL (1.0-4.8); Lymphocytes % (A) 36 %; MCH 30.2 pg (25.0-35.0); MCHC 32.9 g/dL (31.0-37.0); MCV 91.7 fL (80.0-100.0); Mean Platelet Volume 7.1; Monocytes # (A) 0.5 k/uL (0-1.0); Monocytes % (A) 9 %; Neutrophils # (A) 2.8 k/uL (1.3-7.7); Neutrophils % (A) 48 %; Platelet Count 365 k/uL (150-450); RBC 4.35 m/uL (4.30-5.90); RDW 13.6 % (11.5-15.5); WBC 5.8 k/uL (3.8-10.6)
[2024-03-02 13:00] LABS: ALT 10 U/L (4-49); AST 18 U/L (17-59); African American GFR (CKD) >90 (>60 ml/min/1.73 sqM); Albumin 3.3 g/dL (3.5-5.0); Alkaline Phosphatase 91 U/L (38-126); Anion Gap 9 mmol/L; Blood Urea Nitrogen 5 mg/dL (9-20); C Reactive Protein 2.1 mg/dL (<1.0); Calcium 8.4 mg/dL (8.4-10.2); Carbon Dioxide 24 mmol/L (22-30); Chloride 104 mmol/L (98-107); Glucose 109 mg/dL (74-99); Non-African American GFR(CKD) 87 (>60 ml/min/1.73 sqM); Potassium 3.9 mmol/L (3.5-5.1); Sodium 137 mmol/L (137-145); Total Bilirubin 0.7 mg/dL (0.2-1.3); Total Protein 5.7 g/dL (6.3-8.2)
[2024-03-02] MEDS: METOCLOPRAMIDE 5 MG TAB PO PRN (21:20)
[2024-03-03] MEDS: HYDROcodone/APAP 5-325MG 1 EACH TAB PO PRN (01:54)
[2024-03-03] MEDS: BUTALB/APAP/CAFF 50-325-40MG TAB PO PRN (01:55)
[2024-03-03 03:19] LABS: Basophils % (A) 0 %; Eosinophils # (A) 0.2 k/uL (0-0.7); Eosinophils % (A) 4 %; HCT 34.4 % (39.0-53.0); HGB 11.3 gm/dL (13.0-17.5); Lymphocytes # (A) 1.8 k/uL (1.0-4.8); Lymphocytes % (A) 34 %; MCH 30.2 pg (25.0-35.0); MCHC 32.8 g/dL (31.0-37.0); MCV 92.2 fL (80.0-100.0); Monocytes # (A) 0.4 k/uL (0-1.0); Monocytes % (A) 7 %; Neutrophils # (A) 2.7 k/uL (1.3-7.7); Neutrophils % (A) 52 %; Platelet Count 305 k/uL (150-450); RBC 3.73 m/uL (4.30-5.90); RDW 13.5 % (11.5-15.5); WBC 5.3 k/uL (3.8-10.6)
[2024-03-03 03:31] LABS: ALT 9 U/L (4-49); AST 19 U/L (17-59); African American GFR (CKD) >90 (>60 ml/min/1.73 sqM); Albumin 2.8 g/dL (3.5-5.0); Alkaline Phosphatase 70 U/L (38-126); Anion Gap 6 mmol/L; Blood Urea Nitrogen 4 mg/dL (9-20); Calcium 7.7 mg/dL (8.4-10.2); Carbon Dioxide 24 mmol/L (22-30); Chloride 106 mmol/L (98-107); Glucose 126 mg/dL (74-99); Non-African American GFR(CKD) >90 (>60 ml/min/1.73 sqM); Sodium 136 mmol/L (137-145); Total Bilirubin 0.4 mg/dL (0.2-1.3); Total Protein 5.1 g/dL (6.3-8.2)
[2024-03-03] MEDS ORDERED: Potassium Replacement Protocol 1 EACH MISC MISCELLANE PRN (07:26)
[2024-03-03 10:41] LABS: Erythrocyte Sedimentation Rate 4 mm/Hr (0-20)
[2024-03-03] MEDS: LOPERAMIDE 2 MG CAP PO PRN (12:03)
--- NOTE | 2024-03-03 12:31 | P.PN ---
Subjective Progress Note Date: 03/03/24 patient 73-year-old gentleman with past medical history significant for coronary artery disease with stent to LAD and diagonal, hypertension, IBS, SVT status post ablation in 2011, hiatal hernia, history of ulcer who presented to the ER because of nausea, vomiting abdominal pain , diarrhea. Patient has been admitted couple of times in the last month with similar complaints. Patient has seen GI in the history of chronic diarrhea and triple bowel syndrome and normally takes Protonix at home. Patient did that he was all right yesterday morning when he started having again nausea vomiting and diarrhea. Patient was also having generalized abdominal pain, cramping in nature, mostly on the right side, nonradiating, no aggravating or relieving factors of his abdominal pain. Patient also complained of nausea and vomiting. There was no complaint of fever or chills. There was no complaint of orthopnea or PND. Patient denies any chest pain or shortness of breath. Patient stated that he did see his PCP and GI in the last week and patient was some given some antibiotics but patient abdominal pain persisted.. Because of this abdominal pain, EMS was called and patient was found to be hypotensive so patient was brought to the ER. Initial lab work done in the ER showed WBC 9.6, hemoglobin 16, platelet count 445, sodium 137 potassium 3.3, BUN 5, creatinine 0.87, glucose 119, calcium 10, magnesium 2, AST 23, ALT 13, troponin 0.012 X-ray acute normal series done showed small air-fluid level within the right side of the colon suggesting diarrheal state Patient admitted to internal medicine service 03/03. Patient seen and examined. Still complaining abdominal pain and diarrhea. Patient very frustrated as all tests are coming back inconclusive. Stool culture pending. REVIEW OF SYSTEMS: CONSTITUTIONAL: No fever, no malaise,. CARDIOVASCULAR: No chest pain, no palpitations, no syncope. PULMONARY: No shortness of breath, no cough, GASTROINTESTINAL: As mentioned above NEUROLOGICAL: No headaches, no weakness, PHYSICAL EXAMINATION: GENERAL: The patient is alert and oriented x3, not in any acute distress. Well developed, well nourished. HEENT: Pupils are round and equally reacting to light. EOMI. No scleral icterus. No conjunctival pallor. Normocephalic, atraumatic. No pharyngeal erythema. No thyromegaly. CARDIOVASCULAR: S1 and S2 present. No murmurs, rubs, or gallops. PULMONARY: Chest is clear to auscultation, no wheezing or crackles. ABDOMEN: Soft, nontender, nondistended, normoactive bowel sounds. No palpable organomegaly. MUSCULOSKELETAL: No joint swelling or deformity. EXTREMITIES: No cyanosis, clubbing, or pedal edema. NEUROLOGICAL: Gross neurological examination did not reveal any focal deficits. SKIN: No rashes. Assessment and plan Abdominal pain Nausea and vomiting Coronary arteries history of stent placement SVT with history of radiofrequency ablation Hypertension Hyperlipidemia GERD History of duodenal ulcer/chronic duodenal stricture. Chronic back pain Chronic headache IBS Anxiety Monitor vital signs Monitor CBC Monitor CMP Continue antiemetics Continue IV fluids Ordered stool culture and stool for C. difficile Continue Protonix and Carafate Potassium replacement ordered Results of CT abdominal pelvis with contrast noted Hold blood pressure medications for now Surgery consulted Labs and medication were reviewed.. Continue same treatment. Continue with symptomatic treatment. Resume home medication. Monitor labs and vitals. DVT and GI prophylaxis. Further recommendations as per clinical course of the patient Dictation was produced using [employer] dictation software. please excuse any grammatical, word or spelling errors. Objective - Vital Signs Vital signs: Vital Signs Temp 97.5 F L 03/03/24 07:00 Pulse 65 03/03/24 07:00 Resp 16 03/03/24 07:00 BP 138/75 03/03/24 07:00 Pulse Ox 97 03/03/24 07:00 FiO2 Intake & Output 03/02/24 03/03/24 03/03/24 18:59 06:59 18:59 Intake Total 2125 Output Total 950 Balance 1175 Intake: Intake, IV Titration 1275 Amount Sodium Chloride 0.9% 1, 1275 000 ml @ 75 mls/hr IV . [id number] [facility] Rx#:[id number] Oral 850 Output: Urine 950 Other: Voiding Method Urinal - Labs CBC & Chem 7: 03/03/24 02:45 03/03/24 02:45 Labs: Abnormal Lab Results - Last 24 Hours (Table) 03/02/24 03/03/24 03/03/24 Range/Units 10:46 02:45 02:45 RBC 3.73 L (4.30-5.90) m/uL Hgb 11.3 L (13.0-17.5) gm/dL Hct 34.4 L (39.0-53.0) % Sodium 136 L (137-145) mmol/L Potassium 3.0 L (3.5-5.1) mmol/L BUN 5 L 4 L (9-20) mg/dL Glucose 109 H 126 H (74-99) mg/dL Calcium 7.7 L (8.4-10.2) mg/dL C-Reactive Protein 2.1 H (<1.0) mg/dL Total Protein 5.7 L 5.1 L (6.3-8.2) g/dL Albumin 3.3 L 2.8 L (3.5-5.0) g/dL
--- NOTE | 2024-03-03 12:58 | P.GSCN ---
History of Present Illness Consult date: 03/03/24 History of present illness: CHIEF COMPLAINT: Abdominal pain HISTORY OF PRESENT ILLNESS: This is a 73-year-old male who presents to the hospital with complaints of abdominal pain with nausea vomiting and diarrhea. Patient reports this is his fourth time coming to the ER since December for the similar problems. Patient reports he follows up with Dr. Subramanian for his GI issues. He reports seeing her last Thursday and was given Reglan for the nausea and vomiting. Patient then also followed up with his PCP who was planning on starting him on antibiotics for possible colitis. Patient did not start the antibiotics. He reports that he could not take the pills due to nausea and vomiting. Patient does have a history of irritable bowel syndrome. He had a CT scan pelvis which was negative. He denies any fever chills or sweats. Patient reports last EGD and colonoscopy were in 2022. EGD had reported esophagitis. Surgical service consulted in regards to abdominal pain. Patient denies any sick contacts. Denies any recent traveling. Abdominal x-ray had reported possible enteritis. PAST MEDICAL HISTORY: Hiatal hernia, coronary Artery Disease (CAD), Chest Pain / Angina, Eye Disorder, GERD/Reflux, Hyperlipidemia, Hypertension, Myocardial Infarction (LA), Os teoarthritis (OA), recent admission for nausea/vomiting/diarrhea, Neck pain, SVT with ablation, duodenal ulcers, chronic duodenal stricture, bilateral glaucoma, sinusitis, migraines, anemia, esophagitis,hiatal hernia, chronic back pain, past fx ribs/sternum. History of agent orange exposure PAST SURGICAL HISTORY: Appendectomy and cholecystectomy MEDICATIONS: See below ALLERGIES: See below SOCIAL HISTORY: No illicit drug use. REVIEW OF SYSTEMS: CONSTITUTIONAL: Denies fever or chills. HEENT: Denies blurred vision, vision changes, or eye pain. Denies hemoptysis CARDIOVASCULAR: Denies chest pain or pressure. RESPIRATORY: No shortness of breath. GASTROINTESTINAL: See HPI for pertinent findings HEMATOLOGIC: Denies bleeding disorders. GENITOURINARY: Denies any blood in urine or increased urinary frequency. SKIN: Denies pruitis. Denies rash. PHYSICAL EXAM: VITAL SIGNS: Reviewed GENERAL: Well-developed in no acute distress. HEENT: No sclera icterus. Extraocular movements grossly intact. Moist buccal mucosa. Head is atraumatic, normocephalic. No nasal drainage. ABDOMEN: Soft. Nondistended. Mild discomfort with palpation right lower abdomen NEUROLOGIC: Alert and oriented. Cranial nerves II through XII grossly intact. LABORATORY DATA: WBC is 5.3 Hgb 11.3 platelets 305 Sodium 136 potassium 3.0 creatinine 0.70 IMAGING: Acute abdominal series reports small air-fluid levels within the right side of the colon suggesting liquid stools/diarrhea consider enteritis. No free air or bowel obstruction. CT scan abdomen and pelvis reports peripelvic cyst. No acute process. ASSESSMENT: 1. Recurrent abdominal pain with nausea vomiting and diarrhea 2. History of irritable bowel syndrome 3. History of hiatal hernia 4. Hypokalemia PLAN: -No surgical intervention planned -Recommend outpatient follow-up -Continue regular diet -Potassium being replaced per medicine service -Continue supportive care Physician Novelties Sales Representative note has been reviewed by physician. Signing provider agrees with the documented findings, assessment, and plan of care. Past Medical History Past Medical History: Coronary Artery Disease (CAD), Chest Pain / Angina, Eye Disorder, GERD/Reflux, Hyperlipidemia, Hypertension, Myocardial Infarction (LA), Osteoarthritis (OA) Additional Past Medical History / Comment(s): recent admission for nausea/vomiting/diarrhea, Neck pain, SVT with ablation, duodenal ulcers, chronic duodenal stricture, bilateral glaucoma, sinusitis, migraines, anemia, esophagitis,hiatal hernia, chronic back pain, past fx ribs/sternum Last Myocardial Infarction Date:: 1999 History of Any Multi-Drug Resistant Organisms: None Reported Past Surgical History: Cardiac Ablation, Cholecystectomy, Heart Catheterization With Stent Additional Past Surgical History / Comment(s): stent bilateral eyes 03/2018, PCI with 3 stents, sinus surgery, cataracts bilaterally with lens implants, EGDs/colonoscopies, Past Anesthesia/Blood Transfusion Reactions: No Reported Reaction Additional Past Anesthesia/Blood Transfusion Reaction / Comm: Pt has had past multiple transfusions without reaction. Date of Last Stent Placement:: 1999 Past Psychological History: Anxiety Additional Psychological History / Comment(s): Pt resides with his spouse. He served in the [employer]. He is independent. Smoking Status: Never smoker Past Alcohol Use History: None Reported Additional Past Alcohol Use History / Comment(s): Patient was a smoker for only a few years in his 40s. Past Drug Use History: None Reported - Past Family History Father Additional Family Medical History / Comment(s): Father at the age of 68yrs from a ruptured aortic aneurysm. Mother Additional Family Medical History / Comment(s): Mother lived into her 80's. Brother(s) Family Medical History: Cancer Additional Family Medical History / Comment(s): The patient had 3 brothers. One from colon cancer with metastatic disease to the brain. One brother at age 79 from a myocardial infarction. He has 1 brother that is alive with history of skin cancer and diabetes. Sister(s) Additional Family Medical History / Comment(s): The patient is a total of 3 sisters. One in her 80s from myocardial infarction. One sister at age 58 from coronary artery disease and also had a valvular disorder. Patient has one sister alive with diabetes and multiple other medical conditions. Patient has 2 sons and 1 daughter with no major medical problems. Medications and Allergies Home Medications Medication Instructions Recorded Confirmed Type Acetaminophen [Tylenol 8 Hour] 650 mg PO Q4H PRN 01/25/24 03/01/24 History Amitriptyline HCl [Elavil] 12.5 mg PO HS 01/25/24 03/01/24 History Betamethasone Dipropionate 1 applic TOPICAL DAILY PRN 01/25/24 03/01/24 History [Diprolene 0.05% Ointment] Brimonidine Tartrate/Timolol 1 drop BOTH EYES BID 01/25/24 03/01/24 History [Brimonidine-Timolol 0.2%-0.5%] Butalb/Acetaminophen/Caffeine 1 cap PO Q4HR PRN 01/25/24 03/01/24 History [Fioricet 50-300-40 mg Capsule] Cholecalciferol [Vitamin D3 (25 25 mcg PO DAILY 01/25/24 03/01/24 History Mcg = 1000 Iu)] Clindamycin Gel [Cleocin T 1% Gel] 1 applic TOPICAL BID PRN 01/25/24 03/01/24 History Clobetasol Propionate/Emoll 1 applic TOPICAL BID PRN 01/25/24 03/01/24 History [Clobetasol Emulsion 0.05% Foam] Diclofenac Sodium Gel [Voltaren 1% 2 gm TOPICAL QID PRN 01/25/24 03/01/24 History Gel] Dicyclomine [Bentyl] 10 mg PO TID 01/25/24 03/01/24 History Escitalopram [Lexapro] 10 mg PO DAILY 01/25/24 03/01/24 History Furosemide [Lasix] 20 mg PO DAILY 01/25/24 03/01/24 History Gabapentin [Neurontin] 800 mg PO TID 01/25/24 03/01/24 History Ketoconazole 2% Shampoo [Nizoral] 1 applic TOPICAL DAILY PRN 01/25/24 03/01/24 History Lidocaine 5% Patch [Lidoderm 5% 1 patch TOPICAL DAILY PRN 01/25/24 03/01/24 History Patch] Losartan [Cozaar] 50 mg PO DAILY 01/25/24 03/01/24 History Metoprolol Tartrate [Lopressor] 25 mg PO BID 01/25/24 03/01/24 History Montelukast [Singulair] 10 mg PO HS 01/25/24 03/01/24 History Nystatin/Triamcin 1 applic TOPICAL BID PRN 01/25/24 03/01/24 History [Nystatin-Triamcinolone Cream] Ondansetron Odt [Zofran ODT] 4 mg PO Q4H PRN 01/25/24 03/01/24 History Pantoprazole [Protonix] 40 mg PO BID 01/25/24 03/01/24 History Potassium Chloride 20 meq PO DAILY PRN 01/25/24 03/01/24 History Simvastatin [Zocor] 40 mg PO HS 01/25/24 03/01/24 History Sodium Chloride Tab 1 gm PO BID 01/25/24 03/01/24 History Sucralfate [Carafate] 1 gm PO ACHS 01/25/24 03/01/24 History Testosterone Cypionate 50 mg IM Q14D 01/25/24 03/01/24 History [Depo-Testosterone] diazePAM [Valium] 5 mg PO HS PRN 01/25/24 03/01/24 History tadalafiL 10 mg PO DAILY 01/25/24 03/01/24 History Cholestyramine (with Sugar) 4 gm PO BID@1000,1800 PRN #30 02/03/24 03/01/24 Rx [Questran Packet] packet Loperamide [Imodium] 2 mg PO QID PRN #30 cap 02/03/24 03/01/24 Rx Metoclopramide [Reglan] 5 mg PO TID PRN #20 tab 02/03/24 03/01/24 Rx Calcium Carbonate [Tums] 1,000 mg PO Q4HR PRN #0 tab 02/16/24 03/01/24 Rx Ciprofloxacin HCl [Cipro] 500 mg PO DIRECTED 03/01/24 03/01/24 History Mesalamine [Asacol Hd] 800 mg PO TID 03/01/24 03/01/24 History metroNIDAZOLE [Flagyl] 500 mg PO DIRECTED 03/01/24 03/01/24 History Allergies Allergy/AdvReac Type Severity Reaction Status Date / Time atorvastatin [From Lipitor] AdvReac MUSCLE Verified 03/01/24 19:22 CRAMPS hydrochlorothiazide AdvReac SEE COMMENT Verified 03/01/24 19:22 ropinirole [From Requip] AdvReac Hallucinati Verified 03/01/24 19:22 ons scopolamine AdvReac Hallucinati Verified 03/01/24 19:22 ons Surgical - Exam Vital Signs Temp Pulse Resp BP Pulse Ox 98 F 76 18 114/75 97 03/01/24 15:10 03/01/24 15:10 03/01/24 15:10 03/01/24 15:10 03/01/24 15:10 Results - Labs 03/03/24 02:45 03/03/24 02:45 Abnormal Lab Results - Last 24 Hours (Table) 03/02/24 03/03/24 03/03/24 Range/Units 10:46 02:45 02:45 RBC 3.73 L (4.30-5.90) m/uL Hgb 11.3 L (13.0-17.5) gm/dL Hct 34.4 L (39.0-53.0) % Sodium 136 L (137-145) mmol/L Potassium 3.0 L (3.5-5.1) mmol/L BUN 5 L 4 L (9-20) mg/dL Glucose 109 H 126 H (74-99) mg/dL Calcium 7.7 L (8.4-10.2) mg/dL C-Reactive Protein 2.1 H (<1.0) mg/dL Total Protein 5.7 L 5.1 L (6.3-8.2) g/dL Albumin 3.3 L 2.8 L (3.5-5.0) g/dL Diabetes panel 03/02/24 03/03/24 Range/Units 10:46 02:45 Sodium 137 136 L (137-145) mmol/L Potassium 3.9 3.0 L (3.5-5.1) mmol/L Chloride 104 106 (98-107) mmol/L Carbon Dioxide 24 24 (22-30) mmol/L BUN 5 L 4 L (9-20) mg/dL Creatinine 0.81 0.70 (0.66-1.25) mg/dL Glucose 109 H 126 H (74-99) mg/dL Calcium 8.4 7.7 L (8.4-10.2) mg/dL AST 18 19 (17-59) U/L ALT 10 9 (4-49) U/L Alkaline Phosphatase 91 70 (38-126) U/L Total Protein 5.7 L 5.1 L (6.3-8.2) g/dL Albumin 3.3 L 2.8 L (3.5-5.0) g/dL Calcium panel 03/02/24 03/03/24 Range/Units 10:46 02:45 Calcium 8.4 7.7 L (8.4-10.2) mg/dL Albumin 3.3 L 2.8 L (3.5-5.0) g/dL Pituitary panel 03/02/24 03/03/24 Range/Units 10:46 02:45 Sodium 137 136 L (137-145) mmol/L Potassium 3.9 3.0 L (3.5-5.1) mmol/L Chloride 104 106 (98-107) mmol/L Carbon Dioxide 24 24 (22-30) mmol/L BUN 5 L 4 L (9-20) mg/dL Creatinine 0.81 0.70 (0.66-1.25) mg/dL Glucose 109 H 126 H (74-99) mg/dL Calcium 8.4 7.7 L (8.4-10.2) mg/dL Adrenal panel 03/02/24 03/03/24 Range/Units 10:46 02:45 Sodium 137 136 L (137-145) mmol/L Potassium 3.9 3.0 L (3.5-5.1) mmol/L Chloride 104 106 (98-107) mmol/L Carbon Dioxide 24 24 (22-30) mmol/L BUN 5 L 4 L (9-20) mg/dL Creatinine 0.81 0.70 (0.66-1.25) mg/dL Glucose 109 H 126 H (74-99) mg/dL Calcium 8.4 7.7 L (8.4-10.2) mg/dL Total Bilirubin 0.7 0.4 (0.2-1.3) mg/dL AST 18 19 (17-59) U/L ALT 10 9 (4-49) U/L Alkaline Phosphatase 91 70 (38-126) U/L Total Protein 5.7 L 5.1 L (6.3-8.2) g/dL Albumin 3.3 L 2.8 L (3.5-5.0) g/dL
[2024-03-03] MEDS: POTASSIUM CHLORIDE 10 MEQ in WATER FOR INJECTION 1 100ML.BAG IVPB SCH (15:23)
--- NOTE | 2024-03-04 08:45 | P.CONS ---
History of Present Illness - Reason for Consult Consult date: 03/03/24 Diarrhea, abdominal pain Requesting physician: Renny Gentile - Chief Complaint Vomiting and diarrhea x weeks - History of Present Illness Patient is a 73-year-old male with a past medical history significant for coronary artery disease hypertension hyperlipidemia ID gastric reflux presenting to the hospital 2 days ago for evaluation of weakness and low blood pressure as apparently the patient blood pressure dropped to 50 systolic patient was been complaining of vomiting and diarrhea that apparently has been going on since January 2024 and the patient mention has been admitted to the hospital 3 times since January 25, 2024 and the patient has been evaluated by GI during that admission's however he did not have any EGD or colonoscopy patient apparently has been evaluated in the outpatient setting by Dr. Hickman and has been treated with Reglan however patient did not have any symptoms improvement patient has been complaining of multiple episodes of vomiting unable to keep anything down and also have multiple episodes of loose stools patient denies any blood or mucus in the stool, patient did not mention any new antibiotic exposure before his symptoms started, with these symptoms patient has been evaluated on presentation to the hospital patient was afebrile and no fever have been recorded subsequently patient was not tachycardic hypotensive or hypoxic with a blood pressure on presentation to the hospital was 158/82 patient did have a normal white count creatinine 0.81 electrolytes normal liver enzymes normal stool studies currently pending patient did have a acute abdominal series no acute cardiopulmonary process small air-fluid levels within the right side of the colon suggestive liquid stools diarrheal state consider enteritis subsequently did have a CT of abdominal pelvis no suspicious radiographic changes to account for pain and did not mention any evidence of colitis or enteritis, infectious disease was consulted today concerning for diarrhea abdominal pain Review of Systems Positive point and negatives has been mentioned in the HPI, complete review of systems was performed and all other systems are negative Past Medical History Past Medical History: Coronary Artery Disease (CAD), Chest Pain / Angina, Eye Disorder, GERD/Reflux, Hyperlipidemia, Hypertension, Myocardial Infarction (ID), Osteoarthritis (OA) Additional Past Medical History / Comment(s): recent admission for nausea/vomiting/diarrhea, Neck pain, SVT with ablation, duodenal ulcers, chronic duodenal stricture, bilateral glaucoma, sinusitis, migraines, anemia, esophag itis,hiatal hernia, chronic back pain, past fx ribs/sternum Last Myocardial Infarction Date:: 1999 History of Any Multi-Drug Resistant Organisms: None Reported Past Surgical History: Cardiac Ablation, Cholecystectomy, Heart Catheterization With Stent Additional Past Surgical History / Comment(s): stent bilateral eyes 03/2018, PCI with 3 stents, sinus surgery, cataracts bilaterally with lens implants, EGDs/colonoscopies, Past Anesthesia/Blood Transfusion Reactions: No Reported Reaction Additional Past Anesthesia/Blood Transfusion Reaction / Comm: Pt has had past multiple transfusions without reaction. Date of Last Stent Placement:: 1999 Past Psychological History: Anxiety Additional Psychological History / Comment(s): Pt resides with his spouse. He served in the [employer]. He is independent. Smoking Status: Never smoker Past Alcohol Use History: None Reported Additional Past Alcohol Use History / Comment(s): Patient was a smoker for only a few years in his 40s. Past Drug Use History: None Reported - Past Family History Father Additional Family Medical History / Comment(s): Father at the age of 68yrs from a ruptured aortic aneurysm. Mother Additional Family Medical History / Comment(s): Mother lived into her 80's. Brother(s) Family Medical History: Cancer Additional Family Medical History / Comment(s): The patient had 3 brothers. One from colon cancer with metastatic disease to the brain. One brother at age 79 from a myocardial infarction. He has 1 brother that is alive with history of skin cancer and diabetes. Sister(s) Additional Family Medical History / Comment(s): The patient is a total of 3 sisters. One in her 80s from myocardial infarction. One sister at age 58 from coronary artery disease and also had a valvular disorder. Patient has one sister alive with diabetes and multiple other medical conditions. Patient has 2 sons and 1 daughter with no major medical problems. Medications and Allergies Home Medications Medication Instructions Recorded Confirmed Type Acetaminophen [Tylenol 8 Hour] 650 mg PO Q4H PRN 01/25/24 03/01/24 History Amitriptyline HCl [Elavil] 12.5 mg PO HS 01/25/24 03/01/24 History Betamethasone Dipropionate 1 applic TOPICAL DAILY PRN 01/25/24 03/01/24 History [Diprolene 0.05% Ointment] Brimonidine Tartrate/Timolol 1 drop BOTH EYES BID 01/25/24 03/01/24 History [Brimonidine-Timolol 0.2%-0.5%] Butalb/Acetaminophen/Caffeine 1 cap PO Q4HR PRN 01/25/24 03/01/24 History [Fioricet 50-300-40 mg Capsule] Cholecalciferol [Vitamin D3 (25 25 mcg PO DAILY 01/25/24 03/01/24 History Mcg = 1000 Iu)] Clindamycin Gel [Cleocin T 1% Gel] 1 applic TOPICAL BID PRN 01/25/24 03/01/24 History Clobetasol Propionate/Emoll 1 applic TOPICAL BID PRN 01/25/24 03/01/24 History [Clobetasol Emulsion 0.05% Foam] Diclofenac Sodium Gel [Voltaren 1% 2 gm TOPICAL QID PRN 01/25/24 03/01/24 History Gel] Dicyclomine [Bentyl] 10 mg PO TID 01/25/24 03/01/24 History Escitalopram [Lexapro] 10 mg PO DAILY 01/25/24 03/01/24 History Furosemide [Lasix] 20 mg PO DAILY 01/25/24 03/01/24 History Gabapentin [Neurontin] 800 mg PO TID 01/25/24 03/01/24 History Ketoconazole 2% Shampoo [Nizoral] 1 applic TOPICAL DAILY PRN 01/25/24 03/01/24 History Lidocaine 5% Patch [Lidoderm 5% 1 patch TOPICAL DAILY PRN 01/25/24 03/01/24 History Patch] Losartan [Cozaar] 50 mg PO DAILY 01/25/24 03/01/24 History Metoprolol Tartrate [Lopressor] 25 mg PO BID 01/25/24 03/01/24 History Montelukast [Singulair] 10 mg PO HS 01/25/24 03/01/24 History Nystatin/Triamcin 1 applic TOPICAL BID PRN 01/25/24 03/01/24 History [Nystatin-Triamcinolone Cream] Ondansetron Odt [Zofran ODT] 4 mg PO Q4H PRN 01/25/24 03/01/24 History Pantoprazole [Protonix] 40 mg PO BID 01/25/24 03/01/24 History Potassium Chloride 20 meq PO DAILY PRN 01/25/24 03/01/24 History Simvastatin [Zocor] 40 mg PO HS 01/25/24 03/01/24 History Sodium Chloride Tab 1 gm PO BID 01/25/24 03/01/24 History Sucralfate [Carafate] 1 gm PO ACHS 01/25/24 03/01/24 History Testosterone Cypionate 50 mg IM Q14D 01/25/24 03/01/24 History [Depo-Testosterone] diazePAM [Valium] 5 mg PO HS PRN 01/25/24 03/01/24 History tadalafiL 10 mg PO DAILY 01/25/24 03/01/24 History Cholestyramine (with Sugar) 4 gm PO BID@1000,1800 PRN #30 02/03/24 03/01/24 Rx [Questran Packet] packet Loperamide [Imodium] 2 mg PO QID PRN #30 cap 02/03/24 03/01/24 Rx Metoclopramide [Reglan] 5 mg PO TID PRN #20 tab 02/03/24 03/01/24 Rx Calcium Carbonate [Tums] 1,000 mg PO Q4HR PRN #0 tab 02/16/24 03/01/24 Rx Ciprofloxacin HCl [Cipro] 500 mg PO DIRECTED 03/01/24 03/01/24 History Mesalamine [Asacol Hd] 800 mg PO TID 03/01/24 03/01/24 History metroNIDAZOLE [Flagyl] 500 mg PO DIRECTED 03/01/24 03/01/24 History Allergies Allergy/AdvReac Type Severity Reaction Status Date / Time atorvastatin [From Lipitor] AdvReac MUSCLE Verified 03/01/24 19:22 CRAMPS hydrochlorothiazide AdvReac SEE COMMENT Verified 03/01/24 19:22 ropinirole [From Requip] AdvReac Hallucinati Verified 03/01/24 19:22 ons scopolamine AdvReac Hallucinati Verified 03/01/24 19:22 ons Physical Exam Vitals: Vital Signs Temp Pulse Resp BP Pulse Ox 03/03/24 07:00 97.5 F L 65 16 138/75 97 03/03/24 01:34 98.1 F 68 12 102/68 96 03/02/24 20:00 98.0 F 59 L 16 93/50 98 03/02/24 13:45 97.4 F L 70 17 130/81 98 Intake and Output 03/02/24 03/03/24 03/03/24 22:59 06:59 14:59 Intake Total 1175 950 Output Total 500 450 Balance 675 500 Intake: Intake, IV Titration 675 600 Amount Sodium Chloride 0.9% 1, 675 600 000 ml @ 75 mls/hr IV . [id number] [facility] Rx#:[id number] Oral 500 350 Output: Urine 500 450 Other: Voiding Method Urinal Urinal Urinal GENERAL DESCRIPTION: Elderly male lying in bed, no distress. No tachypnea or accessory muscle of respiration use. HEENT: Shows Pallor , no scleral icterus. Oral mucous membrane is dry. NECK: Trachea central, no thyromegaly. LUNGS: Unlabored breathing. Clear to auscultation anteriorly. No wheeze or crackle. HEART: S1, S2, regular rate and rhythm. No loud murmur ABDOMEN: Soft, no tenderness , guarding or rigidity, no organomegaly EXTREMITIES: No edema of feet. SKIN: No rash, no masses palpable. NEUROLOGICAL: The patient is awake, alert, oriented x3, mood and affect normal. Results CBC & Chem 7: 03/03/24 02:45 03/03/24 02:45 Labs: Abnormal Lab Results - Last 24 Hours (Table) 03/02/24 03/03/24 03/03/24 Range/Units 10:46 02:45 02:45 RBC 3.73 L (4.30-5.90) m/uL Hgb 11.3 L (13.0-17.5) gm/dL Hct 34.4 L (39.0-53.0) % Sodium 136 L (137-145) mmol/L Potassium 3.0 L (3.5-5.1) mmol/L BUN 5 L 4 L (9-20) mg/dL Glucose 109 H 126 H (74-99) mg/dL Calcium 7.7 L (8.4-10.2) mg/dL C-Reactive Protein 2.1 H (<1.0) mg/dL Total Protein 5.7 L 5.1 L (6.3-8.2) g/dL Albumin 3.3 L 2.8 L (3.5-5.0) g/dL Assessment and Plan (1) Nausea vomiting and diarrhea Current Visit: Yes Status: Acute Code(s): R11.2 - NAUSEA WITH VOMITING, UNSPECIFIED; R19.7 - DIARRHEA, UNSPECIFIED SNOMED Code(s): 3556017 Plan: 1patient presented to hospital for a low blood pressure also has been complaining of intractable nausea vomiting and diarrhea and this patient did have a normal blood pressure on presentation to the hospital is not running any fever white count is normal liver enzymes are normal he did have a CT of abdominal pelvis that has been negative for any evidence of colitis or enteritis all these features will make infectious colitis to be less likely 2-we will check a stool culture stool for C. difficile, cryptosporidium antigen to complete the workup 3-Questran has been added for symptomatic relief 4-patient benefit from EGD and colonoscopy keeping in mind chronicity of his symptoms to better define underlying Pathology General Surgery is already on the case We will follow on clinical condition and cultures to further adjust medication if needed Thank you for this consultation we will follow the patient along with you Dictation was produced using [employer] dictation software. please excuse any grammatical, word or spelling errors. Time with Patient: Greater than 30
[2024-03-04 09:41] LABS: Basophils % (A) 1 %; Eosinophils # (A) 0.3 k/uL (0-0.7); Eosinophils % (A) 5 %; HCT 36.8 % (39.0-53.0); HGB 12.5 gm/dL (13.0-17.5); Lymphocytes # (A) 1.7 k/uL (1.0-4.8); Lymphocytes % (A) 24 %; MCH 30.8 pg (25.0-35.0); MCHC 33.8 g/dL (31.0-37.0); Mean Platelet Volume 6.9; Monocytes # (A) 0.6 k/uL (0-1.0); Monocytes % (A) 8 %; Neutrophils # (A) 4.5 k/uL (1.3-7.7); Neutrophils % (A) 62 %; Platelet Count 326 k/uL (150-450); RBC 4.05 m/uL (4.30-5.90); RDW 13.4 % (11.5-15.5); WBC 7.3 k/uL (3.8-10.6)
[2024-03-04 09:50] LABS: ALT 9 U/L (4-49); AST 24 U/L (17-59); African American GFR (CKD) >90 (>60 ml/min/1.73 sqM); Albumin 2.9 g/dL (3.5-5.0); Alkaline Phosphatase 76 U/L (38-126); Anion Gap 3 mmol/L; Blood Urea Nitrogen <2 mg/dL (9-20); Calcium 7.9 mg/dL (8.4-10.2); Carbon Dioxide 26 mmol/L (22-30); Chloride 109 mmol/L (98-107); Glucose 111 mg/dL (74-99); Non-African American GFR(CKD) >90 (>60 ml/min/1.73 sqM); Potassium 3.2 mmol/L (3.5-5.1); Sodium 138 mmol/L (137-145); Total Bilirubin 0.3 mg/dL (0.2-1.3); Total Protein 5.3 g/dL (6.3-8.2)
--- NOTE | 2024-03-04 12:19 | P.PN ---
Subjective Progress Note Date: 03/04/24 SURGICAL PROGRESS NOTE CHIEF COMPLAINT: Nausea vomiting diarrhea HISTORY OF PRESENT ILLNESS: Patient reports he is feeling better today. He has had no further vomiting or diarrhea today. His stools are improving. He denies any abdominal pain. He is tolerating regular diet. He is complaining of thru sh. Afebrile. WBC 7.3. Stool for C. difficile negative. CT scan abdomen on admission no acute process. Dr. Hogan is covering for Dr. Daly PHYSICAL EXAM: VITAL SIGNS: Reviewed. GENERAL: Well-developed in no acute distress. ABDOMEN: Soft. Nondistended. Nontender. NEUROLOGIC: Alert and oriented. Cranial nerves II through XII grossly intact. ASSESSMENT: 1. Recurrent abdominal pain with nausea vomiting and diarrhea 2. History of irritable bowel syndrome 3. History of hiatal hernia 4. Hypokalemia PLAN: -No surgical intervention planned -Recommend outpatient follow-up for possible EGD and colonoscopy -Continue regular diet -Continue supportive care Physician Interventional Neuroradiologist note has been reviewed by physician. Signing provider agrees with the documented findings, assessment, and plan of care. Objective - Vital Signs Vital signs: Vital Signs Temp 97.7 F 03/04/24 02:00 Pulse 61 03/04/24 02:00 Resp 12 03/04/24 02:00 BP 125/66 03/04/24 02:00 Pulse Ox 97 03/04/24 02:00 FiO2 Intake & Output 03/03/24 03/04/24 03/04/24 18:59 06:59 18:59 Intake Total 900 2350 Output Total 200 450 Balance 700 1900 Intake: Intake, IV Titration 600 1200 Amount Sodium Chloride 0.9% 1, 600 1200 000 ml @ 75 mls/hr IV . [id number] [facility] Rx#:[id number] Oral 300 1150 Output: Urine 200 450 Other: Voiding Method Urinal Urinal # Voids 2 3 # Bowel Movements 1 - Labs CBC & Chem 7: 03/04/24 09:22 03/04/24 09:22 Labs: Abnormal Lab Results - Last 24 Hours (Table) 03/04/24 03/04/24 Range/Units 09:22 09:22 RBC 4.05 L (4.30-5.90) m/uL Hgb 12.5 L (13.0-17.5) gm/dL Hct 36.8 L (39.0-53.0) % Potassium 3.2 L (3.5-5.1) mmol/L Chloride 109 H (98-107) mmol/L BUN <2 L (9-20) mg/dL Glucose 111 H (74-99) mg/dL Calcium 7.9 L (8.4-10.2) mg/dL Total Protein 5.3 L (6.3-8.2) g/dL Albumin 2.9 L (3.5-5.0) g/dL
[2024-03-04 12:40] LABS: Cryptosporidium Antigen Negative (Negative)
--- NOTE | 2024-03-04 13:07 | P.PN ---
Subjective Progress Note Date: 03/04/24 patient 73-year-old gentleman with past medical history significant for coronary artery disease with stent to LAD and diagonal, hypertension, IBS, SVT status post ablation in 2011, hiatal hernia, history of ulcer who presented to the ER because of nausea, vomiting abdominal pain , diarrhea. Patient has been admitted couple of times in the last month with similar complaints. Patient has seen GI in the history of chronic diarrhea and triple bowel syndrome and normally takes Protonix at home. Patient did that he was all right yesterday morning when he started having again nausea vomiting and diarrhea. Patient was also having generalized abdominal pain, cramping in nature, mostly on the right side, nonradiating, no aggravating or relieving factors of his abdominal pain. Patient also complained of nausea and vomiting. There was no complaint of fever or chills. There was no complaint of orthopnea or PND. Patient denies any chest pain or shortness of breath. Patient stated that he did see his PCP and GI in the last week and patient was some given some antibiotics but patient abdominal pain persisted.. Because of this abdominal pain, EMS was called and patient was found to be hypotensive so patient was brought to the ER. Initial lab work done in the ER showed WBC 9.6, hemoglobin 16, platelet count 445, sodium 137 potassium 3.3, BUN 5, creatinine 0.87, glucose 119, calcium 10, magnesium 2, AST 23, ALT 13, troponin 0.012 X-ray acute normal series done showed small air-fluid level within the right side of the colon suggesting diarrheal state Patient admitted to internal medicine service 03/03. Patient seen and examined. Still complaining abdominal pain and diarrhea. Patient very frustrated as all tests are coming back inconclusive. Stool culture pending. 03/04. Patient seen and examined. States he feels better compared to yesterday. Diarrhea has improved. Complaining of difficulty swallowing, white plaques seen in the oral cavity REVIEW OF SYSTEMS: CONSTITUTIONAL: No fever, no malaise,. CARDIOVASCULAR: No chest pain, no palpitations, no syncope. PULMONARY: No shortness of breath, no cough, GASTROINTESTINAL: As mentioned above NEUROLOGICAL: No headaches, no weakness, PHYSICAL EXAMINATION: GENERAL: The patient is alert and oriented x3, not in any acute distress. Well developed, well nourished. HEENT: Pupils are round and equally reacting to light. EOMI. No scleral icterus. No conjunctival pallor. Normocephalic, atraumatic. No pharyngeal erythema. No thyromegaly. CARDIOVASCULAR: S1 and S2 present. No murmurs, rubs, or gallops. PULMONARY: Chest is clear to auscultation, no wheezing or crackles. ABDOMEN: Soft, nontender, nondistended, normoactive bowel sounds. No palpable organomegaly. MUSCULOSKELETAL: No joint swelling or deformity. EXTREMITIES: No cyanosis, clubbing, or pedal edema. NEUROLOGICAL: Gross neurological examination did not reveal any focal deficits. SKIN: No rashes. Assessment and plan Abdominal pain Nausea and vomiting Oral candidiasis Coronary arteries history of stent placement SVT with history of radiofrequency ablation Hypertension Hyperlipidemia GERD History of duodenal ulcer/chronic duodenal stricture. Chronic back pain Chronic headache IBS Anxiety Monitor vital signs Monitor CBC Monitor CMP Continue antiemetics Continue IV fluids Stool for C. difficile negative Stool culture pending Ordered nystatin Continue Protonix and Carafate Potassium replacement ordered Results of CT abdominal pelvis with contrast noted Hold blood pressure medications for now Surgery following ID following Labs and medication were reviewed.. Continue same treatment. Continue with symptomatic treatment. Resume home medication. Monitor labs and vitals. DVT and GI prophylaxis. Further recommendations as per clinical course of the patient Dictation was produced using [employer] dictation software. please excuse any g rammatical, word or spelling errors. Objective - Vital Signs Vital signs: Vital Signs Temp 97.7 F 03/04/24 02:00 Pulse 61 03/04/24 02:00 Resp 12 03/04/24 02:00 BP 125/66 03/04/24 02:00 Pulse Ox 97 03/04/24 02:00 FiO2 Intake & Output 03/03/24 03/04/24 03/04/24 18:59 06:59 18:59 Intake Total 900 2350 Output Total 200 450 Balance 700 1900 Intake: Intake, IV Titration 600 1200 Amount Sodium Chloride 0.9% 1, 600 1200 000 ml @ 75 mls/hr IV . [id number] [facility] Rx#:[id number] Oral 300 1150 Output: Urine 200 450 Other: Voiding Method Urinal Urinal # Voids 2 3 # Bowel Movements 1 - Labs CBC & Chem 7: 03/04/24 09:22 03/04/24 09:22
--- NOTE | 2024-03-04 14:16 | P.CRDCN ---
History of Present Illness History of present illness: HISTORY OF PRESENT ILLNESS: This is a 73-year-old male with a past medical history significant for SVT, coronary artery disease with previous stenting, hypertension, and hyperlipidemia. Patient follows in the office with Dr. Goode. We have been asked to see the patient in consultation for hypotension. Patient examined at the bedside. Patient initially presented to the hospital with a chief complaint of nausea, vomiting, and diarrhea. Patient did have 1 blood pressure on the lower side at 93/50. However all the rest of his blood pressures have been within normal limits. Patient does take Lasix and losartan at home which have been on hold. He is maintained on metoprolol. He currently denies any chest pain or pressure. Denies any shortness of breath. He is complaining of a sore throat this morning. DIAGNOSTICS: - No EKG available at the time of this dictation - Laboratory data: WBC 5.3. Hemoglobin 11.3. Platelet count 13.5. D-dimer 0.43. Sodium 136. Potassium 3.0. BUN 4. Creatinine 0.70. Troponin negative x 3. - Current home cardiac medications include simvastatin 40 mg at night, Lasix 20 mg daily, losartan 50 mg daily, metoprolol tartrate 25 mg twice a day - Most recent echocardiogram obtained in January 2024 revealed ejection fraction 55 to 60%, mild MR, mild AR, mild TR - Cardiac catheterization history: 2011 revealing dominant RCA free of signifi cant disease. Circumflex is free of significant disease. Previously stented LAD and diagonal are widely patent with no more than 40% narrowing. REVIEW OF SYSTEMS: At the time of my exam: CONSTITUTIONAL: Denies fever or chills. HEENT: Denies blurred vision, vision changes, or eye pain. Denies hemoptysis CARDIOVASCULAR: Denies chest pain. Denies orthopnea. Denies PND. Denies palpitations RESPIRATORY: Denies shortness of breath. GASTROINTESTINAL: Denies abdominal pain. Denies nausea or vomiting. HEMATOLOGIC: Denies bleeding disorders. GENITOURINARY: Denies any blood in urine. SKIN: Denies pruitis. Denies rash. PHYSICAL EXAM: VITAL SIGNS: Reviewed. GENERAL: Well-developed in no acute distress. HEENT: Head is normocephalic. Pupils are equal, round. Sclerae anicteric. Mucous membranes of the mouth are moist. Neck supple. No JVD or thyromegaly LUNGS: Respirations even and unlabored. Lungs essentially clear to auscultation bilaterally. HEART: Regular rate and rhythm. S1 and S2 heard. ABDOMEN: Soft. Nondistended. Nontender. EXTREMITIES: Normal range of motion. No clubbing or cyanosis. Peripheral pulses intact. No lower extremity edema NEUROLOGIC: Awake and alert. Oriented x 3. ASSESSMENT: Recurrent abdominal pain with nausea, vomiting, diarrhea Isolated episode of hypotension 93/50 Hypokalemia Coronary artery disease with previous stenting of LAD and diagonal History of SVT History of hypertension History of hyperlipidemia History of irritable bowel syndrome History of hiatal hernia PLAN: No need to repeat echocardiogram as this was performed in January 2024 Continue to hold Lasix and losartan. Isolated episode of hypotension likely secondary to hypovolemia due to N, V, D Continue current dose of metoprolol Patient is currently stable from a cardiac standpoint with no further inpatient recommendations We will sign off. Please reconsult if needed. Nurse practitioner note has been reviewed by physician. Signing provider agrees with the documented findings, assessment, and plan of care documented by [employer] as a scribe. Past Medical History Past Medical History: Coronary Artery Disease (CAD), Chest Pain / Angina, Eye Disorder, GERD/Reflux, Hyperlipidemia, Hypertension, Myocardial Infarction ([place]), Osteoarthritis (OA) Additional Past Medical History / Comment(s): recent admission for shiva sea/vomiting/diarrhea, Neck pain, SVT with ablation, duodenal ulcers, chronic duodenal stricture, bilateral glaucoma, sinusitis, migraines, anemia, esophagitis,hiatal hernia, chronic back pain, past fx ribs/sternum Last Myocardial Infarction Date:: 1999 History of Any Multi-Drug Resistant Organisms: None Reported Past Surgical History: Cardiac Ablation, Cholecystectomy, Heart Catheterization With Stent Additional Past Surgical History / Comment(s): stent bilateral eyes 03/2018, PCI with 3 stents, sinus surgery, cataracts bilaterally with lens implants, EGDs/colonoscopies, Past Anesthesia/Blood Transfusion Reactions: No Reported Reaction Additional Past Anesthesia/Blood Transfusion Reaction / Comment(s): Pt has had past multiple transfusions without reaction. Date of Last Stent Placement:: 1999 Past Psychological History: Anxiety Additional Psychological History / Comment(s): Pt resides with his spouse. He served in the [employer]. He is independent. Smoking Status: Never smoker Past Alcohol Use History: None Reported Additional Past Alcohol Use History / Comment(s): Patient was a smoker for only a few years in his 40s. Past Drug Use History: None Reported - Past Family History Father Additional Family Medical History / Comment(s): Father at the age of 68yrs from a ruptured aortic aneurysm. Mother Additional Family Medical History / Comment(s): Mother lived into her 80's. Brother(s) Family Medical History: Cancer Additional Family Medical History / Comment(s): The patient had 3 brothers. One from colon cancer with metastatic disease to the brain. One brother at age 79 from a myocardial infarction. He has 1 brother that is alive with history of skin cancer and diabetes. Sister(s) Additional Family Medical History / Comment(s): The patient is a total of 3 sist ers. One in her 80s from myocardial infarction. One sister at age 58 from coronary artery disease and also had a valvular disorder. Patient has one sister alive with diabetes and multiple other medical conditions. Patient has 2 sons and 1 daughter with no major medical problems. Medications and Allergies Home Medications Medication Instructions Recorded Confirmed Type Acetaminophen [Tylenol 8 Hour] 650 mg PO Q4H PRN 01/25/24 03/01/24 History Amitriptyline HCl [Elavil] 12.5 mg PO HS 01/25/24 03/01/24 History Betamethasone Dipropionate 1 applic TOPICAL DAILY PRN 01/25/24 03/01/24 History [Diprolene 0.05% Ointment] Brimonidine Tartrate/Timolol 1 drop BOTH EYES BID 01/25/24 03/01/24 History [Brimonidine-Timolol 0.2%-0.5%] Butalb/Acetaminophen/Caffeine 1 cap PO Q4HR PRN 01/25/24 03/01/24 History [Fioricet 50-300-40 mg Capsule] Cholecalciferol [Vitamin D3 (25 25 mcg PO DAILY 01/25/24 03/01/24 History Mcg = 1000 Iu)] Clindamycin Gel [Cleocin T 1% Gel] 1 applic TOPICAL BID PRN 01/25/24 03/01/24 H istory Clobetasol Propionate/Emoll 1 applic TOPICAL BID PRN 01/25/24 03/01/24 History [Clobetasol Emulsion 0.05% Foam] Diclofenac Sodium Gel [Voltaren 1% 2 gm TOPICAL QID PRN 01/25/24 03/01/24 History Gel] Dicyclomine [Bentyl] 10 mg PO TID 01/25/24 03/01/24 History Escitalopram [Lexapro] 10 mg PO DAILY 01/25/24 03/01/24 History Furosemide [Lasix] 20 mg PO DAILY 01/25/24 03/01/24 History Gabapentin [Neurontin] 800 mg PO TID 01/25/24 03/01/24 History Ketoconazole 2% Shampoo [Nizoral] 1 applic TOPICAL DAILY PRN 01/25/24 03/01/24 History Lidocaine 5% Patch [Lidoderm 5% 1 patch TOPICAL DAILY PRN 01/25/24 03/01/24 History Patch] Losartan [Cozaar] 50 mg PO DAILY 01/25/24 03/01/24 History Metoprolol Tartrate [Lopressor] 25 mg PO BID 01/25/24 03/01/24 History Montelukast [Singulair] 10 mg PO HS 01/25/24 03/01/24 History Nystatin/Triamcin 1 applic TOPICAL BID PRN 01/25/24 03/01/24 History [Nystatin-Triamcinolone Cream] Ondansetron Odt [Zofran ODT] 4 mg PO Q4H PRN 01/25/24 03/01/24 History Pantoprazole [Protonix] 40 mg PO BID 01/25/24 03/01/24 History Potassium Chloride 20 meq PO DAILY PRN 01/25/24 03/01/24 History Simvastatin [Zocor] 40 mg PO HS 01/25/24 03/01/24 History Sodium Chloride Tab 1 gm PO BID 01/25/24 03/01/24 History Sucralfate [Carafate] 1 gm PO ACHS 01/25/24 03/01/24 History Testosterone Cypionate 50 mg IM Q14D 01/25/24 03/01/24 History [Depo-Testosterone] diazePAM [Valium] 5 mg PO HS PRN 01/25/24 03/01/24 History tadalafiL 10 mg PO DAILY 01/25/24 03/01/24 History Cholestyramine (with Sugar) 4 gm PO BID@1000,1800 PRN #30 02/03/24 03/01/24 Rx [Questran Packet] packet Loperamide [Imodium] 2 mg PO QID PRN #30 cap 02/03/24 03/01/24 Rx Metoclopramide [Reglan] 5 mg PO TID PRN #20 tab 02/03/24 03/01/24 Rx Calcium Carbonate [Tums] 1,000 mg PO Q4HR PRN #0 tab 02/16/24 03/01/24 Rx Ciprofloxacin HCl [Cipro] 500 mg PO DIRECTED 03/01/24 03/01/24 History Mesalamine [Asacol Hd] 800 mg PO TID 03/01/24 03/01/24 History metroNIDAZOLE [Flagyl] 500 mg PO DIRECTED 03/01/24 03/01/24 History Allergies Allergy/AdvReac Type Severity Reaction Status Date / Time atorvastatin [From Lipitor] AdvReac MUSCLE Verified 03/01/24 19:22 CRAMPS hydrochlorothiazide AdvReac SEE COMMENT Verified 03/01/24 19:22 ropinirole [From Requip] AdvReac Hallucinati Verified 03/01/24 19:22 ons scopolamine AdvReac Hallucinati Verified 03/01/24 19:22 ons Physical Exam Vitals: Vital Signs Temp Pulse Resp BP Pulse Ox 03/03/24 07:00 97.5 F L 65 16 138/75 97 03/03/24 01:34 98.1 F 68 12 102/68 96 03/02/24 20:00 98.0 F 59 L 16 93/50 98 Intake and Output 03/02/24 03/03/24 03/03/24 22:59 06:59 14:59 Intake Total 1175 950 Output Total 500 450 Balance 675 500 Intake: Intake, IV Titration 675 600 Amount Sodium Chloride 0.9% 1, 675 600 000 ml @ 75 mls/hr IV . [id number] [facility] Rx#:[id number] Oral 500 350 Output: Urine 500 450 Other: Voiding Method Urinal Urinal Urinal Results 03/04/24 09:22 03/04/24 09:22 Cardiac Enzymes 03/02/24 03/03/24 Range/Units 14:46 02:45 AST 19 (17-59) U/L Troponin I <0.012 (0.000-0.034) ng/mL CBC 03/03/24 Range/Units 02:45 WBC 5.3 (3.8-10.6) k/uL RBC 3.73 L (4.30-5.90) m/uL Hgb 11.3 L (13.0-17.5) gm/dL Hct 34.4 L (39.0-53.0) % Plt Count 305 (150-450) k/uL Comprehensive Metabolic Panel 03/03/24 Range/Units 02:45 Sodium 136 L (137-145) mmol/L Potassium 3.0 L (3.5-5.1) mmol/L Chloride 106 (98-107) mmol/L Carbon Dioxide 24 (22-30) mmol/L BUN 4 L (9-20) mg/dL Creatinine 0.70 (0.66-1.25) mg/dL Glucose 126 H (74-99) mg/dL Calcium 7.7 L (8.4-10.2) mg/dL AST 19 (17-59) U/L ALT 9 (4-49) U/L Alkaline Phosphatase 70 (38-126) U/L Total Protein 5.1 L (6.3-8.2) g/dL Albumin 2.8 L (3.5-5.0) g/dL Current Medications Generic Name Dose Route Start Last Admin Trade Name Freq PRN Reason Stop Dose Admin Acetaminophen/Butalbital/Caffeine 1 each 03/01/24 20:42 03/03/24 01:55 Butalb/Apap/Caff 50-325-40mg Tab PO 1 each Q4HR PRN Administration Migraine Headache Hydrocodone Bitart/Acetaminophen 1 each 03/02/24 09:55 03/03/24 01:54 Hydrocodone/Apap 5-325mg 1 Each Tab PO 1 each Q6HR PRN Administration Moderate Pain (Scale 4 to 6) Amitriptyline HCl 12.5 mg 03/01/24 21:00 03/02/24 21:09 Amitriptyline Hcl 25 Mg Tab PO 12.5 mg HS DANIEL Administration Balsalazide 2,250 mg 03/01/24 22:00 03/03/24 12:03 Balsalazide Disodium 750 Mg Capsule PO 2,250 mg TID DANIEL Administration Brimonidine Tartrate 1 drops 03/01/24 21:00 03/03/24 10:09 Brimonidine Tartrate 0.2% Drops 5 Ml Btl BOTH EYES 1 drops BID DANIEL Administration Calcium Carbonate/Glycine 1,000 mg 03/01/24 20:42 Calcium Carbonate 500 Mg Chewable PO Q4HR PRN Dyspepsia Cholecalciferol 25 mcg 03/02/24 09:00 03/03/24 11:14 Cholecalciferol 25 Mcg (1000 Iu) Tablet PO Not Given DAILY [facility] Cholestyramine Resin 4 gm 03/02/24 10:00 03/03/24 12:04 Cholestyramine (With Sugar) 4 Gm Packet PO 4 gm BID@1000,1800 D[facility]EL Administration Diazepam 5 mg 03/01/24 20:42 03/02/24 00:11 Diazepam 5 Mg Tab PO 5 mg HS PRN Administration Anxiety/Insomnia Dicyclomine HCl 10 mg 03/01/24 22:00 03/03/24 11:15 Dicyclomine 10 Mg Cap PO Not Given TID [facility] Escitalopram Oxalate 10 mg 03/02/24 09:00 03/03/24 12:03 Escitalopram 10 Mg Tab PO 10 mg DAILY [facility]EL Administration Gabapentin 800 mg 03/01/24 22:00 03/03/24 12:02 Gabapentin 400 Mg Cap PO 800 mg TID D[facility]EL Administration Hydromorphone HCl 0.5 mg 03/02/24 09:56 03/03/24 10:02 Hydromorphone 0.5 Mg/0.5 Ml Syringe IVP 0.5 mg Q6HR PRN Administration Severe Pain (Scale 7 to 10) Sodium Chloride 1,000 mls @ 75 mls/hr 03/01/24 19:15 03/03/24 12:05 Saline 0.9% IV 75 mls/hr .[id number] [facility]EL Administration Ketoconazole 1 applic 03/01/24 20:42 Ketoconazole 2% Shampoo 1 Applic/Ml TOPICAL DAILY PRN Skin Irritation Lidocaine 1 patch 03/01/24 20:42 Lidocaine 4% Patch TOPICAL DAILY PRN Topical Pain Loperamide HCl 2 mg 03/01/24 19:10 03/03/24 12:03 Loperamide 2 Mg Cap PO 2 mg QID PRN Administration Diarrhea Lorazepam 0.25 mg 03/03/24 10:26 Lorazepam 2 Mg/Ml Inj IV Q8HR PRN Anxiety Metoclopramide HCl 5 mg 03/01/24 20:42 03/02/24 21:20 Metoclopramide 5 Mg Tab PO 5 mg TID PRN Administration Nausea Metoprolol Tartrate 25 mg 03/01/24 21:00 03/03/24 12:02 Metoprolol Tartrate 25 Mg Tab PO 25 mg BID DANIEL Administration Miscellaneous Information 1 each 03/03/24 07:26 Potassium Replacement Protocol 1 Each Misc MISCELLANE DAILY PRN Per Protocol Protocol Montelukast Sodium 10 mg 03/01/24 21:00 03/02/24 21:09 Montelukast 10 Mg Tab PO Not Given HS [facility]EL Naloxone HCl 0.2 mg 03/01/24 19:08 Naloxone 0.4 Mg/Ml 1 Ml Vial IV Q2M PRN Opioid Reversal Non-Formulary Medication 40 mg 03/01/24 21:00 03/02/24 21:10 Simvastatin PO 40 mg HS D[facility]EL Administration Ondansetron HCl 4 mg 03/01/24 19:08 03/03/24 10:02 Ondansetron 4 Mg/2 Ml Vial IVP 4 mg Q8HR PRN Administration Nausea And Vomiting Pantoprazole Sodium 40 mg 03/02/24 21:00 03/03/24 10:02 Pantoprazole 40 Mg/10 Ml Vial IV 40 mg BID DAINEL Administration Potassium Chloride 20 meq 03/01/24 20:42 Potassium Chloride Er 20 Meq Tab.Er PO DAILY PRN Diarrhea Sodium Chloride 1 gm 03/01/24 21:00 03/03/24 12:03 Sodium Chloride Tab 1 Gm Tab PO 1 gm BID DANIEL Administration Sucralfate 1 gm 03/01/24 21:00 03/03/24 12:03 Sucralfate 1 Gm Tab PO 1 gm ACHS D[facility]EL Administration Timolol Maleate 1 drops 03/01/24 21:00 03/03/24 10:09 Timolol 0.5% Ophth Drops 5 Ml Btl BOTH EYES 1 drops BID DANIEL Administration Intake and Output 03/02/24 03/03/24 03/03/24 22:59 06:59 14:59 Intake Total 1175 950 Output Total 500 450 Balance 675 500 Intake: Intake, IV Titration 675 600 Amount Sodium Chloride 0.9% 1, 675 600 000 ml @ 75 mls/hr IV . [id number] [facility] Rx#:[id number] Oral 500 350 Output: Urine 500 450 Other: Voiding Method Urinal Urinal Urinal 03/03/24 02:45 03/03/24 02:45
[2024-03-04] MEDS: NYSTATIN 100,000 UNIT/ML SUSP 500,000 UNIT/5 ML CUP PO SCH (14:27)
--- NOTE | 2024-03-04 15:35 | P.PN ---
Subjective Progress Note Date: 03/04/24 Principal diagnosis: Reason for follow-up is diarrhea Patient is a 73-year-old male with a past medical history significant for coronary artery disease hypertension hyperlipidemia GA gastric reflux presenting to the hospital for evaluation of weakness low blood pressure and did have nausea vomiting and diarrhea for more than a month. On today's evaluation that is 03/04/2024, the patient continues to be afebrile, the patient is on room air and breathing comfortably, the Pt denies having any chest pain or cough, the patient denies having any abdominal pain and no further vomiting and diarrhea has slowed down. Patient white count 7.3, creatinine 0.71 stool C. difficile lactoferrin Cryptosporidium and Giardia antigen negative Objective - Vital Signs Vital signs: Vital Signs Temp 97.7 F 03/04/24 02:00 Pulse 61 03/04/24 02:00 Resp 12 03/04/24 02:00 BP 125/66 03/04/24 02:00 Pulse Ox 97 03/04/24 02:00 FiO2 Intake & Output 03/03/24 03/04/24 03/04/24 18:59 06:59 18:59 Intake Total 900 2350 Output Total 200 450 Balance 700 1900 Intake: Intake, IV Titration 600 1200 Amount Sodium Chloride 0.9% 1, 600 1200 000 ml @ 75 mls/hr IV . [id number] [facility] Rx#:[id number] Oral 300 1150 Output: Urine 200 450 Other: Voiding Method Urinal Urinal # Voids 2 3 # Bowel Movements 1 - Exam GENERAL DESCRIPTION: An elderly male lying in bed in no distress RESPIRATORY SYSTEM: Unlabored breathing , decreased breath sounds at bases HEART: S1 S2 regular rate and rhythm , ABDOMEN: Soft , no tenderness EXTREMITIES: No edema feet - Labs CBC & Chem 7: 03/04/24 09:22 03/04/24 09:22 Labs: Abnormal Lab Results - Last 24 Hours (Table) 03/04/24 03/04/24 Range/Units 09:22 09:22 RBC 4.05 L (4.30-5.90) m/uL Hgb 12.5 L (13.0-17.5) gm/dL Hct 36.8 L (39.0-53.0) % Potassium 3.2 L (3.5-5.1) mmol/L Chloride 109 H (98-107) mmol/L BUN <2 L (9-20) mg/dL Glucose 111 H (74-99) mg/dL Calcium 7.9 L (8.4-10.2) mg/dL Total Protein 5.3 L (6.3-8.2) g/dL Albumin 2.9 L (3.5-5.0) g/dL Assessment and Plan (1) Nausea vomiting and diarrhea Current Visit: Yes Status: Acute Code(s): R11.2 - NAUSEA WITH VOMITING, UNSPECIFIED; R19.7 - DIARRHEA, UNSPECIFIED SNOMED Code(s): 8387084 Plan: 1patient presented to hospital for a low blood pressure also has been complaining of intractable nausea vomiting and diarrhea and this patient did have a normal blood pressure on presentation to the hospital is not running any fever white count is normal liver enzymes are normal he did have a CT of abdominal pelvis that has been negative for any evidence of colitis or enteritis all these features will make infectious colitis to be less likely 2-patient did have a negative stool for C. difficile, cryptosporidium antigen, stool cultures pending 3-patient seem to have responded to Questran, to continue for symptomatic relief no need for antibiotics Dictation was produced using [employer] dictation software. please excuse any grammatical, word or spelling errors. Time with Patient: Less than 30
[2024-03-04] MEDS: LORazepam 2 MG/ML INJ IV PRN (22:07)
[2024-03-05 01:30] VITALS: RESP 18
[2024-03-05 06:28] LABS: Basophils % (A) 0 %; Eosinophils # (A) 0.4 k/uL (0-0.7); Eosinophils % (A) 5 %; Lymphocytes # (A) 1.6 k/uL (1.0-4.8); Lymphocytes % (A) 19 %; MCH 31.2 pg (25.0-35.0); MCHC 35.1 g/dL (31.0-37.0); Mean Platelet Volume 7.5; Monocytes # (A) 0.6 k/uL (0-1.0); Monocytes % (A) 8 %; Neutrophils # (A) 5.4 k/uL (1.3-7.7); Neutrophils % (A) 66 %; Platelet Count 349 k/uL (150-450); RBC 4.16 m/uL (4.30-5.90); RDW 13.2 % (11.5-15.5); WBC 8.2 k/uL (3.8-10.6)
[2024-03-05 06:55] LABS: ALT 10 U/L (4-49); AST 28 U/L (17-59); African American GFR (CKD) >90 (>60 ml/min/1.73 sqM); Albumin/Globulin Ratio 1.3; Alkaline Phosphatase 93 U/L (38-126); Anion Gap 10 mmol/L; Blood Urea Nitrogen <2 mg/dL (9-20); Calcium 7.9 mg/dL (8.4-10.2); Carbon Dioxide 24 mmol/L (22-30); Chloride 104 mmol/L (98-107); Globulin 2.3 g/dL; Glucose 102 mg/dL (74-99); Non-African American GFR(CKD) >90 (>60 ml/min/1.73 sqM); Potassium 2.9 mmol/L (3.5-5.1); Sodium 138 mmol/L (137-145); Total Bilirubin 0.4 mg/dL (0.2-1.3); Total Protein 5.3 g/dL (6.3-8.2)
[2024-03-05 08:05] VITALS: PULSE 84; TEMP 98.2
[2024-03-05] MEDS: POTASSIUM CHLORIDE ER 20 MEQ TAB.ER PO STA ×2 (11:56→12:48)
[2024-03-05 12:01] VITALS: BP 141/74
--- NOTE | 2024-03-05 14:03 | P.DS ---
Providers Date of admission: 03/01/24 19:10 Expected date of discharge: 03/05/24 Attending physician: Gustavo Etienne Consults: 03/03/24 10:27 Consult Physician Routine Consulting Provider: Padmini Womack Consult Reason/Comments: diarhea, abd pain Do you want consulting provider notified?: Already Contacted 03/03/24 10:28 Consult Physician Routine Consulting Provider: Isiah Marcus Consult Reason/Comments: abd pain, Do you want consulting provider notified?: Already Contacted Primary care physician: Jocelin Khan Hospital Course: Discharge diagnoses; Abdominal pain Nausea and vomiting Oral candidiasis Coronary arteries history of stent placement SVT with history of radiofrequency ablation Hypertension Hyperlipidemia GERD History of duodenal ulcer/chronic duodenal stricture. Chronic back pain Chronic headache IBS Anxiety Hospital course; patient 73-year-old gentleman with past medical history significant for coronary artery disease with stent to LAD and diagonal, hypertension, IBS, SVT status post ablation in 2011, hiatal hernia, history of ulcer who presented to the ER because of nausea, vomiting abdominal pain , diarrhea. Patient has been admitted couple of times in the last month with similar complaints. Patient has seen GI in the history of chronic diarrhea and triple bowel syndrome and normally takes Protonix at home. Patient did that he was all right yesterday morning when he started having again nausea vomiting and diarrhea. Patient was also having generalized abdominal pain, cramping in nature, mostly on the right side, nonradiating, no aggravating or relieving factors of his abdominal pain. Patient also complained of nausea and vomiting. There was no complaint of fever or chills. There was no complaint of orthopnea or PND. Patient denies any chest pain or shortness of breath. Patient stated that he did see his PCP and GI in the last week and patient was some given some antibiotics but patient abdominal pain persisted.. Because of this abdominal pain, EMS was called and patient was found to be hypotensive so patient was brought to the ER. Initial lab work done in the ER showed WBC 9.6, hemoglobin 16, platelet count 445, sodium 137 potassium 3.3, BUN 5, creatinine 0.87, glucose 119, calcium 10, magnesium 2, AST 23, ALT 13, troponin 0.012 X-ray acute normal series done showed small air-fluid level within the right side of the colon suggesting diarrheal state Patient admitted to internal medicine service 03/03. Patient seen and examined. Still complaining abdominal pain and diarrhea. Patient very frustrated as all tests are coming back inconclusive. Stool culture pending. 03/04. Patient seen and examined. States he feels better compared to yesterday. Diarrhea has improved. Complaining of difficulty swallowing, white plaques seen in the oral cavity 03/05. Patient seen and examined. States he feels back to normal. Abdominal pain has resolved. Potassium was 2.9 show replaced by giving 40 mg of potassium x 2. Patient keen to go home. Being discharged on some Questran and nystatin swish and swallow. PHYSICAL EXAMINATION: GENERAL: The patient is alert and oriented x3, not in any acute distress. Well developed, well nourished. HEENT: Pupils are round and equally reacting to light. EOMI. No scleral icterus. No conjunctival pallor. Normocephalic, atraumatic. No pharyngeal erythema. No thyromegaly. CARDIOVASCULAR: S1 and S2 present. No murmurs, rubs, or gallops. PULMONARY: Chest is clear to auscultation, no wheezing or crackles. ABDOMEN: Soft, nontender, nondistended, normoactive bowel sounds. No palpable organomegaly. MUSCULOSKELETAL: No joint swelling or deformity. EXTREMITIES: No cyanosis, clubbing, or pedal edema. NEUROLOGICAL: Gross neurological examination did not reveal any focal deficits. SKIN: No rashes. Dictation was produced using [employer] dictation software. please excuse any grammatical, word or spelling errors. Patient Condition at Discharge: Fair Plan - Discharge Summary Discharge Rx Participant: No New Discharge Prescriptions: New Nystatin 100,000 Unit/ml Susp [Mycostatin Oral Susp] 500,000 unit PO QID 7 Days #140 ml HYDROcodone/APAP 5-325MG [Snyder 5-325] 1 each PO Q6HR PRN 3 Days #12 tab PRN Reason: Moderate Pain (Scale 4 To 6) Continue diazePAM [Valium] 5 mg PO HS PRN PRN Reason: Anxiety/Insomnia Testosterone Cypionate [Depo-Testosterone] 50 mg IM Q14D tadalafiL 10 mg PO DAILY Sodium Chloride Tab 1 gm PO BID Simvastatin [Zocor] 40 mg PO HS Potassium Chloride 20 meq PO DAILY PRN PRN Reason: Diarrhea Losartan [Cozaar] 50 mg PO DAILY Lidocaine 5% Patch [Lidoderm 5% Patch] 1 patch TOPICAL DAILY PRN PRN Reason: Pain Ketoconazole 2% Shampoo [Nizoral] 1 applic TOPICAL DAILY PRN PRN Reason: Skin Irritation Gabapentin [Neurontin] 800 mg PO TID Clobetasol Propionate/Emoll [Clobetasol Emulsion 0.05% Foam] 1 applic TOPICAL BID PRN PRN Reason: Skin Irritation Clindamycin Gel [Cleocin T 1% Gel] 1 applic TOPICAL BID PRN PRN Reason: Skin Irritation Butalb/Acetaminophen/Caffeine [Fioricet 50-300-40 mg Capsule] 1 cap PO Q4HR PRN PRN Reason: Migraine Headache Amitriptyline HCl [Elavil] 12.5 mg PO HS Acetaminophen [Tylenol 8 Hour] 650 mg PO Q4H PRN PRN Reason: Fever And/ Or Pain Brimonidine Tartrate/Timolol [Brimonidine-Timolol 0.2%-0.5%] 1 drop BOTH EYES BID Furosemide [Lasix] 20 mg PO DAILY Loperamide [Imodium] 2 mg PO QID PRN #30 cap PRN Reason: Diarrhea Calcium Carbonate [Tums] 1,000 mg PO Q4HR PRN #0 tab PRN Reason: Dyspepsia Cholestyramine (with Sugar) [Questran Packet] 4 gm PO BID@1000,1800 PRN #30 packet PRN Reason: Diarrhea Cholecalciferol [Vitamin D3 (25 Mcg = 1000 Iu)] 25 mcg PO DAILY Sucralfate [Carafate] 1 gm PO ACHS Pantoprazole [Protonix] 40 mg PO BID Ondansetron Odt [Zofran ODT] 4 mg PO Q4H PRN PRN Reason: Nausea And Vomiting Nystatin/Triamcin [Nystatin-Triamcinolone Cream] 1 applic TOPICAL BID PRN PRN Reason: Skin Irritation Montelukast [Singulair] 10 mg PO HS Metoprolol Tartrate [Lopressor] 25 mg PO BID Escitalopram [Lexapro] 10 mg PO DAILY Dicyclomine [Bentyl] 10 mg PO TID Diclofenac Sodium Gel [Voltaren 1% Gel] 2 gm TOPICAL QID PRN PRN Reason: Pain Betamethasone Dipropionate [Diprolene 0.05% Ointment] 1 applic TOPICAL DAILY PRN PRN Reason: Skin Irritation Metoclopramide [Reglan] 5 mg PO TID PRN #20 tab PRN Reason: Nausea Mesalamine [Asacol Hd] 800 mg PO TID Discontinued Ciprofloxacin HCl [Cipro] 500 mg PO DIRECTED metroNIDAZOLE [Flagyl] 500 mg PO DIRECTED Discharge Medication List Acetaminophen [Tylenol 8 Hour] 650 mg PO Q4H PRN 01/25/24 [History] Amitriptyline HCl [Elavil] 12.5 mg PO HS 01/25/24 [History] Betamethasone Dipropionate [Diprolene 0.05% Ointment] 1 applic TOPICAL DAILY PRN 01/25/24 [History] Brimonidine Tartrate/Timolol [Brimonidine-Timolol 0.2%-0.5%] 1 drop BOTH EYES BID 01/25/24 [History] Butalb/Acetaminophen/Caffeine [Fioricet 50-300-40 mg Capsule] 1 cap PO Q4HR PRN 01/25/24 [History] Cholecalciferol [Vitamin D3 (25 Mcg = 1000 Iu)] 25 mcg PO DAILY 01/25/24 [History] Clindamycin Gel [Cleocin T 1% Gel] 1 applic TOPICAL BID PRN 01/25/24 [History] Clobetasol Propionate/Emoll [Clobetasol Emulsion 0.05% Foam] 1 applic TOPICAL BID PRN 01/25/24 [History] Diclofenac Sodium Gel [Voltaren 1% Gel] 2 gm TOPICAL QID PRN 01/25/24 [History] Dicyclomine [Bentyl] 10 mg PO TID 01/25/24 [History] Escitalopram [Lexapro] 10 mg PO DAILY 01/25/24 [History] Furosemide [Lasix] 20 mg PO DAILY 01/25/24 [History] Gabapentin [Neurontin] 800 mg PO TID 01/25/24 [History] Ketoconazole 2% Shampoo [Nizoral] 1 applic TOPICAL DAILY PRN 01/25/24 [History] Lidocaine 5% Patch [Lidoderm 5% Patch] 1 patch TOPICAL DAILY PRN 01/25/24 [History] Losartan [Cozaar] 50 mg PO DAILY 01/25/24 [History] Metoprolol Tartrate [Lopressor] 25 mg PO BID 01/25/24 [History] Montelukast [Singulair] 10 mg PO HS 01/25/24 [History] Nystatin/Triamcin [Nystatin-Triamcinolone Cream] 1 applic TOPICAL BID PRN 01/25/24 [History] Ondansetron Odt [Zofran ODT] 4 mg PO Q4H PRN 01/25/24 [History] Pantoprazole [Protonix] 40 mg PO BID 01/25/24 [History] Potassium Chloride 20 meq PO DAILY PRN 01/25/24 [History] Simvastatin [Zocor] 40 mg PO HS 01/25/24 [History] Sodium Chloride Tab 1 gm PO BID 01/25/24 [History] Sucralfate [Carafate] 1 gm PO ACHS 01/25/24 [History] Testosterone Cypionate [Depo-Testosterone] 50 mg IM Q14D 01/25/24 [History] diazePAM [Valium] 5 mg PO HS PRN 01/25/24 [History] tadalafiL 10 mg PO DAILY 01/25/24 [History] Loperamide [Imodium] 2 mg PO QID PRN #30 cap 02/03/24 [Rx] Metoclopramide [Reglan] 5 mg PO TID PRN #20 tab 02/03/24 [Rx] Calcium Carbonate [Tums] 1,000 mg PO Q4HR PRN #0 tab 02/16/24 [Rx] Mesalamine [Asacol Hd] 800 mg PO TID 03/01/24 [History] Cholestyramine (with Sugar) [Questran Packet] 4 gm PO BID@1000,1800 PRN #30 packet 03/05/24 [Rx] HYDROcodone/APAP 5-325MG [Snyder 5-325] 1 each PO Q6HR PRN 3 Days #12 tab 03/05/24 [Rx] Nystatin 100,000 Unit/ml Susp [Mycostatin Oral Susp] 500,000 unit PO QID 7 Days #140 ml 03/05/24 [Rx] Follow up Appointment(s)/Referral(s): Jocelin Khan MD [Primary Care Provider] - 1-2 days Discharge Disposition: HOME SELF-CARE
--- NOTE | 2024-03-05 15:04 | P.PN ---
Subjective Progress Note Date: 03/05/24 Principal diagnosis: Reason for follow-up is diarrhea Patient is a 73-year-old male with a past medical history significant for coronary artery disease hypertension hyperlipidemia [place] gastric reflux presenting to the hospital for evaluation of weakness low blood pressure and did have nausea vomiting and diarrhea for more than a month. On today's evaluation that is 03/05/2024, patient did not have any fever and denies any chills, patient is breathing comfortably on room air, patient with no chest pain or cough patient did not have any abdominal pain nausea vomiting and did have resolution of his diarrhea. Patient white count is 8.2, creatinine 0.65 stool studies has been negative Objective - Vital Signs Vital signs: Vital Signs Temp 98.2 F 03/05/24 06:49 Pulse 84 03/05/24 06:49 Resp 18 03/05/24 06:49 BP 141/74 03/05/24 12:01 Pulse Ox 97 03/05/24 06:49 FiO2 Intake & Output 03/04/24 03/05/24 03/05/24 18:59 06:59 18:59 Intake Total 1000 680 Output Total 500 Balance 500 680 Intake: Intake, IV Titration 600 Amount Sodium Chloride 0.9% 1, 600 000 ml @ 75 mls/hr IV . [id number] [facility] Rx#:[id number] Oral 400 680 Output: Urine 500 Other: Voiding Method Urinal # Voids 3 4 - Exam GENERAL DESCRIPTION: An elderly male lying in bed in no distress RESPIRATORY SYSTEM: Unlabored breathing , decreased breath sounds at bases HEART: S1 S2 regular rate and rhythm , ABDOMEN: Soft , no tenderness EXTREMITIES: No edema feet - Labs CBC & Chem 7: 03/05/24 06:03 03/05/24 06:03 Labs: Abnormal Lab Results - Last 24 Hours (Table) 03/05/24 03/05/24 Range/Units 06:03 06:03 RBC 4.16 L (4.30-5.90) m/uL Hct 37.0 L (39.0-53.0) % Potassium 2.9 L (3.5-5.1) mmol/L BUN <2 L (9-20) mg/dL Creatinine 0.65 L (0.66-1.25) mg/dL Glucose 102 H (74-99) mg/dL Calcium 7.9 L (8.4-10.2) mg/dL Total Protein 5.3 L (6.3-8.2) g/dL Albumin 3.0 L (3.5-5.0) g/dL Assessment and Plan (1) Nausea vomiting and diarrhea Status: Acute Code(s): R11.2 - NAUSEA WITH VOMITING, UNSPECIFIED; R19.7 - DIARRHEA, UNSPECIFIED SNOMED Code(s): 3435691 Plan: 1patient presented to hospital for a low blood pressure also has been complaining of intractable nausea vomiting and diarrhea and this patient did have a normal blood pressure on presentation to the hospital is not running any fever white count is normal liver enzymes are normal he did have a CT of abdominal pelvis that has been negative for any evidence of colitis or enteritis all these features will make infectious colitis to be less likely 2-patient did have a negative stool for C. difficile, cryptosporidium antigen, stool cultures so far negative ng 3-patient has shown clinical improvement recommend Questran as needed on discharge no need for antibiotic discussed with admitting team Dictation was produced using [employer] dictation software. please excuse any grammatical, word or spelling errors. Time with Patient: Less than 30
== END 2024-03-05 14:43 | disposition home or self-care (01) ==
LOC: EC 15:08 → 6NMEDSUR 19:10 → 1SOBS 19:55 → 4SSUR 03-04 18:25
PROVIDERS: ADMIT Hospitalist; ATTEND Hospitalist
DX: K58.0 Irritable bowel syndrome with diarrhea (principal); B37.0 Candidal stomatitis; I95.9 Hypotension, unspecified; E87.6 Hypokalemia; K44.9 Diaphragmatic hernia without obstruction or gangrene; K21.00 Gastro-esophageal reflux disease with esophagitis, without bleeding; I25.10 Atherosclerotic heart disease of native coronary artery without angina pectoris; I10 Essential (primary) hypertension; E78.5 Hyperlipidemia, unspecified; R13.10 Dysphagia, unspecified; G89.29 Other chronic pain; M54.9 Dorsalgia, unspecified; R51.9 Headache, unspecified; F41.9 Anxiety disorder, unspecified; E66.9 Obesity, unspecified; I25.2 Old myocardial infarction; Z68.25 Body mass index [BMI] 25.0-25.9, adult; Z79.899 Other long term (current) drug therapy; Z88.8 Allergy status to other drugs, medicaments and biological substances; Z86.79 Personal history of other diseases of the circulatory system; Z95.5 Presence of coronary angioplasty implant and graft; Z87.11 Personal history of peptic ulcer disease; Z87.19 Personal history of other diseases of the digestive system; Z87.891 Personal history of nicotine dependence
CPT/HCPCS: 96376 ×4; 96361 ×3; 96365; 96366; 96375 ×3; 99285; 36415; 93005; 85379; 80053 ×5; 85652; 83690; 83735; 84484 ×2; 85025 ×5; 85610; 85730; 86140; 87324; 87045; 87329; 87328; 83630; 87046; 87636; 74022; 74177; G0378 ×7; J2060; J2405 ×5; J3490; J1171 ×5; J3480; J0131; Q9967; J2470 ×4

== ENCOUNTER 2024-03-11 01:07 | Inpatient (IN) | payer OTHER, MEDICARE ==
--- NOTE | 2024-03-11 01:32 | ED ---
General Adult HPI - General Chief complaint: Nausea/Vomiting/Diarrhea Stated complaint: Nausea/Vomiting Time Seen by Provider: 03/11/24 01:16 Source: patient, EMS Mode of arrival: EMS Limitations: no limitations - History of Present Illness Initial comments: 73-year-old male presenting with chief complaint of nausea vomiting and diarrhea. Patient has had recurrent issues with episodes of nausea vomiting and diarrhea ongoing since December. He has been admitted at our facility 4 times for this. He has history of IBS and chronic nausea, he currently follows with Dr. Subramanian. He was discharged last Thursday, states that he was doing well and tonight his symptoms started again. He has lower abdominal pain which he usually gets with these episodes, this is diffuse and nonlocalized. This is a cramping pain. Patient states that she does have a pain in the center of his chest which he attributes to his hiatal hernia. No difficulty breathing. No radiation of his chest pain. - Related Data Home Medications Medication Instructions Recorded Confirmed Acetaminophen [Tylenol 8 Hour] 650 mg PO Q4H PRN 01/25/24 03/11/24 Amitriptyline HCl [Elavil] 12.5 mg PO HS 01/25/24 03/11/24 Betamethasone Dipropionate 1 applic TOPICAL DAILY PRN 01/25/24 03/11/24 [Diprolene 0.05% Ointment] Brimonidine Tartrate/Timolol 1 drop BOTH EYES BID 01/25/24 03/11/24 [Brimonidine-Timolol 0.2%-0.5%] Butalb/Acetaminophen/Caffeine 1 cap PO Q4HR PRN 01/25/24 03/11/24 [Fioricet 50-300-40 mg Capsule] Cholecalciferol [Vitamin D3 (25 25 mcg PO DAILY 01/25/24 03/11/24 Mcg = 1000 Iu)] Clindamycin Gel [Cleocin T 1% Gel] 1 applic TOPICAL BID PRN 01/25/24 03/11/24 Clobetasol Propionate/Emoll 1 applic TOPICAL BID PRN 01/25/24 03/11/24 [Clobetasol Emulsion 0.05% Foam] Diclofenac Sodium Gel [Voltaren 1% 2 gm TOPICAL QID PRN 01/25/24 03/11/24 Gel] Dicyclomine [Bentyl] 10 mg PO TID 01/25/24 03/11/24 Escitalopram [Lexapro] 10 mg PO DAILY 01/25/24 03/11/24 Furosemide [Lasix] 20 mg PO DAILY 01/25/24 03/11/24 Gabapentin [Neurontin] 800 mg PO TID 01/25/24 03/11/24 Ketoconazole 2% Shampoo [Nizoral] 1 applic TOPICAL DAILY PRN 01/25/24 03/11/24 Lidocaine 5% Patch [Lidoderm 5% 1 patch TOPICAL DAILY PRN 01/25/24 03/11/24 Patch] Losartan [Cozaar] 50 mg PO DAILY 01/25/24 03/11/24 Metoprolol Tartrate [Lopressor] 25 mg PO BID 01/25/24 03/11/24 Montelukast [Singulair] 10 mg PO HS 01/25/24 03/11/24 Nystatin/Triamcin 1 applic TOPICAL BID PRN 01/25/24 03/11/24 [Nystatin-Triamcinolone Cream] Ondansetron Odt [Zofran ODT] 4 mg PO Q4H PRN 01/25/24 03/11/24 Pantoprazole [Protonix] 40 mg PO BID 01/25/24 03/11/24 Potassium Chloride 20 meq PO DAILY PRN 01/25/24 03/11/24 Simvastatin [Zocor] 40 mg PO HS 01/25/24 03/11/24 Sodium Chloride Tab 1 gm PO BID 01/25/24 03/11/24 Sucralfate [Carafate] 1 gm PO ACHS 01/25/24 03/11/24 Testosterone Cypionate 50 mg IM Q14D 01/25/24 03/11/24 [Depo-Testosterone] diazePAM [Valium] 5 mg PO HS PRN 01/25/24 03/11/24 tadalafiL 10 mg PO DAILY 01/25/24 03/11/24 Mesalamine [Asacol Hd] 800 mg PO TID 03/01/24 03/11/24 HYDROcodone/APAP 5-325MG [[place] 1 tab PO Q6HR PRN 03/11/24 03/11/24 5-325] Previous Rx's Medication Instructions Recorded Loperamide [Imodium] 2 mg PO QID PRN #30 cap 02/03/24 Metoclopramide [Reglan] 5 mg PO TID PRN #20 tab 02/03/24 Calcium Carbonate [Tums] 1,000 mg PO Q4HR PRN #0 tab 02/16/24 Cholestyramine (with Sugar) 4 gm PO BID@1000,1800 PRN #30 03/05/24 [Questran Packet] packet Nystatin 100,000 Unit/ml Susp 500,000 unit PO QID 7 Days #140 ml 03/05/24 [Mycostatin Oral Susp] Allergies Allergy/AdvReac Type Severity Reaction Status Date / Time atorvastatin [From Lipitor] AdvReac MUSCLE Verified 03/01/24 19:22 CRAMPS hydrochlorothiazide AdvReac SEE COMMENT Verified 03/01/24 19:22 ropinirole [From Requip] AdvReac Hallucinati Verified 03/01/24 19:22 ons scopolamine AdvReac Hallucinati Verified 03/01/24 19:22 ons Review of Systems ROS Statement: Those systems with pertinent positive or pertinent negative responses have been documented in the HPI. ROS Other: All systems not noted in ROS Statement are negative. Past Medical History Past Medical History: Coronary Artery Disease (CAD), Chest Pain / Angina, Eye Disorder, GERD/Reflux, Hyperlipidemia, Hypertension, Myocardial Infarction ([place]), Osteoarthritis (OA) Additional Past Medical History / Comment(s): recent admission for nausea/vomiting/diarrhea, Neck pain, SVT with ablation, duodenal ulcers, chronic duodenal stricture, bilateral glaucoma, sinusitis, migraines, anemia, esophagitis,hiatal hernia, chronic back pain, past fx ribs/sternum Last Myocardial Infarction Date:: 1999 History of Any Multi-Drug Resistant Organisms: None Reported Past Surgical History: Cardiac Ablation, Cholecystectomy, Heart Catheterization With Stent Additional Past Surgical History / Comment(s): stent bilateral eyes 03/2018, PCI with 3 stents, sinus surgery, cataracts bilaterally with lens implants, EGDs/c olonoscopies, Past Anesthesia/Blood Transfusion Reactions: No Reported Reaction Additional Past Anesthesia/Blood Transfusion Reaction / Comment(s): Pt has had past multiple transfusions without reaction. Date of Last Stent Placement:: 1999 Past Psychological History: Anxiety Smoking Status: Never smoker Past Alcohol Use History: None Reported Past Drug Use History: None Reported - Past Family History Father Additional Family Medical History / Comment(s): Father at the age of 68yrs from a ruptured aortic aneurysm. Mother Additional Family Medical History / Comment(s): Mother lived into her 80's. Brother(s) Family Medical History: Cancer Additional Family Medical History / Comment(s): The patient had 3 brothers. One from colon cancer with metastatic disease to the brain. One brother at age 79 from a myocardial infarction. He has 1 brother that is alive with history of skin cancer and diabetes. Sister(s) Additional Family Medical History / Comment(s): The patient is a total of 3 sisters. One in her 80s from myocardial infarction. One sister at age 58 from coronary artery disease and also had a valvular disorder. Patient has one sister alive with diabetes and multiple other medical conditions. Patient has 2 sons and 1 daughter with no major medical problems. General Exam Limitations: no limitations General appearance: alert, in no apparent distress Head exam: Present: atraumatic, normocephalic, normal inspection Eye exam: Present: normal appearance, EOMI Neck exam: Present: normal inspection. Absent: meningismus Respiratory exam: Present: normal lung sounds bilaterally. Absent: respiratory distress, wheezes, rales, rhonchi, stridor Cardiovascular Exam: Present: regular rate, normal rhythm, normal heart sounds. Absent: systolic murmur, diastolic murmur, rubs, gallop, clicks GI/Abdominal exam: Present: soft, tenderness. Absent: distended, guarding, rebound, rigid Neurological exam: Present: alert, oriented X3 Psychiatric exam: Present: normal affect, normal mood Skin exam: Present: warm, dry Course Vital Signs 03/11/24 03/11/24 03/11/24 01:09 06:00 08:04 Temperature 98.6 F Pulse Rate 94 105 H 101 H Respiratory 18 16 22 Rate Blood Pressure 149/90 163/91 147/91 O2 Sat by Pulse 98 95 96 Oximetry 03/11/24 13:11 Temperature 97.7 F Pulse Rate 73 Respiratory 18 Rate Blood Pressure 126/76 O2 Sat by Pulse 97 Oximetry Medical Decision Making - Medical Decision Making Sinus rhythm ventricular rate 98. NC interval 207. QRS 85. QT 359. QTc 414. No acute changes from previous EKG Was pt. sent in by a medical professional or institution (, PA, DRAPERY AND UPHOLSTERY MEASURER, urgent care, hospital, or correction...) When possible be specific @ -No Did you speak to anyone other than the patient for history (EMS, parent, family, police, friend...)? What history was obtained from this source @ - Did you review nursing and triage notes (agree or disagree)? Why? @ -I reviewed and agree with nursing and triage notes Were old charts reviewed (outside hosp., previous admission, EMS record, old EKG, old radiological studies, urgent care reports/EKG's, correction records)? Report findings @ -Reviewed previous visits Differential Diagnosis (chest pain, altered mental status, abdominal pain women, abdominal pain men, vaginal bleeding, weakness, fever, dyspnea, syncope, headache, dizziness, GI bleed, back pain, seizure, CVA, palpatations, mental health, musculoskeletal)? @ -MDM Differential Abdominal Pain Men: Appendicitis, cholecystitis, diverticulosis, ischemic bowel, pancreatitis, hepatitis, UTI, gastroenteritis, AAA, incarcerated hernia, bowel obstruction, constipation, inflammatory bowel, hepatitis, peptic ulcer disease, splenic i nfarction, perforated viscus, testicular torsion... This is not meant to be an all-inclusive list EKG interpreted by me (3pts min.). @ -As above X-rays interpreted by me (1pt min.). @ -None done CT interpreted by me (1pt min.). @ -CT shows no acute hemorrhage, hydrocephalus, or mass effect U/S interpreted by me (1pt. min.). @ -None done What testing was considered but not performed or refused? (CT, X-rays, U/S, labs)? Why? @ -None What meds were considered but not given or refused? Why? @ -None Did you discuss the management of the patient with other professionals (professionals i.e. Dr. PA, DRAPERY AND UPHOLSTERY MEASURER, lab, RT, psych nurse, social psychologist, compression molding machine setter, teacher, occupational medicine officer, case finishing machine adjuster)? Give summary @ -My attending spoke with the [facility] provider on-call who accepts admission Was smoking cessation discussed for >3mins.? @ -No Was critical care preformed (if so, how long)? @ -No Were there social determinants of health that impacted care today? How? (Homelessness, low income, unemployed, alcoholism, drug addiction, transportation, low edu. Level, literacy, decrease access to med. care, fci, rehab)? @ -No Was there de-escalation of care discussed even if they declined (Discuss DNR or withdrawal of care, Hospice)? DNR status @ -No What co-morbidities impacted this encounter? (DM, HTN, Smoking, COPD, CAD, Cancer, CVA, ARF, Chemo, Hep., AIDS, mental health diagnosis, sleep apnea, morbid obesity)? @ -None Was patient admitted / discharged? Hospital course, mention meds given and route, prescriptions, significant lab abnormalities, going to OR and other pertinent info. @ -73-year-old male presenting with chief complaint of nausea vomiting and diarrhea. Patient has had recurrent issues with the symptoms ongoing since January. He has been admitted for other times for this. He follows with Dr. Hickman. History and physical examination are conducted. Lab work shows no nely kocytosis or anemia. CMP requires no action. Negative troponin. Amylase and lipase are WNL. Urine shows 1+ ketones, likely due to dehydration. Negative for influenza, RSV, COVID. Patient was having a headache, negative CT of the brain. Patient is having some lower abdominal discomfort, however he has had this each time he has had the symptoms, he has had a previous CT which showed no acute process, do not believe it is beneficial to repeat CT today. After pain meds and antiemetics patient still experiencing symptoms. He will be admitted with GI consult. Follow-up with PCP. Report back to ER with any new or worsening symptoms. Discussed return parameters and answered all questions. Patient conveyed verbal understanding and agreed to the plan. I discussed this case in detail with my attending Dr. Jones Undiagnosed new problem with uncertain prognosis? @ -No Drug Therapy requiring intensive monitoring for toxicity (Heparin, Nitro, Insulin, Cardizem)? @ -No Were any procedures done? @ -No Diagnosis/symptom? @ -Intractable nausea and vomiting Acute, or Chronic, or Acute on Chronic? @ -Acute Uncomplicated (without systemic symptoms) or Complicated (systemic symptoms)? @ -Complicated Side effects of treatment? @ -No Exacerbation, Progression, or Severe Exacerbation? @ -No Poses a threat to life or bodily function? How? (Chest pain, [place], [place], pneumonia, PE, COPD, DKA, ARF, appy, cholecystitis, CVA, Diverticulitis, Homicidal, Suicidal, threat to staff... and all critical care pts) @ -Yes - Lab Data Result diagrams: 03/11/24 01:03/11/24 01: Lab Results 03/11/24 03/11/24 03/11/24 Range/Units 01: 01: 01: WBC 9.6 (3.8-10.6) k/uL RBC 5.02 (4.30-5.90) m/uL Hgb 15.1 (13.0-17.5) gm/dL Hct 45.8 (39.0-53.0) % MCV 91.2 (80.0-100.0) fL MCH 30.1 (25.0-35.0) pg MCHC 33.0 (31.0-37.0) g/dL RDW 12.8 (11.5-15.5) % Plt Count 367 (150-450) k/uL MPV 6.7 Neutrophils % 66 % Lymphocytes % 21 % Monocytes % 7 % Eosinophils % 4 % Basophils % 0 % Neutrophils # 6.3 (1.3-7.7) k/uL Lymphocytes # 2.1 (1.0-4.8) k/uL Monocytes # 0.7 (0-1.0) k/uL Eosinophils # 0.4 (0-0.7) k/uL Basophils # 0.0 (0-0.2) k/uL Sodium 133 L (137-145) mmol/L Potassium 3.6 (3.5-5.1) mmol/L Chloride 98 (98-107) mmol/L Carbon Dioxide 23 (22-30) mmol/L Anion Gap 12 mmol/L BUN 3 L (9-20) mg/dL Creatinine 0.76 (0.66-1.25) mg/dL Est GFR (CKD-EPI)AfAm >90 (>60 ml/min/1.73 sqM) Est GFR (CKD-EPI)NonAf 89 (>60 ml/min/1.73 sqM) Glucose 126 H (74-99) mg/dL POC Glucose (mg/dL) (70-110) mg/dL POC Glu [employer] ID Calcium 9.0 (8.4-10.2) mg/dL Phosphorus (2.5-4.5) mg/dL Magnesium (1.6-2.3) mg/dL Total Bilirubin 0.6 (0.2-1.3) mg/dL AST 17 (17-59) U/L ALT 9 (4-49) U/L Alkaline Phosphatase 112 (38-126) U/L Troponin I (0.000-0.034) ng/mL Total Protein 6.7 (6.3-8.2) g/dL Albumin 4.0 (3.5-5.0) g/dL Amylase 56 (30-110) U/L Lipase 106 (23-300) U/L Urine Color Colorless Urine Appearance Clear (Clear) Urine pH 7.0 (5.0-8.0) Ur Specific [place] 1.008 (1.001-1.035) Urine Protein Negative (Negative) Urine Glucose (UA) Negative (Negative) Urine Ketones 1+ H (Negative) Urine Blood Negative (Negative) Urine Nitrite Negative (Negative) Urine Bilirubin Negative (Negative) Urine Urobilinogen <2.0 (<2.0) mg/dL Ur Leukocyte Esterase Negative (Negative) Influenza Type A (PCR) (Not Detectd) Influenza Type B (PCR) (Not Detectd) RSV (PCR) (Not Detectd) SARS-CoV-2 (PCR) (Not Detectd) 03/11/24 03/11/24 03/11/24 Range/Units 01:27 01:27 01:27 WBC (3.8-10.6) k/uL RBC (4.30-5.90) m/uL Hgb (13.0-17.5) gm/dL Hct (39.0-53.0) % MCV (80.0-100.0) fL MCH (25.0-35.0) pg MCHC (31.0-37.0) g/dL RDW (11.5-15.5) % Plt Count (150-450) k/uL MPV Neutrophils % % Lymphocytes % % Monocytes % % Eosinophils % % Basophils % % Neutrophils # (1.3-7.7) k/uL Lymphocytes # (1.0-4.8) k/uL Monocytes # (0-1.0) k/uL Eosinophils # (0-0.7) k/uL Basophils # (0-0.2) k/uL Sodium (137-145) mmol/L Potassium (3.5-5.1) mmol/L Chloride (98-107) mmol/L Carbon Dioxide (22-30) mmol/L Anion Gap mmol/L BUN (9-20) mg/dL Creatinine (0.66-1.25) mg/dL Est GFR (CKD-EPI)AfAm (>60 ml/min/1.73 sqM) Est GFR (CKD-EPI)NonAf (>60 ml/min/1.73 sqM) Glucose (74-99) mg/dL POC Glucose (mg/dL) (70-110) mg/dL POC Glu [employer] ID Calcium (8.4-10.2) mg/dL Phosphorus 2.2 L (2.5-4.5) mg/dL Magnesium 1.6 (1.6-2.3) mg/dL Total Bilirubin (0.2-1.3) mg/dL AST (17-59) U/L ALT (4-49) U/L Alkaline Phosphatase (38-126) U/L Troponin I <0.012 (0.000-0.034) ng/mL Total Protein (6.3-8.2) g/dL Albumin (3.5-5.0) g/dL Amylase (30-110) U/L Lipase (23-300) U/L Urine Color Urine Appearance (Clear) Urine pH (5.0-8.0) Ur Specific [place] (1.001-1.035) Urine Protein (Negative) Urine Glucose (UA) (Negative) Urine Ketones (Negative) Urine Blood (Negative) Urine Nitrite (Negative) Urine Bilirubin (Negative) Urine Urobilinogen (<2.0) mg/dL Ur Leukocyte Esterase (Negative) Influenza Type A (PCR) Not Detected (Not Detectd) Influenza Type B (PCR) Not Detected (Not Detectd) RSV (PCR) Not Detected (Not Detectd) SARS-CoV-2 (PCR) Not Detected (Not Detectd) 03/11/24 Range/Units 01:32 WBC (3.8-10.6) k/uL RBC (4.30-5.90) m/uL Hgb (13.0-17.5) gm/dL Hct (39.0-53.0) % MCV (80.0-100.0) fL MCH (25.0-35.0) pg MCHC (31.0-37.0) g/dL RDW (11.5-15.5) % Plt Count (150-450) k/uL MPV Neutrophils % % Lymphocytes % % Monocytes % % Eosinophils % % Basophils % % Neutrophils # (1.3-7.7) k/uL Lymphocytes # (1.0-4.8) k/uL Monocytes # (0-1.0) k/uL Eosinophils # (0-0.7) k/uL Basophils # (0-0.2) k/uL Sodium (137-145) mmol/L Potassium (3.5-5.1) mmol/L Chloride (98-107) mmol/L Carbon Dioxide (22-30) mmol/L Anion Gap mmol/L BUN (9-20) mg/dL Creatinine (0.66-1.25) mg/dL Est GFR (CKD-EPI)AfAm (>60 ml/min/1.73 sqM) Est GFR (CKD-EPI)NonAf (>60 ml/min/1.73 sqM) Glucose (74-99) mg/dL POC Glucose (mg/dL) 119 H (70-110) mg/dL POC Glu [employer] ID Moshe García Calcium (8.4-10.2) mg/dL Phosphorus (2.5-4.5) mg/dL Magnesium (1.6-2.3) mg/dL Total Bilirubin (0.2-1.3) mg/dL AST (17-59) U/L ALT (4-49) U/L Alkaline Phosphatase (38-126) U/L Troponin I (0.000-0.034) ng/mL Total Protein (6.3-8.2) g/dL Albumin (3.5-5.0) g/dL Amylase (30-110) U/L Lipase (23-300) U/L Urine Color Urine Appearance (Clear) Urine pH (5.0-8.0) Ur Specific [place] (1.001-1.035) Urine Protein (Negative) Urine Glucose (UA) (Negative) Urine Ketones (Negative) Urine Blood (Negative) Urine Nitrite (Negative) Urine Bilirubin (Negative) Urine Urobilinogen (<2.0) mg/dL Ur Leukocyte Esterase (Negative) Influenza Type A (PCR) (Not Detectd) Influenza Type B (PCR) (Not Detectd) RSV (PCR) (Not Detectd) SARS-CoV-2 (PCR) (Not Detectd) Disposition Clinical Impression: Intractable nausea and vomiting Disposition: ADMITTED IP TO THIS HOSP Condition: Fair Time of Disposition: 03:19
[2024-03-11 01:35] LABS: Glucose,Whole Blood 119 mg/dL (70-110)
[2024-03-11] MEDS: METOCLOPRAMIDE 5 MG/ML 2 ML VIAL IVP STA (01:41)
[2024-03-11] MEDS: PANTOPRAZOLE 40 MG/10 ML VIAL IVP STA (01:42)
[2024-03-11] MEDS: SODIUM CHLORIDE 0.9% 1,000 ML IV STA (01:42)
[2024-03-11 01:46] LABS: Basophils % (A) 0 %; Eosinophils # (A) 0.4 k/uL (0-0.7); Eosinophils % (A) 4 %; HCT 45.8 % (39.0-53.0); HGB 15.1 gm/dL (13.0-17.5); Lymphocytes # (A) 2.1 k/uL (1.0-4.8); Lymphocytes % (A) 21 %; MCH 30.1 pg (25.0-35.0); MCV 91.2 fL (80.0-100.0); Mean Platelet Volume 6.7; Monocytes # (A) 0.7 k/uL (0-1.0); Monocytes % (A) 7 %; Neutrophils # (A) 6.3 k/uL (1.3-7.7); Neutrophils % (A) 66 %; Platelet Count 367 k/uL (150-450); RBC 5.02 m/uL (4.30-5.90); RDW 12.8 % (11.5-15.5); WBC 9.6 k/uL (3.8-10.6)
[2024-03-11 02:06] LABS: Appearance,Urine Clear (Clear); Bilirubin,Urine Negative (Negative); Blood,Urine Negative (Negative); Color,Urine Colorless; Glucose,Urine (UA) Negative (Negative); Ketones,Urine 1+ (Negative); Leukocyte Esterase,Urine Negative (Negative); Nitrite,Urine Negative (Negative); Protein,Urine Negative (Negative); Specific Gravity,Urine 1.008 (1.001-1.035); Urobilinogen,Urine <2.0 mg/dL (<2.0)
[2024-03-11 02:11] LABS: ALT 9 U/L (4-49); AST 17 U/L (17-59); African American GFR (CKD) >90 (>60 ml/min/1.73 sqM); Alkaline Phosphatase 112 U/L (38-126); Amylase 56 U/L (30-110); Anion Gap 12 mmol/L; Blood Urea Nitrogen 3 mg/dL (9-20); Carbon Dioxide 23 mmol/L (22-30); Chloride 98 mmol/L (98-107); Glucose 126 mg/dL (74-99); Lipase 106 U/L (23-300); Non-African American GFR(CKD) 89 (>60 ml/min/1.73 sqM); Potassium 3.6 mmol/L (3.5-5.1); Sodium 133 mmol/L (137-145); Total Bilirubin 0.6 mg/dL (0.2-1.3); Total Protein 6.7 g/dL (6.3-8.2)
[2024-03-11 02:22] LABS: Influenza A Not Detected (Not Detectd); Influenza B Not Detected (Not Detectd); RSV Not Detected (Not Detectd)
[2024-03-11 02:42] LABS: Magnesium 1.6 mg/dL (1.6-2.3); Phosphorus 2.2 mg/dL (2.5-4.5)
[2024-03-11] MEDS: MORPHINE SULFATE 4 MG/ML SYRINGE IVP STA (02:49)
[2024-03-11] MEDS ORDERED: NALOXONE 0.4 MG/ML 1 ML VIAL IV PRN (03:17)
[2024-03-11] MEDS: SODIUM CHLORIDE 0.9% 1,000 ML IV SCH (03:37)
--- NOTE | 2024-03-11 04:03 | CT ---
EXAM: CT Head Without Intravenous Contrast CLINICAL HISTORY: ITS.REASON CT Reason: Headache TECHNIQUE: Axial computed tomography images of the head/brain without intravenous contrast. CTDI is 49.1 mGy and DLP is 1256.4 mGy-cm. This CT exam was performed using one or more of the following dose reduction techniques: automated exposure control, adjustment of the mA and/or kV according to patient size, and/or use of iterative reconstruction technique. COMPARISON: No relevant prior studies available. FINDINGS: Brain: No hemorrhage or mass effect. Ventricles: No hydrocephalus. Bones/joints: Unremarkable. Soft tissues: Unremarkable. Sinuses: No air fluid level. Mastoid air cells: Clear. IMPRESSION: No acute hemorrhage, hydrocephalus, or mass effect.
[2024-03-11] MEDS: ONDANSETRON 4 MG/2 ML VIAL IVP PRN (04:04)
[2024-03-11] MEDS: HYDROmorphone 1 MG/ML 1 ML SYRINGE IVP PRN (05:29)
[2024-03-11] MEDS: KETOROLAC 15 MG/ML 1 ML VIAL IVP PRN (08:02)
[2024-03-11] MEDS: METOCLOPRAMIDE 5 MG/ML 2 ML VIAL IVP PRN (08:04)
[2024-03-11] MEDS ORDERED: LOPERAMIDE 2 MG CAP PO PRN (09:25)
--- NOTE | 2024-03-11 09:25 | P.CONS ---
History of Present Illness - Reason for Consult Consult date: 03/11/24 Intractable nausea and vomiting - Chief Complaint Nausea and vomiting, abdominal pain - History of Present Illness This a pleasant 73-year-old male who presented to the emergency department with intractable nausea and vomiting. Patient has been having off-and-on nausea and vomiting since early to mid January. He has had 2 prior hospitalizations and was recently discharged this past Thursday. He continues to have nausea and vomiting at home unable to eat or keep anything down also associated with some abdominal pain. Denies any diarrhea at this time. He is well known to gastroenterology for history of chronic diarrhea, nausea and vomiting. He has had multiple upper endoscopies, last EGD for longstanding history of GERD and intermittent dysphagia was done on 06/18/2023 with findings of linear ulcerations in the distal esophagus consistent with severe LA grade C reflux esophagitis, no evidence of Malka esophagitis and a benign-appearing duodenal stricture along the duodenal sweep. Last colonoscopy was 06/11/2020 that was normal colon. Patient has a history of GERD, takes Carafate at home as well as Protonix 40 mg twice daily. Patient takes Reglan at home, currently on Reglan and Zofran. Patient states Dr. Khan started him on mesalamine which will be discontinued. Review of Systems REVIEW OF SYSTEMS: CARDIOPULMONARY: No chest pain or shortness of breath. Gastrointestinal: Abdominal pain. Nausea and vomiting. No hematemesis, coffee- ground emesis. No rectal bleeding, or melena. GENITOURINARY: No dysuria or hematuria. MUSCULOSKELETAL: Reports normal range of motion., Joint pain. SKIN: No rashes. No jaundice. ENDOCRINE: No chills, fevers. No polydipsia or polyuria. PSYCHIATRIC: Unremarkable. NEUROLOGY: No change in mental status. Denies dizziness, headache. ENT: Vision unremarkable. CONSTITUTIONAL: Increased weakness, weight loss secondary to nausea and vomiting inability to eat. No fever, chills, night sweats. Past Medical History Past Medical History: Coronary Artery Disease (CAD), Chest Pain / Angina, Eye Disorder, GERD/Reflux, Hyperlipidemia, Hypertension, Myocardial Infarction ([place]), Osteoarthritis (OA) Additional Past Medical History / Comment(s): recent admission for nausea/vomiting/diarrhea, Neck pain, SVT with ablation, duodenal ulcers, chronic duodenal stricture, bilateral glaucoma, sinusitis, migraines, anemia, esophagitis,hiatal hernia, chronic back pain, past fx ribs/sternum Last Myocardial Infarction Date:: 1999 History of Any Multi-Drug Resistant Organisms: None Reported Past Surgical History: Cardiac Ablation, Cholecystectomy, Heart Catheterization With Stent Additional Past Surgical History / Comment(s): stent bilateral eyes 03/2018, PCI with 3 stents, sinus surgery, cataracts bilaterally with lens implants, EGDs/col onoscopies, Past Anesthesia/Blood Transfusion Reactions: No Reported Reaction Additional Past Anesthesia/Blood Transfusion Reaction / Comm: Pt has had past multiple transfusions without reaction. Date of Last Stent Placement:: 1999 Past Psychological History: Anxiety Smoking Status: Never smoker Past Alcohol Use History: None Reported Past Drug Use History: None Reported - Past Family History Father Additional Family Medical History / Comment(s): Father at the age of 68yrs from a ruptured aortic aneurysm. Mother Additional Family Medical History / Comment(s): Mother lived into her 80's. Brother(s) Family Medical History: Cancer Additional Family Medical History / Comment(s): The patient had 3 brothers. One from colon cancer with metastatic disease to the brain. One brother at age 79 from a myocardial infarction. He has 1 brother that is alive with history of skin cancer and diabetes. Sister(s) Additional Family Medical History / Comment(s): The patient is a total of 3 sisters. One in her 80s from myocardial infarction. One sister at age 58 from coronary artery disease and also had a valvular disorder. Patient has one sister alive with diabetes and multiple other medical conditions. Patient has 2 sons and 1 daughter with no major medical problems. Medications and Allergies Home Medications Medication Instructions Recorded Confirmed Type Acetaminophen [Tylenol 8 Hour] 650 mg PO Q4H PRN 01/25/24 03/01/24 History Amitriptyline HCl [Elavil] 12.5 mg PO HS 01/25/24 03/01/24 History Betamethasone Dipropionate 1 applic TOPICAL DAILY PRN 01/25/24 03/01/24 History [Diprolene 0.05% Ointment] Brimonidine Tartrate/Timolol 1 drop BOTH EYES BID 01/25/24 03/01/24 History [Brimonidine-Timolol 0.2%-0.5%] Butalb/Acetaminophen/Caffeine 1 cap PO Q4HR PRN 01/25/24 03/01/24 History [Fioricet 50-300-40 mg Capsule] Cholecalciferol [Vitamin D3 (25 25 mcg PO DAILY 01/25/24 03/01/24 History Mcg = 1000 Iu)] Clindamycin Gel [Cleocin T 1% Gel] 1 applic TOPICAL BID PRN 01/25/24 03/01/24 History Clobetasol Propionate/Emoll 1 applic TOPICAL BID PRN 01/25/24 03/01/24 History [Clobetasol Emulsion 0.05% Foam] Diclofenac Sodium Gel [Voltaren 1% 2 gm TOPICAL QID PRN 01/25/24 03/01/24 History Gel] Dicyclomine [Bentyl] 10 mg PO TID 01/25/24 03/01/24 History Escitalopram [Lexapro] 10 mg PO DAILY 01/25/24 03/01/24 History Furosemide [Lasix] 20 mg PO DAILY 01/25/24 03/01/24 History Gabapentin [Neurontin] 800 mg PO TID 01/25/24 03/01/24 History Ketoconazole 2% Shampoo [Nizoral] 1 applic TOPICAL DAILY PRN 01/25/24 03/01/24 History Lidocaine 5% Patch [Lidoderm 5% 1 patch TOPICAL DAILY PRN 01/25/24 03/01/24 Hist ory Patch] Losartan [Cozaar] 50 mg PO DAILY 01/25/24 03/01/24 History Metoprolol Tartrate [Lopressor] 25 mg PO BID 01/25/24 03/01/24 History Montelukast [Singulair] 10 mg PO HS 01/25/24 03/01/24 History Nystatin/Triamcin 1 applic TOPICAL BID PRN 01/25/24 03/01/24 History [Nystatin-Triamcinolone Cream] Ondansetron Odt [Zofran ODT] 4 mg PO Q4H PRN 01/25/24 03/01/24 History Pantoprazole [Protonix] 40 mg PO BID 01/25/24 03/01/24 History Potassium Chloride 20 meq PO DAILY PRN 01/25/24 03/01/24 History Simvastatin [Zocor] 40 mg PO HS 01/25/24 03/01/24 History Sodium Chloride Tab 1 gm PO BID 01/25/24 03/01/24 History Sucralfate [Carafate] 1 gm PO ACHS 01/25/24 03/01/24 History Testosterone Cypionate 50 mg IM Q14D 01/25/24 03/01/24 History [Depo-Testosterone] diazePAM [Valium] 5 mg PO HS PRN 01/25/24 03/01/24 History tadalafiL 10 mg PO DAILY 01/25/24 03/01/24 History Loperamide [Imodium] 2 mg PO QID PRN #30 cap 02/03/24 03/01/24 Rx Metoclopramide [Reglan] 5 mg PO TID PRN #20 tab 02/03/24 03/01/24 Rx Calcium Carbonate [Tums] 1,000 mg PO Q4HR PRN #0 tab 02/16/24 03/01/24 Rx Mesalamine [Asacol Hd] 800 mg PO TID 03/01/24 03/01/24 History Cholestyramine (with Sugar) 4 gm PO BID@1000,1800 PRN #30 03/05/24 Rx [Questran Packet] packet HYDROcodone/APAP 5-325MG [[place] 1 each PO Q6HR PRN 3 Days #12 tab 03/05/24 Rx 5-325] Nystatin 100,000 Unit/ml Susp 500,000 unit PO QID 7 Days #140 ml 03/05/24 Rx [Mycostatin Oral Susp] Allergies Allergy/AdvReac Type Severity Reaction Status Date / Time atorvastatin [From Lipitor] AdvReac MUSCLE Verified 03/01/24 19:22 CRAMPS hydrochlorothiazide AdvReac SEE COMMENT Verified 03/01/24 19:22 ropinirole [From Requip] AdvReac Hallucinati Verified 03/01/24 19:22 ons scopolamine AdvReac Hallucinati Verified 03/01/24 19:22 ons Physical Exam Vitals: Vital Signs Temp Pulse Resp BP Pulse Ox 03/11/24 06:00 105 H 16 163/91 95 03/11/24 01:09 98.6 F 94 18 149/90 98 Intake and Output 03/10/24 03/10/24 03/11/24 14:59 22:59 06:59 Output Total 650 Balance -650 Output: Urine 550 Emesis 100 Other: Voiding Method Urinal Weight 96.162 kg General appearance: The patient is alert, oriented, appears in no acute distress. HET: Head is normocephalic and atraumatic. Conjunctiva pink. Sclera anicteric. Neck: Supple without lymphadenopathy. Trachea midline. Heart: Regular. Lungs: Equal expansion, normal respiratory effort. Abdomen: Soft, epigastric tenderness, nondistended. Skin: No rashes. No jaundice. Extremities: Normal skin color and turgor. No pedal edema. Neurological: No focal deficits. Alert and oriented x3. Results CBC & Chem 7: 03/11/24 01:03/11/24 01: Labs: Abnormal Lab Results - Last 24 Hours (Table) 03/11/24 03/11/24 03/11/24 Range/Units : 01: 01:27 Sodium 133 L (137-145) mmol/L BUN 3 L (9-20) mg/dL Glucose 126 H (74-99) mg/dL POC Glucose (mg/dL) (70-110) mg/dL Phosphorus 2.2 L (2.5-4.5) mg/dL Urine Ketones 1+ H (Negative) 03/11/24 Range/Units 01:32 Sodium (137-145) mmol/L BUN (9-20) mg/dL Glucose (74-99) mg/dL POC Glucose (mg/dL) 119 H (70-110) mg/dL Phosphorus (2.5-4.5) mg/dL Urine Ketones (Negative) Assessment and Plan (1) Intractable nausea and vomiting Narrative/Plan: 73-year-old male well-known to gastroenterology with chronic intermittent nausea vomiting and chronic diarrhea has been having nausea vomiting and abdominal pain over the last 3 to 4 weeks duration. Patient has episodes that have occurred like this and is on home Reglan, Protonix and Carafate. He has had multiple endoscopies in the past usually with findings of esophagitis and gastritis. Unclear etiology at this time may be secondary to his IBS however we will proceed with further evaluation with upper endoscopy. Continue antiemetics, pain medication as needed. Current Visit: Yes Status: Acute Code(s): R11.2 - NAUSEA WITH VOMITING, UNSPECIFIED SNOMED Code(s): 930959801 (2) Abdominal pain Narrative/Plan: Discontinue mesalamine. Current Visit: No Status: Acute Code(s): R10.9 - UNSPECIFIED ABDOMINAL PAIN SNOMED Code(s): 33330294 Plan: 1. Continue symptomatic and supportive care 2. Discontinue mesalamine 3. Continue Carafate 4. Continue Protonix 40 mg twice daily 5. Continue antiemetics 6. Continue dicyclomine as ordered 7. N.p.o. 8. Will proceed with upper endoscopy with further recommendations forthcoming Thank you for allowing us to participate in the care of the patient, the GI service will sign off, gastroenterology will not be available at the hospital this weekend and through next week. Dr. Marla Subramanian I agree with the dictator's note, documented as a scribe by Devorah Garner.
[2024-03-11] MEDS ORDERED: METOCLOPRAMIDE 5 MG TAB PO PRN (09:42)
[2024-03-11] MEDS ORDERED: BUTALB/APAP/CAFF 50-325-40MG TAB PO PRN (09:42)
[2024-03-11] MEDS ORDERED: POTASSIUM CHLORIDE ER 20 MEQ TAB.ER PO PRN (09:42)
[2024-03-11] MEDS ORDERED: CHOLESTYRAMINE (WITH SUGAR) 4 GM PACKET PO PRN (10:00)
[2024-03-11] MEDS: SUCRALFATE 1 GM TAB PO SCH (12:45)
--- NOTE | 2024-03-11 15:29 | P.HPIM ---
History of Present Illness H&P Date: 03/11/24 History of present illness; patient is a 73-year-old gentleman with past medical history significant for coronary artery disease with stent to LAD and diagonal, hypertension, IBS, SVT status post ablation in 2011, hiatal hernia, who presented to ER because of nausea vomiting. Patient has been seen in the hospital multiple times over the last couple of months with similar episodes. Patient only follow-up with GI for his history of IBS and chronic nausea. Patient was discharged last Thursday after being treated for similar episode. Patient stated he was all right till yesterday when he started having abdominal pain which was generalized, cramping in nature, associate with nausea and vomiti ng. Patient last EGD was in May of this year showed linear ulcerations in the distal esophagus consistent with severe LA grade C reflux esophagitis, no evidence of Malka esophagitis and a benign-appearing duodenal stricture along the duodenal sweep. Last colonoscopy was 06/11/2020 that was normal colon. Because of the symptoms, patient presented back to the ER Initial lab work done in the ER showed WBC 9.6, hemoglobin 15.1, platelet count 367, sodium 133, potassium 3.6, BUN 3, creatinine 0.76, glucose 126, calcium 9, phosphorus 2.2, troponin 0.012 UA negative for infection Influenza A not detected Influenza B not detected RSV not detected COVID-19 not detected EKG done in the ER showed heart rate of 98, no ST segment elevation or depression seen, no T-wave inversions seen. CT head done showed no acute intracranial process Patient admitted to internal medicine service REVIEW OF SYSTEMS: CONSTITUTIONAL: No fever, no malaise, no fatigue. HEENT: No recent visual problems or hearing problems. Denied any sore throat. CARDIOVASCULAR: No chest pain, orthopnea, PND, no palpitations, no syncope. PULMONARY: No shortness of breath, no cough, no hemoptysis. GASTROINTESTINAL: As mentioned above NEUROLOGICAL: No headaches, no weakness, no numbness. HEMATOLOGICAL: Denies any bleeding or petechiae. GENITOURINARY: Denies any burning micturition, frequency, or urgency. MUSCULOSKELETAL/RHEUMATOLOGICAL: Denies any joint pain, swelling, or any muscle pain. ENDOCRINE: Denies any polyuria or polydipsia. The rest of the 14-point review of systems is negative. PHYSICAL EXAMINATION: GENERAL: The patient is alert and oriented x3, not in any acute distress. Well developed, well nourished. HEENT: Pupils are round and equally reacting to light. EOMI. No scleral icterus. No conjunctival pallor. Normocephalic, atraumatic. No pharyngeal erythema. No thyromegaly. CARDIOVASCULAR: S1 and S2 present. No murmurs, rubs, or gallops. PULMONARY: Chest is clear to auscultation, no wheezing or crackles. ABDOMEN: Soft, nontender, nondistended, normoactive bowel sounds. No palpable o rganomegaly. MUSCULOSKELETAL: No joint swelling or deformity. EXTREMITIES: No cyanosis, clubbing, or pedal edema. NEUROLOGICAL: Gross neurological examination did not reveal any focal deficits. SKIN: No rashes. Assessment and plan Abdominal pain Nausea and vomiting Coronary arteries history of stent placement SVT with history of radiofrequency ablation Hypertension Hyperlipidemia GERD History of duodenal ulcer/chronic duodenal stricture. Chronic back pain Chronic headache IBS Anxiety Monitor vital signs Monitor CBC Monitor CMP Ordered antiemetics ordered IV Protonix Ordered IV fluids Resume home meds Consult GI Labs and medication were reviewed.. Continue same treatment. Continue with symptomatic treatment. Resume home medication. Monitor labs and vitals. DVT and GI prophylaxis. Further recommendations as per clinical course of the patient Dictation was produced using [employer] dictation software. please excuse any grammatical, word or spelling errors. Past Medical History Past Medical History: Coronary Artery Disease (CAD), Chest Pain / Angina, Eye Disorder, GERD/Reflux, Hyperlipidemia, Hypertension, Myocardial Infarction ([place]), Osteoarthritis (OA) Additional Past Medical History / Comment(s): recent admission for nausea/vomiting/diarrhea, Neck pain, SVT with ablation, duodenal ulcers, chronic duodenal stricture, bilateral glaucoma, sinusitis, migraines, anemia, esophagitis,hiatal hernia, chronic back pain, past fx ribs/sternum Last Myocardial Infarction Date:: 1999 History of Any Multi-Drug Resistant Organisms: None Reported Past Surgical History: Cardiac Ablation, Cholecystectomy, Heart Catheterization With Stent Additional Past Surgical History / Comment(s): stent bilateral eyes 03/2018, PCI with 3 stents, sinus surgery, cataracts bilaterally with lens implants, EGDs/colonoscopies, Past Anesthesia/Blood Transfusion Reactions: No Reported Reaction Additional Past Anesthesia/Blood Transfusion Reaction / Comment(s): Pt has had past multiple transfusions without reaction. Date of Last Stent Placement:: 1999 Past Psychological History: Anxiety Smoking Status: Never smoker Past Alcohol Use History: None Reported Past Drug Use History: None Reported - Past Family History Father Additional Family Medical History / Comment(s): Father at the age of 68yrs from a ruptured aortic aneurysm. Mother Additional Family Medical History / Comment(s): Mother lived into her 80's. Brother(s) Family Medical History: Cancer Additional Family Medical History / Comment(s): The patient had 3 brothers. One from colon cancer with metastatic disease to the brain. One brother at age 79 from a myocardial infarction. He has 1 brother that is alive with history of skin cancer and diabetes. Sister(s) Additional Family Medical History / Comment(s): The patient is a total of 3 sisters. One in her 80s from myocardial infarction. One sister at age 58 from coronary artery disease and also had a valvular disorder. Patient has one sister alive with diabetes and multiple other medical conditions. Patient has 2 sons and 1 daughter with no major medical problems. Medications and Allergies Home Medications Medication Instructions Recorded Confirmed Type Acetaminophen [Tylenol 8 Hour] 650 mg PO Q4H PRN 01/25/24 03/11/24 History Amitriptyline HCl [Elavil] 12.5 mg PO HS 01/25/24 03/11/24 History Betamethasone Dipropionate 1 applic TOPICAL DAILY PRN 01/25/24 03/11/24 History [Diprolene 0.05% Ointment] Brimonidine Tartrate/Timolol 1 drop BOTH EYES BID 01/25/24 03/11/24 History [Brimonidine-Timolol 0.2%-0.5%] Butalb/Acetaminophen/Caffeine 1 cap PO Q4HR PRN 01/25/24 03/11/24 History [Fioricet 50-300-40 mg Capsule] Cholecalciferol [Vitamin D3 (25 25 mcg PO DAILY 01/25/24 03/11/24 History Mcg = 1000 Iu)] Clindamycin Gel [Cleocin T 1% Gel] 1 applic TOPICAL BID PRN 01/25/24 03/11/24 History Clobetasol Propionate/Emoll 1 applic TOPICAL BID PRN 01/25/24 03/11/24 History [Clobetasol Emulsion 0.05% Foam] Diclofenac Sodium Gel [Voltaren 1% 2 gm TOPICAL QID PRN 01/25/24 03/11/24 History Gel] Dicyclomine [Bentyl] 10 mg PO TID 01/25/24 03/11/24 History Escitalopram [Lexapro] 10 mg PO DAILY 01/25/24 03/11/24 History Furosemide [Lasix] 20 mg PO DAILY 01/25/24 03/11/24 History Gabapentin [Neurontin] 800 mg PO TID 01/25/24 03/11/24 History Ketoconazole 2% Shampoo [Nizoral] 1 applic TOPICAL DAILY PRN 01/25/24 03/11/24 History Lidocaine 5% Patch [Lidoderm 5% 1 patch TOPICAL DAILY PRN 01/25/24 03/11/24 History Patch] Losartan [Cozaar] 50 mg PO DAILY 01/25/24 03/11/24 History Metoprolol Tartrate [Lopressor] 25 mg PO BID 01/25/24 03/11/24 History Montelukast [Singulair] 10 mg PO HS 01/25/24 03/11/24 History Nystatin/Triamcin 1 applic TOPICAL BID PRN 01/25/24 03/11/24 History [Nystatin-Triamcinolone Cream] Ondansetron Odt [Zofran ODT] 4 mg PO Q4H PRN 01/25/24 03/11/24 History Pantoprazole [Protonix] 40 mg PO BID 01/25/24 03/11/24 History Potassium Chloride 20 meq PO DAILY PRN 01/25/24 03/11/24 History Simvastatin [Zocor] 40 mg PO HS 01/25/24 03/11/24 History Sodium Chloride Tab 1 gm PO BID 01/25/24 03/11/24 History Sucralfate [Carafate] 1 gm PO ACHS 01/25/24 03/11/24 History Testosterone Cypionate 50 mg IM Q14D 01/25/24 03/11/24 History [Depo-Testosterone] diazePAM [Valium] 5 mg PO HS PRN 01/25/24 03/11/24 History tadalafiL 10 mg PO DAILY 01/25/24 03/11/24 History Loperamide [Imodium] 2 mg PO QID PRN #30 cap 02/03/24 03/11/24 Rx Metoclopramide [Reglan] 5 mg PO TID PRN #20 tab 02/03/24 03/11/24 Rx Calcium Carbonate [Tums] 1,000 mg PO Q4HR PRN #0 tab 02/16/24 03/11/24 Rx Mesalamine [Asacol Hd] 800 mg PO TID 03/01/24 03/11/24 History Cholestyramine (with Sugar) 4 gm PO BID@1000,1800 PRN #30 03/05/24 03/11/24 Rx [Questran Packet] packet Nystatin 100,000 Unit/ml Susp 500,000 unit PO QID 7 Days #140 ml 03/05/24 03/11/24 Rx [Mycostatin Oral Susp] HYDROcodone/APAP 5-325MG [[place] 1 tab PO Q6HR PRN 03/11/24 03/11/24 History 5-325] Allergies Allergy/AdvReac Type Severity Reaction Status Date / Time atorvastatin [From Lipitor] AdvReac MUSCLE Verified 03/01/24 19:22 CRAMPS hydrochlorothiazide AdvReac SEE COMMENT Verified 03/01/24 19:22 ropinirole [From Requip] AdvReac Hallucinati Verified 03/01/24 19:22 ons scopolamine AdvReac Hallucinati Verified 03/01/24 19:22 ons Physical Exam Vitals: Vital Signs Temp Pulse Resp BP Pulse Ox 03/11/24 08:04 101 H 22 147/91 96 03/11/24 06:00 105 H 16 163/91 95 03/11/24 01:09 98.6 F 94 18 149/90 98 Intake and Output 03/10/24 03/11/24 03/11/24 22:59 06:59 14:59 Output Total 650 Balance -650 Output: Urine 550 Emesis 100 Other: Voiding Method Urinal Weight 96.162 kg Results CBC & Chem 7: 03/11/24 01:27 03/11/24 01:27 Labs: Abnormal Lab Results - Last 24 Hours (Table) 03/11/24 03/11/24 03/11/24 Range/Units 01:27 01:27 01:27 Sodium 133 L (137-145) mmol/L BUN 3 L (9-20) mg/dL Glucose 126 H (74-99) mg/dL POC Glucose (mg/dL) (70-110) mg/dL Phosphorus 2.2 L (2.5-4.5) mg/dL Urine Ketones 1+ H (Negative) 03/11/24 Range/Units 01:32 Sodium (137-145) mmol/L BUN (9-20) mg/dL Glucose (74-99) mg/dL POC Glucose (mg/dL) 119 H (70-110) mg/dL Phosphorus (2.5-4.5) mg/dL Urine Ketones (Negative)
[2024-03-11] MEDS ORDERED: ONDANSETRON 4 MG/2 ML VIAL ONE (15:55)
[2024-03-11] MEDS ORDERED: LIDOCAINE 2% (PF) 20 MG/ML 5 ML VIAL ONE (15:55)
[2024-03-11] MEDS ORDERED: PROPOFOL 10 MG/ML 20 ML VIAL IV ONE (15:55)
[2024-03-11] MEDS: IV FLUID CONTINUATION 1,000 ML IV ONE ×2 (15:59→16:12)
--- NOTE | 2024-03-11 16:11 | P.PCN ---
Date of Procedure: 03/11/24 Procedure(s) Performed: BRIEF HISTORY: Patient is a 73-year-old, pleasant, white male admitted to hospital with intractable nausea vomiting for the last 3 days duration. Has been in and out of the hospital several times over the last 2 months duration with epigastric pain, nausea vomiting and occasional diarrhea. PROCEDURE PERFORMED: Esophagogastroduodenoscopy biopsy. PREOPERATIVE DIAGNOSIS: Chronic intermittent nausea vomiting of 2 months duration. IV sedation per anesthesia. PROCEDURE: After informed consent was obtained, the patient was brought into the endoscopy unit. IV sedation was administered by Anesthesia under continuous monitoring. Initially the Olympus GIF-140 video endoscope was inserted into the mouth. Esophagus intubated without any difficulty. It was gradually advanced into the stomach and duodenum and carefully examined. The bulb and the second part of the duodenum appeared normal. The scope at this time was withdrawn to the stomach, adequately insufflated with air, and upon careful examination, mucosa of the antrum, body, cardia and the fundus appeared normal. The scope was then withdrawn into the esophagus. Hiatal hernia noted. The GE junction was located at 39 cm from the incisors. There were linear ulcerations in the distal esophagus with mucosal scarring extending from 35 to 40 cm from the incisors consistent with LA grade C reflux esophagitis. Biopsies were done from this area to rule out infectious esophagitis. The rest of the esophagus appeared normal. The patient tolerated the procedure well. IMPRESSION: 1. Linear ulcerations in the distal esophagus with mucosal scarring consistent with LA grade C reflux esophagitis status post biopsies to rule out infectious esophagitis. 2. Mild hiatal hernia. RECOMMENDATIONS: The findings of this examination were discussed with the patient as well as his family. He was advised to follow with the biopsy results. In the meantime he will continue with Protonix 40 mg twice daily as well as antiemetics as needed. Advance diet gradually.
[2024-03-11] MEDS: GABAPENTIN 400 MG CAP PO SCH (17:18)
[2024-03-11] MEDS: DICYCLOMINE 10 MG CAP PO SCH (17:19)
[2024-03-11] MEDS: METOPROLOL TARTRATE 25 MG TAB PO SCH (20:28)
[2024-03-11] MEDS: MONTELUKAST 10 MG TAB PO SCH (20:28)
[2024-03-11] MEDS: TIMOLOL 0.5% OPHTH DROPS 5 ML BTL BOTH EYES SCH (20:30)
[2024-03-11] MEDS: BRIMONIDINE TARTRATE 0.2% DROPS 5 ML BTL BOTH EYES SCH (20:30)
[2024-03-11] MEDS: SIMVASTATIN 40 MG PO SCH (20:31)
[2024-03-11] MEDS: PANTOPRAZOLE 40 MG/10 ML VIAL IV SCH (20:31)
[2024-03-11] MEDS ORDERED: NON FORMULARY DRUG (Brimonidine Tartrate/Timolol [Brimonidine-Timolol 0.2%-0.5%] 5 ML Drop BOTH EYES SCH (21:00)
[2024-03-11] MEDS: SODIUM CHLORIDE TAB 1 GM TAB PO SCH (21:25)
[2024-03-11] MEDS: AMITRIPTYLINE HCL 25 MG TAB PO SCH (21:25)
[2024-03-12] MEDS: ESCITALOPRAM 10 MG TAB PO SCH (08:23)
[2024-03-12] MEDS ORDERED: PANTOPRAZOLE 40 MG/10 ML VIAL IV SCH (09:00)
--- NOTE | 2024-03-12 12:50 | P.PN ---
Subjective Progress Note Date: 03/12/24 patient is a 73-year-old gentleman with past medical history significant for coronary artery disease with stent to LAD and diagonal, hypertension, IBS, SVT status post ablation in 2011, hiatal hernia, who presented to ER because of nausea vomiting. Patient has been seen in the hospital multiple times over the last couple of months with similar episodes. Patient only follow-up with GI for his history of IBS and chronic nausea. Patient was discharged last Thursday after being treated for similar episode. Patient stated he was all right till yesterday when he started having abdominal pain which was generalized, cramping in nature, associate with nausea and vomiting. Patient last EGD was in May of this year showed linear ulcerations in the distal esophagus consistent with severe LA grade C reflux esophagitis, no evidence of Malka esophagitis and a benign-appearing duodenal stricture along the duodenal sweep. Last colonoscopy was 06/11/2020 that was normal colon. Because of the symptoms, patient presented back to the ER Initial lab work done in the ER showed WBC 9.6, hemoglobin 15.1, platelet count 367, sodium 133, potassium 3.6, BUN 3, creatinine 0.76, glucose 126, calcium 9, phosphorus 2.2, troponin 0.012 UA negative for infection Influenza A not detected Influenza B not detected RSV not detected COVID-19 not detected EKG done in the ER showed heart rate of 98, no ST segment elevation or depression seen, no T-wave inversions seen. CT head done showed no acute intracranial process Patient admitted to internal medicine service 03/12. Patient seen and examined. EGD done showed linear ulcerations in the distal esophagus with mucosal scarring consistent with LA grade C reflux esophagitis status post biopsies to rule out infectious esophagitis,. Mild hiatal hernia. States he feels better. Still having nausea but no vomiting diet advanced to regular REVIEW OF SYSTEMS: CONSTITUTIONAL: No fever, no malaise,. CARDIOVASCULAR: No chest pain, no palpitations, no syncope. PULMONARY: No shortness of breath, no cough, GASTROINTESTINAL: As mentioned above NEUROLOGICAL: No headaches, no weakness, PHYSICAL EXAMINATION: GENERAL: The patient is alert and oriented x3, not in any acute distress. Well developed, well nourished. HEENT: Pupils are round and equally reacting to light. EOMI. No scleral icterus. No conjunctival pallor. Normocephalic, atraumatic. No pharyngeal erythema. No thyromegaly. CARDIOVASCULAR: S1 and S2 present. No murmurs, rubs, or gallops. PULMONARY: Chest is clear to auscultation, no wheezing or crackles. ABDOMEN: Soft, nontender, nondistended, normoactive bowel sounds. No palpable organomegaly. MUSCULOSKELETAL: No joint swelling or deformity. EXTREMITIES: No cyanosis, clubbing, or pedal edema. NEUROLOGICAL: Gross neurological examination did not reveal any focal deficits. SKIN: No rashes. Assessment and plan Abdominal pain Nausea and vomiting Coronary arteries history of stent placement SVT with history of radiofrequency ablation Hypertension Hyperlipidemia GERD History of duodenal ulcer/chronic duodenal stricture. Chronic back pain Chronic headache IBS Anxiety Monitor vital signs Monitor CBC Monitor CMP EGD done showed linear ulcerations in the distal esophagus with mucosal scarring consistent with LA grade C reflux esophagitis status post biopsies to rule out infectious esophagitis,. Mild hiatal hernia. Continue Protonix continue antiemetics advance diet as tolerated GI signed off Labs and medication were reviewed.. Continue same treatment. Continue with symptomatic treatment. Resume home medication. Monitor labs and vitals. DVT and GI prophylaxis. Further recommendations as per clinical course of the patient Dictation was produced using [employer] dictation software. please excuse any grammatical, word or spelling errors. Objective - Vital Signs Vital signs: Vital Signs Temp 98.5 F 03/12/24 07:00 Pulse 87 03/12/24 09:57 Resp 17 03/12/24 07:00 BP 174/92 03/12/24 07:00 Pulse Ox 95 03/12/24 07:00 FiO2 Intake & Output 03/11/24 03/12/24 03/12/24 18:59 06:59 18:59 Intake Total 100 118 Output Total 600 325 Balance 100 -600 -207 Weight 96.162 kg Intake: IV 100 Oral 118 Output: Urine 600 325 Other: Voiding Method Toilet Urinal # Voids 0 1 - Labs CBC & Chem 7: 03/11/24 01:27 03/11/24 01:27
[2024-03-13] MEDS: diazePAM 5 MG TAB PO PRN (02:28)
[2024-03-13 07:26] LABS: Appearance,Urine Clear (Clear); Bilirubin,Urine Negative (Negative); Blood,Urine Negative (Negative); Color,Urine Colorless; Glucose,Urine (UA) Negative (Negative); Ketones,Urine 1+ (Negative); Leukocyte Esterase,Urine Negative (Negative); Nitrite,Urine Negative (Negative); Protein,Urine Negative (Negative); Specific Gravity,Urine 1.004 (1.001-1.035); Urobilinogen,Urine <2.0 mg/dL (<2.0)
[2024-03-13] MEDS: HYDROcodone/APAP 5-325MG 1 EACH TAB PO PRN (08:32)
[2024-03-13 11:23] LABS: Basophils # (A) 0.1 k/uL (0-0.2); Basophils % (A) 1 %; Eosinophils # (A) 0.3 k/uL (0-0.7); Eosinophils % (A) 4 %; HCT 39.4 % (39.0-53.0); HGB 13.1 gm/dL (13.0-17.5); Lymphocytes # (A) 1.6 k/uL (1.0-4.8); Lymphocytes % (A) 22 %; MCH 30.3 pg (25.0-35.0); MCHC 33.3 g/dL (31.0-37.0); Mean Platelet Volume 7.3; Monocytes # (A) 0.6 k/uL (0-1.0); Monocytes % (A) 9 %; Neutrophils # (A) 4.7 k/uL (1.3-7.7); Neutrophils % (A) 63 %; Platelet Count 303 k/uL (150-450); RBC 4.34 m/uL (4.30-5.90); RDW 13.4 % (11.5-15.5); WBC 7.4 k/uL (3.8-10.6)
[2024-03-13 11:48] LABS: ALT 10 U/L (4-49); African American GFR (CKD) >90 (>60 ml/min/1.73 sqM); Albumin 3.2 g/dL (3.5-5.0); Albumin/Globulin Ratio 1.2; Anion Gap 8 mmol/L; Blood Urea Nitrogen <2 mg/dL (9-20); Calcium 8.4 mg/dL (8.4-10.2); Carbon Dioxide 26 mmol/L (22-30); Chloride 101 mmol/L (98-107); Globulin 2.7 g/dL; Glucose 150 mg/dL (74-99); Non-African American GFR(CKD) >90 (>60 ml/min/1.73 sqM); Sodium 135 mmol/L (137-145); Total Bilirubin 0.6 mg/dL (0.2-1.3); Total Protein 5.9 g/dL (6.3-8.2)
[2024-03-13 11:53] LABS: AST 31 U/L (17-59); Alkaline Phosphatase 54 U/L (38-126); Potassium 3.6 mmol/L (3.5-5.1)
--- NOTE | 2024-03-13 12:35 | P.PN ---
Subjective Progress Note Date: 03/13/24 patient is a 73-year-old gentleman with past medical history significant for coronary artery disease with stent to LAD and diagonal, hypertension, IBS, SVT status post ablation in 2011, hiatal hernia, who presented to ER because of nausea vomiting. Patient has been seen in the hospital multiple times over the last couple of months with similar episodes. Patient only follow-up with GI for his history of IBS and chronic nausea. Patient was discharged last Thursday after being treated for similar episode. Patient stated he was all right till yesterday when he started having abdominal pain which was generalized, cramping in nature, associate with nausea and vomiting. Patient last EGD was in May of this year showed linear ulcerations in the distal esophagus consistent with severe LA grade C reflux esophagitis, no evidence of Malka esophagitis and a benign-appearing duodenal stricture along the duodenal sweep. Last colonoscopy was 06/11/2020 that was normal colon. Because of the symptoms, patient presented back to the ER Initial lab work done in the ER showed WBC 9.6, hemoglobin 15.1, platelet count 367, sodium 133, potassium 3.6, BUN 3, creatinine 0.76, glucose 126, calcium 9, phosphorus 2.2, troponin 0.012 UA negative for infection Influenza A not detected Influenza B not detected RSV not detected COVID-19 not detected EKG done in the ER showed heart rate of 98, no ST segment elevation or depression seen, no T-wave inversions seen. CT head done showed no acute intracranial process Patient admitted to internal medicine service 03/12. Patient seen and examined. EGD done showed linear ulcerations in the distal esophagus with mucosal scarring consistent with LA grade C reflux esophagitis status post biopsies to rule out infectious esophagitis,. Mild hiatal hernia. States he feels better. Still having nausea but no vomiting diet advanced to regular 03/13. Patient seen and examined. at the bedside. States he is doing better. Still on clear liquid diet told him to advance her diet as tolerated. Vital signs stable REVIEW OF SYSTEMS: CONSTITUTIONAL: No fever, no malaise,. CARDIOVASCULAR: No chest pain, no palpitations, no syncope. PULMONARY: No shortness of breath, no cough, GASTROINTESTINAL: As mentioned above NEUROLOGICAL: No headaches, no weakness, PHYSICAL EXAMINATION: GENERAL: The patient is alert and oriented x3, not in any acute distress. Well developed, well nourished. HEENT: Pupils are round and equally reacting to light. EOMI. No scleral icterus. No conjunctival pallor. Normocephalic, atraumatic. No pharyngeal erythema. No thyromegaly. CARDIOVASCULAR: S1 and S2 present. No murmurs, rubs, or gallops. PULMONARY: Chest is clear to auscultation, no wheezing or crackles. ABDOMEN: Soft, nontender, nondistended, normoactive bowel sounds. No palpable organomegaly. MUSCULOSKELETAL: No joint swelling or deformity. EXTREMITIES: No cyanosis, clubbing, or pedal edema. NEUROLOGICAL: Gross neurological examination did not reveal any focal deficits. SKIN: No rashes. Assessment and plan Abdominal pain Nausea and vomiting Coronary arteries history of stent placement SVT with history of radiofrequency ablation Hypertension Hyperlipidemia GERD History of duodenal ulcer/chronic duodenal stricture. Chronic back pain Chronic headache IBS Anxiety Monitor vital signs Monitor CBC Monitor CMP EGD done showed linear ulcerations in the distal esophagus with mucosal scarring consistent with LA grade C reflux esophagitis status post biopsies to rule out infectious esophagitis,. Mild hiatal hernia. Continue Protonix continue antiemetics advance diet as tolerated GI signed off Labs and medication were reviewed.. Continue same treatment. Continue with symptomatic treatment. Resume home medication. Monitor labs and vitals. DVT and GI prophylaxis. Further recommendations as per clinical course of the patient Dictation was produced using [employer] dictation software. please excuse any grammatical, word or spelling errors. Objective - Vital Signs Vital signs: Vital Signs Temp 98.2 F 03/13/24 07:00 Pulse 85 03/13/24 07:00 Resp 17 03/13/24 07:00 BP 189/99 03/13/24 07:00 Pulse Ox 96 03/13/24 07:00 FiO2 Intake & Output 03/12/24 03/13/24 03/13/24 18:59 06:59 18:59 Intake Total 336 118 Output Total 325 1210 Balance 11 -1210 118 Intake: Intake, IV Titration 100 Amount IV Fluid Continuation 1, 100 000 ml @ 0 mls/hr IV .[facility] Rx#:[id number] Oral 236 118 Output: Urine 325 800 Post Void Residual 410 Other: Voiding Method Toilet Toilet Toilet Urinal Urinal Urinal # Voids 1 - Labs CBC & Chem 7: 03/13/24 10:17 03/13/24 10:17 Labs: Abnormal Lab Results - Last 24 Hours (Table) 03/13/24 03/13/24 Range/Units 06:50 10:17 Sodium 135 L (137-145) mmol/L BUN <2 L (9-20) mg/dL Creatinine 0.62 L (0.66-1.25) mg/dL Glucose 150 H (74-99) mg/dL Total Protein 5.9 L (6.3-8.2) g/dL Albumin 3.2 L (3.5-5.0) g/dL Urine Ketones 1+ H (Negative)
[2024-03-13] MEDS: TAMSULOSIN 0.4 MG CAP.ER.24H PO SCH (17:10)
[2024-03-14 07:40] VITALS: RESP 16
[2024-03-14 09:01] LABS: ALT 6 U/L (10-49); AST 17 U/L (14-35); Albumin 2.9 g/dL (3.8-4.9); Albumin/Globulin Ratio 1.45 Ratio (1.60-3.17); Alkaline Phosphatase 87 U/L (41-126); BUN/Creat Ratio <5.00 Ratio (12.00-20.00); Blood Urea Nitrogen <3.5 mg/dL (9.0-27.0); Calcium 8.1 mg/dL (8.7-10.3); Carbon Dioxide 26.5 mmol/L (21.6-31.8); Chloride 103 mmol/L (96-109); Glucose 156 mg/dL (70-110); Potassium 2.9 mmol/L (3.5-5.5); Sodium 139 mmol/L (135-145); Total Bilirubin 0.2 mg/dL (0.3-1.2); Total Protein 4.9 g/dL (6.2-8.2)
[2024-03-14 09:37] LABS: HCT 36.5 % (39.6-50.0); HGB 12.2 g/dL (13.0-17.0); MCH 30.1 pg (27.0-32.0); MCHC 33.4 g/dL (32.0-37.0); MCV 90.1 FL (80.0-97.0); Mean Platelet Volume 8.8 FL (9.5-12.2); NRBC Per 100 WBC 0 X 10*3/uL (0.00-0.01); Platelet Count 275 X 10*3/uL (140-440); RBC 4.05 X 10*6/uL (4.40-5.60); RDW 13.6 % (11.5-14.5); WBC 6.49 X 10*3/uL (4.50-10.00)
[2024-03-14 09:38] LABS: Basophils # (A) 0.08 X 10*3/uL (0.00-0.10); Basophils % (A) 1.2 %; Eosinophils % (A) 4.6 %; Lymphocytes # (A) 1.66 X 10*3/uL (0.90-5.00); Lymphocytes % (A) 25.6 %; Monocytes # (A) 0.84 X 10*3/uL (0.20-1.00); Monocytes % (A) 12.9 %; Neutrophils % (A) 55.5 %
[2024-03-14] MEDS ORDERED: Potassium Replacement Protocol 1 EACH MISC MISCELLANE PRN (09:41)
[2024-03-14] MEDS: POTASSIUM CHLORIDE ER 20 MEQ TAB.ER PO SCH (10:38)
[2024-03-14 14:45] VITALS: BP 131/74; PULSE 66; TEMP 98
--- NOTE | 2024-03-17 12:02 | P.DS ---
Providers Date of admission: 03/11/24 06:00 Expected date of discharge: 03/14/24 Attending physician: Gustavo Etienne Consults: 03/11/24 03:17 Consult Physician Urgent Consulting Provider: Leyla Subramanian Consult Reason/Comments: Intractable nausea and vomiting Do you want consulting provider notified?: Yes, Notify in am Primary care physician: Jocelin Khan Hospital Course: Final diagnosis Abdominal pain with nausea and vomiting status post EGD showing LA grade C reflux esophagitis Coronary arteries history of stent placement SVT with history of radiofrequency ablation Hypertension Hyperlipidemia GERD History of duodenal ulcer/chronic duodenal stricture. Chronic back pain Chronic headache IBS Anxiety GI prophylaxis DVT prophylaxis Full code Discharge disposition Patient is being discharged in a stable condition with guarded prognosis to home. Patient will follow-up with Dr. hKan in the outpatient setting upon discharge. Patient is to continue with current medications and outpatient follow-up with GI as scheduled. Total time taken is greater than 35 minutes. Hospital course patient is a 73-year-old gentleman with past medical history significant for coronary artery disease with stent to LAD and diagonal, hypertension, IBS, SVT status post ablation in 2011, hiatal hernia, who presented to ER because of nausea vomiting. Patient has been seen in the hospital multiple times over the last couple of months with similar episodes. Patient only follow-up with GI for his history of IBS and chronic nausea. Patient was discharged last Thursday after being treated for similar episode. Patient stated he was all right till yesterday when he started having abdominal pain which was generalized, cramping in nature, associate with nausea and vomiting. Patient last EGD was in May of this year showed linear ulcerations in the distal esophagus consistent with severe LA grade C reflux esophagitis, no evidence of Malka esophagitis and a benign-appearing duodenal stricture along the duodenal sweep. Last colonoscopy was 06/11/2020 that was normal colon. Because of the symptoms, patient presented back to the ER Initial lab work done in the ER showed WBC 9.6, hemoglobin 15.1, platelet count 367, sodium 133, potassium 3.6, BUN 3, creatinine 0.76, glucose 126, calcium 9, phosphorus 2.2, troponin 0.012 UA negative for infection Influenza A not detected Influenza B not detected RSV not detected COVID-19 not detected EKG done in the ER showed heart rate of 98, no ST segment elevation or depression seen, no T-wave inversions seen. CT head done showed no acute intracranial process Patient admitted to internal medicine service 03/12. Patient seen and examined. EGD done showed linear ulcerations in the distal esophagus with mucosal scarring consistent with LA grade C reflux esophagitis status post biopsies to rule out infectious esophagitis,. Mild hiatal hernia. States he feels better. Still having nausea but no vomiting diet advanced to regular 03/13. Patient seen and examined. at the bedside. States he is doing better. Still on clear liquid diet told him to advance her diet as tolerated. Vital signs stable 03/14/2024 Currently no reports of chest pain, shortness of breath, or palpitations. Patient is afebrile. No reports of nausea or vomiting and patient is tolerating diet. Patient diet has been advanced and tolerating and will continue with clear liquids advancing slowly to full liquids over the next few days with close outpatient follow-up with GI. Patient has been evaluated by Dr. Subramanian and cleared the patient for discharge once abdominal pain is improved. Patient follows with her outpatient and has an appointment arranged. Patient would like to go home. Please refer to other consultation notes for further HPI. Physical exam: Gen: This is a 73-year-old male who is awake, alert and oriented x 3, well- developed, elderly appearing HEENT: Head is atraumatic, normocephalic. Pupils equal, round. Sclerae is anicteric. NECK: Supple. No JVD. No lymphadenopathy. No thyromegaly. LUNGS: Clear to auscultation. No wheezes or rhonchi. No intercostal retractions. HEART: Regular rate and rhythm. No murmur. ABDOMEN: Soft. Bowel sounds are present. No masses. Minimal tenderness. EXTREMITIES: No pedal edema. No calf tenderness. NEUROLOGICAL: Patient is awake, alert and oriented x3. Cranial nerves 2 through 12 are grossly intact. Please refer to medication reconciliation sheet for a list of medications. The impression and plan of care has been dictated by Ayaka Lu, Nurse Practitioner as directed. Dr. Marcelo MD I have performed a history and examination and MDM of this patient, discussed the same with the dictator, and agree with the dictator's assessment and plan as written ,documented as a scribe. Based on total visit time, I have performed more than 50% of the visit. Patient Condition at Discharge: Fair Plan - Discharge Summary Discharge Rx Participant: No New Discharge Prescriptions: New Timolol 0.5% Ophth Soln [Timoptic 0.5% Ophth Soln] 1 drops BOTH EYES BID ml Tamsulosin [Flomax] 0.4 mg PO PC-SUPPER #30 cap Continue diazePAM [Valium] 5 mg PO HS PRN PRN Reason: Anxiety/Insomnia Testosterone Cypionate [Depo-Testosterone] 50 mg IM Q14D tadalafiL 10 mg PO DAILY Sodium Chloride Tab 1 gm PO BID Simvastatin [Zocor] 40 mg PO HS Potassium Chloride 20 meq PO DAILY PRN PRN Reason: Diarrhea Losartan [Cozaar] 50 mg PO DAILY Lidocaine 5% Patch [Lidoderm 5% Patch] 1 patch TOPICAL DAILY PRN PRN Reason: Pain Ketoconazole 2% Shampoo [Nizoral] 1 applic TOPICAL DAILY PRN PRN Reason: Skin Irritation Gabapentin [Neurontin] 800 mg PO TID Clobetasol Propionate/Emoll [Clobetasol Emulsion 0.05% Foam] 1 applic TOPICAL BID PRN PRN Reason: Skin Irritation Clindamycin Gel [Cleocin T 1% Gel] 1 applic TOPICAL BID PRN PRN Reason: Skin Irritation Butalb/Acetaminophen/Caffeine [Fioricet 50-300-40 mg Capsule] 1 cap PO Q4HR PRN PRN Reason: Migraine Headache Amitriptyline HCl [Elavil] 12.5 mg PO HS Acetaminophen [Tylenol 8 Hour] 650 mg PO Q4H PRN PRN Reason: Fever And/ Or Pain Brimonidine Tartrate/Timolol [Brimonidine-Timolol 0.2%-0.5%] 1 drop BOTH EYES BID Furosemide [Lasix] 20 mg PO DAILY Loperamide [Imodium] 2 mg PO QID PRN #30 cap PRN Reason: Diarrhea Calcium Carbonate [Tums] 1,000 mg PO Q4HR PRN #0 tab PRN Reason: Dyspepsia Nystatin 100,000 Unit/ml Susp [Mycostatin Oral Susp] 500,000 unit PO QID 7 Days #140 ml Cholestyramine (with Sugar) [Questran Packet] 4 gm PO BID@1000,1800 PRN #30 packet PRN Reason: Diarrhea Cholecalciferol [Vitamin D3 (25 Mcg = 1000 Iu)] 25 mcg PO DAILY Sucralfate [Carafate] 1 gm PO ACHS Pantoprazole [Protonix] 40 mg PO BID Ondansetron Odt [Zofran ODT] 4 mg PO Q4H PRN PRN Reason: Nausea And Vomiting Nystatin/Triamcin [Nystatin-Triamcinolone Cream] 1 applic TOPICAL BID PRN PRN Reason: Skin Irritation Montelukast [Singulair] 10 mg PO HS Metoprolol Tartrate [Lopressor] 25 mg PO BID Escitalopram [Lexapro] 10 mg PO DAILY Dicyclomine [Bentyl] 10 mg PO TID Diclofenac Sodium Gel [Voltaren 1% Gel] 2 gm TOPICAL QID PRN PRN Reason: Pain Betamethasone Dipropionate [Diprolene 0.05% Ointment] 1 applic TOPICAL DAILY PRN PRN Reason: Skin Irritation Metoclopramide [Reglan] 5 mg PO TID PRN #20 tab PRN Reason: Nausea Mesalamine [Asacol Hd] 800 mg PO TID Changed HYDROcodone/APAP 5-325MG [[place] 5-325] 1 tab PO Q6HR PRN #12 tab PRN Reason: Moderate Pain (Scale 4 To 6) Discharge Medication List Acetaminophen [Tylenol 8 Hour] 650 mg PO Q4H PRN 01/25/24 [History] Amitriptyline HCl [Elavil] 12.5 mg PO HS 01/25/24 [History] Betamethasone Dipropionate [Diprolene 0.05% Ointment] 1 applic TOPICAL DAILY PRN 01/25/24 [History] Brimonidine Tartrate/Timolol [Brimonidine-Timolol 0.2%-0.5%] 1 drop BOTH EYES BID 01/25/24 [History] Butalb/Acetaminophen/Caffeine [Fioricet 50-300-40 mg Capsule] 1 cap PO Q4HR PRN 01/25/24 [History] Cholecalciferol [Vitamin D3 (25 Mcg = 1000 Iu)] 25 mcg PO DAILY 01/25/24 [History] Clindamycin Gel [Cleocin T 1% Gel] 1 applic TOPICAL BID PRN 01/25/24 [History] Clobetasol Propionate/Emoll [Clobetasol Emulsion 0.05% Foam] 1 applic TOPICAL BID PRN 01/25/24 [History] Diclofenac Sodium Gel [Voltaren 1% Gel] 2 gm TOPICAL QID PRN 01/25/24 [History] Dicyclomine [Bentyl] 10 mg PO TID 01/25/24 [History] Escitalopram [Lexapro] 10 mg PO DAILY 01/25/24 [History] Furosemide [Lasix] 20 mg PO DAILY 01/25/24 [History] Gabapentin [Neurontin] 800 mg PO TID 01/25/24 [History] Ketoconazole 2% Shampoo [Nizoral] 1 applic TOPICAL DAILY PRN 01/25/24 [History] Lidocaine 5% Patch [Lidoderm 5% Patch] 1 patch TOPICAL DAILY PRN 01/25/24 [History] Losartan [Cozaar] 50 mg PO DAILY 01/25/24 [History] Metoprolol Tartrate [Lopressor] 25 mg PO BID 01/25/24 [History] Montelukast [Singulair] 10 mg PO HS 01/25/24 [History] Nystatin/Triamcin [Nystatin-Triamcinolone Cream] 1 applic TOPICAL BID PRN 01/25/24 [History] Ondansetron Odt [Zofran ODT] 4 mg PO Q4H PRN 01/25/24 [History] Pantoprazole [Protonix] 40 mg PO BID 01/25/24 [History] Potassium Chloride 20 meq PO DAILY PRN 01/25/24 [History] Simvastatin [Zocor] 40 mg PO HS 01/25/24 [History] Sodium Chloride Tab 1 gm PO BID 01/25/24 [History] Sucralfate [Carafate] 1 gm PO ACHS 01/25/24 [History] Testosterone Cypionate [Depo-Testosterone] 50 mg IM Q14D 01/25/24 [History] diazePAM [Valium] 5 mg PO HS PRN 01/25/24 [History] tadalafiL 10 mg PO DAILY 01/25/24 [History] Loperamide [Imodium] 2 mg PO QID PRN #30 cap 02/03/24 [Rx] Metoclopramide [Reglan] 5 mg PO TID PRN #20 tab 02/03/24 [Rx] Calcium Carbonate [Tums] 1,000 mg PO Q4HR PRN #0 tab 12/17/24 [Rx] Mesalamine [Asacol Hd] 800 mg PO TID 03/01/24 [History] Cholestyramine (with Sugar) [Questran Packet] 4 gm PO BID@1000,1800 PRN #30 packet 03/05/24 [Rx] Nystatin 100,000 Unit/ml Susp [Mycostatin Oral Susp] 500,000 unit PO QID 7 Days #140 ml 03/05/24 [Rx] HYDROcodone/APAP 5-325MG [[place] 5-325] 1 tab PO Q6HR PRN #12 tab 03/14/24 [Rx] Tamsulosin [Flomax] 0.4 mg PO PC-SUPPER #30 cap 03/14/24 [Rx] Timolol 0.5% Ophth Soln [Timoptic 0.5% Ophth Soln] 1 drops BOTH EYES BID ml 03/14/24 [Rx] Follow up Appointment(s)/Referral(s): Jocelin Khan MD [Primary Care Provider] - 1-2 days Leyla Subramanian MD [STAFF PHYSICIAN] - 1 Week Discharge Disposition: HOME SELF-CARE
== END 2024-03-14 17:53 | disposition home or self-care (01) | DRG 381 ==
LOC: EC 01:07 → 6NMEDSUR 06:00 → OBSVTOIN 06:00 → 6NMEDSUR 11:51
PROVIDERS: ADMIT Hospitalist; ATTEND Hospitalist
PROC: 0DB38ZX Excision of Lower Esophagus, Via Natural or Artificial Opening Endoscopic, Diagnostic (ICD-10-PCS; principal; 2024-03-11 07:30)
DX: K22.10 Ulcer of esophagus without bleeding (principal); I47.10 Supraventricular tachycardia, unspecified; K44.9 Diaphragmatic hernia without obstruction or gangrene; K21.00 Gastro-esophageal reflux disease with esophagitis, without bleeding; E78.5 Hyperlipidemia, unspecified; G43.909 Migraine, unspecified, not intractable, without status migrainosus; M19.90 Unspecified osteoarthritis, unspecified site; H40.9 Unspecified glaucoma; M54.9 Dorsalgia, unspecified; F41.9 Anxiety disorder, unspecified; G89.29 Other chronic pain; I10 Essential (primary) hypertension; R13.10 Dysphagia, unspecified; I25.10 Atherosclerotic heart disease of native coronary artery without angina pectoris; I25.2 Old myocardial infarction; K58.9 Irritable bowel syndrome, unspecified; Z79.899 Other long term (current) drug therapy; Z87.11 Personal history of peptic ulcer disease; Z87.19 Personal history of other diseases of the digestive system; Z95.5 Presence of coronary angioplasty implant and graft; Z20.822 Contact with and (suspected) exposure to COVID-19
CPT/HCPCS: 36415; 43239; 70450; 80053; 81003; 82150; 82175; 83690; 83735; 84100; 84484; 85025; 87086; 87636; 88305; 88312; 93005; 96361; 96374; 96375; 96376; 99285